=== PATIENT | female | born 1935 | race Caucasian/White ===

== ENCOUNTER → 2017-08-04 09:27 | Outpatient (CLI) | payer MEDICARE, SELFPAY ==
[2017-08-04 12:10] LABS: Anion Gap 8 (5-15); BUN 13 mg/dL (7-18); BUN/Creat Ratio 15.6 RATIO (10-20); Calcium,Total 9.1 mg/dL (8.5-10.1); Chloride 100 mmol/L (98-107); Creatinine, Serum 0.84 mg/dL (0.55-1.02); EST Glomerular Filtration Rate 70 mL/min (>60); Est Glom Filt Rate - Afr Amer 84 mL/min (>60); Glucose 106 mg/dL (74-106); Potassium 3.8 mmol/L (3.5-5.1); Sodium Level 134 mmol/L (136-145)
== END ==
PROVIDERS: Family Provider Family Medicine; PCP Family Medicine; Visit Provider Family Medicine
DX: E11.9 Type 2 diabetes mellitus without complications (principal)
CPT/HCPCS: 36415; 80048

== ENCOUNTER → 2018-02-23 08:37 | Outpatient (CLI) | payer MEDICARE, SELFPAY ==
[2018-02-23 10:45] LABS: ALB/GLOB Ratio 1.1 RATIO (0.9-2.4); AST(SGOT) 19 U/L (15-37); Alanine Aminotransfer ALT/SGPT 21 U/L (13-56); Albumin, Serum 3.7 g/dL (3.2-5.0); Alkaline Phosphatase 61 U/L (45-117); Anion Gap 8 (5-15); BUN 13 mg/dL (7-18); BUN/Creat Ratio 14.9 RATIO (10-20); Calcium,Total 8.6 mg/dL (8.5-10.1); Chloride 98 mmol/L (98-107); Creatinine, Serum 0.88 mg/dL (0.55-1.02); EST Glomerular Filtration Rate 66 mL/min (>60); Est Glom Filt Rate - Afr Amer 80 mL/min (>60); Globulin 3.4 g/dL (2.2-4.2); Glucose 101 mg/dL (74-106); Potassium 3.9 mmol/L (3.5-5.1); Protein, Total 7.1 g/dL (6.4-8.2); Sodium Level 135 mmol/L (136-145); Thyroid Stim Hormone (TSH) 1.26 uIU/mL (0.358-3.74)
== END ==
PROVIDERS: Family Provider Family Medicine; PCP Family Medicine; Visit Provider Family Medicine
DX: E11.9 Type 2 diabetes mellitus without complications (principal)
CPT/HCPCS: 36415; 80053; 84443

== ENCOUNTER → 2018-10-25 | Outpatient (CLI) | payer MEDICARE, SELFPAY ==
[2016-06-07 09:20] VITALS: BMI 24.7
--- NOTE | 2018-10-25 09:05 | RAD_ITS ---
STUDY: X-RAY - ABDOMEN/PELVIS REASON FOR EXAM: Female, 82 years old. Constipation TECHNIQUE: AP supine and upright views of the abdomen and pelvis. COMPARISON: None. FINDINGS: There is no bowel obstruction. There is air and stool to the level of the rectum. There is a large amount of stool in the colon, consistent with constipation. There is no free air. There are degenerative changes noted in the spine. RAD/Abd Inc Decub and/or Erect IMPRESSION: No bowel obstruction. Constipation. Electronically Signed: Bk Almeida, at 17:57 EDT Tel , Service support ,
== END | disposition home or self-care (01) ==
LOC: MTRAD 08:54
PROVIDERS: Family Provider Family Medicine; PCP Family Medicine; Referring Provider Family Medicine; Visit Provider Family Medicine
DX: K59.00 Constipation, unspecified (principal)
CPT/HCPCS: 74019

== ENCOUNTER → 2019-01-07 07:31 | Outpatient (CLI) | payer MEDICARE, SELFPAY ==
--- NOTE | 2019-01-07 07:34 | CDU_ITS ---
Reason For Study: Carotid Stenosis Rt. Velocities/BP Lt. Velocities/BP Prox CCA 61.7/10.8 cm/sec. Prox CCA 73/8.8 cm/sec. Mid CCA 76/12.1 cm/sec. Mid CCA 65.5/9.7 cm/sec. Dist CCA 66.9/12.1 cm/sec. Dist CCA 73/9.7 cm/sec. Prox ICA 71.6/12.6 cm/sec. Prox ICA 51.3/6.9 cm/sec. Mid ICA 86.3/18.8 cm/sec. Mid ICA 79.4/10.2 cm/sec. Dist ICA 103.5/22.5 cm/sec. Dist ICA 87.1/13.5 cm/sec. Rt. ICA/CCA = 1.5. Lt. ICA/CCA = 1.2. Prox ECA 124.8 cm/sec. Prox ECA 82.7 cm/sec. Rt. Vert. 30.1/4.5 cm/sec. Lt. Vert. 59.7/9.1 cm/sec. Right Extracranial There is homogeneous, smooth atherosclerotic plaque noted in the right common carotid artery. There is heterogeneous, irregular atherosclerotic plaque noted in the right internal carotid artery. The atherosclerotic plaque causes acoustic shadowing. There is heterogeneous, irregular atherosclerotic plaque noted in the right external carotid artery. Antegrade flow is noted in the right vertebral artery. Left Extracranial There is homogeneous, smooth atherosclerotic plaque noted in the left common carotid artery. There is heterogeneous, irregular atherosclerotic plaque noted in the left internal carotid artery. There is homogeneous, smooth atherosclerotic plaque noted in the left external carotid artery. Antegrade flow is noted in the left vertebral artery. Procedure Carotid Duplex 57593. Exam performed in department. Interpretation Summary Irregular calcific plague at the proximal right internal and external carotids. <50% stenosis right internal carotid <50% stenosis right external carotid Post-operative changes left carotid bulb and proximal internal carotid with <50% stenosis <50% stenosis left external carotid Patent and antegrade vertebrals bilaterally Ordering Physician: Noble Ball Referring Physician: Mc Marks MD Performed By: Daina Arvizu RVT
== END ==
PROVIDERS: Family Provider Family Medicine; PCP Family Medicine; Referring Provider Surgery; Visit Provider Surgery
DX: I65.23 Occlusion and stenosis of bilateral carotid arteries (principal)
CPT/HCPCS: 93880

== ENCOUNTER → 2019-04-15 08:04 | Outpatient (CLI) | payer MEDICARE, SELFPAY ==
[2019-02-01 14:01] VITALS: BMI 24.7
[2019-04-15 10:40] LABS: ALB/GLOB Ratio 1.1 RATIO (0.9-2.4); AST(SGOT) 18 U/L (15-37); Alanine Aminotransfer ALT/SGPT 21 U/L (13-56); Albumin, Serum 3.9 g/dL (3.2-5.0); Alkaline Phosphatase 68 U/L (45-117); Anion Gap 6 (5-15); BUN 16 mg/dL (7-18); BUN/Creat Ratio 19.8 RATIO (10-20); Calcium,Total 9.3 mg/dL (8.5-10.1); Chloride 99 mmol/L (98-107); Cholesterol 245 mg/dL (200); Creatinine, Serum 0.81 mg/dL (0.55-1.02); EST Glomerular Filtration Rate 72 mL/min (>60); Est Glom Filt Rate - Afr Amer 87 mL/min (>60); Globulin 3.5 g/dL (2.2-4.2); Glucose 113 mg/dL (74-106); High Density Lipoprotein 61 mg/dL; Potassium 3.9 mmol/L (3.5-5.1); Protein, Total 7.4 g/dL (6.4-8.2); Sodium Level 135 mmol/L (136-145); Thyroid Stim Hormone (TSH) 1.79 uIU/mL (0.358-3.74); Triglycerides 227 mg/dL; Very Low Density Lipoprotein 45 mg/dL (5-40)
== END ==
PROVIDERS: Family Provider Family Medicine; PCP Family Medicine; Referring Provider Family Medicine; Visit Provider Family Medicine
DX: E11.9 Type 2 diabetes mellitus without complications (principal)
CPT/HCPCS: 36415; 80053; 80061; 84443

== ENCOUNTER 2019-05-10 09:16 | Observation (INO) | payer MEDICARE, SELFPAY ==
[2019-02-01 14:01] VITALS: BMI 24.7
[2019-04-28 13:43] VITALS: BMI 24.5
[2019-05-10] VITALS (13 sets, daily range): BP systolic 104–175; BP diastolic 46–74; PULSE 52–87; RESP 16–18; TEMP 36.4–37; O2SAT 94–100; BMI 24.3
[2019-05-10] MEDS: Lactated Ringers 1,000 ML 100 ML IV (06:21)
[2019-05-10 06:25] LABS: Bedside Glucose 109 mg/dL (70-110)
[2019-05-10 06:25] LABS: Hematocrit 36.2 % (37-47); Hemoglobin 11.8 g/dL (12.0-15.0); Mean Corp Hgb Conc 32.6 g/dL (32-36); Mean Corpuscular Hgb 29.8 pg (27.0-32.0); Mean Corpuscular Volume 91.4 fL (81-99); Mean Platelet Vol. 8.6 fl (6.2-12.0); Platelet Count 306 K/mm3 (150-450); RBC Distribution Width CV 12.7 % (11.6-14.6); RBC Distribution Width SD 41.9 fl (35.1-43.9); Red Blood Count 3.96 M/mm3 (4.2-5.4); White Blood Count 6.7 K/mm3 (4.4-11.0)
--- NOTE | 2019-05-10 07:43 | OP.PCM_ITS ---
Problem List (1) Cystocele Status: Acute (2) Rectocele Status: Acute (3) Incomplete prolapse of vaginal vault Status: Acute Comment: puja consult. Report of Operation Date of Procedure: 05/10/19 Pre-Operative Diagnosis: Cystocele, rectocele, vaginal vault prolapse Post-Operative Diagnosis: Same Surgery/Procedure Performed:: Anterior repair with dermis, bilateral sacrospinous ligament fixation, posterior repair, cystoscopy Type of Anesthesia:: General Special Medications: Ancef Specimen's removed: none Estimated Blood Loss (mL): 25cc Description of Procedure: The patient is an 83-year-old female with vaginal vault prolapse, cystocele and rectocele who presented to the office for evaluation and management. After discussing the risks benefits and alternatives, she decided to proceed with surgical intervention. She underwent urodynamics and office cystoscopy in preparation. She was seen by cardiology and a low risk assessment was given. Informed consent was obtained. She was taken to the operating room and placed on the operating room table. Anesthesia monitored the head, neck, airway, IV access and vital signs throughout the case. Once anesthesia was administered, the patient was prepped and draped in usual sterile fashion. She was in dorsal lithotomy position. A White catheter was inserted and the bladder was drained. She was placed into Trendelenburg. The anterior vaginal wall was injected submucosally with 10 cc of 1% lidocaine with epinephrine. A midline incision vertical approximately 2 cm in length was made. Sharp and blunt dissection was then performed until bilaterally the ischial spines and sacrospinous ligaments were identified and cleaned from surrounding tissues. Using the Capio device, sutures were placed through the sacrospinous ligaments and were brought through the dermis graft and then full-thickness through the vaginal apex. The remainder of the dermis was sutured into position using 2-0 Vicryl. The midline incision was then closed with running interlocking 2-0 Vicryl. The Ethibond sutures were tied and the prolapse was resolved. At this time attention was turned to the posterior vaginal wall which was injected submucosally with 1% lidocaine with epinephrine. A midline incision was made and sharp and blunt dissection was then performed until the rectovaginal fascia was identified bilaterally. This was brought together in a 2 layer closure using interrupted Vicryl. The perineal body was reinforced with 2-0 Vicryl. The vaginal mucosa was then closed with running interlocking 2-0 Vicryl. A cystourethroscopy was then performed revealing no entrance into the urinary bladder or urethra with foreign material. There were no abnormalities of the bladder mucosa. Bilateral ureteral jets were observed. The White catheter was then replaced. The vagina was filled with Premarin cream and vaginal packing. The patient was then awakened and taken to the recovery room in good condition. There were no complications during this procedure. Grafts/Implants Used: Dermis ([place]) - Complications None - Admit VTE Documentation VTE Present on Admission: Yes VTE Mechan Device Prophylaxis: SCD's VTE Pharm Prophylaxis ordered?: Yes
[2019-05-10] MEDS: Cefazolin 2 GM in 0.9% Normal Saline 100 ML IV (07:59)
[2019-05-10] MEDS: Lubricating Jelly 60 GM Tube 30 GM TOPICAL (08:00)
[2019-05-10 08:01] LABS: Hemoglobin A1c 6.1 % (4.2-6.3)
[2019-05-10] MEDS: Estrogens,Conj. 1 Tube 1 DOSE (09:10)
--- NOTE | 2019-05-10 09:42 | DCINST_ITS ---
Discharge Diet: No Restrictions Discharge Activity: May Not Drive, May Shower - no tub bathing, no swimming May resume sexual activity in: 8 weeks Additional Activity Instructions:: no strenuous activity or exercise. no lifting over 5 pounds, no vacuuming Call your doctor if your incision/area has: Continuous Slow Oozing, Sudden Increased Bleeding, Foul Smelling Discharge Call your doctor if you observe: Fever of 101 or Higher, Inability to urinate, Inability to have a bowel movement, Calf discomfort, Uncontrolled pain Allergies/Adverse Reactions: Allergies pravastatin Adverse Reaction (Severe, Verified 05/04/19 09:24) myalgias Sulfa (Sulfonamide Antibiotics) Adverse Reaction (Mild, Verified 05/04/19:24) it didnt work atorvastatin Adverse Reaction (Verified 05/04/19:24) myalgias Medications to take at Discharge Aspirin [Aspirin, Baby] 81 mg PO DAILY@0800 06/07/16 Clopidogrel Bisulfate [Plavix] 75 mg PO DAILY 06/07/16 Hydrochlorothiazide [Hctz] 25 mg PO DAILY 06/07/16 metFORMIN HCl [Glucophage] 500 mg PO BIDCM 06/07/16 coenzyme Q10 10 mg capsule 10 mg PO ONCE 01/11/19 nitroglycerin 0.4 mg sublingual tablet 0.4 mg SUBLINGUAL Q5-15M 01/11/19 multivitamin 1 tab PO DAILY 04/28/19 omega-3 fatty acids 1,000 mg capsule 1,000 mg PO DAILY 04/28/19 lisinopril 20 mg tablet 20 mg PO BID tab 04/29/19 metoprolol tartrate 25 mg tablet 25 mg PO TID tab 04/29/19 Primary Care Physician: Tre Marks MD [Primary Care Provider] - Test Results: Test results from this visit will be discussed in further detail at your follow- up appointment, if applicable. Please Follow Up With: Denisse Brown MD When: call office for appt Proposed Discharge Date: 05/11/19
[2019-05-10 09:46] LABS: Bedside Glucose 140 mg/dL (70-110)
[2019-05-10] MEDS: Ketorolac 15 MG/ML Vial IV ×2 (10:01→23:35)
[2019-05-10] MEDS: Dextrose 5%-Lactated Ringers 1,000 ML 100 ML IV ×2 (10:56→20:10)
[2019-05-10 12:30] LABS: Bedside Glucose 143 mg/dL (70-110)
[2019-05-10] MEDS: Metoprolol Tartrate 25 MG Tablet PO ×2 (13:06→21:06)
[2019-05-10] MEDS: hydroCHLOROthiazide 25 MG Tablet PO (13:06)
[2019-05-10 17:11] LABS: Bedside Glucose 129 mg/dL (70-110)
[2019-05-10] MEDS: metFORMIN HCl 500 MG Tablet PO (17:59)
[2019-05-10] MEDS: Lisinopril 20 MG Tablet PO (21:06)
[2019-05-10] MEDS: Cephalexin 500 MG Capsule PO (21:06)
[2019-05-10 21:16] LABS: Bedside Glucose 165 mg/dL (70-110)
[2019-05-10] MEDS: 0.9% Saline Lock 10 ML Syringe IV (23:37)
[2019-05-11 02:10] VITALS: BP 151/59; PULSE 65; RESP 16; TEMP 36.3; O2SAT 97
[2019-05-11 05:42] VITALS: BP 163/59; PULSE 60; RESP 16; TEMP 36.4; O2SAT 97
[2019-05-11 05:43] VITALS: PULSE 60
[2019-05-11] MEDS: Metoprolol Tartrate 25 MG Tablet PO ×2 (05:43→15:11)
[2019-05-11] MEDS: 0.9% Saline Lock 10 ML Syringe IV (05:44)
[2019-05-11] MEDS: Enoxaparin 40 MG/0.4 ML Syringe SC (05:44)
[2019-05-11 07:26] LABS: Bedside Glucose 117 mg/dL (70-110)
--- NOTE | 2019-05-11 08:18 | PCM.PN.BLA ---
Progress Note Sofia is sitting up in bed comfortable in no acute distress. She did well overnight and was up to the side chair. No nausea or vomiting, pain is controlled. She is reporting a significant amount of flatus, she did have coleslaw for dinner. White catheter removed, vaginal packing removed. Assessment and plan Postop day #1 vaginal reconstruction no sling Trial of void today Home later today STROKE Vital Signs/Narrative: Vital Signs Temp Pulse Resp BP Pulse Ox 05/11/19 05:43 60 05/11/19 05:42 97.6 F L 60 16 163/59 H 97
[2019-05-11] MEDS: HYDROcodone Bitartrate/Apap 5/325 Tablet PO (08:42)
[2019-05-11] MEDS: metFORMIN HCl 500 MG Tablet PO ×2 (08:43→16:39)
[2019-05-11] MEDS: Aspirin 81 MG TAB.CHEW PO (08:43)
[2019-05-11] MEDS: Cephalexin 500 MG Capsule PO (08:43)
[2019-05-11] MEDS: hydroCHLOROthiazide 25 MG Tablet PO (08:43)
[2019-05-11] MEDS: Lisinopril 20 MG Tablet PO (08:44)
[2019-05-11] MEDS: Clopidogrel Bisulfate 75 MG Tablet PO (08:44)
[2019-05-11 08:45] VITALS: BP 128/52; PULSE 52; RESP 18; TEMP 36.7; O2SAT 98
--- NOTE | 2019-05-11 09:51 | CASEMGMT ---
Intro role of CM to patient and [facility] form explained re: Observation status for treatment of surgical procedure. Explained hospitalization will be paid per?[facility] policy for Outpatient billing?and condition will continue to be evaluated for Inpt necessity. Also let pt know that [facility] sends paper in the billing packet with their phone number if questions arise. Discussed Pharmacy section of [facility] form and self administered medication guideline.? Pt verbalizes understanding and does not have further questions. Form signed and placed in chart, copy to pt. LEOBARDO RAMIRES BSN CM
[2019-05-11 12:10] LABS: Bedside Glucose 162 mg/dL (70-110)
[2019-05-11 15:10] VITALS: BP 144/63; PULSE 67; RESP 16; TEMP 37.2; O2SAT 98
[2019-05-11 15:11] VITALS: PULSE 67
[2019-05-11 17:06] LABS: Bedside Glucose 108 mg/dL (70-110)
== END 2019-05-11 18:19 | disposition home or self-care (01) ==
LOC: SDC 09:42 → MS3 09:42
PROVIDERS: Anesthesiology; Admitting Provider Urology; Family Provider Family Medicine; PCP Family Medicine; Referring Provider Urology; Visit Provider Urology
PROC: (CPT 57260; principal; 2019-05-10 07:15)
DX: N99.3 Prolapse of vaginal vault after hysterectomy (principal); N95.2 Postmenopausal atrophic vaginitis; I45.10 Unspecified right bundle-branch block; I10 Essential (primary) hypertension; I25.10 Atherosclerotic heart disease of native coronary artery without angina pectoris; E11.51 Type 2 diabetes mellitus with diabetic peripheral angiopathy without gangrene; Z87.891 Personal history of nicotine dependence; Z79.899 Other long term (current) drug therapy; Z95.5 Presence of coronary angioplasty implant and graft; Z79.84 Long term (current) use of oral hypoglycemic drugs; Z79.82 Long term (current) use of aspirin; Z79.02 Long term (current) use of antithrombotics/antiplatelets; M19.90 Unspecified osteoarthritis, unspecified site
CPT/HCPCS: 57260; 57282; 36415; 82962; 83036; 85027; 99251; J7120; A4216; G0463; J2405

== ENCOUNTER → 2019-05-13 11:08 | Outpatient (CLI) | payer MEDICARE, SELFPAY ==
[2019-05-10 06:12] VITALS: BMI 24.3
--- NOTE | 2019-05-13 11:12 | RAD_ITS ---
STUDY: X-RAY - ACUTE ABDOMINAL SERIES REASON FOR EXAM: Female, 83 years old. BLADDER SURGERY 3 DAYS AGO, PAIN, NAUSEA TECHNIQUE: Single view of the chest. Supine, and erect view(s) of the abdomen were obtained. COMPARISON: None. FINDINGS: The lungs are clear and expanded. Normal size heart. Normal mediastinum and sujey. Normal visualized pulmonary arteries. There is atherosclerotic calcification of the aortic arch with tortuosity. There is a non-specific bowel gas pattern. The soft tissue structures of the abdomen and pelvis are unremarkable. There are diffuse degenerative changes of the visualized lumbar spine. There are vascular iliofemoral calcifications. RAD/Acute Abd Inc Chest (Portable) IMPRESSION: 1. Nonobstructive bowel gas pattern. 2. Nonacute Chest xray. 3. Degenerative changes of the lumbar spine. 4. Atherosclerosis. Electronically Signed: Rasta Johnston MD (Brooks) at 11:38 EST , Service support ,
[2019-05-13 14:01] LABS: Hematocrit 34.5 % (37-47); Hemoglobin 12.3 g/dL (12.0-15.0); Mean Corp Hgb Conc 35.7 g/dL (32-36); Mean Corpuscular Hgb 29.6 pg (27.0-32.0); Mean Corpuscular Volume 83.1 fL (81-99); Mean Platelet Vol. 9.4 fl (6.2-12.0); Platelet Count 365 K/mm3 (150-450); RBC Distribution Width CV 12.2 % (11.6-14.6); RBC Distribution Width SD 37.2 fl (35.1-43.9); Red Blood Count 4.15 M/mm3 (4.2-5.4); White Blood Count 11.9 K/mm3 (4.4-11.0)
[2019-05-13 14:16] LABS: Scan Indicated on CBC? Y/N NO
[2019-05-13 14:20] LABS: Anion Gap 10 (5-15); BUN 9 mg/dL (7-18); BUN/Creat Ratio 10.7 RATIO (10-20); Calcium,Total 8.7 mg/dL (8.5-10.1); Chloride 76 mmol/L (98-107); Creatinine, Serum 0.84 mg/dL (0.55-1.02); EST Glomerular Filtration Rate 69 mL/min (>60); Est Glom Filt Rate - Afr Amer 83 mL/min (>60); Glucose 158 mg/dL (74-106); Sodium Level 112 mmol/L (136-145)
== END ==
PROVIDERS: Family Provider Family Medicine; PCP Family Medicine; Referring Provider Urology; Visit Provider Urology
DX: N81.6 Rectocele (principal); N81.10 Cystocele, unspecified
CPT/HCPCS: 36415; 74022; 80048; 85027

== ENCOUNTER 2019-05-13 15:19 | Inpatient (IN) | payer MEDICARE, SELFPAY ==
[2019-05-10 06:12] VITALS: BMI 24.3
[2019-05-13] VITALS (19 sets, daily range): BP systolic 138–219; BP diastolic 47–115; PULSE 64–82; RESP 10–24; TEMP 36.7–36.9; O2SAT 95–100; BMI 24.7; BMI 24.8; BMI 24.6
--- NOTE | 2019-05-13 15:39 | EKG12_ITS ---
Test Reason : Blood Pressure : / mmHG Vent. Rate : 072 BPM Atrial Rate : 072 BPM P-R Int : 154 ms QRS Dur : 134 ms QT Int : 452 ms P-R-T Axes : 075 079 076 degrees QTc Int : 494 ms Sinus rhythm with occasional Premature ventricular complexes Right bundle branch block Septal infarct , age undetermined Abnormal ECG Confirmed by JENN HANNON, ELTON ([id number]), multimedia editor PEYTON ARMENDARIZ ([id number]) on 05/16/2019 1:35:02 PM Referred By: Henrietta Howell Confirmed By:ELTON BARAJAS MD
--- NOTE | 2019-05-13 15:41 | ED.DCSUM_ITS ---
- ER Visit Summary Date of Service: 05/13/19 Chief Complaint: Abnormal labs History of Present Illness: The patient is a 83 F presenting for abnormal labs. Patient had surgery per Dr. Brown 2 days ago for cystocele, rectocele, vaginal prolapse. She was seen for follow-up in the office today. She was complaining of generalized weakness and fatigue. Outpatient blood work was obtained and showed a sodium of 112, potassium 3.0. Abdominal series was obtained which was unremarkable. She was advised to go to the ED for admission. Family states that she has had unsteady gait. She denies falls. She has nausea, vomiting, diarrhea. Denies blood in her stool. Denies fever. Denies chest pain or saira rtness of breath. Denies other complaints. Physical Examination: Vitals are stable. Patient is afebrile. Alert no acute distress. HEENT exam is unremarkable. Neck is supple. Lungs are clear and equal bilaterally. Heart is regular rate and rhythm. Abdomen is soft nontender nondistended. Extremities are unremarkable. Skin is warm and dry. No focal neurologic deficit. Remainder of exam is unremarkable. Emergency Department Course and Treatment: Patient was given IV fluids, Zofran. Outpatient labs were reviewed and show white count 11.9, chemistries show sodium 112, potassium 3.0, glucose 158. Discussed with hospitalist for admission. Disposition: Admission Impression: Hyponatremia This note was generated with Pro[employer]eno dictation software. It may contain incorrect words, spelling, and punctuation that were not noted in review of the chart prior to signing ED Disposition - Plan for ED Patient: Referrals: Tre Marks MD [Primary Care Provider] -
--- NOTE | 2019-05-13 16:04 | HP.PCM_ITS ---
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 (11) Peripheral arterial occlusive disease Status: Chronic History of Present Illness Date of Admission: 05/13/19 Chief Complaint: Intractable nausea, vomiting. The patient is a 83 year old F who presents emergency room due to intractable nausea and vomiting. Patient underwent pelvic floor reconstruction secondary to cystocele, rectocele and vaginal prolapse 05/10/[address] Brown. Following discharge home, patient reports she developed nausea and vomiting. She has not been able to keep down food or liquids. She denies diarrhea. Denies dizziness, lightheadedness. Denies confusion. Reports tremors. Denies fever. Denies abdominal pain or urinary symptoms. She states her rectum area is tender following surgery. Patient states she was on cephalexin prophylactically following surgery however she was told to stop taking this. She has a past medical history of hypertension, CAD status post stent, type 2 diabetes mellitus, PAD, carotid stenosis. Past Medical History Past Medical History (Chronic Problems): Chronic Problems (Last Reviewed 04/28/19 @ 13:51 by Melody Mckeon) Cystocele (Chronic) Rectocele (Chronic) Type 2 diabetes mellitus (Chronic) Presence of stent in coronary artery (Chronic ~07/04/11) PCI/stent to LAD 2007; PCI/GUDELIA to instent restenosis of the LAD 07/04/11 Essential hypertension (Chronic) RBBB (right bundle branch block) (Chronic) Atherosclerotic heart disease of [place] coronary artery without angina pectoris (Chronic) PAD (peripheral artery disease) (Chronic) Carotid stenosis, bilateral (Chronic) Incomplete prolapse of vaginal vault (Chronic) puja consult. Peripheral arterial occlusive disease (Chronic) Medical History: Medical History (Last Reviewed 12/05/19 @ 13:51 by Melody Mckeon) Type 2 diabetes mellitus (Chronic) E11.9 Presence of stent in coronary artery (Chronic) Onset Date: ~07/04/11 Z95.5 PCI/stent to LAD 2007; PCI/GUDELIA to instent restenosis of the LAD 07/04/11 Essential hypertension (Chronic) I10 RBBB (right bundle branch block) (Acute) I45.10 Atherosclerotic heart disease of [place] coronary artery without angina pectoris (Chronic) I25.10 PAD (peripheral artery disease) (Chronic) I73.9 Carotid stenosis, bilateral (Chronic) I65.23 Peripheral arterial occlusive disease (Chronic) I77.9 Hyperlipidemia E78.5 TIA (transient ischemic attack) G45.9 Osteoarthritis M19.90 BBB (bundle branch block) I45.4 Carotid stenosis, bilateral (Inactive) I65.23 Diabetes E11.9 HTN (hypertension) I10 Allergies pravastatin Adverse Reaction (Severe, Verified 05/13/19 15:20) myalgias Sulfa (Sulfonamide Antibiotics) Adverse Reaction (Mild, Verified 05/13/19 15:20) it didnt work atorvastatin Adverse Reaction (Verified 05/13/19 15:20) myalgias Home Medications: Ambulatory Orders Medication Instructions Recorded Aspirin [Aspirin, Baby] 81 mg PO DAILY@0800 06/07/16 Clopidogrel Bisulfate [Plavix] 75 mg PO DAILY 06/07/16 Hydrochlorothiazide [Hctz] 25 mg PO DAILY 06/07/16 coenzyme Q10 10 mg capsule 10 mg PO ONCE 01/11/19 nitroglycerin 0.4 mg sublingual 0.4 mg SUBLINGUAL Q5-15M 01/11/19 tablet multivitamin 1 tab PO DAILY 04/28/19 omega-3 fatty acids 1,000 mg 1,000 mg PO DAILY 04/28/19 capsule lisinopril 20 mg tablet 20 mg PO BID tab 04/29/19 metoprolol tartrate 25 mg tablet 25 mg PO TID tab 04/29/19 Cephalexin 500 mg PO BID 05/13/19 Metformin HCl [Metformin HCl ER] 500 mg PO BID 05/13/19 Ondansetron [Zofran] 8 mg PO Q8H PRN 05/13/19 Surgical History: Surgical History (Last Reviewed 05/13/19 @ 16:06 by SHANIQUE Hall) Status post peripheral artery angioplasty Z98.62 Presence of coronary angioplasty implant and graft Onset Date: ~07/04/11 Z95.5 PCI/stent to LAD 2007; PCI/GUDELIA to instent restenosis of the LAD 07/04/11 Cataract extraction status of right eye Z98.41 History of hemorrhoidectomy Z98.890 History of hysterectomy Z90.710 History of left-sided carotid endarterectomy Z98.890 History of heart artery stent Z95.5 Surgical History: - - Pelvic floor reconstruction Psychiatric History: No pertinent psych hx GUT CLEANER History: No pertinent GUT CLEANER history Lives: With Family Smoking Status: Former smoker Alcohol: Occasional Drugs: None - *Family History Maternal Family History: Family History (Last Reviewed 05/13/19 @ 16:09 by SHANIQUE Hall) Father Diabetes Heart disease Brother Diabetes Colon cancer Brother Diabetes History Items: - - Dementia Paternal Family History: Family History (Last Reviewed 05/13/19 @ 16:09 by SHANIQUE Hall) Father Diabetes Heart disease Brother Diabetes Colon cancer Brother Diabetes Review of Systems Constitutional: Reports: Chills, Malaise. Denies: Fever HEENT: Denies: Head Aches, Sinus Congestion, Sinus Drainage Cardiovascular: Denies: Chest Pain, Edema, Light Headedness, Palpitations, Syncope Respiratory: Denies: Cough, Shortness of breath at rest, Sputum production Gastrointestinal: Reports: Nausea, Vomiting. Denies: Abdominal Pain, Constipation, Diarrhea Genitourinary: Denies: Dysuria Musculoskeletal: Denies: Joint Pain, Joint Tenderness Skin: Denies: Rash, Wounds Neurological: Denies: Numbness, Tingling, Focal weakness Psychiatric: Denies: Anxiety, Depression, Homicidal Ideations, Suicidal Ideations Hematologic/ Lymphatic: Denies: Easy Bruising, Easy Bleeding VTE Information - Inpt Only VTE Present on Admission: No VTE Mechan Device Prophylaxis: None VTE Pharm Prophylaxis ordered?: Yes - Physical Exam Vitals/I&O's: Vital Signs Temp Pulse Resp BP Pulse Ox 98.2 F 71 16 168/115 H 95 05/13/19 15:21 05/13/19 15:21 05/13/19 15:21 05/13/19 15:21 05/13/19 15:21 Oxygen Delivery Method Room Air Weight: 144 lb 6.444 oz Body Mass Index (BMI) 24.7 General: Alert, Oriented x3, Cooperative HEENT: Atraumatic, PERRLA, EOMI, Normocephalic Oral: Dry Mucosa Neck: Supple, No JVD, Negative Carotid Bruits Lungs: Clear to auscultation, Normal air movement Cardiovascular: Regular rate, Regular Rhythm, Normal S1, Normal S2, No murmurs Abdomen: Bowel Sounds Present, Soft, Non Tender, Non-Distended Extremities: No clubbing, No cyanosis, No edema Skin: No rashes, No breakdown Musculoskeletal: No Tenderness to Palpation of Joints or Extremities Neurological: Cranial nerves II-XII grossly intact, Neuro grossly intact Psych/Mental Status: Normal Affect, Appropriate Current Medications Sodium Chloride () 1,000 mls @ 999 mls/hr IV .Q1H1M ONE Stop: 05/13/19 16:39 Assessment/Plan 1. Severe hyponatremia with associated nausea and vomiting-unclear etiology. 3% normal saline at 75 cc an hour for 250 repeat BMP in 3 hours and then every 4 hour BMP. Obtain urine urea, serum cortisol and UA. CT of brain. Hold HCTZ and lisinopril. PRN antiemetic regimen. 2. Hypokalemia-replace per protocol. Trend BMP. HCTZ on hold. 3. A/P pelvic floor reconstruction secondary to cystocele, rectocele and vaginal prolapse 05/10/[address] Brown. 4. Hypertension-hold HCTZ and lisinopril regimen. Continue metoprolol regimen. PRN hydralazine for systolic blood pressure greater than 160. 5. CAD status post stent-continue aspirin, Plavix, metoprolol. Allergy to statin. 6. Type 2 diabetes mellitus-every 6 Accu-Cheks with sliding scale insulin. Hold home metformin regimen. 7. PAD-continue aspirin, statin allergy. 8. Carotid stenosis- follows with Dr. Ball. Status post left carotid endarterectomy 2012. Carotid duplex ultrasound December 2018 showed less than 50% stenosis bilateral internal and external carotid arteries. DVT prophylaxis- Lovenox sc CODE STATUS: DNR CCA, no intubation. Discussed with daughter (POA) and patient. This patient was seen by SHANIQUE Hall under the supervision of Dr. Howell.
[2019-05-13] MEDS: Ondansetron 4 MG/2 ML Vial IV (16:25)
[2019-05-13] MEDS: 0.9% Normal Saline 1,000 ML 999 ML IV (16:25)
--- NOTE | 2019-05-13 16:37 | CT_ITS ---
STUDY: CT BRAIN WITHOUT CONTRAST REASON FOR EXAM: Female, 83 years old. Nausea/vomiting, severe hyponatremia. Hx hypertension, diabetes. RADIATION DOSAGE (If Supplied By Facility): CTDIvol = ( 44.99 ) mGy, DLP = ( 745.49 ) mGycm TECHNIQUE: Transaxial CT imaging of the brain was performed without administration of intravenous contrast material. Individualized dose optimization techniques were used for this CT. COMPARISON: No relevant priors. FINDINGS: Normal soft tissue structures. Normal calvarium. Normal size ventricles and extra-axial spaces for the patient''s age. Normal white matter tracts of the cerebral hemispheres. Normal basal ganglia and thalami. Normal brainstem. Normal cerebellum. There is no intracranial hemorrhage. There are no findings of an acute ischemic infarction. Normal visualized paranasal sinuses. CT/Brain/Head without Contrast IMPRESSION: Normal unenhanced CT scan of the brain. Electronically Signed: Tino Alcantar MD at 17:50 EST , Service support ,
[2019-05-13] MEDS: Sodium Chloride 3% 500 ML 60 ML IV (17:50)
[2019-05-13] MEDS: Potassium Chloride 10mEq/100mL 10 MEQ/100 ML IV.SOLN. 100 MEQ IV BOLUS ×4 (17:53→23:12)
[2019-05-13] MEDS: hydrALAZINE 20 MG/ML Vial 5 MG IV (18:24)
[2019-05-13 18:25] LABS: Bacteria 0 SEEN /hpf (None Seen); Mucous, Urine 0 SEEN /hpf (<or=2+)
[2019-05-13 18:27] LABS: Color, Urine Yellow (Yellow); Glucose, Dipstick 100 mg/dl (Normal); Ketone-Dipstick 15 mg/dl (Negative); Leukocyte Esterase-Dipstick 25 /ul (Negative); Nitrite-Dipstick Negative (Negative); Occult Blood-Urine 250 /ul (Negative); Protein-Dipstick 100 mg/dl (Negative); Specific Gravity, Urine 1.015 (1.002-1.030); Urine Bilirubin Dipstick Negative (Negative); Urine Clarity Clear (Clear); Urine Urobilinogen Normal (Normal)
[2019-05-13 18:32] LABS: Red Blood Cells-Urine 25-50 SEEN /hpf (0-5); Urea Nitrogen, Urine 386 mg/dL (NO RANGE EST.)
[2019-05-13 18:33] LABS: Squamous Epithelial Cells - UA 0-5 SEEN /hpf (5-10); White Blood Cells 0-5 SEEN /hpf (0-5)
[2019-05-13 20:06] LABS: Bedside Glucose 133 mg/dL (70-110)
[2019-05-13 20:33] LABS: Anion Gap 9 (5-15); BUN 9 mg/dL (7-18); BUN/Creat Ratio 13.8 RATIO (10-20); Calcium,Total 7.6 mg/dL (8.5-10.1); Chloride 84 mmol/L (98-107); Creatinine, Serum 0.65 mg/dL (0.55-1.02); EST Glomerular Filtration Rate 92 mL/min (>60); Est Glom Filt Rate - Afr Amer 111 mL/min (>60); Estimated Creatinine Clearance 36.81 ml/min; Glucose 116 mg/dL (74-106); Sodium Level 117 mmol/L (136-145)
[2019-05-13] MEDS: Metoprolol Tartrate 25 MG Tablet PO (22:02)
[2019-05-13] MEDS: Aspirin 81 MG TAB.CHEW PO (22:03)
[2019-05-13] MEDS: 0.9% Saline Lock 10 ML Syringe IV (22:03)
[2019-05-13 22:45] LABS: Anion Gap 9 (5-15); BUN 8 mg/dL (7-18); BUN/Creat Ratio 12.6 RATIO (10-20); Calcium,Total 7.8 mg/dL (8.5-10.1); Chloride 86 mmol/L (98-107); Creatinine, Serum 0.64 mg/dL (0.55-1.02); EST Glomerular Filtration Rate 95 mL/min (>60); Est Glom Filt Rate - Afr Amer 115 mL/min (>60); Estimated Creatinine Clearance 36.81 ml/min; Glucose 105 mg/dL (74-106); Potassium 3.1 mmol/L (3.5-5.1); Sodium Level 119 mmol/L (136-145)
[2019-05-14] VITALS (30 sets, daily range): BP systolic 100–169; BP diastolic 30–123; PULSE 56–79; RESP 14–23; TEMP 36.4–36.8; O2SAT 98–100
[2019-05-14] MEDS: 0.9% Normal Saline 1,000 ML 75 ML IV (00:04)
[2019-05-14 00:21] LABS: Bedside Glucose 112 mg/dL (70-110)
[2019-05-14 00:40] LABS: Anion Gap 7 (5-15); BUN 8 mg/dL (7-18); BUN/Creat Ratio 12.4 RATIO (10-20); Calcium,Total 7.5 mg/dL (8.5-10.1); Chloride 88 mmol/L (98-107); Creatinine, Serum 0.64 mg/dL (0.55-1.02); EST Glomerular Filtration Rate 93 mL/min (>60); Est Glom Filt Rate - Afr Amer 113 mL/min (>60); Estimated Creatinine Clearance 36.81 ml/min; Glucose 108 mg/dL (74-106); Potassium 4.3 mmol/L (3.5-5.1); Sodium Level 120 mmol/L (136-145)
[2019-05-14] MEDS: TITRATION PARAMETER CHANGE 1 EACH IV (00:59)
[2019-05-14] MEDS: hydrALAZINE 20 MG/ML Vial 5 MG IV (04:22)
[2019-05-14 04:24] LABS: Absolute Lymphocyte Count 1.88 X10^3/uL (0.83-4.51); Absolute Neutrophil Count 5.7 X10^3/uL (2.0-7.7); Basophil# 0.01 X10^3/uL; Basophil% 0.1 % (0-1); Eosinophil# 0.11 X10^3/uL; Eosinophils% 1.3 % (0-5); Hematocrit 29.5 % (37-47); Hemoglobin 10.8 g/dL (12.0-15.0); Lymphocyte # 1.88 X10^3/ul (4.0); Lymphocyte % 21.6 % (19-41); Mean Corp Hgb Conc 36.6 g/dL (32-36); Mean Corpuscular Hgb 30.8 pg (27.0-32.0); Mean Platelet Vol. 8.8 fl (6.2-12.0); Monocyte# 0.99 X10^3/uL; Monocyte% 11.4 % (0-10); NRBC Flagged by Analyzer 0 % (0-5); Neutrophil # 5.67 X10^3/uL (2.7-7.7); Neutrophil % 65.1 % (47-70); Platelet Count 282 K/mm3 (150-450); RBC Distribution Width CV 12.2 % (11.6-14.6); RBC Distribution Width SD 36.8 fl (35.1-43.9); Red Blood Count 3.51 M/mm3 (4.2-5.4); White Blood Count 8.7 K/mm3 (4.4-11.0)
[2019-05-14 04:37] LABS: Anion Gap 7 (5-15); BUN 8 mg/dL (7-18); BUN/Creat Ratio 12.6 RATIO (10-20); Calcium,Total 7.5 mg/dL (8.5-10.1); Chloride 90 mmol/L (98-107); Creatinine, Serum 0.63 mg/dL (0.55-1.02); EST Glomerular Filtration Rate 95 mL/min (>60); Est Glom Filt Rate - Afr Amer 115 mL/min (>60); Estimated Creatinine Clearance 36.81 ml/min; Glucose 106 mg/dL (74-106); Potassium 3.1 mmol/L (3.5-5.1); Sodium Level 122 mmol/L (136-145)
[2019-05-14 06:31] LABS: Bedside Glucose 113 mg/dL (70-110)
[2019-05-14] MEDS: Metoprolol Tartrate 25 MG Tablet PO ×3 (06:40→22:36)
--- NOTE | 2019-05-14 06:46 | PCM.CON.CC ---
Reason for Consult Date of Consultation: 05/14/19 Reason for Consultation: Hyponatremia History of Present Illness: The patient is an 83-year-old female, with a history as outlined below, who presented to the emergency department on May 13 with generalized malaise, fatigue and abnormal lab values including hyponatremia and hypokalemia. The patient has a known history of coronary artery disease, peripheral vascular disease, diabetes mellitus, hypertension and hyperlipidemia. Recently, on May 10, the patient underwent surgical repair of a cystocele/vaginal vault prolapse by Dr. Brown. The patient was monitored overnight and discharged home on May 11. The patient is on hydrochlorothiazide as an outpatient and did report issues with nausea and emesis, along with decreased p.o. intake in the time that has elapsed since she was discharged from the hospital. On presentation to the emergency department, the patient was noted to be afebrile and hypertensive. She was maintaining appropriate oxygen saturations on room air. Initial laboratory evaluation revealed no evidence of a leukocytosis. Chemistry profile was notable for a sodium of 120 and chloride of 88. Urine analysis was largely unrevealing. The patient initially received 3% saline and was admitted to the medical intensive care unit for further management. She has since been transitioned to 0.9% normal saline. Sodium has improved this morning to 122 with a corresponding potassium of 3.1. Past Medical History Past Medical History (Chronic Problems): Chronic Problems (Last Reviewed 04/28/19 @ 13:51 by Melody Mckeon) Cystocele (Chronic) Rectocele (Chronic) Type 2 diabetes mellitus (Chronic) Presence of stent in coronary artery (Chronic ~07/04/11) PCI/stent to LAD 2007; PCI/GUDELIA to instent restenosis of the LAD 07/04/11 Essential hypertension (Chronic) RBBB (right bundle branch block) (Chronic) Atherosclerotic heart disease of [place] coronary artery without angina pectoris (Chronic) PAD (peripheral artery disease) (Chronic) Carotid stenosis, bilateral (Chronic) Incomplete prolapse of vaginal vault (Chronic) puja consult. Peripheral arterial occlusive disease (Chronic) Medical History: Medical History (Last Reviewed 04/28/19 @ 13:51 by Melody Mckeon) Type 2 diabetes mellitus (Chronic) E11.9 Presence of stent in coronary artery (Chronic) Onset Date: ~07/04/11 Z95.5 PCI/stent to LAD 2007; PCI/GUDELIA to instent restenosis of the LAD 07/04/11 Essential hypertension (Chronic) I10 RBBB (right bundle branch block) (Chronic) I45.10 Atherosclerotic heart disease of [place] coronary artery without angina pectoris (Chronic) I25.10 PAD (peripheral artery disease) (Chronic) I73.9 Carotid stenosis, bilateral (Chronic) I65.23 Peripheral arterial occlusive disease (Chronic) I77.9 Hyperlipidemia E78.5 TIA (transient ischemic attack) G45.9 Osteoarthritis M19.90 BBB (bundle branch block) I45.4 Carotid stenosis, bilateral (Inactive) I65.23 Diabetes E11.9 HTN (hypertension) I10 Allergies pravastatin Adverse Reaction (Severe, Verified 05/13/19 15:20) myalgias Sulfa (Sulfonamide Antibiotics) Adverse Reaction (Mild, Verified 05/13/19 16:11) stomach upset atorvastatin Adverse Reaction (Verified 05/13/19 15:20) myalgias Home Medications: Ambulatory Orders Medication Instructions Recorded Aspirin [Aspirin, Baby] 81 mg PO QHS 06/07/16 Clopidogrel Bisulfate [Plavix] 75 mg PO DAILY 06/07/16 Hydrochlorothiazide [Hctz] 25 mg PO DAILY 06/07/16 coenzyme Q10 10 mg capsule 10 mg PO DAILY 01/11/19 nitroglycerin 0.4 mg sublingual 0.4 mg SUBLINGUAL Q5-15M 01/11/19 tablet multivitamin 1 tab PO DAILY 04/28/19 omega-3 fatty acids 1,000 mg 1,000 mg PO DAILY 04/28/19 capsule lisinopril 20 mg tablet 20 mg PO BID tab 04/29/19 metoprolol tartrate 25 mg tablet 25 mg PO TID tab 04/29/19 Cephalexin 500 mg PO BID 05/13/19 Metformin HCl [Metformin HCl ER] 500 mg PO BID 05/13/19 Ondansetron [Zofran] 8 mg PO Q8H PRN 05/13/19 Surgical History: Surgical History (Last Reviewed 05/13/19 @ 16:06 by SHANIQUE Hall) Status post peripheral artery angioplasty Z98.62 Presence of coronary angioplasty implant and graft Onset Date: ~07/04/11 Z95.5 PCI/stent to LAD 2007; PCI/GUDELIA to instent restenosis of the LAD 07/04/11 Cataract extraction status of right eye Z98.41 History of hemorrhoidectomy Z98.890 History of hysterectomy Z90.710 History of left-sided carotid endarterectomy Z98.890 History of heart artery stent Z95.5 Surgical History: - - Pelvic floor reconstruction Psychiatric History: No pertinent psych hx MUSIC DIRECTOR History: No pertinent MUSIC DIRECTOR history Lives: With Family Smoking Status: Former smoker Tobacco Use: Cigarettes Alcohol: Occasional Drugs: None - *Family History Maternal Family History: Family History (Last Reviewed 05/13/19 @ 16:09 by SHANIQUE Hall) Father Diabetes Heart disease Brother Diabetes Colon cancer Brother Diabetes History Items: - - Dementia Paternal Family History: Family History (Last Reviewed 05/13/19 @ 16:09 by SHANIQUE Hall) Father Diabetes Heart disease Brother Diabetes Colon cancer Brother Diabetes Review of Systems Constitutional: Reports: Weakness, Fatigue Eyes: Denies: Blurred vision, Double vision HEENT: Denies: Head Aches, Sinus Congestion, Sinus Drainage Cardiovascular: Denies: Chest Pain, Palpitations Respiratory: Denies: Cough, Shortness of breath at rest, Sputum production Gastrointestinal: Reports: Nausea, Vomiting Genitourinary: Denies: Dysuria Musculoskeletal: Denies: Joint Pain, Joint Tenderness Skin: Denies: Rash, Wounds Neurological: Denies: Numbness, Tingling, Focal weakness Psychiatric: Denies: Anxiety, Depression, Homicidal Ideations, Suicidal Ideations Hematologic/ Lymphatic: Reports: Anemia Objective: The patient's most recent lab work, culture data and imaging studies have all been personally reviewed. - Physical Exam Vitals/I&O's: Vital Signs Temp Pulse Resp BP Pulse Ox 97.7 F L 70 15 141/40 H 100 05/14/19 04:00 05/14/19 06:40 05/14/19 06:00 05/14/19 06:40 05/14/19 06:00 Oxygen Delivery Method Room Air Weight: 144 lb 2.917 oz Body Mass Index (BMI) 24.6 Intake and Output for Last 24 Hours 05/12/19 05/13/19 05/14/19 23:59 23:59 23:59 Intake Total 1300 / 1540 1251.33 / 1251.33 Output Total 1200 / 1200 Balance 1300 / 1140 51.33 / 51.33 General: Alert, Oriented x3, Cooperative, No apparent distress, - - Sitting in bedside recliner. HEENT: Atraumatic, PERRLA, Normocephalic Oral: No Gingival or Mucosal Lesions/ Ulcerations Neck: Supple, No Nodes, Trachea Midline Lungs: Normal air movement, No rhonchi, No wheeze, No rales Cardiovascular: Regular rate, Regular Rhythm, Normal S1, Normal S2, No murmurs Abdomen: Bowel Sounds Present, Soft, Non Tender Extremities: No clubbing, No cyanosis, No edema Skin: No breakdown Musculoskeletal: No Tenderness to Palpation of Joints or Extremities, No Muscle Wasting Lymphatic: No Cervical, Supraclavicular, or Inguinal Adenopathy Neurological: Cranial nerves II-XII grossly intact, Neuro grossly intact Psych/Mental Status: Alert and oriented to time, place, person, mood and affect Labs (Last 48 Hours) 05/13/19 05/13/19 05/13/19 18:10 18:10 19:59 WBC RBC Hgb Hct MCV MCH MCHC RDW Std Deviation RDW Coeff of Kathy Plt Count MPV Immature Gran % (Auto) Neut % (Auto) Lymph % (Auto) [place] % (Auto) Eos % (Auto) Baso % (Auto) Absolute Neuts (auto) Absolute Lymphs (auto) Nucleated RBC % Sodium Potassium Chloride Carbon Dioxide Anion Gap BUN Creatinine Estim Creat Clear Calc Est GFR (MDRD) Af Amer Est GFR (MDRD) Non-Af BUN/Creatinine Ratio Glucose Calcium Cortisol Urine Color Yellow Urine Clarity Clear Urine pH 6.0 Ur Specific [place] 1.015 Urine Protein 100 H Urine Glucose (UA) 100 H Urine Ketones 15 H Urine Occult Blood 250 H Urine Nitrite Negative Urine Bilirubin Negative Urine Urobilinogen Normal Ur Leukocyte Esterase 25 H Urine RBC 25-50 SEEN Urine WBC 0-5 SEEN Ur Squamous Epith Cells 0-5 SEEN Urine Bacteria 0 SEEN Urine Mucus 0 SEEN Urine Creatinine Urine Urea Nitrogen 386 POC Glucose 133 H 05/13/19 05/13/19 05/13/19 20:00 22:00 23:13 WBC RBC Hgb Hct MCV MCH MCHC RDW Std Deviation RDW Coeff of Kathy Plt Count MPV Immature Gran % (Auto) Neut % (Auto) Lymph % (Auto) [place] % (Auto) Eos % (Auto) Baso % (Auto) Absolute Neuts (auto) Absolute Lymphs (auto) Nucleated RBC % Sodium 117 L* 119 L* Potassium 3.0 L 3.1 L Chloride 84 L 86 L Carbon Dioxide 24.0 24.0 Anion Gap 9 9 BUN 9 8 Creatinine 0.65 0.64 Estim Creat Clear Calc 36.81 36.81 Est GFR (MDRD) Af Amer 111 115 Est GFR (MDRD) Non-Af 92 95 BUN/Creatinine Ratio 13.8 12.6 Glucose 116 H 105 Calcium 7.6 L 7.8 L Cortisol Urine Color Urine Clarity Urine pH Ur Specific [place] Urine Protein Urine Glucose (UA) Urine Ketones Urine Occult Blood Urine Nitrite Urine Bilirubin Urine Urobilinogen Ur Leukocyte Esterase Urine RBC Urine WBC Ur Squamous Epith Cells Urine Bacteria Urine Mucus Urine Creatinine 35.50 Urine Urea Nitrogen POC Glucose 05/14/19 05/14/19 05/14/19 00:10 00:10 00:10 WBC RBC Hgb Hct MCV MCH MCHC RDW Std Deviation RDW Coeff of Kathy Plt Count MPV Immature Gran % (Auto) Neut % (Auto) Lymph % (Auto) [place] % (Auto) Eos % (Auto) Baso % (Auto) Absolute Neuts (auto) Absolute Lymphs (auto) Nucleated RBC % Sodium 120 L Cancelled Potassium 4.3 Cancelled Chloride 88 L Cancelled Carbon Dioxide 25.0 Cancelled Anion Gap 7 Cancelled BUN 8 Cancelled Creatinine 0.64 Cancelled Estim Creat Clear Calc 36.81 Cancelled Est GFR (MDRD) Af Amer 113 Cancelled Est GFR (MDRD) Non-Af 93 Cancelled BUN/Creatinine Ratio 12.4 Cancelled Glucose 108 H Cancelled Calcium 7.5 L Cancelled Cortisol Pending Urine Color Urine Clarity Urine pH Ur Specific [place] Urine Protein Urine Glucose (UA) Urine Ketones Urine Occult Blood Urine Nitrite Urine Bilirubin Urine Urobilinogen Ur Leukocyte Esterase Urine RBC Urine WBC Ur Squamous Epith Cells Urine Bacteria Urine Mucus Urine Creatinine Urine Urea Nitrogen POC Glucose 05/14/19 05/14/19 05/14/19 00:13 04:15 04:15 WBC 8.7 RBC 3.51 L Hgb 10.8 L Hct 29.5 L MCV 84.0 MCH 30.8 MCHC 36.6 H RDW Std Deviation 36.8 RDW Coeff of Kathy 12.2 Plt Count 282 MPV 8.8 Immature Gran % (Auto) 0.500 Neut % (Auto) 65.1 Lymph % (Auto) 21.6 [place] % (Auto) 11.4 H Eos % (Auto) 1.3 Baso % (Auto) 0.1 Absolute Neuts (auto) 5.7 Absolute Lymphs (auto) 1.88 Nucleated RBC % 0 Sodium 122 L Potassium 3.1 L Chloride 90 L Carbon Dioxide 25.0 Anion Gap 7 BUN 8 Creatinine 0.63 Estim Creat Clear Calc 36.81 Est GFR (MDRD) Af Amer 115 Est GFR (MDRD) Non-Af 95 BUN/Creatinine Ratio 12.6 Glucose 106 Calcium 7.5 L Cortisol Urine Color Urine Clarity Urine pH Ur Specific [place] Urine Protein Urine Glucose (UA) Urine Ketones Urine Occult Blood Urine Nitrite Urine Bilirubin Urine Urobilinogen Ur Leukocyte Esterase Urine RBC Urine WBC Ur Squamous Epith Cells Urine Bacteria Urine Mucus Urine Creatinine Urine Urea Nitrogen POC Glucose 112 H 05/14/19 06:11 WBC RBC Hgb Hct MCV MCH MCHC RDW Std Deviation RDW Coeff of Kathy Plt Count MPV Immature Gran % (Auto) Neut % (Auto) Lymph % (Auto) [place] % (Auto) Eos % (Auto) Baso % (Auto) Absolute Neuts (auto) Absolute Lymphs (auto) Nucleated RBC % Sodium Potassium Chloride Carbon Dioxide Anion Gap BUN Creatinine Estim Creat Clear Calc Est GFR (MDRD) Af Amer Est GFR (MDRD) Non-Af BUN/Creatinine Ratio Glucose Calcium Cortisol Urine Color Urine Clarity Urine pH Ur Specific [place] Urine Protein Urine Glucose (UA) Urine Ketones Urine Occult Blood Urine Nitrite Urine Bilirubin Urine Urobilinogen Ur Leukocyte Esterase Urine RBC Urine WBC Ur Squamous Epith Cells Urine Bacteria Urine Mucus Urine Creatinine Urine Urea Nitrogen POC Glucose 113 H Clinical Impression(s) from Imaging Studies Brain CT 05/13/19 16:37 IMPRESSION: Normal unenhanced CT scan of the brain. Electronically Signed: Tino Alcantar MD at 17:50 EST , Service support , Current Medications Acetaminophen (Tylenol) 650 mg PO Q6H PRN PRN PRN Reason: Pain Score 1-3/Temp > 100.7 F Alprazolam (Xanax) 0.25 mg PO BID PRN PRN PRN Reason: ANXIETY Aspirin (Aspirin, Baby) 81 mg PO QHS ALEXANDER Last Admin: 05/13/19 22:03 Dose: 81 mg Documented by: Clopidogrel Bisulfate (Plavix) 75 mg PO DAILY [facility] Glucagon () 1 mg IM .X1 PRN PRN Reason: Hypoglycemia Hydralazine HCl (Apresoline Iv) 5 mg IV Q4H PRN PRN PRN Reason: BLOOD PRESSURE Last Admin: 05/14/19 04:22 Dose: 5 mg Documented by: Dextrose (Dextrose 10%-Water) 250 mls @ 999 mls/hr IV .Q16M PRN; Protocol PRN Reason: HYPOGLYCEMIA Sodium Chloride () 250 mls @ 15 mls/hr IV .[id number] PRN PRN Reason: Saline Flush Sodium Chloride () 250 mls @ 15 mls/hr IV .[id number] PRN PRN Reason: Additional IVPB Infusion Nicardipine HCl 25 mg/ Sodium (Chloride) 250 mls @ 50 mls/hr CONT INF .Q5H [facility]; Protocol Last Admin: 05/14/19 05:18 Dose: Not Given Documented by: Sodium Chloride () 1,000 mls @ 40 mls/hr IV .Q25H ALEXANDER Last Infusion: 05/14/19 06:43 Dose: 40 mls/hr Documented by: Insulin Human Lispro (Humalog Kwikpen (Bkc)) 0 unit SC Q6 [facility]; Protocol Last Admin: 05/14/19 06:19 Dose: Not Given Documented by: Metoprolol Tartrate (Lopressor (Beta Perfecto)) 25 mg PO TID [facility] Last Admin: 05/14/19 06:40 Dose: 25 mg Documented by: Ondansetron HCl (Zofran) 4 mg IV Q8H PRN PRN PRN Reason: NAUSEA/VOMITING Promethazine HCl (Phenergan) 12.5 mg IM Q6H PRN PRN PRN Reason: Breakthrough Nausea/Vomiting Sodium Chloride () 10 - 40 ml IV UD PRN PRN Reason: SALINE FLUSH Last Admin: 05/13/19 22:03 Dose: 10 ml Documented by: Assessment/Plan RECOMMENDATIONS: 1. Continue normal saline supplemental fluids. 2. Serial BMPs as ordered. 3. Aggressive electrolyte repletion of both potassium magnesium as ordered. 4. Add potassium supplementation to supplemental IV fluids. 5. Check serum osmolality level. IMPRESSIONS: 1. Hyponatremia Suspect this is related to hypovolemia in the setting of decreased p.o. intake, emesis and concurrent diuretic use. Offending medication has been discontinued. The patient is currently receiving supplemental IV fluid hydration with improvement in her sodium noted. We will continue to monitor serial electrolytes and adjust saline infusion rate as needed. If the patient sodium level continues to improve, she can be transferred out of the intensive care unit. 2. Hypokalemia/hypomagnesemia Aggressive electrolyte repletion as ordered. Potassium supplementation will also be added to the patient's supplemental IV fluids. 3. Coronary artery disease/peripheral vascular disease/diabetes mellitus/hypertension/hyperlipidemia Complicates care, management, recovery and prognosis. Home medications, with the exception of hydrochlorothiazide, can likely be continued. This note was generated with [employer] dictation software. It may contain incorrect words, spelling, and punctuation that were not noted in checking the note before signing. Code Visit Inpatient E&M: 52377 Init Hosp L3
--- NOTE | 2019-05-14 07:42 | PCM.PN.HOSP ---
Subjective: Pt feeling well today. No nausea and breakfast has been ordered. Denies pain at the present time. Is currently up in a chair watching television. Wants to know if she can get up with help to use the bathroom today. Vitals/I&O's: Vital Signs Temp Pulse Resp BP Pulse Ox 97.7 F L 70 15 141/40 H 100 05/14/19 04:00 05/14/19 06:40 05/14/19 06:00 05/14/19 06:40 05/14/19 06:00 Oxygen Delivery Method Room Air Weight: 65.4 kg Body Mass Index (BMI) 24.6 Intake and Output for Last 24 Hours 05/12/19 05/13/19 05/14/19 23:59 23:59 23:59 Intake Total 1300 / 1540 1251.33 / 1251.33 Output Total 1200 / 1200 Balance 1300 / 1140 51.33 / 51.33 General: Alert, Oriented x3, Cooperative, No apparent distress, Well developed, Well nourished, - - sitting up in a chair and appears comfortable, non-toxic HEENT: Atraumatic, PERRLA, EOMI, Normocephalic, EAC Clear Oral: Moist Mucosa, No Gingival or Mucosal Lesions/ Ulcerations, - - dentures in place, no thrush, mallampati 2 Neck: Supple, No JVD, Negative Carotid Bruits, Negative Hepatojugular Reflux, No Nodes, No Nuchal Rigidity, Trachea Midline, Thyroid Normal Size and Texture Lungs: Clear to auscultation, Normal air movement, No rhonchi, No wheeze, No rales, Diminished Cardiovascular: Regular rate, Regular Rhythm, Normal S1, Normal S2, No murmurs, No Ectopic Activity, No rub noted, No Gallop Abdomen: Bowel Sounds Present, Soft, Non Tender, Non-Distended, No Hepato-splenomegaly, No hernias noted Extremities: No clubbing, No cyanosis, No edema, Capillary Refill Less than 3 Seconds Skin: No rashes, No breakdown Musculoskeletal: No Tenderness to Palpation of Joints or Extremities, No Muscle Wasting Lymphatic: No Cervical, Supraclavicular, or Inguinal Adenopathy Neurological: Cranial nerves II-XII grossly intact, Deep Tendon Reflexes 2+/4 and Symmetrical, Neuro grossly intact, Motor Exam 5/5 strength throughout, - - mild generalized weakness-proximal> distal Psych/Mental Status: Normal Affect, Appropriate, Alert and oriented to time, place, person, mood and affect Laboratory Results 05/13/19 18:10: Urine Color Yellow, Urine Clarity Clear, Urine pH 6.0, Ur Specific [place] 1.015, Urine Protein 100 H, Urine Glucose (UA) 100 H, Urine Ketones 15 H, Urine Occult Blood 250 H, Urine Nitrite Negative, Urine Bilirubin Negative, Urine Urobilinogen Normal, Ur Leukocyte Esterase 25 H, Urine RBC 25-50 SEEN, Urine WBC 0-5 SEEN, Ur Squamous Epith Cells 0-5 SEEN, Urine Bacteria 0 SEEN, Urine Mucus 0 SEEN 05/13/19 18:10: Urine Urea Nitrogen 386 05/13/19 19:59: POC Glucose 133 H 05/13/19 20:00: Sodium 117 L*, Potassium 3.0 L, Chloride 84 L, Carbon Dioxide 24.0, Anion Gap 9, BUN 9, Creatinine 0.65, Estim Creat Clear Calc 36.81, Est GFR (MDRD) Af Amer 111, Est GFR (MDRD) Non-Af 92, BUN/Creatinine Ratio 13.8, Glucose 116 H, Calcium 7.6 L 05/13/19 22:00: Sodium 119 L*, Potassium 3.1 L, Chloride 86 L, Carbon Dioxide 24.0, Anion Gap 9, BUN 8, Creatinine 0.64, Estim Creat Clear Calc 36.81, Est GFR (MDRD) Af Amer 115, Est GFR (MDRD) Non-Af 95, BUN/Creatinine Ratio 12.6, Glucose 105, Calcium 7.8 L 05/13/19 23:13: Urine Creatinine 35.50 05/14/19 00:10: Cortisol Pending 05/14/19 00:10: Sodium 120 L, Potassium 4.3, Chloride 88 L, Carbon Dioxide 25.0, Anion Gap 7, BUN 8, Creatinine 0.64, Estim Creat Clear Calc 36.81, Est GFR (MDRD) Af Amer 113, Est GFR (MDRD) Non-Af 93, BUN/Creatinine Ratio 12.4, Glucose 108 H, Calcium 7.5 L 05/14/19 00:10: Sodium Cancelled, Potassium Cancelled, Chloride Cancelled, Carbon Dioxide Cancelled, Anion Gap Cancelled, BUN Cancelled, Creatinine Cancelled, Estim Creat Clear Calc Cancelled, Est GFR (MDRD) Af Amer Cancelled, Est GFR (MDRD) Non-Af Cancelled, BUN/Creatinine Ratio Cancelled, Glucose Cancelled, Calcium Cancelled 05/14/19 00:10: Serum Osmolality Pending 05/14/19 00:13: POC Glucose 112 H 05/14/19 04:15: Sodium 122 L, Potassium 3.1 L, Chloride 90 L, Carbon Dioxide 25.0, Anion Gap 7, BUN 8, Creatinine 0.63, Estim Creat Clear Calc 36.81, Est GFR (MDRD) Af Amer 115, Est GFR (MDRD) Non-Af 95, BUN/Creatinine Ratio 12.6, Glucose 106, Calcium 7.5 L 05/14/19 04:15: WBC 8.7, RBC 3.51 L, Hgb 10.8 L, Hct 29.5 L, MCV 84.0, MCH 30.8, MCHC 36.6 H, RDW Std Deviation 36.8, RDW Coeff of Kathy 12.2, Plt Count 282, MPV 8.8, Immature Gran % (Auto) 0.500, Neut % (Auto) 65.1, Lymph % (Auto) 21.6, [place] % (Auto) 11.4 H, Eos % (Auto) 1.3, Baso % (Auto) 0.1, Absolute Neuts (auto) 5.7, Absolute Lymphs (auto) 1.88, Nucleated RBC % 0 05/14/19 06:11: POC Glucose 113 H Current Medications Acetaminophen (Tylenol) 650 mg PO Q6H PRN PRN PRN Reason: Pain Score 1-3/Temp > 100.7 F Alprazolam (Xanax) 0.25 mg PO BID PRN PRN PRN Reason: ANXIETY Aspirin (Aspirin, Baby) 81 mg PO QHS ALEXANDER Last Admin: 05/13/19 22:03 Dose: 81 mg Documented by: Clopidogrel Bisulfate (Plavix) 75 mg PO DAILY [facility] Glucagon () 1 mg IM .X1 PRN PRN Reason: Hypoglycemia Hydralazine HCl (Apresoline Iv) 5 mg IV Q4H PRN PRN PRN Reason: BLOOD PRESSURE Last Admin: 05/14/19 04:22 Dose: 5 mg Documented by: Dextrose (Dextrose 10%-Water) 250 mls @ 999 mls/hr IV .Q16M PRN; Protocol PRN Reason: HYPOGLYCEMIA Sodium Chloride () 250 mls @ 15 mls/hr IV .[id number] PRN PRN Reason: Saline Flush Sodium Chloride () 250 mls @ 15 mls/hr IV .[id number] PRN PRN Reason: Additional IVPB Infusion Nicardipine HCl 25 mg/ Sodium (Chloride) 250 mls @ 50 mls/hr CONT INF .Q5H ALEXANDER; Protocol Last Admin: 05/14/19 05:18 Dose: Not Given Documented by: Sodium Chloride () 1,000 mls @ 40 mls/hr IV .Q25H ALEXANDER Last Infusion: 05/14/19 06:43 Dose: 40 mls/hr Documented by: Insulin Human Lispro (Humalog Kwikpen (Bkc)) 0 unit SC Q6 [facility]; Protocol Last Admin: 05/14/19 06:19 Dose: Not Given Documented by: Metoprolol Tartrate (Lopressor (Beta Perfecto)) 25 mg PO TID ALEXANDER Last Admin: 05/14/19 06:40 Dose: 25 mg Documented by: Ondansetron HCl (Zofran) 4 mg IV Q8H PRN PRN PRN Reason: NAUSEA/VOMITING Promethazine HCl (Phenergan) 12.5 mg IM Q6H PRN PRN PRN Reason: Breakthrough Nausea/Vomiting Sodium Chloride () 10 - 40 ml IV UD PRN PRN Reason: SALINE FLUSH Last Admin: 05/13/19 22:03 Dose: 10 ml Documented by: Capacity - Capacity Assessment Tool Can the patient understand benefits, risks and alternatives?: Yes Can the patient make a logical, rational choice?: Yes Is the choice the patient makes consistent w/ their values?: Yes Is there an impending, emergent risk to the patient?: No Does the patient have an Advance Directive?: Yes Is there a Surrogate Available?: Yes i.e. HCPOA: Yes i.e. close relative (spouse, child, parent, sibling)?: Yes STROKE Vital Signs/Narrative: Vital Signs Temp Pulse Resp BP BP Pulse Ox 05/14/19 06:40 70 141/40 H 05/14/19 06:00 59 L 15 141/40 H 100 05/14/19 05:18 58 L 112/39 L 05/14/19 05:00 61 15 120/41 L 98 05/14/19 04:45 64 139/46 H 05/14/19 04:30 65 169/43 H 05/14/19 04:22 64 169/55 H 05/14/19 04:15 68 169/55 H 05/14/19 04:02 64 05/14/19 04:00 97.7 F L 65 16 152/123 H 99 Medical Necessity - Tobacco Use Smoking Status: Former smoker Tobacco Use: Cigarettes Assessment/Plan Severe Hyponatremia -was 119 on admission -pt is on HCTZ as outpt -would stop this drug indefinitely -continue NS at current rate and trend Na q 4 hrs -adjust IVF as needed -no more than 12 mEq correction in 24 hr period (129 this pm at 2200) -CT head is negative -Mental status is good and at baseline Hypokalemia -40 mEq po today -check Mag today -trend K Nausea -resolved HTN -restart Lisinopril -continue Metoprolol -would d/c HCTZ and place as an allergy for hyponatremia -consider addition of Norvasc if BP is elevated on 2 drug regimen or could increase Lisinopril from 20 to 40 mg DM-2 -switch to AC BGT and continue SSI -hold home metformin -UA with proteinuria CAD s/p GUDELIA -PCI LAD 2007 with in-stent restenosis 2011 -continue ASA/Plavix -no statin 2/2 allergy -continue BB -nitro prn A/P Pelvic Floor Reconstruction 2/2 cystocele/rectocele and vaginal prolapse -Dr. Brown 05/10/19 -no current issues Carotid Stenosis/PAD -Follows with Dr. Ball -s/p L CEA 2012 -Carotid Duplex 12/2018--> <50% B stenosis ICA and ECA -continue home meds DVT prophylaxis -pt not moving much -add Lovenox 40 daily CODE STATUS: DNR-CCA Code Visit Inpatient E&M: 21107 [facility] Hosp L3
[2019-05-14 07:51] LABS: Magnesium 1.5 mg/dL (1.6-2.6)
[2019-05-14 07:59] LABS: Osmolality, Serum 244 mOsm/KG (280-301)
[2019-05-14] MEDS: Potassium Chloride 10mEq/100mL 10 MEQ/100 ML IV.SOLN. 100 MEQ IV BOLUS ×4 (08:56→12:55)
[2019-05-14 09:18] LABS: Anion Gap 8 (5-15); BUN 8 mg/dL (7-18); BUN/Creat Ratio 11.9 RATIO (10-20); Calcium,Total 7.9 mg/dL (8.5-10.1); Chloride 93 mmol/L (98-107); Creatinine, Serum 0.68 mg/dL (0.55-1.02); EST Glomerular Filtration Rate 89 mL/min (>60); Est Glom Filt Rate - Afr Amer 107 mL/min (>60); Estimated Creatinine Clearance 36.81 ml/min; Glucose 111 mg/dL (74-106); Potassium 3.1 mmol/L (3.5-5.1); Sodium Level 125 mmol/L (136-145)
[2019-05-14] MEDS: Lisinopril 20 MG Tablet PO (09:44)
[2019-05-14] MEDS: Clopidogrel Bisulfate 75 MG Tablet PO (09:44)
[2019-05-14] MEDS: Enoxaparin 40 MG/0.4 ML Syringe SC (09:44)
[2019-05-14] MEDS: Potassium Chloride 40 MEQ in 0.9% Normal Saline 1,000 ML 75 MEQ IV ×2 (10:18→22:36)
[2019-05-14 12:47] LABS: Anion Gap 7 (5-15); BUN 9 mg/dL (7-18); BUN/Creat Ratio 10.3 RATIO (10-20); Calcium,Total 7.7 mg/dL (8.5-10.1); Chloride 96 mmol/L (98-107); Creatinine, Serum 0.87 mg/dL (0.55-1.02); EST Glomerular Filtration Rate 66 mL/min (>60); Est Glom Filt Rate - Afr Amer 80 mL/min (>60); Estimated Creatinine Clearance 42.31 ml/min; Glucose 155 mg/dL (74-106); Potassium 4.3 mmol/L (3.5-5.1); Sodium Level 126 mmol/L (136-145)
--- NOTE | 2019-05-14 13:32 | CASEMGMT ---
RN CM Assessment Presentation: Severe hyponatremia, hypokalemia, N/V Intro role of CM and purpose of RN CM assessment to patient in room. Pt is sitting in chair, awake, alert and able to participate in assessment. Demographics, PCP and Pharmacy verified. Pt states she is staying with her daughter and will return on discharge. Family has been assisting pt since her surgery. Plan is to return home with family on dc. Pt asked re: assistance at home. Pt is not homebound, explained assist for home cleaning, meals etc would be self pay. PCP: Dr. Mc Marks Specialists: Dr. Brown Preferred Pharmacy: [facility] Insurance: [employer] Prescription Benefit: yes LNOK: Daughter Living Arrangements: Living with daughter presently and plans to return on dc. Family able to assist with care needs. Transportation: family drives pt. DME: walker Patient DC goals: Home DC PLAN: Home. Encouraged pt to contact CM if dc needs or concerns arise. Suhail MORTON RN ACM
[2019-05-14 14:47] LABS: Urine Sodium 24 mmol/L (Not Establ.)
--- NOTE | 2019-05-14 15:30 | PN_ITS ---
Physical Exam Subjective: Patient sitting up in chair. Feeling better, nausea resolved. Having bowel movements, but none today. Feels like she is voiding without an issue. No new issues overnight. - Physical Exam Vital Signs Temp 97.8 F 05/14/19 12:00 Pulse 60 05/14/19 15:00 Resp 18 05/14/19 15:00 BP 129/83 H 05/14/19 15:00 Pulse Ox 100 05/14/19 15:00 Intake & Output 05/12/19 05/13/19 05/14/19 23:59 23:59 23:59 Intake Total 1300 / 1540 2051.33 / 2051.33 Output Total 1700 / 1700 Balance 1300 / 1140 351.33 / 351.33 Weight: 65.2 kg 65.4 kg Intake: Oral 880 / 880 Intake, IV Amount 1300 / 1300 1171.33 / 1171.33 0.9% Normal Saline 1,000 ML @ 296.33 / 296.33 40 mls/hr IV .Q25H [facility] Rx#: [id number] 0.9% Normal Saline 1,000 ML @ 1000 / 1000 999 mls/hr IV .Q1H1M [facility] Rx#: [id number] Potassium Chloride 10mEq/100mL 300 / 300 100 / 100 10 MEQ/100 ML10 meq In 100 ml @ 100 mls/hr IV BOLUS Q1H [facility] Rx #:[id number] Potassium Chloride 10mEq/100mL 400 / 400 10 MEQ/100 ML10 meq In 100 ml @ 100 mls/hr IV BOLUS Q1H [facility] Rx #:[id number] Sodium Chloride 3% 500 ML @ 60 375 / 375 mls/hr IV .Q8H20M [facility] Rx#: [id number] Output: Urine 1700 / 1700 General: Alert, Oriented x3, Cooperative, No apparent distress HEENT: Atraumatic, Normocephalic Oral: Moist Mucosa Neck: Supple, Trachea Midline Lungs: Normal air movement Cardiovascular: Regular rate Abdomen: Soft, Non Tender, Non-Distended Rectal: Exam deferred Skin: No rashes Musculoskeletal: No Muscle Wasting Neurological: Cranial nerves II-XII grossly intact, Neuro grossly intact Psych/Mental Status: Normal Affect Laboratory Tests Past 24 Hrs 05/13/19 05/13/19 05/13/19 18:10 18:10 20:00 WBC RBC Hgb Hct MCV MCH MCHC RDW Std Deviation RDW Coeff of Kathy Plt Count MPV Immature Gran % (Auto) Neut % (Auto) Lymph % (Auto) [place] % (Auto) Eos % (Auto) Baso % (Auto) Absolute Neuts (auto) Absolute Lymphs (auto) Nucleated RBC % Sodium 117 L* Potassium 3.0 L Chloride 84 L Carbon Dioxide 24.0 Anion Gap 9 BUN 9 Creatinine 0.65 Estim Creat Clear Calc 36.81 Est GFR (MDRD) Af Amer 111 Est GFR (MDRD) Non-Af 92 BUN/Creatinine Ratio 13.8 Glucose 116 H Serum Osmolality Calcium 7.6 L Magnesium Cortisol Urine Color Yellow Urine Clarity Clear Urine pH 6.0 Ur Specific [place] 1.015 Urine Protein 100 H Urine Glucose (UA) 100 H Urine Ketones 15 H Urine Occult Blood 250 H Urine Nitrite Negative Urine Bilirubin Negative Urine Urobilinogen Normal Ur Leukocyte Esterase 25 H Urine RBC 25-50 SEEN Urine WBC 0-5 SEEN Ur Squamous Epith Cells 0-5 SEEN Urine Bacteria 0 SEEN Urine Mucus 0 SEEN Ur Random Sodium Urine Creatinine Urine Urea Nitrogen 386 05/13/19 05/13/19 05/14/19 22:00 23:13 00:10 WBC RBC Hgb Hct MCV MCH MCHC RDW Std Deviation RDW Coeff of Kathy Plt Count MPV Immature Gran % (Auto) Neut % (Auto) Lymph % (Auto) [place] % (Auto) Eos % (Auto) Baso % (Auto) Absolute Neuts (auto) Absolute Lymphs (auto) Nucleated RBC % Sodium 119 L* Potassium 3.1 L Chloride 86 L Carbon Dioxide 24.0 Anion Gap 9 BUN 8 Creatinine 0.64 Estim Creat Clear Calc 36.81 Est GFR (MDRD) Af Amer 115 Est GFR (MDRD) Non-Af 95 BUN/Creatinine Ratio 12.6 Glucose 105 Serum Osmolality Calcium 7.8 L Magnesium Cortisol 31.60 H Urine Color Urine Clarity Urine pH Ur Specific [place] Urine Protein Urine Glucose (UA) Urine Ketones Urine Occult Blood Urine Nitrite Urine Bilirubin Urine Urobilinogen Ur Leukocyte Esterase Urine RBC Urine WBC Ur Squamous Epith Cells Urine Bacteria Urine Mucus Ur Random Sodium Urine Creatinine 35.50 Urine Urea Nitrogen 05/14/19 05/14/19 05/14/19 00:10 00:10 04:15 WBC RBC Hgb Hct MCV MCH MCHC RDW Std Deviation RDW Coeff of Kathy Plt Count MPV Immature Gran % (Auto) Neut % (Auto) Lymph % (Auto) [place] % (Auto) Eos % (Auto) Baso % (Auto) Absolute Neuts (auto) Absolute Lymphs (auto) Nucleated RBC % Sodium 120 L 122 L Potassium 4.3 3.1 L Chloride 88 L 90 L Carbon Dioxide 25.0 25.0 Anion Gap 7 7 BUN 8 8 Creatinine 0.64 0.63 Estim Creat Clear Calc 36.81 36.81 Est GFR (MDRD) Af Amer 113 115 Est GFR (MDRD) Non-Af 93 95 BUN/Creatinine Ratio 12.4 12.6 Glucose 108 H 106 Serum Osmolality 244 L Calcium 7.5 L 7.5 L Magnesium Cortisol Urine Color Urine Clarity Urine pH Ur Specific [place] Urine Protein Urine Glucose (UA) Urine Ketones Urine Occult Blood Urine Nitrite Urine Bilirubin Urine Urobilinogen Ur Leukocyte Esterase Urine RBC Urine WBC Ur Squamous Epith Cells Urine Bacteria Urine Mucus Ur Random Sodium Urine Creatinine Urine Urea Nitrogen 05/14/19 05/14/19 05/14/19 04:15 04:15 08:55 WBC 8.7 RBC 3.51 L Hgb 10.8 L Hct 29.5 L MCV 84.0 MCH 30.8 MCHC 36.6 H RDW Std Deviation 36.8 RDW Coeff of Kathy 12.2 Plt Count 282 MPV 8.8 Immature Gran % (Auto) 0.500 Neut % (Auto) 65.1 Lymph % (Auto) 21.6 [place] % (Auto) 11.4 H Eos % (Auto) 1.3 Baso % (Auto) 0.1 Absolute Neuts (auto) 5.7 Absolute Lymphs (auto) 1.88 Nucleated RBC % 0 Sodium 125 L Potassium 3.1 L Chloride 93 L Carbon Dioxide 24.0 Anion Gap 8 BUN 8 Creatinine 0.68 Estim Creat Clear Calc 36.81 Est GFR (MDRD) Af Amer 107 Est GFR (MDRD) Non-Af 89 BUN/Creatinine Ratio 11.9 Glucose 111 H Serum Osmolality Calcium 7.9 L Magnesium 1.5 L Cortisol Urine Color Urine Clarity Urine pH Ur Specific [place] Urine Protein Urine Glucose (UA) Urine Ketones Urine Occult Blood Urine Nitrite Urine Bilirubin Urine Urobilinogen Ur Leukocyte Esterase Urine RBC Urine WBC Ur Squamous Epith Cells Urine Bacteria Urine Mucus Ur Random Sodium Urine Creatinine Urine Urea Nitrogen 05/14/19 05/14/19 12:15 14:40 WBC RBC Hgb Hct MCV MCH MCHC RDW Std Deviation RDW Coeff of Kathy Plt Count MPV Immature Gran % (Auto) Neut % (Auto) Lymph % (Auto) [place] % (Auto) Eos % (Auto) Baso % (Auto) Absolute Neuts (auto) Absolute Lymphs (auto) Nucleated RBC % Sodium 126 L Potassium 4.3 Chloride 96 L Carbon Dioxide 23.0 Anion Gap 7 BUN 9 Creatinine 0.87 Estim Creat Clear Calc 42.31 Est GFR (MDRD) Af Amer 80 Est GFR (MDRD) Non-Af 66 BUN/Creatinine Ratio 10.3 Glucose 155 H Serum Osmolality Calcium 7.7 L Magnesium Cortisol Urine Color Urine Clarity Urine pH Ur Specific [place] Urine Protein Urine Glucose (UA) Urine Ketones Urine Occult Blood Urine Nitrite Urine Bilirubin Urine Urobilinogen Ur Leukocyte Esterase Urine RBC Urine WBC Ur Squamous Epith Cells Urine Bacteria Urine Mucus Ur Random Sodium 24 Urine Creatinine Urine Urea Nitrogen Medical Necessity - Tobacco Use Smoking Status: Former smoker Tobacco Use: Cigarettes Assessment/Plan Doing well from urology standpoint. Appreciate ICU/hospitalist care. Following peripherally.
[2019-05-14 18:36] LABS: Bedside Glucose 115 mg/dL (70-110)
[2019-05-14] MEDS: Aspirin 81 MG TAB.CHEW PO (22:36)
[2019-05-14 22:45] LABS: Bedside Glucose 117 mg/dL (70-110)
[2019-05-14 23:11] LABS: Anion Gap 6 (5-15); BUN 10 mg/dL (7-18); BUN/Creat Ratio 12.6 RATIO (10-20); Chloride 102 mmol/L (98-107); EST Glomerular Filtration Rate 73 mL/min (>60); Est Glom Filt Rate - Afr Amer 89 mL/min (>60); Estimated Creatinine Clearance 46.01 ml/min; Glucose 116 mg/dL (74-106); Potassium 4.1 mmol/L (3.5-5.1); Sodium Level 132 mmol/L (136-145)
[2019-05-15] VITALS (7 sets, daily range): BP systolic 150–183; BP diastolic 71–75; PULSE 54–65; RESP 16–17; TEMP 36.4–36.6; O2SAT 99–100
[2019-05-15] MEDS: Metoprolol Tartrate 25 MG Tablet PO (04:53)
[2019-05-15 05:01] LABS: Bedside Glucose 113 mg/dL (70-110)
--- NOTE | 2019-05-15 06:58 | PCM.PN.PUL ---
Subjective: The patient was seen and examined at the bedside this morning. Events from the last 24 hours have been reviewed. The patient is currently afebrile, hemodynamically stable and maintaining appropriate oxygen saturations on room air. The patient's sodium and potassium levels have normalized in the setting of gentle IV fluid hydration. The patient denies SOB, nausea, vomiting or diarrhea. Objective: The patient's most recent lab work, culture data and imaging studies have all been personally reviewed. - Physical Exam Vitals/I&O's: Vital Signs Temp Pulse Resp BP Pulse Ox 97.8 F 63 16 150/75 H 99 05/15/19 04:45 05/15/19 04:53 05/15/19 04:45 05/15/19 04:45 05/15/19 04:45 Oxygen Delivery Method Room Air Weight: 149 lb 7.574 oz Body Mass Index (BMI) 24.6 Intake and Output for Last 24 Hours 05/13/19 05/14/19 05/15/19 23:59 23:59 23:59 Intake Total 1300 / 1540 4141.50 / 4361.50 440 / 440 Output Total 2300 / 2300 Balance 1300 / 1140 1841.50 / 2061.50 440 / 440 General: Alert, Cooperative, No apparent distress HEENT: Atraumatic, PERRLA, Normocephalic Oral: No Gingival or Mucosal Lesions/ Ulcerations Neck: Supple, No Nodes, Trachea Midline Lungs: Normal air movement, No rhonchi, No wheeze, No rales Cardiovascular: Regular rate, Regular Rhythm, Normal S1, Normal S2 Abdomen: Bowel Sounds Present, Soft, Non Tender Extremities: No clubbing, No cyanosis, No edema Skin: No breakdown Musculoskeletal: No Tenderness to Palpation of Joints or Extremities, No Muscle Wasting Lymphatic: No Cervical, Supraclavicular, or Inguinal Adenopathy Neurological: Cranial nerves II-XII grossly intact, Neuro grossly intact Psych/Mental Status: Normal Affect, Appropriate Labs (Last 48 Hours) 05/13/19 05/13/19 05/13/19 18:10 18:10 19:59 WBC RBC Hgb Hct MCV MCH MCHC RDW Std Deviation RDW Coeff of Kathy Plt Count MPV Immature Gran % (Auto) Neut % (Auto) Lymph % (Auto) [place] % (Auto) Eos % (Auto) Baso % (Auto) Absolute Neuts (auto) Absolute Lymphs (auto) Nucleated RBC % Sodium Potassium Chloride Carbon Dioxide Anion Gap BUN Creatinine Estim Creat Clear Calc Est GFR (MDRD) Af Amer Est GFR (MDRD) Non-Af BUN/Creatinine Ratio Glucose Serum Osmolality Calcium Magnesium Cortisol Urine Color Yellow Urine Clarity Clear Urine pH 6.0 Ur Specific [place] 1.015 Urine Protein 100 H Urine Glucose (UA) 100 H Urine Ketones 15 H Urine Occult Blood 250 H Urine Nitrite Negative Urine Bilirubin Negative Urine Urobilinogen Normal Ur Leukocyte Esterase 25 H Urine RBC 25-50 SEEN Urine WBC 0-5 SEEN Ur Squamous Epith Cells 0-5 SEEN Urine Bacteria 0 SEEN Urine Mucus 0 SEEN Ur Random Sodium Urine Creatinine Urine Urea Nitrogen 386 POC Glucose 133 H 05/13/19 05/13/19 05/13/19 20:00 22:00 23:13 WBC RBC Hgb Hct MCV MCH MCHC RDW Std Deviation RDW Coeff of Kathy Plt Count MPV Immature Gran % (Auto) Neut % (Auto) Lymph % (Auto) [place] % (Auto) Eos % (Auto) Baso % (Auto) Absolute Neuts (auto) Absolute Lymphs (auto) Nucleated RBC % Sodium 117 L* 119 L* Potassium 3.0 L 3.1 L Chloride 84 L 86 L Carbon Dioxide 24.0 24.0 Anion Gap 9 9 BUN 9 8 Creatinine 0.65 0.64 Estim Creat Clear Calc 36.81 36.81 Est GFR (MDRD) Af Amer 111 115 Est GFR (MDRD) Non-Af 92 95 BUN/Creatinine Ratio 13.8 12.6 Glucose 116 H 105 Serum Osmolality Calcium 7.6 L 7.8 L Magnesium Cortisol Urine Color Urine Clarity Urine pH Ur Specific [place] Urine Protein Urine Glucose (UA) Urine Ketones Urine Occult Blood Urine Nitrite Urine Bilirubin Urine Urobilinogen Ur Leukocyte Esterase Urine RBC Urine WBC Ur Squamous Epith Cells Urine Bacteria Urine Mucus Ur Random Sodium Urine Creatinine 35.50 Urine Urea Nitrogen POC Glucose 05/14/19 05/14/19 05/14/19 00:10 00:10 00:10 WBC RBC Hgb Hct MCV MCH MCHC RDW Std Deviation RDW Coeff of Kathy Plt Count MPV Immature Gran % (Auto) Neut % (Auto) Lymph % (Auto) [place] % (Auto) Eos % (Auto) Baso % (Auto) Absolute Neuts (auto) Absolute Lymphs (auto) Nucleated RBC % Sodium 120 L Potassium 4.3 Chloride 88 L Carbon Dioxide 25.0 Anion Gap 7 BUN 8 Creatinine 0.64 Estim Creat Clear Calc 36.81 Est GFR (MDRD) Af Amer 113 Est GFR (MDRD) Non-Af 93 BUN/Creatinine Ratio 12.4 Glucose 108 H Serum Osmolality 244 L Calcium 7.5 L Magnesium Cortisol 31.60 H Urine Color Urine Clarity Urine pH Ur Specific [place] Urine Protein Urine Glucose (UA) Urine Ketones Urine Occult Blood Urine Nitrite Urine Bilirubin Urine Urobilinogen Ur Leukocyte Esterase Urine RBC Urine WBC Ur Squamous Epith Cells Urine Bacteria Urine Mucus Ur Random Sodium Urine Creatinine Urine Urea Nitrogen POC Glucose 05/14/19 05/14/19 05/14/19 00:13 04:15 04:15 WBC 8.7 RBC 3.51 L Hgb 10.8 L Hct 29.5 L MCV 84.0 MCH 30.8 MCHC 36.6 H RDW Std Deviation 36.8 RDW Coeff of Kathy 12.2 Plt Count 282 MPV 8.8 Immature Gran % (Auto) 0.500 Neut % (Auto) 65.1 Lymph % (Auto) 21.6 [place] % (Auto) 11.4 H Eos % (Auto) 1.3 Baso % (Auto) 0.1 Absolute Neuts (auto) 5.7 Absolute Lymphs (auto) 1.88 Nucleated RBC % 0 Sodium 122 L Potassium 3.1 L Chloride 90 L Carbon Dioxide 25.0 Anion Gap 7 BUN 8 Creatinine 0.63 Estim Creat Clear Calc 36.81 Est GFR (MDRD) Af Amer 115 Est GFR (MDRD) Non-Af 95 BUN/Creatinine Ratio 12.6 Glucose 106 Serum Osmolality Calcium 7.5 L Magnesium Cortisol Urine Color Urine Clarity Urine pH Ur Specific [place] Urine Protein Urine Glucose (UA) Urine Ketones Urine Occult Blood Urine Nitrite Urine Bilirubin Urine Urobilinogen Ur Leukocyte Esterase Urine RBC Urine WBC Ur Squamous Epith Cells Urine Bacteria Urine Mucus Ur Random Sodium Urine Creatinine Urine Urea Nitrogen POC Glucose 112 H 05/14/19 05/14/19 05/14/19 04:15 06:11 08:55 WBC RBC Hgb Hct MCV MCH MCHC RDW Std Deviation RDW Coeff of Kathy Plt Count MPV Immature Gran % (Auto) Neut % (Auto) Lymph % (Auto) [place] % (Auto) Eos % (Auto) Baso % (Auto) Absolute Neuts (auto) Absolute Lymphs (auto) Nucleated RBC % Sodium 125 L Potassium 3.1 L Chloride 93 L Carbon Dioxide 24.0 Anion Gap 8 BUN 8 Creatinine 0.68 Estim Creat Clear Calc 36.81 Est GFR (MDRD) Af Amer 107 Est GFR (MDRD) Non-Af 89 BUN/Creatinine Ratio 11.9 Glucose 111 H Serum Osmolality Calcium 7.9 L Magnesium 1.5 L Cortisol Urine Color Urine Clarity Urine pH Ur Specific [place] Urine Protein Urine Glucose (UA) Urine Ketones Urine Occult Blood Urine Nitrite Urine Bilirubin Urine Urobilinogen Ur Leukocyte Esterase Urine RBC Urine WBC Ur Squamous Epith Cells Urine Bacteria Urine Mucus Ur Random Sodium Urine Creatinine Urine Urea Nitrogen POC Glucose 113 H 05/14/19 05/14/19 05/14/19 12:15 14:40 18:17 WBC RBC Hgb Hct MCV MCH MCHC RDW Std Deviation RDW Coeff of Kathy Plt Count MPV Immature Gran % (Auto) Neut % (Auto) Lymph % (Auto) [place] % (Auto) Eos % (Auto) Baso % (Auto) Absolute Neuts (auto) Absolute Lymphs (auto) Nucleated RBC % Sodium 126 L Potassium 4.3 Chloride 96 L Carbon Dioxide 23.0 Anion Gap 7 BUN 9 Creatinine 0.87 Estim Creat Clear Calc 42.31 Est GFR (MDRD) Af Amer 80 Est GFR (MDRD) Non-Af 66 BUN/Creatinine Ratio 10.3 Glucose 155 H Serum Osmolality Calcium 7.7 L Magnesium Cortisol Urine Color Urine Clarity Urine pH Ur Specific [place] Urine Protein Urine Glucose (UA) Urine Ketones Urine Occult Blood Urine Nitrite Urine Bilirubin Urine Urobilinogen Ur Leukocyte Esterase Urine RBC Urine WBC Ur Squamous Epith Cells Urine Bacteria Urine Mucus Ur Random Sodium 24 Urine Creatinine Urine Urea Nitrogen POC Glucose 115 H 05/14/19 05/14/19 05/15/19 22:30 22:34 04:52 WBC RBC Hgb Hct MCV MCH MCHC RDW Std Deviation RDW Coeff of Kathy Plt Count MPV Immature Gran % (Auto) Neut % (Auto) Lymph % (Auto) [place] % (Auto) Eos % (Auto) Baso % (Auto) Absolute Neuts (auto) Absolute Lymphs (auto) Nucleated RBC % Sodium 132 L Potassium 4.1 Chloride 102 Carbon Dioxide 24.0 Anion Gap 6 BUN 10 Creatinine 0.80 Estim Creat Clear Calc 46.01 Est GFR (MDRD) Af Amer 89 Est GFR (MDRD) Non-Af 73 BUN/Creatinine Ratio 12.6 Glucose 116 H Serum Osmolality Calcium 8.0 L Magnesium Cortisol Urine Color Urine Clarity Urine pH Ur Specific [place] Urine Protein Urine Glucose (UA) Urine Ketones Urine Occult Blood Urine Nitrite Urine Bilirubin Urine Urobilinogen Ur Leukocyte Esterase Urine RBC Urine WBC Ur Squamous Epith Cells Urine Bacteria Urine Mucus Ur Random Sodium Urine Creatinine Urine Urea Nitrogen POC Glucose 117 H 113 H 05/15/19 05:13 WBC RBC Hgb Hct MCV MCH MCHC RDW Std Deviation RDW Coeff of Kathy Plt Count MPV Immature Gran % (Auto) Neut % (Auto) Lymph % (Auto) [place] % (Auto) Eos % (Auto) Baso % (Auto) Absolute Neuts (auto) Absolute Lymphs (auto) Nucleated RBC % Sodium Pending Potassium Pending Chloride Pending Carbon Dioxide Pending Anion Gap Pending BUN Pending Creatinine Pending Estim Creat Clear Calc Est GFR (MDRD) Af Amer Pending Est GFR (MDRD) Non-Af Pending BUN/Creatinine Ratio Pending Glucose Pending Serum Osmolality Calcium Pending Magnesium Cortisol Urine Color Urine Clarity Urine pH Ur Specific [place] Urine Protein Urine Glucose (UA) Urine Ketones Urine Occult Blood Urine Nitrite Urine Bilirubin Urine Urobilinogen Ur Leukocyte Esterase Urine RBC Urine WBC Ur Squamous Epith Cells Urine Bacteria Urine Mucus Ur Random Sodium Urine Creatinine Urine Urea Nitrogen POC Glucose Clinical Impression(s) from Imaging Studies Brain CT 05/13/19 16:37 IMPRESSION: Normal unenhanced CT scan of the brain. Electronically Signed: Tino Alcantar MD at 17:50 EST , Service support , Current Medications Acetaminophen (Tylenol) 650 mg PO Q6H PRN PRN PRN Reason: Pain Score 1-3/Temp > 100.7 F Alprazolam (Xanax) 0.25 mg PO BID PRN PRN PRN Reason: ANXIETY Aspirin (Aspirin, Baby) 81 mg PO QHS [facility] Last Admin: 05/14/19 22:36 Dose: 81 mg Documented by: Clopidogrel Bisulfate (Plavix) 75 mg PO DAILY [facility] Last Admin: 05/14/19 09:44 Dose: 75 mg Documented by: Enoxaparin Sodium (Lovenox) 40 mg SC DAILY [facility] Last Admin: 05/14/19 09:44 Dose: 40 mg Documented by: Glucagon () 1 mg IM .X1 PRN PRN Reason: Hypoglycemia Hydralazine HCl (Apresoline Iv) 5 mg IV Q4H PRN PRN PRN Reason: BLOOD PRESSURE Last Admin: 05/14/19 04:22 Dose: 5 mg Documented by: Dextrose (Dextrose 10%-Water) 250 mls @ 999 mls/hr IV .Q16M PRN; Protocol PRN Reason: HYPOGLYCEMIA Sodium Chloride () 250 mls @ 15 mls/hr IV .[id number] PRN PRN Reason: Saline Flush Sodium Chloride () 250 mls @ 15 mls/hr IV .[id number] PRN PRN Reason: Additional IVPB Infusion Potassium Chloride 40 meq/ (Sodium Chloride) 1,020 mls @ 75 mls/hr IV .[id number] [facility] Last Admin: 05/14/19 22:37 Dose: Not Given Documented by: Insulin Human Lispro (Humalog Kwikpen (Bkc)) 0 unit SC Q6 [facility]; Protocol Last Admin: 05/15/19 04:53 Dose: Not Given Documented by: Lisinopril (Zestril) 20 mg PO DAILY [facility] Last Admin: 05/14/19 09:44 Dose: 20 mg Documented by: Metoprolol Tartrate (Lopressor (Beta Perfecto)) 25 mg PO TID [facility] Last Admin: 05/15/19 04:53 Dose: 25 mg Documented by: Ondansetron HCl (Zofran) 4 mg IV Q8H PRN PRN PRN Reason: NAUSEA/VOMITING Promethazine HCl (Phenergan) 12.5 mg IM Q6H PRN PRN PRN Reason: Breakthrough Nausea/Vomiting Sodium Chloride () 10 - 40 ml IV UD PRN PRN Reason: SALINE FLUSH Last Admin: 05/13/19 22:03 Dose: 10 ml Documented by: Medical Necessity - Tobacco Use Smoking Status: Former smoker Tobacco Use: Cigarettes Assessment/Plan RECOMMENDATIONS: 1. Supplemental IVF's can likely be discontinued, as the patient is tolerating PO intake. 2. Agree with discontinuation of HCTZ. 3. Will sign off from a critical care perspective. Please call with any additional questions. IMPRESSIONS: 1. Hyponatremia Suspect this is related to hypovolemia in the setting of decreased p.o. intake, emesis and concurrent diuretic use. HCTZ has been discontinued and the patient received supplemental IV fluid hydration, with subsequent improvement in sodium parameters. Supplemental IVF's can be discontinued from my perspective. 2. Coronary artery disease/peripheral vascular disease/diabetes mellitus/hypertension/hyperlipidemia Complicates care, management, recovery and prognosis. Home medications, with the exception of hydrochlorothiazide, can likely be continued. This note was generated with [employer] dictation software. It may contain incorrect words, spelling, and punctuation that were not noted in checking the note before signing. Code Visit Inpatient E&M: 86958 Subs Hosp L2
[2019-05-15 07:02] LABS: Anion Gap 5 (5-15); BUN 9 mg/dL (7-18); Calcium,Total 7.8 mg/dL (8.5-10.1); Chloride 104 mmol/L (98-107); Creatinine, Serum 0.69 mg/dL (0.55-1.02); EST Glomerular Filtration Rate 86 mL/min (>60); Est Glom Filt Rate - Afr Amer 104 mL/min (>60); Estimated Creatinine Clearance 36.81 ml/min; Glucose 111 mg/dL (74-106); Potassium 4.2 mmol/L (3.5-5.1); Sodium Level 133 mmol/L (136-145)
[2019-05-15] MEDS: Enoxaparin 40 MG/0.4 ML Syringe SC (09:10)
[2019-05-15] MEDS: Clopidogrel Bisulfate 75 MG Tablet PO (09:11)
[2019-05-15] MEDS: Lisinopril 20 MG Tablet PO (09:11)
[2019-05-15] MEDS: amLODIPine 5 MG Tablet PO (11:50)
--- NOTE | 2019-05-15 11:59 | PCM.DC.SUM ---
Discharge Date and Diagnosis Date of Admission: 05/13/19 Date of Discharge: 05/15/19 - Secondary Discharge Diagnosis Chronic Problems (Last Reviewed 04/28/19 @ 13:51 by Melody Mckeon) Cystocele (Chronic) Rectocele (Chronic) Type 2 diabetes mellitus (Chronic) Presence of stent in coronary artery (Chronic ~07/04/11) PCI/stent to LAD 2007; PCI/GUDELIA to instent restenosis of the LAD 07/04/11 Essential hypertension (Chronic) RBBB (right bundle branch block) (Chronic) Atherosclerotic heart disease of [place] coronary artery without angina pectoris (Chronic) PAD (peripheral artery disease) (Chronic) Carotid stenosis, bilateral (Chronic) Incomplete prolapse of vaginal vault (Chronic) puja consult. Peripheral arterial occlusive disease (Chronic) Hospital Course and Treatment Imaging Results: CT head-no acute findings CCM/Pulm Operations: None Procedures: None Summary of Care Provided: Mrs. Silverman is an 83 year old F who presented to the ED on 05/13/[address] Brown's office for abnormal labs. She had complained of generalized weakness, fatigue, nausea and vomiting. Outpatient lab work showed a serum potassium of 3.0 and a serum sodium of 112. Initial Na in ED was 117. A CT head showed no acute findings. TSH was found to be normal. She was initially given 3% in the ED and then once admitted was treated with NS. Her med list was significant for HCTZ and given the overall lack of sx upon presentation I suspect her Na had been low and dropped slowly over time and not acutely. Her last recorded Na in the system here was 04/15/19 and was 135 at that time. She responded well to IVF of NS with serum sodium rise that was appropriate. Her weakness, fatigue, nausea and vomiting had all resolved. Her BP meds were Metoprolol, Lisinopril and Norvasc upon discharge with discontinuation of the HCTZ upon d/c. This all was discussed at length with the patient. She will need a f/u BMP in 2-4 days and Mrs. Silverman states that she has an appt with Dr. Ramos on the and he usually draws lab in his office. She was discharged in stable condition and has f/u scheduled with urology as well. - Physical Exam Vitals/I&O's: Vital Signs Temp Pulse Resp BP Pulse Ox 97.9 F 55 L 17 161/73 H 100 05/15/19 08:51 05/15/19 08:51 05/15/19 08:51 05/15/19 11:48 05/15/19 08:51 Oxygen Delivery Method Room Air Weight: 67.8 kg Body Mass Index (BMI) 24.6 Intake and Output for Last 24 Hours 05/13/19 05/14/19 05/15/19 23:59 23:59 23:59 Intake Total 1300 / 1540 4141.50 / 4361.50 1435 / 1435 Output Total 2300 / 2300 Balance 1300 / 1140 1841.50 / 2061.50 1435 / 1435 General: Alert, Oriented x3, Cooperative, No apparent distress, Well developed, Well nourished HEENT: Atraumatic, PERRLA, EOMI, Normocephalic, EAC Clear Oral: Moist Mucosa, No Gingival or Mucosal Lesions/ Ulcerations Neck: Supple, No JVD, Negative Carotid Bruits, Negative Hepatojugular Reflux, Trachea Midline, Thyroid Normal Size and Texture Lungs: Clear to auscultation, Normal air movement, No rhonchi, No wheeze, No rales Cardiovascular: Regular rate, Regular Rhythm, Normal S1, Normal S2, No murmurs, No Ectopic Activity Abdomen: Bowel Sounds Present, Soft, Non Tender, Non-Distended, No Hepato-splenomegaly, No hernias noted Skin: No rashes, No breakdown Musculoskeletal: No Tenderness to Palpation of Joints or Extremities, No Muscle Wasting, Arthritic Changes - B hands Lymphatic: No Cervical, Supraclavicular, or Inguinal Adenopathy Neurological: Cranial nerves II-XII grossly intact, Deep Tendon Reflexes 2+/4 and Symmetrical, Neuro grossly intact, Motor Exam 5/5 strength throughout Psych/Mental Status: Appropriate, Alert and oriented to time, place, person, mood and affect Laboratory Results 05/14/19 12:15: Sodium 126 L, Potassium 4.3, Chloride 96 L, Carbon Dioxide 23.0, Anion Gap 7, BUN 9, Creatinine 0.87, Estim Creat Clear Calc 42.31, Est GFR (MDRD) Af Amer 80, Est GFR (MDRD) Non-Af 66, BUN/Creatinine Ratio 10.3, Glucose 155 H, Calcium 7.7 L 05/14/19 14:40: Ur Random Sodium 24 05/14/19 18:17: POC Glucose 115 H 05/14/19 22:30: Sodium 132 L, Potassium 4.1, Chloride 102, Carbon Dioxide 24.0, Anion Gap 6, BUN 10, Creatinine 0.80, Estim Creat Clear Calc 46.01, Est GFR (MDRD) Af Amer 89, Est GFR (MDRD) Non-Af 73, BUN/Creatinine Ratio 12.6, Glucose 116 H, Calcium 8.0 L 05/14/19 22:34: POC Glucose 117 H 05/15/19 04:52: POC Glucose 113 H 05/15/19 05:13: Sodium 133 L, Potassium 4.2, Chloride 104, Carbon Dioxide 24.0, Anion Gap 5, BUN 9, Creatinine 0.69, Estim Creat Clear Calc 36.81, Est GFR (MDRD) Af Amer 104, Est GFR (MDRD) Non-Af 86, BUN/Creatinine Ratio 13.0, Glucose 111 H, Calcium 7.8 L Current Medications Acetaminophen (Tylenol) 650 mg PO Q6H PRN PRN PRN Reason: Pain Score 1-3/Temp > 100.7 F Alprazolam (Xanax) 0.25 mg PO BID PRN PRN PRN Reason: ANXIETY Amlodipine Besylate (Norvasc) 5 mg PO DAILY [facility] Last Admin: 05/15/19 11:50 Dose: 5 mg Documented by: Aspirin (Aspirin, Baby) 81 mg PO QHS [facility] Last Admin: 05/14/19 22:36 Dose: 81 mg Documented by: Clopidogrel Bisulfate (Plavix) 75 mg PO DAILY [facility] Last Admin: 05/15/19 09:11 Dose: 75 mg Documented by: Enoxaparin Sodium (Lovenox) 40 mg SC DAILY [facility] Last Admin: 05/15/19 09:10 Dose: 40 mg Documented by: Glucagon () 1 mg IM .X1 PRN PRN Reason: Hypoglycemia Hydralazine HCl (Apresoline Iv) 5 mg IV Q4H PRN PRN PRN Reason: BLOOD PRESSURE Last Admin: 05/14/19 04:22 Dose: 5 mg Documented by: Dextrose (Dextrose 10%-Water) 250 mls @ 999 mls/hr IV .Q16M PRN; Protocol PRN Reason: HYPOGLYCEMIA Sodium Chloride () 250 mls @ 15 mls/hr IV .[id number] PRN PRN Reason: Saline Flush Sodium Chloride () 250 mls @ 15 mls/hr IV .[id number] PRN PRN Reason: Additional IVPB Infusion Insulin Human Lispro (Humalog Kwikpen (Bkc)) 0 unit SC Q6 [facility]; Protocol Last Admin: 05/15/19 04:53 Dose: Not Given Documented by: Lisinopril (Zestril) 20 mg PO DAILY [facility] Last Admin: 05/15/19 09:11 Dose: 20 mg Documented by: Metoprolol Tartrate (Lopressor (Beta Perfecto)) 25 mg PO TID [facility] Last Admin: 05/15/19 04:53 Dose: 25 mg Documented by: Ondansetron HCl (Zofran) 4 mg IV Q8H PRN PRN PRN Reason: NAUSEA/VOMITING Promethazine HCl (Phenergan) 12.5 mg IM Q6H PRN PRN PRN Reason: Breakthrough Nausea/Vomiting Sodium Chloride () 10 - 40 ml IV UD PRN PRN Reason: SALINE FLUSH Last Admin: 05/13/19 22:03 Dose: 10 ml Documented by: Home Medications: Medications to take at Discharge Aspirin [Aspirin, Baby] 81 mg PO QHS 06/07/16 Clopidogrel Bisulfate [Plavix] 75 mg PO DAILY 06/07/16 Hydrochlorothiazide [Hctz] 25 mg PO DAILY 06/07/16 coenzyme Q10 10 mg capsule 10 mg PO DAILY 01/11/19 nitroglycerin 0.4 mg sublingual tablet 0.4 mg SUBLINGUAL Q5-15M 01/11/19 multivitamin 1 tab PO DAILY 04/28/19 omega-3 fatty acids 1,000 mg capsule 1,000 mg PO DAILY 04/28/19 lisinopril 20 mg tablet 20 mg PO BID tab 04/29/19 metoprolol tartrate 25 mg tablet 25 mg PO TID tab 04/29/19 Cephalexin 500 mg PO BID 05/13/19 Metformin HCl [Metformin HCl ER] 500 mg PO BID 05/13/19 Ondansetron [Zofran] 8 mg PO Q8H PRN 05/13/19 Primary Care Physician: Tre Marks MD [Primary Care Provider] - Medical Necessity - Tobacco Use Smoking Status: Former smoker Tobacco Use: Cigarettes Meaningful Use Info Meaningful Use Diagnoses (Choose all that apply): None applicable Code Visit Inpatient E&M: 99697 Disch Hosp
--- NOTE | 2019-05-15 12:19 | DCINST_ITS ---
- Discharge Diagnoses Current Active Problems: Hyponatremia Reason(s) for Visit for Discharge Instructions: NEED Basic Metabolic Profile this week (pt sees doctor on the ) and stop HCTZ, start Norvasc You will use the following diet at home:: Calorie/Carbohydrate Controlled (specify 1200, 1400, etc), Cardiac Your food should be the consistency of: Regular Discharge Activity: Return to Normal Activity Call your doctor if you observe: Dizziness, Fainting spells Allergies/Adverse Reactions: Allergies pravastatin Adverse Reaction (Severe, Verified 05/13/19 15:20) myalgias Sulfa (Sulfonamide Antibiotics) Adverse Reaction (Mild, Verified 05/13/19 16:11) stomach upset atorvastatin Adverse Reaction (Verified 05/13/19 15:20) myalgias Medications to take at Discharge Aspirin [Aspirin, Baby] 81 mg PO QHS 06/07/16 Clopidogrel Bisulfate [Plavix] 75 mg PO DAILY 06/07/16 coenzyme Q10 10 mg capsule 10 mg PO DAILY 01/11/19 nitroglycerin 0.4 mg sublingual tablet 0.4 mg SUBLINGUAL Q5-15M 01/11/19 multivitamin 1 tab PO DAILY 04/28/19 omega-3 fatty acids 1,000 mg capsule 1,000 mg PO DAILY 04/28/19 lisinopril 20 mg tablet 20 mg PO BID tab 04/29/19 metoprolol tartrate 25 mg tablet 25 mg PO TID tab 04/29/19 Cephalexin 500 mg PO BID 05/13/19 Metformin HCl [Metformin HCl ER] 500 mg PO BID 05/13/19 Ondansetron [Zofran] 8 mg PO Q8H PRN 05/13/19 Amlodipine [Norvasc] 5 mg PO DAILY #30 tab 05/15/19 The following prescriptions were given: Amlodipine [Norvasc] 5 mg PO DAILY #30 tab Transmission Status: Pending to [facility] [place] #30 Primary Care Physician: Tre Marks MD [Primary Care Provider] - Test Results: Test results from this visit will be discussed in further detail at your follow- up appointment, if applicable. Proposed Discharge Date: 05/15/19
== END 2019-05-15 13:28 | disposition home or self-care (01) | DRG 983 ==
LOC: ED 16:16 → ICU 16:45 → PCU 05-14 19:44
PROVIDERS: Internal Medicine Critical Care Medicine; Nurse Practitioner Family; Admitting Provider Internal Medicine; Emergency Provider Emergency Medicine; Family Provider Family Medicine; PCP Family Medicine; Referring Provider Internal Medicine; Visit Provider Internal Medicine
DX: E87.1 Hypo-osmolality and hyponatremia (principal); Z95.5 Presence of coronary angioplasty implant and graft; I25.10 Atherosclerotic heart disease of native coronary artery without angina pectoris; E78.5 Hyperlipidemia, unspecified; I45.10 Unspecified right bundle-branch block; I16.0 Hypertensive urgency; I10 Essential (primary) hypertension; E87.6 Hypokalemia; Z98.890 Other specified postprocedural states; Z79.84 Long term (current) use of oral hypoglycemic drugs; Z79.82 Long term (current) use of aspirin; Z66 Do not resuscitate; I73.9 Peripheral vascular disease, unspecified; E11.9 Type 2 diabetes mellitus without complications; I65.23 Occlusion and stenosis of bilateral carotid arteries; Z87.891 Personal history of nicotine dependence; N99.3 Prolapse of vaginal vault after hysterectomy; N95.2 Postmenopausal atrophic vaginitis
CPT/HCPCS: 36415; 70450; 74022; 80048; 81001; 82533; 82570; 82962; 83036; 83735; 83930; 84300; 84540; 85025; 85027; 93005; 96361; 96372; 96374; 97110; 97116; 97161; 97165; 99218; 99251; 99284; J7030; J7120; A4216; G0378; G0379; G0463; J2405

== ENCOUNTER → 2019-05-20 08:17 | Outpatient (CLI) | payer MEDICARE, SELFPAY ==
[2019-05-13 17:36] VITALS: BMI 24.6
[2019-05-20 11:23] LABS: BUN 14 mg/dL (7-18); Creatinine, Serum 0.87 mg/dL (0.55-1.02); EST Glomerular Filtration Rate 66 mL/min (>60); Glucose 99 mg/dL (74-106)
[2019-05-20 11:24] LABS: Anion Gap 7 (5-15); Calcium,Total 9.3 mg/dL (8.5-10.1); Chloride 101 mmol/L (98-107); Est Glom Filt Rate - Afr Amer 80 mL/min (>60); Potassium 4.3 mmol/L (3.5-5.1); Sodium Level 137 mmol/L (136-145)
== END ==
PROVIDERS: Family Provider Family Medicine; PCP Family Medicine; Visit Provider Family Medicine
DX: E87.1 Hypo-osmolality and hyponatremia (principal)
CPT/HCPCS: 36415; 80048

== ENCOUNTER → 2019-10-24 09:25 | Outpatient (CLI) | payer MEDICARE, SELFPAY ==
[2019-05-13 17:36] VITALS: BMI 24.6
[2019-10-24 18:00] LABS: Vitamin D,25 Hydroxy 23.2 ng/mL
[2019-10-24 18:23] LABS: AST(SGOT) 20 U/L (15-37); Alanine Aminotransfer ALT/SGPT 21 U/L (13-56); Albumin, Serum 3.8 g/dL (3.2-5.0); Alkaline Phosphatase 72 U/L (45-117); Anion Gap 12 (5-15); BUN 11 mg/dL (7-18); BUN/Creat Ratio 13.4 RATIO (10-20); Calcium,Total 9.2 mg/dL (8.5-10.1); Chloride 100 mmol/L (98-107); Cholesterol 221 mg/dL (200); Creatinine, Serum 0.82 mg/dL (0.55-1.02); EST Glomerular Filtration Rate 71 mL/min (>60); Est Glom Filt Rate - Afr Amer 86 mL/min (>60); Globulin 3.9 g/dL (2.2-4.2); Glucose 96 mg/dL (74-106); High Density Lipoprotein 57 mg/dL; Protein, Total 7.7 g/dL (6.4-8.2); Sodium Level 137 mmol/L (136-145); Thyroid Stim Hormone (TSH) 2.22 uIU/mL (0.358-3.74); Triglycerides 248 mg/dL; Very Low Density Lipoprotein 50 mg/dL (5-40)
== END ==
PROVIDERS: PCP Family Medicine; Referring Provider Family Medicine; Visit Provider Family Medicine
DX: E78.5 Hyperlipidemia, unspecified (principal); E11.9 Type 2 diabetes mellitus without complications
CPT/HCPCS: 36415; 80053; 80061; 82306; 84443

== ENCOUNTER → 2019-11-15 06:18 | Outpatient (CLI) | payer MEDICARE, SELFPAY ==
[2019-11-02 09:11] VITALS: BMI 24.3
--- NOTE | 2019-11-15 07:47 | STRESSREP ---
Stress Test Report Date: 11-15-2019 Procedure: Pharmacologic stress nuclear imaging study Indications: Fatigue; CAD; PCI Consent: Per the patient Procedure: The patient underwent pharmacologic (Regadenoson) evaluation with a peak heart rate of 85 beats per minute (62 %predicted maximal heart rate) and a peak blood pressure of 154/60 mmHg. The baseline ECG demonstrated normal sinus rhythm; right bundle branch block pattern. The peak pharmacologic ECG demonstrated no obvious ECG changes. There was a rare PVC during recovery. There was no complaint of chest discomfort during pharmacologic infusion or recovery. The examination was discontinued secondary to completion of protocol. Impression: 1. Pharmacologic (Regadenoson) evaluation 2. Peak pharmacologic ECG with new right bundle branch block pattern with no obvious ECG changes. 3. There were no cardiac dysrhythmias pretest, during pharmacologic infusion, or recovery. 4. Nuclear images pending Myocardial perfusion imaging study: Technique: The patient was injected with 11.9 millicuries of technetium 99m Cardiolite and subsequently rest SPECT Cardiolite nuclear imaging was obtained in the horizontal long, vertical long, and short axis views. The patient underwent pharmacologic (Regadenoson) evaluation with a peak heart rate of 85 beats per minute (62 % percent predicted maximal heart rate) and a peak blood pressure of 154/60 mmHg. The patient was injected with 35.7 millicuries of technetium 99m Cardiolite and subsequently stress SPECT Cardiolite nuclear imaging was obtained in the horizontal long, vertical long, and short axis views. A gated Cardiolite study at peak stress was obtained. Interpretation: Rest and stress SPECT Cardiolite nuclear imaging status post realignment, normalization, and attenuation correction demonstrate relative uniform tracer uptake and myocardial perfusion appearing within normal limits. There is end systolic thickening and brightening. The gated Cardiolite study demonstrates myocardial thickening and inward wall motion. The reported LVEF is 74 %. Impression: 1. Rest and stress SPECT Cardiolite nuclear imaging demonstrate relative uniform tracer uptake and myocardial perfusion appearing within normal limits. 2. The gated Cardiolite study reports an LVEF of 74 %. This note was generated with [employer] software. It may contain incorrect words, spelling, and punctuation that were not noted in checking the note before signing.
== END ==
PROVIDERS: PCP Family Medicine; Referring Provider Nurse Practitioner Family; Visit Provider Nurse Practitioner Family
DX: I25.10 Atherosclerotic heart disease of native coronary artery without angina pectoris (principal); I10 Essential (primary) hypertension; Z95.5 Presence of coronary angioplasty implant and graft; R53.83 Other fatigue
CPT/HCPCS: 78452; 93017; A9500; A4216; J2785

== ENCOUNTER → 2020-02-23 12:49 | Outpatient (CLI) | payer MEDICARE, SELFPAY ==
[2019-11-02 09:11] VITALS: BMI 24.3
--- NOTE | 2020-02-23 12:52 | ART_ITS ---
Reason For Study: PAD Procedure A bilateral lower extremity continuous wave Doppler with analog waveform analysis,segmental pressures,and ankle brachial indexes without exercise. Left Segmental Pressures Left brachial= 163mmHg. Left calf = >254mmHg. Left posterior tibial artery = 86mmHg. Left dorsalis pedis artery = 54mmHg. Left digit = 38 mmHg. The left dorsalis pedis waveforms are monophasic. The left posterior tibial artery waveforms are monophasic. Right Segmental Pressures Right brachial= 143mmHg. Right calf = >254mmHg. Right posterior tibial artery = 75mmHg. Right dorsalis pedis artery = 139mmHg. Right digit = 39 mmHg. The right dorsalis pedis waveforms are monophasic. The right posterior tibial artery waveforms are monophasic. Indices The right ankle brachial index by the dorsalis pedis is 0.85. The right ankle brachial index by the posterior tibial artery is 0.46. The right digital-brachial index is 0.24. The left ankle brachial index by the dorsalis pedis is 0.33. The left ankle brachial index by the posterior tibial artery is 0.53. The left digital-brachial index is 0.23. Interpretation Summary Moderately severe right lower extremity arterial occlusive disease at rest Severe left lower extremity arterial occlusive disease at rest Markedly abnormal bilateral digital brachial indices; particularly flattened on the left. Ordering Physician: Mati Escudero Referring Physician: Mc Marks MD Performed By: Daina Arvizu RVT
== END ==
PROVIDERS: PCP Family Medicine; Referring Provider Podiatrist; Visit Provider Podiatrist
DX: I73.9 Peripheral vascular disease, unspecified (principal)
CPT/HCPCS: 93923

== ENCOUNTER → 2020-04-11 09:51 | Outpatient (CLI) | payer MEDICARE, SELFPAY ==
[2019-11-02 09:11] VITALS: BMI 24.3
--- NOTE | 2020-04-11 09:56 | ADUL_ITS ---
Reason For Study: atherosclerosis Left Velocities Ext Iliac Artery, dist = 304.4 cm./sec. Common Femoral Artery, mid = 18.9 cm./sec. Supf. Femoral Artery, prox = 58.1 cm./sec. Supf. Femoral Artery, mid = 159.2 cm./sec. Supf. Femoral Artery, dist = 38.8 cm./sec. Profunda Femoral Artery = 41.7 cm./sec. Popliteal Artery, proximal, = 51.1 cm./sec. Popliteal Artery, mid = 80.6 cm./sec. Popliteal Artery, distal = 48.6 cm./sec. Post. Tibial Artery, prox = 24.1 cm./sec. Post Tibial Artery, mid = 14.2 cm./sec. Post Tibial Artery, dist. = 20.4 cm./sec. Peroneal Artery, prox = 21.6 cm./sec. Peroneal Artery, mid = 52.3 cm./sec. Peroneal Artery,dist. = 67.0 cm./sec. Ant. Tibial Artery, distal = 117.6 cm./sec. Unable to obtain flow in Prox and Mid [place]. Procedure The exam was diagnostic. Exam performed in department. 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 Appears occlussion in anterior tibial artery. Ordering Physician: Pablo Nicholson Performed By: Juan Oneal RVT
--- NOTE | 2020-04-11 09:56 | ART_ITS ---
Reason For Study: atherosclerosis Procedure A bilateral lower extremity continuous wave Doppler with analog waveform analysis and ankle brachial indexes. Left Segmental Pressures Left brachial= 186mmHg. Left posterior tibial artery = 110mmHg. Left dorsalis pedis artery = 93mmHg. Left digit = 23 mmHg. The left dorsalis pedis waveforms are monophasic. The left posterior tibial artery waveforms are monophasic. Right Segmental Pressures Right brachial= 158mmHg. Right posterior tibial artery = 99mmHg. Right dorsalis pedis artery = 140mmHg. Right digit = 55 mmHg. The right dorsalis pedis waveforms are monophasic. The right posterior tibial artery waveforms are monophasic. Indices The right ankle brachial index by the posterior tibial artery is .53. The right ankle brachial index by the dorsalis pedis is .75. The right digital-brachial index is .3. The left ankle brachial index by the posterior tibial artery is .59. The left ankle brachial index by the dorsalis pedis is .5. The left digital-brachial index is .12. 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 Small vessel disease with DBI 0.3 and 0.12. Ordering Physician: Pablo Nicholson Performed By: LEIGHANN KEVIN [facility]
== END ==
PROVIDERS: PCP Family Medicine; Referring Provider Surgery Vascular Surgery; Visit Provider Surgery Vascular Surgery
DX: I70.213 Atherosclerosis of native arteries of extremities with intermittent claudication, bilateral legs (principal); M79.675 Pain in left toe(s); I25.10 Atherosclerotic heart disease of native coronary artery without angina pectoris; I10 Essential (primary) hypertension; E11.9 Type 2 diabetes mellitus without complications
CPT/HCPCS: 93922; 93926

== ENCOUNTER → 2020-04-13 06:58 | Outpatient (CLI) | payer MEDICARE, SELFPAY ==
[2019-11-02 09:11] VITALS: BMI 24.3
--- NOTE | 2020-04-13 07:02 | BI_ITS ---
MAMMOGRAPHY - BILATERAL SCREENING REASON FOR EXAM: Female, 84 years old. Routine annual screening examination. PERTINENT HISTORY: Aunt with breast cancer. TECHNIQUE: Digital bilateral breast orlin (3D mammographic acquisition) in the CC and MLO projections. 2-D mediolateral oblique (MLO) and craniocaudad (CC) views of both breasts were obtained. CAD: Full Field Digital Mammography with Computer Added Detection was performed. COMPARISON: Comparison is made with prior outside examination dated 05/23/2018. FINDINGS: Breast Composition: There are scattered areas of fibroglandular density in the retroareolar regions bilaterally. There are no dominant masses or suspicious calcifications. No other significant abnormalities are identified. There has been no significant change since the prior study. BI/SCREEN MAMM (CAD) W/ORLIN BILAT IMPRESSION: Stable bilateral screening mammogram. Yearly follow-up mammogram recommended. (A) ASSESSMENT CATEGORY: BIRADS Category 2: Benign. A letter regarding these results will be sent to the patient by the facility within 30 days. Approximately 10% of breast cancers are not detected by mammography. A normal mammogram should not delay biopsy of a clinically suspicious abnormality. [id number] Electronically Signed: Rigo Avalos, at 8:19 EST , Service support ,
== END ==
PROVIDERS: PCP Family Medicine; Referring Provider Family Medicine; Visit Provider Family Medicine
DX: Z12.31 Encounter for screening mammogram for malignant neoplasm of breast (principal); Z80.3 Family history of malignant neoplasm of breast
CPT/HCPCS: 77063; 77067

== ENCOUNTER → 2020-05-07 15:37 | Outpatient (CLI) | payer MEDICARE, SELFPAY ==
[2019-11-02 09:11] VITALS: BMI 24.3
[2020-05-07 17:47] LABS: Absolute Lymphocyte Count 1.99 X10^3/uL (0.83-4.51); Absolute Neutrophil Count 4.3 X10^3/uL (2.0-7.7); Basophil# 0.05 X10^3/uL; Basophil% 0.7 % (0-1); Eosinophils% 1.4 % (0-5); Hematocrit 40.2 % (37-47); Hemoglobin 12.8 g/dL (12.0-15.0); Lymphocyte # 1.99 X10^3/ul (4.0); Mean Corp Hgb Conc 31.8 g/dL (32-36); Mean Corpuscular Hgb 29.4 pg (27.0-32.0); Mean Corpuscular Volume 92.4 fL (81-99); Mean Platelet Vol. 9.2 fl (6.2-12.0); Monocyte# 0.61 X10^3/uL; Monocyte% 8.6 % (0-10); NRBC Flagged by Analyzer 0 % (0-5); Neutrophil # 4.34 X10^3/uL (2.7-7.7); Platelet Count 374 K/mm3 (150-450); RBC Distribution Width CV 12.9 % (11.6-14.6); RBC Distribution Width SD 43.6 fl (35.1-43.9); Red Blood Count 4.35 M/mm3 (4.2-5.4); White Blood Count 7.1 K/mm3 (4.4-11.0)
[2020-05-07 18:52] LABS: AST(SGOT) 19 U/L (15-37); Alanine Aminotransfer ALT/SGPT 22 U/L (13-56); Albumin, Serum 3.8 g/dL (3.2-5.0); Alkaline Phosphatase 88 U/L (45-117); Anion Gap 9 (5-15); BUN 18 mg/dL (7-18); Calcium,Total 9.7 mg/dL (8.5-10.1); Chloride 101 mmol/L (98-107); EST Glomerular Filtration Rate 56 mL/min (>60); Est Glom Filt Rate - Afr Amer 68 mL/min (>60); Globulin 3.9 g/dL (2.2-4.2); Glucose 135 mg/dL (74-106); Potassium 3.8 mmol/L (3.5-5.1); Protein, Total 7.7 g/dL (6.4-8.2); Sodium Level 138 mmol/L (136-145); Thyroid Stim Hormone (TSH) 2.76 uIU/mL (0.358-3.74)
[2020-05-07 19:01] LABS: Vitamin D,25 Hydroxy 32.9 ng/mL
== END ==
PROVIDERS: PCP Family Medicine; Visit Provider Family Medicine
DX: E11.9 Type 2 diabetes mellitus without complications (principal); E55.9 Vitamin D deficiency, unspecified; L30.9 Dermatitis, unspecified
CPT/HCPCS: 36415; 80053; 82306; 84443; 85025

== ENCOUNTER → 2020-05-28 11:19 | Outpatient (CLI) | payer MEDICARE, SELFPAY ==
[2019-11-02 09:11] VITALS: BMI 24.3
--- NOTE | 2020-05-28 11:23 | RAD_ITS ---
STUDY: X-RAY - LEFT FOOT CLINICAL: Pain/ulcer of the first and fifth toes for 3 months. TECHNIQUE: 3 view(s) of the foot. COMPARISON: None. FINDINGS: Normal talus, calcaneus, and tarsal bones. Normal visualized subtalar, talonavicular, calcaneocuboid, tarsal and tarsometatarsal articulations. Normal metatarsi. Normal metatarsophalangeal joint of the great toe. Normal tibial and fibular sesamoid bones. Normal interphalangeal joint of the great toe. Normal phalanges of the great toe. Normal second through fifth metatarsophalangeal joints. There is joint space narrowing of the interphalangeal joints of the lesser toes. There is vascular calcification. 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 Electronically Signed: Jose Salinas MD at 12:10 EST Tel , Service support ,
== END ==
PROVIDERS: PCP Family Medicine; Referring Provider Family Medicine; Visit Provider Family Medicine
DX: L97.529 Non-pressure chronic ulcer of other part of left foot with unspecified severity (principal)
CPT/HCPCS: 73630

== ENCOUNTER 2020-06-12 09:28 | Day surgery (SDC) | payer MEDICARE, SELFPAY ==
[2019-11-02 09:11] VITALS: BMI 24.3
[2020-06-05 10:19] VITALS: BMI 53.0
[2020-06-11 09:12] VITALS: BMI 24.2
[2020-06-12 09:45] LABS: Hematocrit 38.4 % (37-47); Hemoglobin 12.6 g/dL (12.0-15.0); Mean Corp Hgb Conc 32.8 g/dL (32-36); Mean Corpuscular Hgb 29.6 pg (27.0-32.0); Mean Corpuscular Volume 90.1 fL (81-99); Mean Platelet Vol. 8.6 fl (6.2-12.0); Platelet Count 338 K/mm3 (150-450); RBC Distribution Width CV 12.6 % (11.6-14.6); RBC Distribution Width SD 41.1 fl (35.1-43.9); Red Blood Count 4.26 M/mm3 (4.2-5.4); White Blood Count 8.2 K/mm3 (4.4-11.0)
[2020-06-12 09:56] LABS: Albumin, Serum 3.8 g/dL (3.2-5.0); BUN 18 mg/dL (7-18); BUN/Creat Ratio 21.4 RATIO (10-20); Calcium,Total 9.2 mg/dL (8.5-10.1); Chloride 105 mmol/L (98-107); Creatinine, Serum 0.84 mg/dL (0.55-1.02); EST Glomerular Filtration Rate 68 mL/min (>60); Est Glom Filt Rate - Afr Amer 83 mL/min (>60); Estimated Creatinine Clearance 43.05 ml/min; Glucose 119 mg/dL (74-106); Phosphorus 3.6 mg/dL (2.5-4.9); Potassium 4.4 mmol/L (3.5-5.1); Sodium Level 137 mmol/L (136-145)
--- NOTE | 2020-06-12 13:03 | PCM.OPRPT ---
Problem List (1) Peripheral arterial occlusive disease Status: Chronic Report of Operation Date of Procedure: 06/12/20 Pre-Operative Diagnosis: PAD with ischemia of the left toe Post-Operative Diagnosis: The same Surgery/Procedure Performed:: 1. Ultrasound-guided access retrograde right common femoral artery. 2. Left lower extremity angiogram with catheter placed into the tibioperoneal trunk. 3. Balloon angioplasty of the common femoral artery with a 5 and 6 mm balloon. 4. Balloon the popliteal artery with a 4 x 80 x 3 inflations. 5. Closure with Star close Type of Anesthesia:: Sedation,Conscious Description of Procedure: Patient brought to the Cold Working Inspector. Underwent appropriate timeout consent. Underwent sedation. Was prepped and draped in a sterile fashion. We did ultrasound-guided access retrograde in the right common femoral artery. Put a Glidewire up and then a 5 Afghan sheath. We got up and over the bifurcation. First we gave 5000 units of heparin. We did an aortogram with bilateral iliofemoral angiogram. It showed all this was widely patent except for a subtotal occlusion in the left common femoral artery. We then got up and over the bifurcation and imaged in this in different views. We were able to get the wire catheter across this and brought in a longer 6 Afghan sheath. We ballooned with a 5 mm balloon and then a 6 x 40 balloon for over 2 minutes. Completion was much improved with normal flow channel and better flow through here. We imaged down the leg and it showed segmental areas of moderate severe stenosis in the popliteal artery. Below the knee the main runoff was with a large peroneal that that had collaterals into the plantars and dorsalis pedis. We then was able get a wire through these popliteal occlusions and then brought in a 4 x 80 balloon first inflated that the proximal popliteal where it was very calcified and difficult to cross. We then were able to pass the balloon down the right around the knee joint where there is moderate stenosis. We inflated this for over 2 minutes. We then pulled the balloon back in with 2 more inflations each for around a minute and 1/2 to 2 minutes. Completion was markedly improved with much better flow. We then removed out the sheath the brought in a Star close and deployed with good hemostasis. He was then brought to recovery stable condition. Sedation: This 84-year-old female underwent moderate sedation given by Dr. Pablo Nicholson. She was monitored EKG blood pressure and pulse ox for over the 30 minutes of the procedure. See the EMR for the complete record.
[2020-06-12 15:30] VITALS: BP 169/94; PULSE 76; RESP 18; O2SAT 100
[2020-06-12 15:32] VITALS: PULSE 71
[2020-06-12 16:20] VITALS: BP 118/89; PULSE 73; RESP 18; O2SAT 98
[2020-06-12 17:30] VITALS: BP 171/60; PULSE 66; RESP 18; TEMP 36.7; O2SAT 98
[2020-06-12 18:31] VITALS: BP 152/56; PULSE 68; RESP 18; O2SAT 97
== END 2020-06-12 15:26 | disposition home or self-care (01) ==
LOC: CLSP 10:36 → PCU 15:17
PROVIDERS: PCP Family Medicine; Referring Provider Surgery Vascular Surgery; Visit Provider Surgery Vascular Surgery
DX: I70.213 Atherosclerosis of native arteries of extremities with intermittent claudication, bilateral legs (principal); E11.9 Type 2 diabetes mellitus without complications; Z87.891 Personal history of nicotine dependence; M79.675 Pain in left toe(s); I25.10 Atherosclerotic heart disease of native coronary artery without angina pectoris; I10 Essential (primary) hypertension; Z95.5 Presence of coronary angioplasty implant and graft
CPT/HCPCS: 36245; 36415; 37224; 75710; 76937; 80069; 85027; 93005; 99152; 99153; J7040; C1725; C1760; C1769; C1887; C1894

== ENCOUNTER 2020-06-19 08:30 | Outpatient (RCR) | payer MEDICARE, SELFPAY ==
[2019-11-02 09:11] VITALS: BMI 24.3
[2020-06-05 10:19] VITALS: BP 111/66; PULSE 64; RESP 18; TEMP 36.6; BMI 53.0
--- NOTE | 2020-06-05 11:21 | HP.PCM_ITS ---
(1) Non-pressure chronic ulcer of other part of left foot with fat layer exposed Status: Chronic Code(s): L97.522 - Non-pressure chronic ulcer of other part of left foot with fat layer exposed (2) Type 2 diabetes mellitus Status: Chronic Code(s): E11.9 - Type 2 diabetes mellitus without complications (3) PAD (peripheral artery disease) Status: Chronic Code(s): I73.9 - Peripheral vascular disease, unspecified (4) Peripheral arterial occlusive disease Status: Chronic Code(s): I77.9 - Disorder of arteries and arterioles, unspecified History of Present Illness Date of Service: 06/05/20 Chief Complaint: Left foot first digit ulceration. Left foot fifth digit ulceration. PVD, PAD History of Wound: Patient is referral [facility] 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 Patient is to follow-up with Dr. Nicholson with procedure next week for this. Patient relates no prior other issues with her feet or history of ulcerations with. She does admit to pain in her left toes. Patient is diabetic as well but states is very well controlled averaging blood sugar in the low 100s. Patient has been putting Bactroban and Band-Aid on the wounds. Patient denies any trauma or rubbing to start the wounds. 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 Peripheral arterial occlusive disease (Chronic) Surgical History: - - Pelvic floor reconstruction Allergies/Adverse Reactions: Allergies pravastatin Adverse Reaction (Severe, Verified 11/02/19 09:12) myalgias Sulfa (Sulfonamide Antibiotics) Adverse Reaction (Mild, Verified 11/02/19 09:12) stomach upset atorvastatin Adverse Reaction (Verified 11/02/19 09:12) myalgias Home Medications: Ambulatory Orders Medication Instructions Recorded Aspirin [Aspirin, Baby] 81 mg PO QHS 06/07/16 Clopidogrel Bisulfate [Plavix] 75 mg PO DAILY 06/07/16 coenzyme Q10 10 mg capsule 10 mg PO DAILY 01/11/19 nitroglycerin 0.4 mg sublingual 0.4 mg SUBLINGUAL Q5-15M 01/11/19 tablet multivitamin 1 tab PO DAILY 04/28/19 omega-3 fatty acids 1,000 mg 1,000 mg PO DAILY 04/28/19 capsule lisinopril 20 mg tablet 20 mg PO BID tab 04/29/19 metoprolol tartrate 25 mg tablet 25 mg PO TID tab 04/29/19 Metformin HCl [Metformin HCl ER] 500 mg PO BID 05/13/19 Ondansetron [Zofran] 8 mg PO Q8H PRN 05/13/19 cholecalciferol (vitamin D3) 50 50 mcg PO DAILY 11/02/19 mcg (2,000 unit) capsule - Family History Maternal Family History: Family History (Last Reviewed 05/13/19 @ 16:09 by Angela English NP, RADIOLOGY RECEPTIONIST-C) Father Diabetes Heart disease Brother Diabetes Colon cancer Brother Diabetes - - Dementia Smoking Status: Former smoker Review of Systems Constitutional: Denies: Chills, Fever, Fatigue HEENT: Denies: Hard of Hearing Cardiovascular: Denies: Chest Pain, Edema Respiratory: Denies: Cough, Shortness of Breath Gastrointestinal: Denies: Nausea, Vomiting Musculoskeletal: Reports: Foot Pain Skin: Reports: Wounds - left foot toes 1/5 Neurological: Reports: Tingling Hematologic/ Lymphatic: Reports: Easy Bleeding Subjective: Patient seen and examined bedside. Patient denies any nausea, fever, chills, chest pain, shortness of breath, cough, streaking, purulence, vomiting. - Physical Exam Vital Signs Temp Pulse Resp BP 97.8 F 64 18 111/66 06/05/20 10:19 06/05/20 10:19 06/05/20 10:19 06/05/20 10:19 General: Alert, Oriented x3 HEENT: Atraumatic Extremities: No clubbing, No cyanosis, No edema, Capillary Refill Less than 3 Seconds, No Calf Tenderness, Diminished Peripheral Pulses - Monophasic DP and PT bilateral on Doppler, Tenderness - First and fifth left toes, - - Bruise noted to medial first MPJ on right foot, feet warm with mild red discoloration noted to the toes noninfectious Skin: Ulcer/ Wound - Left fifth and first toes. No malodor, purulence, probing to bone, streaking, or other signs of infection. Foot skin is atrophic and hairless. Granular base with sanguineous drainage after debridement. no signs of infection. Some chronic rubor noted to digits bilateral Wound Measurements and Assessment WC - Nurse 1 - General Ulcer Measurement Start: 06/05/20 10:13 Freq: Status: Active Protocol: Activity Type Activity Date Activity User E-Sign Co-Sign Detail Recorded Client Recorded Date Recorded By Document 06/05/20 10:19 DL [id number] 06/05/20 10:35 DL 06/05/20 10:19 Wound Center Nurse 1 [Ulcer Assessment] #2 L 5th toe -Current Size (cm) - Length 0.8 -Current Size (cm) - Width 0.6 -Current Size (cm) - Depth 0.1 -Total Square Cm 0.48 -Photo Taken Yes -Classification - Luciano Grading ( Grade 2 Diabetic Ulcer) -Exudate Amt None Present -Wound Margin Distinct, Outline Attached -Granulation Amt Small (1-33%) -Granulation Quality Lennox -Necrosis Amt Small (1-33%) -Necrotic Tissue Type Adherent Slough -Structure Exposed N/A -Texture (Dot-wound Skin Appearance) Scarring -Moisture (Dot-wound Skin Appearance No Abnormality ) -Color (Dot-wound Skin Appearance) Erythema -Temperature (Dot-wound Skin No Abnormality Appearance) (Pt Warm) -Tenderness on Palpation (Dot-wound No Skin Appearance) -Ulcer Cleansing Rinsed/ Irrigated with Saline -Foul Odor after Cleansing No -Anesthetic Used 4% Lidocaine Solution #1 L Grt Toe -Current Size (cm) - Length 1.8 -Current Size (cm) - Width 1 -Current Size (cm) - Depth 0.1 -Total Square Cm 1.8 -Photo Taken Yes -Classification - Luciano Grading ( Grade 2 Diabetic Ulcer) -Exudate Amt None Present -Wound Margin Distinct, Outline Attached -Granulation Amt Large (67-100%) -Granulation Quality Lennox -Necrosis Amt None Present (0 %) -Structure Exposed N/A -Texture (Dot-wound Skin Appearance) Localized Edema -Moisture (Dot-wound Skin Appearance No Abnormality ) -Color (Dot-wound Skin Appearance) Erythema -Temperature (Dot-wound Skin No Abnormality Appearance) (Pt Warm) -Tenderness on Palpation (Dot-wound No Skin Appearance) -Ulcer Cleansing Wound Cleanser -Foul Odor after Cleansing No -Anesthetic Used 4% Lidocaine Solution WC - Nurse 2 - General Ulcer CM Notes Start: 06/05/20 10:13 Freq: Status: Active Protocol: Activity Type Activity Date Activity User E-Sign Co-Sign Detail Recorded Client Recorded Date Recorded By Document 06/05/20 11:05 RICHI [id number] 06/05/20 11:13 RICHI 06/05/20 11:05 Wound Center Nurse 2 [Procedure/Treatment] #2 L 5th toe -Time 11:05 -Correct Patient Yes -Correct Side, Site, Position Yes -Correct Procedure Yes -Procedure Performed Yes -Type of Procedure Debridement -Clinical Debridement Subcutaneous -Tissue Removed Subcutaneous -Post Debridement (cm) - Length 0.7 -Post Debridement (cm) - Width 0.5 -Post Debridement (cm) - Depth 0.1 -Total Square (Post) (cm) 0.35 -Area of Debridement (cm) - Length 0.7 -Area of Debridement (cm) - Width 0.5 -Total Square (Area) (cm) 0.35 -Tunneling No -Undermining/Tunneling No -Circular Undermining No -Wound/Ulcer Outcome Not Healed -Ulcer Cleansing Rinsed/ Irrigated with Saline -Foul Odor after Cleansing No -Bioengineered Tissue No -Bleeding Controlled with Pressure -Offloading No -Treatment Response Procedure Tolerated Well -Debridement - Subq, 1st 20sq cm Yes #1 L Grt Toe -Time 11:06 -Correct Patient Yes -Correct Side, Site, Position Yes -Correct Procedure Yes -Procedure Performed Yes -Type of Procedure Debridement -Clinical Debridement Subcutaneous -Tissue Removed Subcutaneous -Post Debridement (cm) - Length 0.8 -Post Debridement (cm) - Width 0.4 -Post Debridement (cm) - Depth 0.1 -Total Square (Post) (cm) 0.32 -Area of Debridement (cm) - Length 0.8 -Area of Debridement (cm) - Width 0.4 -Total Square (Area) (cm) 0.32 -Tunneling No -Undermining/Tunneling No -Circular Undermining No -Wound/Ulcer Outcome Not Healed -Ulcer Cleansing Rinsed/ Irrigated with Saline -Foul Odor after Cleansing No -Bioengineered Tissue No -Bleeding Controlled with Pressure -Offloading No -Treatment Response Procedure Tolerated Well -Debridement - Subq, 1st 20sq cm No [See Physician Procedure note for Specifics] Pain Scale: 0-10 Numeric [Pain] -Is Patient Pain Free? Yes Musculoskeletal: Tenderness - To first and fifth digit left foot Neurological: - - Decrease of epicritic sensation Psych/Mental Status: Normal Affect, Appropriate, Alert and oriented to time, place, person, mood and affect Debridement Note Post-Debridement Measurements/Treatment WC - Nurse 2 - General Ulcer CM Notes Start: 06/05/20 10:13 Freq: Status: Active Protocol: Activity Type Activity Date Activity User E-Sign Co-Sign Detail Recorded Client Recorded Date Recorded By Document 06/05/20 11:05 RICHI [id number] 06/05/20 11:13 RICHI 06/05/20 11:05 Wound Center Nurse 2 #2 L 5th toe -Time 11:05 -Correct Patient Yes -Correct Side, Site, Position Yes -Correct Procedure Yes -Procedure Performed Yes -Type of Procedure Debridement -Clinical Debridement Subcutaneous -Tissue Removed Subcutaneous -Post Debridement (cm) - Length 0.7 -Post Debridement (cm) - Width 0.5 -Post Debridement (cm) - Depth 0.1 -Total Square (Post) (cm) 0.35 -Area of Debridement (cm) - Length 0.7 -Area of Debridement (cm) - Width 0.5 -Total Square (Area) (cm) 0.35 -Tunneling No -Undermining/Tunneling No -Circular Undermining No -Wound/Ulcer Outcome Not Healed -Ulcer Cleansing Rinsed/ Irrigated with Saline -Foul Odor after Cleansing No -Bioengineered Tissue No -Bleeding Controlled with Pressure -Offloading No -Treatment Response Procedure Tolerated Well -Debridement - Subq, 1st 20sq cm Yes #1 L Grt Toe -Time 11:06 -Correct Patient Yes -Correct Side, Site, Position Yes -Correct Procedure Yes -Procedure Performed Yes -Type of Procedure Debridement -Clinical Debridement Subcutaneous -Tissue Removed Subcutaneous -Post Debridement (cm) - Length 0.8 -Post Debridement (cm) - Width 0.4 -Post Debridement (cm) - Depth 0.1 -Total Square (Post) (cm) 0.32 -Area of Debridement (cm) - Length 0.8 -Area of Debridement (cm) - Width 0.4 -Total Square (Area) (cm) 0.32 -Tunneling No -Undermining/Tunneling No -Circular Undermining No -Wound/Ulcer Outcome Not Healed -Ulcer Cleansing Rinsed/ Irrigated with Saline -Foul Odor after Cleansing No -Bioengineered Tissue No -Bleeding Controlled with Pressure -Offloading No -Treatment Response Procedure Tolerated Well -Debridement - Subq, 1st 20sq cm No Pain Scale: 0-10 Numeric Is Patient Pain Free? Yes Wound debrided: First digit medial Laterality: Left Wound Grade/Stage: Luciano 1 Type of Debridement: Excisional debridement Anesthesia Used: 4% Lidocaine Solution Depth: Down to and including healthy tissue Percentage of wound debrided: 100 Instrument Used: 3mm curette Tissue Removed: Tissue removed includes fibrous, devitalized, biofilm, and slough tissue Severity: Fat Layer Exposed Amount of bleeding with debridement: Mild Bleeding Controlled with: Pressure Patient tolerated procedure well - Additional Wound Wound debrided: Lateral fifth digit Laterality: Left Wound Grade/Stage: Luciano 1 Type of Debridement: Excisional debridement Anesthesia Used: 4% Lidocaine Solution Depth: in the subcutaneous layer Percentage of wound debrided: 100 Instrument Used: 3mm curette Tissue Removed: Tissue removed includes fibrous, devitalized, biofilm, and slough tissue Severity: Limited To Skin Breakdown Amount of bleeding with debridement: Mild Bleeding Controlled with: Pressure Patient tolerated procedure: Patient tolerated procedure well Assessment/Plan Active Problems (Last Reviewed 04/28/19 @ 13:51 by Melody Mckeon) Non-pressure chronic ulcer of other part of left foot with fat layer exposed (Chronic) Type 2 diabetes mellitus (Chronic) PAD (peripheral artery disease) (Chronic) Peripheral arterial occlusive disease (Chronic) Assessment: Left first digit medial ulcer. Left fifth digit lateral ulcer. Peripheral vascular disease. Diabetes Plan: Patient seen and examined. Patient is referral from Dr. Jama's [facility] ulcerations first and fifth toes of left foot. Patient has peripheral vascular disease. Patient has been seeing Dr. Nicholson for this. Patient states that she has intervention planned for next Thursday. Patient has recent LEAS with left monophasic pulses with an JENY of 0.59 from the PT artery and a TBI of 0.12. On the right side the DP and PT are monophasic as well with an JENY of 0.53 on the PT artery and 0.75 to the DP artery and a TBI of 0.3. Reviewed recent blood work. Left first and fifth toe were sharply debrided with a curette without incident as noted in the clinical section. Sites were dressed with Misty Ag. Reviewed proper wound care with patient. Discussed with the patient the importance of offloading the sites with wide enough shoe gear if she is to be wearing shoes, proper diet, good blood sugar control. Patient also complains of pain in her toes to her left foot. Discussed with patient that this is probably a combination of her poor blood flow as well as some pain from the wounds themselves. Patient has some neuropathy which would decrease some of the feeling and thus pain from the wounds. All questions were answered patient satisfaction. Discussed with the patient all concerning signs and symptoms to watch out for and to contact office if he either presents. Patient's follow-up in 2 weeks as she has intervention with Dr. Nicholson scheduled for next Thursday. She can follow-up in office next week if anything is concerning to her
[2020-06-19 08:24] VITALS: BP 127/104; PULSE 68; RESP 16; TEMP 35.8; BMI 53.0
--- NOTE | 2020-06-19 09:41 | PCM.WC.PN ---
(1) Non-pressure chronic ulcer of other part of left foot with fat layer exposed Status: Chronic Code(s): L97.522 - Non-pressure chronic ulcer of other part of left foot with fat layer exposed (2) Type 2 diabetes mellitus Status: Chronic Code(s): E11.9 - Type 2 diabetes mellitus without complications (3) PAD (peripheral artery disease) Status: Chronic Code(s): I73.9 - Peripheral vascular disease, unspecified (4) Peripheral arterial occlusive disease Status: Chronic Code(s): I77.9 - Disorder of arteries and arterioles, unspecified Type of Wound Date of Service: 06/19/20 Chief Complaint: Left foot first digit ulceration. Left foot fifth digit ulceration. PVD, PAD History of Wound: Patient is referral [facility]. 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 Patient is to follow-up with Dr. Nicholson with procedure for this. Patient relates no prior other issues with her feet or history of ulcerations with. She does admit to pain in her left toes. Patient is diabetic as well but states is very well controlled averaging blood sugar in the low 100s. Patient has been putting Bactroban and Band-Aid on the wounds. Patient denies any trauma or rubbing to start the wounds. Patient had intervention done by Dr. Nicholson on 06/12/2020. Since the patient has complaints of post procedure reperfusion pain. She states it is worse at night. Patient also noted to have new ulceration to the lateral aspect of her left fourth digit. She also has a fissure wound to the left posterior lateral heel which is causing her pain as well Progress of Wound: New wound to fourth left digit and heel. Other wounds are improved in appearance with improved skin temperature Subjective: Patient seen and examined bedside. Patient denies any new pedal complaints. Patient denies any nausea, fever, chills, chest pain, shortness of breath, cough, streaking, purulence, vomiting. Patient states that there is a new wound to her fourth left digit as well as to her heel - Physical Exam Vital Signs Temp Pulse Resp BP 96.4 F L 68 16 127/104 H 06/19/20 08:24 06/19/20 08:24 06/19/20 08:24 06/19/20 08:24 General: Alert, Oriented x3 HEENT: Atraumatic Extremities: No clubbing, No cyanosis, Capillary Refill Less than 3 Seconds - Digits are warmer as compared to last exam, No Calf Tenderness, Diminished Peripheral Pulses, Edema - Most likely post procedure edema, nonpitting, Tenderness - to ulcerations left foot Skin: Ulcer/ Wound - Left plantar hallux, lateral fourth digit, lateral fifth digit. No malodor, erythema, purulence, probing to bone, streaking, or other signs of infection. Granular/fibritic base with serosanguineous drainage after debridement. Fourth digit ulcer noted to have most fibrotic tissue with maceration, Skin Tear - Left posterior lateral heel. Skin fissure noted. Surrounding callus mild. Dry skin noted. To the level of dermis. No drainage. Pain on palpation. Some fibrotic tissue noted., - - Hairless atrophic and dry skin especially to the heels Wound Measurements and Assessment WC - Nurse 1 - General Ulcer Measurement Start: 06/05/20 10:13 Freq: Status: Active Protocol: Activity Type Activity Date Activity User E-Sign Co-Sign Detail Recorded Client Recorded Date Recorded By Document 06/19/20 08:24 MW [id number] 06/19/20 08:34 MW 06/19/20 08:24 Wound Center Nurse 1 [Ulcer Assessment] #3 4th lateral toe -Combined with other wound No -Current Size (cm) - Length 0.9 -Current Size (cm) - Width 0.8 -Current Size (cm) - Depth 0.1 -Total Square Cm 0.72 -Date of Last Picture (Recall this 06/19/20 field) -Photo Taken Yes -Epithelialization None Present -Tunneling No -Undermining/Tunneling No -Circular Undermining No -Exudate Amt Medium -Exudate Type Serosanguineous -Wound Margin Flat & Intact -Granulation Amt None Present (0 %) -Granulation Quality N/A -Slough/Fibrin Yes -Necrosis Amt Large (67-100%) -Necrotic Tissue Type Adherent Slough -Structure Exposed N/A -Texture (Dot-wound Skin Appearance) No Abnormality, Assessed -Moisture (Dot-wound Skin Appearance No Abnormality, ) Assessed -Color (Dot-wound Skin Appearance) Assessed,Rubor -Temperature (Dot-wound Skin No Abnormality Appearance) (Pt Warm) -Tenderness on Palpation (Dot-wound Yes Skin Appearance) -Ulcer Cleansing Rinsed/ Irrigated with Saline -Foul Odor after Cleansing No -Anesthetic Used 4% Lidocaine Solution #2 L 5th toe -Combined with other wound No -Current Size (cm) - Length 1.8 -Current Size (cm) - Width 1.0 -Current Size (cm) - Depth 0.1 -Total Square Cm 1.80 -Photo Taken No -Epithelialization None Present -Tunneling No -Undermining/Tunneling No -Circular Undermining No -Exudate Amt None Present -Wound Margin Flat & Intact -Granulation Amt Small (1-33%) -Granulation Quality [place] -Slough/Fibrin Yes -Necrosis Amt Large (67-100%) -Necrotic Tissue Type Adherent Slough -Structure Exposed N/A -Texture (Dot-wound Skin Appearance) Assessed, Scarring -Moisture (Dot-wound Skin Appearance No Abnormality, ) Assessed -Color (Dot-wound Skin Appearance) Assessed,Rubor -Temperature (Dot-wound Skin No Abnormality Appearance) (Pt Warm) -Tenderness on Palpation (Dot-wound Yes Skin Appearance) -Ulcer Cleansing Rinsed/ Irrigated with Saline -Foul Odor after Cleansing No -Anesthetic Used 4% Lidocaine Solution #1 L Grt Toe -Combined with other wound No -Current Size (cm) - Length 0.8 -Current Size (cm) - Width 0.6 -Current Size (cm) - Depth 0.1 -Total Square Cm 0.48 -Photo Taken No -Epithelialization None Present -Tunneling No -Undermining/Tunneling No -Circular Undermining No -Exudate Amt None Present -Wound Margin Flat & Intact -Granulation Amt None Present (0 %) -Granulation Quality N/A -Slough/Fibrin Yes -Necrosis Amt Large (67-100%) -Necrotic Tissue Type Adherent Slough -Structure Exposed N/A -Texture (Dot-wound Skin Appearance) Assessed, Localized Edema -Moisture (Dot-wound Skin Appearance No Abnormality, ) Assessed -Color (Dot-wound Skin Appearance) Assessed,Rubor -Temperature (Dot-wound Skin No Abnormality Appearance) (Pt Warm) -Tenderness on Palpation (Dot-wound Yes Skin Appearance) -Ulcer Cleansing Rinsed/ Irrigated with Saline -Foul Odor after Cleansing No -Anesthetic Used 4% Lidocaine Solution [Edema Assessment] -Lower Limb Edema Present No WC - Nurse 2 - General Ulcer CM Notes Start: 06/05/20 10:13 Freq: Status: Active Protocol: Activity Type Activity Date Activity User E-Sign Co-Sign Detail Recorded Client Recorded Date Recorded By Document 06/19/20 09:03 RICHI [id number] 06/19/20 09:24 RICHI 06/19/20 09:03 Wound Center Nurse 2 [Procedure/Treatment] 4-left heel fissure -Time 09:21 -Correct Patient Yes -Correct Side, Site, Position Yes -Correct Procedure Yes -Procedure Performed Yes -Type of Procedure Debridement -Clinical Debridement Subcutaneous -Tissue Removed Subcutaneous -Post Debridement (cm) - Length 1.2 -Post Debridement (cm) - Width 0.1 -Post Debridement (cm) - Depth 0.1 -Total Square (Post) (cm) 0.12 -Area of Debridement (cm) - Length 1.2 -Area of Debridement (cm) - Width 0.1 -Total Square (Area) (cm) 0.12 -Tunneling No -Undermining/Tunneling No -Circular Undermining No -Wound/Ulcer Outcome Not Healed -Ulcer Cleansing Rinsed/ Irrigated with Saline -Foul Odor after Cleansing No -Bioengineered Tissue No -Bleeding Controlled with Pressure -Offloading No -Treatment Response Procedure Tolerated Well -Debridement - Subq, 1st 20sq cm No #3 4th lateral toe -Time 09:04 -Correct Patient Yes -Correct Side, Site, Position Yes -Correct Procedure Yes -Procedure Performed Yes -Type of Procedure Debridement -Clinical Debridement Subcutaneous -Tissue Removed Subcutaneous -Post Debridement (cm) - Length 0.9 -Post Debridement (cm) - Width 0.7 -Post Debridement (cm) - Depth 0.2 -Total Square (Post) (cm) 0.63 -Area of Debridement (cm) - Length 0.9 -Area of Debridement (cm) - Width 0.7 -Total Square (Area) (cm) 0.63 -Tunneling No -Undermining/Tunneling No -Circular Undermining No -Wound/Ulcer Outcome Not Healed -Ulcer Cleansing Rinsed/ Irrigated with Saline -Foul Odor after Cleansing No -Bioengineered Tissue No -Bleeding Controlled with Pressure -Offloading No -Treatment Response Procedure Tolerated Well -Debridement - Subq, 1st 20sq cm Yes #2 L 5th toe -Time 09:04 -Correct Patient Yes -Correct Side, Site, Position Yes -Correct Procedure Yes -Procedure Performed Yes -Type of Procedure Debridement -Clinical Debridement Subcutaneous -Tissue Removed Subcutaneous -Post Debridement (cm) - Length 0.7 -Post Debridement (cm) - Width 0.5 -Post Debridement (cm) - Depth 0.1 -Total Square (Post) (cm) 0.35 -Area of Debridement (cm) - Length 0.7 -Area of Debridement (cm) - Width 0.5 -Total Square (Area) (cm) 0.35 -Tunneling No -Undermining/Tunneling No -Circular Undermining No -Wound/Ulcer Outcome Not Healed -Ulcer Cleansing Rinsed/ Irrigated with Saline -Foul Odor after Cleansing No -Bioengineered Tissue No -Bleeding Controlled with Pressure -Offloading No -Treatment Response Procedure Tolerated Well -Debridement - Subq, 1st 20sq cm No #1 L Grt Toe -Time 09:05 -Correct Patient Yes -Correct Side, Site, Position Yes -Correct Procedure Yes -Procedure Performed Yes -Type of Procedure Debridement -Clinical Debridement Subcutaneous -Tissue Removed Subcutaneous -Post Debridement (cm) - Length 1.5 -Post Debridement (cm) - Width 1.3 -Post Debridement (cm) - Depth 0.2 -Total Square (Post) (cm) 1.95 -Area of Debridement (cm) - Length 1.5 -Area of Debridement (cm) - Width 1.3 -Total Square (Area) (cm) 1.95 -Tunneling No -Undermining/Tunneling No -Circular Undermining No -Wound/Ulcer Outcome Not Healed -Ulcer Cleansing Rinsed/ Irrigated with Saline -Foul Odor after Cleansing No -Bioengineered Tissue No -Bleeding Controlled with Pressure -Offloading No -Treatment Response Procedure Tolerated Well -Debridement - Subq, 1st 20sq cm No [See Physician Procedure note for Specifics] Pain Scale: 0-10 Numeric [Pain] -Is Patient Pain Free? Yes Musculoskeletal: Tenderness - Lower extremity. Especially at ulceration sites. Also some post procedure reperfusion pain Neurological: Sensory exam intact to light touch and pain Psych/Mental Status: Normal Affect, Appropriate, Alert and oriented to time, place, person, mood and affect Debridement Note Post-Debridement Measurements/Treatment WC - Nurse 2 - General Ulcer CM Notes Start: 06/05/20 10:13 Freq: Status: Active Protocol: Activity Type Activity Date Activity User E-Sign Co-Sign Detail Recorded Client Recorded Date Recorded By Document 06/05/20 11:05 RICHI [id number] 06/05/20 11:13 JF Document 06/19/20 09:03 JF [id number] 06/19/20 09:24 JF 06/05/20 06/19/20 11:05 09:03 Wound Center Nurse 2 4-left heel fissure -Time 09:21 -Correct Patient Yes -Correct Side, Site, Position Yes -Correct Procedure Yes -Procedure Performed Yes -Type of Procedure Debridement -Clinical Debridement Subcutaneous -Tissue Removed Subcutaneous -Post Debridement (cm) - Length 1.2 -Post Debridement (cm) - Width 0.1 -Post Debridement (cm) - Depth 0.1 -Total Square (Post) (cm) 0.12 -Area of Debridement (cm) - Length 1.2 -Area of Debridement (cm) - Width 0.1 -Total Square (Area) (cm) 0.12 -Tunneling No -Undermining/Tunneling No -Circular Undermining No -Wound/Ulcer Outcome Not Healed -Ulcer Cleansing Rinsed/ Irrigated with Saline -Foul Odor after Cleansing No -Bioengineered Tissue No -Bleeding Controlled with Pressure -Offloading No -Treatment Response Procedure Tolerated Well -Debridement - Subq, 1st 20sq cm No #3 4th lateral toe -Time 09:04 -Correct Patient Yes -Correct Side, Site, Position Yes -Correct Procedure Yes -Procedure Performed Yes -Type of Procedure Debridement -Clinical Debridement Subcutaneous -Tissue Removed Subcutaneous -Post Debridement (cm) - Length 0.9 -Post Debridement (cm) - Width 0.7 -Post Debridement (cm) - Depth 0.2 -Total Square (Post) (cm) 0.63 -Area of Debridement (cm) - Length 0.9 -Area of Debridement (cm) - Width 0.7 -Total Square (Area) (cm) 0.63 -Tunneling No -Undermining/Tunneling No -Circular Undermining No -Wound/Ulcer Outcome Not Healed -Ulcer Cleansing Rinsed/ Irrigated with Saline -Foul Odor after Cleansing No -Bioengineered Tissue No -Bleeding Controlled with Pressure -Offloading No -Treatment Response Procedure Tolerated Well -Debridement - Subq, 1st 20sq cm Yes #2 L 5th toe -Time 11:05 09:04 -Correct Patient Yes Yes -Correct Side, Site, Position Yes Yes -Correct Procedure Yes Yes -Procedure Performed Yes Yes -Type of Procedure Debridement Debridement -Clinical Debridement Subcutaneous Subcutaneous -Tissue Removed Subcutaneous Subcutaneous -Post Debridement (cm) - Length 0.7 0.7 -Post Debridement (cm) - Width 0.5 0.5 -Post Debridement (cm) - Depth 0.1 0.1 -Total Square (Post) (cm) 0.35 0.35 -Area of Debridement (cm) - Length 0.7 0.7 -Area of Debridement (cm) - Width 0.5 0.5 -Total Square (Area) (cm) 0.35 0.35 -Tunneling No No -Undermining/Tunneling No No -Circular Undermining No No -Wound/Ulcer Outcome Not Healed Not Healed -Ulcer Cleansing Rinsed/ Rinsed/ Irrigated with Irrigated with Saline Saline -Foul Odor after Cleansing No No -Bioengineered Tissue No No -Bleeding Controlled with Pressure Pressure -Offloading No No -Treatment Response Procedure Procedure Tolerated Well Tolerated Well -Debridement - Subq, 1st 20sq cm Yes No #1 L Grt Toe -Time 11:06 09:05 -Correct Patient Yes Yes -Correct Side, Site, Position Yes Yes -Correct Procedure Yes Yes -Procedure Performed Yes Yes -Type of Procedure Debridement Debridement -Clinical Debridement Subcutaneous Subcutaneous -Tissue Removed Subcutaneous Subcutaneous -Post Debridement (cm) - Length 0.8 1.5 -Post Debridement (cm) - Width 0.4 1.3 -Post Debridement (cm) - Depth 0.1 0.2 -Total Square (Post) (cm) 0.32 1.95 -Area of Debridement (cm) - Length 0.8 1.5 -Area of Debridement (cm) - Width 0.4 1.3 -Total Square (Area) (cm) 0.32 1.95 -Tunneling No No -Undermining/Tunneling No No -Circular Undermining No No -Wound/Ulcer Outcome Not Healed Not Healed -Ulcer Cleansing Rinsed/ Rinsed/ Irrigated with Irrigated with Saline Saline -Foul Odor after Cleansing No No -Bioengineered Tissue No No -Bleeding Controlled with Pressure Pressure -Offloading No No -Treatment Response Procedure Procedure Tolerated Well Tolerated Well -Debridement - Subq, 1st 20sq cm No No Pain Scale: 0-10 Numeric Is Patient Pain Free? Yes Yes - Nurse 3 - General Ulcer D/C NN Start: 06/05/20 10:13 Freq: Status: Active Protocol: Activity Type Activity Date Activity User E-Sign Co-Sign Detail Recorded Client Recorded Date Recorded By Document 06/05/20 11:27 RICHI [id number] 06/05/20 11:30 RICHI 06/05/20 11:27 Wound Care Nurse 3 #2 L 5th toe -Ulcer Cleansing Rinsed/ Irrigated with Saline -Foul Odor after Cleansing No -Primary Dressing Applied Promogran [place] -Primary Dressing Covered/Secured with Dry Gauze, Secured with Tape -Promogran [place] 1 #1 L Grt Toe -Ulcer Cleansing Rinsed/ Irrigated with Saline -Foul Odor after Cleansing No -Primary Dressing Applied Promogran [place] -Primary Dressing Covered/Secured with Dry Gauze, Secured with Tape -Promogran [place] Matter 0 Pain Scale: 0-10 Numeric Is Patient Pain Free? Yes WC - Visit Discharge Discharge Condition Stable Ambulatory Status Ambulatory,Cane Transportation Private Auto Medication Reconcilliation completed & Yes provided to patient/care provider Clinical Summary of Care Provided Yes Wound debrided: Plantar hallux Laterality: Left Wound Grade/Stage: Luciano 1 Type of Debridement: Excisional debridement Anesthesia Used: 4% Lidocaine Solution Depth: in the subcutaneous layer Percentage of wound debrided: 100 Instrument Used: 3mm curette Tissue Removed: Tissue removed includes fibrous, devitalized, biofilm, and slough tissue Severity: Fat Layer Exposed Amount of bleeding with debridement: Mild Bleeding Controlled with: Pressure Patient tolerated procedure well - Additional Wound Wound debrided: Fourth digit lateral Laterality: Left Wound Grade/Stage: Luciano 2 Type of Debridement: Excisional debridement Anesthesia Used: 4% Lidocaine Solution Depth: in the subcutaneous layer Percentage of wound debrided: 100 Instrument Used: 3mm curette Tissue Removed: Tissue removed includes fibrous, devitalized, biofilm, and slough tissue Severity: Fat Layer Exposed Amount of bleeding with debridement: Mild Bleeding Controlled with: Pressure Patient tolerated procedure: Patient tolerated procedure well - Additional Wound Wound debrided: Fifth digit lateral Laterality: Left Wound Grade/Stage: Luciano 2 Type of Debridement: Excisional debridement Anesthesia Used: 4% Lidocaine Solution Depth: in the subcutaneous layer Percentage of wound debrided: 100 Instrument Used: 3mm curette Tissue Removed: Tissue removed includes fibrous, devitalized, biofilm, and slough tissue Severity: Fat Layer Exposed Amount of bleeding with debridement: Mild Bleeding Controlled with: Pressure Patient tolerated procedure: Patient tolerated procedure well - Additional Wound Wound debrided: Posterior lateral heel fissure Laterality: Left Wound Grade/Stage: Luciano 1 Type of Debridement: Excisional debridement Anesthesia Used: 4% Lidocaine Solution Depth: Down to and including healthy tissue Percentage of wound debrided: 100 Instrument Used: 3mm curette Tissue Removed: Tissue removed includes fibrous, devitalized, biofilm, and slough tissue Severity: Limited To Skin Breakdown Amount of bleeding with debridement: None Patient tolerated procedure: Patient tolerated procedure well Assessment/Plan Active Problems (Last Reviewed 04/28/19 @ 13:51 by Melody Mckeon) Non-pressure chronic ulcer of other part of left foot with fat layer exposed (Chronic) Type 2 diabetes mellitus (Chronic) PAD (peripheral artery disease) (Chronic) Peripheral arterial occlusive disease (Chronic) Assessment: Left first digit plantar medial ulcer. Left fifth digit lateral ulcer. Left lateral fourth digit ulcer. Peripheral vascular disease status post intervention 06/12/[address] Nicholson. Diabetes Plan: Patient seen and examined. Patient is referral from Dr. Jama's [facility] ulcerations first and fifth toes of left foot. Patient has peripheral vascular disease. Patient has been seeing Dr. Nicholson for this. Patient had intervention on 06/12/2020. Since then patient has had some reperfusion pain with swelling that is worse at night. Patient has recent LEAS with left monophasic pulses with an JENY of 0.59 from the PT artery and a TBI of 0.12. On the right side the DP and PT are monophasic as well with an JENY of 0.53 on the PT artery and 0.75 to the DP artery and a TBI of 0.3. Reviewed recent blood work with no sign of infection. Left first toe, fourth toe, heel and fifth toe were sharply debrided with a curette without incident as noted in the clinical section. Sites were dressed with hydrogel. Discussed getting Santyl. Patient was given a prescription and will check with insurance if it is a feasible option for her or not. Reviewed proper wound care with patient. Discussed with the patient the importance of offloading the sites with wide enough shoe gear if she is to be wearing shoes, proper diet, good blood sugar control. Patient also complains of pain in her toes to her left foot. Discussed with patient that this is probably a combination of her new blood flow from her intervention as well as some pain from the wounds themselves. Patient has some neuropathy which would decrease some of the feeling and thus pain from the wounds. All questions were answered patient satisfaction. Discussed with the patient all concerning signs and symptoms to watch out for and to contact office if he either presents. Patient noted to have new wound to lateral aspect of fourth digit as well as a painful fissure to her posterior lateral heel. Patient's follow-up in 1 weeks
== END 2020-06-24 23:59 ==
LOC: WC 08:30
PROVIDERS: PCP Family Medicine; Referring Provider Podiatrist; Visit Provider Podiatrist Foot & Ankle Surgery
DX: E11.621 Type 2 diabetes mellitus with foot ulcer (principal); L97.522 Non-pressure chronic ulcer of other part of left foot with fat layer exposed; E11.51 Type 2 diabetes mellitus with diabetic peripheral angiopathy without gangrene; E11.40 Type 2 diabetes mellitus with diabetic neuropathy, unspecified; I77.9 Disorder of arteries and arterioles, unspecified; I25.10 Atherosclerotic heart disease of native coronary artery without angina pectoris; I10 Essential (primary) hypertension; Z79.82 Long term (current) use of aspirin; Z79.84 Long term (current) use of oral hypoglycemic drugs; Z82.49 Family history of ischemic heart disease and other diseases of the circulatory system; Z83.3 Family history of diabetes mellitus; Z87.820 Personal history of traumatic brain injury; Z87.891 Personal history of nicotine dependence; Z88.2 Allergy status to sulfonamides; Z95.5 Presence of coronary angioplasty implant and graft
CPT/HCPCS: 11042; 99213; G0463

== ENCOUNTER → 2020-07-04 13:30 | Outpatient (CLI) | payer MEDICARE, SELFPAY ==
[2020-07-04 11:29] VITALS: BMI 22.4
--- NOTE | 2020-07-04 14:04 | MRI_ITS ---
STUDY: MRI LEFT FOREFOOT WITHOUT CONTRAST REASON FOR EXAM: Female, 84 years old. left 4th toe ulcer, also ulcer on 1st and 5th toe TECHNIQUE: Standardized fat and water weighted pulse sequences were obtained in all 3 orthogonal planes. COMPARISON: X-ray 05/28/2020 FINDINGS: Normal metatarsophalangeal joint of the hallux. Normal tibial and fibular sesamoids, with normal sesamoids-first metatarsal articulations. Normal interphalangeal joint of the hallux. Normal proximal and distal phalanges of the great toe. Normal medial and lateral heads of the flexor hallucis brevis tendons. Normal flexor and extensor hallucis longus tendons. Normal second through fifth metatarsophalangeal (MTP) joints. Normal interphalangeal joints of the second through fifth toes. There is marrow edema of the fifth middle and distal phalanges consistent with cortical osteitis. No definite bone destruction. There is a marrow edema and cortical destruction of the distal aspect of the fourth proximal phalanx and the base of the middle phalanx consistent with osteomyelitis. Normal first through fourth intermetatarsal spaces. Normal flexor and extensor tendons of the second through fifth toes. Normal visualized metatarsi. Normal intrinsic muscles of the forefoot. There is no demonstrated soft tissue abnormality. MRI/Lower Ext/No Jt/w/o IMPRESSION: 1. 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 2. 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 Electronically Signed: Hari Dove MD at 17:13 EST Tel , Service support ,
== END ==
PROVIDERS: PCP Family Medicine; Visit Provider Podiatrist Foot & Ankle Surgery
DX: L97.529 Non-pressure chronic ulcer of other part of left foot with unspecified severity (principal)
CPT/HCPCS: 73718

== ENCOUNTER 2020-07-07 13:08 | Inpatient (IN) | payer MEDICARE, SELFPAY ==
[2020-07-04 11:29] VITALS: BMI 22.4
[2020-07-07] VITALS (7 sets, daily range): BP systolic 100–139; BP diastolic 55–86; PULSE 64–88; RESP 14–20; TEMP 36.5–36.8; O2SAT 96–100; BMI 23.1; BMI 23.6
--- NOTE | 2020-07-07 13:30 | RAD_ITS ---
STUDY: X-RAY - LEFT FOOT CLINICAL: Female, 84 years old. Left foot infection, healing ulcer to 1st and 5th toes -- new 4th toe ulcer, increasing pain TECHNIQUE: 4 view(s) of the foot. COMPARISON: MRI July 04, 2020 FINDINGS: Normal talus, calcaneus, and tarsal bones. Normal visualized subtalar, talonavicular, calcaneocuboid, tarsal and tarsometatarsal articulations. There is demineralization of the metatarsi. Normal metatarsophalangeal joint of the great toe. Normal tibial and fibular sesamoid bones. Normal interphalangeal joint of the great toe. Demineralized phalanges of the great toe. Normal second through fifth metatarsophalangeal joints. There is degenerative change in the distal interphalangeal joints especially the third digit. The area of ulceration described is not visualized on this study. There is mild soft tissue edema. RAD/Foot min 3 Views IMPRESSION: No visualized soft tissue injury allowing for the technique. There is mild soft tissue edema about the distal foot. No definitive acute bony erosion. Electronically Signed: Akiko Johnston MD at 14:50 EST Tel , Service support ,
--- NOTE | 2020-07-07 13:32 | ED.VIS.GEN ---
History of Present Illness Chief Complaint: Wound Detail of Chief Complaint: Left foot wound and GI bleed Informant: Patient Narrative: Patient has been following with wound care center for some time secondary to left foot wounds. On June 12 she had vascular surgery to Dr. Nicholson to try to increase blood flow to her left foot. She states since that time she had increased pain to her left foot. She reports pus from 2 of the wounds. Patient did have a wound culture performed on the that was positive for Pseudomonas and she was started on clindamycin. In spite of that she states she has not noted any improvement in the wounds. She is currently on gabapentin for pain but states this is not controlling her pain. This morning patient noted rectal bleeding. She denies abdominal pain or cramping. - Past Medical History (1) Atherosclerotic heart disease of [place] coronary artery without angina pectoris Status: Chronic (2) Essential hypertension Status: Chronic (3) PAD (peripheral artery disease) Status: Chronic (4) Peripheral arterial occlusive disease Status: Chronic (5) Presence of stent in coronary artery Status: Chronic Comment: PCI/stent to LAD 2007; PCI/GUDELIA to instent restenosis of the LAD 07/04/11 (6) Type 2 diabetes mellitus Status: Chronic Past Medical History - Allergies and Home Meds Allergies/Adverse Reactions: Allergies pravastatin Adverse Reaction (Severe, Verified 07/07/20 13:09) myalgias Sulfa (Sulfonamide Antibiotics) Adverse Reaction (Mild, Verified 07/07/20 13:09) stomach upset atorvastatin Adverse Reaction (Verified 07/07/20 13:09) myalgias Primary Care Physician: Tre Marks MD [Primary Care Provider] - Prior records reviewed: Yes Surgical History: - - Pelvic floor reconstruction Smoking Status: Former smoker - Family History Maternal Family History: Family History (Last Reviewed 07/02/20 @ 15:48 by Melody Mckeon) Father Diabetes Heart disease Brother Diabetes Colon cancer Brother Diabetes Family History: Reports: - - Dementia Review of Systems General: Denies: Chills, Fever Eyes: Denies: Visual changes - bilaterally ENT: Denies: Bilateral ear pain Cardiovascular: Denies: Chest pain Respiratory: Denies: Dyspnea, Cough Gastrointestinal: Reports: Hematochezia. Denies: Abdominal pain, Vomiting Genitourinary: Denies: Dysuria Musculoskeletal: Reports: Extremity Pain Skin: Reports: Wounds Neurological: Denies: Headache Hematologic: Denies: Easy bruising, Easy bleeding Allergy: Denies: Uticaria Physical Exam Vital Signs/Narrative: Vital Signs Temp Pulse Resp BP Pulse Ox 07/07/20 13:09 97.7 F L 88 20 H 139/55 H 99 Inital Vital Signs reviewed: Yes General: Well nourished, Well developed Head: Normocephalic ENT: Moist mucous membranes Neck: Supple Cardiovascular: Regular rate, Regular rhythm Respiratory: No distress, CTA bilaterally Abdomen: Soft, Nontender, Normal bowel sounds Rectal: - - Rectal vault empty. No gross blood. Extremities: - - Ulcerations on the left foot along the medial left great toe and lateral left fifth toe. The proximal aspect of the left fourth toe is ulcerated and discolored. Neurological: Alert, Oriented x3 Psychological: Normal affect Diagnostic/Tx/Re-eval Impressions Foot X-Ray 07/07/20 13:30 IMPRESSION: No visualized soft tissue injury allowing for the technique. There is mild soft tissue edema about the distal foot. No definitive acute bony erosion. Electronically Signed: Akiko Johnston MD at 14:50 EST Tel , Service support , 07/07/20 13:30 Foot min 3 Views [RAD] Stat 07/07/20 14:20 Stool Stool Occult Blood (REGINA) - Final Occult Blood Positive Laboratory Results 07/07/20 07/07/20 07/07/20 13:10 13:10 13:10 WBC 11.5 H RBC 3.98 L Hgb 11.7 L Hct 36.3 L MCV 91.2 MCH 29.4 MCHC 32.2 RDW Std Deviation 41.4 RDW Coeff of Kathy 12.5 Plt Count 510 H MPV 8.5 Immature Gran % (Auto) 0.400 Neut % (Auto) 71.5 H Lymph % (Auto) 19.2 Alexander % (Auto) 7.9 Eos % (Auto) 0.7 Baso % (Auto) 0.3 Absolute Neuts (auto) 8.2 H Absolute Lymphs (auto) 2.21 Nucleated RBC % 0 PT 13.6 INR 1.1 APTT 32.4 Sodium 132 L Potassium 4.2 Chloride 99 Carbon Dioxide 29.0 Anion Gap 4 L BUN 16 Creatinine 0.76 Estim Creat Clear Calc 37.68 Est GFR (MDRD) Af Amer 93 Est GFR (MDRD) Non-Af 77 BUN/Creatinine Ratio 20.9 H Glucose 114 H Lactic Acid Calcium 9.5 07/07/20 13:10 WBC RBC Hgb Hct MCV MCH MCHC RDW Std Deviation RDW Coeff of Kathy Plt Count MPV Immature Gran % (Auto) Neut % (Auto) Lymph % (Auto) Alexander % (Auto) Eos % (Auto) Baso % (Auto) Absolute Neuts (auto) Absolute Lymphs (auto) Nucleated RBC % PT INR APTT Sodium Potassium Chloride Carbon Dioxide Anion Gap BUN Creatinine Estim Creat Clear Calc Est GFR (MDRD) Af Amer Est GFR (MDRD) Non-Af BUN/Creatinine Ratio Glucose Lactic Acid 1.1 Calcium - Medical Decision Making Patient was given morphine and Zofran for pain control. 3 view x-ray of the left foot reveals no bony destruction per my interpretation. I was able to review a MRI performed on July 04. There was evidence of cortical osteitis of the fifth middle and distal phalanx without osteomyelitis. There was cortical osteitis and osteomyelitis of the fourth proximal and middle phalanges. Blood work is reviewed. White count is mildly elevated. Wound culture from July 03 revealed Pseudomonas and patient was given a dose of IV Zosyn. Stool guaiac was performed and did return positive although no gross blood noted on exam. Hemoglobin is stable at this time and will need to be monitored. Patient be admitted for IV antibiotics and further treatment of her osteomyelitis. ED Disposition - Plan for ED Patient: Disposition: Acute Care Hospital [facility] Diagnosis: Osteomyelitis, GI bleed Referrals: Tre Marks MD [Primary Care Provider] -
[2020-07-07] MEDS: 0.9% Normal Saline 1,000 ML 150 ML IV (13:44)
[2020-07-07] MEDS: Morphine 4 MG/ML Syringe IV (13:45)
[2020-07-07] MEDS: Ondansetron 4 MG/2 ML Vial IV (13:45)
[2020-07-07 14:01] LABS: Absolute Lymphocyte Count 2.21 X10^3/uL (0.83-4.51); Absolute Neutrophil Count 8.2 X10^3/uL (2.0-7.7); Basophil# 0.04 X10^3/uL; Basophil% 0.3 % (0-1); Eosinophil# 0.08 X10^3/uL; Eosinophils% 0.7 % (0-5); Hematocrit 36.3 % (37-47); Hemoglobin 11.7 g/dL (12.0-15.0); Lymphocyte # 2.21 X10^3/ul (4.0); Lymphocyte % 19.2 % (19-41); Mean Corp Hgb Conc 32.2 g/dL (32-36); Mean Corpuscular Hgb 29.4 pg (27.0-32.0); Mean Corpuscular Volume 91.2 fL (81-99); Mean Platelet Vol. 8.5 fl (6.2-12.0); Monocyte# 0.91 X10^3/uL; Monocyte% 7.9 % (0-10); NRBC Flagged by Analyzer 0 % (0-5); Neutrophil # 8.22 X10^3/uL (2.7-7.7); Neutrophil % 71.5 % (47-70); Platelet Count 510 K/mm3 (150-450); RBC Distribution Width CV 12.5 % (11.6-14.6); RBC Distribution Width SD 41.4 fl (35.1-43.9); Red Blood Count 3.98 M/mm3 (4.2-5.4); White Blood Count 11.5 K/mm3 (4.4-11.0)
[2020-07-07 14:10] LABS: International Normalized Ratio 1.1; Prothrombin Time (Protime)PT. 13.6 SECONDS (11.7-14.9)
[2020-07-07 14:11] LABS: Anion Gap 4 (5-15); BUN 16 mg/dL (7-18); BUN/Creat Ratio 20.9 RATIO (10-20); Calcium,Total 9.5 mg/dL (8.5-10.1); Chloride 99 mmol/L (98-107); Creatinine, Serum 0.76 mg/dL (0.55-1.02); EST Glomerular Filtration Rate 77 mL/min (>60); Est Glom Filt Rate - Afr Amer 93 mL/min (>60); Estimated Creatinine Clearance 37.68 ml/min; Glucose 114 mg/dL (74-106); Partial Thromboplast Time 32.4 Seconds (24.1-36.2); Potassium 4.2 mmol/L (3.5-5.1); Sodium Level 132 mmol/L (136-145)
[2020-07-07 14:35] LABS: Lactic Acid 1.1 mmol/L (0.4-1.9)
[2020-07-07 16:58] LABS: Hemoglobin 11.5 g/dL (12.0-15.0)
--- NOTE | 2020-07-07 17:09 | PCM.HP.STD ---
History of Present Illness Date of Admission: 07/07/20 Ms. Silverman is a 84 year old WF with a past medical history of CAD, bilateral carotid stenosis status post left carotid endarterectomy, DM-2, HTN, HPL, PAD, TIA, and left lower extremity foot ulcers that appear arterial in nature for which she has been following with podiatry and wound care. States these started shortly after she had a vascular surgery to increase the blood flow in her left foot in early May and since that time has been battling 3 wounds on her foot 1 on the fourth toe, one on the lateral fifth metatarsal head, and one on her great toe. A wound culture was performed on 07/03/2020 and was positive for Pseudomonas. She was started on clindamycin at that time. In spite of antibiotics she states the foot has gotten more painful, more swollen, and worse in color. She also reports that she had an incidence of bright red blood per rectum this morning. She states that this has happened in the past and she has had a hemorrhoidectomy. This only happened one time. Vital signs in the emergency department show that the patient is afebrile heart rate and blood pressure stable she satting 98% on room air. Her CBC showed a mildly elevated white blood cell count at 11.5, hemoglobin is 11.1 and stable, platelet count is 510,000, ESR is 61. Coagulation studies were within normal limits. Her BMP shows mild hyponatremia, normal BUN and creatinine, a CRP of 60.7, and she has a hemoglobin A1c of 6.3. She had an MRI done on 07/04/2020 that showed cortical osteitis of the fifth middle and distal phalanges without jessica osteomyelitis and cortical osteitis and osteomyelitis of the fourth proximal and middle phalanges. 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 She will be admitted to medical surgical unit, started on IV antibiotics and a podiatry consult will be placed. 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 Peripheral arterial occlusive disease (Chronic) Medical History: Medical History (Last Reviewed 07/07/20 @ 17:[address] Cathie Das, DO) Type 2 diabetes mellitus (Chronic) E11.9 Presence of stent in coronary artery (Chronic) Onset Date: ~07/04/11 Z95.5 PCI/stent to LAD 2007; PCI/GUDELIA to instent restenosis of the LAD 07/04/11 Essential hypertension (Chronic) I10 RBBB (right bundle branch block) (Chronic) I45.10 Atherosclerotic heart disease of [place] coronary artery without angina pectoris (Chronic) I25.10 PAD (peripheral artery disease) (Chronic) I73.9 Carotid stenosis, bilateral (Chronic) I65.23 Peripheral arterial occlusive disease (Chronic) I77.9 Hyperlipidemia E78.5 TIA (transient ischemic attack) G45.9 Osteoarthritis M19.90 BBB (bundle branch block) I45.4 Carotid stenosis, bilateral (Inactive) I65.23 Diabetes E11.9 HTN (hypertension) I10 Allergies pravastatin Adverse Reaction (Severe, Verified 07/07/20 13:09) myalgias Sulfa (Sulfonamide Antibiotics) Adverse Reaction (Mild, Verified 07/07/20 13:09) stomach upset atorvastatin Adverse Reaction (Verified 07/07/20 13:09) myalgias Home Medications: Ambulatory Orders Medication Instructions Recorded Aspirin [Aspirin, Baby] 81 mg PO QHS 06/07/16 Clopidogrel Bisulfate [Plavix] 75 mg PO DAILY 06/07/16 coenzyme Q10 10 mg capsule 10 mg PO DAILY 01/11/19 nitroglycerin 0.4 mg sublingual 0.4 mg SUBLINGUAL Q5-15M 01/11/19 tablet multivitamin 1 tab PO DAILY 04/28/19 omega-3 fatty acids 1,000 mg 1,000 mg PO DAILY 04/28/19 capsule Metformin HCl [Metformin HCl ER] 500 mg PO BID 05/13/19 cholecalciferol (vitamin D3) 50 50 mcg PO DAILY 11/02/19 mcg (2,000 unit) capsule gabapentin 100 mg capsule 100 mg PO TID 07/02/20 lisinopril 20 mg tablet 20 mg PO BID tab 07/02/20 metoprolol tartrate 25 mg tablet 25 mg PO TID tab 07/02/20 Clindamycin HCl 300 mg PO 4X/DAY #50 cap 07/03/20 Amlodipine Besylate [Norvasc] 5 mg PO DAILY 07/07/20 Surgical History: Surgical History (Last Reviewed 07/07/20 @ 17:[address] Cathie Das DO) Status post peripheral artery angioplasty Z98.62 Presence of coronary angioplasty implant and graft Onset Date: ~07/04/11 Z95.5 PCI/stent to LAD 2007; PCI/GUDELIA to instent restenosis of the LAD 07/04/11 Cataract extraction status of right eye Z98.41 History of hemorrhoidectomy Z98.890 History of hysterectomy Z90.710 History of left-sided carotid endarterectomy Z98.890 History of heart artery stent Z95.5 Surgical History: - - Pelvic floor reconstruction Psychiatric History: No pertinent psych hx ALTERATIONS EXPERT History: No pertinent ALTERATIONS EXPERT history Lives: With Family Smoking Status: Former smoker Tobacco Use: - Alcohol: Rare Drugs: None - *Family History Maternal Family History: Family History (Last Reviewed 07/07/20 @ 17:[address] Cathie Das DO) Father Diabetes Heart disease Brother Diabetes Colon cancer Brother Diabetes History Items: - - Dementia Review of Systems Constitutional: Denies: Anorexia, Chills, Fever, Night Sweats, Malaise, Weakness, Fatigue Eyes: Denies: Blurred vision, Cataracts, Conjunctivae Inflammation, Double vision, Drainage, Eyelid Inflammation, Pain, Redness, Vision Change HEENT: Denies: Difficulty Hearing, Ear Pain, Eye Pain, Head Aches, Nasal bleeding, Post Nasal Drip, Sinus Drainage, Sore Throat, Visual Changes Cardiovascular: Reports: Edema - Left lower extremity only. Denies: Chest Pain, Claudication, Chest Pressure, Chest Tightness, Heaviness, Light Headedness, Orthopnea, Palpitations, Paroxysmal Noc. Dyspnea, Syncope Respiratory: Denies: Cough, Hemoptysis, Pleuritic Pain, Shortness of Breath, Shortness of breath at rest, Shortness of breath upon exertion, Sputum production, Wheezing Gastrointestinal: Reports: Hematochezia, -. Denies: Abdominal Pain, Constipation, Diarrhea, Dyspepsia, Hematemesis, Nausea, Melena, Vomiting Genitourinary: Reports: Incontinence. Denies: Dysuria, Frequency, Hematuria, Hesitancy, Nocturia, Retention, Urgency Musculoskeletal: Reports: Foot Pain - Left, Joint stiffness, Leg Pain - Left. Denies: Arm Pain, Back Pain, Hand Pain, Joint Pain, Joint swelling, Joint Tenderness, Neck Pain, Shoulder Pain Skin: Denies: Dryness, Jaundice, Lesions, Pruritis, Rash, Skin Changes, Wounds Neurological: Denies: Balance problems, Blurred vision, Double vision, Change in Speech, Slurred speech, Confusion, Difficulty swallowing, Focal weakness, Headaches, Incoordination, Numbness, Tingling, Tremor, Seizures Psychiatric: Denies: Anxiety, Depression Endocrine: Denies: Change in Body Habitus, Heat/ Cold Intolerance, Polydipsia, Polyuria Hematologic/ Lymphatic: Denies: Adenopathy, Anemia, Easy Bruising, Easy Bleeding, Petechiae, Purpura VTE Information - Inpt Only VTE Present on Admission: No VTE Mechan Device Prophylaxis: None VTE Pharm Prophylaxis ordered?: Yes Patient Problems: Active and Suspected Problems (Last Reviewed 07/02/20 @ 15:48 by Melody Mckeon) Osteomyelitis (Acute) GI bleed (Acute) - Physical Exam Vitals/I&O's: Vital Signs Temp Pulse Resp BP Pulse Ox 98.0 F 64 14 125/86 H 100 07/07/20 15:26 07/07/20 15:26 07/07/20 15:26 07/07/20 15:26 07/07/20 15:26 Oxygen Delivery Method Room Air Weight: 62.6 kg Body Mass Index (BMI) 23.6 Intake and Output for Last 24 Hours 07/05/20 07/06/20 07/07/20 23:59 23:59 23:59 Intake Total 50 / 50 Balance 50 / 50 General: Alert, Oriented x3, Cooperative, No apparent distress, Well developed, Well nourished, - - Very pleasant elderly white female, lying in bed, daughter at bedside, nontoxic HEENT: Atraumatic, PERRLA, EOMI, Normocephalic, EAC Clear Oral: Moist Mucosa, No Gingival or Mucosal Lesions/ Ulcerations, - - Mallampati 2, upper dentures in place Neck: Supple, No JVD, Negative Carotid Bruits, Negative Hepatojugular Reflux, No Nodes Lungs: Clear to auscultation, Normal air movement, No rhonchi, No wheeze, No rales, Diminished - Diffusely Cardiovascular: Regular rate, Regular Rhythm, Normal S1, Normal S2, No murmurs, No Ectopic Activity, No rub noted, No Gallop Abdomen: Bowel Sounds Present, Soft, Non Tender, Non-Distended Extremities: No clubbing, No cyanosis, Edema - Left lower extremity Skin: No rashes, Ulcer/ Wound - 3 wounds on left foot-small wound left fifth metatarsal head, small wound, great toe left, and necrotic looking fourth digit on the left foot--> these appear vascular in nature Musculoskeletal: Tenderness - Left foot Lymphatic: No Cervical, Supraclavicular, or Inguinal Adenopathy Neurological: Cranial nerves II-XII grossly intact, Deep Tendon Reflexes 2+/4 and Symmetrical, Neuro grossly intact, Muscle tone normal, Sensory exam intact to light touch and pain, Coordination normal Microbiology Past 72 Hours 07/07/20 14:20 Stool Stool Occult Blood (REGINA) - Final Occult Blood Positive Laboratory Results 07/07/20 13:10: WBC 11.5 H, RBC 3.98 L, Hgb 11.7 L, Hct 36.3 L, MCV 91.2, MCH 29.4, MCHC 32.2, RDW Std Deviation 41.4, RDW Coeff of Kathy 12.5, Plt Count 510 H, MPV 8.5, Immature Gran % (Auto) 0.400, Neut % (Auto) 71.5 H, Lymph % (Auto) 19.2, [place] % (Auto) 7.9, Eos % (Auto) 0.7, Baso % (Auto) 0.3, Absolute Neuts (auto) 8.2 H, Absolute Lymphs (auto) 2.21, Nucleated RBC % 0 07/07/20 13:10: PT 13.6, INR 1.1, APTT 32.4 07/07/20 13:10: Sodium 132 L, Potassium 4.2, Chloride 99, Carbon Dioxide 29.0, Anion Gap 4 L, BUN 16, Creatinine 0.76, Estim Creat Clear Calc 37.68, Est GFR (MDRD) Af Amer 93, Est GFR (MDRD) Non-Af 77, BUN/Creatinine Ratio 20.9 H, Glucose 114 H, Calcium 9.5 07/07/20 13:10: Lactic Acid 1.1 07/07/20 13:10: C-React Prot Ext Range 60.70 H 07/07/20 16:51: Hgb 11.5 L, Hct 36.0 L 07/07/20 16:51: Hemoglobin A1c Pending 07/07/20 16:51: ESR Pending Current Medications Acetaminophen (Acetaminophen 325 Mg Tablet) 650 mg PO Q6H PRN PRN PRN Reason: Pain Score 1-10/Temp > 100.7 F Al Hydroxide/Mg Hydroxide (Mag Hydrox/Al Hydrox/Simeth 30 Ml Udc) 30 ml PO Q6H PRN PRN PRN Reason: Gastric Burning Albuterol Sulfate (Albuterol 2.5 Mg/3 Ml Vial.Neb.) 2.5 mg INHALATION Q2H PRN PRN PRN Reason: Shortness of Breath/Wheezing Amlodipine Besylate (Amlodipine 5 Mg Tablet) 5 mg PO DAILY ON LICENSE OF [facility] Aspirin (Aspirin 81 Mg Tab.Chew) 81 mg PO QHS ON LICENSE OF [facility] Enoxaparin Sodium (Enoxaparin 40 Mg/0.4 Ml Syringe) 40 mg SC DAILY ON LICENSE OF [facility] Gabapentin (Gabapentin 100 Mg Capsule) 100 mg PO TIDCM ON LICENSE OF [facility] Hydralazine HCl (Hydralazine 20 Mg/Ml Vial) 10 mg IV Q6H PRN PRN PRN Reason: SBP > 160 Sodium Chloride () 1,000 mls @ 70 mls/hr IV .[id number] ON LICENSE OF [facility] Levofloxacin (Levaquin Iv) 500 mg in 100 mls @ 100 mls/hr IV Q24 ON LICENSE OF [facility] Insulin Human Lispro (Insulin Lispro 100 Unit/Ml Insuln.Pen) 0 unit SC TIDAC ON LICENSE OF [facility]; Protocol Metoprolol Tartrate (Metoprolol Tartrate 25 Mg Tablet) 25 mg PO TID ON LICENSE OF [facility] Multivitamins (Multivitamins,Therapeutic Tablet) [facility] Nitroglycerin (Nitroglycerin (Inpatient Use) 0.4 Mg Tab.Subl) 0.4 mg SUBLINGUAL Q5M PRN PRN Reason: .CHEST PAIN Ondansetron HCl (Ondansetron 4 Mg/2 Ml Vial) 4 mg IV Q8H PRN PRN PRN Reason: NAUSEA/VOMITING Oxycodone HCl (Oxycodone 5 Mg Tablet) 5 mg PO Q4H PRN PRN PRN Reason: Pain Score 4-10 Senna/Docusate Sodium (Senna/Docusate Sodium 1 Tablet) 2 tablet PO BID PRN PRN PRN Reason: Constipation Sodium Chloride (0.9% Saline Lock 10 Ml Syringe) 10 - 40 ml IV UD PRN PRN Reason: SALINE FLUSH Assessment/Plan All Active Problems (Last Reviewed 07/02/20 @ 15:48 by Melody Mckeon) Osteomyelitis (Acute) GI bleed (Acute) Fourth toe osteomyelitis/vascular wounds left foot -MRI done on the shows osteomyelitis of the fourth digit -Wound culture shows Pseudomonas -Start Levaquin -Patient was given Zosyn in the emergency department but cultures are more sensitive to Levaquin (REGINA was 8 for Zosyn) -Check ESR and sed rate -Check hemoglobin A1c -We will hold Plavix in anticipation of surgery at this time, continue aspirin -Pain management with oxycodone and gabapentin -Consult podiatry for probable fourth toe amputation Bright red blood per rectum -We will cycle hemoglobins -Stable thus far and no more episodes of bleeding -Suspect hemorrhoidal bleeding -Patient has history of hemorrhoidectomy -If worsens will consult surgery but otherwise monitor DM-2 -Hold metformin -SSI -BGT before meals and at bedtime -A1c pending Hypertension -Continue Norvasc 5 mg daily, continue metoprolol 25 mg twice daily -Hold lisinopril 20 mg twice daily in anticipation of surgery -As needed hydralazine for systolic blood pressure greater than 160 -Restart lisinopril after surgery HPL -Patient with statin allergy -Restart omega-3 fatty acids at discharge PAD -Recent revascularization of left lower extremity -Cap refill is good -May need to consider vascular consult depending on input from podiatry -Hold aspirin and Plavix until seen by podiatry in anticipation for surgery DVT prophylaxis -Lovenox daily CODE STATUS -Full code Inpatient E&M: 77736 Init Hosp L3
[2020-07-07 17:13] LABS: Erythrocyte Sedimentation Rate 61 mm/hr (0-30)
[2020-07-07 17:15] LABS: Hemoglobin A1c 6.3 % (3.8-5.6)
[2020-07-07] MEDS: levoFLOXacin IV 500 MG/100 ML BAG 100 MG IV (17:45)
[2020-07-07] MEDS: Gabapentin 100 MG Capsule PO (17:45)
[2020-07-07] MEDS: Insulin Lispro 100 UNIT/ML INSULN.PEN SC (17:59)
[2020-07-07 18:01] LABS: Bedside Glucose 196 mg/dL (70-110)
--- NOTE | 2020-07-07 18:15 | PCM.CONS.GEN ---
Problem List (1) Non-pressure chronic ulcer of other part of left foot with fat layer exposed Status: Chronic (2) Osteomyelitis Status: Acute (3) GI bleed Status: Acute (4) Type 2 diabetes mellitus Status: Chronic (5) PAD (peripheral artery disease) Status: Chronic (6) Peripheral arterial occlusive disease Status: Chronic Reason for Consult Date of Consultation: 07/07/20 Reason for Consultation: left foot ulcerations History of Present Illness: The patient is a 84 year old F who presents to the emergency room with worsening pain to left lower extremity and ulcerations. Patient also complains of blood in her stool. Patient is well-known to me as an following up with the wound care center. At patient was last seen on Friday, July 03, 2020 at which time point cultures were obtained bone was exposed but no necrosis was noted to the fourth digit. Patient was started on clindamycin at that time. Cultures have since resulted this morning showing Pseudomonas. Ulcerations to the fifth and first digit left foot were stable. Patient had complaints of pain combination of infection and reperfusion pain. Patient was prescribed gabapentin by her primary care physician Dr. Tenorio. Patient states that the gabapentin helps some with the pain as well as some Tylenol as. Patient now presents with worsening pain and the toe has turned black. Patient states since medication started in the emergency room that her pain is better controlled but she still having pain and shooting sensations to her toes on the left foot. Patient states that she has not gotten any pus out of the fourth toe but is turned black in some areas and blue and other and it is very painful to the touch. She has noted some drainage. The fifth and first digit are undergoing Santyl treatment and she has not noticed any change since her visit to the wound care center on Thursday to these wounds. Patient also had some swelling and redness to the lower extremity left. Patient also has medical history of diabetes, neuropathy, peripheral vascular disease. Patient was recently optimize by Dr. Nicholson the vascular surgeon with follow-up appointment on Saturday, July 04, 2020. Patient relates that Dr. Nicholson said no further intervention can be done at this time. [] Past Medical History Past Medical History (Chronic Problems): Chronic Problems (Last Reviewed 07/07/20 @ 17:[address] 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) Cystocele (Chronic) Rectocele (Chronic) Type 2 diabetes mellitus (Chronic) Presence of stent in coronary artery (Chronic ~07/04/11) PCI/stent to LAD 2007; PCI/GUDELIA to instent restenosis of the LAD 07/04/11 Essential hypertension (Chronic) RBBB (right bundle branch block) (Chronic) Atherosclerotic heart disease of [place] coronary artery without angina pectoris (Chronic) PAD (peripheral artery disease) (Chronic) Carotid stenosis, bilateral (Chronic) Incomplete prolapse of vaginal vault (Chronic) puja consult. Peripheral arterial occlusive disease (Chronic) Medical History: Medical History (Last Reviewed 07/07/20 @ 17:[address] Cathie Das, DO) Type 2 diabetes mellitus (Chronic) E11.9 Presence of stent in coronary artery (Chronic) Onset Date: ~07/04/11 Z95.5 PCI/stent to LAD 2007; PCI/GUDELIA to instent restenosis of the LAD 07/04/11 Essential hypertension (Chronic) I10 RBBB (right bundle branch block) (Chronic) I45.10 Atherosclerotic heart disease of [place] coronary artery without angina pectoris (Chronic) I25.10 PAD (peripheral artery disease) (Chronic) I73.9 Carotid stenosis, bilateral (Chronic) I65.23 Peripheral arterial occlusive disease (Chronic) I77.9 Hyperlipidemia E78.5 TIA (transient ischemic attack) G45.9 Osteoarthritis M19.90 BBB (bundle branch block) I45.4 Carotid stenosis, bilateral (Inactive) I65.23 Diabetes E11.9 HTN (hypertension) I10 Allergies pravastatin Adverse Reaction (Severe, Verified 07/07/20 13:09) myalgias Sulfa (Sulfonamide Antibiotics) Adverse Reaction (Mild, Verified 07/07/20 13:09) stomach upset atorvastatin Adverse Reaction (Verified 07/07/20 13:09) myalgias Home Medications: Ambulatory Orders Medication Instructions Recorded Aspirin [Aspirin, Baby] 81 mg PO QHS 06/07/16 Clopidogrel Bisulfate [Plavix] 75 mg PO DAILY 06/07/16 coenzyme Q10 10 mg capsule 10 mg PO DAILY 01/11/19 nitroglycerin 0.4 mg sublingual 0.4 mg SUBLINGUAL Q5-15M 01/11/19 tablet multivitamin 1 tab PO DAILY 04/28/19 omega-3 fatty acids 1,000 mg 1,000 mg PO DAILY 04/28/19 capsule Metformin HCl [Metformin HCl ER] 500 mg PO BID 05/13/19 cholecalciferol (vitamin D3) 50 50 mcg PO DAILY 11/02/19 mcg (2,000 unit) capsule gabapentin 100 mg capsule 100 mg PO TID 07/02/20 lisinopril 20 mg tablet 20 mg PO BID tab 07/02/20 metoprolol tartrate 25 mg tablet 25 mg PO TID tab 07/02/20 Clindamycin HCl 300 mg PO 4X/DAY #50 cap 07/03/20 Amlodipine Besylate [Norvasc] 5 mg PO DAILY 07/07/20 Surgical History: Surgical History (Last Reviewed 07/07/20 @ 17:[address] 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 Cathie Das DO) Father Diabetes Heart disease Brother Diabetes Colon cancer Brother Diabetes History Items: - - Dementia Review of Systems Constitutional: Denies: Chills, Fever Cardiovascular: Reports: Edema - left foot Gastrointestinal: Reports: - - rectal bleeding. Denies: Nausea, Vomiting Musculoskeletal: Reports: Foot Pain - left, Leg Pain - left Skin: Reports: Wounds - Left foot digits 1 4 and 5 Neurological: Reports: Numbness, Tingling Patient Problems: Active and Suspected Problems (Last Reviewed 07/07/20 @ 17:[address] Cathie Das DO) Osteomyelitis (Acute) GI bleed (Acute) - Physical Exam Vitals/I&O's: Vital Signs Temp Pulse Resp BP Pulse Ox 98.0 F 64 14 125/86 H 98 07/07/20 15:26 07/07/20 15:26 07/07/20 15:26 07/07/20 15:26 07/07/20 17:12 Oxygen Delivery Method Room Air Weight: 62.6 kg Body Mass Index (BMI) 23.6 Intake and Output for Last 24 Hours 07/05/20 07/06/20 07/07/20 23:59 23:59 23:59 Intake Total 50 / 50 Balance 50 / 50 General: Alert, Oriented x3, Cooperative HEENT: Atraumatic Extremities: No clubbing, No cyanosis - 2 digits of left foot minus fourth toe which shows some pallor, Capillary Refill Less than 3 Seconds, No Calf Tenderness, Diminished Peripheral Pulses, Edema - Left foot, Tenderness - Left foot, - - Left foot fourth digit with lateral ulceration to bone necrotic tissue noted to circumferential fourth digit surrounding erythema and edema to left lower extremity particularly to the fourth digit and dorsal foot. Pain to palpation. Fourth digit is cyanotic Skin: Ulcer/ Wound - Plantar hallux and lateral fifth digit left foot. No malodor, purulence, probing to bone, streaking, fibrotic base. Skin is atrophic and hairless. Musculoskeletal: Tenderness - Left foot particularly toes and ulcer sites Neurological: - - Lack of epicritic sensation consistent with neuropathy Psych/Mental Status: Normal Affect, Appropriate Microbiology Past 72 Hours 07/07/20 14:20 Stool Stool Occult Blood ([place]) - Final Occult Blood Positive Laboratory Results 07/07/20 13:10: WBC 11.5 H, RBC 3.98 L, Hgb 11.7 L, Hct 36.3 L, MCV 91.2, MCH 29.4, MCHC 32.2, RDW Std Deviation 41.4, RDW Coeff of Kathy 12.5, Plt Count 510 H, MPV 8.5, Immature Gran % (Auto) 0.400, Neut % (Auto) 71.5 H, Lymph % (Auto) 19.2, Ritchie % (Auto) 7.9, Eos % (Auto) 0.7, Baso % (Auto) 0.3, Absolute Neuts (auto) 8.2 H, Absolute Lymphs (auto) 2.21, Nucleated RBC % 0 07/07/20 13:10: PT 13.6, INR 1.1, APTT 32.4 07/07/20 13:10: Sodium 132 L, Potassium 4.2, Chloride 99, Carbon Dioxide 29.0, Anion Gap 4 L, BUN 16, Creatinine 0.76, Estim Creat Clear Calc 37.68, Est GFR (MDRD) Af Amer 93, Est GFR (MDRD) Non-Af 77, BUN/Creatinine Ratio 20.9 H, Glucose 114 H, Calcium 9.5 07/07/20 13:10: Lactic Acid 1.1 07/07/20 13:10: C-React Prot Ext Range 60.70 H 07/07/20 16:51: Hgb 11.5 L, Hct 36.0 L 07/07/20 16:51: Hemoglobin A1c 6.3 H 07/07/20 16:51: ESR 61 H 07/07/20 17:50: POC Glucose 196 H Current Medications Acetaminophen (Acetaminophen 325 Mg Tablet) 650 mg PO Q6H PRN PRN PRN Reason: Pain Score 1-10/Temp > 100.7 F Al Hydroxide/Mg Hydroxide (Mag Hydrox/Al Hydrox/Simeth 30 Ml Udc) 30 ml PO Q6H PRN PRN PRN Reason: Gastric Burning Albuterol Sulfate (Albuterol 2.5 Mg/3 Ml Vial.Neb.) 2.5 mg INHALATION Q2H PRN PRN PRN Reason: Shortness of Breath/Wheezing Amlodipine Besylate (Amlodipine 5 Mg Tablet) 5 mg PO DAILY [facility] Aspirin (Aspirin 81 Mg Tab.Chew) 81 mg PO QHS [facility] Enoxaparin Sodium (Enoxaparin 40 Mg/0.4 Ml Syringe) 40 mg SC DAILY [facility] Gabapentin (Gabapentin 100 Mg Capsule) 100 mg PO TIDCM [facility] Last Admin: 07/07/20 17:45 Dose: 100 mg Documented by: Hydralazine HCl (Hydralazine 20 Mg/Ml Vial) 10 mg IV Q6H PRN PRN PRN Reason: SBP > 160 Sodium Chloride () 1,000 mls @ 70 mls/hr IV .[id number] [facility] Levofloxacin (Levaquin Iv) 500 mg in 100 mls @ 100 mls/hr IV Q24 [facility] Last Admin: 07/07/20 17:45 Dose: 100 mls/hr Documented by: Insulin Human Lispro (Insulin Lispro 100 Unit/Ml Insuln.Pen) 0 unit SC TIDAC [facility]; Protocol Last Admin: 07/07/20 17:59 Dose: 2 u Documented by: Metoprolol Tartrate (Metoprolol Tartrate 25 Mg Tablet) 25 mg PO TID [facility] Multivitamins (Multivitamins,Therapeutic Tablet) 1 tablet PO DAILYCM [facility] Nitroglycerin (Nitroglycerin (Inpatient Use) 0.4 Mg Tab.Subl) 0.4 mg SUBLINGUAL Q5M PRN PRN Reason: .CHEST PAIN Ondansetron HCl (Ondansetron 4 Mg/2 Ml Vial) 4 mg IV Q8H PRN PRN PRN Reason: NAUSEA/VOMITING Oxycodone HCl (Oxycodone 5 Mg Tablet) 5 mg PO Q4H PRN PRN PRN Reason: Pain Score 4-10 Senna/Docusate Sodium (Senna/Docusate Sodium 1 Tablet) 2 tablet PO BID PRN PRN PRN Reason: Constipation Sodium Chloride (0.9% Saline Lock 10 Ml Syringe) 10 - 40 ml IV UD PRN PRN Reason: SALINE FLUSH Assessment/Plan All Active Problems (Last Reviewed 07/07/20 @ 17:[address] Cathie Das, DO) Osteomyelitis (Acute) GI bleed (Acute) Left foot fourth digit gangrene and osteomyelitis Left foot ulcerations first and fourth digit and fifth digit Left foot cellulitis Peripheral vascular disease Diabetes with neuropathy GI bleed Patient seen and examined bedside Patient is well-known to me and was seen at the wound care center on Friday, July 03, 2020 at which point new bone exposure to the left fourth digit was noted with infection cultures were obtained at that time which resulted this morning growing Pseudomonas. Patient also had an MRI ordered at this time. Patient was started on the on clindamycin. At this time time there was no necrosis noted to the fourth toe with capillary fill time intact to the digits Patient was recently seen by Dr. Nicholson of the vascular surgeon and intervention was recently undergone. Patient followed up with Dr. Nicholson on but you are 07/04/2020 and was told that she has been optimized as much as he can do from a vascular standpoint. Patient has had pain in her left lower extremity since the angiogram MRI obtained 07/04/2020 showed osteomyelitis to the left fourth digit of the proximal phalanx head and middle phalanx base, and ostitis of the fifth left digit to the middle and distal phalanx as well as ulcerations to the hallux. No abscesses were noted. Patient had a white blood cell count of 11.5 upon admission, ESR of 61, CRP of 60.7, hemoglobin A1c of 6.3, lactic acid of 1.1 Cultures obtained 07/03/2020 are growing Pseudomonas from the left fourth digit Blood cultures are pending and positive occult blood Discussed with the patient that given the significant increase in necrotic tissue since last being seen and given culture and MRI imaging the surgery was recommended in order to amputate the fourth digit. Fourth digit was also noted to have significant pallor to it and I do not believe that this toe is salvageable. Discussed also cleaning out ulcerations to the fifth and first digit left foot during the amputation surgery. Discussed all risks, benefits, alternatives, and complications including but not limited to infection delayed healing nonhealing need for further surgery with the patient. No guarantees were given or implied. Patient agreed to proceed with the procedure. All questions answered. I also called patient's daughter Alejandra to discuss care and treatment course with her. Discussed going to surgery tomorrow morning given the rapid increase in necrotic tissue and concern for necessitating more proximal amputation. The gangrene at this time is largely dry but there is drainage noted to the medial aspect which should easily convert to a wet gangrene scenario. 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 at midnight All questions answered Thank you for the consult Podiatry will continue to follow please contact if any questions or concerns Milly López DPM [facility] [phone] This note was generated with [employer] dictation software. It may contain incorrect words, spelling, and punctuation that were not noted in checking the note before signing.
[2020-07-07] MEDS: oxyCODONE 5 MG Tablet PO (19:20)
[2020-07-07] MEDS: 0.9% Normal Saline 1,000 ML 70 ML IV (20:47)
[2020-07-07 20:54] LABS: Hematocrit 30.7 % (37-47); Hemoglobin 10.1 g/dL (12.0-15.0)
[2020-07-07] MEDS: Aspirin 81 MG TAB.CHEW PO (21:32)
[2020-07-07 21:40] LABS: Bedside Glucose 120 mg/dL (70-110)
[2020-07-08] VITALS (17 sets, daily range): BP systolic 99–168; BP diastolic 40–76; PULSE 59–80; RESP 16–18; TEMP 36.1–36.8; O2SAT 95–100; BMI 23.6; BMI 23.1
[2020-07-08 00:57] LABS: Hematocrit 31.9 % (37-47); Hemoglobin 10.5 g/dL (12.0-15.0)
[2020-07-08] MEDS: oxyCODONE 5 MG Tablet PO ×4 (02:59→21:17)
[2020-07-08 05:28] LABS: Absolute Lymphocyte Count 2.08 X10^3/uL (0.83-4.51); Absolute Neutrophil Count 5.7 X10^3/uL (2.0-7.7); Basophil# 0.04 X10^3/uL; Basophil% 0.5 % (0-1); Eosinophil# 0.13 X10^3/uL; Eosinophils% 1.5 % (0-5); Hemoglobin 10.5 g/dL (12.0-15.0); Lymphocyte # 2.08 X10^3/ul (4.0); Lymphocyte % 23.6 % (19-41); Mean Corp Hgb Conc 31.8 g/dL (32-36); Mean Corpuscular Hgb 29.3 pg (27.0-32.0); Mean Corpuscular Volume 92.2 fL (81-99); Mean Platelet Vol. 8.7 fl (6.2-12.0); Monocyte% 9.1 % (0-10); NRBC Flagged by Analyzer 0 % (0-5); Neutrophil # 5.74 X10^3/uL (2.7-7.7); Platelet Count 452 K/mm3 (150-450); RBC Distribution Width CV 12.3 % (11.6-14.6); RBC Distribution Width SD 41.5 fl (35.1-43.9); Red Blood Count 3.58 M/mm3 (4.2-5.4); White Blood Count 8.8 K/mm3 (4.4-11.0)
--- NOTE | 2020-07-08 05:55 | EKG12_ITS ---
Test Reason : Blood Pressure : / mmHG Vent. Rate : 073 BPM Atrial Rate : 073 BPM P-R Int : 176 ms QRS Dur : 116 ms QT Int : 414 ms P-R-T Axes : 070 070 058 degrees QTc Int : 456 ms Normal sinus rhythm Right bundle branch block Abnormal ECG When compared with ECG of 12-JUN-2020 09:50, MANUAL COMPARISON REQUIRED, DATA IS UNCONFIRMED Confirmed by JENN HANNON, ELTON ([id number]), copy editor DAIANA HUSSEIN ([id number]) on 07/10/2020 11:02:25 AM Referred By: RHEA Confirmed By:ELTON BARAJAS MD
[2020-07-08 05:56] LABS: ALB/GLOB Ratio 0.7 RATIO (0.9-2.4); AST(SGOT) 16 U/L (15-37); Alanine Aminotransfer ALT/SGPT 14 U/L (13-56); Albumin, Serum 2.7 g/dL (3.2-5.0); Alkaline Phosphatase 70 U/L (45-117); Anion Gap 6 (5-15); BUN 11 mg/dL (7-18); BUN/Creat Ratio 18.7 RATIO (10-20); Calcium,Total 8.8 mg/dL (8.5-10.1); Chloride 102 mmol/L (98-107); Creatinine, Serum 0.59 mg/dL (0.55-1.02); EST Glomerular Filtration Rate 104 mL/min (>60); Est Glom Filt Rate - Afr Amer 125 mL/min (>60); Estimated Creatinine Clearance 36.16 ml/min; Glucose 116 mg/dL (74-106); Magnesium 1.9 mg/dL (1.6-2.6); Phosphorus 3.1 mg/dL (2.5-4.9); Protein, Total 6.7 g/dL (6.4-8.2); Sodium Level 135 mmol/L (136-145)
[2020-07-08 06:46] LABS: Bedside Glucose 114 mg/dL (70-110)
[2020-07-08] MEDS: Acetaminophen 325 MG Tablet 650 MG PO ×2 (06:46→20:08)
[2020-07-08] MEDS: Metoprolol Tartrate 25 MG Tablet PO ×3 (06:46→21:13)
[2020-07-08 07:31] LABS: Hemoglobin A1c 6.2 % (3.8-5.6)
--- NOTE | 2020-07-08 10:00 | BON_PTH ---
PATIENT: GENTRY COBB LOC: MS3 U#:[id number] AGE/SX: 84/F ROOM: MS305 RE07/07/[address]: Dr. Lizbet Salvador MD : [id number] BED: 1 DIS: 07/10/2020 SPEC #: [id number] RECD: 07/09/20 07:14 STATUS: MRAY RENubia #: [id number] ROHINI: 07/08/20 10:[address]: Milly López DEPT: SURGICAL PATHOLOGY RECD BY: Love Luciano ENTERED: 07/09/20 08:22 SP TYPE: Bone OTHR DR: MD Dr. Milly Alves, DPM Dr. Cathie Das, DO Dr. Sarbjit Moreno, Tissues: Toe, NOS Procedures: Decalcification bone/plaque Surgery Specimen Level IV Comments: @ Ordering doctor for DEC edited from to @ by SELAM at 07/09/20 1030 @ Ordering doctor for SUIV edited from to @ by SELAM at 07/09/20 1030 @ Submitting doctor edited from to @ by SELAM at 07/09/20 1030 HEADER OPERATION: Left fourth digit amputation, debridement left first and fifth digits PRE-OP DIAGNOSIS: Osteomyelitis left fourth toe, PVD, cellulitis, gangrene left fourth toe, left first and fifth toe diabetic ulcers TISSUE SUBMITTED: Left fourth toe bone MICROSCOPIC DIAGNOSIS Left fourth toe bone, amputation: Focal gangrenous necrosis and associated acute inflammation. Underlying bone with acute osteomyelitis. Resection margins of bone is negative for acute osteomyelitis. SANDY:jenn 07/12/2020 MICROSCOPIC DESCRIPTION Slides are reviewed. GROSS DESCRIPTION Received in fixative is one container labeled with the patient's name and designated left fourth toe bone. The specimen consists of three fragments. Two of the fragments are white-george, elongated and measuring 3.5 x 0.8 x 0.2 cm and resembling tendinous tissue. These fragments are sectioned and totally submitted in cassette 1. The second fragment consists of a toe with attached skin, bone, soft tissue and nail measuring 5.5 cm in length and 1.5 cm in average diameter. The mid portion of the tissue is dark george in color and appears mummified. Film And Video Graphics Designer sections of bone from margin of resection are submitted in cassette 2 after decalcification. A longitudinal section of the soft tissue, bone and nail of toe are submitted in cassette 3 after decalcification. / AM:jenn 07/09/20 TC:2 CPT: 91163, 86831
[2020-07-08] MEDS: Bupivacaine Mpf 0.5% 30 ML VIAL (10:15)
--- NOTE | 2020-07-08 10:53 | RAD_ITS ---
STUDY: X-RAY - LEFT FOOT CLINICAL: Status post fourth toe amputation for osteomyelitis. TECHNIQUE: 3 view(s) of the foot. COMPARISON: Radiographs 07/07/2020. FINDINGS: Normal talus, calcaneus, and tarsal bones. Normal visualized subtalar, talonavicular, calcaneocuboid, tarsal and tarsometatarsal articulations. Normal metatarsi. Normal metatarsophalangeal joint of the great toe. Normal tibial and fibular sesamoid bones. Normal interphalangeal joint of the great toe. Normal phalanges of the great toe. Normal second through fifth metatarsophalangeal joints. There is amputation of the fourth digit at the level of the metatarsophalangeal joint. RAD/Foot min 3 Views IMPRESSION: Amputation of the fourth digit without demonstrated complication. Electronically Signed: Jose Salinas MD at 8:32 EST Tel , Service support ,
--- NOTE | 2020-07-08 10:55 | PCM.OPRPT ---
Problem List (1) Non-pressure chronic ulcer of other part of left foot with fat layer exposed Status: Chronic (2) Osteomyelitis Status: Acute (3) GI bleed Status: Acute (4) Type 2 diabetes mellitus Status: Chronic (5) PAD (peripheral artery disease) Status: Chronic (6) Peripheral arterial occlusive disease Status: Chronic Report of Operation Date of Procedure: 07/08/20 Pre-Operative Diagnosis: Left foot fourth digit osteomyelitis. Left foot fourth digit gangrene. Left foot cellulitis. Left foot ulcerations first and fifth digit. Diabetes with neuropathy. Peripheral vascular disease Post-Operative Diagnosis: Same Surgery/Procedure Performed:: Amputation left fourth digit. Debridement of ulcerations first and fifth digit left foot Description of Surgical Findings:: Sutured 3-0 Vicryl and 4-0 nylon Purulent drainage noted to fourth digit 10 cc of 0.5% Marcaine plain hand etcher helper: Milly López - Surgeon Angela Davidson PGY1 baking assistant Type of Anesthesia:: Local MAC, Local Specimen's removed: Left fourth toe. Left fourth proximal phalanx bone. Left fourth MPJ swab Estimated Blood Loss (mL): <20cc Description of Procedure: Indication for procedure: Patient is a 84-year-old female who is well-known to me has been following up at the wound care center last seen on 07/03/2020. Patient was admitted for worsening of left fourth digit ulceration. Patient was recently optimized by Dr. Nicholson the vascular surgeon and had follow-up appointment earlier this week confirming no further intervention necessary. Patient was started on gabapentin by her primary doctor to help control some of the pain. Patient was also started on clindamycin with cultures taken at the wound care center this week. Cultures have since resulted yesterday showing Pseudomonas. Antibiotics were changed appropriately upon admission to the hospital. When last seen at the wound care center there was no cyanosis or necrotic tissue or gangrene noted to the fourth digit. This is no longer true upon presentation to the hospital. Discussed that as the toe is rapidly worsening there is concern for infection to spread. Discussed removal of the toe as well as or debridement of the first and fifth digits on the left foot as well. Discussed with the patient that due to the severity of the infection that further bone resection and surgery was required in order to remove the infection. Patient had all risk benefits alternatives the complications including but not limited to infection, delayed healing, nonhealing, need for further surgery or amputation was discussed with the patient. No guarantees were given or implied. Patient agreed to proceed with the procedure. All questions were answered. Case and treatment plan was also reviewed with patient's daughter Alejandra. Description of procedure: Patient was seen in the preoperative holding area where chart was reviewed and patient was examined and all questions were answered to patient satisfaction. Patient then transferred to the OR and placed on the OR table in supine position. After administration of IV line IV sedation additional 10 cc of half percent Marcaine plain was injected in digital block type fashion to first fourth and fifth digits left foot. A well-padded ankle tourniquet was applied but not inflated at this time. The operative foot and ankle were then prepped and draped in the usual sterile fashion. A skin scribe was then utilized in order to draw out the racquet type incision to the affected toe and a 15 blade was then utilized to make the incision in a through and through fashion through epidermal dermal layers into the subcutaneous tissue with all vital neurovascular structures retracted or cauterized as necessary. Incision was deepened down to the level of bone at which time approximately 3 cc of purulent drainage was expressed. The toe was disarticulated at the level of the metatarsophalangeal joint. It was then removed from the field and sent as specimen. Site was then examined and all remaining devitalized tissue was removed no remaining infection or purulent drainage was seen. Remaining bone looked healthy and hard in appearance. The site was then flushed with copious amounts of normal sterile saline utilizing a pulse lavage. Deep swab cultures were then obtained post lavage and sent to microbiology. Pickup and 15 blade were then utilized in order to debride ulcerations to medial first digit and lateral fifth digit. Sharp excisional nonselective debridement was carried out into the level of subcutaneous tissue with a #15 blade with removal of all devitalized, slough, biofilm, and fibrous tissue. This was done without incidence. There is sanguinous drainage noted after debridement. Base was largely granular after debridement. Left first digit predebridement measurements were 0.8 x 0.7 x 0.1 cm and post debridement measured 1 x 0.9 x 0.2 cm. Left fifth digit ulceration predebridement measurements were 0.9 x 0.6 x 0.1 cm and post debridement measurements were 1.1 x 0.8 x 0.2 cm. Amputation site was then closed in a layered suture fashion with Vicryl for the deep layers and nylon for skin layers. The site was then dressed with Betadine soaked Adaptic to fourth amputation site, Aquacel silver to ulcerations first and fifth digit, 4 x 4's, Kerlix Pedro, wrap. Patient was then sent to PACU with vital signs status intact. Podiatry will follow up with patient. Patient will be readmitted to the floor per PACU protocol This note was generated with [employer] dictation software. It may contain incorrect words, spelling, and punctuation that were not noted in checking the note before signing. - Complications None - Admit VTE Documentation VTE Present on Admission: Yes VTE Mechan Device Prophylaxis: SCD's VTE Pharm Prophylaxis ordered?: Yes
[2020-07-08] MEDS: levoFLOXacin IV 500 MG/100 ML BAG 100 MG IV (11:55)
[2020-07-08] MEDS: amLODIPine 5 MG Tablet PO (11:58)
[2020-07-08] MEDS: Gabapentin 100 MG Capsule PO ×2 (11:58→16:49)
[2020-07-08] MEDS: Enoxaparin 40 MG/0.4 ML Syringe SC (11:58)
[2020-07-08 12:25] LABS: Bedside Glucose 91 mg/dL (70-110)
--- NOTE | 2020-07-08 16:26 | PN_ITS ---
Patient Problems: Active and Suspected Problems (Last Reviewed 07/07/20 @ 17:[address] Cathie Das, DO) Osteomyelitis (Acute) GI bleed (Acute) Subjective: Patient was seen and examined today, she underwent amputation of her left fourth toe today, I talked with her daughter briefly was in the room today with her. Patient is currently on IV Levaquin. Previous cultures showed Pseudomonas susceptible to levofloxacin. Patient's hemoglobin has been stable, she presented to the ER yesterday with some rectal bleeding. - Physical Exam Vitals/I&O's: Vital Signs Temp Pulse Resp BP Pulse Ox 97.7 F L 75 18 151/40 H 98 07/08/20 13:46 07/08/20 14:15 07/08/20 13:46 07/08/20 13:46 07/08/20 13:46 Oxygen Delivery Method Room Air Weight: 62.6 kg Body Mass Index (BMI) 23.6 Intake and Output for Last 24 Hours 07/06/20 07/07/20 07/08/20 23:59 23:59 23:59 Intake Total 1390 / 1640 350 / 350 Output Total 300 / 300 Balance 1390 / 1640 50 / 50 General: Alert, Oriented x3, Cooperative, No apparent distress, Well developed, Well nourished HEENT: Atraumatic, PERRLA, EOMI, Normocephalic Oral: Moist Mucosa Neck: Supple, No JVD, Trachea Midline, Thyroid Normal Size and Texture Lungs: Clear to auscultation, Normal air movement, No rhonchi, No wheeze, No rales Cardiovascular: Regular rate, Regular Rhythm, Normal S1, Normal S2, No murmurs Abdomen: Bowel Sounds Present, Soft, Non Tender, Non-Distended Extremities: No clubbing, No cyanosis, Capillary Refill Less than 3 Seconds, - - Left foot is wrapped with surgical dressing at this time this was not removed for examination of wound Skin: No rashes Neurological: Cranial nerves II-XII grossly intact, Neuro grossly intact, Sensory exam intact to light touch and pain Psych/Mental Status: Normal Affect, Appropriate, Alert and oriented to time, place, person, mood and affect Microbiology Past 72 Hours 07/07/20 21:15 Mucosa - Nose SARS-CoV-2 Antigen (Rapid) - Final 07/07/20 14:20 Stool Stool Occult Blood ([place]) - Final Occult Blood Positive Laboratory Results 07/07/20 13:10: C-React Prot Ext Range 60.70 H 07/07/20 16:51: Hgb 11.5 L, Hct 36.0 L 07/07/20 16:51: Hemoglobin A1c 6.3 H 07/07/20 16:51: ESR 61 H 07/07/20 17:50: POC Glucose 196 H 07/07/20 20:43: Hgb 10.1 L, Hct 30.7 L 07/07/20 21:32: POC Glucose 120 H 07/08/20 00:32: Hgb 10.5 L, Hct 31.9 L 07/08/20 04:35: WBC 8.8, RBC 3.58 L, Hgb 10.5 L, Hct 33.0 L, MCV 92.2, MCH 29.3, MCHC 31.8 L, RDW Std Deviation 41.5, RDW Coeff of Kathy 12.3, Plt Count 452 H, MPV 8.7, Immature Gran % (Auto) 0.300, Neut % (Auto) 65.0, Lymph % (Auto) 23.6, [place] % (Auto) 9.1, Eos % (Auto) 1.5, Baso % (Auto) 0.5, Absolute Neuts (auto) 5.7, Absolute Lymphs (auto) 2.08, Nucleated RBC % 0 07/08/20 04:35: Sodium 135 L, Potassium 4.0, Chloride 102, Carbon Dioxide 27.0, Anion Gap 6, BUN 11, Creatinine 0.59, Estim Creat Clear Calc 36.16, Est GFR (MDRD) Af Amer 125, Est GFR (MDRD) Non-Af 104, BUN/Creatinine Ratio 18.7, Glucose 116 H, Calcium 8.8, Phosphorus 3.1, Magnesium 1.9, Total Bilirubin 0.50, AST 16, ALT 14, Alkaline Phosphatase 70, Total Protein 6.7, Albumin 2.7 L, Globulin 4.0, Albumin/Globulin Ratio 0.7 L 07/08/20 04:35: Hemoglobin A1c 6.2 H 07/08/20 06:39: POC Glucose 114 H 07/08/20 12:07: POC Glucose 91 Current Medications Acetaminophen (Acetaminophen 325 Mg Tablet) 650 mg PO Q6H PRN PRN PRN Reason: Pain Score 1-10/Temp > 100.7 F Last Admin: 07/08/20 06:46 Dose: 650 mg Documented by: Al Hydroxide/Mg Hydroxide (Mag Hydrox/Al Hydrox/Simeth 30 Ml Udc) 30 ml PO Q6H PRN PRN PRN Reason: Gastric Burning Albuterol Sulfate (Albuterol 2.5 Mg/3 Ml Vial.Neb.) 2.5 mg INHALATION Q2H PRN PRN PRN Reason: Shortness of Breath/Wheezing Amlodipine Besylate (Amlodipine 5 Mg Tablet) 5 mg PO DAILY [facility] Last Admin: 07/08/20 11:58 Dose: 5 mg Documented by: Aspirin (Aspirin 81 Mg Tab.Chew) 81 mg PO QHS [facility] Last Admin: 07/07/20 21:32 Dose: 81 mg Documented by: Enoxaparin Sodium (Enoxaparin 40 Mg/0.4 Ml Syringe) 40 mg SC DAILY [facility] Last Admin: 07/08/20 11:58 Dose: 40 mg Documented by: Gabapentin (Gabapentin 100 Mg Capsule) 100 mg PO TIDCM [facility] Last Admin: 07/08/20 11:58 Dose: 100 mg Documented by: Hydralazine HCl (Hydralazine 20 Mg/Ml Vial) 10 mg IV Q6H PRN PRN PRN Reason: SBP > 160 Sodium Chloride () 1,000 mls @ 70 mls/hr IV .[id number] [facility] Last Admin: 07/07/20 23:08 Dose: Not Given Documented by: Levofloxacin (Levaquin Iv) 500 mg in 100 mls @ 100 mls/hr IV Q24 [facility] Last Infusion: 07/08/20 12:55 Dose: Infused Documented by: Insulin Human Lispro (Insulin Lispro 100 Unit/Ml Insuln.Pen) 0 unit SC TIDAC [facility]; Protocol Last Admin: 07/08/20 12:11 Dose: Not Given Documented by: Metoprolol Tartrate (Metoprolol Tartrate 25 Mg Tablet) 25 mg PO TID [facility] Last Admin: 07/08/20 14:15 Dose: 25 mg Documented by: Multivitamins (Multivitamins,Therapeutic Tablet) 1 tablet PO DAILYCM [facility] Last Admin: 07/08/20 08:45 Dose: Not Given Documented by: Nitroglycerin (Nitroglycerin (Inpatient Use) 0.4 Mg Tab.Subl) 0.4 mg SUBLINGUAL Q5M PRN PRN Reason: .CHEST PAIN Ondansetron HCl (Ondansetron 4 Mg/2 Ml Vial) 4 mg IV Q8H PRN PRN PRN Reason: NAUSEA/VOMITING Oxycodone HCl (Oxycodone 5 Mg Tablet) 5 mg PO Q4H PRN PRN PRN Reason: Pain Score 4-10 Last Admin: 07/08/20 07:01 Dose: 5 mg Documented by: Senna/Docusate Sodium (Senna/Docusate Sodium 1 Tablet) 2 tablet PO BID PRN PRN PRN Reason: Constipation Sodium Chloride (0.9% Saline Lock 10 Ml Syringe) 10 - 40 ml IV UD PRN PRN Reason: SALINE FLUSH Medical Necessity - Tobacco Use Smoking Status: Former smoker Tobacco Use: - Assessment/Plan All Active Problems (Last Reviewed 07/07/20 @ 17:[address] Cathie Das, DO) Osteomyelitis (Acute) GI bleed (Acute) #1 osteomyelitis and gangrene of the left fourth toe secondary to peripheral vascular disease and type 2 diabetes, status post amputation of left fourth toe postop day 0-continue Levaquin, I will convert this to oral Levaquin. PT and OT will be seeing the patient #2 rectal bleeding-probably hemorrhoidal in nature, this does not seem to be major, patient's hemoglobin appears to be stable #3 type 2 diabetes-blood sugars will be monitored #4 peripheral vascular disease #5 coronary artery disease #6 diabetic neuropathy Inpatient E&M: 26965 [facility] Hosp L2
[2020-07-08] MEDS: 0.9% Normal Saline 1,000 ML 70 ML IV (16:53)
[2020-07-08 17:00] LABS: Bedside Glucose 145 mg/dL (70-110)
[2020-07-08] MEDS: Aspirin 81 MG TAB.CHEW PO (21:13)
[2020-07-08 21:21] LABS: Bedside Glucose 168 mg/dL (70-110)
[2020-07-08] MEDS: Ondansetron 4 MG/2 ML Vial IV (23:55)
[2020-07-08] MEDS: Morphine 2 MG/ML Syringe IV (23:55)
[2020-07-09] VITALS (7 sets, daily range): BP systolic 95–132; BP diastolic 59–103; PULSE 68–95; RESP 16–18; TEMP 36.7–36.9; O2SAT 95–98; BMI 23.1
[2020-07-09] MEDS: 0.9% Normal Saline 1,000 ML 70 ML IV ×2 (03:07→17:25)
[2020-07-09] MEDS: oxyCODONE 5 MG Tablet PO ×2 (03:13→08:41)
[2020-07-09] MEDS: Morphine 2 MG/ML Syringe IV ×2 (04:28→20:44)
[2020-07-09] MEDS: Metoprolol Tartrate 25 MG Tablet PO ×2 (06:18→20:48)
[2020-07-09] MEDS: levoFLOXacin 750 MG Tablet PO (06:18)
[2020-07-09] MEDS: Acetaminophen 325 MG Tablet 650 MG PO (06:23)
[2020-07-09 06:31] LABS: Bedside Glucose 133 mg/dL (70-110)
[2020-07-09] MEDS: Gabapentin 100 MG Capsule PO ×3 (08:42→16:25)
[2020-07-09] MEDS: Multivitamins,Therapeutic Tablet 1 TABLET PO (08:42)
[2020-07-09] MEDS: Enoxaparin 40 MG/0.4 ML Syringe SC (09:44)
[2020-07-09] MEDS: amLODIPine 5 MG Tablet PO (09:44)
--- NOTE | 2020-07-09 11:20 | CASEMGMT ---
RN CM Face to Face with patient for initial transition planning/care coordination assessment. RN CM introduced self and role at [facility]. Patient sitting in chair, alert and oriented, daughter at bedside. Patient willing to participate in assessment and is able to answer all questions appropriately. Care providers, pharmacy, and demographics verified. Patient wishes to discharge home with possible HHC. Patient states she has no further needs or concerns at this time. CM to follow for discharge planning needs that may arise. PCP: Selina Specialists: Aiden, credit correspondence clerk; Lyn, vascular; Kota, mutuel machine operator Preferred Pharmacy: [facility], but prefer [facility] retail at discharge. Insurance: [employer] Prescription Benefit: yes Living Will/HPOA: yes, daughter Nancy Retting, HPOA LNOK: daughters Living Arrangements: Patient lives with daughter in a 2 story home with bed and bath on first floor. Patient has 2 steps to enter the home. Patient states she was independent at home. Patient states she will be staying with other daughter to assist with care. Daughter Nancy states she can assist with wound care. Transportation: daughter DME/HHC: Patient states she has cane and grab bars at home. Patient will benefit from FWW and BSC at discharge. RN CM to assist with setup. Disposition Plan: Patient to discharge home with HHC, family support, and follow-up plans in place. Daina MORTON, RN, CM
[2020-07-09] MEDS: Insulin Lispro 100 UNIT/ML INSULN.PEN SC (11:22)
[2020-07-09] MEDS: oxyCODONE 5 MG Tablet 10 MG PO ×2 (11:28→19:39)
[2020-07-09 11:36] LABS: Bedside Glucose 204 mg/dL (70-110)
--- NOTE | 2020-07-09 13:15 | CASEMGMT ---
IKE CM in to discuss HHC and DME agencies. Patient was provided a list of HHC providers including quality and resource use data and consistent with the patient?s preferred geographic region, medical needs, and insurance network. Patient to review list and discuss with daughter. CM will continue to follow this patient and plan for a safe discharge.
--- NOTE | 2020-07-09 15:34 | CASEMGMT ---
SW let pt know that LW/POA forms are not on file, asked her to bring them in as able sometime in the future. Pt states understanding. PAOLA Rodney
--- NOTE | 2020-07-09 16:31 | PCM.PROGNOTE ---
Patient Problems: Active and Suspected Problems (Last Reviewed 07/07/20 @ 17:[address] Cathie Das DO) Osteomyelitis (Acute) GI bleed (Acute) Subjective: Patient was seen today for follow up on left foot. She relates there is pain noted to the foot. She is resting in chair with her daughter present in room. Patient did not relate to any fever, chills, nausea or vomiting. - Physical Exam Vitals/I&O's: Vital Signs Temp Pulse Resp BP Pulse Ox 98.1 F 68 16 95/64 95 07/09/20 13:40 07/09/20 13:40 07/09/20 13:40 07/09/20 13:40 07/09/20 13:40 Oxygen Delivery Method Room Air Weight: 62.6 kg Body Mass Index (BMI) 23.6 Intake and Output for Last 24 Hours 07/07/20 07/08/20 07/09/20 23:59 23:59 23:59 Intake Total 1390 / 1640 2200 / 2200 966.33 / 966.33 Output Total 1400 / 1400 825 / 825 Balance 1390 / 1640 800 / 800 141.33 / 141.33 General: Alert, Oriented x3, Cooperative, No apparent distress Extremities: Capillary Refill Less than 3 Seconds, No Calf Tenderness, - - Left foot s/p 4th toe amp - site healing well, tissues healthy and viable with no evidence of complication, trace erythema around incision site c/w normal post op course, cellulitis significantly improved left forefoot Skin: Ulcer/ Wound - ulceration medial 1st toe and lateral 5th toe left foot with healthy viable tissue down to subcutaneous tissue with no evidence of infection or deep invovlement at this time - no necrosis or evidence of infection. Musculoskeletal: No Tenderness to Palpation of Joints or Extremities - left foot or ankle Psych/Mental Status: Normal Affect, Appropriate, Alert and oriented to time, place, person, mood and affect Microbiology Past 72 Hours 07/07/20 13:55 Blood Culture (Wb) - Anticubital Right Blood Culture - Preliminary No growth in 48 hours. 07/07/20 13:10 Blood Culture (Wb) - Anticubital Left Blood Culture - Preliminary No growth in 48 hours. 07/08/20 Unknown Tissue - Left Foot Gram Stain - Final 07/08/20 Unknown Bone - Left Foot Gram Stain - Final 07/08/20 Unknown Bone - Left Foot Wound Culture - Preliminary No growth-Final to follow 07/07/20 21:15 Mucosa - Nose SARS-CoV-2 Antigen (Rapid) - Final 07/07/20 14:20 Stool Stool Occult Blood ([place]) - Final Occult Blood Positive Laboratory Results 07/08/20 16:40: POC Glucose 145 H 07/08/20 21:15: POC Glucose 168 H 07/09/20 06:20: POC Glucose 133 H 07/09/20 11:21: POC Glucose 204 H Current Medications Acetaminophen (Acetaminophen 325 Mg Tablet) 650 mg PO Q6H PRN PRN PRN Reason: Pain Score 1-10/Temp > 100.7 F Last Admin: 07/09/20 06:23 Dose: 650 mg Documented by: Al Hydroxide/Mg Hydroxide (Mag Hydrox/Al Hydrox/Simeth 30 Ml Udc) 30 ml PO Q6H PRN PRN PRN Reason: Gastric Burning Albuterol Sulfate (Albuterol 2.5 Mg/3 Ml Vial.Neb.) 2.5 mg INHALATION Q2H PRN PRN PRN Reason: Shortness of Breath/Wheezing Amlodipine Besylate (Amlodipine 5 Mg Tablet) 5 mg PO DAILY [facility] Last Admin: 07/09/20 09:44 Dose: 5 mg Documented by: Aspirin (Aspirin 81 Mg Tab.Chew) 81 mg PO QHS [facility] Last Admin: 07/08/20 21:13 Dose: 81 mg Documented by: Enoxaparin Sodium (Enoxaparin 40 Mg/0.4 Ml Syringe) 40 mg SC DAILY [facility] Last Admin: 07/09/20 09:44 Dose: 40 mg Documented by: Gabapentin (Gabapentin 100 Mg Capsule) 100 mg PO TIDCM [facility] Last Admin: 07/09/20 16:25 Dose: 100 mg Documented by: Hydralazine HCl (Hydralazine 20 Mg/Ml Vial) 10 mg IV Q6H PRN PRN PRN Reason: SBP > 160 Sodium Chloride () 1,000 mls @ 70 mls/hr IV .[id number] [facility] Last Admin: 07/09/20 03:07 Dose: 70 mls/hr Documented by: Insulin Human Lispro (Insulin Lispro 100 Unit/Ml Insuln.Pen) 0 unit SC TIDAC [facility]; Protocol Last Admin: 07/09/20 16:25 Dose: Not Given Documented by: Levofloxacin (Levofloxacin 750 Mg Tablet) 750 mg PO QODAY@0600 [facility] Last Admin: 07/09/20 06:18 Dose: 750 mg Documented by: Metoprolol Tartrate (Metoprolol Tartrate 25 Mg Tablet) 25 mg PO BID [facility] Morphine Sulfate (Morphine 4 Mg/Ml Syringe) 2 - 4 mg IV Q6H PRN PRN PRN Reason: Pain Score 6-10 Morphine Sulfate (Morphine 2 Mg/Ml Syringe) 2 - 4 mg IV Q6H PRN PRN PRN Reason: Pain Score 6-10 Multivitamins (Multivitamins,Therapeutic Tablet) [facility] Last Admin: 07/09/20 08:42 Dose: 1 tablet Documented by: Nitroglycerin (Nitroglycerin (Inpatient Use) 0.4 Mg Tab.Subl) 0.4 mg SUBLINGUAL Q5M PRN PRN Reason: .CHEST PAIN Ondansetron HCl (Ondansetron 4 Mg/2 Ml Vial) 4 mg IV Q8H PRN PRN PRN Reason: NAUSEA/VOMITING Last Admin: 07/08/20 23:55 Dose: 4 mg Documented by: Oxycodone HCl (Oxycodone 5 Mg Tablet) 10 mg PO Q4H PRN PRN PRN Reason: Pain Score 4-10 Last Admin: 07/09/20 11:28 Dose: 10 mg Documented by: Senna/Docusate Sodium (Senna/Docusate Sodium 1 Tablet) 2 tablet PO BID PRN PRN PRN Reason: Constipation Sodium Chloride (0.9% Saline Lock 10 Ml Syringe) 10 - 40 ml IV UD PRN PRN Reason: SALINE FLUSH Medical Necessity - Tobacco Use Smoking Status: Former smoker Tobacco Use: - Assessment/Plan All Active Problems (Last Reviewed 07/07/20 @ 17:[address] Cathie Das DO) Osteomyelitis (Acute) GI bleed (Acute) Left foot fourth digit gangrene and osteomyelitis s/p amputation on 07/08/2020 Left foot ulcerations first and fourth digit and fifth digit s/p debridement on 07/08/2020 Left foot cellulitis - much improved Peripheral vascular disease s/p intervention with Dr. Nicholson Diabetes with neuropathy GI bleed Patient seen and examined bedside. Left foot with significant improvement and doing well at this time. Patient relates feet significantly better after dressing change today. Dressing changed - aquacel ag to 1st and 5th toe wound sites, betadine soln to incision site 4th toe amp site - overlying gauze, kerlix and light jose. Change tomorrow, then leave clean, dry and intact. Partial weightbearing left foot - no weightbearing to left forefoot, but ok for weightbearing on left heel with assistance of surgical shoe and regular walker. Limit activity on left foot as much as possible. Reviewed culture results - finals pending. Patient has been switched to oral Levaquin. Patient follows with Dr. Nicholson for PAD - there is no evidence of acute ischemia. Likely d/c home with daughter tomorrow - patient to follow up with Dr. López in clinic on Thursday, sooner if needed.
[2020-07-09 16:36] LABS: Bedside Glucose 108 mg/dL (70-110)
--- NOTE | 2020-07-09 18:12 | PN_ITS ---
Patient Problems: Active and Suspected Problems (Last Reviewed 07/07/20 @ 17:[address] Cathie Das DO) Osteomyelitis (Acute) GI bleed (Acute) Subjective: Patient was seen and examined today, I discussed her care with podiatry, patient was having increased pain at her amputation site in her left foot today, daughter was reluctant to take her home today and the patient was also reluctant to go home. I increase the patient's pain medication, I took the liberty of phoning in the patient's prescriptions to our pharmacy for possible discharge tomorrow. - Physical Exam Vitals/I&O's: Vital Signs Temp Pulse Resp BP Pulse Ox 98.1 F 68 16 95/64 95 07/09/20 13:40 07/09/20 13:40 07/09/20 13:40 07/09/20 13:40 07/09/20 13:40 Oxygen Delivery Method Room Air Weight: 62.6 kg Body Mass Index (BMI) 23.6 Intake and Output for Last 24 Hours 07/07/20 07/08/20 07/09/20 23:59 23:59 23:59 Intake Total 1390 / 1640 2200 / 2200 1966.33 / 1966.33 Output Total 1400 / 1400 825 / 825 Balance 1390 / 1640 800 / 800 1141.33 / 1141.33 General: Alert, Oriented x3, Cooperative, No apparent distress, Well developed, Well nourished HEENT: Atraumatic, PERRLA, EOMI, Normocephalic Oral: Moist Mucosa Neck: Supple, No JVD, Trachea Midline, Thyroid Normal Size and Texture Lungs: Clear to auscultation, Normal air movement, No rhonchi, No wheeze, No rales Cardiovascular: Regular rate, Regular Rhythm, Normal S1, Normal S2, No murmurs, PMI Normal, No rub noted, No Gallop Abdomen: Bowel Sounds Present, Soft, Non Tender, Non-Distended Extremities: No clubbing, No cyanosis, Capillary Refill Less than 3 Seconds Neurological: Cranial nerves II-XII grossly intact, Neuro grossly intact, Sensory exam intact to light touch and pain, Coordination normal Psych/Mental Status: Normal Affect, Appropriate, Alert and oriented to time, place, person, mood and affect Microbiology Past 72 Hours 07/07/20 13:55 Blood Culture (Wb) - Anticubital Right Blood Culture - Preliminary No growth in 48 hours. 07/07/20 13:10 Blood Culture (Wb) - Anticubital Left Blood Culture - Preliminary No growth in 48 hours. 07/08/20 Unknown Tissue - Left Foot Gram Stain - Final 07/08/20 Unknown Bone - Left Foot Gram Stain - Final 07/08/20 Unknown Bone - Left Foot Wound Culture - Preliminary No growth-Final to follow 07/07/20 21:15 Mucosa - Nose SARS-CoV-2 Antigen (Rapid) - Final 07/07/20 14:20 Stool Stool Occult Blood ([place]) - Final Occult Blood Positive Laboratory Results 07/08/20 21:15: POC Glucose 168 H 07/09/20 06:20: POC Glucose 133 H 07/09/20 11:21: POC Glucose 204 H 07/09/20 16:24: POC Glucose 108 Current Medications Acetaminophen (Acetaminophen 325 Mg Tablet) 650 mg PO Q6H PRN PRN PRN Reason: Pain Score 1-10/Temp > 100.7 F Last Admin: 07/09/20 06:23 Dose: 650 mg Documented by: Al Hydroxide/Mg Hydroxide (Mag Hydrox/Al Hydrox/Simeth 30 Ml Udc) 30 ml PO Q6H PRN PRN PRN Reason: Gastric Burning Albuterol Sulfate (Albuterol 2.5 Mg/3 Ml Vial.Neb.) 2.5 mg INHALATION Q2H PRN PRN PRN Reason: Shortness of Breath/Wheezing Amlodipine Besylate (Amlodipine 5 Mg Tablet) 5 mg PO DAILY [facility] Last Admin: 07/09/20 09:44 Dose: 5 mg Documented by: Aspirin (Aspirin 81 Mg Tab.Chew) 81 mg PO QHS [facility] Last Admin: 07/08/20 21:13 Dose: 81 mg Documented by: Enoxaparin Sodium (Enoxaparin 40 Mg/0.4 Ml Syringe) 40 mg SC DAILY [facility] Last Admin: 07/09/20 09:44 Dose: 40 mg Documented by: Gabapentin (Gabapentin 100 Mg Capsule) 100 mg PO TIDCM [facility] Last Admin: 07/09/20 16:25 Dose: 100 mg Documented by: Hydralazine HCl (Hydralazine 20 Mg/Ml Vial) 10 mg IV Q6H PRN PRN PRN Reason: SBP > 160 Sodium Chloride () 1,000 mls @ 70 mls/hr IV .[id number] [facility] Last Admin: 07/09/20 17:25 Dose: 70 mls/hr Documented by: Insulin Human Lispro (Insulin Lispro 100 Unit/Ml Insuln.Pen) 0 unit SC TIDAC [facility]; Protocol Last Admin: 07/09/20 16:25 Dose: Not Given Documented by: Levofloxacin (Levofloxacin 750 Mg Tablet) 750 mg PO QODAY@0600 [facility] Last Admin: 07/09/20 06:18 Dose: 750 mg Documented by: Metoprolol Tartrate (Metoprolol Tartrate 25 Mg Tablet) 25 mg PO BID [facility] Morphine Sulfate (Morphine 4 Mg/Ml Syringe) 2 - 4 mg IV Q6H PRN PRN PRN Reason: Pain Score 6-10 Morphine Sulfate (Morphine 2 Mg/Ml Syringe) 2 - 4 mg IV Q6H PRN PRN PRN Reason: Pain Score 6-10 Multivitamins (Multivitamins,Therapeutic Tablet) [facility] Last Admin: 07/09/20 08:42 Dose: 1 tablet Documented by: Nitroglycerin (Nitroglycerin (Inpatient Use) 0.4 Mg Tab.Subl) 0.4 mg SUBLINGUAL Q5M PRN PRN Reason: .CHEST PAIN Ondansetron HCl (Ondansetron 4 Mg/2 Ml Vial) 4 mg IV Q8H PRN PRN PRN Reason: NAUSEA/VOMITING Last Admin: 07/08/20 23:55 Dose: 4 mg Documented by: Oxycodone HCl (Oxycodone 5 Mg Tablet) 10 mg PO Q4H PRN PRN PRN Reason: Pain Score 4-10 Last Admin: 07/09/20 11:28 Dose: 10 mg Documented by: Senna/Docusate Sodium (Senna/Docusate Sodium 1 Tablet) 2 tablet PO BID PRN PRN PRN Reason: Constipation Sodium Chloride (0.9% Saline Lock 10 Ml Syringe) 10 - 40 ml IV UD PRN PRN Reason: SALINE FLUSH Medical Necessity - Tobacco Use Smoking Status: Former smoker Tobacco Use: - Assessment/Plan All Active Problems (Last Reviewed 07/07/20 @ 17:[address] Cathie Das DO) Osteomyelitis (Acute) GI bleed (Acute) #1 osteomyelitis and gangrene of the left fourth toe secondary to peripheral vascular disease and type 2 diabetes, status post amputation of left fourth toe postop day 1-continue Levaquin, she is receiving Levaquin every other day, she will need follow-up with podiatry this Thursday. #2 rectal bleeding-probably hemorrhoidal in nature, patient did not complain to this examiner of any more rectal bleeding. #3 type 2 diabetes-blood sugars will be monitored #4 peripheral vascular disease #5 coronary artery disease #6 diabetic neuropathy Patient will be given signed prescriptions for a wheeled walker and a bedside commode, I signed these prescriptions today. Inpatient E&M: [id number] Subs Hosp L2
[2020-07-09] MEDS: 0.9% Saline Lock 10 ML Syringe IV (20:44)
[2020-07-09] MEDS: Aspirin 81 MG TAB.CHEW PO (20:48)
[2020-07-09 21:01] LABS: Bedside Glucose 158 mg/dL (70-110)
[2020-07-10] MEDS: Acetaminophen 325 MG Tablet 650 MG PO (01:56)
[2020-07-10] MEDS: oxyCODONE 5 MG Tablet 10 MG PO ×2 (01:56→06:41)
[2020-07-10 02:00] VITALS: BP 127/80; PULSE 85; RESP 16; TEMP 36.6; O2SAT 96
[2020-07-10 06:50] LABS: Bedside Glucose 106 mg/dL (70-110)
[2020-07-10 08:42] VITALS: BP 94/45; PULSE 73; RESP 16; TEMP 37.3; O2SAT 95
[2020-07-10] MEDS: Multivitamins,Therapeutic Tablet 1 TABLET PO (08:49)
[2020-07-10] MEDS: Gabapentin 100 MG Capsule PO ×2 (08:49→11:15)
--- NOTE | 2020-07-10 09:33 | NURSING ---
wound photo: left great toe
--- NOTE | 2020-07-10 09:34 | NURSING ---
wound photo: left 5th toe
--- NOTE | 2020-07-10 09:35 | NURSING ---
wound photo: left 4th toe amputation site
--- NOTE | 2020-07-10 10:10 | PCM.DC.POD ---
Weight Bearing Status: Partial weight bearing - Left foot: No weight on toes or ball of foot, ok to put weight down on heel only for transitions and very short distances. Call your doctor if your incision/area has: Continuous Slow Oozing, Sudden Increased Bleeding, Increased Redness, Foul Smelling Discharge Call your doctor if you observe: Fever of 101 or Higher, Uncontrolled pain Cleanse incision/area with: Keep Dressing Clean & Dry - Left foot dressing: Keep clean, dry and intact until you follow up with Dr. López on Thursday. If there is a problem with the dressing please call [facility] as soon as possible. Allergies/Adverse Reactions: Allergies pravastatin Adverse Reaction (Severe, Verified 07/07/20 13:09) myalgias Sulfa (Sulfonamide Antibiotics) Adverse Reaction (Mild, Verified 07/07/20 13:09) stomach upset atorvastatin Adverse Reaction (Verified 07/07/20 13:09) myalgias Medications to take at Discharge Aspirin [Aspirin, Baby] 81 mg PO QHS 06/07/16 Clopidogrel Bisulfate [Plavix] 75 mg PO DAILY 06/07/16 coenzyme Q10 10 mg capsule 10 mg PO DAILY 01/11/19 nitroglycerin 0.4 mg sublingual tablet 0.4 mg SUBLINGUAL Q5-15M 01/11/19 multivitamin 1 tab PO DAILY 04/28/19 omega-3 fatty acids 1,000 mg capsule 1,000 mg PO DAILY 04/28/19 Metformin HCl [Metformin HCl ER] 500 mg PO BID 05/13/19 cholecalciferol (vitamin D3) 50 mcg (2,000 unit) capsule 50 mcg PO DAILY 11/02/19 gabapentin 100 mg capsule 100 mg PO TID 07/02/20 Amlodipine Besylate [Norvasc] 5 mg PO DAILY 07/07/20 Metoprolol Tartrate [Lopressor (beta zahida)] 25 mg PO BID #1 tab 07/09/20 Oxycodone [Oxyir] 10 mg PO Q6H PRN PRN 7 Days #30 tab 07/09/20 levoFLOXacin tablet [Levaquin tablet] 750 mg PO QODAY@0600 #4 tab 07/09/20 The following prescriptions were given: levoFLOXacin tablet [Levaquin tablet] 750 mg PO QODAY@0600 #4 tab Transmission Status: Received by [facility] Metoprolol Tartrate [Lopressor (beta zahida)] 25 mg PO BID #1 tab Oxycodone [Oxyir] 10 mg PO Q6H PRN PRN 7 Days #30 tab PRN Reason: Pain Score 4-10 Transmission Status: Received by [facility] Primary Care Physician: Tre Marks MD [Primary Care Provider] - Test Results: Test results from this visit will be discussed in further detail at your follow-up appointment, if applicable. Please Follow Up With: Milly López DPM - Follow up sooner if needed. When: Thursday07/13/2020 [facility] 9:45 [facility]
--- NOTE | 2020-07-10 10:40 | PCM.DC ---
- Discharge Diagnoses Current Active Problems: Current Active and Chronic Problems (Last Reviewed 07/07/20 @ 17:[address] 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) Osteomyelitis (Acute) GI bleed (Acute) Type 2 diabetes mellitus (Chronic) Presence of stent in coronary artery (Chronic ~07/04/11) PCI/stent to LAD 2007; PCI/GUDELIA to instent restenosis of the LAD 07/04/11 Essential hypertension (Chronic) Atherosclerotic heart disease of [place] coronary artery without angina pectoris (Chronic) PAD (peripheral artery disease) (Chronic) Peripheral arterial occlusive disease (Chronic) Reason(s) for Visit for Discharge Instructions: Left toe osteomyelitis You will use the following diet at home:: Calorie/Carbohydrate Controlled (specify 1200, 1400, etc) - 1800 calories, Cardiac Your food should be the consistency of: Regular Your liquids should be the consistency of: Regular/Thin Discharge Activity: Return to Normal Activity Weight Bearing Status: Partial weight bearing - Left foot: No weight on toes or ball of foot, ok to put weight down on heel only for transitions and very short distances. Call your doctor if your incision/area has: Continuous Slow Oozing, Sudden Increased Bleeding, Increased Redness, Foul Smelling Discharge Call your doctor if you observe: Fever of 101 or Higher, Coldness, Increased Pain, Uncontrolled pain Cleanse incision/area with: Keep Dressing Clean & Dry - Left foot dressing: Keep clean, dry and intact until you follow up with Dr. López on Thursday. If there is a problem with the dressing please call [facility] as soon as possible. Allergies/Adverse Reactions: Allergies pravastatin Adverse Reaction (Severe, Verified 07/07/20 13:09) myalgias Sulfa (Sulfonamide Antibiotics) Adverse Reaction (Mild, Verified 07/07/20 13:09) stomach upset atorvastatin Adverse Reaction (Verified 07/07/20 13:09) myalgias Medications to take at Discharge Aspirin [Aspirin, Baby] 81 mg PO QHS 06/07/16 Clopidogrel Bisulfate [Plavix] 75 mg PO DAILY 06/07/16 coenzyme Q10 10 mg capsule 10 mg PO DAILY 01/11/19 nitroglycerin 0.4 mg sublingual tablet 0.4 mg SUBLINGUAL Q5-15M 01/11/19 multivitamin 1 tab PO DAILY 04/28/19 omega-3 fatty acids 1,000 mg capsule 1,000 mg PO DAILY 04/28/19 Metformin HCl [Metformin HCl ER] 500 mg PO BID 05/13/19 cholecalciferol (vitamin D3) 50 mcg (2,000 unit) capsule 50 mcg PO DAILY 11/02/19 gabapentin 100 mg capsule 100 mg PO TID 07/02/20 Amlodipine Besylate [Norvasc] 5 mg PO DAILY 07/07/20 Metoprolol Tartrate [Lopressor (beta zahida)] 25 mg PO BID #1 tab 07/09/20 Oxycodone [Oxyir] 10 mg PO Q6H PRN PRN 7 Days #30 tab 07/09/20 levoFLOXacin tablet [Levaquin tablet] 750 mg PO QODAY@0600 #4 tab 07/09/20 The following prescriptions were given: levoFLOXacin tablet [Levaquin tablet] 750 mg PO QODAY@0600 #4 tab Transmission Status: Received by [facility] Metoprolol Tartrate [Lopressor (beta zahida)] 25 mg PO BID #1 tab Oxycodone [Oxyir] 10 mg PO Q6H PRN PRN 7 Days #30 tab PRN Reason: Pain Score 4-10 Transmission Status: Received by [facility] Primary Care Physician: Tre Marks MD [Primary Care Provider] - Please follow up with your Primary Care Physician in: within 1-2 weeks Test Results: Test results from this visit will be discussed in further detail at your follow-up appointment, if applicable. Please Follow Up With: Milly López DPM - Follow up sooner if needed. When: Thursday07/13/2020 at 9:45 am [facility] Proposed Discharge Date: 07/10/20
--- NOTE | 2020-07-10 10:42 | DS.PCM_ITS ---
Discharge Date and Diagnosis - Problem List Patient Problems: Active and Suspected Problems (Last Reviewed 07/07/20 @ 17:[address] Cathie Das DO) Osteomyelitis (Acute) GI bleed (Acute) Date of Admission: 07/07/20 Date of Discharge: 07/10/20 - Primary Discharge Diagnosis Acute Problems: Active Problems (Last Reviewed 07/07/20 @ 17:[address] Cathie Das DO) Osteomyelitis (Acute) of the left fourth toe Gangrene of the left fourth toe GI bleed (Acute), likely secondary to hemorrhoids - Secondary Discharge Diagnosis Chronic Problems: Chronic Problems (Last Reviewed 07/07/20 @ 17:[address] 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 Peripheral arterial occlusive disease (Chronic) Hospital Course and Treatment Imaging Results: Clinical Impression(s) from Imaging Studies Foot X-Ray 07/07/20 13:30 IMPRESSION: No visualized soft tissue injury allowing for the technique. There is mild soft tissue edema about the distal foot. No definitive acute bony erosion. Electronically Signed: Akiko Johnston MD at 14:50 EST Tel , Service support , Foot X-Ray 07/08/20 10:53 IMPRESSION: Amputation of the fourth digit without demonstrated complication. Electronically Signed: Jose Salinas MD at 8:32 EST Tel , Service support , Consultations 07/09/20 17:14 Consult: Onc/Wound/claims representative Routine Comment: left foot wounds Reason for Consult:: left foot wounds Comments:: left foot wounds Podiatry Operations: - - mputation left fourth digit. Debridement of ulcerations first and fifth digit left foot on 07/08/19 Procedures: None Summary of Care Provided: The patient is a 84 year old F with past medical history of type II DM, PAD, who follows with podiatry in the outpatient. Patient was admitted with left fourth digit ulceration that had been worsening. She was recently seen vascular surgery and her peripheral artery disease was optimized. Patient was recently started on gabapentin by her primary care doctor to control pain. She was seen in the wound center and started on clindamycin. Her wound cultures had grown Pseudomonas. Patient had followed up in the wound center and asked to come to the hospital. There was concern for gangrene of the left fourth toe. And also complained about bright red bleeding seen on the morning of admission. She has history of hemorrhoids and has had hemorrhoidectomy. On admission, her vitals were stable. Her white cell count was 11.5, ESR was 61. Her CRP was 60.7. An MRI done on 07/04/20 showed cortical cystitis of the fifth middle and distal phalanges without jessica osteomyelitis. Cortical cystitis and osteomyelitis of the fourth proximal and middle phalanges. She underwent amputation of the left fourth digit with debridement of ulceration under the first and fifth digits of the left foot. Patient was initially on IV Levaquin. Continues to do well. No rectal bleeding was seen during this hospital stay. Her H&H were stable. Patient was discharged home on Levaquin and will follow up with podiatry in the outpatient. She was counseled on a good bowel regimen. She was given signed prescriptions for wheeled walker and bedside commode. Patient Problems: Active and Suspected Problems (Last Reviewed 07/07/20 @ 17:[address] Cathie Das DO) Osteomyelitis (Acute) GI bleed (Acute) Subjective: On the day of discharge, patient was seen and examined. Denied any new complaints. No more rectal bleeding. She has constipation for couple of days. She was eager to be discharged to go home and try prune juice and other [id number] medications. Objective: Physical exam: General: Alert, Oriented x3, Cooperative, No apparent distress, Well developed, Well nourished HEENT: Atraumatic, PERRLA, EOMI, Normocephalic Oral: Moist Mucosa Neck: Supple, No JVD, Trachea Midline, Thyroid Normal Size and Texture Lungs: Clear to auscultation, Normal air movement, No rhonchi, No wheeze, No rales Cardiovascular: Regular rate, Regular Rhythm, Normal S1, Normal S2, No murmurs, PMI Normal, No rub noted, No Gallop Abdomen: Bowel Sounds Present, Soft, Non Tender, Non-Distended Extremities: No clubbing, No cyanosis, Capillary Refill Less than 3 Seconds Neurological: Cranial nerves II-XII grossly intact, Neuro grossly intact, Sensory exam intact to light touch and pain, Coordination normal Psych/Mental Status: Normal Affect, Appropriate, Alert and oriented to time, place, person, mood and affect - Physical Exam Vitals/I&O's: Vital Signs Temp Pulse Resp BP Pulse Ox 99.1 F 73 16 94/45 L 95 07/10/20 08:42 07/10/20 08:42 07/10/20 08:42 07/10/20 08:42 07/10/20 08:42 Oxygen Delivery Method Room Air Weight: 62.6 kg Body Mass Index (BMI) 23.6 Intake and Output for Last 24 Hours 07/08/20 07/09/20 07/10/20 23:59 23:59 23:59 Intake Total 2200 / 2200 1966.33 / 2086.33 470 / 470 Output Total 1400 / 1400 825 / 1125 900 / 900 Balance 800 / 800 1141.33 / 961.33 -430 / -430 Microbiology Past 72 Hours 07/08/20 Unknown Bone - Left Foot Gram Stain - Final 07/08/20 Unknown Bone - Left Foot Wound Culture - Preliminary Gram negative carlos 07/08/20 Unknown Bone - Left Foot Anaerobic Culture - Preliminary No growth in 48 hours. 07/08/20 Unknown Tissue - Left Foot Gram Stain - Final 07/08/20 Unknown Tissue - Left Foot Wound Culture - Preliminary Gram negative carlos Gram positive organism 07/08/20 Unknown Tissue - Left Foot Anaerobic Culture - Preliminary Checking for anaerobes, further studies to follow. 07/07/20 13:55 Blood Culture (Wb) - Anticubital Right Blood Culture - Preliminary No growth in 48 hours. 07/07/20 13:10 Blood Culture (Wb) - Anticubital Left Blood Culture - Preliminary No growth in 48 hours. 07/07/20 21:15 Mucosa - Nose SARS-CoV-2 Antigen (Rapid) - Final 07/07/20 14:20 Stool Stool Occult Blood ([place]) - Final Occult Blood Positive Laboratory Results 07/09/20 11:21: POC Glucose 204 H 07/09/20 16:24: POC Glucose 108 07/09/20 20:52: POC Glucose 158 H 07/10/20 06:38: POC Glucose 106 Current Medications Acetaminophen (Acetaminophen 325 Mg Tablet) 650 mg PO Q6H PRN PRN PRN Reason: Pain Score 1-10/Temp > 100.7 F Last Admin: 07/10/20 01:56 Dose: 650 mg Documented by: Al Hydroxide/Mg Hydroxide (Mag Hydrox/Al Hydrox/Simeth 30 Ml Udc) 30 ml PO Q6H PRN PRN PRN Reason: Gastric Burning Albuterol Sulfate (Albuterol 2.5 Mg/3 Ml Vial.Neb.) 2.5 mg INHALATION Q2H PRN PRN PRN Reason: Shortness of Breath/Wheezing Amlodipine Besylate (Amlodipine 5 Mg Tablet) 5 mg PO DAILY [facility] Last Admin: 07/09/20 09:44 Dose: 5 mg Documented by: Aspirin (Aspirin 81 Mg Tab.Chew) 81 mg PO QHS [facility] Last Admin: 07/09/20 20:48 Dose: 81 mg Documented by: Enoxaparin Sodium (Enoxaparin 40 Mg/0.4 Ml Syringe) 40 mg SC DAILY [facility] Last Admin: 07/09/20 09:44 Dose: 40 mg Documented by: Gabapentin (Gabapentin 100 Mg Capsule) 100 mg PO TIDCM [facility] Last Admin: 07/10/20 08:49 Dose: 100 mg Documented by: Hydralazine HCl (Hydralazine 20 Mg/Ml Vial) 10 mg IV Q6H PRN PRN PRN Reason: SBP > 160 Sodium Chloride () 1,000 mls @ 70 mls/hr IV .[id number] [facility] Last Admin: 07/09/20 17:25 Dose: 70 mls/hr Documented by: Insulin Human Lispro (Insulin Lispro 100 Unit/Ml Insuln.Pen) 0 unit SC TIDAC [facility]; Protocol Last Admin: 07/10/20 06:39 Dose: Not Given Documented by: Levofloxacin (Levofloxacin 750 Mg Tablet) 750 mg PO QODAY@0600 [facility] Last Admin: 07/09/20 06:18 Dose: 750 mg Documented by: Metoprolol Tartrate (Metoprolol Tartrate 25 Mg Tablet) 25 mg PO BID [facility] Last Admin: 07/09/20 20:48 Dose: 25 mg Documented by: Morphine Sulfate (Morphine 4 Mg/Ml Syringe) 2 - 4 mg IV Q6H PRN PRN PRN Reason: Pain Score 6-10 Morphine Sulfate (Morphine 2 Mg/Ml Syringe) 2 - 4 mg IV Q6H PRN PRN PRN Reason: Pain Score 6-10 Last Admin: 07/09/20 20:44 Dose: 2 mg Documented by: Multivitamins ([facility]ivitamins,Therapeutic Tablet) [facility] Last Admin: 07/10/20 08:49 Dose: 1 tablet Documented by: Nitroglycerin (Nitroglycerin (Inpatient Use) 0.4 Mg Tab.Subl) 0.4 mg SUBLINGUAL Q5M PRN PRN Reason: .CHEST PAIN Ondansetron HCl (Ondansetron 4 Mg/2 Ml Vial) 4 mg IV Q8H PRN PRN PRN Reason: NAUSEA/VOMITING Last Admin: 07/08/20 23:55 Dose: 4 mg Documented by: Oxycodone HCl (Oxycodone 5 Mg Tablet) 10 mg PO Q4H PRN PRN PRN Reason: Pain Score 4-10 Last Admin: 07/10/20 06:41 Dose: 10 mg Documented by: Senna/Docusate Sodium (Senna/Docusate Sodium 1 Tablet) 2 tablet PO BID PRN PRN PRN Reason: Constipation Sodium Chloride (0.9% Saline Lock 10 Ml Syringe) 10 - 40 ml IV UD PRN PRN Reason: SALINE FLUSH Last Admin: 07/09/20 20:44 Dose: 10 ml Documented by: Discharge Diet: Low fat/ Low Cholesterol, 2000 mg Sodium Diet Discharge Activity: Return to Normal Activity Weight Bearing Status: Partial weight bearing - Left foot: No weight on toes or ball of foot, ok to put weight down on heel only for transitions and very short distances. Call your doctor if your incision/area has: Continuous Slow Oozing, Sudden Increased Bleeding, Increased Redness, Foul Smelling Discharge Call your doctor if you observe: Fever of 101 or Higher, Coldness, Increased Pain, Uncontrolled pain Cleanse incision/area with: Keep Dressing Clean & Dry - Left foot dressing: Keep clean, dry and intact until you follow up with Dr. López on Thursday. If there is a problem with the dressing please call [facility] as soon as possible. Home Medications: Medications to take at Discharge Aspirin [Aspirin, Baby] 81 mg PO QHS 06/07/16 Clopidogrel Bisulfate [Plavix] 75 mg PO DAILY 06/07/16 coenzyme Q10 10 mg capsule 10 mg PO DAILY 01/11/19 nitroglycerin 0.4 mg sublingual tablet 0.4 mg SUBLINGUAL Q5-15M 01/11/19 multivitamin 1 tab PO DAILY 04/28/19 omega-3 fatty acids 1,000 mg capsule 1,000 mg PO DAILY 04/28/19 Metformin HCl [Metformin HCl ER] 500 mg PO BID 05/13/19 cholecalciferol (vitamin D3) 50 mcg (2,000 unit) capsule 50 mcg PO DAILY 10/23 gabapentin 100 mg capsule 100 mg PO TID 07/02/20 Amlodipine Besylate [Norvasc] 5 mg PO DAILY 07/07/20 Metoprolol Tartrate [Lopressor (beta zahida)] 25 mg PO BID #1 tab 07/09/20 Oxycodone [Oxyir] 10 mg PO Q6H PRN PRN 7 Days #30 tab 07/09/20 levoFLOXacin tablet [Levaquin tablet] 750 mg PO QODAY@0600 #4 tab 07/09/20 Following Prescriptions Were Given to Patient: levoFLOXacin tablet [Levaquin tablet] 750 mg PO QODAY@0600 #4 tab Transmission Status: Received by [facility] Metoprolol Tartrate [Lopressor (beta zahida)] 25 mg PO BID #1 tab Oxycodone [Oxyir] 10 mg PO Q6H PRN PRN 7 Days #30 tab PRN Reason: Pain Score 4-10 Transmission Status: Received by [facility] Primary Care Physician: Tre Marks MD [Primary Care Provider] - Please follow up with your Primary Care Physician in: within 1-2 weeks Please Follow Up With: Milly López DPM - Follow up sooner if needed. When: Thursday07/13/2020 at 9:45 am at [facility] Disposition: Home with Home Health Minutes spent on discharge:: 40 Patient Condition:: Stable Medical Necessity - Tobacco Use Smoking Status: Former smoker Tobacco Use: - Meaningful Use Info Meaningful Use Diagnoses (Choose all that apply): None applicable Inpatient E&M: 97175 Disch Hosp
[2020-07-10 11:10] VITALS: PULSE 73
[2020-07-10] MEDS: Metoprolol Tartrate 25 MG Tablet PO (11:10)
[2020-07-10] MEDS: amLODIPine 5 MG Tablet PO (11:10)
[2020-07-10] MEDS: Enoxaparin 40 MG/0.4 ML Syringe SC (11:10)
--- NOTE | 2020-07-10 11:14 | PCM.PROGNOTE ---
Patient Problems: Active and Suspected Problems (Last Reviewed 07/07/20 @ 17:[address] Cathie Das, DO) Osteomyelitis (Acute) GI bleed (Acute) Subjective: Patient doing well today, no complaints, ready to go home. No complaints of fever, chills, nausea or vomiting. - Physical Exam Vitals/I&O's: Vital Signs Temp Pulse Resp BP Pulse Ox 99.1 F 73 16 94/45 L 95 07/10/20 08:42 07/10/20 11:10 07/10/20 08:42 07/10/20 08:42 07/10/20 08:42 Oxygen Delivery Method Room Air Weight: 62.6 kg Body Mass Index (BMI) 23.6 Intake and Output for Last 24 Hours 07/08/20 07/09/20 07/10/20 23:59 23:59 23:59 Intake Total 2200 / 2200 1966.33 / 2086.33 470 / 470 Output Total 1400 / 1400 825 / 1125 900 / 900 Balance 800 / 800 1141.33 / 961.33 -430 / -430 General: Alert, Oriented x3, Cooperative, No apparent distress Extremities: Capillary Refill Less than 3 Seconds, No Calf Tenderness, - - Left foot with continued improvement, healing well at this time. Microbiology Past 72 Hours 07/08/20 Unknown Bone - Left Foot Gram Stain - Final 07/08/20 Unknown Bone - Left Foot Wound Culture - Preliminary Gram negative carlos 07/08/20 Unknown Bone - Left Foot Anaerobic Culture - Preliminary No growth in 48 hours. 07/08/20 Unknown Tissue - Left Foot Gram Stain - Final 07/08/20 Unknown Tissue - Left Foot Wound Culture - Preliminary Gram negative carlos Gram positive organism 07/08/20 Unknown Tissue - Left Foot Anaerobic Culture - Preliminary Checking for anaerobes, further studies to follow. 07/07/20 13:55 Blood Culture (Wb) - Anticubital Right Blood Culture - Preliminary No growth in 48 hours. 07/07/20 13:10 Blood Culture (Wb) - Anticubital Left Blood Culture - Preliminary No growth in 48 hours. 07/07/20 21:15 Mucosa - Nose SARS-CoV-2 Antigen (Rapid) - Final 07/07/20 14:20 Stool Stool Occult Blood ([place]) - Final Occult Blood Positive Laboratory Results 07/09/20 11:21: POC Glucose 204 H 07/09/20 16:24: POC Glucose 108 07/09/20 20:52: POC Glucose 158 H 07/10/20 06:38: POC Glucose 106 Current Medications Acetaminophen (Acetaminophen 325 Mg Tablet) 650 mg PO Q6H PRN PRN PRN Reason: Pain Score 1-10/Temp > 100.7 F Last Admin: 07/10/20 01:56 Dose: 650 mg Documented by: Al Hydroxide/Mg Hydroxide (Mag Hydrox/Al Hydrox/Simeth 30 Ml Udc) 30 ml PO Q6H PRN PRN PRN Reason: Gastric Burning Albuterol Sulfate (Albuterol 2.5 Mg/3 Ml Vial.Neb.) 2.5 mg INHALATION Q2H PRN PRN PRN Reason: Shortness of Breath/Wheezing Amlodipine Besylate (Amlodipine 5 Mg Tablet) 5 mg PO DAILY [facility] Last Admin: 07/10/20 11:10 Dose: 5 mg Documented by: Aspirin (Aspirin 81 Mg Tab.Chew) 81 mg PO QHS [facility] Last Admin: 07/09/20 20:48 Dose: 81 mg Documented by: Enoxaparin Sodium (Enoxaparin 40 Mg/0.4 Ml Syringe) 40 mg SC DAILY [facility] Last Admin: 07/10/20 11:10 Dose: 40 mg Documented by: Gabapentin (Gabapentin 100 Mg Capsule) 100 mg PO TIDCM [facility] Last Admin: 07/10/20 08:49 Dose: 100 mg Documented by: Hydralazine HCl (Hydralazine 20 Mg/Ml Vial) 10 mg IV Q6H PRN PRN PRN Reason: SBP > 160 Sodium Chloride () 1,000 mls @ 70 mls/hr IV .[id number] [facility] Last Admin: 07/09/20 17:25 Dose: 70 mls/hr Documented by: Insulin Human Lispro (Insulin Lispro 100 Unit/Ml Insuln.Pen) 0 unit SC TIDAC [facility]; Protocol Last Admin: 07/10/20 11:09 Dose: Not Given Documented by: Levofloxacin (Levofloxacin 750 Mg Tablet) 750 mg PO QODAY@0600 [facility] Last Admin: 07/09/20 06:18 Dose: 750 mg Documented by: Metoprolol Tartrate (Metoprolol Tartrate 25 Mg Tablet) 25 mg PO BID [facility] Last Admin: 07/10/20 11:10 Dose: 25 mg Documented by: Morphine Sulfate (Morphine 4 Mg/Ml Syringe) 2 - 4 mg IV Q6H PRN PRN PRN Reason: Pain Score 6-10 Morphine Sulfate (Morphine 2 Mg/Ml Syringe) 2 - 4 mg IV Q6H PRN PRN PRN Reason: Pain Score 6-10 Last Admin: 07/09/20 20:44 Dose: 2 mg Documented by: Multivitamins (Multivitamins,Therapeutic Tablet) 1 tablet PO DAILYCM [facility] Last Admin: 07/10/20 08:49 Dose: 1 tablet Documented by: Nitroglycerin (Nitroglycerin (Inpatient Use) 0.4 Mg Tab.Subl) 0.4 mg SUBLINGUAL Q5M PRN PRN Reason: .CHEST PAIN Ondansetron HCl (Ondansetron 4 Mg/2 Ml Vial) 4 mg IV Q8H PRN PRN PRN Reason: NAUSEA/VOMITING Last Admin: 07/08/20 23:55 Dose: 4 mg Documented by: Oxycodone HCl (Oxycodone 5 Mg Tablet) 10 mg PO Q4H PRN PRN PRN Reason: Pain Score 4-10 Last Admin: 07/10/20 06:41 Dose: 10 mg Documented by: Senna/Docusate Sodium (Senna/Docusate Sodium 1 Tablet) 2 tablet PO BID PRN PRN PRN Reason: Constipation Sodium Chloride (0.9% Saline Lock 10 Ml Syringe) 10 - 40 ml IV UD PRN PRN Reason: SALINE FLUSH Last Admin: 07/09/20 20:44 Dose: 10 ml Documented by: Medical Necessity - Tobacco Use Smoking Status: Former smoker Tobacco Use: - Assessment/Plan All Active Problems (Last Reviewed 07/07/20 @ 17:[address] Cathie Das DO) Osteomyelitis (Acute) GI bleed (Acute) Left foot fourth digit gangrene and osteomyelitis s/p amputation on 07/08/2020 Left foot ulcerations first and fourth digit and fifth digit s/p debridement on 07/08/2020 Left foot cellulitis - much improved Peripheral vascular disease s/p intervention with Dr. Nicholson Diabetes with neuropathy GI bleed Patient seen and examined bedside. Left foot with significant improvement and doing well at this time. Leave dressing clean, dry and intact. Partial weightbearing left foot - no weightbearing to left forefoot, but ok for weightbearing on left heel with assistance of surgical shoe and regular walker. Limit activity on left foot as much as possible. Reviewed culture results - finals pending. Patient has been switched to oral Levaquin. Patient follows with Dr. Nicholson for PAD - there is no evidence of acute ischemia. D/c home today w/ daughter - patient to follow up with Dr. López in clinic on Thursday, sooner if needed.
--- NOTE | 2020-07-10 11:20 | CASEMGMT ---
IKE MCKEON in to discuss HHC and DME with patient and daughter. Patient and daughter review HHC and DME list. Patient prefers [facility] for HHC and [facility] for DME. RN LINDA sent referral to [facility] and they are able to accept the patient. Script received for FWW and referral made to [facility]. IKE MCKEON arranged for walker to be delivered to patient's room prior to discharge. IKE MCKEON also received script for BSC and given to daughter to fill if needed. Patient had no further questions or concerns at this time.
[2020-07-10 11:30] LABS: Bedside Glucose 107 mg/dL (70-110)
[2020-07-10 13:18] VITALS: BP 134/45; PULSE 69; RESP 16; TEMP 37.1; O2SAT 97
--- NOTE | 2020-07-11 16:21 | CASEMGMT ---
IKE MCKEON Discharge Follow-up Phone Call: LACJung: 11 Strata: 3 Call Date: 07/11/20 Discharge Date: 07/10/20 Time of Call: [id number] Duration: 4 min Admitting Diagnosis: LE wounds and LGIB IKE MCKEON completed follow-up phone call after recent hospitalization. Patient states she is doing well and her pain is under control. Patient had no questions or concerns regarding discharge instructions. Patient was able to fill prescriptions without any issues. Patient states that [facility] as been in touch and will be out to see her tomorrow. Patient has follow-up appt with doweling machine operator on Thursday. Patient had no further questions or concerns at this time.
== END 2020-07-10 13:40 | disposition home or self-care (01) | DRG 256 ==
LOC: ED 15:23 → MS3 15:43
PROVIDERS: Anesthesiology; Internal Medicine; Podiatrist Foot & Ankle Surgery; Admitting Provider Internal Medicine; Emergency Provider Emergency Medicine; PCP Family Medicine; Visit Provider Internal Medicine
PROC: 0Y6W0Z0 Detachment at Left 4th Toe, Complete, Open Approach (ICD-10-PCS; principal; 2020-07-08 10:00)
DX: E11.52 Type 2 diabetes mellitus with diabetic peripheral angiopathy with gangrene (principal); M86.172 Other acute osteomyelitis, left ankle and foot; L03.116 Cellulitis of left lower limb; E87.1 Hypo-osmolality and hyponatremia; K92.1 Melena; L97.522 Non-pressure chronic ulcer of other part of left foot with fat layer exposed; E11.621 Type 2 diabetes mellitus with foot ulcer; E11.40 Type 2 diabetes mellitus with diabetic neuropathy, unspecified; I25.10 Atherosclerotic heart disease of native coronary artery without angina pectoris; B96.5 Pseudomonas (aeruginosa) (mallei) (pseudomallei) as the cause of diseases classified elsewhere; E11.69 Type 2 diabetes mellitus with other specified complication; K64.9 Unspecified hemorrhoids; I10 Essential (primary) hypertension; I45.10 Unspecified right bundle-branch block; Z95.5 Presence of coronary angioplasty implant and graft; Z79.02 Long term (current) use of antithrombotics/antiplatelets; Z79.899 Other long term (current) drug therapy; Z80.0 Family history of malignant neoplasm of digestive organs; Z83.3 Family history of diabetes mellitus; Z86.73 Personal history of transient ischemic attack (TIA), and cerebral infarction without residual deficits; Z87.891 Personal history of nicotine dependence; Z90.710 Acquired absence of both cervix and uterus; Z88.8 Allergy status to other drugs, medicaments and biological substances; I65.23 Occlusion and stenosis of bilateral carotid arteries; E78.5 Hyperlipidemia, unspecified
CPT/HCPCS: 36415; 73630; 73718; 80048; 80053; 82274; 82962; 83036; 83605; 83735; 84100; 85014; 85018; 85025; 85610; 85652; 85730; 86140; 87040; 87070; 87075; 87077; 87186; 87205; 87426; 88305; 88311; 93005; 97110; 97116; 97162; 97166; 97530; 97535; 99285; J7030; A4216; J2405

== ENCOUNTER 2020-07-17 10:15 | Outpatient (RCR) | payer MEDICARE, SELFPAY ==
[2020-06-25 00:36] VITALS: BP 127/104; PULSE 68; RESP 16; TEMP 35.8; BMI 24.2
[2020-06-26 10:12] VITALS: BP 187/67; PULSE 78; RESP 20; TEMP 36.9; BMI 24.2
--- NOTE | 2020-06-26 10:58 | PN.PCM_ITS ---
(1) Non-pressure chronic ulcer of other part of left foot with fat layer exposed Status: Chronic Code(s): L97.522 - Non-pressure chronic ulcer of other part of left foot with fat layer exposed (2) Type 2 diabetes mellitus Status: Chronic Code(s): E11.9 - Type 2 diabetes mellitus without complications (3) PAD (peripheral artery disease) Status: Chronic Code(s): I73.9 - Peripheral vascular disease, unspecified (4) Peripheral arterial occlusive disease Status: Chronic Code(s): I77.9 - Disorder of arteries and arterioles, unspecified Type of Wound Date of Service: 06/26/20 Chief Complaint: Left foot first digit ulceration. Left foot fifth digit ulceration. PVD, PAD History of Wound: Patient is referral [facility] 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 Patient is to follow-up with Dr. Nicholson with procedure for this. Patient relates no prior other issues with her feet or history of ulcerations with. She does admit to pain in her left toes since her surgery with Dr. Nicholson. Patient is diabetic as well but states is very well controlled averaging blood sugar in the low 100s. Patient has been putting Bactroban and Band-Aid on the wounds prior. Patient denies any trauma or rubbing to start the wounds. Patient had intervention done by Dr. Nicholson on 06/12/2020. Since the patient has complaints of post procedure reperfusion pain. She states it is worse at night and she has some relief with dangling of the foot. Patient also noted to have new ulceratio n to the lateral aspect of her left fourth digit. She also has a fissure wound to the left posterior lateral heel which is causing her pain as well. She has had some increase in redness and swelling noted as well. Patient saw Dr. Tenorio this morning to June 26, 2020 and patient states she he is going to prescribe her some pain medication Progress of Wound: There is worsening of the wounds with increase in pain and redness and edema Subjective: Patient seen and examined bedside. Patient denies any new pedal complaints. Patient denies any nausea, fever, chills, chest pain, shortness of breath, cough, streaking, purulence, vomiting. Patient complains of persistent pain to her left lower extremity. Patient has redness and swelling noted as well. Patient states that the pain is better when dangling her foot - Physical Exam Vital Signs Temp Pulse Resp BP 98.4 F 78 20 H 187/67 H 06/26/20 10:12 06/26/20 10:12 06/26/20 10:12 06/26/20 10:12 General: Alert, Oriented x3 HEENT: Atraumatic Extremities: No clubbing, No cyanosis, Capillary Refill Less than 3 Seconds, No Calf Tenderness, Diminished Peripheral Pulses, Edema - Left lower extremity Skin: Ulcer/ Wound - Left hallux, fourth, fifth fifth toes. No malodor or purulent drainage noted. Surrounding erythema and edema to lower extremity, skin is atrophic and hairless. Pain to palpation. Fibrotic base. Fourth lateral toe is the worst, - - Left lateral heel fissured callus ulceration with pain noted. Granular fibrotic base. Pain to palpation. Mild erythema and edema noted. Wound Measurements and Assessment WC - Nurse 1 - General Ulcer Measurement Start: 06/26/20 10:12 Freq: Status: Active Protocol: Activity Type Activity Date Activity User E-Sign Co-Sign Detail Recorded Client Recorded Date Recorded By Document 06/26/20 10:12 DL [id number] 06/26/20 10:24 DL 06/26/20 10:12 Wound Center Nurse 1 [Ulcer Assessment] 4-left heel fissure -Current Size (cm) - Length 0.3 -Current Size (cm) - Width 0.7 -Current Size (cm) - Depth 0.1 -Total Square Cm 0.21 -Photo Taken No -Exudate Amt Small -Exudate Type Serosanguineous -Wound Margin Distinct, Outline Attached -Granulation Amt None Present (0 %) -Necrosis Amt Small (1-33%) -Necrotic Tissue Type Adherent Slough -Structure Exposed N/A -Texture (Dot-wound Skin Appearance) Scarring -Moisture (Dot-wound Skin Appearance Dry/Scaly ) -Color (Dot-wound Skin Appearance) No Abnormality -Temperature (Dot-wound Skin No Abnormality Appearance) (Pt Warm) -Tenderness on Palpation (Dot-wound No Skin Appearance) -Ulcer Cleansing Rinsed/ Irrigated with Saline -Foul Odor after Cleansing No -Anesthetic Used 4% Lidocaine Solution #3 4th lateral toe -Current Size (cm) - Length 1 -Current Size (cm) - Width 1 -Current Size (cm) - Depth 0.1 -Total Square Cm 1 -Photo Taken No -Exudate Amt Medium -Exudate Type Serosanguineous -Wound Margin Distinct, Outline Attached -Granulation Amt None Present (0 %) -Necrosis Amt Large (67-100%) -Necrotic Tissue Type Adherent Slough -Structure Exposed N/A -Texture (Dot-wound Skin Appearance) Localized Edema ,Scarring -Moisture (Dot-wound Skin Appearance No Abnormality ) -Color (Dot-wound Skin Appearance) Erythema -Temperature (Dot-wound Skin No Abnormality Appearance) (Pt Warm) -Tenderness on Palpation (Dot-wound No Skin Appearance) -Ulcer Cleansing Rinsed/ Irrigated with Saline -Foul Odor after Cleansing No -Anesthetic Used 4% Lidocaine Solution #2 L 5th toe -Current Size (cm) - Length 0.7 -Current Size (cm) - Width 0.3 -Current Size (cm) - Depth 0.1 -Total Square Cm 0.21 -Photo Taken No -Exudate Amt Medium -Exudate Type Serosanguineous -Wound Margin Distinct, Outline Attached -Granulation Amt Small (1-33%) -Granulation Quality [place] -Necrosis Amt Large (67-100%) -Necrotic Tissue Type Adherent Slough -Structure Exposed N/A -Texture (Dot-wound Skin Appearance) Localized Edema ,Scarring -Moisture (Dot-wound Skin Appearance No Abnormality ) -Color (Dot-wound Skin Appearance) Erythema -Temperature (Dot-wound Skin No Abnormality Appearance) (Pt Warm) -Tenderness on Palpation (Dot-wound No Skin Appearance) -Foul Odor after Cleansing No -Anesthetic Used 4% Lidocaine Solution #1 L Grt Toe -Current Size (cm) - Length 0.8 -Current Size (cm) - Width 0.5 -Current Size (cm) - Depth 0.1 -Total Square Cm 0.40 -Photo Taken No -Exudate Amt Small -Exudate Type Serosanguineous -Wound Margin Distinct, Outline Attached -Granulation Amt Small (1-33%) -Granulation Quality [place] -Necrosis Amt Large (67-100%) -Necrotic Tissue Type Adherent Slough -Structure Exposed N/A -Texture (Dot-wound Skin Appearance) Localized Edema ,Scarring -Moisture (Dot-wound Skin Appearance No Abnormality ) -Color (Dot-wound Skin Appearance) Erythema -Temperature (Dot-wound Skin No Abnormality Appearance) (Pt Warm) -Tenderness on Palpation (Dot-wound No Skin Appearance) -Ulcer Cleansing Rinsed/ Irrigated with Saline -Foul Odor after Cleansing No -Anesthetic Used 4% Lidocaine Solution WC - Nurse 2 - General Ulcer CM Notes Start: 06/26/20 10:12 Freq: Status: Active Protocol: Activity Type Activity Date Activity User E-Sign Co-Sign Detail Recorded Client Recorded Date Recorded By Document 06/26/20 10:42 RICHI [id number] 06/26/20 10:51 RICHI 06/26/20 10:42 Wound Center Nurse 2 [Procedure/Treatment] 4-left heel fissure -Time 10:43 -Correct Patient Yes -Correct Side, Site, Position Yes -Correct Procedure Yes -Procedure Performed Yes -Type of Procedure Debridement -Clinical Debridement Subcutaneous -Tissue Removed Subcutaneous -Post Debridement (cm) - Length 0.9 -Post Debridement (cm) - Width 0.2 -Post Debridement (cm) - Depth 0.2 -Total Square (Post) (cm) 0.18 -Area of Debridement (cm) - Length 0.9 -Area of Debridement (cm) - Width 0.2 -Total Square (Area) (cm) 0.18 -Tunneling No -Undermining/Tunneling No -Circular Undermining No -Wound/Ulcer Outcome Not Healed -Ulcer Cleansing Rinsed/ Irrigated with Saline -Foul Odor after Cleansing No -Bioengineered Tissue No -Bleeding Controlled with Pressure -Offloading Yes -Type of Offloading Surgical Shoe -Treatment Response Procedure Tolerated Well -Debridement - Subq, 1st 20sq cm Yes #3 4th lateral toe -Time 10:46 -Correct Patient Yes -Correct Side, Site, Position Yes -Correct Procedure Yes -Procedure Performed Yes -Type of Procedure Debridement -Clinical Debridement Subcutaneous -Tissue Removed Subcutaneous -Post Debridement (cm) - Length 1.2 -Post Debridement (cm) - Width 1 -Post Debridement (cm) - Depth 0.2 -Total Square (Post) (cm) 1.2 -Area of Debridement (cm) - Length 1.2 -Area of Debridement (cm) - Width 1 -Total Square (Area) (cm) 1.2 -Tunneling No -Undermining/Tunneling No -Circular Undermining No -Wound/Ulcer Outcome Not Healed -Ulcer Cleansing Rinsed/ Irrigated with Saline -Foul Odor after Cleansing No -Bioengineered Tissue No -Bleeding Controlled with Pressure -Offloading Yes -Type of Offloading Surgical Shoe -Treatment Response Procedure Tolerated Well -Debridement - Subq, 1st 20sq cm No #2 L 5th toe -Time 10:47 -Correct Patient Yes -Correct Side, Site, Position Yes -Correct Procedure Yes -Procedure Performed Yes -Type of Procedure Debridement -Clinical Debridement Subcutaneous -Tissue Removed Subcutaneous -Post Debridement (cm) - Length 0.9 -Post Debridement (cm) - Width 0.8 -Post Debridement (cm) - Depth 0.2 -Total Square (Post) (cm) 0.72 -Area of Debridement (cm) - Length 0.9 -Area of Debridement (cm) - Width 0.8 -Total Square (Area) (cm) 0.72 -Tunneling No -Undermining/Tunneling No -Circular Undermining No -Wound/Ulcer Outcome Not Healed -Ulcer Cleansing Rinsed/ Irrigated with Saline -Foul Odor after Cleansing No -Bioengineered Tissue No -Bleeding Controlled with Pressure -Offloading Yes -Type of Offloading Surgical Shoe -Treatment Response Procedure Tolerated Well -Debridement - Subq, 20sq cm No #1 L Grt Toe -Time 10:47 -Correct Patient Yes -Correct Side, Site, Position Yes -Correct Procedure Yes -Procedure Performed Yes -Type of Procedure Debridement -Clinical Debridement Subcutaneous -Tissue Removed Subcutaneous -Post Debridement (cm) - Length 1 -Post Debridement (cm) - Width 0.6 -Post Debridement (cm) - Depth 0.3 -Total Square (Post) (cm) 0.6 -Area of Debridement (cm) - Length 1 -Area of Debridement (cm) - Width 0.6 -Total Square (Area) (cm) 0.6 -Tunneling No -Undermining/Tunneling No -Circular Undermining No -Wound/Ulcer Outcome Not Healed -Ulcer Cleansing Rinsed/ Irrigated with Saline -Foul Odor after Cleansing No -Bioengineered Tissue No -Bleeding Controlled with Pressure -Offloading Yes -Type of Offloading Surgical Shoe -Treatment Response Procedure Tolerated Well -Debridement - Subq, 1st 20sq cm No [See Physician Procedure note for Specifics] Pain Scale: 0-10 Numeric [Pain] -Is Patient Pain Free? Yes Musculoskeletal: Tenderness - Left lower extremity Neurological: Sensory exam intact to light touch and pain Psych/Mental Status: Normal Affect, Appropriate Debridement Note Post-Debridement Measurements/Treatment WC - Nurse 2 - General Ulcer CM Notes Start: 06/26/20 10:12 Freq: Status: Active Protocol: Activity Type Activity Date Activity User E-Sign Co-Sign Detail Recorded Client Recorded Date Recorded By Document 06/26/20 10:42 RICHI [id number] 06/26/20 10:51 RICHI 06/26/20 10:42 Wound Center Nurse 2 4-left heel fissure -Time 10:43 -Correct Patient Yes -Correct Side, Site, Position Yes -Correct Procedure Yes -Procedure Performed Yes -Type of Procedure Debridement -Clinical Debridement Subcutaneous -Tissue Removed Subcutaneous -Post Debridement (cm) - Length 0.9 -Post Debridement (cm) - Width 0.2 -Post Debridement (cm) - Depth 0.2 -Total Square (Post) (cm) 0.18 -Area of Debridement (cm) - Length 0.9 -Area of Debridement (cm) - Width 0.2 -Total Square (Area) (cm) 0.18 -Tunneling No -Undermining/Tunneling No -Circular Undermining No -Wound/Ulcer Outcome Not Healed -Ulcer Cleansing Rinsed/ Irrigated with Saline -Foul Odor after Cleansing No -Bioengineered Tissue No -Bleeding Controlled with Pressure -Offloading Yes -Type of Offloading Surgical Shoe -Treatment Response Procedure Tolerated Well -Debridement - Subq, 1st 20sq cm Yes #3 4th lateral toe -Time 10:46 -Correct Patient Yes -Correct Side, Site, Position Yes -Correct Procedure Yes -Procedure Performed Yes -Type of Procedure Debridement -Clinical Debridement Subcutaneous -Tissue Removed Subcutaneous -Post Debridement (cm) - Length 1.2 -Post Debridement (cm) - Width 1 -Post Debridement (cm) - Depth 0.2 -Total Square (Post) (cm) 1.2 -Area of Debridement (cm) - Length 1.2 -Area of Debridement (cm) - Width 1 -Total Square (Area) (cm) 1.2 -Tunneling No -Undermining/Tunneling No -Circular Undermining No -Wound/Ulcer Outcome Not Healed -Ulcer Cleansing Rinsed/ Irrigated with Saline -Foul Odor after Cleansing No -Bioengineered Tissue No -Bleeding Controlled with Pressure -Offloading Yes -Type of Offloading Surgical Shoe -Treatment Response Procedure Tolerated Well -Debridement - Subq, 1st 20sq cm No #2 L 5th toe -Time 10:47 -Correct Patient Yes -Correct Side, Site, Position Yes -Correct Procedure Yes -Procedure Performed Yes -Type of Procedure Debridement -Clinical Debridement Subcutaneous -Tissue Removed Subcutaneous -Post Debridement (cm) - Length 0.9 -Post Debridement (cm) - Width 0.8 -Post Debridement (cm) - Depth 0.2 -Total Square (Post) (cm) 0.72 -Area of Debridement (cm) - Length 0.9 -Area of Debridement (cm) - Width 0.8 -Total Square (Area) (cm) 0.72 -Tunneling No -Undermining/Tunneling No -Circular Undermining No -Wound/Ulcer Outcome Not Healed -Ulcer Cleansing Rinsed/ Irrigated with Saline -Foul Odor after Cleansing No -Bioengineered Tissue No -Bleeding Controlled with Pressure -Offloading Yes -Type of Offloading Surgical Shoe -Treatment Response Procedure Tolerated Well -Debridement - Subq, 1st 20sq cm No #1 L Grt Toe -Time 10:47 -Correct Patient Yes -Correct Side, Site, Position Yes -Correct Procedure Yes -Procedure Performed Yes -Type of Procedure Debridement -Clinical Debridement Subcutaneous -Tissue Removed Subcutaneous -Post Debridement (cm) - Length 1 -Post Debridement (cm) - Width 0.6 -Post Debridement (cm) - Depth 0.3 -Total Square (Post) (cm) 0.6 -Area of Debridement (cm) - Length 1 -Area of Debridement (cm) - Width 0.6 -Total Square (Area) (cm) 0.6 -Tunneling No -Undermining/Tunneling No -Circular Undermining No -Wound/Ulcer Outcome Not Healed -Ulcer Cleansing Rinsed/ Irrigated with Saline -Foul Odor after Cleansing No -Bioengineered Tissue No -Bleeding Controlled with Pressure -Offloading Yes -Type of Offloading Surgical Shoe -Treatment Response Procedure Tolerated Well -Debridement - Subq, 1st 20sq cm No Pain Scale: 0-10 Numeric Is Patient Pain Free? Yes Wound debrided: Plantar hallux Laterality: Left Wound Grade/Stage: Luciano 1 Type of Debridement: Excisional debridement Anesthesia Used: 4% Lidocaine Solution Depth: in the subcutaneous layer Percentage of wound debrided: 100 Instrument Used: 3mm curette Tissue Removed: Tissue removed includes fibrous, devitalized, biofilm, and slough tissue Severity: Fat Layer Exposed Amount of bleeding with debridement: Mild Bleeding Controlled with: Pressure Patient tolerated procedure well - Additional Wound Wound debrided: Fourth lateral digit Laterality: Left Wound Grade/Stage: Luciano 1 Type of Debridement: Excisional debridement Anesthesia Used: 4% Lidocaine Solution Depth: in the subcutaneous layer Percentage of wound debrided: 100 Instrument Used: 3mm curette Tissue Removed: Tissue removed includes fibrous, devitalized, biofilm, and slough tissue Severity: Fat Layer Exposed Amount of bleeding with debridement: Mild Bleeding Controlled with: Pressure Patient tolerated procedure: Patient tolerated procedure well - Additional Wound Wound debrided: Lateral fifth digit Laterality: Left Wound Grade/Stage: Luciano 1 Type of Debridement: Excisional debridement Anesthesia Used: 4% Lidocaine Solution Depth: in the subcutaneous layer Percentage of wound debrided: 100 Instrument Used: 3mm curette Tissue Removed: Tissue removed includes fibrous, devitalized, biofilm, and slough tissue Severity: Fat Layer Exposed Amount of bleeding with debridement: Mild Bleeding Controlled with: Pressure Patient tolerated procedure: Patient tolerated procedure well - Additional Wound Wound debrided: Lateral plantar heel fissure Laterality: Left Wound Grade/Stage: Luciano 1 Type of Debridement: Excisional debridement Anesthesia Used: 4% Lidocaine Solution Depth: in the subcutaneous layer Percentage of wound debrided: 100 Instrument Used: 3mm curette Tissue Removed: Tissue removed includes fibrous, devitalized, biofilm, and slough tissue Severity: Fat Layer Exposed Amount of bleeding with debridement: Mild Bleeding Controlled with: Pressure Patient tolerated procedure: Patient tolerated procedure well Assessment/Plan Active Problems (Last Reviewed 04/28/19 @ 13:51 by Melody Mckeon) Non-pressure chronic ulcer of other part of left foot with fat layer exposed (Chronic) Type 2 diabetes mellitus (Chronic) PAD (peripheral artery disease) (Chronic) Peripheral arterial occlusive disease (Chronic) Assessment: Left first digit plantar medial ulcer. Left fifth digit lateral ulcer. Left lateral fourth digit ulcer. Left posterior lateral heel fissure ulcer. Cellulitis left lower extremity. Peripheral vascular disease status post intervention 06/12/[address] Nicholson. Diabetes Plan: Patient seen and examined. Patient is referral from Dr. Escudero's [facility] ulcerations first and fifth toes of left foot. Patient has peripheral vascular disease. Patient has been seeing Dr. Nicholson for this. Patient had intervention on 06/12/2020. Since then patient has had some reperfusion pain with swelling that is worse at night. This pain has persisted. Patient saw Dr. Tenorio on 06/26/2020 and he prescribed her a pain medication. Patient noted to have increased redness and swelling with pain with edges consistent with infection. A prescription for Augmentin was sent to patient's pharmacy on 06/26/2020. Patient noted to have a creatinine clearance of 43 on June 12, 2020. Patient has recent LEAS prior to intervention with Dr. Nicholson with left monophasic pulses with an JENY of 0.59 from the PT artery and a TBI of 0.12. On the right side the DP and PT are monophasic as well with an JENY of 0.53 on the PT artery and 0.75 to the DP artery and a TBI of 0.3. Left first toe, fourth toe, heel and fifth toe were sharply debrided with a curette without incident as noted in the clinical section after verbal consent was obtained. Sites were dressed with hydrogel. Patient to continue Santyl dressing as there is not much drainage with the infection. Reviewed proper wound care with patient. Discussed with the patient the importance of offloadi ng the sites with wide enough shoe gear if she is to be wearing shoes, proper diet, good blood sugar control. Patient also complains of pain in her toes to her left foot. Discussed with patient that this is probably a combination of her new blood flow from her intervention as well as some pain from the wounds themselves. Patient has some neuropathy which would decrease some of the feeling and thus pain from the wounds. Patient is to call Dr. Nicholson's office to schedule follow-up appointment as none has been scheduled since the angio. All questions were answered patient satisfaction. Discussed with the patient all concerning signs and symptoms to watch out for and to contact office if he either presents. Patient's follow-up in 1 weeks
[2020-07-03 09:30] VITALS: BP 124/51; PULSE 66; RESP 18; TEMP 36.5; BMI 24.2
--- NOTE | 2020-07-03 10:23 | PCM.PROGNOTE ---
Subjective: Patient seen and examined resting comfortably. Patient denies any new pedal complaints. Patient denies any nausea, fever, chills, chest pain, shortness of breath, cough, streaking, purulence, vomiting. - Physical Exam Vitals/I&O's: Vital Signs Temp Pulse Resp BP 97.7 F L 66 18 124/51 H 07/03/20 09:30 07/03/20 09:30 07/03/20 09:30 07/03/20 09:30 Oxygen Delivery Method Room Air Weight: 149 kg Body Mass Index (BMI) 24.2 General: Alert, Oriented x3 HEENT: Atraumatic Extremities: No clubbing, Capillary Refill Less than 3 Seconds, No Calf Tenderness, Cool - toes, especially left, Diminished Peripheral Pulses, Edema - left LE, Tenderness - toes 4/5 left foot particularly, - - some erythema and edema noted to left LE with pain Skin: Ulcer/ Wound - left plantar hallux, 5th lateral digit. No malodor, purulence, probing to bone, streaking. Skin is atrophic and hairless. Granular/fibrotic base with serosanguineous drainage after debridement. Cool to the touch, - - left 4th lateral toe. surrounding erythema and edema to lower extremity, probes to bone, skin is atrophic and hairless, macerated edges, necrotic/fibrotic base, cool to the touch Musculoskeletal: Tenderness - left toes Neurological: - - decreased light touch sensation Psych/Mental Status: Normal Affect, Appropriate Medical Necessity - Tobacco Use Smoking Status: Former smoker
--- NOTE | 2020-07-04 14:59 | PCM.WC.PN ---
(1) Non-pressure chronic ulcer of other part of left foot with fat layer exposed Status: Chronic Code(s): L97.522 - Non-pressure chronic ulcer of other part of left foot with fat layer exposed (2) Type 2 diabetes mellitus Status: Chronic Code(s): E11.9 - Type 2 diabetes mellitus without complications (3) PAD (peripheral artery disease) Status: Chronic Code(s): I73.9 - Peripheral vascular disease, unspecified (4) Peripheral arterial occlusive disease Status: Chronic Code(s): I77.9 - Disorder of arteries and arterioles, unspecified Type of Wound Date of Service: 07/04/20 Chief Complaint: Left foot first digit ulceration. Left foot fifth digit ulceration. PVD, PAD History of Wound: Patient is referral [facility]. 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 Patient is to follow-up with Dr. Nicholson with procedure for this 07/04/20. Patient relates no prior other issues with her feet or history of ulcerations. She does admit to pain in her left toes since her surgery with Dr. Nicholson. Patient is diabetic as well but states is very well controlled averaging blood sugar in the low 100s. Patient has been putting Bactroban and Band-Aid on the wounds prior. Patient denies any trauma or rubbing to start the wounds. Patient had intervention done by Dr. Nicholson on 06/12/2020. Since the patient has complaints of post procedure reperfusion pain. She states it is worse at night and she has some relief with dangling of the foot. She has had some increase in redness and swelling noted as well. Patient saw Dr. Tenorio June 26, 2020 and was started on 100mg gabapentin TID. Patient is still taking antibiotic prescribed last visit. She has noticed some improvement in her pain. Progress of Wound: There is worsening of the wounds with increase in pain and redness and edema, especially to 4th digit which now probes to bone Subjective: Patient seen and examined resting comfortably. Patient denies any new pedal complaints. Patient denies any nausea, fever, chills, chest pain, shortness of breath, cough, streaking, purulence, vomiting. - Physical Exam Vital Signs Temp Pulse Resp BP 97.7 F L 66 18 124/51 H 07/03/20 09:30 07/03/20 09:30 07/03/20 09:30 07/03/20 09:30 General: Alert, Oriented x3 HEENT: Atraumatic Extremities: No clubbing, Capillary Refill Less than 3 Seconds, No Calf Tenderness, Cool - toes, Diminished Peripheral Pulses, Edema - left LE mild, Tenderness - left toes Skin: Ulcer/ Wound - left plantar hallux, 5th lateral digit. No malodor, purulence, probing to bone, streaking. Skin is atrophic and hairless. Granular/fibrotic base with serosanguineous drainage after debridement. Cool to the touch, - - left 4th lateral toe ulceration. surrounding erythema and edema to lower extremity, probes to bone, skin is atrophic and hairless, macerated edges, necrotic/fibrotic base, cool to the touch Wound Measurements and Assessment WC - Nurse 1 - General Ulcer Measurement Start: 06/26/20 10:12 Freq: Status: Active Protocol: Activity Type Activity Date Activity User E-Sign Co-Sign Detail Recorded Client Recorded Date Recorded By Document 07/03/20 09:30 DL [id number] 07/03/20 09:41 DL 07/03/20 09:30 Wound Center Nurse 1 [Ulcer Assessment] 4-left heel fissure -Combined with other wound No -Current Size (cm) - Length 0.7 -Current Size (cm) - Width 0.3 -Current Size (cm) - Depth 0.1 -Total Square Cm 0.21 -Photo Taken No -Epithelialization None Present -Tunneling No -Undermining/Tunneling No -Circular Undermining No -Exudate Amt Small -Exudate Type Serosanguineous -Wound Margin Distinct, Outline Attached -Granulation Amt None Present (0 %) -Slough/Fibrin Yes -Necrosis Amt Large (67-100%) -Necrotic Tissue Type Adherent Slough -Texture (Dot-wound Skin Appearance) Assessed, Scarring -Moisture (Dot-wound Skin Appearance Assessed,Dry/ ) Scaly -Color (Dot-wound Skin Appearance) Assessed -Temperature (Dot-wound Skin No Abnormality Appearance) (Pt Warm) -Tenderness on Palpation (Odt-wound Yes Skin Appearance) -Ulcer Cleansing Rinsed/ Irrigated with Saline -Foul Odor after Cleansing No -Anesthetic Used 5% Lidocaine Gel #3 4th lateral toe -Combined with other wound No -Current Size (cm) - Length 1 -Current Size (cm) - Width 1 -Current Size (cm) - Depth 0.1 -Total Square Cm 1 -Photo Taken No -Epithelialization None Present -Tunneling No -Undermining/Tunneling No -Circular Undermining No -Exudate Amt Small -Exudate Type Serosanguineous -Wound Margin Distinct, Outline Attached -Granulation Amt None Present (0 %) -Slough/Fibrin Yes -Necrosis Amt Large (67-100%) -Necrotic Tissue Type Adherent Slough -Texture (Dot-wound Skin Appearance) Assessed, Scarring -Moisture (Dot-wound Skin Appearance Assessed, ) Maceration -Color (Dot-wound Skin Appearance) Erythema -Temperature (Dot-wound Skin No Abnormality Appearance) (Pt Warm) -Tenderness on Palpation (Dot-wound Yes Skin Appearance) -Ulcer Cleansing Rinsed/ Irrigated with Saline -Foul Odor after Cleansing No -Anesthetic Used 5% Lidocaine Gel #2 L 5th toe -Combined with other wound No -Current Size (cm) - Length 0.8 -Current Size (cm) - Width 0.7 -Current Size (cm) - Depth 0.1 -Total Square Cm 0.56 -Photo Taken No -Epithelialization None Present -Tunneling No -Undermining/Tunneling No -Circular Undermining No -Exudate Amt Small -Exudate Type Serosanguineous -Wound Margin Distinct, Outline Attached -Granulation Amt None Present (0 %) -Slough/Fibrin Yes -Necrosis Amt Large (67-100%) -Necrotic Tissue Type Adherent Slough -Texture (Dot-wound Skin Appearance) Assessed, Scarring -Moisture (Dot-wound Skin Appearance Assessed, ) Maceration -Color (Dot-wound Skin Appearance) Assessed, Erythema -Temperature (Dot-wound Skin No Abnormality Appearance) (Pt Warm) -Tenderness on Palpation (Dot-wound Yes Skin Appearance) -Ulcer Cleansing Rinsed/ Irrigated with Saline -Foul Odor after Cleansing No -Anesthetic Used 5% Lidocaine Gel #1 L Grt Toe -Combined with other wound No -Current Size (cm) - Length 0.9 -Current Size (cm) - Width 0.6 -Current Size (cm) - Depth 0.1 -Total Square Cm 0.54 -Photo Taken No -Epithelialization None Present -Tunneling No -Undermining/Tunneling No -Circular Undermining No -Exudate Amt Small -Exudate Type Serosanguineous -Wound Margin Distinct, Outline Attached -Granulation Amt None Present (0 %) -Slough/Fibrin Yes -Necrosis Amt Large (67-100%) -Necrotic Tissue Type Adherent Slough -Texture (Dot-wound Skin Appearance) Assessed, Scarring -Moisture (Dot-wound Skin Appearance Assessed, ) Maceration -Color (Dot-wound Skin Appearance) Erythema -Temperature (Dot-wound Skin No Abnormality Appearance) (Pt Warm) -Tenderness on Palpation (Dot-wound Yes Skin Appearance) -Ulcer Cleansing Rinsed/ Irrigated with Saline -Foul Odor after Cleansing No -Anesthetic Used 5% Lidocaine Gel WC - Nurse 2 - General Ulcer CM Notes Start: 06/26/20 10:12 Freq: Status: Active Protocol: Activity Type Activity Date Activity User E-Sign Co-Sign Detail Recorded Client Recorded Date Recorded By Document 07/03/20 09:46 [email or web address] [id number] 07/03/20 10:26 07/03/20 09:46 Wound Center Nurse 2 [Procedure/Treatment] 4-left heel fissure -Correct Patient No -Correct Side, Site, Position No -Correct Procedure No -Procedure Performed No -Circular Undermining No -Wound/Ulcer Outcome Not Healed #3 4th lateral toe -Time 09:58 -Correct Patient Yes -Correct Side, Site, Position Yes -Correct Procedure Yes -Procedure Performed Yes -Type of Procedure Debridement -Clinical Debridement Subcutaneous -Tissue Removed Subcutaneous -Post Debridement (cm) - Length 1.1 -Post Debridement (cm) - Width 1.1 -Post Debridement (cm) - Depth 0.1 -Total Square (Post) (cm) 1.21 -Area of Debridement (cm) - Length 1.1 -Area of Debridement (cm) - Width 1.1 -Total Square (Area) (cm) 1.21 -Tunneling No -Undermining/Tunneling No -Circular Undermining No -Wound/Ulcer Outcome Not Healed -Ulcer Cleansing Rinsed/ Irrigated with Saline -Foul Odor after Cleansing No -Bioengineered Tissue No -Bleeding Controlled with Pressure -Offloading Yes -Type of Offloading Camwalker -Treatment Response Procedure Tolerated Well -Debridement - Subq, 1st 20sq cm Yes #2 L 5th toe -Time 09:59 -Correct Patient Yes -Correct Side, Site, Position Yes -Correct Procedure Yes -Procedure Performed Yes -Type of Procedure Debridement -Clinical Debridement Subcutaneous -Tissue Removed Subcutaneous -Post Debridement (cm) - Length 0.8 -Post Debridement (cm) - Width 0.8 -Post Debridement (cm) - Depth 0.1 -Total Square (Post) (cm) 0.64 -Area of Debridement (cm) - Length 0.8 -Area of Debridement (cm) - Width 0.8 -Total Square (Area) (cm) 0.64 -Tunneling No -Undermining/Tunneling No -Circular Undermining No -Wound/Ulcer Outcome Not Healed -Ulcer Cleansing Rinsed/ Irrigated with Saline -Foul Odor after Cleansing No -Bioengineered Tissue No -Bleeding Controlled with Pressure -Offloading Yes -Type of Offloading Camwalker -Treatment Response Procedure Tolerated Well -Debridement - Subq, 1st 20sq cm No #1 L Grt Toe -Time 09:59 -Correct Patient Yes -Correct Side, Site, Position Yes -Correct Procedure Yes -Procedure Performed Yes -Type of Procedure Debridement -Clinical Debridement Subcutaneous -Tissue Removed Subcutaneous -Post Debridement (cm) - Length 1 -Post Debridement (cm) - Width 0.6 -Post Debridement (cm) - Depth 0.1 -Total Square (Post) (cm) 0.6 -Area of Debridement (cm) - Length 1 -Area of Debridement (cm) - Width 0.6 -Total Square (Area) (cm) 0.6 -Tunneling No -Undermining/Tunneling No -Circular Undermining No -Wound/Ulcer Outcome Not Healed -Ulcer Cleansing Rinsed/ Irrigated with Saline -Foul Odor after Cleansing No -Bioengineered Tissue No -Bleeding Controlled with Pressure -Offloading Yes -Type of Offloading Camwalker -Treatment Response Procedure Tolerated Well -Debridement - Subq, 1st 20sq cm No [See Physician Procedure note for Specifics] Pain Scale: 0-10 Numeric [Pain] -Is Patient Pain Free? Yes Musculoskeletal: Tenderness - left toes Neurological: - - decreased light touch sensation Psych/Mental Status: Normal Affect, Appropriate Debridement Note Post-Debridement Measurements/Treatment WC - Nurse 2 - General Ulcer CM Notes Start: 06/26/20 10:12 Freq: Status: Active Protocol: Activity Type Activity Date Activity User E-Sign Co-Sign Detail Recorded Client Recorded Date Recorded By Document 06/26/20 10:42 JF [id number] 06/26/20 10:51 JF Document 07/03/20 09:46 JF [id number] 07/03/20 10:26 06/26/20 07/03/20 10:42 09:46 Wound Center Nurse 2 4-left heel fissure -Time 10:43 -Correct Patient Yes No -Correct Side, Site, Position Yes No -Correct Procedure Yes No -Procedure Performed Yes No -Type of Procedure Debridement -Clinical Debridement Subcutaneous -Tissue Removed Subcutaneous -Post Debridement (cm) - Length 0.9 -Post Debridement (cm) - Width 0.2 -Post Debridement (cm) - Depth 0.2 -Total Square (Post) (cm) 0.18 -Area of Debridement (cm) - Length 0.9 -Area of Debridement (cm) - Width 0.2 -Total Square (Area) (cm) 0.18 -Tunneling No -Undermining/Tunneling No -Circular Undermining No No -Wound/Ulcer Outcome Not Healed Not Healed -Ulcer Cleansing Rinsed/ Irrigated with Saline -Foul Odor after Cleansing No -Bioengineered Tissue No -Bleeding Controlled with Pressure -Offloading Yes -Type of Offloading Surgical Shoe -Treatment Response Procedure Tolerated Well -Debridement - Subq, 1st 20sq cm Yes #3 4th lateral toe -Time 10:46 09:58 -Correct Patient Yes Yes -Correct Side, Site, Position Yes Yes -Correct Procedure Yes Yes -Procedure Performed Yes Yes -Type of Procedure Debridement Debridement -Clinical Debridement Subcutaneous Subcutaneous -Tissue Removed Subcutaneous Subcutaneous -Post Debridement (cm) - Length 1.2 1.1 -Post Debridement (cm) - Width 1 1.1 -Post Debridement (cm) - Depth 0.2 0.1 -Total Square (Post) (cm) 1.2 1.21 -Area of Debridement (cm) - Length 1.2 1.1 -Area of Debridement (cm) - Width 1 1.1 -Total Square (Area) (cm) 1.2 1.21 -Tunneling No No -Undermining/Tunneling No No -Circular Undermining No No -Wound/Ulcer Outcome Not Healed Not Healed -Ulcer Cleansing Rinsed/ Rinsed/ Irrigated with Irrigated with Saline Saline -Foul Odor after Cleansing No No -Bioengineered Tissue No No -Bleeding Controlled with Pressure Pressure -Offloading Yes Yes -Type of Offloading Surgical Shoe Camwalker -Treatment Response Procedure Procedure Tolerated Well Tolerated Well -Debridement - Subq, 1st 20sq cm No Yes #2 L 5th toe -Time 10:47 09:59 -Correct Patient Yes Yes -Correct Side, Site, Position Yes Yes -Correct Procedure Yes Yes -Procedure Performed Yes Yes -Type of Procedure Debridement Debridement -Clinical Debridement Subcutaneous Subcutaneous -Tissue Removed Subcutaneous Subcutaneous -Post Debridement (cm) - Length 0.9 0.8 -Post Debridement (cm) - Width 0.8 0.8 -Post Debridement (cm) - Depth 0.2 0.1 -Total Square (Post) (cm) 0.72 0.64 -Area of Debridement (cm) - Length 0.9 0.8 -Area of Debridement (cm) - Width 0.8 0.8 -Total Square (Area) (cm) 0.72 0.64 -Tunneling No No -Undermining/Tunneling No No -Circular Undermining No No -Wound/Ulcer Outcome Not Healed Not Healed -Ulcer Cleansing Rinsed/ Rinsed/ Irrigated with Irrigated with Saline Saline -Foul Odor after Cleansing No No -Bioengineered Tissue No No -Bleeding Controlled with Pressure Pressure -Offloading Yes Yes -Type of Offloading Surgical Shoe Camwalker -Treatment Response Procedure Procedure Tolerated Well Tolerated Well -Debridement - Subq, 1st 20sq cm No No #1 L Grt Toe -Time 10:47 09:59 -Correct Patient Yes Yes -Correct Side, Site, Position Yes Yes -Correct Procedure Yes Yes -Procedure Performed Yes Yes -Type of Procedure Debridement Debridement -Clinical Debridement Subcutaneous Subcutaneous -Tissue Removed Subcutaneous Subcutaneous -Post Debridement (cm) - Length 1 1 -Post Debridement (cm) - Width 0.6 0.6 -Post Debridement (cm) - Depth 0.3 0.1 -Total Square (Post) (cm) 0.6 0.6 -Area of Debridement (cm) - Length 1 1 -Area of Debridement (cm) - Width 0.6 0.6 -Total Square (Area) (cm) 0.6 0.6 -Tunneling No No -Undermining/Tunneling No No -Circular Undermining No No -Wound/Ulcer Outcome Not Healed Not Healed -Ulcer Cleansing Rinsed/ Rinsed/ Irrigated with Irrigated with Saline Saline -Foul Odor after Cleansing No No -Bioengineered Tissue No No -Bleeding Controlled with Pressure Pressure -Offloading Yes Yes -Type of Offloading Surgical Shoe Camwalker -Treatment Response Procedure Procedure Tolerated Well Tolerated Well -Debridement - Subq, 1st 20sq cm No No Pain Scale: 0-10 Numeric Is Patient Pain Free? Yes Yes - Nurse 3 - General Ulcer D/C NN Start: 06/26/20 10:12 Freq: Status: Active Protocol: Activity Type Activity Date Activity User E-Sign Co-Sign Detail Recorded Client Recorded Date Recorded By Document 06/26/20 11:11 MS [id number] 06/26/20 11:13 MS 06/26/20 11:11 Wound Care Nurse 3 4-left heel fissure -Ulcer Cleansing Rinsed/ Irrigated with Saline -Foul Odor after Cleansing No -Negative Pressure Wound Therapy N/A -Primary Dressing Covered/Secured with Dry Gauze, Secured with Tape #3 4th lateral toe -Ulcer Cleansing Rinsed/ Irrigated with Saline -Foul Odor after Cleansing No -Negative Pressure Wound Therapy N/A -Primary Dressing Covered/Secured with Dry Gauze, Secured with Tape #2 L 5th toe -Ulcer Cleansing Rinsed/ Irrigated with Saline -Foul Odor after Cleansing No -Primary Dressing Covered/Secured with Dry Gauze, Secured with Tape #1 L Grt Toe -Ulcer Cleansing Rinsed/ Irrigated with Saline -Foul Odor after Cleansing No -Negative Pressure Wound Therapy N/A -Primary Dressing Covered/Secured with Dry Gauze, Secured with Tape Pain Scale: 0-10 Numeric Is Patient Pain Free? Yes - Visit Discharge Discharge Condition Stable Ambulatory Status Ambulatory Wound debrided: hallux Laterality: Left Wound Grade/Stage: pitt 1 Type of Debridement: Excisional debridement Anesthesia Used: 4% Lidocaine Solution Depth: in the subcutaneous layer Percentage of wound debrided: 100 Instrument Used: 3mm curette Tissue Removed: Tissue removed includes fibrous, devitalized, biofilm, and slough tissue Severity: Fat Layer Exposed Amount of bleeding with debridement: Mild Bleeding Controlled with: Pressure Patient tolerated procedure well - Additional Wound Wound debrided: 5th lateral toe Laterality: Left Wound Grade/Stage: pitt 1 Type of Debridement: Excisional debridement Anesthesia Used: 4% Lidocaine Solution Depth: in the subcutaneous layer Percentage of wound debrided: 100 Instrument Used: 3mm curette Tissue Removed: Tissue removed includes fibrous, devitalized, biofilm, and slough tissue Severity: Fat Layer Exposed Amount of bleeding with debridement: Mild Bleeding Controlled with: Pressure Patient tolerated procedure: Patient tolerated procedure well - Additional Wound Wound debrided: lateral 4th digit Laterality: Left Wound Grade/Stage: pitt 2 Type of Debridement: Excisional debridement Anesthesia Used: 4% Lidocaine Solution Depth: in the subcutaneous layer - probes to bone Percentage of wound debrided: 100 Instrument Used: 3mm curette Tissue Removed: Tissue removed includes fibrous, devitalized, biofilm, and slough tissue Severity: Fat Layer Exposed - probes to bone Amount of bleeding with debridement: Mild Bleeding Controlled with: Pressure Patient tolerated procedure: Patient tolerated procedure well - Additional Wound Wound debrided: lateral heel Laterality: Left Wound Grade/Stage: pitt 1 Patient tolerated procedure: - - wound not debrided today due to pain Assessment/Plan Active Problems (Last Reviewed 07/02/20 @ 15:48 by Melody Mckeon) Non-pressure chronic ulcer of other part of left foot with fat layer exposed (Chronic) Type 2 diabetes mellitus (Chronic) PAD (peripheral artery disease) (Chronic) Peripheral arterial occlusive disease (Chronic) Assessment: Left first digit plantar medial ulcer. Left fifth digit lateral ulcer. Left lateral fourth digit ulcer. Left posterior lateral heel fissure ulcer. Cellulitis left lower extremity. Peripheral vascular disease status post intervention 06/12/[address] Nicholson. Diabetes Plan: Patient seen and examined. Patient is referral from Dr. Escudero's [facility] ulcerations first and fifth toes of left foot. Patient has peripheral vascular disease. Patient has been seeing Dr. Nicholson for this. Patient had intervention on 06/12/2020. Since then patient has had some reperfusion pain with swelling that is worse at night. Patient follows up with Dr Nicholson on 07/04/20. This pain has persisted. Patient saw Dr. Tenorio on 06/26/2020 and he prescribed gabapentin which patient relates helps. Patient noted to have increased redness and swelling with pain with edges consistent with infection. A prescription for Augmentin was sent to patient's pharmacy on 06/26/2020. Patient noted to have a creatinine clearance of 43 on June 12, 2020. With new probing to bone and concern for bone infection patient switched to Clindamycin for better bone penetration. A Rx was sent to patient pharmacy 07/03/20. Patient has recent LEAS prior to intervention with Dr. Nicholson with left monophasic pulses with an JENY of 0.59 from the PT artery and a TBI of 0.12. On the right side the DP and PT are monophasic as well with an JENY of 0.53 on the PT artery and 0.75 to the DP artery and a TBI of 0.3. Left first toe, fourth toe, and fifth toe were sharply debrided with a curette without incident as noted in the clinical section after verbal consent was obtained. Sites were dressed with hydrogel. Patient to continue Santyl dressing as there is not much drainage with the infection to hallux and 5th digit. Silver dressing started to 4th digit. Reviewed proper wound care with patient. Discussed with the patient the importance of offloading the sites with wide enough shoe gear if she is to be wearing shoes, proper diet, good blood sugar control. Patient also complains of pain in her toes to her left foot. Discussed with patient that this is probably a combination of her new blood flow from her intervention as well as some pain from the wounds themselves. Patient has some neuropathy which would decrease some of the feeling and thus pain from the wounds. Discussed importance of offloading. Rx was given for CAM boot with ulceration sites offloaded to be filled at office. Due to concern for bone infection MRI was ordered. Patient to discuss with Dr Nicholson if she is optimized at appointment tomorrow. Culture was taken of 4th digit wound. Discussed that with worsening of wounds, particularly the 4th, that there is concern for bone infection. Discussed IV vs amputation options if infection is proven. Discussed healing potential if blood flow is still sub optimal. All questions were answered patient satisfaction. Discussed with the patient all concerning signs and symptoms to watch out for and to contact office if he either presents. Patient's follow-up in 1 week. 20 to 29 minutes was spent on this encounter. This included both face to face and non face to face care, which includes but not limited to time preparing for the visit (which includes but not limited to reviewing medical record, any pertinent paperwork, as well as previous imaging and/or test results), reviewing/obtaining the noted history, performing the noted examination, counseling and providing education to the patient as well as to patient's family and/or patient caregivers per patient request. This also includes ordering any medication(s), test(s), and/or procedure(s) as indicated and as documented in the medical record, interpreting / sharing this information when indicated (and with patient's permission) as documented, communicating with other healthcare providers as needed/as requested, the time documenting information in the medical record, as well as any further care coordination. This note was generated with [employer] dictation software. It may contain incorrect words, spelling, and punctuation that were not noted in checking the note before signing.
[2020-07-17 10:16] VITALS: BP 133/54; PULSE 72; RESP 16; TEMP 36.2; BMI 24.2
--- NOTE | 2020-07-17 11:56 | WC ---
asilver alginate to amputation site right foot fourth toe
--- NOTE | 2020-07-17 23:41 | PCM.WC.PN ---
(1) Non-pressure chronic ulcer of other part of left foot with fat layer exposed Status: Chronic Code(s): L97.522 - Non-pressure chronic ulcer of other part of left foot with fat layer exposed (2) Type 2 diabetes mellitus Status: Chronic Qualifiers: Diabetes mellitus complication status: with circulatory complication Diabetes mellitus complication detail: with peripheral angiopathy with gangrene Code(s): E11.9 - Type 2 diabetes mellitus without complications (3) PAD (peripheral artery disease) Status: Chronic Code(s): I73.9 - Peripheral vascular disease, unspecified (4) Peripheral arterial occlusive disease Status: Chronic Code(s): I77.9 - Disorder of arteries and arterioles, unspecified (5) Amputated toe Status: Acute Qualifiers: Laterality: left Qualified Code(s): S98.132A - Complete traumatic amputation of one left lesser toe, initial encounter Code(s): S98.139A - Complete traumatic amputation of one unspecified lesser toe, initial encounter Type of Wound Date of Service: 07/17/20 Chief Complaint: Left foot first digit ulceration. Left foot fifth digit ulceration. PVD, PAD History of Wound: Patient is referral [facility] 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 Patient has a history of smoking. Patient is diabetic as well but states is very well controlled averaging blood sugar in the low 100s. Patient denies any trauma or rubbing to start the wounds. Patient had intervention done by Dr. Nicholson on 06/12/2020. Since then patient has complaints of post procedure reperfusion pain. She states it is worse at night and she has some relief with dangling of the foot. She has had some increase in redness and swelling noted as well. Patient saw Dr. Tenorio June 26, 2020 and was started on 100mg gabapentin TID. She has noticed some improvement in her pain. 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 Patient was hosppitalized 07/07/20 for worsening toe wound and blood in stool. 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 Amputation of digit with debridement of 1st and 5th digit ulcerations was performed 07/08/20. 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 Patient was discharged on levaquin every other day due to impairent of her kidneys. Patient was also discharged on oxycodone. Patient relates improvement of her pain since surgery. Progress of Wound: 4th toe amputation site less macerated. 1st and 5th digit ulcers stable. less erythema/edema Subjective: Patient seen and examined resting comfortably. Patient denies any new pedal complaints. Patient denies any nausea, fever, chills, chest pain, shortness of breath, cough, streaking, purulence, vomiting. Patient relates the redness and swelling have improved - Physical Exam Vital Signs Temp Pulse Resp BP 97.2 F L 72 16 133/54 H 07/17/20 10:16 07/17/20 10:16 07/17/20 10:16 07/17/20 10:16 General: Alert, Oriented x3 HEENT: Atraumatic Extremities: No clubbing, No cyanosis, Capillary Refill Less than 3 Seconds, No Calf Tenderness, Diminished Peripheral Pulses, Edema - left foot improved, Tenderness - to ulcerations and amputation site- improved Skin: Ulcer/ Wound - left medial hallux, lateral 5th digit. No malodor, purulence, probing to bone, streaking. Erythema and edema noted with improvement. Skin is atrophic and hairless. Granular base with serosanguineous drainage after debridement, Incision - left 4th toe amputation. Mild maceration noted. sutures are intact skin is well coapted, skin is noted to not have healed, serous drainage Wound Measurements and Assessment WC - Nurse 1 - General Ulcer Measurement Start: 06/26/20 10:12 Freq: Status: Active Protocol: Activity Type Activity Date Activity User E-Sign Co-Sign Detail Recorded Client Recorded Date Recorded By Document 07/17/20 10:16 [place] [id number] 07/17/20 10:39 MS 07/17/20 10:16 Wound Center Nurse 1 [Ulcer Assessment] 4-left heel fissure -Current Size (cm) - Length 1 -Current Size (cm) - Width 0.1 -Current Size (cm) - Depth 0.1 -Total Square Cm 0.1 -Exudate Amt None Present -Wound Margin Distinct, Outline Attached -Granulation Amt None Present (0 %) -Slough/Fibrin No -Moisture (Dot-wound Skin Appearance Dry/Scaly ) -Color (Dot-wound Skin Appearance) No Abnormality -Temperature (Dot-wound Skin No Abnormality Appearance) (Pt Warm) -Tenderness on Palpation (Dot-wound No Skin Appearance) -Ulcer Cleansing soap and water -Foul Odor after Cleansing No -Anesthetic Used 4% Lidocaine Solution #3 4th lateral toe -Current Size (cm) - Length 3 -Current Size (cm) - Width 1 -Current Size (cm) - Depth 0.1 -Total Square Cm 3 -Exudate Amt Medium -Exudate Type Serous -Wound Margin Distinct, Outline Attached -Granulation Amt Medium (34-66%) -Slough/Fibrin Yes -Necrosis Amt None Present (0 %) -Texture (Dot-wound Skin Appearance) No Abnormality -Moisture (Dot-wound Skin Appearance Dry/Scaly ) -Color (Dot-wound Skin Appearance) No Abnormality -Temperature (Dot-wound Skin No Abnormality Appearance) (Pt Warm) -Tenderness on Palpation (Dot-wound No Skin Appearance) -Ulcer Cleansing soap and water -Foul Odor after Cleansing No -Anesthetic Used 4% Lidocaine Solution #2 L 5th toe -Current Size (cm) - Length 1 -Current Size (cm) - Width 0.5 -Current Size (cm) - Depth 0.1 -Total Square Cm 0.5 -Exudate Amt None Present -Wound Margin Distinct, Outline Attached -Granulation Amt None Present (0 %) -Slough/Fibrin No -Texture (Dot-wound Skin Appearance) No Abnormality -Moisture (Dot-wound Skin Appearance Dry/Scaly ) -Temperature (Dot-wound Skin No Abnormality Appearance) (Pt Warm) -Ulcer Cleansing soap and water -Anesthetic Used 4% Lidocaine Solution #1 L Grt Toe -Current Size (cm) - Length 0.8 -Current Size (cm) - Width 0.5 -Current Size (cm) - Depth 0.1 -Total Square Cm 0.40 -Wound Margin Distinct, Outline Attached -Granulation Amt None Present (0 %) -Slough/Fibrin No -Texture (Dot-wound Skin Appearance) No Abnormality -Moisture (Dot-wound Skin Appearance Dry/Scaly ) -Color (Dot-wound Skin Appearance) No Abnormality -Temperature (Dot-wound Skin No Abnormality Appearance) (Pt Warm) -Tenderness on Palpation (Dot-wound No Skin Appearance) -Ulcer Cleansing soap and water -Anesthetic Used 4% Lidocaine Solution WC - Nurse 2 - General Ulcer CM Notes Start: 06/26/20 10:12 Freq: Status: Active Protocol: Activity Type Activity Date Activity User E-Sign Co-Sign Detail Recorded Client Recorded Date Recorded By Document 07/17/20 11:21 [email or web address] [id number] 07/17/20 11:36 RICHI 07/17/20 11:21 Wound Center Nurse 2 [Procedure/Treatment] 4-left heel fissure -Correct Patient No -Correct Side, Site, Position No -Correct Procedure No -Procedure Performed No -Post Debridement (cm) - Length 0 -Post Debridement (cm) - Width 0 -Post Debridement (cm) - Depth 0 -Total Square (Post) (cm) 0 -Area of Debridement (cm) - Length 0 -Area of Debridement (cm) - Width 0 -Total Square (Area) (cm) 0 -Wound/Ulcer Outcome Healed- Epithelialized #3 4th lateral toe -Correct Patient No -Correct Side, Site, Position No -Correct Procedure No -Procedure Performed No -Post Debridement (cm) - Length 0 -Post Debridement (cm) - Width 0 -Post Debridement (cm) - Depth 0 -Total Square (Post) (cm) 0 -Area of Debridement (cm) - Length 0 -Area of Debridement (cm) - Width 0 -Total Square (Area) (cm) 0 -Wound/Ulcer Outcome Amputation #2 L 5th toe -Time 11:22 -Correct Patient Yes -Correct Side, Site, Position Yes -Correct Procedure Yes -Procedure Performed Yes -Type of Procedure Debridement -Clinical Debridement Subcutaneous -Tissue Removed Subcutaneous -Post Debridement (cm) - Length 0.6 -Post Debridement (cm) - Width 0.8 -Post Debridement (cm) - Depth 0.2 -Total Square (Post) (cm) 0.48 -Area of Debridement (cm) - Length 0.6 -Area of Debridement (cm) - Width 0.8 -Total Square (Area) (cm) 0.48 -Tunneling No -Undermining/Tunneling No -Circular Undermining No -Wound/Ulcer Outcome Not Healed -Ulcer Cleansing Rinsed/ Irrigated with Saline -Foul Odor after Cleansing No -Bioengineered Tissue No -Bleeding Controlled with Pressure -Offloading Yes -Type of Offloading Surgical Shoe -Treatment Response Procedure Tolerated Well -Debridement - Subq, 1st 20sq cm Yes #1 L Grt Toe -Time 11:23 -Correct Patient Yes -Correct Side, Site, Position Yes -Correct Procedure Yes -Procedure Performed Yes -Type of Procedure Debridement -Clinical Debridement Subcutaneous -Tissue Removed Subcutaneous -Post Debridement (cm) - Length 0.8 -Post Debridement (cm) - Width 0.6 -Post Debridement (cm) - Depth 0.2 -Total Square (Post) (cm) 0.48 -Area of Debridement (cm) - Length 0.8 -Area of Debridement (cm) - Width 0.6 -Total Square (Area) (cm) 0.48 -Tunneling No -Undermining/Tunneling No -Circular Undermining No -Wound/Ulcer Outcome Not Healed -Ulcer Cleansing Rinsed/ Irrigated with Saline -Foul Odor after Cleansing No -Bioengineered Tissue No -Bleeding Controlled with Pressure -Offloading Yes -Type of Offloading Surgical Shoe -Treatment Response Procedure Tolerated Well -Debridement - Subq, 1st 20sq cm No [See Physician Procedure note for Specifics] Pain Scale: 0-10 Numeric [Pain] -Is Patient Pain Free? Yes - Nurse 3 - General Ulcer D/C NN Start: 06/26/20 10:12 Freq: Status: Active Protocol: Activity Type Activity Date Activity User E-Sign Co-Sign Detail Recorded Client Recorded Date Recorded By Document 07/17/20 11:45 MS [id number] 07/17/20 11:57 MS 07/17/20 11:45 Wound Care Nurse 3 [Wound Dressing] #2 L 5th toe -Ulcer Cleansing Rinsed/ Irrigated with Saline -Foul Odor after Cleansing No -Other Dressing hydrogel, -Primary Dressing Covered/Secured Dry Gauze, with Secured with Tape #1 L Grt Toe -Other Dressing hydrogel -Primary Dressing Covered/Secured Dry Gauze, with Secured with Tape Pain Scale: 0-10 Numeric [Pain] -Is Patient Pain Free? Yes - Visit Discharge [Visit Discharge Information] -Discharge Condition Stable -Ambulatory Status Walker -Medication Reconcilliation completed No & provided to patient/care provider -Clinical Summary of Care Provided Yes 07/17/20 11:56 Wound Center by Ciarra Romero alginate to amputation site right foot fourth toe Initialized on 07/17/20 11:56 - END OF NOTE Musculoskeletal: Muscle Wasting, Tenderness Neurological: Sensory exam intact to light touch and pain Psych/Mental Status: Normal Affect, Appropriate Debridement Note Post-Debridement Measurements/Treatment WC - Nurse 2 - General Ulcer CM Notes Start: 06/26/20 10:12 Freq: Status: Active Protocol: Activity Type Activity Date Activity User E-Sign Co-Sign Detail Recorded Client Recorded Date Recorded By Document 06/26/20 10:42 [id number] 06/26/20 10:51 Document 07/03/20 09:46 [id number] 07/03/20 10:26 Document 07/17/20 11:21 [id number] 07/17/20 11:36 06/26/20 07/03/20 07/17/20 10:42 09:46 11:21 Wound Center Nurse 2 4-left heel fissure -Time 10:43 -Correct Patient Yes No No -Correct Side, Site, Position Yes No No -Correct Procedure Yes No No -Procedure Performed Yes No No -Type of Procedure Debridement -Clinical Debridement Subcutaneous -Tissue Removed Subcutaneous -Post Debridement (cm) - Length 0.9 0 -Post Debridement (cm) - Width 0.2 0 -Post Debridement (cm) - Depth 0.2 0 -Total Square (Post) (cm) 0.18 0 -Area of Debridement (cm) - Length 0.9 0 -Area of Debridement (cm) - Width 0.2 0 -Total Square (Area) (cm) 0.18 0 -Tunneling No -Undermining/Tunneling No -Circular Undermining No No -Wound/Ulcer Outcome Not Healed Not Healed Healed- Epithelialized -Ulcer Cleansing Rinsed/ Irrigated with Saline -Foul Odor after Cleansing No -Bioengineered Tissue No -Bleeding Controlled with Pressure -Offloading Yes -Type of Offloading Surgical Shoe -Treatment Response Procedure Tolerated Well -Debridement - Subq, 1st 20sq cm Yes #3 4th lateral toe -Time 10:46 09:58 -Correct Patient Yes Yes No -Correct Side, Site, Position Yes Yes No -Correct Procedure Yes Yes No -Procedure Performed Yes Yes No -Type of Procedure Debridement Debridement -Clinical Debridement Subcutaneous Subcutaneous -Tissue Removed Subcutaneous Subcutaneous -Post Debridement (cm) - Length 1.2 1.1 0 -Post Debridement (cm) - Width 1 1.1 0 -Post Debridement (cm) - Depth 0.2 0.1 0 -Total Square (Post) (cm) 1.2 1.21 0 -Area of Debridement (cm) - Length 1.2 1.1 0 -Area of Debridement (cm) - Width 1 1.1 0 -Total Square (Area) (cm) 1.2 1.21 0 -Tunneling No No -Undermining/Tunneling No No -Circular Undermining No No -Wound/Ulcer Outcome Not Healed Not Healed Amputation -Ulcer Cleansing Rinsed/ Rinsed/ Irrigated with Irrigated with Saline Saline -Foul Odor after Cleansing No No -Bioengineered Tissue No No -Bleeding Controlled with Pressure Pressure -Offloading Yes Yes -Type of Offloading Surgical Shoe Camwalker -Treatment Response Procedure Procedure Tolerated Well Tolerated Well -Debridement - Subq, 1st 20sq cm No Yes #2 L 5th toe -Time 10:47 09:59 11:22 -Correct Patient Yes Yes Yes -Correct Side, Site, Position Yes Yes Yes -Correct Procedure Yes Yes Yes -Procedure Performed Yes Yes Yes -Type of Procedure Debridement Debridement Debridement -Clinical Debridement Subcutaneous Subcutaneous Subcutaneous -Tissue Removed Subcutaneous Subcutaneous Subcutaneous -Post Debridement (cm) - Length 0.9 0.8 0.6 -Post Debridement (cm) - Width 0.8 0.8 0.8 -Post Debridement (cm) - Depth 0.2 0.1 0.2 -Total Square (Post) (cm) 0.72 0.64 0.48 -Area of Debridement (cm) - Length 0.9 0.8 0.6 -Area of Debridement (cm) - Width 0.8 0.8 0.8 -Total Square (Area) (cm) 0.72 0.64 0.48 -Tunneling No No No -Undermining/Tunneling No No No -Circular Undermining No No No -Wound/Ulcer Outcome Not Healed Not Healed Not Healed -Ulcer Cleansing Rinsed/ Rinsed/ Rinsed/ Irrigated with Irrigated with Irrigated with Saline Saline Saline -Foul Odor after Cleansing No No No -Bioengineered Tissue No No No -Bleeding Controlled with Pressure Pressure Pressure -Offloading Yes Yes Yes -Type of Offloading Surgical Shoe Camwalker Surgical Shoe -Treatment Response Procedure Procedure Procedure Tolerated Well Tolerated Well Tolerated Well -Debridement - Subq, 1st 20sq cm No No Yes #1 L Grt Toe -Time 10:47 09:59 11:23 -Correct Patient Yes Yes Yes -Correct Side, Site, Position Yes Yes Yes -Correct Procedure Yes Yes Yes -Procedure Performed Yes Yes Yes -Type of Procedure Debridement Debridement Debridement -Clinical Debridement Subcutaneous Subcutaneous Subcutaneous -Tissue Removed Subcutaneous Subcutaneous Subcutaneous -Post Debridement (cm) - Length 1 1 0.8 -Post Debridement (cm) - Width 0.6 0.6 0.6 -Post Debridement (cm) - Depth 0.3 0.1 0.2 -Total Square (Post) (cm) 0.6 0.6 0.48 -Area of Debridement (cm) - Length 1 1 0.8 -Area of Debridement (cm) - Width 0.6 0.6 0.6 -Total Square (Area) (cm) 0.6 0.6 0.48 -Tunneling No No No -Undermining/Tunneling No No No -Circular Undermining No No No -Wound/Ulcer Outcome Not Healed Not Healed Not Healed -Ulcer Cleansing Rinsed/ Rinsed/ Rinsed/ Irrigated with Irrigated with Irrigated with Saline Saline Saline -Foul Odor after Cleansing No No No -Bioengineered Tissue No No No -Bleeding Controlled with Pressure Pressure Pressure -Offloading Yes Yes Yes -Type of Offloading Surgical Shoe Camwalker Surgical Shoe -Treatment Response Procedure Procedure Procedure Tolerated Well Tolerated Well Tolerated Well -Debridement - Subq, 1st 20sq cm No No No Pain Scale: 0-10 Numeric Is Patient Pain Free? Yes Yes Yes - Nurse 3 - General Ulcer D/C NN Start: 06/26/20 10:12 Freq: Status: Active Protocol: Activity Type Activity Date Activity User E-Sign Co-Sign Detail Recorded Client Recorded Date Recorded By Document 06/26/20 11:11 MS [id number] 06/26/20 11:13 MS Document 07/17/20 11:45 MS [id number] 07/17/20 11:57 MS 06/26/20 07/17/20 11:11 11:45 Wound Care Nurse 3 4-left heel fissure -Ulcer Cleansing Rinsed/ Irrigated with Saline -Foul Odor after Cleansing No -Negative Pressure Wound Therapy N/A -Primary Dressing Covered/Secured with Dry Gauze, Secured with Tape #3 4th lateral toe -Ulcer Cleansing Rinsed/ Irrigated with Saline -Foul Odor after Cleansing No -Negative Pressure Wound Therapy N/A -Primary Dressing Covered/Secured with Dry Gauze, Secured with Tape #2 L 5th toe -Ulcer Cleansing Rinsed/ Rinsed/ Irrigated with Irrigated with Saline Saline -Foul Odor after Cleansing No No -Other Dressing hydrogel, -Primary Dressing Covered/Secured with Dry Gauze, Dry Gauze, Secured with Secured with Tape Tape #1 L Grt Toe -Ulcer Cleansing Rinsed/ Irrigated with Saline -Foul Odor after Cleansing No -Negative Pressure Wound Therapy N/A -Other Dressing hydrogel -Primary Dressing Covered/Secured with Dry Gauze, Dry Gauze, Secured with Secured with Tape Tape Pain Scale: 0-10 Numeric Is Patient Pain Free? Yes Yes WC - Visit Discharge Discharge Condition Stable Stable Ambulatory Status Ambulatory Walker Medication Reconcilliation completed & No provided to patient/care provider Clinical Summary of Care Provided Yes 07/17/20 11:56 Wound Center by Ciarra Romero to amputation site right foot fourth toe Initialized on 07/17/20 11:56 - END OF NOTE Wound debrided: hallux Laterality: Left Wound Grade/Stage: ptit 1 Type of Debridement: Excisional debridement Anesthesia Used: 4% Lidocaine Solution Depth: in the subcutaneous layer Percentage of wound debrided: 100 Instrument Used: 3mm curette Tissue Removed: Tissue removed includes fibrous, devitalized, biofilm, and slough tissue Amount of bleeding with debridement: Mild Bleeding Controlled with: Pressure Patient tolerated procedure well - Additional Wound Wound debrided: 5th digit lateral Laterality: Left Wound Grade/Stage: pitt 1 Type of Debridement: Excisional debridement Depth: in the subcutaneous layer Percentage of wound debrided: 100 Instrument Used: 3mm curette Tissue Removed: Tissue removed includes fibrous, devitalized, biofilm, and slough tissue Severity: Fat Layer Exposed Amount of bleeding with debridement: Mild Bleeding Controlled with: Pressure Patient tolerated procedure: Patient tolerated procedure well Assessment/Plan Active Problems (Last Reviewed 07/07/20 @ 17:[address] 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) Amputated toe (Acute) Type 2 diabetes mellitus (Chronic) PAD (peripheral artery disease) (Chronic) Peripheral arterial occlusive disease (Chronic) Assessment: Left first digit plantar medial ulcer. Left fifth digit lateral ulcer. 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 Left posterior lateral heel fissure ulcer-healed. Cellulitis left lower extremity-improved. Peripheral vascular disease status post intervention 06/12/[address] Nicholson. Diabetes. history tobacco abuse Plan: Patient seen and examined. Patient is referral from Dr. Escudero's office [facility] for chronic ulcerations first and fifth toes of left foot. Patient has peripheral vascular disease. Patient has been seeing Dr. Nicholson for this. Patient had intervention on 06/12/2020. Since then patient has had some reperfusion pain with swelling that is worse at night. Patient followed up with Dr Nicholson with no other intervention planned. This pain has persisted. Patient saw Dr. Tenorio on 06/26/2020 and he prescribed gabapentin which patient relates helps. Patient has recent LEAS prior to intervention with Dr. Nicholson with left monophasic pulses with an JENY of 0.59 from the PT artery and a TBI of 0.12. On the right side the DP and PT are monophasic as well with an JENY of 0.53 on the PT artery and 0.75 to the DP artery and a TBI of 0.3. 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 Patient was hospitalized on 07/07/20 for worsening 4th toe ulceration and blood in stool. Patient was noted to ahve rapid increase in gangrene to 4th digit. Amputation of 4th digit and debridement of 1st and 5th digit was performed 07/08/20. OM was confirmed with PsAg. Patient was discharged on Levaquin every other day due to kidney function. Patient was also given Rx for oxycodone. Patient noted to still have some signs of cellulitis. Refill for levaquin was given 07/17/20. Overall improvement noted. Left first toe and fifth toe were sharply debrided with a curette without incident as noted in the clinical section after verbal consent was obtained. Sites were dressed with hydrogel to 1st and 5th toe and silver alginate to ampuation site. Heel fissure has healed. Reviewed proper wound care with patient. Discussed with the patient the importance of offloading the sites with wide enough shoe gear if she is to be wearing shoes, proper diet, good blood sugar control. Patient has offloading boot. Patient also complains of pain in her toes to her left foot. Patient is taking gabaentin. She asks for a refill of her oxycodone prescribed during her hosital stay after toe amputation. A refill was sent to her pharmacy. All questions were answered patient satisfaction. Discussed with the patient all concerning signs and symptoms to watch out for and to contact office if he either presents. Patient's follow-up in 1 week. This note was generated with [employer] dictation software. It may contain incorrect words, spelling, and punctuation that were not noted in checking the note before signing.
== END 2020-07-22 23:59 ==
LOC: WC 10:15
PROVIDERS: PCP Family Medicine; Referring Provider Podiatrist; Visit Provider Podiatrist Foot & Ankle Surgery
DX: E11.621 Type 2 diabetes mellitus with foot ulcer (principal); L97.522 Non-pressure chronic ulcer of other part of left foot with fat layer exposed; I73.9 Peripheral vascular disease, unspecified; I77.9 Disorder of arteries and arterioles, unspecified; L03.116 Cellulitis of left lower limb; Z87.891 Personal history of nicotine dependence; E11.51 Type 2 diabetes mellitus with diabetic peripheral angiopathy without gangrene; E11.40 Type 2 diabetes mellitus with diabetic neuropathy, unspecified; E11.52 Type 2 diabetes mellitus with diabetic peripheral angiopathy with gangrene; Z87.820 Personal history of traumatic brain injury; Z98.890 Other specified postprocedural states
CPT/HCPCS: 11042; 87070; 87075; 87077; 87186; 87205

== ENCOUNTER → 2020-08-14 09:03 | Outpatient (CLI) | payer MEDICARE, SELFPAY ==
[2020-08-07 09:33] VITALS: BMI 23.6
[2020-08-14 09:54] LABS: Absolute Lymphocyte Count 2.07 X10^3/uL (0.83-4.51); Absolute Neutrophil Count 4.5 X10^3/uL (2.0-7.7); Basophil# 0.04 X10^3/uL; Basophil% 0.5 % (0-1); Eosinophil# 0.28 X10^3/uL; Eosinophils% 3.7 % (0-5); Hematocrit 38.5 % (37-47); Hemoglobin 12.2 g/dL (12.0-15.0); Lymphocyte # 2.07 X10^3/ul (4.0); Lymphocyte % 27.5 % (19-41); Mean Corp Hgb Conc 31.7 g/dL (32-36); Mean Corpuscular Volume 91.7 fL (81-99); Mean Platelet Vol. 9.1 fl (6.2-12.0); Monocyte# 0.61 X10^3/uL; Monocyte% 8.1 % (0-10); NRBC Flagged by Analyzer 0 % (0-5); Neutrophil # 4.52 X10^3/uL (2.7-7.7); Neutrophil % 60.1 % (47-70); Platelet Count 354 K/mm3 (150-450); RBC Distribution Width CV 13.3 % (11.6-14.6); RBC Distribution Width SD 44.5 fl (35.1-43.9); White Blood Count 7.5 K/mm3 (4.4-11.0)
[2020-08-14 10:53] LABS: AST(SGOT) 20 U/L (15-37); Alanine Aminotransfer ALT/SGPT 20 U/L (13-56); Albumin, Serum 3.8 g/dL (3.2-5.0); Alkaline Phosphatase 65 U/L (45-117); Anion Gap 6 (5-15); BUN 28 mg/dL (7-18); BUN/Creat Ratio 35.8 RATIO (10-20); CRP < 2.90 mg/L (0.0-3.0); Calcium,Total 9.6 mg/dL (8.5-10.1); Chloride 101 mmol/L (98-107); Cholesterol 216 mg/dL (200); Creatinine, Serum 0.78 mg/dL (0.55-1.02); EST Glomerular Filtration Rate 74 mL/min (>60); Est Glom Filt Rate - Afr Amer 90 mL/min (>60); Globulin 3.9 g/dL (2.2-4.2); Glucose 101 mg/dL (74-106); High Density Lipoprotein 78 mg/dL; Potassium 4.3 mmol/L (3.5-5.1); Protein, Total 7.7 g/dL (6.4-8.2); Sodium Level 136 mmol/L (136-145); Triglycerides 76 mg/dL; Very Low Density Lipoprotein 15 mg/dL (5-40)
== END ==
PROVIDERS: PCP Family Medicine; Referring Provider Family Medicine; Visit Provider Family Medicine
DX: I10 Essential (primary) hypertension (principal); E11.9 Type 2 diabetes mellitus without complications; M86.9 Osteomyelitis, unspecified
CPT/HCPCS: 36415; 80053; 80061; 85025; 86140

== ENCOUNTER 2020-08-21 09:45 | Outpatient (RCR) | payer MEDICARE, SELFPAY ==
[2020-07-23 00:31] VITALS: BP 133/54; PULSE 72; RESP 16; TEMP 36.2; BMI 23.6
[2020-07-24 09:33] VITALS: BP 163/63; PULSE 74; RESP 20; TEMP 36; BMI 23.6
--- NOTE | 2020-07-25 13:27 | PN.PCM_ITS ---
(1) Tobacco abuse Status: Resolved Code(s): Z72.0 - Tobacco use (2) Non-pressure chronic ulcer of other part of left foot with fat layer exposed Status: Chronic Code(s): L97.522 - Non-pressure chronic ulcer of other part of left foot with fat layer exposed (3) Osteomyelitis Status: Resolved Qualifiers: Osteomyelitis type: acute hematogenous Osteomyelitis location: foot Laterality: left Qualified Code(s): M86.072 - Acute hematogenous osteomyelitis, left ankle and foot Code(s): M86.9 - Osteomyelitis, unspecified (4) Amputated toe Status: Chronic Qualifiers: Laterality: left Qualified Code(s): S98.132A - Complete traumatic amputation of one left lesser toe, initial encounter Code(s): S98.139A - Complete traumatic amputation of one unspecified lesser toe, initial encounter (5) Type 2 diabetes mellitus Status: Chronic Qualifiers: Diabetes mellitus complication status: with circulatory complication Code(s): E11.9 - Type 2 diabetes mellitus without complications (6) PAD (peripheral artery disease) Status: Chronic Code(s): I73.9 - Peripheral vascular disease, unspecified (7) Peripheral arterial occlusive disease Status: Chronic Code(s): I77.9 - Disorder of arteries and arterioles, unspecified Type of Wound Date of Service: 07/24/20 Chief Complaint: Left foot first digit ulceration. PAD History of Wound: Patient is referral [facility] 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 Patient has a history of smoking. Patient is diabetic as well but states is very well controlled averaging blood sugar in the low 100s. Patient denies any trauma or rubbing to start the wounds. Patient had intervention done by Dr. Nicholson on 06/12/2020. Since then patient has complaints of post procedure reperfusion pain. She states it is worse at night and she has some relief with dangling of the foot. She has had some increase in redness and swelling noted as well. Patient saw Dr. Tenorio June 26, 2020 and was started on 100mg gabapentin TID. She has noticed some improvement in her pain. 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 Patient was hosppitalized 07/07/20 for worsening toe wound and blood in stool. 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 Amputation of digit with debridement of 1st and 5th digit ulcerations was performed 07/08/20. 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 Patient was discharged on levaquin every other day due to impairent of her kidneys. Patient was also discharged on oxycodone. Patient relates improvement of her pain since surgery. Progress of Wound: 4th toe amputation site less macerated. 1st and 5th digit ulcers stable. less erythema/edema Subjective: Patient seen and examined resting comfortably. Patient denies any new pedal complaints. Patient denies any nausea, fever, chills, chest pain, shortness of breath, cough, streaking, purulence, vomiting. Patient relates pain is well controlled - Physical Exam Vital Signs Temp Pulse Resp BP 96.8 F L 74 20 H 163/63 H 07/24/20 09:33 07/24/20 09:33 07/24/20 09:33 07/24/20 09:33 General: Alert, Oriented x3 HEENT: Atraumatic Extremities: No clubbing, No cyanosis, Capillary Refill Less than 3 Seconds, No Calf Tenderness, Diminished Peripheral Pulses, Edema - improved Skin: Ulcer/ Wound - left foot 1st and 5th digit ulceration. No malodor, purulence, probing to bone, streaking, or other signs of infection. Erythema and edema largely resolved. Skin is atrophic and hairless. Granular base with serosanguineous drainage after debridement, Incision - 4th left digit amputation, some maceration and distal aspect mild duskiness, skin not well adhered together to central and distal aspect, - Wound Measurements and Assessment WC - Nurse 1 - General Ulcer Measurement Start: 07/24/20 09:33 Freq: Status: Active Protocol: Activity Type Activity Date Activity User E-Sign Co-Sign Detail Recorded Client Recorded Date Recorded By Document 07/24/20 09:33 DL [id number] 07/24/20 09:43 DL 07/24/20 09:33 Wound Center Nurse 1 [Ulcer Assessment] #3 4th lateral toe/amp site -Current Size (cm) - Length 0.1 -Current Size (cm) - Width 0.1 -Current Size (cm) - Depth 0.1 -Total Square Cm 0.01 -Photo Taken No -Exudate Amt None Present -Wound Margin Distinct, Outline Attached -Structure Exposed N/A -Texture (Dot-wound Skin Appearance) Scarring -Moisture (Dot-wound Skin Appearance No Abnormality ) -Color (Dot-wound Skin Appearance) No Abnormality -Temperature (Dot-wound Skin No Abnormality Appearance) (Pt Warm) -Tenderness on Palpation (Dot-wound No Skin Appearance) -Ulcer Cleansing Wound Cleanser -Foul Odor after Cleansing No -Anesthetic Used 4% Lidocaine Solution #2 L 5th toe -Current Size (cm) - Length 0.5 -Current Size (cm) - Width 0.5 -Current Size (cm) - Depth 0.2 -Total Square Cm 0.25 -Photo Taken No -Exudate Amt None Present -Wound Margin Thickened -Granulation Amt None Present (0 %) -Necrosis Amt Small (1-33%) -Necrotic Tissue Type Adherent Slough -Structure Exposed N/A -Texture (Dot-wound Skin Appearance) Scarring -Moisture (Dot-wound Skin Appearance Dry/Scaly ) -Color (Dot-wound Skin Appearance) No Abnormality -Temperature (Dot-wound Skin No Abnormality Appearance) (Pt Warm) -Tenderness on Palpation (Dot-wound No Skin Appearance) -Ulcer Cleansing Wound Cleanser -Foul Odor after Cleansing No -Anesthetic Used 4% Lidocaine Solution #1 L Grt Toe -Current Size (cm) - Length 0.7 -Current Size (cm) - Width 0.6 -Current Size (cm) - Depth 0.1 -Total Square Cm 0.42 -Photo Taken No -Exudate Amt None Present -Wound Margin Thickened -Granulation Amt None Present (0 %) -Necrosis Amt Large (67-100%) -Necrotic Tissue Type Adherent Slough -Structure Exposed N/A -Texture (Dot-wound Skin Appearance) Scarring -Moisture (Dot-wound Skin Appearance Dry/Scaly ) -Color (Dot-wound Skin Appearance) No Abnormality -Temperature (Dot-wound Skin No Abnormality Appearance) (Pt Warm) -Tenderness on Palpation (Dot-wound No Skin Appearance) -Ulcer Cleansing Wound Cleanser -Foul Odor after Cleansing No -Anesthetic Used 4% Lidocaine Solution WC - Nurse 2 - General Ulcer CM Notes Start: 07/24/20 09:33 Freq: Status: Active Protocol: Activity Type Activity Date Activity User E-Sign Co-Sign Detail Recorded Client Recorded Date Recorded By Document 07/24/20 09:48 RICHI [id number] 07/24/20 10:02 RICHI 07/24/20 09:48 Wound Center Nurse 2 [Procedure/Treatment] #3 4th lateral toe/amp site -Time 09:49 -Correct Patient No -Correct Side, Site, Position No -Correct Procedure No -Procedure Performed No -Tunneling No -Undermining/Tunneling No -Circular Undermining No -Wound/Ulcer Outcome Not Healed -Ulcer Cleansing Rinsed/ Irrigated with Saline -Foul Odor after Cleansing No -Bioengineered Tissue No -Bleeding Controlled with Pressure -Offloading Yes -Type of Offloading Surgical Shoe -Treatment Response Procedure Tolerated Well -Debridement - Subq, 1st 20sq cm No #2 L 5th toe -Time 09:58 -Correct Patient Yes -Correct Side, Site, Position Yes -Correct Procedure Yes -Procedure Performed Yes -Type of Procedure Debridement -Clinical Debridement Subcutaneous -Tissue Removed Subcutaneous -Post Debridement (cm) - Length 0.8 -Post Debridement (cm) - Width 0.6 -Post Debridement (cm) - Depth 0.2 -Total Square (Post) (cm) 0.48 -Area of Debridement (cm) - Length 0.8 -Area of Debridement (cm) - Width 0.6 -Total Square (Area) (cm) 0.48 -Tunneling No -Undermining/Tunneling No -Circular Undermining No -Wound/Ulcer Outcome Not Healed -Ulcer Cleansing Rinsed/ Irrigated with Saline -Foul Odor after Cleansing No -Bioengineered Tissue No -Bleeding Controlled with Pressure -Offloading Yes -Type of Offloading Surgical Shoe -Treatment Response Procedure Tolerated Well -Debridement - Subq, 1st 20sq cm Yes #1 L Grt Toe -Time 10:01 -Correct Patient Yes -Correct Side, Site, Position Yes -Correct Procedure Yes -Procedure Performed Yes -Type of Procedure Debridement -Clinical Debridement Subcutaneous -Tissue Removed Subcutaneous -Post Debridement (cm) - Length 1 -Post Debridement (cm) - Width 0.7 -Post Debridement (cm) - Depth 0.1 -Total Square (Post) (cm) 0.7 -Area of Debridement (cm) - Length 1 -Area of Debridement (cm) - Width 0.7 -Total Square (Area) (cm) 0.7 -Tunneling No -Undermining/Tunneling No -Circular Undermining No -Wound/Ulcer Outcome Not Healed -Ulcer Cleansing Rinsed/ Irrigated with Saline -Foul Odor after Cleansing No -Bioengineered Tissue No -Bleeding Controlled with Pressure -Offloading Yes -Type of Offloading Surgical Shoe -Treatment Response Procedure Tolerated Well -Debridement - Subq, 1st 20sq cm No [See Physician Procedure note for Specifics] Pain Scale: 0-10 Numeric [Pain] -Is Patient Pain Free? Yes - Nurse 3 - General Ulcer D/C NN Start: 07/24/20 09:33 Freq: Status: Active Protocol: Activity Type Activity Date Activity User E-Sign Co-Sign Detail Recorded Client Recorded Date Recorded By Document 07/24/20 10:20 DL [id number] 07/24/20 10:21 DL 07/24/20 10:20 Wound Care Nurse 3 [Wound Dressing] #3 4th lateral toe/amp site -Ulcer Cleansing Rinsed/ Irrigated with Saline -Foul Odor after Cleansing No -Other Dressing aquacel ag -Primary Dressing Covered/Secured Dry Gauze & with Roll Gauze, Secured with Tape #2 L 5th toe -Ulcer Cleansing Rinsed/ Irrigated with Saline -Foul Odor after Cleansing No -Other Dressing hydrogel -Primary Dressing Covered/Secured Dry Gauze & with Roll Gauze, Secured with Tape #1 L Grt Toe -Ulcer Cleansing Rinsed/ Irrigated with Saline -Foul Odor after Cleansing No -Other Dressing hydrogel -Primary Dressing Covered/Secured Dry Gauze & with Roll Gauze, Secured with Tape [Post Procedure Tolerated] -Treatment Response Procedure Tolerated Well Pain Scale: 0-10 Numeric [Pain] -Is Patient Pain Free? Yes - Visit Discharge [Visit Discharge Information] -Discharge Condition Stable -Ambulatory Status Ambulatory, Walker -Transportation Private Auto [Facility Notification] -Facility Type Home Health -Orders Sent Yes Musculoskeletal: Tenderness Neurological: Sensory exam intact to light touch and pain Psych/Mental Status: Normal Affect, Appropriate Debridement Note Post-Debridement Measurements/Treatment - Nurse 2 - General Ulcer CM Notes Start: 07/24/20 09:33 Freq: Status: Active Protocol: Activity Type Activity Date Activity User E-Sign Co-Sign Detail Recorded Client Recorded Date Recorded By Document 07/24/20 09:48 RICHI [id number] 07/24/20 10:02 JF 07/24/20 09:48 Wound Center Nurse 2 #3 4th lateral toe/amp site -Time 09:49 -Correct Patient No -Correct Side, Site, Position No -Correct Procedure No -Procedure Performed No -Tunneling No -Undermining/Tunneling No -Circular Undermining No -Wound/Ulcer Outcome Not Healed -Ulcer Cleansing Rinsed/ Irrigated with Saline -Foul Odor after Cleansing No -Bioengineered Tissue No -Bleeding Controlled with Pressure -Offloading Yes -Type of Offloading Surgical Shoe -Treatment Response Procedure Tolerated Well -Debridement - Subq, 1st 20sq cm No #2 L 5th toe -Time 09:58 -Correct Patient Yes -Correct Side, Site, Position Yes -Correct Procedure Yes -Procedure Performed Yes -Type of Procedure Debridement -Clinical Debridement Subcutaneous -Tissue Removed Subcutaneous -Post Debridement (cm) - Length 0.8 -Post Debridement (cm) - Width 0.6 -Post Debridement (cm) - Depth 0.2 -Total Square (Post) (cm) 0.48 -Area of Debridement (cm) - Length 0.8 -Area of Debridement (cm) - Width 0.6 -Total Square (Area) (cm) 0.48 -Tunneling No -Undermining/Tunneling No -Circular Undermining No -Wound/Ulcer Outcome Not Healed -Ulcer Cleansing Rinsed/ Irrigated with Saline -Foul Odor after Cleansing No -Bioengineered Tissue No -Bleeding Controlled with Pressure -Offloading Yes -Type of Offloading Surgical Shoe -Treatment Response Procedure Tolerated Well -Debridement - Subq, 1st 20sq cm Yes #1 L Grt Toe -Time 10:01 -Correct Patient Yes -Correct Side, Site, Position Yes -Correct Procedure Yes -Procedure Performed Yes -Type of Procedure Debridement -Clinical Debridement Subcutaneous -Tissue Removed Subcutaneous -Post Debridement (cm) - Length 1 -Post Debridement (cm) - Width 0.7 -Post Debridement (cm) - Depth 0.1 -Total Square (Post) (cm) 0.7 -Area of Debridement (cm) - Length 1 -Area of Debridement (cm) - Width 0.7 -Total Square (Area) (cm) 0.7 -Tunneling No -Undermining/Tunneling No -Circular Undermining No -Wound/Ulcer Outcome Not Healed -Ulcer Cleansing Rinsed/ Irrigated with Saline -Foul Odor after Cleansing No -Bioengineered Tissue No -Bleeding Controlled with Pressure -Offloading Yes -Type of Offloading Surgical Shoe -Treatment Response Procedure Tolerated Well -Debridement - Subq, 1st 20sq cm No Pain Scale: 0-10 Numeric Is Patient Pain Free? Yes - Nurse 3 - General Ulcer D/C NN Start: 07/24/20 09:33 Freq: Status: Active Protocol: Activity Type Activity Date Activity User E-Sign Co-Sign Detail Recorded Client Recorded Date Recorded By Document 07/24/20 10:20 DL [id number] 07/24/20 10:21 DL 07/24/20 10:20 Wound Care Nurse 3 #3 4th lateral toe/amp site -Ulcer Cleansing Rinsed/ Irrigated with Saline -Foul Odor after Cleansing No -Other Dressing aquacel ag -Primary Dressing Covered/Secured with Dry Gauze & Roll Gauze, Secured with Tape #2 L 5th toe -Ulcer Cleansing Rinsed/ Irrigated with Saline -Foul Odor after Cleansing No -Other Dressing hydrogel -Primary Dressing Covered/Secured with Dry Gauze & Roll Gauze, Secured with Tape #1 L Grt Toe -Ulcer Cleansing Rinsed/ Irrigated with Saline -Foul Odor after Cleansing No -Other Dressing hydrogel -Primary Dressing Covered/Secured with Dry Gauze & Roll Gauze, Secured with Tape Treatment Response Procedure Tolerated Well Pain Scale: 0-10 Numeric Is Patient Pain Free? Yes - Visit Discharge Discharge Condition Stable Ambulatory Status Ambulatory, Walker Transportation Private [facility] [place] Facility Type Home Health Orders Sent Yes Wound debrided: hallux Laterality: Left Wound Grade/Stage: pitt 1 Type of Debridement: Excisional debridement Anesthesia Used: 4% Lidocaine Solution Depth: in the subcutaneous layer Percentage of wound debrided: 100 Instrument Used: 3mm curette Tissue Removed: Tissue removed includes fibrous, devitalized, biofilm, and slough tissue Severity: Fat Layer Exposed Amount of bleeding with debridement: Mild Bleeding Controlled with: Pressure Patient tolerated procedure well - Additional Wound Wound debrided: 5th digit Laterality: Left Wound Grade/Stage: pitt 1 Type of Debridement: Excisional debridement Percentage of wound debrided: 100 Instrument Used: 3mm curette Tissue Removed: Tissue removed includes fibrous, devitalized, biofilm, and slough tissue Severity: Fat Layer Exposed Amount of bleeding with debridement: Mild Bleeding Controlled with: Pressure Patient tolerated procedure: Patient tolerated procedure well Assessment/Plan Active Problems (Last Reviewed 07/07/20 @ 17:[address] aCthie Das, DO) Non-pressure chronic ulcer of other part of left foot with fat layer exposed (Chronic) Amputated toe (Chronic) Type 2 diabetes mellitus (Chronic) PAD (peripheral artery disease) (Chronic) Peripheral arterial occlusive disease (Chronic) Assessment: Left first digit plantar medial ulcer. Left fifth digit lateral ulcer. 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 Left posterior lateral heel fissure ulcer-healed. Cellulitis left lower extremity- resolved. Peripheral vascular disease status post intervention 06/12/[address] Nicholson. Diabetes. history tobacco abuse Plan: Patient seen and examined. Patient is referral from Dr. Escudero's [facility] for chronic ulcerations first and fifth toes of left foot. Patient has peripheral vascular disease. Patient has been seeing Dr. Nicholson for this. Patient had intervention on 06/12/2020. Since then patient has had some reperfusion pain with swelling that is worse at night. Patient followed up with Dr Nicholson with no other intervention planned. This pain has persisted. Patient saw Dr. Tenorio on 06/26/2020 and he prescribed gabapentin which patient relates helps. Patient has recent LEAS prior to intervention with Dr. Nicholson with left monophasic pulses with an JENY of 0.59 from the PT artery and a TBI of 0.12. On the right side the DP and PT are monophasic as well with an JENY of 0.53 on the PT artery and 0.75 to the DP artery and a TBI of 0.3. 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 Patient was hospitalized on 07/07/20 for worsening 4th toe ulceration and blood in stool. Patient was noted to ahve rapid increase in gangrene to 4th digit. Amputation of 4th digit and debridement of 1st and 5th digit was performed 07/08/20. OM was confirmed with PsAg. Patient was discharged on Levaquin every other day due to kidney function. Patient was also given Rx for oxycodone. Left first toe and fifth toe were sharply debrided with a curette without incident as noted in the clinical section after verbal consent was obtained. Sites were dressed with hydrogel to 1st and 5th toe and silver alginate to ampuation site. Heel fissure has healed. Reviewed proper wound care with patient. Discussed with the patient the importance of offloading the sites with wide enough shoe gear if she is to be wearing shoes, proper diet, good blood sugar control. Patient has offloading boot. Patient also complains of pain in her toes to her left foot. Patient is taking gabaentin. She asks for a refill of her oxycodone prescribed during her hosital stay after toe amputation. [facility] refill was sent to her [facility]. Discussed possibility of amutation site not healing. Will remove sutures next week and see if it has healed or if it will need to heal by secondary intention. All questions were answered patient satisfaction. Discussed with the patient all concerning signs and symptoms to watch out for and to contact office if he either presents. Patient's follow-up in 1 week. This note was generated with [employer] dictation software. It may contain incorrect words, spelling, and punctuation that were not noted in checking the note before signing.
[2020-07-31 09:48] VITALS: BP 118/65; PULSE 64; RESP 18; TEMP 36.2; BMI 23.6
--- NOTE | 2020-07-31 12:13 | PN.PCM_ITS ---
(1) Tobacco abuse Status: Resolved Code(s): Z72.0 - Tobacco use (2) Non-pressure chronic ulcer of other part of left foot with fat layer exposed Status: Chronic Code(s): L97.522 - Non-pressure chronic ulcer of other part of left foot with fat layer exposed (3) Osteomyelitis Status: Resolved Qualifiers: Osteomyelitis type: acute hematogenous Osteomyelitis location: foot Laterality: left Qualified Code(s): M86.072 - Acute hematogenous osteomyelitis, left ankle and foot Code(s): M86.9 - Osteomyelitis, unspecified (4) Amputated toe Status: Chronic Qualifiers: Laterality: left Qualified Code(s): S98.132A - Complete traumatic amputation of one left lesser toe, initial encounter Code(s): S98.139A - Complete traumatic amputation of one unspecified lesser toe, initial encounter (5) Type 2 diabetes mellitus Status: Chronic Qualifiers: Diabetes mellitus complication status: with circulatory complication Code(s): E11.9 - Type 2 diabetes mellitus without complications (6) PAD (peripheral artery disease) Status: Chronic Code(s): I73.9 - Peripheral vascular disease, unspecified (7) Peripheral arterial occlusive disease Status: Chronic Code(s): I77.9 - Disorder of arteries and arterioles, unspecified Type of Wound Date of Service: 07/31/20 Chief Complaint: Left foot first digit ulceration. PAD History of Wound: Patient is referral [facility] 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 Patient has a history of smoking. Patient is diabetic as well but states is very well controlled averaging blood sugar in the low 100s. Patient denies any trauma or rubbing to start the wounds. Patient had intervention done by Dr. Nicholson on 06/12/2020. Since then patient has complaints of post procedure reperfusion pain. She states it is worse at night and she has some relief with dangling of the foot. She has had some increase in redness and swelling noted as well. Patient saw Dr. Tenorio June 26, 2020 and was started on 100mg gabapentin TID. She has noticed some improvement in her pain. 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 Patient was hosppitalized 07/07/20 for worsening toe wound and blood in stool. 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 Amputation of digit with debridement of 1st and 5th digit ulcerations was performed 07/08/20. 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 Patient was discharged on levaquin every other day due to impairent of her kidneys. Patient was also discharged on oxycodone. Patient relates improvement of her pain since surgery. Patient relates she is no more taking strong pain meds. Progress of Wound: 4th toe amputation some dehiscence with wound. 1st and 5th digit ulcers stable. erythema/edema resolved Subjective: Patient seen and examined resting comfortably. Patient denies any new pedal complaints. Patient denies any nausea, fever, chills, chest pain, shortness of breath, cough, streaking, purulence, vomiting. - Physical Exam Vital Signs Temp Pulse Resp BP 97.1 F L 64 18 118/65 07/31/20 09:48 07/31/20 09:48 07/31/20 09:48 07/31/20 09:48 General: Alert, Oriented x3 HEENT: Atraumatic Extremities: No clubbing, No cyanosis, No edema, Capillary Refill Less than 3 Seconds, No Calf Tenderness, Diminished Peripheral Pulses, Tenderness - To ulceration sites especially fifth digit Skin: Ulcer/ Wound - Medial hallux and lateral fifth digit. No malodor, erythema, purulence, probing to bone, streaking, or other signs of infection. Skin is atrophic and hairless. Granular base wound base is dry, Incision - Fourth digit amputation site. Sutures were removed today. There is some dehiscence noted with wound noted. Fibrotic tissue base. Does not probe to bone or deep. Superficial wound no necrosis. Serosanguineous drainage noted. Wound Measurements and Assessment WC - Nurse 1 - General Ulcer Measurement Start: 07/24/20 09:33 Freq: Status: Active Protocol: Activity Type Activity Date Activity User E-Sign Co-Sign Detail Recorded Client Recorded Date Recorded By Document 07/31/20 09:48 MW [id number] 07/31/20 10:00 MW 07/31/20 09:48 Wound Center Nurse 1 [Ulcer Assessment] #3 4th lateral toe/amp site -Combined with other wound No -Current Size (cm) - Length 0.1 -Current Size (cm) - Width 0.1 -Current Size (cm) - Depth 0.1 -Total Square Cm 0.01 -Photo Taken No -Epithelialization None Present -Tunneling No -Undermining/Tunneling No -Circular Undermining No -Granulation Amt None Present (0 %) -Slough/Fibrin Yes -Necrosis Amt Large (67-100%) -Necrotic Tissue Type Adherent Slough -Structure Exposed N/A -Texture (Dot-wound Skin Appearance) Assessed, Localized Edema ,Scarring -Moisture (Dot-wound Skin Appearance Assessed, ) Maceration -Color (Dot-wound Skin Appearance) No Abnormality, Assessed -Temperature (Dot-wound Skin No Abnormality Appearance) (Pt Warm) -Tenderness on Palpation (Dot-wound No Skin Appearance) -Ulcer Cleansing Rinsed/ Irrigated with Saline -Foul Odor after Cleansing No -Anesthetic Used 4% Lidocaine Solution #2 L 5th toe -Combined with other wound No -Current Size (cm) - Length 0.8 -Current Size (cm) - Width 0.6 -Current Size (cm) - Depth 0.3 -Total Square Cm 0.48 -Photo Taken No -Epithelialization None Present -Tunneling No -Undermining/Tunneling No -Circular Undermining No -Exudate Amt Small -Exudate Type Serosanguineous -Wound Margin Thickened -Granulation Amt None Present (0 %) -Granulation Quality N/A -Slough/Fibrin Yes -Necrosis Amt Large (67-100%) -Necrotic Tissue Type Adherent Slough -Structure Exposed N/A -Texture (Dot-wound Skin Appearance) No Abnormality, Scarring -Moisture (Dot-wound Skin Appearance Assessed,Dry/ ) Scaly -Color (Dot-wound Skin Appearance) No Abnormality, Assessed -Temperature (Dot-wound Skin No Abnormality Appearance) (Pt Warm) -Tenderness on Palpation (Dot-wound Yes Skin Appearance) -Ulcer Cleansing Rinsed/ Irrigated with Saline -Foul Odor after Cleansing No -Anesthetic Used 5% Lidocaine Gel #1 L Grt Toe -Combined with other wound No -Current Size (cm) - Length 1.0 -Current Size (cm) - Width 0.7 -Current Size (cm) - Depth 0.1 -Total Square Cm 0.70 -Photo Taken No -Epithelialization None Present -Undermining/Tunneling No -Circular Undermining No -Exudate Amt Small -Exudate Type Serosanguineous -Wound Margin Thickened -Granulation Amt None Present (0 %) -Granulation Quality N/A -Slough/Fibrin Yes -Necrosis Amt Large (67-100%) -Necrotic Tissue Type Adherent Slough -Structure Exposed N/A -Texture (Dot-wound Skin Appearance) Assessed, Scarring -Moisture (Dot-wound Skin Appearance Assessed,Dry/ ) Scaly -Color (Dot-wound Skin Appearance) No Abnormality, Assessed -Temperature (Dot-wound Skin No Abnormality Appearance) (Pt Warm) -Tenderness on Palpation (Dot-wound Yes Skin Appearance) -Ulcer Cleansing Rinsed/ Irrigated with Saline -Foul Odor after Cleansing No -Anesthetic Used 5% Lidocaine Gel [Edema Assessment] -Lower Limb Edema Present No WC - Nurse 2 - General Ulcer CM Notes Start: 07/24/20 09:33 Freq: Status: Active Protocol: Activity Type Activity Date Activity User E-Sign Co-Sign Detail Recorded Client Recorded Date Recorded By Document 07/31/20 10:12 [email or web address] [id number] 07/31/20 10:28 RICHI 07/31/20 10:12 Wound Center Nurse 2 [Procedure/Treatment] #3 4th lateral toe/amp site -Time 10:20 -Correct Patient Yes -Correct Side, Site, Position Yes -Correct Procedure Yes -Procedure Performed Yes -Type of Procedure Debridement -Clinical Debridement Subcutaneous -Tissue Removed Subcutaneous -Post Debridement (cm) - Length 2.5 -Post Debridement (cm) - Width 0.7 -Post Debridement (cm) - Depth 0.2 -Total Square (Post) (cm) 1.75 -Area of Debridement (cm) - Length 2.5 -Area of Debridement (cm) - Width 0.7 -Total Square (Area) (cm) 1.75 -Tunneling No -Undermining/Tunneling No -Circular Undermining No -Wound/Ulcer Outcome Not Healed -Ulcer Cleansing Rinsed/ Irrigated with Saline -Foul Odor after Cleansing No -Bioengineered Tissue No -Bleeding Controlled with Pressure -Offloading Yes -Type of Offloading Surgical Shoe -Treatment Response Procedure Tolerated Well -Debridement - Subq, 1st 20sq cm Yes #2 L 5th toe -Time 10:20 -Correct Patient Yes -Correct Side, Site, Position Yes -Correct Procedure Yes -Procedure Performed Yes -Type of Procedure Debridement -Clinical Debridement Subcutaneous -Tissue Removed Subcutaneous -Post Debridement (cm) - Length 0.9 -Post Debridement (cm) - Width 0.5 -Post Debridement (cm) - Depth 0.2 -Total Square (Post) (cm) 0.45 -Area of Debridement (cm) - Length 0.9 -Area of Debridement (cm) - Width 0.5 -Total Square (Area) (cm) 0.45 -Tunneling No -Undermining/Tunneling No -Circular Undermining No -Wound/Ulcer Outcome Healed- Surgical Closure -Ulcer Cleansing Rinsed/ Irrigated with Saline -Foul Odor after Cleansing No -Bioengineered Tissue No -Bleeding Controlled with Pressure -Offloading Yes -Type of Offloading Surgical Shoe -Treatment Response Procedure Tolerated Well -Debridement - Subq, 1st 20sq cm No #1 L Grt Toe -Time 10:26 -Correct Patient Yes -Correct Side, Site, Position Yes -Correct Procedure Yes -Procedure Performed Yes -Type of Procedure Debridement -Clinical Debridement Subcutaneous -Tissue Removed Subcutaneous -Post Debridement (cm) - Length 1 -Post Debridement (cm) - Width 0.6 -Post Debridement (cm) - Depth 0.2 -Total Square (Post) (cm) 0.6 -Area of Debridement (cm) - Length 1 -Area of Debridement (cm) - Width 0.6 -Total Square (Area) (cm) 0.6 -Tunneling No -Undermining/Tunneling No -Circular Undermining No -Wound/Ulcer Outcome Not Healed -Ulcer Cleansing Rinsed/ Irrigated with Saline -Foul Odor after Cleansing No -Bioengineered Tissue No -Bleeding Controlled with Pressure -Offloading Yes -Type of Offloading Surgical Shoe -Treatment Response Procedure Tolerated Well -Debridement - Subq, 1st 20sq cm No [See Physician Procedure note for Specifics] Pain Scale: 0-10 Numeric [Pain] -Is Patient Pain Free? Yes WC - Nurse 3 - General Ulcer D/C NN Start: 07/24/20 09:33 Freq: Status: Active Protocol: Activity Type Activity Date Activity User E-Sign Co-Sign Detail Recorded Client Recorded Date Recorded By Document 07/31/20 10:37 MS [id number] 07/31/20 10:38 MS 07/31/20 10:37 Wound Care Nurse 3 [Wound Dressing] #3 4th lateral toe/amp site -Ulcer Cleansing Rinsed/ Irrigated with Saline -Foul Odor after Cleansing No -Primary Dressing Applied C Hydrogel ($) -Other Dressing HYDROGEL, ADAPTIC -Primary Dressing Covered/Secured Dry Gauze, with Secured with Tape #2 L 5th toe -Ulcer Cleansing Rinsed/ Irrigated with Saline -Foul Odor after Cleansing No -Primary Dressing Applied C Hydrogel ($) -Other Dressing ADAPTIC -Primary Dressing Covered/Secured Dry Gauze, with Secured with Tape #1 L Grt Toe -Ulcer Cleansing Rinsed/ Irrigated with Saline -Primary Dressing Applied C Hydrogel ($) -Other Dressing ADAPTIC -Primary Dressing Covered/Secured Dry Gauze, with Secured with Tape WC - Visit Discharge [Visit Discharge Information] -Discharge Condition Stable -Ambulatory Status Ambulatory, Walker -Medication Reconcilliation completed No & provided to patient/care provider -Clinical Summary of Care Provided Yes Musculoskeletal: Tenderness - To ulcerations especially fifth digit Neurological: - - Lack of epicritic sensation consistent with neuropathy Psych/Mental Status: Normal Affect, Appropriate Debridement Note Post-Debridement Measurements/Treatment - Nurse 2 - General Ulcer CM Notes Start: 07/24/20 09:33 Freq: Status: Active Protocol: Activity Type Activity Date Activity User E-Sign Co-Sign Detail Recorded Client Recorded Date Recorded By Document 07/24/20 09:48 [id number] 07/24/20 10:02 Document 07/31/20 10:12 [id number] 07/31/20 10:28 07/24/20 07/31/20 09:48 10:12 Wound Center Nurse 2 #3 4th lateral toe/amp site -Time 09:49 10:20 -Correct Patient No Yes -Correct Side, Site, Position No Yes -Correct Procedure No Yes -Procedure Performed No Yes -Type of Procedure Debridement -Clinical Debridement Subcutaneous -Tissue Removed Subcutaneous -Post Debridement (cm) - Length 2.5 -Post Debridement (cm) - Width 0.7 -Post Debridement (cm) - Depth 0.2 -Total Square (Post) (cm) 1.75 -Area of Debridement (cm) - Length 2.5 -Area of Debridement (cm) - Width 0.7 -Total Square (Area) (cm) 1.75 -Tunneling No No -Undermining/Tunneling No No -Circular Undermining No No -Wound/Ulcer Outcome Not Healed Not Healed -Ulcer Cleansing Rinsed/ Rinsed/ Irrigated with Irrigated with Saline Saline -Foul Odor after Cleansing No No -Bioengineered Tissue No No -Bleeding Controlled with Pressure Pressure -Offloading Yes Yes -Type of Offloading Surgical Shoe Surgical Shoe -Treatment Response Procedure Procedure Tolerated Well Tolerated Well -Debridement - Subq, 1st 20sq cm No Yes #2 L 5th toe -Time 09:58 10:20 -Correct Patient Yes Yes -Correct Side, Site, Position Yes Yes -Correct Procedure Yes Yes -Procedure Performed Yes Yes -Type of Procedure Debridement Debridement -Clinical Debridement Subcutaneous Subcutaneous -Tissue Removed Subcutaneous Subcutaneous -Post Debridement (cm) - Length 0.8 0.9 -Post Debridement (cm) - Width 0.6 0.5 -Post Debridement (cm) - Depth 0.2 0.2 -Total Square (Post) (cm) 0.48 0.45 -Area of Debridement (cm) - Length 0.8 0.9 -Area of Debridement (cm) - Width 0.6 0.5 -Total Square (Area) (cm) 0.48 0.45 -Tunneling No No -Undermining/Tunneling No No -Circular Undermining No No -Wound/Ulcer Outcome Not Healed Healed- Surgical Closure -Ulcer Cleansing Rinsed/ Rinsed/ Irrigated with Irrigated with Saline Saline -Foul Odor after Cleansing No No -Bioengineered Tissue No No -Bleeding Controlled with Pressure Pressure -Offloading Yes Yes -Type of Offloading Surgical Shoe Surgical Shoe -Treatment Response Procedure Procedure Tolerated Well Tolerated Well -Debridement - Subq, 1st 20sq cm Yes No #1 L Grt Toe -Time 10:01 10:26 -Correct Patient Yes Yes -Correct Side, Site, Position Yes Yes -Correct Procedure Yes Yes -Procedure Performed Yes Yes -Type of Procedure Debridement Debridement -Clinical Debridement Subcutaneous Subcutaneous -Tissue Removed Subcutaneous Subcutaneous -Post Debridement (cm) - Length 1 1 -Post Debridement (cm) - Width 0.7 0.6 -Post Debridement (cm) - Depth 0.1 0.2 -Total Square (Post) (cm) 0.7 0.6 -Area of Debridement (cm) - Length 1 1 -Area of Debridement (cm) - Width 0.7 0.6 -Total Square (Area) (cm) 0.7 0.6 -Tunneling No No -Undermining/Tunneling No No -Circular Undermining No No -Wound/Ulcer Outcome Not Healed Not Healed -Ulcer Cleansing Rinsed/ Rinsed/ Irrigated with Irrigated with Saline Saline -Foul Odor after Cleansing No No -Bioengineered Tissue No No -Bleeding Controlled with Pressure Pressure -Offloading Yes Yes -Type of Offloading Surgical Shoe Surgical Shoe -Treatment Response Procedure Procedure Tolerated Well Tolerated Well -Debridement - Subq, 1st 20sq cm No No Pain Scale: 0-10 Numeric Is Patient Pain Free? Yes Yes - Nurse 3 - General Ulcer D/C NN Start: 07/24/20 09:33 Freq: Status: Active Protocol: Activity Type Activity Date Activity User E-Sign Co-Sign Detail Recorded Client Recorded Date Recorded By Document 07/24/20 10:20 DL [id number] 07/24/20 10:21 DL Document 07/31/20 10:37 MS [id number] 07/31/20 10:38 MS 07/24/20 07/31/20 10:20 10:37 Wound Care Nurse 3 #3 4th lateral toe/amp site -Ulcer Cleansing Rinsed/ Rinsed/ Irrigated with Irrigated with Saline Saline -Foul Odor after Cleansing No No -Primary Dressing Applied C Hydrogel ($) -Other Dressing aquacel ag HYDROGEL, ADAPTIC -Primary Dressing Covered/Secured with Dry Gauze & Dry Gauze, Roll Gauze, Secured with Secured with Tape Tape #2 L 5th toe -Ulcer Cleansing Rinsed/ Rinsed/ Irrigated with Irrigated with Saline Saline -Foul Odor after Cleansing No No -Primary Dressing Applied C Hydrogel ($) -Other Dressing hydrogel ADAPTIC -Primary Dressing Covered/Secured with Dry Gauze & Dry Gauze, Roll Gauze, Secured with Secured with Tape Tape #1 L Grt Toe -Ulcer Cleansing Rinsed/ Rinsed/ Irrigated with Irrigated with Saline Saline -Foul Odor after Cleansing No -Primary Dressing Applied C Hydrogel ($) -Other Dressing hydrogel ADAPTIC -Primary Dressing Covered/Secured with Dry Gauze & Dry Gauze, Roll Gauze, Secured with Secured with Tape Tape Treatment Response Procedure Tolerated Well Pain Scale: 0-10 Numeric Is Patient Pain Free? Yes WC - Visit Discharge Discharge Condition Stable Stable Ambulatory Status Ambulatory, Ambulatory, Walker Walker Transportation Private Auto Medication Reconcilliation completed & No provided to patient/care provider Clinical Summary of Care Provided Yes Facility Type Home Health Orders Sent Yes Wound debrided: Fifth digit lateral Laterality: Left Wound Grade/Stage: Luciano 1 Type of Debridement: Excisional debridement Anesthesia Used: 4% Lidocaine Solution Depth: in the subcutaneous layer Percentage of wound debrided: 100 Instrument Used: 5mm curette Tissue Removed: Tissue removed includes fibrous, devitalized, biofilm, and slough tissue Severity: Fat Layer Exposed Amount of bleeding with debridement: Mild Bleeding Controlled with: Pressure Patient tolerated procedure well - Additional Wound Wound debrided: Medial hallux Laterality: Left Wound Grade/Stage: Luciano 1 Type of Debridement: Excisional debridement Anesthesia Used: 4% Lidocaine Solution Depth: in the subcutaneous layer Percentage of wound debrided: 100 Instrument Used: 5mm curette Tissue Removed: Tissue removed includes fibrous, devitalized, biofilm, and slough tissue Severity: Fat Layer Exposed Amount of bleeding with debridement: Mild Bleeding Controlled with: Pressure Patient tolerated procedure: Patient tolerated procedure well - Additional Wound Wound debrided: Fourth digit amputation site Laterality: Left Wound Grade/Stage: Luciano 1 Type of Debridement: Excisional debridement Anesthesia Used: 4% Lidocaine Solution Depth: in the subcutaneous layer Percentage of wound debrided: 100 Instrument Used: 5mm curette, #15 blade, Forceps Tissue Removed: Tissue removed includes fibrous, devitalized, biofilm, and slough tissue Severity: Fat Layer Exposed Amount of bleeding with debridement: Mild Bleeding Controlled with: Pressure Patient tolerated procedure: Patient tolerated procedure well Assessment/Plan Active Problems (Last Reviewed 07/07/20 @ 17:[address] 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) Amputated toe (Chronic) Type 2 diabetes mellitus (Chronic) PAD (peripheral artery disease) (Chronic) Peripheral arterial occlusive disease (Chronic) Assessment: Left first digit plantar medial ulcer. Left fifth digit lateral ulcer. Left fourth digit amputation site ulceration. 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 Peripheral vascular disease status post intervention 06/12/[address] Nicholson. Diabetes. history tobacco abuse Plan: Patient seen and examined with daughter present. Patient is referral from Dr. Escudero's [facility] ulcerations first and fifth toes of left foot. Patient has peripheral vascular disease. Patient has been seeing Dr. Nicholson for this. Patient had intervention on 06/12/2020. Since then patient has had some reperfusion pain with swelling that is worse at night. Patient followed up with Dr Nicholson with no other intervention planned. This pain has persisted. Patient saw Dr. Tenorio on 06/26/2020 and he prescribed gabapentin which patient relates helps. Patient has recent LEAS prior to intervention with Dr. Nicholson with left monophasic pulses with an JENY of 0.59 from the PT artery and a TBI of 0.12. On the right side the DP and PT are monophasic as well with an JENY of 0.53 on the PT artery and 0.75 to the DP artery and a TBI of 0.3. 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 Patient was hospitalized on 07/07/20 for worsening 4th toe ulceration and blood in stool. Patient was noted to ahve rapid increase in gangrene to 4th digit. Amputation of 4th digit and debridement of 1st and 5th digit was performed 07/08/20. OM was confirmed with PsAg. Patient was discharged on Levaquin every other day due to kidney function she has since finished. Patient was also given Rx for oxycodone. Left first toe and fifth toe and fourth toe amputation site were sharply debrided after verbal consent was obtained. Sites were dressed with hydrogel to to all wounds with Adaptic placed over top to help maintain moisture level. Heel fissure has healed. Reviewed proper wound care with patient. Discussed with the patient the importance of offloading the sites with wide enough shoe gear if she is to be wearing shoes, proper diet, good blood sugar control. Patient has offloading boot. Patient also complains of pain in her toes to her left foot. Patient is taking gabaentin. Sutures were removed to amputation site with noted mild dehiscence and ulceration along incision site. No areas of necrosis noted. All questions were answered patient satisfaction. Discussed with the patient all concerning signs and symptoms to watch out for and to contact office if he either presents. Patient's follow-up in 1 week. This note was generated with [employer] dictation software. It may contain incorrect words, spelling, and punctuation that were not noted in checking the note before signing.
[2020-08-07 09:33] VITALS: RESP 16; TEMP 36.3; BMI 23.6
--- NOTE | 2020-08-07 10:35 | PN.PCM_ITS ---
(1) Tobacco abuse Status: Resolved Code(s): Z72.0 - Tobacco use (2) Non-pressure chronic ulcer of other part of left foot with fat layer exposed Status: Chronic Code(s): L97.522 - Non-pressure chronic ulcer of other part of left foot with fat layer exposed (3) Osteomyelitis Status: Resolved Qualifiers: Osteomyelitis type: acute hematogenous Osteomyelitis location: foot Laterality: left Qualified Code(s): M86.072 - Acute hematogenous osteomyelitis, left ankle and foot Code(s): M86.9 - Osteomyelitis, unspecified (4) Amputated toe Status: Chronic Qualifiers: Laterality: left Qualified Code(s): S98.132A - Complete traumatic amputation of one left lesser toe, initial encounter Code(s): S98.139A - Complete traumatic amputation of one unspecified lesser toe, initial encounter (5) Type 2 diabetes mellitus Status: Chronic Qualifiers: Diabetes mellitus complication status: with circulatory complication Code(s): E11.9 - Type 2 diabetes mellitus without complications (6) PAD (peripheral artery disease) Status: Chronic Code(s): I73.9 - Peripheral vascular disease, unspecified (7) Peripheral arterial occlusive disease Status: Chronic Code(s): I77.9 - Disorder of arteries and arterioles, unspecified Type of Wound Date of Service: 08/07/20 Chief Complaint: Left foot first, fifth digit ulceration. Left fourth digit amputation site ulceration. PAD History of Wound: Patient is referral [facility] 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 Patient has a history of smoking. Patient is diabetic as well but states is very well controlled averaging blood sugar in the low 100s. Patient denies any trauma or rubbing to start the wounds. Patient had intervention done by Dr. Nicholson on 06/12/2020. Since then patient has complaints of post procedure reperfusion pain. She states it is worse at night and she has some relief with dangling of the foot. She has had some increase in redness and swelling noted as well. Patient saw Dr. Tenorio June 26, 2020 and was started on 100mg gabapentin TID. She has noticed some improvement in her pain. 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 Patient was hosppitalized 07/07/20 for worsening toe wound and blood in stool. 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 Amputation of 4th digit with debridement of 1st and 5th digit ulcerations was performed 07/08/20. 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 Patient was discharged on levaquin every other day due to impairent of her kidneys. Patient was also discharged on oxycodone. Patient relates improvement of her pain since surgery. Patient relates she is no more taking strong pain meds. Progress of Wound: 4th toe amputation site improved. 1st and 5th digit ulcers stable. erythema/edema resolved Subjective: Patient seen and examined resting comfortably. Patient denies any new pedal complaints. Patient denies any nausea, fever, chills, chest pain, shortness of breath, cough, streaking, purulence, vomiting. Patient relates some pain occasionally but is improved over time. - Physical Exam Vital Signs Temp Pulse Resp BP 97.4 F L 64 16 118/65 08/07/20 09:33 07/31/20 09:48 08/07/20 09:33 07/31/20 09:48 General: Alert, Oriented x3 HEENT: Atraumatic Extremities: No clubbing, No cyanosis, No edema, Capillary Refill Less than 3 Seconds, No Calf Tenderness, Diminished Peripheral Pulses Skin: Ulcer/ Wound - Lateral fifth digit, fourth amputation site left foot. No malodor, erythema, purulence, probing to bone, streaking, fluctuation, crepitus, or other signs of infection. Skin is atrophic and hairless. Granular base Wound Measurements and Assessment WC - Nurse 1 - General Ulcer Measurement Start: 07/24/20 09:33 Freq: Status: Active Protocol: Activity Type Activity Date Activity User E-Sign Co-Sign Detail Recorded Client Recorded Date Recorded By Document 08/07/20 09:33 [facility] [id number] 08/07/20 09:43 [facility] 08/07/20 09:33 Wound Center Nurse 1 [Ulcer Assessment] #3 4th lateral toe/amp site -Combined with other wound No -Current Size (cm) - Length 2.5 -Current Size (cm) - Width 0.3 -Current Size (cm) - Depth 0.3 -Total Square Cm 0.75 -Photo Taken No -Epithelialization None Present -Tunneling No -Undermining/Tunneling No -Circular Undermining No -Exudate Amt Small -Exudate Type Serosanguineous -Wound Margin Distinct, Outline Attached -Granulation Amt Small (1-33%) -Granulation Quality Red -Slough/Fibrin Yes -Necrosis Amt Large (67-100%) -Necrotic Tissue Type Adherent Slough -Texture (Dot-wound Skin Appearance) Assessed, Scarring -Moisture (Dot-wound Skin Appearance Assessed, ) Maceration -Color (Dot-wound Skin Appearance) Assessed,Palor -Temperature (Dot-wound Skin No Abnormality Appearance) (Pt Warm) -Tenderness on Palpation (Dot-wound Yes Skin Appearance) -Ulcer Cleansing Rinsed/ Irrigated with Saline -Foul Odor after Cleansing No -Anesthetic Used 5% Lidocaine Gel #2 L 5th toe -Combined with other wound No -Current Size (cm) - Length 0.9 -Current Size (cm) - Width 0.7 -Current Size (cm) - Depth 0.3 -Total Square Cm 0.63 -Photo Taken No -Epithelialization None Present -Tunneling No -Undermining/Tunneling No -Circular Undermining No -Exudate Amt Small -Exudate Type Serosanguineous -Wound Margin Distinct, Outline Attached -Granulation Amt None Present (0 %) -Slough/Fibrin Yes -Necrosis Amt Large (67-100%) -Necrotic Tissue Type Adherent Slough -Texture (Dot-wound Skin Appearance) Assessed, Scarring -Moisture (Dot-wound Skin Appearance Assessed,Dry/ ) Scaly -Color (Dot-wound Skin Appearance) Erythema -Temperature (Dot-wound Skin No Abnormality Appearance) (Pt Warm) -Tenderness on Palpation (Dot-wound Yes Skin Appearance) -Ulcer Cleansing Rinsed/ Irrigated with Saline -Foul Odor after Cleansing No -Anesthetic Used 5% Lidocaine Gel #1 L Grt Toe -Combined with other wound No -Current Size (cm) - Length 0.9 -Current Size (cm) - Width 0.5 -Current Size (cm) - Depth 0.3 -Total Square Cm 0.45 -Photo Taken No -Epithelialization None Present -Tunneling No -Undermining/Tunneling No -Circular Undermining No -Exudate Amt Small -Exudate Type Serosanguineous -Wound Margin Distinct, Outline Attached -Granulation Amt None Present (0 %) -Slough/Fibrin Yes -Necrosis Amt Large (67-100%) -Necrotic Tissue Type Adherent Slough -Texture (Dot-wound Skin Appearance) Assessed, Scarring -Moisture (Dot-wound Skin Appearance Assessed,Dry/ ) Scaly -Color (Dot-wound Skin Appearance) Erythema -Temperature (Dot-wound Skin No Abnormality Appearance) (Pt Warm) -Tenderness on Palpation (Dot-wound Yes Skin Appearance) -Ulcer Cleansing Rinsed/ Irrigated with Saline -Foul Odor after Cleansing No -Anesthetic Used 5% Lidocaine Gel WC - Nurse 2 - General Ulcer CM Notes Start: 07/24/20 09:33 Freq: Status: Active Protocol: Activity Type Activity Date Activity User E-Sign Co-Sign Detail Recorded Client Recorded Date Recorded By Document 08/07/20 10:04 [facility] [id number] 08/07/20 10:17 RIC[facility] 08/07/20 10:04 Wound Center Nurse 2 [Procedure/Treatment] #3 4th lateral toe/amp site -Time 10:05 -Correct Patient Yes -Correct Side, Site, Position Yes -Correct Procedure Yes -Procedure Performed Yes -Type of Procedure Debridement -Clinical Debridement Subcutaneous -Tissue Removed Subcutaneous -Post Debridement (cm) - Length 1.8 -Post Debridement (cm) - Width 0.6 -Post Debridement (cm) - Depth 0.2 -Total Square (Post) (cm) 1.08 -Area of Debridement (cm) - Length 1.8 -Area of Debridement (cm) - Width 0.6 -Total Square (Area) (cm) 1.08 -Tunneling No -Undermining/Tunneling No -Circular Undermining No -Wound/Ulcer Outcome Not Healed -Ulcer Cleansing Rinsed/ Irrigated with Saline -Foul Odor after Cleansing No -Bioengineered Tissue No -Bleeding Controlled with Pressure -Offloading Yes -Type of Offloading Surgical Shoe -Treatment Response Procedure Tolerated Well -Debridement - Subq, 1st 20sq cm Yes #2 L 5th toe -Time 10:05 -Correct Patient Yes -Correct Side, Site, Position Yes -Correct Procedure Yes -Procedure Performed Yes -Type of Procedure Debridement -Clinical Debridement Subcutaneous -Tissue Removed Subcutaneous -Post Debridement (cm) - Length 0.8 -Post Debridement (cm) - Width 0.5 -Post Debridement (cm) - Depth 0.2 -Total Square (Post) (cm) 0.40 -Area of Debridement (cm) - Length 0.8 -Area of Debridement (cm) - Width 0.5 -Total Square (Area) (cm) 0.40 -Tunneling No -Undermining/Tunneling No -Circular Undermining No -Wound/Ulcer Outcome Not Healed -Ulcer Cleansing Rinsed/ Irrigated with Saline -Foul Odor after Cleansing No -Bioengineered Tissue No -Bleeding Controlled with Pressure -Offloading Yes -Type of Offloading Surgical Shoe -Treatment Response Procedure Tolerated Well -Debridement - Subq, 1st 20sq cm No #1 L Grt Toe -Time 10:08 -Correct Patient Yes -Correct Side, Site, Position Yes -Correct Procedure Yes -Procedure Performed Yes -Type of Procedure Debridement -Clinical Debridement Subcutaneous -Tissue Removed Subcutaneous -Post Debridement (cm) - Length 1 -Post Debridement (cm) - Width 0.5 -Post Debridement (cm) - Depth 0.1 -Total Square (Post) (cm) 0.5 -Area of Debridement (cm) - Length 1 -Area of Debridement (cm) - Width 0.5 -Total Square (Area) (cm) 0.5 -Tunneling No -Undermining/Tunneling No -Circular Undermining No -Wound/Ulcer Outcome Not Healed -Ulcer Cleansing Rinsed/ Irrigated with Saline -Foul Odor after Cleansing No -Bioengineered Tissue No -Bleeding Controlled with Pressure -Offloading Yes -Type of Offloading Surgical Shoe -Treatment Response Procedure Tolerated Well -Debridement - Subq, 1st 20sq cm No [See Physician Procedure note for Specifics] Pain Scale: 0-10 Numeric [Pain] -Is Patient Pain Free? Yes Musculoskeletal: Tenderness - Ulceration sites Neurological: Sensory exam intact to light touch and pain Psych/Mental Status: Normal Affect, Appropriate Debridement Note Post-Debridement Measurements/Treatment WC - Nurse 2 - General Ulcer CM Notes Start: 07/24/20 09:33 Freq: Status: Active Protocol: Activity Type Activity Date Activity User E-Sign Co-Sign Detail Recorded Client Recorded Date Recorded By Document 07/24/20 09:48 [facility] [id number] 07/24/20 10:02 JF Document 07/31/20 10:12 R[facility] [id number] 07/31/20 10:28 RICHI Document 08/07/20 10:04 [facility] [id number] 08/07/20 10:17 RICHI 07/24/20 07/31/2008/07/21 09:48 10:12 10:04 Wound Center Nurse 2 #3 4th lateral toe/amp site -Time 09:49 10:20 10:05 -Correct Patient No Yes Yes -Correct Side, Site, Position No Yes Yes -Correct Procedure No Yes Yes -Procedure Performed No Yes Yes -Type of Procedure Debridement Debridement -Clinical Debridement Subcutaneous Subcutaneous -Tissue Removed Subcutaneous Subcutaneous -Post Debridement (cm) - Length 2.5 1.8 -Post Debridement (cm) - Width 0.7 0.6 -Post Debridement (cm) - Depth 0.2 0.2 -Total Square (Post) (cm) 1.75 1.08 -Area of Debridement (cm) - Length 2.5 1.8 -Area of Debridement (cm) - Width 0.7 0.6 -Total Square (Area) (cm) 1.75 1.08 -Tunneling No No No -Undermining/Tunneling No No No -Circular Undermining No No No -Wound/Ulcer Outcome Not Healed Not Healed Not Healed -Ulcer Cleansing Rinsed/ Rinsed/ Rinsed/ Irrigated with Irrigated with Irrigated with Saline Saline Saline -Foul Odor after Cleansing No No No -Bioengineered Tissue No No No -Bleeding Controlled with Pressure Pressure Pressure -Offloading Yes Yes Yes -Type of Offloading Surgical Shoe Surgical Shoe Surgical Shoe -Treatment Response Procedure Procedure Procedure Tolerated Well Tolerated Well Tolerated Well -Debridement - Subq, 1st 20sq cm No Yes Yes #2 L 5th toe -Time 09:58 10:20 10:05 -Correct Patient Yes Yes Yes -Correct Side, Site, Position Yes Yes Yes -Correct Procedure Yes Yes Yes -Procedure Performed Yes Yes Yes -Type of Procedure Debridement Debridement Debridement -Clinical Debridement Subcutaneous Subcutaneous Subcutaneous -Tissue Removed Subcutaneous Subcutaneous Subcutaneous -Post Debridement (cm) - Length 0.8 0.9 0.8 -Post Debridement (cm) - Width 0.6 0.5 0.5 -Post Debridement (cm) - Depth 0.2 0.2 0.2 -Total Square (Post) (cm) 0.48 0.45 0.40 -Area of Debridement (cm) - Length 0.8 0.9 0.8 -Area of Debridement (cm) - Width 0.6 0.5 0.5 -Total Square (Area) (cm) 0.48 0.45 0.40 -Tunneling No No No -Undermining/Tunneling No No No -Circular Undermining No No No -Wound/Ulcer Outcome Not Healed Healed- Not Healed Surgical Closure -Ulcer Cleansing Rinsed/ Rinsed/ Rinsed/ Irrigated with Irrigated with Irrigated with Saline Saline Saline -Foul Odor after Cleansing No No No -Bioengineered Tissue No No No -Bleeding Controlled with Pressure Pressure Pressure -Offloading Yes Yes Yes -Type of Offloading Surgical Shoe Surgical Shoe Surgical Shoe -Treatment Response Procedure Procedure Procedure Tolerated Well Tolerated Well Tolerated Well -Debridement - Subq, 1st 20sq cm Yes No No #1 L Grt Toe -Time 10:01 10:26 10:08 -Correct Patient Yes Yes Yes -Correct Side, Site, Position Yes Yes Yes -Correct Procedure Yes Yes Yes -Procedure Performed Yes Yes Yes -Type of Procedure Debridement Debridement Debridement -Clinical Debridement Subcutaneous Subcutaneous Subcutaneous -Tissue Removed Subcutaneous Subcutaneous Subcutaneous -Post Debridement (cm) - Length 1 1 1 -Post Debridement (cm) - Width 0.7 0.6 0.5 -Post Debridement (cm) - Depth 0.1 0.2 0.1 -Total Square (Post) (cm) 0.7 0.6 0.5 -Area of Debridement (cm) - Length 1 1 1 -Area of Debridement (cm) - Width 0.7 0.6 0.5 -Total Square (Area) (cm) 0.7 0.6 0.5 -Tunneling No No No -Undermining/Tunneling No No No -Circular Undermining No No No -Wound/Ulcer Outcome Not Healed Not Healed Not Healed -Ulcer Cleansing Rinsed/ Rinsed/ Rinsed/ Irrigated with Irrigated with Irrigated with Saline Saline Saline -Foul Odor after Cleansing No No No -Bioengineered Tissue No No No -Bleeding Controlled with Pressure Pressure Pressure -Offloading Yes Yes Yes -Type of Offloading Surgical Shoe Surgical Shoe Surgical Shoe -Treatment Response Procedure Procedure Procedure Tolerated Well Tolerated Well Tolerated Well -Debridement - Subq, 1st 20sq cm No No No Pain Scale: 0-10 Numeric Is Patient Pain Free? Yes Yes Yes WC - Nurse 3 - General Ulcer D/C NN Start: 07/24/20 09:33 Freq: Status: Active Protocol: Activity Type Activity Date Activity User E-Sign Co-Sign Detail Recorded Client Recorded Date Recorded By Document 07/24/20 10:20 DL [id number] 07/24/20 10:21 DL Document 07/31/20 10:37 MS [id number] 07/31/20 10:38 MS 07/24/20 07/31/20 10:20 10:37 Wound Care Nurse 3 #3 4th lateral toe/amp site -Ulcer Cleansing Rinsed/ Rinsed/ Irrigated with Irrigated with Saline Saline -Foul Odor after Cleansing No No -Primary Dressing Applied C Hydrogel ($) -Other Dressing aquacel ag HYDROGEL, ADAPTIC -Primary Dressing Covered/Secured with Dry Gauze & Dry Gauze, Roll Gauze, Secured with Secured with Tape Tape #2 L 5th toe -Ulcer Cleansing Rinsed/ Rinsed/ Irrigated with Irrigated with Saline Saline -Foul Odor after Cleansing No No -Primary Dressing Applied C Hydrogel ($) -Other Dressing hydrogel ADAPTIC -Primary Dressing Covered/Secured with Dry Gauze & Dry Gauze, Roll Gauze, Secured with Secured with Tape Tape #1 L Grt Toe -Ulcer Cleansing Rinsed/ Rinsed/ Irrigated with Irrigated with Saline Saline -Foul Odor after Cleansing No -Primary Dressing Applied C Hydrogel ($) -Other Dressing hydrogel ADAPTIC -Primary Dressing Covered/Secured with Dry Gauze & Dry Gauze, Roll Gauze, Secured with Secured with Tape Tape Treatment Response Procedure Tolerated Well Pain Scale: 0-10 Numeric Is Patient Pain Free? Yes WC - Visit Discharge Discharge Condition Stable Stable Ambulatory Status Ambulatory, Ambulatory, Walker Walker Transportation Private Auto Medication Reconcilliation completed & No provided to patient/care provider Clinical Summary of Care Provided Yes Facility Type Home Health Orders Sent Yes Wound debrided: Fifth digit lateral Laterality: Left Wound Grade/Stage: Luciano 1 Type of Debridement: Excisional debridement Anesthesia Used: 5% Lidocaine Gel Depth: in the subcutaneous layer Percentage of wound debrided: 100 Instrument Used: 3mm curette Tissue Removed: Tissue removed includes fibrous, devitalized, biofilm, and slough tissue Severity: Fat Layer Exposed Amount of bleeding with debridement: Mild Bleeding Controlled with: Pressure Patient tolerated procedure well - Additional Wound Wound debrided: Medial hallux Laterality: Left Wound Grade/Stage: Luciano 1 Type of Debridement: Excisional debridement Anesthesia Used: 5% Lidocaine Gel Depth: in the subcutaneous layer Percentage of wound debrided: 100 Instrument Used: 3mm curette Tissue Removed: Tissue removed includes fibrous, devitalized, biofilm, and slough tissue Severity: Fat Layer Exposed Amount of bleeding with debridement: Mild Bleeding Controlled with: Pressure Patient tolerated procedure: Patient tolerated procedure well - Additional Wound Wound debrided: Fourth digit amputation site Laterality: Left Wound Grade/Stage: Luciano 1 Type of Debridement: Excisional debridement Anesthesia Used: 5% Lidocaine Gel Depth: in the subcutaneous layer Percentage of wound debrided: 100 Instrument Used: 3mm curette Tissue Removed: Tissue removed includes fibrous, devitalized, biofilm, and slough tissue Severity: Fat Layer Exposed Amount of bleeding with debridement: Mild Bleeding Controlled with: Pressure Patient tolerated procedure: Patient tolerated procedure well Assessment/Plan Active Problems (Last Reviewed 07/07/20 @ 17:[address] Cathie Das DO) Non-pressure chronic ulcer of other part of left foot with fat layer exposed (Chronic) Amputated toe (Chronic) Type 2 diabetes mellitus (Chronic) PAD (peripheral artery disease) (Chronic) Peripheral arterial occlusive disease (Chronic) Assessment: Left first digit plantar medial ulcer. Left fifth digit lateral ulcer. Left fourth digit amputation site ulceration. 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 Peripheral vascular disease status post intervention 06/12/[address] Nicholson. Diabetes. history tobacco abuse Plan: Patient seen and examined with daughter present. Patient is referral from Dr. Escudero's [facility] ulcerations first and fifth toes of left foot. Patient has peripheral vascular disease. Patient has been seeing Dr. Nicholson for this. Patient had intervention on 06/12/2020. Since then patient has had some reperfusion pain with swelling that is worse at night. Patient followed up with Dr Nicholson with no other intervention planned. This pain has persisted. Patient saw Dr. Tenorio on 06/26/2020 and he prescribed gabapentin which patient relates helps. Patient has recent LEAS prior to intervention with Dr. Nicholson with left monophasic pulses with an JENY of 0.59 from the PT artery and a TBI of 0.12. On the right side the DP and PT are monophasic as well with an JENY of 0.53 on the PT artery and 0.75 to the DP artery and a TBI of 0.3. 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 Patient was hospitalized on 07/07/20 for worsening 4th toe ulceration and blood in stool. Patient was noted to ahve rapid increase in gangrene to 4th digit. Amputation of 4th digit and debridement of 1st and 5th digit was performed 07/08/20. OM was confirmed with PsAg. Patient was discharged on Levaquin every other day due to kidney function she has since finished. Patient was also given Rx for oxycodone. Left first toe and fifth toe and fourth toe amputation site were sharply debrided after verbal consent was obtained. First and fourth toe amputation site ulcers were dressed with hydrogel to and fifth toe ulcer with Santyl with Adaptic placed over top to help maintain moisture level. Heel fissure has healed. Reviewed proper wound care with patient. Discussed with the patient the importance of offloading the sites with wide enough shoe gear if she is to be wearing shoes, proper diet, good blood sugar control. Patient has offloading boot. Patient also complains of pain in her toes to her left foot. Patient is taking gabaentin. Relates pain has improved but she still has it. All questions were answered patient satisfaction. Discussed with the patient all concerning signs and symptoms to watch out for and to contact office if he either presents. Patient's follow-up in 1 week. This note was generated with [employer] dictation software. It may contain incorrect words, spelling, and punctuation that were not noted in checking the note before signing.
[2020-08-14 09:47] VITALS: BP 138/67; PULSE 67; RESP 18; TEMP 36.1; BMI 23.6
--- NOTE | 2020-08-14 11:07 | PCM.WC.PN ---
(1) Non-pressure chronic ulcer of other part of left foot with fat layer exposed Status: Chronic Code(s): L97.522 - Non-pressure chronic ulcer of other part of left foot with fat layer exposed (2) Osteomyelitis Status: Resolved Qualifiers: Osteomyelitis type: acute hematogenous Osteomyelitis location: foot Laterality: left Qualified Code(s): M86.072 - Acute hematogenous osteomyelitis, left ankle and foot Code(s): M86.9 - Osteomyelitis, unspecified (3) Tobacco abuse Status: Resolved Code(s): Z72.0 - Tobacco use (4) Type 2 diabetes mellitus Status: Chronic Qualifiers: Diabetes mellitus complication status: with circulatory complication Code(s): E11.9 - Type 2 diabetes mellitus without complications (5) Amputated toe Status: Chronic Qualifiers: Laterality: left Qualified Code(s): S98.132A - Complete traumatic amputation of one left lesser toe, initial encounter Code(s): S98.139A - Complete traumatic amputation of one unspecified lesser toe, initial encounter (6) PAD (peripheral artery disease) Status: Chronic Code(s): I73.9 - Peripheral vascular disease, unspecified (7) Peripheral arterial occlusive disease Status: Chronic Code(s): I77.9 - Disorder of arteries and arterioles, unspecified Type of Wound Date of Service: 08/14/20 Chief Complaint: Left foot first, fifth digit ulceration. Left fourth digit amputation site ulceration. PAD History of Wound: Patient is [facility] 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 Patient has a history of smoking. Patient is diabetic as well but states is very well controlled averaging blood sugar in the low 100s. Patient denies any trauma or rubbing to start the wounds. Patient had intervention done by Dr. Nicholson on 06/12/2020. Since then patient has complaints of post procedure reperfusion pain. She states it is worse at night and she has some relief with dangling of the foot. She has had some increase in redness and swelling noted as well. Patient saw Dr. Tenorio June 26, 2020 and was started on 100mg gabapentin TID. She has noticed some improvement in her pain. 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 Patient was hosppitalized 07/07/20 for worsening toe wound and blood in stool. 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 Amputation of 4th digit with debridement of 1st and 5th digit ulcerations was performed 07/08/20. 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 Patient was discharged on levaquin every other day due to impairent of her kidneys. Patient was also discharged on oxycodone. Patient relates improvement of her pain since surgery. Patient relates she is no longer taking strong pain meds. Progress of Wound: 4th toe amputation site improved. 1st and 5th digit ulcers stable. erythema/edema resolved Subjective: Patient seen and examined resting comfortably. Patient denies any new pedal complaints. Patient denies any nausea, fever, chills, chest pain, shortness of breath, cough, streaking, purulence, vomiting. Patient reports some improvement in her pain - Physical Exam Vital Signs Temp Pulse Resp BP 96.9 F L 67 18 138/67 H 08/14/20 09:47 08/14/20 09:47 08/14/20 09:47 08/14/20 09:47 General: Alert, Oriented x3 HEENT: Atraumatic Extremities: No clubbing, No cyanosis, Capillary Refill Less than 3 Seconds - Digits are warm, No Calf Tenderness, Diminished Peripheral Pulses, Edema, Tenderness Skin: Ulcer/ Wound - Left hallux, fifth digit, fourth amputation site ulcerations. No malodor, erythema, purulence, probing to bone, streaking, fluctuation, crepitus, or other signs of infection. Skin is atrophic and hairless. Granular-fibrotic base Wound Measurements and Assessment WC - Nurse 1 - General Ulcer Measurement Start: 07/24/20 09:33 Freq: Status: Active Protocol: Activity Type Activity Date Activity User E-Sign Co-Sign Detail Recorded Client Recorded Date Recorded By Document 08/14/20 09:47 DL [id number] 08/14/20 09:53 DL 08/14/20 09:47 Wound Center Nurse 1 [Ulcer Assessment] #3 4th lateral toe/amp site -Current Size (cm) - Length 2.6 -Current Size (cm) - Width 0.6 -Current Size (cm) - Depth 0.2 -Total Square Cm 1.56 -Photo Taken No -Exudate Amt Small -Exudate Type Serosanguineous -Wound Margin Distinct, Outline Attached -Granulation Amt None Present (0 %) -Necrosis Amt Large (67-100%) -Necrotic Tissue Type Adherent Slough -Structure Exposed N/A -Texture (Dot-wound Skin Appearance) Scarring -Moisture (Dot-wound Skin Appearance No Abnormality ) -Color (Dot-wound Skin Appearance) No Abnormality -Temperature (Dot-wound Skin No Abnormality Appearance) (Pt Warm) -Tenderness on Palpation (Dot-wound No Skin Appearance) -Ulcer Cleansing Wound Cleanser -Foul Odor after Cleansing No -Anesthetic Used 4% Lidocaine Solution #2 L 5th toe -Current Size (cm) - Length 0.8 -Current Size (cm) - Width 0.3 -Current Size (cm) - Depth 0.2 -Total Square Cm 0.24 -Photo Taken No -Exudate Amt Small -Exudate Type Serosanguineous -Wound Margin Distinct, Outline Attached -Granulation Amt None Present (0 %) -Necrosis Amt Large (67-100%) -Necrotic Tissue Type Adherent Slough -Structure Exposed N/A -Texture (Dot-wound Skin Appearance) Scarring -Moisture (Dot-wound Skin Appearance No Abnormality ) -Color (Dot-wound Skin Appearance) No Abnormality -Temperature (Dot-wound Skin No Abnormality Appearance) (Pt Warm) -Tenderness on Palpation (Dot-wound No Skin Appearance) -Ulcer Cleansing Wound Cleanser -Foul Odor after Cleansing No -Anesthetic Used 4% Lidocaine Solution #1 L Grt Toe -Current Size (cm) - Length 0.8 -Current Size (cm) - Width 0.3 -Current Size (cm) - Depth 0.2 -Total Square Cm 0.24 -Photo Taken No -Exudate Amt Small -Exudate Type Serosanguineous -Wound Margin Distinct, Outline Attached -Granulation Amt None Present (0 %) -Necrosis Amt Large (67-100%) -Necrotic Tissue Type Adherent Slough -Structure Exposed N/A -Texture (Dot-wound Skin Appearance) Scarring -Moisture (Dot-wound Skin Appearance No Abnormality ) -Temperature (Dot-wound Skin No Abnormality Appearance) (Pt Warm) -Tenderness on Palpation (Dot-wound No Skin Appearance) -Ulcer Cleansing Wound Cleanser -Foul Odor after Cleansing No -Anesthetic Used 4% Lidocaine Solution WC - Nurse 2 - General Ulcer CM Notes Start: 07/24/20 09:33 Freq: Status: Active Protocol: Activity Type Activity Date Activity User E-Sign Co-Sign Detail Recorded Client Recorded Date Recorded By Document 08/14/20 10:19 [email or web address] [id number] 08/14/20 10:22 RICHI 08/14/20 10:19 Wound Center Nurse 2 [Procedure/Treatment] #3 4th lateral toe/amp site -Time 10:19 -Correct Patient Yes -Correct Side, Site, Position Yes -Correct Procedure Yes -Procedure Performed Yes -Type of Procedure Debridement -Clinical Debridement Subcutaneous -Tissue Removed Subcutaneous -Post Debridement (cm) - Length 2 -Post Debridement (cm) - Width 0.5 -Post Debridement (cm) - Depth 0.2 -Total Square (Post) (cm) 1.0 -Area of Debridement (cm) - Length 2 -Area of Debridement (cm) - Width 0.5 -Total Square (Area) (cm) 1.0 -Tunneling No -Undermining/Tunneling No -Circular Undermining No -Wound/Ulcer Outcome Not Healed -Ulcer Cleansing Rinsed/ Irrigated with Saline -Foul Odor after Cleansing No -Bioengineered Tissue No -Bleeding Controlled with Pressure -Offloading Yes -Type of Offloading Surgical Shoe -Treatment Response Procedure Tolerated Well -Debridement - Subq, 1st 20sq cm Yes #2 L 5th toe -Time 10:20 -Correct Patient Yes -Correct Side, Site, Position Yes -Correct Procedure Yes -Procedure Performed Yes -Type of Procedure Debridement -Clinical Debridement Subcutaneous -Tissue Removed Subcutaneous -Post Debridement (cm) - Length 0.8 -Post Debridement (cm) - Width 0.7 -Post Debridement (cm) - Depth 0.2 -Total Square (Post) (cm) 0.56 -Area of Debridement (cm) - Length 0.8 -Area of Debridement (cm) - Width 0.7 -Total Square (Area) (cm) 0.56 -Tunneling No -Undermining/Tunneling No -Circular Undermining No -Wound/Ulcer Outcome Not Healed -Ulcer Cleansing Rinsed/ Irrigated with Saline -Foul Odor after Cleansing No -Bioengineered Tissue No -Bleeding Controlled with Pressure -Offloading No -Treatment Response Procedure Tolerated Well -Debridement - Subq, 1st 20sq cm No #1 L Grt Toe -Time 10:21 -Correct Patient Yes -Correct Side, Site, Position Yes -Correct Procedure Yes -Procedure Performed Yes -Type of Procedure Debridement -Clinical Debridement Subcutaneous -Tissue Removed Subcutaneous -Post Debridement (cm) - Length 0.9 -Post Debridement (cm) - Width 0.6 -Post Debridement (cm) - Depth 0.2 -Total Square (Post) (cm) 0.54 -Area of Debridement (cm) - Length 0.9 -Area of Debridement (cm) - Width 0.6 -Total Square (Area) (cm) 0.54 -Tunneling No -Undermining/Tunneling No -Circular Undermining No -Wound/Ulcer Outcome Not Healed -Ulcer Cleansing Rinsed/ Irrigated with Saline -Foul Odor after Cleansing No -Bioengineered Tissue No -Bleeding Controlled with Pressure -Offloading Yes -Type of Offloading Surgical Shoe -Treatment Response Procedure Tolerated Well -Debridement - Subq, 1st 20sq cm No [See Physician Procedure note for Specifics] Pain Scale: 0-10 Numeric [Pain] -Is Patient Pain Free? Yes - Nurse 3 - General Ulcer D/C NN Start: 07/24/20 09:33 Freq: Status: Active Protocol: Activity Type Activity Date Activity User E-Sign Co-Sign Detail Recorded Client Recorded Date Recorded By Document 08/14/20 10:42 DL [id number] 08/14/20 10:44 DL 08/14/20 10:42 Wound Care Nurse 3 [Wound Dressing] #3 4th lateral toe/amp site -Ulcer Cleansing Rinsed/ Irrigated with Saline -Foul Odor after Cleansing No -Primary Dressing Applied NonAdherent Contact Layer -Other Dressing hydrogel -Primary Dressing Covered/Secured Dry Gauze & with Roll Gauze, Secured with Tape #2 L 5th toe -Ulcer Cleansing Rinsed/ Irrigated with Saline -Foul Odor after Cleansing No -Primary Dressing Applied NonAdherent Contact Layer -Other Dressing hydrogel -Primary Dressing Covered/Secured Dry Gauze & with Roll Gauze, Secured with Tape #1 L Grt Toe -Ulcer Cleansing Rinsed/ Irrigated with Saline -Foul Odor after Cleansing No -Other Dressing hydrogel -Primary Dressing Covered/Secured Dry Gauze & with Roll Gauze, Secured with Tape [Post Procedure Tolerated] -Treatment Response Procedure Tolerated Well Pain Scale: 0-10 Numeric [Pain] -Is Patient Pain Free? Yes - Visit Discharge [Visit Discharge Information] -Discharge Condition Stable -Ambulatory Status Ambulatory -Transportation Private Auto Musculoskeletal: Tenderness - To ulceration site with fifth digit being the worst Neurological: Sensory exam intact to light touch and pain Psych/Mental Status: Normal Affect, Appropriate Debridement Note Post-Debridement Measurements/Treatment - Nurse 2 - General Ulcer CM Notes Start: 07/24/20 09:33 Freq: Status: Active Protocol: Activity Type Activity Date Activity User E-Sign Co-Sign Detail Recorded Client Recorded Date Recorded By Document 07/24/20 09:48 [id number] 07/24/20 10:02 Document 07/31/20 10:12 Preo [id number] 07/31/20 10:28 Document 08/07/20 10:04 [id number] 08/07/20 10:17 Document 08/14/20 10:19 [id number] 08/14/20 10:22 JF 07/24/20 07/31/20 08/07/20 09:48 10:12 10:04 Wound Center Nurse 2 #3 4th lateral toe/amp site -Time 09:49 10:20 10:05 -Correct Patient No Yes Yes -Correct Side, Site, Position No Yes Yes -Correct Procedure No Yes Yes -Procedure Performed No Yes Yes -Type of Procedure Debridement Debridement -Clinical Debridement Subcutaneous Subcutaneous -Tissue Removed Subcutaneous Subcutaneous -Post Debridement (cm) - Length 2.5 1.8 -Post Debridement (cm) - Width 0.7 0.6 -Post Debridement (cm) - Depth 0.2 0.2 -Total Square (Post) (cm) 1.75 1.08 -Area of Debridement (cm) - Length 2.5 1.8 -Area of Debridement (cm) - Width 0.7 0.6 -Total Square (Area) (cm) 1.75 1.08 -Tunneling No No No -Undermining/Tunneling No No No -Circular Undermining No No No -Wound/Ulcer Outcome Not Healed Not Healed Not Healed -Ulcer Cleansing Rinsed/ Rinsed/ Rinsed/ Irrigated with Irrigated with Irrigated with Saline Saline Saline -Foul Odor after Cleansing No No No -Bioengineered Tissue No No No -Bleeding Controlled with Pressure Pressure Pressure -Offloading Yes Yes Yes -Type of Offloading Surgical Shoe Surgical Shoe Surgical Shoe -Treatment Response Procedure Procedure Procedure Tolerated Well Tolerated Well Tolerated Well -Debridement - Subq, 1st 20sq cm No Yes Yes #2 L 5th toe -Time 09:58 10:20 10:05 -Correct Patient Yes Yes Yes -Correct Side, Site, Position Yes Yes Yes -Correct Procedure Yes Yes Yes -Procedure Performed Yes Yes Yes -Type of Procedure Debridement Debridement Debridement -Clinical Debridement Subcutaneous Subcutaneous Subcutaneous -Tissue Removed Subcutaneous Subcutaneous Subcutaneous -Post Debridement (cm) - Length 0.8 0.9 0.8 -Post Debridement (cm) - Width 0.6 0.5 0.5 -Post Debridement (cm) - Depth 0.2 0.2 0.2 -Total Square (Post) (cm) 0.48 0.45 0.40 -Area of Debridement (cm) - Length 0.8 0.9 0.8 -Area of Debridement (cm) - Width 0.6 0.5 0.5 -Total Square (Area) (cm) 0.48 0.45 0.40 -Tunneling No No No -Undermining/Tunneling No No No -Circular Undermining No No No -Wound/Ulcer Outcome Not Healed Healed- Not Healed Surgical Closure -Ulcer Cleansing Rinsed/ Rinsed/ Rinsed/ Irrigated with Irrigated with Irrigated with Saline Saline Saline -Foul Odor after Cleansing No No No -Bioengineered Tissue No No No -Bleeding Controlled with Pressure Pressure Pressure -Offloading Yes Yes Yes -Type of Offloading Surgical Shoe Surgical Shoe Surgical Shoe -Treatment Response Procedure Procedure Procedure Tolerated Well Tolerated Well Tolerated Well -Debridement - Subq, 1st 20sq cm Yes No No #1 L Grt Toe -Time 10:01 10:26 10:08 -Correct Patient Yes Yes Yes -Correct Side, Site, Position Yes Yes Yes -Correct Procedure Yes Yes Yes -Procedure Performed Yes Yes Yes -Type of Procedure Debridement Debridement Debridement -Clinical Debridement Subcutaneous Subcutaneous Subcutaneous -Tissue Removed Subcutaneous Subcutaneous Subcutaneous -Post Debridement (cm) - Length 1 1 1 -Post Debridement (cm) - Width 0.7 0.6 0.5 -Post Debridement (cm) - Depth 0.1 0.2 0.1 -Total Square (Post) (cm) 0.7 0.6 0.5 -Area of Debridement (cm) - Length 1 1 1 -Area of Debridement (cm) - Width 0.7 0.6 0.5 -Total Square (Area) (cm) 0.7 0.6 0.5 -Tunneling No No No -Undermining/Tunneling No No No -Circular Undermining No No No -Wound/Ulcer Outcome Not Healed Not Healed Not Healed -Ulcer Cleansing Rinsed/ Rinsed/ Rinsed/ Irrigated with Irrigated with Irrigated with Saline Saline Saline -Foul Odor after Cleansing No No No -Bioengineered Tissue No No No -Bleeding Controlled with Pressure Pressure Pressure -Offloading Yes Yes Yes -Type of Offloading Surgical Shoe Surgical Shoe Surgical Shoe -Treatment Response Procedure Procedure Procedure Tolerated Well Tolerated Well Tolerated Well -Debridement - Subq, 1st 20sq cm No No No Pain Scale: 0-10 Numeric Is Patient Pain Free? Yes Yes Yes 08/14/20 10:19 Wound Center Nurse 2 #3 4th lateral toe/amp site -Time 10:19 -Correct Patient Yes -Correct Side, Site, Position Yes -Correct Procedure Yes -Procedure Performed Yes -Type of Procedure Debridement -Clinical Debridement Subcutaneous -Tissue Removed Subcutaneous -Post Debridement (cm) - Length 2 -Post Debridement (cm) - Width 0.5 -Post Debridement (cm) - Depth 0.2 -Total Square (Post) (cm) 1.0 -Area of Debridement (cm) - Length 2 -Area of Debridement (cm) - Width 0.5 -Total Square (Area) (cm) 1.0 -Tunneling No -Undermining/Tunneling No -Circular Undermining No -Wound/Ulcer Outcome Not Healed -Ulcer Cleansing Rinsed/ Irrigated with Saline -Foul Odor after Cleansing No -Bioengineered Tissue No -Bleeding Controlled with Pressure -Offloading Yes -Type of Offloading Surgical Shoe -Treatment Response Procedure Tolerated Well -Debridement - Subq, 1st 20sq cm Yes #2 L 5th toe -Time 10:20 -Correct Patient Yes -Correct Side, Site, Position Yes -Correct Procedure Yes -Procedure Performed Yes -Type of Procedure Debridement -Clinical Debridement Subcutaneous -Tissue Removed Subcutaneous -Post Debridement (cm) - Length 0.8 -Post Debridement (cm) - Width 0.7 -Post Debridement (cm) - Depth 0.2 -Total Square (Post) (cm) 0.56 -Area of Debridement (cm) - Length 0.8 -Area of Debridement (cm) - Width 0.7 -Total Square (Area) (cm) 0.56 -Tunneling No -Undermining/Tunneling No -Circular Undermining No -Wound/Ulcer Outcome Not Healed -Ulcer Cleansing Rinsed/ Irrigated with Saline -Foul Odor after Cleansing No -Bioengineered Tissue No -Bleeding Controlled with Pressure -Offloading No -Type of Offloading -Treatment Response Procedure Tolerated Well -Debridement - Subq, 1st 20sq cm No #1 L Grt Toe -Time 10:21 -Correct Patient Yes -Correct Side, Site, Position Yes -Correct Procedure Yes -Procedure Performed Yes -Type of Procedure Debridement -Clinical Debridement Subcutaneous -Tissue Removed Subcutaneous -Post Debridement (cm) - Length 0.9 -Post Debridement (cm) - Width 0.6 -Post Debridement (cm) - Depth 0.2 -Total Square (Post) (cm) 0.54 -Area of Debridement (cm) - Length 0.9 -Area of Debridement (cm) - Width 0.6 -Total Square (Area) (cm) 0.54 -Tunneling No -Undermining/Tunneling No -Circular Undermining No -Wound/Ulcer Outcome Not Healed -Ulcer Cleansing Rinsed/ Irrigated with Saline -Foul Odor after Cleansing No -Bioengineered Tissue No -Bleeding Controlled with Pressure -Offloading Yes -Type of Offloading Surgical Shoe -Treatment Response Procedure Tolerated Well -Debridement - Subq, 1st 20sq cm No Pain Scale: 0-10 Numeric Is Patient Pain Free? Yes WC - Nurse 3 - General Ulcer D/C NN Start: 07/24/20 09:33 Freq: Status: Active Protocol: Activity Type Activity Date Activity User E-Sign Co-Sign Detail Recorded Client Recorded Date Recorded By Document 07/24/20 10:20 DL [id number] 07/24/20 10:21 DL Document 07/31/20 10:37 MS [id number] 07/31/20 10:38 MS Document 08/07/20 10:57 DL [id number] 08/07/20 11:00 DL Document 08/14/20 10:42 DL [id number] 08/14/20 10:44 DL 07/24/20 07/31/20 08/07/20 10:20 10:37 10:57 Wound Care Nurse 3 #3 4th lateral toe/amp site -Ulcer Cleansing Rinsed/ Rinsed/ Rinsed/ Irrigated with Irrigated with Irrigated with Saline Saline Saline -Foul Odor after Cleansing No No No -Primary Dressing Applied C Hydrogel ($) C Hydrogel ($) -Other Dressing aquacel ag HYDROGEL, ADAPTIC -Primary Dressing Covered/Secured with Dry Gauze & Dry Gauze, Dry Gauze & Roll Gauze, Secured with Roll Gauze, Secured with Tape Secured with Tape Tape #2 L 5th toe -Ulcer Cleansing Rinsed/ Rinsed/ Rinsed/ Irrigated with Irrigated with Irrigated with Saline Saline Saline -Foul Odor after Cleansing No No No -Primary Dressing Applied C Hydrogel ($) -Other Dressing hydrogel ADAPTIC hydrogel -Primary Dressing Covered/Secured with Dry Gauze & Dry Gauze, Dry Gauze & Roll Gauze, Secured with Roll Gauze, Secured with Tape Secured with Tape Tape #1 L Grt Toe -Ulcer Cleansing Rinsed/ Rinsed/ Rinsed/ Irrigated with Irrigated with Irrigated with Saline Saline Saline -Foul Odor after Cleansing No No -Primary Dressing Applied C Hydrogel ($) C Hydrogel ($) -Other Dressing hydrogel ADAPTIC hydrogel -Primary Dressing Covered/Secured with Dry Gauze & Dry Gauze, Dry Gauze & Roll Gauze, Secured with Roll Gauze, Secured with Tape Secured with Tape Tape Treatment Response Procedure Procedure Tolerated Well Tolerated Well Pain Scale: 0-10 Numeric Is Patient Pain Free? Yes Yes WC - Visit Discharge Discharge Condition Stable Stable Stable Ambulatory Status Ambulatory, Ambulatory, Walker Walker Walker Transportation Private Auto Private Auto Medication Reconcilliation completed & No provided to patient/care provider Clinical Summary of Care Provided Yes Facility Type Home Health Home Health Orders Sent Yes Yes 08/14/20 10:42 Wound Care Nurse 3 #3 4th lateral toe/amp site -Ulcer Cleansing Rinsed/ Irrigated with Saline -Foul Odor after Cleansing No -Primary Dressing Applied NonAdherent Contact Layer -Other Dressing hydrogel -Primary Dressing Covered/Secured with Dry Gauze & Roll Gauze, Secured with Tape #2 L 5th toe -Ulcer Cleansing Rinsed/ Irrigated with Saline -Foul Odor after Cleansing No -Primary Dressing Applied NonAdherent Contact Layer -Other Dressing hydrogel -Primary Dressing Covered/Secured with Dry Gauze & Roll Gauze, Secured with Tape #1 L Grt Toe -Ulcer Cleansing Rinsed/ Irrigated with Saline -Foul Odor after Cleansing No -Primary Dressing Applied -Other Dressing hydrogel -Primary Dressing Covered/Secured with Dry Gauze & Roll Gauze, Secured with Tape Treatment Response Procedure Tolerated Well Pain Scale: 0-10 Numeric Is Patient Pain Free? Yes WC - Visit Discharge Discharge Condition Stable Ambulatory Status Ambulatory Transportation Private Auto Medication Reconcilliation completed & provided to patient/care provider Clinical Summary of Care Provided Facility Type Orders Sent Wound debrided: Hallux Laterality: Left Wound Grade/Stage: Luciano 1 Type of Debridement: Excisional debridement Anesthesia Used: 5% Lidocaine Gel Depth: in the subcutaneous layer Percentage of wound debrided: 100 Instrument Used: 3mm curette Tissue Removed: Tissue removed includes fibrous, devitalized, biofilm, and slough tissue Severity: Fat Layer Exposed Amount of bleeding with debridement: Mild Bleeding Controlled with: Pressure Patient tolerated procedure well - Additional Wound Wound debrided: Fifth digit Laterality: Left Wound Grade/Stage: Luciano 1 Type of Debridement: Excisional debridement Anesthesia Used: 5% Lidocaine Gel Depth: in the subcutaneous layer Percentage of wound debrided: 100 Instrument Used: 3mm curette Tissue Removed: Tissue removed includes fibrous, devitalized, biofilm, and slough tissue Severity: Fat Layer Exposed Amount of bleeding with debridement: Mild Bleeding Controlled with: Pressure Patient tolerated procedure: Patient tolerated procedure well - Additional Wound Wound debrided: Fourth toe amputation site Laterality: Left Wound Grade/Stage: Luciano 1 Type of Debridement: Excisional debridement Anesthesia Used: 5% Lidocaine Gel Depth: in the subcutaneous layer Percentage of wound debrided: 100 Instrument Used: 3mm curette Tissue Removed: Tissue removed includes fibrous, devitalized, biofilm, and slough tissue Severity: Fat Layer Exposed Amount of bleeding with debridement: Mild Bleeding Controlled with: Pressure Patient tolerated procedure: Patient tolerated procedure well Assessment/Plan Active Problems (Last Reviewed 07/07/20 @ 17:[address] 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) Amputated toe (Chronic) Type 2 diabetes mellitus (Chronic) PAD (peripheral artery disease) (Chronic) Peripheral arterial occlusive disease (Chronic) Assessment: Left first digit plantar medial ulcer. Left fifth digit lateral ulcer. Left fourth digit amputation site ulceration. 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 Peripheral vascular disease status post intervention 06/12/[address] Nicholson. Diabetes. history tobacco abuse Plan: Patient seen and examined with daughter present. Patient has peripheral vascular disease. Patient has been seeing Dr. Nicholson for this. Patient had intervention on 06/12/2020. Since then patient has had some reperfusion pain with swelling that is worse at night. Patient followed up with Dr Nicholson with no other intervention planned. This pain has persisted. Patient saw Dr. Tenorio on 06/26/2020 and he prescribed gabapentin which patient relates helps. Patient has recent LEAS prior to intervention with Dr. Nicholson with left monophasic pulses with an JENY of 0.59 from the PT artery and a TBI of 0.12. On the right side the DP and PT are monophasic as well with an JENY of 0.53 on the PT artery and 0.75 to the DP artery and a TBI of 0.3. 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 Patient was hospitalized on 07/07/20 for worsening 4th toe ulceration and blood in stool. Patient was noted to ahve rapid increase in gangrene to 4th digit. Amputation of 4th digit and debridement of 1st and 5th digit was performed 07/08/20. OM was confirmed with PsAg. Patient was discharged on Levaquin every other day due to kidney function she has since finished. Left first toe and fifth toe and fourth toe amputation site were sharply debrided after verbal consent was obtained. Continue wound care daily. Heel fissure has healed. Reviewed proper wound care with patient. Discussed with the patient the importance of offloading the sites with wide enough shoe gear if she is to be wearing shoes, proper diet, good blood sugar control. Patient has offloading boot. All questions were answered patient satisfaction. Discussed with the patient all concerning signs and symptoms to watch out for and to contact office if he either presents. Patient's follow-up in 1 week. This note was generated with [employer] dictation software. It may contain incorrect words, spelling, and punctuation that were not noted in checking the note before signing.
[2020-08-21 10:01] VITALS: BP 127/71; PULSE 69; RESP 16; TEMP 36.3; BMI 23.6
--- NOTE | 2020-08-21 10:44 | PN.PCM_ITS ---
(1) Non-pressure chronic ulcer of other part of left foot with fat layer exposed Status: Chronic Code(s): L97.522 - Non-pressure chronic ulcer of other part of left foot with fat layer exposed (2) Osteomyelitis Status: Resolved Qualifiers: Osteomyelitis type: acute hematogenous Osteomyelitis location: foot Laterality: left Qualified Code(s): M86.072 - Acute hematogenous osteomyelitis, left ankle and foot Code(s): M86.9 - Osteomyelitis, unspecified (3) Tobacco abuse Status: Resolved Code(s): Z72.0 - Tobacco use (4) Type 2 diabetes mellitus Status: Chronic Qualifiers: Diabetes mellitus complication status: with circulatory complication Code(s): E11.9 - Type 2 diabetes mellitus without complications (5) Amputated toe Status: Chronic Qualifiers: Laterality: left Qualified Code(s): S98.132A - Complete traumatic amputation of one left lesser toe, initial encounter Code(s): S98.139A - Complete traumatic amputation of one unspecified lesser toe, initial encounter (6) PAD (peripheral artery disease) Status: Chronic Code(s): I73.9 - Peripheral vascular disease, unspecified (7) Peripheral arterial occlusive disease Status: Chronic Code(s): I77.9 - Disorder of arteries and arterioles, unspecified Type of Wound Date of Service: 08/21/20 Chief Complaint: Left foot first, fifth digit ulceration. Left fourth digit amputation site ulceration. PAD History of Wound: Patient is [facility] 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 Patient has a history of smoking. Patient is diabetic as well but states is very well controlled averaging blood sugar in the low 100s. Patient denies any trauma or rubbing to start the wounds. Patient had intervention done by Dr. Nicholson on 06/12/2020. Since then patient has complaints of post procedure reperfusion pain. She states it is worse at night and she has some relief with dangling of the foot. She has had some increase in redness and swelling noted as well. Patient saw Dr. Tenorio June 26, 2020 and was started on 100mg gabapentin TID. She has noticed some improvement in her pain. 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 Patient was hosppitalized 07/07/20 for worsening toe wound and blood in stool. 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 Amputation of 4th digit with debridement of 1st and 5th digit ulcerations was performed 07/08/20. 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 Patient was discharged on levaquin every other day due to impairent of her kidneys. Patient was also discharged on oxycodone. Patient relates improvement of her pain since surgery. Patient relates she is no longer taking strong pain meds. Progress of Wound: 4th toe amputation site, 1st and 5th digit ulcers smaller in size Subjective: Patient seen and examined resting comfortably. Patient denies any new pedal complaints. Patient denies any nausea, fever, chills, chest pain, shortness of breath, cough, streaking, purulence, vomiting. Patient wants pain is controlled largely - Physical Exam Vital Signs Temp Pulse Resp BP 97.4 F L 69 16 127/71 H 08/21/20 10:01 08/21/20 10:01 08/21/20 10:01 08/21/20 10:01 General: Alert, Oriented x3 HEENT: Atraumatic Extremities: No clubbing, No cyanosis, No edema, Capillary Refill Less than 3 Seconds, No Calf Tenderness, Diminished Peripheral Pulses Skin: Ulcer/ Wound - Left foot first and fifth digit and fourth amputation site ulcerations. No malodor, erythema, purulence, probing to bone, streaking, fluctuation, crepitus, or other signs of infection. Skin is atrophic and hairless. Granular base Wound Measurements and Assessment WC - Nurse 1 - General Ulcer Measurement Start: 07/24/20 09:33 Freq: Status: Active Protocol: Activity Type Activity Date Activity User E-Sign Co-Sign Detail Recorded Client Recorded Date Recorded By Document 08/21/20 10:01 [facility] [id number] 08/21/20 10:11 [facility] 08/21/20 10:01 Wound Center Nurse 1 [Ulcer Assessment] #3 4th lateral toe/amp site -Combined with other wound No -Current Size (cm) - Length 2.4 -Current Size (cm) - Width 0.5 -Current Size (cm) - Depth 0.3 -Total Square Cm 1.20 -Photo Taken No -Epithelialization None Present -Tunneling No -Undermining/Tunneling No -Circular Undermining No -Exudate Amt Small -Exudate Type Serous -Wound Margin Distinct, Outline Attached -Granulation Amt Small (1-33%) -Granulation Quality [place] -Slough/Fibrin Yes -Necrosis Amt Large (67-100%) -Necrotic Tissue Type Adherent Slough -Texture (Dot-wound Skin Appearance) Assessed -Moisture (Dot-wound Skin Appearance Assessed, ) Maceration -Color (Dot-wound Skin Appearance) Assessed,Palor -Temperature (Dot-wound Skin No Abnormality Appearance) (Pt Warm) -Tenderness on Palpation (Dot-wound Yes Skin Appearance) -Ulcer Cleansing Rinsed/ Irrigated with Saline -Foul Odor after Cleansing No -Anesthetic Used 5% Lidocaine Gel #2 L 5th toe -Combined with other wound No -Current Size (cm) - Length 0.7 -Current Size (cm) - Width 0.6 -Current Size (cm) - Depth 0.3 -Total Square Cm 0.42 -Photo Taken No -Epithelialization None Present -Tunneling No -Undermining/Tunneling No -Circular Undermining No -Exudate Amt Small -Exudate Type Serous -Wound Margin Distinct, Outline Attached -Granulation Amt None Present (0 %) -Slough/Fibrin Yes -Necrosis Amt Large (67-100%) -Necrotic Tissue Type Adherent Slough -Texture (Dot-wound Skin Appearance) Assessed, Scarring -Moisture (Dot-wound Skin Appearance Assessed ) -Color (Dot-wound Skin Appearance) Assessed -Temperature (Dot-wound Skin No Abnormality Appearance) (Pt Warm) -Tenderness on Palpation (Dot-wound Yes Skin Appearance) -Ulcer Cleansing Rinsed/ Irrigated with Saline -Foul Odor after Cleansing No -Anesthetic Used 5% Lidocaine Gel #1 L Grt Toe -Combined with other wound No -Current Size (cm) - Length 0.9 -Current Size (cm) - Width 0.3 -Current Size (cm) - Depth 0.3 -Total Square Cm 0.27 -Photo Taken No -Epithelialization None Present -Tunneling No -Undermining/Tunneling No -Circular Undermining No -Exudate Amt Small -Exudate Type Serous -Wound Margin Distinct, Outline Attached -Granulation Amt None Present (0 %) -Slough/Fibrin Yes -Necrosis Amt Large (67-100%) -Necrotic Tissue Type Adherent Slough -Texture (Dot-wound Skin Appearance) Assessed, Scarring -Moisture (Dot-wound Skin Appearance Assessed ) -Color (Dot-wound Skin Appearance) Assessed -Temperature (Dot-wound Skin No Abnormality Appearance) (Pt Warm) -Tenderness on Palpation (Dot-wound Yes Skin Appearance) -Ulcer Cleansing Rinsed/ Irrigated with Saline -Foul Odor after Cleansing No -Anesthetic Used 5% Lidocaine Gel WC - Nurse 2 - General Ulcer CM Notes Start: 07/24/20 09:33 Freq: Status: Active Protocol: Activity Type Activity Date Activity User E-Sign Co-Sign Detail Recorded Client Recorded Date Recorded By Document 08/21/20 10:36 [facility] [id number] 08/21/20 10:42 [facility] 08/21/20 10:36 Wound Center Nurse 2 [Procedure/Treatment] #3 4th lateral toe/amp site -Time 10:36 -Correct Patient Yes -Correct Side, Site, Position Yes -Correct Procedure Yes -Procedure Performed Yes -Type of Procedure Debridement -Clinical Debridement Subcutaneous -Tissue Removed Subcutaneous -Post Debridement (cm) - Length 1.6 -Post Debridement (cm) - Width 0.5 -Post Debridement (cm) - Depth 0.2 -Total Square (Post) (cm) 0.80 -Area of Debridement (cm) - Length 1.6 -Area of Debridement (cm) - Width 0.5 -Total Square (Area) (cm) 0.80 -Tunneling No -Undermining/Tunneling No -Circular Undermining No -Wound/Ulcer Outcome Not Healed -Ulcer Cleansing Rinsed/ Irrigated with Saline -Foul Odor after Cleansing No -Bioengineered Tissue No -Bleeding Controlled with Pressure -Offloading Yes -Type of Offloading Surgical Shoe -Treatment Response Procedure Tolerated Well -Debridement - Subq, 1st 20sq cm Yes #2 L 5th toe -Time 10:37 -Correct Patient Yes -Correct Side, Site, Position Yes -Correct Procedure Yes -Procedure Performed Yes -Type of Procedure Debridement -Clinical Debridement Subcutaneous -Tissue Removed Subcutaneous -Post Debridement (cm) - Length 1 -Post Debridement (cm) - Width 0.6 -Post Debridement (cm) - Depth 0.2 -Total Square (Post) (cm) 0.6 -Area of Debridement (cm) - Length 1 -Area of Debridement (cm) - Width 0.6 -Total Square (Area) (cm) 0.6 -Tunneling No -Undermining/Tunneling No -Circular Undermining No -Wound/Ulcer Outcome Not Healed -Ulcer Cleansing Rinsed/ Irrigated with Saline -Foul Odor after Cleansing No -Bioengineered Tissue No -Bleeding Controlled with Pressure -Offloading No -Treatment Response Procedure Tolerated Well -Debridement - Subq, 1st 20sq cm No #1 L Grt Toe -Time 10:37 -Correct Patient Yes -Correct Side, Site, Position Yes -Correct Procedure Yes -Procedure Performed Yes -Type of Procedure Debridement -Clinical Debridement Subcutaneous -Tissue Removed Subcutaneous -Post Debridement (cm) - Length 0.8 -Post Debridement (cm) - Width 0.5 -Post Debridement (cm) - Depth 0.2 -Total Square (Post) (cm) 0.40 -Area of Debridement (cm) - Length 0.8 -Area of Debridement (cm) - Width 0.5 -Total Square (Area) (cm) 0.40 -Tunneling No -Undermining/Tunneling No -Circular Undermining No -Wound/Ulcer Outcome Not Healed -Ulcer Cleansing Rinsed/ Irrigated with Saline -Foul Odor after Cleansing No -Bioengineered Tissue No -Bleeding Controlled with Pressure -Offloading Yes -Type of Offloading Surgical Shoe -Treatment Response Procedure Tolerated Well -Debridement - Subq, 1st 20sq cm No [See Physician Procedure note for Specifics] Pain Scale: 0-10 Numeric [Pain] -Is Patient Pain Free? Yes Musculoskeletal: Tenderness - to ulceration sites improved Neurological: Sensory exam intact to light touch and pain Psych/Mental Status: Normal Affect, Appropriate Debridement Note Post-Debridement Measurements/Treatment WC - Nurse 2 - General Ulcer CM Notes Start: 07/24/20 09:33 Freq: Status: Active Protocol: Activity Type Activity Date Activity User E-Sign Co-Sign Detail Recorded Client Recorded Date Recorded By Document 07/24/20 09:48 [facility] [id number] 07/24/20 10:02 Document 07/31/20 10:12 [facility] [id number] 07/31/20 10:28 Document 08/07/20 10:04 [facility] [id number] 08/07/20 10:17 Document 08/14/20 10:19 [facility] [id number] 08/14/20 10:22 Document 08/21/20 10:36 [id number] 08/21/20 10:42 JF 07/24/20 07/31/20 08/07/20 09:48 10:12 10:04 Wound Center Nurse 2 #3 4th lateral toe/amp site -Time 09:49 10:20 10:05 -Correct Patient No Yes Yes -Correct Side, Site, Position No Yes Yes -Correct Procedure No Yes Yes -Procedure Performed No Yes Yes -Type of Procedure Debridement Debridement -Clinical Debridement Subcutaneous Subcutaneous -Tissue Removed Subcutaneous Subcutaneous -Post Debridement (cm) - Length 2.5 1.8 -Post Debridement (cm) - Width 0.7 0.6 -Post Debridement (cm) - Depth 0.2 0.2 -Total Square (Post) (cm) 1.75 1.08 -Area of Debridement (cm) - Length 2.5 1.8 -Area of Debridement (cm) - Width 0.7 0.6 -Total Square (Area) (cm) 1.75 1.08 -Tunneling No No No -Undermining/Tunneling No No No -Circular Undermining No No No -Wound/Ulcer Outcome Not Healed Not Healed Not Healed -Ulcer Cleansing Rinsed/ Rinsed/ Rinsed/ Irrigated with Irrigated with Irrigated with Saline Saline Saline -Foul Odor after Cleansing No No No -Bioengineered Tissue No No No -Bleeding Controlled with Pressure Pressure Pressure -Offloading Yes Yes Yes -Type of Offloading Surgical Shoe Surgical Shoe Surgical Shoe -Treatment Response Procedure Procedure Procedure Tolerated Well Tolerated Well Tolerated Well -Debridement - Subq, 1st 20sq cm No Yes Yes #2 L 5th toe -Time 09:58 10:20 10:05 -Correct Patient Yes Yes Yes -Correct Side, Site, Position Yes Yes Yes -Correct Procedure Yes Yes Yes -Procedure Performed Yes Yes Yes -Type of Procedure Debridement Debridement Debridement -Clinical Debridement Subcutaneous Subcutaneous Subcutaneous -Tissue Removed Subcutaneous Subcutaneous Subcutaneous -Post Debridement (cm) - Length 0.8 0.9 0.8 -Post Debridement (cm) - Width 0.6 0.5 0.5 -Post Debridement (cm) - Depth 0.2 0.2 0.2 -Total Square (Post) (cm) 0.48 0.45 0.40 -Area of Debridement (cm) - Length 0.8 0.9 0.8 -Area of Debridement (cm) - Width 0.6 0.5 0.5 -Total Square (Area) (cm) 0.48 0.45 0.40 -Tunneling No No No -Undermining/Tunneling No No No -Circular Undermining No No No -Wound/Ulcer Outcome Not Healed Healed- Not Healed Surgical Closure -Ulcer Cleansing Rinsed/ Rinsed/ Rinsed/ Irrigated with Irrigated with Irrigated with Saline Saline Saline -Foul Odor after Cleansing No No No -Bioengineered Tissue No No No -Bleeding Controlled with Pressure Pressure Pressure -Offloading Yes Yes Yes -Type of Offloading Surgical Shoe Surgical Shoe Surgical Shoe -Treatment Response Procedure Procedure Procedure Tolerated Well Tolerated Well Tolerated Well -Debridement - Subq, 1st 20sq cm Yes No No #1 L Grt Toe -Time 10:01 10:26 10:08 -Correct Patient Yes Yes Yes -Correct Side, Site, Position Yes Yes Yes -Correct Procedure Yes Yes Yes -Procedure Performed Yes Yes Yes -Type of Procedure Debridement Debridement Debridement -Clinical Debridement Subcutaneous Subcutaneous Subcutaneous -Tissue Removed Subcutaneous Subcutaneous Subcutaneous -Post Debridement (cm) - Length 1 1 1 -Post Debridement (cm) - Width 0.7 0.6 0.5 -Post Debridement (cm) - Depth 0.1 0.2 0.1 -Total Square (Post) (cm) 0.7 0.6 0.5 -Area of Debridement (cm) - Length 1 1 1 -Area of Debridement (cm) - Width 0.7 0.6 0.5 -Total Square (Area) (cm) 0.7 0.6 0.5 -Tunneling No No No -Undermining/Tunneling No No No -Circular Undermining No No No -Wound/Ulcer Outcome Not Healed Not Healed Not Healed -Ulcer Cleansing Rinsed/ Rinsed/ Rinsed/ Irrigated with Irrigated with Irrigated with Saline Saline Saline -Foul Odor after Cleansing No No No -Bioengineered Tissue No No No -Bleeding Controlled with Pressure Pressure Pressure -Offloading Yes Yes Yes -Type of Offloading Surgical Shoe Surgical Shoe Surgical Shoe -Treatment Response Procedure Procedure Procedure Tolerated Well Tolerated Well Tolerated Well -Debridement - Subq, 1st 20sq cm No No No Pain Scale: 0-10 Numeric Is Patient Pain Free? Yes Yes Yes 08/14/20 08/21/20 10:19 10:36 Wound Center Nurse 2 #3 4th lateral toe/amp site -Time 10:19 10:36 -Correct Patient Yes Yes -Correct Side, Site, Position Yes Yes -Correct Procedure Yes Yes -Procedure Performed Yes Yes -Type of Procedure Debridement Debridement -Clinical Debridement Subcutaneous Subcutaneous -Tissue Removed Subcutaneous Subcutaneous -Post Debridement (cm) - Length 2 1.6 -Post Debridement (cm) - Width 0.5 0.5 -Post Debridement (cm) - Depth 0.2 0.2 -Total Square (Post) (cm) 1.0 0.80 -Area of Debridement (cm) - Length 2 1.6 -Area of Debridement (cm) - Width 0.5 0.5 -Total Square (Area) (cm) 1.0 0.80 -Tunneling No No -Undermining/Tunneling No No -Circular Undermining No No -Wound/Ulcer Outcome Not Healed Not Healed -Ulcer Cleansing Rinsed/ Rinsed/ Irrigated with Irrigated with Saline Saline -Foul Odor after Cleansing No No -Bioengineered Tissue No No -Bleeding Controlled with Pressure Pressure -Offloading Yes Yes -Type of Offloading Surgical Shoe Surgical Shoe -Treatment Response Procedure Procedure Tolerated Well Tolerated Well -Debridement - Subq, 1st 20sq cm Yes Yes #2 L 5th toe -Time 10:20 10:37 -Correct Patient Yes Yes -Correct Side, Site, Position Yes Yes -Correct Procedure Yes Yes -Procedure Performed Yes Yes -Type of Procedure Debridement Debridement -Clinical Debridement Subcutaneous Subcutaneous -Tissue Removed Subcutaneous Subcutaneous -Post Debridement (cm) - Length 0.8 1 -Post Debridement (cm) - Width 0.7 0.6 -Post Debridement (cm) - Depth 0.2 0.2 -Total Square (Post) (cm) 0.56 0.6 -Area of Debridement (cm) - Length 0.8 1 -Area of Debridement (cm) - Width 0.7 0.6 -Total Square (Area) (cm) 0.56 0.6 -Tunneling No No -Undermining/Tunneling No No -Circular Undermining No No -Wound/Ulcer Outcome Not Healed Not Healed -Ulcer Cleansing Rinsed/ Rinsed/ Irrigated with Irrigated with Saline Saline -Foul Odor after Cleansing No No -Bioengineered Tissue No No -Bleeding Controlled with Pressure Pressure -Offloading No No -Type of Offloading -Treatment Response Procedure Procedure Tolerated Well Tolerated Well -Debridement - Subq, 1st 20sq cm No No #1 L Grt Toe -Time 10:21 10:37 -Correct Patient Yes Yes -Correct Side, Site, Position Yes Yes -Correct Procedure Yes Yes -Procedure Performed Yes Yes -Type of Procedure Debridement Debridement -Clinical Debridement Subcutaneous Subcutaneous -Tissue Removed Subcutaneous Subcutaneous -Post Debridement (cm) - Length 0.9 0.8 -Post Debridement (cm) - Width 0.6 0.5 -Post Debridement (cm) - Depth 0.2 0.2 -Total Square (Post) (cm) 0.54 0.40 -Area of Debridement (cm) - Length 0.9 0.8 -Area of Debridement (cm) - Width 0.6 0.5 -Total Square (Area) (cm) 0.54 0.40 -Tunneling No No -Undermining/Tunneling No No -Circular Undermining No No -Wound/Ulcer Outcome Not Healed Not Healed -Ulcer Cleansing Rinsed/ Rinsed/ Irrigated with Irrigated with Saline Saline -Foul Odor after Cleansing No No -Bioengineered Tissue No No -Bleeding Controlled with Pressure Pressure -Offloading Yes Yes -Type of Offloading Surgical Shoe Surgical Shoe -Treatment Response Procedure Procedure Tolerated Well Tolerated Well -Debridement - Subq, 1st 20sq cm No No Pain Scale: 0-10 Numeric Is Patient Pain Free? Yes Yes WC - Nurse 3 - General Ulcer D/C NN Start: 07/24/20 09:33 Freq: Status: Active Protocol: Activity Type Activity Date Activity User E-Sign Co-Sign Detail Recorded Client Recorded Date Recorded By Document 07/24/20 10:20 DL [id number] 07/24/20 10:21 DL Document 07/31/20 10:37 MS [id number] 07/31/20 10:38 MS Document 08/07/20 10:57 DL [id number] 08/07/20 11:00 DL Document 08/14/20 10:42 DL [id number] 08/14/20 10:44 DL 07/24/20 07/31/20 08/07/20 10:20 10:37 10:57 Wound Care Nurse 3 #3 4th lateral toe/amp site -Ulcer Cleansing Rinsed/ Rinsed/ Rinsed/ Irrigated with Irrigated with Irrigated with Saline Saline Saline -Foul Odor after Cleansing No No No -Primary Dressing Applied C Hydrogel ($) C Hydrogel ($) -Other Dressing [facility] HYDROGEL, ADAPTIC -Primary Dressing Covered/Secured with Dry Gauze & Dry Gauze, Dry Gauze & Roll Gauze, Secured with Roll Gauze, Secured with Tape Secured with Tape Tape #2 L 5th toe -Ulcer Cleansing Rinsed/ Rinsed/ Rinsed/ Irrigated with Irrigated with Irrigated with Saline Saline Saline -Foul Odor after Cleansing No No No -Primary Dressing Applied C Hydrogel ($) -Other Dressing hydrogel ADAPTIC hydrogel -Primary Dressing Covered/Secured with Dry Gauze & Dry Gauze, Dry Gauze & Roll Gauze, Secured with Roll Gauze, Secured with Tape Secured with Tape Tape #1 L Grt Toe -Ulcer Cleansing Rinsed/ Rinsed/ Rinsed/ Irrigated with Irrigated with Irrigated with Saline Saline Saline -Foul Odor after Cleansing No No -Primary Dressing Applied C Hydrogel ($) C Hydrogel ($) -Other Dressing hydrogel ADAPTIC hydrogel -Primary Dressing Covered/Secured with Dry Gauze & Dry Gauze, Dry Gauze & Roll Gauze, Secured with Roll Gauze, Secured with Tape Secured with Tape Tape Treatment Response Procedure Procedure Tolerated Well Tolerated Well Pain Scale: 0-10 Numeric Is Patient Pain Free? Yes Yes WC - Visit Discharge Discharge Condition Stable Stable Stable Ambulatory Status Ambulatory, Ambulatory, Walker Walker Walker Transportation Private Auto Private Auto Medication Reconcilliation completed & No provided to patient/care provider Clinical Summary of Care Provided Yes Facility Type Home Health Home Health Orders Sent Yes Yes 08/14/20 10:42 Wound Care Nurse 3 #3 4th lateral toe/amp site -Ulcer Cleansing Rinsed/ Irrigated with Saline -Foul Odor after Cleansing No -Primary Dressing Applied NonAdherent Contact Layer -Other Dressing hydrogel -Primary Dressing Covered/Secured with Dry Gauze & Roll Gauze, Secured with Tape #2 L 5th toe -Ulcer Cleansing Rinsed/ Irrigated with Saline -Foul Odor after Cleansing No -Primary Dressing Applied NonAdherent Contact Layer -Other Dressing hydrogel -Primary Dressing Covered/Secured with Dry Gauze & Roll Gauze, Secured with Tape #1 L Grt Toe -Ulcer Cleansing Rinsed/ Irrigated with Saline -Foul Odor after Cleansing No -Primary Dressing Applied -Other Dressing hydrogel -Primary Dressing Covered/Secured with Dry Gauze & Roll Gauze, Secured with Tape Treatment Response Procedure Tolerated Well Pain Scale: 0-10 Numeric Is Patient Pain Free? Yes WC - Visit Discharge Discharge Condition Stable Ambulatory Status Ambulatory Transportation Private Auto Medication Reconcilliation completed & provided to patient/care provider Clinical Summary of Care Provided Facility Type Orders Sent Wound debrided: Hallux Laterality: Left Wound Grade/Stage: Luciano 1 Type of Debridement: Excisional debridement Anesthesia Used: 4% Lidocaine Solution Depth: in the subcutaneous layer Percentage of wound debrided: 100 Instrument Used: 3mm curette Tissue Removed: Tissue removed includes fibrous, devitalized, biofilm, and slough tissue Severity: Fat Layer Exposed Amount of bleeding with debridement: Mild Bleeding Controlled with: Pressure Patient tolerated procedure well - Additional Wound Wound debrided: Fifth digit Laterality: Left Wound Grade/Stage: Luciano 1 Type of Debridement: Excisional debridement Anesthesia Used: 4% Lidocaine Solution Depth: in the subcutaneous layer Percentage of wound debrided: 100 Instrument Used: 3mm curette Tissue Removed: Tissue removed includes fibrous, devitalized, biofilm, and slough tissue Severity: Fat Layer Exposed Amount of bleeding with debridement: Mild Bleeding Controlled with: Pressure Patient tolerated procedure: Patient tolerated procedure well - Additional Wound Wound debrided: Fourth digit amputation site Laterality: Left Wound Grade/Stage: Luciano 1 Type of Debridement: Excisional debridement Anesthesia Used: 4% Lidocaine Solution Depth: in the subcutaneous layer Percentage of wound debrided: 100 Instrument Used: 3mm curette Tissue Removed: Tissue removed includes fibrous, devitalized, biofilm, and slough tissue Severity: Fat Layer Exposed Amount of bleeding with debridement: Mild Bleeding Controlled with: Pressure Patient tolerated procedure: Patient tolerated procedure well Assessment/Plan Active Problems (Last Reviewed 07/07/20 @ 17:[address] Cathie Das DO) Non-pressure chronic ulcer of other part of left foot with fat layer exposed (Chronic) Amputated toe (Chronic) Type 2 diabetes mellitus (Chronic) PAD (peripheral artery disease) (Chronic) Peripheral arterial occlusive disease (Chronic) Assessment: Left first digit plantar medial ulcer. Left fifth digit lateral ulcer. Left fourth digit amputation site ulceration. 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 Peripheral vascular disease status post intervention 06/12/[address] Nicholson. Diabetes. history tobacco abuse Plan: Patient seen and examined with daughter present. Patient has peripheral vascular disease. Patient has been seeing Dr. Nicholson for this. Patient had intervention on 06/12/2020. Since then patient has had some reperfusion pain with swelling that is worse at night. Patient followed up with Dr Nicholson with no other intervention planned. Patient is to get repeat scans soon. This pain has improved but still present at night. Patient saw Dr. Tenorio on 06/26/2020 and he prescribed gabapentin which patient relates helps. Patient has recent LEAS prior to intervention with Dr. Nicholson with left monophasic pulses with an JENY of 0.59 from the PT artery and a TBI of 0.12. On the right side the DP and PT are monophasic as well with an JENY of 0.53 on the PT artery and 0.75 to the DP artery and a TBI of 0.3. 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 Patient was hospitalized on 07/07/20 for worsening 4th toe ulceration and blood in stool. Patient was noted to have rapid increase in gangrene to 4th digit. Amputation of 4th digit and debridement of 1st and 5th digit was performed 07/08/20. OM was confirmed with PsAg. Patient was discharged on Levaquin every other day due to kidney function she has since finished. Left first toe and fifth toe and fourth toe amputation site were sharply debrided after verbal consent was obtained. Continue wound care daily. Heel fissure has healed. Reviewed proper wound care with patient. Discussed with the patient the importance of offloading the sites with wide enough shoe gear if she is to be wearing shoes, proper diet, good blood sugar control. Patient has offloading boot. All questions were answered patient satisfaction. Discussed with the patient all concerning signs and symptoms to watch out for and to contact office if he either presents. Patient's follow-up in 1 week. This note was generated with [employer] dictation software. It may contain incorrect words, spelling, and punctuation that were not noted in checking the note before signing.
== END 2020-08-22 23:59 ==
LOC: WC 09:45
PROVIDERS: PCP Family Medicine; Referring Provider Podiatrist; Visit Provider Podiatrist Foot & Ankle Surgery
DX: E11.621 Type 2 diabetes mellitus with foot ulcer (principal); L97.522 Non-pressure chronic ulcer of other part of left foot with fat layer exposed; M86.072 Acute hematogenous osteomyelitis, left ankle and foot; E11.52 Type 2 diabetes mellitus with diabetic peripheral angiopathy with gangrene; I77.9 Disorder of arteries and arterioles, unspecified; I73.9 Peripheral vascular disease, unspecified; Z87.891 Personal history of nicotine dependence; G89.18 Other acute postprocedural pain; Z87.820 Personal history of traumatic brain injury; E11.69 Type 2 diabetes mellitus with other specified complication; L03.116 Cellulitis of left lower limb; Z79.82 Long term (current) use of aspirin; Z79.84 Long term (current) use of oral hypoglycemic drugs; Z82.49 Family history of ischemic heart disease and other diseases of the circulatory system; Z89.422 Acquired absence of other left toe(s); Z89.412 Acquired absence of left great toe
CPT/HCPCS: 11042; 36415; 80053; 80061; 85025; 86140

== ENCOUNTER → 2020-08-29 10:43 | Outpatient (CLI) | payer MEDICARE, SELFPAY ==
[2020-07-04 11:29] VITALS: BMI 22.4
[2020-08-28 10:08] VITALS: BMI 23.6
--- NOTE | 2020-08-29 10:46 | ADUL_ITS ---
Reason For Study: SCRICTURE OF ARTERY Left Velocities Common Iliac Artery, dist = 501.4 cm./sec. Common Femoral Artery, mid = 155.6 cm./sec. Supf Femoral Artery, prox = 75.4 cm./sec. Supf Femoral Artery, mid = 87.4 cm./sec. Supf Femoral Artery, dist. = 45.7 cm./sec. Profunda Femoral Artery = 151.1 cm./sec. Popliteal Artery, prox. = 17.7 cm./sec. Popliteal Artery, mid = 45.5 cm./sec. Popliteal Artery, dist = 34.8 cm./sec. Post. Tibial Artery, prox = 34.1 cm./sec. Post. Tibial Artery, mid = 34.8 cm./sec. Post. Tibial Artery, dist = 32.7 cm./sec. Peroneal Artery, prox = 17.0 cm./sec. Peroneal Artery, mid = 32.6 cm./sec. Peroneal Artery,dist = 31.2 cm./sec. Ant. Tibial Artery, prox = 29.8 cm./sec. Ant. Tibial Artery, mid = 46.2 cm./sec. Ant. Tibial Artery, dist = 26.2 cm./sec. 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 Ordering Physician: Pablo Nicholson Referring Physician: Mc Marks Performed By: Sivan Lofton, RDCS, RVT
== END ==
PROVIDERS: PCP Family Medicine; Referring Provider Surgery Vascular Surgery; Visit Provider Surgery Vascular Surgery
DX: I70.213 Atherosclerosis of native arteries of extremities with intermittent claudication, bilateral legs (principal); I77.1 Stricture of artery; M79.675 Pain in left toe(s); I25.10 Atherosclerotic heart disease of native coronary artery without angina pectoris; I10 Essential (primary) hypertension; E11.9 Type 2 diabetes mellitus without complications
CPT/HCPCS: 93926

== ENCOUNTER 2020-09-18 10:30 | Outpatient (RCR) | payer MEDICARE, SELFPAY ==
[2020-08-23 00:39] VITALS: BP 127/71; PULSE 69; RESP 16; TEMP 36.3
[2020-08-28 10:08] VITALS: BP 117/55; PULSE 61; RESP 18; TEMP 36.6; BMI 23.6
--- NOTE | 2020-08-28 12:48 | PN.PCM_ITS ---
(1) Non-pressure chronic ulcer of other part of left foot with fat layer exposed Status: Chronic Code(s): L97.522 - Non-pressure chronic ulcer of other part of left foot with fat layer exposed (2) Amputated toe Status: Chronic Qualifiers: Laterality: left Qualified Code(s): S98.132A - Complete traumatic amputation of one left lesser toe, initial encounter Code(s): S98.139A - Complete traumatic amputation of one unspecified lesser toe, initial encounter (3) PAD (peripheral artery disease) Status: Chronic Code(s): I73.9 - Peripheral vascular disease, unspecified (4) Type 2 diabetes mellitus Status: Chronic Qualifiers: Diabetes mellitus complication status: with circulatory complication Diabetes mellitus complication detail: with peripheral angiopathy with gangrene Code(s): E11.9 - Type 2 diabetes mellitus without complications (5) History of tobacco abuse Status: Resolved Code(s): Z87.891 - Personal history of nicotine dependence Type of Wound Date of Service: 08/29/20 Chief Complaint: Left foot first, fifth digit ulceration. Left fourth digit a mputation site ulceration. PAD History of Wound: Patient is referral from [facility] 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 Patient has a history of smoking. Patient is diabetic as well but states is very well controlled averaging blood sugar in the low 100s. Patient denies any trauma or rubbing to start the wounds. Patient had intervention done by Dr. Nicholson on 06/12/2020. Since then patient has complaints of post procedure reperfusion pain. She states it is worse at night and she has some relief with dangling of the foot. She has had some increase in redness and swelling noted as well. Patient saw Dr. Tenorio June 26, 2020 and was started on 100mg gabapentin TID. She has noticed some improvement in her pain. 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 Patient was hosppitalized 07/07/20 for worsening toe wound and blood in stool. 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 Amputation of 4th digit with debridement of 1st and 5th digit ulcerations was performed 07/08/20. 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 Patient was discharged on levaquin every other day due to impairent of her kidneys. Patient was also discharged on oxycodone. Patient relates improvement of her pain since surgery. Patient relates she is no longer taking strong pain meds. Patient continues at the wound care center for continued care ulcerations Progress of Wound: 4th toe amputation site stable. 1st and 5th digit ulcers improved. erythema/edema resolved Subjective: Patient seen and examined resting comfortably. Patient denies any new pedal complaints. Patient denies any nausea, fever, chills, chest pain, shortness of breath, cough, streaking, purulence, vomiting. Patient relates to having some pain to her left lower extremity - Physical Exam Vital Signs Temp Pulse Resp BP 97.8 F 61 18 117/55 L 08/28/20 10:08 08/28/20 10:08 08/28/20 10:08 08/28/20 10:08 General: Alert, Oriented x3 HEENT: Atraumatic Extremities: No clubbing, No cyanosis, No edema, Capillary Refill Less than 3 Seconds - Skin warm, No Calf Tenderness, Diminished Peripheral Pulses, Tenderness - to ulceration sites Skin: Ulcer/ Wound - First, fifth digits and fourth toe amputation site. No malodor, erythema, purulence, probing to bone, streaking, fluctuation, crepitus, or other signs of infection. Skin is atrophic and hairless. Granular/fibrotic base with most fibrotic tissue noted to fourth amputation site. Wound Measurements and Assessment WC - Nurse 1 - General Ulcer Measurement Start: 08/28/20 09:34 Freq: Status: Active Protocol: Activity Type Activity Date Activity User E-Sign Co-Sign Detail Recorded Client Recorded Date Recorded By Document 08/28/20 10:08 SHEILA [id number] 08/28/20 10:22 SHEILA 08/28/20 10:08 Wound Center Nurse 1 [Ulcer Assessment] #3 4th lateral toe/amp site -Current Size (cm) - Length 2.2 -Current Size (cm) - Width 0.5 -Current Size (cm) - Depth 0.5 -Total Square Cm 1.10 -Photo Taken No -Exudate Amt Small -Wound Margin Distinct, Outline Attached -Granulation Amt Small (1-33%) -Granulation Quality Pale,[place] -Necrosis Amt Large (67-100%) -Necrotic Tissue Type Adherent Slough -Structure Exposed N/A -Texture (Dot-wound Skin Appearance) Localized Edema ,Scarring -Moisture (Dot-wound Skin Appearance No Abnormality ) -Color (Dot-wound Skin Appearance) Erythema -Temperature (Dot-wound Skin No Abnormality Appearance) (Pt Warm) -Tenderness on Palpation (Dot-wound No Skin Appearance) -Ulcer Cleansing Wound Cleanser -Foul Odor after Cleansing No -Anesthetic Used 4% Lidocaine Solution #2 L 5th toe -Current Size (cm) - Length 0.9 -Current Size (cm) - Width 0.7 -Current Size (cm) - Depth 0.1 -Total Square Cm 0.63 -Photo Taken No -Exudate Amt Small -Exudate Type Serosanguineous -Wound Margin Distinct, Outline Attached -Granulation Amt None Present (0 %) -Necrosis Amt Large (67-100%) -Necrotic Tissue Type Adherent Slough -Structure Exposed N/A -Texture (Dot-wound Skin Appearance) Localized Edema ,Scarring -Moisture (Dot-wound Skin Appearance No Abnormality ) -Color (Dot-wound Skin Appearance) Erythema,Rubor -Temperature (Dot-wound Skin No Abnormality Appearance) (Pt Warm) -Tenderness on Palpation (Dot-wound No Skin Appearance) -Ulcer Cleansing Wound Cleanser -Foul Odor after Cleansing No -Anesthetic Used 4% Lidocaine Solution,5% Lidocaine Gel #1 L Grt Toe -Current Size (cm) - Length 0.8 -Current Size (cm) - Width 0.5 -Current Size (cm) - Depth 0.2 -Total Square Cm 0.40 -Photo Taken No -Exudate Amt Small -Exudate Type Serosanguineous -Wound Margin Thickened -Granulation Amt None Present (0 %) -Necrosis Amt Large (67-100%) -Necrotic Tissue Type Adherent Slough -Structure Exposed N/A -Texture (Dot-wound Skin Appearance) Localized Edema ,Scarring -Moisture (Dot-wound Skin Appearance No Abnormality ) -Color (Dot-wound Skin Appearance) Erythema,Rubor -Temperature (Dot-wound Skin No Abnormality Appearance) (Pt Warm) -Tenderness on Palpation (Dot-wound No Skin Appearance) -Ulcer Cleansing Wound Cleanser -Foul Odor after Cleansing No -Anesthetic Used 4% Lidocaine Solution,5% Lidocaine Gel WC - Nurse 2 - General Ulcer CM Notes Start: 08/28/20 09:34 Freq: Status: Active Protocol: Activity Type Activity Date Activity User E-Sign Co-Sign Detail Recorded Client Recorded Date Recorded By Document 08/28/20 10:33 RICHI [id number] 08/28/20 10:37 RICHI 08/28/20 10:33 Wound Center Nurse 2 [Procedure/Treatment] #3 4th lateral toe/amp site -Time 10:35 -Correct Patient Yes -Correct Side, Site, Position Yes -Correct Procedure Yes -Procedure Performed Yes -Type of Procedure Debridement -Clinical Debridement Subcutaneous -Tissue Removed Subcutaneous -Post Debridement (cm) - Length 2.0 -Post Debridement (cm) - Width 0.6 -Post Debridement (cm) - Depth 0.2 -Total Square (Post) (cm) 1.20 -Area of Debridement (cm) - Length 2.0 -Area of Debridement (cm) - Width 0.6 -Total Square (Area) (cm) 1.20 -Tunneling No -Undermining/Tunneling No -Circular Undermining No -Wound/Ulcer Outcome Not Healed -Ulcer Cleansing Rinsed/ Irrigated with Saline -Foul Odor after Cleansing No -Bioengineered Tissue No -Bleeding Controlled with Pressure -Offloading Yes -Type of Offloading Surgical Shoe -Treatment Response Procedure Tolerated Well -Debridement - Subq, 1st 20sq cm Yes #2 L 5th toe -Time 10:36 -Correct Patient Yes -Correct Side, Site, Position Yes -Correct Procedure Yes -Procedure Performed Yes -Type of Procedure Debridement -Clinical Debridement Subcutaneous -Tissue Removed Subcutaneous -Post Debridement (cm) - Length 0.6 -Post Debridement (cm) - Width 0.6 -Post Debridement (cm) - Depth 0.2 -Total Square (Post) (cm) 0.36 -Area of Debridement (cm) - Length 0.6 -Area of Debridement (cm) - Width 0.6 -Total Square (Area) (cm) 0.36 -Tunneling No -Undermining/Tunneling No -Circular Undermining No -Wound/Ulcer Outcome Not Healed -Ulcer Cleansing Rinsed/ Irrigated with Saline -Foul Odor after Cleansing No -Bioengineered Tissue No -Bleeding Controlled with Pressure -Offloading Yes -Type of Offloading Surgical Shoe -Treatment Response Procedure Tolerated Well -Debridement - Subq, 1st 20sq cm No #1 L Grt Toe -Time 10:37 -Correct Patient Yes -Correct Side, Site, Position Yes -Correct Procedure Yes -Procedure Performed Yes -Type of Procedure Debridement -Clinical Debridement Subcutaneous -Tissue Removed Subcutaneous -Post Debridement (cm) - Length 0.8 -Post Debridement (cm) - Width 0.4 -Post Debridement (cm) - Depth 0.2 -Total Square (Post) (cm) 0.32 -Area of Debridement (cm) - Length 0.8 -Area of Debridement (cm) - Width 0.4 -Total Square (Area) (cm) 0.32 -Tunneling No -Undermining/Tunneling No -Circular Undermining No -Wound/Ulcer Outcome Not Healed -Ulcer Cleansing Rinsed/ Irrigated with Saline -Foul Odor after Cleansing No -Bioengineered Tissue No -Bleeding Controlled with Pressure -Offloading Yes -Type of Offloading Surgical Shoe -Treatment Response Procedure Tolerated Well -Debridement - Subq, 1st 20sq cm No [See Physician Procedure note for Specifics] Pain Scale: 0-10 Numeric [Pain] -Is Patient Pain Free? Yes WC - Nurse 3 - General Ulcer D/C NN Start: 08/28/20 09:34 Freq: Status: Active Protocol: Activity Type Activity Date Activity User E-Sign Co-Sign Detail Recorded Client Recorded Date Recorded By Document 08/28/20 10:46 RICHI [id number] 08/28/20 10:49 JF Document 08/28/20 10:52 DL [id number] 08/28/20 10:56 DL 08/28/20 08/28/20 10:46 10:52 Wound Care Nurse 3 [Wound Dressing] #3 4th lateral toe/amp site -Ulcer Cleansing Rinsed/ Rinsed/ Irrigated with Irrigated with Saline Saline -Foul Odor after Cleansing No No -Other Dressing moist gauze moist gauze -Primary Dressing Covered/Secured Dry Gauze,Dry Dry Gauze,Dry with Gauze & Roll Gauze & Roll Gauze,Secured Gauze,Secured with Tape with Tape #2 L 5th toe -Ulcer Cleansing Rinsed/ Rinsed/ Irrigated with Irrigated with Saline Saline -Foul Odor after Cleansing No No -Primary Dressing Applied NonAdherent NonAdherent Contact Layer Contact Layer -Other Dressing hydrogel hydrogel -Primary Dressing Covered/Secured Dry Gauze,Dry Dry Gauze & with Gauze & Roll Roll Gauze, Gauze,Secured Secured with with Tape Tape #1 L Grt Toe -Ulcer Cleansing Rinsed/ Irrigated with Saline -Foul Odor after Cleansing No -Primary Dressing Applied NonAdherent Contact Layer -Other Dressing hydrogel -Primary Dressing Covered/Secured Dry Gauze & with Roll Gauze, Secured with Tape [Post Procedure Tolerated] -Treatment Response Procedure Tolerated Well WC - Visit Discharge [Visit Discharge Information] -Discharge Condition Stable -Ambulatory Status Ambulatory,Cane -Transportation Private Auto Musculoskeletal: Tenderness - to ulceration sites Neurological: Sensory exam intact to light touch and pain, - - Some decrease in epicritic sensation noted Psych/Mental Status: Normal Affect, Appropriate Debridement Note Post-Debridement Measurements/Treatment WC - Nurse 2 - General Ulcer CM Notes Start: 08/28/20 09:34 Freq: Status: Active Protocol: Activity Type Activity Date Activity User E-Sign Co-Sign Detail Recorded Client Recorded Date Recorded By Document 08/28/20 10:33 RICHI [id number] 08/28/20 10:37 RICHI 08/28/20 10:33 Wound Center Nurse 2 #3 4th lateral toe/amp site -Time 10:35 -Correct Patient Yes -Correct Side, Site, Position Yes -Correct Procedure Yes -Procedure Performed Yes -Type of Procedure Debridement -Clinical Debridement Subcutaneous -Tissue Removed Subcutaneous -Post Debridement (cm) - Length 2.0 -Post Debridement (cm) - Width 0.6 -Post Debridement (cm) - Depth 0.2 -Total Square (Post) (cm) 1.20 -Area of Debridement (cm) - Length 2.0 -Area of Debridement (cm) - Width 0.6 -Total Square (Area) (cm) 1.20 -Tunneling No -Undermining/Tunneling No -Circular Undermining No -Wound/Ulcer Outcome Not Healed -Ulcer Cleansing Rinsed/ Irrigated with Saline -Foul Odor after Cleansing No -Bioengineered Tissue No -Bleeding Controlled with Pressure -Offloading Yes -Type of Offloading Surgical Shoe -Treatment Response Procedure Tolerated Well -Debridement - Subq, 1st 20sq cm Yes #2 L 5th toe -Time 10:36 -Correct Patient Yes -Correct Side, Site, Position Yes -Correct Procedure Yes -Procedure Performed Yes -Type of Procedure Debridement -Clinical Debridement Subcutaneous -Tissue Removed Subcutaneous -Post Debridement (cm) - Length 0.6 -Post Debridement (cm) - Width 0.6 -Post Debridement (cm) - Depth 0.2 -Total Square (Post) (cm) 0.36 -Area of Debridement (cm) - Length 0.6 -Area of Debridement (cm) - Width 0.6 -Total Square (Area) (cm) 0.36 -Tunneling No -Undermining/Tunneling No -Circular Undermining No -Wound/Ulcer Outcome Not Healed -Ulcer Cleansing Rinsed/ Irrigated with Saline -Foul Odor after Cleansing No -Bioengineered Tissue No -Bleeding Controlled with Pressure -Offloading Yes -Type of Offloading Surgical Shoe -Treatment Response Procedure Tolerated Well -Debridement - Subq, 1st 20sq cm No #1 L Grt Toe -Time 10:37 -Correct Patient Yes -Correct Side, Site, Position Yes -Correct Procedure Yes -Procedure Performed Yes -Type of Procedure Debridement -Clinical Debridement Subcutaneous -Tissue Removed Subcutaneous -Post Debridement (cm) - Length 0.8 -Post Debridement (cm) - Width 0.4 -Post Debridement (cm) - Depth 0.2 -Total Square (Post) (cm) 0.32 -Area of Debridement (cm) - Length 0.8 -Area of Debridement (cm) - Width 0.4 -Total Square (Area) (cm) 0.32 -Tunneling No -Undermining/Tunneling No -Circular Undermining No -Wound/Ulcer Outcome Not Healed -Ulcer Cleansing Rinsed/ Irrigated with Saline -Foul Odor after Cleansing No -Bioengineered Tissue No -Bleeding Controlled with Pressure -Offloading Yes -Type of Offloading Surgical Shoe -Treatment Response Procedure Tolerated Well -Debridement - Subq, 1st 20sq cm No Pain Scale: 0-10 Numeric Is Patient Pain Free? Yes WC - Nurse 3 - General Ulcer D/C NN Start: 08/28/20 09:34 Freq: Status: Active Protocol: Activity Type Activity Date Activity User E-Sign Co-Sign Detail Recorded Client Recorded Date Recorded By Document 08/28/20 10:46 RICHI [id number] 08/28/20 10:49 RICHI Document 08/28/20 10:52 DL [id number] 08/28/20 10:56 DL 08/28/20 08/28/20 10:46 10:52 Wound Care Nurse 3 #3 4th lateral toe/amp site -Ulcer Cleansing Rinsed/ Rinsed/ Irrigated with Irrigated with Saline Saline -Foul Odor after Cleansing No No -Other Dressing moist gauze moist gauze -Primary Dressing Covered/Secured with Dry Gauze,Dry Dry Gauze,Dry Gauze & Roll Gauze & Roll Gauze,Secured Gauze,Secured with Tape with Tape #2 L 5th toe -Ulcer Cleansing Rinsed/ Rinsed/ Irrigated with Irrigated with Saline Saline -Foul Odor after Cleansing No No -Primary Dressing Applied NonAdherent NonAdherent Contact Layer Contact Layer -Other Dressing hydrogel hydrogel -Primary Dressing Covered/Secured with Dry Gauze,Dry Dry Gauze & Gauze & Roll Roll Gauze, Gauze,Secured Secured with with Tape Tape #1 L Grt Toe -Ulcer Cleansing Rinsed/ Irrigated with Saline -Foul Odor after Cleansing No -Primary Dressing Applied NonAdherent Contact Layer -Other Dressing hydrogel -Primary Dressing Covered/Secured with Dry Gauze & Roll Gauze, Secured with Tape Treatment Response Procedure Tolerated Well WC - Visit Discharge Discharge Condition Stable Ambulatory Status Ambulatory,Cane Transportation Private Auto Wound debrided: Fifth toe Laterality: Left Wound Grade/Stage: Luciano 1 Type of Debridement: Excisional debridement Anesthesia Used: 5% Lidocaine Gel Depth: in the subcutaneous layer Percentage of wound debrided: 100 Instrument Used: 3mm curette Tissue Removed: Tissue removed includes fibrous, devitalized, biofilm, and slough tissue Severity: Fat Layer Exposed Amount of bleeding with debridement: Mild Bleeding Controlled with: Pressure Patient tolerated procedure well - Additional Wound Wound debrided: First toe Laterality: Left Wound Grade/Stage: Luciano 1 Type of Debridement: Excisional debridement Anesthesia Used: 5% Lidocaine Gel Depth: in the subcutaneous layer Percentage of wound debrided: 100 Instrument Used: 3mm curette Tissue Removed: Tissue removed includes fibrous, devitalized, biofilm, and slough tissue Severity: Fat Layer Exposed Amount of bleeding with debridement: Moderate Bleeding Controlled with: Pressure Patient tolerated procedure: Patient tolerated procedure well - Additional Wound Wound debrided: Fourth digit amputation site Laterality: Left Wound Grade/Stage: Luciano 1 Type of Debridement: Excisional debridement Anesthesia Used: 5% Lidocaine Gel Depth: in the subcutaneous layer Percentage of wound debrided: 100 Instrument Used: 3mm curette Tissue Removed: Tissue removed includes fibrous, devitalized, biofilm, and slough tissue Severity: Fat Layer Exposed Amount of bleeding with debridement: Mild Bleeding Controlled with: Pressure Patient tolerated procedure: Patient tolerated procedure well Assessment/Plan Assessment: Left first digit plantar medial ulcer. Left fifth digit lateral ulcer. Left fourth digit amputation site ulceration. 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 Peripheral vascular disease status post intervention 06/12/[address] Nicholson. Diabetes. history tobacco abuse Plan: Patient seen and examined with daughter present. Wounds are to be improved with smaller size. Good healthy bleeding was noted especially to the hallux wound will continue daily dressing changes. Continue hydrogel to first and fifth toes and Santyl to the fourth amputation site. Patient has peripheral vascular disease. Patient has been seeing Dr. Nicholson for this. Patient had intervention on 06/12/2020. Since then patient has had some reperfusion pain with swelling that is worse at night. Patient followed up with Dr Nicholson with no other intervention planned. Patient is to get repeat scans tomorrow. This pain has improved but still present at night. Patient saw Dr. Tenorio on 06/26/2020 and he prescribed gabapentin which patient relates helps some. Patient has recent LEAS prior to intervention with Dr. Nicholson with left monophasic pulses with an JENY of 0.59 from the PT artery and a TBI of 0.12. On the right side the DP and PT are monophasic as well with an JENY of 0.53 on the PT artery and 0.75 to the DP artery and a TBI of 0.3. 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 Patient was hospitalized on 07/07/20 for worsening 4th toe ulceration and blood in stool. Patient was noted to have rapid increase in gangrene to 4th digit. Amputation of 4th digit and debridement of 1st and 5th digit was performed 07/08/20. OM was confirmed with PsAg. Patient was discharged on Levaquin every other day due to kidney function she has since finished. Left first toe and fifth toe and fourth toe amputation site were sharply debrided after verbal consent was obtained. Continue wound care daily. Heel fissure has healed. Reviewed proper wound care with patient. Discussed with the patient the importance of offloading the sites with wide enough shoe gear if she is to be wearing shoes, proper diet, good blood sugar control. Patient has offloading boot. All questions were answered patient satisfaction. Discussed with the patient all concerning signs and symptoms to watch out for and to contact office if he either presents. Patient's follow-up in 1 week. This note was generated with [facility] [employer] dictation software. It may contain incorrect words, spelling, and punctuation that were not noted in checking the note before signing.
[2020-09-04 10:22] VITALS: BP 141/56; PULSE 69; RESP 16; TEMP 36.6; BMI 23.6
--- NOTE | 2020-09-04 12:28 | PCM.WC.PN ---
(1) Non-pressure chronic ulcer of other part of left foot with fat layer exposed Status: Chronic Code(s): L97.522 - Non-pressure chronic ulcer of other part of left foot with fat layer exposed (2) Amputated toe Status: Chronic Qualifiers: Laterality: left Qualified Code(s): S98.132A - Complete traumatic amputation of one left lesser toe, initial encounter Code(s): S98.139A - Complete traumatic amputation of one unspecified lesser toe, initial encounter (3) PAD (peripheral artery disease) Status: Chronic Code(s): I73.9 - Peripheral vascular disease, unspecified (4) Type 2 diabetes mellitus Status: Chronic Qualifiers: Diabetes mellitus complication status: with circulatory complication Diabetes mellitus complication detail: with peripheral angiopathy with gangrene Code(s): E11.9 - Type 2 diabetes mellitus without complications (5) History of tobacco abuse Status: Resolved Code(s): Z87.891 - Personal history of nicotine dependence Type of Wound Date of Service: 09/06/20 Chief Complaint: Left foot first, fifth digit ulceration. Left fourth digit amputation site ulceration. PAD History of Wound: Patient is referral from [facility] 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 Patient has a history of smoking. Patient is diabetic as well but states is very well controlled averaging blood sugar in the low 100s. Patient denies any trauma or rubbing to start the wounds. Patient had intervention done by Dr. Nicholson on 06/12/2020. Since then patient has complaints of post procedure reperfusion pain. She states it is worse at night and she has some relief with dangling of the foot. She has had some increase in redness and swelling noted as well. Patient saw Dr. Tenorio June 26, 2020 and was started on 100mg gabapentin TID. She has noticed some improvement in her pain. 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 Patient was hosppitalized 07/07/20 for worsening toe wound and blood in stool. 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 Amputation of 4th digit with debridement of 1st and 5th digit ulcerations was performed 07/08/20. 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 Patient was discharged on levaquin every other day due to impairent of her kidneys. Patient was also discharged on oxycodone. Patient relates improvement of her pain since surgery. Patient relates she is no longer taking strong pain meds. Patient continues at the wound care center for continued care ulcerations. Patient had follow-up scan with Dr. Nicholson and has yet to receive the results. Progress of Wound: 4th toe amputation site improved. 1st and 5th digit ulcers improved. erythema/edema resolved Subjective: Patient seen and examined resting comfortably. Patient denies any new pedal complaints. Patient denies any nausea, fever, chills, chest pain, shortness of breath, cough, streaking, purulence, vomiting. Patient relates pain is well controlled. Patient presents today without her daughter - Physical Exam Vital Signs Temp Pulse Resp BP 98 F 69 16 141/56 H 09/04/20 10:22 09/04/20 10:22 09/04/20 10:22 09/04/20 10:22 General: Alert, Oriented x3 HEENT: Atraumatic Extremities: No cyanosis, No edema, Capillary Refill Less than 3 Seconds, No Calf Tenderness, Diminished Peripheral Pulses Skin: Ulcer/ Wound - Medial first lateral fifth digit and fourth digit amputation site left foot. No malodor, erythema, purulence, probing to bone, streaking, fluctuation, crepitus, or other signs of infection. Skin is atrophic and hairless. Granular base first and fifth digits. Fibrotic base to fourth amp site. Wound Measurements and Assessment WC - Nurse 1 - General Ulcer Measurement Start: 08/28/20 09:34 Freq: Status: Active Protocol: Activity Type Activity Date Activity User E-Sign Co-Sign Detail Recorded Client Recorded Date Recorded By Document 09/04/20 10:22 [facility] [id number] 09/04/20 10:33 [facility] 09/04/20 10:22 Wound Center Nurse 1 [Ulcer Assessment] #3 4th lateral toe/amp site -Combined with other wound No -Current Size (cm) - Length 2.3 -Current Size (cm) - Width 0.4 -Current Size (cm) - Depth 0.3 -Total Square Cm 0.92 -Photo Taken No -Epithelialization None Present -Tunneling No -Undermining/Tunneling No -Circular Undermining No -Exudate Amt Small -Exudate Type Serous -Wound Margin Distinct, Outline Attached -Granulation Amt None Present (0 %) -Slough/Fibrin Yes -Necrosis Amt Large (67-100%) -Necrotic Tissue Type Adherent Slough -Texture (Dot-wound Skin Appearance) Assessed, Scarring -Moisture (Dot-wound Skin Appearance Assessed ) -Color (Dot-wound Skin Appearance) Assessed -Temperature (Dot-wound Skin No Abnormality Appearance) (Pt Warm) -Tenderness on Palpation (Dot-wound Yes Skin Appearance) -Ulcer Cleansing Rinsed/ Irrigated with Saline -Foul Odor after Cleansing No -Anesthetic Used 5% Lidocaine Gel #2 L 5th toe -Combined with other wound No -Current Size (cm) - Length 0.8 -Current Size (cm) - Width 0.6 -Current Size (cm) - Depth 0.3 -Total Square Cm 0.48 -Photo Taken No -Epithelialization None Present -Tunneling No -Undermining/Tunneling No -Circular Undermining No -Exudate Amt Small -Exudate Type Serous -Wound Margin Distinct, Outline Attached -Granulation Amt None Present (0 %) -Slough/Fibrin Yes -Necrosis Amt Large (67-100%) -Necrotic Tissue Type Adherent Slough -Texture (Dot-wound Skin Appearance) Assessed, Scarring -Moisture (Dot-wound Skin Appearance Assessed ) -Color (Dot-wound Skin Appearance) Assessed -Temperature (Dot-wound Skin No Abnormality Appearance) (Pt Warm) -Tenderness on Palpation (Dot-wound No Skin Appearance) -Ulcer Cleansing Rinsed/ Irrigated with Saline -Foul Odor after Cleansing No -Anesthetic Used 5% Lidocaine Gel #1 L Grt Toe -Combined with other wound No -Current Size (cm) - Length 0.7 -Current Size (cm) - Width 0.2 -Current Size (cm) - Depth 0.3 -Total Square Cm 0.14 -Photo Taken No -Epithelialization None Present -Tunneling No -Undermining/Tunneling No -Circular Undermining No -Exudate Amt Small -Exudate Type Serous -Wound Margin Distinct, Outline Attached -Granulation Amt None Present (0 %) -Slough/Fibrin Yes -Necrosis Amt Large (67-100%) -Necrotic Tissue Type Adherent Slough -Texture (Dot-wound Skin Appearance) Assessed, Scarring -Moisture (Dot-wound Skin Appearance Assessed ) -Color (Dot-wound Skin Appearance) Assessed -Temperature (Dot-wound Skin No Abnormality Appearance) (Pt Warm) -Tenderness on Palpation (Dot-wound Yes Skin Appearance) -Ulcer Cleansing Rinsed/ Irrigated with Saline -Foul Odor after Cleansing No -Anesthetic Used 5% Lidocaine Gel WC - Nurse 2 - General Ulcer CM Notes Start: 08/28/20 09:34 Freq: Status: Active Protocol: Activity Type Activity Date Activity User E-Sign Co-Sign Detail Recorded Client Recorded Date Recorded By Document 09/04/20 10:47 RICHI [id number] 09/04/20 10:54 RICHI 09/04/20 10:47 Wound Center Nurse 2 [Procedure/Treatment] #3 4th lateral toe/amp site -Time 10:48 -Correct Patient Yes -Correct Side, Site, Position Yes -Correct Procedure Yes -Procedure Performed Yes -Type of Procedure Debridement -Clinical Debridement Subcutaneous -Tissue Removed Subcutaneous -Post Debridement (cm) - Length 2 -Post Debridement (cm) - Width 0.5 -Post Debridement (cm) - Depth 0.2 -Total Square (Post) (cm) 1.0 -Area of Debridement (cm) - Length 2 -Area of Debridement (cm) - Width 0.5 -Total Square (Area) (cm) 1.0 -Tunneling No -Undermining/Tunneling No -Circular Undermining No -Wound/Ulcer Outcome Not Healed -Ulcer Cleansing Rinsed/ Irrigated with Saline -Foul Odor after Cleansing No -Bioengineered Tissue No -Bleeding Controlled with Pressure -Offloading Yes -Type of Offloading Surgical Shoe -Treatment Response Procedure Tolerated Well -Debridement - Subq, 1st 20sq cm Yes #2 L 5th toe -Time 10:49 -Correct Patient Yes -Correct Side, Site, Position Yes -Correct Procedure Yes -Procedure Performed Yes -Type of Procedure Debridement -Clinical Debridement Subcutaneous -Tissue Removed Subcutaneous -Post Debridement (cm) - Length 0.9 -Post Debridement (cm) - Width 0.6 -Post Debridement (cm) - Depth 0.2 -Total Square (Post) (cm) 0.54 -Area of Debridement (cm) - Length 0.9 -Area of Debridement (cm) - Width 0.6 -Total Square (Area) (cm) 0.54 -Tunneling No -Undermining/Tunneling No -Circular Undermining No -Wound/Ulcer Outcome Not Healed -Ulcer Cleansing Rinsed/ Irrigated with Saline -Foul Odor after Cleansing No -Bioengineered Tissue No -Bleeding Controlled with Pressure -Offloading Yes -Type of Offloading Surgical Shoe -Treatment Response Procedure Tolerated Well -Debridement - Subq, 1st 20sq cm No #1 L Grt Toe -Time 10:53 -Correct Patient Yes -Correct Side, Site, Position Yes -Correct Procedure Yes -Procedure Performed Yes -Type of Procedure Debridement -Clinical Debridement Subcutaneous -Tissue Removed Subcutaneous -Post Debridement (cm) - Length 0.8 -Post Debridement (cm) - Width 0.5 -Post Debridement (cm) - Depth 0.2 -Total Square (Post) (cm) 0.40 -Area of Debridement (cm) - Length 0.8 -Area of Debridement (cm) - Width 0.5 -Total Square (Area) (cm) 0.40 -Tunneling No -Undermining/Tunneling No -Circular Undermining No -Wound/Ulcer Outcome Not Healed -Ulcer Cleansing Rinsed/ Irrigated with Saline -Foul Odor after Cleansing No -Bioengineered Tissue No -Bleeding Controlled with Pressure -Offloading Yes -Type of Offloading Surgical Shoe -Treatment Response Procedure Tolerated Well -Debridement - Subq, 1st 20sq cm No [See Physician Procedure note for Specifics] Pain Scale: 0-10 Numeric [Pain] -Is Patient Pain Free? Yes WC - Nurse 3 - General Ulcer D/C NN Start: 08/28/20 09:34 Freq: Status: Active Protocol: Activity Type Activity Date Activity User E-Sign Co-Sign Detail Recorded Client Recorded Date Recorded By Document 09/04/20 11:05 [facility] [id number] 09/04/20 11:08 [facility] 09/04/20 11:05 Wound Care Nurse 3 [Wound Dressing] #3 4th lateral toe/amp site -Ulcer Cleansing Rinsed/ Irrigated with Saline -Foul Odor after Cleansing No -Primary Dressing Applied Other -Other Dressing HYDROGEL -Primary Dressing Covered/Secured Dry Gauze & with Roll Gauze, Secured with Tape #2 L 5th toe -Ulcer Cleansing Rinsed/ Irrigated with Saline -Foul Odor after Cleansing No -Primary Dressing Applied NonAdherent Contact Layer, Other -Other Dressing HYDROGEL -Primary Dressing Covered/Secured Dry Gauze & with Roll Gauze, Secured with Tape #1 L Grt Toe -Ulcer Cleansing Rinsed/ Irrigated with Saline -Foul Odor after Cleansing No -Primary Dressing Applied NonAdherent Contact Layer, Other -Other Dressing HYDROGEL -Primary Dressing Covered/Secured Dry Gauze & with Roll Gauze, Secured with Tape [Post Procedure Tolerated] -Treatment Response Procedure Tolerated Well Pain Scale: 0-10 Numeric [Pain] -Is Patient Pain Free? Yes - Visit Discharge [Visit Discharge Information] -Discharge Condition Stable -Ambulatory Status Ambulatory,Cane -Transportation Private Auto Musculoskeletal: Tenderness - to ulceration sites Neurological: - - Decreased epicritic sensation Psych/Mental Status: Normal Affect, Appropriate Debridement Note Post-Debridement Measurements/Treatment - Nurse 2 - General Ulcer CM Notes Start: 08/28/20 09:34 Freq: Status: Active Protocol: Activity Type Activity Date Activity User E-Sign Co-Sign Detail Recorded Client Recorded Date Recorded By Document 08/28/20 10:33 [id number] 08/28/20 10:37 Document 09/04/20 10:47 [id number] 09/04/20 10:54 08/28/20 09/04/20 10:33 10:47 Wound Center Nurse 2 #3 4th lateral toe/amp site -Time 10:35 10:48 -Correct Patient Yes Yes -Correct Side, Site, Position Yes Yes -Correct Procedure Yes Yes -Procedure Performed Yes Yes -Type of Procedure Debridement Debridement -Clinical Debridement Subcutaneous Subcutaneous -Tissue Removed Subcutaneous Subcutaneous -Post Debridement (cm) - Length 2.0 2 -Post Debridement (cm) - Width 0.6 0.5 -Post Debridement (cm) - Depth 0.2 0.2 -Total Square (Post) (cm) 1.20 1.0 -Area of Debridement (cm) - Length 2.0 2 -Area of Debridement (cm) - Width 0.6 0.5 -Total Square (Area) (cm) 1.20 1.0 -Tunneling No No -Undermining/Tunneling No No -Circular Undermining No No -Wound/Ulcer Outcome Not Healed Not Healed -Ulcer Cleansing Rinsed/ Rinsed/ Irrigated with Irrigated with Saline Saline -Foul Odor after Cleansing No No -Bioengineered Tissue No No -Bleeding Controlled with Pressure Pressure -Offloading Yes Yes -Type of Offloading Surgical Shoe Surgical Shoe -Treatment Response Procedure Procedure Tolerated Well Tolerated Well -Debridement - Subq, 1st 20sq cm Yes Yes #2 L 5th toe -Time 10:36 10:49 -Correct Patient Yes Yes -Correct Side, Site, Position Yes Yes -Correct Procedure Yes Yes -Procedure Performed Yes Yes -Type of Procedure Debridement Debridement -Clinical Debridement Subcutaneous Subcutaneous -Tissue Removed Subcutaneous Subcutaneous -Post Debridement (cm) - Length 0.6 0.9 -Post Debridement (cm) - Width 0.6 0.6 -Post Debridement (cm) - Depth 0.2 0.2 -Total Square (Post) (cm) 0.36 0.54 -Area of Debridement (cm) - Length 0.6 0.9 -Area of Debridement (cm) - Width 0.6 0.6 -Total Square (Area) (cm) 0.36 0.54 -Tunneling No No -Undermining/Tunneling No No -Circular Undermining No No -Wound/Ulcer Outcome Not Healed Not Healed -Ulcer Cleansing Rinsed/ Rinsed/ Irrigated with Irrigated with Saline Saline -Foul Odor after Cleansing No No -Bioengineered Tissue No No -Bleeding Controlled with Pressure Pressure -Offloading Yes Yes -Type of Offloading Surgical Shoe Surgical Shoe -Treatment Response Procedure Procedure Tolerated Well Tolerated Well -Debridement - Subq, 1st 20sq cm No No #1 L Grt Toe -Time 10:37 10:53 -Correct Patient Yes Yes -Correct Side, Site, Position Yes Yes -Correct Procedure Yes Yes -Procedure Performed Yes Yes -Type of Procedure Debridement Debridement -Clinical Debridement Subcutaneous Subcutaneous -Tissue Removed Subcutaneous Subcutaneous -Post Debridement (cm) - Length 0.8 0.8 -Post Debridement (cm) - Width 0.4 0.5 -Post Debridement (cm) - Depth 0.2 0.2 -Total Square (Post) (cm) 0.32 0.40 -Area of Debridement (cm) - Length 0.8 0.8 -Area of Debridement (cm) - Width 0.4 0.5 -Total Square (Area) (cm) 0.32 0.40 -Tunneling No No -Undermining/Tunneling No No -Circular Undermining No No -Wound/Ulcer Outcome Not Healed Not Healed -Ulcer Cleansing Rinsed/ Rinsed/ Irrigated with Irrigated with Saline Saline -Foul Odor after Cleansing No No -Bioengineered Tissue No No -Bleeding Controlled with Pressure Pressure -Offloading Yes Yes -Type of Offloading Surgical Shoe Surgical Shoe -Treatment Response Procedure Procedure Tolerated Well Tolerated Well -Debridement - Subq, 1st 20sq cm No No Pain Scale: 0-10 Numeric Is Patient Pain Free? Yes Yes WC - Nurse 3 - General Ulcer D/C NN Start: 08/28/20 09:34 Freq: Status: Active Protocol: Activity Type Activity Date Activity User E-Sign Co-Sign Detail Recorded Client Recorded Date Recorded By Document 08/28/20 10:46 JF [id number] 08/28/20 10:49 JF Document 08/28/20 10:52 DL [id number] 08/28/20 10:56 DL Document 09/04/20 11:05 [facility] [id number] 09/04/20 11:08 BMF 08/28/20 08/28/20 09/04/20 10:46 10:52 11:05 Wound Care Nurse 3 #3 4th lateral toe/amp site -Ulcer Cleansing Rinsed/ Rinsed/ Rinsed/ Irrigated with Irrigated with Irrigated with Saline Saline Saline -Foul Odor after Cleansing No No No -Primary Dressing Applied Other -Other Dressing moist gauze moist gauze HYDROGEL -Primary Dressing Covered/Secured with Dry Gauze,Dry Dry Gauze,Dry Dry Gauze & Gauze & Roll Gauze & Roll Roll Gauze, Gauze,Secured Gauze,Secured Secured with with Tape with Tape Tape #2 L 5th toe -Ulcer Cleansing Rinsed/ Rinsed/ Rinsed/ Irrigated with Irrigated with Irrigated with Saline Saline Saline -Foul Odor after Cleansing No No No -Primary Dressing Applied NonAdherent NonAdherent NonAdherent Contact Layer Contact Layer Contact Layer, Other -Other Dressing hydrogel hydrogel HYDROGEL -Primary Dressing Covered/Secured with Dry Gauze,Dry Dry Gauze & Dry Gauze & Gauze & Roll Roll Gauze, Roll Gauze, Gauze,Secured Secured with Secured with with Tape Tape Tape #1 L Grt Toe -Ulcer Cleansing Rinsed/ Rinsed/ Irrigated with Irrigated with Saline Saline -Foul Odor after Cleansing No No -Primary Dressing Applied NonAdherent NonAdherent Contact Layer Contact Layer, Other -Other Dressing hydrogel HYDROGEL -Primary Dressing Covered/Secured with Dry Gauze & Dry Gauze & Roll Gauze, Roll Gauze, Secured with Secured with Tape Tape Treatment Response Procedure Procedure Tolerated Well Tolerated Well Pain Scale: 0-10 Numeric Is Patient Pain Free? Yes WC - Visit Discharge Discharge Condition Stable Stable Ambulatory Status Ambulatory,Cane Ambulatory,Cane Transportation Private Auto Private Auto Wound debrided: Lateral fifth digit Laterality: Left Wound Grade/Stage: Luciano 1 Type of Debridement: Excisional debridement Anesthesia Used: 5% Lidocaine Gel Depth: in the subcutaneous layer Percentage of wound debrided: 100 Instrument Used: 3mm curette Tissue Removed: Tissue removed includes fibrous, devitalized, biofilm, and slough tissue Severity: Fat Layer Exposed Amount of bleeding with debridement: Mild Bleeding Controlled with: Pressure Patient tolerated procedure well - Additional Wound Wound debrided: Medial hallux Laterality: Left Wound Grade/Stage: Luciano 1 Type of Debridement: Excisional debridement Anesthesia Used: 5% Lidocaine Gel Depth: in the subcutaneous layer Percentage of wound debrided: 100 Instrument Used: 3mm curette Tissue Removed: Tissue removed includes fibrous, devitalized, biofilm, and slough tissue Severity: Fat Layer Exposed Amount of bleeding with debridement: Moderate Bleeding Controlled with: Pressure Patient tolerated procedure: Patient tolerated procedure well - Additional Wound Wound debrided: Fourth digit amputation site Laterality: Left Wound Grade/Stage: Luciano 1 Type of Debridement: Excisional debridement Anesthesia Used: 5% Lidocaine Gel Depth: in the subcutaneous layer Percentage of wound debrided: 100 Instrument Used: 3mm curette Tissue Removed: Tissue removed includes fibrous, devitalized, biofilm, and slough tissue Severity: Fat Layer Exposed Amount of bleeding with debridement: Mild Bleeding Controlled with: Pressure Patient tolerated procedure: Patient tolerated procedure well Assessment/Plan Active Problems (Last Reviewed 07/07/20 @ 17:[address] Cathie Das DO) Non-pressure chronic ulcer of other part of left foot with fat layer exposed (Chronic) Amputated toe (Chronic) Type 2 diabetes mellitus (Chronic) PAD (peripheral artery disease) (Chronic) Assessment: Left first digit plantar medial ulcer. Left fifth digit lateral ulcer. Left fourth digit amputation site ulceration. 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 Peripheral vascular disease status post intervention 06/12/[address] Nicholson. Diabetes. history tobacco abuse Plan: Patient seen and examined. Wounds are to be improved with smaller size. Good healthy bleeding was noted especially to the hallux wound will continue daily dressing changes. Continue hydrogel to first and fifth toes and Santyl to the fourth amputation site. Less fibrotic tissue noted to fourth digit amputation site ulceration. Ulceration sites were sharply debrided after verbal consent was obtained. Patient has peripheral vascular disease. Patient has been seeing Dr. Nicholson for this. Patient had intervention on 06/12/2020. Since then patient has had some reperfusion pain with swelling that is worse at night. Patient followed up with Dr Nicholson with no other intervention planned. Patient got new scans last week but is yet to receive results. This pain has improved but still present at night. Patient saw Dr. Tenorio on 06/26/2020 and he prescribed gabapentin which patient relates helps some. Patient has recent LEAS prior to intervention with Dr. Nicholson with left monophasic pulses with an JENY of 0.59 from the PT artery and a TBI of 0.12. On the right side the DP and PT are monophasic as well with an JENY of 0.53 on the PT artery and 0.75 to the DP artery and a TBI of 0.3. 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 Patient was hospitalized on 07/07/20 for worsening 4th toe ulceration and blood in stool. Patient was noted to have rapid increase in gangrene to 4th digit. Amputation of 4th digit and debridement of 1st and 5th digit was performed 07/08/20. OM was confirmed with PsAg. Patient was discharged on Levaquin every other day due to kidney function she has since finished. Left first toe and fifth toe and fourth toe amputation site were sharply debrided after verbal consent was obtained. Continue wound care daily. Reviewed proper wound care with patient. Discussed with the patient the importance of offloading the sites with wide enough shoe gear if she is to be wearing shoes, proper diet, good blood sugar control. Patient has offloading boot. All questions were answered patient satisfaction. Discussed with the patient all concerning signs and symptoms to watch out for and to contact office if he either presents. Patient's follow-up in 1 week. This note was generated with Internet REITation software. It may contain incorrect words, spelling, and punctuation that were not noted in checking the note before signing.
[2020-09-11 10:13] VITALS: BP 149/73; PULSE 70; RESP 16; TEMP 36.3; BMI 23.6
--- NOTE | 2020-09-11 12:22 | PCM.WC.PN ---
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 (3) Amputated toe Status: Chronic Qualifiers: Laterality: left Qualified Code(s): S98.132A - Complete traumatic amputation of one left lesser toe, initial encounter Code(s): S98.139A - Complete traumatic amputation of one unspecified lesser toe, initial encounter (4) PAD (peripheral artery disease) Status: Chronic Code(s): I73.9 - Peripheral vascular disease, unspecified (5) Type 2 diabetes mellitus Status: Chronic Qualifiers: Diabetes mellitus complication status: with circulatory complication Diabetes mellitus complication detail: with peripheral angiopathy with gangrene Code(s): E11.9 - Type 2 diabetes mellitus without complications (6) History of tobacco abuse Status: Resolved Code(s): Z87.891 - Personal history of nicotine dependence Type of Wound Date of Service: 09/11/20 Chief Complaint: Left foot first, fifth digit ulceration. Left fourth digit amputation site ulceration. PAD History of Wound: Patient is referral from [facility] 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 Patient has a history of smoking. Patient is diabetic as well but states is very well controlled averaging blood sugar in the low 100s. Patient denies any trauma or rubbing to start the wounds. Patient had intervention done by Dr. Nicholson on 06/12/2020. Since then patient has complaints of post procedure reperfusion pain. She states it is worse at night and she has some relief with dangling of the foot. She has had some increase in redness and swelling noted as well. Patient saw Dr. Tenorio June 26, 2020 and was started on 100mg gabapentin TID. She has noticed some improvement in her pain. 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 Patient was hosppitalized 07/07/20 for worsening toe wound and blood in stool. 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 Amputation of 4th digit with debridement of 1st and 5th digit ulcerations was performed 07/08/20. 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 Patient was discharged on levaquin every other day due to impairent of her kidneys. Patient was also discharged on oxycodone. Patient relates improvement of her pain since surgery. Patient relates she is no longer taking strong pain meds. Patient continues at the wound care center for continued care ulcerations. Patient had follow-up scan with Dr. Nicholson and has yet to receive the results. Progress of Wound: 4th toe amputation site stable with noted fibrotic tissue and slough. 1st digit ulcers stable. Fifth digit ulceration noted to have worsened and now down to level of bone. erythema/edema Subjective: Patient seen and examined resting comfortably. Daughter is present. Patient relates worsening of redness and swelling to toes. Patient denies any nausea, fever, chills, chest pain, shortness of breath, cough, streaking, purulence, vomiting. - Physical Exam Vital Signs Temp Pulse Resp BP 97.4 F L 70 16 149/73 H 09/11/20 10:13 09/11/20 10:13 09/11/20 10:13 09/11/20 10:13 General: Alert, Oriented x3 HEENT: Atraumatic Extremities: No clubbing, No cyanosis, Capillary Refill Less than 3 Seconds, No Calf Tenderness, Diminished Peripheral Pulses, Edema - To digits mainly left, Tenderness - Ulcerations Skin: Ulcer/ Wound - First, fifth digits and fourth digit amputation site. Increase in erythema and edema noted to periulcerative sites. Fifth digit wound noted to probe to bone now. No purulence expressed. Fourth digit amputation site noted to have fibrotic base. 1/5 digit noted to have fibrotic granular base, - - No purulence or malodor noted. Wound Measurements and Assessment WC - Nurse 1 - General Ulcer Measurement Start: 08/28/20 09:34 Freq: Status: Active Protocol: Activity Type Activity Date Activity User E-Sign Co-Sign Detail Recorded Client Recorded Date Recorded By Document 09/11/20 10:13 [facility] [id number] 09/11/20 10:18 [facility] 09/11/20 10:13 Wound Center Nurse 1 [Ulcer Assessment] #3 4th lateral toe/amp site -Combined with other wound No -Current Size (cm) - Length 2.3 -Current Size (cm) - Width 0.5 -Current Size (cm) - Depth 0.1 -Total Square Cm 1.15 -Photo Taken No -Epithelialization None Present -Tunneling No -Undermining/Tunneling No -Circular Undermining No -Exudate Amt Medium -Exudate Type Serosanguineous -Wound Margin Distinct, Outline Attached -Granulation Amt None Present (0 %) -Slough/Fibrin Yes -Necrosis Amt Large (67-100%) -Necrotic Tissue Type Adherent Slough -Texture (Dot-wound Skin Appearance) Assessed, Scarring -Moisture (Dot-wound Skin Appearance Assessed ) -Color (Dot-wound Skin Appearance) Assessed, Erythema -Temperature (Dot-wound Skin No Abnormality Appearance) (Pt Warm) -Tenderness on Palpation (Dot-wound Yes Skin Appearance) -Ulcer Cleansing Rinsed/ Irrigated with Saline -Foul Odor after Cleansing No -Anesthetic Used 5% Lidocaine Gel #2 L 5th toe -Combined with other wound No -Current Size (cm) - Length 0.9 -Current Size (cm) - Width 0.7 -Current Size (cm) - Depth 0.2 -Total Square Cm 0.63 -Photo Taken No -Epithelialization None Present -Tunneling No -Undermining/Tunneling No -Circular Undermining No -Exudate Amt Small -Exudate Type Serosanguineous -Wound Margin Distinct, Outline Attached -Granulation Amt None Present (0 %) -Slough/Fibrin Yes -Necrosis Amt Large (67-100%) -Necrotic Tissue Type Adherent Slough -Texture (Dot-wound Skin Appearance) Assessed, Scarring -Moisture (Dot-wound Skin Appearance Assessed ) -Color (Dot-wound Skin Appearance) Erythema -Temperature (Dot-wound Skin No Abnormality Appearance) (Pt Warm) -Tenderness on Palpation (Dot-wound Yes Skin Appearance) -Ulcer Cleansing Rinsed/ Irrigated with Saline -Foul Odor after Cleansing No -Anesthetic Used 5% Lidocaine Gel #1 L Grt Toe -Combined with other wound No -Current Size (cm) - Length 0.8 -Current Size (cm) - Width 0.5 -Current Size (cm) - Depth 0.2 -Total Square Cm 0.40 -Photo Taken No -Epithelialization None Present -Tunneling No -Undermining/Tunneling No -Circular Undermining No -Exudate Amt Small -Exudate Type Serosanguineous -Wound Margin Distinct, Outline Attached -Granulation Amt None Present (0 %) -Slough/Fibrin Yes -Necrosis Amt Large (67-100%) -Necrotic Tissue Type Adherent Slough -Texture (Dot-wound Skin Appearance) Assessed, Scarring -Moisture (Dot-wound Skin Appearance Assessed,Dry/ ) Scaly -Color (Dot-wound Skin Appearance) Assessed -Temperature (Dot-wound Skin No Abnormality Appearance) (Pt Warm) -Tenderness on Palpation (Dot-wound No Skin Appearance) -Ulcer Cleansing Rinsed/ Irrigated with Saline -Foul Odor after Cleansing No -Anesthetic Used 5% Lidocaine Gel WC - Nurse 2 - General Ulcer CM Notes Start: 08/28/20 09:34 Freq: Status: Active Protocol: Activity Type Activity Date Activity User E-Sign Co-Sign Detail Recorded Client Recorded Date Recorded By Document 09/11/20 10:44 [facility] [id number] 09/11/20 10:50 [facility] 09/11/20 10:44 Wound Center Nurse 2 [Procedure/Treatment] #3 4th lateral toe/amp site -Time 10:44 -Correct Patient Yes -Correct Side, Site, Position Yes -Correct Procedure Yes -Procedure Performed Yes -Type of Procedure Debridement -Clinical Debridement Subcutaneous -Tissue Removed Subcutaneous -Post Debridement (cm) - Length 2.5 -Post Debridement (cm) - Width 0.5 -Post Debridement (cm) - Depth 0.3 -Total Square (Post) (cm) 1.25 -Area of Debridement (cm) - Length 2.5 -Area of Debridement (cm) - Width 0.5 -Total Square (Area) (cm) 1.25 -Tunneling No -Undermining/Tunneling No -Circular Undermining No -Wound/Ulcer Outcome Not Healed -Ulcer Cleansing Rinsed/ Irrigated with Saline -Foul Odor after Cleansing No -Bioengineered Tissue No -Bleeding Controlled with Pressure -Offloading Yes -Type of Offloading Surgical Shoe -Treatment Response Procedure Tolerated Well -Debridement - Subq, 1st 20sq cm Yes #2 L 5th toe -Time 10:45 -Correct Patient Yes -Correct Side, Site, Position Yes -Correct Procedure Yes -Procedure Performed Yes -Type of Procedure Debridement -Clinical Debridement Subcutaneous -Tissue Removed Subcutaneous -Post Debridement (cm) - Length 1 -Post Debridement (cm) - Width 0.5 -Post Debridement (cm) - Depth 0.3 -Total Square (Post) (cm) 0.5 -Area of Debridement (cm) - Length 1 -Area of Debridement (cm) - Width 0.5 -Total Square (Area) (cm) 0.5 -Tunneling No -Undermining/Tunneling No -Circular Undermining No -Wound/Ulcer Outcome Not Healed -Ulcer Cleansing Rinsed/ Irrigated with Saline -Foul Odor after Cleansing No -Bioengineered Tissue No -Bleeding Controlled with Pressure -Offloading Yes -Type of Offloading Surgical Shoe -Treatment Response Procedure Tolerated Well -Debridement - Subq, 1st 20sq cm No #1 L Grt Toe -Time 10:46 -Correct Patient Yes -Correct Side, Site, Position Yes -Correct Procedure Yes -Procedure Performed Yes -Type of Procedure Debridement -Clinical Debridement Subcutaneous -Tissue Removed Subcutaneous -Post Debridement (cm) - Length 0.9 -Post Debridement (cm) - Width 0.5 -Post Debridement (cm) - Depth 0.2 -Total Square (Post) (cm) 0.45 -Area of Debridement (cm) - Length 0.9 -Area of Debridement (cm) - Width 0.5 -Total Square (Area) (cm) 0.45 -Tunneling No -Undermining/Tunneling No -Circular Undermining No -Wound/Ulcer Outcome Not Healed -Ulcer Cleansing Rinsed/ Irrigated with Saline -Foul Odor after Cleansing No -Bioengineered Tissue No -Bleeding Controlled with Pressure -Offloading Yes -Type of Offloading Surgical Shoe -Treatment Response Procedure Tolerated Well -Debridement - Subq, 1st 20sq cm No [See Physician Procedure note for Specifics] Musculoskeletal: Tenderness - Ulcerations, - - Left fourth digit amputation Neurological: - - Decreased epicritic sensation Psych/Mental Status: Normal Affect, Appropriate Debridement Note Post-Debridement Measurements/Treatment WC - Nurse 2 - General Ulcer CM Notes Start: 08/28/20 09:34 Freq: Status: Active Protocol: Activity Type Activity Date Activity User E-Sign Co-Sign Detail Recorded Client Recorded Date Recorded By Document 08/28/20 10:33 [facility] [id number] 08/28/20 10:37 R[facility] Document 09/04/20 10:47 [facility] [id number] 09/04/20 10:54 Document 09/11/20 10:44 [facility] [id number] 09/11/20 10:50 JF 08/28/20 09/04/20 09/11/20 10:33 10:47 10:44 Wound Center Nurse 2 #3 4th lateral toe/amp site -Time 10:35 10:48 10:44 -Correct Patient Yes Yes Yes -Correct Side, Site, Position Yes Yes Yes -Correct Procedure Yes Yes Yes -Procedure Performed Yes Yes Yes -Type of Procedure Debridement Debridement Debridement -Clinical Debridement Subcutaneous Subcutaneous Subcutaneous -Tissue Removed Subcutaneous Subcutaneous Subcutaneous -Post Debridement (cm) - Length 2.0 2 2.5 -Post Debridement (cm) - Width 0.6 0.5 0.5 -Post Debridement (cm) - Depth 0.2 0.2 0.3 -Total Square (Post) (cm) 1.20 1.0 1.25 -Area of Debridement (cm) - Length 2.0 2 2.5 -Area of Debridement (cm) - Width 0.6 0.5 0.5 -Total Square (Area) (cm) 1.20 1.0 1.25 -Tunneling No No No -Undermining/Tunneling No No No -Circular Undermining No No No -Wound/Ulcer Outcome Not Healed Not Healed Not Healed -Ulcer Cleansing Rinsed/ Rinsed/ Rinsed/ Irrigated with Irrigated with Irrigated with Saline Saline Saline -Foul Odor after Cleansing No No No -Bioengineered Tissue No No No -Bleeding Controlled with Pressure Pressure Pressure -Offloading Yes Yes Yes -Type of Offloading Surgical Shoe Surgical Shoe Surgical Shoe -Treatment Response Procedure Procedure Procedure Tolerated Well Tolerated Well Tolerated Well -Debridement - Subq, 1st 20sq cm Yes Yes Yes #2 L 5th toe -Time 10:36 10:49 10:45 -Correct Patient Yes Yes Yes -Correct Side, Site, Position Yes Yes Yes -Correct Procedure Yes Yes Yes -Procedure Performed Yes Yes Yes -Type of Procedure Debridement Debridement Debridement -Clinical Debridement Subcutaneous Subcutaneous Subcutaneous -Tissue Removed Subcutaneous Subcutaneous Subcutaneous -Post Debridement (cm) - Length 0.6 0.9 1 -Post Debridement (cm) - Width 0.6 0.6 0.5 -Post Debridement (cm) - Depth 0.2 0.2 0.3 -Total Square (Post) (cm) 0.36 0.54 0.5 -Area of Debridement (cm) - Length 0.6 0.9 1 -Area of Debridement (cm) - Width 0.6 0.6 0.5 -Total Square (Area) (cm) 0.36 0.54 0.5 -Tunneling No No No -Undermining/Tunneling No No No -Circular Undermining No No No -Wound/Ulcer Outcome Not Healed Not Healed Not Healed -Ulcer Cleansing Rinsed/ Rinsed/ Rinsed/ Irrigated with Irrigated with Irrigated with Saline Saline Saline -Foul Odor after Cleansing No No No -Bioengineered Tissue No No No -Bleeding Controlled with Pressure Pressure Pressure -Offloading Yes Yes Yes -Type of Offloading Surgical Shoe Surgical Shoe Surgical Shoe -Treatment Response Procedure Procedure Procedure Tolerated Well Tolerated Well Tolerated Well -Debridement - Subq, 1st 20sq cm No No No #1 L Grt Toe -Time 10:37 10:53 10:46 -Correct Patient Yes Yes Yes -Correct Side, Site, Position Yes Yes Yes -Correct Procedure Yes Yes Yes -Procedure Performed Yes Yes Yes -Type of Procedure Debridement Debridement Debridement -Clinical Debridement Subcutaneous Subcutaneous Subcutaneous -Tissue Removed Subcutaneous Subcutaneous Subcutaneous -Post Debridement (cm) - Length 0.8 0.8 0.9 -Post Debridement (cm) - Width 0.4 0.5 0.5 -Post Debridement (cm) - Depth 0.2 0.2 0.2 -Total Square (Post) (cm) 0.32 0.40 0.45 -Area of Debridement (cm) - Length 0.8 0.8 0.9 -Area of Debridement (cm) - Width 0.4 0.5 0.5 -Total Square (Area) (cm) 0.32 0.40 0.45 -Tunneling No No No -Undermining/Tunneling No No No -Circular Undermining No No No -Wound/Ulcer Outcome Not Healed Not Healed Not Healed -Ulcer Cleansing Rinsed/ Rinsed/ Rinsed/ Irrigated with Irrigated with Irrigated with Saline Saline Saline -Foul Odor after Cleansing No No No -Bioengineered Tissue No No No -Bleeding Controlled with Pressure Pressure Pressure -Offloading Yes Yes Yes -Type of Offloading Surgical Shoe Surgical Shoe Surgical Shoe -Treatment Response Procedure Procedure Procedure Tolerated Well Tolerated Well Tolerated Well -Debridement - Subq, 1st 20sq cm No No No Pain Scale: 0-10 Numeric Is Patient Pain Free? Yes Yes - Nurse 3 - General Ulcer D/C NN Start: 08/28/20 09:34 Freq: Status: Active Protocol: Activity Type Activity Date Activity User E-Sign Co-Sign Detail Recorded Client Recorded Date Recorded By Document 08/28/20 10:46 [facility] [id number] 08/28/20 10:49 Document 08/28/20 10:52 DL [id number] 08/28/20 10:56 DL Document 09/04/20 11:05 [facility] [id number] 09/04/20 11:08 [facility] 08/28/20 08/28/20 09/04/20 10:46 10:52 11:05 Wound Care Nurse 3 #3 4th lateral toe/amp site -Ulcer Cleansing Rinsed/ Rinsed/ Rinsed/ Irrigated with Irrigated with Irrigated with Saline Saline Saline -Foul Odor after Cleansing No No No -Primary Dressing Applied Other -Other Dressing moist gauze moist gauze HYDROGEL -Primary Dressing Covered/Secured with Dry Gauze,Dry Dry Gauze,Dry Dry Gauze & Gauze & Roll Gauze & Roll Roll Gauze, Gauze,Secured Gauze,Secured Secured with with Tape with Tape Tape #2 L 5th toe -Ulcer Cleansing Rinsed/ Rinsed/ Rinsed/ Irrigated with Irrigated with Irrigated with Saline Saline Saline -Foul Odor after Cleansing No No No -Primary Dressing Applied NonAdherent NonAdherent NonAdherent Contact Layer Contact Layer Contact Layer, Other -Other Dressing hydrogel hydrogel HYDROGEL -Primary Dressing Covered/Secured with Dry Gauze,Dry Dry Gauze & Dry Gauze & Gauze & Roll Roll Gauze, Roll Gauze, Gauze,Secured Secured with Secured with with Tape Tape Tape #1 L Grt Toe -Ulcer Cleansing Rinsed/ Rinsed/ Irrigated with Irrigated with Saline Saline -Foul Odor after Cleansing No No -Primary Dressing Applied NonAdherent NonAdherent Contact Layer Contact Layer, Other -Other Dressing hydrogel HYDROGEL -Primary Dressing Covered/Secured with Dry Gauze & Dry Gauze & Roll Gauze, Roll Gauze, Secured with Secured with Tape Tape Treatment Response Procedure Procedure Tolerated Well Tolerated Well Pain Scale: 0-10 Numeric Is Patient Pain Free? Yes WC - Visit Discharge Discharge Condition Stable Stable Ambulatory Status Ambulatory,Cane Ambulatory,Cane Transportation Private Auto Private Auto Wound debrided: First digit Laterality: Left Wound Grade/Stage: Luciano 1 Type of Debridement: Excisional debridement Anesthesia Used: 5% Lidocaine Gel Depth: in the subcutaneous layer Percentage of wound debrided: 100 Instrument Used: 3mm curette Tissue Removed: Tissue removed includes fibrous, devitalized, biofilm, and slough tissue Severity: Fat Layer Exposed Amount of bleeding with debridement: Mild Bleeding Controlled with: Pressure Patient tolerated procedure well - Additional Wound Wound debrided: Fifth digit Laterality: Left Wound Grade/Stage: Luciano 2 Type of Debridement: Excisional debridement Anesthesia Used: 5% Lidocaine Gel Depth: to bone - Debrided to subcu Percentage of wound debrided: 100 Instrument Used: 3mm curette Tissue Removed: Tissue removed includes fibrous, devitalized, biofilm, and slough tissue Severity: Fat Layer Exposed - Probes to bone, debrided to subcu Amount of bleeding with debridement: Mild Bleeding Controlled with: Pressure Patient tolerated procedure: Patient tolerated procedure well - Additional Wound Wound debrided: Fourth digit amputation site Laterality: Left Wound Grade/Stage: Luciano 1 Type of Debridement: Excisional debridement Anesthesia Used: 4% Lidocaine Solution Depth: in the subcutaneous layer Percentage of wound debrided: 100 Instrument Used: 3mm curette Tissue Removed: Tissue removed includes fibrous, devitalized, biofilm, and slough tissue Severity: Fat Layer Exposed Amount of bleeding with debridement: Mild Bleeding Controlled with: Pressure Patient tolerated procedure: Patient tolerated procedure well Assessment/Plan Active Problems (Last Reviewed 07/07/20 @ 17:[address] Cathie Das DO) Non-pressure chronic ulcer of other part of left foot with fat layer exposed (Chronic) Amputated toe (Chronic) Cellulitis of left toe (Acute) Type 2 diabetes mellitus (Chronic) PAD (peripheral artery disease) (Chronic) Assessment: Left first digit plantar medial ulcer. Left fifth digit lateral ulcer. Left fourth digit amputation site ulceration. 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 Peripheral vascular disease status post intervention 06/12/[address] Nicholson. Diabetes. history tobacco abuse. Cellulitis left toes Plan: Patient seen and examined. Wounds are to have some signs of worsening with some signs of cellulitis. Fifth digit noted to now probe to bone. Patient is also having increase in her pain. There is increased erythema and edema. Continue daily dressing changes with Santyl. Ulceration sites were sharply debrided after verbal consent was obtained. Patient has peripheral vascular disease. Patient has been seeing Dr. Nicholson for this. Patient had intervention on 06/12/2020. Since then patient has had some reperfusion pain with swelling that is worse at night. Patient followed up with Dr Nicholson with no other intervention planned. Patient got new scans last week but is yet to receive results. She will get these tomorrow. The pain has improved but still present at night. Patient saw Dr. Tenorio on 06/26/2020 and he prescribed gabapentin which patient relates helps some. Patient has recent LEAS prior to intervention with Dr. Nicholson with left monophasic pulses with an JENY of 0.59 from the PT artery and a TBI of 0.12. On the right side the DP and PT are monophasic as well with an JENY of 0.53 on the PT artery and 0.75 to the DP artery and a TBI of 0.3. 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 Patient was hospitalized on 07/07/20 for worsening 4th toe ulceration and blood in stool. Patient was noted to have rapid increase in gangrene to 4th digit. Amputation of 4th digit and debridement of 1st and 5th digit was performed 07/08/20. OM was confirmed with PsAg. Patient was discharged on Levaquin every other day due to kidney function she has since finished. Left first toe and fifth toe and fourth toe amputation site were sharply debrided after verbal consent was obtained. Prescription for antibiotic sent to patient's pharmacy. Patient started on doxycycline. New cultures were obtained today. Growth so far has shown gram-positive organisms. Patient noted to have some decrease in kidney function. Reviewed proper wound care with patient. Discussed with the patient the importance of offloading the sites with wide enough shoe gear if she is to be wearing shoes, proper diet, good blood sugar control. Patient has offloading boot. All questions were answered patient satisfaction. Discussed with the patient all concerning signs and symptoms to watch out for and to contact office if he either presents. Patient's follow-up in 1 week. This note was generated with [employer] dictation software. It may contain incorrect words, spelling, and punctuation that were not noted in checking the note before signing. The problems addressed require a low medical decision making level which includes two or more minor problems, a stable chronic illness, or an acute uncomplicated illness or injury.
[2020-09-11 17:54] LABS: M R Staph aureus DNA By PCR Negative (Negative); Probe Check PASS; Staph aureus DNA By PCR NEGATIVE (Negative)
[2020-09-18 10:39] VITALS: BP 128/72; PULSE 64; TEMP 36; BMI 23.6
--- NOTE | 2020-09-18 17:24 | PN.PCM_ITS ---
History of Present Illness Date of Service: 09/18/20 Chief Complaint: Left foot first, fifth digit ulceration Left fourth digit amputation site ulceration PAD History of Wound: Patient is referral from [facility]ud[facility] 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 Patient has a history of smoking. Patient is diabetic as well but states is very well controlled averaging blood sugar in the low 100s. Patient denies any trauma or rubbing to start the wounds. Patient had intervention done by Dr. Nicholson on 06/12/2020. Since then patient has complaints of post procedure reperfusion pain. She states it is worse at night and she has some relief with dangling of the foot. She has had some increase in redness and swelling noted as well. Patient saw Dr. Tenorio June 26, 2020 and was started on 100mg gabapentin TID. She has noticed some improvement in her pain. 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 Patient was hosppitalized 07/07/20 for worsening toe wound and blood in stool. 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 Amputation of 4th digit with debridement of 1st and 5th digit ulcerations was performed 07/08/20. 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 Patient was discharged on levaquin every other day due to impairent of her kidneys. Patient was also discharged on oxycodone. Patient relates improvement of her pain since surgery. Patient relates she is no longer taking strong pain meds. Patient continues at the wound care center for continued care ulcerations Patient had follow-up scan with Dr. Nicholson and she relates that Dr. Nicholson would like to further intervention at [facility] in [facility]. Patient is to have further work-up done next week to determine exactly what kind of intervention may be necessary but is likely going to be stents. Patient relates that she is afraid of potential pain after the procedure Subjective Subjective: Patient is resting comfortably and denies any new pedal complains. Patient denies any nausea, fever, vomiting, chills, chest pain, shortness of breath, streaking, or purulence Objective Data Objective Data Vital Signs: Vital Signs Temp Pulse Resp BP 96.8 F L 64 16 128/72 H 09/18/20 10:39 09/18/20 10:39 09/11/20 10:13 09/18/20 10:39 Oxygen Delivery Method Room Air Weight: 149 kg Body Mass Index (BMI) 23.6 Lab / Micro Data Micro: Microbiology 09/11/20 Unknown Wound Abcess - Left Foot Gram Stain - Final 09/11/20 Unknown Wound Abcess - Left Foot Wound Culture - Final Staphylococcus epidermidis 09/11/20 Unknown Wound Abcess - Left Foot Anaerobic Culture - Final No anaerobic bacteria isolated. Assessment & Plan Assessment/Plan (1) Non-pressure chronic ulcer of other part of left foot with fat layer exposed: Status: Chronic Code(s): L97.522 - Non-pressure chronic ulcer of other part of left foot with fat layer exposed (2) 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 without evidence of necrosis: Status: Chronic Code(s): L97.526 - 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 without evidence of necrosis (3) History of tobacco abuse: Status: Resolved Code(s): Z87.891 - Personal history of nicotine dependence (4) Type 2 diabetes mellitus: Status: Chronic Code(s): E11.9 - Type 2 diabetes mellitus without complications Qualifiers: Diabetes mellitus complication detail: with peripheral angiopathy with gangrene Diabetes mellitus complication status: with circulatory complication Diabetes mellitus termination clerk insulin use: unspecified senior care insulin use status Qualified Code(s): E11.52 - Type 2 diabetes mellitus with diabetic peripheral angiopathy with gangrene (5) PAD (peripheral artery disease): Status: Chronic Code(s): I73.9 - Peripheral vascular disease, unspecified (6) Amputated toe: Status: Chronic Code(s): S98.139A - Complete traumatic amputation of one unspecified lesser toe, initial encounter Qualifiers: Laterality: left Qualified Code(s): S98.132A - Complete traumatic amputation of one left lesser toe, initial encounter Plan: Assessment: Left first digit plantar medial ulcer. Left fifth digit lateral ulcer- to bone Left fourth digit amputation site ulceration. 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 Peripheral vascular disease status post intervention 06/12/[address] Nicholson. Diabetes. history tobacco abuse. Plan: Patient seen and examined with daughter present. Wounds are stable. Cellulitis has resolved. Chronic color redness consistent with vascular disease. Continue daily dressing changes. Ulceration sites were sharply debrided after verbal consent was obtained. Patient has peripheral vascular disease. Patient has been seeing Dr. Nicholson for this. Patient had intervention on 06/12/2020. Since then patient has had some reperfusion pain with swelling that is worse at night. Patient followed up with Dr Nicholson and is planning further intervention and is completing work-up for that at this time. Patient does not have a date for this at this time. Patient saw Dr. Tenorio on 06/26/2020 and he prescribed gabapentin which patient relates helps some. Patient has recent LEAS prior to intervention with Dr. Nicholson with left monophasic pulses with an JENY of 0.59 from the PT artery and a TBI of 0.12. On the right side the DP and PT are monophasic as well with an JENY of 0.53 on the PT artery and 0.75 to the DP artery and a TBI of 0.3. 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 Patient was hospitalized on 07/07/20 for worsening 4th toe ulceration and blood in stool. Patient was noted to have rapid increase in gangrene to 4th digit. Amputation of 4th digit and debridement of 1st and 5th digit was performed 07/08/20. OM was confirmed with PsAg. Patient was discharged on Levaquin every other day due to kidney function she has since finished. Cultures from 09/11/2020 demonstrated Staphylococcus epididymis. Reviewed proper wound care with patient. Discussed with the patient the importance of offloading the sites with wide enough shoe gear if she is to be wearing shoes, proper diet, good blood sugar control. Patient has offloading boot. All questions were answered patient satisfaction. Discussed with the patient all concerning signs and symptoms to watch out for and to contact office if he either presents. Patient is to follow-up in 1 week. This note was generated with [employer] dictation software. It may contain incorrect words, spelling, and punctuation that were not noted in checking the note before signing. The problems addressed require a low medical decision making level which includes two or more minor problems, a stable chronic illness, or an acute uncomplicated illness or injury. Physical Exam Const alert and no apparent distress General Appearance: cooperative and comfortable HEENT Head and Scalp: atraumatic Lymph Lymphatic: no lymphedema noted Resp normal respiratory effort Effort and Inspection: able to speak in complete sentences Cardio Peripheral Pulses: posterior tibial pulses present and dorsalis pedis pulses present Extremity no calf tenderness and no pedal edema General Extremity: no tenderness to palpation of joints or extremities; Negative for clubbing or cyanosis Peripheral Pulses: Yes posterior tibial pulses present and dorsalis pedis pulses present Skin General Skin Exam: dry skin; Negative for ecchymosis, eschar, pallor or dermatitis Rashes: no rashes Wounds: wounds noted Wound Narrative: ulcers noted to left fifth and first digit. Left fourth digit amputation site. No malodor, erythema, purulence, streaking, fluctuation, crepitus, or other signs of infection. The left fifth digit wound probes to bone. Skin is atrophic and hairless. Largely fibrotic base. Digits are noted to be having some chronic rubor noted with decreased capillary fill time of about 5 seconds to the digits on the left foot. These are consistent with poor vascular status. Neuro Gait (Neuro): normal gait Sensory Exam: extremities light-touch: decreased Motor Exam: strength 5/5 throughout Psych Appearance: appropriate Attitude: calm Debridement Note Debridement Note Post-Debridement Measurements and Additional Note: Post-Debridement Measurements/Treatment WC - Nurse 2 - General Ulcer CM Notes Start: 08/28/20 09:34 Freq: Status: Active Protocol: Activity Type Activity Date Activity User E-Sign Co-Sign Detail Recorded Client Recorded Date Recorded By Document 08/28/20 10:33 [id number] 08/28/20 10:37 Document 09/04/20 10:47 [id number] 09/04/20 10:54 Document 09/11/20 10:44 [id number] 09/11/20 10:50 Document 09/18/20 11:11 [id number] 09/18/20 11:17 08/28/20 09/04/20 09/11/20 10:33 10:47 10:44 Wound Center Nurse 2 #3 4th lateral toe/amp site -Time 10:35 10:48 10:44 -Correct Patient Yes Yes Yes -Correct Side, Site, Position Yes Yes Yes -Correct Procedure Yes Yes Yes -Procedure Performed Yes Yes Yes -Type of Procedure Debridement Debridement Debridement -Clinical Debridement Subcutaneous Subcutaneous Subcutaneous -Tissue Removed Subcutaneous Subcutaneous Subcutaneous -Post Debridement (cm) - Length 2.0 2 2.5 -Post Debridement (cm) - Width 0.6 0.5 0.5 -Post Debridement (cm) - Depth 0.2 0.2 0.3 -Total Square (Post) (cm) 1.20 1.0 1.25 -Area of Debridement (cm) - Length 2.0 2 2.5 -Area of Debridement (cm) - Width 0.6 0.5 0.5 -Total Square (Area) (cm) 1.20 1.0 1.25 -Tunneling No No No -Undermining/Tunneling No No No -Circular Undermining No No No -Wound/Ulcer Outcome Not Healed Not Healed Not Healed -Ulcer Cleansing Rinsed/ Rinsed/ Rinsed/ Irrigated with Irrigated with Irrigated with Saline Saline Saline -Foul Odor after Cleansing No No No -Bioengineered Tissue No No No -Bleeding Controlled with Pressure Pressure Pressure -Offloading Yes Yes Yes -Type of Offloading Surgical Shoe Surgical Shoe Surgical Shoe -Treatment Response Procedure Procedure Procedure Tolerated Well Tolerated Well Tolerated Well -Debridement - Subq, 1st 20sq cm Yes Yes Yes #2 L 5th toe -Time 10:36 10:49 10:45 -Correct Patient Yes Yes Yes -Correct Side, Site, Position Yes Yes Yes -Correct Procedure Yes Yes Yes -Procedure Performed Yes Yes Yes -Type of Procedure Debridement Debridement Debridement -Clinical Debridement Subcutaneous Subcutaneous Subcutaneous -Tissue Removed Subcutaneous Subcutaneous Subcutaneous -Post Debridement (cm) - Length 0.6 0.9 1 -Post Debridement (cm) - Width 0.6 0.6 0.5 -Post Debridement (cm) - Depth 0.2 0.2 0.3 -Total Square (Post) (cm) 0.36 0.54 0.5 -Area of Debridement (cm) - Length 0.6 0.9 1 -Area of Debridement (cm) - Width 0.6 0.6 0.5 -Total Square (Area) (cm) 0.36 0.54 0.5 -Tunneling No No No -Undermining/Tunneling No No No -Circular Undermining No No No -Wound/Ulcer Outcome Not Healed Not Healed Not Healed -Ulcer Cleansing Rinsed/ Rinsed/ Rinsed/ Irrigated with Irrigated with Irrigated with Saline Saline Saline -Foul Odor after Cleansing No No No -Bioengineered Tissue No No No -Bleeding Controlled with Pressure Pressure Pressure -Offloading Yes Yes Yes -Type of Offloading Surgical Shoe Surgical Shoe Surgical Shoe -Treatment Response Procedure Procedure Procedure Tolerated Well Tolerated Well Tolerated Well -Debridement - Subq, 1st 20sq cm No No No #1 L Grt Toe -Time 10:37 10:53 10:46 -Correct Patient Yes Yes Yes -Correct Side, Site, Position Yes Yes Yes -Correct Procedure Yes Yes Yes -Procedure Performed Yes Yes Yes -Type of Procedure Debridement Debridement Debridement -Clinical Debridement Subcutaneous Subcutaneous Subcutaneous -Tissue Removed Subcutaneous Subcutaneous Subcutaneous -Post Debridement (cm) - Length 0.8 0.8 0.9 -Post Debridement (cm) - Width 0.4 0.5 0.5 -Post Debridement (cm) - Depth 0.2 0.2 0.2 -Total Square (Post) (cm) 0.32 0.40 0.45 -Area of Debridement (cm) - Length 0.8 0.8 0.9 -Area of Debridement (cm) - Width 0.4 0.5 0.5 -Total Square (Area) (cm) 0.32 0.40 0.45 -Tunneling No No No -Undermining/Tunneling No No No -Circular Undermining No No No -Wound/Ulcer Outcome Not Healed Not Healed Not Healed -Ulcer Cleansing Rinsed/ Rinsed/ Rinsed/ Irrigated with Irrigated with Irrigated with Saline Saline Saline -Foul Odor after Cleansing No No No -Bioengineered Tissue No No No -Bleeding Controlled with Pressure Pressure Pressure -Offloading Yes Yes Yes -Type of Offloading Surgical Shoe Surgical Shoe Surgical Shoe -Treatment Response Procedure Procedure Procedure Tolerated Well Tolerated Well Tolerated Well -Debridement - Subq, 1st 20sq cm No No No Pain Scale: 0-10 Numeric Is Patient Pain Free? Yes Yes 09/18/20 11:11 Wound Center Nurse 2 #3 4th lateral toe/amp site -Time 11:15 -Correct Patient Yes -Correct Side, Site, Position Yes -Correct Procedure Yes -Procedure Performed Yes -Type of Procedure Debridement -Clinical Debridement Subcutaneous -Tissue Removed Subcutaneous -Post Debridement (cm) - Length 2 -Post Debridement (cm) - Width 0.7 -Post Debridement (cm) - Depth 0.2 -Total Square (Post) (cm) 1.4 -Area of Debridement (cm) - Length 2 -Area of Debridement (cm) - Width 0.7 -Total Square (Area) (cm) 1.4 -Tunneling No -Undermining/Tunneling No -Circular Undermining No -Wound/Ulcer Outcome Not Healed -Ulcer Cleansing Rinsed/ Irrigated with Saline -Foul Odor after Cleansing No -Bioengineered Tissue No -Bleeding Controlled with Pressure -Offloading Yes -Type of Offloading Surgical Shoe -Treatment Response Procedure Tolerated Well -Debridement - Subq, 1st 20sq cm Yes #2 L 5th toe -Time 11:16 -Correct Patient Yes -Correct Side, Site, Position Yes -Correct Procedure Yes -Procedure Performed Yes -Type of Procedure Debridement -Clinical Debridement Subcutaneous -Tissue Removed Subcutaneous -Post Debridement (cm) - Length 1 -Post Debridement (cm) - Width 0.7 -Post Debridement (cm) - Depth 0.2 -Total Square (Post) (cm) 0.7 -Area of Debridement (cm) - Length 1 -Area of Debridement (cm) - Width 0.7 -Total Square (Area) (cm) 0.7 -Tunneling No -Undermining/Tunneling No -Circular Undermining No -Wound/Ulcer Outcome Not Healed -Ulcer Cleansing Rinsed/ Irrigated with Saline -Foul Odor after Cleansing No -Bioengineered Tissue No -Bleeding Controlled with Pressure -Offloading Yes -Type of Offloading Surgical Shoe -Treatment Response Procedure Tolerated Well -Debridement - Subq, 20sq cm No #1 L Grt Toe -Time 11:16 -Correct Patient Yes -Correct Side, Site, Position Yes -Correct Procedure Yes -Procedure Performed Yes -Type of Procedure Debridement -Clinical Debridement Subcutaneous -Tissue Removed Subcutaneous -Post Debridement (cm) - Length 0.9 -Post Debridement (cm) - Width 0.6 -Post Debridement (cm) - Depth 0.2 -Total Square (Post) (cm) 0.54 -Area of Debridement (cm) - Length 0.9 -Area of Debridement (cm) - Width 0.6 -Total Square (Area) (cm) 0.54 -Tunneling No -Undermining/Tunneling No -Circular Undermining No -Wound/Ulcer Outcome Not Healed -Ulcer Cleansing Rinsed/ Irrigated with Saline -Foul Odor after Cleansing No -Bioengineered Tissue No -Bleeding Controlled with Pressure -Offloading Yes -Type of Offloading Surgical Shoe -Treatment Response Procedure Tolerated Well -Debridement - Subq, 1st 20sq cm No Pain Scale: 0-10 Numeric Is Patient Pain Free? Yes WC - Nurse 3 - General Ulcer D/C NN Start: 08/28/20 09:34 Freq: Status: Active Protocol: Activity Type Activity Date Activity User E-Sign Co-Sign Detail Recorded Client Recorded Date Recorded By Document 08/28/20 10:46 JF [id number] 08/28/20 10:49 JF Document 08/28/20 10:52 DL [id number] 08/28/20 10:56 DL Document 09/04/20 11:05 [facility] [id number] 09/04/20 11:08 BMF Document 09/18/20 11:47 KR [id number] 09/18/20 11:48 KR 08/28/20 08/28/20 09/04/20 10:46 10:52 11:05 Wound Care Nurse 3 #3 4th lateral toe/amp site -Ulcer Cleansing Rinsed/ Rinsed/ Rinsed/ Irrigated with Irrigated with Irrigated with Saline Saline Saline -Foul Odor after Cleansing No No No -Primary Dressing Applied Other -Other Dressing moist gauze moist gauze HYDROGEL -Primary Dressing Covered/Secured with Dry Gauze,Dry Dry Gauze,Dry Dry Gauze & Gauze & Roll Gauze & Roll Roll Gauze, Gauze,Secured Gauze,Secured Secured with with Tape with Tape Tape -[employer] 4x4 #2 L 5th toe -Ulcer Cleansing Rinsed/ Rinsed/ Rinsed/ Irrigated with Irrigated with Irrigated with Saline Saline Saline -Foul Odor after Cleansing No No No -Primary Dressing Applied NonAdherent NonAdherent NonAdherent Contact Layer Contact Layer Contact Layer, Other -Other Dressing hydrogel hydrogel HYDROGEL -Primary Dressing Covered/Secured with Dry Gauze,Dry Dry Gauze & Dry Gauze & Gauze & Roll Roll Gauze, Roll Gauze, Gauze,Secured Secured with Secured with with Tape Tape Tape #1 L Grt Toe -Ulcer Cleansing Rinsed/ Rinsed/ Irrigated with Irrigated with Saline Saline -Foul Odor after Cleansing No No -Primary Dressing Applied NonAdherent NonAdherent Contact Layer Contact Layer, Other -Other Dressing hydrogel HYDROGEL -Primary Dressing Covered/Secured with Dry Gauze & Dry Gauze & Roll Gauze, Roll Gauze, Secured with Secured with Tape Tape Treatment Response Procedure Procedure Tolerated Well Tolerated Well Pain Scale: 0-10 Numeric Is Patient Pain Free? Yes WC - Visit Discharge Discharge Condition Stable Stable Ambulatory Status Ambulatory,Cane Ambulatory,Cane Transportation Private Auto Private Auto 09/18/20 11:47 Wound Care Nurse 3 #3 4th lateral toe/amp site -Ulcer Cleansing Rinsed/ Irrigated with Saline -Foul Odor after Cleansing -Primary Dressing Applied Aquacel AG 4x4 -Other Dressing -Primary Dressing Covered/Secured with Dry Gauze, Secured with Tape -Aquacel AG 4x4 1 #2 L 5th toe -Ulcer Cleansing Rinsed/ Irrigated with Saline -Foul Odor after Cleansing -Primary Dressing Applied -Other Dressing -Primary Dressing Covered/Secured with Dry Gauze, Secured with Tape #1 L Grt Toe -Ulcer Cleansing Rinsed/ Irrigated with Saline -Foul Odor after Cleansing -Primary Dressing Applied -Other Dressing -Primary Dressing Covered/Secured with Dry Gauze, Secured with Tape Treatment Response Pain Scale: 0-10 Numeric Is Patient Pain Free? Yes WC - Visit Discharge Discharge Condition Stable Ambulatory Status Ambulatory Transportation Private Auto Wound debrided: Left foot first and fifth digit Laterality: Left Wound Grade/Stage: luciano 1 Type of Debridement: Excisional debridement Anesthesia Used: 5% Lidocaine Gel Depth: in the subcutaneous layer Percentage of wound debrided: 100 Instrument Used: 3mm curette Tissue Removed: Tissue removed includes fibrous, devitalized, biofilm, and slough tissue Severity: Fat Layer Exposed Amount of bleeding with debridement: Mild Bleeding Controlled with: Pressure Patient tolerated procedure: Patient tolerated procedure well Additional Wound Wound debrided: Fourth digit amputation site Laterality: Left Wound Grade/Stage: Luciano 2 Type of Debridement: Excisional debridement Anesthesia Used: 5% Lidocaine Gel Depth: to bone (Debrided to subcu) Percentage of wound debrided: 100 Instrument Used: 3mm curette Tissue Removed: Tissue removed includes fibrous, devitalized, biofilm, and slough tissue Severity: Fat Layer Exposed Amount of bleeding with debridement: Mild Bleeding Controlled with: Pressure
== END 2020-09-21 23:59 ==
LOC: WC 10:30
PROVIDERS: PCP Family Medicine; Referring Provider Podiatrist; Visit Provider Podiatrist Foot & Ankle Surgery
DX: E11.621 Type 2 diabetes mellitus with foot ulcer (principal); L97.522 Non-pressure chronic ulcer of other part of left foot with fat layer exposed; L03.032 Cellulitis of left toe; M86.072 Acute hematogenous osteomyelitis, left ankle and foot; E11.52 Type 2 diabetes mellitus with diabetic peripheral angiopathy with gangrene; I77.9 Disorder of arteries and arterioles, unspecified; I73.9 Peripheral vascular disease, unspecified; L03.116 Cellulitis of left lower limb; E11.69 Type 2 diabetes mellitus with other specified complication; G89.18 Other acute postprocedural pain; Z79.82 Long term (current) use of aspirin; Z87.820 Personal history of traumatic brain injury; Z87.891 Personal history of nicotine dependence; Z79.4 Long term (current) use of insulin; Z89.422 Acquired absence of other left toe(s); Z89.412 Acquired absence of left great toe
CPT/HCPCS: 11042; 87070; 87075; 87077; 87186; 87205; 87640

== ENCOUNTER → 2020-09-21 12:35 | Outpatient (CLI) | payer MEDICARE, SELFPAY ==
[2020-09-11 10:13] VITALS: BMI 23.6
[2020-09-18 10:39] VITALS: BMI 23.6
--- NOTE | 2020-09-21 12:39 | CT_ITS ---
EXAM: CT ANGIOGRAPHY ABDOMEN AND PELVIS WITH RUNOFF TO THE LOWER EXTREMITIES WITH INTRAVENOUS CONTRAST : 1935 CLINICAL INDICATION: STRICTURE OF ARTERY,ATHEROSCLEROSIS,TOE PAIN,CAD,HYPERTENSION TECHNIQUE: Helically acquired angiography images were obtained of the abdomen, pelvis and lower extremities with intravenous contrast using CTA runoff protocol. This CT exam was performed using one or more of the following dose reduction techniques: automated exposure control, adjustment of the mA and/or kV according to patient size, and/or use of iterative reconstruction technique. This report was created using [employer] report generation technology. MIP reconstructed images were created and reviewed. CONTRAST: IV 100mL [id number] COMPARISON: None. FINDINGS: VASCULATURE: AORTA: The aorta is normal in caliber. There is calcific plaque seen within the distal aorta with no stenosis or occlusion. Normal caliber abdominal aorta. No dissection. CELIAC TRUNK AND MESENTERIC ARTERIES: No acute findings. No occlusion or significant stenosis. No dissection. RENAL ARTERIES: No acute findings. No occlusion or significant stenosis. No dissection. RIGHT ILIAC ARTERIES: There is calcific plaque seen within the common iliac arteries bilaterally with no stenosis. No dissection. RIGHT FEMORAL/POPLITEAL ARTERIES: There is calcific plaque in both common femoral arteries with no evidence of high-grade stenosis or occlusion . There is likely a 40% stenosis of both common femoral arteries. The superficial femoral arteries are patent bilaterally at their origins. No dissection. RIGHT CALF/FOOT ARTERIES: There is essentially 3 vessel runoff into both ankles. There is heavy calcification seen within the distal vessels. LEFT ILIAC ARTERIES: See above. LEFT FEMORAL/POPLITEAL ARTERIES: There is scattered calcific and soft plaquing greater on the left than on the right. There are areas where the left superficial femoral artery narrows approximately 50% due to calcific and soft plaque. No high-grade stenosis is seen. The left popliteal artery is very small in caliber due to peripheral soft plaque with the vessel narrowed approximately 70%. LEFT CALF/FOOT ARTERIES: See above. LOWER THORAX: Unremarkable. Lung bases are clear. No cardiomegaly. No significant pericardial effusion. ABDOMEN: LIVER: Unremarkable. Homogeneous. No focal mass. GALLBLADDER AND BILE DUCTS: Unremarkable. No calcified gallstones. No gallbladder distention or wall edema. No intra- or extrahepatic biliary ductal dilation. PANCREAS: Unremarkable. No focal cystic or solid mass. SPLEEN: Unremarkable. Normal size without focal cystic or solid mass. ADRENALS: Unremarkable. No nodules. KIDNEYS AND URETERS: Unremarkable. Normal renal size and position. No hydronephrosis. STOMACH AND BOWEL: Unremarkable. No stomach or bowel distention. No focal inflammatory change. PELVIS: APPENDIX: No evidence of acute appendicitis. BLADDER: Unremarkable. REPRODUCTIVE: Unremarkable as visualized. No mass. ABDOMEN, PELVIS and LOWER EXTREMITIES: INTRAPERITONEAL SPACE: Unremarkable. No ascites or other fluid collection. No free air. BONES/JOINTS: See above. SOFT TISSUES: Unremarkable. No discrete abdominal or pelvic wall hernia. LYMPH NODES: Unremarkable. No enlarged lymph nodes. 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 There is extensive soft and calcific plaque seen within both superficial femoral arteries but no high-grade stenoses are seen. There is three-vessel runoff extending to both ankles although there is calcific plaque bilaterally Individualized dose optimization techniques were used for this CT. at 0357 Reported and signed by: Brian Mustafa MD Electronically Signed: Brian Mustafa MD at 3:55 EDT Tel , Service support ,
== END ==
PROVIDERS: PCP Family Medicine; Referring Provider Surgery Vascular Surgery; Visit Provider Surgery Vascular Surgery
DX: I77.1 Stricture of artery (principal); I70.213 Atherosclerosis of native arteries of extremities with intermittent claudication, bilateral legs; M79.675 Pain in left toe(s); I25.10 Atherosclerotic heart disease of native coronary artery without angina pectoris; I10 Essential (primary) hypertension; E11.9 Type 2 diabetes mellitus without complications
CPT/HCPCS: 75635; Q9967

== ENCOUNTER 2020-10-05 12:40 | Emergency (ER) | payer MEDICARE, SELFPAY ==
[2020-10-02 09:48] VITALS: BMI 23.6
[2020-10-05 12:41] VITALS: BP 150/68; PULSE 78; RESP 18; TEMP 36.6; O2SAT 100; BMI 23.1
[2020-10-05] MEDS: oxyCODONE 5 MG Tablet PO (13:43)
--- NOTE | 2020-10-05 13:57 | RAD_ITS ---
STUDY: X-RAY - LEFT FOOT CLINICAL: Female, 84 years old. Pain TECHNIQUE: 3 view(s) of the foot. COMPARISON: Comparison is made with prior study dated 09/25/2020. FINDINGS: Normal talus, calcaneus, and tarsal bones. Normal visualized subtalar, talonavicular, calcaneocuboid, tarsal and tarsometatarsal articulations. Normal metatarsi. Normal metatarsophalangeal joint of the great toe. Normal tibial and fibular sesamoid bones. Normal interphalangeal joint of the great toe. Normal phalanges of the great toe. Normal second through fifth metatarsophalangeal joints. The patient is status post amputation of the fourth toe. Soft tissue swelling. RAD/Foot min 3 Views IMPRESSION: The patient is status post amputation of the fourth toe. Soft tissue swelling. Electronically Signed: Rigo Avalos MD at 14:14 EDT , Service support ,
[2020-10-05 14:00] LABS: Absolute Lymphocyte Count 2.37 X10^3/uL (0.83-4.51); Absolute Neutrophil Count 7.6 X10^3/uL (2.0-7.7); Basophil# 0.05 X10^3/uL; Basophil% 0.4 % (0-1); Eosinophil# 0.24 X10^3/uL; Eosinophils% 2.2 % (0-5); Hematocrit 37.1 % (37-47); Hemoglobin 11.5 g/dL (12.0-15.0); Lymphocyte # 2.37 X10^3/ul (0.83-4.51); Lymphocyte % 21.2 % (19-41); Mean Corpuscular Hgb 27.8 pg (27.0-32.0); Mean Corpuscular Volume 89.8 fL (81-99); Mean Platelet Vol. 8.8 fl (6.2-12.0); Monocyte# 0.83 X10^3/uL; Monocyte% 7.4 % (0-10); NRBC Flagged by Analyzer 0 % (0-5); Neutrophil # 7.64 X10^3/uL (2.7-7.7); Neutrophil % 68.5 % (47-70); Platelet Count 382 K/mm3 (150-450); RBC Distribution Width CV 12.6 % (11.6-14.6); RBC Distribution Width SD 41.2 fl (35.1-43.9); Red Blood Count 4.13 M/mm3 (4.2-5.4); White Blood Count 11.2 K/mm3 (4.4-11.0)
[2020-10-05 14:02] LABS: Erythrocyte Sedimentation Rate 14 mm/hr (0-30)
[2020-10-05 14:08] LABS: Anion Gap 6 (5-15); BUN 38 mg/dL (7-18); BUN/Creat Ratio 46.4 RATIO (10-20); Calcium,Total 9.7 mg/dL (8.5-10.1); Chloride 99 mmol/L (98-107); Creatinine, Serum 0.82 mg/dL (0.55-1.02); EST Glomerular Filtration Rate 71 mL/min (>60); Est Glom Filt Rate - Afr Amer 85 mL/min (>60); Glucose 102 mg/dL (74-106); Potassium 4.1 mmol/L (3.5-5.1); Sodium Level 135 mmol/L (136-145)
--- NOTE | 2020-10-05 16:30 | EX.ED.DYSGE1 ---
HPI History of Present Illness Chief Complaint: Wound Informant: patient and family Onset/Context/Timing Onset: Weeks Current Severity: Moderate Maximum Severity: Moderate Narrative Narrative: Patient presents secondary to nonhealing wound of left foot and increased pain. Patient had a left fourth toe amputation in mid June secondary to gangrene. She states wound was sutured following procedure and sutures removed 2 weeks after surgery. Shortly after sutures removed the wound dehisced. She has been following at the wound care center with dressing changes regularly. She presents today complaining of increased pain and frustration that her wound is not healing. She already has 3 stents to the left leg. She is scheduled to undergo a procedure with Dr. Nicholson next week to balloon a vessel in her left upper leg and attempt to provide better blood flow to her leg. [facility] Medical History (Updated 10/05/20 @ 17:[address] Munira Canela MD) Atherosclerotic heart disease of [place] coronary artery without angina pectoris BBB (bundle branch block) Carotid stenosis, bilateral Carotid stenosis, bilateral Diabetes Essential hypertension HTN (hypertension) Hyperlipidemia Osteoarthritis PAD (peripheral artery disease) Peripheral arterial occlusive disease Presence of stent in coronary artery (~07/04/11) RBBB (right bundle branch block) TIA (transient ischemic attack) Type 2 diabetes mellitus Home Medications aspirin 81 mg PO QHS 06/07/16 [History Last Taken 06/11/20] clopidogrel 75 mg PO DAILY 06/07/16 [History Last Taken 06/12/20] coenzyme Q10 10 mg capsule 10 mg PO DAILY 01/11/19 [History Last Taken 06/12/20] nitroglycerin 0.4 mg sublingual tablet 0.4 mg SUBLINGUAL Q5-15M 01/11/19 [History Last Taken Unknown] multivitamin 1 tab PO DAILY 04/28/19 [History Last Taken 06/12/20] omega-3 fatty acids 1,000 mg capsule 1,000 mg PO DAILY 04/28/19 [History Last Taken 06/12/20] metformin 500 mg PO BID 05/13/19 [History Last Taken 06/11/20] cholecalciferol (vitamin D3) 50 mcg (2,000 unit) capsule 50 mcg PO DAILY 11/02/19 [History Last Taken 06/12/20] gabapentin 100 mg capsule 100 mg PO TID 07/02/20 [History Last Taken Unknown] amlodipine 5 mg PO DAILY 07/07/20 [History Last Taken Unknown] levofloxacin 750 mg PO QODAY@0600 #4 tab 07/09/20 [Rx Last Taken Unknown] metoprolol tartrate 25 mg PO BID #1 tab 07/09/20 [Rx Last Taken Unknown] levofloxacin 750 mg PO QODAY #4 tab 07/17/20 [Rx Last Taken Unknown] levofloxacin 750 mg PO QODAY #4 tab 07/17/20 [Rx Last Taken Unknown] levofloxacin 750 mg PO QODAY #4 tab 09/11/20 [Rx Last Taken Unknown] doxycycline monohydrate 100 mg PO DAILY #7 capsule 09/14/20 [Rx Last Taken Unknown] amoxicillin-pot clavulanate [Augmentin] 1 tab PO BID #14 tab 10/05/20 [Rx Last Taken Unknown] oxycodone-acetaminophen [Percocet] 1 tab PO Q6H PRN 5 Days #20 tab 10/05/20 [Rx Last Taken Unknown] Allergy/AdvReac Type Severity Reaction Status Date / Time pravastatin AdvReac Severe myalgias Verified 10/05/20 12:43 Sulfa (Sulfonamide AdvReac Mild stomach Verified 10/05/20 12:43 Antibiotics) upset atorvastatin AdvReac myalgias Verified 10/05/20 12:43 Family History Father Diabetes Heart disease Brother Diabetes Colon cancer Brother Diabetes Surgical History Cataract extraction status of right eye History of heart artery stent History of hemorrhoidectomy History of hysterectomy History of left-sided carotid endarterectomy Presence of coronary angioplasty implant and graft (~07/04/11) Status post peripheral artery angioplasty Social History Smoking Status: Former smoker alcohol intake: current details: social substance use type: does not use caffeine: Yes what type of physical activity do you participate in: walking seatbelt use: always do you feel safe at home: Yes ROS ROS ED Constitutional Constitutional ED: Denies chills or fever(s) Eyes Eyes: Denies change in vision ENT ENT ED: Denies sore throat Cardiovascular Cardiovascular: Denies chest pain Respiratory/Chest Respiratory/Chest: Denies cough or dyspnea Gastrointestinal Gastrointestinal: Denies abdominal pain, diarrhea, nausea or vomiting Genitourinary Genitourinary ED: Denies dysuria Musculoskeletal Musculoskeletal: Reports arthralgias; Denies back pain Integumentary Reports other Details: Chronic left foot wound ; Denies rash Neurologic Neurologic: Denies headache(s) or weakness Psychiatric Psychiatric: Denies anxiety or depression Endocrine Endocrinology: Denies polydipsia or polyuria Allergic/Immunologic Allergic/Immunologic ED: Denies urticaria EXAM Physical Exam Const Vital Signs: 10/05/20 12:41 Temperature 98 F Temperature Source Temporal Pulse Rate 78 Respiratory Rate 18 Blood Pressure 150/68 H Blood Pressure Mean 95 Pulse Ox 100 Oxygen Delivery Method Room Air Positive well nourished and well developed General Appearance ED: well developed HEENT Reports normocephalic and head/scalp atraumatic Eyes PERRL and EOMs intact bilaterally Neck supple Chest Wall inspection of chest normal and palpation of chest normal Resp normal respiratory effort and clear to auscultation bilaterally Cardio regular rate and regular rhythm GI normal to inspection, nondistended, normoactive bowel sounds Palpation: soft Back/Spine no CVA tenderness Extremity Extremity Narrative: Open wound to the surgical site at the base of the previous fourth toe. Granulation tissue is present. I do not appreciate obvious infection. Chronic ulcer is noted to the medial acid of the left great toe and lateral aspect of the left fifth toe. Neuro oriented x3 and no sensory deficits noted Sensorium / Orientation: alert Motor Exam: strength 5/5 throughout Psych mental status grossly normal Skin Skin Narrative: As above MDM MDM MDM Narrative Medical decision making narrative: Patient was given oxycodone for pain. Lab Data Attestation: I reviewed the patient's lab results. Labs: Laboratory Results - last 24 hr 10/05/20 10/05/20 13:50 13:50 WBC 11.2 H RBC 4.13 L Hgb 11.5 L Hct 37.1 MCV 89.8 MCH 27.8 MCHC 31.0 L RDW Std Deviation 41.2 RDW Coeff of Kathy 12.6 Plt Count 382 MPV 8.8 Immature Gran % (Auto) 0.300 Neut % (Auto) 68.5 Lymph % (Auto) 21.2 [place] % (Auto) 7.4 Eos % (Auto) 2.2 Baso % (Auto) 0.4 Absolute Neuts (auto) 7.6 Absolute Lymphs (auto) 2.37 Nucleated RBC % 0 ESR 14 Sodium 135 L Potassium 4.1 Chloride 99 Carbon Dioxide 30.0 Anion Gap 6 BUN 38 H Creatinine 0.82 Estim Creat Clear Calc 44.10 Est GFR (MDRD) Af Amer 85 Est GFR (MDRD) Non-Af 71 BUN/Creatinine Ratio 46.4 H Glucose 102 Calcium 9.7 C-React Prot Ext Range 43.30 H Radiography Diagnostic Testing: Radiology Impression Foot X-Ray 10/05/20 13:57 IMPRESSION: The patient is status post amputation of the fourth toe. Soft tissue swelling. Electronically Signed: Rigo Avalos MD at 14:14 EDT , Service support , Treatment and Re-Evaluation Comments:: Left foot x-ray per my interpretation reveals no obvious acute bony change. Blood work reveals mild leukocytosis with a white count 11.2. CRP is elevated at 43. I spoke with Dr. Escudero, on-call for podiatry. He presented to the emergency room to evaluate the patient. Dr. Escudero obtained a wound culture and wrapped her foot. He discussed with the family discharge to home with pain medication and better pain control along with a course of Augmentin to prevent any infection. Other option was transfer to [facility] to be seen by vascular. He advises me that family wishes for transfer to [facility]. He does not feel this is unreasonable as she has had increased rest pain. I spoke with Dr. Bojorquez, vascular on-call for Dr. Nicholson. We reviewed the patient's findings. He feels the patient just needs better pain control for home. Everything is set for her procedure this coming week. He does advise that if the patient is insistent on transfer she can be transferred to the hospitalist service and he will see her in consult, but does not feel there will be any change in her vascular care prior to her surgery this coming week. This was discussed with patient and daughter at bedside who both state they are more than happy to go home with pain medication for pain control. Dr. Escudero did suggest sending her home with Augmentin as well as pain medication and this we written for her. Discharge Plan Triage Chief Complaint: Wound Other Complaint: Edema ED Provider: Munira Canela Dx/Rx/DC Orders Clinical Impression: Open wound of left foot, Ischaemic rest pain of lower extremity Instructions: ED Wound Care Prescriptions: New oxycodone-acetaminophen [Percocet] 5-325 mg tablet 1 tab PO Q6H PRN (Reason: pain) 5 Days Qty: 20 RF: 0 amoxicillin-pot clavulanate [Augmentin] 875-125 mg tablet 1 tab PO BID Qty: 14 RF: 0 No Action omega-3 fatty acids [Fish Oil Concentrate] 1,000 mg capsule 1,000 mg PO DAILY RF: 0 multivitamin Tablet 1 tab PO DAILY RF: 0 nitroglycerin 0.4 mg tablet, sublingual 0.4 mg SUBLINGUAL Q5-15M RF: 0 coenzyme Q10 10 mg capsule 10 mg PO DAILY RF: 0 cholecalciferol (vitamin D3) 50 mcg (2,000 unit) capsule 50 mcg PO DAILY RF: 0 gabapentin 100 mg capsule 100 mg PO TID RF: 0 clopidogrel 75 MG tablet 75 mg PO DAILY RF: 0 aspirin 81 MG tablet,chewable 81 mg PO QHS RF: 0 metformin 500 MG tablet extended release 24 hr 500 mg PO BID RF: 0 levofloxacin 750 MG tablet 750 mg PO QODAY Qty: 4 RF: 0 levofloxacin 750 MG tablet 750 mg PO QODAY Qty: 4 RF: 0 amlodipine 10 MG tablet 5 mg PO DAILY RF: 0 levofloxacin 750 MG tablet 750 mg PO QODAY@0600 Qty: 4 RF: 0 metoprolol tartrate 25 MG tablet 25 mg PO BID Qty: 1 RF: 0 levofloxacin 750 MG tablet 750 mg PO QODAY Qty: 4 RF: 0 doxycycline monohydrate 100 MG capsule 100 mg PO DAILY Qty: 7 RF: 0 Primary Care Provider: Tre Marks Referrals: Pablo Nicholson MD [STAFF PHYSICIAN] - Keep Jazmin appointment Tre Marks MD [Primary Care Provider] - Disposition Disposition: Home, self care
--- NOTE | 2020-10-05 17:17 | CON.PCM_ITS ---
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 Patient with known PAD, and there is concern for worsening critical limb ischemia due to nonhealing wounds and worsening rest pain. I believe her symptoms are largely due to her PAD. There dependent rubor to the foot consistent with PAD, I do not think it is infection, however a culture was obtained for further evaluation and consider starting possible antibiotic. Left foot xrays from today reviewed and no gas, no evidence of acute osteomyelitis. Discussed options with patient, her daughters, and I also discussed with Dr. Canela ER physician. Vascular evaluation and management is limited here at [facility], and due to concern of worsening PAD with rest pain and along with being unable to completely rule out start of possible infection patient agreed to be transferred to another hospital where they would also have vascular specialist for further evaluation and management of the patient's foot. I discussed with Dr. Canela who has placed call to [facility] in [place]. HPI Consult Data Date of Consult: 10/06/20 HPI Narrative HPI Narrative: GENTRY BUTTERFIELD, is a 84 F who presents to the ER for left foot pain and wounds. She has chronic wounds to the left foot, she is diabetic with known peripheral vascular disease to the lower extremity. She has had vascular intervention by Dr. Pablo Del Castillo, and has another vascular procedure to the left lower extremity scheduled for this coming . Patient has been also following with Dr. López at the wound center for the ulcerations, they are overall very slow/non healing. Patient relates to worsening pain, and inability to sleep due to the pain to the left foot. She also has edema which is chronic. She had left 4th toe amputated earlier this year with nonhealing very slow healing wound and chronic ulcers to the left 1st and 5th toes. Left foot xrays were obtained in the ER, labs also obtained. WBC is slightly elevated. Patient is here with her daughters. They relate the color of the foot remains the same, no worsening redness or drainage. [facility] Medical History (Updated 10/05/20 @ 17:[address] Munira Canela MD) Atherosclerotic heart disease of [place] coronary artery without angina pectoris BBB (bundle branch block) Carotid stenosis, bilateral Carotid stenosis, bilateral Diabetes Essential hypertension HTN (hypertension) Hyperlipidemia Osteoarthritis PAD (peripheral artery disease) Peripheral arterial occlusive disease Presence of stent in coronary artery (~07/04/11) RBBB (right bundle branch block) TIA (transient ischemic attack) Type 2 diabetes mellitus Home Medications aspirin 81 mg PO QHS 06/07/16 [History Last Taken 06/11/20] clopidogrel 75 mg PO DAILY 06/07/16 [History Last Taken 06/12/20] coenzyme Q10 10 mg capsule 10 mg PO DAILY 01/11/19 [History Last Taken 06/12/20] nitroglycerin 0.4 mg sublingual tablet 0.4 mg SUBLINGUAL Q5-15M 01/11/19 [History Last Taken Unknown] multivitamin 1 tab PO DAILY 04/28/19 [History Last Taken 06/12/20] omega-3 fatty acids 1,000 mg capsule 1,000 mg PO DAILY 04/28/19 [History Last Taken 06/12/20] metformin 500 mg PO BID 05/13/19 [History Last Taken 06/11/20] cholecalciferol (vitamin D3) 50 mcg (2,000 unit) capsule 50 mcg PO DAILY 10/23 [History Last Taken 06/12/20] gabapentin 100 mg capsule 100 mg PO TID 07/02/20 [History Last Taken Unknown] amlodipine 5 mg PO DAILY 07/07/20 [History Last Taken Unknown] levofloxacin 750 mg PO QODAY@0600 #4 tab 07/09/20 [Rx Last Taken Unknown] metoprolol tartrate 25 mg PO BID #1 tab 07/09/20 [Rx Last Taken Unknown] levofloxacin 750 mg PO QODAY #4 tab 07/17/20 [Rx Last Taken Unknown] levofloxacin 750 mg PO QODAY #4 tab 07/17/20 [Rx Last Taken Unknown] levofloxacin 750 mg PO QODAY #4 tab 09/11/20 [Rx Last Taken Unknown] doxycycline monohydrate 100 mg PO DAILY #7 capsule 09/14/20 [Rx Last Taken Unknown] amoxicillin-pot clavulanate [Augmentin] 1 tab PO BID #14 tab 10/05/20 [Rx Last Taken Unknown] oxycodone-acetaminophen [Percocet] 1 tab PO Q6H PRN 5 Days #20 tab 10/05/20 [Rx Last Taken Unknown] Allergy/AdvReac Type Severity Reaction Status Date / Time pravastatin AdvReac Severe myalgias Verified 10/05/20 12:43 Sulfa (Sulfonamide AdvReac Mild stomach Verified 10/05/20 12:43 Antibiotics) upset atorvastatin AdvReac myalgias Verified 10/05/20 12:43 Family History Father Diabetes Heart disease Brother Diabetes Colon cancer Brother Diabetes Surgical History Cataract extraction status of right eye History of heart artery stent History of hemorrhoidectomy History of hysterectomy History of left-sided carotid endarterectomy Presence of coronary angioplasty implant and graft (~07/04/11) Status post peripheral artery angioplasty Social History Smoking Status: Former smoker alcohol intake: current details: social substance use type: does not use caffeine: Yes what type of physical activity do you participate in: walking seatbelt use: always do you feel safe at home: Yes ROS Constitutional Constitutional: Reports other; Denies chills or fever(s) Integumentary Integumentary: Reports wounds Physical Exam Const alert, oriented x3 and no apparent distress General Appearance: cooperative Extremity Extremity Narrative: Left foot with absent 4th toe with open wound at the amputation site down to subcutaneous tissue and close to bone, but there is soft tissue covering bone, there is fibrotic tissue to the wound, some granular tissue as well, there is some minimal serous drainage in the wound, there is no purulence, no visible abscess, no maloder, no streaking, no crepitus, no fluctuance, there are dry eschars/fibrotic wounds to the 1st toe medially and 5th toe laterally on the left foot down to subcutaneous tissue - with no exposure of bone. There is dependent rubor to the left foot, there is edema to the left foot/ankle and some edema to the left leg. Patient relates to rest pain to the left foot. No other open lesions noted to the left or right foot, ankle or leg. CFT < 3 seconds to the toes left foot, foot is not cold. Lab / Micro Data Result Diagrams: 10/05/20 13:50 10/05/20 13:50 Labs: Laboratory Results - last 24 hr 10/05/20 10/05/20 13:50 13:50 WBC 11.2 H RBC 4.13 L Hgb 11.5 L Hct 37.1 MCV 89.8 MCH 27.8 MCHC 31.0 L RDW Std Deviation 41.2 RDW Coeff of Kathy 12.6 Plt Count 382 MPV 8.8 Immature Gran % (Auto) 0.300 Neut % (Auto) 68.5 Lymph % (Auto) 21.2 [place] % (Auto) 7.4 Eos % (Auto) 2.2 Baso % (Auto) 0.4 Absolute Neuts (auto) 7.6 Absolute Lymphs (auto) 2.37 Nucleated RBC % 0 ESR 14 Sodium 135 L Potassium 4.1 Chloride 99 Carbon Dioxide 30.0 Anion Gap 6 BUN 38 H Creatinine 0.82 Estim Creat Clear Calc 44.10 Est GFR (MDRD) Af Amer 85 Est GFR (MDRD) Non-Af 71 BUN/Creatinine Ratio 46.4 H Glucose 102 Calcium 9.7 C-React Prot Ext Range 43.30 H Radiology Impression Foot X-Ray 10/05/20 13:57 IMPRESSION: The patient is status post amputation of the fourth toe. Soft tissue swelling. Electronically Signed: Rigo Avalos MD at 14:14 EDT , Service support ,
[2020-10-05 17:51] VITALS: BP 138/86
[2020-10-05 18:47] LABS: M R Staph aureus DNA By PCR Negative (Negative); Probe Check PASS; Specimen Processing Control PASS; Staph aureus DNA By PCR NEGATIVE (Negative)
== END 2020-10-05 17:56 | disposition home or self-care (01) ==
PROVIDERS: Podiatrist; Emergency Provider Emergency Medicine; PCP Family Medicine
DX: S91.302A Unspecified open wound, left foot, initial encounter (principal); M79.606 Pain in leg, unspecified; R60.9 Edema, unspecified; Z89.429 Acquired absence of other toe(s), unspecified side; I25.10 Atherosclerotic heart disease of native coronary artery without angina pectoris; I10 Essential (primary) hypertension; E78.5 Hyperlipidemia, unspecified; Z95.5 Presence of coronary angioplasty implant and graft; Z86.73 Personal history of transient ischemic attack (TIA), and cerebral infarction without residual deficits; I65.23 Occlusion and stenosis of bilateral carotid arteries; Z79.4 Long term (current) use of insulin; Z79.82 Long term (current) use of aspirin; E11.52 Type 2 diabetes mellitus with diabetic peripheral angiopathy with gangrene; E11.621 Type 2 diabetes mellitus with foot ulcer; Z79.899 Other long term (current) drug therapy; Z87.891 Personal history of nicotine dependence; L03.116 Cellulitis of left lower limb; L97.526 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 without evidence of necrosis; M19.90 Unspecified osteoarthritis, unspecified site; I45.10 Unspecified right bundle-branch block
CPT/HCPCS: 73630; 80048; 85025; 85652; 86140; 87070; 87077; 87186; 87205; 87640; 99283; A4216

== ENCOUNTER → 2020-10-08 15:20 | Outpatient (CLI) | payer MEDICARE, SELFPAY ==
[2020-10-05 12:41] VITALS: BMI 23.1
--- NOTE | 2020-10-08 15:22 | VDLE_ITS ---
Reason For Study: PAIN Procedure LEFT Exam performed in department. GSV is normal. A preliminary report was called and/or faxed CFV is compressible, spontaneous, phasic, to DR ESCUDERO. competent, and demonstrates normal augmentation. FV is compressible, spontaneous, phasic, competent and demonstrates normal augmentation. POP V is compressible, spontaneous, phasic, competent and demonstrates normal augmentation. T/P Trunk is compressible. PTV is compressible. LT PerV is compressible. There is a non-vascularized hypoechoic structure noted in the Popliteal space measuring 2.33 x .74 cm. VL/Venous Duplex US, Unilateral Interpretation Summary Deep veins of the left lower extremity are patent and compressible segmentally. There is no evidence of left lower extremity deep vein thrombosis. Valvular competence appears intac t within the proximal deep venous system on the left . The left great saphenous vein appears patent a nd compressible segmentally. A non-vascular, hypoechoic structure is noted in the left poplitea l space, measuring 2.33 cm x 0.74 cm. This probably represents a popliteal cyst. Clinical correlat ion is advised. Ordering Physician: Mati Escudero Referring Physician: MAURO BUTTERFIELD Performed By: Komal Reagan, VY, RVT
== END ==
PROVIDERS: PCP Family Medicine; Referring Provider Podiatrist; Visit Provider Podiatrist
DX: M79.89 Other specified soft tissue disorders (principal); M79.605 Pain in left leg
CPT/HCPCS: 93971

== ENCOUNTER 2020-10-16 09:15 | Outpatient (RCR) | payer MEDICARE, SELFPAY ==
[2020-09-22 00:39] VITALS: BP 128/72; PULSE 64; RESP 16; TEMP 36
[2020-09-25 08:50] VITALS: BMI 23.6
--- NOTE | 2020-09-25 09:29 | PCM.WC.PN ---
History of Present Illness Date of Service: 09/25/20 Chief Complaint: Left foot first, fifth digit ulceration Left fourth digit amputation site ulceration PAD History of Wound: Patient is referral from [facility]ud[facility]. 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 Patient has a history of smoking. Patient is diabetic as well but states is very well controlled averaging blood sugar in the low 100s. Patient denies any trauma or rubbing to start the wounds. Patient had intervention done by Dr. Nicholson on 06/12/2020. Since then patient has complaints of post procedure reperfusion pain. She states it is worse at night and she has some relief with dangling of the foot. She has had some increase in redness and swelling noted as well. Patient saw Dr. Tenorio June 26, 2020 and was started on 100mg gabapentin TID. She has noticed some improvement in her pain. 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 Patient was hospitalized 07/07/20 for worsening toe wound and blood in stool. 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 Amputation of 4th digit with debridement of 1st and 5th digit ulcerations was performed 07/08/20. 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 Patient was discharged on levaquin every other day due to impairment of her kidneys. Patient was also discharged on oxycodone. Patient relates improvement of her pain since surgery. Patient relates she is no longer taking strong pain meds. Patient continues at the wound care center for continued care ulcerations Patient had follow-up scan with Dr. Nicholson and she relates that Dr. Nicholson would like to further intervention at [facility] in [place], [place]. Patient CTA 09/21/20 but has yet to hear the results. Patient is to contact Dr Nicholson's office about them. Patient relates that she is afraid of potential pain after the procedure Progress of Wound: worsening, more fibrotic tissue noted, mild maceration, foot is colder, more red vascular color changes going up foot Subjective Subjective: Patient seen and examined resting comfortably. Patient denies any new pedal complaints. Patient denies any nausea, fever, chills, chest pain, shortness of breath, cough, streaking, purulence, vomiting. Objective Data Objective Data Vital Signs: Vital Signs Temp Pulse Resp BP 96.8 F L 64 16 128/72 H 09/22/20 00:39 09/22/20 00:39 09/22/20 00:39 09/22/20 00:39 Weight: 328 lb 7.82 oz Body Mass Index (BMI) 23.6 Assessment & Plan Assessment/Plan (1) 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 without evidence of necrosis: Status: Chronic Code(s): L97.526 - 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 without evidence of necrosis (2) Non-pressure chronic ulcer of other part of left foot with fat layer exposed: Status: Chronic Code(s): L97.522 - Non-pressure chronic ulcer of other part of left foot with fat layer exposed (3) Type 2 diabetes mellitus: Status: Chronic Code(s): E11.9 - Type 2 diabetes mellitus without complications Qualifiers: 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: unspecified correction insulin use status Diabetes mellitus complication status: with circulatory complication Diabetes mellitus complication detail: with peripheral angiopathy with gangrene Qualified Code(s): E11.52 - Type 2 diabetes mellitus with diabetic peripheral angiopathy with gangrene (4) PAD (peripheral artery disease): Status: Chronic Code(s): I73.9 - Peripheral vascular disease, unspecified (5) Peripheral arterial occlusive disease: Status: Chronic Code(s): I77.9 - Disorder of arteries and arterioles, unspecified (6) History of tobacco abuse: Status: Resolved Code(s): Z87.891 - Personal history of nicotine dependence Plan: Patient seen and examined. Wounds are to have signs of worsening with increased redness consistent with poor vascular status, cool toes and foot especially compared to contralateral limb, wounds are fibrotic. Fifth digit continues to probe to bone. Patient is also having increase in her pain. There is increased erythema and edema. There is maceration noted especially around fourth digit amputation site Betadine wet-to-dry daily dressing changes ulceration sites were lightly sharply debrided after verbal consent was obtained. Patient has peripheral vascular disease. Patient has been seeing Dr. Nicholson for this. Patient had intervention on 06/12/2020. Since then patient has had some reperfusion pain with swelling that is worse at night. Patient got new scans last week but is yet to receive results. There is plan for further intervention at [facility] in [facility]. Patient does not have the date of this intervention at this time. Patient was encouraged to call Dr. Nicholson's office in order to obtain this information. She is also to inquire about the results of her skin that she got on 09/21/2020. The pain has improved but still present at night. Patient saw Dr. Tenorio on 06/26/2020 and he prescribed gabapentin which patient relates helps some. Patient has recent LEAS prior to intervention with Dr. Nicholson with left monophasic pulses with an JENY of 0.59 from the PT artery and a TBI of 0.12. On the right side the DP and PT are monophasic as well with an JENY of 0.53 on the PT artery and 0.75 to the DP artery and a TBI of 0.3. 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 Patient had vascular duplex ultrasound obtained on 08/29/2020 which demonstrates severe stenosis of the left distal external iliac artery Patient was hospitalized on 07/07/20 for worsening 4th toe ulceration and blood in stool. Patient was noted to have rapid increase in gangrene to 4th digit. Amputation of 4th digit and debridement of 1st and 5th digit was performed 07/08/20. OM was confirmed with PsAg. Patient was discharged on Levaquin every other day due to kidney function she has since finished. Reviewed proper wound care with patient. Discussed with the patient the importance of offloading the sites with wide enough shoe gear if she is to be wearing shoes, proper diet, good blood sugar control. Patient has offloading boot. All questions were answered patient satisfaction. Discussed with the patient all concerning signs and symptoms to watch out for and to contact office if he either presents. Discussed with patient that her foot looks to be worsening as far as her vascular status is concerned. Discussed with patient the importance of following up with Dr. Nicholson in order to get this started out. Discussed at this time given her poor vascular status it is unlikely that she will notice much progress in her wounds until she has her intervention with Dr. Nicholson. Discussed that our goals at this time are to prevent infection and worsening of the wounds until she is able to get her procedure with Dr. Nicholson to improve her blood flow. Discussed with her how important it is to have proper blood flow in order to obtain healing. An x-ray of the left foot was ordered today. This was to assess if there is any worsening to the bones in her feet especially given that her left fifth digit wound probes to bone and has for the last couple weeks. Patient is to follow-up in 1 week. This note was generated with [employer] dictation software. It may contain incorrect words, spelling, and punctuation that were not noted in checking the note before signing. The problems addressed require a low medical decision making level which includes two or more minor problems, a stable chronic illness, or an acute uncomplicated illness or injury. Physical Exam Const alert and no apparent distress General Appearance: cooperative and comfortable HEENT Head and Scalp: atraumatic Resp normal respiratory effort Effort and Inspection: able to speak in complete sentences Extremity no calf tenderness and no pedal edema General Extremity: Negative for clubbing Peripheral Pulses: Yes posterior tibial pulses present left (nonpalpable) and dorsalis pedis pulses present left 1+ Skin General Skin Exam: Negative for ecchymosis, eschar, pallor or dermatitis Rashes: no rashes Wounds: wounds noted Wound Narrative: ulcers noted to left first, fifth toes and fourth amputation site No malodor, purulence, streaking, fluctuation, crepitus, or other signs of infection. Skin is atrophic and hairless. Wounds have a fibrotic base. There is increase in fibrotic tissue noted. There is surrounding red color change which is extending up the foot consistent with poor vascular status. This is worsened since last visit. Discussed changing the vascular nature not infectious in nature. The toes are cool to the touch. There is decreased capillary refill time noted. Left side skin temperature is cooler than the right side. Neuro Gait (Neuro): normal gait, antalgic and assistive device used Sensory Exam: extremities light-touch: decreased Motor Exam: strength 5/5 throughout Psych Appearance: appropriate Attitude: calm Debridement Note Debridement Note Wound debrided: Hallux and fourth digit amputation Laterality: Left Wound Grade/Stage: Luciano one Type of Debridement: Excisional debridement Anesthesia Used: 5% Lidocaine Gel Depth: in the subcutaneous layer Percentage of wound debrided: 100 Instrument Used: 3mm curette Tissue Removed: includes fibrous, devitalized, biofilm, callus and slough tissue Severity: Fat Layer Exposed Amount of bleeding with debridement: None Patient tolerated procedure: Patient tolerated procedure well Debridement Free Text: Very light debridement was done today due to worsening of for vascular changes noted Additional Wound Wound debrided: Fifth digit Laterality: Left Wound Grade/Stage: Luciano two Type of Debridement: Excisional debridement Anesthesia Used: 5% Lidocaine Gel Depth: to bone (Debrided to subcu) Percentage of wound debrided: 100 Instrument Used: 3mm curette Tissue Removed: Includes fibrous, devitalized, biofilm, callus and slough tissue Severity: Fat Layer Exposed (Bone is exposed with suspicion of possible bone infection) Amount of bleeding with debridement: None (Very light debridement was done due to worsening of patient's vascular status) Patient tolerated procedure: Patient tolerated procedure well
--- NOTE | 2020-09-25 10:09 | RAD_ITS ---
STUDY: X-RAY - LEFT FOOT CLINICAL: Nonhealing ulcers of the first and fifth toes for 7-8 months. TECHNIQUE: 3 view(s) of the foot. COMPARISON: Radiographs 07/08/2020 and 05/28/2020. FINDINGS: Normal talus, calcaneus, and tarsal bones. Normal visualized subtalar, talonavicular, calcaneocuboid, tarsal and tarsometatarsal articulations. Normal metatarsi. Normal metatarsophalangeal joint of the great toe. Normal tibial and fibular sesamoid bones. Normal interphalangeal joint of the great toe. Normal phalanges of the great toe. Normal second through fifth metatarsophalangeal joints. There is amputation of the fourth digit at the level of the metatarsophalangeal joint. There is joint space narrowing of the interphalangeal joints of the second, third and fifth toes. There is vascular calcification. 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 Amputation of the fourth digit. Electronically Signed: Jose Salinas MD at 11:18 EDT Tel , Service support ,
--- NOTE | 2020-09-25 12:01 | PN.PCM_ITS ---
History of Present Illness Date of Service: 09/25/20 Chief Complaint: Left foot first, fifth digit ulceration Left fourth digit amputation site ulceration PAD History of Wound: Patient is referral from [facility]ud[facility]. 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 Patient has a history of smoking. Patient is diabetic as well but states is very well controlled averaging blood sugar in the low 100s. Patient denies any trauma or rubbing to start the wounds. Patient had intervention done by Dr. Nicholson on 06/12/2020. Since then patient has complaints of post procedure reperfusion pain. She states it is worse at night and she has some relief with dangling of the foot. She has had some increase in redness and swelling noted as well. Patient saw Dr. Tenorio June 26, 2020 and was started on 100mg gabapentin TID. She has noticed some improvement in her pain. 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 Patient was hospitalized 07/07/20 for worsening toe wound and blood in stool. 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 Amputation of 4th digit with debridement of 1st and 5th digit ulcerations was performed 07/08/20. 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 Patient was discharged on levaquin every other day due to impairment of her kidneys. Patient was also discharged on oxycodone. Patient relates improvement of her pain since surgery. Patient relates she is no longer taking strong pain meds. Patient continues at the wound care center for continued care ulcerations Patient had follow-up scan with Dr. Nicholson and she relates that Dr. Nicholson would like to further intervention at [facility] in [place], [place]. Patient CTA 09/21/20 but has yet to hear the results. Patient is to contact Dr Nicholson's office about them. Patient relates that she is afraid of potential pain after the procedure Progress of Wound: worsening, more fibrotic tissue noted, mild maceration, foot is colder, more red vascular color changes going up foot Subjective Subjective: Patient seen and examined resting comfortably. Patient relates she thinks her foot is getting worse. Patient denies any nausea, fever, chills, chest pain, shortness of breath, cough, streaking, purulence, vomiting. Objective Data Objective Data Vital Signs: Vital Signs Temp Pulse Resp BP 96.8 F L 64 16 128/72 H 09/22/20 00:39 09/22/20 00:39 09/22/20 00:39 09/22/20 00:39 Weight: 328 lb 7.82 oz Body Mass Index (BMI) 23.6 Assessment & Plan Assessment/Plan (1) 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 without evidence of necrosis: Status: Chronic Code(s): L97.526 - 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 without evidence of necrosis (2) Non-pressure chronic ulcer of other part of left foot with fat layer exposed: Status: Chronic Code(s): L97.522 - Non-pressure chronic ulcer of other part of left foot with fat layer exposed (3) Peripheral arterial occlusive disease: Status: Chronic Code(s): I77.9 - Disorder of arteries and arterioles, unspecified (4) PAD (peripheral artery disease): Status: Chronic Code(s): I73.9 - Peripheral vascular disease, unspecified (5) History of tobacco abuse: Status: Resolved Code(s): Z87.891 - Personal history of nicotine dependence (6) Type 2 diabetes mellitus: Status: Chronic Code(s): E11.9 - Type 2 diabetes mellitus without complications Qualifiers: Diabetes mellitus complication detail: with peripheral angiopathy with gangrene Diabetes mellitus complication status: with circulatory complication 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 Wounds are to have signs of worsening with increased redness consistent with poor vascular status, cool toes and foot especially compared to contralateral limb, wounds are fibrotic. Fifth digit continues to probe to bone. Patient is also having increase in her pain. There is increased erythema and edema. There is maceration noted especially around fourth digit amputation site Betadine wet-to-dry daily dressing changes ulceration sites were lightly sharply debrided after verbal consent was obtained. There were lightly debrided due to worsening vascular status changes noted upon exam Patient has peripheral vascular disease. Patient has been seeing Dr. Nicholson for this. Patient had intervention on 06/12/2020. Since then patient has had some reperfusion pain with swelling that is worse at night. Patient got new scans last week but is yet to receive results. There is plan for further intervention at [facility] in [facility]. Patient does not have the date of this intervention at this time. Patient was encouraged to call Dr. Nicholson's office in order to obtain this information. She is also to inquire about the results of her scan that she got on 09/21/2020. The pain has improved but still present at night. Patient saw Dr. Tenorio on 06/26/2020 and he prescribed gabapentin which patient relates helps some. Patient has recent LEAS prior to intervention with Dr. Nicholson with left monophasic pulses with an JENY of 0.59 from the PT artery and a TBI of 0.12. On the right side the DP and PT are monophasic as well with an JENY of 0.53 on the PT artery and 0.75 to the DP artery and a TBI of 0.3. 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 Patient had vascular duplex ultrasound obtained on 08/29/2020 which demonstrates severe stenosis of the left distal external iliac artery Patient was hospitalized on 07/07/20 for worsening 4th toe ulceration and blood in stool. Patient was noted to have rapid increase in gangrene to 4th digit. Amputation of 4th digit and debridement of 1st and 5th digit was performed 07/08/20. OM was confirmed with PsAg. Patient was discharged on Levaquin every other day due to kidney function she has since finished. Reviewed proper wound care with patient. Discussed with the patient the importance of offloading the sites with wide enough shoe gear if she is to be wearing shoes, proper diet, good blood sugar control. Patient has offloading boot. All questions were answered patient satisfaction. Discussed with the patient all concerning signs and symptoms to watch out for and to contact office if he either presents. Discussed with patient that her foot looks to be worsening as far as her vascular status is concerned. Discussed with patient the importance of following up with Dr. Nicholson in order to get this sorted out. Discussed at this time given her poor vascular status it is unlikely that she will notice much progress in her wounds until she has her intervention with Dr. Nicholson. Discu ssed that our goals at this time are to prevent infection and worsening of the wounds until she is able to get her procedure with Dr. Nicholson to improve her blood flow. Discussed with her how important it is to have proper blood flow in order to obtain healing. An x-ray of the left foot was ordered today. This was to assess if there is any worsening to the bones in her feet especially given that her left fifth digit wound probes to bone and has for the last couple weeks. X-ray from 09/25/2020 showed amputation of the fourth digit. There is no other bony changes consistent with arthritic steel myelitis noted to remaining digits at ulceration sites. There is no fractures or soft tissue emphysema noted Patient is to follow-up in 1 week. This note was generated with [employer] dictation software. It may contain incorrect words, spelling, and punctuation that were not noted in checking the note before signing. The problems addressed require a low medical decision making level which includes two or more minor problems, a stable chronic illness, or an acute uncomplicated illness or injury. The problems addressed require a low medical decision making level which includes two or more minor problems, a stable chronic illness, or an acute uncomplicated illness or injury. Physical Exam Const alert and no apparent distress General Appearance: cooperative and comfortable Resp normal respiratory effort Effort and Inspection: able to speak in complete sentences Extremity no calf tenderness General Extremity: edema left lower extremity mild; Negative for clubbing Peripheral Pulses: Yes posterior tibial pulses present left other (Nonpalpable) and dorsalis pedis pulses present left diminished Skin General Skin Exam: Negative for ecchymosis, eschar, pallor or dermatitis Rashes: no rashes Wounds: wounds noted Wound Narrative: ulcers noted to left first, fifth toes and fourth amputation site No malodor, purulence, streaking, fluctuation, crepitus, or other signs of infection. Skin is atrophic and hairless. Wounds have a fibrotic base. There is increase in fibrotic tissue noted. There is surrounding red color change which is extending up the foot consistent with poor vascular status. This is worsened since last visit. Discussed changing the vascular nature not infectious in nature. The toes are cool to the touch. There is decreased capillary refill time noted. Left side skin temperature is cooler than the right side. Neuro Gait (Neuro): antalgic Sensory Exam: extremities light-touch: decreased Motor Exam: strength 5/5 throughout Psych Appearance: appropriate Attitude: calm Debridement Note Debridement Note Post-Debridement Measurements and Additional Note: Post-Debridement Measurements/Treatment WC - Nurse 2 - General Ulcer CM Notes Start: 09/25/20 08:50 Freq: Status: Active Protocol: Activity Type Activity Date Activity User E-Sign Co-Sign Detail Recorded Client Recorded Date Recorded By Document 09/25/20 09:13 RICHI [id number] 09/25/20 09:30 RICHI 09/25/20 09:13 Wound Center Nurse 2 #3 4th lateral toe/amp site -Time 09:26 -Correct Patient Yes -Correct Side, Site, Position Yes -Correct Procedure Yes -Procedure Performed Yes -Type of Procedure Debridement -Clinical Debridement Subcutaneous -Tissue Removed Subcutaneous -Post Debridement (cm) - Length 2.4 -Post Debridement (cm) - Width 0.9 -Post Debridement (cm) - Depth 0.4 -Total Square (Post) (cm) 2.16 -Area of Debridement (cm) - Length 2.4 -Area of Debridement (cm) - Width 0.9 -Total Square (Area) (cm) 2.16 -Tunneling No -Undermining/Tunneling No -Circular Undermining No -Wound/Ulcer Outcome Not Healed -Ulcer Cleansing Rinsed/ Irrigated with Saline -Foul Odor after Cleansing Yes, Due to Product Use -Bioengineered Tissue No -Bleeding Controlled with Pressure -Offloading Yes -Type of Offloading Surgical Shoe -Treatment Response Procedure Tolerated Well -Debridement - Subq, 1st 20sq cm Yes #2 L 5th toe -Time 09:26 -Correct Patient Yes -Correct Side, Site, Position Yes -Correct Procedure Yes -Procedure Performed Yes -Type of Procedure Debridement -Clinical Debridement Subcutaneous -Tissue Removed Subcutaneous -Post Debridement (cm) - Length 1 -Post Debridement (cm) - Width 0.7 -Post Debridement (cm) - Depth 0.3 -Total Square (Post) (cm) 0.7 -Area of Debridement (cm) - Length 1 -Area of Debridement (cm) - Width 0.7 -Total Square (Area) (cm) 0.7 -Tunneling No -Undermining/Tunneling No -Circular Undermining No -Wound/Ulcer Outcome Not Healed -Ulcer Cleansing Rinsed/ Irrigated with Saline -Foul Odor after Cleansing No -Bioengineered Tissue No -Bleeding Controlled with Pressure -Offloading Yes -Type of Offloading Surgical Shoe -Treatment Response Procedure Tolerated Well -Debridement - Subq, 1st 20sq cm No #1 L Grt Toe -Time 09:28 -Correct Patient Yes -Correct Side, Site, Position Yes -Correct Procedure Yes -Procedure Performed Yes -Type of Procedure Debridement -Clinical Debridement Subcutaneous -Tissue Removed Subcutaneous -Post Debridement (cm) - Length 1 -Post Debridement (cm) - Width 0.5 -Post Debridement (cm) - Depth 0.2 -Total Square (Post) (cm) 0.5 -Area of Debridement (cm) - Length 1 -Area of Debridement (cm) - Width 0.5 -Total Square (Area) (cm) 0.5 -Tunneling No -Undermining/Tunneling No -Circular Undermining No -Wound/Ulcer Outcome Not Healed -Ulcer Cleansing Rinsed/ Irrigated with Saline -Foul Odor after Cleansing No -Bioengineered Tissue No -Bleeding Controlled with Pressure -Type of Offloading Surgical Shoe -Treatment Response Procedure Tolerated Well -Debridement - Subq, 1st 20sq cm No Pain Scale: 0-10 Numeric Is Patient Pain Free? Yes WC - Nurse 3 - General Ulcer D/C NN Start: 09/25/20 08:50 Freq: Status: Active Protocol: Activity Type Activity Date Activity User E-Sign Co-Sign Detail Recorded Client Recorded Date Recorded By Document 09/25/20 09:46 DL [id number] 09/25/20 09:47 DL 09/25/20 09:46 Wound Care Nurse 3 #3 4th lateral toe/amp site -Ulcer Cleansing Wound Cleanser -Foul Odor after Cleansing No -Other Dressing betadine -Primary Dressing Covered/Secured with Dry Gauze & Roll Gauze, Secured with Tape #2 L 5th toe -Ulcer Cleansing Wound Cleanser -Foul Odor after Cleansing No -Other Dressing betadine -Primary Dressing Covered/Secured with Dry Gauze & Roll Gauze, Secured with Tape #1 L Grt Toe -Ulcer Cleansing Wound Cleanser -Foul Odor after Cleansing No -Other Dressing betadine -Primary Dressing Covered/Secured with Dry Gauze & Roll Gauze, Secured with Tape Treatment Response Procedure Tolerated Well Pain Scale: 0-10 Numeric Is Patient Pain Free? Yes WC - Visit Discharge Discharge Condition Stable Ambulatory Status Ambulatory,Cane Transportation Private Auto Facility Type Home Health Orders Sent Yes Wound debrided: Hallux and fourth amputation site Laterality: Left Wound Grade/Stage: Luciano 1 Type of Debridement: Excisional debridement Anesthesia Used: 5% Lidocaine Gel Depth: in the subcutaneous layer Percentage of wound debrided: 100 Instrument Used: 3mm curette Tissue Removed: Includes fibrous, devitalized, biofilm, callus and slough tissue Severity: Fat Layer Exposed Amount of bleeding with debridement: None (Light debridement was done given vascular status changes) Patient tolerated procedure: Patient tolerated procedure well Additional Wound Wound debrided: Fifth toe Laterality: Left Wound Grade/Stage: Luciano 2 Type of Debridement: Excisional debridement Anesthesia Used: 5% Lidocaine Gel Depth: to bone (Brightest subcutaneous level) Percentage of wound debrided: 100 Instrument Used: 3mm curette Tissue Removed: Includes fibrous, devitalized, biofilm, callus and slough tissue Severity: Necrosis of Bone Amount of bleeding with debridement: Mild Bleeding Controlled with: Pressure
[2020-10-02 09:36] VITALS: BP 134/53; PULSE 63; RESP 20; TEMP 36.6; BMI 23.6
[2020-10-02 09:48] VITALS: BMI 23.6
--- NOTE | 2020-10-02 11:52 | PCM.WC.PN ---
History of Present Illness Date of Service: 10/02/20 Chief Complaint: Left foot first, fifth digit ulceration Left fourth digit amputation site ulceration PAD History of Wound: Patient is referral from [facility]ud[facility]. 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 Patient has a history of smoking. Patient is diabetic as well but states is very well controlled averaging blood sugar in the low 100s. Patient denies any trauma or rubbing to start the wounds. Patient had intervention done by Dr. Nicholson on 06/12/2020. Since then patient has complaints of post procedure reperfusion pain. She states it is worse at night and she has some relief with dangling of the foot. She has had some increase in redness and swelling noted as well. Patient saw Dr. Tenorio June 26, 2020 and was started on 100mg gabapentin TID. She has noticed some improvement in her pain. 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 Patient was hospitalized 07/07/20 for worsening toe wound and blood in stool. 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 Amputation of 4th digit with debridement of 1st and 5th digit ulcerations was performed 07/08/20. 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 Patient was discharged on levaquin every other day due to impairment of her kidneys. Patient was also discharged on oxycodone. Patient relates improvement of her pain since surgery. Patient relates she is no longer taking strong pain meds. Patient continues at the wound care center for continued care ulcerations Patient had follow-up scan with Dr. Nicholson and she relates that Dr. Nicholson would like to further intervention at [facility] in [place], [place]. Patient CTA 09/21/20 but has yet to hear the results. Patient is to have intervention with Dr. Nicholson on October 11, 2020 Progress of Wound: worsening, more fibrotic tissue noted, mild maceration, foot is colder, more red vascular color changes has spread even further up the foot Subjective Subjective: Patient seen and examined resting comfortably. Patient relates that her pain is getting worse in her left foot. Patient relates relief with dangling the foot over the edge of the bed at night and worsening of pain with elevation of the extremity. Patient denies any nausea, fever, chills, chest pain, shortness of breath, cough, streaking, purulence, vomiting. Objective Data Objective Data Vital Signs: Vital Signs Temp Pulse Resp BP 98 F 63 20 H 134/53 H 10/02/20 09:36 10/02/20 09:36 10/02/20 09:36 10/02/20 09:36 Weight: 149 kg Body Mass Index (BMI) 23.6 Assessment & Plan Assessment/Plan (1) 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 without evidence of necrosis: (2) Non-pressure chronic ulcer of other part of left foot with fat layer exposed: (3) Peripheral arterial occlusive disease: (4) PAD (peripheral artery disease): (5) History of tobacco abuse: (6) Type 2 diabetes mellitus: QUALIFIERS: Diabetes mellitus complication detail: with peripheral angiopathy with gangrene Diabetes mellitus complication status: with circulatory complication Diabetes mellitus terminal supervisor insulin use: unspecified terminal supervisor insulin use status Qualified Code(s): E11.52 - Type 2 diabetes mellitus with diabetic peripheral angiopathy with gangrene (7) Amputated toe: QUALIFIERS: Laterality: left Qualified Code(s): S98.132A - Complete traumatic amputation of one left lesser toe, initial encounter PLAN: Patient seen and examined. Wounds are to have signs of worsening with increased redness consistent with poor vascular status, cool toes and foot especially compared to contralateral limb, wounds are fibrotic. Patient is also having increase in her pain. She is experiencing rest pain. She experiences pain with elevation and some relief with dependence of the extremity. It is noted that she has dependent rubor as well. There is increased erythema and edema. Betadine wet-to-dry daily dressing changes. Discussed with patient our goal at this time is to keep the wound stable and try to prevent them from getting worse while we await further vascular intervention. Discussed with patient at length that her pain and worsening of her wounds is most likely from her poor vascular status. ulceration sites were lightly sharply debrided after verbal consent was obtained. There were lightly debrided due to worsening vascular status changes noted upon exam Patient has peripheral vascular disease. Patient has been seeing Dr. Nicholson for this. Patient had intervention on 06/12/2020. Since then patient has had some reperfusion pain with swelling that is worse at night. Patient got new scans last week but is yet to receive results. There is plan for further intervention at [facility] in [facility] on 10/11/2020. Patient relates that she has not gotten the results of her scan taken on 09/21/2020. The pain has improved but still present at night. Patient saw Dr. Tenorio on 06/26/2020 and he prescribed gabapentin which patient relates helps some. Patient has recent LEAS prior to intervention with Dr. Nicholson with left monophasic pulses with an JENY of 0.59 from the PT artery and a TBI of 0.12. On the right side the DP and PT are monophasic as well with an JENY of 0.53 on the PT artery and 0.75 to the DP artery and a TBI of 0.3. 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 Patient had vascular duplex ultrasound obtained on 08/29/2020 which demonstrates severe stenosis of the left distal external iliac artery Patient was hospitalized on 07/07/20 for worsening 4th toe ulceration and blood in stool. Patient was noted to have rapid increase in gangrene to 4th digit. Amputation of 4th digit and debridement of 1st and 5th digit was performed 07/08/20. OM was confirmed with PsAg. Patient was discharged on Levaquin every other day due to kidney function she has since finished. Reviewed proper wound care with patient. Discussed with the patient the importance of offloading the sites with wide enough shoe gear if she is to be wearing shoes, proper diet, good blood sugar control. Patient has offloading boot. All questions were answered patient satisfaction. Discussed with the patient all concerning signs and symptoms to watch out for and to contact office if he either presents. Discussed with patient that her foot looks to be worsening as far as her vascular status is concerned. Discussed with patient the importance of following up with Dr. Nicholson in order to get this sorted out. Discussed at this time given her poor vascular status it is unlikely that she will notice much progress in her wounds until she has her intervention with Dr. Nicholson. Discussed that our goals at this time are to prevent infection and worsening of the wounds until she is able to get her procedure with Dr. Nicholson to improve her blood flow. Discussed with her how important it is to have proper blood flow in order to obtain healing. Discussed with the patient that her significant smoking history likely played a factor into her poor blood flow. X-ray from 09/25/2020 showed amputation of the fourth digit. There is no other bony changes consistent with osteomyelitis noted to remaining digits at ulceration sites. There is no fractures or soft tissue emphysema noted Patient is to follow-up in 1 week. This note was generated with [employer] dictation software. It may contain incorrect words, spelling, and punctuation that were not noted in checking the note before signing. The problems addressed require a low medical decision making level which includes two or more minor problems, a stable chronic illness, or an acute uncomplicated illness or injury. Physical Exam Const alert and no apparent distress General Appearance: cooperative and comfortable Resp normal respiratory effort Effort and Inspection: able to speak in complete sentences Extremity no calf tenderness General Extremity: edema left lower extremity mild; Negative for clubbing Peripheral Pulses: Yes posterior tibial pulses present right 1+ and left (Nonpalpable) and dorsalis pedis pulses present bilateral 1+ Skin General Skin Exam: Negative for ecchymosis, eschar, pallor or dermatitis Rashes: no rashes Wounds: wounds noted Wound Narrative: ulcers noted to left first, fifth toes and fourth amputation site No malodor, purulence, streaking, fluctuation, crepitus, or other signs of infection. Skin is atrophic and hairless. Wounds have a fibrotic base with some signs dry eschar changes to wound bases. There is increase in fibrotic tissue noted especially to the fourth digit amputation site. The fourth digit amputation site is also noted to be close to the metatarsal head in depth. The fifth digit amputation site is noted to be very close to the phalanx as well. There is surrounding red color change which is extending up the foot consistent with poor vascular status. This is worsened since last visit. The foot is also noted to be colder. Patient is also noted to have toes turn white with even mild elevation. Discussed changing the vascular nature not infectious in nature. The toes are cool to the touch. There is decreased capillary refill time noted. Left side skin temperature is cooler than the right side. Neuro Gait (Neuro): antalgic Sensory Exam: extremities light-touch: decreased Motor Exam: strength 5/5 throughout Psych Appearance: appropriate Attitude: calm Debridement Note Debridement Note Post-Debridement Measurements and Additional Note: Post-Debridement Measurements/Treatment SOPHIA - Nurse 1 - General Ulcer Assessment Start: 09/25/20 08:50 Freq: Status: Active Protocol: SOPHIA.LOWEXT Activity Type Activity Date Activity User E-Sign Co-Sign Detail Recorded Client Recorded Date Recorded By Document 09/25/20 08:50 MW [id number] 09/25/20 09:01 MW Document 10/02/20 09:36 DL [id number] 10/02/20 09:47 DL Edit Result 10/02/20 09:36 DL (1) [id number] 10/02/20 10:32 DL Document 10/02/20 09:48 DL [id number] 10/02/20 09:48 DL (1) Pulse Rate (60-100) => 63 Pulse Location => Monitor Blood Pressure (90/60-120/80) => 134/53 H Blood Pressure Mean (mm Hg) => 80 Source => Monitor 09/25/20 10/02/20 10/02/20 08:50 09:36 09:48 - Today's Visit Information Type of service Follow-up Visit (Physician/ADVANCED [employer]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 ) Arrival Mode Ambulatory Transfer Assistance None Patient Identification Verified (Name & Yes ) Patient Requires Transmission-Based No Precautions Finger Stick Blood Sugar(mg/dl) (if 123 indicated): Blood Sugar Stated by Patient Height and Weight Body Mass Index (BMI) 23.6 23.6 23.6 BMI Classification Normal Normal Normal Temperature (97.8 F-99.1 F) 98 F Temperature Source Temporal Pulse Rate (60-100) 63 Pulse Location Monitor Respiratory Rate (12-18) 20 H Respiratory rate source Observation Blood Pressure (90/60-120/80) 134/53 H Blood Pressure Mean (mm Hg) 80 Source Monitor Vital Signs Comment C/O Increased pain. L Foot red and warm today. History Since Last Visit- (Skip if this is Patient's initial visit) Have you changed medications since your No last visit? Any new allergies or adverse reactions No Had a fall/change in ADL's that may No increase risk of falls Signs or symptoms of abuse and/or No neglect since last visit Have you been in the hospital since your No last visit? Has dressing in place as prescribed Yes Has compression in place as prescribed N/A Has offloadiing in place as prescribed Yes Experienced any changes in pain level or No management Left Footwear Surgical Shoe with pressure relief insole Pain Scale: 0-10 Numeric Is Patient Pain Free? Yes - Nurse 1 - General Ulcer Measurement Start: 09/25/20 08:50 Freq: Status: Active Protocol: Activity Type Activity Date Activity User E-Sign Co-Sign Detail Recorded Client Recorded Date Recorded By Document 09/25/20 08:50 MW [id number] 09/25/20 09:01 MW Document 10/02/20 09:36 DL [id number] 10/02/20 09:47 DL 09/25/20 10/02/20 08:50 09:36 Wound Center Nurse 1 #3 4th lateral toe/amp site -Current Size (cm) - Length 2.3 2.6 -Current Size (cm) - Width 0.7 0.6 -Current Size (cm) - Depth 0.1 0.6 -Total Square Cm 1.61 1.56 -Photo Taken No No -Exudate Amt Small Small -Exudate Type Serosanguineous Serosanguineous -Wound Margin Distinct, Distinct, Outline Outline Attached Attached -Granulation Amt None Present (0 None Present (0 %) %) -Necrosis Amt Large (67-100%) Large (67-100%) -Necrotic Tissue Type Adherent Slough -Structure Exposed N/A Tendon,N/A -Texture (Dot-wound Skin Appearance) Scarring Scarring -Moisture (Dot-wound Skin Appearance) Maceration No Abnormality -Color (Dot-wound Skin Appearance) Erythema,Rubor Ecchymosis, Rubor -Temperature (Dot-wound Skin No Abnormality No Abnormality Appearance) (Pt Warm) (Pt Warm) -Tenderness on Palpation (Dot-wound No Yes Skin Appearance) -Ulcer Cleansing Wound Cleanser Wound Cleanser -Foul Odor after Cleansing No No -Anesthetic Used 4% Lidocaine 5% Lidocaine Solution Gel #2 L 5th toe -Current Size (cm) - Length 0.8 1 -Current Size (cm) - Width 0.7 0.7 -Current Size (cm) - Depth 0.2 0.2 -Total Square Cm 0.56 0.7 -Photo Taken No No -Exudate Amt Small None Present -Exudate Type Serosanguineous -Wound Margin Distinct, Distinct, Outline Outline Attached Attached -Granulation Amt None Present (0 %) -Necrosis Amt Large (67-100%) Large (67-100%) -Necrotic Tissue Type Adherent Slough Adherent Slough -Structure Exposed N/A N/A -Texture (Dot-wound Skin Appearance) Scarring Scarring -Moisture (Dot-wound Skin Appearance) Dry/Scaly No Abnormality -Color (Dot-wound Skin Appearance) Erythema,Rubor No Abnormality, Rubor -Temperature (Dot-wound Skin No Abnormality No Abnormality Appearance) (Pt Warm) (Pt Warm) -Tenderness on Palpation (Dot-wound No Yes Skin Appearance) -Ulcer Cleansing Wound Cleanser Wound Cleanser -Foul Odor after Cleansing No No -Anesthetic Used 4% Lidocaine 5% Lidocaine Solution Gel #1 L Grt Toe -Current Size (cm) - Length 0.8 0.9 -Current Size (cm) - Width 0.5 0.5 -Current Size (cm) - Depth 0.1 0.2 -Total Square Cm 0.40 0.45 -Photo Taken No No -Exudate Amt Small None Present -Exudate Type Serosanguineous -Wound Margin Distinct, Distinct, Outline Outline Attached Attached -Granulation Amt None Present (0 None Present (0 %) %) -Necrosis Amt Large (67-100%) Large (67-100%) -Necrotic Tissue Type Adherent Slough Adherent Slough -Structure Exposed N/A N/A -Texture (Dot-wound Skin Appearance) Scarring Scarring -Moisture (Dot-wound Skin Appearance) Dry/Scaly No Abnormality -Color (Dot-wound Skin Appearance) Erythema Assessed -Temperature (Dot-wound Skin No Abnormality No Abnormality Appearance) (Pt Warm) (Pt Warm) -Tenderness on Palpation (Dot-wound No Yes Skin Appearance) -Ulcer Cleansing Wound Cleanser Wound Cleanser -Foul Odor after Cleansing No No -Anesthetic Used 4% Lidocaine 5% Lidocaine Solution Gel WC - Nurse 2 - General Ulcer CM Notes Start: 09/25/20 08:50 Freq: Status: Active Protocol: Activity Type Activity Date Activity User E-Sign Co-Sign Detail Recorded Client Recorded Date Recorded By Document 09/25/20 09:13 RICHI [id number] 09/25/20 09:30 JF Document 10/02/20 10:19 RICHI [id number] 10/02/20 10:29 RICHI 09/25/20 10/02/20 09:13 10:19 Wound Center Nurse 2 #3 4th lateral toe/amp site -Time 09:26 10:20 -Correct Patient Yes Yes -Correct Side, Site, Position Yes Yes -Correct Procedure Yes Yes -Procedure Performed Yes Yes -Type of Procedure Debridement Debridement -Clinical Debridement Subcutaneous Subcutaneous -Tissue Removed Subcutaneous Subcutaneous -Post Debridement (cm) - Length 2.4 2.5 -Post Debridement (cm) - Width 0.9 1 -Post Debridement (cm) - Depth 0.4 0.7 -Total Square (Post) (cm) 2.16 2.5 -Area of Debridement (cm) - Length 2.4 2.5 -Area of Debridement (cm) - Width 0.9 1 -Total Square (Area) (cm) 2.16 2.5 -Tunneling No No -Undermining/Tunneling No No -Circular Undermining No No -Wound/Ulcer Outcome Not Healed Not Healed -Ulcer Cleansing Rinsed/ Rinsed/ Irrigated with Irrigated with Saline Saline -Foul Odor after Cleansing Yes, Due to No Product Use -Bioengineered Tissue No No -Bleeding Controlled with Pressure Pressure -Offloading Yes Yes -Type of Offloading Surgical Shoe Surgical Shoe -Treatment Response Procedure Procedure Tolerated Well Tolerated Well -Debridement - Subq, 1st 20sq cm Yes Yes #2 L 5th toe -Time 09:26 10:21 -Correct Patient Yes Yes -Correct Side, Site, Position Yes Yes -Correct Procedure Yes Yes -Procedure Performed Yes Yes -Type of Procedure Debridement Debridement -Clinical Debridement Subcutaneous Subcutaneous -Tissue Removed Subcutaneous Subcutaneous -Post Debridement (cm) - Length 1 1.7 -Post Debridement (cm) - Width 0.7 0.3 -Post Debridement (cm) - Depth 0.3 0.3 -Total Square (Post) (cm) 0.7 0.51 -Area of Debridement (cm) - Length 1 1.7 -Area of Debridement (cm) - Width 0.7 0.3 -Total Square (Area) (cm) 0.7 0.51 -Tunneling No No -Undermining/Tunneling No No -Circular Undermining No No -Wound/Ulcer Outcome Not Healed Not Healed -Ulcer Cleansing Rinsed/ Rinsed/ Irrigated with Irrigated with Saline Saline -Foul Odor after Cleansing No No -Bioengineered Tissue No No -Bleeding Controlled with Pressure Pressure -Offloading Yes Yes -Type of Offloading Surgical Shoe Surgical Shoe -Treatment Response Procedure Procedure Tolerated Well Tolerated Well -Debridement - Subq, 1st 20sq cm No No #1 L Grt Toe -Time 09:28 10:22 -Correct Patient Yes Yes -Correct Side, Site, Position Yes Yes -Correct Procedure Yes Yes -Procedure Performed Yes Yes -Type of Procedure Debridement Debridement -Clinical Debridement Subcutaneous Subcutaneous -Tissue Removed Subcutaneous Subcutaneous -Post Debridement (cm) - Length 1 0.8 -Post Debridement (cm) - Width 0.5 0.5 -Post Debridement (cm) - Depth 0.2 0.2 -Total Square (Post) (cm) 0.5 0.40 -Area of Debridement (cm) - Length 1 0.8 -Area of Debridement (cm) - Width 0.5 0.5 -Total Square (Area) (cm) 0.5 . -Tunneling No No -Undermining/Tunneling No No -Circular Undermining No No -Wound/Ulcer Outcome Not Healed Not Healed -Ulcer Cleansing Rinsed/ Rinsed/ Irrigated with Irrigated with Saline Saline -Foul Odor after Cleansing No No -Bioengineered Tissue No No -Bleeding Controlled with Pressure Pressure -Offloading Yes -Type of Offloading Surgical Shoe Surgical Shoe -Treatment Response Procedure Procedure Tolerated Well Tolerated Well -Debridement - Subq, 1st 20sq cm No No Pain Scale: 0-10 Numeric Is Patient Pain Free? Yes Yes WC - Nurse 3 - General Ulcer D/C NN Start: 09/25/20 08:50 Freq: Status: Active Protocol: Activity Type Activity Date Activity User E-Sign Co-Sign Detail Recorded Client Recorded Date Recorded By Document 09/25/20 09:46 DL [id number] 09/25/20 09:47 DL Document 10/02/20 11:10 DL [id number] 10/02/20 11:11 DL 09/25/20 10/02/20 09:46 11:10 Wound Care Nurse 3 #3 4th lateral toe/amp site -Ulcer Cleansing Wound Cleanser Rinsed/ Irrigated with Saline -Foul Odor after Cleansing No No -Other Dressing betadine betadine -Primary Dressing Covered/Secured with Dry Gauze & Dry Gauze & Roll Gauze, Roll Gauze, Secured with Secured with Tape Tape #2 L 5th toe -Ulcer Cleansing Wound Cleanser Rinsed/ Irrigated with Saline -Foul Odor after Cleansing No No -Other Dressing betadine betadine -Primary Dressing Covered/Secured with Dry Gauze & Dry Gauze & Roll Gauze, Roll Gauze, Secured with Secured with Tape Tape #1 L Grt Toe -Ulcer Cleansing Wound Cleanser Rinsed/ Irrigated with Saline -Foul Odor after Cleansing No No -Other Dressing betadine betadine -Primary Dressing Covered/Secured with Dry Gauze & Dry Gauze & Roll Gauze, Roll Gauze, Secured with Secured with Tape Tape Treatment Response Procedure Procedure Tolerated Well Tolerated Well Pain Scale: 0-10 Numeric Is Patient Pain Free? Yes Yes WC - Visit Discharge Discharge Condition Stable Stable Ambulatory Status Ambulatory,Cane Ambulatory Transportation Private Auto Private Auto Facility Type Home Health Home Health Orders Sent Yes Yes Wound debrided: First and fifth digit and fourth digit amputation site Laterality: Left Wound Grade/Stage: Luciano 1 Type of Debridement: Excisional debridement Anesthesia Used: 5% Lidocaine Gel Depth: in the subcutaneous layer Percentage of wound debrided: 100 Instrument Used: 3mm curette, #15 blade and Forceps Tissue Removed: includes fibrous, devitalized, biofilm, callus and slough tissue Severity: Fat Layer Exposed (Fifth digit and fourth digit amputation site are near bone) Amount of bleeding with debridement: Mild Bleeding Controlled with: Pressure Patient tolerated procedure: Patient tolerated procedure well Additional Wound Tissue Removed: Includes fibrous, devitalized, biofilm, callus and slough tissue
[2020-10-09 09:42] VITALS: BP 143/32; PULSE 65; RESP 18; TEMP 36.4; BMI 23.6
--- NOTE | 2020-10-09 12:33 | PN.PCM_ITS ---
History of Present Illness Date of Service: 10/09/20 Chief Complaint: Left foot first, fifth digit ulceration Left fourth digit amputation site ulceration PAD History of Wound: Patient is referral from [facility]ud[facility]. 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 Patient has a history of smoking. Patient is diabetic as well but states is very well controlled averaging blood sugar in the low 100s. Patient denies any trauma or rubbing to start the wounds. Patient had intervention done by Dr. Nicholson on 06/12/2020. Since then patient has complaints of post procedure reperfusion pain. She states it is worse at night and she has some relief with dangling of the foot. She has had some increase in redness and swelling noted as well. Patient saw Dr. Tenorio June 26, 2020 and was started on 100mg gabapentin TID. She has noticed some improvement in her pain. 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 Patient was hospitalized 07/07/20 for worsening toe wound and blood in stool. 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 Amputation of 4th digit with debridement of 1st and 5th digit ulcerations was performed 07/08/20. 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 Patient was discharged on levaquin every other day due to impairment of her kidneys. Patient was also discharged on oxycodone. Patient relates improvement of her pain since surgery. Patient relates she is no longer taking strong pain meds. Patient continues at the wound care center for continued care ulcerations Patient had follow-up scan with Dr. Nicholson and she relates that Dr. Nicholson would like to further intervention at [facility] in [place], [place]. Patient CTA 09/21/20 but has yet to hear the results. Patient is to have intervention with Dr. Nicholson on October 11, 2020 Patient was seen at [facility] emergency room department on 10/05/2020 for worsening pain to her left lower extremity. Patient had culture obtained at that time which did grow Pseudomonas. Patient was started on Levaquin per Dr. Escudero. Dr. Jama saw patient while she was in the emergency room and was noted to have findings consistent with limb ischemia. It was discussed at that time of transfer to [facility] for quicker intervention. Patient was noted to have intervention scheduled for 10/11/2020. Upon discussion with the vascular surgeons at [facility] it was decided that no quicker intervention would be obtained by transfer. Patient is to keep follow-up appointment for vascular intervention this . Patient was also noted to be given prescription for oxycodone for help of pain management. Progress of Wound: worsening, more fibrotic and necrotic tissue noted, foot is colder, more red vascular color changes has spread even further up the foot bone exposed to fifth digit Subjective Subjective Patient seen and examined resting comfortably. Patient denies any new pedal complaints. Patient denies any nausea, fever, chills, chest pain, shortness of breath, cough, streaking, purulence, vomiting. Patient relates rest pain in her leg with some improvement noted upon dependency of the limb. There is increase in swelling noted. Patient relates that her oxycodone is barely touching the pain. But it does help her sleep Objective Data Objective Data Vital Signs: Vital Signs Temp Pulse Resp BP 97.6 F L 65 18 143/32 H 10/09/20 09:42 10/09/20 09:42 10/09/20 09:42 10/09/20 09:42 Weight: 149 kg Body Mass Index (BMI) 23.6 Assessment & Plan Assessment/Plan (1) 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 without evidence of necrosis: (2) Non-pressure chronic ulcer of other part of left foot with fat layer exposed: (3) Peripheral arterial occlusive disease: (4) PAD (peripheral artery disease): (5) History of tobacco abuse: (6) Type 2 diabetes mellitus: QUALIFIERS: Diabetes mellitus exterminator termite insulin use: unspecified retirement insulin use status Diabetes mellitus complication status: with circulatory complication Diabetes mellitus complication detail: with peripheral angiopathy with gangrene Qualified Code(s): E11.52 - Type 2 diabetes mellitus with diabetic peripheral angiopathy with gangrene (7) Amputated toe: QUALIFIERS: Laterality: left Qualified Code(s): S98.132A - Complete traumatic amputation of one left lesser toe, initial encounter (8) Ischaemic rest pain of lower extremity: (9) Cellulitis of left foot: PLAN: Patient seen and examined. Wounds are to have signs of worsening with increased redness consistent with poor vascular status, cool toes and foot especially compared to contralateral limb, wounds are fibrotic with some necrotic changes noted. Patient is also having increase in her pain. She is experiencing rest pain. She experiences pain with elevation and some relief with dependence of the extremity. It is noted that she has dependent rubor as well. There is increased erythema and edema. Betadine wet-to-dry daily dressing changes. Discussed with patient our goal at this time is to keep the wound stable and try to prevent them from getting worse while we await further vascular intervention. Discussed with patient at length that her pain and worsening of her wounds is most likely from her poor vascular status. It was decided not to debride ulceration site today due to patient's amount of pain and fear of debridement actually causing worsening of the wounds. Patient has peripheral vascular disease. Patient has been seeing Dr. Nicholson for this. Patient had intervention on 06/12/2020. Since then patient has had some reperfusion pain with swelling that is worse at night. Patient got new scans last week but is yet to receive results. There is plan for further intervention at [facility] in [facility] on 10/11/2020. Patient relates that she has not gotten the results of her scan taken on 09/21/2020. The pain has improved but still present at night. Patient saw Dr. Tenorio on 06/26/2020 and he prescribed gabapentin which patient relates helps some. Patient has recent LEAS prior to intervention with Dr. Nicholson with left monophasic pulses with an JENY of 0.59 from the PT artery and a TBI of 0.12. On the right side the DP and PT are monophasic as well with an JENY of 0.53 on the PT artery and 0.75 to the DP artery and a TBI of 0.3. 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 Patient had vascular duplex ultrasound obtained on 08/29/2020 which demonstrates severe stenosis of the left distal external iliac artery Patient was hospitalized on 07/07/20 for worsening 4th toe ulceration and blood in stool. Patient was noted to have rapid increase in gangrene to 4th digit. Amputation of 4th digit and debridement of 1st and 5th digit was performed 07/08/20. OM was confirmed with PsAg. Patient was discharged on Levaquin every other day due to kidney function she has since finished. Reviewed proper wound care with patient. Discussed with the patient the importance of offloading the sites with wide enough shoe gear if she is to be wearing shoes, proper diet, good blood sugar control. Patient has offloading boot. All questions were answered patient satisfaction. Discussed with the patient all concerning signs and symptoms to watch out for and to contact office if he either presents. Discussed with patient that her foot looks to be worsening as far as her vascular status is concerned. Discussed with patient the importance of following up with Dr. Nicholson in order to get this sorted out. Discussed at this time given her poor vascular status it is unlikely that she will notice much progress in her wounds until she has her intervention with Dr. Nicholson. Discu ssed that our goals at this time are to prevent infection and worsening of the wounds until she is able to get her procedure with Dr. Nicholson to improve her blood flow. Discussed with her how important it is to have proper blood flow in order to obtain healing. Discussed with the patient that her significant smoking history likely played a factor into her poor blood flow. X-ray from 10/05/2020 showed amputation of the fourth digit. There is no other bony changes consistent with osteomyelitis noted to remaining digits at ulceration sites. There is no fractures or soft tissue emphysema noted cultures obtained 10/05/2020 demonstrated Pseudomonas aeruginosa. Patient went to the emergency department [facility] on 10/05/2020 for worsening left leg pain and ulcerations. Patient was given oxycodone which helped somewhat with her pain. Patient had cultures obtained at that time. Patient was started on Levaquin per Dr. Jama. Patient saw Dr. Jama while she was in the emergency department. Patient also had vascular surgeon consulted about her case during her emergency room department is determined that there would be no sooner intervention by a transfer to [facility] than what she already has scheduled for 10/11/2020. Patient is at significant risk for limb loss. Patient is to follow-up in 1 week. This note was generated with [employer]uli dictation software. It may contain incorrect words, spelling, and punctuation that were not noted in checking the note before signing. The problems addressed require a low medical decision making level which includes two or more minor problems, a stable chronic illness, or an acute uncomplicated illness or injury. 20 to 29 minutes was spent on this encounter. This included both face to face and non face to face care, which includes but not limited to time preparing for the visit (which includes but not limited to reviewing medical record, any pertinent paperwork, as well as previous imaging and/or test results), reviewing/obtaining the noted history, performing the noted examination, counseling and providing education to the patient as well as to patient's family and/or patient caregivers per patient request. This also includes ordering any medication(s), test(s), and/or procedure(s) as indicated and as documented in the medical record, interpreting / sharing this information when indicated (and with patient's permission) as documented, communicating with other healthcare providers as needed/as requested, the time documenting information in the medical record, as well as any further care coordination. Physical Exam Const alert and no apparent distress General Appearance: cooperative and comfortable Resp normal respiratory effort Effort and Inspection: able to speak in complete sentences Extremity no calf tenderness General Extremity: edema left lower extremity mild; Negative for clubbing Peripheral Pulses: Yes posterior tibial pulses present left (Nonpalpable) and dorsalis pedis pulses present left (Nonpalpable) Skin General Skin Exam: Negative for ecchymosis, eschar or dermatitis Rashes: no rashes Wounds: wounds noted Wound Narrative: ulcers noted to left first, fifth toes and fourth amputation site No malodor, purulence, streaking, fluctuation, crepitus. Skin is atrophic and hairless. Wounds have a fibrotic base with some signs of necrosis noted. Fifth toe wound noted to have bone exposed. Fourth digit amputation site noted to be near bone. There is increase in fibrotic tissue noted especially to the fourth digit amputation site. The fourth digit amputation site is also noted to be close to the metatarsal head in depth. There is surrounding red color change which is extending up the foot consistent with poor vascular status. This is worsened since last visit and now extends to ankle level. The foot is also noted to be warmer than last week but showing more overall changes due to poor vascular status such as pitting edema +1 2 foot left. Patient is also noted to have toes turn white with even mild elevation with increase in pain. Red color change is more vascular nature not infectious in nature. The toes are cool to the touch. There is decreased capillary refill time noted. Left side skin temperature is cooler than the right side. Neuro Gait (Neuro): antalgic Sensory Exam: extremities light-touch: decreased Motor Exam: strength 5/5 throughout Psych Appearance: appropriate Attitude: calm Debridement Note Debridement Note Post-Debridement Measurements and Additional Note: Post-Debridement Measurements/Treatment - Nurse 1 - General Ulcer Assessment Start: 09/25/20 08:50 Freq: Status: Active Protocol: ESVIN Activity Type Activity Date Activity User E-Sign Co-Sign Detail Recorded Client Recorded Date Recorded By Document 09/25/20 08:50 MW [id number] 09/25/20 09:01 MW Document 10/02/20 09:36 DL [id number] 10/02/20 09:47 DL Edit Result 10/02/20 09:36 DL (1) [id number] 10/02/20 10:32 DL Document 10/02/20 09:48 DL [id number] 10/02/20 09:48 DL Document 10/09/20 09:42 DL [id number] 10/09/20 09:51 DL (1) Pulse Rate (60-100) => 63 Pulse Location => Monitor Blood Pressure (90/60-120/80) => 134/53 H Blood Pressure Mean (mm Hg) => 80 Source => Monitor 09/25/20 10/02/20 10/02/20 08:50 09:36 09:48 - Today's Visit Information Type of service Follow-up Visit (Physician/FLATCAR WHACKER ) Arrival Mode Ambulatory Transfer Assistance None Patient Identification Verified (Name & Yes ) Patient Requires Transmission-Based No Precautions Finger Stick Blood Sugar(mg/dl) (if 123 indicated): Blood Sugar Stated by Patient Height and Weight Body Mass Index (BMI) 23.6 23.6 23.6 BMI Classification Normal Normal Normal Temperature (97.8 F-99.1 F) 98 F Temperature Source Temporal Pulse Rate (60-100) 63 Pulse Location Monitor Respiratory Rate (12-18) 20 H Respiratory rate source Observation Blood Pressure (90/60-120/80) 134/53 H Blood Pressure Mean (mm Hg) 80 Source Monitor Vital Signs Comment C/O Increased pain. L Foot red and warm today. History Since Last Visit- (Skip if this is Patient's initial visit) Have you changed medications since your No last visit? Any new allergies or adverse reactions No Had a fall/change in ADL's that may No increase risk of falls Signs or symptoms of abuse and/or No neglect since last visit Have you been in the hospital since your No last visit? Has dressing in place as prescribed Yes Has compression in place as prescribed N/A Has offloadiing in place as prescribed Yes Experienced any changes in pain level or No management Left Footwear Surgical Shoe with pressure relief insole Right Footwear Pain Scale: 0-10 Numeric Is Patient Pain Free? Yes 10/09/20 09:42 - Today's Visit Information Type of service Follow-up Visit (Physician/FLATCAR WHACKER ) Arrival Mode Ambulatory Transfer Assistance None Patient Identification Verified (Name & Yes ) Patient Requires Transmission-Based No Precautions Finger Stick Blood Sugar(mg/dl) (if indicated): Blood Sugar Height and Weight Body Mass Index (BMI) 23.6 BMI Classification Normal Temperature (97.8 F-99.1 F) 97.6 F L Temperature Source Temporal Pulse Rate (60-100) 65 Pulse Location Monitor Respiratory Rate (12-18) 18 Respiratory rate source Observation Blood Pressure (90/60-120/80) 143/32 H Blood Pressure Mean (mm Hg) 69 Source Monitor Vital Signs Comment History Since Last Visit- (Skip if this is Patient's initial visit) Have you changed medications since your No last visit? Any new allergies or adverse reactions No Had a fall/change in ADL's that may No increase risk of falls Signs or symptoms of abuse and/or No neglect since last visit Have you been in the hospital since your No last visit? Has dressing in place as prescribed Has compression in place as prescribed No Has offloadiing in place as prescribed Yes Experienced any changes in pain level or No management Left Footwear Surgical Shoe with pressure relief insole Right Footwear Regular Shoe Pain Scale: 0-10 Numeric Is Patient Pain Free? Yes - Nurse 1 - General Ulcer Measurement Start: 09/25/20 08:50 Freq: Status: Active Protocol: Activity Type Activity Date Activity User E-Sign Co-Sign Detail Recorded Client Recorded Date Recorded By Document 09/25/20 08:50 MW [id number] 09/25/20 09:01 MW Document 10/02/20 09:36 DL [id number] 10/02/20 09:47 DL Document 10/09/20 09:42 DL [id number] 10/09/20 09:51 DL 09/25/20 10/02/20 10/09/20 08:50 09:36 09:42 Wound Center Nurse 1 #3 4th lateral toe/amp site -Current Size (cm) - Length 2.3 2.6 3 -Current Size (cm) - Width 0.7 0.6 0.6 -Current Size (cm) - Depth 0.1 0.6 0.9 -Total Square Cm 1.61 1.56 1.8 -Photo Taken No No No -Exudate Amt Small Small Medium -Exudate Type Serosanguineous Serosanguineous Serosanguineous -Wound Margin Distinct, Distinct, Distinct, Outline Outline Outline Attached Attached Attached -Granulation Amt None Present (0 None Present (0 None Present (0 %) %) %) -Necrosis Amt Large (67-100%) Large (67-100%) Large (67-100%) -Necrotic Tissue Type Adherent Slough Adherent Slough -Structure Exposed N/A Tendon,N/A None/Limited to Skin Breakdown -Texture (Dot-wound Skin Appearance) Scarring Scarring Localized Edema ,Scarring -Moisture (Dot-wound Skin Appearance) Maceration No Abnormality No Abnormality -Color (Dot-wound Skin Appearance) Erythema,Rubor Ecchymosis, Erythema Rubor -Temperature (Dot-wound Skin No Abnormality No Abnormality No Abnormality Appearance) (Pt Warm) (Pt Warm) (Pt Warm) -Tenderness on Palpation (Dot-wound No Yes No Skin Appearance) -Ulcer Cleansing Wound Cleanser Wound Cleanser Wound Cleanser -Foul Odor after Cleansing No No No -Anesthetic Used 4% Lidocaine 5% Lidocaine 4% Lidocaine Solution Gel Solution,5% Lidocaine Gel #2 L 5th toe -Current Size (cm) - Length 0.8 1 1 -Current Size (cm) - Width 0.7 0.7 0.9 -Current Size (cm) - Depth 0.2 0.2 0.2 -Total Square Cm 0.56 0.7 0.9 -Photo Taken No No No -Exudate Amt Small None Present Small -Exudate Type Serosanguineous -Wound Margin Distinct, Distinct, Distinct, Outline Outline Outline Attached Attached Attached -Granulation Amt None Present (0 None Present (0 %) %) -Necrosis Amt Large (67-100%) Large (67-100%) Large (67-100%) -Necrotic Tissue Type Adherent Slough Adherent Slough Adherent Slough -Structure Exposed N/A N/A N/A -Texture (Dot-wound Skin Appearance) Scarring Scarring Localized Edema ,Scarring -Moisture (Dot-wound Skin Appearance) Dry/Scaly No Abnormality -Color (Dot-wound Skin Appearance) Erythema,Rubor No Abnormality, No Abnormality, Rubor Erythema -Temperature (Dot-wound Skin No Abnormality No Abnormality No Abnormality Appearance) (Pt Warm) (Pt Warm) (Pt Warm) -Tenderness on Palpation (Dot-wound No Yes No Skin Appearance) -Ulcer Cleansing Wound Cleanser Wound Cleanser -Foul Odor after Cleansing No No No -Anesthetic Used 4% Lidocaine 5% Lidocaine 4% Lidocaine Solution Gel Solution,5% Lidocaine Gel #1 L Grt Toe -Current Size (cm) - Length 0.8 0.9 0.9 -Current Size (cm) - Width 0.5 0.5 0.7 -Current Size (cm) - Depth 0.1 0.2 0.1 -Total Square Cm 0.40 0.45 0.63 -Photo Taken No No No -Exudate Amt Small None Present Small -Exudate Type Serosanguineous Serosanguineous -Wound Margin Distinct, Distinct, Distinct, Outline Outline Outline Attached Attached Attached -Granulation Amt None Present (0 None Present (0 None Present (0 %) %) %) -Necrosis Amt Large (67-100%) Large (67-100%) Large (67-100%) -Necrotic Tissue Type Adherent Slough Adherent Slough Adherent Slough -Structure Exposed N/A N/A N/A -Texture (Dot-wound Skin Appearance) Scarring Scarring Localized Edema ,Scarring -Moisture (Dot-wound Skin Appearance) Dry/Scaly No Abnormality Assessed -Color (Dot-wound Skin Appearance) Erythema Assessed Erythema -Temperature (Dot-wound Skin No Abnormality No Abnormality No Abnormality Appearance) (Pt Warm) (Pt Warm) (Pt Warm) -Tenderness on Palpation (Dot-wound No Yes No Skin Appearance) -Ulcer Cleansing Wound Cleanser Wound Cleanser Wound Cleanser -Foul Odor after Cleansing No No No -Anesthetic Used 4% Lidocaine 5% Lidocaine 4% Lidocaine Solution Gel Solution,5% Lidocaine Gel WC - Nurse 2 - General Ulcer CM Notes Start: 09/25/20 08:50 Freq: Status: Active Protocol: Activity Type Activity Date Activity User E-Sign Co-Sign Detail Recorded Client Recorded Date Recorded By Document 09/25/20 09:13 [id number] 09/25/20 09:30 Document 10/02/20 10:19 [id number] 10/02/20 10:29 Document 10/09/20 09:57 [id number] 10/09/20 10:15 JF 09/25/20 10/02/20 10/09/20 09:13 10:19 09:57 Wound Center Nurse 2 #3 4th lateral toe/amp site -Time : 10:20 -Correct Patient Yes Yes No -Correct Side, Site, Position Yes Yes No -Correct Procedure Yes Yes No -Procedure Performed Yes Yes No -Type of Procedure Debridement Debridement -Clinical Debridement Subcutaneous Subcutaneous -Tissue Removed Subcutaneous Subcutaneous -Post Debridement (cm) - Length 2.4 2.5 -Post Debridement (cm) - Width 0.9 1 -Post Debridement (cm) - Depth 0.4 0.7 -Total Square (Post) (cm) 2.16 2.5 -Area of Debridement (cm) - Length 2.4 2.5 -Area of Debridement (cm) - Width 0.9 1 -Total Square (Area) (cm) 2.16 2.5 -Tunneling No No -Undermining/Tunneling No No -Circular Undermining No No -Wound/Ulcer Outcome Not Healed Not Healed -Ulcer Cleansing Rinsed/ Rinsed/ Irrigated with Irrigated with Saline Saline -Foul Odor after Cleansing Yes, Due to No Product Use -Bioengineered Tissue No No -Bleeding Controlled with Pressure Pressure -Offloading Yes Yes -Type of Offloading Surgical Shoe Surgical Shoe -Treatment Response Procedure Procedure Tolerated Well Tolerated Well -Debridement - Subq, 1st 20sq cm Yes Yes #2 L 5th toe -Time : 10:21 -Correct Patient Yes Yes No -Correct Side, Site, Position Yes Yes No -Correct Procedure Yes Yes No -Procedure Performed Yes Yes No -Type of Procedure Debridement Debridement -Clinical Debridement Subcutaneous Subcutaneous -Tissue Removed Subcutaneous Subcutaneous -Post Debridement (cm) - Length 1 1.7 -Post Debridement (cm) - Width 0.7 0.3 -Post Debridement (cm) - Depth 0.3 0.3 -Total Square (Post) (cm) 0.7 0.51 -Area of Debridement (cm) - Length 1 1.7 -Area of Debridement (cm) - Width 0.7 0.3 -Total Square (Area) (cm) 0.7 0.51 -Tunneling No No -Undermining/Tunneling No No -Circular Undermining No No -Wound/Ulcer Outcome Not Healed Not Healed -Ulcer Cleansing Rinsed/ Rinsed/ Irrigated with Irrigated with Saline Saline -Foul Odor after Cleansing No No -Bioengineered Tissue No No -Bleeding Controlled with Pressure Pressure -Offloading Yes Yes -Type of Offloading Surgical Shoe Surgical Shoe -Treatment Response Procedure Procedure Tolerated Well Tolerated Well -Debridement - Subq, 1st 20sq cm No No #1 L Grt Toe -Time 09:28 10:22 -Correct Patient Yes Yes No -Correct Side, Site, Position Yes Yes No -Correct Procedure Yes Yes No -Procedure Performed Yes Yes No -Type of Procedure Debridement Debridement -Clinical Debridement Subcutaneous Subcutaneous -Tissue Removed Subcutaneous Subcutaneous -Post Debridement (cm) - Length 1 0.8 -Post Debridement (cm) - Width 0.5 0.5 -Post Debridement (cm) - Depth 0.2 0.2 -Total Square (Post) (cm) 0.5 0.40 -Area of Debridement (cm) - Length 1 0.8 -Area of Debridement (cm) - Width 0.5 0.5 -Total Square (Area) (cm) 0.5 . -Tunneling No No -Undermining/Tunneling No No -Circular Undermining No No -Wound/Ulcer Outcome Not Healed Not Healed -Ulcer Cleansing Rinsed/ Rinsed/ Irrigated with Irrigated with Saline Saline -Foul Odor after Cleansing No No -Bioengineered Tissue No No -Bleeding Controlled with Pressure Pressure -Offloading Yes -Type of Offloading Surgical Shoe Surgical Shoe -Treatment Response Procedure Procedure Tolerated Well Tolerated Well -Debridement - Subq, 1st 20sq cm No No Pain Scale: 0-10 Numeric Is Patient Pain Free? Yes Yes WC - Nurse 3 - General Ulcer D/C NN Start: 09/25/20 08:50 Freq: Status: Active Protocol: Activity Type Activity Date Activity User E-Sign Co-Sign Detail Recorded Client Recorded Date Recorded By Document 09/25/20 09:46 DL [id number] 09/25/20 09:47 DL Document 10/02/20 11:10 DL [id number] 10/02/20 11:11 DL Document 10/09/20 10:29 DL [id number] 10/09/20 10:31 DL 09/25/20 10/02/20 10/09/20 09:46 11:10 10:29 Wound Care Nurse 3 #3 4th lateral toe/amp site -Ulcer Cleansing Wound Cleanser Rinsed/ Irrigated with Saline -Foul Odor after Cleansing No No No -Other Dressing betadine betadine betadine -Primary Dressing Covered/Secured with Dry Gauze & Dry Gauze & Dry Gauze & Roll Gauze, Roll Gauze, Roll Gauze, Secured with Secured with Secured with Tape Tape Tape #2 L 5th toe -Ulcer Cleansing Wound Cleanser Rinsed/ Irrigated with Saline -Foul Odor after Cleansing No No No -Other Dressing betadine betadine betadine -Primary Dressing Covered/Secured with Dry Gauze & Dry Gauze & Dry Gauze & Roll Gauze, Roll Gauze, Roll Gauze, Secured with Secured with Secured with Tape Tape Tape #1 L Grt Toe -Ulcer Cleansing Wound Cleanser Rinsed/ Irrigated with Saline -Foul Odor after Cleansing No No No -Other Dressing betadine betadine betadine -Primary Dressing Covered/Secured with Dry Gauze & Dry Gauze & Dry Gauze & Roll Gauze, Roll Gauze, Roll Gauze, Secured with Secured with Secured with Tape Tape Tape Treatment Response Procedure Procedure Procedure Tolerated Well Tolerated Well Tolerated Well Pain Scale: 0-10 Numeric Is Patient Pain Free? Yes Yes Yes WC - Visit Discharge Discharge Condition Stable Stable Ambulatory Status Ambulatory,Cane Ambulatory Ambulatory, Walker Transportation Private Auto Private Auto Private Auto Accompanied by family Facility Type Home Health Home Health Home Health Orders Sent Yes Yes Wound debrided: First, fourth amputation site, fifth digit Laterality: Left No debridement was completed: No debridement was completed today (Due to his increasing poor vascular status and fear for worsening of wounds)
[2020-10-16 09:26] VITALS: RESP 18; TEMP 36.4; BMI 23.6
--- NOTE | 2020-10-16 12:39 | PN.PCM_ITS ---
History of Present Illness Date of Service: 10/16/20 Chief Complaint: Left foot first, fifth digit ulceration Left fourth digit amputation site ulceration PAD History of Wound: Patient is referral from [facility]ud[facility]. 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 Patient has a history of smoking. Patient is diabetic as well but states is very well controlled averaging blood sugar in the low 100s. Patient denies any trauma or rubbing to start the wounds. Patient had intervention done by Dr. Nicholson on 06/12/2020. Since then patient has complaints of post procedure reperfusion pain. She states it is worse at night and she has some relief with dangling of the foot. She has had some increase in redness and swelling noted as well. Patient saw Dr. Tenorio June 26, 2020 and was started on 100mg gabapentin TID. She has noticed some improvement in her pain. 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 Patient was hospitalized 07/07/20 for worsening toe wound and blood in stool. 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 Amputation of 4th digit with debridement of 1st and 5th digit ulcerations was performed 07/08/20. 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 Patient was discharged on levaquin every other day due to impairment of her kidneys. Patient was also discharged on oxycodone. Patient relates improvement of her pain since surgery. Patient relates she is no longer taking strong pain meds. Patient continues at the wound care center for continued care ulcerations Patient had follow-up scan with Dr. Nicholson and she relates that Dr. Nicholson would like to further intervention at [facility] in [place], [place]. Patient had further intervention with Dr. Nicholson on October 11, 2020. Patient relates having to be transferred to [facility] for this. This was due to staffing issues. Patient is not sure exactly what was done. We will try to obtain these notes. Patient is noted to have improvement in her coloring and pain. Progress of Wound: Improved, more normal pink color to foot. Digits not warm. There is post procedural edema noted. Pulses are able to be felt. Subjective Subjective Patient seen and examined resting comfortably. Patient denies any new pedal complaints. Patient denies any nausea, fever, chills, chest pain, shortness of breath, cough, streaking, purulence, vomiting. Patient relates that since having the procedure she has had some extra swelling noted and some pain in her thigh. She does admit that her foot does not feel as cold anymore. Objective Data Objective Data Vital Signs: Vital Signs Temp Pulse Resp BP 97.5 F L 65 18 143/32 H 10/16/20 09:26 10/09/20 09:42 10/16/20 09:26 10/09/20 09:42 Oxygen Delivery Method Room Air Weight: 149 kg Body Mass Index (BMI) 23.6 Physical Exam Const alert and no apparent distress General Appearance: cooperative and comfortable Resp normal respiratory effort Effort and Inspection: able to speak in complete sentences Extremity no calf tenderness General Extremity: edema left lower extremity mild; Negative for clubbing Peripheral Pulses: Yes posterior tibial pulses present left 1+ and dorsalis pedis pulses present left 1+ Skin General Skin Exam: Negative for ecchymosis, eschar or dermatitis Rashes: no rashes Wounds: wounds noted Wound Narrative: ulcers noted to left first, fifth toes and fourth amputation site No malodor, purulence, streaking, fluctuation, crepitus. Skin is atrophic and hairless. Wounds have a fibrotic base with some signs of necrosis noted to fifth toe. Fifth toe wound noted to have bone exposed. Fourth digit amputation site noted to be near bone. There is increase in fibrotic tissue noted especially to the fourth digit amputation site. The fourth digit amputation site is also noted to be close to the metatarsal head in depth. Improvement noted to patient's coloration to lower extremity. More normal healthy pink coloration with normal capillary fill time noted to remaining digits. Pulses were able to be felt. There is postprocedural edema noted. No rmal skin temperature regained. There is a new wound noted to posterior plantar heel. This is of a skin tear in nature. There is no signs of infection nor is it deep. It goes down to the level of dermis. Healthy bleeding encounter with debridement of the fourth amputation site and hallux ulcerations Neuro Gait (Neuro): antalgic Sensory Exam: extremities light-touch: decreased Motor Exam: strength 5/5 throughout Psych Appearance: appropriate Attitude: calm Debridement Note Debridement Note Post-Debridement Measurements and Additional Note: Post-Debridement Measurements/Treatment WC - Nurse 1 - General Ulcer Assessment Start: 09/25/20 08:50 Freq: Status: Active Protocol: WC.LOWEXT Activity Type Activity Date Activity User E-Sign Co-Sign Detail Recorded Client Recorded Date Recorded By Document 09/25/20 08:50 MW [id number] 09/25/20 09:01 MW Document 10/02/20 09:36 DL [id number] 10/02/20 09:47 DL Edit Result 10/02/20 09:36 DL (1) [id number] 10/02/20 10:32 DL Document 10/02/20 09:48 DL [id number] 10/02/20 09:48 DL Document 10/09/20 09:42 DL [id number] 10/09/20 09:51 DL Document 10/16/20 09:26 BMF Desktop 10/16/20 09:43 BMF (1) Pulse Rate (60-100) => 63 Pulse Location => Monitor Blood Pressure (90/60-120/80) => 134/53 H Blood Pressure Mean (mm Hg) => 80 Source => Monitor 09/25/20 10/02/20 10/02/20 08:50 09:36 09:48 - Today's Visit Information Type of service Follow-up Visit (Physician/ASSEMBLER CHASSIS ) Arrival Mode Ambulatory Transfer Assistance None Accompanied by Patient Identification Verified (Name & Yes ) Patient Requires Transmission-Based No Precautions Finger Stick Blood Sugar(mg/dl) (if 123 indicated): Blood Sugar Stated by Patient Height and Weight Body Mass Index (BMI) 23.6 23.6 23.6 BMI Classification Normal Normal Normal Temperature (97.8 F-99.1 F) 98 F Temperature Source Temporal Pulse Rate (60-100) 63 Pulse Location Monitor Respiratory Rate (12-18) 20 H Respiratory rate source Observation Oxygen Delivery Method Blood Pressure (90/60-120/80) 134/53 H Blood Pressure Mean (mm Hg) 80 Source Monitor Position Blood Pressure Location Vital Signs Comment C/O Increased pain. L Foot red and warm today. History Since Last Visit- (Skip if this is Patient's initial visit) Have you changed medications since your No last visit? Any new allergies or adverse reactions No Had a fall/change in ADL's that may No increase risk of falls Signs or symptoms of abuse and/or No neglect since last visit Have you been in the hospital since your No last visit? Has dressing in place as prescribed Yes Has compression in place as prescribed N/A Has offloadiing in place as prescribed Yes Experienced any changes in pain level or No management Left Footwear Surgical Shoe with pressure relief insole Right Footwear Pain Scale: 0-10 Numeric Is Patient Pain Free? Yes 10/09/20 10/16/20 09:42 09:26 - Today's Visit Information Type of service Follow-up Visit Follow-up Visit (Physician/ASSEMBLER CHASSIS (Physician/ASSEMBLER CHASSIS ) ) Arrival Mode Ambulatory Ambulatory,Cane Transfer Assistance None None Accompanied by daughter Patient Identification Verified (Name & Yes Yes ) Patient Requires Transmission-Based No No Precautions Finger Stick Blood Sugar(mg/dl) (if indicated): Blood Sugar Height and Weight Body Mass Index (BMI) 23.6 23.6 BMI Classification Normal Normal Temperature (97.8 F-99.1 F) 97.6 F L 97.5 F L Temperature Source Temporal Temporal Pulse Rate (60-100) 65 Pulse Location Monitor Monitor Respiratory Rate (12-18) 18 18 Respiratory rate source Observation Observation Oxygen Delivery Method Room Air Blood Pressure (90/60-120/80) 143/32 H Blood Pressure Mean (mm Hg) 69 Source Monitor Monitor Position Sitting Blood Pressure Location Right Arm Vital Signs Comment History Since Last Visit- (Skip if this is Patient's initial visit) Have you changed medications since your No No last visit? Any new allergies or adverse reactions No No Had a fall/change in ADL's that may No No increase risk of falls Signs or symptoms of abuse and/or No No neglect since last visit Have you been in the hospital since your No No last visit? Has dressing in place as prescribed Yes Has compression in place as prescribed No N/A Has offloadiing in place as prescribed Yes Yes Experienced any changes in pain level or No No management Left Footwear Surgical Shoe Surgical Shoe with pressure with pressure relief insole relief insole Right Footwear Regular Shoe Regular Shoe Pain Scale: 0-10 Numeric Is Patient Pain Free? Yes Yes - Nurse 1 - General Ulcer Measurement Start: 09/25/20 08:50 Freq: Status: Active Protocol: Activity Type Activity Date Activity User E-Sign Co-Sign Detail Recorded Client Recorded Date Recorded By Document 09/25/20 08:50 MW [id number] 05/04/21 09:01 MW Document 10/02/20 09:36 DL [id number] 10/02/20 09:47 DL Document 10/09/20 09:42 DL [id number] 10/09/20 09:51 DL Document 10/16/20 09:26 [facility] Desktop 10/16/20 09:43 BMF 09/25/20 10/02/20 10/09/20 08:50 09:36 09:42 Wound Center Nurse 1 #5- L HEEL FISSURE -Combined with other wound -Current Size (cm) - Length -Current Size (cm) - Width -Current Size (cm) - Depth -Total Square Cm -Epithelialization -Tunneling -Undermining/Tunneling -Circular Undermining -Exudate Amt -Wound Margin -Granulation Amt -Slough/Fibrin -Necrosis Amt -Necrotic Tissue Type -Texture (Dot-wound Skin Appearance) -Moisture (Dot-wound Skin Appearance) -Color (Dot-wound Skin Appearance) -Temperature (Dot-wound Skin Appearance) -Tenderness on Palpation (Dot-wound Skin Appearance) -Ulcer Cleansing -Foul Odor after Cleansing -Anesthetic Used #3 4th lateral toe/amp site -Combined with other wound -Current Size (cm) - Length 2.3 2.6 3 -Current Size (cm) - Width 0.7 0.6 0.6 -Current Size (cm) - Depth 0.1 0.6 0.9 -Total Square Cm 1.61 1.56 1.8 -Photo Taken No No No -Epithelialization -Tunneling -Undermining/Tunneling -Circular Undermining -Exudate Amt Small Small Medium -Exudate Type Serosanguineous Serosanguineous Serosanguineous -Wound Margin Distinct, Distinct, Distinct, Outline Outline Outline Attached Attached Attached -Granulation Amt None Present (0 None Present (0 None Present (0 %) %) %) -Slough/Fibrin -Necrosis Amt Large (67-100%) Large (67-100%) Large (67-100%) -Necrotic Tissue Type Adherent Slough Adherent Slough -Structure Exposed N/A Tendon,N/A None/Limited to Skin Breakdown -Texture (Dot-wound Skin Appearance) Scarring Scarring Localized Edema ,Scarring -Moisture (Dot-wound Skin Appearance) Maceration No Abnormality No Abnormality -Color (Dot-wound Skin Appearance) Erythema,Rubor Ecchymosis, Erythema Rubor -Temperature (Dot-wound Skin No Abnormality No Abnormality No Abnormality Appearance) (Pt Warm) (Pt Warm) (Pt Warm) -Tenderness on Palpation (Dot-wound No Yes No Skin Appearance) -Ulcer Cleansing Wound Cleanser Wound Cleanser Wound Cleanser -Foul Odor after Cleansing No No No -Anesthetic Used 4% Lidocaine 5% Lidocaine 4% Lidocaine Solution Gel Solution,5% Lidocaine Gel #2 L 5th toe -Combined with other wound -Current Size (cm) - Length 0.8 1 1 -Current Size (cm) - Width 0.7 0.7 0.9 -Current Size (cm) - Depth 0.2 0.2 0.2 -Total Square Cm 0.56 0.7 0.9 -Photo Taken No No No -Epithelialization -Tunneling -Undermining/Tunneling -Circular Undermining -Exudate Amt Small None Present Small -Exudate Type Serosanguineous -Wound Margin Distinct, Distinct, Distinct, Outline Outline Outline Attached Attached Attached -Granulation Amt None Present (0 None Present (0 %) %) -Slough/Fibrin -Necrosis Amt Large (67-100%) Large (67-100%) Large (67-100%) -Necrotic Tissue Type Adherent Slough Adherent Slough Adherent Slough -Structure Exposed N/A N/A N/A -Texture (Dot-wound Skin Appearance) Scarring Scarring Localized Edema ,Scarring -Moisture (Dot-wound Skin Appearance) Dry/Scaly No Abnormality -Color (Dot-wound Skin Appearance) Erythema,Rubor No Abnormality, No Abnormality, Rubor Erythema -Temperature (Dot-wound Skin No Abnormality No Abnormality No Abnormality Appearance) (Pt Warm) (Pt Warm) (Pt Warm) -Tenderness on Palpation (Dot-wound No Yes No Skin Appearance) -Ulcer Cleansing Wound Cleanser Wound Cleanser -Foul Odor after Cleansing No No No -Anesthetic Used 4% Lidocaine 5% Lidocaine 4% Lidocaine Solution Gel Solution,5% Lidocaine Gel #1 L Grt Toe -Combined with other wound -Current Size (cm) - Length 0.8 0.9 0.9 -Current Size (cm) - Width 0.5 0.5 0.7 -Current Size (cm) - Depth 0.1 0.2 0.1 -Total Square Cm 0.40 0.45 0.63 -Photo Taken No No No -Epithelialization -Tunneling -Undermining/Tunneling -Circular Undermining -Exudate Amt Small None Present Small -Exudate Type Serosanguineous Serosanguineous -Wound Margin Distinct, Distinct, Distinct, Outline Outline Outline Attached Attached Attached -Granulation Amt None Present (0 None Present (0 None Present (0 %) %) %) -Slough/Fibrin -Necrosis Amt Large (67-100%) Large (67-100%) Large (67-100%) -Necrotic Tissue Type Adherent Slough Adherent Slough Adherent Slough -Structure Exposed N/A N/A N/A -Texture (Dot-wound Skin Appearance) Scarring Scarring Localized Edema ,Scarring -Moisture (Dot-wound Skin Appearance) Dry/Scaly No Abnormality Assessed -Color (Dot-wound Skin Appearance) Erythema Assessed Erythema -Temperature (Dot-wound Skin No Abnormality No Abnormality No Abnormality Appearance) (Pt Warm) (Pt Warm) (Pt Warm) -Tenderness on Palpation (Dot-wound No Yes No Skin Appearance) -Ulcer Cleansing Wound Cleanser Wound Cleanser Wound Cleanser -Foul Odor after Cleansing No No No -Anesthetic Used 4% Lidocaine 5% Lidocaine 4% Lidocaine Solution Gel Solution,5% Lidocaine Gel 10/16/20 09:26 Wound Center Nurse 1 #5- L HEEL FISSURE -Combined with other wound No -Current Size (cm) - Length 2.5 -Current Size (cm) - Width 0.1 -Current Size (cm) - Depth 0.1 -Total Square Cm 0.25 -Epithelialization None Present -Tunneling No -Undermining/Tunneling No -Circular Undermining No -Exudate Amt None Present -Wound Margin Distinct, Outline Attached -Granulation Amt None Present (0 %) -Slough/Fibrin Yes -Necrosis Amt Large (67-100%) -Necrotic Tissue Type Adherent Slough -Texture (Dot-wound Skin Appearance) Assessed, Scarring -Moisture (Dot-wound Skin Appearance) Assessed -Color (Dot-wound Skin Appearance) Assessed, Erythema -Temperature (Dot-wound Skin No Abnormality Appearance) (Pt Warm) -Tenderness on Palpation (Dot-wound Yes Skin Appearance) -Ulcer Cleansing Rinsed/ Irrigated with Saline -Foul Odor after Cleansing No -Anesthetic Used 5% Lidocaine Gel #3 4th lateral toe/amp site -Combined with other wound No -Current Size (cm) - Length 3 -Current Size (cm) - Width 1.2 -Current Size (cm) - Depth 0.3 -Total Square Cm 3.6 -Photo Taken No -Epithelialization None Present -Tunneling No -Undermining/Tunneling No -Circular Undermining No -Exudate Amt Medium -Exudate Type Serous -Wound Margin Distinct, Outline Attached -Granulation Amt None Present (0 %) -Slough/Fibrin Yes -Necrosis Amt Large (67-100%) -Necrotic Tissue Type Adherent Slough -Structure Exposed -Texture (Dot-wound Skin Appearance) Assessed, Scarring -Moisture (Dot-wound Skin Appearance) Assessed -Color (Dot-wound Skin Appearance) Assessed -Temperature (Dot-wound Skin No Abnormality Appearance) (Pt Warm) -Tenderness on Palpation (Dot-wound No Skin Appearance) -Ulcer Cleansing Rinsed/ Irrigated with Saline -Foul Odor after Cleansing No -Anesthetic Used 5% Lidocaine Gel #2 L 5th toe -Combined with other wound No -Current Size (cm) - Length 1.1 -Current Size (cm) - Width 0.9 -Current Size (cm) - Depth 0.3 -Total Square Cm 0.99 -Photo Taken No -Epithelialization None Present -Tunneling No -Undermining/Tunneling No -Circular Undermining No -Exudate Amt Small -Exudate Type Serous -Wound Margin Distinct, Outline Attached -Granulation Amt None Present (0 %) -Slough/Fibrin Yes -Necrosis Amt Large (67-100%) -Necrotic Tissue Type Adherent Slough -Structure Exposed -Texture (Dot-wound Skin Appearance) Assessed, Scarring -Moisture (Dot-wound Skin Appearance) Assessed -Color (Dot-wound Skin Appearance) Assessed, Erythema -Temperature (Dot-wound Skin No Abnormality Appearance) (Pt Warm) -Tenderness on Palpation (Dot-wound Yes Skin Appearance) -Ulcer Cleansing Rinsed/ Irrigated with Saline -Foul Odor after Cleansing No -Anesthetic Used 5% Lidocaine Gel #1 L Grt Toe -Combined with other wound No -Current Size (cm) - Length 1.1 -Current Size (cm) - Width 0.7 -Current Size (cm) - Depth 0.2 -Total Square Cm 0.77 -Photo Taken No -Epithelialization None Present -Tunneling No -Undermining/Tunneling No -Circular Undermining No -Exudate Amt Small -Exudate Type Serous -Wound Margin Distinct, Outline Attached -Granulation Amt None Present (0 %) -Slough/Fibrin Yes -Necrosis Amt Large (67-100%) -Necrotic Tissue Type Adherent Slough -Structure Exposed -Texture (Dot-wound Skin Appearance) Assessed, Scarring -Moisture (Dot-wound Skin Appearance) Assessed -Color (Dot-wound Skin Appearance) Assessed -Temperature (Dot-wound Skin No Abnormality Appearance) (Pt Warm) -Tenderness on Palpation (Dot-wound No Skin Appearance) -Ulcer Cleansing Rinsed/ Irrigated with Saline -Foul Odor after Cleansing No -Anesthetic Used 5% Lidocaine Gel WC - Nurse 2 - General Ulcer CM Notes Start: 09/25/20 08:50 Freq: Status: Active Protocol: Activity Type Activity Date Activity User E-Sign Co-Sign Detail Recorded Client Recorded Date Recorded By Document 09/25/20 09:13 [id number] 09/25/20 09:30 Document 10/02/20 10:19 [id number] 10/02/20 10:29 Document 10/09/20 09:57 [id number] 10/09/20 10:15 Document 10/16/20 10:13 [id number] 10/16/20 10:20 09/25/20 10/02/20 10/09/20 09:13 10:19 09:57 Wound Center Nurse 2 #5- L HEEL FISSURE -Correct Patient -Correct Side, Site, Position -Correct Procedure -Procedure Performed -Wound/Ulcer Outcome -Debridement - Subq, 1st 20sq cm #3 4th lateral toe/amp site -Time 09:26 10:20 -Correct Patient Yes Yes No -Correct Side, Site, Position Yes Yes No -Correct Procedure Yes Yes No -Procedure Performed Yes Yes No -Type of Procedure Debridement Debridement -Clinical Debridement Subcutaneous Subcutaneous -Tissue Removed Subcutaneous Subcutaneous -Post Debridement (cm) - Length 2.4 2.5 -Post Debridement (cm) - Width 0.9 1 -Post Debridement (cm) - Depth 0.4 0.7 -Total Square (Post) (cm) 2.16 2.5 -Area of Debridement (cm) - Length 2.4 2.5 -Area of Debridement (cm) - Width 0.9 1 -Total Square (Area) (cm) 2.16 2.5 -Tunneling No No -Undermining/Tunneling No No -Circular Undermining No No -Wound/Ulcer Outcome Not Healed Not Healed -Ulcer Cleansing Rinsed/ Rinsed/ Irrigated with Irrigated with Saline Saline -Foul Odor after Cleansing Yes, Due to No Product Use -Bioengineered Tissue No No -Bleeding Controlled with Pressure Pressure -Offloading Yes Yes -Type of Offloading Surgical Shoe Surgical Shoe -Treatment Response Procedure Procedure Tolerated Well Tolerated Well -Debridement - Subq, 1st 20sq cm Yes Yes #2 L 5th toe -Time 09: 10:21 -Correct Patient Yes Yes No -Correct Side, Site, Position Yes Yes No -Correct Procedure Yes Yes No -Procedure Performed Yes Yes No -Type of Procedure Debridement Debridement -Clinical Debridement Subcutaneous Subcutaneous -Tissue Removed Subcutaneous Subcutaneous -Post Debridement (cm) - Length 1 1.7 -Post Debridement (cm) - Width 0.7 0.3 -Post Debridement (cm) - Depth 0.3 0.3 -Total Square (Post) (cm) 0.7 0.51 -Area of Debridement (cm) - Length 1 1.7 -Area of Debridement (cm) - Width 0.7 0.3 -Total Square (Area) (cm) 0.7 0.51 -Tunneling No No -Undermining/Tunneling No No -Circular Undermining No No -Wound/Ulcer Outcome Not Healed Not Healed -Ulcer Cleansing Rinsed/ Rinsed/ Irrigated with Irrigated with Saline Saline -Foul Odor after Cleansing No No -Bioengineered Tissue No No -Bleeding Controlled with Pressure Pressure -Offloading Yes Yes -Type of Offloading Surgical Shoe Surgical Shoe -Treatment Response Procedure Procedure Tolerated Well Tolerated Well -Debridement - Subq, 1st 20sq cm No No #1 L Grt Toe -Time 09:28 10:22 -Correct Patient Yes Yes No -Correct Side, Site, Position Yes Yes No -Correct Procedure Yes Yes No -Procedure Performed Yes Yes No -Type of Procedure Debridement Debridement -Clinical Debridement Subcutaneous Subcutaneous -Tissue Removed Subcutaneous Subcutaneous -Post Debridement (cm) - Length 1 0.8 -Post Debridement (cm) - Width 0.5 0.5 -Post Debridement (cm) - Depth 0.2 0.2 -Total Square (Post) (cm) 0.5 0.40 -Area of Debridement (cm) - Length 1 0.8 -Area of Debridement (cm) - Width 0.5 0.5 -Total Square (Area) (cm) 0.5 . -Tunneling No No -Undermining/Tunneling No No -Circular Undermining No No -Wound/Ulcer Outcome Not Healed Not Healed -Ulcer Cleansing Rinsed/ Rinsed/ Irrigated with Irrigated with Saline Saline -Foul Odor after Cleansing No No -Bioengineered Tissue No No -Bleeding Controlled with Pressure Pressure -Offloading Yes -Type of Offloading Surgical Shoe Surgical Shoe -Treatment Response Procedure Procedure Tolerated Well Tolerated Well -Debridement - Subq, 1st 20sq cm No No Pain Scale: 0-10 Numeric Is Patient Pain Free? Yes Yes 10/16/20 10:13 Wound Center Nurse 2 #5- L HEEL FISSURE -Correct Patient No -Correct Side, Site, Position No -Correct Procedure No -Procedure Performed No -Wound/Ulcer Outcome Not Healed -Debridement - Subq, 1st 20sq cm No #3 4th lateral toe/amp site -Time 10:14 -Correct Patient Yes -Correct Side, Site, Position Yes -Correct Procedure Yes -Procedure Performed Yes -Type of Procedure Debridement -Clinical Debridement Subcutaneous -Tissue Removed Subcutaneous -Post Debridement (cm) - Length 2.9 -Post Debridement (cm) - Width 1.2 -Post Debridement (cm) - Depth 0.5 -Total Square (Post) (cm) 3.48 -Area of Debridement (cm) - Length 2.9 -Area of Debridement (cm) - Width 1.2 -Total Square (Area) (cm) 3.48 -Tunneling No -Undermining/Tunneling No -Circular Undermining No -Wound/Ulcer Outcome Not Healed -Ulcer Cleansing Rinsed/ Irrigated with Saline -Foul Odor after Cleansing No -Bioengineered Tissue No -Bleeding Controlled with Pressure -Offloading Yes -Type of Offloading Surgical Shoe -Treatment Response Procedure Tolerated Well -Debridement - Subq, 1st 20sq cm Yes #2 L 5th toe -Time 10:15 -Correct Patient Yes -Correct Side, Site, Position Yes -Correct Procedure Yes -Procedure Performed Yes -Type of Procedure Debridement -Clinical Debridement Subcutaneous -Tissue Removed Subcutaneous -Post Debridement (cm) - Length 1.4 -Post Debridement (cm) - Width 1.3 -Post Debridement (cm) - Depth 0.2 -Total Square (Post) (cm) 1.82 -Area of Debridement (cm) - Length 1.4 -Area of Debridement (cm) - Width 1.3 -Total Square (Area) (cm) 1.82 -Tunneling No -Undermining/Tunneling No -Circular Undermining No -Wound/Ulcer Outcome Not Healed -Ulcer Cleansing Rinsed/ Irrigated with Saline -Foul Odor after Cleansing No -Bioengineered Tissue No -Bleeding Controlled with Pressure -Offloading Yes -Type of Offloading Surgical Shoe -Treatment Response Procedure Tolerated Well -Debridement - Subq, 1st 20sq cm No #1 L Grt Toe -Time 10:16 -Correct Patient Yes -Correct Side, Site, Position Yes -Correct Procedure Yes -Procedure Performed Yes -Type of Procedure Debridement -Clinical Debridement Subcutaneous -Tissue Removed Subcutaneous -Post Debridement (cm) - Length 0.9 -Post Debridement (cm) - Width 0.7 -Post Debridement (cm) - Depth 0.2 -Total Square (Post) (cm) 0.63 -Area of Debridement (cm) - Length 0.9 -Area of Debridement (cm) - Width 0.7 -Total Square (Area) (cm) 0.63 -Tunneling No -Undermining/Tunneling No -Circular Undermining No -Wound/Ulcer Outcome Not Healed -Ulcer Cleansing Rinsed/ Irrigated with Saline -Foul Odor after Cleansing No -Bioengineered Tissue No -Bleeding Controlled with Pressure -Offloading Yes -Type of Offloading Surgical Shoe -Treatment Response Procedure Tolerated Well -Debridement - Subq, 1st 20sq cm No Pain Scale: 0-10 Numeric Is Patient Pain Free? Yes WC - Nurse 3 - General Ulcer D/C NN Start: 09/25/20 08:50 Freq: Status: Active Protocol: Activity Type Activity Date Activity User E-Sign Co-Sign Detail Recorded Client Recorded Date Recorded By Document 09/25/20 09:46 DL [id number] 09/25/20 09:47 DL Document 10/02/20 11:10 DL [id number] 10/02/20 11:11 DL Document 10/09/20 10:29 DL [id number] 10/09/20 10:31 DL Document 10/16/20 10:40 DL Desktop 10/16/20 10:42 DL 09/25/20 10/02/20 10/09/20 09:46 11:10 10:29 Wound Care Nurse 3 #5- L HEEL FISSURE -Ulcer Cleansing -Foul Odor after Cleansing -Other Dressing -Primary Dressing Covered/Secured with #3 4th lateral toe/amp site -Ulcer Cleansing Wound Cleanser Rinsed/ Irrigated with Saline -Foul Odor after Cleansing No No No -Other Dressing betadine betadine betadine -Primary Dressing Covered/Secured with Dry Gauze & Dry Gauze & Dry Gauze & Roll Gauze, Roll Gauze, Roll Gauze, Secured with Secured with Secured with Tape Tape Tape #2 L 5th toe -Ulcer Cleansing Wound Cleanser Rinsed/ Irrigated with Saline -Foul Odor after Cleansing No No No -Other Dressing betadine betadine betadine -Primary Dressing Covered/Secured with Dry Gauze & Dry Gauze & Dry Gauze & Roll Gauze, Roll Gauze, Roll Gauze, Secured with Secured with Secured with Tape Tape Tape #1 L Grt Toe -Ulcer Cleansing Wound Cleanser Rinsed/ Irrigated with Saline -Foul Odor after Cleansing No No No -Other Dressing betadine betadine betadine -Primary Dressing Covered/Secured with Dry Gauze & Dry Gauze & Dry Gauze & Roll Gauze, Roll Gauze, Roll Gauze, Secured with Secured with Secured with Tape Tape Tape Treatment Response Procedure Procedure Procedure Tolerated Well Tolerated Well Tolerated Well Pain Scale: 0-10 Numeric Is Patient Pain Free? Yes Yes Yes WC - Visit Discharge Discharge Condition Stable Stable Ambulatory Status Ambulatory,Cane Ambulatory Ambulatory, Walker Transportation Private Auto Private Auto Private Auto Accompanied by family Facility Type Home Health Home Health Home Health Orders Sent Yes Yes 10/16/20 10:40 Wound Care Nurse 3 #5- L HEEL FISSURE -Ulcer Cleansing Rinsed/ Irrigated with Saline -Foul Odor after Cleansing No -Other Dressing Hydrodgel -Primary Dressing Covered/Secured with Secured with Tape #3 4th lateral toe/amp site -Ulcer Cleansing Rinsed/ Irrigated with Saline -Foul Odor after Cleansing No -Other Dressing hydrogel -Primary Dressing Covered/Secured with Dry Gauze & Roll Gauze, Secured with Tape #2 L 5th toe -Ulcer Cleansing Rinsed/ Irrigated with Saline -Foul Odor after Cleansing No -Other Dressing hydrogel -Primary Dressing Covered/Secured with Dry Gauze & Roll Gauze, Secured with Tape #1 L Grt Toe -Ulcer Cleansing Rinsed/ Irrigated with Saline -Foul Odor after Cleansing No -Other Dressing hydrogel -Primary Dressing Covered/Secured with Dry Gauze & Roll Gauze, Secured with Tape Treatment Response Procedure Tolerated Well Pain Scale: 0-10 Numeric Is Patient Pain Free? Yes WC - Visit Discharge Discharge Condition Stable Ambulatory Status Ambulatory Transportation Private Auto Accompanied by Facility Type Home Health Orders Sent Yes Wound debrided: Hallux Laterality: Left Wound Grade/Stage: Luciano 1 Type of Debridement: Excisional debridement Anesthesia Used: 4% Lidocaine Solution Depth: in the subcutaneous layer Percentage of wound debrided: 100 Instrument Used: 3mm curette Tissue Removed: includes fibrous, devitalized, biofilm, callus and slough tissue Severity: Fat Layer Exposed Amount of bleeding with debridement: Mild Bleeding Controlled with: Pressure Patient tolerated procedure: Patient tolerated procedure well Additional Wound Wound debrided: Fourth amputation site and fifth digit Laterality: Left Wound Grade/Stage: Luciano 2 Type of Debridement: Excisional debridement Anesthesia Used: 4% Lidocaine Solution Depth: in the subcutaneous layer and to bone Percentage of wound debrided: 100 Instrument Used: 3mm curette Tissue Removed: Includes fibrous, devitalized, biofilm, callus and slough tissue Severity: Necrosis of Bone (Debrided to subcu) Amount of bleeding with debridement: Mild Bleeding Controlled with: Pressure Patient tolerated procedure: Patient tolerated procedure well Assessment/Plan Assessment/Plan (1) 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 (2) Non-pressure chronic ulcer of other part of left foot with fat layer exposed: CODE(S): L97.522 - Non-pressure chronic ulcer of other part of left foot with fat layer exposed (3) Peripheral arterial occlusive disease: CODE(S): I77.9 - Disorder of arteries and arterioles, unspecified (4) PAD (peripheral artery disease): CODE(S): I73.9 - Peripheral vascular disease, unspecified (5) History of tobacco abuse: CODE(S): Z87.891 - Personal history of nicotine dependence (6) Type 2 diabetes mellitus: CODE(S): E11.9 - Type 2 diabetes mellitus without complications QUALIFIERS: Diabetes mellitus complication detail: with peripheral angiopathy with gangrene Diabetes mellitus complication status: with circulatory complication Diabetes mellitus alf insulin use: 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 Qualified Code(s): E11.52 - Type 2 diabetes mellitus with diabetic peripheral angiopathy with gangrene (7) Amputated toe: CODE(S): S98.139A - Complete traumatic amputation of one unspecified lesser toe, initial encounter QUALIFIERS: Laterality: left Qualified Code(s): S98.132A - Complete traumatic amputation of one left lesser toe, initial encounter (8) Ischaemic rest pain of lower extremity: CODE(S): M79.606 - Pain in leg, unspecified; I99.8 - Other disorder of circulatory system (9) Cellulitis of left foot: CODE(S): L03.116 - Cellulitis of left lower limb (10) Skin ulcer of left heel, limited to breakdown of skin: CODE(S): L97.421 - Non-pressure chronic ulcer of left heel and midfoot limited to breakdown of skin PLAN: Patient seen and examined. Wounds are noted to have improved since intervention with Dr. Nicholson last week. Foot is significantly better improved from a vascular standpoint with palpable pulses and more normal coloring and temperature. There is concerned that blood flow was not restored prior to significant damage was done to the fifth digit. The fifth digit is necrotic. We will continue to monitor this area. Good h ealthy normal bleeding was noted to other ulceration sites upon debridement. There is also noted to be a new wound to the posterior plantar heel. This does not appear infected in nature. And superficial down to level of fascia. Recommend daily Santyl dressing changes to all ulceration sites After verbal consent was obtained sharp excisional debridement of all ulceration sites was carried out Patient noted to have peripheral vascular disease. Patient has been seeing Dr. Nicholson for management of this. Patient had intervention on 06/12/2020 with some regression of her vascular status noted. Patient had intervention again on 10/11/2020 this was performed at [facility]. We will try to obtain these records. Patient has been using Percocet for pain control since the procedure Patient has recent LEAS prior to intervention with Dr. Nicholson with left monophasic pulses with an JENY of 0.59 from the PT artery and a TBI of 0.12. On the right side the DP and PT are monophasic as well with an JENY of 0.53 on the PT artery and 0.75 to the DP artery and a TBI of 0.3. 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 Patient had vascular duplex ultrasound obtained on 08/29/2020 which demonstrates severe stenosis of the left distal external iliac artery Patient was hospitalized on 07/07/20 for worsening 4th toe ulceration and blood in stool. Patient was noted to have rapid increase in gangrene to 4th digit. Amputation of 4th digit and debridement of 1st and 5th digit was performed 07/08/20. OM was confirmed with [facility]. Patient was discharged on Levaquin every other day due to kidney function she has since finished. Reviewed proper wound care with patient. Discussed with the patient the importance of offloading the sites with wide enough shoe gear if she is to be wearing shoes, proper diet, good blood sugar control. Patient has offloading boot. All questions were answered patient satisfaction. Discussed with the patient all concerning signs and symptoms to watch out for and to contact office if he either presents. X-ray from 10/05/2020 showed amputation of the fourth digit. There is no other bony changes consistent with osteomyelitis noted to remaining digits at ulceration sites. There is no fractures or soft tissue emphysema noted cultures obtained 10/05/2020 demonstrated Pseudomonas aeruginosa. Discussed with the patient that given her restored vascular status that there is a chance that she would be able to now heal all of her wounds. Discussed that there is a possibility that there has been too much damage done to the fifth digit in order to save it. We will continue to monitor closely. Discussed with patient possibility of amputation of the fifth digit. Discussed previously with patient possibility of TMA amputation as well. We will continue to monitor. Discussed this with patient as well as family members. Discussed that there is every possibility now that she could have the blood flow to heal the wounds. We will continue to monitor closely. Patient wishes to discuss with family any further possibility options of amputations versus wound care. Patient is to follow-up in 1 week. This note was generated with Ning by [employer] software. It may contain incorrect words, spelling, and punctuation that were not noted in checking the note before signing. The problems addressed require a low medical decision making level which includes two or more minor problems, a stable chronic illness, or an acute uncomplicated illness or injury. The problems addressed require a low medical decision making level which includes two or more minor problems, a stable chronic illness, or an acute uncomplicated illness or injury.
== END 2020-10-22 23:59 ==
LOC: WC 09:15
PROVIDERS: PCP Family Medicine; Referring Provider Podiatrist; Visit Provider Podiatrist Foot & Ankle Surgery
DX: E11.621 Type 2 diabetes mellitus with foot ulcer (principal); E11.52 Type 2 diabetes mellitus with diabetic peripheral angiopathy with gangrene; L97.421 Non-pressure chronic ulcer of left heel and midfoot limited to breakdown of skin; L97.522 Non-pressure chronic ulcer of other part of left foot with fat layer exposed; L97.526 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 without evidence of necrosis; G89.18 Other acute postprocedural pain; Z87.891 Personal history of nicotine dependence; Z79.4 Long term (current) use of insulin; Z87.820 Personal history of traumatic brain injury; I77.9 Disorder of arteries and arterioles, unspecified; L03.116 Cellulitis of left lower limb; I99.8 Other disorder of circulatory system; S98.139A Complete traumatic amputation of one unspecified lesser toe, initial encounter; S98.132A Complete traumatic amputation of one left lesser toe, initial encounter
CPT/HCPCS: 11042; 73630; 99213; G0463

== ENCOUNTER 2020-10-18 14:42 | Emergency (ER) | payer MEDICARE, SELFPAY ==
[2020-10-18 14:43] VITALS: BP 154/76; PULSE 70; RESP 16; TEMP 35.5; O2SAT 95; BMI 23.0; BMI 23.1
--- NOTE | 2020-10-18 15:40 | EX.ED.DYSGE1 ---
HPI History of Present Illness Chief Complaint: Lower Extremity Injury Informant: patient and family Onset/Context/Timing Onset: Days Context: Gradual Onset Narrative Narrative: Patient presents requesting pain medication. She had vascular surgery last , [address] Nicholson at [facility]. Patient is currently out of her oxycodone. Dr. Nicholson's office will have a prescription and that family can pecan picker tomorrow, but because she did not have pain control tonight they recommended she come to the emergency room. Patient does state her left leg has been swollen since her surgery. She reports that she did have an ultrasound that showed no evidence of a DVT. She is currently on aspirin and Plavix. [facility] Medical History (Updated 10/18/20 @ 15:[address] Munira Canela MD) Atherosclerotic heart disease of [place] coronary artery without angina pectoris BBB (bundle branch block) Carotid stenosis, bilateral Carotid stenosis, bilateral Diabetes Essential hypertension HTN (hypertension) Hyperlipidemia Osteoarthritis PAD (peripheral artery disease) Peripheral arterial occlusive disease Presence of stent in coronary artery (~07/04/11) RBBB (right bundle branch block) TIA (transient ischemic attack) Type 2 diabetes mellitus Home Medications aspirin 81 mg PO QHS 06/07/16 [History Last Taken 06/11/20] clopidogrel 75 mg PO DAILY 06/07/16 [History Last Taken 06/12/20] coenzyme Q10 10 mg capsule 10 mg PO DAILY 01/11/19 [History Last Taken 06/12/20] nitroglycerin 0.4 mg sublingual tablet 0.4 mg SUBLINGUAL Q5-15M 01/11/19 [History Last Taken Unknown] multivitamin 1 tab PO DAILY 04/28/19 [History Last Taken 06/12/20] omega-3 fatty acids 1,000 mg capsule 1,000 mg PO DAILY 04/28/19 [History Last Taken 06/12/20] metformin 500 mg PO BID 05/13/19 [History Last Taken 06/11/20] cholecalciferol (vitamin D3) 50 mcg (2,000 unit) capsule 50 mcg PO DAILY 11/02/19 [History Last Taken 06/12/20] gabapentin 100 mg capsule 100 mg PO TID 07/02/20 [History Last Taken Unknown] amlodipine 5 mg PO DAILY 07/07/20 [History Last Taken Unknown] levofloxacin 750 mg PO QODAY@0600 #4 tab 07/09/20 [Rx Last Taken Unknown] metoprolol tartrate 25 mg PO BID #1 tab 07/09/20 [Rx Last Taken Unknown] levofloxacin 750 mg PO QODAY #4 tab 07/17/20 [Rx Last Taken Unknown] levofloxacin 750 mg PO QODAY #4 tab 07/17/20 [Rx Last Taken Unknown] levofloxacin 750 mg PO QODAY #4 tab 09/11/20 [Rx Last Taken Unknown] doxycycline monohydrate 100 mg PO DAILY #7 capsule 09/14/20 [Rx Last Taken Unknown] amoxicillin-pot clavulanate [Augmentin] 1 tab PO BID #14 tab 10/05/20 [Rx Last Taken Unknown] oxycodone-acetaminophen [Percocet] 1 tab PO Q6H PRN 5 Days #20 tab 10/05/20 [Rx Last Taken Unknown] oxycodone 5 mg PO Q8H PRN 2 Days #6 cap 10/18/20 [Rx Last Taken Unknown] Allergy/AdvReac Type Severity Reaction Status Date / Time pravastatin AdvReac Severe myalgias Verified 10/18/20 14:46 Sulfa (Sulfonamide AdvReac Mild stomach Verified 10/18/20 14:46 Antibiotics) upset atorvastatin AdvReac myalgias Verified 10/18/20 14:46 Family History Father Diabetes Heart disease Brother Diabetes Colon cancer Brother Diabetes Surgical History Cataract extraction status of right eye History of heart artery stent History of hemorrhoidectomy History of hysterectomy History of left-sided carotid endarterectomy Presence of coronary angioplasty implant and graft (~07/04/11) Status post peripheral artery angioplasty Social History Smoking Status: Former smoker alcohol intake: current details: social substance use type: does not use caffeine: Yes what type of physical activity do you participate in: walking seatbelt use: always do you feel safe at home: Yes ROS ROS ED Constitutional Constitutional ED: Denies chills or fever(s) Eyes Eyes: Denies change in vision Cardiovascular Cardiovascular: Denies chest pain Respiratory/Chest Respiratory/Chest: Denies cough or dyspnea Gastrointestinal Gastrointestinal: Denies abdominal pain Musculoskeletal Musculoskeletal: Reports myalgias Integumentary Reports other Details: Chronic left foot wound Psychiatric Psychiatric: Denies anxiety or depression Allergic/Immunologic Allergic/Immunologic ED: Denies urticaria EXAM Physical Exam Const Vital Signs: 10/18/20 14:43 Temperature 96 F L Temperature Source Temporal Pulse Rate 70 Respiratory Rate 16 Blood Pressure 154/76 H Blood Pressure Mean 102 Pulse Ox 95 Oxygen Delivery Method Room Air Positive well nourished and well developed General Appearance ED: well developed Eyes PERRL and EOMs intact bilaterally Neck supple Chest Wall inspection of chest normal Resp normal respiratory effort and clear to auscultation bilaterally Cardio regular rate and regular rhythm GI normal to inspection, nondistended, normoactive bowel sounds Extremity Extremity Narrative: Patient does have 2+ edema left lower extremity. Palpable distal pulses. Chronic foot wound noted with dressing in place. No significant erythema. No palpable cords. Neuro oriented x3 Sensorium / Orientation: alert MDM MDM Treatment and Re-Evaluation Comments:: Patient be given a dose of oxycodone here and a prescription for 5 additional tabs. Family will pecan picker prescription at Dr. Nicholson's office tomorrow. Discharge Plan Triage Chief Complaint: Lower Extremity Injury ED Provider: uMnira Canela Dx/Rx/DC Orders Clinical Impression: Post-op pain Instructions: ED Post Op Wound Check, Pain Prescriptions: New oxycodone 5 mg capsule 5 mg PO Q8H PRN (Reason: pain) 2 Days Qty: 6 RF: 0 No Action omega-3 fatty acids [Fish Oil Concentrate] 1,000 mg capsule 1,000 mg PO DAILY RF: 0 multivitamin Tablet 1 tab PO DAILY RF: 0 nitroglycerin 0.4 mg tablet, sublingual 0.4 mg SUBLINGUAL Q5-15M RF: 0 coenzyme Q10 10 mg capsule 10 mg PO DAILY RF: 0 cholecalciferol (vitamin D3) 50 mcg (2,000 unit) capsule 50 mcg PO DAILY RF: 0 gabapentin 100 mg capsule 100 mg PO TID RF: 0 clopidogrel 75 MG tablet 75 mg PO DAILY RF: 0 aspirin 81 MG tablet,chewable 81 mg PO QHS RF: 0 metformin 500 MG tablet extended release 24 hr 500 mg PO BID RF: 0 levofloxacin 750 MG tablet 750 mg PO QODAY Qty: 4 RF: 0 levofloxacin 750 MG tablet 750 mg PO QODAY Qty: 4 RF: 0 amlodipine 10 MG tablet 5 mg PO DAILY RF: 0 levofloxacin 750 MG tablet 750 mg PO QODAY@0600 Qty: 4 RF: 0 metoprolol tartrate 25 MG tablet 25 mg PO BID Qty: 1 RF: 0 levofloxacin 750 MG tablet 750 mg PO QODAY Qty: 4 RF: 0 oxycodone-acetaminophen [Percocet] 5-325 mg tablet 1 tab PO Q6H PRN (Reason: pain) 5 Days Qty: 20 RF: 0 amoxicillin-pot clavulanate [Augmentin] 875-125 mg tablet 1 tab PO BID Qty: 14 RF: 0 doxycycline monohydrate 100 MG capsule 100 mg PO DAILY Qty: 7 RF: 0 Primary Care Provider: Tre Marks Referrals: Pablo Nicholson MD [STAFF PHYSICIAN] - Keep Jazmin appointment Tre Marks MD [Primary Care Provider] - Disposition Disposition: Home, self care
[2020-10-18 15:56] VITALS: BP 127/61; PULSE 63; RESP 16; O2SAT 98
[2020-10-18] MEDS: oxyCODONE 5 MG Tablet PO (15:56)
== END 2020-10-18 16:11 | disposition home or self-care (01) ==
LOC: ED 16:10
PROVIDERS: Emergency Provider Emergency Medicine; PCP Family Medicine
DX: G89.18 Other acute postprocedural pain (principal); R60.0 Localized edema; Z87.891 Personal history of nicotine dependence; E11.51 Type 2 diabetes mellitus with diabetic peripheral angiopathy without gangrene; E78.5 Hyperlipidemia, unspecified; I10 Essential (primary) hypertension; I25.10 Atherosclerotic heart disease of native coronary artery without angina pectoris; Z79.82 Long term (current) use of aspirin; Z86.73 Personal history of transient ischemic attack (TIA), and cerebral infarction without residual deficits; Z79.84 Long term (current) use of oral hypoglycemic drugs; Z79.899 Other long term (current) drug therapy
CPT/HCPCS: 99283

== ENCOUNTER 2020-10-25 05:58 | Emergency (ER) | payer MEDICARE, SELFPAY ==
[2020-10-23 09:09] VITALS: BMI 23.0
[2020-10-25 05:59] VITALS: BP 170/56; PULSE 74; RESP 18; TEMP 36.2; O2SAT 100; BMI 22.8
--- NOTE | 2020-10-25 06:09 | CT_ITS ---
STUDY: CT CERVICAL SPINE WITHOUT CONTRAST REASON FOR EXAM: Female, 84 years old patient with neck injury after recent trauma. RADIATION DOSAGE (If Supplied By Facility): CTDIvol = ( 14.89 ) mGy, DLP = ( 294.67 ) mGycm TECHNIQUE: High resolution transaxial imaging was performed without contrast material. Sagittal and coronal images were reconstructed. Individualized dose optimization techniques were used for this CT. COMPARISON: Prior comparison studies are not available for review at this time. FINDINGS: Normal craniovertebral junction. Normal anterior atlantoaxial articulation. Normal odontoid process. There is straightening of the normal cervical lordosis. Cervical and thoracic vertebral bodies have normal height and alignment. C2-3: Normal endplates. Normal disc height and morphology. Normal central canal. There is moderate narrowing of the left neural foramen. There is hypertrophic left-sided facet joint arthropathy. The right neural foramen is patent. C3-4: There is narrowing of the disks. There is no anterolisthesis at this level. There is mild left-sided neural foraminal narrowing. Right neuroforamen is patent. There is no central canal stenosis. C4-5: There is severe narrowing of the disc space. There is moderate bilateral neural foraminal narrowing with uncovertebral and facet joint arthropathy. There is no central canal stenosis. C5-6: There is severe narrowing of the disc space with endplate osteophytes. There is severe bilateral neural foraminal narrowing with uncovertebral joint hypertrophy. There is mild central canal stenosis. C6-7: There is severe narrowing of the disc space with small endplate osteophytes. The neural foramina are moderately narrowed by uncovertebral joint hypertrophy. There is mild central canal stenosis. C7-T1: Normal endplates. Normal disc height and morphology. Normal central canal and intervertebral neuroforamina. There is mild anterolisthesis at this level. Lung apices appear to be clear. There is a right-sided thyroid nodule measuring approximately 2.9 x 1.3 x 2.1 cm in size. There are vascular calcifications of the carotid arteries. There is atherosclerotic calcification of the thoracic aorta. CT/Spine Cervical without Contras IMPRESSION: 1. No CT evidence of acute compression or displaced fracture. 2. 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 3. Large right-sided thyroid nodule. Suggest follow-up ultrasound on nonemergent basis if this is not done already. Electronically Signed: Tiffanie Bojorquez MD at 8:03 EDT , Service support ,
--- NOTE | 2020-10-25 06:09 | CT_ITS ---
STUDY: CT BRAIN WITHOUT CONTRAST REASON FOR EXAM: Female, 84 years old patient with closed head injury after fall. RADIATION DOSAGE (If Supplied By Facility): CTDIvol = ( 44.99 ) mGy, DLP = ( 779.24 ) mGycm TECHNIQUE: Transaxial CT imaging of the brain was performed without administration of intravenous contrast material. Individualized dose optimization techniques were used for this CT. COMPARISON: CT of the head dated 05/13/2019. FINDINGS: There is a large left paramedian frontal scalp and forehead hematoma measuring 5.1 x 1.1 x 6 cm in size. Normal calvarium. There is mild cerebral atrophy with widening of the extra-axial spaces and ventricular dilatation. There are areas of decreased attenuation within the white matter tracts of the supratentorial brain, consistent with microvascular disease changes. Normal basal ganglia and thalami. Normal brainstem. There is mild cerebellar atrophy. There is no intracranial hemorrhage. There is moderately severe atherosclerotic calcification of the intracranial arteries Normal visualized paranasal sinuses. CT/Brain/Head without Contrast IMPRESSION: 1. Chronic involutional changes of the brain. 2. Large left paramedian forehead and frontal scalp hematoma and contusion. 3. No CT evidence of acute intracranial hemorrhage. Electronically Signed: Tiffanie Bojorquez MD at 7:54 EDT , Service support ,
--- NOTE | 2020-10-25 06:10 | EKG12_ITS ---
Test Reason : SYNCOPE Blood Pressure : / mmHG Vent. Rate : 056 BPM Atrial Rate : 056 BPM P-R Int : 180 ms QRS Dur : 116 ms QT Int : 432 ms P-R-T Axes : 074 067 053 degrees QTc Int : 416 ms Sinus bradycardia Right bundle branch block Abnormal ECG Confirmed by BENI HANNON, STEPHY ([id number]), scientific editor DAIANA HUSSEIN ([id number]) on 10/29/2020 9:51:17 AM Referred By: GLORIA Confirmed By:STEPHY BAZAN MD
--- NOTE | 2020-10-25 06:12 | EDS_ITS ---
HPI History of Present Illness Chief Complaint: Head Injury Narrative Narrative: Patient stated that she woke up and was at a family member's house. She leaned over in the chair and had a syncopal episode. She struck her forehead on a piece of furniture. She went to the ground. She denies any neck pain. She suffered a hematoma to her forehead small abrasion to her right lateral little finger. She denies any pain in that area. No home treatment. Comes in for further evaluation. She is on Plavix. History of carotid stent in the past. Denies any other symptoms. This is never happened in the past. History of right bundle branch block. [facility] Medical History (Updated 10/25/20 @ 06:[address] Joe Licona MD) Atherosclerotic heart disease of [place] coronary artery without angina pectoris BBB (bundle branch block) Carotid stenosis, bilateral Carotid stenosis, bilateral Diabetes Essential hypertension HTN (hypertension) Hyperlipidemia Osteoarthritis PAD (peripheral artery disease) Peripheral arterial occlusive disease Presence of stent in coronary artery (~07/04/11) RBBB (right bundle branch block) TIA (transient ischemic attack) Type 2 diabetes mellitus Home Medications aspirin 81 mg PO QHS 06/07/16 [History Last Taken 06/11/20] clopidogrel 75 mg PO DAILY 06/07/16 [History Last Taken 06/12/20] coenzyme Q10 10 mg capsule 10 mg PO DAILY 01/11/19 [History Last Taken 06/12/20] nitroglycerin 0.4 mg sublingual tablet 0.4 mg SUBLINGUAL Q5-15M 01/11/19 [History Last Taken Unknown] multivitamin 1 tab PO DAILY 04/28/19 [History Last Taken 06/12/20] omega-3 fatty acids 1,000 mg capsule 1,000 mg PO DAILY 04/28/19 [History Last Taken 06/12/20] metformin 500 mg PO BID 05/13/19 [History Last Taken 06/11/20] cholecalciferol (vitamin D3) 50 mcg (2,000 unit) capsule 50 mcg PO DAILY 11/02/19 [History Last Taken 06/12/20] gabapentin 100 mg capsule 100 mg PO TID 07/02/20 [History Last Taken Unknown] amlodipine 5 mg PO DAILY 07/07/20 [History Last Taken Unknown] metoprolol tartrate 25 mg PO BID #1 tab 07/09/20 [Rx Last Taken Unknown] oxycodone-acetaminophen [Percocet] 1 tab PO Q6H PRN 5 Days #20 tab 10/05/20 [Rx Last Taken Unknown] oxycodone 5 mg PO Q8H PRN 2 Days #6 cap 10/18/20 [Rx Last Taken Unknown] Allergy/AdvReac Type Severity Reaction Status Date / Time pravastatin AdvReac Severe myalgias Verified 10/18/20 14:46 Sulfa (Sulfonamide AdvReac Mild stomach Verified 10/18/20 14:46 Antibiotics) upset atorvastatin AdvReac myalgias Verified 10/18/20 14:46 Family History Father Diabetes Heart disease Brother Diabetes Colon cancer Brother Diabetes Surgical History Cataract extraction status of right eye History of heart artery stent History of hemorrhoidectomy History of hysterectomy History of left-sided carotid endarterectomy Presence of coronary angioplasty implant and graft (~07/04/11) Status post peripheral artery angioplasty Social History Smoking Status: Former smoker alcohol intake: current details: social substance use type: does not use caffeine: Yes what type of physical activity do you participate in: walking seatbelt use: always do you feel safe at home: Yes ROS ROS ED ROS Narrative ROS General: Denies fever, chills, sweats Eyes: Denies visual changes, blurred vision, double vision ENT: Denies ear pain, rhinorrhea, sore throat Cardiovascular: Denies chest pain, palpitations, heart racing Respiratory: Denies dyspnea, cough, sputum, dyspnea on exertion, orthopnea,PND GI: Denies abdominal pain, nausea, vomiting, diarrhea, constipation, melena : Denies dysuria, hematuria, frequency Musculoskeletal: Denies myalgias, arthralgias, neck pain, back pain Skin: Denies rash, abscess, abrasions Neuro: Denies weakness, paresthesia. See HPI Psych: Denies depression, anxiety Endo: Denies polyuria, polydipsia, polyphagia Heme: Denies easy bruising, easy bleeding, lymphadenopathy Allergy: Denies hives, swelling EXAM Physical Exam Narrative Exam Narrative: Vital signs reviewed General: Well-nourished well-developed Head: 5 x 5 cm hematoma left forehead. No laceration. Eyes: Pupils equal round and reactive to light extraocular movements intact ENT: TMs clear no hemotympanum no trauma Neck: Nontender full range of motion Cardiovascular: Regular rate rhythm no murmurs normal S1-S2 Respiratory: No distress clear to auscultation bilaterally chest nontender Abdomen: Soft nontender nondistended normal bowel sounds no masses Back: Nontender no CVA tenderness Extremities: Nontender active range of motion ?4 extremities no trauma Skin: See above. Very superficial abrasion to the right lateral fourth and fifth finger Neuro alert oriented cranial nerves II through XII intact normal strength s ensation reflexes Const Vital Signs: 10/25/20 05:59 10/25/20 06:06 Temperature 97.2 F L Temperature Source Temporal Pulse Rate 74 Respiratory Rate 18 Respiratory Effort Normal Blood Pressure 170/56 H Blood Pressure Mean 94 Pulse Ox 100 Oxygen Delivery Method Room Air MDM MDM MDM Narrative Medical decision making narrative: Patient resting comfortably. IV established. Lab work EKG CT head neck obtained. CT head and neck showed no acute abnormalities. Chronic changes noted. No hematoma intracerebral. Lab work shows no significant abnormalities. Chronic changes noted. At this time the patient's Gibbon syncope score is 0. I do not think she needs to be admitted for this. She just has a scalp hematoma. We will follow-up as an outpatient. EKG shows sinus rhythm rate of 56 with a right bundle branch block which is chronic. Lab Data Labs: Laboratory Results - last 24 hr 10/25/20 06:20 Sodium 135 L Potassium 4.4 Chloride 100 Carbon Dioxide 29.0 Anion Gap 6 BUN 28 H Creatinine 0.88 Estim Creat Clear Calc 41.09 Est GFR (MDRD) Af Amer 79 Est GFR (MDRD) Non-Af 65 BUN/Creatinine Ratio 32.0 H Glucose 165 H Calcium 9.1 Total Bilirubin 0.60 AST 15 ALT 17 Alkaline Phosphatase 84 Troponin I < 0.015 Total Protein 7.2 Albumin 3.0 L Globulin 4.2 Albumin/Globulin Ratio 0.7 L Discharge Plan Triage Chief Complaint: Head Injury ED Provider: Joe Licona Dx/Rx/DC Orders Clinical Impression: Hematoma of frontal scalp, Syncope Instructions: ED Scalp Contusion, ED Hematoma Prescriptions: No Action omega-3 fatty acids [Fish Oil Concentrate] 1,000 mg capsule 1,000 mg PO DAILY RF: 0 multivitamin Tablet 1 tab PO DAILY RF: 0 nitroglycerin 0.4 mg tablet, sublingual 0.4 mg SUBLINGUAL Q5-15M RF: 0 coenzyme Q10 10 mg capsule 10 mg PO DAILY RF: 0 cholecalciferol (vitamin D3) 50 mcg (2,000 unit) capsule 50 mcg PO DAILY RF: 0 gabapentin 100 mg capsule 100 mg PO TID RF: 0 clopidogrel 75 MG tablet 75 mg PO DAILY RF: 0 aspirin 81 MG tablet,chewable 81 mg PO QHS RF: 0 metformin 500 MG tablet extended release 24 hr 500 mg PO BID RF: 0 amlodipine 10 MG tablet 5 mg PO DAILY RF: 0 metoprolol tartrate 25 MG tablet 25 mg PO BID Qty: 1 RF: 0 oxycodone-acetaminophen [Percocet] 5-325 mg tablet 1 tab PO Q6H PRN (Reason: pain) 5 Days Qty: 20 RF: 0 oxycodone 5 mg capsule 5 mg PO Q8H PRN (Reason: pain) 2 Days Qty: 6 RF: 0 Primary Care Provider: Tre Marks Referrals: Tre Marks MD [Primary Care Provider] - Disposition Disposition: Home, self care
[2020-10-25 06:44] LABS: ALB/GLOB Ratio 0.7 RATIO (0.9-2.4); AST(SGOT) 15 U/L (15-37); Alanine Aminotransfer ALT/SGPT 17 U/L (13-56); Alkaline Phosphatase 84 U/L (45-117); Anion Gap 6 (5-15); BUN 28 mg/dL (7-18); Calcium,Total 9.1 mg/dL (8.5-10.1); Chloride 100 mmol/L (98-107); Creatinine, Serum 0.88 mg/dL (0.55-1.02); EST Glomerular Filtration Rate 65 mL/min (>60); Est Glom Filt Rate - Afr Amer 79 mL/min (>60); Estimated Creatinine Clearance 41.09 ml/min; Globulin 4.2 g/dL (2.2-4.2); Glucose 165 mg/dL (74-106); Potassium 4.4 mmol/L (3.5-5.1); Protein, Total 7.2 g/dL (6.4-8.2); Sodium Level 135 mmol/L (136-145)
[2020-10-25 06:47] LABS: Absolute Lymphocyte Count 1.93 X10^3/uL (0.83-4.51); Absolute Neutrophil Count 7.3 X10^3/uL (2.0-7.7); Basophil# 0.06 X10^3/uL; Basophil% 0.6 % (0-1); Eosinophil# 0.15 X10^3/uL; Eosinophils% 1.5 % (0-5); Hematocrit 33.6 % (37-47); Hemoglobin 10.5 g/dL (12.0-15.0); Lymphocyte # 1.93 X10^3/ul (0.83-4.51); Lymphocyte % 19.1 % (19-41); Mean Corp Hgb Conc 31.3 g/dL (32-36); Mean Corpuscular Volume 89.6 fL (81-99); Mean Platelet Vol. 8.5 fl (6.2-12.0); Monocyte# 0.66 X10^3/uL; Monocyte% 6.5 % (0-10); NRBC Flagged by Analyzer 0 % (0-5); Neutrophil # 7.27 X10^3/uL (2.7-7.7); Neutrophil % 71.8 % (47-70); Platelet Count 568 K/mm3 (150-450); RBC Distribution Width CV 12.7 % (11.6-14.6); Red Blood Count 3.75 M/mm3 (4.2-5.4); White Blood Count 10.1 K/mm3 (4.4-11.0)
[2020-10-25] MEDS: Acetaminophen 500 MG Tablet 1000 MG PO (07:08)
[2020-10-25 07:40] VITALS: BP 161/60; PULSE 61; RESP 19
== END 2020-10-25 08:12 | disposition home or self-care (01) ==
LOC: ED 06:51
PROVIDERS: Emergency Provider Emergency Medicine; PCP Family Medicine
DX: R55 Syncope and collapse (principal); S00.03XA Contusion of scalp, initial encounter; W22.8XXA Striking against or struck by other objects, initial encounter; Y92.89 Other specified places as the place of occurrence of the external cause; Y99.8 Other external cause status; I45.10 Unspecified right bundle-branch block; I25.10 Atherosclerotic heart disease of native coronary artery without angina pectoris; E11.9 Type 2 diabetes mellitus without complications; I10 Essential (primary) hypertension; E78.5 Hyperlipidemia, unspecified; Z86.73 Personal history of transient ischemic attack (TIA), and cerebral infarction without residual deficits; Z95.5 Presence of coronary angioplasty implant and graft; Z87.891 Personal history of nicotine dependence
CPT/HCPCS: 70450; 72125; 80053; 84484; 85025; 93005; 99285; A4216

== ENCOUNTER 2020-11-13 14:16 | Emergency (ER) | payer MEDICARE, SELFPAY ==
[2020-11-13 14:16] VITALS: BMI 22.8
[2020-11-13 14:17] VITALS: BP 151/65; PULSE 75; RESP 16; TEMP 36.6; O2SAT 100; BMI 23.5
--- NOTE | 2020-11-13 14:49 | VDLE_ITS ---
Reason For Study: PAIN RIGHT LEFT CFV is compressible, spontaneous, phasic, GSV is normal. competent and demonstrates normal CFV is compressible, spontaneous, phasic, augmentation. competent, and demonstrates normal Procedure augmentation. This is a venous duplex using B-mode, color FV is compressible, spontaneous, phasic, flow and spectral Doppler. competent and demonstrates normal Exam performed portable in ED. augmentation. The study was technically difficult. POP V is compressible, spontaneous, phasic, Rash on leg, painful to touch. competent and demonstrates normal A preliminary report was called and/or faxed augmentation. to ED. T/P Trunk is compressible. PTV is compressible. LT PerV is compressible. VL/Venous Duplex US, Unilateral Interpretation Summary Left leg with no DVT or SVT visualized. Ordering Physician: Jace Perrin Referring Physician: Mc Marks Performed By: Sivan Lofton, VY, RVT
--- NOTE | 2020-11-13 15:23 | EX.ED.DYSGE1 ---
HPI History of Present Illness Chief Complaint: Rash Informant: patient and family Onset/Context/Timing Onset: Days (4) Context: Gradual Onset (Just noticed that day) Timing: Continuous Quality: Sore and painful Location: Left thigh Current Severity: Moderate Maximum Severity: Moderate Worsened by: Palpation Relieved by: Nothing Associated Symptoms Associated Symptoms: Edema distally in left lower extremity Narrative Narrative: Patient has ischemic foot wounds (may be related to diabetes as well) in her left foot that she has been doctoring with wound care/podiatry, last seen today and had some debridement, she had procedure done by Dr. Nicholson about 1 month ago, described by the patient as opening her artery and her left lower extremity proximally, she points to the thigh. She has an appointment with him tomorrow in follow-up. She has been having a painful rash in the left thigh and presents for evaluation. No fevers or chills, no bleeding from anywhere except for a small wound on her left thigh that she does not know how it got there, she has had a Band-Aid on it since yesterday which has been helping it. [facility] Medical History (Updated 11/13/20 @ 16:[address] Jace Perrin MD) Atherosclerotic heart disease of [place] coronary artery without angina pectoris BBB (bundle branch block) Carotid stenosis, bilateral Carotid stenosis, bilateral Diabetes Essential hypertension HTN (hypertension) Hyperlipidemia Osteoarthritis PAD (peripheral artery disease) Peripheral arterial occlusive disease Presence of stent in coronary artery (~07/04/11) RBBB (right bundle branch block) TIA (transient ischemic attack) Type 2 diabetes mellitus Home Medications aspirin 81 mg PO QHS 06/07/16 [History Last Taken 06/11/20] clopidogrel 75 mg PO DAILY 06/07/16 [History Last Taken 06/12/20] coenzyme Q10 10 mg capsule 10 mg PO DAILY 01/11/19 [History Last Taken 06/12/20] nitroglycerin 0.4 mg sublingual tablet 0.4 mg SUBLINGUAL Q5-15M 01/11/19 [History Last Taken Unknown] multivitamin 1 tab PO DAILY 04/28/19 [History Last Taken 06/12/20] omega-3 fatty acids 1,000 mg capsule 1,000 mg PO DAILY 04/28/19 [History Last Taken 06/12/20] metformin 500 mg PO BID 05/13/19 [History Last Taken 06/11/20] cholecalciferol (vitamin D3) 50 mcg (2,000 unit) capsule 50 mcg PO DAILY 11/02/19 [History Last Taken 06/12/20] gabapentin 100 mg capsule 100 mg PO TID 07/02/20 [History Last Taken Unknown] amlodipine 5 mg PO DAILY 07/07/20 [History Last Taken Unknown] metoprolol tartrate 25 mg PO BID #1 tab 07/09/20 [Rx Last Taken Unknown] oxycodone-acetaminophen [Percocet] 1 tab PO Q6H PRN 5 Days #20 tab 10/05/20 [Rx Last Taken Unknown] oxycodone 5 mg PO Q8H PRN 2 Days #6 cap 10/18/20 [Rx Last Taken Unknown] cephalexin 500 mg PO Q6 #40 capsule 11/13/20 [Rx Last Taken Unknown] Allergy/AdvReac Type Severity Reaction Status Date / Time pravastatin AdvReac Severe myalgias Verified 11/13/20 14:18 Sulfa (Sulfonamide AdvReac Mild stomach Verified 11/13/20 14:18 Antibiotics) upset atorvastatin AdvReac myalgias Verified 11/13/20 14:18 Family History Father Diabetes Heart disease Brother Diabetes Colon cancer Brother Diabetes Surgical History Cataract extraction status of right eye History of heart artery stent History of hemorrhoidectomy History of hysterectomy History of left-sided carotid endarterectomy Presence of coronary angioplasty implant and graft (~07/04/11) Status post peripheral artery angioplasty Social History Smoking Status: Former smoker alcohol intake: current details: social substance use type: does not use caffeine: Yes what type of physical activity do you participate in: walking seatbelt use: always do you feel safe at home: Yes ROS ROS ED Constitutional Constitutional ED: Denies chills or fever(s) Eyes Eyes: Denies change in vision or diplopia ENT ENT ED: Denies rhinorrhea or sore throat Cardiovascular Cardiovascular: Denies chest pain or palpitations Respiratory/Chest Respiratory/Chest: Denies cough or dyspnea Gastrointestinal Gastrointestinal: Denies abdominal pain, diarrhea, nausea or vomiting Genitourinary Genitourinary ED: Denies dysuria or hematuria Musculoskeletal Musculoskeletal: Denies back pain or neck pain Integumentary Denies abscess or rash Neurologic Neurologic: Denies headache(s), paresthesias or weakness Psychiatric Psychiatric: Denies anxiety or suicidal thoughts EXAM Physical Exam Const Vital Signs: 11/13/20 14:17 Temperature 97.8 F Temperature Source Temporal Pulse Rate 75 Respiratory Rate 16 Blood Pressure 151/65 H Blood Pressure Mean 93 Pulse Ox 100 Oxygen Delivery Method Room Air Positive well nourished and well developed General Appearance ED: well developed and NAD HEENT Reports moist mucous membranes normocephalic and atraumatic Eyes PERRL and EOMs intact bilaterally Neck full ROM and supple Resp normal respiratory effort and clear to auscultation bilaterally Cardio regular rate, regular rhythm and no murmurs GI non-tender and non-distended Auscultation: normoactive bowel sounds Palpation: soft Back/Spine no CVA tenderness General Back: other FROM Extremity full ROM Extremity Narrative: Not able to palpate left dorsalis pedis and posterior tibial pulses due to edema. Cap refill 4-5 seconds distally in toes. No areas of necrosis. Tender left thigh at area of rash as well as medial left knee/popliteal area where there is subcutaneous nodule possible cord without overlying erythema. Surgical wound left inguinal area with underlying bounding pulse well-healed and benign. Another small opening in the skin a little distal and medial to this in the thigh which is healing with no active bleeding or signs of local infection, patient had a Band-Aid over it. No edema right lower extremity or erythema/rash elsewhere. General Extremety ED: Yes edema, pulses abnormal and tenderness General Extremity: edema and pulses abnormal Neuro oriented x3, CN's II-XII intact bilaterally and no sensory deficits noted Sensorium / Orientation: awake and alert Motor Exam: strength 5/5 throughout Skin no wounds Skin Narrative: Erythematous mildly purpuric patchy rash left mid-distal thigh with subcutaneous nodule within it and diffusely tender. No lymphangitis. No inguinal lymphadenopathy. MDM MDM MDM Narrative Medical decision making narrative: Venous eval was obtained, negative for any DVT or superficial thrombosis. Basic labs are unremarkable, including platelets which are 431. Patient is not anticoagulated. Discussed with Dr. Nicholson, with whom the patient has an appointment tomorrow, he agrees with covering the patient with antibiotics and he will look at it tomorrow but it unlikely has anything to do with the procedure that was done in the common femoral artery 1 month ago. He states that the edema is common/normal after the procedure he did, and typically is persistent for 2 or 3 months as a result of reperfusion. Vasculitis could be in the differential diagnosis. Also an abscess could be, however it does not feel like a drainable collection at this time. Patient was given a dose of IV vancomycin empirically, will be prescribed Keflex and discharged home to follow-up. The chronic left foot wounds do not appear to have any signs of infection at this time. Lab Data Attestation: I reviewed the patient's lab results. Labs: Laboratory Results - last 24 hr 11/13/20 11/13/20 15:30 15:30 WBC 8.2 RBC 3.63 L Hgb 10.0 L Hct 32.1 L MCV 88.4 MCH 27.5 MCHC 31.2 L RDW Std Deviation 43.3 RDW Coeff of Kathy 13.2 Plt Count 431 MPV 8.8 Immature Gran % (Auto) 0.500 Neut % (Auto) 65.1 Lymph % (Auto) 22.4 [place] % (Auto) 10.0 Eos % (Auto) 1.5 Baso % (Auto) 0.5 Absolute Neuts (auto) 5.3 Absolute Lymphs (auto) 1.84 Nucleated RBC % 0 Sodium 136 Potassium 4.0 Chloride 101 Carbon Dioxide 29.0 Anion Gap 6 BUN 25 H Creatinine 0.78 Estim Creat Clear Calc 36.16 Est GFR (MDRD) Af Amer 91 Est GFR (MDRD) Non-Af 75 BUN/Creatinine Ratio 32.2 H Glucose 133 H Calcium 9.3 Discharge Plan Triage Chief Complaint: Rash ED Provider: Jace Perrin Dx/Rx/DC Orders Clinical Impression: Cellulitis of left thigh Instructions: ED Cellulitis Prescriptions: New cephalexin [cephalexin] 500 MG capsule 500 mg PO Q6 Qty: 40 RF: 0 No Action omega-3 fatty acids [Fish Oil Concentrate] 1,000 mg capsule 1,000 mg PO DAILY RF: 0 multivitamin Tablet 1 tab PO DAILY RF: 0 nitroglycerin 0.4 mg tablet, sublingual 0.4 mg SUBLINGUAL Q5-15M RF: 0 coenzyme Q10 10 mg capsule 10 mg PO DAILY RF: 0 cholecalciferol (vitamin D3) 50 mcg (2,000 unit) capsule 50 mcg PO DAILY RF: 0 gabapentin 100 mg capsule 100 mg PO TID RF: 0 clopidogrel 75 MG tablet 75 mg PO DAILY RF: 0 aspirin 81 MG tablet,chewable 81 mg PO QHS RF: 0 metformin 500 MG tablet extended release 24 hr 500 mg PO BID RF: 0 amlodipine 10 MG tablet 5 mg PO DAILY RF: 0 metoprolol tartrate 25 MG tablet 25 mg PO BID Qty: 1 RF: 0 oxycodone-acetaminophen [Percocet] 5-325 mg tablet 1 tab PO Q6H PRN (Reason: pain) 5 Days Qty: 20 RF: 0 oxycodone 5 mg capsule 5 mg PO Q8H PRN (Reason: pain) 2 Days Qty: 6 RF: 0 Primary Care Provider: Tre Marks Referrals: Pablo Nicholson MD [STAFF PHYSICIAN] - Keep Jazmin appointment Tre Marks MD [Primary Care Provider] - 3-5 Days if not improving Disposition Disposition: Home, Self Care
[2020-11-13 16:03] LABS: Anion Gap 6 (5-15); BUN 25 mg/dL (7-18); BUN/Creat Ratio 32.2 RATIO (10-20); Calcium,Total 9.3 mg/dL (8.5-10.1); Chloride 101 mmol/L (98-107); Creatinine, Serum 0.78 mg/dL (0.55-1.02); EST Glomerular Filtration Rate 75 mL/min (>60); Est Glom Filt Rate - Afr Amer 91 mL/min (>60); Estimated Creatinine Clearance 36.16 ml/min; Glucose 133 mg/dL (74-106); Sodium Level 136 mmol/L (136-145)
[2020-11-13 16:10] LABS: Absolute Lymphocyte Count 1.84 X10^3/uL (0.83-4.51); Absolute Neutrophil Count 5.3 X10^3/uL (2.0-7.7); Basophil# 0.04 X10^3/uL; Basophil% 0.5 % (0-1); Eosinophil# 0.12 X10^3/uL; Eosinophils% 1.5 % (0-5); Hematocrit 32.1 % (37-47); Lymphocyte # 1.84 X10^3/ul (0.83-4.51); Lymphocyte % 22.4 % (19-41); Mean Corp Hgb Conc 31.2 g/dL (32-36); Mean Corpuscular Hgb 27.5 pg (27.0-32.0); Mean Corpuscular Volume 88.4 fL (81-99); Mean Platelet Vol. 8.8 fl (6.2-12.0); Monocyte# 0.82 X10^3/uL; NRBC Flagged by Analyzer 0 % (0-5); Neutrophil # 5.34 X10^3/uL (2.7-7.7); Neutrophil % 65.1 % (47-70); Platelet Count 431 K/mm3 (150-450); RBC Distribution Width CV 13.2 % (11.6-14.6); RBC Distribution Width SD 43.3 fl (35.1-43.9); Red Blood Count 3.63 M/mm3 (4.2-5.4); White Blood Count 8.2 K/mm3 (4.4-11.0)
--- NOTE | 2020-11-13 16:43 | ED.RN ---
called pharmacy regarding atb.
[2020-11-13] MEDS: Vancomycin IV 1,000 MG/200 ML BAG 200 MG IV (16:57)
[2020-11-13 17:27] VITALS: BP 147/81; PULSE 72; RESP 16; O2SAT 99
== END 2020-11-13 18:25 | disposition home or self-care (01) ==
PROVIDERS: Emergency Provider Emergency Medicine; PCP Family Medicine
DX: L03.116 Cellulitis of left lower limb (principal); I25.10 Atherosclerotic heart disease of native coronary artery without angina pectoris; I10 Essential (primary) hypertension; E78.5 Hyperlipidemia, unspecified; Z86.73 Personal history of transient ischemic attack (TIA), and cerebral infarction without residual deficits; Z79.82 Long term (current) use of aspirin; Z79.84 Long term (current) use of oral hypoglycemic drugs; Z79.899 Other long term (current) drug therapy; Z87.891 Personal history of nicotine dependence; E11.51 Type 2 diabetes mellitus with diabetic peripheral angiopathy without gangrene
CPT/HCPCS: 11042; 80048; 85025; 93971; 99283; J7050; A4216

== ENCOUNTER 2020-11-20 08:45 | Outpatient (RCR) | payer MEDICARE, SELFPAY ==
[2020-10-18 14:43] VITALS: BMI 23.0
[2020-10-23 00:25] VITALS: BP 143/32; PULSE 65; RESP 18; TEMP 36.4
[2020-10-23 09:09] VITALS: BP 140/60; PULSE 87; RESP 16; TEMP 36.2; BMI 23.0
--- NOTE | 2020-10-23 10:31 | PN.PCM_ITS ---
History of Present Illness Date of Service: 10/23/20 Chief Complaint: Left foot first, fifth digit ulceration Left fourth digit amputation site ulceration PAD History of Wound: Patient is referral from [facility]. 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 Patient has a history of smoking. Patient is diabetic as well but states is very well controlled averaging blood sugar in the low 100s. Patient denies any trauma or rubbing to start the wounds. Patient had intervention done by Dr. Nicholson on 06/12/2020. Since then patient has complaints of post procedure reperfusion pain. She states it is worse at night and she has some relief with dangling of the foot. She has had some increase in redness and swelling noted as well. Patient saw Dr. Tenorio June 26, 2020 and was started on 100mg gabapentin TID. She has noticed some improvement in her pain. 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 Patient was hospitalized 07/07/20 for worsening toe wound and blood in stool. 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 Amputation of 4th digit with debridement of 1st and 5th digit ulcerations was performed 07/08/20. 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 Patient was discharged on levaquin every other day due to impairment of her kidneys. Patient was also discharged on oxycodone. Patient relates improvement of her pain since surgery. Patient relates she is no longer taking strong pain meds. Patient continues at the wound care center for continued care ulcerations Patient had further intervention with Dr. Nicholson on October 11, 2020. Patient relates having to be transferred to [facility] for this. This was due to staffing issues. Progress of Wound: Improved with less fibrotic tissue noted brisk capillary fill time good vascular status Subjective Subjective Patient seen and examined resting comfortably. Patient denies any new pedal complaints. Patient denies any nausea, fever, chills, chest pain, shortness of breath, cough, streaking, purulence, vomiting. She still having some pain after her vascular intervention. She relates that she is only taking Percocets but once a day she has 6 left. Objective Data Objective Data Vital Signs: Vital Signs Temp Pulse Resp BP 97.1 F L 87 16 140/60 H 10/23/20 09:09 10/23/20 09:09 10/23/20 09:09 10/23/20 09:09 Oxygen Delivery Method Room Air Weight: 149 kg Body Mass Index (BMI) 23.0 Physical Exam Narrative Const alert and no apparent distress General Appearance: cooperative and comfortable Lymph Lymphatic: no lymphedema noted Resp normal respiratory effort Effort and Inspection: able to speak in complete sentences Extremity no calf tenderness, negative gume and garcia sign Lower extremity and pedal edema left greater than right General Extremity: no tenderness to palpation of joints or extremities; Negative for clubbing or cyanosis or ecchymosis or erythema Vasc Peripheral Pulses: Yes posterior tibial pulses present +1 and dorsalis pedis pulses present +1, normal capillary refill, no acute ischemic skin changes noted Skin General Skin Exam: dry skin and venous stasis, decreased hair growth noted; Negative for ecchymosis, eschar, pallor, rashes Wound Narrative: ulcers noted to left first, fifth toes and fourth amputation site as well as posterior heel No malodor, purulence, streaking, fluctuation, crepitus. Skin is atrophic and hairless. Wounds have a fibrotic base with some signs of necrosis noted to fifth toe. Fifth toe wound noted to have bone exposed. Fourth digit amputation site noted to be near bone. There is decrease in fibrotic tissue noted especially to the fourth digit amputation site. The fourth digit amputation site is also noted to be close to the metatarsal head in depth. Minimal fibrotic tissue noted to hallux wound Improvement noted to patient's coloration to lower extremity. More normal healthy pink coloration with normal capillary fill time noted to remaining digits. Pulses were able to be felt. There is postprocedural edema noted. Normal skin temperature regained. Wound noted to posterior plantar heel. There is no signs of infection nor is it deep. It goes down to the level of fascia. No erythema, edema. Pain to palpation. Does not probe to bone Healthy bleeding encounter with debridement of the fourth amputation site and hallux ulcerations Neuro Gait (Neuro): heel to toe Sensory Exam: extremities light-touch: decreased MSK Motor Exam: strength 5/5 throughout, ROM to foot and ankle joints within normal limits Psych Appearance: appropriate Attitude: calm Debridement Note Debridement Note Post-Debridement Measurements and Additional Note: Post-Debridement Measurements/Treatment WC - Nurse 1 - General Ulcer Assessment Start: 10/23/20 09:09 Freq: Status: Active Protocol: ESVIN Activity Type Activity Date Activity User E-Sign Co-Sign Detail Recorded Client Recorded Date Recorded By Document 10/23/20 09:09 DELIO [id number] 10/23/20 09:14 MW 10/23/20 09:09 - Today's Visit Information Type of service Follow-up Visit (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/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 ) Arrival Mode Ambulatory Transfer Assistance None Accompanied by grand-daughter Patient Identification Verified (Name & Yes ) Patient Requires Transmission-Based No Precautions Safety Precautions NA Finger Stick Blood Sugar(mg/dl) (if 122 indicated): Blood Sugar Stated by Patient Height and Weight Body Mass Index (BMI) 23.0 BMI Classification Normal Vital Signs Temperature (97.8 F-99.1 F) 97.1 F L Temperature Source Temporal Pulse Rate (60-100) 87 Pulse Location Monitor Respiratory Rate (12-18) 16 Respiratory rate source Observation Oxygen Delivery Method Room Air Blood Pressure (90/60-120/80) 140/60 H Blood Pressure Mean (mm Hg) 86 Source Monitor Position Sitting Blood Pressure Location Left Arm History Since Last Visit- (Skip if this is Patient's initial visit) Have you changed medications since your No last visit? Any new allergies or adverse reactions No Had a fall/change in ADL's that may No increase risk of falls Signs or symptoms of abuse and/or No neglect since last visit Have you been in the hospital since your No last visit? Has dressing in place as prescribed Yes Has compression in place as prescribed N/A Has offloadiing in place as prescribed N/A Experienced any changes in pain level or No management Left Footwear Removable Cast Walker/Walking Boot Right Footwear Regular Shoe Pain Scale: 0-10 Numeric Is Patient Pain Free? Yes - Nurse 2 - General Ulcer CM Notes Start: 10/23/20 09:09 Freq: Status: Active Protocol: Activity Type Activity Date Activity User E-Sign Co-Sign Detail Recorded Client Recorded Date Recorded By Document 10/23/20 09:27 RICHI [id number] 10/23/20 09:40 RICHI 10/23/20 09:27 Wound Center Nurse 2 #5- L HEEL FISSURE -Time 09:33 -Correct Patient Yes -Correct Side, Site, Position Yes -Correct Procedure Yes -Procedure Performed Yes -Type of Procedure Debridement -Clinical Debridement Subcutaneous -Tissue Removed Subcutaneous -Post Debridement (cm) - Length 1.4 -Post Debridement (cm) - Width 1.2 -Post Debridement (cm) - Depth 0.1 -Total Square (Post) (cm) 1.68 -Area of Debridement (cm) - Length 1.4 -Area of Debridement (cm) - Width 1.2 -Total Square (Area) (cm) 1.68 -Tunneling No -Undermining/Tunneling No -Circular Undermining No -Wound/Ulcer Outcome Not Healed -Ulcer Cleansing Rinsed/ Irrigated with Saline -Foul Odor after Cleansing No -Bioengineered Tissue No -Bleeding Controlled with Pressure -Offloading Yes -Type of Offloading Surgical Shoe -Treatment Response Procedure Tolerated Well -Debridement - Subq, 1st 20sq cm Yes #3 4th lateral toe/amp site -Time 09:29 -Correct Patient Yes -Correct Side, Site, Position Yes -Correct Procedure Yes -Procedure Performed Yes -Type of Procedure Debridement -Clinical Debridement Subcutaneous -Tissue Removed Subcutaneous -Post Debridement (cm) - Length 3 -Post Debridement (cm) - Width 1.4 -Post Debridement (cm) - Depth 0.7 -Total Square (Post) (cm) 4.2 -Area of Debridement (cm) - Length 3 -Area of Debridement (cm) - Width 1.4 -Total Square (Area) (cm) 4.2 -Tunneling No -Undermining/Tunneling No -Circular Undermining No -Wound/Ulcer Outcome Not Healed -Ulcer Cleansing Rinsed/ Irrigated with Saline -Foul Odor after Cleansing No -Bioengineered Tissue No -Bleeding Controlled with Pressure -Offloading Yes -Type of Offloading Camwalker -Treatment Response Procedure Tolerated Well -Debridement - Subq, 1st 20sq cm No #2 L 5th toe -Time 09:30 -Correct Patient Yes -Correct Side, Site, Position Yes -Correct Procedure Yes -Procedure Performed Yes -Type of Procedure Debridement -Clinical Debridement Subcutaneous -Tissue Removed Subcutaneous -Post Debridement (cm) - Length 1.1 -Post Debridement (cm) - Width 1 -Post Debridement (cm) - Depth 0.1 -Total Square (Post) (cm) 1.1 -Area of Debridement (cm) - Length 1.1 -Area of Debridement (cm) - Width 1 -Total Square (Area) (cm) 1.1 -Tunneling No -Undermining/Tunneling No -Circular Undermining No -Wound/Ulcer Outcome Not Healed -Ulcer Cleansing Rinsed/ Irrigated with Saline -Foul Odor after Cleansing No -Bioengineered Tissue No -Bleeding Controlled with Pressure -Offloading Yes -Type of Offloading Surgical Shoe -Treatment Response Procedure Tolerated Well -Debridement - Subq, 1st 20sq cm No #1 L Grt Toe -Time 09:31 -Correct Patient Yes -Correct Side, Site, Position Yes -Correct Procedure Yes -Procedure Performed Yes -Type of Procedure Debridement -Clinical Debridement Subcutaneous -Tissue Removed Subcutaneous -Post Debridement (cm) - Length 0.9 -Post Debridement (cm) - Width 0.7 -Post Debridement (cm) - Depth 0.2 -Total Square (Post) (cm) 0.63 -Area of Debridement (cm) - Length 0.9 -Area of Debridement (cm) - Width 0.7 -Total Square (Area) (cm) 0.63 -Tunneling No -Undermining/Tunneling No -Circular Undermining No -Wound/Ulcer Outcome Not Healed -Ulcer Cleansing Rinsed/ Irrigated with Saline -Foul Odor after Cleansing No -Bioengineered Tissue No -Bleeding Controlled with Pressure -Offloading Yes -Type of Offloading Surgical Shoe -Treatment Response Procedure Tolerated Well -Debridement - Subq, 1st 20sq cm No Pain Scale: 0-10 Numeric Is Patient Pain Free? Yes - Nurse 3 - General Ulcer D/C NN Start: 10/23/20 09:09 Freq: Status: Active Protocol: Activity Type Activity Date Activity User E-Sign Co-Sign Detail Recorded Client Recorded Date Recorded By Document 10/23/20 09:40 RICHI [id number] 10/23/20 09:41 RICHI 10/23/20 09:40 Wound Care Nurse 3 #5- L HEEL FISSURE -Ulcer Cleansing Rinsed/ Irrigated with Saline -Foul Odor after Cleansing No -Primary Dressing Applied C Hydrogel ($) -Primary Dressing Covered/Secured with Dry Gauze & Roll Gauze, Secured with Tape #3 4th lateral toe/amp site -Ulcer Cleansing Rinsed/ Irrigated with Saline -Foul Odor after Cleansing No -Primary Dressing Applied C Hydrogel ($) -Primary Dressing Covered/Secured with Dry Gauze & Roll Gauze, Secured with Tape #2 L 5th toe -Ulcer Cleansing Rinsed/ Irrigated with Saline -Foul Odor after Cleansing No -Primary Dressing Applied C Hydrogel ($) -Primary Dressing Covered/Secured with Dry Gauze & Roll Gauze, Secured with Tape #1 L Grt Toe -Ulcer Cleansing Rinsed/ Irrigated with Saline -Foul Odor after Cleansing No -Primary Dressing Applied C Hydrogel ($) -Primary Dressing Covered/Secured with Dry Gauze & Roll Gauze, Secured with Tape Pain Scale: 0-10 Numeric Is Patient Pain Free? Yes WC - Visit Discharge Discharge Condition Stable Ambulatory Status Ambulatory,Cane Transportation Private Auto Accompanied by granddaughter Medication Reconcilliation completed & Yes provided to patient/care provider Clinical Summary of Care Provided Yes Wound debrided: Hallux Laterality: Left Wound Grade/Stage: Luciano 1 Type of Debridement: Excisional debridement Anesthesia Used: 4% Lidocaine Solution Depth: in the subcutaneous layer Percentage of wound debrided: 100 Instrument Used: 3mm curette Tissue Removed: includes fibrous, devitalized, biofilm, callus and slough tissue Severity: Fat Layer Exposed Amount of bleeding with debridement: Mild Bleeding Controlled with: Pressure Patient tolerated procedure: Patient tolerated procedure well Additional Wound Wound debrided: Fifth digit and fourth digit amputation site Laterality: Left Wound Grade/Stage: Luciano 2 Type of Debridement: Excisional debridement Anesthesia Used: 4% Lidocaine Solution Depth: in the subcutaneous layer Percentage of wound debrided: 100 Instrument Used: 3mm curette Tissue Removed: Includes fibrous, devitalized, biofilm, callus and slough tissue Severity: Fat Layer Exposed Amount of bleeding with debridement: Mild Bleeding Controlled with: Pressure Patient tolerated procedure: Patient tolerated procedure well Assessment/Plan Assessment/Plan (1) Non-pressure chronic ulcer of other part of left foot with fat layer exposed: CODE(S): L97.522 - Non-pressure chronic ulcer of other part of left foot with fat layer exposed (2) 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 (3) Skin ulcer of left heel, limited to breakdown of skin: CODE(S): L97.421 - Non-pressure chronic ulcer of left heel and midfoot limited to breakdown of skin (4) Post-op pain: CODE(S): G89.18 - Other acute postprocedural pain (5) Ischaemic rest pain of lower extremity: CODE(S): M79.606 - Pain in leg, unspecified; I99.8 - Other disorder of circulatory system (6) Open wound of left foot: CODE(S): S91.302A - Unspecified open wound, left foot, initial encounter QUALIFIERS: Encounter type: subsequent encounter Qualified Code(s): S91.302D - Unspecified open wound, left foot, subsequent encounter (7) Foot pain, left: CODE(S): M79.672 - Pain in left foot (8) Amputated toe: CODE(S): S98.139A - Complete traumatic amputation of one unspecified lesser toe, initial encounter QUALIFIERS: Laterality: left Qualified Code(s): S98.132A - Complete traumatic amputation of one left lesser toe, initial encounter (9) History of tobacco abuse: CODE(S): Z87.891 - Personal history of nicotine dependence (10) Type 2 diabetes mellitus: CODE(S): E11.9 - Type 2 diabetes mellitus without complications QUALIFIERS: Diabetes mellitus complication detail: with peripheral angiopathy with gangrene Diabetes mellitus complication status: with circulatory complication Diabetes mellitus manager long term care insulin use: unspecified manager long term care insulin use status Qualified Code(s): E11.52 - Type 2 diabetes mellitus with diabetic peripheral angiopathy with gangrene (11) PAD (peripheral artery disease): CODE(S): I73.9 - Peripheral vascular disease, unspecified (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 Wounds are noted to have improved since intervention with Dr. Nicholson. Foot is significantly better improved from a vascular standpoint with palpable pulses and more normal coloring and temperature. There is concerned that blood flow was not restored prior to significant damage was done to the fifth digit. The fifth digit is necrotic. There is some improvement noted this week. We will continue to monitor this area. Good healthy normal bleeding was noted to other ulceration sites upon debridement. Less fibrotic tissue to 4th amputation site Recommend daily Santyl dressing changes to all ulceration sites After verbal consent was obtained sharp excisional debridement of all ulceration sites was carried out Patient noted to have peripheral vascular disease. Patient has been seeing Dr. Nicholson for management of this. Patient had intervention on 06/12/2020 with some regression of her vascular status noted. Patient had intervention again on 10/11/2020 this was performed at [facility]. Patient noted to have had a left iliofemoral profunda endorterectomy with patch angioplasty, balloon angioplasty of femororal popliteal artery as well as peroneal artery. Patient was hospitalized on 07/07/20 for worsening 4th toe ulceration and blood in stool. Patient was noted to have rapid increase in gangrene to 4th digit. Amputation of 4th digit and debridement of 1st and 5th digit was performed 07/08/20. OM was confirmed with PsAg. Patient was discharged on Levaquin every other day due to kidney function she has since finished. Reviewed proper wound care with patient. Discussed with the patient the importance of offloading the sites with wide enough shoe gear if she is to be wearing shoes, proper diet, good blood sugar control. Patient has offloading boot. Discussed with the patient all concerning signs and symptoms to watch out for and to contact office if he either presents. X-ray from 10/05/2020 showed amputation of the fourth digit. There is no other bony changes consistent with osteomyelitis noted to remaining digits at ulceration sites. There is no fractures or soft tissue emphysema noted cultures obtained 10/05/2020 demonstrated Pseudomonas aeruginosa. Discussed with the patient that given her restored vascular status that there is a chance that she would be able to now heal all of her wounds. Discussed that there is a possibility that there has been too much damage done to the fifth digit in order to save it. We will continue to monitor closely. Discussed with patient possibility of amputation of the fifth digit. Discussed that patient has several weeks to make a decision as we continue to monitor wound to make a decision. Discussed this with patient as well as family members. Discussed that there is every possibility now that she could have the blood flow to heal the wounds. We will continue to monitor closely. Patient is to follow-up in 1 week. This note was generated with [employer] software. It may contain incorrect words, spelling, and punctuation that were not noted in checking the note before signing.
[2020-10-30 09:04] VITALS: BP 167/56; PULSE 58; RESP 16; TEMP 36.3; BMI 23.0
--- NOTE | 2020-10-31 10:19 | PN.PCM_ITS ---
History of Present Illness Date of Service: 10/30/20 Chief Complaint: Left foot first, fifth digit ulceration Left fourth digit amputation site ulceration PAD History of Wound: Patient is referral from [facility]ud[facility] 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 Patient has a history of smoking. Patient is diabetic as well but states is very well controlled averaging blood sugar in the low 100s. Patient denies any trauma or rubbing to start the wounds. Patient had intervention done by Dr. Nicholson on 06/12/2020. Since then patient has complaints of post procedure reperfusion pain. She states it is worse at night and she has some relief with dangling of the foot. She has had some increase in redness and swelling noted as well. Patient saw Dr. Tenorio June 26, 2020 and was started on 100mg gabapentin TID. She has noticed some improvement in her pain. 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 Patient was hospitalized 07/07/20 for worsening toe wound and blood in stool. 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 Amputation of 4th digit with debridement of 1st and 5th digit ulcerations was performed 07/08/20. 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 Patient was discharged on levaquin every other day due to impairment of her kidneys. Patient was also discharged on oxycodone. Patient relates improvement of her pain since surgery. Patient relates she is no longer taking strong pain meds. Patient continues at the wound care center for continued care ulcerations Patient had further intervention with Dr. Nicholson on October 11, 2020. Patient relates having to be transferred to [facility] for this. This was due to staffing issues. She has follow-up appointment with Dr. Nicholson on Thursday, November 07 Progress of Wound: Improved with less fibrotic tissue noted brisk capillary fill time good vascular status. Wound to heel has healed Subjective Subjective Patient seen and examined resting comfortably. Patient denies any new pedal complaints. Patient denies any nausea, fever, chills, chest pain, shortness of breath, cough, streaking, purulence, vomiting. Patient relates that she of and hit her head the other day and has significant bruising to her face from this but no other injuries Objective Data Objective Data Vital Signs: Vital Signs Temp Pulse Resp BP 97.3 F L 58 L 16 167/56 H 10/30/20 09:04 10/30/20 09:04 10/30/20 09:04 10/30/20 09:04 Oxygen Delivery Method Room Air Weight: 149 kg Body Mass Index (BMI) 23.0 Physical Exam Narrative Const alert and no apparent distress General Appearance: cooperative and comfortable Lymph Lymphatic: no lymphedema noted Resp normal respiratory effort Effort and Inspection: able to speak in complete sentences Extremity no calf tenderness, negative gume and garcia sign Lower extremity and pedal edema left greater than right General Extremity: no tenderness to palpation of joints or extremities; Negative for clubbing or cyanosis or ecchymosis or erythema Vasc Peripheral Pulses: Yes posterior tibial pulses present +1 and dorsalis pedis pulses present +1, normal capillary refill, no acute ischemic skin changes noted Skin General Skin Exam: dry skin and venous stasis, decreased hair growth noted; Negative for ecchymosis, eschar, pallor, rashes Wound Narrative: ulcers noted to left first, fifth toes and fourth amputation site as well as posterior heel No malodor, purulence, streaking, fluctuation, crepitus. Skin is atrophic and hairless. Wounds have a fibrotic base with some signs of necrosis noted to fifth toe this is slightly improved compared to last week. Fifth toe wound noted to have bone exposed. Fourth digit amputation site noted to be near bone. There is decrease in fibrotic tissue noted especially to the fourth digit amputation site. The fourth digit amputation site is also noted to be close to the metatarsal head in depth. Minimal fibrotic tissue noted to hallux wound Improvement noted to patient's coloration to lower extremity. More normal healthy pink coloration with normal capillary fill time noted to remaining digits. Pulses were able to be felt. There is postprocedural edema noted this is slightly improved from last week. Normal skin temperature regained. Wound noted to posterior plantar heel has healed Healthy bleeding encounter with debridement of the fourth amputation site and hallux ulcerations Neuro Gait (Neuro): heel to toe Sensory Exam: extremities light-touch: decreased MSK Motor Exam: strength 5/5 throughout, ROM to foot and ankle joints within normal limits Psych Appearance: appropriate Attitude: calm Debridement Note Debridement Note Post-Debridement Measurements and Additional Note: Post-Debridement Measurements/Treatment WC - Nurse 1 - General Ulcer Assessment Start: 10/23/20 09:09 Freq: Status: Active Protocol: WC.LOWEXT Activity Type Activity Date Activity User E-Sign Co-Sign Detail Recorded Client Recorded Date Recorded By Document 10/23/20 09:09 MW [id number] 10/23/20 09:14 MW Document 10/30/20 09:04 BMF [id number] 10/30/20 09:20 BMF Edit Result 10/30/20 09:04 BMF (1) [id number] 10/30/20 09:21 BMF (1) Pulse Rate (60-100) => 58 L Blood Pressure (90/60-120/80) => 167/56 H Blood Pressure Mean (mm Hg) => 93 10/23/20 10/30/20 09:09 09:04 WC - Today's Visit Information Type of service Follow-up Visit Follow-up Visit (Physician/CHILD PSYCHOLOGY TEACHER (Physician/CHILD PSYCHOLOGY TEACHER ) ) Arrival Mode Ambulatory Ambulatory,Cane Transfer Assistance None None Accompanied by grand-daughter grand daughter Patient Identification Verified (Name & Yes Yes ) Patient Requires Transmission-Based No No Precautions Safety Precautions NA Finger Stick Blood Sugar(mg/dl) (if 122 indicated): Blood Sugar Stated by Patient Height and Weight Body Mass Index (BMI) 23.0 23.0 BMI Classification Normal Normal Vital Signs Temperature (97.8 F-99.1 F) 97.1 F L 97.3 F L Temperature Source Temporal Oral Pulse Rate (60-100) 87 58 L Pulse Location Monitor Monitor Respiratory Rate (12-18) 16 16 Respiratory rate source Observation Observation Oxygen Delivery Method Room Air Room Air Blood Pressure (90/60-120/80) 140/60 H 167/56 H Blood Pressure Mean (mm Hg) 86 93 Source Monitor Monitor Position Sitting Sitting Blood Pressure Location Left Arm Left Arm History Since Last Visit- (Skip if this is Patient's initial visit) Have you changed medications since your No No last visit? Any new allergies or adverse reactions No No Had a fall/change in ADL's that may No Yes increase risk of falls Signs or symptoms of abuse and/or No No neglect since last visit Have you been in the hospital since your No No last visit? Has dressing in place as prescribed Yes Yes Has compression in place as prescribed N/A N/A Has offloadiing in place as prescribed N/A N/A Experienced any changes in pain level or No No management Left Footwear Removable Cast Walker/Walking Boot Right Footwear Regular Shoe Pain Scale: 0-10 Numeric Is Patient Pain Free? Yes Yes WC - Nurse 1 - General Ulcer Measurement Start: 10/23/20 09:09 Freq: Status: Active Protocol: Activity Type Activity Date Activity User E-Sign Co-Sign Detail Recorded Client Recorded Date Recorded By Document 10/30/20 09:04 [facility] [id number] 10/30/20 09:20 [facility] 10/30/20 09:04 Wound Center Nurse 1 #5- L HEEL FISSURE -Combined with other wound No -Current Size (cm) - Length 1 -Current Size (cm) - Width 0.1 -Current Size (cm) - Depth 0.1 -Total Square Cm 0.1 -Photo Taken No -Epithelialization None Present -Tunneling No -Undermining/Tunneling No -Circular Undermining No -Exudate Amt None Present -Wound Margin Distinct, Outline Attached -Granulation Amt Small (1-33%) -Granulation Quality Red -Slough/Fibrin Yes -Necrosis Amt Medium (34-66%) -Necrotic Tissue Type Adherent Slough -Texture (Dot-wound Skin Appearance) Callus,Scarring -Moisture (Dot-wound Skin Appearance) Assessed,Dry/ Scaly -Color (Dot-wound Skin Appearance) Assessed -Temperature (Dot-wound Skin No Abnormality Appearance) (Pt Warm) -Tenderness on Palpation (Dot-wound No Skin Appearance) -Ulcer Cleansing Rinsed/ Irrigated with Saline -Foul Odor after Cleansing No -Anesthetic Used 5% Lidocaine Gel #3 4th lateral toe/amp site -Combined with other wound No -Current Size (cm) - Length 3.1 -Current Size (cm) - Width 0.8 -Current Size (cm) - Depth 0.4 -Total Square Cm 2.48 -Photo Taken No -Epithelialization None Present -Tunneling No -Undermining/Tunneling No -Circular Undermining No -Exudate Amt Medium -Exudate Type Serosanguineous -Wound Margin Distinct, Outline Attached -Granulation Amt Small (1-33%) -Granulation Quality Red -Slough/Fibrin Yes -Necrosis Amt Large (67-100%) -Necrotic Tissue Type Adherent Slough -Texture (Dot-wound Skin Appearance) Assessed, Localized Edema ,Scarring -Moisture (Dot-wound Skin Appearance) Assessed, Maceration -Color (Dot-wound Skin Appearance) Assessed, Erythema,Palor -Temperature (Dot-wound Skin No Abnormality Appearance) (Pt Warm) -Tenderness on Palpation (Dot-wound No Skin Appearance) -Ulcer Cleansing Rinsed/ Irrigated with Saline -Foul Odor after Cleansing No -Anesthetic Used 5% Lidocaine Gel #2 L 5th toe -Combined with other wound No -Current Size (cm) - Length 1.2 -Current Size (cm) - Width 1 -Current Size (cm) - Depth 0.2 -Total Square Cm 1.2 -Photo Taken No -Epithelialization None Present -Tunneling No -Undermining/Tunneling No -Circular Undermining No -Exudate Amt Medium -Exudate Type Serosanguineous -Wound Margin Distinct, Outline Attached -Granulation Amt None Present (0 %) -Slough/Fibrin Yes -Necrosis Amt Large (67-100%) -Necrotic Tissue Type Adherent Slough -Texture (Dot-wound Skin Appearance) Assessed, Scarring -Moisture (Dot-wound Skin Appearance) Assessed -Color (Dot-wound Skin Appearance) Assessed, Erythema -Temperature (Dot-wound Skin No Abnormality Appearance) (Pt Warm) -Tenderness on Palpation (Dot-wound No Skin Appearance) -Ulcer Cleansing Rinsed/ Irrigated with Saline -Foul Odor after Cleansing No -Anesthetic Used 5% Lidocaine Gel #1 L Grt Toe -Combined with other wound No -Current Size (cm) - Length 0.8 -Current Size (cm) - Width 0.6 -Current Size (cm) - Depth 0.3 -Total Square Cm 0.48 -Photo Taken No -Epithelialization None Present -Tunneling No -Undermining/Tunneling No -Circular Undermining No -Exudate Amt Small -Exudate Type Serosanguineous -Wound Margin Distinct, Outline Attached -Granulation Amt None Present (0 %) -Slough/Fibrin Yes -Necrosis Amt Large (67-100%) -Necrotic Tissue Type Adherent Slough -Texture (Dot-wound Skin Appearance) Assessed, Scarring -Moisture (Dot-wound Skin Appearance) Assessed,Dry/ Scaly -Color (Dot-wound Skin Appearance) Assessed -Temperature (Dot-wound Skin No Abnormality Appearance) (Pt Warm) -Tenderness on Palpation (Dot-wound No Skin Appearance) -Ulcer Cleansing Rinsed/ Irrigated with Saline -Foul Odor after Cleansing No -Anesthetic Used 5% Lidocaine Gel WC - Nurse 2 - General Ulcer CM Notes Start: 10/23/20 09:09 Freq: Status: Active Protocol: Activity Type Activity Date Activity User E-Sign Co-Sign Detail Recorded Client Recorded Date Recorded By Document 10/23/20 09:27 JF [id number] 10/23/20 09:40 Document 10/30/20 09:32 [id number] 10/30/20 09:48 10/23/20 10/30/20 09:27 09:32 Wound Center Nurse 2 #5- L HEEL FISSURE -Time 09:33 09:32 -Correct Patient Yes No -Correct Side, Site, Position Yes No -Correct Procedure Yes No -Procedure Performed Yes No -Type of Procedure Debridement -Clinical Debridement Subcutaneous -Tissue Removed Subcutaneous -Post Debridement (cm) - Length 1.4 0 -Post Debridement (cm) - Width 1.2 0 -Post Debridement (cm) - Depth 0.1 0 -Total Square (Post) (cm) 1.68 0 -Area of Debridement (cm) - Length 1.4 0 -Area of Debridement (cm) - Width 1.2 0 -Total Square (Area) (cm) 1.68 0 -Tunneling No No -Undermining/Tunneling No No -Circular Undermining No No -Wound/Ulcer Outcome Not Healed Healed- Epithelialized -Ulcer Cleansing Rinsed/ Rinsed/ Irrigated with Irrigated with Saline Saline -Foul Odor after Cleansing No No -Bioengineered Tissue No No -Bleeding Controlled with Pressure Pressure -Offloading Yes Yes -Type of Offloading Surgical Shoe Surgical Shoe -Treatment Response Procedure Procedure Tolerated Well Tolerated Well -Debridement - Subq, 1st 20sq cm Yes No #3 4th lateral toe/amp site -Time 09:29 09:33 -Correct Patient Yes Yes -Correct Side, Site, Position Yes Yes -Correct Procedure Yes Yes -Procedure Performed Yes Yes -Type of Procedure Debridement Debridement -Clinical Debridement Subcutaneous Subcutaneous -Tissue Removed Subcutaneous Subcutaneous -Post Debridement (cm) - Length 3 2.8 -Post Debridement (cm) - Width 1.4 0.9 -Post Debridement (cm) - Depth 0.7 0.7 -Total Square (Post) (cm) 4.2 2.52 -Area of Debridement (cm) - Length 3 2.8 -Area of Debridement (cm) - Width 1.4 0.9 -Total Square (Area) (cm) 4.2 2.52 -Tunneling No No -Undermining/Tunneling No No -Circular Undermining No No -Wound/Ulcer Outcome Not Healed Not Healed -Ulcer Cleansing Rinsed/ Irrigated with Saline -Foul Odor after Cleansing No No -Bioengineered Tissue No No -Bleeding Controlled with Pressure Pressure -Offloading Yes Yes -Type of Offloading Camwalker Surgical Shoe -Treatment Response Procedure Procedure Tolerated Well Tolerated Well -Debridement - Subq, 1st 20sq cm No Yes #2 L 5th toe -Time 09:30 09:33 -Correct Patient Yes Yes -Correct Side, Site, Position Yes Yes -Correct Procedure Yes Yes -Procedure Performed Yes Yes -Type of Procedure Debridement Debridement -Clinical Debridement Subcutaneous Subcutaneous -Tissue Removed Subcutaneous Subcutaneous -Post Debridement (cm) - Length 1.1 1.1 -Post Debridement (cm) - Width 1 0.8 -Post Debridement (cm) - Depth 0.1 0.2 -Total Square (Post) (cm) 1.1 0.88 -Area of Debridement (cm) - Length 1.1 1.1 -Area of Debridement (cm) - Width 1 0.8 -Total Square (Area) (cm) 1.1 0.88 -Tunneling No No -Undermining/Tunneling No No -Circular Undermining No No -Wound/Ulcer Outcome Not Healed Not Healed -Ulcer Cleansing Rinsed/ Rinsed/ Irrigated with Irrigated with Saline Saline -Foul Odor after Cleansing No No -Bioengineered Tissue No No -Bleeding Controlled with Pressure Pressure -Offloading Yes Yes -Type of Offloading Surgical Shoe Surgical Shoe -Treatment Response Procedure Procedure Tolerated Well Tolerated Well -Debridement - Subq, 1st 20sq cm No No #1 L Grt Toe -Time 09: 09:34 -Correct Patient Yes Yes -Correct Side, Site, Position Yes Yes -Correct Procedure Yes Yes -Procedure Performed Yes Yes -Type of Procedure Debridement Debridement -Clinical Debridement Subcutaneous Subcutaneous -Tissue Removed Subcutaneous Subcutaneous -Post Debridement (cm) - Length 0.9 0.9 -Post Debridement (cm) - Width 0.7 0.7 -Post Debridement (cm) - Depth 0.2 0.4 -Total Square (Post) (cm) 0.63 0.63 -Area of Debridement (cm) - Length 0.9 0.9 -Area of Debridement (cm) - Width 0.7 0.7 -Total Square (Area) (cm) 0.63 0.63 -Tunneling No No -Undermining/Tunneling No No -Circular Undermining No No -Wound/Ulcer Outcome Not Healed Not Healed -Ulcer Cleansing Rinsed/ Rinsed/ Irrigated with Irrigated with Saline Saline -Foul Odor after Cleansing No No -Bioengineered Tissue No No -Bleeding Controlled with Pressure -Offloading Yes Yes -Type of Offloading Surgical Shoe Surgical Shoe -Treatment Response Procedure Procedure Tolerated Well Tolerated Well -Debridement - Subq, 1st 20sq cm No No Pain Scale: 0-10 Numeric Is Patient Pain Free? Yes Yes WC - Nurse 3 - General Ulcer D/C NN Start: 10/23/20 09:09 Freq: Status: Active Protocol: Activity Type Activity Date Activity User E-Sign Co-Sign Detail Recorded Client Recorded Date Recorded By Document 10/23/20 09:40 [id number] 10/23/20 09:41 Document 10/30/20 09:55 DL [id number] 10/30/20 09:58 DL 10/23/20 10/30/20 09:40 09:55 Wound Care Nurse 3 #5- L HEEL FISSURE -Ulcer Cleansing Rinsed/ Irrigated with Saline -Foul Odor after Cleansing No -Primary Dressing Applied C Hydrogel ($) -Primary Dressing Covered/Secured with Dry Gauze & Roll Gauze, Secured with Tape #3 4th lateral toe/amp site -Ulcer Cleansing Rinsed/ Wound Cleanser Irrigated with Saline -Foul Odor after Cleansing No No -Primary Dressing Applied C Hydrogel ($) -Other Dressing hydrogel today -Primary Dressing Covered/Secured with Dry Gauze & Dry Gauze & Roll Gauze, Roll Gauze, Secured with Secured with Tape Tape #2 L 5th toe -Ulcer Cleansing Rinsed/ Rinsed/ Irrigated with Irrigated with Saline Saline -Foul Odor after Cleansing No No -Primary Dressing Applied C Hydrogel ($) -Other Dressing hydrogel today -Primary Dressing Covered/Secured with Dry Gauze & Dry Gauze & Roll Gauze, Roll Gauze, Secured with Secured with Tape Tape #1 L Grt Toe -Ulcer Cleansing Rinsed/ Rinsed/ Irrigated with Irrigated with Saline Saline -Foul Odor after Cleansing No No -Primary Dressing Applied C Hydrogel ($) -Other Dressing hydrogel today -Primary Dressing Covered/Secured with Dry Gauze & Dry Gauze & Roll Gauze, Roll Gauze, Secured with Secured with Tape Tape Treatment Response Procedure Tolerated Well Pain Scale: 0-10 Numeric Is Patient Pain Free? Yes Yes WC - Visit Discharge Discharge Condition Stable Stable Ambulatory Status Ambulatory,Cane Ambulatory Transportation Private Auto Private Auto Accompanied by granddaughter Medication Reconcilliation completed & Yes provided to patient/care provider Clinical Summary of Care Provided Yes Notes: Pt to resume Paty at home Facility Type Home Health Orders Sent Yes Wound debrided: Fifth toe and fourth digit amputation site Laterality: Left Wound Grade/Stage: Luciano 2 Type of Debridement: Excisional debridement Anesthesia Used: 4% Lidocaine Solution Depth: to bone Percentage of wound debrided: 100 Instrument Used: 3mm curette Tissue Removed: includes fibrous, devitalized, biofilm, callus and slough tissue Severity: Fat Layer Exposed (Debrided to subcu) Amount of bleeding with debridement: Mild Bleeding Controlled with: Pressure Patient tolerated procedure: Patient tolerated procedure well Additional Wound Wound debrided: Hallux Laterality: Left Wound Grade/Stage: Luciano 1 Type of Debridement: Excisional debridement Anesthesia Used: 4% Lidocaine Solution Depth: in the subcutaneous layer Percentage of wound debrided: 100 Instrument Used: 3mm curette Tissue Removed: Includes fibrous, devitalized, biofilm, callus and slough tissue Severity: Fat Layer Exposed Amount of bleeding with debridement: Mild Bleeding Controlled with: Pressure Patient tolerated procedure: Patient tolerated procedure well Assessment/Plan Assessment/Plan (1) Non-pressure chronic ulcer of other part of left foot with fat layer exposed: CODE(S): L97.522 - Non-pressure chronic ulcer of other part of left foot with fat layer exposed (2) 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 (3) Skin ulcer of left heel, limited to breakdown of skin: CODE(S): L97.421 - Non-pressure chronic ulcer of left heel and midfoot limited to breakdown of skin (4) Post-op pain: CODE(S): G89.18 - Other acute postprocedural pain (5) Ischaemic rest pain of lower extremity: CODE(S): M79.606 - Pain in leg, unspecified; I99.8 - Other disorder of circulatory system (6) Open wound of left foot: CODE(S): S91.302A - Unspecified open wound, left foot, initial encounter QUALIFIERS: Encounter type: subsequent encounter Qualified Code(s): S91.302D - Unspecified open wound, left foot, subsequent encounter (7) Foot pain, left: CODE(S): M79.672 - Pain in left foot (8) Amputated toe: CODE(S): S98.139A - Complete traumatic amputation of one unspecified lesser toe, initial encounter QUALIFIERS: Laterality: left Qualified Code(s): S98.132A - Complete traumatic amputation of one left lesser toe, initial encounter (9) History of tobacco abuse: CODE(S): Z87.891 - Personal history of nicotine dependence (10) Type 2 diabetes mellitus: CODE(S): E11.9 - Type 2 diabetes mellitus without complications QUALIFIERS: Diabetes mellitus half-way insulin use: unspecified 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 Wounds are noted to have improved since intervention with Dr. Nicholson. Foot is significantly better improved from a vascular standpoint with palpable pulses and more normal coloring and temperature. There is concerned that blood flow was not restored prior to significant damage was done to the fifth digit. The fifth digit is slightly less necrotic. There is some improvement noted this week. We will continue to monitor this area. Good healthy normal bleeding was noted to other ulceration sites upon debridement. Significantly less fibrotic tissue to 4th amputation site. Heel wound has healed. Patient is also noted to have hit her head from a fall from a chair with significant facial bruising and no other injuries. Recommend daily Santyl dressing changes to all ulceration sites After verbal consent was obtained sharp excisional debridement of all ulceration sites was carried out Patient noted to have peripheral vascular disease. Patient has been seeing Dr. Nicholson for management of this. Patient had intervention on 06/12/2020 with some regression of her vascular status noted. Patient had intervention again on 10/11/2020 this was performed at [facility]. Patient noted to have had a left iliofemoral profunda endorterectomy with patch angioplasty, balloon angioplasty of femororal popliteal artery as well as peroneal artery. Patient was hospitalized on 07/07/20 for worsening 4th toe ulceration and blood in stool. Patient was noted to have rapid increase in gangrene to 4th digit. Amputation of 4th digit and debridement of 1st and 5th digit was performed 07/08/20. OM was confirmed with PsAg. Patient was discharged on Levaquin every other day due to kidney function she has since finished. Reviewed proper wound care with patient. Discussed with the patient the importance of offloading the sites with wide enough shoe gear if she is to be wearing shoes, proper diet, good blood sugar control. Patient has offloading boot. Discussed with the patient all concerning signs and symptoms to watch out for and to contact office if he either presents. X-ray from 10/05/2020 showed amputation of the fourth digit. There is no other bony changes consistent with osteomyelitis noted to remaining digits at ulceration sites. There is no fractures or soft tissue emphysema noted cultures obtained 10/05/2020 demonstrated Pseudomonas aeruginosa. Discussed with the patient that given her restored vascular status that there is a chance that she would be able to now heal all of her wounds. Discussed that there is a possibility that there has been too much damage done to the fifth digit in order to save it. We will continue to monitor closely. Discussed with patient possibility of amputation of the fifth digit. Discussed that patient has several weeks to make a decision as we continue to monitor wound to make a d ecision. Discussed this with patient as well as family members. Discussed that there is every possibility now that she could have the blood flow to heal the wounds. We will continue to monitor closely. Will begin process for theraskin skin graft application to 4th toe amputation site ulceration. Patient is to follow-up in 1 week. This note was generated with Dragon dictation software. It may contain incorrect words, spelling, and punctuation that were not noted in checking the note before [id number]
[2020-11-06 09:24] VITALS: BP 134/44; PULSE 66; RESP 16; TEMP 36.5; BMI 23.0
--- NOTE | 2020-11-06 11:00 | PN.PCM_ITS ---
History of Present Illness Date of Service: 11/06/20 Chief Complaint: Left foot first, fifth digit ulceration Left fourth digit amputation site ulceration PAD History of Wound: Patient is referral from Dr. [facility]ud[facility]. 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 Patient has a history of smoking. Patient is diabetic as well but states is very well controlled averaging blood sugar in the low 100s. Patient denies any trauma or rubbing to start the wounds. Patient had intervention done by Dr. Nicholson on 06/12/2020. Since then patient has complaints of post procedure reperfusion pain. She states it is worse at night and she has some relief with dangling of the foot. She has had some increase in redness and swelling noted as well. Patient saw Dr. Tenorio June 26, 2020 and was started on 100mg gabapentin TID. She has noticed some improvement in her pain. 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 Patient was hospitalized 07/07/20 for worsening toe wound and blood in stool. 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 Amputation of 4th digit with debridement of 1st and 5th digit ulcerations was performed 07/08/20. 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 Patient was discharged on levaquin every other day due to impairment of her kidneys. Patient was also discharged on oxycodone. Patient relates improvement of her pain since surgery. Patient relates she is no longer taking strong pain meds. Patient continues at the wound care center for continued care ulcerations Patient had further intervention with Dr. Nicholson on October 11, 2020. Patient relates having to be transferred to [facility] for this. This was due to staffing issues. She has follow-up appointment with Dr. Nicholson on November 07 Progress of Wound: Overall improvement noted Subjective Subjective Patient seen and examined resting comfortably. Patient denies any new pedal complaints. Patient denies any nausea, fever, chills, chest pain, shortness of breath, cough, streaking, purulence, vomiting. Patient complains of continued swelling to left lower extremity with some pain. She is not needing to use Percocet to control that at this time Objective Data Objective Data Vital Signs: Vital Signs Temp Pulse Resp BP 97.7 F L 66 16 134/44 H 11/06/20 09:24 11/06/20 09:24 11/06/20 09:24 11/06/20 09:24 Oxygen Delivery Method Room Air Weight: 149 kg Body Mass Index (BMI) 23.0 Physical Exam Narrative Const alert and no apparent distress General Appearance: cooperative and comfortable Lymph Lymphatic: no lymphedema noted Resp normal respiratory effort Effort and Inspection: able to speak in complete sentences Extremity no calf tenderness, negative gume and garcia sign Lower extremity and pedal edema left greater than right General Extremity: no tenderness to palpation of joints or extremities; Negative for clubbing or cyanosis or ecchymosis or erythema Vasc Peripheral Pulses: Yes posterior tibial pulses present +1 and dorsalis pedis pulses present +1, normal capillary refill, no acute ischemic skin changes noted. Edema noted to left lower extremity. Capillary fill time less than 3 seconds to all remaining digits left foot Skin General Skin Exam: dry skin and venous stasis, decreased hair growth noted; Negative for ecchymosis, eschar, pallor, rashes Wound Narrative: ulcers noted to left first, fifth toes and fourth amputation site as well as posterior heel No malodor, purulence, streaking, fluctuation, crepitus. Skin is atrophic and hairless. Wounds have a fibrotic base with some signs of necrosis noted to fifth toe this is slightly improved compared to last week. Fifth toe wound noted to have bone exposed with less necrotic fibrotic tissue noted. Fourth digit amputation site noted to probe to bone at one area. There is decrease in fibrotic tissue noted especially to the fourth digit amputation site. There is minimal erythema noted to the fourth amputation site area. Fibrotic tissue noted to hallux wound Improvement noted to patient's coloration to lower extremity. More normal healthy pink coloration with normal capillary fill time noted to remaining digits. Pulses were able to be felt. There is postprocedural edema noted this is slightly improved from last week. Normal skin temperature regained. Foot is warm Wound noted to posterior plantar heel remains healed Neuro Gait (Neuro): heel to toe Sensory Exam: extremities light-touch: decreased MSK Motor Exam: strength 5/5 throughout, ROM to foot and ankle joints within normal limits Psych Appearance: appropriate Attitude: calm Debridement Note Debridement Note Post-Debridement Measurements and Additional Note: Post-Debridement Measurements/Treatment WC - Nurse 1 - General Ulcer Assessment Start: 10/23/20 09:09 Freq: Status: Active Protocol: WC.LOWEXT Activity Type Activity Date Activity User E-Sign Co-Sign Detail Recorded Client Recorded Date Recorded By Document 10/23/20 09:09 MW [id number] 10/23/20 09:14 MW Document 10/30/20 09:04 BMF [id number] 10/30/20 09:20 BMF Edit Result 10/30/20 09:04 BMF (1) [id number] 10/30/20 09:21 BMF Document 11/06/20 09:24 DL [id number] 11/06/20 09:31 DL (1) Pulse Rate (60-100) => 58 L Blood Pressure (90/60-120/80) => 167/56 H Blood Pressure Mean (mm Hg) => 93 10/23/20 10/30/20 11/06/20 09:09 09:04 09:24 WC - Today's Visit Information Type of service Follow-up Visit Follow-up Visit Follow-up Visit (Physician/AIRCRAFT CABIN CLEANER (Physician/AIRCRAFT CABIN CLEANER (Physician/AIRCRAFT CABIN CLEANER ) ) ) Arrival Mode Ambulatory Ambulatory,Cane Ambulatory Transfer Assistance None None None Accompanied by grand-daughter grand daughter daughter Patient Identification Verified (Name & Yes Yes Yes ) Patient Requires Transmission-Based No No No Precautions Safety Precautions NA Finger Stick Blood Sugar(mg/dl) (if 122 indicated): Blood Sugar Stated by Patient Height and Weight Body Mass Index (BMI) 23.0 23.0 23.0 BMI Classification Normal Normal Normal Vital Signs Temperature (97.8 F-99.1 F) 97.1 F L 97.3 F L 97.7 F L Temperature Source Temporal Oral Temporal Pulse Rate (60-100) 87 58 L 66 Pulse Location Monitor Monitor Monitor Respiratory Rate (12-18) 16 16 16 Respiratory rate source Observation Observation Observation Oxygen Delivery Method Room Air Room Air Room Air Blood Pressure (90/60-120/80) 140/60 H 167/56 H 134/44 H Blood Pressure Mean (mm Hg) 86 93 74 Source Monitor Monitor Monitor Position Sitting Sitting Sitting Blood Pressure Location Left Arm Left Arm Right Arm History Since Last Visit- (Skip if this is Patient's initial visit) Have you changed medications since your No No No last visit? Any new allergies or adverse reactions No No No Had a fall/change in ADL's that may No Yes No increase risk of falls Signs or symptoms of abuse and/or No No No neglect since last visit Have you been in the hospital since your No No No last visit? Has dressing in place as prescribed Yes Yes Yes Has compression in place as prescribed N/A N/A N/A Has offloadiing in place as prescribed N/A N/A Yes Experienced any changes in pain level or No No No management Left Footwear Removable Cast Surgical Shoe Walker/Walking with pressure Boot relief insole Right Footwear Regular Shoe Regular Shoe Pain Scale: 0-10 Numeric Is Patient Pain Free? Yes Yes Yes WC - Nurse 1 - General Ulcer Measurement Start: 10/23/20 09:09 Freq: Status: Active Protocol: Activity Type Activity Date Activity User E-Sign Co-Sign Detail Recorded Client Recorded Date Recorded By Document 10/30/20 09:04 [facility] [id number] 10/30/20 09:20 BMF Document 11/06/20 09:24 DL [id number] 11/06/20 09:31 DL 10/30/20 11/06/20 09:04 09:24 Wound Center Nurse 1 #5- L HEEL FISSURE -Combined with other wound No -Current Size (cm) - Length 1 -Current Size (cm) - Width 0.1 -Current Size (cm) - Depth 0.1 -Total Square Cm 0.1 -Photo Taken No -Epithelialization None Present -Tunneling No -Undermining/Tunneling No -Circular Undermining No -Exudate Amt None Present -Wound Margin Distinct, Outline Attached -Granulation Amt Small (1-33%) -Granulation Quality Red -Slough/Fibrin Yes -Necrosis Amt Medium (34-66%) -Necrotic Tissue Type Adherent Slough -Texture (Dot-wound Skin Appearance) Callus,Scarring -Moisture (Dot-wound Skin Appearance) Assessed,Dry/ Scaly -Color (Dot-wound Skin Appearance) Assessed -Temperature (Dot-wound Skin No Abnormality Appearance) (Pt Warm) -Tenderness on Palpation (Dot-wound No Skin Appearance) -Ulcer Cleansing Rinsed/ Irrigated with Saline -Foul Odor after Cleansing No -Anesthetic Used 5% Lidocaine Gel #3 4th lateral toe/amp site -Combined with other wound No No -Current Size (cm) - Length 3.1 2.8 -Current Size (cm) - Width 0.8 1 -Current Size (cm) - Depth 0.4 0.8 -Total Square Cm 2.48 2.8 -Photo Taken No No -Epithelialization None Present None Present -Tunneling No No -Undermining/Tunneling No No -Circular Undermining No No -Exudate Amt Medium Medium -Exudate Type Serosanguineous Serosanguineous -Wound Margin Distinct, Distinct, Outline Outline Attached Attached -Granulation Amt Small (1-33%) Medium (34-66%) -Granulation Quality Red Red -Slough/Fibrin Yes Yes -Necrosis Amt Large (67-100%) Medium (34-66%) -Necrotic Tissue Type Adherent Slough Adherent Slough -Texture (Dot-wound Skin Appearance) Assessed, Assessed, Localized Edema Scarring ,Scarring -Moisture (Dot-wound Skin Appearance) Assessed, Assessed, Maceration Maceration -Color (Dot-wound Skin Appearance) Assessed, Assessed, Erythema,Palor Erythema,Palor -Temperature (Dot-wound Skin No Abnormality No Abnormality Appearance) (Pt Warm) (Pt Warm) -Tenderness on Palpation (Dot-wound No Yes Skin Appearance) -Ulcer Cleansing Rinsed/ soap water Irrigated with Saline -Foul Odor after Cleansing No No -Anesthetic Used 5% Lidocaine 5% Lidocaine Gel Gel #2 L 5th toe -Combined with other wound No No -Current Size (cm) - Length 1.2 1.1 -Current Size (cm) - Width 1 0.8 -Current Size (cm) - Depth 0.2 0.2 -Total Square Cm 1.2 0.88 -Photo Taken No No -Epithelialization None Present None Present -Tunneling No No -Undermining/Tunneling No No -Circular Undermining No No -Exudate Amt Medium Medium -Exudate Type Serosanguineous Serosanguineous -Wound Margin Distinct, Distinct, Outline Outline Attached Attached -Granulation Amt None Present (0 None Present (0 %) %) -Slough/Fibrin Yes Yes -Necrosis Amt Large (67-100%) Small (1-33%) -Necrotic Tissue Type Adherent Slough Adherent Slough -Texture (Dot-wound Skin Appearance) Assessed, Assessed, Scarring Scarring -Moisture (Dot-wound Skin Appearance) Assessed Assessed, Maceration -Color (Dot-wound Skin Appearance) Assessed, Assessed, Erythema Erythema,Palor -Temperature (Dot-wound Skin No Abnormality No Abnormality Appearance) (Pt Warm) (Pt Warm) -Tenderness on Palpation (Dot-wound No Yes Skin Appearance) -Ulcer Cleansing Rinsed/ soapy water Irrigated with Saline -Foul Odor after Cleansing No -Anesthetic Used 5% Lidocaine 5% Lidocaine Gel Gel #1 L Grt Toe -Combined with other wound No No -Current Size (cm) - Length 0.8 0.7 -Current Size (cm) - Width 0.6 5 -Current Size (cm) - Depth 0.3 0.3 -Total Square Cm 0.48 3.5 -Photo Taken No No -Epithelialization None Present None Present -Tunneling No No -Undermining/Tunneling No Yes -Undermining/Tunneling Starts (O'clock 1 ) -Undermining/Tunneling Ends (O'clock) 3 -Maximum Distance (cm) 0.2 -Circular Undermining No No -Exudate Amt Small Small -Exudate Type Serosanguineous Serous -Wound Margin Distinct, Distinct, Outline Outline Attached Attached -Granulation Amt None Present (0 None Present (0 %) %) -Slough/Fibrin Yes Yes -Necrosis Amt Large (67-100%) Large (67-100%) -Necrotic Tissue Type Adherent Slough Adherent Slough -Texture (Dot-wound Skin Appearance) Assessed, Assessed, Scarring Scarring -Moisture (Dot-wound Skin Appearance) Assessed,Dry/ Assessed, Scaly Maceration -Color (Dot-wound Skin Appearance) Assessed Assessed, Hemosiderin Staining,Palor -Temperature (Dot-wound Skin No Abnormality No Abnormality Appearance) (Pt Warm) (Pt Warm) -Tenderness on Palpation (Dot-wound No Yes Skin Appearance) -Ulcer Cleansing Rinsed/ soapy water Irrigated with Saline -Foul Odor after Cleansing No No -Anesthetic Used 5% Lidocaine 5% Lidocaine Gel Gel Lower Limb Edema Present Yes Left Calf (cm) 35.6 Left Ankle (cm) 23 WC - Nurse 2 - General Ulcer CM Notes Start: 10/23/20 09:09 Freq: Status: Active Protocol: Activity Type Activity Date Activity User E-Sign Co-Sign Detail Recorded Client Recorded Date Recorded By Document 10/23/20 09:27 JF [id number] 10/23/20 09:40 JF Document 10/30/20 09:32 [id number] 10/30/20 09:48 JF Document 11/06/20 09:42 MW [id number] 11/06/20 09:50 MW 10/23/20 10/30/20 11/06/20 09:27 09:32 09:42 Wound Center Nurse 2 #5- L HEEL FISSURE -Time 09:33 09:32 -Correct Patient Yes No -Correct Side, Site, Position Yes No -Correct Procedure Yes No -Procedure Performed Yes No -Type of Procedure Debridement -Clinical Debridement Subcutaneous -Tissue Removed Subcutaneous -Post Debridement (cm) - Length 1.4 0 -Post Debridement (cm) - Width 1.2 0 -Post Debridement (cm) - Depth 0.1 0 -Total Square (Post) (cm) 1.68 0 -Area of Debridement (cm) - Length 1.4 0 -Area of Debridement (cm) - Width 1.2 0 -Total Square (Area) (cm) 1.68 0 -Tunneling No No -Undermining/Tunneling No No -Circular Undermining No No -Wound/Ulcer Outcome Not Healed Healed- Epithelialized -Ulcer Cleansing Rinsed/ Rinsed/ Irrigated with Irrigated with Saline Saline -Foul Odor after Cleansing No No -Bioengineered Tissue No No -Bleeding Controlled with Pressure Pressure -Offloading Yes Yes -Type of Offloading Surgical Shoe Surgical Shoe -Treatment Response Procedure Procedure Tolerated Well Tolerated Well -Debridement - Subq, 1st 20sq cm Yes No #3 4th lateral toe/amp site -Time 09: 09:33 09:43 -Correct Patient Yes Yes Yes -Correct Side, Site, Position Yes Yes Yes -Correct Procedure Yes Yes Yes -Procedure Performed Yes Yes Yes -Type of Procedure Debridement Debridement Debridement -Clinical Debridement Subcutaneous Subcutaneous Subcutaneous -Tissue Removed Subcutaneous Subcutaneous Subcutaneous -Post Debridement (cm) - Length 3 2.8 2.9 -Post Debridement (cm) - Width 1.4 0.9 0.9 -Post Debridement (cm) - Depth 0.7 0.7 0.7 -Total Square (Post) (cm) 4.2 2.52 2.61 -Area of Debridement (cm) - Length 3 2.8 2.9 -Area of Debridement (cm) - Width 1.4 0.9 0.9 -Total Square (Area) (cm) 4.2 2.52 2.61 -Tunneling No No No -Undermining/Tunneling No No No -Circular Undermining No No No -Wound/Ulcer Outcome Not Healed Not Healed Not Healed -Ulcer Cleansing Rinsed/ Rinsed/ Irrigated with Irrigated with Saline Saline -Foul Odor after Cleansing No No No -Bioengineered Tissue No No No -Bleeding Controlled with Pressure Pressure Pressure -Offloading Yes Yes No -Type of Offloading Camwalker Surgical Shoe -Treatment Response Procedure Procedure Procedure Tolerated Well Tolerated Well Tolerated Well -Debridement - Subq, 1st 20sq cm No Yes Yes #2 L 5th toe -Time 09:30 09:33 09:43 -Correct Patient Yes Yes Yes -Correct Side, Site, Position Yes Yes Yes -Correct Procedure Yes Yes -Procedure Performed Yes Yes Yes -Type of Procedure Debridement Debridement Debridement -Clinical Debridement Subcutaneous Subcutaneous Subcutaneous -Tissue Removed Subcutaneous Subcutaneous Subcutaneous -Post Debridement (cm) - Length 1.1 1.1 1.2 -Post Debridement (cm) - Width 1 0.8 1.0 -Post Debridement (cm) - Depth 0.1 0.2 0.2 -Total Square (Post) (cm) 1.1 0.88 1.20 -Area of Debridement (cm) - Length 1.1 1.1 1.2 -Area of Debridement (cm) - Width 1 0.8 1.0 -Total Square (Area) (cm) 1.1 0.88 1.20 -Tunneling No No No -Undermining/Tunneling No No No -Circular Undermining No No No -Wound/Ulcer Outcome Not Healed Not Healed Not Healed -Ulcer Cleansing Rinsed/ Rinsed/ Rinsed/ Irrigated with Irrigated with Irrigated with Saline Saline Saline -Foul Odor after Cleansing No No No -Bioengineered Tissue No No No -Bleeding Controlled with Pressure Pressure Pressure -Offloading Yes Yes No -Type of Offloading Surgical Shoe Surgical Shoe -Treatment Response Procedure Procedure Procedure Tolerated Well Tolerated Well Tolerated Well -Debridement - Subq, 1st 20sq cm No No Yes #1 L Grt Toe -Time 09:31 09:34 09:43 -Correct Patient Yes Yes Yes -Correct Side, Site, Position Yes Yes Yes -Correct Procedure Yes Yes Yes -Procedure Performed Yes Yes Yes -Type of Procedure Debridement Debridement Debridement -Clinical Debridement Subcutaneous Subcutaneous Subcutaneous -Tissue Removed Subcutaneous Subcutaneous Subcutaneous -Post Debridement (cm) - Length 0.9 0.9 0.7 -Post Debridement (cm) - Width 0.7 0.7 0.4 -Post Debridement (cm) - Depth 0.2 0.4 0.2 -Total Square (Post) (cm) 0.63 0.63 0.28 -Area of Debridement (cm) - Length 0.9 0.9 0.7 -Area of Debridement (cm) - Width 0.7 0.7 0.4 -Total Square (Area) (cm) 0.63 0.63 0.28 -Tunneling No No No -Undermining/Tunneling No No No -Circular Undermining No No No -Wound/Ulcer Outcome Not Healed Not Healed Not Healed -Ulcer Cleansing Rinsed/ Rinsed/ Rinsed/ Irrigated with Irrigated with Irrigated with Saline Saline Saline -Foul Odor after Cleansing No No No -Bioengineered Tissue No No No -Bleeding Controlled with Pressure Pressure -Offloading Yes Yes No -Type of Offloading Surgical Shoe Surgical Shoe -Treatment Response Procedure Procedure Procedure Tolerated Well Tolerated Well Tolerated Well -Debridement - Subq, 1st 20sq cm No No No Pain Scale: 0-10 Numeric Is Patient Pain Free? Yes Yes Yes - Nurse 3 - General Ulcer D/C NN Start: 10/23/20 09:09 Freq: Status: Active Protocol: Activity Type Activity Date Activity User E-Sign Co-Sign Detail Recorded Client Recorded Date Recorded By Document 10/23/20 09:40 [id number] 10/23/20 09:41 Document 10/30/20 09:55 DL [id number] 10/30/20 09:58 DL Document 11/06/20 10:02 DL [id number] 11/06/20 10:03 DL 10/23/20 10/30/20 11/06/20 09:40 09:55 10:02 Wound Care Nurse 3 #5- L HEEL FISSURE -Ulcer Cleansing Rinsed/ Irrigated with Saline -Foul Odor after Cleansing No -Primary Dressing Applied C Hydrogel ($) -Primary Dressing Covered/Secured with Dry Gauze & Roll Gauze, Secured with Tape #3 4th lateral toe/amp site -Ulcer Cleansing Rinsed/ Wound Cleanser Rinsed/ Irrigated with Irrigated with Saline Saline -Foul Odor after Cleansing No No No -Primary Dressing Applied C Hydrogel ($) -Other Dressing hydrogel today santyl -Primary Dressing Covered/Secured with Dry Gauze & Dry Gauze & Dry Gauze & Roll Gauze, Roll Gauze, Roll Gauze, Secured with Secured with Secured with Tape Tape Tape #2 L 5th toe -Ulcer Cleansing Rinsed/ Rinsed/ Rinsed/ Irrigated with Irrigated with Irrigated with Saline Saline Saline -Foul Odor after Cleansing No No -Negative Pressure Wound Therapy Discontinue -Primary Dressing Applied C Hydrogel ($) -Other Dressing hydrogel today santyl -Primary Dressing Covered/Secured with Dry Gauze & Dry Gauze & Dry Gauze & Roll Gauze, Roll Gauze, Roll Gauze, Secured with Secured with Secured with Tape Tape Tape #1 L Grt Toe -Ulcer Cleansing Rinsed/ Rinsed/ Rinsed/ Irrigated with Irrigated with Irrigated with Saline Saline Saline -Foul Odor after Cleansing No No No -Primary Dressing Applied C Hydrogel ($) -Other Dressing hydrogel today santyl -Primary Dressing Covered/Secured with Dry Gauze & Dry Gauze & Dry Gauze & Roll Gauze, Roll Gauze, Roll Gauze, Secured with Secured with Secured with Tape Tape Tape Treatment Response Procedure Procedure Tolerated Well Tolerated Well Pain Scale: 0-10 Numeric Is Patient Pain Free? Yes Yes Yes WC - Visit Discharge Discharge Condition Stable Stable Stable Ambulatory Status Ambulatory,Cane Ambulatory Ambulatory,Cane Transportation Private Auto Private Auto Private Auto Accompanied by granddaughter Medication Reconcilliation completed & Yes provided to patient/care provider Clinical Summary of Care Provided Yes Notes: Pt to resume Santyl at home Facility Type Home Health Orders Sent Yes Wound debrided: Hallux Laterality: Left Wound Grade/Stage: Luciano 1 Type of Debridement: Excisional debridement Anesthesia Used: 4% Lidocaine Solution Depth: in the subcutaneous layer Percentage of wound debrided: 100 Instrument Used: 3mm curette Tissue Removed: includes fibrous, devitalized, biofilm, callus and slough tissue Severity: Fat Layer Exposed Amount of bleeding with debridement: Mild Bleeding Controlled with: Pressure Patient tolerated procedure: Patient tolerated procedure well Additional Wound Wound debrided: Fourth digit amputation site and fifth lateral digit Laterality: Left Wound Grade/Stage: Luciano 2 Type of Debridement: Excisional debridement Anesthesia Used: 4% Lidocaine Solution Depth: to bone (Debrided to subcu but probes to bone) Percentage of wound debrided: 100 Instrument Used: 3mm curette, #15 blade and Forceps Tissue Removed: Includes fibrous, devitalized, biofilm, callus and slough tissue Severity: Fat Layer Exposed (Probes to bone, debrided to fascia) Amount of bleeding with debridement: Mild Bleeding Controlled with: Pressure Patient tolerated procedure: Patient tolerated procedure well Assessment/Plan Assessment/Plan (1) Non-pressure chronic ulcer of other part of left foot with fat layer exposed: CODE(S): L97.522 - Non-pressure chronic ulcer of other part of left foot with fat layer exposed (2) 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 (3) Skin ulcer of left heel, limited to breakdown of skin: CODE(S): L97.421 - Non-pressure chronic ulcer of left heel and midfoot limited to breakdown of skin (4) Post-op pain: CODE(S): G89.18 - Other acute postprocedural pain (5) Ischaemic rest pain of lower extremity: CODE(S): M79.606 - Pain in leg, unspecified; I99.8 - Other disorder of circulatory system (6) Open wound of left foot: CODE(S): S91.302A - Unspecified open wound, left foot, initial encounter QUALIFIERS: Encounter type: subsequent encounter Qualified Code(s): S91.302D - Unspecified open wound, left foot, subsequent encounter (7) Foot pain, left: CODE(S): M79.672 - Pain in left foot (8) Amputated toe: CODE(S): S98.139A - Complete traumatic amputation of one unspecified lesser toe, initial encounter QUALIFIERS: Laterality: left Qualified Code(s): S98.132A - Complete traumatic amputation of one left lesser toe, initial encounter (9) History of tobacco abuse: CODE(S): Z87.891 - Personal history of nicotine dependence (10) Type 2 diabetes mellitus: CODE(S): E11.9 - Type 2 diabetes mellitus without complications QUALIFIERS: Diabetes mellitus termite treater insulin use: unspecified [facility] insulin use status Diabetes mellitus complication status: with circulatory complication Diabetes mellitus complication detail: with peripheral angiopathy with gangrene Qualified Code(s): E11.52 - Type 2 diabetes mellitus with diabetic peripheral angiopathy with gangrene (11) PAD (peripheral artery disease): CODE(S): I73.9 - Peripheral vascular disease, unspecified (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 Overall improvement noted in wound even if size is not strong there is less fibrotic tissue noted Recommend daily Santyl dressing changes to all ulceration sites After verbal consent was obtained sharp excisional debridement of all ulceration sites was carried out Patient noted to have peripheral vascular disease. Patient has been seeing Dr. Nicholson for management of this. Patient had intervention on 06/12/2020 with some regression of her vascular status noted. Patient had intervention again on 10/11/2020 this was performed at [facility]. Patient noted to have had a left iliofemoral profunda endorterectomy with patch angioplasty, balloon angioplasty of femororal popliteal artery as well as peroneal artery. Patient has follow-up with Dr. Nicholson tomorrow. Patient was hospitalized on 07/07/20 for worsening 4th toe ulceration and blood in stool. Patient was noted to have rapid increase in gangrene to 4th digit. Amputation of 4th digit and debridement of 1st and 5th digit was performed 07/08/20. OM was confirmed with [facility]. Patient was discharged on Levaquin every other day due to kidney function she has since finished. Reviewed proper wound care with patient. Discussed with the patient the importance of offloading the sites with wide enough shoe gear if she is to be wearing shoes, proper diet, good blood sugar control. Patient has offloading boot. Discussed with the patient all concerning signs and symptoms to watch out for and to contact office if he either presents. X-ray from 10/05/2020 showed amputation of the fourth digit. There is no other bony changes consistent with osteomyelitis noted to remaining digits at ulceration sites. There is no fractures or soft tissue emphysema noted cultures obtained 10/05/2020 demonstrated Pseudomonas aeruginosa. Discussed with the patient that given her restored vascular status that there is a chance that she would be able to now heal all of her wounds. Discussed that there is a possibility that there has been too much damage done to the fifth digit in order to save it. We will continue to monitor closely. Discussed with patient possibility of amputation of the fifth digit. Discussed that patient has several weeks to make a decision as we continue to monitor wound to make a decision. Discussed this with patient as well as family members. Discussed that there is every possibility now that she could have the blood flow to heal the wounds. We will continue to monitor closely. Application for TheraSkin skin graft is still pending. Patient is to follow-up in 1 week. This note was generated with [employer] dictation software. It may contain incorrect words, spelling, and punctuation that were not noted in checking the note before signing.
[2020-11-13 09:19] VITALS: BP 151/67; PULSE 66; RESP 16; TEMP 36.4; BMI 23.0
--- NOTE | 2020-11-13 10:13 | PCM.WC.PN ---
History of Present Illness Date of Service: 11/13/20 Chief Complaint: Left foot first, fifth digit ulceration Left fourth digit amputation site ulceration PAD History of Wound: Patient is referral from [facility]ud[facility]. 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 Patient has a history of smoking. Patient is diabetic as well but states is very well controlled averaging blood sugar in the low 100s. Patient denies any trauma or rubbing to start the wounds. Patient had intervention done by Dr. Nicholson on 06/12/2020. Since then patient has complaints of post procedure reperfusion pain. She states it is worse at night and she has some relief with dangling of the foot. She has had some increase in redness and swelling noted as well. Patient saw Dr. Tenorio June 26, 2020 and was started on 100mg gabapentin TID. She has noticed some improvement in her pain. 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 Patient was hospitalized 07/07/20 for worsening toe wound and blood in stool. 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 Amputation of 4th digit with debridement of 1st and 5th digit ulcerations was performed 07/08/20. 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 Patient was discharged on levaquin every other day due to impairment of her kidneys. Patient was also discharged on oxycodone. Patient relates improvement of her pain since surgery. Patient relates she is no longer taking strong pain meds. Patient continues at the wound care center for continued care ulcerations Patient had further intervention with Dr. Nicholson on October 11, 2020. Patient relates having to be transferred to [facility] for this. This was due to staffing issues. She has follow-up appointment with Dr. Nicholson on Thursday, November 07 Progress of Wound: Overall improvement noted to foot wound with less fibrotic tissue noted. There is increase in edema noted today Subjective Subjective Patient seen and examined resting comfortably. Patient denies any new pedal complaints. Patient denies any nausea, fever, chills, chest pain, shortness of breath, cough, streaking, purulence, vomiting. Patient relates over the last couple days increase in swelling and pain to her left lower extremity with new rash development of by her groin and thigh. She relates that she is an appoint with Dr. Nicholson tomorrow to get this seen to Objective Data Objective Data Vital Signs: Vital Signs Temp Pulse Resp BP 97.5 F L 66 16 151/67 H 11/13/20 09:19 11/13/20 09:19 11/13/20 09:19 11/13/20 09:19 Oxygen Delivery Method Room Air Weight: 149 kg Body Mass Index (BMI) 23.0 Physical Exam Narrative Const alert and no apparent distress General Appearance: cooperative and comfortable Lymph Lymphatic: no lymphedema noted Resp normal respiratory effort Effort and Inspection: able to speak in complete sentences Extremity no calf tenderness, negative gume and garcia sign Lower extremity and pedal and lower extremity edema left greater than right General Extremity: no tenderness to palpation of joints or extremities; Negative for clubbing or cyanosis or ecchymosis or erythema Vasc Peripheral Pulses: Yes posterior tibial pulses present +1 and dorsalis pedis pulses present +1, normal capillary refill, no acute ischemic skin changes noted. Edema noted to left lower extremity. Capillary fill time less than 3 seconds to all remaining digits left foot Skin General Skin Exam: dry skin and venous stasis, decreased hair growth noted; Negative for ecchymosis, eschar, pallor. Wound Narrative: ulcers noted to left first, fifth toes and fourth amputation site as well as posterior heel No malodor, purulence, streaking, fluctuation, crepitus. Skin is atrophic and hairless. Wounds to first and fifth digits have a less fibrotic base. Fifth toe wound noted to have less bone exposed with less necrotic fibrotic tissue noted. Fourth digit amputation site no longer probes to bone. Granular base noted to fourth digit amputation site. Improvement noted to patient's coloration to lower extremity. More normal healthy pink coloration with normal capillary fill time noted to remaining digits. Pulses were able to be felt. There is postprocedural edema noted this is worsened from last week. Normal skin temperature regained. Foot is warm There is noted to be a rash to patient's left thigh and groin. Wound noted to posterior plantar heel remains healed Neuro Gait (Neuro): heel to toe Sensory Exam: extremities light-touch: decreased MSK Motor Exam: strength 5/5 throughout, ROM to foot and ankle joints within normal limits Psych Appearance: appropriate Attitude: calm Debridement Note Debridement Note Post-Debridement Measurements and Additional Note: Post-Debridement Measurements/Treatment WC - Nurse 1 - General Ulcer Assessment Start: 10/23/20 09:09 Freq: Status: Active Protocol: ESVIN Activity Type Activity Date Activity User E-Sign Co-Sign Detail Recorded Client Recorded Date Recorded By Document 10/23/20 09:09 MW [id number] 10/23/20 09:14 MW Document 10/30/20 09:04 BMF [id number] 10/30/20 09:20 BMF Edit Result 10/30/20 09:04 BMF (1) [id number] 10/30/20 09:21 BMF Document 11/06/20 09:24 DL [id number] 11/06/20 09:31 DL Document 11/13/20 09:19 BMF [id number] 11/13/20 09:32 BMF Edit Result 11/13/20 09:19 BMF (2) [id number] 11/13/20 09:34 BMF (1) Pulse Rate (60-100) => 58 L Blood Pressure (90/60-120/80) => 167/56 H Blood Pressure Mean (mm Hg) => 93 (2) Finger Stick Blood Sugar(mg/dl) (if => 127 indicated): Blood Sugar => Stated by Patient Pulse Rate (60-100) => 66 Blood Pressure (90/60-120/80) => 151/67 H Blood Pressure Mean (mm Hg) => 95 10/23/20 10/30/20 11/06/20 09:09 09:04 09:24 - Today's Visit Information Type of service Follow-up Visit Follow-up Visit Follow-up Visit (Physician/PROJECT ESTIMATOR (Physician/PROJECT ESTIMATOR (Physician/PROJECT ESTIMATOR ) ) ) Arrival Mode Ambulatory Ambulatory,Cane Ambulatory Transfer Assistance None None None Accompanied by grand-daughter grand daughter daughter Patient Identification Verified (Name & Yes Yes Yes ) Patient Requires Transmission-Based No No No Precautions Safety Precautions NA Finger Stick Blood Sugar(mg/dl) (if 122 indicated): Blood Sugar Stated by Patient Height and Weight Body Mass Index (BMI) 23.0 23.0 23.0 BMI Classification Normal Normal Normal Vital Signs Temperature (97.8 F-99.1 F) 97.1 F L 97.3 F L 97.7 F L Temperature Source Temporal Oral Temporal Pulse Rate (60-100) 87 58 L 66 Pulse Location Monitor Monitor Monitor Respiratory Rate (12-18) 16 16 16 Respiratory rate source Observation Observation Observation Oxygen Delivery Method Room Air Room Air Room Air Blood Pressure (90/60-120/80) 140/60 H 167/56 H 134/44 H Blood Pressure Mean (mm Hg) 86 93 74 Source Monitor Monitor Monitor Position Sitting Sitting Sitting Blood Pressure Location Left Arm Left Arm Right Arm History Since Last Visit- (Skip if this is Patient's initial visit) Have you changed medications since your No No No last visit? Any new allergies or adverse reactions No No No Had a fall/change in ADL's that may No Yes No increase risk of falls Signs or symptoms of abuse and/or No No No neglect since last visit Have you been in the hospital since your No No No last visit? Has dressing in place as prescribed Yes Yes Yes Has compression in place as prescribed N/A N/A N/A Has offloadiing in place as prescribed N/A N/A Yes Experienced any changes in pain level or No No No management Left Footwear Removable Cast Surgical Shoe Walker/Walking with pressure Boot relief insole Right Footwear Regular Shoe Regular Shoe Pain Scale: 0-10 Numeric Is Patient Pain Free? Yes Yes Yes 11/13/20 09:19 WC - Today's Visit Information Type of service Follow-up Visit (Physician/PROJECT ESTIMATOR ) Arrival Mode Ambulatory,Cane Transfer Assistance None Accompanied by gr daughter Patient Identification Verified (Name & Yes ) Patient Requires Transmission-Based No Precautions Safety Precautions Finger Stick Blood Sugar(mg/dl) (if 127 indicated): Blood Sugar Stated by Patient Height and Weight Body Mass Index (BMI) 23.0 BMI Classification Normal Vital Signs Temperature (97.8 F-99.1 F) 97.5 F L Temperature Source Temporal Pulse Rate (60-100) 66 Pulse Location Monitor Respiratory Rate (12-18) 16 Respiratory rate source Observation Oxygen Delivery Method Room Air Blood Pressure (90/60-120/80) 151/67 H Blood Pressure Mean (mm Hg) 95 Source Monitor Position Sitting Blood Pressure Location Left Arm History Since Last Visit- (Skip if this is Patient's initial visit) Have you changed medications since your No last visit? Any new allergies or adverse reactions No Had a fall/change in ADL's that may No increase risk of falls Signs or symptoms of abuse and/or No neglect since last visit Have you been in the hospital since your No last visit? Has dressing in place as prescribed Yes Has compression in place as prescribed N/A Has offloadiing in place as prescribed Yes Experienced any changes in pain level or No management Left Footwear Surgical Shoe with pressure relief insole Right Footwear Regular Shoe Pain Scale: 0-10 Numeric Is Patient Pain Free? Yes WC - Nurse 1 - General Ulcer Measurement Start: 10/23/20 09:09 Freq: Status: Active Protocol: Activity Type Activity Date Activity User E-Sign Co-Sign Detail Recorded Client Recorded Date Recorded By Document 10/30/20 09:04 [facility] [id number] 10/30/20 09:20 BMF Document 11/06/20 09:24 DL [id number] 11/06/20 09:31 DL Document 11/13/20 09:19 [facility] [id number] 11/13/20 09:32 BM 10/30/20 11/06/20 11/13/20 09:04 09:24 09:19 Wound Center Nurse 1 #5- L HEEL FISSURE -Combined with other wound No -Current Size (cm) - Length 1 -Current Size (cm) - Width 0.1 -Current Size (cm) - Depth 0.1 -Total Square Cm 0.1 -Photo Taken No -Epithelialization None Present -Tunneling No -Undermining/Tunneling No -Circular Undermining No -Exudate Amt None Present -Wound Margin Distinct, Outline Attached -Granulation Amt Small (1-33%) -Granulation Quality Red -Slough/Fibrin Yes -Necrosis Amt Medium (34-66%) -Necrotic Tissue Type Adherent Slough -Texture (Dot-wound Skin Appearance) Callus,Scarring -Moisture (Dot-wound Skin Appearance) Assessed,Dry/ Scaly -Color (Dot-wound Skin Appearance) Assessed -Temperature (Dot-wound Skin No Abnormality Appearance) (Pt Warm) -Tenderness on Palpation (Dot-wound No Skin Appearance) -Ulcer Cleansing Rinsed/ Irrigated with Saline -Foul Odor after Cleansing No -Anesthetic Used 5% Lidocaine Gel #3 4th lateral toe/amp site -Combined with other wound No No -Current Size (cm) - Length 3.1 2.8 2.8 -Current Size (cm) - Width 0.8 1 0.6 -Current Size (cm) - Depth 0.4 0.8 0.3 -Total Square Cm 2.48 2.8 1.68 -Photo Taken No No No -Epithelialization None Present None Present -Tunneling No No -Undermining/Tunneling No No -Circular Undermining No No -Exudate Amt Medium Medium Medium -Exudate Type Serosanguineous Serosanguineous Serosanguineous -Wound Margin Distinct, Distinct, Distinct, Outline Outline Outline Attached Attached Attached -Granulation Amt Small (1-33%) Medium (34-66%) None Present (0 %) -Granulation Quality Red Red -Slough/Fibrin Yes Yes -Necrosis Amt Large (67-100%) Medium (34-66%) Large (67-100%) -Necrotic Tissue Type Adherent Slough Adherent Slough Adherent Slough -Structure Exposed N/A -Texture (Dot-wound Skin Appearance) Assessed, Assessed, Localized Edema Localized Edema Scarring ,Scarring ,Scarring -Moisture (Dot-wound Skin Appearance) Assessed, Assessed, No Abnormality Maceration Maceration -Color (Dot-wound Skin Appearance) Assessed, Assessed, Erythema Erythema,Palor Erythema,Palor -Temperature (Dot-wound Skin No Abnormality No Abnormality No Abnormality Appearance) (Pt Warm) (Pt Warm) (Pt Warm) -Tenderness on Palpation (Dot-wound No Yes No Skin Appearance) -Ulcer Cleansing Rinsed/ soap water Irrigated with Saline -Foul Odor after Cleansing No No Yes, Due to Product Use -Anesthetic Used 5% Lidocaine 5% Lidocaine 4% Lidocaine Gel Gel Solution #2 L 5th toe -Combined with other wound No No -Current Size (cm) - Length 1.2 1.1 1.1 -Current Size (cm) - Width 1 0.8 0.9 -Current Size (cm) - Depth 0.2 0.2 0.2 -Total Square Cm 1.2 0.88 0.99 -Photo Taken No No No -Epithelialization None Present None Present -Tunneling No No -Undermining/Tunneling No No -Circular Undermining No No -Exudate Amt Medium Medium Small -Exudate Type Serosanguineous Serosanguineous -Wound Margin Distinct, Distinct, Distinct, Outline Outline Outline Attached Attached Attached -Granulation Amt None Present (0 None Present (0 None Present (0 %) %) %) -Slough/Fibrin Yes Yes -Necrosis Amt Large (67-100%) Small (1-33%) Large (67-100%) -Necrotic Tissue Type Adherent Slough Adherent Slough Adherent Slough -Structure Exposed N/A -Texture (Dot-wound Skin Appearance) Assessed, Assessed, Localized Edema Scarring Scarring ,Scarring -Moisture (Dot-wound Skin Appearance) Assessed Assessed, Dry/Scaly Maceration -Color (Dot-wound Skin Appearance) Assessed, Assessed, Erythema Erythema Erythema,Palor -Temperature (Dot-wound Skin No Abnormality No Abnormality No Abnormality Appearance) (Pt Warm) (Pt Warm) (Pt Warm) -Tenderness on Palpation (Dot-wound No Yes No Skin Appearance) -Ulcer Cleansing Rinsed/ soapy water Wound Cleanser Irrigated with Saline -Foul Odor after Cleansing No Yes, Due to Product Use -Anesthetic Used 5% Lidocaine 5% Lidocaine 4% Lidocaine Gel Gel Solution #1 L Grt Toe -Combined with other wound No No -Current Size (cm) - Length 0.8 0.7 0.4 -Current Size (cm) - Width 0.6 5 0.2 -Current Size (cm) - Depth 0.3 0.3 0.3 -Total Square Cm 0.48 3.5 0.08 -Photo Taken No No No -Epithelialization None Present None Present -Tunneling No No -Undermining/Tunneling No Yes -Undermining/Tunneling Starts (O'clock 1 ) -Undermining/Tunneling Ends (O'clock) 3 -Maximum Distance (cm) 0.2 -Circular Undermining No No -Exudate Amt Small Small Small -Exudate Type Serosanguineous Serous -Wound Margin Distinct, Distinct, Distinct, Outline Outline Outline Attached Attached Attached -Granulation Amt None Present (0 None Present (0 None Present (0 %) %) %) -Slough/Fibrin Yes Yes -Necrosis Amt Large (67-100%) Large (67-100%) Large (67-100%) -Necrotic Tissue Type Adherent Slough Adherent Slough Adherent Slough -Structure Exposed N/A -Texture (Dot-wound Skin Appearance) Assessed, Assessed, Localized Edema Scarring Scarring ,Scarring -Moisture (Dot-wound Skin Appearance) Assessed,Dry/ Assessed, No Abnormality Scaly Maceration -Color (Dot-wound Skin Appearance) Assessed Assessed, Erythema Hemosiderin Staining,Palor -Temperature (Dot-wound Skin No Abnormality No Abnormality No Abnormality Appearance) (Pt Warm) (Pt Warm) (Pt Warm) -Tenderness on Palpation (Dot-wound No Yes No Skin Appearance) -Ulcer Cleansing Rinsed/ soapy water Wound Cleanser Irrigated with Saline -Foul Odor after Cleansing No No No -Anesthetic Used 5% Lidocaine 5% Lidocaine 4% Lidocaine Gel Gel Solution Lower Limb Edema Present Yes Left Calf (cm) 35.6 37.7 Left Ankle (cm) 23 23.3 WC - Nurse 2 - General Ulcer CM Notes Start: 10/23/20 09:09 Freq: Status: Active Protocol: Activity Type Activity Date Activity User E-Sign Co-Sign Detail Recorded Client Recorded Date Recorded By Document 10/23/20 09:27 JF [id number] 10/23/20 09:40 JF Document 10/30/20 09:32 JF [id number] 10/30/20 09:48 JF Document 11/06/20 09:42 MW [id number] 11/06/20 09:50 MW Edit Result 11/06/20 09:42 MW (1) [id number] 11/07/20 07:12 PL Document 11/13/20 09:43 JF [id number] 11/13/20 09:51 JF (1) #2 L 5th toe - Debridement - Subq, 1st 20sq cm Yes => No 10/23/20 10/30/20 11/06/20 09:27 09:32 09:42 Wound Center Nurse 2 #5- L HEEL FISSURE -Time 09:33 09:32 -Correct Patient Yes No -Correct Side, Site, Position Yes No -Correct Procedure Yes No -Procedure Performed Yes No -Type of Procedure Debridement -Clinical Debridement Subcutaneous -Tissue Removed Subcutaneous -Post Debridement (cm) - Length 1.4 0 -Post Debridement (cm) - Width 1.2 0 -Post Debridement (cm) - Depth 0.1 0 -Total Square (Post) (cm) 1.68 0 -Area of Debridement (cm) - Length 1.4 0 -Area of Debridement (cm) - Width 1.2 0 -Total Square (Area) (cm) 1.68 0 -Tunneling No No -Undermining/Tunneling No No -Circular Undermining No No -Wound/Ulcer Outcome Not Healed Healed- Epithelialized -Ulcer Cleansing Rinsed/ Rinsed/ Irrigated with Irrigated with Saline Saline -Foul Odor after Cleansing No No -Bioengineered Tissue No No -Bleeding Controlled with Pressure Pressure -Offloading Yes Yes -Type of Offloading Surgical Shoe Surgical Shoe -Treatment Response Procedure Procedure Tolerated Well Tolerated Well -Debridement - Subq, 1st 20sq cm Yes No #3 4th lateral toe/amp site -Time 09:29 09:33 09:43 -Correct Patient Yes Yes Yes -Correct Side, Site, Position Yes Yes Yes -Correct Procedure Yes Yes Yes -Procedure Performed Yes Yes Yes -Type of Procedure Debridement Debridement Debridement -Clinical Debridement Subcutaneous Subcutaneous Subcutaneous -Tissue Removed Subcutaneous Subcutaneous Subcutaneous -Post Debridement (cm) - Length 3 2.8 2.9 -Post Debridement (cm) - Width 1.4 0.9 0.9 -Post Debridement (cm) - Depth 0.7 0.7 0.7 -Total Square (Post) (cm) 4.2 2.52 2.61 -Area of Debridement (cm) - Length 3 2.8 2.9 -Area of Debridement (cm) - Width 1.4 0.9 0.9 -Total Square (Area) (cm) 4.2 2.52 2.61 -Tunneling No No No -Undermining/Tunneling No No No -Circular Undermining No No No -Wound/Ulcer Outcome Not Healed Not Healed Not Healed -Ulcer Cleansing Rinsed/ Rinsed/ Irrigated with Irrigated with Saline Saline -Foul Odor after Cleansing No No No -Bioengineered Tissue No No No -Bleeding Controlled with Pressure Pressure Pressure -Offloading Yes Yes No -Type of Offloading Camwalker Surgical Shoe -Treatment Response Procedure Procedure Procedure Tolerated Well Tolerated Well Tolerated Well -Debridement - Subq, 1st 20sq cm No Yes Yes #2 L 5th toe -Time : 09:33 09:43 -Correct Patient Yes Yes Yes -Correct Side, Site, Position Yes Yes Yes -Correct Procedure Yes Yes -Procedure Performed Yes Yes Yes -Type of Procedure Debridement Debridement Debridement -Clinical Debridement Subcutaneous Subcutaneous Subcutaneous -Tissue Removed Subcutaneous Subcutaneous Subcutaneous -Post Debridement (cm) - Length 1.1 1.1 1.2 -Post Debridement (cm) - Width 1 0.8 1.0 -Post Debridement (cm) - Depth 0.1 0.2 0.2 -Total Square (Post) (cm) 1.1 0.88 1.20 -Area of Debridement (cm) - Length 1.1 1.1 1.2 -Area of Debridement (cm) - Width 1 0.8 1.0 -Total Square (Area) (cm) 1.1 0.88 1.20 -Tunneling No No No -Undermining/Tunneling No No No -Circular Undermining No No No -Wound/Ulcer Outcome Not Healed Not Healed Not Healed -Ulcer Cleansing Rinsed/ Rinsed/ Rinsed/ Irrigated with Irrigated with Irrigated with Saline Saline Saline -Foul Odor after Cleansing No No No -Bioengineered Tissue No No No -Bleeding Controlled with Pressure Pressure Pressure -Offloading Yes Yes No -Type of Offloading Surgical Shoe Surgical Shoe -Treatment Response Procedure Procedure Procedure Tolerated Well Tolerated Well Tolerated Well -Debridement - Subq, 1st 20sq cm No No No #1 L Grt Toe -Time 09:31 09:34 09:43 -Correct Patient Yes Yes Yes -Correct Side, Site, Position Yes Yes Yes -Correct Procedure Yes Yes Yes -Procedure Performed Yes Yes Yes -Type of Procedure Debridement Debridement Debridement -Clinical Debridement Subcutaneous Subcutaneous Subcutaneous -Tissue Removed Subcutaneous Subcutaneous Subcutaneous -Post Debridement (cm) - Length 0.9 0.9 0.7 -Post Debridement (cm) - Width 0.7 0.7 0.4 -Post Debridement (cm) - Depth 0.2 0.4 0.2 -Total Square (Post) (cm) 0.63 0.63 0.28 -Area of Debridement (cm) - Length 0.9 0.9 0.7 -Area of Debridement (cm) - Width 0.7 0.7 0.4 -Total Square (Area) (cm) 0.63 0.63 0.28 -Tunneling No No No -Undermining/Tunneling No No No -Circular Undermining No No No -Wound/Ulcer Outcome Not Healed Not Healed Not Healed -Ulcer Cleansing Rinsed/ Rinsed/ Rinsed/ Irrigated with Irrigated with Irrigated with Saline Saline Saline -Foul Odor after Cleansing No No No -Bioengineered Tissue No No No -Bleeding Controlled with Pressure Pressure -Offloading Yes Yes No -Type of Offloading Surgical Shoe Surgical Shoe -Treatment Response Procedure Procedure Procedure Tolerated Well Tolerated Well Tolerated Well -Debridement - Subq, 1st 20sq cm No No No Pain Scale: 0-10 Numeric Is Patient Pain Free? Yes Yes Yes 11/13/20 09:43 Wound Center Nurse 2 #5- L HEEL FISSURE -Time -Correct Patient -Correct Side, Site, Position -Correct Procedure -Procedure Performed -Type of Procedure -Clinical Debridement -Tissue Removed -Post Debridement (cm) - Length -Post Debridement (cm) - Width -Post Debridement (cm) - Depth -Total Square (Post) (cm) -Area of Debridement (cm) - Length -Area of Debridement (cm) - Width -Total Square (Area) (cm) -Tunneling -Undermining/Tunneling -Circular Undermining -Wound/Ulcer Outcome -Ulcer Cleansing -Foul Odor after Cleansing -Bioengineered Tissue -Bleeding Controlled with -Offloading -Type of Offloading -Treatment Response -Debridement - Subq, 1st 20sq cm #3 4th lateral toe/amp site -Time 09:43 -Correct Patient Yes -Correct Side, Site, Position Yes -Correct Procedure Yes -Procedure Performed Yes -Type of Procedure Debridement -Clinical Debridement Subcutaneous -Tissue Removed Subcutaneous -Post Debridement (cm) - Length 2.6 -Post Debridement (cm) - Width 0.8 -Post Debridement (cm) - Depth 0.8 -Total Square (Post) (cm) 2.08 -Area of Debridement (cm) - Length 2.6 -Area of Debridement (cm) - Width 0.8 -Total Square (Area) (cm) 2.08 -Tunneling No -Undermining/Tunneling No -Circular Undermining No -Wound/Ulcer Outcome Not Healed -Ulcer Cleansing Rinsed/ Irrigated with Saline -Foul Odor after Cleansing No -Bioengineered Tissue No -Bleeding Controlled with Pressure -Offloading Yes -Type of Offloading Surgical Shoe -Treatment Response Procedure Tolerated Well -Debridement - Subq, 1st 20sq cm Yes #2 L 5th toe -Time 09:44 -Correct Patient Yes -Correct Side, Site, Position Yes -Correct Procedure Yes -Procedure Performed Yes -Type of Procedure Debridement -Clinical Debridement Subcutaneous -Tissue Removed Subcutaneous -Post Debridement (cm) - Length 0.9 -Post Debridement (cm) - Width 0.9 -Post Debridement (cm) - Depth 0.1 -Total Square (Post) (cm) 0.81 -Area of Debridement (cm) - Length 0.9 -Area of Debridement (cm) - Width 0.9 -Total Square (Area) (cm) 0.81 -Tunneling No -Undermining/Tunneling No -Circular Undermining No -Wound/Ulcer Outcome Not Healed -Ulcer Cleansing Rinsed/ Irrigated with Saline -Foul Odor after Cleansing No -Bioengineered Tissue No -Bleeding Controlled with Pressure -Offloading Yes -Type of Offloading Surgical Shoe -Treatment Response Procedure Tolerated Well -Debridement - Subq, 1st 20sq cm No #1 L Grt Toe -Time 09:51 -Correct Patient Yes -Correct Side, Site, Position Yes -Correct Procedure Yes -Procedure Performed Yes -Type of Procedure Debridement -Clinical Debridement Subcutaneous -Tissue Removed Subcutaneous -Post Debridement (cm) - Length 0.5 -Post Debridement (cm) - Width 0.4 -Post Debridement (cm) - Depth 0.2 -Total Square (Post) (cm) 0.20 -Area of Debridement (cm) - Length 0.5 -Area of Debridement (cm) - Width 0.4 -Total Square (Area) (cm) 0.20 -Tunneling No -Undermining/Tunneling No -Circular Undermining No -Wound/Ulcer Outcome Not Healed -Ulcer Cleansing Rinsed/ Irrigated with Saline -Foul Odor after Cleansing No -Bioengineered Tissue No -Bleeding Controlled with Pressure -Offloading Yes -Type of Offloading Surgical Shoe -Treatment Response Procedure Tolerated Well -Debridement - Subq, 1st 20sq cm No Pain Scale: 0-10 Numeric Is Patient Pain Free? Yes WC - Nurse 3 - General Ulcer D/C NN Start: 10/23/20 09:09 Freq: Status: Active Protocol: Activity Type Activity Date Activity User E-Sign Co-Sign Detail Recorded Client Recorded Date Recorded By Document 10/23/20 09:40 [id number] 10/23/20 09:41 Document 10/30/20 09:55 DL [id number] 10/30/20 09:58 DL Document 11/06/20 10:02 DL [id number] 11/06/20 10:03 DL Document 11/13/20 10:05 DL [id number] 11/13/20 10:06 DL 10/23/20 10/30/20 11/06/20 09:40 09:55 10:02 Wound Care Nurse 3 #5- L HEEL FISSURE -Ulcer Cleansing Rinsed/ Irrigated with Saline -Foul Odor after Cleansing No -Primary Dressing Applied C Hydrogel ($) -Primary Dressing Covered/Secured with Dry Gauze & Roll Gauze, Secured with Tape #3 4th lateral toe/amp site -Ulcer Cleansing Rinsed/ Wound Cleanser Rinsed/ Irrigated with Irrigated with Saline Saline -Foul Odor after Cleansing No No No -Primary Dressing Applied C Hydrogel ($) -Other Dressing hydrogel today santyl -Primary Dressing Covered/Secured with Dry Gauze & Dry Gauze & Dry Gauze & Roll Gauze, Roll Gauze, Roll Gauze, Secured with Secured with Secured with Tape Tape Tape -Other Covering -Promogran Misty Matter #2 L 5th toe -Ulcer Cleansing Rinsed/ Rinsed/ Rinsed/ Irrigated with Irrigated with Irrigated with Saline Saline Saline -Foul Odor after Cleansing No No -Negative Pressure Wound Therapy Discontinue -Primary Dressing Applied C Hydrogel ($) -Other Dressing hydrogel today santyl -Primary Dressing Covered/Secured with Dry Gauze & Dry Gauze & Dry Gauze & Roll Gauze, Roll Gauze, Roll Gauze, Secured with Secured with Secured with Tape Tape Tape -Other Covering #1 L Grt Toe -Ulcer Cleansing Rinsed/ Rinsed/ Rinsed/ Irrigated with Irrigated with Irrigated with Saline Saline Saline -Foul Odor after Cleansing No No No -Primary Dressing Applied C Hydrogel ($) -Other Dressing hydrogel today santyl -Primary Dressing Covered/Secured with Dry Gauze & Dry Gauze & Dry Gauze & Roll Gauze, Roll Gauze, Roll Gauze, Secured with Secured with Secured with Tape Tape Tape -Other Covering Treatment Response Procedure Procedure Tolerated Well Tolerated Well Pain Scale: 0-10 Numeric Is Patient Pain Free? Yes Yes Yes WC - Visit Discharge Discharge Condition Stable Stable Stable Ambulatory Status Ambulatory,Cane Ambulatory Ambulatory,Cane Transportation Private Auto Private Auto Private Auto Accompanied by granddaughter Medication Reconcilliation completed & Yes provided to patient/care provider Clinical Summary of Care Provided Yes Notes: Pt to resume Santyl at home Facility Type Home Health Orders Sent Yes 11/13/20 10:05 Wound Care Nurse 3 #5- L HEEL FISSURE -Ulcer Cleansing -Foul Odor after Cleansing -Primary Dressing Applied -Primary Dressing Covered/Secured with #3 4th lateral toe/amp site -Ulcer Cleansing Rinsed/ Irrigated with Saline -Foul Odor after Cleansing No -Primary Dressing Applied Promogran Misty Matter -Other Dressing -Primary Dressing Covered/Secured with Dry Gauze & Roll Gauze, Secured with Tape -Other Covering drsg per dl information operator -Promogran Misty Matter 1 #2 L 5th toe -Ulcer Cleansing Rinsed/ Irrigated with Saline -Foul Odor after Cleansing No -Negative Pressure Wound Therapy -Primary Dressing Applied Other -Other Dressing hydrogel -Primary Dressing Covered/Secured with Dry Gauze & Roll Gauze, Secured with Tape -Other Covering drsg per dl information operator #1 L Grt Toe -Ulcer Cleansing Rinsed/ Irrigated with Saline -Foul Odor after Cleansing No -Primary Dressing Applied Other -Other Dressing hydrogel -Primary Dressing Covered/Secured with Dry Gauze & Roll Gauze, Secured with Tape,Other -Other Covering drsg per dl information operator Treatment Response Procedure Tolerated Well Pain Scale: 0-10 Numeric Is Patient Pain Free? Yes WC - Visit Discharge Discharge Condition Stable Ambulatory Status Ambulatory,Cane Transportation Private Auto Accompanied by gr daughter Medication Reconcilliation completed & provided to patient/care provider Clinical Summary of Care Provided Notes: Facility Type Home Health Orders Sent Wound debrided: First digit, fourth digit amputation site Laterality: Left Wound Grade/Stage: Luciano 1 Type of Debridement: Excisional debridement Anesthesia Used: 4% Lidocaine Solution Depth: in the subcutaneous layer Percentage of wound debrided: 100 Instrument Used: 3mm curette Tissue Removed: includes fibrous, devitalized, biofilm, callus and slough tissue Severity: Fat Layer Exposed Amount of bleeding with debridement: Mild Bleeding Controlled with: Pressure Patient tolerated procedure: Patient tolerated procedure well Additional Wound Wound debrided: Fifth digit Laterality: Left Wound Grade/Stage: Luciano 2 Type of Debridement: Excisional debridement Depth: in the subcutaneous layer Percentage of wound debrided: 100 Instrument Used: 3mm curette Tissue Removed: Includes fibrous, devitalized, biofilm, callus and slough tissue Severity: Fat Layer Exposed (Debrided to subcu probes to bone) Amount of bleeding with debridement: Mild Bleeding Controlled with: Pressure Patient tolerated procedure: Patient tolerated procedure well Assessment/Plan Assessment/Plan (1) Non-pressure chronic ulcer of other part of left foot with fat layer exposed: CODE(S): L97.522 - Non-pressure chronic ulcer of other part of left foot with fat layer exposed (2) 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 (3) Skin ulcer of left heel, limited to breakdown of skin: CODE(S): L97.421 - Non-pressure chronic ulcer of left heel and midfoot limited to breakdown of skin (4) Post-op pain: CODE(S): G89.18 - Other acute postprocedural pain (5) Ischaemic rest pain of lower extremity: CODE(S): M79.606 - Pain in leg, unspecified; I99.8 - Other disorder of circulatory system (6) Open wound of left foot: CODE(S): S91.302A - Unspecified open wound, left foot, initial encounter QUALIFIERS: Encounter type: subsequent encounter Qualified Code(s): S91.302D - Unspecified open wound, left foot, subsequent encounter (7) Foot pain, left: CODE(S): M79.672 - Pain in left foot (8) Amputated toe: CODE(S): S98.139A - Complete traumatic amputation of one unspecified lesser toe, initial encounter QUALIFIERS: Laterality: left Qualified Code(s): S98.132A - Complete traumatic amputation of one left lesser toe, initial encounter (9) History of tobacco abuse: CODE(S): Z87.891 - Personal history of nicotine dependence (10) Type 2 diabetes mellitus: CODE(S): E11.9 - Type 2 diabetes mellitus without complications QUALIFIERS: Diabetes mellitus termite control servicer insulin use: unspecified termite control servicer insulin use status Diabetes mellitus complication status: with circulatory complication Diabetes mellitus complication detail: with peripheral angiopathy with gangrene Qualified Code(s): E11.52 - Type 2 diabetes mellitus with diabetic peripheral angiopathy with gangrene (11) PAD (peripheral artery disease): CODE(S): I73.9 - Peripheral vascular disease, unspecified (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 Overall improvement noted in wounds with less of fibrotic tissue noted. There is increase in edema noted. Patient relates increase in pain. Patient has rash to thigh and groin area. Patient has appointment with Dr. Nicholson tomorrow to get the seen to. She relates that these changes have occurred over the last 3 days. Recommend daily Santyl dressing changes to first and fifth ulceration sites to start Misty to fourth digit amputation site. After verbal consent was obtained sharp excisional debridement of all ulceration sites was carried out Patient noted to have peripheral vascular disease. Patient has been seeing Dr. Nicholson for management of this. Patient had intervention on 06/12/2020 with some regression of her vascular status noted. Patient had intervention again on 10/11/2020 this was performed at [facility]. Patient noted to have had a left iliofemoral profunda endorterectomy with patch angioplasty, balloon angioplasty of femororal popliteal artery as well as peroneal artery. Patient has follow-up with last week with everything looking well and has another appointment with Dr. Nicholson tomorrow. Patient was hospitalized on 07/07/20 for worsening 4th toe ulceration and blood in stool. Patient was noted to have rapid increase in gangrene to 4th digit. Amputation of 4th digit and debridement of 1st and 5th digit was performed 07/08/20. OM was confirmed with [facility]. Patient was discharged on Levaquin every other day due to kidney function she has since finished. Reviewed proper wound care with patient. Discussed with the patient the importance of offloading the sites with wide enough shoe gear if she is to be wearing shoes, proper diet, good blood sugar control. Patient has offloading boot. Discussed with the patient all concerning signs and symptoms to watch out for and to contact office if he either presents. X-ray from 10/05/2020 showed amputation of the fourth digit. There is no other bony changes consistent with osteomyelitis noted to remaining digits at ulceration sites. There is no fractures or soft tissue emphysema noted cultures obtained 10/05/2020 demonstrated Pseudomonas aeruginosa. Discussed with the patient that given her restored vascular status that there is a chance that she would be able to now heal all of her wounds. Discussed that there is a possibility that there has been too much damage done to the fifth digit in order to save it. We will continue to monitor closely. Discussed with patient possibility of amputation of the fifth digit. Discussed that patient has several weeks to make a decision as we continue to monitor wound to make a decision. Discussed this with patient as well as family members. Discussed that there is every possibility now that she could have the blood flow to heal the wounds. We will continue to monitor closely. Application for TheraSkin skin graft is approved but there is a portion that patient has cover [id number]. Patient will discuss with family if this is doable if she wants to proceed with this next week she will let us know. We will continue Misty to the fourth amputation site in the meanwhile. Patient is to follow-up in 1 week. This note was generated with [employer] dictation software. It may contain incorrect words, spelling, and punctuation that were not noted in checking the note before signing.
[2020-11-20 08:57] VITALS: RESP 16; TEMP 36.6; BMI 23.0
--- NOTE | 2020-11-20 12:42 | PCM.WC.PN ---
History of Present Illness Date of Service: 11/20/20 Chief Complaint: Left foot first, fifth digit ulceration Left fourth digit amputation site ulceration PAD History of Wound: Patient is referral from [facility] 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 Patient has a history of smoking. Patient is diabetic as well but states is very well controlled averaging blood sugar in the low 100s. Patient denies any trauma or rubbing to start the wounds. Patient had intervention done by Dr. Nicholson on 06/12/2020. Since then patient has complaints of post procedure reperfusion pain. She states it is worse at night and she has some relief with dangling of the foot. She has had some increase in redness and swelling noted as well. Patient saw Dr. Tenoroi June 26, 2020 and was started on 100mg gabapentin TID. She has noticed some improvement in her pain. 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 Patient was hospitalized 07/07/20 for worsening toe wound and blood in stool. 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 Amputation of 4th digit with debridement of 1st and 5th digit ulcerations was performed 07/08/20. 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 Patient was discharged on levaquin every other day due to impairment of her kidneys. Patient was also discharged on oxycodone. Patient relates improvement of her pain since surgery. Patient relates she is no longer taking strong pain meds. Patient continues at the wound care center for continued care ulcerations Patient had further intervention with Dr. Nicholson on October 11, 2020. Patient relates having to be transferred to [facility] for this. This was due to staffing issues. She has follow-up appointment with Dr. Nicholson on Thursday, November 07 Progress of Wound: Overall improvement noted to foot wound with less fibrotic tissue noted. There is decrease in edema noted today Subjective Subjective Patient seen and examined resting comfortably. Patient denies any new pedal complaints. Patient denies any nausea, fever, chills, chest pain, shortness of breath, cough, streaking, purulence, vomiting. Patient was she has appoint with Dr. Nicholson again tomorrow. She is to start on antibiotics for cellulitis to her left thigh Objective Data Objective Data Vital Signs: Vital Signs Temp Pulse Resp BP 98 F 66 16 151/67 H 11/20/20 08:57 11/13/20 09:19 11/20/20 08:57 11/13/20 09:19 Oxygen Delivery Method Room Air Weight: 149 kg Body Mass Index (BMI) 23.0 Physical Exam Narrative Const alert and no apparent distress General Appearance: cooperative and comfortable Lymph Lymphatic: no lymphedema noted Resp normal respiratory effort Effort and Inspection: able to speak in complete sentences Extremity no calf tenderness, negative gume and garcia sign Lower extremity and pedal and lower extremity edema left greater than right General Extremity: no tenderness to palpation of joints or extremities; Negative for clubbing or cyanosis or ecchymosis or erythema Vasc Peripheral Pulses: Yes posterior tibial pulses present +1 and dorsalis pedis pulses present +1, normal capillary refill, no acute ischemic skin changes noted. Edema noted to left lower extremity. Capillary fill time less than 3 seconds to all remaining digits left foot Skin General Skin Exam: dry skin and venous stasis, decreased hair growth noted; Negative for ecchymosis, eschar, pallor. Wound Narrative: ulcers noted to left first, fifth toes and fourth amputation site No malodor, purulence, streaking, fluctuation, crepitus. Skin is atrophic and hairless. Wounds to first and fifth digits have a less fibrotic base. Fifth toe wound noted to no longer have bone exposed with less necrotic fibrotic tissue noted. Fourth digit amputation site no longer probes to bone. Granular base noted to fourth digit amputation site. Improvement noted to patient's coloration to lower extremity. More normal healthy pink coloration with normal capillary fill time noted to remaining digits. Pulses were able to be felt. There is postprocedural edema noted this is improved from last week. Normal skin temperature regained. Foot is warm There is noted to be a rash to patient's left thigh and groin. Wound noted to posterior plantar heel remains healed Neuro Gait (Neuro): heel to toe Sensory Exam: extremities light-touch: decreased MSK Motor Exam: strength 5/5 throughout, ROM to foot and ankle joints within normal limits Psych Appearance: appropriate Attitude: calm Debridement Note Debridement Note Post-Debridement Measurements and Additional Note: Post-Debridement Measurements/Treatment SOPHIA - Nurse 1 - General Ulcer Assessment Start: 10/23/20 09:09 Freq: Status: Active Protocol: WC.LOWEXT Activity Type Activity Date Activity User E-Sign Co-Sign Detail Recorded Client Recorded Date Recorded By Document 10/23/20 09:09 MW [id number] 10/23/20 09:14 MW Document 10/30/20 09:04 BMF [id number] 10/30/20 09:20 BMF Edit Result 10/30/20 09:04 BMF (1) [id number] 10/30/20 09:21 BMF Document 11/06/20 09:24 DL [id number] 11/06/20 09:31 DL Document 11/13/20 09:19 BMF [id number] 11/13/20 09:32 BMF Edit Result 11/13/20 09:19 BMF (2) [id number] 11/13/20 09:34 BMF Document 11/20/20 08:57 BMF Desktop 11/20/20 09:12 BMF (1) Pulse Rate (60-100) => 58 L Blood Pressure (90/60-120/80) => 167/56 H Blood Pressure Mean (mm Hg) => 93 (2) Finger Stick Blood Sugar(mg/dl) (if => 127 indicated): Blood Sugar => Stated by Patient Pulse Rate (60-100) => 66 Blood Pressure (90/60-120/80) => 151/67 H Blood Pressure Mean (mm Hg) => 95 10/23/20 10/30/20 11/06/20 09:09 09:04 09:24 WC - Today's Visit Information Type of service Follow-up Visit Follow-up Visit Follow-up Visit (Physician/MANAGER EVENT (Physician/MANAGER EVENT (Physician/MANAGER EVENT ) ) ) Arrival Mode Ambulatory Ambulatory,Cane Ambulatory Transfer Assistance None None None Accompanied by grand-daughter grand daughter daughter Patient Identification Verified (Name & Yes Yes Yes ) Patient Requires Transmission-Based No No No Precautions Safety Precautions NA Finger Stick Blood Sugar(mg/dl) (if 122 indicated): Blood Sugar Stated by Patient Height and Weight Body Mass Index (BMI) 23.0 23.0 23.0 BMI Classification Normal Normal Normal Vital Signs Temperature (97.8 F-99.1 F) 97.1 F L 97.3 F L 97.7 F L Temperature Source Temporal Oral Temporal Pulse Rate (60-100) 87 58 L 66 Pulse Location Monitor Monitor Monitor Respiratory Rate (12-18) 16 16 16 Respiratory rate source Observation Observation Observation Oxygen Delivery Method Room Air Room Air Room Air Blood Pressure (90/60-120/80) 140/60 H 167/56 H 134/44 H Blood Pressure Mean (mm Hg) 86 93 74 Source Monitor Monitor Monitor Position Sitting Sitting Sitting Blood Pressure Location Left Arm Left Arm Right Arm History Since Last Visit- (Skip if this is Patient's initial visit) Have you changed medications since your No No No last visit? Any new allergies or adverse reactions No No No Had a fall/change in ADL's that may No Yes No increase risk of falls Signs or symptoms of abuse and/or No No No neglect since last visit Have you been in the hospital since your No No No last visit? Has dressing in place as prescribed Yes Yes Yes Has compression in place as prescribed N/A N/A N/A Has offloadiing in place as prescribed N/A N/A Yes Experienced any changes in pain level or No No No management Left Footwear Removable Cast Surgical Shoe Walker/Walking with pressure Boot relief insole Right Footwear Regular Shoe Regular Shoe Pain Scale: 0-10 Numeric Is Patient Pain Free? Yes Yes Yes 11/13/20 11/20/20 09:19 08:57 WC - Today's Visit Information Type of service Follow-up Visit Follow-up Visit (Physician/MANAGER EVENT (Physician/MANAGER EVENT ) ) Arrival Mode Ambulatory,Cane Ambulatory,Cane Transfer Assistance None None Accompanied by gr daughter benjamin jamil Patient Identification Verified (Name & Yes Yes ) Patient Requires Transmission-Based No No Precautions Safety Precautions Finger Stick Blood Sugar(mg/dl) (if 127 indicated): Blood Sugar Stated by Patient Height and Weight Body Mass Index (BMI) 23.0 23.0 BMI Classification Normal Normal Vital Signs Temperature (97.8 F-99.1 F) 97.5 F L 98 F Temperature Source Temporal Temporal Pulse Rate (60-100) 66 Pulse Location Monitor Monitor Respiratory Rate (12-18) 16 16 Respiratory rate source Observation Observation Oxygen Delivery Method Room Air Room Air Blood Pressure (90/60-120/80) 151/67 H Blood Pressure Mean (mm Hg) 95 Source Monitor Monitor Position Sitting Sitting Blood Pressure Location Left Arm Left Arm History Since Last Visit- (Skip if this is Patient's initial visit) Have you changed medications since your No No last visit? Any new allergies or adverse reactions No No Had a fall/change in ADL's that may No No increase risk of falls Signs or symptoms of abuse and/or No No neglect since last visit Have you been in the hospital since your No No last visit? Has dressing in place as prescribed Yes Yes Has compression in place as prescribed N/A N/A Has offloadiing in place as prescribed Yes Yes Experienced any changes in pain level or No No management Left Footwear Surgical Shoe Surgical Shoe with pressure with pressure relief insole relief insole Right Footwear Regular Shoe Regular Shoe Pain Scale: 0-10 Numeric Is Patient Pain Free? Yes Yes WC - Nurse 1 - General Ulcer Measurement Start: 10/23/20 09:09 Freq: Status: Active Protocol: Activity Type Activity Date Activity User E-Sign Co-Sign Detail Recorded Client Recorded Date Recorded By Document 10/30/20 09:04 BMF [id number] 10/30/20 09:20 BMF Document 11/06/20 09:24 DL [id number] 11/06/20 09:31 DL Document 11/13/20 09:19 BM [id number] 11/13/20 09:32 BM Document 11/20/20 08:57 BM Desktop 11/20/20 09:12 BMF 10/30/20 11/06/20 11/13/20 09:04 09:24 09:19 Wound Center Nurse 1 #5- L HEEL FISSURE -Combined with other wound No -Current Size (cm) - Length 1 -Current Size (cm) - Width 0.1 -Current Size (cm) - Depth 0.1 -Total Square Cm 0.1 -Photo Taken No -Epithelialization None Present -Tunneling No -Undermining/Tunneling No -Circular Undermining No -Exudate Amt None Present -Wound Margin Distinct, Outline Attached -Granulation Amt Small (1-33%) -Granulation Quality Red -Slough/Fibrin Yes -Necrosis Amt Medium (34-66%) -Necrotic Tissue Type Adherent Slough -Texture (Dot-wound Skin Appearance) Callus,Scarring -Moisture (Dot-wound Skin Appearance) Assessed,Dry/ Scaly -Color (Dot-wound Skin Appearance) Assessed -Temperature (Dot-wound Skin No Abnormality Appearance) (Pt Warm) -Tenderness on Palpation (Dot-wound No Skin Appearance) -Ulcer Cleansing Rinsed/ Irrigated with Saline -Foul Odor after Cleansing No -Anesthetic Used 5% Lidocaine Gel #3 4th lateral toe/amp site -Combined with other wound No No -Current Size (cm) - Length 3.1 2.8 2.8 -Current Size (cm) - Width 0.8 1 0.6 -Current Size (cm) - Depth 0.4 0.8 0.3 -Total Square Cm 2.48 2.8 1.68 -Photo Taken No No No -Epithelialization None Present None Present -Tunneling No No -Undermining/Tunneling No No -Circular Undermining No No -Exudate Amt Medium Medium Medium -Exudate Type Serosanguineous Serosanguineous Serosanguineous -Wound Margin Distinct, Distinct, Distinct, Outline Outline Outline Attached Attached Attached -Granulation Amt Small (1-33%) Medium (34-66%) None Present (0 %) -Granulation Quality Red Red -Slough/Fibrin Yes Yes -Necrosis Amt Large (67-100%) Medium (34-66%) Large (67-100%) -Necrotic Tissue Type Adherent Slough Adherent Slough Adherent Slough -Structure Exposed N/A -Texture (Dot-wound Skin Appearance) Assessed, Assessed, Localized Edema Localized Edema Scarring ,Scarring ,Scarring -Moisture (Dot-wound Skin Appearance) Assessed, Assessed, No Abnormality Maceration Maceration -Color (Dot-wound Skin Appearance) Assessed, Assessed, Erythema Erythema,Palor Erythema,Palor -Temperature (Dot-wound Skin No Abnormality No Abnormality No Abnormality Appearance) (Pt Warm) (Pt Warm) (Pt Warm) -Tenderness on Palpation (Dot-wound No Yes No Skin Appearance) -Ulcer Cleansing Rinsed/ soap water Irrigated with Saline -Foul Odor after Cleansing No No Yes, Due to Product Use -Anesthetic Used 5% Lidocaine 5% Lidocaine 4% Lidocaine Gel Gel Solution #2 L 5th toe -Combined with other wound No No -Current Size (cm) - Length 1.2 1.1 1.1 -Current Size (cm) - Width 1 0.8 0.9 -Current Size (cm) - Depth 0.2 0.2 0.2 -Total Square Cm 1.2 0.88 0.99 -Photo Taken No No No -Epithelialization None Present None Present -Tunneling No No -Undermining/Tunneling No No -Circular Undermining No No -Exudate Amt Medium Medium Small -Exudate Type Serosanguineous Serosanguineous -Wound Margin Distinct, Distinct, Distinct, Outline Outline Outline Attached Attached Attached -Granulation Amt None Present (0 None Present (0 None Present (0 %) %) %) -Slough/Fibrin Yes Yes -Necrosis Amt Large (67-100%) Small (1-33%) Large (67-100%) -Necrotic Tissue Type Adherent Slough Adherent Slough Adherent Slough -Structure Exposed N/A -Texture (Dot-wound Skin Appearance) Assessed, Assessed, Localized Edema Scarring Scarring ,Scarring -Moisture (Dot-wound Skin Appearance) Assessed Assessed, Dry/Scaly Maceration -Color (Dot-wound Skin Appearance) Assessed, Assessed, Erythema Erythema Erythema,Palor -Temperature (Dot-wound Skin No Abnormality No Abnormality No Abnormality Appearance) (Pt Warm) (Pt Warm) (Pt Warm) -Tenderness on Palpation (Dot-wound No Yes No Skin Appearance) -Ulcer Cleansing Rinsed/ soapy water Wound Cleanser Irrigated with Saline -Foul Odor after Cleansing No Yes, Due to Product Use -Anesthetic Used 5% Lidocaine 5% Lidocaine 4% Lidocaine Gel Gel Solution #1 L Grt Toe -Combined with other wound No No -Current Size (cm) - Length 0.8 0.7 0.4 -Current Size (cm) - Width 0.6 5 0.2 -Current Size (cm) - Depth 0.3 0.3 0.3 -Total Square Cm 0.48 3.5 0.08 -Photo Taken No No No -Epithelialization None Present None Present -Tunneling No No -Undermining/Tunneling No Yes -Undermining/Tunneling Starts (O'clock 1 ) -Undermining/Tunneling Ends (O'clock) 3 -Maximum Distance (cm) 0.2 -Circular Undermining No No -Exudate Amt Small Small Small -Exudate Type Serosanguineous Serous -Wound Margin Distinct, Distinct, Distinct, Outline Outline Outline Attached Attached Attached -Granulation Amt None Present (0 None Present (0 None Present (0 %) %) %) -Slough/Fibrin Yes Yes -Necrosis Amt Large (67-100%) Large (67-100%) Large (67-100%) -Necrotic Tissue Type Adherent Slough Adherent Slough Adherent Slough -Structure Exposed N/A -Texture (Dot-wound Skin Appearance) Assessed, Assessed, Localized Edema Scarring Scarring ,Scarring -Moisture (Dot-wound Skin Appearance) Assessed,Dry/ Assessed, No Abnormality Scaly Maceration -Color (Dot-wound Skin Appearance) Assessed Assessed, Erythema Hemosiderin Staining,Palor -Temperature (Dot-wound Skin No Abnormality No Abnormality No Abnormality Appearance) (Pt Warm) (Pt Warm) (Pt Warm) -Tenderness on Palpation (Dot-wound No Yes No Skin Appearance) -Ulcer Cleansing Rinsed/ soapy water Wound Cleanser Irrigated with Saline -Foul Odor after Cleansing No No No -Anesthetic Used 5% Lidocaine 5% Lidocaine 4% Lidocaine Gel Gel Solution Lower Limb Edema Present Yes Left Calf (cm) 35.6 37.7 Left Ankle (cm) 23 23.3 11/20/20 08:57 Wound Center Nurse 1 #5- L HEEL FISSURE -Combined with other wound -Current Size (cm) - Length -Current Size (cm) - Width -Current Size (cm) - Depth -Total Square Cm -Photo Taken -Epithelialization -Tunneling -Undermining/Tunneling -Circular Undermining -Exudate Amt -Wound Margin -Granulation Amt -Granulation Quality -Slough/Fibrin -Necrosis Amt -Necrotic Tissue Type -Texture (Dot-wound Skin Appearance) -Moisture (Dot-wound Skin Appearance) -Color (Dot-wound Skin Appearance) -Temperature (Dot-wound Skin Appearance) -Tenderness on Palpation (Dot-wound Skin Appearance) -Ulcer Cleansing -Foul Odor after Cleansing -Anesthetic Used #3 4th lateral toe/amp site -Combined with other wound No -Current Size (cm) - Length 3.1 -Current Size (cm) - Width 0.7 -Current Size (cm) - Depth 0.4 -Total Square Cm 2.17 -Photo Taken No -Epithelialization None Present -Tunneling No -Undermining/Tunneling No -Circular Undermining No -Exudate Amt Medium -Exudate Type Serous -Wound Margin Distinct, Outline Attached -Granulation Amt None Present (0 %) -Granulation Quality -Slough/Fibrin Yes -Necrosis Amt Large (67-100%) -Necrotic Tissue Type Adherent Slough -Structure Exposed -Texture (Dot-wound Skin Appearance) Assessed, Scarring -Moisture (Dot-wound Skin Appearance) Assessed, Maceration -Color (Dot-wound Skin Appearance) Assessed, Erythema,Palor -Temperature (Dot-wound Skin No Abnormality Appearance) (Pt Warm) -Tenderness on Palpation (Dot-wound Yes Skin Appearance) -Ulcer Cleansing Rinsed/ Irrigated with Saline -Foul Odor after Cleansing No -Anesthetic Used 5% Lidocaine Gel #2 L 5th toe -Combined with other wound No -Current Size (cm) - Length 1.2 -Current Size (cm) - Width 0.7 -Current Size (cm) - Depth 0.2 -Total Square Cm 0.84 -Photo Taken No -Epithelialization None Present -Tunneling No -Undermining/Tunneling No -Circular Undermining No -Exudate Amt Medium -Exudate Type Serous -Wound Margin Distinct, Outline Attached -Granulation Amt None Present (0 %) -Slough/Fibrin Yes -Necrosis Amt Large (67-100%) -Necrotic Tissue Type Adherent Slough -Structure Exposed -Texture (Dot-wound Skin Appearance) Assessed, Scarring -Moisture (Dot-wound Skin Appearance) Assessed, Maceration -Color (Dot-wound Skin Appearance) Assessed, Erythema -Temperature (Dot-wound Skin No Abnormality Appearance) (Pt Warm) -Tenderness on Palpation (Dot-wound Yes Skin Appearance) -Ulcer Cleansing Rinsed/ Irrigated with Saline -Foul Odor after Cleansing No -Anesthetic Used 5% Lidocaine Gel #1 L Grt Toe -Combined with other wound No -Current Size (cm) - Length 0.5 -Current Size (cm) - Width 0.2 -Current Size (cm) - Depth 0.3 -Total Square Cm 0.10 -Photo Taken No -Epithelialization None Present -Tunneling No -Undermining/Tunneling No -Undermining/Tunneling Starts (O'clock ) -Undermining/Tunneling Ends (O'clock) -Maximum Distance (cm) -Circular Undermining No -Exudate Amt Medium -Exudate Type Serous -Wound Margin Distinct, Outline Attached -Granulation Amt None Present (0 %) -Slough/Fibrin Yes -Necrosis Amt Large (67-100%) -Necrotic Tissue Type Adherent Slough -Structure Exposed -Texture (Dot-wound Skin Appearance) Assessed, Scarring -Moisture (Dot-wound Skin Appearance) Assessed, Maceration -Color (Dot-wound Skin Appearance) Assessed, Erythema,Palor -Temperature (Dot-wound Skin No Abnormality Appearance) (Pt Warm) -Tenderness on Palpation (Dot-wound Yes Skin Appearance) -Ulcer Cleansing Rinsed/ Irrigated with Saline -Foul Odor after Cleansing No -Anesthetic Used 5% Lidocaine Gel Lower Limb Edema Present Yes Left Calf (cm) 36.8 Left Ankle (cm) 22.9 WC - Nurse 2 - General Ulcer CM Notes Start: 10/23/20 09:09 Freq: Status: Active Protocol: Activity Type Activity Date Activity User E-Sign Co-Sign Detail Recorded Client Recorded Date Recorded By Document 10/23/20 09:27 JF [id number] 10/23/20 09:40 JF Document 10/30/20 09:32 JF [id number] 10/30/20 09:48 JF Document 11/06/20 09:42 MW [id number] 11/06/20 09:50 MW Edit Result 11/06/20 09:42 MW (1) [id number] 11/07/20 07:12 PL Document 11/13/20 09:43 JF [id number] 11/13/20 09:51 JF Document 11/20/20 09:28 JF [id number] 11/20/20 09:34 JF (1) #2 L 5th toe - Debridement - Subq, 1st 20sq cm Yes => No 10/23/20 10/30/20 11/06/20 09:27 09:32 09:42 Wound Center Nurse 2 #5- L HEEL FISSURE -Time 09:33 09:32 -Correct Patient Yes No -Correct Side, Site, Position Yes No -Correct Procedure Yes No -Procedure Performed Yes No -Type of Procedure Debridement -Clinical Debridement Subcutaneous -Tissue Removed Subcutaneous -Post Debridement (cm) - Length 1.4 0 -Post Debridement (cm) - Width 1.2 0 -Post Debridement (cm) - Depth 0.1 0 -Total Square (Post) (cm) 1.68 0 -Area of Debridement (cm) - Length 1.4 0 -Area of Debridement (cm) - Width 1.2 0 -Total Square (Area) (cm) 1.68 0 -Tunneling No No -Undermining/Tunneling No No -Circular Undermining No No -Wound/Ulcer Outcome Not Healed Healed- Epithelialized -Ulcer Cleansing Rinsed/ Rinsed/ Irrigated with Irrigated with Saline Saline -Foul Odor after Cleansing No No -Bioengineered Tissue No No -Bleeding Controlled with Pressure Pressure -Offloading Yes Yes -Type of Offloading Surgical Shoe Surgical Shoe -Treatment Response Procedure Procedure Tolerated Well Tolerated Well -Debridement - Subq, 1st 20sq cm Yes No #3 4th lateral toe/amp site -Time 09:29 09:33 09:43 -Correct Patient Yes Yes Yes -Correct Side, Site, Position Yes Yes Yes -Correct Procedure Yes Yes Yes -Procedure Performed Yes Yes Yes -Type of Procedure Debridement Debridement Debridement -Clinical Debridement Subcutaneous Subcutaneous Subcutaneous -Tissue Removed Subcutaneous Subcutaneous Subcutaneous -Post Debridement (cm) - Length 3 2.8 2.9 -Post Debridement (cm) - Width 1.4 0.9 0.9 -Post Debridement (cm) - Depth 0.7 0.7 0.7 -Total Square (Post) (cm) 4.2 2.52 2.61 -Area of Debridement (cm) - Length 3 2.8 2.9 -Area of Debridement (cm) - Width 1.4 0.9 0.9 -Total Square (Area) (cm) 4.2 2.52 2.61 -Tunneling No No No -Undermining/Tunneling No No No -Circular Undermining No No No -Wound/Ulcer Outcome Not Healed Not Healed Not Healed -Ulcer Cleansing Rinsed/ Rinsed/ Irrigated with Irrigated with Saline Saline -Foul Odor after Cleansing No No No -Bioengineered Tissue No No No -Bleeding Controlled with Pressure Pressure Pressure -Offloading Yes Yes No -Type of Offloading Camwalker Surgical Shoe -Treatment Response Procedure Procedure Procedure Tolerated Well Tolerated Well Tolerated Well -Debridement - Subq, 1st 20sq cm No Yes Yes #2 L 5th toe -Time 09: 09:33 09:43 -Correct Patient Yes Yes Yes -Correct Side, Site, Position Yes Yes Yes -Correct Procedure Yes Yes -Procedure Performed Yes Yes Yes -Type of Procedure Debridement Debridement Debridement -Clinical Debridement Subcutaneous Subcutaneous Subcutaneous -Tissue Removed Subcutaneous Subcutaneous Subcutaneous -Post Debridement (cm) - Length 1.1 1.1 1.2 -Post Debridement (cm) - Width 1 0.8 1.0 -Post Debridement (cm) - Depth 0.1 0.2 0.2 -Total Square (Post) (cm) 1.1 0.88 1.20 -Area of Debridement (cm) - Length 1.1 1.1 1.2 -Area of Debridement (cm) - Width 1 0.8 1.0 -Total Square (Area) (cm) 1.1 0.88 1.20 -Tunneling No No No -Undermining/Tunneling No No No -Circular Undermining No No No -Wound/Ulcer Outcome Not Healed Not Healed Not Healed -Ulcer Cleansing Rinsed/ Rinsed/ Rinsed/ Irrigated with Irrigated with Irrigated with Saline Saline Saline -Foul Odor after Cleansing No No No -Bioengineered Tissue No No No -Bleeding Controlled with Pressure Pressure Pressure -Offloading Yes Yes No -Type of Offloading Surgical Shoe Surgical Shoe -Treatment Response Procedure Procedure Procedure Tolerated Well Tolerated Well Tolerated Well -Debridement - Subq, 1st 20sq cm No No No #1 L Grt Toe -Time 09:31 09:34 09:43 -Correct Patient Yes Yes Yes -Correct Side, Site, Position Yes Yes Yes -Correct Procedure Yes Yes Yes -Procedure Performed Yes Yes Yes -Type of Procedure Debridement Debridement Debridement -Clinical Debridement Subcutaneous Subcutaneous Subcutaneous -Tissue Removed Subcutaneous Subcutaneous Subcutaneous -Post Debridement (cm) - Length 0.9 0.9 0.7 -Post Debridement (cm) - Width 0.7 0.7 0.4 -Post Debridement (cm) - Depth 0.2 0.4 0.2 -Total Square (Post) (cm) 0.63 0.63 0.28 -Area of Debridement (cm) - Length 0.9 0.9 0.7 -Area of Debridement (cm) - Width 0.7 0.7 0.4 -Total Square (Area) (cm) 0.63 0.63 0.28 -Tunneling No No No -Undermining/Tunneling No No No -Circular Undermining No No No -Wound/Ulcer Outcome Not Healed Not Healed Not Healed -Ulcer Cleansing Rinsed/ Rinsed/ Rinsed/ Irrigated with Irrigated with Irrigated with Saline Saline Saline -Foul Odor after Cleansing No No No -Bioengineered Tissue No No No -Bleeding Controlled with Pressure Pressure -Offloading Yes Yes No -Type of Offloading Surgical Shoe Surgical Shoe -Treatment Response Procedure Procedure Procedure Tolerated Well Tolerated Well Tolerated Well -Debridement - Subq, 1st 20sq cm No No No Pain Scale: 0-10 Numeric Is Patient Pain Free? Yes Yes Yes 11/13/20 11/20/20 09:43 09:28 Wound Center Nurse 2 #5- L HEEL FISSURE -Time -Correct Patient -Correct Side, Site, Position -Correct Procedure -Procedure Performed -Type of Procedure -Clinical Debridement -Tissue Removed -Post Debridement (cm) - Length -Post Debridement (cm) - Width -Post Debridement (cm) - Depth -Total Square (Post) (cm) -Area of Debridement (cm) - Length -Area of Debridement (cm) - Width -Total Square (Area) (cm) -Tunneling -Undermining/Tunneling -Circular Undermining -Wound/Ulcer Outcome -Ulcer Cleansing -Foul Odor after Cleansing -Bioengineered Tissue -Bleeding Controlled with -Offloading -Type of Offloading -Treatment Response -Debridement - Subq, 1st 20sq cm #3 4th lateral toe/amp site -Time 09:43 09:29 -Correct Patient Yes Yes -Correct Side, Site, Position Yes Yes -Correct Procedure Yes Yes -Procedure Performed Yes No -Type of Procedure Debridement Debridement -Clinical Debridement Subcutaneous Subcutaneous -Tissue Removed Subcutaneous Subcutaneous -Post Debridement (cm) - Length 2.6 2.7 -Post Debridement (cm) - Width 0.8 0.7 -Post Debridement (cm) - Depth 0.8 0.7 -Total Square (Post) (cm) 2.08 1.89 -Area of Debridement (cm) - Length 2.6 2.7 -Area of Debridement (cm) - Width 0.8 0.7 -Total Square (Area) (cm) 2.08 1.89 -Tunneling No No -Undermining/Tunneling No No -Circular Undermining No No -Wound/Ulcer Outcome Not Healed Not Healed -Ulcer Cleansing Rinsed/ Rinsed/ Irrigated with Irrigated with Saline Saline -Foul Odor after Cleansing No No -Bioengineered Tissue No No -Bleeding Controlled with Pressure Pressure -Offloading Yes Yes -Type of Offloading Surgical Shoe Surgical Shoe -Treatment Response Procedure Procedure Tolerated Well Tolerated Well -Debridement - Subq, 1st 20sq cm Yes Yes #2 L 5th toe -Time 09:44 09:31 -Correct Patient Yes Yes -Correct Side, Site, Position Yes Yes -Correct Procedure Yes Yes -Procedure Performed Yes Yes -Type of Procedure Debridement Debridement -Clinical Debridement Subcutaneous Subcutaneous -Tissue Removed Subcutaneous Subcutaneous -Post Debridement (cm) - Length 0.9 1 -Post Debridement (cm) - Width 0.9 0.8 -Post Debridement (cm) - Depth 0.1 0.1 -Total Square (Post) (cm) 0.81 0.8 -Area of Debridement (cm) - Length 0.9 1 -Area of Debridement (cm) - Width 0.9 0.8 -Total Square (Area) (cm) 0.81 0.8 -Tunneling No No -Undermining/Tunneling No No -Circular Undermining No No -Wound/Ulcer Outcome Not Healed Not Healed -Ulcer Cleansing Rinsed/ Rinsed/ Irrigated with Irrigated with Saline Saline -Foul Odor after Cleansing No No -Bioengineered Tissue No No -Bleeding Controlled with Pressure Pressure -Offloading Yes Yes -Type of Offloading Surgical Shoe Surgical Shoe -Treatment Response Procedure Procedure Tolerated Well Tolerated Well -Debridement - Subq, 1st 20sq cm No No #1 L Grt Toe -Time 09:51 09:31 -Correct Patient Yes Yes -Correct Side, Site, Position Yes Yes -Correct Procedure Yes Yes -Procedure Performed Yes Yes -Type of Procedure Debridement Debridement -Clinical Debridement Subcutaneous Subcutaneous -Tissue Removed Subcutaneous Subcutaneous -Post Debridement (cm) - Length 0.5 0.5 -Post Debridement (cm) - Width 0.4 0.4 -Post Debridement (cm) - Depth 0.2 0.2 -Total Square (Post) (cm) 0.20 0.20 -Area of Debridement (cm) - Length 0.5 0.5 -Area of Debridement (cm) - Width 0.4 0.4 -Total Square (Area) (cm) 0.20 0.20 -Tunneling No No -Undermining/Tunneling No No -Circular Undermining No No -Wound/Ulcer Outcome Not Healed Not Healed -Ulcer Cleansing Rinsed/ Rinsed/ Irrigated with Irrigated with Saline Saline -Foul Odor after Cleansing No No -Bioengineered Tissue No No -Bleeding Controlled with Pressure Pressure -Offloading Yes Yes -Type of Offloading Surgical Shoe Surgical Shoe -Treatment Response Procedure Procedure Tolerated Well Tolerated Well -Debridement - Subq, 1st 20sq cm No No Pain Scale: 0-10 Numeric Is Patient Pain Free? Yes Yes - Nurse 3 - General Ulcer D/C NN Start: 10/23/20 09:09 Freq: Status: Active Protocol: Activity Type Activity Date Activity User E-Sign Co-Sign Detail Recorded Client Recorded Date Recorded By Document 10/23/20 09:40 [id number] 10/23/20 09:41 JF Document 10/30/20 09:55 DL [id number] 10/30/20 09:58 DL Document 11/06/20 10:02 DL [id number] 11/06/20 10:03 DL Document 11/13/20 10:05 DL [id number] 11/13/20 10:06 DL Document 11/20/20 09:51 [id number] 11/20/20 09:51 JF 10/23/20 10/30/20 11/06/20 09:40 09:55 10:02 Wound Care Nurse 3 #5- L HEEL FISSURE -Ulcer Cleansing Rinsed/ Irrigated with Saline -Foul Odor after Cleansing No -Primary Dressing Applied C Hydrogel ($) -Primary Dressing Covered/Secured with Dry Gauze & Roll Gauze, Secured with Tape #3 4th lateral toe/amp site -Ulcer Cleansing Rinsed/ Wound Cleanser Rinsed/ Irrigated with Irrigated with Saline Saline -Foul Odor after Cleansing No No No -Primary Dressing Applied C Hydrogel ($) -Other Dressing hydrogel today santyl -Primary Dressing Covered/Secured with Dry Gauze & Dry Gauze & Dry Gauze & Roll Gauze, Roll Gauze, Roll Gauze, Secured with Secured with Secured with Tape Tape Tape -Other Covering -Promogran Misty Matter #2 L 5th toe -Ulcer Cleansing Rinsed/ Rinsed/ Rinsed/ Irrigated with Irrigated with Irrigated with Saline Saline Saline -Foul Odor after Cleansing No No -Negative Pressure Wound Therapy Discontinue -Primary Dressing Applied C Hydrogel ($) -Other Dressing hydrogel today santyl -Primary Dressing Covered/Secured with Dry Gauze & Dry Gauze & Dry Gauze & Roll Gauze, Roll Gauze, Roll Gauze, Secured with Secured with Secured with Tape Tape Tape -Other Covering #1 L Grt Toe -Ulcer Cleansing Rinsed/ Rinsed/ Rinsed/ Irrigated with Irrigated with Irrigated with Saline Saline Saline -Foul Odor after Cleansing No No No -Primary Dressing Applied C Hydrogel ($) -Other Dressing hydrogel today santyl -Primary Dressing Covered/Secured with Dry Gauze & Dry Gauze & Dry Gauze & Roll Gauze, Roll Gauze, Roll Gauze, Secured with Secured with Secured with Tape Tape Tape -Other Covering Treatment Response Procedure Procedure Tolerated Well Tolerated Well Pain Scale: 0-10 Numeric Is Patient Pain Free? Yes Yes Yes WC - Visit Discharge Discharge Condition Stable Stable Stable Ambulatory Status Ambulatory,Cane Ambulatory Ambulatory,Cane Transportation Private Auto Private Auto Private Auto Accompanied by granddaughter Medication Reconcilliation completed & Yes provided to patient/care provider Clinical Summary of Care Provided Yes Notes: Pt to resume Santyl at home Facility Type Home Health Orders Sent Yes 11/13/20 11/20/20 10:05 09:51 Wound Care Nurse 3 #5- L HEEL FISSURE -Ulcer Cleansing -Foul Odor after Cleansing -Primary Dressing Applied -Primary Dressing Covered/Secured with #3 4th lateral toe/amp site -Ulcer Cleansing Rinsed/ Irrigated with Saline -Foul Odor after Cleansing No No -Primary Dressing Applied Promogran C Hydrogel ($) Misty Matter -Other Dressing -Primary Dressing Covered/Secured with Dry Gauze & Dry Gauze & Roll Gauze, Roll Gauze, Secured with Secured with Tape Tape -Other Covering drsg per dl appetizer packer -Promogran Misty Matter 1 #2 L 5th toe -Ulcer Cleansing Rinsed/ Rinsed/ Irrigated with Irrigated with Saline Saline -Foul Odor after Cleansing No No -Negative Pressure Wound Therapy -Primary Dressing Applied Other C Hydrogel ($) -Other Dressing hydrogel -Primary Dressing Covered/Secured with Dry Gauze & Dry Gauze & Roll Gauze, Roll Gauze, Secured with Secured with Tape Tape -Other Covering drsg per dl appetizer packer #1 L Grt Toe -Ulcer Cleansing Rinsed/ Rinsed/ Irrigated with Irrigated with Saline Saline -Foul Odor after Cleansing No No -Primary Dressing Applied Other C Hydrogel ($) -Other Dressing hydrogel -Primary Dressing Covered/Secured with Dry Gauze & Dry Gauze & Roll Gauze, Roll Gauze, Secured with Secured with Tape,Other Tape -Other Covering drsg per dl appetizer packer Treatment Response Procedure Tolerated Well Pain Scale: 0-10 Numeric Is Patient Pain Free? Yes Yes WC - Visit Discharge Discharge Condition Stable Stable Ambulatory Status Ambulatory,Cane Ambulatory,Cane Transportation Private Auto Accompanied by gr daughter granddaughter Medication Reconcilliation completed & Yes provided to patient/care provider Clinical Summary of Care Provided Yes Notes: Facility Type Home Health Orders Sent Wound debrided: Hallux, fifth digit, fourth digit amputation site Laterality: Left Type of Debridement: Excisional debridement Anesthesia Used: 4% Lidocaine Solution Depth: in the subcutaneous layer Percentage of wound debrided: 100 Instrument Used: 3mm curette Tissue Removed: includes fibrous, devitalized, biofilm, callus and slough tissue Severity: Fat Layer Exposed Amount of bleeding with debridement: Mild Bleeding Controlled with: Pressure Patient tolerated procedure: Patient tolerated procedure well Assessment/Plan Assessment/Plan (1) Non-pressure chronic ulcer of other part of left foot with fat layer exposed: CODE(S): L97.522 - Non-pressure chronic ulcer of other part of left foot with fat layer exposed (2) 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 (3) Skin ulcer of left heel, limited to breakdown of skin: CODE(S): L97.421 - Non-pressure chronic ulcer of left heel and midfoot limited to breakdown of skin (4) Post-op pain: CODE(S): G89.18 - Other acute postprocedural pain (5) Ischaemic rest pain of lower extremity: CODE(S): M79.606 - Pain in leg, unspecified; I99.8 - Other disorder of circulatory system (6) Open wound of left foot: CODE(S): S91.302A - Unspecified open wound, left foot, initial encounter QUALIFIERS: Encounter type: subsequent encounter Qualified Code(s): S91.302D - Unspecified open wound, left foot, subsequent encounter (7) Foot pain, left: CODE(S): M79.672 - Pain in left foot (8) Amputated toe: CODE(S): S98.139A - Complete traumatic amputation of one unspecified lesser toe, initial encounter QUALIFIERS: Laterality: left Qualified Code(s): S98.132A - Complete traumatic amputation of one left lesser toe, initial encounter (9) History of tobacco abuse: CODE(S): Z87.891 - Personal history of nicotine dependence (10) Type 2 diabetes mellitus: CODE(S): E11.9 - Type 2 diabetes mellitus without complications QUALIFIERS: Diabetes mellitus complication detail: with peripheral angiopathy with gangrene Diabetes mellitus complication status: with circulatory complication Diabetes mellitus halfway insulin use: unspecified continuous churn 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 Overall improvement noted in wounds with less of fibrotic tissue noted. There is decrease in edema and pain noted. Patient saw Dr Nicholson who she is seeing again tomorrow to have an ultrasound done to assess a lump to see if that is impacting her vascular procedure. She continues to take antibiotic for thigh cellultis Recommend daily Santyl dressing changes to fifth ulceration sites to start hydrogel to 1st digit and fourth digit amputation site. After verbal consent was obtained sharp excisional debridement of all ulceration sites was carried out Patient noted to have peripheral vascular disease. Patient has been seeing Dr. Nicholson for management of this. Patient had intervention on 06/12/2020 with some regression of her vascular status noted. Patient had intervention again on 10/11/2020 this was performed at [facility]. Patient noted to have had a left iliofemoral profunda endorterectomy with patch angioplasty, balloon angioplasty of femororal popliteal artery as well as peroneal artery. Patient has follow-up with Dr. Nicholson tomorrow. Patient was hospitalized on 07/07/20 for worsening 4th toe ulceration and blood in stool. Patient was noted to have rapid increase in gangrene to 4th digit. Amputation of 4th digit and debridement of 1st and 5th digit was performed 07/08/20. OM was confirmed with [facility]. Patient was discharged on Levaquin every other day due to kidney function she has since finished. Reviewed proper wound care with patient. Discussed with the patient the importance of offloading the sites with wide enough shoe gear if she is to be wearing shoes, proper diet, good blood sugar control. Patient has offloading boot. Discussed with the patient all concerning signs and symptoms to watch out for and to contact office if he either presents. X-ray from 10/05/2020 showed amputation of the fourth digit. There is no other bony changes consistent with osteomyelitis noted to remaining digits at ulceration sites. There is no fractures or soft tissue emphysema noted cultures obtained 10/05/2020 demonstrated Pseudomonas aeruginosa. Discussed with the patient that given her restored vascular status that there is a chance that she would be able to now heal all of her wounds. Discussed that there is a possibility that there has been too much damage done to the fifth digit in order to save it. We will continue to monitor closely. Discussed with patient possibility of amputation of the fifth digit. Discussed that patient has several weeks to make a decision as we continue to monitor wound to make a decision. Discussed this with patient as well as family members. Discussed that there is every possibility now that she could have the blood flow to heal the wounds. We will continue to monitor closely. Application for TheraSkin skin graft is approved but there is a portion that patient has cover [id number]. Patient will discuss with family if this is doable if she wants to proceed with this next week she will let us know. She is still considering this option. Patient is to follow-up in 1 week. This note was generated with [employer] dictation software. It may contain incorrect words, spelling, and punctuation that were not noted in checking the note before signing.
== END 2020-11-21 23:59 ==
LOC: WC 08:45
PROVIDERS: PCP Family Medicine; Referring Provider Podiatrist; Visit Provider Podiatrist Foot & Ankle Surgery
DX: L97.522 Non-pressure chronic ulcer of other part of left foot with fat layer exposed (principal); L97.526 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 without evidence of necrosis; L97.421 Non-pressure chronic ulcer of left heel and midfoot limited to breakdown of skin; G89.18 Other acute postprocedural pain; M79.606 Pain in leg, unspecified; S91.302D Unspecified open wound, left foot, subsequent encounter; E11.52 Type 2 diabetes mellitus with diabetic peripheral angiopathy with gangrene; Z87.891 Personal history of nicotine dependence; I77.9 Disorder of arteries and arterioles, unspecified; I73.9 Peripheral vascular disease, unspecified
CPT/HCPCS: 11042

== ENCOUNTER 2020-12-04 08:45 | Outpatient (RCR) | payer MEDICARE, SELFPAY ==
[2020-11-22 00:21] VITALS: BP 151/67; PULSE 66; RESP 16; TEMP 36.6; BMI 23.5
[2020-11-27 08:51] VITALS: BP 149/53; PULSE 68; RESP 16; TEMP 36.6; BMI 23.5
--- NOTE | 2020-11-27 09:56 | PN.PCM_ITS ---
History of Present Illness Date of Service: 11/27/20 Chief Complaint: Left foot first, fifth digit ulceration Left fourth digit amputation site ulceration PAD History of Wound: Patient is referral from [facility] 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 Patient has a history of smoking. Patient is diabetic as well but states is very well controlled averaging blood sugar in the low 100s. Patient denies any trauma or rubbing to start the wounds. Patient had intervention done by Dr. Nicholson on 06/12/2020. Since then patient has complaints of post procedure reperfusion pain. She states it is worse at night and she has some relief with dangling of the foot. She has had some increase in redness and swelling noted as well. Patient saw Dr. Tenorio June 26, 2020 and was started on 100mg gabapentin TID. She has noticed some improvement in her pain. 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 Patient was hospitalized 07/07/20 for worsening toe wound and blood in stool. 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 Amputation of 4th digit with debridement of 1st and 5th digit ulcerations was performed 07/08/20. 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 Patient was discharged on levaquin every other day due to impairment of her kidneys. Patient was also discharged on oxycodone. Patient relates improvement of her pain since surgery. Patient relates she is no longer taking strong pain meds. Patient continues at the wound care center for continued care ulcerations Patient had further intervention with Dr. Nicholson on October 11, 2020. Patient relates having to be transferred to [facility] for this. This was due to staffing issues. She has follow-up appointment with Dr. Nicholson who relates everything is going well Progress of Wound: Improved hallux and fourth digit amputation site ulcerations. Some worsening noted of the fifth digit amputation site Subjective Subjective Patient seen and examined resting comfortably. Patient denies any new pedal complaints. Patient denies any nausea, fever, chills, chest pain, shortness of breath, cough, streaking, purulence, vomiting. Objective Data Objective Data Vital Signs: Vital Signs Temp Pulse Resp BP 97.8 F 68 16 149/53 H 11/27/20 08:51 11/27/20 08:51 11/27/20 08:51 11/27/20 08:51 Oxygen Delivery Method Room Air Weight: 149 kg Body Mass Index (BMI) 23.5 Physical Exam Narrative Const alert and no apparent distress General Appearance: cooperative and comfortable Lymph Lymphatic: no lymphedema noted Resp normal respiratory effort Effort and Inspection: able to speak in complete sentences Extremity no calf tenderness, negative gume and garcia sign Lower extremity and pedal and lower extremity edema left greater than right General Extremity: no tenderness to palpation of joints or extremities; Negative for clubbing or cyanosis or ecchymosis or erythema Vasc Peripheral Pulses: Yes posterior tibial pulses present +1 and dorsalis pedis pulses present +1, normal capillary refill, no acute ischemic skin changes noted. Capillary fill time less than 3 seconds to all remaining digits left foot Skin General Skin Exam: dry skin and venous stasis, decreased hair growth noted; Negative for ecchymosis, eschar, pallor. Wound Narrative: ulcers noted to left first, fifth toes and fourth amputation site No malodor, purulence, streaking, fluctuation, crepitus. Skin is atrophic and hairless. Wounds to fifth digits have a less fibrotic base. Fifth toe wound noted to now have joint exposure with bone visualized. Fourth digit amputation site no longer probes to bone. Granular base noted to first digit and fourth di git amputation site. Improvement noted to patient's coloration to lower extremity. More normal healthy pink coloration with normal capillary fill time noted to remaining digits. Pulses were able to be felt. There is postprocedural edema noted this is improved from last week. Normal skin temperature regained. Foot is warm Wound noted to posterior plantar heel remains healed Neuro Gait (Neuro): heel to toe Sensory Exam: extremities light-touch: decreased MSK Motor Exam: strength 5/5 throughout, ROM to foot and ankle joints within normal limits Psych Appearance: appropriate Attitude: calm Debridement Note Debridement Note Post-Debridement Measurements and Additional Note: Post-Debridement Measurements/Treatment SOPHIA - Nurse 1 - General Ulcer Assessment Start: 11/27/20 08:48 Freq: Status: Active Protocol: ESVIN Activity Type Activity Date Activity User E-Sign Co-Sign Detail Recorded Client Recorded Date Recorded By Document 11/27/20 08:51 [facility] Desktop 11/27/20 09:01 [facility] 11/27/20 08:51 - Today's Visit Information Type of service 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 ) Arrival Mode Ambulatory,Cane Transfer Assistance None Accompanied by daughter Patient Identification Verified (Name & Yes ) Patient Requires Transmission-Based No Precautions Height and Weight Body Mass Index (BMI) 23.5 BMI Classification Normal Vital Signs Temperature (97.8 F-99.1 F) 97.8 F Temperature Source Temporal Pulse Rate (60-100) 68 Pulse Location Monitor Respiratory Rate (12-18) 16 Respiratory rate source Observation Oxygen Delivery Method Room Air Blood Pressure (90/60-120/80) 149/53 H Blood Pressure Mean (mm Hg) 85 Source Monitor Position Sitting Blood Pressure Location Left Arm History Since Last Visit- (Skip if this is Patient's initial visit) Have you changed medications since your No last visit? Any new allergies or adverse reactions No Had a fall/change in ADL's that may No increase risk of falls Signs or symptoms of abuse and/or No neglect since last visit Have you been in the hospital since your No last visit? Has dressing in place as prescribed Yes Has compression in place as prescribed N/A Has offloadiing in place as prescribed Yes Experienced any changes in pain level or No management Left Footwear Surgical Shoe with pressure relief insole Right Footwear Regular Shoe Pain Scale: 0-10 Numeric Is Patient Pain Free? Yes - Nurse 1 - General Ulcer Measurement Start: 11/27/20 08:48 Freq: Status: Active Protocol: Activity Type Activity Date Activity User E-Sign Co-Sign Detail Recorded Client Recorded Date Recorded By Document 11/27/20 08:51 [facility] Desktop 11/27/20 09:01 [facility] 11/27/20 08:51 Wound Center Nurse 1 #3 4th lateral toe/amp site -Combined with other wound No -Current Size (cm) - Length 2.7 -Current Size (cm) - Width 0.7 -Current Size (cm) - Depth 0.4 -Total Square Cm 1.89 -Photo Taken No -Epithelialization None Present -Tunneling No -Undermining/Tunneling No -Circular Undermining No -Exudate Amt Medium -Exudate Type Serous -Wound Margin Distinct, Outline Attached -Granulation Amt Medium (34-66%) -Granulation Quality Red -Slough/Fibrin Yes -Necrosis Amt Medium (34-66%) -Necrotic Tissue Type Adherent Slough -Texture (Dot-wound Skin Appearance) Assessed, Scarring -Moisture (Dot-wound Skin Appearance) Assessed, Maceration -Color (Dot-wound Skin Appearance) Assessed, Erythema,Palor -Temperature (Dot-wound Skin No Abnormality Appearance) (Pt Warm) -Tenderness on Palpation (Dot-wound Yes Skin Appearance) -Ulcer Cleansing Rinsed/ Irrigated with Saline -Foul Odor after Cleansing No -Anesthetic Used 5% Lidocaine Gel #2 L 5th toe -Combined with other wound No -Current Size (cm) - Length 1.2 -Current Size (cm) - Width 0.7 -Current Size (cm) - Depth 0.2 -Total Square Cm 0.84 -Photo Taken No -Epithelialization None Present -Tunneling No -Undermining/Tunneling No -Circular Undermining No -Exudate Amt Small -Exudate Type Serous -Wound Margin Distinct, Outline Attached -Granulation Amt Small (1-33%) -Granulation Quality Red -Slough/Fibrin Yes -Necrosis Amt Large (67-100%) -Necrotic Tissue Type Adherent Slough -Structure Exposed Tendon -Texture (Dot-wound Skin Appearance) Assessed, Scarring -Moisture (Dot-wound Skin Appearance) Assessed -Color (Dot-wound Skin Appearance) Assessed, Erythema -Temperature (Dot-wound Skin No Abnormality Appearance) (Pt Warm) -Tenderness on Palpation (Dot-wound No Skin Appearance) -Ulcer Cleansing Rinsed/ Irrigated with Saline -Foul Odor after Cleansing No -Anesthetic Used 5% Lidocaine Gel #1 L Grt Toe -Combined with other wound No -Current Size (cm) - Length 0.4 -Current Size (cm) - Width 0.2 -Current Size (cm) - Depth 0.3 -Total Square Cm 0.08 -Photo Taken No -Epithelialization None Present -Tunneling No -Undermining/Tunneling No -Circular Undermining No -Exudate Amt Small -Exudate Type Serous -Wound Margin Distinct, Outline Attached -Granulation Amt None Present (0 %) -Slough/Fibrin Yes -Necrosis Amt Large (67-100%) -Necrotic Tissue Type Adherent Slough -Texture (Dot-wound Skin Appearance) Assessed, Scarring -Moisture (Dot-wound Skin Appearance) Assessed -Color (Dot-wound Skin Appearance) Assessed -Temperature (Dot-wound Skin No Abnormality Appearance) (Pt Warm) -Tenderness on Palpation (Dot-wound No Skin Appearance) -Ulcer Cleansing Rinsed/ Irrigated with Saline -Foul Odor after Cleansing No -Anesthetic Used 5% Lidocaine Gel WC - Nurse 2 - General Ulcer CM Notes Start: 11/27/20 08:48 Freq: Status: Active Protocol: Activity Type Activity Date Activity User E-Sign Co-Sign Detail Recorded Client Recorded Date Recorded By Document 11/27/20 09:11 [facility] [id number] 11/27/20 09:34 [facility] 11/27/20 09:11 Wound Center Nurse 2 #3 4th lateral toe/amp site -Time 09:12 -Correct Patient Yes -Correct Side, Site, Position Yes -Correct Procedure Yes -Procedure Performed Yes -Type of Procedure Debridement -Clinical Debridement Subcutaneous -Tissue Removed Subcutaneous -Post Debridement (cm) - Length 2.4 -Post Debridement (cm) - Width 0.6 -Post Debridement (cm) - Depth 1.0 -Total Square (Post) (cm) 1.44 -Area of Debridement (cm) - Length 2.4 -Area of Debridement (cm) - Width 0.6 -Total Square (Area) (cm) 1.44 -Tunneling No -Undermining/Tunneling No -Circular Undermining No -Wound/Ulcer Outcome Not Healed -Ulcer Cleansing Rinsed/ Irrigated with Saline -Foul Odor after Cleansing No -Bioengineered Tissue No -Bleeding Controlled with Pressure -Offloading Yes -Type of Offloading Surgical Shoe -Treatment Response Procedure Tolerated Well -Debridement - Subq, 1st 20sq cm Yes #2 L 5th toe -Time 09:13 -Correct Patient Yes -Correct Side, Site, Position Yes -Correct Procedure Yes -Procedure Performed Yes -Type of Procedure Debridement -Clinical Debridement Subcutaneous -Tissue Removed Subcutaneous -Post Debridement (cm) - Length 1 -Post Debridement (cm) - Width 0.8 -Post Debridement (cm) - Depth 0.2 -Total Square (Post) (cm) 0.8 -Area of Debridement (cm) - Length 1 -Area of Debridement (cm) - Width 0.8 -Total Square (Area) (cm) 0.8 -Tunneling No -Undermining/Tunneling No -Circular Undermining No -Wound/Ulcer Outcome Not Healed -Ulcer Cleansing Rinsed/ Irrigated with Saline -Foul Odor after Cleansing No -Bioengineered Tissue No -Bleeding Controlled with Pressure -Offloading Yes -Type of Offloading Surgical Shoe -Treatment Response Procedure Tolerated Well -Debridement - Subq, 1st 20sq cm No #1 L Grt Toe -Time 09:13 -Correct Patient Yes -Correct Side, Site, Position Yes -Correct Procedure Yes -Procedure Performed Yes -Type of Procedure Debridement -Clinical Debridement Subcutaneous -Tissue Removed Subcutaneous -Post Debridement (cm) - Length 0.4 -Post Debridement (cm) - Width 0.3 -Post Debridement (cm) - Depth 0.2 -Total Square (Post) (cm) 0.12 -Area of Debridement (cm) - Length 0.4 -Area of Debridement (cm) - Width 0.3 -Total Square (Area) (cm) 0.12 -Tunneling No -Undermining/Tunneling No -Circular Undermining No -Wound/Ulcer Outcome Not Healed -Ulcer Cleansing Rinsed/ Irrigated with Saline -Foul Odor after Cleansing No -Bioengineered Tissue No -Bleeding Controlled with Pressure -Offloading Yes -Type of Offloading Surgical Shoe -Treatment Response Procedure Tolerated Well -Debridement - Subq, 1st 20sq cm No Pain Scale: 0-10 Numeric Is Patient Pain Free? Yes - Nurse 3 - General Ulcer D/C NN Start: 11/27/20 08:48 Freq: Status: Active Protocol: Activity Type Activity Date Activity User E-Sign Co-Sign Detail Recorded Client Recorded Date Recorded By Document 11/27/20 09:34 [facility] [id number] 11/27/20 09:35 [facility] 11/27/20 09:34 Wound Care Nurse 3 #3 4th lateral toe/amp site -Ulcer Cleansing Rinsed/ Irrigated with Saline -Foul Odor after Cleansing No -Primary Dressing Applied C Hydrogel ($) -Primary Dressing Covered/Secured with Dry Gauze #2 L 5th toe -Ulcer Cleansing Rinsed/ Irrigated with Saline -Foul Odor after Cleansing No -Primary Dressing Applied Enzymatic #1 L Grt Toe -Ulcer Cleansing Rinsed/ Irrigated with Saline -Foul Odor after Cleansing No -Primary Dressing Applied C Hydrogel ($) -Primary Dressing Covered/Secured with Dry Gauze Pain Scale: 0-10 Numeric Is Patient Pain Free? Yes - Visit Discharge Discharge Condition Stable Ambulatory Status Ambulatory,Cane Transportation Private Auto Accompanied by daughter Medication Reconcilliation completed & Yes provided to patient/care provider Clinical Summary of Care Provided Yes Wound debrided: Hallux and fourth digit amputation site Laterality: Left Wound Grade/Stage: Luciano 1 Type of Debridement: Excisional debridement Anesthesia Used: 4% Lidocaine Solution Depth: in the subcutaneous layer Percentage of wound debrided: 100 Instrument Used: 3mm curette Tissue Removed: includes fibrous, devitalized, biofilm, callus and slough tissue Severity: Fat Layer Exposed Amount of bleeding with debridement: Mild Bleeding Controlled with: Pressure Patient tolerated procedure: Patient tolerated procedure well Additional Wound Wound debrided: Fifth digit Laterality: Left Wound Grade/Stage: Luciano 2 Type of Debridement: Excisional debridement Anesthesia Used: 4% Lidocaine Solution Depth: to bone (Debrided to subcu) Percentage of wound debrided: 100 Instrument Used: #15 blade and Forceps Tissue Removed: Includes fibrous, devitalized, biofilm, callus and slough tissue Severity: Necrosis of Bone Amount of bleeding with debridement: Mild Bleeding Controlled with: Pressure Patient tolerated procedure: Patient tolerated procedure well Assessment/Plan Assessment/Plan (1) 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 (2) Non-pressure chronic ulcer of other part of left foot with fat layer exposed: CODE(S): L97.522 - Non-pressure chronic ulcer of other part of left foot with fat layer exposed (3) Amputated toe: CODE(S): S98.139A - Complete traumatic amputation of one unspecified lesser toe, initial encounter QUALIFIERS: Laterality: left Qualified Code(s): S98.132A - Complete traumatic amputation of one left lesser toe, initial encounter (4) History of tobacco abuse: CODE(S): Z87.891 - Personal history of nicotine dependence (5) Type 2 diabetes mellitus: CODE(S): E11.9 - Type 2 diabetes mellitus without complications QUALIFIERS: Diabetes mellitus ocean transportation intermediary insulin use: unspecified care home insulin use status Diabetes mellitus complication status: with circul atory complication Diabetes mellitus complication detail: with peripheral angiopathy with gangrene Qualified Code(s): E11.52 - Type 2 diabetes mellitus with diabetic peripheral angiopathy with gangrene (6) PAD (peripheral artery disease): CODE(S): I73.9 - Peripheral vascular disease, unspecified (7) Foot pain, left: CODE(S): M79.672 - Pain in left foot PLAN: Patient seen and examined. Overall improvement noted in wounds to hallux and fourth digit amputation site with improved size. The fifth digit ulceration noted to have worsened with easily exposed fifth digit PIPJ. There is decrease in edema and pain noted. Patient relates that Dr. Nicholson did an ultrasound of the leg and found that there was no impact to his surgery. Recommend daily Santyl dressing changes to fifth ulceration sites to start hydrogel to 1st digit and fourth digit amputation site covered by dry sterile dressing. After verbal consent was obtained sharp excisional debridement of all ulceration sites was carried out Patient noted to have peripheral vascular disease. Patient has been seeing Dr. Nicholson for management of this. Patient had intervention on 06/12/2020 with some regression of her vascular status noted. Patient had intervention again on 10/11/2020 this was performed at [facility]. Patient noted to have had a left iliofemoral profunda endorterectomy with patch angioplasty, balloon angioplasty of femororal popliteal artery as well as peroneal artery. Patient relates that Dr. Nicholson's follow-up ultrasound showed no impact to the intervention site. Reviewed proper wound care with patient. Discussed with the patient the importance of offloading the sites with wide enough shoe gear if she is to be wearing shoes, proper diet, good blood sugar control. Patient has offloading boot. Discussed with the patient all concerning signs and symptoms to watch out for and to contact office if he either presents. X-ray from 10/05/2020 showed amputation of the fourth digit. There is no other bony changes consistent with osteomyelitis noted to remaining digits at ulceration sites. There is no fractures or soft tissue emphysema noted cultures obtained 10/05/2020 demonstrated Pseudomonas aeruginosa. Discussed with the patient that given her restored vascular status that there is a chance that she would be able to now heal all of her wounds. Discussed that there is a possibility that there has been too much damage done to the fifth digit in order to save it. We will continue to monitor closely. Discussed that given its worsening appearance that amputation should more strongly be considered at this time. Discussed all risks and benefits of this. Discussed that given history of wound healing that there is no guarantee that the amputation site incision will close but given recent vascular intervention that our chances are improved from when other amputation site was done. Discussed possibility of seeing if there will be enough skin elasticity to try to primarily close fourth digit amputation site ulceration at the same time. Discussed this with patient as well as family members. Patient to contact office if patient would like to move forward with this procedure. Discussed all risk benefits alternatives complications and to include but not limited to infection delayed healing nonhealing need for further surgery or amputation. Application for TheraSkin skin graft is approved but there is a portion that patient has cover [id number]. Patient will discuss with family if this is doable if she wants to proceed with this next week she will let us know. She is reluctant to move forward due to financial concerns. Patient is to follow-up in 1 week. This note was generated with [employer] dictation software. It may contain incorrect words, spelling, and punctuation that were not noted in checking the note before signing.
[2020-12-04 08:43] VITALS: BP 134/59; PULSE 66; RESP 20; TEMP 36.9; BMI 23.5
--- NOTE | 2020-12-04 09:33 | PN.PCM_ITS ---
History of Present Illness Date of Service: 12/04/20 Chief Complaint: Left foot first, fifth digit ulceration Left fourth digit amputation site ulceration PAD History of Wound: Patient is referral from Dr[facility]ud[facility]. 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 Patient has a history of smoking. Patient is diabetic as well but states is very well controlled averaging blood sugar in the low 100s. Patient denies any trauma or rubbing to start the wounds. Patient had intervention done by Dr. Nicholson on 06/12/2020. Since then patient has complaints of post procedure reperfusion pain. She states it is worse at night and she has some relief with dangling of the foot. She has had some increase in redness and swelling noted as well. Patient saw Dr. Tenorio June 26, 2020 and was started on 100mg gabapentin TID. She has noticed some improvement in her pain. 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 Patient was hospitalized 07/07/20 for worsening toe wound and blood in stool. 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 Amputation of 4th digit with debridement of 1st and 5th digit ulcerations was performed 07/08/20. 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 Patient was discharged on levaquin every other day due to impairment of her kidneys. Patient was also discharged on oxycodone. Patient relates improvement of her pain since surgery. Patient relates she is no longer taking strong pain meds. Patient continues at the wound care center for continued care ulcerations Patient had further intervention with Dr. Nicholson on October 11, 2020. Patient relates having to be transferred to [place] for this. This was due to staffing issues. She has follow-up appointment with Dr. Nicholson who relates everything is going well Progress of Wound: Improved hallux and fourth digit amputation site ulcerations. Stable fifth digit ulceration Subjective Subjective Patient seen and examined resting comfortably. Patient denies any new pedal complaints. Patient denies any nausea, fever, chills, chest pain, shortness of breath, cough, streaking, purulence, vomiting. Objective Data Objective Data Vital Signs: Vital Signs Temp Pulse Resp BP 98.5 F 66 20 H 134/59 H 12/04/20 08:43 12/04/20 08:43 12/04/20 08:43 12/04/20 08:43 Oxygen Delivery Method Room Air Weight: 149 kg Body Mass Index (BMI) 23.5 Physical Exam Narrative Const alert and no apparent distress General Appearance: cooperative and comfortable Lymph Lymphatic: no lymphedema noted Resp normal respiratory effort Effort and Inspection: able to speak in complete sentences Extremity no calf tenderness, negative gume and garcia sign Lower extremity and pedal and lower extremity edema left greater than right General Extremity: no tenderness to palpation of joints or extremities; Negative for clubbing or cyanosis or ecchymosis or erythema Vasc Peripheral Pulses: Yes posterior tibial pulses present +1 and dorsalis pedis pulses present +1, normal capillary refill, no acute ischemic skin changes noted. Capillary fill time less than 3 seconds to all remaining digits left foot Skin General Skin Exam: dry skin and venous stasis, decreased hair growth noted; Negative for ecchymosis, eschar, pallor. Wound Narrative: ulcers noted to left first, fifth toes and fourth amputation site No malodor, purulence, streaking, fluctuation, crepitus. Skin is atrophic and hairless. Wound to fifth digits have a less fibrotic base. Fifth toe wound noted to now have joint exposure with bone visualized but there is less fibrotic tissue buildup noted. Fourth digit amputation site no longer probes to bone and there is more granulation tissue noted. Granular base noted to first digit and fourth digit amputation site. Improvement noted to patient's coloration to lower extremity. More normal healthy pink coloration with normal capillary fill time noted to remaining digits. Pulses were able to be felt. There is postprocedural edema noted this is improved from last week. Normal skin temperature regained. Foot is warm Wound noted to posterior plantar heel remains healed Neuro Gait (Neuro): heel to toe Sensory Exam: extremities light-touch: decreased MSK Motor Exam: strength 5/5 throughout, ROM to foot and ankle joints within normal limits Psych Appearance: appropriate Attitude: calm Debridement Note Debridement Note Post-Debridement Measurements and Additional Note: Post-Debridement Measurements/Treatment SOPHIA - Nurse 1 - General Ulcer Assessment Start: 11/27/20 08:48 Freq: Status: Active Protocol: SOPHIA.NORMA Activity Type Activity Date Activity User E-Sign Co-Sign Detail Recorded Client Recorded Date Recorded By Document 11/27/20 08:51 [facility] Desktop 11/27/20 09:[address] [facility] Document 12/04/20 08:43 DL [id number] 12/04/20 08:52 DL 11/27/20 12/04/20 08:51 08:43 - Today's Visit Information Type of service Follow-up Visit Follow-up Visit (Physician/HEALTH AND NUTRITION SPECIALIST (Physician/HEALTH AND NUTRITION SPECIALIST ) ) Arrival Mode Ambulatory,Cane Ambulatory Transfer Assistance None None Accompanied by daughter Patient Identification Verified (Name & Yes Yes ) Patient Requires Transmission-Based No No Precautions Finger Stick Blood Sugar(mg/dl) (if 175 indicated): Blood Sugar Stated by Patient Height and Weight Body Mass Index (BMI) 23.5 23.5 BMI Classification Normal Normal Vital Signs Temperature (97.8 F-99.1 F) 97.8 F 98.5 F Temperature Source Temporal Temporal Pulse Rate (60-100) 68 66 Pulse Location Monitor Monitor Respiratory Rate (12-18) 16 20 H Respiratory rate source Observation Observation Oxygen Delivery Method Room Air Blood Pressure (90/60-120/80) 149/53 H 134/59 H Blood Pressure Mean (mm Hg) 85 84 Source Monitor Monitor Position Sitting Blood Pressure Location Left Arm History Since Last Visit- (Skip if this is Patient's initial visit) Have you changed medications since your No No last visit? Any new allergies or adverse reactions No No Had a fall/change in ADL's that may No No increase risk of falls Signs or symptoms of abuse and/or No No neglect since last visit Have you been in the hospital since your No No last visit? Has dressing in place as prescribed Yes Yes Has compression in place as prescribed N/A N/A Has offloadiing in place as prescribed Yes Yes Experienced any changes in pain level or No No management Left Footwear Surgical Shoe Surgical Shoe with pressure with pressure relief insole relief insole Right Footwear Regular Shoe Pain Scale: 0-10 Numeric Is Patient Pain Free? Yes Yes - Nurse 1 - General Ulcer Measurement Start: 11/27/20 08:48 Freq: Status: Active Protocol: Activity Type Activity Date Activity User E-Sign Co-Sign Detail Recorded Client Recorded Date Recorded By Document 11/27/20 08:[address] [facility] Desktop 11/27/20 09:[address] [facility] Document 12/04/20 08:43 DL [id number] 12/04/20 08:52 DL 11/27/20 12/04/20 08:51 08:43 Wound Center Nurse 1 #3 4th lateral toe/amp site -Combined with other wound No -Current Size (cm) - Length 2.7 2.3 -Current Size (cm) - Width 0.7 0.7 -Current Size (cm) - Depth 0.4 0.6 -Total Square Cm 1.89 1.61 -Photo Taken No No -Epithelialization None Present -Tunneling No -Undermining/Tunneling No -Circular Undermining No -Exudate Amt Medium Medium -Exudate Type Serous Serosanguineous -Wound Margin Distinct, Distinct, Outline Outline Attached Attached -Granulation Amt Medium (34-66%) Medium (34-66%) -Granulation Quality Red Red -Slough/Fibrin Yes -Necrosis Amt Medium (34-66%) Medium (34-66%) -Necrotic Tissue Type Adherent Slough Adherent Slough -Structure Exposed N/A -Texture (Dot-wound Skin Appearance) Assessed, Localized Edema Scarring ,Scarring -Moisture (Dot-wound Skin Appearance) Assessed, No Abnormality Maceration -Color (Dot-wound Skin Appearance) Assessed, Erythema Erythema,Palor -Temperature (Dot-wound Skin No Abnormality No Abnormality Appearance) (Pt Warm) (Pt Warm) -Tenderness on Palpation (Dot-wound Yes No Skin Appearance) -Ulcer Cleansing Rinsed/ Rinsed/ Irrigated with Irrigated with Saline Saline -Foul Odor after Cleansing No No -Anesthetic Used 5% Lidocaine 4% Lidocaine Gel Solution #2 L 5th toe -Combined with other wound No -Current Size (cm) - Length 1.2 0.9 -Current Size (cm) - Width 0.7 0.8 -Current Size (cm) - Depth 0.2 0.2 -Total Square Cm 0.84 0.72 -Photo Taken No No -Epithelialization None Present -Tunneling No -Undermining/Tunneling No -Circular Undermining No -Exudate Amt Small Medium -Exudate Type Serous Serosanguineous -Wound Margin Distinct, Distinct, Outline Outline Attached Attached -Granulation Amt Small (1-33%) Medium (34-66%) -Granulation Quality Red Mullen -Slough/Fibrin Yes -Necrosis Amt Large (67-100%) Medium (34-66%) -Necrotic Tissue Type Adherent Slough Adherent Slough -Structure Exposed Tendon N/A -Texture (Dot-wound Skin Appearance) Assessed, Localized Edema Scarring ,Scarring -Moisture (Dot-wound Skin Appearance) Assessed No Abnormality -Color (Dot-wound Skin Appearance) Assessed, Erythema Erythema -Temperature (Dot-wound Skin No Abnormality No Abnormality Appearance) (Pt Warm) (Pt Warm) -Tenderness on Palpation (Dot-wound No No Skin Appearance) -Ulcer Cleansing Rinsed/ Rinsed/ Irrigated with Irrigated with Saline Saline -Foul Odor after Cleansing No No -Anesthetic Used 5% Lidocaine 4% Lidocaine Gel Solution #1 L Grt Toe -Combined with other wound No -Current Size (cm) - Length 0.4 0.5 -Current Size (cm) - Width 0.2 0.2 -Current Size (cm) - Depth 0.3 0.2 -Total Square Cm 0.08 0.10 -Photo Taken No No -Epithelialization None Present -Tunneling No -Undermining/Tunneling No -Circular Undermining No -Exudate Amt Small Small -Exudate Type Serous Serosanguineous -Wound Margin Distinct, Distinct, Outline Outline Attached Attached -Granulation Amt None Present (0 Small (1-33%) %) -Granulation Quality Mullen -Slough/Fibrin Yes -Necrosis Amt Large (67-100%) Small (1-33%) -Necrotic Tissue Type Adherent Slough Adherent Slough -Structure Exposed N/A -Texture (Dot-wound Skin Appearance) Assessed, Scarring Scarring -Moisture (Dot-wound Skin Appearance) Assessed Dry/Scaly -Color (Dot-wound Skin Appearance) Assessed No Abnormality -Temperature (Dot-wound Skin No Abnormality No Abnormality Appearance) (Pt Warm) (Pt Warm) -Tenderness on Palpation (Dot-wound No No Skin Appearance) -Ulcer Cleansing Rinsed/ Rinsed/ Irrigated with Irrigated with Saline Saline -Foul Odor after Cleansing No No -Anesthetic Used 5% Lidocaine 4% Lidocaine Gel Solution Left Calf (cm) 35.5 Left Ankle (cm) 21.4 WC - Nurse 2 - General Ulcer CM Notes Start: 11/27/20 08:48 Freq: Status: Active Protocol: Activity Type Activity Date Activity User E-Sign Co-Sign Detail Recorded Client Recorded Date Recorded By Document 11/27/20 09:11 JF [id number] 11/27/20 09:34 Document 12/04/20 09:01 MW [id number] 12/04/20 09:08 MW 11/27/20 12/04/20 09:11 09:01 Wound Center Nurse 2 #3 4th lateral toe/amp site -Time 09:12 09:01 -Correct Patient Yes Yes -Correct Side, Site, Position Yes Yes -Correct Procedure Yes Yes -Procedure Performed Yes Yes -Type of Procedure Debridement Debridement -Clinical Debridement Subcutaneous Subcutaneous -Tissue Removed Subcutaneous Subcutaneous -Post Debridement (cm) - Length 2.4 2.6 -Post Debridement (cm) - Width 0.6 0.8 -Post Debridement (cm) - Depth 1.0 0.8 -Total Square (Post) (cm) 1.44 2.08 -Area of Debridement (cm) - Length 2.4 2.6 -Area of Debridement (cm) - Width 0.6 0.8 -Total Square (Area) (cm) 1.44 2.08 -Tunneling No No -Undermining/Tunneling No No -Circular Undermining No No -Wound/Ulcer Outcome Not Healed Not Healed -Ulcer Cleansing Rinsed/ Rinsed/ Irrigated with Irrigated with Saline Saline -Foul Odor after Cleansing No No -Bioengineered Tissue No No -Bleeding Controlled with Pressure Pressure -Offloading Yes No -Type of Offloading Surgical Shoe -Treatment Response Procedure Procedure Tolerated Well Tolerated Well -Debridement - Subq, 1st 20sq cm Yes Yes #2 L 5th toe -Time 09: 09:02 -Correct Patient Yes Yes -Correct Side, Site, Position Yes Yes -Correct Procedure Yes Yes -Procedure Performed Yes Yes -Type of Procedure Debridement Debridement -Clinical Debridement Subcutaneous Subcutaneous -Tissue Removed Subcutaneous Subcutaneous -Post Debridement (cm) - Length 1 0.9 -Post Debridement (cm) - Width 0.8 0.9 -Post Debridement (cm) - Depth 0.2 0.3 -Total Square (Post) (cm) 0.8 0.81 -Area of Debridement (cm) - Length 1 0.9 -Area of Debridement (cm) - Width 0.8 0.9 -Total Square (Area) (cm) 0.8 0.81 -Tunneling No No -Undermining/Tunneling No No -Circular Undermining No No -Wound/Ulcer Outcome Not Healed Not Healed -Ulcer Cleansing Rinsed/ Rinsed/ Irrigated with Irrigated with Saline Saline -Foul Odor after Cleansing No No -Bioengineered Tissue No No -Bleeding Controlled with Pressure Pressure -Offloading Yes No -Type of Offloading Surgical Shoe -Treatment Response Procedure Procedure Tolerated Well Tolerated Well -Debridement - Subq, 1st 20sq cm No No #1 L Grt Toe -Time 09:13 09:02 -Correct Patient Yes Yes -Correct Side, Site, Position Yes Yes -Correct Procedure Yes Yes -Procedure Performed Yes Yes -Type of Procedure Debridement Debridement -Clinical Debridement Subcutaneous Subcutaneous -Tissue Removed Subcutaneous Subcutaneous -Post Debridement (cm) - Length 0.4 0.6 -Post Debridement (cm) - Width 0.3 0.3 -Post Debridement (cm) - Depth 0.2 0.2 -Total Square (Post) (cm) 0.12 0.18 -Area of Debridement (cm) - Length 0.4 0.6 -Area of Debridement (cm) - Width 0.3 0.3 -Total Square (Area) (cm) 0.12 0.18 -Tunneling No No -Undermining/Tunneling No No -Circular Undermining No No -Wound/Ulcer Outcome Not Healed Not Healed -Ulcer Cleansing Rinsed/ Rinsed/ Irrigated with Irrigated with Saline Saline -Foul Odor after Cleansing No No -Bioengineered Tissue No No -Bleeding Controlled with Pressure Pressure -Offloading Yes No -Type of Offloading Surgical Shoe -Treatment Response Procedure Procedure Tolerated Well Tolerated Well -Debridement - Subq, 1st 20sq cm No No Pain Scale: 0-10 Numeric Is Patient Pain Free? Yes Yes - Nurse 3 - General Ulcer D/C NN Start: 11/27/20 08:48 Freq: Status: Active Protocol: Activity Type Activity Date Activity User E-Sign Co-Sign Detail Recorded Client Recorded Date Recorded By Document 11/27/20 09:34 [id number] 11/27/20 09:35 Document 12/04/20 09:[address] [facility] [id number] 12/04/20 09:[address] [facility] 11/27/20 12/04/20 09:34 09:15 Wound Care Nurse 3 #3 4th lateral toe/amp site -Ulcer Cleansing Rinsed/ Rinsed/ Irrigated with Irrigated with Saline Saline -Foul Odor after Cleansing No No -Primary Dressing Applied C Hydrogel ($) Other -Other Dressing hydrogel -Primary Dressing Covered/Secured with Dry Gauze Dry Gauze & Roll Gauze, Secured with Tape -Other Covering drsg per dl route returner #2 L 5th toe -Ulcer Cleansing Rinsed/ Rinsed/ Irrigated with Irrigated with Saline Saline -Foul Odor after Cleansing No No -Primary Dressing Applied Enzymatic Aquacel AG 4x4 -Primary Dressing Covered/Secured with Dry Gauze & Roll Gauze, Secured with Tape -Aquacel AG 4x4 1 #1 L Grt Toe -Ulcer Cleansing Rinsed/ Rinsed/ Irrigated with Irrigated with Saline Saline -Foul Odor after Cleansing No No -Primary Dressing Applied C Hydrogel ($) Other -Other Dressing hydrogel -Primary Dressing Covered/Secured with Dry Gauze Dry Gauze & Roll Gauze, Secured with Tape -Other Covering drsg per dl route returner Treatment Response Procedure Tolerated Well Pain Scale: 0-10 Numeric Is Patient Pain Free? Yes Yes WC - Visit Discharge Discharge Condition Stable Stable Ambulatory Status Ambulatory,Cane Ambulatory,Cane Transportation Private Auto Private Auto Accompanied by daughter Medication Reconcilliation completed & Yes provided to patient/care provider Clinical Summary of Care Provided Yes Facility Type Home Health Wound debrided: Hallux and fourth digit amputation site Laterality: Left Wound Grade/Stage: Luciano 1 Type of Debridement: Excisional debridement Anesthesia Used: 4% Lidocaine Solution Depth: in the subcutaneous layer Percentage of wound debrided: 100 Instrument Used: 3mm curette Tissue Removed: includes fibrous, devitalized, biofilm, callus and slough tissue Severity: Fat Layer Exposed Amount of bleeding with debridement: Mild Bleeding Controlled with: Pressure Patient tolerated procedure: Patient tolerated procedure well Additional Wound Wound debrided: Fifth digit Laterality: Left Wound Grade/Stage: Luciano 2 Type of Debridement: Excisional debridement Anesthesia Used: 4% Lidocaine Solution Depth: to bone (Debrided to subcu) Percentage of wound debrided: 100 Instrument Used: 3mm curette Tissue Removed: Includes fibrous, devitalized, biofilm, callus and slough tissue Severity: Necrosis of Bone Amount of bleeding with debridement: Mild Bleeding Controlled with: Pressure Patient tolerated procedure: Patient tolerated procedure well Assessment/Plan Assessment/Plan (1) 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 (2) Non-pressure chronic ulcer of other part of left foot with fat layer exposed: CODE(S): L97.522 - Non-pressure chronic ulcer of other part of left foot with fat layer exposed (3) Amputated toe: CODE(S): S98.139A - Complete traumatic amputation of one unspecified lesser toe, initial encounter QUALIFIERS: Laterality: left Qualified Code(s): S98.132A - Complete traumatic amputation of one left lesser toe, initial encounter (4) History of tobacco abuse: CODE(S): Z87.891 - Personal history of nicotine dependence (5) Type 2 diabetes mellitus: CODE(S): E11.9 - Type 2 diabetes mellitus without complications QUALIFIERS: Diabetes mellitus ferry terminal supervisor insulin use: unspecified residential insulin use status Diabetes mellitus complication status: with circulatory complication Diabetes mellitus complication detail: with peripheral angiopathy with gangrene Qualified Code(s): E11.52 - Type 2 diabetes mellitus with diabetic peripheral angiopathy with gangrene (6) PAD (peripheral artery disease): CODE(S): I73.9 - Peripheral vascular disease, unspecified (7) Foot pain, left: CODE(S): M79.672 - Pain in left foot PLAN: Patient seen and examined. Overall improvement noted in wounds to hallux and fourth digit amputation site with improved size. The fifth digit ulceration noted to be stable with easily exposed fifth digit PIPJ. There is decrease in edema and pain noted. Recommend daily Aquacel silver dressing changes to fifth ulceration sites to start hydrogel to 1st digit and fourth digit amputation site covered by dry sterile dressing. After verbal consent was obtained sharp excisional debridement of all ulceration sites was carried out Patient noted to have peripheral vascular disease. Patient has been seeing Dr. Nicholson for management of this. Patient had intervention on 06/12/2020 with some regression of her vascular status noted. Patient had intervention again on 10/11/2020 this was performed at [facility]. Patient noted to have had a left iliofemoral profunda endorterectomy with patch angioplasty, balloon angioplasty of femororal popliteal artery as well as peroneal artery. Patient relates that Dr. Nicholson's follow-up ultrasound showed no impact to the intervention site. Reviewed proper wound care with patient. Discussed with the patient the importance of offloading the sites with wide enough shoe gear if she is to be wearing shoes, proper diet, good blood sugar control. Patient has offloading surgical shoe. Discussed with the patient all concerning signs and symptoms to watch out for and to contact office if he either presents. X-ray from 10/05/2020 showed amputation of the fourth digit. There is no other bony changes consistent with osteomyelitis noted to remaining digits at ulceration sites. There is no fractures or soft tissue emphysema noted cultures obtained 10/05/2020 demonstrated Pseudomonas aeruginosa. Discussed with the patient that given her restored vascular status that there is a chance that she would be able to now heal all of her wounds. Discussed that there is a possibility that there has been too much damage done to the fifth digit in order to save it. We will continue to monitor closely. Discussed that given its worsening appearance that amputation should more strongly be considered at this time. Discussed all risks and benefits of this. Discussed that given history of wound healing that there is no guarantee that the amputation site incision will close but given recent vascular intervention that our chances are improved from when other amputation site was done. Discussed possibility of seeing if there will be enough skin elasticity to try to primarily close fourth digit amputation site ulceration at the same time. Discussed using wound healing products within surgery. Discussed this option with her daughter Odessa over the phone last week. Patient presents alone today. Patient is agreeable moving forward with this plan was still needs some time to wrap her head around it and would not like to move forward immediately. Patient is noted to have scheduled an H&P with her primary care provider on Thursday. Discussed all risk benefits alternatives complications and to include but not limited to infection delayed healing nonhealing need for further surgery or amputation. Application for TheraSkin skin graft is approved but there is a portion that patient has cover [id number]. Patient will discuss with family if this is doable if she wants to proceed with this next week she will let us know. She is reluctant to move forward due to financial concerns. Patient is to follow-up in 1-2 weeks. Discussed potentially following up in the office are not to do preoperative paperwork as well as to be seen as I am not at the wound care center next week. This note was generated with [employer] software. It may contain incorrect words, spelling, and punctuation that were not noted in checking the note before signing.
== END 2020-12-22 23:59 ==
LOC: WC 08:45
PROVIDERS: PCP Family Medicine; Referring Provider Podiatrist; Visit Provider Podiatrist Foot & Ankle Surgery
DX: E11.621 Type 2 diabetes mellitus with foot ulcer (principal); L97.524 Non-pressure chronic ulcer of other part of left foot with necrosis of bone; L97.522 Non-pressure chronic ulcer of other part of left foot with fat layer exposed; T87.89 Other complications of amputation stump; E11.52 Type 2 diabetes mellitus with diabetic peripheral angiopathy with gangrene; Z89.422 Acquired absence of other left toe(s)
CPT/HCPCS: 11042

== ENCOUNTER → 2020-12-18 08:47 | Outpatient (CLI) | payer MEDICARE, SELFPAY ==
[2020-12-04 08:43] VITALS: BMI 23.5
--- NOTE | 2020-12-18 08:57 | VDLE_ITS ---
Reason For Study: swelling Procedure LEFT This is a venous duplex using B-mode, color GSV is normal. flow and spectral Doppler. CFV is compressible, spontaneous, phasic, Exam performed in department. competent, and demonstrates normal The exam was abbreviated due to the COVID 19 augmentation. protocol. FV is compressible, spontaneous, phasic, The exam was diagnostic. competent and demonstrates normal A preliminary report was called and/or faxed augmentation. to Dr. Soto. POP V is compressible, spontaneous, phasic, competent and demonstrates normal augmentation. T/P Trunk is compressible. PTV is compressible. LT PerV is compressible. VL/Venous Duplex US, Unilateral Interpretation Summary Deep veins of the left lower extremity are patent and compressible segmentally. There is no evidence of left lower extremity deep vein thrombosis. Valvular competence appears intac t within the proximal deep venous system on the left . The left great saphenous vein appears patent a nd compressible segmentally. Ordering Physician: Stacy Soto Performed By: Jett Oneal RVT and Student
== END ==
LOC: CVS 08:51
PROVIDERS: PCP Family Medicine; Referring Provider Family Medicine; Visit Provider Family Medicine
DX: M79.89 Other specified soft tissue disorders (principal)
CPT/HCPCS: 93971

== ENCOUNTER → 2020-12-20 08:55 | Outpatient (CLI) | payer MEDICARE, SELFPAY ==
[2020-12-04 08:43] VITALS: BMI 23.5
[2020-12-20 10:17] LABS: Absolute Lymphocyte Count 1.77 X10^3/uL (0.83-4.51); Absolute Neutrophil Count 4.7 X10^3/uL (2.0-7.7); Basophil# 0.05 X10^3/uL; Basophil% 0.7 % (0-1); Eosinophils% 3.9 % (0-5); Hemoglobin 10.7 g/dL (12.0-15.0); Lymphocyte # 1.77 X10^3/ul (0.83-4.51); Lymphocyte % 23.2 % (19-41); Mean Corp Hgb Conc 30.6 g/dL (32-36); Mean Corpuscular Hgb 27.1 pg (27.0-32.0); Mean Corpuscular Volume 88.6 fL (81-99); Mean Platelet Vol. 9.3 fl (6.2-12.0); Monocyte# 0.82 X10^3/uL; Monocyte% 10.8 % (0-10); NRBC Flagged by Analyzer 0 % (0-5); Neutrophil # 4.66 X10^3/uL (2.7-7.7); Neutrophil % 61.1 % (47-70); Platelet Count 394 K/mm3 (150-450); RBC Distribution Width CV 14.3 % (11.6-14.6); RBC Distribution Width SD 45.9 fl (35.1-43.9); Red Blood Count 3.95 M/mm3 (4.2-5.4); White Blood Count 7.6 K/mm3 (4.4-11.0)
[2020-12-20 10:25] LABS: Erythrocyte Sedimentation Rate 16 mm/hr (0-30)
== END ==
PROVIDERS: PCP Family Medicine; Referring Provider Family Medicine; Visit Provider Family Medicine
DX: L03.90 Cellulitis, unspecified (principal)
CPT/HCPCS: 36415; 85025; 85652; 86140

== ENCOUNTER → 2021-01-02 10:49 | Outpatient (CLI) | payer MEDICARE, SELFPAY ==
[2021-01-01 08:37] VITALS: BMI 23.5
--- NOTE | 2021-01-02 10:51 | CDU_ITS ---
Reason For Study: Carotid stenosis Rt. Velocities/BP Lt. Velocities/BP Prox CCA 59.1/16 cm/sec. Prox CCA 106/9 cm/sec. Mid CCA 52/14.6 cm/sec. Mid CCA 106/10.2 cm/sec. Dist CCA 43.2/13.5 cm/sec. Dist CCA 97.4/9 cm/sec. Prox ICA 48.5/18.2 cm/sec. Prox ICA 102.8/9.7 cm/sec. Mid ICA 62.6/22 cm/sec. Mid ICA 108.3/13.3 cm/sec. Dist ICA 57.9/24.8 cm/sec. Dist ICA 110.1/18.8 cm/sec. Rt. ICA/CCA = 1.20. Lt. ICA/CCA = 1.04. Prox ECA 220.1/2.9 cm/sec. Prox ECA 148.5 cm/sec. Rt. Vert. 23.8/4.7 cm/sec. Lt. Vert. 80.2/7.7 cm/sec. Right Extracranial There is homogeneous, smooth atherosclerotic plaque noted in the right common carotid artery. There is heterogeneous, irregular atherosclerotic plaque noted in the right internal carotid artery. The atherosclerotic plaque causes acoustic shadowing. There is heterogeneous, irregular atherosclerotic plaque noted in the right external carotid artery. Antegrade flow is noted in the right vertebral artery. Left Extracranial There is heterogeneous, irregular atherosclerotic plaque noted in the left common carotid artery. There is heterogeneous, irregular atherosclerotic plaque noted in the left internal carotid artery. There is heterogeneous, irregular atherosclerotic plaque noted in the left external carotid artery. Antegrade flow is noted in the left vertebral artery. Procedure Carotid Duplex [id number]. This is a Carotid Duplex examination using B-mode, color flow and specral Doppler. Exam performed in department. VL/Carotid Duplex Ultrasound Interpretation Summary Mild (<50%) stenosis right extracranial internal carotid. Mild (<50%) stenosis left extracranial internal carotid. Flow within the vertebral arteries is antegrade bilaterally. Ordering Physician: Romero Perez Referring Physician: Mc Marks MD Performed By: Daina Arvizu RVT
== END ==
LOC: CVS 10:50
PROVIDERS: PCP Family Medicine; Referring Provider Nurse Practitioner Family; Visit Provider Nurse Practitioner Family
DX: I65.22 Occlusion and stenosis of left carotid artery (principal)
CPT/HCPCS: 93880

== ENCOUNTER 2021-01-03 08:08 | Day surgery (SDC) | payer MEDICARE, SELFPAY ==
[2020-12-25 08:53] VITALS: BMI 23.5
--- NOTE | 2020-12-31 13:59 | EKG12_ITS ---
Test Reason : PRE-OP Blood Pressure : / mmHG Vent. Rate : 063 BPM Atrial Rate : 063 BPM P-R Int : 176 ms QRS Dur : 114 ms QT Int : 418 ms P-R-T Axes : 065 041 034 degrees QTc Int : 427 ms Normal sinus rhythm Right bundle branch block Abnormal ECG Confirmed by ZARIA HANNON, TANVIR ([id number]), brands editor DAIANA HUSSEIN ([id number]) on 01/02/2021 2:00:11 PM Referred By: Milly López Confirmed By:KAREEM ENCISO MD
[2020-12-31 14:37] LABS: Absolute Lymphocyte Count 2.62 X10^3/uL (0.83-4.51); Absolute Neutrophil Count 5.3 X10^3/uL (2.0-7.7); Basophil# 0.06 X10^3/uL; Basophil% 0.6 % (0-1); Eosinophils% 4.3 % (0-5); Hematocrit 34.2 % (37-47); Hemoglobin 10.7 g/dL (12.0-15.0); Lymphocyte # 2.62 X10^3/ul (0.83-4.51); Lymphocyte % 28.3 % (19-41); Mean Corp Hgb Conc 31.3 g/dL (32-36); Mean Corpuscular Hgb 27.2 pg (27.0-32.0); Mean Corpuscular Volume 86.8 fL (81-99); Mean Platelet Vol. 8.9 fl (6.2-12.0); Monocyte# 0.85 X10^3/uL; Monocyte% 9.2 % (0-10); NRBC Flagged by Analyzer 0 % (0-5); Neutrophil # 5.31 X10^3/uL (2.7-7.7); Neutrophil % 57.3 % (47-70); Platelet Count 381 K/mm3 (150-450); RBC Distribution Width CV 14.2 % (11.6-14.6); Red Blood Count 3.94 M/mm3 (4.2-5.4); White Blood Count 9.3 K/mm3 (4.4-11.0)
[2020-12-31 15:03] LABS: ALB/GLOB Ratio 0.8 RATIO (0.9-2.4); AST(SGOT) 23 U/L (15-37); Alanine Aminotransfer ALT/SGPT 25 U/L (13-56); Albumin, Serum 3.5 g/dL (3.2-5.0); Alkaline Phosphatase 96 U/L (45-117); Anion Gap 7 (5-15); BUN 34 mg/dL (7-18); BUN/Creat Ratio 39.2 RATIO (10-20); Chloride 100 mmol/L (98-107); Creatinine, Serum 0.87 mg/dL (0.55-1.02); EST Glomerular Filtration Rate 66 mL/min (>60); Est Glom Filt Rate - Afr Amer 80 mL/min (>60); Globulin 4.2 g/dL (2.2-4.2); Glucose 128 mg/dL (74-106); Potassium 4.2 mmol/L (3.5-5.1); Protein, Total 7.7 g/dL (6.4-8.2); Sodium Level 134 mmol/L (136-145)
[2021-01-01 08:37] VITALS: BMI 23.5
[2021-01-03] VITALS (12 sets, daily range): BP systolic 104–161; BP diastolic 42–74; PULSE 53–68; RESP 16; TEMP 35.9–36.6; O2SAT 97–100; BMI 23.4
[2021-01-03] MEDS: Lactated Ringers 1,000 ML 100 ML IV (09:22)
[2021-01-03 09:46] LABS: Bedside Glucose 108 mg/dL (70-110)
--- NOTE | 2021-01-03 10:12 | EX.PCM.DISCH ---
Discharge Instructions Diet Discharge Diet: No restrictions Activity Discharge Activity: - (use surgical shoe) Ice area for (Minutes): 15 Weight Bearing Status: Weight bearing as tolerated Keep extremity elevated above heart level: Operative Extremity Additional Activity Instructions:: Rest, ice, elevate operative extremity Dressing / Incision Call your doctor if your incision/area has: Sudden Increased Bleeding, Increased Pain/ Swelling, Foul Smelling Discharge and Swelling at the incision site Call your doctor if you observe: Fever of 101 or Higher, Numbness or Tingling, Shortness of breath, Chest pain, Calf discomfort and Uncontrolled pain Change Dressing in: leave in place till F/U Remove Dressing in: do not remove dressing Cleanse incision/area with: Do not get Incision Wet Follow Up Care Please Follow Up With: Milly López DPM When: 1 week Test Results: Test results from this visit will be discussed in further detail at your follow-up appointment, if applicable. Discharge Plan Admission Primary Reason for Your Visit: Toe amputation Attending Provider: Milly López Primary Care Provider: Tre Marks Discharge Orders/Prescriptions Prescriptions: New oxycodone-acetaminophen 5-325 mg tablet 1 tab PO Q8H PRN (Reason: pain) 4 Days Qty: 12 RF: 0 cephalexin 500 mg capsule 500 mg PO BID Qty: 14 RF: 0 No Action omega-3 fatty acids [Fish Oil Concentrate] 1,000 mg capsule 1,000 mg PO DAILY RF: 0 multivitamin Tablet 1 tab PO DAILY RF: 0 nitroglycerin 0.4 mg tablet, sublingual 0.4 mg SUBLINGUAL Q5-15M RF: 0 coenzyme Q10 10 mg capsule 10 mg PO DAILY RF: 0 cholecalciferol (vitamin D3) 50 mcg (2,000 unit) capsule 50 mcg PO DAILY RF: 0 metoprolol tartrate 25 mg tablet 25 mg PO TID RF: 0 lisinopril 20 mg tablet 20 mg PO BID RF: 0 clopidogrel 75 MG tablet 75 mg PO DAILY RF: 0 aspirin 81 MG tablet,chewable 81 mg PO QHS RF: 0 amlodipine 10 MG tablet 5 mg PO DAILY RF: 0 acetaminophen 325 mg Tablet 325 mg PO Q6H PRN (Reason: Pain) RF: 0 metformin 500 mg Tablet 500 mg PO DAILY RF: 0 Referrals / Follow Up: Tre Marks MD [Primary Care Provider] - Milly López DPM [STAFF PHYSICIAN] - Disposition Disposition (needs filled in before D/C Order can be placed): Home, Self Care
--- NOTE | 2021-01-03 10:19 | PCM.OPRPT ---
Problems Associated Problem List Diagnoses (1) 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 without evidence of necrosis: (2) Non-pressure chronic ulcer of other part of left foot with fat layer exposed: (3) Delayed wound healing: (4) Type 2 diabetes mellitus: (5) PAD (peripheral artery disease): (6) History of tobacco abuse: Report of Operation Date of Procedure: 01/03/21 Pre-Operative Diagnosis: Ulcerations left fifth toe to bone, fourth digit amputation site to subcu, medial hallux to subcu Diabetes PVD History of tobacco abuse and nonhealing wounds Post-Operative Diagnosis: Same Surgery/Procedure Performed:: Left foot: Amputation fifth digit, ulcer debridement subcu, delayed primary closure fourth digit amputation site ulceration, application of amnio fix skin graft Description of Surgical Findings:: Hemostasis: none Materials: Amnio fix skin graft 2 x 6 cm, 3-0 Vicryl and 4-0 nylon Anesthesia: 0.5% Marcaine plain 13 cc Wound sizes: Left medial hallux pre debridement 0.6 x 0.3 x 0.2 cm and post debridement 0.8x0.4x0.2cm, left fifth toe ulceration status post amputation 3x1x1.5 cm, fourth toe amputation site ulceration pre debridement 2.1 x 0.9 x 0.5 cm and post debridement 2.3x1.1x0.5cm Surgeon: Milly López manufacturing sales representative: None (Angela Hua PGY2) Type of Anesthesia: Local and MAC Specimen's removed: Left fifth toe Swab culture left foot Estimated Blood Loss (mL): <20 Description of Procedure: Indications for procedure: Patient is well-known to me has been seen at the wound care center for several months for chronic nonhealing ulcerations to the left lower extremity. Patient has had vascular intervention to treat her PVD and has still been unable to heal her wounds on her toes likely due to small vessel disease. 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 Discussed with the patient going to surgery in order to remove the nonhealing wound to her left fifth toe that with bone exposed via amputation. Discussed application of wound graft to help encourage optimal healing. Discussed delayed primary closure of the dehisced fourth digit amputation site ulceration As well as debridement of hallux ulceration. These options have been discussed at length with the patient as well as her family members. Patient decided to move forward with this option in her care given lack of progress and potential for infections. Discussed with the patient all risk associated with undergoing surgery as regards to COVID-19 exposure. Discussed all risks, benefits, alternatives, and complications including but not limited to infection, delayed healing, nonhealing, blood clots, amputation, possible , and/or need for further surgery or amputation with the patient. No guarantees were given or implied. Patient agreed to proceed with the procedure. All questions answered. Description of the procedure: Patient was seen in the preoperative holding area where the chart was reviewed and patient was examined all questions were answered to patient satisfaction. Patient was then transferred to the OR placed on the OR table in the supine position. After administration of IV line IV sedation an additional local anesthetic was injected in a reverse Rodriguez and digital block type fashion to corresponding toes to patient's operative foot. A well-padded ankle tourniquet was applied but not inflated at this time. The operative foot and ankle were then prepped and draped in the usual sterile fashion. The foot was then exsanguinated with an Esmarch bandage and the ankle tourniquet was inflated to 250 mmHg and then lowered onto the sterile field. A racquet type incision was drawn out on the fifth digit operative toe. A 15 blade was then introduced and going down to level of bone through the dermal and epidermal and subcutaneous tissue with all vital neurovascular retracted or cauterized as necessary. The toe was disarticulated at the level of the metatarsophalangeal joint. The toe was sent to pathology as specimen. The remaining bone was healthy in appearance with no signs of infection noted. The site was then flushed with copious muscle normal sterile saline. Post flush culture swabs were obtained. Amnio fix wound graft was applied to the amputation site and it was then and closed in a layered suture fashion. This was accomplished with Vicryl for deep closure and nylon for skin closure in buried, simple and horizontal fashion. It should be noted that the wound edges had prompt brisk capillary refill time. Attention was then directed to the fourth digit dehisced incision site from previous amputation. The skin edges were freshened up with a 15 blade all devitalized tissue was removed with a combination of pickups, 15 blade, curette from the site. The edges were undermined so as to relieve some skin tension. Good healthy bleeding encountered. Amnio fix graft was placed with in the ulceration site prior to delayed primary closure of the site with nylon sutures in horizontal and simple fashion. Prompt brisk hyperemic response was noted to the skin along the incision site. Attention was then directed to the medial hallux where the ulceration site was sharply debrided with a curette, pick ups and #15 blade. Good healthy bleeding was encountered. Site was then dressed with the remaining amnio fix skin graft. The hallux site was then dressed with Adaptic adhered with Steri-Strips to hold the graft in place. Steri strips were also utilized to remove tension from the delayed primary closure site. Remaining sites were covered with Adaptic as well. Foot was then dressed with 4 x 4's Kerlix and Pedro wrap to knee for edema control. The patient was then transferred from the OR to PACU with vital signs stable and vascular status intact. Patient will be discharged with the following written and oral postoperative instructions: 1 patient is to keep dressing clean, dry, and intact 2 patient is to follow-up in office in [address] López 3 patient take all medications as prescribed sent Rx for percocet and keflex 4 patient is to be nonweightbearing to the operative limb 5 patient is to watch for signs of infection including nausea, fever, vomiting, chills, chest pain, or shortness of breath and if seen patient is contact doctor's office or the emergency room. Patient is also contact doctor's office if there is any questions or concerns. 6 patient is to resume anticoagulation medications Complications None Admit VTE Documentation VTE Present on Admission: Yes VTE Mechan Device Prophylaxis: SCD's VTE Pharm Prophylaxis ordered?: Yes
--- NOTE | 2021-01-03 11:00 | AMP_PTH ---
PATIENT: GENTRY COBB [place] [facility] [place][id number] AGE/SX: 85/F ROOM: RE01/03/[address]: Dr. Milly López DPM : 1935 BED: DIS: 01/03/2021 SPEC #: [id number] RECD: 01/03/21 13:40 STATUS: MARY REQ #: [id number] ROHINI: 01/03/21 11:[address]: Milly López DEPT: SURGICAL PATHOLOGY RECD BY: Christiano Rossi ENTERED: 01/04/21 08:38 SP TYPE: Amputation OTHR DR: Dr. Mc Marks MD Tissues: Toe, NOS Procedures: Decalcification bone/plaque Surgery Specimen Level IV HEADER OPERATION: Amputation left fifth digit with debridement of ulceration PRE-OP DIAGNOSIS: Nonpressure chronic ulcer of left foot with bone involvement TISSUE SUBMITTED: Left fifth toe MICROSCOPIC DIAGNOSIS Left fifth toe, amputation: Focal ulceration, acute and chronic inflammation. Underlying bone with acute and chronic osteomyelitis and reactive changes. SJ:jenn 01/09/2021 MICROSCOPIC DESCRIPTION Slides are reviewed. GROSS DESCRIPTION Received in fixative is one container labeled with the patient's name and designated left fifth toe. The specimen consists of a toe with skin, bone and attached soft tissue measuring 5 cm in length and 1.8 cm in diameter. No nail is present. The dorsal surface of the soft tissue contains an ulcer measuring 1 x 0.6 x 0.2 cm. Trim Setter Helper sections of ulcer with underlying skin, soft tissue and bone are submitted in two cassettes after decalcification. / AM:jenn 01/04/21 TC:2 CPT: 52036, 31840
[2021-01-03] MEDS: Cefazolin 2 GM in 0.9% Normal Saline 100 ML IV (11:11)
[2021-01-03] MEDS: Bupivacaine Mpf 0.5% 30 ML VIAL (11:20)
--- NOTE | 2021-01-03 12:29 | RAD_ITS ---
EXAM: XR LEFT FOOT COMPLETE, 3 OR MORE VIEWS CLINICAL INDICATION: post op TECHNIQUE: Frontal, lateral and oblique views of the left foot. This report was created using [employer] report generation technology. COMPARISON: 10/05/2020. FINDINGS: BONES/JOINTS: Additional amputation of the left fifth toe. Amputated fourth toe is unchanged. Mild diffuse osteopenia. No acute fracture. No subluxation. Normal alignment. Preservation of the joint space. No sclerotic or destructive changes observed. SOFT TISSUES: Unremarkable. No soft tissue swelling or gas. No radiopaque foreign body. RAD/Foot min 3 Views IMPRESSION: 1. No acute findings in the left foot. 2. Interval amputation of the left fifth toe and the amputated fourth toe is unchanged. Electronically Signed: Norm Camarena MD at 15:09 EDT , Service support ,
== END 2021-01-03 15:15 | disposition home or self-care (01) ==
LOC: SDC 08:09 → AC 08:11
PROVIDERS: PCP Family Medicine; Referring Provider Podiatrist Foot & Ankle Surgery; Visit Provider Podiatrist Foot & Ankle Surgery
PROC: (CPT 15004; principal; 2021-01-03 10:45)
DX: E11.621 Type 2 diabetes mellitus with foot ulcer (principal); E11.51 Type 2 diabetes mellitus with diabetic peripheral angiopathy without gangrene; L97.526 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 without evidence of necrosis; I45.10 Unspecified right bundle-branch block; I25.10 Atherosclerotic heart disease of native coronary artery without angina pectoris; I10 Essential (primary) hypertension; I77.9 Disorder of arteries and arterioles, unspecified; Z95.5 Presence of coronary angioplasty implant and graft; E78.5 Hyperlipidemia, unspecified; Z86.73 Personal history of transient ischemic attack (TIA), and cerebral infarction without residual deficits; Z87.891 Personal history of nicotine dependence; Z97.2 Presence of dental prosthetic device (complete) (partial); Z98.62 Peripheral vascular angioplasty status; Z98.41 Cataract extraction status, right eye
CPT/HCPCS: 15004; 28825; 36415; 73630; 80053; 82962; 85025; 87070; 87075; 87077; 87102; 87186; 87205; 87206; 88305; 88311; 93005; J7120; J2405

== ENCOUNTER 2021-01-22 08:45 | Outpatient (RCR) | payer MEDICARE, SELFPAY ==
[2020-12-23 00:25] VITALS: BP 134/59; PULSE 66; RESP 20; TEMP 36.9
[2020-12-25 08:53] VITALS: BP 116/74; PULSE 78; RESP 16; TEMP 36; BMI 23.5
--- NOTE | 2020-12-25 11:27 | PCM.WC.PN ---
History of Present Illness Date of Service: 12/25/20 Chief Complaint: Left foot first, fifth digit ulceration Left fourth digit amputation site ulceration PAD History of Wound: Patient is referral from [facility]ud[facility]. 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 Patient has a history of smoking. Patient is diabetic as well but states is very well controlled averaging blood sugar in the low 100s. Patient denies any trauma or rubbing to start the wounds. Patient had intervention done by Dr. Nicholson on 06/12/2020. Since then patient has complaints of post procedure reperfusion pain. She states it is worse at night and she has some relief with dangling of the foot. She has had some increase in redness and swelling noted as well. Patient saw Dr. Tenorio June 26, 2020 and was started on 100mg gabapentin TID. She has noticed some improvement in her pain. 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 Patient was hospitalized 07/07/20 for worsening toe wound and blood in stool. 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 Amputation of 4th digit with debridement of 1st and 5th digit ulcerations was performed 07/08/20. 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 Patient was discharged on levaquin every other day due to impairment of her kidneys. Patient was also discharged on oxycodone. Patient relates improvement of her pain since surgery. Patient relates she is no longer taking strong pain meds. Patient continues at the wound care center for continued care ulcerations Patient had further intervention with Dr. Nicholson on October 11, 2020. Patient relates having to be transferred to [facility] for this. This was due to staffing issues. She has follow-up appointment with Dr. Nicholson who relates everything is going well Progress of Wound: Stable Subjective Subjective Patient seen and examined resting comfortably. Patient denies any new pedal complaints. Patient denies any nausea, fever, chills, chest pain, shortness of breath, cough, streaking, purulence, vomiting. Relates overall improvement without recurrent calf knot noted Objective Data Objective Data Vital Signs: Vital Signs Temp Pulse Resp BP 96.8 F L 78 16 116/74 12/25/20 08:53 12/25/20 08:53 12/25/20 08:53 12/25/20 08:53 Oxygen Delivery Method Room Air Weight: 149 kg Body Mass Index (BMI) 23.5 Physical Exam Narrative Const alert and no apparent distress General Appearance: cooperative and comfortable Lymph Lymphatic: no lymphedema noted Resp normal respiratory effort Effort and Inspection: able to speak in complete sentences Extremity no calf tenderness, negative gume and garcia sign Lower extremity and pedal and lower extremity edema left greater than right General Extremity: no tenderness to palpation of joints or extremities; Negative for clubbing or cyanosis or ecchymosis or erythema Vasc Peripheral Pulses: Yes posterior tibial pulses present +1 and dorsalis pedis pulses present +1, normal capillary refill, no acute ischemic skin changes noted. Capillary fill time less than 3 seconds to all remaining digits left foot Skin General Skin Exam: dry skin and venous stasis, decreased hair growth noted; Negative for ecchymosis, eschar, pallor. Wound Narrative: ulcers noted to left first, fifth toes and fourth amputation site No malodor, purulence, streaking, fluctuation, crepitus. Skin is atrophic and hairless. Wound to fifth digits have a less fibrotic base. Fifth toe wound noted to now have joint exposure with bone visualized but there is less fibrotic tissue buildup noted. Fourth digit amputation site no longer probes to bone and there is more granulation tissue noted. Granular base noted to first digit and fourth digit amputation site. Improvement noted to patient's coloration to lower extremity. More normal healthy pink coloration with normal capillary fill time noted to remaining digits. Pulses were able to be felt. There is postprocedural edema noted this is improved from last week. Normal skin temperature regained. Foot is warm Wound noted to posterior plantar heel remains healed Left lower leg continues to show some edema but does not have a knot that patient complained about feeling previously Neuro Gait (Neuro): heel to toe Sensory Exam: extremities light-touch: decreased MSK Motor Exam: strength 5/5 throughout, ROM to foot and ankle joints within normal limits Psych Appearance: appropriate Attitude: calm Debridement Note Debridement Note Post-Debridement Measurements and Additional Note: Post-Debridement Measurements/Treatment SOPHIA - Nurse 1 - General Ulcer Assessment Start: 12/25/20 08:53 Freq: Status: Active Protocol: ESVIN Activity Type Activity Date Activity User E-Sign Co-Sign Detail Recorded Client Recorded Date Recorded By Document 12/25/20 08:53 [id number] 12/25/20 09:04 12/25/20 08:53 WC - Today's Visit Information Type of service Follow-up Visit (Physician/PROGRAM TECHNICIAN ) Arrival Mode Cane Transfer Assistance None Accompanied by self Patient Identification Verified (Name & Yes ) Height and Weight Body Mass Index (BMI) 23.5 BMI Classification Normal Vital Signs Temperature (97.8 F-99.1 F) 96.8 F L Temperature Source Temporal Pulse Rate (60-100) 78 Pulse Location Monitor Respiratory Rate (12-18) 16 Respiratory rate source Observation Oxygen Delivery Method Room Air Blood Pressure (90/60-120/80) 116/74 Blood Pressure Mean (mm Hg) 88 Source Monitor Position Sitting Blood Pressure Location Left Arm History Since Last Visit- (Skip if this is Patient's initial visit) Have you changed medications since your No last visit? Any new allergies or adverse reactions No Had a fall/change in ADL's that may No increase risk of falls Signs or symptoms of abuse and/or No neglect since last visit Have you been in the hospital since your No last visit? Has dressing in place as prescribed No Has compression in place as prescribed Yes Has offloadiing in place as prescribed N/A Experienced any changes in pain level or No management Left Footwear Surgical Shoe with pressure relief insole Right Footwear Regular Shoe Pain Scale: 0-10 Numeric Is Patient Pain Free? Yes - Nurse 1 - General Ulcer Measurement Start: 12/25/20 08:53 Freq: Status: Active Protocol: Activity Type Activity Date Activity User E-Sign Co-Sign Detail Recorded Client Recorded Date Recorded By Document 12/25/20 08:53 [id number] 12/25/20 09:04 12/25/20 08:53 Wound Center Nurse 1 #3 4th lateral toe/amp site -Combined with other wound No -Current Size (cm) - Length 2.5 -Current Size (cm) - Width 0.6 -Current Size (cm) - Depth 0.5 -Total Square Cm 1.50 -Photo Taken No -Epithelialization None Present -Undermining/Tunneling No -Circular Undermining No -Exudate Amt Medium -Exudate Type Serosanguineous -Wound Margin Flat & Intact -Granulation Amt Medium (34-66%) -Granulation Quality Pharr -Slough/Fibrin Yes -Necrosis Amt Medium (34-66%) -Necrotic Tissue Type Adherent Slough -Structure Exposed N/A -Texture (Dot-wound Skin Appearance) Assessed, Scarring -Moisture (Dot-wound Skin Appearance) Assessed, Maceration -Color (Dot-wound Skin Appearance) No Abnormality, Assessed -Temperature (Dot-wound Skin No Abnormality Appearance) (Pt Warm) -Tenderness on Palpation (Dot-wound Yes Skin Appearance) -Ulcer Cleansing Rinsed/ Irrigated with Saline -Foul Odor after Cleansing No -Anesthetic Used 4% Lidocaine Solution #2 L 5th toe -Combined with other wound No -Current Size (cm) - Length 0.8 -Current Size (cm) - Width 0.8 -Current Size (cm) - Depth 0.2 -Total Square Cm 0.64 -Photo Taken No -Epithelialization None Present -Tunneling No -Undermining/Tunneling No -Circular Undermining No -Exudate Amt Medium -Exudate Type Serosanguineous -Wound Margin Thickened -Granulation Amt Small (1-33%) -Granulation Quality Pharr -Slough/Fibrin Yes -Necrosis Amt Medium (34-66%) -Necrotic Tissue Type Adherent Slough -Structure Exposed N/A -Texture (Dot-wound Skin Appearance) Assessed,Callus ,Scarring -Moisture (Dot-wound Skin Appearance) Assessed, Maceration -Color (Dot-wound Skin Appearance) Assessed -Temperature (Dot-wound Skin No Abnormality Appearance) (Pt Warm) -Tenderness on Palpation (Dot-wound No Skin Appearance) -Ulcer Cleansing Rinsed/ Irrigated with Saline -Foul Odor after Cleansing No -Anesthetic Used 4% Lidocaine Solution #1 L Grt Toe -Combined with other wound No -Current Size (cm) - Length 0.3 -Current Size (cm) - Width 0.2 -Current Size (cm) - Depth 0.1 -Total Square Cm 0.06 -Photo Taken No -Epithelialization None Present -Tunneling No -Undermining/Tunneling No -Circular Undermining No -Exudate Amt Small -Exudate Type Serosanguineous -Wound Margin Thickened -Granulation Amt None Present (0 %) -Granulation Quality N/A -Slough/Fibrin Yes -Necrosis Amt Large (67-100%) -Necrotic Tissue Type Adherent Slough -Structure Exposed N/A -Texture (Dot-wound Skin Appearance) Assessed,Callus -Moisture (Dot-wound Skin Appearance) Assessed,Dry/ Scaly -Color (Dot-wound Skin Appearance) No Abnormality, Assessed -Temperature (Dot-wound Skin No Abnormality Appearance) (Pt Warm) -Tenderness on Palpation (Dot-wound No Skin Appearance) -Ulcer Cleansing Rinsed/ Irrigated with Saline -Foul Odor after Cleansing No -Anesthetic Used 4% Lidocaine Solution Lower Limb Edema Present No WC - Nurse 2 - General Ulcer CM Notes Start: 12/25/20 08:53 Freq: Status: Active Protocol: Activity Type Activity Date Activity User E-Sign Co-Sign Detail Recorded Client Recorded Date Recorded By Document 12/25/20 09:14 [email or web address] [id number] 12/25/20 09:23 RICHI 12/25/20 09:14 Wound Center Nurse 2 #3 4th lateral toe/amp site -Time 09:14 -Correct Patient Yes -Correct Side, Site, Position Yes -Correct Procedure Yes -Procedure Performed Yes -Type of Procedure Debridement -Clinical Debridement Subcutaneous -Tissue Removed Subcutaneous -Post Debridement (cm) - Length 2.6 -Post Debridement (cm) - Width 0.9 -Post Debridement (cm) - Depth 0.6 -Total Square (Post) (cm) 2.34 -Area of Debridement (cm) - Length 2.6 -Area of Debridement (cm) - Width 0.9 -Total Square (Area) (cm) 2.34 -Tunneling No -Undermining/Tunneling No -Circular Undermining No -Wound/Ulcer Outcome Not Healed -Ulcer Cleansing Rinsed/ Irrigated with Saline -Foul Odor after Cleansing No -Bioengineered Tissue No -Bleeding Controlled with Pressure -Offloading Yes -Type of Offloading Surgical Shoe -Treatment Response Procedure Tolerated Well -Debridement - Subq, 1st 20sq cm Yes #2 L 5th toe -Time 09:15 -Correct Patient Yes -Correct Side, Site, Position Yes -Correct Procedure Yes -Procedure Performed Yes -Type of Procedure Debridement -Clinical Debridement Subcutaneous -Tissue Removed Subcutaneous -Post Debridement (cm) - Length 0.9 -Post Debridement (cm) - Width 0.7 -Post Debridement (cm) - Depth 0.2 -Total Square (Post) (cm) 0.63 -Area of Debridement (cm) - Length 0.9 -Area of Debridement (cm) - Width 0.7 -Total Square (Area) (cm) 0.63 -Undermining/Tunneling No -Circular Undermining No -Wound/Ulcer Outcome Not Healed -Ulcer Cleansing Rinsed/ Irrigated with Saline -Bioengineered Tissue No -Bleeding Controlled with Pressure -Offloading Yes -Type of Offloading Camwalker -Treatment Response Procedure Tolerated Well -Debridement - Subq, 1st 20sq cm No #1 L Grt Toe -Time 09:15 -Correct Side, Site, Position Yes -Correct Procedure Yes -Procedure Performed Yes -Type of Procedure Debridement -Clinical Debridement Subcutaneous -Tissue Removed Subcutaneous -Post Debridement (cm) - Length 0.6 -Post Debridement (cm) - Width 0.3 -Post Debridement (cm) - Depth 0.2 -Total Square (Post) (cm) 0.18 -Area of Debridement (cm) - Length 0.6 -Area of Debridement (cm) - Width 0.3 -Total Square (Area) (cm) 0.18 -Tunneling No -Undermining/Tunneling No -Circular Undermining No -Wound/Ulcer Outcome Not Healed -Ulcer Cleansing Rinsed/ Irrigated with Saline -Foul Odor after Cleansing No -Bioengineered Tissue No -Bleeding Controlled with Pressure -Offloading Yes -Type of Offloading Surgical Shoe -Treatment Response Procedure Tolerated Well -Debridement - Subq, 1st 20sq cm No Pain Scale: 0-10 Numeric Is Patient Pain Free? No WC - Nurse 3 - General Ulcer D/C NN Start: 12/25/20 08:53 Freq: Status: Active Protocol: Activity Type Activity Date Activity User E-Sign Co-Sign Detail Recorded Client Recorded Date Recorded By Document 12/25/20 09:43 MW [id number] 12/25/20 09:45 MW 12/25/20 09:43 Wound Care Nurse 3 #3 4th lateral toe/amp site -Ulcer Cleansing Rinsed/ Irrigated with Saline -Foul Odor after Cleansing No -Negative Pressure Wound Therapy N/A -Primary Dressing Applied C Hydrogel ($) -Primary Dressing Covered/Secured with Dry Gauze & Roll Gauze, Secured with Tape #2 L 5th toe -Ulcer Cleansing Rinsed/ Irrigated with Saline -Foul Odor after Cleansing No -Negative Pressure Wound Therapy N/A -Other Dressing c.hydrogel -Primary Dressing Covered/Secured with Dry Gauze & Roll Gauze, Secured with Tape #1 L Grt Toe -Ulcer Cleansing Rinsed/ Irrigated with Saline -Foul Odor after Cleansing No -Negative Pressure Wound Therapy N/A -Other Dressing c.hydrogel -Primary Dressing Covered/Secured with Dry Gauze & Roll Gauze, Secured with Tape Treatment Response Procedure Tolerated Well Pain Scale: 0-10 Numeric Is Patient Pain Free? Yes Teaching: Wound Center Dressing Your Wound -Person Taught Patient -Teaching Method Discussion, Demonstration -Response to teaching Verbalize understanding WC - Visit Discharge Discharge Condition Stable Ambulatory Status Ambulatory,Cane Transportation Private Auto Accompanied by self Medication Reconcilliation completed & No provided to patient/care provider Clinical Summary of Care Provided Yes Wound debrided: hallux, 4th toe amputation site Laterality: Left Wound Grade/Stage: pitt 1 Type of Debridement: Excisional debridement Anesthesia Used: 5% Lidocaine Gel Depth: in the subcutaneous layer Percentage of wound debrided: 100 Instrument Used: 3mm curette Tissue Removed: includes fibrous, devitalized, biofilm, callus and slough tissue Severity: Fat Layer Exposed Amount of bleeding with debridement: Mild Bleeding Controlled with: Pressure Patient tolerated procedure: Patient tolerated procedure well Additional Wound Wound debrided: 5th toe Laterality: Left Wound Grade/Stage: pitt 2 Type of Debridement: Excisional debridement Anesthesia Used: 5% Lidocaine Gel Depth: in the subcutaneous layer (probes to bone) Percentage of wound debrided: 100 Instrument Used: 3mm curette Tissue Removed: Includes fibrous, devitalized, biofilm, callus and slough tissue Severity: Fat Layer Exposed (bone is visualized) Amount of bleeding with debridement: Mild Bleeding Controlled with: Pressure Patient tolerated procedure: Patient tolerated procedure well Assessment/Plan Assessment/Plan (1) Cellulitis of left foot: CODE(S): L03.116 - Cellulitis of left lower limb (2) 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 (3) Non-pressure chronic ulcer of other part of left foot with fat layer exposed: CODE(S): L97.522 - Non-pressure chronic ulcer of other part of left foot with fat layer exposed (4) History of tobacco abuse: CODE(S): Z87.891 - Personal history of nicotine dependence (5) Type 2 diabetes mellitus: CODE(S): E11.9 - Type 2 diabetes mellitus without complications QUALIFIERS: Diabetes mellitus complication detail: with peripheral angiopathy with gangrene Diabetes mellitus complication status: with circulatory complication Diabetes mellitus parts counterman insulin use: unspecified fpc insulin use status Qualified Code(s): E11.52 - Type 2 diabetes mellitus with diabetic peripheral angiopathy with gangrene (6) PAD (peripheral artery disease): CODE(S): I73.9 - Peripheral vascular disease, unspecified (7) Amputated toe: CODE(S): S98.139A - Complete traumatic amputation of one unspecified lesser toe, initial encounter QUALIFIERS: Laterality: left Qualified Code(s): S98.132A - Complete traumatic amputation of one left lesser toe, initial encounter (8) Delayed wound healing: CODE(S): T14.8XXD - Other injury of unspecified body region, subsequent encounter PLAN: Patient seen and examined. Overall stable wounds noted to hallux and fourth digit amputation site with improved size. The fifth digit ulceration noted to be stable with easily exposed bone. There is decrease in edema and pain noted from office visit last week. Patient is noted to still be taking cephalexin as prescribed by her PCP for the increased pain/swelling to her left calf. Recommend daily hydrogel dressing changes to fifth and fourth digit amputation ulcerations with santyl to hallux wound site covered by dry sterile dressing. After verbal consent was obtained sharp excisional debridement of all ulceration sites was carried out Patient noted to have peripheral vascular disease. Patient has been seeing Dr. Nicholson for management of this. Patient had intervention on 06/12/2020 with some regression of her vascular status noted. Patient had intervention again on 10/11/2020 this was performed at [facility]. Patient noted to have had a left iliofemoral profunda endorterectomy with patch angioplasty, balloon angioplasty of femororal popliteal artery as well as peroneal artery. Patient relates that Dr. Nicholson's follow-up ultrasound showed no impact to the intervention site. Reviewed proper wound care with patient. Discussed with the patient the importance of offloading the sites with wide enough shoe gear if she is to be wearing shoes, proper diet, good blood sugar control. Patient has offloading surgical shoe. Discussed with the patient all concerning signs and symptoms to watch out for and to contact office if he either presents. Patient is agreeable with moving forward with surgical plan to amputate left 5th digit with primary closure of 4th amputation site ulceration with skin graft. The preoperative indications, planned procedure, possible benefits, risks, complications, and anticipated healing time and postoperative management were discussed in detail with the patient. No guarantees were made. The patient understands and elects to proceed with surgery at this time. I advised the patient the risks include, but are not limited to the following: continued pain, continued deformity, overcorrection or undercorrection, numbness, swelling, scarring, poor cosmetic result, bleeding, symptomatic or failure of hardware, delayed or non union/healing, dehiscence, infection, blood clots, allergic reaction, transfer lesion(s), loss of function, post operative arthritis, fracture, complex regional pain syndrome, weakness, shoegear problems, inability to walk, inability to wear shoes, floating toe, contracted toe, deviated toe, stroke, heart attack, addiction to pain medication, loss of limb, and / or loss of life. The patient expressed understanding and agreement. The patient was able to repeat these back. The alternative options were discussed and reviewed with patient in great detail. Informed surgical consent was obtained. Clearance will be obtained by the patient?s primary care physician. The patient is aware that a pre-operative H & P and diagnostic testing will be needed prior to intervention. Application for TheraSkin skin graft is approved but there is a portion that patient has cover [id number]. Patient will discuss with family if this is doable if she wants to proceed with this next week she will let us know. She is reluctant to move forward due to financial concerns. Patient's daughter Alejandra was called and reviewed case per patient's desire Patient is to follow-up in 1 weeks. This note was generated with [employer] dictation software. It may contain incorrect words, spelling, and punctuation that were not noted in checking the note before signing. 17 minutes was spent on this encounter. This included both face to face and non face to face care, which includes but not limited to time preparing for the visit (which includes but not limited to reviewing medical record, any pertinent paperwork, as well as previous imaging and/or test results), reviewing/obtaining the noted history, performing the noted examination, counseling and providing education to the patient as well as to patient's family and/or patient caregivers per patient request. This also includes ordering any medication(s), test(s), and/or procedure(s) as indicated and as documented in the medical record, interpreting / sharing this information when indicated (and with patient's permission) as documented, communicating with other healthcare providers as needed/as requested, the time documenting information in the medical record, as well as any further care coordination.
--- NOTE | 2021-01-15 08:36 | PCM.WC.PN ---
History of Present Illness Date of Service: 01/15/21 Chief Complaint: Left foot first digit ulceration Left fourth digit amputation site ulceration PAD History of Wound: Patient is referral from [facility]ud[facility]. 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 Patient has a history of smoking. Patient is diabetic as well but states is very well controlled averaging blood sugar in the low 100s. Patient denies any trauma or rubbing to start the wounds. Patient had intervention done by Dr. Nicholson on 06/12/2020. Since then patient has complaints of post procedure reperfusion pain. She states it is worse at night and she has some relief with dangling of the foot. She has had some increase in redness and swelling noted as well. Patient saw Dr. Tenorio June 26, 2020 and was started on 100mg gabapentin TID. She has noticed some improvement in her pain. 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 Patient was hospitalized 07/07/20 for worsening toe wound and blood in stool. 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 Amputation of 4th digit with debridement of 1st and 5th digit ulcerations was performed 07/08/20. 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 Patient was discharged on levaquin every other day due to impairment of her kidneys. Patient was also discharged on oxycodone. Patient relates improvement of her pain since surgery. Patient relates she is no longer taking strong pain meds. Patient continues at the wound care center for continued care ulcerations Patient had further intervention with Dr. Nicholson on October 11, 2020. Patient relates having to be transferred to [facility] for this. This was due to staffing issues. She has follow-up appointment with Dr. Nicholson who relates everything is going well Patient underwent left fifth digit amputation with attempted delayed closure of fourth digit amputation site ulceration and with application of amnio fix grafting to all sites by Dr. López on 01/03/2021 Progress of Wound: Stable sutures noted to be in place with some pull-through noted fourth delayed primary closure site with dehiscence distally Subjective Subjective Patient seen and examined resting comfortably. Patient denies any new pedal complaints. Patient denies any nausea, fever, chills, chest pain, shortness of breath, cough, streaking, purulence, vomiting. Patient relates she is only taking ibuprofen for pain control Objective Data Objective Data Vital Signs: Vital Signs Temp Pulse Resp BP 96.8 F L 78 16 116/74 12/25/20 08:53 12/25/20 08:53 12/25/20 08:53 12/25/20 08:53 Oxygen Delivery Method Room Air Weight: 149 kg Body Mass Index (BMI) 23.5 Physical Exam Narrative Const alert and no apparent distress General Appearance: cooperative and comfortable Lymph Lymphatic: no lymphedema noted Resp normal respiratory effort Effort and Inspection: able to speak in complete sentences Extremity no calf tenderness, negative gume and garcia sign Lower extremity and pedal and lower extremity edema left greater than right General Extremity: no tenderness to palpation of joints or extremities; Negative for clubbing or cyanosis or ecchymosis or erythema Vasc Peripheral Pulses: Yes posterior tibial pulses present +1 and dorsalis pedis pulses present +1, normal capillary refill, no acute ischemic skin changes noted. Capillary fill time less than 3 seconds to all remaining digits left foot Skin General Skin Exam: dry skin and venous stasis, decreased hair growth noted; Negative for ecchymosis, eschar, pallor. Wound Narrative: ulcers noted to left first toe and fourth amputation site. Sutures to the left fifth toe amputation site. No malodor, purulence, streaking, fluctuation, crepitus. Skin is atrophic and hairless. Fourth digit amputation site no longer probes to bone and there is more granulation tissue noted. Sutures remain intact with some pull-through noted to distal aspect. There is mild maceration. There are sanguinous drainage. Skin is taunt, shiny, thin and atrophic. To level of fat Granular base noted to first digit and fourth digit amputation site. Fifth digit amputation site with sutures intact and skin well coapted with brisk capillary refill time noted along incision site. More normal healthy pink coloration with normal capillary fill time noted to remaining digits. DP and PT pulses palpable. Normal skin temperature regained. Foot is warm Neuro Gait (Neuro): heel to toe Sensory Exam: extremities light-touch: decreased MSK Motor Exam: strength 5/5 throughout, ROM to foot and ankle joints within normal limits Psych Appearance: appropriate Attitude: calm Debridement Note Debridement Note Post-Debridement Measurements and Additional Note: Post-Debridement Measurements/Treatment WC - Nurse 1 - General Ulcer Assessment Start: 12/25/20 08:53 Freq: Status: Active Protocol: ESVIN Activity Type Activity Date Activity User E-Sign Co-Sign Detail Recorded Client Recorded Date Recorded By Document 12/25/20 08:53 MW [id number] 12/25/20 09:04 MW 12/25/20 08:53 WC - Today's Visit Information Type of service Follow-up Visit (Physician/[employer] ) Arrival Mode Cane Transfer Assistance None Accompanied by self Patient Identification Verified (Name & Yes ) Height and Weight Body Mass Index (BMI) 23.5 BMI Classification Normal Vital Signs Temperature (97.8 F-99.1 F) 96.8 F L Temperature Source Temporal Pulse Rate (60-100) 78 Pulse Location Monitor Respiratory Rate (12-18) 16 Respiratory rate source Observation Oxygen Delivery Method Room Air Blood Pressure (90/60-120/80) 116/74 Blood Pressure Mean (mm Hg) 88 Source Monitor Position Sitting Blood Pressure Location Left Arm History Since Last Visit- (Skip if this is Patient's initial visit) Have you changed medications since your No last visit? Any new allergies or adverse reactions No Had a fall/change in ADL's that may No increase risk of falls Signs or symptoms of abuse and/or No neglect since last visit Have you been in the hospital since your No last visit? Has dressing in place as prescribed No Has compression in place as prescribed Yes Has offloadiing in place as prescribed N/A Experienced any changes in pain level or No management Left Footwear Surgical Shoe with pressure relief insole Right Footwear Regular Shoe Pain Scale: 0-10 Numeric Is Patient Pain Free? Yes - Nurse 1 - General Ulcer Measurement Start: 12/25/20 08:53 Freq: Status: Active Protocol: Activity Type Activity Date Activity User E-Sign Co-Sign Detail Recorded Client Recorded Date Recorded By Document 12/25/20 08:53 MW [id number] 12/25/20 09:04 MW 12/25/20 08:53 Wound Center Nurse 1 #3 4th lateral toe/amp site -Combined with other wound No -Current Size (cm) - Length 2.5 -Current Size (cm) - Width 0.6 -Current Size (cm) - Depth 0.5 -Total Square Cm 1.50 -Photo Taken No -Epithelialization None Present -Undermining/Tunneling No -Circular Undermining No -Exudate Amt Medium -Exudate Type Serosanguineous -Wound Margin Flat & Intact -Granulation Amt Medium (34-66%) -Granulation Quality [place] -Slough/Fibrin Yes -Necrosis Amt Medium (34-66%) -Necrotic Tissue Type Adherent Slough -Structure Exposed N/A -Texture (Dot-wound Skin Appearance) Assessed, Scarring -Moisture (Dot-wound Skin Appearance) Assessed, Maceration -Color (Dot-wound Skin Appearance) No Abnormality, Assessed -Temperature (Dot-wound Skin No Abnormality Appearance) (Pt Warm) -Tenderness on Palpation (Dot-wound Yes Skin Appearance) -Ulcer Cleansing Rinsed/ Irrigated with Saline -Foul Odor after Cleansing No -Anesthetic Used 4% Lidocaine Solution #2 L 5th toe -Combined with other wound No -Current Size (cm) - Length 0.8 -Current Size (cm) - Width 0.8 -Current Size (cm) - Depth 0.2 -Total Square Cm 0.64 -Photo Taken No -Epithelialization None Present -Tunneling No -Undermining/Tunneling No -Circular Undermining No -Exudate Amt Medium -Exudate Type Serosanguineous -Wound Margin Thickened -Granulation Amt Small (1-33%) -Granulation Quality [place] -Slough/Fibrin Yes -Necrosis Amt Medium (34-66%) -Necrotic Tissue Type Adherent Slough -Structure Exposed N/A -Texture (Dot-wound Skin Appearance) Assessed,Callus ,Scarring -Moisture (Dot-wound Skin Appearance) Assessed, Maceration -Color (Dot-wound Skin Appearance) Assessed -Temperature (Dot-wound Skin No Abnormality Appearance) (Pt Warm) -Tenderness on Palpation (Dot-wound No Skin Appearance) -Ulcer Cleansing Rinsed/ Irrigated with Saline -Foul Odor after Cleansing No -Anesthetic Used 4% Lidocaine Solution #1 L Grt Toe -Combined with other wound No -Current Size (cm) - Length 0.3 -Current Size (cm) - Width 0.2 -Current Size (cm) - Depth 0.1 -Total Square Cm 0.06 -Photo Taken No -Epithelialization None Present -Tunneling No -Undermining/Tunneling No -Circular Undermining No -Exudate Amt Small -Exudate Type Serosanguineous -Wound Margin Thickened -Granulation Amt None Present (0 %) -Granulation Quality N/A -Slough/Fibrin Yes -Necrosis Amt Large (67-100%) -Necrotic Tissue Type Adherent Slough -Structure Exposed N/A -Texture (Dot-wound Skin Appearance) Assessed,Callus -Moisture (Dot-wound Skin Appearance) Assessed,Dry/ Scaly -Color (Dot-wound Skin Appearance) No Abnormality, Assessed -Temperature (Dot-wound Skin No Abnormality Appearance) (Pt Warm) -Tenderness on Palpation (Dot-wound No Skin Appearance) -Ulcer Cleansing Rinsed/ Irrigated with Saline -Foul Odor after Cleansing No -Anesthetic Used 4% Lidocaine Solution Lower Limb Edema Present No WC - Nurse 2 - General Ulcer CM Notes Start: 12/25/20 08:53 Freq: Status: Active Protocol: Activity Type Activity Date Activity User E-Sign Co-Sign Detail Recorded Client Recorded Date Recorded By Document 12/25/20 09:14 [email or web address] [id number] 12/25/20 09:23 RICHI 12/25/20 09:14 Wound Center Nurse 2 #3 4th lateral toe/amp site -Time 09:14 -Correct Patient Yes -Correct Side, Site, Position Yes -Correct Procedure Yes -Procedure Performed Yes -Type of Procedure Debridement -Clinical Debridement Subcutaneous -Tissue Removed Subcutaneous -Post Debridement (cm) - Length 2.6 -Post Debridement (cm) - Width 0.9 -Post Debridement (cm) - Depth 0.6 -Total Square (Post) (cm) 2.34 -Area of Debridement (cm) - Length 2.6 -Area of Debridement (cm) - Width 0.9 -Total Square (Area) (cm) 2.34 -Tunneling No -Undermining/Tunneling No -Circular Undermining No -Wound/Ulcer Outcome Not Healed -Ulcer Cleansing Rinsed/ Irrigated with Saline -Foul Odor after Cleansing No -Bioengineered Tissue No -Bleeding Controlled with Pressure -Offloading Yes -Type of Offloading Surgical Shoe -Treatment Response Procedure Tolerated Well -Debridement - Subq, 1st 20sq cm Yes #2 L 5th toe -Time 09:15 -Correct Patient Yes -Correct Side, Site, Position Yes -Correct Procedure Yes -Procedure Performed Yes -Type of Procedure Debridement -Clinical Debridement Subcutaneous -Tissue Removed Subcutaneous -Post Debridement (cm) - Length 0.9 -Post Debridement (cm) - Width 0.7 -Post Debridement (cm) - Depth 0.2 -Total Square (Post) (cm) 0.63 -Area of Debridement (cm) - Length 0.9 -Area of Debridement (cm) - Width 0.7 -Total Square (Area) (cm) 0.63 -Undermining/Tunneling No -Circular Undermining No -Wound/Ulcer Outcome Not Healed -Ulcer Cleansing Rinsed/ Irrigated with Saline -Bioengineered Tissue No -Bleeding Controlled with Pressure -Offloading Yes -Type of Offloading Camwalker -Treatment Response Procedure Tolerated Well -Debridement - Subq, 1st 20sq cm No #1 L Grt Toe -Time 09:15 -Correct Side, Site, Position Yes -Correct Procedure Yes -Procedure Performed Yes -Type of Procedure Debridement -Clinical Debridement Subcutaneous -Tissue Removed Subcutaneous -Post Debridement (cm) - Length 0.6 -Post Debridement (cm) - Width 0.3 -Post Debridement (cm) - Depth 0.2 -Total Square (Post) (cm) 0.18 -Area of Debridement (cm) - Length 0.6 -Area of Debridement (cm) - Width 0.3 -Total Square (Area) (cm) 0.18 -Tunneling No -Undermining/Tunneling No -Circular Undermining No -Wound/Ulcer Outcome Not Healed -Ulcer Cleansing Rinsed/ Irrigated with Saline -Foul Odor after Cleansing No -Bioengineered Tissue No -Bleeding Controlled with Pressure -Offloading Yes -Type of Offloading Surgical Shoe -Treatment Response Procedure Tolerated Well -Debridement - Subq, 1st 20sq cm No Pain Scale: 0-10 Numeric Is Patient Pain Free? No WC - Nurse 3 - General Ulcer D/C NN Start: 12/25/20 08:53 Freq: Status: Active Protocol: Activity Type Activity Date Activity User E-Sign Co-Sign Detail Recorded Client Recorded Date Recorded By Document 12/25/20 09:43 MW [id number] 12/25/20 09:45 MW 12/25/20 09:43 Wound Care Nurse 3 #3 4th lateral toe/amp site -Ulcer Cleansing Rinsed/ Irrigated with Saline -Foul Odor after Cleansing No -Negative Pressure Wound Therapy N/A -Primary Dressing Applied C Hydrogel ($) -Primary Dressing Covered/Secured with Dry Gauze & Roll Gauze, Secured with Tape #2 L 5th toe -Ulcer Cleansing Rinsed/ Irrigated with Saline -Foul Odor after Cleansing No -Negative Pressure Wound Therapy N/A -Other Dressing c.hydrogel -Primary Dressing Covered/Secured with Dry Gauze & Roll Gauze, Secured with Tape #1 L Grt Toe -Ulcer Cleansing Rinsed/ Irrigated with Saline -Foul Odor after Cleansing No -Negative Pressure Wound Therapy N/A -Other Dressing c.hydrogel -Primary Dressing Covered/Secured with Dry Gauze & Roll Gauze, Secured with Tape Treatment Response Procedure Tolerated Well Pain Scale: 0-10 Numeric Is Patient Pain Free? Yes Teaching: Wound Center Dressing Your Wound -Person Taught Patient -Teaching Method Discussion, Demonstration -Response to teaching Verbalize understanding WC - Visit Discharge Discharge Condition Stable Ambulatory Status Ambulatory,Cane Transportation Private Auto Accompanied by self Medication Reconcilliation completed & No provided to patient/care provider Clinical Summary of Care Provided Yes Wound debrided: Hallux and fourth digit amputation sit Laterality: Left Wound Grade/Stage: Luciano 2 Type of Debridement: Excisional debridement Anesthesia Used: 4% Lidocaine Solution Depth: in the subcutaneous layer Percentage of wound debrided: 100 Instrument Used: 3mm curette Tissue Removed: includes fibrous, devitalized, biofilm, callus and slough tissue Severity: Fat Layer Exposed Amount of bleeding with debridement: Mild Bleeding Controlled with: Pressure Patient tolerated procedure: Patient tolerated procedure well Assessment/Plan Assessment/Plan (1) Non-pressure chronic ulcer of other part of left foot with fat layer exposed: CODE(S): L97.522 - Non-pressure chronic ulcer of other part of left foot with fat layer exposed (2) History of tobacco abuse: CODE(S): Z87.891 - Personal history of nicotine dependence (3) Type 2 diabetes mellitus: CODE(S): E11.9 - Type 2 diabetes mellitus without complications QUALIFIERS: Diabetes mellitus complication detail: with peripheral angiopathy with gangrene Diabetes mellitus complication status: with circulatory complication Diabetes mellitus terminal operations supervisor insulin use: unspecified terminal operations supervisor insulin use status Qualified Code(s): E11.52 - Type 2 diabetes mellitus with diabetic peripheral angiopathy with gangrene (4) PAD (peripheral artery disease): CODE(S): I73.9 - Peripheral vascular disease, unspecified (5) Amputated toe: CODE(S): S98.139A - Complete traumatic amputation of one unspecified lesser toe, initial encounter QUALIFIERS: Laterality: left Qualified Code(s): S98.132A - Complete traumatic amputation of one left lesser toe, initial encounter (6) Delayed wound healing: CODE(S): T14.8XXD - Other injury of unspecified body region, subsequent encounter (7) Non-pressure chronic ulcer of other part of left foot with necrosis of bone: CODE(S): L97.524 - Non-pressure chronic ulcer of other part of left foot with necrosis of bone (8) Post-op pain: CODE(S): G89.18 - Other acute postprocedural pain (9) Osteomyelitis: CODE(S): M86.9 - Osteomyelitis, unspecified PLAN: Patient seen and examined. Patient is status post left fifth digit amputation with application of amnio fix graft, attempted delayed primary closure fourth digit amputation site, debridement of hallux ulceration with Dr. López on 01/03/2021. OR pathology of fifth digit showed acute osteomyelitis. Post lavage cultures obtained at surgery demonstrated very rare Pseudomonas. Patient is noted to have had this bacteria noted in previous cultures with possibility of colonization. Overall stable wounds noted to hallux and fourth digit amputation site. Removed sutures to fourth digit attempted delayed primary closure site which pulled through. Every other day collagen dressing changes to first and fourth digit amputation ulcerations with Betadine to fifth digit amputation site incision. To wash with soap and water prior. Patient is noted to have home health care After verbal consent was obtained sharp excisional debridement of all ulceration sites was carried out Patient noted to have peripheral vascular disease. Patient has been seeing Dr. Nicholson for management of this. Patient had intervention on 06/12/2020 with some regression of her vascular status noted. Patient had intervention again on 10/11/2020 this was performed at [facility]. Patient noted to have had a left iliofemoral profunda endorterectomy with patch angioplasty, balloon angioplasty of femororal popliteal artery as well as peroneal artery. Reviewed proper wound care with patient. Discussed with the patient the importance of offloading the sites with wide enough shoe gear if she is to be wearing shoes, proper diet, good blood sugar control. Patient has offloading surgical shoe. Discussed with the patient all concerning signs and symptoms to watch out for and to contact office if he either presents. Application for TheraSkin skin graft is approved but there is a portion that patient has cover [id number]. Patient will discuss with family if this is doable if she wants to proceed with this she will let us know. Given patient recent surgery we will resubmit to see if her responsibility has changed. Also discussed at length possibility of trying to get HBO therapy covered for patient. We will have to reassess chart in order to see if patient would qualify. Patient is want to try anything to get her foot to heal. Patient is noted to have failed multiple other modalities with very few left available to her 1 of which is HBO that has not been tried yet. She has failed regular debridements and wound care, amnio fix grafting and surgical amputations and debridements, multiple interventions with vascular surgeon, etc. Patient is to follow-up in 1 weeks. This note was generated with [employer] dictation software. It may contain incorrect words, spelling, and punctuation that were not noted in checking the note before signing.
[2021-01-15 08:50] VITALS: BP 164/70; PULSE 64; TEMP 36.6; BMI 23.5
[2021-01-22 08:42] VITALS: BP 166/40; PULSE 67; RESP 20; TEMP 36.3; BMI 23.5
--- NOTE | 2021-01-22 11:51 | PN.PCM_ITS ---
History of Present Illness Date of Service: 01/22/21 Chief Complaint: Left foot first digit ulceration Left fourth digit amputation site ulceration PAD History of Wound: Patient had intervention done by Dr. Nicholson on 06/12/2020. Patient saw Dr. Tenorio June 26, 2020 and was started on 100mg gabapentin TID. She has noticed some improvement in her pain. Patient had further intervention with Dr. Nicholson on October 11, 2020. Patient relates having to be transferred to [facility] for this. 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 Amputation of 4th digit with debridement of 1st and 5th digit ulcerations was performed 07/08/20. 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 Patient underwent left fifth digit amputation with attempted delayed closure of fourth digit amputation site ulceration and with application of amnio fix grafting to all sites by Dr. López on 01/03/2021. 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 Progress of Wound: Stable Subjective Subjective Patient seen and examined resting comfortably. Patient denies any new pedal complaints. Patient denies any nausea, fever, chills, chest pain, shortness of breath, cough, streaking, purulence, vomiting. Objective Data Objective Data Vital Signs: Vital Signs Temp Pulse Resp BP 97.3 F L 67 20 H 166/40 H 01/22/21 08:42 01/22/21 08:42 01/22/21 08:42 01/22/21 08:42 Oxygen Delivery Method Room Air Weight: 149 kg Body Mass Index (BMI) 23.5 Physical Exam Narrative Const alert and no apparent distress General Appearance: cooperative and comfortable Lymph Lymphatic: no lymphedema noted Resp normal respiratory effort Effort and Inspection: able to speak in complete sentences Extremity no calf tenderness, negative gume and garcia sign Lower extremity and pedal and lower extremity edema left greater than right General Extremity: no tenderness to palpation of joints or extremities; Negative for clubbing or cyanosis or ecchymosis or erythema Vasc Peripheral Pulses: Yes posterior tibial pulses present +1 and dorsalis pedis pulses present +1, normal capillary refill, no acute ischemic skin changes noted. Capillary fill time less than 3 seconds to all remaining digits left foot Skin General Skin Exam: dry skin and venous stasis, decreased hair growth noted; Negative for ecchymosis, eschar, pallor. Wound Narrative: ulcers noted to left first toe and fourth amputation site. Sutures to the left fifth toe amputation site. No malodor, purulence, streaking, fluctuation, crepitus. Skin is atrophic and hairless. Fourth digit amputation site no longer probes to bone and there is more granulation tissue noted. Skin is taunt, shiny, thin and atrophic. To level of fat Granular base noted to first digit and fourth digit amputation site. Fifth digit amputation site with sutures intact and skin well coapted with brisk capillary refill time noted along incision site. Some lower extremity edema noted, mild. DP and PT pulses palpable. Normal skin temperature regained. Foot is warm Neuro Gait (Neuro): heel to toe Sensory Exam: extremities light-touch: decreased MSK Motor Exam: strength 5/5 throughout, ROM to foot and ankle joints within normal limits Psych Appearance: appropriate Attitude: calm Debridement Note Debridement Note Post-Debridement Measurements and Additional Note: Post-Debridement Measurements/Treatment - Nurse 1 - General Ulcer Assessment Start: 12/25/20 08:53 Freq: Status: Active Protocol: ESVIN Activity Type Activity Date Activity User E-Sign Co-Sign Detail Recorded Client Recorded Date Recorded By Document 12/25/20 08:53 MW [id number] 12/25/20 09:04 MW Document 01/15/21 08:50 DL [id number] 01/15/21 08:56 DL Document 01/22/21 08:42 DL [id number] 01/22/21 08:53 DL 12/25/20 01/15/21 01/22/21 08:53 08:50 08:42 - Today's Visit Information Type of service Follow-up Visit Follow-up Visit Follow-up Visit (Physician/AIR VALUE TESTER (Physician/AIR VALUE TESTER (Physician/AIR VALUE TESTER ) ) ) Arrival Mode Cane Ambulatory Ambulatory,Cane Transfer Assistance None None Accompanied by self Patient Identification Verified (Name & Yes Yes ) Patient Requires Transmission-Based No Precautions Finger Stick Blood Sugar(mg/dl) (if 117 indicated): Blood Sugar Stated by Patient Height and Weight Body Mass Index (BMI) 23.5 23.5 23.5 BMI Classification Normal Normal Normal Vital Signs Temperature (97.8 F-99.1 F) 96.8 F L 97.9 F 97.3 F L Temperature Source Temporal Temporal Temporal Pulse Rate (60-100) 78 64 67 Pulse Location Monitor Monitor Monitor Respiratory Rate (12-18) 16 20 H Respiratory rate source Observation Observation Oxygen Delivery Method Room Air Blood Pressure (90/60-120/80) 116/74 164/70 H 166/40 H Blood Pressure Mean (mm Hg) 88 101 82 Source Monitor Monitor Monitor Position Sitting Blood Pressure Location Left Arm History Since Last Visit- (Skip if this is Patient's initial visit) Have you changed medications since your No No No last visit? Any new allergies or adverse reactions No No No Had a fall/change in ADL's that may No No No increase risk of falls Signs or symptoms of abuse and/or No No No neglect since last visit Have you been in the hospital since your No No last visit? Has dressing in place as prescribed No Yes Yes Has compression in place as prescribed Yes No N/A Has offloadiing in place as prescribed N/A No Yes Experienced any changes in pain level or No No management Left Footwear Surgical Shoe Surgical Shoe Surgical Shoe with pressure with pressure with pressure relief insole relief insole relief insole Right Footwear Regular Shoe Regular Shoe Pain Scale: 0-10 Numeric Is Patient Pain Free? Yes Yes - Nurse 1 - General Ulcer Measurement Start: 12/25/20 08:53 Freq: Status: Active Protocol: Activity Type Activity Date Activity User E-Sign Co-Sign Detail Recorded Client Recorded Date Recorded By Document 12/25/20 08:53 MW [id number] 12/25/20 09:04 MW Document 01/15/21 08:50 DL [id number] 01/15/21 08:56 DL Document 01/22/21 08:42 DL [id number] 01/22/21 08:53 DL 12/25/20 01/15/21 01/22/21 08:53 08:50 08:42 Wound Center Nurse 1 #3 4th lateral toe/amp site -Combined with other wound No -Current Size (cm) - Length 2.5 2.2 -Current Size (cm) - Width 0.6 0.7 -Current Size (cm) - Depth 0.5 0.5 -Total Square Cm 1.50 1.54 -Photo Taken No No -Epithelialization None Present -Undermining/Tunneling No -Circular Undermining No No -Exudate Amt Medium Large Medium -Exudate Type Serosanguineous Serosanguineous Serosanguineous -Wound Margin Flat & Intact Distinct, Distinct, Outline Outline Attached Attached -Granulation Amt Medium (34-66%) None Present (0 None Present (0 %) %) -Granulation Quality [place] -Slough/Fibrin Yes -Necrosis Amt Medium (34-66%) Large (67-100%) Small (1-33%) -Necrotic Tissue Type Adherent Slough Adherent Slough Eschar -Structure Exposed N/A N/A -Texture (Dto-wound Skin Appearance) Assessed, No Abnormality, Localized Edema Scarring Assessed ,Scarring -Moisture (Dot-wound Skin Appearance) Assessed, Assessed,Dry/ Dry/Scaly Maceration Scaly -Color (Dot-wound Skin Appearance) No Abnormality, No Abnormality, Erythema Assessed Assessed -Temperature (Dot-wound Skin No Abnormality No Abnormality No Abnormality Appearance) (Pt Warm) (Pt Warm) (Pt Warm) -Tenderness on Palpation (Dot-wound Yes Skin Appearance) -Ulcer Cleansing Rinsed/ Rinsed/ Wound Cleanser Irrigated with Irrigated with Saline Saline -Foul Odor after Cleansing No No -Anesthetic Used 4% Lidocaine 4% Lidocaine 5% Lidocaine Solution Solution Gel #2 L 5th toe -Combined with other wound No No -Current Size (cm) - Length 0.8 1 -Current Size (cm) - Width 0.8 0.4 -Current Size (cm) - Depth 0.2 0.1 -Total Square Cm 0.64 0.4 -Photo Taken No -Epithelialization None Present -Tunneling No No -Undermining/Tunneling No No -Circular Undermining No No -Exudate Amt Medium -Exudate Type Serosanguineous -Wound Margin Thickened Distinct, Outline Attached -Granulation Amt Small (1-33%) -Granulation Quality [place] -Slough/Fibrin Yes -Necrosis Amt Medium (34-66%) -Necrotic Tissue Type Adherent Slough Eschar -Structure Exposed N/A -Texture (Dot-wound Skin Appearance) Assessed,Callus ,Scarring -Moisture (Dot-wound Skin Appearance) Assessed, Maceration -Color (Dot-wound Skin Appearance) Assessed -Temperature (Dot-wound Skin No Abnormality No Abnormality Appearance) (Pt Warm) (Pt Warm) -Tenderness on Palpation (Dot-wound No No Skin Appearance) -Ulcer Cleansing Rinsed/ Rinsed/ Irrigated with Irrigated with Saline Saline -Foul Odor after Cleansing No -Anesthetic Used 4% Lidocaine 5% Lidocaine Solution Gel #1 L Grt Toe -Combined with other wound No -Current Size (cm) - Length 0.3 1 0.4 -Current Size (cm) - Width 0.2 0.4 0.3 -Current Size (cm) - Depth 0.1 0.1 0.2 -Total Square Cm 0.06 0.4 0.12 -Photo Taken No No -Epithelialization None Present -Tunneling No -Undermining/Tunneling No -Circular Undermining No -Exudate Amt Small Small -Exudate Type Serosanguineous Serosanguineous -Wound Margin Thickened Distinct, Thickened Outline Attached -Granulation Amt None Present (0 None Present (0 %) %) -Granulation Quality N/A -Slough/Fibrin Yes -Necrosis Amt Large (67-100%) Small (1-33%) -Necrotic Tissue Type Adherent Slough Eschar Adherent Slough -Structure Exposed N/A N/A -Texture (Dot-wound Skin Appearance) Assessed,Callus Scarring -Moisture (Dot-wound Skin Appearance) Assessed,Dry/ Dry/Scaly Scaly -Color (Dot-wound Skin Appearance) No Abnormality, No Abnormality Assessed -Temperature (Dot-wound Skin No Abnormality No Abnormality Appearance) (Pt Warm) (Pt Warm) -Tenderness on Palpation (Dot-wound No No Skin Appearance) -Ulcer Cleansing Rinsed/ Wound Cleanser Irrigated with Saline -Foul Odor after Cleansing No No -Anesthetic Used 4% Lidocaine 5% Lidocaine Solution Gel Lower Limb Edema Present No WC - Nurse 2 - General Ulcer CM Notes Start: 12/25/20 08:53 Freq: Status: Active Protocol: Activity Type Activity Date Activity User E-Sign Co-Sign Detail Recorded Client Recorded Date Recorded By Document 12/25/20 09:14 [id number] 12/25/20 09:23 Document 01/15/21 09:06 JF [id number] 01/15/21 09:22 Document 01/22/21 09:07 [id number] 01/22/21 09:13 12/25/20 01/15/21 01/22/21 09:14 09:06 09:07 Wound Center Nurse 2 #3 4th lateral toe/amp site -Time 09:14 09:20 09:07 -Correct Patient Yes Yes Yes -Correct Side, Site, Position Yes Yes Yes -Correct Procedure Yes Yes Yes -Procedure Performed Yes Yes Yes -Type of Procedure Debridement Debridement Debridement -Clinical Debridement Subcutaneous Subcutaneous Subcutaneous -Tissue Removed Subcutaneous Subcutaneous Subcutaneous -Post Debridement (cm) - Length 2.6 1.8 2 -Post Debridement (cm) - Width 0.9 1 0.8 -Post Debridement (cm) - Depth 0.6 0.5 0.6 -Total Square (Post) (cm) 2.34 1.8 1.6 -Area of Debridement (cm) - Length 2.6 1.8 2 -Area of Debridement (cm) - Width 0.9 1 0.8 -Total Square (Area) (cm) 2.34 1.8 1.6 -Tunneling No No No -Undermining/Tunneling No No No -Circular Undermining No No No -Wound/Ulcer Outcome Not Healed Not Healed Not Healed -Ulcer Cleansing Rinsed/ Rinsed/ Rinsed/ Irrigated with Irrigated with Irrigated with Saline Saline Saline -Foul Odor after Cleansing No No No -Bioengineered Tissue No No No -Bleeding Controlled with Pressure Pressure Pressure -Offloading Yes Yes Yes -Type of Offloading Surgical Shoe Surgical Shoe Surgical Shoe -Treatment Response Procedure Procedure Procedure Tolerated Well Tolerated Well Tolerated Well -Debridement - Subq, 1st 20sq cm Yes Yes Yes #2 L 5th toe -Time 09:15 -Correct Patient Yes No -Correct Side, Site, Position Yes No -Correct Procedure Yes No -Procedure Performed Yes No -Type of Procedure Debridement -Clinical Debridement Subcutaneous -Tissue Removed Subcutaneous -Post Debridement (cm) - Length 0.9 0 -Post Debridement (cm) - Width 0.7 0 -Post Debridement (cm) - Depth 0.2 0 -Total Square (Post) (cm) 0.63 0 -Area of Debridement (cm) - Length 0.9 0 -Area of Debridement (cm) - Width 0.7 0 -Total Square (Area) (cm) 0.63 0 -Undermining/Tunneling No -Circular Undermining No -Wound/Ulcer Outcome Not Healed Amputation -Ulcer Cleansing Rinsed/ Irrigated with Saline -Bioengineered Tissue No -Bleeding Controlled with Pressure -Offloading Yes -Type of Offloading Camwalker -Treatment Response Procedure Tolerated Well -Debridement - Subq, 1st 20sq cm No #1 L Grt Toe -Time 09:15 09:13 09:08 -Correct Patient Yes Yes -Correct Side, Site, Position Yes Yes Yes -Correct Procedure Yes Yes Yes -Procedure Performed Yes Yes Yes -Type of Procedure Debridement Debridement Debridement -Clinical Debridement Subcutaneous Subcutaneous Subcutaneous -Tissue Removed Subcutaneous Subcutaneous Subcutaneous -Post Debridement (cm) - Length 0.6 0.7 0.8 -Post Debridement (cm) - Width 0.3 0.3 0.4 -Post Debridement (cm) - Depth 0.2 0.3 0.2 -Total Square (Post) (cm) 0.18 0.21 0.32 -Area of Debridement (cm) - Length 0.6 0.7 0.8 -Area of Debridement (cm) - Width 0.3 0.3 4 -Total Square (Area) (cm) 0.18 0.21 3.2 -Tunneling No No No -Undermining/Tunneling No No No -Circular Undermining No No No -Wound/Ulcer Outcome Not Healed Not Healed Not Healed -Ulcer Cleansing Rinsed/ Rinsed/ Rinsed/ Irrigated with Irrigated with Irrigated with Saline Saline Saline -Foul Odor after Cleansing No No No -Bioengineered Tissue No No No -Bleeding Controlled with Pressure Pressure Pressure -Offloading Yes Yes Yes -Type of Offloading Surgical Shoe Surgical Shoe Surgical Shoe -Treatment Response Procedure Procedure Procedure Tolerated Well Tolerated Well Tolerated Well -Debridement - Subq, 1st 20sq cm No No No Pain Scale: 0-10 Numeric Is Patient Pain Free? No Yes Yes WC - Nurse 3 - General Ulcer D/C NN Start: 12/25/20 08:53 Freq: Status: Active Protocol: Activity Type Activity Date Activity User E-Sign Co-Sign Detail Recorded Client Recorded Date Recorded By Document 12/25/20 09:43 MW [id number] 12/25/20 09:45 MW Document 01/15/21 09:40 DL [id number] 01/15/21 09:43 DL Document 01/22/21 09:26 DL [id number] 01/22/21 09:30 DL 12/25/20 01/15/21 01/22/21 09:43 09:40 09:26 Wound Care Nurse 3 #3 4th lateral toe/amp site -Ulcer Cleansing Rinsed/ Wound Cleanser Rinsed/ Irrigated with Irrigated with Saline Saline -Foul Odor after Cleansing No No No -Negative Pressure Wound Therapy N/A -Primary Dressing Applied C Hydrogel ($) -Other Dressing betadine maxwell -Primary Dressing Covered/Secured with Dry Gauze & Dry Gauze & Dry Gauze & Roll Gauze, Roll Gauze, Roll Gauze, Secured with Secured with Secured with Tape Tape Tape #2 L 5th toe -Ulcer Cleansing Rinsed/ Irrigated with Saline -Foul Odor after Cleansing No -Negative Pressure Wound Therapy N/A -Other Dressing c.hydrogel -Primary Dressing Covered/Secured with Dry Gauze & Roll Gauze, Secured with Tape #1 L Grt Toe -Ulcer Cleansing Rinsed/ Wound Cleanser Rinsed/ Irrigated with Irrigated with Saline Saline -Foul Odor after Cleansing No No No -Negative Pressure Wound Therapy N/A -Primary Dressing Applied Promogran Promogran Maxwell Matter Maxwell Matter -Other Dressing c.hydrogel -Primary Dressing Covered/Secured with Dry Gauze & Dry Gauze & Dry Gauze, Roll Gauze, Roll Gauze, Secured with Secured with Secured with Tape Tape Tape -Promogran Maxwell Matter 1 1 Treatment Response Procedure Procedure Procedure Tolerated Well Tolerated Well Tolerated Well Pain Scale: 0-10 Numeric Is Patient Pain Free? Yes No Yes Teaching: Wound Center Dressing Your Wound -Person Taught Patient -Teaching Method Discussion, Demonstration -Response to teaching Verbalize understanding WC - Visit Discharge Discharge Condition Stable Stable Stable Ambulatory Status Ambulatory,Cane Ambulatory,Cane Ambulatory,Cane Transportation Private Auto Private Auto Private Auto Accompanied by self daughter family Medication Reconcilliation completed & No provided to patient/care provider Clinical Summary of Care Provided Yes Facility Type Home Health Orders Sent Yes Wound debrided: First digit and fourth amputation digit site Laterality: Left Wound Grade/Stage: Luciano 1 Type of Debridement: Excisional debridement Anesthesia Used: 4% Lidocaine Solution Depth: in the subcutaneous layer Percentage of wound debrided: 100 Instrument Used: 3mm curette Tissue Removed: includes fibrous, devitalized, biofilm, callus and slough tissue Severity: Fat Layer Exposed Amount of bleeding with debridement: Mild Bleeding Controlled with: Pressure Patient tolerated procedure: Patient tolerated procedure well Assessment/Plan Assessment/Plan (1) Non-pressure chronic ulcer of other part of left foot with fat layer exposed: CODE(S): L97.522 - Non-pressure chronic ulcer of other part of left foot with fat layer exposed (2) History of tobacco abuse: CODE(S): Z87.891 - Personal history of nicotine dependence (3) Type 2 diabetes mellitus: CODE(S): E11.9 - Type 2 diabetes mellitus without complications QUALIFIERS: Diabetes mellitus fci insulin use: unspecified fci insulin use status Diabetes mellitus complication status: with cir culatory complication Diabetes mellitus complication detail: with peripheral angiopathy with gangrene Qualified Code(s): E11.52 - Type 2 diabetes mellitus with diabetic peripheral angiopathy with gangrene (4) PAD (peripheral artery disease): CODE(S): I73.9 - Peripheral vascular disease, unspecified (5) Amputated toe: CODE(S): S98.139A - Complete traumatic amputation of one unspecified lesser toe, initial encounter QUALIFIERS: Laterality: left Qualified Code(s): S98.132A - Complete traumatic amputation of one left lesser toe, initial encounter (6) Delayed wound healing: CODE(S): T14.8XXD - Other injury of unspecified body region, subsequent encounter (7) Non-pressure chronic ulcer of other part of left foot with necrosis of bone: CODE(S): L97.524 - Non-pressure chronic ulcer of other part of left foot with necrosis of bone (8) Post-op pain: CODE(S): G89.18 - Other acute postprocedural pain (9) Osteomyelitis: CODE(S): M86.9 - Osteomyelitis, unspecified PLAN: Patient seen and examined with daughter present. Patient noted to have started to wear out with surgical shoe. Prescription was given for new surgical shoe that she can fill at the office with new offloading insert applied. Patient is status post left fifth digit amputation with application of amnio fix graft, attempted delayed primary closure fourth digit amputation site, debridement of hallux ulceration with Dr. López on 01/03/2021. OR pathology of fifth digit showed acute osteomyelitis. Post lavage cultures obtained at surgery demonstrated very rare Pseudomonas. Patient is noted to have had this bacteria noted in previous cultures with possibility of colonization. It is noted that the fourth digit attempted delayed primary closure was not successful and ulceration remains. Overall stable wounds noted to hallux and fourth digit amputation site. Sutures left in place to fifth digit amputation site. Every other day collagen dressing changes to first and fourth digit amputation ulcerations with Betadine to fifth digit amputation site incision. To wash with soap and water prior. Patient is noted to have home health care After verbal consent was obtained sharp excisional debridement of all ulceration sites was carried out Patient noted to have peripheral vascular disease. Patient has been seeing Dr. Nicholson for management of this. Patient had intervention on 06/12/2020 with some regression of her vascular status noted. Patient had intervention again on 10/11/2020 this was performed at [facility]. Patient noted to have had a left iliofemoral profunda endorterectomy with patch angioplasty, balloon angioplasty of femororal popliteal artery as well as peroneal artery. Reviewed proper wound care with patient. Discussed with the patient the importance of offloading the sites with wide enough shoe gear if she is to be wearing shoes, proper diet, good blood sugar control. Patient has used Darci in the past nutritional supplementation. Patient was offered nutritional counseling with a editor school photograph. Patient has offloading surgical shoe. Discussed with the patient all concerning signs and symptoms to watch out for and to contact office if he either presents. Application for TheraSkin skin graft is approved but there is a portion that patient has cover [id number]. Patient will discuss with family if this is doable if she wants to proceed with this she will let us know. Resubmitted to see if her [id number] cost is changed since previous submission. Patient is noted to still be responsible for $325 per application. This is not doable per patient. Also discussed at length possibility of trying to get HBO therapy covered for patient. We will have to reassess chart in order to see if patient would qualify. Patient is wanting to try anything to get her foot to heal. Patient is noted to have failed multiple other modalities with very few left available to her 1 of which is HBO that has not been tried yet. She has failed regular debridements and wound care, amnio fix grafting and surgical amputations and debridements, multiple interventions with vascular surgeon, etc. we are still waiting approval from patient's insurance will continue to follow. Patient is to follow-up in 1 weeks. This note was generated with [employer] dictation software. It may contain incorr ect words, spelling, and punctuation that were not noted in checking the note before signing.
== END 2021-01-22 23:59 ==
LOC: WC 08:45
PROVIDERS: PCP Family Medicine; Referring Provider Podiatrist; Visit Provider Podiatrist Foot & Ankle Surgery
DX: E11.621 Type 2 diabetes mellitus with foot ulcer (principal); L97.522 Non-pressure chronic ulcer of other part of left foot with fat layer exposed; M86.172 Other acute osteomyelitis, left ankle and foot; E11.51 Type 2 diabetes mellitus with diabetic peripheral angiopathy without gangrene; Z89.422 Acquired absence of other left toe(s)
CPT/HCPCS: 11042

== ENCOUNTER 2021-02-19 09:15 | Outpatient (RCR) | payer MEDICARE, SELFPAY ==
[2021-01-23 00:30] VITALS: BP 166/40; PULSE 67; RESP 20; TEMP 36.3; BMI 23.5
[2021-01-29 09:15] VITALS: BP 169/73; PULSE 65; TEMP 36.2; BMI 23.5
--- NOTE | 2021-01-29 11:43 | PN.PCM_ITS ---
History of Present Illness Date of Service: 01/29/21 Chief Complaint: Left foot first digit ulceration Left fourth digit amputation site ulceration PAD History of Wound: Patient had intervention done by Dr. Nicholson on 06/12/2020. Patient saw Dr. Tenorio June 26, 2020 and was started on 100mg gabapentin TID. She has noticed some improvement in her pain. Patient had further intervention with Dr. Nicholson on October 11, 2020. Patient relates having to be transferred to [facility] for this. 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 Amputation of 4th digit with debridement of 1st and 5th digit ulcerations was performed 07/08/20. 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 Patient underwent left fifth digit amputation with attempted delayed closure of fourth digit amputation site ulceration and with application of amnio fix grafting to all sites by Dr. López on 01/03/2021. The attempt for delayed primary closure of the previous fourth digit amputation site ulceration was not successful and ulceration here remains. 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 Patient continues care at the wound care center for remaining left foot wounds Progress of Wound: Improved Subjective Subjective Patient seen and examined resting comfortably. Patient denies any new pedal complaints. Patient denies any nausea, fever, chills, chest pain, shortness of breath, cough, streaking, purulence, vomiting. Patient is still having pain to her left lower extremity she also has anxiety about wound appearance and fear of infection Objective Data Objective Data Vital Signs: Vital Signs Temp Pulse Resp BP 97.2 F L 65 20 H 169/73 H 01/29/21 09:15 01/29/21 09:15 01/23/21 00:30 01/29/21 09:15 Weight: 149 kg Body Mass Index (BMI) 23.5 Physical Exam Narrative Const alert and no apparent distress General Appearance: cooperative and comfortable Lymph Lymphatic: no lymphedema noted Resp normal respiratory effort Effort and Inspection: able to speak in complete sentences Extremity no calf tenderness, negative gume and garcia sign Lower extremity and pedal and lower extremity edema left greater than right General Extremity: no tenderness to palpation of joints or extremities; Negative for clubbing or cyanosis or ecchymosis or erythema Vasc Peripheral Pulses: Yes posterior tibial pulses present +1 and dorsalis pedis pulses present +1, normal capillary refill, no acute ischemic skin changes noted. Capillary fill time less than 3 seconds to all remaining digits left foot Skin General Skin Exam: dry skin and venous stasis, decreased hair growth noted; Negative for ecchymosis, eschar, pallor. Wound Narrative: ulcers noted to left first toe and fourth amputation site. Sutures to the left fifth toe amputation site intact with skin well coapted. Upon removal of the sutures today there was some minor bleeding noted from the suture removal sites. There is healing to 95% of the incision site with very mild area superficially open still without any signs of infection or probing deep structures.. No malodor, purulence, streaking, fluctuation, crepitus. Skin is atrophic and hairless. Fourth digit amputation site no longer probes to bone and there is more granulation tissue noted. Skin is taunt, shiny, thin and atrophic. To level of fat Granular base noted to first digit and fourth digit amputation site. There is some skin sloughing noted likely secondary to decrease in edema to the lateral forefoot this excess skin was removed without incident. Some lower extremity edema noted, mild. DP and PT pulses palpable. Normal skin temperature regained. Foot is warm Neuro Gait (Neuro): heel to toe Sensory Exam: extremities light-touch: decreased MSK Motor Exam: strength 5/5 throughout, ROM to foot and ankle joints within normal limits Psych Appearance: appropriate Attitude: calm Debridement Note Debridement Note Wound debrided: Hallux and fourth digit amputation site Laterality: Left Wound Grade/Stage: Luciano 1 Type of Debridement: Excisional debridement Anesthesia Used: 4% Lidocaine Solution Depth: in the subcutaneous layer Percentage of wound debrided: 100 Instrument Used: 3mm curette Tissue Removed: includes fibrous, devitalized, biofilm, callus and slough tissue Severity: Fat Layer Exposed Amount of bleeding with debridement: Mild Bleeding Controlled with: Pressure Patient tolerated procedure: Patient tolerated procedure well Post-Debridement Measurements and Additional Note: Post-Debridement Measurements/Treatment SOPHIA - Nurse 1 - General Ulcer Assessment Start: 01/29/21 09:05 Freq: Status: Active Protocol: ESVIN Activity Type Activity Date Activity User E-Sign Co-Sign Detail Recorded Client Recorded Date Recorded By Document 01/29/21 09:15 LINSEY [id number] 01/29/21 09:21 LINSEY 01/29/21 09:15 SOPHIA - Today's Visit Information Type of service Follow-up Visit (Physician/ROADWAY DESIGNER ) Arrival Mode Ambulatory,Cane Patient Identification Verified (Name & Yes ) Patient Requires Transmission-Based No Precautions Safety Precautions NA Height and Weight Body Mass Index (BMI) 23.5 BMI Classification Normal Vital Signs Temperature (97.8 F-99.1 F) 97.2 F L Temperature Source Temporal Pulse Rate (60-100) 65 Pulse Location Monitor Blood Pressure (90/60-120/80) 169/73 H Blood Pressure Mean (mm Hg) 105 Source Monitor History Since Last Visit- (Skip if this is Patient's initial visit) Have you changed medications since your No last visit? Any new allergies or adverse reactions No Had a fall/change in ADL's that may No increase risk of falls Signs or symptoms of abuse and/or No neglect since last visit Have you been in the hospital since your No last visit? Has dressing in place as prescribed Yes Has compression in place as prescribed Yes Has offloadiing in place as prescribed Yes Experienced any changes in pain level or No management Left Footwear Regular Shoe Right Footwear Regular Shoe WC - Nurse 1 - General Ulcer Measurement Start: 01/29/21 09:05 Freq: Status: Active Protocol: Activity Type Activity Date Activity User E-Sign Co-Sign Detail Recorded Client Recorded Date Recorded By Document 01/29/21 09:15 LINSEY [id number] 01/29/21 09:21 LINSEY 01/29/21 09:15 Wound Center Nurse 1 #3 4th lateral toe/amp site -Combined with other wound No -Current Size (cm) - Length 2 -Current Size (cm) - Width 0.5 -Current Size (cm) - Depth 0.1 -Total Square Cm 1.0 -Photo Taken No -Tunneling No -Undermining/Tunneling No -Circular Undermining No -Exudate Amt Large -Exudate Type Serosanguineous -Wound Margin Distinct, Outline Attached -Granulation Amt Large (67-100%) -Granulation Quality Pale -Slough/Fibrin Yes -Necrosis Amt Large (67-100%) -Necrotic Tissue Type Adherent Slough -Structure Exposed N/A -Texture (Dot-wound Skin Appearance) Assessed, Scarring -Moisture (Dot-wound Skin Appearance) No Abnormality, Maceration -Color (Dot-wound Skin Appearance) No Abnormality, Assessed -Temperature (Dot-wound Skin No Abnormality Appearance) (Pt Warm) -Tenderness on Palpation (Dot-wound Yes Skin Appearance) -Ulcer Cleansing soap and water -Anesthetic Used 5% Lidocaine Gel #2 L 5th toe AMP site -Current Size (cm) - Length 0.5 -Current Size (cm) - Width 0.3 -Current Size (cm) - Depth 0.1 -Total Square Cm 0.15 -Photo Taken No -Tunneling No -Undermining/Tunneling No -Circular Undermining No -Change in Wound Grade/Stage No -Exudate Amt Large -Exudate Type Serosanguineous -Wound Margin Distinct, Outline Attached -Granulation Quality Pale -Slough/Fibrin Yes -Necrosis Amt Large (67-100%) -Necrotic Tissue Type Adherent Slough -Structure Exposed N/A -Texture (Dot-wound Skin Appearance) No Abnormality, Assessed -Moisture (Dot-wound Skin Appearance) No Abnormality, Assessed -Color (Dot-wound Skin Appearance) No Abnormality, Assessed -Temperature (Dot-wound Skin No Abnormality Appearance) (Pt Warm) -Tenderness on Palpation (Dot-wound No Skin Appearance) -Ulcer Cleansing soap and water -Anesthetic Used 5% Lidocaine Gel #1 L Grt Toe -Current Size (cm) - Length 0.5 -Current Size (cm) - Width 0.3 -Current Size (cm) - Depth 0.1 -Total Square Cm 0.15 -Photo Taken No -Tunneling No -Undermining/Tunneling No -Circular Undermining No -Change in Wound Grade/Stage No -Exudate Amt Large -Exudate Type Serosanguineous -Wound Margin Distinct, Outline Attached -Granulation Amt Small (1-33%) -Granulation Quality Pale -Necrosis Amt None Present (0 %) -Structure Exposed N/A -Texture (Dot-wound Skin Appearance) No Abnormality, Assessed -Moisture (Dot-wound Skin Appearance) No Abnormality, Assessed -Color (Dot-wound Skin Appearance) No Abnormality, Assessed -Temperature (Dot-wound Skin No Abnormality Appearance) (Pt Warm) -Tenderness on Palpation (Dot-wound No Skin Appearance) -Ulcer Cleansing soap and water -Foul Odor after Cleansing No -Anesthetic Used 5% Lidocaine Gel Left Calf (cm) 33 Left Foot (cm) 23 WC - Nurse 2 - General Ulcer CM Notes Start: 01/29/21 09:05 Freq: Status: Active Protocol: Activity Type Activity Date Activity User E-Sign Co-Sign Detail Recorded Client Recorded Date Recorded By Document 01/29/21 09:31 MW [id number] 01/29/21 09:44 MW 01/29/21 09:31 Wound Center Nurse 2 #3 4th lateral toe/amp site -Time 09:32 -Correct Patient Yes -Correct Side, Site, Position Yes -Correct Procedure Yes -Procedure Performed Yes -Type of Procedure Debridement -Clinical Debridement Subcutaneous -Tissue Removed Subcutaneous -Post Debridement (cm) - Length 2.2 -Post Debridement (cm) - Width 0.8 -Post Debridement (cm) - Depth 0.8 -Total Square (Post) (cm) 1.76 -Area of Debridement (cm) - Length 2.2 -Area of Debridement (cm) - Width 0.8 -Total Square (Area) (cm) 1.76 -Tunneling No -Undermining/Tunneling No -Circular Undermining No -Wound/Ulcer Outcome Not Healed -Ulcer Cleansing Rinsed/ Irrigated with Saline -Foul Odor after Cleansing No -Bioengineered Tissue No -Bleeding Controlled with Pressure -Offloading No -Treatment Response Procedure Tolerated Well -Debridement - Subq, 1st 20sq cm Yes #2 L 5th toe AMP site -Time 09:37 -Correct Patient Yes -Correct Side, Site, Position Yes -Correct Procedure Yes -Procedure Performed Yes -Type of Procedure Debridement -Clinical Debridement Subcutaneous -Tissue Removed Subcutaneous -Post Debridement (cm) - Length 0.3 -Post Debridement (cm) - Width 0.1 -Post Debridement (cm) - Depth 0.1 -Total Square (Post) (cm) 0.03 -Area of Debridement (cm) - Length 0.3 -Area of Debridement (cm) - Width 0.1 -Total Square (Area) (cm) 0.03 -Tunneling No -Undermining/Tunneling No -Circular Undermining No -Wound/Ulcer Outcome Not Healed -Ulcer Cleansing Rinsed/ Irrigated with Saline -Foul Odor after Cleansing No -Bioengineered Tissue No -Bleeding Controlled with Pressure -Offloading No -Treatment Response Procedure Tolerated Well -Debridement - Subq, 1st 20sq cm No #1 L Grt Toe -Time 09:37 -Correct Patient Yes -Correct Side, Site, Position Yes -Correct Procedure Yes -Procedure Performed Yes -Type of Procedure Debridement -Clinical Debridement Subcutaneous -Tissue Removed Subcutaneous -Post Debridement (cm) - Length 0.5 -Post Debridement (cm) - Width 0.3 -Post Debridement (cm) - Depth 0.2 -Total Square (Post) (cm) 0.15 -Area of Debridement (cm) - Length 0.5 -Area of Debridement (cm) - Width 0.3 -Total Square (Area) (cm) 0.15 -Tunneling No -Undermining/Tunneling No -Circular Undermining No -Wound/Ulcer Outcome Not Healed -Ulcer Cleansing Rinsed/ Irrigated with Saline -Foul Odor after Cleansing No -Bioengineered Tissue No -Bleeding Controlled with Pressure -Offloading No -Treatment Response Procedure Tolerated Well -Debridement - Subq, 1st 20sq cm No Pain Scale: 0-10 Numeric Is Patient Pain Free? Yes - Nurse 3 - General Ulcer D/C NN Start: 01/29/21 09:05 Freq: Status: Active Protocol: Activity Type Activity Date Activity User E-Sign Co-Sign Detail Recorded Client Recorded Date Recorded By Document 01/29/21 09:53 [facility] [id number] 01/29/21 09:55 [facility] 01/29/21 09:53 Wound Care Nurse 3 #3 4th lateral toe/amp site -Ulcer Cleansing Rinsed/ Irrigated with Saline -Foul Odor after Cleansing No -Primary Dressing Applied C Hydrogel ($), NonAdherent Contact Layer -Other Dressing drsg per aK [employer] -Primary Dressing Covered/Secured with Dry Gauze & Roll Gauze, Secured with Tape #2 L 5th toe AMP site -Ulcer Cleansing Rinsed/ Irrigated with Saline -Foul Odor after Cleansing No -Primary Dressing Applied NonAdherent Contact Layer -Other Dressing HYDROGEL -Primary Dressing Covered/Secured with Dry Gauze & Roll Gauze, Secured with Tape -Other Covering DRSG PER [place] [employer] #1 L Grt Toe -Ulcer Cleansing Rinsed/ Irrigated with Saline -Foul Odor after Cleansing No -Primary Dressing Applied NonAdherent Contact Layer -Other Dressing HYDROGEL -Primary Dressing Covered/Secured with Dry Gauze & Roll Gauze, Secured with Tape -Other Covering DRSG PER [place] [employer] Treatment Response Procedure Tolerated Well Pain Scale: 0-10 Numeric Is Patient Pain Free? Yes - Visit Discharge Discharge Condition Stable Ambulatory Status Ambulatory,Cane Transportation Private Auto Accompanied by DAUGHTER Facility Type Home Health Assessment/Plan Assessment/Plan (1) Non-pressure chronic ulcer of other part of left foot with fat layer exposed: CODE(S): L97.522 - Non-pressure chronic ulcer of other part of left foot with fat layer exposed (2) PAD (peripheral artery disease): CODE(S): I73.9 - Peripheral vascular disease, unspecified (3) Type 2 diabetes mellitus: CODE(S): E11.9 - Type 2 diabetes mellitus without complications QUALIFIERS: Diabetes mellitus complication detail: with peripheral angiopathy with gangrene Diabetes mellitus complication status: with circulatory complication Diabetes mellitus nursing home insulin use: unspecified nursing home insulin use status Qualified Code(s): E11.52 - Type 2 diabetes mellitus with diabetic peripheral angiopathy with gangrene (4) Osteomyelitis: CODE(S): M86.9 - Osteomyelitis, unspecified QUALIFIERS: Laterality: left Osteomyelitis location: foot Osteomyelitis type: subacute Qualified Code(s): M86.272 - Subacute osteomyelitis, left ankle and foot (5) Amputated toe: CODE(S): S98.139A - Complete traumatic amputation of one unspecified lesser toe, initial encounter QUALIFIERS: Laterality: left Qualified Code(s): S98.132A - Complete traumatic amputation of one left lesser toe, initial encounter (6) History of tobacco abuse: CODE(S): Z87.891 - Personal history of nicotine dependence (7) Foot pain, left: CODE(S): M79.672 - Pain in left foot (8) Delayed wound healing: CODE(S): T14.8XXD - Other injury of unspecified body region, subsequent encounter PLAN: Patient seen and examined with granddaughter present. Patient is status post left fifth digit amputation with application of amnio fix graft, attempted delayed primary closure fourth digit amputation site, debridement of hallux ulceration with Dr. López on 01/03/2021. OR pathology of fifth digit showed acute osteomyelitis. Post lavage cultures obtained at surgery demonstrated very rare Pseudomonas. Patient is noted to have had this bacteria noted in previous cultures with possibility of colonization. It is noted that the fourth digit attempted delayed primary closure was not successful and ulceration remains. Sutures to fifth digit amputation site were removed today without incident. There is some normal bleeding noted from suture removal sites with small area that is not 100% healed but is superficial in nature. This area was reinforced with Steri-Strips. Patient is also noted to have some skin sloughing to the distal lateral forefoot likely from decrease in edema. This extra skin was removed without incident. Overall stable wounds noted to hallux and fourth digit amputation site. Every other day collagen dressing changes to first and fourth digit amputation ulcerations with hydrogel covered with dry sterile dressing. To wash with soap and water prior. Patient is noted to have home health care. After verbal consent was obtained sharp excisional debridement of all ulceration sites was carried out Patient noted to have peripheral vascular disease. Patient has been seeing Dr. Nicholson for management of this. Patient had intervention on 06/12/2020 with some regression of her vascular status noted. Patient had intervention again on 10/11/2020 this was performed at [facility]. Patient noted to have had a left iliofemoral profunda endorterectomy with patch angioplasty, balloon angioplasty of femororal popliteal artery as well as peroneal artery. Reviewed proper wound care with patient. Discussed with the patient the importance of offloading the sites with wide enough shoe gear if she is to be wearing shoes, proper diet, good blood sugar control. Patient has used Darci in the past nutritional supplementation. She continues to use this twice a day. Patient was offered nutritional counseling with a instrument repair supervisor. Patient has offloading surgical shoe. Discussed with the patient all concerning signs and symptoms to watch out for and to contact office if he either presents. Application for TheraSkin skin graft is approved but there is a portion that patient has cover [id number]. Patient will discuss with family if this is doable if she wants to proceed with this she will let us know. Resubmitted to see if her [id number] cost is changed since previous submission. Patient is noted to still be responsible for $325 per application. This is not doable per patient. Also discussed at length possibility of trying to get HBO therapy covered for patient. We will have to reassess chart in order to see if patient would qualify. Patient is wanting to try anything to get her foot to heal. Patient is noted to have failed multiple other modalities with very few left available to her 1 of which is HBO that has not been tried yet. She has failed regular debridements and wound care, amnio fix grafting and surgical amputations and debridements, multiple interventions with vascular surgeon, etc. we are still waiting approval from patient's insurance will continue to follow. Patient is also noted to have had osteomyelitis to her fourth and fifth toes. Patient is to follow-up in 1 week. This note was generated with [employer] dictation software. It may contain incorrect words, spelling, and punctuation that were not noted in checking the note before signing.
[2021-02-05 09:25] VITALS: BP 171/67; PULSE 66; RESP 22; TEMP 36.6; BMI 23.5
--- NOTE | 2021-02-05 11:14 | PN.PCM_ITS ---
History of Present Illness Date of Service: 02/05/21 Chief Complaint: Left foot first digit ulceration Left fourth digit amputation site ulceration PAD History of Wound: Patient had intervention done by Dr. Nicholson on 06/12/2020. Patient saw Dr. Tenorio June 26, 2020 and was started on 100mg gabapentin TID. She has noticed some improvement in her pain. Patient had further intervention with Dr. Nicholson on October 11, 2020. Patient relates having to be transferred to [facility] for this. 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 Amputation of 4th digit with debridement of 1st and 5th digit ulcerations was performed 07/08/20. 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 Patient underwent left fifth digit amputation with attempted delayed closure of fourth digit amputation site ulceration and with application of amnio fix grafting to all sites by Dr. López on 01/03/2021. The attempt for delayed primary closure of the previous fourth digit amputation site ulceration was not successful and ulceration here remains. 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 Patient continues care at the wound care center for remaining left foot wounds Progress of Wound: New wound left fifth metatarsal head and signs of infection Subjective Subjective Patient seen and examined resting comfortably. Patient denies any nausea, fever, chills, chest pain, shortness of breath, cough, streaking, purulence, vomiting. She relates some tight feeling in her calf. She relates that she is dangling her foot over side of bed at night to help relieve her pain. Objective Data Objective Data Vital Signs: Vital Signs Temp Pulse Resp BP 97.8 F 66 22 H 171/67 H 02/05/21 09:25 02/05/21 09:25 02/05/21 09:25 02/05/21 09:25 Weight: 149 kg Body Mass Index (BMI) 23.5 Physical Exam Narrative Const alert and no apparent distress General Appearance: cooperative and comfortable Lymph Lymphatic: no lymphedema noted Resp normal respiratory effort Effort and Inspection: able to speak in complete sentences Extremity no calf tenderness, negative gume and sainz sign Lower extremity and pedal and lower extremity edema left greater than right General Extremity: no tenderness to palpation of joints or extremities; Negative for clubbing or cyanosis or ecchymosis or erythema Vasc Peripheral Pulses: Yes posterior tibial pulses present +1 and dorsalis pedis pulses present +1, normal capillary refill, no acute ischemic skin changes noted. Capillary fill time less than 3 seconds to all remaining digits left foot Skin General Skin Exam: dry skin and venous stasis, decreased hair growth noted; Negative for ecchymosis, eschar, pallor. Wound Narrative: ulcers noted to left first toe and fourth amputation site. New wound to left fifth metatarsal head area. Incision to left fifth digit amputation has dehisced with exposure of the fifth metatarsal head noted. The metatarsal head bone is exposed. There is surrounding erythema and edema to lateral forefoot. There is serous drainage noted. No purulence. Skin is atrophic and hairless dry and flaky. Fourth digit amputation site no longer probes to bone and there is fibrotic and granulation tissue noted. Skin is taunt, shiny, thin and atrophic. To level of fat Granular base noted to first digit and fourth digit amputation site. Medial left hallux ulceration. No erythema, edema, malodor, drainage, probing. To the level of fascia. Granular fibrotic base. Some lower extremity edema noted, mild. DP and PT pulses palpable but dimi nished. Normal skin temperature remains. Foot is warm, but symptoms are concerning for vascular change. There is some increasing rubor noted to entire lower extremity. Negative Gume and Sainz sign Neuro Gait (Neuro): heel to toe Sensory Exam: extremities light-touch: decreased MSK Motor Exam: strength 5/5 throughout, ROM to foot and ankle joints within normal limits Psych Appearance: appropriate Attitude: calm Debridement Note Debridement Note Wound debrided: Medial hallux and fourth amputation site Laterality: Left Wound Grade/Stage: Luciano 2 Type of Debridement: Excisional debridement Anesthesia Used: 5% Lidocaine Gel Depth: in the subcutaneous layer Percentage of wound debrided: 100 Instrument Used: 3mm curette Tissue Removed: includes fibrous, devitalized, biofilm, callus and slough tissue Severity: Fat Layer Exposed Amount of bleeding with debridement: Mild Bleeding Controlled with: Pressure Patient tolerated procedure: Patient tolerated procedure well Post-Debridement Measurements and Additional Note: Post-Debridement Measurements/Treatment WC - Nurse 1 - General Ulcer Assessment Start: 01/29/21 09:05 Freq: Status: Active Protocol: SOPHIA.NORMA Activity Type Activity Date Activity User E-Sign Co-Sign Detail Recorded Client Recorded Date Recorded By Document 01/29/21 09:15 [place] [id number] 01/29/21 09:21 [place] Document 02/05/21 09:25 DL [id number] 02/05/21 09:35 DL 01/29/21 02/05/21 09:15 09:25 - Today's Visit Information Type of service Follow-up Visit Follow-up Visit (Physician/AIDS COUNSELOR (Physician/AIDS COUNSELOR ) ) Arrival Mode Ambulatory,Cane Ambulatory Transfer Assistance None Patient Identification Verified (Name & Yes Yes ) Patient Requires Transmission-Based No No Precautions Safety Precautions NA Finger Stick Blood Sugar(mg/dl) (if 123 indicated): Blood Sugar Stated by Patient Height and Weight Body Mass Index (BMI) 23.5 23.5 BMI Classification Normal Normal Vital Signs Temperature (97.8 F-99.1 F) 97.2 F L 97.8 F Temperature Source Temporal Temporal Pulse Rate (60-100) 65 66 Pulse Location Monitor Monitor Respiratory Rate (12-18) 22 H Blood Pressure (90/60-120/80) 169/73 H 171/67 H Blood Pressure Mean (mm Hg) 105 101 Source Monitor Monitor History Since Last Visit- (Skip if this is Patient's initial visit) Have you changed medications since your No No last visit? Any new allergies or adverse reactions No No Had a fall/change in ADL's that may No No increase risk of falls Signs or symptoms of abuse and/or No No neglect since last visit Have you been in the hospital since your No No last visit? Has dressing in place as prescribed Yes Yes Has compression in place as prescribed Yes Yes Has offloadiing in place as prescribed Yes Yes Experienced any changes in pain level or No No management Left Footwear Regular Shoe Right Footwear Regular Shoe Pain Scale: 0-10 Numeric Is Patient Pain Free? Yes - Nurse 1 - General Ulcer Measurement Start: 01/29/21 09:05 Freq: Status: Active Protocol: Activity Type Activity Date Activity User E-Sign Co-Sign Detail Recorded Client Recorded Date Recorded By Document 01/29/21 09:15 [place] [id number] 01/29/21 09:21 [place] Document 02/05/21 09:25 DL [id number] 02/05/21 09:35 DL 01/29/21 02/05/21 09:15 09:25 Wound Center Nurse 1 #3 4th lateral toe/amp site -Combined with other wound No -Current Size (cm) - Length 2 1.7 -Current Size (cm) - Width 0.5 0.5 -Current Size (cm) - Depth 0.1 0.4 -Total Square Cm 1.0 0.85 -Photo Taken No No -Tunneling No -Undermining/Tunneling No -Circular Undermining No -Exudate Amt Large Medium -Exudate Type Serosanguineous Serosanguineous -Wound Margin Distinct, Distinct, Outline Outline Attached Attached -Granulation Amt Large (67-100%) Small (1-33%) -Granulation Quality Pale [place] -Slough/Fibrin Yes -Necrosis Amt Large (67-100%) Large (67-100%) -Necrotic Tissue Type Adherent Slough Adherent Slough -Structure Exposed N/A -Texture (Dot-wound Skin Appearance) Assessed, Localized Edema Scarring -Moisture (Dot-wound Skin Appearance) No Abnormality, Maceration Maceration -Color (Dot-wound Skin Appearance) No Abnormality, Erythema Assessed -Temperature (Dot-wound Skin No Abnormality No Abnormality Appearance) (Pt Warm) (Pt Warm) -Tenderness on Palpation (Dot-wound Yes Skin Appearance) -Ulcer Cleansing soap and water Wound Cleanser -Foul Odor after Cleansing No -Anesthetic Used 5% Lidocaine 4% Lidocaine Gel Solution #2 L 5th toe AMP site -Current Size (cm) - Length 0.5 0.7 -Current Size (cm) - Width 0.3 0.7 -Current Size (cm) - Depth 0.1 0.1 -Total Square Cm 0.15 0.49 -Photo Taken No No -Tunneling No -Undermining/Tunneling No -Circular Undermining No -Change in Wound Grade/Stage No -Exudate Amt Large Small -Exudate Type Serosanguineous Serosanguineous -Wound Margin Distinct, Distinct, Outline Outline Attached Attached -Granulation Amt Large (67-100%) -Granulation Quality Pale [place] -Slough/Fibrin Yes -Necrosis Amt Large (67-100%) Small (1-33%) -Necrotic Tissue Type Adherent Slough Adherent Slough -Structure Exposed N/A N/A -Texture (Dot-wound Skin Appearance) No Abnormality, Localized Edema Assessed ,Scarring -Moisture (Dot-wound Skin Appearance) No Abnormality, No Abnormality Assessed -Color (Dot-wound Skin Appearance) No Abnormality, Erythema Assessed -Temperature (Dot-wound Skin No Abnormality No Abnormality Appearance) (Pt Warm) (Pt Warm) -Tenderness on Palpation (Dot-wound No No Skin Appearance) -Ulcer Cleansing soap and water Wound Cleanser -Foul Odor after Cleansing No -Anesthetic Used 5% Lidocaine 4% Lidocaine Gel Solution #1 L Grt Toe -Current Size (cm) - Length 0.5 0.4 -Current Size (cm) - Width 0.3 0.2 -Current Size (cm) - Depth 0.1 0.2 -Total Square Cm 0.15 0.08 -Photo Taken No No -Tunneling No -Undermining/Tunneling No -Circular Undermining No -Change in Wound Grade/Stage No -Exudate Amt Large Small -Exudate Type Serosanguineous Yellow/Green -Wound Margin Distinct, Distinct, Outline Outline Attached Attached -Granulation Amt Small (1-33%) None Present (0 %) -Granulation Quality Pale -Necrosis Amt None Present (0 Small (1-33%) %) -Necrotic Tissue Type Adherent Slough -Structure Exposed N/A N/A -Texture (Dot-wound Skin Appearance) No Abnormality, Scarring Assessed -Moisture (Dot-wound Skin Appearance) No Abnormality, Assessed -Color (Dot-wound Skin Appearance) No Abnormality, No Abnormality Assessed -Temperature (Dot-wound Skin No Abnormality No Abnormality Appearance) (Pt Warm) (Pt Warm) -Tenderness on Palpation (Dot-wound No No Skin Appearance) -Ulcer Cleansing soap and water Wound Cleanser -Foul Odor after Cleansing No No -Anesthetic Used 5% Lidocaine 4% Lidocaine Gel Solution Left Calf (cm) 33 36.2 Left Ankle (cm) 22.2 Left Foot (cm) 23 WC - Nurse 2 - General Ulcer CM Notes Start: 01/29/21 09:05 Freq: Status: Active Protocol: Activity Type Activity Date Activity User E-Sign Co-Sign Detail Recorded Client Recorded Date Recorded By Document 01/29/21 09:31 MW [id number] 01/29/21 09:44 MW Document 02/05/21 09:41 JF [id number] 02/05/21 09:57 JF 01/29/21 02/05/21 09:31 09:41 Wound Center Nurse 2 #3 4th lateral toe/amp site -Time 09:32 09:41 -Correct Patient Yes Yes -Correct Side, Site, Position Yes Yes -Correct Procedure Yes Yes -Procedure Performed Yes Yes -Type of Procedure Debridement Debridement -Clinical Debridement Subcutaneous Subcutaneous -Tissue Removed Subcutaneous Subcutaneous -Post Debridement (cm) - Length 2.2 2.5 -Post Debridement (cm) - Width 0.8 0.8 -Post Debridement (cm) - Depth 0.8 0.5 -Total Square (Post) (cm) 1.76 2.00 -Area of Debridement (cm) - Length 2.2 2.5 -Area of Debridement (cm) - Width 0.8 0.8 -Total Square (Area) (cm) 1.76 2.00 -Tunneling No No -Undermining/Tunneling No No -Circular Undermining No No -Wound/Ulcer Outcome Not Healed Not Healed -Ulcer Cleansing Rinsed/ Rinsed/ Irrigated with Irrigated with Saline Saline -Foul Odor after Cleansing No No -Bioengineered Tissue No No -Bleeding Controlled with Pressure Pressure -Offloading No Yes -Type of Offloading Surgical Shoe -Treatment Response Procedure Procedure Tolerated Well Tolerated Well -Debridement - Subq, 1st 20sq cm Yes No #2 L 5th toe AMP site -Time 09:37 09:42 -Correct Patient Yes Yes -Correct Side, Site, Position Yes Yes -Correct Procedure Yes Yes -Procedure Performed Yes Yes -Type of Procedure Debridement Debridement -Clinical Debridement Subcutaneous Subcutaneous -Tissue Removed Subcutaneous Subcutaneous -Post Debridement (cm) - Length 0.3 0.8 -Post Debridement (cm) - Width 0.1 0.6 -Post Debridement (cm) - Depth 0.1 0.1 -Total Square (Post) (cm) 0.03 0.48 -Area of Debridement (cm) - Length 0.3 0.8 -Area of Debridement (cm) - Width 0.1 0.6 -Total Square (Area) (cm) 0.03 0.48 -Tunneling No No -Undermining/Tunneling No No -Circular Undermining No No -Wound/Ulcer Outcome Not Healed Not Healed -Ulcer Cleansing Rinsed/ Rinsed/ Irrigated with Irrigated with Saline Saline -Foul Odor after Cleansing No No -Bioengineered Tissue No No -Bleeding Controlled with Pressure Pressure -Offloading No Yes -Type of Offloading Surgical Shoe -Treatment Response Procedure Procedure Tolerated Well Tolerated Well -Debridement - Subq, 1st 20sq cm No No #1 L Grt Toe -Time 09:37 09:42 -Correct Patient Yes Yes -Correct Side, Site, Position Yes Yes -Correct Procedure Yes Yes -Procedure Performed Yes Yes -Type of Procedure Debridement Debridement -Clinical Debridement Subcutaneous Subcutaneous -Tissue Removed Subcutaneous Subcutaneous -Post Debridement (cm) - Length 0.5 0.7 -Post Debridement (cm) - Width 0.3 0.4 -Post Debridement (cm) - Depth 0.2 0.2 -Total Square (Post) (cm) 0.15 0.28 -Area of Debridement (cm) - Length 0.5 0.7 -Area of Debridement (cm) - Width 0.3 0.4 -Total Square (Area) (cm) 0.15 0.28 -Tunneling No No -Undermining/Tunneling No No -Circular Undermining No No -Wound/Ulcer Outcome Not Healed Not Healed -Ulcer Cleansing Rinsed/ Rinsed/ Irrigated with Irrigated with Saline Saline -Foul Odor after Cleansing No No -Bioengineered Tissue No No -Bleeding Controlled with Pressure Pressure -Offloading No No -Treatment Response Procedure Procedure Tolerated Well Tolerated Well -Debridement - Subq, 1st 20sq cm No Yes Pain Scale: 0-10 Numeric Is Patient Pain Free? Yes Yes WC - Nurse 3 - General Ulcer D/C NN Start: 01/29/21 09:05 Freq: Status: Active Protocol: Activity Type Activity Date Activity User E-Sign Co-Sign Detail Recorded Client Recorded Date Recorded By Document 01/29/21 09:53 [facility] [id number] 01/29/21 09:55 [facility] Document 02/05/21 10:17 [facility] [id number] 02/05/21 10:18 [facility] 01/29/21 02/05/21 09:53 10:17 Wound Care Nurse 3 #3 4th lateral toe/amp site -Ulcer Cleansing Rinsed/ Rinsed/ Irrigated with Irrigated with Saline Saline -Foul Odor after Cleansing No No -Primary Dressing Applied C Hydrogel ($), Aquacel AG 4x4 NonAdherent Contact Layer -Other Dressing drsg per aK RESEARCH AND DEVELOPMENT CHEMIST -Primary Dressing Covered/Secured with Dry Gauze & Dry Gauze & Roll Gauze, Roll Gauze, Secured with Secured with Tape Tape -Aquacel AG 4x4 1 #2 L 5th toe AMP site -Ulcer Cleansing Rinsed/ Rinsed/ Irrigated with Irrigated with Saline Saline -Foul Odor after Cleansing No No -Primary Dressing Applied NonAdherent Aquacel AG 4x4 Contact Layer -Other Dressing HYDROGEL -Primary Dressing Covered/Secured with Dry Gauze & Dry Gauze & Roll Gauze, Roll Gauze, Secured with Secured with Tape Tape -Other Covering DRSG PER [place] RESEARCH AND DEVELOPMENT CHEMIST -Aquacel AG 4x4 0 #1 L Grt Toe -Ulcer Cleansing Rinsed/ Rinsed/ Irrigated with Irrigated with Saline Saline -Foul Odor after Cleansing No No -Primary Dressing Applied NonAdherent Aquacel AG 4x4 Contact Layer -Other Dressing HYDROGEL -Primary Dressing Covered/Secured with Dry Gauze & Dry Gauze & Roll Gauze, Roll Gauze, Secured with Secured with Tape Tape -Other Covering DRSG PER [place] RESEARCH AND DEVELOPMENT CHEMIST -Aquacel AG 4x4 0 Left -Compression Wrap Pedro Wrap Treatment Response Procedure Procedure Tolerated Well Tolerated Well Pain Scale: 0-10 Numeric Is Patient Pain Free? Yes Yes WC - Visit Discharge Discharge Condition Stable Stable Ambulatory Status Ambulatory,Cane Ambulatory,Cane Transportation Private Auto Private Auto Accompanied by GR DAUGHTER daughter Facility Type Home Health Home Health Additional Wound Wound debrided: Fifth metatarsal head Laterality: Left Wound Grade/Stage: Luciano 2 Type of Debridement: Excisional debridement Anesthesia Used: 4% Lidocaine Solution Depth: to bone (Debrided to subcu) Percentage of wound debrided: 100 Instrument Used: 3mm curette Tissue Removed: Includes fibrous, devitalized, biofilm, callus and slough tissue Severity: Fat Layer Exposed (Metatarsal head exposed) Amount of bleeding with debridement: Mild Bleeding Controlled with: Pressure Patient tolerated procedure: Patient tolerated procedure well Assessment/Plan Assessment/Plan (1) Non-pressure chronic ulcer of other part of left foot with fat layer exposed: CODE(S): L97.522 - Non-pressure chronic ulcer of other part of left foot with fat layer exposed (2) PAD (peripheral artery disease): CODE(S): I73.9 - Peripheral vascular disease, unspecified (3) Type 2 diabetes mellitus: CODE(S): E11.9 - Type 2 diabetes mellitus without complications QUALIFIERS: Diabetes mellitus buttermaker helper insulin use: unspecified buttermaker helper insulin use status Diabetes mellitus complication status: with circul atory complication Diabetes mellitus complication detail: with peripheral angiopathy with gangrene Qualified Code(s): E11.52 - Type 2 diabetes mellitus with diabetic peripheral angiopathy with gangrene (4) Osteomyelitis: CODE(S): M86.9 - Osteomyelitis, unspecified QUALIFIERS: Osteomyelitis type: subacute Osteomyelitis location: foot Laterality: left Qualified Code(s): M86.272 - Subacute osteomyelitis, left ankle and foot (5) Amputated toe: CODE(S): S98.139A - Complete traumatic amputation of one unspecified lesser toe, initial encounter QUALIFIERS: Laterality: left Qualified Code(s): S98.132A - Complete traumatic amputation of one left lesser toe, initial encounter (6) History of tobacco abuse: CODE(S): Z87.891 - Personal history of nicotine dependence (7) Foot pain, left: CODE(S): M79.672 - Pain in left foot (8) Delayed wound healing: CODE(S): T14.8XXD - Other injury of unspecified body region, subsequent encounter (9) Ulcer of left foot with bone involvement without evidence of necrosis: CODE(S): L97.526 - 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 without evidence of necrosis (10) Cellulitis of left foot: CODE(S): L03.116 - Cellulitis of left lower limb PLAN: Patient seen and examined with daughter present. She has new wound to left fifth foot at fifth metatarsal head which probes to bone. Lateral forefoot is noted to be erythematous with signs of infection cellulitis. Is noted that the incision to the fifth digit amputation has slightly dehisced with exposure of the fifth metatarsal head. There is also concern for PVD again as patient relates that she is having pain in her calf as well as experiencing relief with dangling of her foot over the side of the bed at night. Patient is noted to have appointment with Dr. Nicholson she believes on February 18 for follow-up. Discussed that this is important as there does seem to be a vascular component to her delayed wound healing again even though she has had multiple interventions already. Discussed with her that sometimes these interventions need to be repeated. Discussed difficulty of healing if not having adequate blood flow. Patient is status post left fifth digit amputation with application of amnio fix graft, attempted delayed primary closure fourth digit amputation site, debridement of hallux ulceration with Dr. López on 01/03/2021. OR pathology of fifth digit showed acute osteomyelitis. Post lavage cultures obtained at surgery demonstrated very rare Pseudomonas. Patient is noted to have had this bacteria noted in previous cultures with possibility of colonization. It is noted that the fourth digit attempted delayed primary closure was not successful and ulceration remains. Cultures were taken of the lateral forefoot ulcerations. Patient was started on levofloxacin based on previous cultures of Pseudomonas. Discussed case with Dr. Villalobos who agreed with daily levo floxacillin treatment. Will adjust if new cultures show other bacteria. Prescription was sent to patient's pharmacy. Every other day Aquacel silver dressing changes to ulceration sites covered with dry sterile dressing. To wash with soap and water prior. Patient is noted to have home health care. After verbal consent was obtained sharp excisional debridement of all ulceration sites was carried out Patient noted to have peripheral vascular disease. Patient has been seeing Dr. Nicholson for management of this. Patient had intervention on 06/12/2020 with some regression of her vascular status noted. Patient had intervention again on 10/11/2020 this was performed at [facility]. Patient noted to have had a left iliofemoral profunda endorterectomy with patch angioplasty, balloon angioplasty of femororal popliteal artery as well as peroneal artery. Patient has another appointment with Dr. Nicholson upcoming. Patient is reexperiencing poor vascular status symptoms Reviewed proper wound care with patient. Discussed with the patient the importance of offloading the sites with wide enough shoe gear if she is to be wearing shoes, proper diet, good blood sugar control. Patient has used Darci in the past nutritional supplementation. She continues to use this twice a day. Patient was offered nutritional counseling with a furniture finisher apprentice. Patient has offloading surgical shoe. Discussed with the patient all concerning signs and symptoms to watch out for and to contact office if he either presents. Application for TheraSkin skin graft is approved but there is a portion that patient has cover [id number]. Patient will discuss with family if this is doable if she wants to proceed with this she will let us know. Resubmitted to see if her [id number] cost is changed since previous submission. Patient is noted to still be responsible for $325 per application. This is not doable per patient. Also discussed at length possibility of trying to get HBO therapy covered for patient. We will have to reassess chart in order to see if patient would qualify. Patient is wanting to try anything to get her foot to heal. Patient is noted to have failed multiple other modalities with very few left available to her 1 of which is HBO that has not been tried yet. She has failed regular debridements and wound care, amnio fix grafting and surgical amputations and debridements, multiple interventions with vascular surgeon, etc. we are still waiting approval from patient's insurance will continue to follow. Patient is also noted to have had osteomyelitis to her fourth and fifth toes. Patient is to follow-up in 1 week. This note was generated with [employer] dictation software. It may contain incorrect words, spelling, and punctuation that were not noted in checking the note before signing.
[2021-02-05 13:55] LABS: M R Staph aureus DNA By PCR Negative (Negative); Probe Check PASS; Specimen Processing Control PASS; Staph aureus DNA By PCR NEGATIVE (Negative)
--- NOTE | 2021-02-12 08:28 | PN.PCM_ITS ---
History of Present Illness Date of Service: 02/12/21 Chief Complaint: Left foot first digit ulceration Left fourth digit amputation site ulceration PAD History of Wound: Patient had intervention done by Dr. Nicholson on 06/12/2020. Patient saw Dr. Tenorio June 26, 2020 and was started on 100mg gabapentin TID. She has noticed some improvement in her pain. Patient had further intervention with Dr. Nicholson on October 11, 2020. Patient relates having to be transferred to [facility] for this. 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 Amputation of 4th digit with debridement of 1st and 5th digit ulcerations was performed 07/08/20. 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 Patient underwent left fifth digit amputation with attempted delayed closure of fourth digit amputation site ulceration and with application of amnio fix grafting to all sites by Dr. López on 01/03/2021. The attempt for delayed primary closure of the previous fourth digit amputation site ulceration was not successful and ulceration here remains. 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 Patient continues care at the wound care center for remaining left foot wounds Progress of Wound: Stable Subjective Subjective Patient seen and examined resting comfortably. Patient denies any new pedal complaints. Patient denies any nausea, fever, chills, chest pain, shortness of breath, cough, streaking, purulence, vomiting. Patient is reporting rest pain in her calf especially at night. She reports having to go between elevation and dependency of her limb in order to help with the pain. She has had significant increase in swelling Objective Data Objective Data Vital Signs: Vital Signs Temp Pulse Resp BP 97.8 F 66 22 H 171/67 H 02/05/21 09:25 02/05/21 09:25 02/05/21 09:25 02/05/21 09:25 Weight: 149 kg Body Mass Index (BMI) 23.5 Lab / Micro Data Micro: Microbiology 02/05/21 Unknown Wound Abcess - Left Foot Gram Stain - Final 02/05/21 Unknown Wound Abcess - Left Foot Wound Culture - Final Pseudomonas aeroginosa 02/05/21 Unknown Wound Abcess - Left Foot Anaerobic Culture - Final No anaerobic bacteria isolated. Physical Exam Narrative Const alert and no apparent distress General Appearance: cooperative and comfortable Lymph Lymphatic: no lymphedema noted Resp normal respiratory effort Effort and Inspection: able to speak in complete sentences Extremity no calf tenderness, negative gume and sainz sign Lower extremity and pedal and lower extremity edema left greater than right General Extremity: no tenderness to palpation of joints or extremities; Negative for clubbing or cyanosis or ecchymosis or erythema Vasc Left foot peripheral Pulses: Yes posterior tibial pulse nonpalpable and dorsalis pedis pulses present +1, no acute ischemic skin changes noted. Capillary fill time greater than 3 seconds to all remaining digits left foot Skin General Skin Exam: dry skin and venous stasis, decreased hair growth noted; Negative for ecchymosis, eschar, pallor. Wound Narrative: ulcers noted to left first toe and fourth and fifth amputation site. Fifth toe amputation site ulceration probes to metatarsal head. Incision to left fifth digit amputation has dehisced with exposure of the fifth metatarsal head noted. The metatarsal head bone is exposed. There is surrounding erythema and edema to lateral forefoot. There is serosanguineous drainage noted. No purulence. Skin is atrophic and hairless dry and flaky. Fourth digit amputation site no longer probes to bone and there is fibrotic and granulation tissue noted. Skin is taunt, shiny, thin and atrophic. To level of fat Granular base noted to first digit and fourth digit amputation site. Medial left hallux ulceration. No erythema, edema, malodor, drainage, probing. To the level of fascia. Granular fibrotic base. Increased lower extremity edema noted, especially to medial ankle. Normal skin temperature remains. Foot is warm, but symptoms are concerning for vascular change. There is some increasing rubor noted to entire lower extremity. Negative Gume and Sainz sign Neuro Gait (Neuro): heel to toe Sensory Exam: extremities light-touch: decreased MSK Motor Exam: strength 5/5 throughout, ROM to foot and ankle joints within normal limits Psych Appearance: appropriate Attitude: calm Debridement Note Debridement Note Wound debrided: Medial hallux and fourth digit amputation site Laterality: Left Wound Grade/Stage: Luciano 1 Type of Debridement: Excisional debridement Anesthesia Used: 5% Lidocaine Gel Depth: in the subcutaneous layer Percentage of wound debrided: 100 Instrument Used: 3mm curette Tissue Removed: includes fibrous, devitalized, biofilm, callus and slough tissue Severity: Fat Layer Exposed Amount of bleeding with debridement: Mild Bleeding Controlled with: Pressure Patient tolerated procedure: Patient tolerated procedure well Post-Debridement Measurements and Additional Note: Wound Measurements and Assessment WC - Nurse 1 - General Ulcer Measurement Start: 01/29/21 09:05 Freq: Status: Active Protocol: Activity Type Activity Date Activity User E-Sign Co-Sign Detail Recorded Client Recorded Date Recorded By Document 02/12/21 09:10 SHEILA [id number] 02/12/21 09:14 DL 02/12/21 09:10 Wound Center Nurse 1 [Ulcer Assessment] #3 4th lateral toe/amp site -Current Size (cm) - Length 2.1 -Current Size (cm) - Width 0.7 -Current Size (cm) - Depth 0.4 -Total Square Cm 1.47 -Photo Taken No -Exudate Amt Medium -Exudate Type Serosanguineous -Wound Margin Distinct, Outline Attached -Granulation Amt None Present (0 %) -Necrosis Amt Large (67-100%) -Necrotic Tissue Type Adherent Slough -Structure Exposed N/A -Texture (Dot-wound Skin Appearance) Scarring -Moisture (Dot-wound Skin Appearance No Abnormality ) -Color (Dot-wound Skin Appearance) Erythema -Temperature (Dot-wound Skin No Abnormality Appearance) (Pt Warm) -Tenderness on Palpation (Dot-wound No Skin Appearance) -Ulcer Cleansing Wound Cleanser -Foul Odor after Cleansing No -Anesthetic Used 5% Lidocaine Gel #2 L 5th toe AMP site -Current Size (cm) - Length 1.7 -Current Size (cm) - Width 0.6 -Current Size (cm) - Depth 1 -Total Square Cm 1.02 -Photo Taken No -Exudate Amt Medium -Exudate Type Serosanguineous -Wound Margin Distinct, Outline Attached -Granulation Amt Small (1-33%) -Granulation Quality [place] -Necrosis Amt Large (67-100%) -Necrotic Tissue Type Adherent Slough -Structure Exposed N/A -Texture (Dot-wound Skin Appearance) Scarring -Moisture (Dot-wound Skin Appearance No Abnormality ) -Color (Dot-wound Skin Appearance) Erythema -Temperature (Dot-wound Skin No Abnormality Appearance) (Pt Warm) -Tenderness on Palpation (Dot-wound No Skin Appearance) -Ulcer Cleansing Wound Cleanser -Foul Odor after Cleansing No -Anesthetic Used 5% Lidocaine Gel #1 L Grt Toe -Current Size (cm) - Length 0.4 -Current Size (cm) - Width 0.2 -Current Size (cm) - Depth 0.3 -Total Square Cm 0.08 -Photo Taken No -Exudate Amt Small -Wound Margin Distinct, Outline Attached -Granulation Amt Small (1-33%) -Granulation Quality [place] -Necrosis Amt Small (1-33%) -Necrotic Tissue Type Adherent Slough -Structure Exposed N/A -Texture (Dot-wound Skin Appearance) Scarring -Moisture (Dot-wound Skin Appearance No Abnormality ) -Color (Dot-wound Skin Appearance) No Abnormality -Temperature (Dot-wound Skin No Abnormality Appearance) (Pt Warm) -Tenderness on Palpation (Dot-wound No Skin Appearance) -Ulcer Cleansing Wound Cleanser -Foul Odor after Cleansing No -Anesthetic Used 5% Lidocaine Gel WC - Nurse 2 - General Ulcer CM Notes Start: 01/29/21 09:05 Freq: Status: Active Protocol: Activity Type Activity Date Activity User E-Sign Co-Sign Detail Recorded Client Recorded Date Recorded By Document 02/12/21 09:16 RICHI [id number] 02/12/21 09:31 RICHI 02/12/21 09:16 Wound Center Nurse 2 [Procedure/Treatment] #3 4th lateral toe/amp site -Time 09:21 -Correct Patient Yes -Correct Side, Site, Position Yes -Correct Procedure Yes -Procedure Performed Yes -Type of Procedure Debridement -Clinical Debridement Subcutaneous -Tissue Removed Subcutaneous -Post Debridement (cm) - Length 1.9 -Post Debridement (cm) - Width 0.9 -Post Debridement (cm) - Depth 0.9 -Total Square (Post) (cm) 1.71 -Area of Debridement (cm) - Length 1.9 -Area of Debridement (cm) - Width 0.9 -Total Square (Area) (cm) 1.71 -Tunneling No -Undermining/Tunneling No -Circular Undermining No -Wound/Ulcer Outcome Not Healed -Ulcer Cleansing Rinsed/ Irrigated with Saline -Foul Odor after Cleansing No -Bioengineered Tissue No -Bleeding Controlled with Pressure -Offloading Yes -Type of Offloading Surgical Shoe -Treatment Response Procedure Tolerated Well -Debridement - Subq, 1st 20sq cm No #2 L 5th toe AMP site -Time 09:22 -Correct Patient Yes -Correct Side, Site, Position Yes -Correct Procedure Yes -Procedure Performed Yes -Type of Procedure Debridement -Clinical Debridement Subcutaneous -Tissue Removed Subcutaneous -Post Debridement (cm) - Length 0.9 -Post Debridement (cm) - Width 0.7 -Post Debridement (cm) - Depth 0.1 -Total Square (Post) (cm) 0.63 -Area of Debridement (cm) - Length 0.9 -Area of Debridement (cm) - Width 0.7 -Total Square (Area) (cm) 0.63 -Tunneling No -Undermining/Tunneling No -Circular Undermining No -Wound/Ulcer Outcome Not Healed -Ulcer Cleansing Rinsed/ Irrigated with Saline -Foul Odor after Cleansing No -Bioengineered Tissue No -Bleeding Controlled with Pressure -Offloading Yes -Type of Offloading Surgical Shoe -Treatment Response Procedure Tolerated Well -Debridement - Subq, 1st 20sq cm No #1 L Grt Toe -Time 09:22 -Correct Patient Yes -Correct Side, Site, Position Yes -Correct Procedure Yes -Procedure Performed Yes -Type of Procedure Debridement -Clinical Debridement Subcutaneous -Tissue Removed Subcutaneous -Post Debridement (cm) - Length 0.3 -Post Debridement (cm) - Width 0.3 -Post Debridement (cm) - Depth 0.2 -Total Square (Post) (cm) 0.09 -Area of Debridement (cm) - Length 0.3 -Area of Debridement (cm) - Width 0.3 -Total Square (Area) (cm) 0.09 -Tunneling No -Undermining/Tunneling No -Circular Undermining No -Wound/Ulcer Outcome Not Healed -Ulcer Cleansing Rinsed/ Irrigated with Saline -Foul Odor after Cleansing No -Bioengineered Tissue No -Bleeding Controlled with Pressure -Offloading Yes -Type of Offloading Surgical Shoe -Treatment Response Procedure Tolerated Well -Debridement - Subq, 1st 20sq cm Yes [See Physician Procedure note for Specifics] Pain Scale: 0-10 Numeric [Pain] -Is Patient Pain Free? Yes Additional Wound Wound debrided: Fifth digit amputation site Laterality: Left Wound Grade/Stage: Luciano 2 Type of Debridement: Excisional debridement Anesthesia Used: 5% Lidocaine Gel Depth: to bone (Debrided to subcu) Percentage of wound debrided: 100 Instrument Used: 3mm curette Tissue Removed: Includes fibrous, devitalized, biofilm, callus and slough tissue Severity: Fat Layer Exposed (Fifth metatarsal head easily visualized) Amount of bleeding with debridement: Mild Bleeding Controlled with: Pressure Patient tolerated procedure: Patient tolerated procedure well Assessment/Plan Assessment/Plan (1) Non-pressure chronic ulcer of other part of left foot with fat layer exposed: CODE(S): L97.522 - Non-pressure chronic ulcer of other part of left foot with fat layer exposed (2) PAD (peripheral artery disease): CODE(S): I73.9 - Peripheral vascular disease, unspecified (3) Type 2 diabetes mellitus: CODE(S): E11.9 - Type 2 diabetes mellitus without complications QUALIFIERS: Diabetes mellitus complication detail: with peripheral angiopathy with gangrene Diabetes mellitus complication status: with circulatory complication Diabetes mellitus intermediate card tender insulin use: unspecified intermediate card tender insulin use status Qualified Code(s): E11.52 - Type 2 diabetes mellitus with diabetic peripheral angiopathy with gangrene (4) Osteomyelitis: CODE(S): M86.9 - Osteomyelitis, unspecified QUALIFIERS: Laterality: left Osteomyelitis location: foot Osteomyelitis type: subacute Qualified Code(s): M86.272 - Subacute osteomyelitis, left ankle and foot (5) Amputated toe: CODE(S): S98.139A - Complete traumatic amputation of one unspecified lesser toe, initial encounter QUALIFIERS: Laterality: left Qualified Code(s): S98.132A - Complete traumatic amputation of one left lesser toe, initial encounter (6) History of tobacco abuse: CODE(S): Z87.891 - Personal history of nicotine dependence (7) Foot pain, left: CODE(S): M79.672 - Pain in left foot (8) Delayed wound healing: CODE(S): T14.8XXD - Other injury of unspecified body region, subsequent encounter (9) Ulcer of left foot with bone involvement without evidence of necrosis: CODE(S): L97.526 - 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 without evidence of necrosis (10) Cellulitis of left foot: CODE(S): L03.116 - Cellulitis of left lower limb PLAN: Patient seen and examined with granddaughter present. She is noted to have increase in swelling with more changes consistent with poor vascular status. Patient is noted to have appointment with Dr. Nicholson on February 28. Lateral forefoot is noted to be erythematous unchanged infection versus poor v ascular status as cause. Patient noted to be on Levaquin. Patient had cultures obtained 02/05/2021 demonstrating Pseudomonas. Discussed possibility of colonization with Pseudomonas with patient and family members. Patient has had Pseudomonas consistently on her wound cultures for the last several months with multiple rounds of treatment. Discussed with Dr. Skaggs as well. There is also concern for PVD again as patient relates that she is having pain in her calf as well as experiencing relief with dangling of her foot over the side of the bed at night. Discussed that this is important as there does seem to be a vascular component to her delayed wound healing again even though she has had multiple interventions already. Discussed with her that sometimes these interventions need to be repeated. Discussed difficulty of healing if not having adequate blood flow. Patient is status post left fifth digit amputation with application of amnio fix graft, attempted delayed primary closure fourth digit amputation site, debridement of hallux ulceration with Dr. López on 01/03/2021. OR pathology of fifth digit showed acute osteomyelitis. Post lavage cultures obtained at surgery demonstrated very rare Pseudomonas. Patient is noted to have had this bacteria noted in previous cultures with possibility of colonization. It is noted that the fourth digit attempted delayed primary closure was not successful and ulceration remains. Cultures were taken of the lateral forefoot ulcerations. Patient was started on levofloxacin based on previous cultures of Pseudomonas. Discussed case with Dr. Villalobos who agreed with daily levo floxacillin treatment. Every other day Aquacel silver dressing changes to ulceration sites covered with dry sterile dressing. To wash with soap and water prior. Patient is noted to have home health care. After verbal consent was obtained sharp excisional debridement of all ulceration sites was carried out Patient noted to have peripheral vascular disease. Patient has been seeing Dr. Nicholson for management of this. Patient had intervention on 06/12/2020 with some regression of her vascular status noted. Patient had intervention again on 10/11/2020 this was performed at [facility]. Patient noted to have had a left iliofemoral profunda endorterectomy with patch angioplasty, balloon angioplasty of femororal popliteal artery as well as peroneal artery. Patient has another appointment with Dr. Nicholson upcoming. Patient is reexperiencing poor vascular status symptoms Reviewed proper wound care with patient. Discussed with the patient the importance of offloading the sites with wide enough shoe gear if she is to be wearing shoes, proper diet, good blood sugar control. Patient has used Darci in the past nutritional supplementation. She continues to use this twice a day. Patient was offered nutritional counseling with a paid search manager. Patient has offloading surgical shoe. Discussed with the patient all concerning signs and symptoms to watch out for and to contact office if he either presents. Application for TheraSkin skin graft is approved but there is a portion that patient has cover [id number]. Patient will discuss with family if this is doable if she wants to proceed with this she will let us know. Resubmitted to see if her [id number] cost is changed since previous submission. Patient is noted to still be responsible for $325 per application. This is not doable per patient. Also discussed at length possibility of trying to get HBO therapy covered for patient. We will have to reassess chart in order to see if patient would qualify. Patient is wanting to try anything to get her foot to heal. Patient is noted to have failed multiple other modalities with very few left available to her 1 of which is HBO that has not been tried yet. She has failed regular debridements and wound care, amnio fix grafting and surgical amputations and debridements, multiple interventions with vascular surgeon, etc. This has been denied. Patient is to follow-up in 1 week. This note was generated with [employer] dictation software. It may contain incorrect words, spelling, and punctuation that were not noted in checking the note before signing.
[2021-02-12 09:10] VITALS: BP 172/63; PULSE 69; RESP 18; TEMP 35.7; BMI 23.5
--- NOTE | 2021-02-19 09:03 | PCM.WC.PN ---
History of Present Illness Date of Service: 02/19/21 Chief Complaint: Left foot first digit ulceration Left fourth and fifth digit amputation site ulceration PAD History of Wound: Patient had intervention done by Dr. Nicholson on 06/12/2020. Patient saw Dr. Tenorio June 26, 2020 and was started on 100mg gabapentin TID. She has noticed some improvement in her pain. Patient had further intervention with Dr. Nicholson on October 11, 2020. Patient relates having to be transferred to [facility] for this. 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 Amputation of 4th digit with debridement of 1st and 5th digit ulcerations was performed 07/08/20. 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 Patient underwent left fifth digit amputation with attempted delayed closure of fourth digit amputation site ulceration and with application of amnio fix grafting to all sites by Dr. López on 01/03/2021. The attempt for delayed primary closure of the previous fourth digit amputation site ulceration was not successful and ulceration here remains. 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 Patient is noted to have return of vascular symptom complaints especially to left lower extremity. She has appointment with Dr. Nicholson for reassessment with the understanding she might need possible further intervention. Patient continues care at the wound care center for remaining left foot wounds Progress of Wound: Stable Subjective Subjective Patient seen and examined resting comfortably. Patient denies any new pedal complaints. Patient denies any nausea, fever, chills, chest pain, shortness of breath, cough, streaking, purulence, vomiting. Patient still has complaints of resting calf pain consistent with poor vascular status. Objective Data Objective Data Vital Signs: Vital Signs Temp Pulse Resp BP 96.2 F L 69 18 172/63 H 02/12/21 09:10 02/12/21 09:10 02/12/21 09:10 02/12/21 09:10 Weight: 149 kg Body Mass Index (BMI) 23.5 Lab / Micro Data Micro: Microbiology 02/05/21 Unknown Wound Abcess - Left Foot Gram Stain - Final 02/05/21 Unknown Wound Abcess - Left Foot Wound Culture - Final Pseudomonas aeroginosa 02/05/21 Unknown Wound Abcess - Left Foot Anaerobic Culture - Final No anaerobic bacteria isolated. Physical Exam Narrative Const alert and no apparent distress General Appearance: cooperative and comfortable Lymph Lymphatic: no lymphedema noted Resp normal respiratory effort Effort and Inspection: able to speak in complete sentences Extremity no calf tenderness, negative gume and sainz sign General Extremity: no tenderness to palpation of joints or extremities; Negative for clubbing or cyanosis or ecchymosis or erythema Vasc Left foot peripheral Pulses: Posterior tibial pulse and dorsalis pedis pulses were nonpalpable and monophasic on Doppler. Capillary fill time greater than 3 seconds to all remaining digits left foot. Edema noted to left lower extremity Skin General Skin Exam: dry skin and venous stasis, decreased hair growth noted; Negative for ecchymosis, eschar, pallor. Wound Narrative: ulcers noted to left first toe and fourth and fifth amputation site. Fifth toe amputation site ulceration probes to metatarsal head. Incision to left fifth digit amputation has dehisced with exposure of the fifth metatarsal head noted. The metatarsal head bone is exposed. There is surrounding erythema and edema to lateral forefoot which appears vascular in nature. There is serosanguineous drainage noted. No purulence. Skin is atrophic and hairless dry and flaky. Fourth digit amputation site does not probes to bone and there is fibrotic and granulation tissue noted. Skin is taunt, shiny, thin and atrophic. To level of fat Granular base noted to first digit and fourth digit amputation site. Medial left hallux ulceration. No erythema, edema, malodor, drainage, probing. To the level of fascia. Granular fibrotic base. Increased lower extremity edema noted, especially to medial ankle. Normal skin temperature remains. Foot is warm, but symptoms are concerning for vascular change. There is some increasing rubor noted to entire lower extremity. Negative Gume and Sainz sign Neuro Gait (Neuro): heel to toe Sensory Exam: extremities light-touch: decreased MSK Motor Exam: strength 5/5 throughout, ROM to foot and ankle joints within normal limits Psych Appearance: appropriate Attitude: calm Debridement Note Debridement Note Wound debrided: Hallux and fourth digit amputation site Laterality: Left Wound Grade/Stage: Luciano 1 Type of Debridement: Excisional debridement Anesthesia Used: 5% Lidocaine Gel Depth: in the subcutaneous layer Percentage of wound debrided: 100 Instrument Used: 3mm curette Tissue Removed: includes fibrous, devitalized, biofilm, callus and slough tissue Severity: Fat Layer Exposed Amount of bleeding with debridement: Mild Bleeding Controlled with: Pressure Patient tolerated procedure: Patient tolerated procedure well Post-Debridement Measurements and Additional Note: Wound Measurements and Assessment WC - Nurse 1 - General Ulcer Measurement Start: 01/29/21 09:05 Freq: Status: Active Protocol: Activity Type Activity Date Activity User E-Sign Co-Sign Detail Recorded Client Recorded Date Recorded By Document 02/19/21 09:19 [facility] Desktop 02/19/21 09:34 [facility] 02/19/21 09:19 Wound Center Nurse 1 [Ulcer Assessment] #3 4th lateral toe/amp site -Combined with other wound No -Current Size (cm) - Length 1.7 -Current Size (cm) - Width 0.9 -Current Size (cm) - Depth 0.6 -Total Square Cm 1.53 -Date of Last Picture (Recall this 02/19/21 field) -Photo Taken Yes -Epithelialization Small 1-33% -Tunneling No -Undermining/Tunneling No -Circular Undermining No -Exudate Amt Medium -Exudate Type Serosanguineous -Wound Margin Distinct, Outline Attached -Granulation Amt Medium (34-66%) -Granulation Quality Red -Slough/Fibrin Yes -Necrosis Amt Medium (34-66%) -Necrotic Tissue Type Adherent Slough -Texture (Dot-wound Skin Appearance) Assessed, Scarring -Moisture (Dot-wound Skin Appearance Assessed ) -Color (Dot-wound Skin Appearance) Assessed, Erythema -Temperature (Dot-wound Skin No Abnormality Appearance) (Pt Warm) -Tenderness on Palpation (Dot-wound Yes Skin Appearance) -Ulcer Cleansing Soap and Water -Foul Odor after Cleansing No -Anesthetic Used 5% Lidocaine Gel #2 L 5th toe AMP site -Combined with other wound No -Current Size (cm) - Length 1 -Current Size (cm) - Width 1.4 -Current Size (cm) - Depth 0.4 -Total Square Cm 1.4 -Date of Last Picture (Recall this 02/19/21 field) -Photo Taken Yes -Epithelialization None Present -Tunneling No -Undermining/Tunneling No -Circular Undermining No -Exudate Amt Medium -Exudate Type Serosanguineous -Wound Margin Distinct, Outline Attached -Granulation Amt Medium (34-66%) -Granulation Quality Red -Slough/Fibrin Yes -Necrosis Amt Medium (34-66%) -Necrotic Tissue Type Adherent Slough -Texture (Dot-wound Skin Appearance) Assessed, Localized Edema ,Scarring -Moisture (Dot-wound Skin Appearance Assessed ) -Color (Dot-wound Skin Appearance) Assessed, Erythema -Temperature (Odt-wound Skin No Abnormality Appearance) (Pt Warm) -Tenderness on Palpation (Dot-wound Yes Skin Appearance) -Ulcer Cleansing Soap and Water -Foul Odor after Cleansing No -Anesthetic Used 5% Lidocaine Gel #1 L Grt Toe -Combined with other wound No -Current Size (cm) - Length 0.5 -Current Size (cm) - Width 0.3 -Current Size (cm) - Depth 0.2 -Total Square Cm 0.15 -Date of Last Picture (Recall this 02/19/21 field) -Photo Taken Yes -Epithelialization None Present -Tunneling No -Undermining/Tunneling No -Circular Undermining No -Exudate Amt Medium -Exudate Type Serosanguineous -Wound Margin Distinct, Outline Attached -Granulation Amt None Present (0 %) -Slough/Fibrin Yes -Necrosis Amt Large (67-100%) -Necrotic Tissue Type Adherent Slough -Texture (Dot-wound Skin Appearance) Assessed, Scarring -Moisture (Dot-wound Skin Appearance Assessed ) -Color (Dot-wound Skin Appearance) Assessed -Temperature (Dot-wound Skin No Abnormality Appearance) (Pt Warm) -Tenderness on Palpation (Dot-wound Yes Skin Appearance) -Ulcer Cleansing Soap and Water -Foul Odor after Cleansing No -Anesthetic Used 5% Lidocaine Gel WC - Nurse 2 - General Ulcer CM Notes Start: 01/29/21 09:05 Freq: Status: Active Protocol: Activity Type Activity Date Activity User E-Sign Co-Sign Detail Recorded Client Recorded Date Recorded By Document 02/19/21 09:43 RICHI [id number] 02/19/21 09:49 [facility] 02/19/21 09:43 Wound Center Nurse 2 [Procedure/Treatment] #3 4th lateral toe/amp site -Time 09:45 -Correct Patient Yes -Correct Side, Site, Position Yes -Correct Procedure Yes -Procedure Performed Yes -Type of Procedure Debridement -Clinical Debridement Subcutaneous -Tissue Removed Subcutaneous -Post Debridement (cm) - Length 2.1 -Post Debridement (cm) - Width 1 -Post Debridement (cm) - Depth 0.6 -Total Square (Post) (cm) 2.1 -Area of Debridement (cm) - Length 2.1 -Area of Debridement (cm) - Width 1 -Total Square (Area) (cm) 2.1 -Tunneling No -Undermining/Tunneling No -Circular Undermining No -Wound/Ulcer Outcome Not Healed -Ulcer Cleansing Rinsed/ Irrigated with Saline -Foul Odor after Cleansing No -Bioengineered Tissue No -Bleeding Controlled with Pressure -Offloading Yes -Type of Offloading Surgical Shoe -Treatment Response Procedure Tolerated Well -Debridement - Subq, 1st 20sq cm No #2 L 5th toe AMP site -Time 09:47 -Correct Patient Yes -Correct Side, Site, Position Yes -Correct Procedure Yes -Procedure Performed Yes -Type of Procedure Debridement -Clinical Debridement Subcutaneous -Tissue Removed Subcutaneous -Post Debridement (cm) - Length 1.1 -Post Debridement (cm) - Width 1 -Post Debridement (cm) - Depth 0.2 -Total Square (Post) (cm) 1.1 -Area of Debridement (cm) - Length 1.1 -Area of Debridement (cm) - Width 1 -Total Square (Area) (cm) 1.1 -Tunneling No -Undermining/Tunneling No -Circular Undermining No -Wound/Ulcer Outcome Not Healed -Ulcer Cleansing Rinsed/ Irrigated with Saline -Foul Odor after Cleansing No -Bioengineered Tissue No -Bleeding Controlled with Pressure -Offloading Yes -Type of Offloading Surgical Shoe -Treatment Response Procedure Tolerated Well -Debridement - Subq, 1st 20sq cm No #1 L Grt Toe -Time 09:43 -Correct Patient Yes -Correct Side, Site, Position Yes -Correct Procedure Yes -Procedure Performed Yes -Type of Procedure Debridement -Clinical Debridement Subcutaneous -Tissue Removed Subcutaneous -Post Debridement (cm) - Length 0.3 -Post Debridement (cm) - Width 0.2 -Post Debridement (cm) - Depth 0.1 -Total Square (Post) (cm) 0.06 -Area of Debridement (cm) - Length 0.3 -Area of Debridement (cm) - Width 0.2 -Total Square (Area) (cm) 0.06 -Tunneling No -Undermining/Tunneling No -Circular Undermining No -Wound/Ulcer Outcome Not Healed -Ulcer Cleansing Rinsed/ Irrigated with Saline -Foul Odor after Cleansing No -Bioengineered Tissue No -Bleeding Controlled with Pressure -Offloading Yes -Type of Offloading Surgical Shoe -Treatment Response Procedure Tolerated Well -Debridement - Subq, 1st 20sq cm Yes [See Physician Procedure note for Specifics] Pain Scale: 0-10 Numeric [Pain] -Is Patient Pain Free? Yes Additional Wound Wound debrided: Fifth digit amputation site Laterality: Left Wound Grade/Stage: Luciano 2 Type of Debridement: Excisional debridement Anesthesia Used: 5% Lidocaine Gel Depth: to bone (Debrided to subcu) Percentage of wound debrided: 100 Instrument Used: 3mm curette Tissue Removed: Includes fibrous, devitalized, biofilm, callus and slough tissue Severity: Necrosis of Bone (Debrided to subcu) Amount of bleeding with debridement: Mild Bleeding Controlled with: Pressure Patient tolerated procedure: Patient tolerated procedure well Assessment/Plan Assessment/Plan (1) Non-pressure chronic ulcer of other part of left foot with fat layer exposed: CODE(S): L97.522 - Non-pressure chronic ulcer of other part of left foot with fat layer exposed (2) PAD (peripheral artery disease): CODE(S): I73.9 - Peripheral vascular disease, unspecified (3) Type 2 diabetes mellitus: CODE(S): E11.9 - Type 2 diabetes mellitus without complications QUALIFIERS: Diabetes mellitus complication detail: with peripheral angiopathy with gangrene Diabetes mellitus complication status: with circulatory complication Diabetes mellitus intermediate designer insulin use: unspecified custodial insulin use status Qualified Code(s): E11.52 - Type 2 diabetes mellitus with diabetic peripheral angiopathy with gangrene (4) Osteomyelitis: CODE(S): M86.9 - Osteomyelitis, unspecified QUALIFIERS: Laterality: left Osteomyelitis location: foot Osteomyelitis type: subacute Qualified Code(s): M86.272 - Subacute osteomyelitis, left ankle and foot (5) Amputated toe: CODE(S): S98.139A - Complete traumatic amputation of one unspecified lesser toe, initial encounter QUALIFIERS: Laterality: left Qualified Code(s): S98.132A - Complete traumatic amputation of one left lesser toe, initial encounter (6) History of tobacco abuse: CODE(S): Z87.891 - Personal history of nicotine dependence (7) Foot pain, left: CODE(S): M79.672 - Pain in left foot (8) Delayed wound healing: CODE(S): T14.8XXD - Other injury of unspecified body region, subsequent encounter (9) Ulcer of left foot with bone involvement without evidence of necrosis: CODE(S): L97.526 - 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 without evidence of necrosis (10) Cellulitis of left foot: CODE(S): L03.116 - Cellulitis of left lower limb PLAN: Patient seen and examined with granddaughter present. She is noted to have increase in swelling with more changes consistent with poor vascular status. Patient is noted to have appointment with Dr. Nicholson next week Lateral forefoot is noted to be erythematous unchanged infection versus poor vascular status as cause. Patient noted to be on Levaquin. Patient had cultures obtained 02/05/2021 demonstrating Pseudomonas. Discussed possibility of colonization with Pseudomonas with patient and family members. Patient has had Pseudomonas consistently on her wound cultures for the last several months with multiple rounds of treatment. Discussed with Dr. Skaggs as well. There is also concern for PVD again as patient relates that she is having pain in her calf as well as experiencing relief with dangling of her foot over the side of the bed at night. Discussed that this is important as there does seem to be a vascular component to her delayed wound healing again even though she has had multiple interventions already. Discussed with her that sometimes these interventions need to be repeated. Discussed difficulty of healing if not having adequate blood flow. I was unable to palpate her pulses today which were monophasic DP and PT on Doppler exam. Patient is status post left fifth digit amputation with application of amnio fix graft, attempted delayed primary closure fourth digit amputation site, debridement of hallux ulceration with Dr. López on 01/03/2021. OR pathology of fifth digit showed acute osteomyelitis. Post lavage cultures obtained at surgery demonstrated very rare Pseudomonas. Patient is noted to have had this bacteria noted in previous cultures with possibility of colonization. It is noted that the fourth digit attempted delayed primary closure was not successful and ulceration remains. Every other day Aquacel silver dressing changes to ulceration sites covered with dry sterile dressing. To wash with soap and water prior. Patient is noted to have home health care. After verbal consent was obtained sharp excisional debridement of all ulceration sites was carried out. This was done lightly due to concern for vascular status as well as because of amount of patient pain Patient noted to have peripheral vascular disease. Patient has been seeing Dr. Nicholson for management of this. Patient had intervention on 06/12/2020 with some regression of her vascular status noted. Patient had intervention again on 10/11/2020 this was performed at [facility]. Patient noted to have had a left iliofemoral profunda endorterectomy with patch angioplasty, balloon angioplasty of femororal popliteal artery as well as peroneal artery. Patient has another appointment with Dr. Nicholson upcoming. Patient is reexperiencing poor vascular status symptoms Reviewed proper wound care with patient. Discussed with the patient the importance of offloading the sites with wide enough shoe gear if she is to be wearing shoes, proper diet, good blood sugar control. Patient has used Darci in the past nutritional supplementation. She continues to use this twice a day. Patient was offered nutritional counseling with a movement assembly final inspector. Patient has offloading surgical shoe. Discussed with the patient all concerning signs and symptoms to watch out for and to contact office if he either presents. Application for TheraSkin skin graft is approved but there is a portion that patient has cover [id number]. Patient will discuss with family if this is doable if she wants to proceed with this she will let us know. Resubmitted to see if her [id number] cost is changed since previous submission. Patient is noted to still be responsible for $325 per application. This is not doable per patient. Patient and family may reconsider pending vascular results with Dr. Nicholson next week. Also discussed at length possibility of trying to get HBO therapy covered for patient. We will have to reassess chart in order to see if patient would qualify. Patient is wanting to try anything to get her foot to heal. Patient is noted to have failed multiple other modalities with very few left available to her 1 of which is HBO that has not been tried yet. She has failed regular debridements and wound care, amnio fix grafting and surgical amputations and debridements, multiple interventions with vascular surgeon, etc. This has been denied. Patient is to follow-up in 1 week for nurses visit and 2 weeks with myself after returning from vacation This note was generated with [employer] dictation software. It may contain incorrect words, spelling, and punctuation that were not noted in checking the note before signing.
[2021-02-19 09:19] VITALS: BP 156/54; PULSE 81; RESP 16; TEMP 36.2; BMI 23.5
== END 2021-02-21 23:59 ==
LOC: WC 09:15
PROVIDERS: PCP Family Medicine; Referring Provider Podiatrist; Visit Provider Podiatrist Foot & Ankle Surgery
DX: E11.621 Type 2 diabetes mellitus with foot ulcer (principal); L97.522 Non-pressure chronic ulcer of other part of left foot with fat layer exposed; E11.51 Type 2 diabetes mellitus with diabetic peripheral angiopathy without gangrene; M86.272 Subacute osteomyelitis, left ankle and foot; Z89.422 Acquired absence of other left toe(s); Z87.891 Personal history of nicotine dependence; Z79.4 Long term (current) use of insulin; E11.69 Type 2 diabetes mellitus with other specified complication; Z71.3 Dietary counseling and surveillance; L03.116 Cellulitis of left lower limb; L97.526 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 without evidence of necrosis; S98.132A Complete traumatic amputation of one left lesser toe, initial encounter
CPT/HCPCS: 11042; 87070; 87075; 87077; 87186; 87205; 87640

== ENCOUNTER → 2021-03-11 12:45 | Outpatient (CLI) | payer MEDICARE, SELFPAY ==
[2020-11-22 00:21] VITALS: BMI 23.5
--- NOTE | 2021-03-11 12:51 | ADUL_ITS ---
Reason For Study: stricture of artery Left Velocities Ext Iliac Artery, dist = 119.8 cm./sec. Common Femoral Artery, mid = 83.3 cm./sec. Supf. Femoral Artery, prox = 522.1 cm./sec. Supf. Femoral Artery, mid = 160.4 cm./sec. Supf. Femoral Artery, dist = 49.9 cm./sec. Profunda Femoral Artery = 349.8 cm./sec. Popliteal Artery, mid = 60.9 cm./sec. Post. Tibial Artery, prox = 27.8 cm./sec. Post Tibial Artery, mid = 69.5 cm./sec. Post Tibial Artery, dist. = 31.4 cm./sec. Peroneal Artery, prox = 57.2 cm./sec. Peroneal Artery, mid = 53.5 cm./sec. Peroneal Artery,dist. = 43.7 cm./sec. Ant.Tibial Artery, prox = 43.7 cm./sec. Ant Tibial Artery, mid = 67.0 cm./sec. Ant. Tibial Artery, distal = 33.9 cm./sec. Procedure The exam was diagnostic. Exam performed in department. VL/US Art Duplex Unilat Lower Ext Interpretation Summary Small left SFA with severe stenosis of with a velocity of 522. Ordering Physician: Pablo Nicholson Performed By: Juan Oneal RVT
--- NOTE | 2021-03-11 12:51 | ART_ITS ---
Reason For Study: stricture of artery Procedure A bilateral lower extremity continuous wave Doppler with analog waveform analysis and ankle brachial indexes. Left Segmental Pressures Left brachial= 158mmHg. Left posterior tibial artery = 63mmHg. Left dorsalis pedis artery = 213mmHg. No left toe pressure due to absent PPG waveform on the Great Toe. The left dorsalis pedis waveforms are monophasic. The left posterior tibial artery waveforms are monophasic. Right Segmental Pressures Right brachial= 111mmHg. Right posterior tibial artery = 104mmHg. Right dorsalis pedis artery = 142mmHg. Right digit = 30 mmHg. The right dorsalis pedis waveforms are monophasic. Indices The right ankle brachial index by the dorsalis pedis is .9. The right ankle brachial index by the posterior tibial artery is .66. The right digital-brachial index is .19. The left ankle brachial index by the posterior tibial artery is .4. The left dorsalis pedis index post exercise is 1.35. VL/Ankle Brachial Index Interpretation Summary Right leg with moderate occlusive disease with more biphasic flow noted. JENY is 0.9 and 0.66. Small vessel disease with a digit brachial index 0.19. Left leg more moderate occlusi ve disease with monophasic flow noted. JENY 0.4 the posterior tibial and 1.35 to the dorsalis pe dis which is probably falsely elevated. Ordering Physician: Pablo Nicholson Performed By: Juan Oneal RVT
== END ==
PROVIDERS: PCP Family Medicine; Referring Provider Surgery Vascular Surgery; Visit Provider Surgery Vascular Surgery
DX: I70.213 Atherosclerosis of native arteries of extremities with intermittent claudication, bilateral legs (principal); I77.1 Stricture of artery; M79.675 Pain in left toe(s); I25.10 Atherosclerotic heart disease of native coronary artery without angina pectoris; I10 Essential (primary) hypertension; E11.9 Type 2 diabetes mellitus without complications
CPT/HCPCS: 93922; 93926

== ENCOUNTER 2021-03-20 09:15 | Outpatient (RCR) | payer MEDICARE, SELFPAY ==
[2021-02-22 00:24] VITALS: BP 156/54; PULSE 81; RESP 16; TEMP 36.2; BMI 23.5
[2021-02-26 11:55] VITALS: BP 106/75; PULSE 75; RESP 16; TEMP 35.9; BMI 23.5
[2021-03-05 09:04] VITALS: BP 155/36; PULSE 63; RESP 16; TEMP 35.9; BMI 23.5
--- NOTE | 2021-03-05 09:38 | BONBX_PTH ---
PATIENT: GENTRY COBB LOC: U#:[id number] AGE/SX: 85/F ROOM: RE03/20/[address]: SHANIQUE Pratt : 1935 BED: DIS: 03/24/2021 SPEC #: [id number] RECD: 03/05/21 10:01 STATUS: MARY RENubia #: [id number] ROHINI: 03/05/21 09:[address]: Milly López DEPT: SURGICAL PATHOLOGY RECD BY: Love Luciano ENTERED: 03/05/21 10:40 SP TYPE: Bone OTHR DR: MD Dr. Mati Alves, DPM Tissues: Bone of foot, NOS Procedures: Decalcification bone/plaque Surgery Specimen Level IV HEADER OPERATION: Bone excision from left foot ulcer PRE-OP DIAGNOSIS: Nonhealing ulcer, osteomyelitis TISSUE SUBMITTED: Bone biopsy left foot ulcer fifth metatarsal MICROSCOPIC DIAGNOSIS Left foot ulcer bone, biopsy: Fragments of bone with acute osteomyelitis. Adherent fragments tissue with acute and chronic inflammation and granulation tissue reaction. SANDY:jenn 03/06/2021 MICROSCOPIC DESCRIPTION Slides are reviewed. GROSS DESCRIPTION Received in fixative is one container labeled with the patient's name and designated left foot ulcer bone. The specimen consists of a fragment of bone measuring 0.3 x 0.1 x 0.1 cm. The entire specimen is submitted in one cassette after decalcification. / SANDY:jenn 03/05/21 TC:2 CPT: 98232, 30224
--- NOTE | 2021-03-05 11:50 | PN.PCM_ITS ---
History of Present Illness Date of Service: 03/05/21 Chief Complaint: Left foot first digit ulceration Left fourth and fifth digit amputation site ulceration PAD History of Wound: Patient had intervention done by Dr. Nicholson on 06/12/2020. Patient saw Dr. Tenorio June 26, 2020 and was started on 100mg gabapentin TID. She has noticed some improvement in her pain. Patient had further intervention with Dr. Nicholson on October 11, 2020. Patient relates having to be transferred to [facility] for this. 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 Amputation of 4th digit with debridement of 1st and 5th digit ulcerations was performed 07/08/20. 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 Patient underwent left fifth digit amputation with attempted delayed closure of fourth digit amputation site ulceration and with application of amnio fix grafting to all sites by Dr. López on 01/03/2021. The attempt for delayed primary closure of the previous fourth digit amputation site ulceration was not successful and ulceration here remains. Cultures at this time are also positive for Pseudomonas. 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 Cultures from 02/05/2021 were also positive for Pseudomonas. Patient has had multiple rounds of antibiotics and consultation with infectious disease over this infection. Patient is noted to have return of vascular symptom complaints especially to left lower extremity. She has appointment with Dr. Nicholson for reassessment with the understanding she might need possible further intervention. Patient continues care at the wound care center for remaining left foot wounds. Patient is noted to have been approved for [employer] but was not fully covered and would not be able to cover the remaining financial expense. Patient has had other modalities of treatment to include HBO therapy. Progress of Wound: Largely unchanged Subjective Subjective Patient seen and examined resting comfortably. Patient denies any new pedal complaints. Patient denies any nausea, fever, chills, chest pain, shortness of breath, cough, streaking, purulence, vomiting. Objective Data Objective Data Vital Signs: Vital Signs Temp Pulse Resp BP 96.6 F L 63 16 155/36 H 03/05/21 09:04 03/05/21 09:04 03/05/21 09:04 03/05/21 09:04 Oxygen Delivery Method Room Air Weight: 149 kg Body Mass Index (BMI) 23.5 Physical Exam Narrative Const alert and no apparent distress, patient expresses depression over her condition with expressions such as giving up and wanting this to be over and don't know how much longer I can do this General Appearance: cooperative and comfortable Lymph Lymphatic: no lymphedema noted Resp normal respiratory effort Effort and Inspection: able to speak in complete sentences Extremity no calf tenderness, negative gume and sianz sign General Extremity: no tenderness to palpation of joints or extremities; Negative for clubbing or cyanosis or ecchymosis Vasc Left foot peripheral Pulses: Posterior tibial pulse and dorsalis pedis pulses were nonpalpable and monophasic on Doppler. Capillary fill time greater than 3 seconds to all remaining digits left foot. Edema noted to left lower extremity Skin General Skin Exam: dry skin and venous stasis, decreased hair growth noted; Negative for ecchymosis, eschar, pallor. Wound Narrative: ulcers noted to left first toe and fourth and fifth amputation site. Fifth toe amputation site ulceration has easily exposed metatarsal head. Incision to left fifth digit amputation has dehisced with exposure of the fifth metatarsal head noted. The metatarsal head bone is exposed. There is surrounding erythema and edema to lateral forefoot which appears vascular in nature. There is serosanguineous drainage noted. No purulence. No malodor Skin is atrophic and hairless dry and flaky. Fourth digit amputation site does not probes to bone and there is fibrotic and granulation tissue noted. Skin is taunt, shiny, thin and atrophic. To level of fat Granular base noted to first digit and fourth digit amputation site. Medial left hallux ulceration. No erythema, edema, malodor, drainage, probing. To the level of fascia. Granular fibrotic base. Increased lower extremity edema noted. Normal skin temperature remains. Foot is warm, but symptoms are concerning for vascular change. There is some increasing rubor noted to entire lower extremity. Negative Gume and Sainz sign Neuro Gait (Neuro): heel to toe Sensory Exam: extremities light-touch: decreased MSK Motor Exam: strength 5/5 throughout, ROM to foot and ankle joints within normal limits Psych Appearance: appropriate Attitude: calm Debridement Note Debridement Note Wound debrided: Fifth metatarsal head Laterality: Left Wound Grade/Stage: Luciano 3 Type of Debridement: Excisional debridement Anesthesia Used: 5% Lidocaine Gel Depth: to bone Percentage of wound debrided: 100 Instrument Used: 3mm curette and - (Rondure) Tissue Removed: includes fibrous, devitalized, biofilm, callus and slough tissue, bone Severity: Necrosis of Bone Amount of bleeding with debridement: Moderate Bleeding Controlled with: Pressure Patient tolerated procedure: Patient tolerated procedure well Post-Debridement Measurements and Additional Note: Post-Debridement Measurements/Treatment - Nurse 1 - General Ulcer Assessment Start: 02/26/21 11:54 Freq: Status: Active Protocol: ESVIN Activity Type Activity Date Activity User E-Sign Co-Sign Detail Recorded Client Recorded Date Recorded By Document 02/26/21 11:55 [id number] 02/26/21 11:58 Document 03/05/21 09:04 [facility] Desktop 03/05/21 09:11 [facility] 02/26/21 03/05/21 11:55 09:04 - Today's Visit Information Type of service Nurse-only Follow-up Visit Visit (Physician/SYSTEMS COORDINATOR ) Arrival Mode Ambulatory,Cane Ambulatory,Cane Transfer Assistance None Patient Identification Verified (Name & Yes ) Patient Requires Transmission-Based No No Precautions Height and Weight Body Mass Index (BMI) 23.5 23.5 BMI Classification Normal Normal Vital Signs Temperature (97.8 F-99.1 F) 96.6 F L 96.6 F L Temperature Source Temporal Temporal Pulse Rate (60-100) 75 63 Pulse Location Monitor Monitor Respiratory Rate (12-18) 16 16 Respiratory rate source Observation Observation Oxygen Delivery Method Room Air Blood Pressure (90/60-120/80) 106/75 155/36 H Blood Pressure Mean (mm Hg) 85 75 Source Monitor Monitor Position Sitting Sitting Blood Pressure Location Left Arm Left Arm Have you changed medications since your No last visit? Any new allergies or adverse reactions No Had a fall/change in ADL's that may No increase risk of falls Signs or symptoms of abuse and/or No neglect since last visit Have you been in the hospital since your No last visit? Has dressing in place as prescribed Yes Has compression in place as prescribed Yes Has offloadiing in place as prescribed N/A Experienced any changes in pain level or No management History Since Last Visit- (Skip if this is Patient's initial visit) Left Footwear Surgical Shoe Surgical Shoe with pressure with pressure relief insole relief insole Right Footwear Regular Shoe Regular Shoe Pain Scale: 0-10 Numeric Is Patient Pain Free? Yes Yes Michael Nurse 1 - General Ulcer Measurement Start: 02/26/21 11:54 Freq: Status: Active Protocol: Activity Type Activity Date Activity User E-Sign Co-Sign Detail Recorded Client Recorded Date Recorded By Document 02/26/21 11:55 RICHI [id number] 02/26/21 11:58 Document 03/05/21 09:04 [facility] Desktop 03/05/21 09:11 [facility] 02/26/21 03/05/21 11:55 09:04 Wound Center Nurse 1 #3 4th lateral toe/amp site -Combined with other wound No No -Current Size (cm) - Length 1.6 1.8 -Current Size (cm) - Width 0.8 0.8 -Current Size (cm) - Depth 0.5 0.5 -Total Square Cm 1.28 1.44 -Photo Taken No No -Epithelialization Small 1-33% None Present -Tunneling No No -Undermining/Tunneling No No -Circular Undermining No No -Exudate Amt Small Medium -Exudate Type Serosanguineous Serosanguineous -Wound Margin Flat & Intact Distinct, Outline Attached -Granulation Amt Medium (34-66%) Large (67-100%) -Granulation Quality Pale Red -Slough/Fibrin Yes Yes -Necrosis Amt Small (1-33%) Small (1-33%) -Necrotic Tissue Type Adherent Slough Adherent Slough -Structure Exposed N/A -Texture (Dot-wound Skin Appearance) No Abnormality Assessed, Scarring -Moisture (Dot-wound Skin Appearance) Assessed Assessed -Color (Dot-wound Skin Appearance) Assessed Assessed, Erythema -Temperature (Dot-wound Skin No Abnormality No Abnormality Appearance) (Pt Warm) (Pt Warm) -Tenderness on Palpation (Dot-wound No Yes Skin Appearance) -Ulcer Cleansing Wound Cleanser Rinsed/ Irrigated with Saline -Foul Odor after Cleansing No No -Anesthetic Used 5% Lidocaine Gel #2 L 5th toe AMP site -Combined with other wound No No -Current Size (cm) - Length 1 1 -Current Size (cm) - Width 0.8 0.6 -Current Size (cm) - Depth 0.6 0.3 -Total Square Cm 0.8 0.6 -Photo Taken No No -Epithelialization None Present None Present -Tunneling No No -Undermining/Tunneling No No -Circular Undermining No -Exudate Amt Medium Medium -Exudate Type Sanguineous Serosanguineous -Wound Margin Flat & Intact Distinct, Outline Attached -Granulation Amt Large (67-100%) Small (1-33%) -Granulation Quality Red Red -Slough/Fibrin Yes Yes -Necrosis Amt Small (1-33%) Large (67-100%) -Necrotic Tissue Type Adherent Slough Adherent Slough -Structure Exposed Bone -Texture (Dot-wound Skin Appearance) Assessed, Assessed, Localized Edema Scarring -Moisture (Dot-wound Skin Appearance) Assessed,Dry/ Assessed Scaly -Color (Dot-wound Skin Appearance) Assessed Assessed, Erythema -Temperature (Dot-wound Skin No Abnormality No Abnormality Appearance) (Pt Warm) (Pt Warm) -Tenderness on Palpation (Dot-wound No Yes Skin Appearance) -Ulcer Cleansing Wound Cleanser Rinsed/ Irrigated with Saline -Foul Odor after Cleansing No No -Anesthetic Used 5% Lidocaine Gel #1 L Grt Toe -Combined with other wound No No -Current Size (cm) - Length 0.1 0.1 -Current Size (cm) - Width 0.1 0.1 -Current Size (cm) - Depth 0.1 0.1 -Total Square Cm 0.01 0.01 -Photo Taken No No -Epithelialization Large 67-100% Large 67-100% -Tunneling No No -Undermining/Tunneling No No -Circular Undermining No No -Exudate Amt None Present None Present -Wound Margin Indistinct, Non -Visible -Granulation Amt None Present (0 %) -Slough/Fibrin Yes -Necrosis Amt Large (67-100%) -Necrotic Tissue Type Adherent Slough -Structure Exposed N/A -Texture (Dot-wound Skin Appearance) Assessed, Callus,Scarring Localized Edema -Moisture (Dot-wound Skin Appearance) Assessed,Dry/ Assessed,Dry/ Scaly Scaly -Color (Dot-wound Skin Appearance) Assessed Assessed -Temperature (Dot-wound Skin No Abnormality No Abnormality Appearance) (Pt Warm) (Pt Warm) -Tenderness on Palpation (Dot-wound No No Skin Appearance) -Ulcer Cleansing Wound Cleanser Rinsed/ Irrigated with Saline -Foul Odor after Cleansing No No -Anesthetic Used 5% Lidocaine Gel Lower Limb Edema Present Yes Yes Left Calf (cm) 30.5 Left Ankle (cm) 22 WC - Nurse 2 - General Ulcer CM Notes Start: 02/26/21 11:54 Freq: Status: Active Protocol: Activity Type Activity Date Activity User E-Sign Co-Sign Detail Recorded Client Recorded Date Recorded By Document 03/05/21 09:31 RICHI [id number] 03/05/21 09:49 [email or web address] 03/05/21 09:31 Wound Center Nurse 2 #3 4th lateral toe/amp site -Time 09:32 -Correct Patient Yes -Correct Side, Site, Position Yes -Correct Procedure Yes -Procedure Performed Yes -Type of Procedure Debridement -Clinical Debridement Muscle / Fascia -Tissue Removed Fascia -Post Debridement (cm) - Length 1.8 -Post Debridement (cm) - Width 1.9 -Post Debridement (cm) - Depth 0.8 -Total Square (Post) (cm) 3.42 -Area of Debridement (cm) - Length 1.8 -Area of Debridement (cm) - Width 1.9 -Total Square (Area) (cm) 3.42 -Tunneling No -Undermining/Tunneling No -Circular Undermining No -Wound/Ulcer Outcome Not Healed -Ulcer Cleansing Rinsed/ Irrigated with Saline -Foul Odor after Cleansing No -Bioengineered Tissue No -Bleeding Controlled with Pressure -Offloading Yes -Type of Offloading Surgical Shoe -Treatment Response Procedure Tolerated Well -Debridement - Muscle / Fascia, 1st Yes 20sq cm #2 L 5th toe AMP site -Time 09:47 -Correct Patient Yes -Correct Side, Site, Position Yes -Correct Procedure Yes -Procedure Performed Yes -Type of Procedure Debridement -Clinical Debridement Bone -Tissue Removed Fascia -Post Debridement (cm) - Length 1 -Post Debridement (cm) - Width 1 -Post Debridement (cm) - Depth 0.2 -Total Square (Post) (cm) 1 -Area of Debridement (cm) - Length 1 -Area of Debridement (cm) - Width 1 -Total Square (Area) (cm) 1 -Tunneling No -Undermining/Tunneling No -Circular Undermining No -Wound/Ulcer Outcome Not Healed -Ulcer Cleansing Rinsed/ Irrigated with Saline -Foul Odor after Cleansing No -Bioengineered Tissue No -Bleeding Controlled with Pressure -Offloading Yes -Type of Offloading Knee Walker -Debridement - Bone, 1st 20sq cm Yes #1 L Grt Toe -Time 09:47 -Correct Patient Yes -Correct Side, Site, Position Yes -Correct Procedure Yes -Procedure Performed Yes -Type of Procedure Debridement -Clinical Debridement Muscle / Fascia -Tissue Removed Fascia -Post Debridement (cm) - Length 0.4 -Post Debridement (cm) - Width 0.2 -Post Debridement (cm) - Depth 0.1 -Total Square (Post) (cm) 0.08 -Area of Debridement (cm) - Length 0.4 -Area of Debridement (cm) - Width 0.2 -Total Square (Area) (cm) 0.08 -Tunneling No -Undermining/Tunneling No -Circular Undermining No -Wound/Ulcer Outcome Not Healed -Ulcer Cleansing Rinsed/ Irrigated with Saline -Foul Odor after Cleansing No -Bioengineered Tissue No -Bleeding Controlled with Pressure -Offloading Yes -Type of Offloading Surgical Shoe -Treatment Response Procedure Tolerated Well -Debridement - Muscle / Fascia, 1st No 20sq cm Pain Scale: 0-10 Numeric Is Patient Pain Free? Yes WC - Nurse 3 - General Ulcer D/C NN Start: 02/26/21 11:54 Freq: Status: Active Protocol: Activity Type Activity Date Activity User E-Sign Co-Sign Detail Recorded Client Recorded Date Recorded By Document 02/26/21 11:55 [id number] 02/26/21 11:58 Document 03/05/21 09:53 MW Desktop 03/05/21 09:55 MW 02/26/21 03/05/21 11:55 09:53 Vital Signs Temperature (97.8 F-99.1 F) 96.6 F L Temperature Source Temporal Pulse Rate (60-100) 75 Pulse Location Monitor Respiratory Rate (12-18) 16 Respiratory rate source Observation Blood Pressure (90/60-120/80) 106/75 Blood Pressure Mean (mm Hg) 85 Source Monitor Position Sitting Blood Pressure Location Left Arm Pain Scale: 0-10 Numeric Is Patient Pain Free? Yes Yes Teaching: Wound Center Dressing Your Wound -Person Taught Patient,Family -Teaching Method Discussion -Response to teaching Verbalize understanding Wound Care Nurse 3 #3 4th lateral toe/amp site -Ulcer Cleansing Soap and Water Not Cleansed -Foul Odor after Cleansing No -Negative Pressure Wound Therapy N/A -Primary Dressing Applied Aquacel AG 4x4 Aquacel AG 4x4 -Primary Dressing Covered/Secured with Dry Gauze & Dry Gauze & Roll Gauze, Roll Gauze, Secured with Secured with Tape Tape -Aquacel AG 4x4 1 1 #2 L 5th toe AMP site -Ulcer Cleansing Rinsed/ Rinsed/ Irrigated with Irrigated with Saline Saline -Foul Odor after Cleansing No No -Negative Pressure Wound Therapy N/A -Primary Dressing Applied Aquacel AG 4x4 -Other Dressing aquacel ag -Primary Dressing Covered/Secured with Dry Gauze & Dry Gauze & Roll Gauze, Roll Gauze, Secured with Secured with Tape Tape -Aquacel AG 4x4 0 #1 L Grt Toe -Ulcer Cleansing Soap and Water Rinsed/ Irrigated with Saline -Foul Odor after Cleansing No -Negative Pressure Wound Therapy N/A -Primary Dressing Applied Aquacel AG 4x4 -Other Dressing aquacel ag -Primary Dressing Covered/Secured with Dry Gauze & Dry Gauze & Roll Gauze, Roll Gauze, Secured with Secured with Tape Tape -Aquacel AG 4x4 0 Left -Lotion applied to leg before Yes compression wrap -Compression Wrap Pedro Wrap Treatment Response Procedure Tolerated Well WC - Visit Discharge Discharge Condition Stable Stable Ambulatory Status Ambulatory,Cane Ambulatory,Cane Transportation Private Auto Private Auto Accompanied by daughter Medication Reconcilliation completed & Yes No provided to patient/care provider Clinical Summary of Care Provided Yes Yes Additional Wound Wound debrided: Fourth digit amputation site and medial hallux Laterality: Left Wound Grade/Stage: Luciano 1 Type of Debridement: Excisional debridement Anesthesia Used: 5% Lidocaine Gel Depth: in the subcutaneous layer Percentage of wound debrided: 100 Instrument Used: 3mm curette Tissue Removed: Includes fibrous, devitalized, biofilm, callus and slough tissue Severity: Fat Layer Exposed Amount of bleeding with debridement: Mild Bleeding Controlled with: Pressure Patient tolerated procedure: Patient tolerated procedure well Assessment/Plan Assessment/Plan (1) Non-pressure chronic ulcer of other part of left foot with necrosis of bone: CODE(S): L97.524 - Non-pressure chronic ulcer of other part of left foot with necrosis of bone (2) Non-pressure chronic ulcer of other part of left foot with fat layer exposed: CODE(S): L97.522 - Non-pressure chronic ulcer of other part of left foot with fat layer exposed (3) Osteomyelitis: CODE(S): M86.9 - Osteomyelitis, unspecified QUALIFIERS: Osteomyelitis type: subacute Osteomyelitis location: foot Laterality: left Qualified Code(s): M86.272 - Subacute osteomyelitis, left ankle and foot (4) Type 2 diabetes mellitus: CODE(S): E11.9 - Type 2 diabetes mellitus without complications QUALIFIERS: Diabetes mellitus predatory animal exterminator insulin use: unspecified usp insulin use status Diabetes mellitus complication status: with circulatory complication Diabetes mellitus complication detail: with peripheral angiopathy with gangrene Qualified Code(s): E11.52 - Type 2 diabetes mellitus with diabetic peripheral angiopathy with gangrene (5) PAD (peripheral artery disease): CODE(S): I73.9 - Peripheral vascular disease, unspecified (6) History of tobacco abuse: CODE(S): Z87.891 - Personal history of nicotine dependence (7) Ischaemic rest pain of lower extremity: CODE(S): M79.606 - Pain in leg, unspecified; I99.8 - Other disorder of circulatory system (8) Delayed wound healing: CODE(S): T14.8XXD - Other injury of unspecified body region, subsequent encounter (9) Peripheral arterial occlusive disease: CODE(S): I77.9 - Disorder of arteries and arterioles, unspecified (10) Amputated toe: CODE(S): S98.139A - Complete traumatic amputation of one unspecified lesser toe, initial encounter QUALIFIERS: Laterality: left Qualified Code(s): S98.132A - Complete traumatic amputation of one left lesser toe, initial encounter PLAN: Patient seen and examined with daughter present. She is noted to have increase in swelling with more changes consistent with poor vascular status. Patient is noted to have appointment with Dr. Nicholson next week. Patient was to have appointment with Dr. Nicholson last week but there was some miscommunication and this did not occur. She is also noted to have stabilization to the wounds to her hallux and fourth digit amputation site and worsening to the fifth digit amputation site. Metatarsal heads easily exposed. There is concern for osteomyelitis at the site. Lateral forefoot is noted to be erythematous unchanged infection versus poor vascular status as cause with most likely from poor vascular status. Patient noted to be on Levaquin per Dr. Skaggs. Patient had cultures obtained 02/05/2021 demonstrating Pseudomonas. Discussed possibility of colonization with Pseudomonas with patient and family members. Patient has had Pseudomonas consistently on her wound cultures for the last several months with multiple rounds of treatment. Discussed with Dr. Skaggs as well. There is also concern for PVD again as patient relates that she is having pain in her calf as well as experiencing relief with dangling of her foot over the side of the bed at night. Discussed that this is important as there does seem to be a vascular component to her delayed wound healing again even though she has had multiple interventions already. Discussed with her that sometimes these interventions need to be repeated. Discussed difficulty of healing if not having adequate blood flow. I was unable to palpate her pulses today which continue to be monophasic DP and PT on Doppler exam. Discussed if she has worsening symptoms to go to the emergency room. Patient is status post left fifth digit amputation with application of amnio fix graft, attempted delayed primary closure fourth digit amputation site, debridement of hallux ulceration with Dr. López on 01/03/2021. OR pathology of fifth digit showed acute osteomyelitis. Post lavage cultures obtained at surgery demonstrated very rare Pseudomonas. Patient is noted to have had this bacteria noted in previous cultures with possibility of colonization. It is noted that the fourth digit attempted delayed primary closure was not successful and ulceration remains. Fifth digit amputation site is also dehisced with underlying ulceration. Every other day Aquacel silver dressing changes to ulceration sites covered with dry sterile dressing. To wash with soap and water prior. Patient is noted to have home health care. After verbal consent was obtained sharp excisional debridement of all ulceration sites was carried out. This was done lightly due to concern for vascular status as well as because of amount of patient pain A bone culture was obtained from the fifth metatarsal head was sent to both microbiology and pathology on 03/05/2021 for suspected osteomyelitis. Patient noted to have peripheral vascular disease. Patient has been seeing Dr. Nicholson for management of this. Patient had intervention on 06/12/2020 with some regression of her vascular status noted. Patient had intervention again on 10/11/2020 this was performed at [facility]. Patient noted to have had a left iliofemoral profunda endorterectomy with patch angioplasty, balloon angioplasty of femororal popliteal artery as well as peroneal artery. Patient has another appointment with Dr. Nicholson upcoming. Patient is reexperiencing poor vascular status symptoms Reviewed proper wound care with patient. Discussed with the patient the importance of offloading the sites with wide enough shoe gear if she is to be wearing shoes, proper diet, good blood sugar control. Patient has used Darci in the past nutritional supplementation. She continues to use this twice a day. Patient was offered nutritional counseling with a senior financial reporting accountant. She is noted to have had counseling while in the hospital. Patient has offloaded surgical shoe. Discussed with the patient all concerning signs and symptoms to watch out for and to contact office if he either presents. Application for TheraSkin skin graft is approved but there is a portion that patient has cover [id number]. Patient will discuss with family if this is doable if she wants to proceed with this she will let us know. Resubmitted to see if her [id number] cost is changed since previous submission. Patient is noted to still be responsible for $325 per application. This is not doable per patient. Patient and family may reconsider pending vascular results with Dr. Nicholson next week. Patient has a diabetic foot ulceration that has failed to show measurable signs of healing after completing 30 consecutive days of standard wound care. There is high suspicion of osteomyelitis even though patient has had multiple rounds of antibiotics and consultations with infectious disease. Culture was obtained 03/05/2021 which will definitively answer if she does have osteomyelitis. We will discuss to see if patient might be a potential candidate for hyperbaric oxygen therapy. This would include further work up with labs, imaging, and clearance consultation. If patient is approved for hyperbaric oxygen therapy our goals would be to get progression and healing of patient's wounds while continuing regular debridements, monitoring, offloading, medical optimizing and monitoring. Patient is noted to have been denied hyperbarics in the past but with new osteomyelitis we are hopeful that she will be approved for therapy in order to obtain wound healing. We will resubmit for hyperbarics once bone culture has returned and pending results Patient encouraged to follow-up with PCP with concerning depression-like symptoms over lack of progress and continued pain. Patient family also has expressed concerns over patient's mental health. Patient is to follow-up in 1 week This note was generated with [employer] software. It may contain incorrect words, spelling, and punctuation that were not noted in checking the note before signing. 20 to 29 minutes was spent on this encounter. This included both face to face and non face to face care, which includes but not limited to time preparing for the visit (which includes but not limited to reviewing medical record, any p ertinent paperwork, as well as previous imaging and/or test results), reviewing/obtaining the noted history, performing the noted examination, counseling and providing education to the patient as well as to patient's family and/or patient caregivers per patient request. This also includes ordering any medication(s), test(s), and/or procedure(s) as indicated and as documented in the medical record, interpreting / sharing this information when indicated (and with patient's permission) as documented, communicating with other healthcare providers as needed/as requested, the time documenting information in the medical record, as well as any further care coordination.
[2021-03-12 09:05] VITALS: BP 116/62; PULSE 65; RESP 16; TEMP 35.8; BMI 23.5
--- NOTE | 2021-03-12 10:05 | RAD_ITS ---
EXAM: XR CHEST, 2 VIEWS : 1935 CLINICAL INDICATION: HYPERBARIC O2 TX TECHNIQUE: Frontal and lateral views of the chest. This report was created using [employer] report generation technology. COMPARISON: 05/13/2019 FINDINGS: LUNGS AND PLEURAL SPACES: Unremarkable. No consolidation or edema. No pneumothorax. No effusion. HEART: Unremarkable. Cardiac silhouette not enlarged. MEDIASTINUM: Central airways and mediastinal contour are unremarkable. BONES/JOINTS: Unremarkable. SOFT TISSUES: Unremarkable. RAD/Chest PA and Lateral IMPRESSION: No radiographic evidence of acute cardiopulmonary disease. at 0313 Reported and signed by: Brian Mustafa MD Electronically Signed: Brian Mustafa MD at 3:12 EDT Tel , Service support ,
--- NOTE | 2021-03-12 11:56 | PN.PCM_ITS ---
History of Present Illness Date of Service: 03/12/21 Chief Complaint: Left foot first digit ulceration Left fourth and fifth digit amputation site ulceration PAD History of Wound: Patient had intervention done by Dr. Nicholson on 06/12/2020. Patient saw Dr. Tenorio June 26, 2020 and was started on 100mg gabapentin TID. She has noticed some improvement in her pain. Patient had further intervention with Dr. Nicholson on October 11, 2020. Patient relates having to be transferred to [facility] for this. 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 Amputation of 4th digit with debridement of 1st and 5th digit ulcerations was performed 07/08/20. 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 Patient underwent left fifth digit amputation with attempted delayed closure of fourth digit amputation site ulceration and with application of amnio fix grafting to all sites by Dr. López on 01/03/2021. The attempt for delayed primary closure of the previous fourth digit amputation site ulceration was not successful and ulceration here remains. Cultures at this time are also positive for Pseudomonas. 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 Cultures from 02/05/2021 were also positive for Pseudomonas. Patient has had multiple rounds of antibiotics and consultation with infectious disease over this infection. Patient is noted to have return of vascular symptom complaints especially to left lower extremity. She has appointment with Dr. Nicholson for reassessment with the understanding she might need possible further intervention. Patient continues care at the wound care center for remaining left foot wounds. Patient is noted to have been approved for [employer] but was not fully covered and would not be able to cover the remaining financial expense. Patient has had other modalities of treatment to include HBO therapy. Progress of Wound: Worsening Subjective Subjective Patient seen and examined resting comfortably. Patient denies any new pedal complaints. Patient denies any nausea, fever, chills, chest pain, shortness of breath, cough, streaking, purulence, vomiting. Patient relates that home health care decided that they were not going to do weekend visits anymore. Patient continues to pain to lower extremity. Objective Data Objective Data Vital Signs: Vital Signs Temp Pulse Resp BP 96.5 F L 65 16 116/62 03/12/21 09:05 03/12/21 09:05 03/12/21 09:05 03/12/21 09:05 Oxygen Delivery Method Room Air Weight: 149 kg Body Mass Index (BMI) 23.5 Lab / Micro Data Micro: Microbiology 03/05/21 09:38 Ulcer, Decubitus - Left Foot Gram Stain - Final 03/05/21 09:38 Ulcer, Decubitus - Left Foot Wound Culture - Final Pseudomonas aeroginosa 03/05/21 09:38 Ulcer, Decubitus - Left Foot Anaerobic Culture - Final No anaerobic bacteria isolated. Physical Exam Narrative Const alert and no apparent distress General Appearance: cooperative and comfortable Lymph Lymphatic: no lymphedema noted Resp normal respiratory effort Effort and Inspection: able to speak in complete sentences Extremity no calf tenderness, negative gume and sainz sign General Extremity: no tenderness to palpation of joints or extremities; Negative for clubbing or cyanosis or ecchymosis Vasc Left foot peripheral Pulses: Posterior tibial pulse and dorsalis pedis pulses were nonpalpable and monophasic on Doppler. Capillary fill time greater than 3 seconds to all remaining digits left foot. Edema noted to left lower extremity Skin General Skin Exam: dry skin and venous stasis, decreased hair growth noted; Negative for ecchymosis, eschar, pallor. Wound Narrative: ulcers noted to left first toe and fourth and fifth amputation site. Fifth toe amputation site ulceration has easily exposed metatarsal head. Incision to left fifth digit amputation has dehisced with exposure of the fifth metatarsal head noted. The metatarsal head bone is exposed. There is surrounding erythema and edema to lateral forefoot which appears vascular in nature. There is serosanguineous drainage noted. No purulence. No malodor Skin is atrophic and hairless dry and flaky. There is increasing focal erythema with coolness of area to distal lateral foot consistent with worsening blood flow status Fourth digit amputation site does not probes to bone and there is fibrotic and granulation tissue noted. Skin is taunt, shiny, thin and atrophic. To level of fat Granular base noted to first digit and fourth digit amputation site. Medial left hallux ulceration. No erythema, edema, malodor, drainage, probing. To the level of fascia. Granular fibrotic base. Increased lower extremity edema noted. Normal skin temperature remains. Foot is warm, but symptoms are concerning for vascular change. There is some increasing rubor noted to entire lower extremity. Negative Gume and Sainz sign Neuro Gait (Neuro): heel to toe Sensory Exam: extremities light-touch: decreased MSK Motor Exam: strength 5/5 throughout, ROM to foot and ankle joints within normal limits Psych Appearance: appropriate Attitude: calm Debridement Note Debridement Note Wound debrided: Hallux, fourth and fifth digit amputation site Laterality: Left No debridement was completed: No debridement was completed today (Due to concerns for worsening vascular status) Post-Debridement Measurements and Additional Note: Post-Debridement Measurements/Treatment SOPHIA - Nurse 1 - General Ulcer Assessment Start: 02/26/21 11:54 Freq: Status: Active Protocol: ESVIN Activity Type Activity Date Activity User E-Sign Co-Sign Detail Recorded Client Recorded Date Recorded By Document 02/26/21 11:55 [id number] 02/26/21 11:58 Document 03/05/21 09:04 BM Desktop 03/05/21 09:11 [facility] Document 03/12/21 09:05 MW [id number] 03/12/21 09:13 MW 02/26/21 03/05/21 03/12/21 11:55 09:04 09:05 - Today's Visit Information Type of service Nurse-only Follow-up Visit Follow-up Visit Visit (Physician/RUBBLE [employer]ACER (Physician/RUBBLE PLACER ) ) Arrival Mode Ambulatory,Cane Ambulatory,Cane Ambulatory,Cane Transfer Assistance None None Accompanied by grand daughter Patient Identification Verified (Name & Yes Yes ) Patient Requires Transmission-Based No No No Precautions Safety Precautions NA Height and Weight Body Mass Index (BMI) 23.5 23.5 23.5 BMI Classification Normal Normal Normal Vital Signs Temperature (97.8 F-99.1 F) 96.6 F L 96.6 F L 96.5 F L Temperature Source Temporal Temporal Temporal Pulse Rate (60-100) 75 63 65 Pulse Location Monitor Monitor Monitor Respiratory Rate (12-18) 16 16 16 Respiratory rate source Observation Observation Observation Oxygen Delivery Method Room Air Room Air Blood Pressure (90/60-120/80) 106/75 155/36 H 116/62 Blood Pressure Mean (mm Hg) 85 75 80 Source Monitor Monitor Monitor Position Sitting Sitting Sitting Blood Pressure Location Left Arm Left Arm Right Arm Have you changed medications since your No No last visit? Any new allergies or adverse reactions No No Had a fall/change in ADL's that may No No increase risk of falls Signs or symptoms of abuse and/or No No neglect since last visit Have you been in the hospital since your No No last visit? Has dressing in place as prescribed Yes Yes Has compression in place as prescribed Yes Yes Has offloadiing in place as prescribed N/A N/A Experienced any changes in pain level or No No management History Since Last Visit- (Skip if this is Patient's initial visit) Left Footwear Surgical Shoe Surgical Shoe Surgical Shoe with pressure with pressure with pressure relief insole relief insole relief insole Right Footwear Regular Shoe Regular Shoe Regular Shoe Pain Scale: 0-10 Numeric Is Patient Pain Free? Yes Yes Yes - Nurse 1 - General Ulcer Measurement Start: 02/26/21 11:54 Freq: Status: Active Protocol: Activity Type Activity Date Activity User E-Sign Co-Sign Detail Recorded Client Recorded Date Recorded By Document 02/26/21 11:55 [id number] 02/26/21 11:58 Document 03/05/21 09:04 [facility] Desktop 03/05/21 09:11 [facility] Document 03/12/21 09:05 MW [id number] 03/12/21 09:13 MW 02/26/21 03/05/21 03/12/21 11:55 09:04 09:05 Wound Center Nurse 1 #3 4th lateral toe/amp site -Combined with other wound No No No -Current Size (cm) - Length 1.6 1.8 2.0 -Current Size (cm) - Width 0.8 0.8 0.8 -Current Size (cm) - Depth 0.5 0.5 0.7 -Total Square Cm 1.28 1.44 1.60 -Photo Taken No No No -Epithelialization Small 1-33% None Present None Present -Tunneling No No No -Undermining/Tunneling No No No -Circular Undermining No No No -Exudate Amt Small Medium Small -Exudate Type Serosanguineous Serosanguineous Serosanguineous -Wound Margin Flat & Intact Distinct, Thickened Outline Attached -Granulation Amt Medium (34-66%) Large (67-100%) Small (1-33%) -Granulation Quality Pale [place] -Slough/Fibrin Yes Yes Yes -Necrosis Amt Small (1-33%) Small (1-33%) Large (67-100%) -Necrotic Tissue Type Adherent Slough Adherent Slough Adherent Slough -Structure Exposed N/A N/A -Texture (Dot-wound Skin Appearance) No Abnormality Assessed, Assessed, Scarring Scarring -Moisture (Dot-wound Skin Appearance) Assessed Assessed Assessed, Maceration -Color (Dot-wound Skin Appearance) Assessed Assessed, Assessed, Erythema Erythema -Temperature (Dot-wound Skin No Abnormality No Abnormality No Abnormality Appearance) (Pt Warm) (Pt Warm) (Pt Warm) -Tenderness on Palpation (Dot-wound No Yes No Skin Appearance) -Ulcer Cleansing Wound Cleanser Rinsed/ Rinsed/ Irrigated with Irrigated with Saline Saline -Foul Odor after Cleansing No No No -Anesthetic Used 5% Lidocaine 5% Lidocaine Gel Gel #2 L 5th toe AMP site -Combined with other wound No No No -Current Size (cm) - Length 1 1 1.0 -Current Size (cm) - Width 0.8 0.6 0.9 -Current Size (cm) - Depth 0.6 0.3 0.2 -Total Square Cm 0.8 0.6 0.90 -Photo Taken No No No -Epithelialization None Present None Present None Present -Tunneling No No No -Undermining/Tunneling No No No -Circular Undermining No No -Exudate Amt Medium Medium Small -Exudate Type Sanguineous Serosanguineous Serosanguineous -Wound Margin Flat & Intact Distinct, Thickened Outline Attached -Granulation Amt Large (67-100%) Small (1-33%) Large (67-100%) -Granulation Quality [place] -Slough/Fibrin Yes Yes Yes -Necrosis Amt Small (1-33%) Large (67-100%) Small (1-33%) -Necrotic Tissue Type Adherent Slough Adherent Slough Adherent Slough -Structure Exposed Bone N/A -Texture (Dot-wound Skin Appearance) Assessed, Assessed, Assessed, Localized Edema Scarring Scarring -Moisture (Dot-wound Skin Appearance) Assessed,Dry/ Assessed Assessed, Scaly Maceration -Color (Dot-wound Skin Appearance) Assessed Assessed, Assessed, Erythema Erythema -Temperature (Dot-wound Skin No Abnormality No Abnormality No Abnormality Appearance) (Pt Warm) (Pt Warm) (Pt Warm) -Tenderness on Palpation (Dot-wound No Yes Yes Skin Appearance) -Ulcer Cleansing Wound Cleanser Rinsed/ Rinsed/ Irrigated with Irrigated with Saline Saline -Foul Odor after Cleansing No No No -Anesthetic Used 5% Lidocaine 5% Lidocaine Gel Gel #1 L Grt Toe -Combined with other wound No No No -Current Size (cm) - Length 0.1 0.1 2.2 -Current Size (cm) - Width 0.1 0.1 0.2 -Current Size (cm) - Depth 0.1 0.1 0.2 -Total Square Cm 0.01 0.01 0.44 -Photo Taken No No No -Epithelialization Large 67-100% Large 67-100% None Present -Tunneling No No No -Undermining/Tunneling No No No -Circular Undermining No No Yes -Exudate Amt None Present None Present Small -Exudate Type Serosanguineous -Wound Margin Indistinct, Non Flat & Intact -Visible -Granulation Amt None Present (0 None Present (0 %) %) -Granulation Quality N/A -Slough/Fibrin Yes Yes -Necrosis Amt Large (67-100%) Large (67-100%) -Necrotic Tissue Type Adherent Slough -Structure Exposed N/A N/A -Texture (Dot-wound Skin Appearance) Assessed, Callus,Scarring Assessed, Localized Edema Localized Edema -Moisture (Dot-wound Skin Appearance) Assessed,Dry/ Assessed,Dry/ Assessed,Dry/ Scaly Scaly Scaly -Color (Dot-wound Skin Appearance) Assessed Assessed No Abnormality, Assessed -Temperature (Dot-wound Skin No Abnormality No Abnormality No Abnormality Appearance) (Pt Warm) (Pt Warm) (Pt Warm) -Tenderness on Palpation (Dot-wound No No No Skin Appearance) -Ulcer Cleansing Wound Cleanser Rinsed/ Rinsed/ Irrigated with Irrigated with Saline Saline -Foul Odor after Cleansing No No No -Anesthetic Used 5% Lidocaine 5% Lidocaine Gel Gel Lower Limb Edema Present Yes Yes No Left Calf (cm) 30.5 Left Ankle (cm) 22 WC - Nurse 2 - General Ulcer CM Notes Start: 02/26/21 11:54 Freq: Status: Active Protocol: Activity Type Activity Date Activity User E-Sign Co-Sign Detail Recorded Client Recorded Date Recorded By Document 03/05/21 09:31 JF [id number] 03/05/21 09:49 JF Document 03/12/21 09:27 JF [id number] 03/12/21 09:42 JF 03/05/21 03/12/21 09:31 09:27 Wound Center Nurse 2 #3 4th lateral toe/amp site -Time 09:32 -Correct Patient Yes No -Correct Side, Site, Position Yes No -Correct Procedure Yes No -Procedure Performed Yes No -Type of Procedure Debridement -Clinical Debridement Muscle / Fascia -Tissue Removed Fascia -Post Debridement (cm) - Length 1.8 -Post Debridement (cm) - Width 1.9 -Post Debridement (cm) - Depth 0.8 -Total Square (Post) (cm) 3.42 -Area of Debridement (cm) - Length 1.8 -Area of Debridement (cm) - Width 1.9 -Total Square (Area) (cm) 3.42 -Tunneling No -Undermining/Tunneling No -Circular Undermining No -Wound/Ulcer Outcome Not Healed Not Healed -Ulcer Cleansing Rinsed/ Irrigated with Saline -Foul Odor after Cleansing No -Bioengineered Tissue No -Bleeding Controlled with Pressure -Offloading Yes -Type of Offloading Surgical Shoe -Treatment Response Procedure Tolerated Well -Debridement - Muscle / Fascia, 1st Yes 20sq cm #2 L 5th toe AMP site -Time 09:47 -Correct Patient Yes No -Correct Side, Site, Position Yes No -Correct Procedure Yes No -Procedure Performed Yes No -Type of Procedure Debridement -Clinical Debridement Bone -Tissue Removed Fascia -Post Debridement (cm) - Length 1 -Post Debridement (cm) - Width 1 -Post Debridement (cm) - Depth 0.2 -Total Square (Post) (cm) 1 -Area of Debridement (cm) - Length 1 -Area of Debridement (cm) - Width 1 -Total Square (Area) (cm) 1 -Tunneling No -Undermining/Tunneling No -Circular Undermining No -Wound/Ulcer Outcome Not Healed Not Healed -Ulcer Cleansing Rinsed/ Irrigated with Saline -Foul Odor after Cleansing No -Bioengineered Tissue No -Bleeding Controlled with Pressure -Offloading Yes -Type of Offloading Knee Walker -Debridement - Bone, 1st 20sq cm Yes #1 L Grt Toe -Time 09:47 -Correct Patient Yes No -Correct Side, Site, Position Yes No -Correct Procedure Yes No -Procedure Performed Yes No -Type of Procedure Debridement -Clinical Debridement Muscle / Fascia -Tissue Removed Fascia -Post Debridement (cm) - Length 0.4 -Post Debridement (cm) - Width 0.2 -Post Debridement (cm) - Depth 0.1 -Total Square (Post) (cm) 0.08 -Area of Debridement (cm) - Length 0.4 -Area of Debridement (cm) - Width 0.2 -Total Square (Area) (cm) 0.08 -Tunneling No -Undermining/Tunneling No -Circular Undermining No -Wound/Ulcer Outcome Not Healed Not Healed -Ulcer Cleansing Rinsed/ Irrigated with Saline -Foul Odor after Cleansing No -Bioengineered Tissue No -Bleeding Controlled with Pressure -Offloading Yes -Type of Offloading Surgical Shoe -Treatment Response Procedure Tolerated Well -Debridement - Muscle / Fascia, 1st No 20sq cm Pain Scale: 0-10 Numeric Is Patient Pain Free? Yes Yes WC - Nurse 3 - General Ulcer D/C NN Start: 02/26/21 11:54 Freq: Status: Active Protocol: Activity Type Activity Date Activity User E-Sign Co-Sign Detail Recorded Client Recorded Date Recorded By Document 02/26/21 11:55 [id number] 02/26/21 11:58 JF Document 03/05/21 09:53 MW Desktop 03/05/21 09:55 MW Document 03/12/21 09:45 MW [id number] 03/12/21 09:48 MW 02/26/21 03/05/21 03/12/21 11:55 09:53 09:45 Vital Signs Temperature (97.8 F-99.1 F) 96.6 F L Temperature Source Temporal Pulse Rate (60-100) 75 Pulse Location Monitor Respiratory Rate (12-18) 16 Respiratory rate source Observation Blood Pressure (90/60-120/80) 106/75 Blood Pressure Mean (mm Hg) 85 Source Monitor Position Sitting Blood Pressure Location Left Arm Pain Scale: 0-10 Numeric Is Patient Pain Free? Yes Yes Yes Teaching: Wound Center Dressing Your Wound -Person Taught Patient,Family Patient,Family -Teaching Method Discussion Discussion, Demonstration -Response to teaching Verbalize Verbalize understanding understanding Wound Care Nurse 3 #3 4th lateral toe/amp site -Ulcer Cleansing Soap and Water Not Cleansed Rinsed/ Irrigated with Saline -Foul Odor after Cleansing No No -Negative Pressure Wound Therapy N/A N/A -Primary Dressing Applied Aquacel AG 4x4 Aquacel AG 4x4 Silvercel -Primary Dressing Covered/Secured with Dry Gauze & Dry Gauze & Dry Gauze & Roll Gauze, Roll Gauze, Roll Gauze, Secured with Secured with Secured with Tape Tape Tape -Aquacel AG 4x4 1 1 -Silvercel 1 #2 L 5th toe AMP site -Ulcer Cleansing Rinsed/ Rinsed/ Rinsed/ Irrigated with Irrigated with Irrigated with Saline Saline Saline -Foul Odor after Cleansing No No No -Negative Pressure Wound Therapy N/A N/A -Primary Dressing Applied Aquacel AG 4x4 -Other Dressing aquacel ag silvercel -Primary Dressing Covered/Secured with Dry Gauze & Dry Gauze & Dry Gauze & Roll Gauze, Roll Gauze, Roll Gauze, Secured with Secured with Secured with Tape Tape Tape -Aquacel AG 4x4 0 #1 L Grt Toe -Ulcer Cleansing Soap and Water Rinsed/ Rinsed/ Irrigated with Irrigated with Saline Saline -Foul Odor after Cleansing No No -Negative Pressure Wound Therapy N/A N/A -Primary Dressing Applied Aquacel AG 4x4 -Other Dressing aquacel ag silvercel -Primary Dressing Covered/Secured with Dry Gauze & Dry Gauze & Dry Gauze & Roll Gauze, Roll Gauze, Roll Gauze, Secured with Secured with Secured with Tape Tape Tape -Aquacel AG 4x4 0 Left -Lotion applied to leg before Yes No compression wrap -Compression Wrap Pedro Wrap Pedro Wrap -Other pedro wrap loosely to secure dressing Treatment Response Procedure Procedure Tolerated Well Tolerated Well WC - Visit Discharge Discharge Condition Stable Stable Stable Ambulatory Status Ambulatory,Cane Ambulatory,Cane Ambulatory,Cane Transportation Private Auto Private Auto Private Auto Accompanied by daughter grand daughter Medication Reconcilliation completed & Yes No No provided to patient/care provider Clinical Summary of Care Provided Yes Yes Yes Assessment/Plan Assessment/Plan (1) Non-pressure chronic ulcer of other part of left foot with necrosis of bone: CODE(S): L97.524 - Non-pressure chronic ulcer of other part of left foot with necrosis of bone (2) Non-pressure chronic ulcer of other part of left foot with fat layer exposed: CODE(S): L97.522 - Non-pressure chronic ulcer of other part of left foot with fat layer exposed (3) Osteomyelitis: CODE(S): M86.9 - Osteomyelitis, unspecified QUALIFIERS: Laterality: left Osteomyelitis location: foot Osteomyelitis type: subacute Qualified Code(s): M86.272 - Subacute osteomyelitis, left ankle and foot (4) Type 2 diabetes mellitus: CODE(S): E11.9 - Type 2 diabetes mellitus without complications QUALIFIERS: Diabetes mellitus complication detail: with peripheral angiopathy with gangrene Diabetes mellitus complication status: with circulatory complication Diabetes mellitus assisted insulin use: unspecified assisted insulin use status Qualified Code(s): E11.52 - Type 2 diabetes mellitus with diabetic peripheral angiopathy with gangrene (5) PAD (peripheral artery disease): CODE(S): I73.9 - Peripheral vascular disease, unspecified (6) History of tobacco abuse: CODE(S): Z87.891 - Personal history of nicotine dependence (7) Ischaemic rest pain of lower extremity: CODE(S): M79.606 - Pain in leg, unspecified; I99.8 - Other disorder of circulatory system (8) Delayed wound healing: CODE(S): T14.8XXD - Other injury of unspecified body region, subsequent encounter (9) Peripheral arterial occlusive disease: CODE(S): I77.9 - Disorder of arteries and arterioles, unspecified (10) Amputated toe: CODE(S): S98.139A - Complete traumatic amputation of one unspecified lesser toe, initial encounter QUALIFIERS: Laterality: left Qualified Code(s): S98.132A - Complete traumatic amputation of one left lesser toe, initial encounter PLAN: Patient seen and examined with granddaughter present. She is noted to have increase in swelling with more changes consistent with poor vascular status. Skin is noted to be cooler to distal lateral foot with surrounding redness. Discussed this with patient. She has appointment with Dr Nicholson tomorrow. She is noted to have already had PVRs obtained. Discussed with patient that the results were not good and that she may be looking at another procedure possibly. Dr Nihcolson will be able to give her more information at her appointment tomorrow. Discussed that either way patient may still need further amputation depending on how much blood flow may be able to be restored and at what level. Patient to ask Dr Nicholson tomorrow about healing potential and at what level. Vascular studies 03/11/21 show bilateral DP and PT monphasic pulses. JENY left 0.4 at PT and 1.35 at DP and on right 0.66 at PT and 0.9 at DP with TBI of 0.19. No TBI obtained on left. Lateral forefoot is noted to be erythematous worsened at distal lateral aspect infection versus poor vascular status as cause with most likely from poor vascular status. Patient noted to be on Levaquin per Dr. Skaggs. Patient had cultures obtained 02/05/2021 demonstrating Pseudomonas. Discussed possibility of colonization with Pseudomonas with patient and family members. Patient has had Pseudomonas consistently on her wound cultures for the last several months with multiple rounds of treatment. Culture of 5th metatarsal bone 03/05/21 was positive for PsAg. Rx for levaquin was sent to patient's pharmacy. Patient to follow up with Dr Skaggs for osteomyelitis treatment. There is also concern for PVD again as patient relates that she is having pain in her calf as well as experiencing relief with dangling of her foot over the side of the bed at night. Discussed that this is important as there does seem to be a vascular component to her delayed wound healing again even though she has h ad multiple interventions already. Discussed with her that sometimes these interventions need to be repeated. Discussed difficulty of healing if not having adequate blood flow. I was unable to palpate her pulses today which continue to be monophasic DP and PT on Doppler exam. Discussed if she has worsening symptoms to go to the emergency room. Every other day Aquacel silver dressing changes to ulceration sites covered with dry sterile dressing. To wash with soap and water prior. Patient is noted to have home health care. Due to concern over worsening vascular status no debridement was carried out today. Reviewed proper wound care with patient. Discussed with the patient the importance of offloading the sites with wide enough shoe gear if she is to be wearing shoes, proper diet, good blood sugar control. Patient has used Darci in the past nutritional supplementation. She continues to use this twice a day. Patient was offered nutritional counseling with a circulation man. She is noted to have had counseling while in the hospital. Patient has offloaded surgical shoe. Discussed with the patient all concerning signs and symptoms to watch out for and to contact office if he either presents. Application for TheraSkin skin graft is approved but there is a portion that patient has cover [id number]. Patient will discuss with family if this is doable if she wants to proceed with this she will let us know. Resubmitted to see if her [id number] cost is changed since previous submission. Patient is noted to still be responsible for $325 per application. This is not doable per patient. Patient and family may reconsider pending vascular results with Dr. Nicholson. Patient has a diabetic foot ulceration that has failed to show measurable signs of healing after completing 30 consecutive days of standard wound care. There is confirmed osteomyelitis to left 5th metatarsal even though patient has had multiple rounds of antibiotics and consultations with infectious disease. Patient would likely be a good candidate for hyperbaric oxygen therapy. This would include further work up with labs, imaging, and clearance consultation. If patient is approved for hyperbaric oxygen therapy our goals would be to get progression and healing of patient's wounds while continuing regular debridements, monitoring, offloading, medical optimizing and monitoring. Patient is noted to have been denied hyperbarics in the past but with new osteomyelitis we are hopeful that she will be approved for therapy in order to obtain wound healing. Rx for chest XR for hyperbaric oxygen therapy evaluation was ordered. Patient encouraged to follow-up with PCP with concerning depression-like symptoms over lack of progress and continued pain. Patient family also has expressed concerns over patient's mental health. Patient to follow up with Dr Skaggs for osteomyelitis. She is also scheduled to get HBO H&P next week. Patient is to follow-up in 1 week. Patient is aware that I am leaving the wound care center and that her care will be continued by another practitioner. Patient understands and agrees. This note was generated with [employer] dictation software. It may contain incorrect words, spelling, and punctuation that were not noted in checking the note before signing. 20 to 29 minutes was spent on this encounter. This included both face to face and non face to face care, which includes but not limited to time preparing for the visit (which includes but not limited to reviewing medical record, any pertinent paperwork, as well as previous imaging and/or test results), reviewing/obtaining the noted history, performing the noted examination, counseling and providing education to the patient as well as to patient's family and/or patient caregivers per patient request. This also includes ordering any medication(s), test(s), and/or procedure(s) as indicated and as documented in the medical record, interpreting / sharing this information when indicated (and with patient's permission) as documented, communicating with other healthcare providers as needed/as requested, the time documenting information in the medical record, as well as any further care coordination.
[2021-03-20 09:02] VITALS: BP 162/54; PULSE 63; RESP 16; TEMP 35.9; BMI 23.5
--- NOTE | 2021-03-20 11:23 | HP.PCM_ITS ---
History of Present Illness Date of Service: 03/20/21 Chief Complaint: Left foot first digit ulceration Left fourth and fifth digit amputation site ulceration PAD History of Wound: Patient had intervention done by Dr. Nicholson on 06/12/2020. Patient saw Dr. Tenorio June 26, 2020 and was started on 100mg gabapentin TID. She has noticed some improvement in her pain. Patient had further intervention with Dr. Nicholson on October 11, 2020. Patient relates having to be transferred to [facility] for this. 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 Amputation of 4th digit with debridement of 1st and 5th digit ulcerations was performed 07/08/20. 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 Patient underwent left fifth digit amputation with attempted delayed closure of fourth digit amputation site ulceration and with application of amnio fix grafting to all sites by Dr. López on 01/03/2021. The attempt for delayed primary closure of the previous fourth digit amputation site ulceration was not successful and ulceration here remains. Cultures at this time are also positive for Pseudomonas. 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 Cultures from 02/05/2021 were also positive for Pseudomonas. Patient has had multiple rounds of antibiotics and consultation with infectious disease over this infection. Patient is noted to have return of vascular symptom complaints especially to left lower extremity. She has appointment with Dr. Nicholson for reassessment with the understanding she might need possible further intervention. Patient continues care at the wound care center for remaining left foot wounds. Patient is noted to have been approved for [employer] but was not fully covered and would not be able to cover the remaining financial expense. Patient has had other modalities of treatment to include HBO therapy. Progress of Wound: Worsening [facility] Medical History Ambulates with cane Arthritis Atherosclerotic heart disease of [place] coronary artery without angina pectoris BBB (bundle branch block) Cardiology follow-up encounter Carotid stenosis, bilateral Carotid stenosis, bilateral Diabetes Easy bruising Essential hypertension Former smoker HTN (hypertension) Hyperlipidemia Injury of head and neck Osteoarthritis PAD (peripheral artery disease) Peripheral arterial occlusive disease Presence of stent in coronary artery (~07/04/11) Prolapsed bladder RBBB (right bundle branch block) Shortness of breath on exertion TIA (transient ischemic attack) Type 2 diabetes mellitus Wears dentures Home Medications aspirin 81 mg PO QHS 06/07/16 [History Last Taken 01/03/21 06:00] clopidogrel 75 mg PO DAILY 06/07/16 [History Last Taken 01/03/21 06:00] coenzyme Q10 10 mg capsule 10 mg PO DAILY 01/11/19 [History Last Taken 06/12/20] nitroglycerin 0.4 mg sublingual tablet 0.4 mg SUBLINGUAL Q5-15M 01/11/19 [History Last Taken Unknown] multivitamin 1 tab PO DAILY 04/28/19 [History Last Taken 06/12/20] omega-3 fatty acids 1,000 mg capsule 1,000 mg PO DAILY 04/28/19 [History Last Taken 06/12/20] cholecalciferol (vitamin D3) 50 mcg (2,000 unit) capsule 50 mcg PO DAILY 11/02/19 [History Last Taken 06/12/20] amlodipine 5 mg PO DAILY 07/07/20 [History Last Taken 01/03/21 06:00] acetaminophen 325 mg PO Q6H PRN 12/31/20 [History Last Taken Unknown] metformin 500 mg PO DAILY 12/31/20 [History Last Taken Unknown] lisinopril 20 mg tablet 20 mg PO BID 01/01/21 [History Last Taken Unknown] metoprolol tartrate 25 mg tablet 25 mg PO TID tab 01/01/21 [History Last Taken 01/03/21 06:00] cephalexin 500 mg PO BID #14 cap 01/03/21 [Rx Last Taken Unknown] oxycodone-acetaminophen 1 tab PO Q8H PRN 4 Days #12 tab 01/03/21 [Rx Last Taken Unknown] oxycodone-acetaminophen 1 tab PO Q8H PRN 5 Days #14 tab 01/10/21 [Rx Last Taken Unknown] levofloxacin 750 mg PO DAILY 7 Days #7 tab 02/05/21 [Rx Last Taken Unknown] levofloxacin 500 mg PO DAILY #7 tab 03/12/21 [Rx Last Taken Unknown] Allergy/AdvReac Type Severity Reaction Status Date / Time pravastatin AdvReac Severe myalgias Verified 01/03/21 09:07 Sulfa (Sulfonamide AdvReac Mild stomach Verified 01/03/21 09:07 Antibiotics) upset atorvastatin AdvReac myalgias Verified 01/03/21 09:07 Family History Father Diabetes Heart disease Brother Diabetes Colon cancer Brother Diabetes Surgical History Cataract extraction status of right eye History of colonoscopy History of heart artery stent History of hemorrhoidectomy History of hysterectomy History of left-sided carotid endarterectomy History of tonsillectomy Presence of coronary angioplasty implant and graft (~07/04/11) Status post peripheral artery angioplasty Social History Smoking Status: Former smoker alcohol intake: current details: social substance use type: does not use caffeine: Yes what type of physical activity do you participate in: walking seatbelt use: always do you feel safe at home: Yes ROS Integumentary Integumentary: Reports as per HPI, skin pain, skin ulcer, skin swelling and wounds Vital Signs Vital Signs Vital Signs: 03/20/21 09:02 Temperature 96.7 F L Temperature Source Temporal Pulse Rate 63 Respiratory Rate 16 Blood Pressure 162/54 H Blood Pressure Mean 90 Blood Pressure Source Monitor Blood Pressure Position Sitting Blood Pressure Location Left Arm Weight Weight: 328 lb 7.82 oz Body Mass Index (BMI) 23.5 Physical Exam Narrative Const alert and no apparent distress General Appearance: cooperative and comfortable Lymph Lymphatic: no lymphedema noted Resp normal respiratory effort Effort and Inspection: able to speak in complete sentences Extremity no calf tenderness, negative gume and garcia sign General Extremity: no tenderness to palpation of joints or extremities; Negative for clubbing or cyanosis or ecchymosis Vasc Left foot peripheral Pulses: Posterior tibial pulse and dorsalis pedis pulses were nonpalpable and monophasic on Doppler. Capillary fill time greater than 3 seconds to all remaining digits left foot. Edema noted to left lower extremity Skin General Skin Exam: dry skin and venous stasis, decreased hair growth noted; Negative for ecchymosis, eschar, pallor. Wound Narrative: ulcers noted to left first toe and fourth and fifth amputation site. Fifth toe amputation site ulceration has easily exposed metatarsal head. Incision to left fifth digit amputation has dehisced with exposure of the fifth metatarsal head noted. The metatarsal head bone is exposed. There is surrounding erythema and edema to lateral forefoot which appears vascular in nature. There is serosanguineous drainage noted. No purulence. No malodor Skin is atrophic and hairless dry and flaky. There is increasing focal erythema with coolness of area to distal lateral foot consistent with worsening blood flow status Fourth digit amputation site does not probes to bone and there is fibrotic and granulation tissue noted. Skin is taunt, shiny, thin and atrophic. To level of fat Granular base noted to first digit and fourth digit amputation site. Medial left hallux ulceration. No erythema, edema, malodor, drainage, probing. To the level of fascia. Granular fibrotic base. Increased lower extremity edema noted. Normal skin temperature remains. Foot is warm, but symptoms are concerning for vascular change. There is some increasing rubor noted to entire lower extremity. Negative Gume and Garcia sign Neuro Gait (Neuro): heel to toe Sensory Exam: extremities light-touch: decreased MSK Motor Exam: strength 5/5 throughout, ROM to foot and ankle joints within normal limits Psych Appearance: appropriate Attitude: calm Debridement Note Debridement Note Wound debrided: Fourth toe amputated area ulcer Laterality: Left Wound Grade/Stage: Luciano 3 Type of Debridement: Excisional debridement Anesthesia Used: 5% Lidocaine Gel Depth: Down to and including healthy tissue and in the subcutaneous layer Percentage of wound debrided: 100 Instrument Used: 5mm curette Tissue Removed: Slough fibrin devitalized tissue Severity: Fat Layer Exposed Amount of bleeding with debridement: Mild Bleeding Controlled with: Compression and gauze Patient tolerated procedure: Patient tolerated procedure well Post-Debridement Measurements and Additional Note: Post-Debridement Measu rements/Treatment - Nurse 1 - General Ulcer Assessment Start: 02/26/21 11:54 Freq: Status: Active Protocol: ESVIN Activity Type Activity Date Activity User E-Sign Co-Sign Detail Recorded Client Recorded Date Recorded By Document 02/26/21 11:55 JF [id number] 02/26/21 11:58 JF Document 03/05/21 09:04 BM Desktop 03/05/21 09:11 BMF Document 03/12/21 09:05 MW [id number] 03/12/21 09:13 MW Document 03/20/21 09:02 ML [id number] 03/20/21 09:06 ML 02/26/21 03/05/21 03/12/21 11:55 09:04 09:05 - Today's Visit Information Type of service Nurse-only Follow-up Visit Follow-up Visit Visit (Physician/PRINCIPAL DEVELOPER (Physician/PRINCIPAL DEVELOPER ) ) Arrival Mode Ambulatory,Cane Ambulatory,Cane Ambulatory,Cane Transfer Assistance None None Accompanied by grand daughter Patient Identification Verified (Name & Yes Yes ) Patient Requires Transmission-Based No No No Precautions Safety Precautions NA Height and Weight Body Mass Index (BMI) 23.5 23.5 23.5 BMI Classification Normal Normal Normal Vital Signs Temperature (97.8 F-99.1 F) 96.6 F L 96.6 F L 96.5 F L Temperature Source Temporal Temporal Temporal Pulse Rate (60-100) 75 63 65 Pulse Location Monitor Monitor Monitor Respiratory Rate (12-18) 16 16 16 Respiratory rate source Observation Observation Observation Oxygen Delivery Method Room Air Room Air Blood Pressure (90/60-120/80) 106/75 155/36 H 116/62 Blood Pressure Mean 85 75 80 Source Monitor Monitor Monitor Position Sitting Sitting Sitting Blood Pressure Location Left Arm Left Arm Right Arm Have you changed medications since your No No last visit? Any new allergies or adverse reactions No No Had a fall/change in ADL's that may No No increase risk of falls Signs or symptoms of abuse and/or No No neglect since last visit Have you been in the hospital since your No No last visit? Has dressing in place as prescribed Yes Yes Has compression in place as prescribed Yes Yes Has offloadiing in place as prescribed N/A N/A Experienced any changes in pain level or No No management History Since Last Visit- (Skip if this is Patient's initial visit) Left Footwear Surgical Shoe Surgical Shoe Surgical Shoe with pressure with pressure with pressure relief insole relief insole relief insole Right Footwear Regular Shoe Regular Shoe Regular Shoe Pain Scale: 0-10 Numeric Is Patient Pain Free? Yes Yes Yes 03/20/21 09:02 - Today's Visit Information Type of service Follow-up Visit (Physician/PRINCIPAL DEVELOPER ) Arrival Mode Ambulatory Transfer Assistance Accompanied by Patient Identification Verified (Name & Yes ) Patient Requires Transmission-Based No Precautions Safety Precautions NA Height and Weight Body Mass Index (BMI) 23.5 BMI Classification Normal Vital Signs Temperature (97.8 F-99.1 F) 96.7 F L Temperature Source Temporal Pulse Rate (60-100) 63 Pulse Location Monitor Respiratory Rate (12-18) 16 Respiratory rate source Observation Oxygen Delivery Method Blood Pressure (90/60-120/80) 162/54 H Blood Pressure Mean 90 Source Monitor Position Sitting Blood Pressure Location Left Arm Have you changed medications since your No last visit? Any new allergies or adverse reactions No Had a fall/change in ADL's that may No increase risk of falls Signs or symptoms of abuse and/or No neglect since last visit Have you been in the hospital since your No last visit? Has dressing in place as prescribed Yes Has compression in place as prescribed Yes Has offloadiing in place as prescribed N/A Experienced any changes in pain level or Yes management History Since Last Visit- (Skip if this is Patient's initial visit) Left Footwear Regular Shoe Right Footwear Surgical Shoe with pressure relief insole Pain Scale: 0-10 Numeric Is Patient Pain Free? WC - Nurse 1 - General Ulcer Measurement Start: 02/26/21 11:54 Freq: Status: Active Protocol: Activity Type Activity Date Activity User E-Sign Co-Sign Detail Recorded Client Recorded Date Recorded By Document 02/26/21 11:55 [id number] 02/26/21 11:58 JF Document 03/05/21 09:04 BM Desktop 03/05/21 09:11 BMF Document 03/12/21 09:05 MW [id number] 03/12/21 09:13 MW Document 03/20/21 09:02 ML [id number] 03/20/21 09:06 ML 02/26/21 03/05/21 03/12/21 11:55 09:04 09:05 Wound Center Nurse 1 #3 4th lateral toe/amp site -Combined with other wound No No No -Current Size (cm) - Length 1.6 1.8 2.0 -Current Size (cm) - Width 0.8 0.8 0.8 -Current Size (cm) - Depth 0.5 0.5 0.7 -Total Square Cm 1.28 1.44 1.60 -Photo Taken No No No -Epithelialization Small 1-33% None Present None Present -Tunneling No No No -Undermining/Tunneling No No No -Circular Undermining No No No -Exudate Amt Small Medium Small -Exudate Type Serosanguineous Serosanguineous Serosanguineous -Wound Margin Flat & Intact Distinct, Thickened Outline Attached -Granulation Amt Medium (34-66%) Large (67-100%) Small (1-33%) -Granulation Quality Pale Red [place] -Slough/Fibrin Yes Yes Yes -Necrosis Amt Small (1-33%) Small (1-33%) Large (67-100%) -Necrotic Tissue Type Adherent Slough Adherent Slough Adherent Slough -Structure Exposed N/A N/A -Texture (Dot-wound Skin Appearance) No Abnormality Assessed, Assessed, Scarring Scarring -Moisture (Dot-wound Skin Appearance) Assessed Assessed Assessed, Maceration -Color (Dot-wound Skin Appearance) Assessed Assessed, Assessed, Erythema Erythema -Temperature (Dot-wound Skin No Abnormality No Abnormality No Abnormality Appearance) (Pt Warm) (Pt Warm) (Pt Warm) -Tenderness on Palpation (Dot-wound No Yes No Skin Appearance) -Ulcer Cleansing Wound Cleanser Rinsed/ Rinsed/ Irrigated with Irrigated with Saline Saline -Foul Odor after Cleansing No No No -Anesthetic Used 5% Lidocaine 5% Lidocaine Gel Gel #2 L 5th toe AMP site -Combined with other wound No No No -Current Size (cm) - Length 1 1 1.0 -Current Size (cm) - Width 0.8 0.6 0.9 -Current Size (cm) - Depth 0.6 0.3 0.2 -Total Square Cm 0.8 0.6 0.90 -Photo Taken No No No -Epithelialization None Present None Present None Present -Tunneling No No No -Undermining/Tunneling No No No -Circular Undermining No No -Exudate Amt Medium Medium Small -Exudate Type Sanguineous Serosanguineous Serosanguineous -Wound Margin Flat & Intact Distinct, Thickened Outline Attached -Granulation Amt Large (67-100%) Small (1-33%) Large (67-100%) -Granulation Quality Red [place] -Slough/Fibrin Yes Yes Yes -Necrosis Amt Small (1-33%) Large (67-100%) Small (1-33%) -Necrotic Tissue Type Adherent Slough Adherent Slough Adherent Slough -Structure Exposed Bone N/A -Texture (Dot-wound Skin Appearance) Assessed, Assessed, Assessed, Localized Edema Scarring Scarring -Moisture (Dot-wound Skin Appearance) Assessed,Dry/ Assessed Assessed, Scaly Maceration -Color (Dot-wound Skin Appearance) Assessed Assessed, Assessed, Erythema Erythema -Temperature (Dot-wound Skin No Abnormality No Abnormality No Abnormality Appearance) (Pt Warm) (Pt Warm) (Pt Warm) -Tenderness on Palpation (Dot-wound No Yes Yes Skin Appearance) -Ulcer Cleansing Wound Cleanser Rinsed/ Rinsed/ Irrigated with Irrigated with Saline Saline -Foul Odor after Cleansing No No No -Anesthetic Used 5% Lidocaine 5% Lidocaine Gel Gel #1 L Grt Toe -Combined with other wound No No No -Current Size (cm) - Length 0.1 0.1 2.2 -Current Size (cm) - Width 0.1 0.1 0.2 -Current Size (cm) - Depth 0.1 0.1 0.2 -Total Square Cm 0.01 0.01 0.44 -Photo Taken No No No -Epithelialization Large 67-100% Large 67-100% None Present -Tunneling No No No -Undermining/Tunneling No No No -Circular Undermining No No Yes -Exudate Amt None Present None Present Small -Exudate Type Serosanguineous -Wound Margin Indistinct, Non Flat & Intact -Visible -Granulation Amt None Present (0 None Present (0 %) %) -Granulation Quality N/A -Slough/Fibrin Yes Yes -Necrosis Amt Large (67-100%) Large (67-100%) -Necrotic Tissue Type Adherent Slough -Structure Exposed N/A N/A -Texture (Dot-wound Skin Appearance) Assessed, Callus,Scarring Assessed, Localized Edema Localized Edema -Moisture (Dot-wound Skin Appearance) Assessed,Dry/ Assessed,Dry/ Assessed,Dry/ Scaly Scaly Scaly -Color (Dot-wound Skin Appearance) Assessed Assessed No Abnormality, Assessed -Temperature (Dot-wound Skin No Abnormality No Abnormality No Abnormality Appearance) (Pt Warm) (Pt Warm) (Pt Warm) -Tenderness on Palpation (Dot-wound No No No Skin Appearance) -Ulcer Cleansing Wound Cleanser Rinsed/ Rinsed/ Irrigated with Irrigated with Saline Saline -Foul Odor after Cleansing No No No -Anesthetic Used 5% Lidocaine 5% Lidocaine Gel Gel Lower Limb Edema Present Yes Yes No Left Calf (cm) 30.5 Left Ankle (cm) 22 03/20/21 09:02 Wound Center Nurse 1 #3 4th lateral toe/amp site -Combined with other wound -Current Size (cm) - Length 1 -Current Size (cm) - Width 0.8 -Current Size (cm) - Depth 0.2 -Total Square Cm 0.8 -Photo Taken -Epithelialization -Tunneling -Undermining/Tunneling -Circular Undermining -Exudate Amt Medium -Exudate Type Serosanguineous -Wound Margin Distinct, Outline Attached -Granulation Amt Medium (34-66%) -Granulation Quality [place] -Slough/Fibrin Yes -Necrosis Amt Medium (34-66%) -Necrotic Tissue Type Adherent Slough -Structure Exposed -Texture (Dot-wound Skin Appearance) Assessed -Moisture (Dot-wound Skin Appearance) Assessed -Color (Dot-wound Skin Appearance) Assessed -Temperature (Dot-wound Skin No Abnormality Appearance) (Pt Warm) -Tenderness on Palpation (Dot-wound No Skin Appearance) -Ulcer Cleansing Rinsed/ Irrigated with Saline -Foul Odor after Cleansing No -Anesthetic Used 5% Lidocaine Gel #2 L 5th toe AMP site -Combined with other wound -Current Size (cm) - Length 1 -Current Size (cm) - Width 1 -Current Size (cm) - Depth 0.2 -Total Square Cm 1 -Photo Taken -Epithelialization -Tunneling -Undermining/Tunneling -Circular Undermining -Exudate Amt Medium -Exudate Type Serosanguineous -Wound Margin Distinct, Outline Attached -Granulation Amt Medium (34-66%) -Granulation Quality -Slough/Fibrin -Necrosis Amt Medium (34-66%) -Necrotic Tissue Type Adherent Slough -Structure Exposed -Texture (Dot-wound Skin Appearance) Assessed -Moisture (Dot-wound Skin Appearance) Assessed -Color (Dot-wound Skin Appearance) Assessed -Temperature (Dot-wound Skin No Abnormality Appearance) (Pt Warm) -Tenderness on Palpation (Dot-wound No Skin Appearance) -Ulcer Cleansing Rinsed/ Irrigated with Saline -Foul Odor after Cleansing No -Anesthetic Used 5% Lidocaine Gel #1 L Grt Toe -Combined with other wound -Current Size (cm) - Length 0.1 -Current Size (cm) - Width 0.1 -Current Size (cm) - Depth 0.1 -Total Square Cm 0.01 -Photo Taken -Epithelialization -Tunneling -Undermining/Tunneling -Circular Undermining -Exudate Amt Medium -Exudate Type Serosanguineous -Wound Margin Distinct, Outline Attached -Granulation Amt Medium (34-66%) -Granulation Quality -Slough/Fibrin Yes -Necrosis Amt Medium (34-66%) -Necrotic Tissue Type Adherent Slough -Structure Exposed -Texture (Dot-wound Skin Appearance) Assessed -Moisture (Dot-wound Skin Appearance) Assessed -Color (Dot-wound Skin Appearance) Assessed -Temperature (Dot-wound Skin No Abnormality Appearance) (Pt Warm) -Tenderness on Palpation (Dot-wound No Skin Appearance) -Ulcer Cleansing Rinsed/ Irrigated with Saline -Foul Odor after Cleansing No -Anesthetic Used 5% Lidocaine Gel Lower Limb Edema Present Left Calf (cm) Left Ankle (cm) WC - Nurse 2 - General Ulcer CM Notes Start: 02/26/21 11:54 Freq: Status: Active Protocol: Activity Type Activity Date Activity User E-Sign Co-Sign Detail Recorded Client Recorded Date Recorded By Document 03/05/21 09:31 [id number] 03/05/21 09:49 Document 03/12/21 09:27 JF [id number] 03/12/21 09:42 JF Document 03/20/21 09:29 MW [id number] 03/20/21 09:36 MW 03/05/21 03/12/21 03/20/21 09:31 09:27 09:29 Wound Center Nurse 2 #3 4th lateral toe/amp site -Time 09:32 09:30 -Correct Patient Yes No Yes -Correct Side, Site, Position Yes No Yes -Correct Procedure Yes No Yes -Procedure Performed Yes No Yes -Type of Procedure Debridement Debridement -Clinical Debridement Muscle / Fascia Subcutaneous -Tissue Removed Fascia Subcutaneous -Post Debridement (cm) - Length 1.8 1.5 -Post Debridement (cm) - Width 1.9 0.7 -Post Debridement (cm) - Depth 0.8 0.7 -Total Square (Post) (cm) 3.42 1.05 -Area of Debridement (cm) - Length 1.8 1.5 -Area of Debridement (cm) - Width 1.9 0.7 -Total Square (Area) (cm) 3.42 1.05 -Tunneling No No -Undermining/Tunneling No No -Circular Undermining No No -Wound/Ulcer Outcome Not Healed Not Healed Not Healed -Ulcer Cleansing Rinsed/ Rinsed/ Irrigated with Irrigated with Saline Saline -Foul Odor after Cleansing No No -Bioengineered Tissue No No -Bleeding Controlled with Pressure Pressure -Offloading Yes No -Type of Offloading Surgical Shoe -Treatment Response Procedure Tolerated Well -Debridement - Subq, 1st 20sq cm Yes -Debridement - Muscle / Fascia, 1st Yes 20sq cm #2 L 5th toe AMP site -Time 09:31 -Correct Patient Yes No Yes -Correct Side, Site, Position Yes No Yes -Correct Procedure Yes No Yes -Procedure Performed Yes No Yes -Type of Procedure Debridement Debridement -Clinical Debridement Bone Subcutaneous -Tissue Removed Fascia Subcutaneous -Post Debridement (cm) - Length 1 0.8 -Post Debridement (cm) - Width 1 0.5 -Post Debridement (cm) - Depth 0.2 0.2 -Total Square (Post) (cm) 1 0.40 -Area of Debridement (cm) - Length 1 0.8 -Area of Debridement (cm) - Width 1 0.5 -Total Square (Area) (cm) 1 0.40 -Tunneling No No -Undermining/Tunneling No No -Circular Undermining No No -Wound/Ulcer Outcome Not Healed Not Healed Not Healed -Ulcer Cleansing Rinsed/ Rinsed/ Irrigated with Irrigated with Saline Saline -Foul Odor after Cleansing No No -Bioengineered Tissue No No -Bleeding Controlled with Pressure Pressure -Offloading Yes No -Type of Offloading Knee Walker -Treatment Response Procedure Tolerated Well -Debridement - Subq, 1st 20sq cm No -Debridement - Bone, 1st 20sq cm Yes #1 L Grt Toe -Time 09:29 -Correct Patient Yes No Yes -Correct Side, Site, Position Yes No Yes -Correct Procedure Yes No Yes -Procedure Performed Yes No No -Type of Procedure Debridement -Clinical Debridement Muscle / Fascia -Tissue Removed Fascia -Post Debridement (cm) - Length 0.4 0 -Post Debridement (cm) - Width 0.2 0 -Post Debridement (cm) - Depth 0.1 0 -Total Square (Post) (cm) 0.08 0 -Area of Debridement (cm) - Length 0.4 -Area of Debridement (cm) - Width 0.2 -Total Square (Area) (cm) 0.08 -Tunneling No -Undermining/Tunneling No -Circular Undermining No -Wound/Ulcer Outcome Not Healed Not Healed Healed- Epithelialized -Ulcer Cleansing Rinsed/ Irrigated with Saline -Foul Odor after Cleansing No -Bioengineered Tissue No -Bleeding Controlled with Pressure -Offloading Yes -Type of Offloading Surgical Shoe -Treatment Response Procedure Tolerated Well -Debridement - Muscle / Fascia, 1st No 20sq cm Pain Scale: 0-10 Numeric Is Patient Pain Free? Yes Yes Yes WC - Nurse 3 - General Ulcer D/C NN Start: 02/26/21 11:54 Freq: Status: Active Protocol: Activity Type Activity Date Activity User E-Sign Co-Sign Detail Recorded Client Recorded Date Recorded By Document 02/26/21 11:55 JF [id number] 02/26/21 11:58 JF Document 03/05/21 09:53 MW Desktop 03/05/21 09:55 MW Document 03/12/21 09:45 MW [id number] 03/12/21 09:48 MW Document 03/20/21 09:39 MW [id number] 03/20/21 09:40 MW 02/26/21 03/05/21 03/12/21 11:55 09:53 09:45 Vital Signs Temperature (97.8 F-99.1 F) 96.6 F L Temperature Source Temporal Pulse Rate (60-100) 75 Pulse Location Monitor Respiratory Rate (12-18) 16 Respiratory rate source Observation Blood Pressure (90/60-120/80) 106/75 Blood Pressure Mean 85 Source Monitor Position Sitting Blood Pressure Location Left Arm Pain Scale: 0-10 Numeric Is Patient Pain Free? Yes Yes Yes Teaching: Wound Center Dressing Your Wound -Person Taught Patient,Family Patient,Family -Teaching Method Discussion Discussion, Demonstration -Response to teaching Verbalize Verbalize understanding understanding Wound Care Nurse 3 #3 4th lateral toe/amp site -Ulcer Cleansing Soap and Water Not Cleansed Rinsed/ Irrigated with Saline -Foul Odor after Cleansing No No -Negative Pressure Wound Therapy N/A N/A -Primary Dressing Applied Aquacel AG 4x4 Aquacel AG 4x4 Silvercel -Primary Dressing Covered/Secured with Dry Gauze & Dry Gauze & Dry Gauze & Roll Gauze, Roll Gauze, Roll Gauze, Secured with Secured with Secured with Tape Tape Tape -Aquacel Extra -Aquacel AG 4x4 1 1 -Silvercel 1 #2 L 5th toe AMP site -Ulcer Cleansing Rinsed/ Rinsed/ Rinsed/ Irrigated with Irrigated with Irrigated with Saline Saline Saline -Foul Odor after Cleansing No No No -Negative Pressure Wound Therapy N/A N/A -Primary Dressing Applied Aquacel AG 4x4 -Other Dressing aquacel ag silvercel -Primary Dressing Covered/Secured with Dry Gauze & Dry Gauze & Dry Gauze & Roll Gauze, Roll Gauze, Roll Gauze, Secured with Secured with Secured with Tape Tape Tape -Aquacel AG 4x4 0 #1 L Grt Toe -Ulcer Cleansing Soap and Water Rinsed/ Rinsed/ Irrigated with Irrigated with Saline Saline -Foul Odor after Cleansing No No -Negative Pressure Wound Therapy N/A N/A -Primary Dressing Applied Aquacel AG 4x4 -Other Dressing aquacel ag silvercel -Primary Dressing Covered/Secured with Dry Gauze & Dry Gauze & Dry Gauze & Roll Gauze, Roll Gauze, Roll Gauze, Secured with Secured with Secured with Tape Tape Tape -Aquacel AG 4x4 0 Left -Lotion applied to leg before Yes No compression wrap -Compression Wrap Pedro Wrap Pedro Wrap -Other pedro wrap loosely to secure dressing Treatment Response Procedure Procedure Tolerated Well Tolerated Well WC - Visit Discharge Discharge Condition Stable Stable Stable Ambulatory Status Ambulatory,Cane Ambulatory,Cane Ambulatory,Cane Transportation Private Auto Private Auto Private Auto Accompanied by daughter grand daughter Medication Reconcilliation completed & Yes No No provided to patient/care provider Clinical Summary of Care Provided Yes Yes Yes 03/20/21 09:39 Vital Signs Temperature (97.8 F-99.1 F) Temperature Source Pulse Rate (60-100) Pulse Location Respiratory Rate (12-18) Respiratory rate source Blood Pressure (90/60-120/80) Blood Pressure Mean Source Position Blood Pressure Location Pain Scale: 0-10 Numeric Is Patient Pain Free? Yes Teaching: Wound Center Dressing Your Wound -Person Taught Patient -Teaching Method Discussion, Demonstration -Response to teaching Verbalize understanding Wound Care Nurse 3 #3 4th lateral toe/amp site -Ulcer Cleansing Rinsed/ Irrigated with Saline -Foul Odor after Cleansing No -Negative Pressure Wound Therapy N/A -Primary Dressing Applied Aquacel Extra -Primary Dressing Covered/Secured with Dry Gauze & Roll Gauze, Secured with Tape -Aquacel Extra 1 -Aquacel AG 4x4 -[place]cel #2 L 5th toe AMP site -Ulcer Cleansing -Foul Odor after Cleansing -Negative Pressure Wound Therapy -Primary Dressing Applied -Other Dressing -Primary Dressing Covered/Secured with -Aquacel AG 4x4 #1 L Grt Toe -Ulcer Cleansing -Foul Odor after Cleansing -Negative Pressure Wound Therapy -Primary Dressing Applied -Other Dressing -Primary Dressing Covered/Secured with -Aquacel AG 4x4 Left -Lotion applied to leg before No compression wrap -Compression Wrap Pedro Wrap -Other Treatment Response Procedure Tolerated Well WC - Visit Discharge Discharge Condition Stable Ambulatory Status Ambulatory,Cane Transportation Private Auto Accompanied by SELF Medication Reconcilliation completed & No provided to patient/care provider Clinical Summary of Care Provided Yes Additional Wound Wound debrided: Fifth digit amputation ulcer Laterality: Left Wound Grade/Stage: Luciano 3 Type of Debridement: Excisional debridement Anesthesia Used: 5% Lidocaine Gel Depth: Down to and including healthy tissue and in the subcutaneous layer Percentage of wound debrided: 100 Instrument Used: 5mm curette Tissue Removed: Slough fibrin devitalized tissue Severity: Fat Layer Exposed Amount of bleeding with debridement: Mild Bleeding Controlled with: Compression and gauze Patient tolerated procedure: Patient tolerated procedure well Lab / Micro Data Attestation: I reviewed the patient's lab results. Assessment/Plan Assessment/Plan (1) Ulcer of left foot with bone involvement without evidence of necrosis: CODE(S): L97.526 - 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 without evidence of necrosis PLAN: Wash left foot with antibacterial soap apply Aquacel extra to wound bases moistened cover with Adaptic gauze and tape AmLactin cream to the dry areas of the foot and ankle area. 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 Nicholson or visits
--- NOTE | 2021-03-20 12:01 | PCM.CONHBO ---
Assessment & Plan Assessment/Plan (1) Osteomyelitis: QUALIFIERS: Osteomyelitis type: subacute Osteomyelitis location: foot Laterality: left Qualified Code(s): M86.272 - Subacute osteomyelitis, left ankle and foot PLAN: Patient has already had chest x-ray and lab work and was discussed to use HBO at 2 [facility] for 90 minutes each day for 30 days Patient appears to be agreeable all will be pending until patient at least gets her Ears cleaned of wax. 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 Nicholson for her PAD and PVD History of Present Illness Date of Service: 03/20/21 Chief Complaint: Left foot first digit ulceration Left fourth and fifth digit amputation site ulceration PAD History of Wound: Patient had intervention done by Dr. Nicholson on 06/12/2020. Patient saw Dr. Tenorio June 26, 2020 and was started on 100mg gabapentin TID. She has noticed some improvement in her pain. Patient had further intervention with Dr. Nicholson on October 11, 2020. Patient relates having to be transferred to [facility] for this. 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 Amputation of 4th digit with debridement of 1st and 5th digit ulcerations was performed 07/08/20. 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 Patient underwent left fifth digit amputation with attempted delayed closure of fourth digit amputation site ulceration and with application of amnio fix grafting to all sites by Dr. López on 01/03/2021. The attempt for delayed primary closure of the previous fourth digit amputation site ulceration was not successful and ulceration here remains. Cultures at this time are also positive for Pseudomonas. 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 Cultures from 02/05/2021 were also positive for Pseudomonas. Patient has had multiple rounds of antibiotics and consultation with infectious disease over this infection. Patient is noted to have return of vascular symptom complaints especially to left lower extremity. She has appointment with Dr. Nicholson for reassessment with the understanding she might need possible further intervention. Patient continues care at the wound care center for remaining left foot wounds. Patient is noted to have been approved for TheraSkin but was not fully covered and would not be able to cover the remaining financial expense. Patient has had other modalities of treatment to include HBO therapy. [facility] Medical History Ambulates with cane Arthritis Atherosclerotic heart disease of [place] coronary artery without angina pectoris BBB (bundle branch block) Cardiology follow-up encounter Carotid stenosis, bilateral Carotid stenosis, bilateral Diabetes Easy bruising Essential hypertension Former smoker HTN (hypertension) Hyperlipidemia Injury of head and neck Osteoarthritis PAD (peripheral artery disease) Peripheral arterial occlusive disease Presence of stent in coronary artery (~07/04/11) Prolapsed bladder RBBB (right bundle branch block) Shortness of breath on exertion TIA (transient ischemic attack) Type 2 diabetes mellitus Wears dentures Home Medications aspirin 81 mg PO QHS 06/07/16 [History Last Taken 01/03/21 06:00] clopidogrel 75 mg PO DAILY 06/07/16 [History Last Taken 01/03/21 06:00] coenzyme Q10 10 mg capsule 10 mg PO DAILY 01/11/19 [History Last Taken 06/12/20] nitroglycerin 0.4 mg sublingual tablet 0.4 mg SUBLINGUAL Q5-15M 01/11/19 [History Last Taken Unknown] multivitamin 1 tab PO DAILY 04/28/19 [History Last Taken 06/12/20] omega-3 fatty acids 1,000 mg capsule 1,000 mg PO DAILY 04/28/19 [History Last Taken 06/12/20] cholecalciferol (vitamin D3) 50 mcg (2,000 unit) capsule 50 mcg PO DAILY 11/02/19 [History Last Taken 06/12/20] amlodipine 5 mg PO DAILY 07/07/20 [History Last Taken 01/03/21 06:00] acetaminophen 325 mg PO Q6H PRN 12/31/20 [History Last Taken Unknown] metformin 500 mg PO DAILY 12/31/20 [History Last Taken Unknown] lisinopril 20 mg tablet 20 mg PO BID 01/01/21 [History Last Taken Unknown] metoprolol tartrate 25 mg tablet 25 mg PO TID tab 01/01/21 [History Last Taken 01/03/21 06:00] cephalexin 500 mg PO BID #14 cap 01/03/21 [Rx Last Taken Unknown] oxycodone-acetaminophen 1 tab PO Q8H PRN 4 Days #12 tab 01/03/21 [Rx Last Taken Unknown] oxycodone-acetaminophen 1 tab PO Q8H PRN 5 Days #14 tab 01/10/21 [Rx Last Taken Unknown] levofloxacin 750 mg PO DAILY 7 Days #7 tab 02/05/21 [Rx Last Taken Unknown] levofloxacin 500 mg PO DAILY #7 tab 03/12/21 [Rx Last Taken Unknown] Allergy/AdvReac Type Severity Reaction Status Date / Time pravastatin AdvReac Severe myalgias Verified 01/03/21 09:07 Sulfa (Sulfonamide AdvReac Mild stomach Verified 01/03/21 09:07 Antibiotics) upset atorvastatin AdvReac myalgias Verified 01/03/21 09:07 Family History Father Diabetes Heart disease Brother Diabetes Colon cancer Brother Diabetes Surgical History Cataract extraction status of right eye History of colonoscopy History of heart artery stent History of hemorrhoidectomy History of hysterectomy History of left-sided carotid endarterectomy History of tonsillectomy Presence of coronary angioplasty implant and graft (~07/04/11) Status post peripheral artery angioplasty Social History Smoking Status: Former smoker alcohol intake: current details: social substance use type: does not use caffeine: Yes what type of physical activity do you participate in: walking seatbelt use: always do you feel safe at home: Yes ROS Integumentary Integumentary: Reports systems reviewed and no addt'l complaints, except as documented and as per HPI Physical Exam Physical Exam Const oriented x3 General Appearance: cooperative Exam Limitations: no limitations HEENT normocephalic and external ears normal HEENT Narrative: Needs earwax removal unable to see TMs Head and Scalp: normal to inspection Face and Sinus: normal facial exam Nose: external nose normal General Ear: hearing grossly impaired External Ear: external ears normal Mouth: oral and palatal mucosa normal Eyes PERRL General Eye: normal appearance of both eyes Neck full ROM General: normal visual inspection Resp normal respiratory effort Effort and Inspection: able to speak in complete sentences Auscultation: clear to auscultation bilaterally Cardio regular rate and regular rhythm Palpation: normal PMI Rate: regular rate Rhythm: regular rhythm GI Auscultation: normoactive bowel sounds Palpation: soft and no hepatosplenomegaly external exam normal Back/Spine Cervical Spine: cervical ROM normal Thoracic Spine / Upper Back: normal to inspection Lumbar Spine / Lower Back: normal to inspection Extremity normal to inspection General Extremity: normal exam except as noted Skin no rashes or lesions noted Neuro oriented x3 Psych Appearance: grossly normal Speech: normal speech Thought Content: normal thought content Judgement: judgement good Nursing Assessment and Debridement Post-Debridement Measurements and Additional Note: Post-Debridement Measurements/Treatment - Nurse 1 - General Ulcer Assessment Start: 02/26/21 11:54 Freq: Status: Active Protocol: ESVIN Activity Type Activity Date Activity User E-Sign Co-Sign Detail Recorded Client Recorded Date Recorded By Document 03/20/21 09:02 ML [id number] 03/20/21 09:06 ML 03/20/21 09:02 - Today's Visit Information 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 service 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 ) Arrival Mode Ambulatory Patient Identification Verified (Name & Yes ) Patient Requires Transmission-Based No Precautions Safety Precautions NA Height and Weight Body Mass Index (BMI) 23.5 BMI Classification Normal Vital Signs Temperature (97.8 F-99.1 F) 96.7 F L Temperature Source Temporal Pulse Rate (60-100) 63 Pulse Location Monitor Respiratory Rate (12-18) 16 Respiratory rate source Observation Blood Pressure (90/60-120/80) 162/54 H Blood Pressure Mean 90 Source Monitor Position Sitting Blood Pressure Location Left Arm History Since Last Visit- (Skip if this is Patient's initial visit) Have you changed medications since your No last visit? Any new allergies or adverse reactions No Had a fall/change in ADL's that may No increase risk of falls Signs or symptoms of abuse and/or No neglect since last visit Have you been in the hospital since your No last visit? Has dressing in place as prescribed Yes Has compression in place as prescribed Yes Has offloadiing in place as prescribed N/A Experienced any changes in pain level or Yes management Left Footwear Regular Shoe Right Footwear Surgical Shoe with pressure relief insole WC - Nurse 1 - General Ulcer Measurement Start: 02/26/21 11:54 Freq: Status: Active Protocol: Activity Type Activity Date Activity User E-Sign Co-Sign Detail Recorded Client Recorded Date Recorded By Document 03/20/21 09:02 ML [id number] 03/20/21 09:06 ML 03/20/21 09:02 Wound Center Nurse 1 #3 4th lateral toe/amp site -Current Size (cm) - Length 1 -Current Size (cm) - Width 0.8 -Current Size (cm) - Depth 0.2 -Total Square Cm 0.8 -Exudate Amt Medium -Exudate Type Serosanguineous -Wound Margin Distinct, Outline Attached -Granulation Amt Medium (34-66%) -Granulation Quality [place] -Slough/Fibrin Yes -Necrosis Amt Medium (34-66%) -Necrotic Tissue Type Adherent Slough -Texture (Dot-wound Skin Appearance) Assessed -Moisture (Dot-wound Skin Appearance) Assessed -Color (Dot-wound Skin Appearance) Assessed -Temperature (Dot-wound Skin No Abnormality Appearance) (Pt Warm) -Tenderness on Palpation (Dot-wound No Skin Appearance) -Ulcer Cleansing Rinsed/ Irrigated with Saline -Foul Odor after Cleansing No -Anesthetic Used 5% Lidocaine Gel #2 L 5th toe AMP site -Current Size (cm) - Length 1 -Current Size (cm) - Width 1 -Current Size (cm) - Depth 0.2 -Total Square Cm 1 -Exudate Amt Medium -Exudate Type Serosanguineous -Wound Margin Distinct, Outline Attached -Granulation Amt Medium (34-66%) -Necrosis Amt Medium (34-66%) -Necrotic Tissue Type Adherent Slough -Texture (Dot-wound Skin Appearance) Assessed -Moisture (Dot-wound Skin Appearance) Assessed -Color (Dot-wound Skin Appearance) Assessed -Temperature (Dot-wound Skin No Abnormality Appearance) (Pt Warm) -Tenderness on Palpation (Dot-wound No Skin Appearance) -Ulcer Cleansing Rinsed/ Irrigated with Saline -Foul Odor after Cleansing No -Anesthetic Used 5% Lidocaine Gel #1 L Grt Toe -Current Size (cm) - Length 0.1 -Current Size (cm) - Width 0.1 -Current Size (cm) - Depth 0.1 -Total Square Cm 0.01 -Exudate Amt Medium -Exudate Type Serosanguineous -Wound Margin Distinct, Outline Attached -Granulation Amt Medium (34-66%) -Slough/Fibrin Yes -Necrosis Amt Medium (34-66%) -Necrotic Tissue Type Adherent Slough -Texture (Dot-wound Skin Appearance) Assessed -Moisture (Dot-wound Skin Appearance) Assessed -Color (Dot-wound Skin Appearance) Assessed -Temperature (Dot-wound Skin No Abnormality Appearance) (Pt Warm) -Tenderness on Palpation (Dot-wound No Skin Appearance) -Ulcer Cleansing Rinsed/ Irrigated with Saline -Foul Odor after Cleansing No -Anesthetic Used 5% Lidocaine Gel WC - Nurse 2 - General Ulcer CM Notes Start: 02/26/21 11:54 Freq: Status: Active Protocol: Activity Type Activity Date Activity User E-Sign Co-Sign Detail Recorded Client Recorded Date Recorded By Document 03/20/21 09:29 MW [id number] 03/20/21 09:36 MW 03/20/21 09:29 Wound Center Nurse 2 #3 4th lateral toe/amp site -Time 09:30 -Correct Patient Yes -Correct Side, Site, Position Yes -Correct Procedure Yes -Procedure Performed Yes -Type of Procedure Debridement -Clinical Debridement Subcutaneous -Tissue Removed Subcutaneous -Post Debridement (cm) - Length 1.5 -Post Debridement (cm) - Width 0.7 -Post Debridement (cm) - Depth 0.7 -Total Square (Post) (cm) 1.05 -Area of Debridement (cm) - Length 1.5 -Area of Debridement (cm) - Width 0.7 -Total Square (Area) (cm) 1.05 -Tunneling No -Undermining/Tunneling No -Circular Undermining No -Wound/Ulcer Outcome Not Healed -Ulcer Cleansing Rinsed/ Irrigated with Saline -Foul Odor after Cleansing No -Bioengineered Tissue No -Bleeding Controlled with Pressure -Offloading No -Debridement - Subq, 1st 20sq cm Yes #2 L 5th toe AMP site -Time 09:31 -Correct Patient Yes -Correct Side, Site, Position Yes -Correct Procedure Yes -Procedure Performed Yes -Type of Procedure Debridement -Clinical Debridement Subcutaneous -Tissue Removed Subcutaneous -Post Debridement (cm) - Length 0.8 -Post Debridement (cm) - Width 0.5 -Post Debridement (cm) - Depth 0.2 -Total Square (Post) (cm) 0.40 -Area of Debridement (cm) - Length 0.8 -Area of Debridement (cm) - Width 0.5 -Total Square (Area) (cm) 0.40 -Tunneling No -Undermining/Tunneling No -Circular Undermining No -Wound/Ulcer Outcome Not Healed -Ulcer Cleansing Rinsed/ Irrigated with Saline -Foul Odor after Cleansing No -Bioengineered Tissue No -Bleeding Controlled with Pressure -Offloading No -Treatment Response Procedure Tolerated Well -Debridement - Subq, 1st 20sq cm No #1 L Grt Toe -Time 09:29 -Correct Patient Yes -Correct Side, Site, Position Yes -Correct Procedure Yes -Procedure Performed No -Post Debridement (cm) - Length 0 -Post Debridement (cm) - Width 0 -Post Debridement (cm) - Depth 0 -Total Square (Post) (cm) 0 -Wound/Ulcer Outcome Healed- Epithelialized Pain Scale: 0-10 Numeric Is Patient Pain Free? Yes - Nurse 3 - General Ulcer D/C NN Start: 02/26/21 11:54 Freq: Status: Active Protocol: Activity Type Activity Date Activity User E-Sign Co-Sign Detail Recorded Client Recorded Date Recorded By Document 03/20/21 09:39 MW [id number] 03/20/21 09:40 MW 03/20/21 09:39 Wound Care Nurse 3 #3 4th lateral toe/amp site -Ulcer Cleansing Rinsed/ Irrigated with Saline -Foul Odor after Cleansing No -Negative Pressure Wound Therapy N/A -Primary Dressing Applied Aquacel Extra -Primary Dressing Covered/Secured with Dry Gauze & Roll Gauze, Secured with Tape -Aquacel Extra 1 Left -Lotion applied to leg before No compression wrap -Compression Wrap Pedro Wrap Treatment Response Procedure Tolerated Well Pain Scale: 0-10 Numeric Is Patient Pain Free? Yes Teaching: Wound Center Dressing Your Wound -Person Taught Patient -Teaching Method Discussion, Demonstration -Response to teaching Verbalize understanding WC - Visit Discharge Discharge Condition Stable Ambulatory Status Ambulatory,Cane Transportation Private Auto Accompanied by SELF Medication Reconcilliation completed & No provided to patient/care provider Clinical Summary of Care Provided Yes Medical Records Data Attestation: I reviewed the patient's medical records Lab / Micro Data Attestation: I reviewed the patient's lab results. Lab results narrative: Patient was found to be anemic at 10.7 she should discuss with her primary care doctor kidney functions were within normal limits. Patient is never had a colonoscopy. Patient had a hysterectomy in the past.
== END 2021-03-24 23:59 ==
LOC: WC 09:15
PROVIDERS: PCP Family Medicine; Referring Provider Podiatrist; Visit Provider Nurse Practitioner
DX: E11.621 Type 2 diabetes mellitus with foot ulcer (principal); L97.524 Non-pressure chronic ulcer of other part of left foot with necrosis of bone; E11.69 Type 2 diabetes mellitus with other specified complication; L97.522 Non-pressure chronic ulcer of other part of left foot with fat layer exposed; M86.272 Subacute osteomyelitis, left ankle and foot; E11.52 Type 2 diabetes mellitus with diabetic peripheral angiopathy with gangrene; I73.9 Peripheral vascular disease, unspecified; D64.9 Anemia, unspecified; M79.606 Pain in leg, unspecified; I77.9 Disorder of arteries and arterioles, unspecified; E78.5 Hyperlipidemia, unspecified; I10 Essential (primary) hypertension; I25.10 Atherosclerotic heart disease of native coronary artery without angina pectoris; M19.90 Unspecified osteoarthritis, unspecified site; Z79.4 Long term (current) use of insulin; Z79.82 Long term (current) use of aspirin; Z87.891 Personal history of nicotine dependence; Z95.5 Presence of coronary angioplasty implant and graft; Z86.73 Personal history of transient ischemic attack (TIA), and cerebral infarction without residual deficits
CPT/HCPCS: 11042; 11043; 11044; 36415; 71046; 80061; 82607; 82728; 83540; 83550; 84443; 85027; 85045; 87070; 87075; 87186; 87205; 88305; 88307; 88311; 99213; G0463

== ENCOUNTER → 2021-03-20 10:59 | Outpatient (CLI) | payer MEDICARE, SELFPAY ==
[2021-03-20 12:01] LABS: Hematocrit 35.8 % (37-47); Hemoglobin 11.2 g/dL (12.0-15.0); Mean Corp Hgb Conc 31.3 g/dL (32-36); Mean Corpuscular Hgb 27.2 pg (27.0-32.0); Mean Corpuscular Volume 86.9 fL (81-99); Mean Platelet Vol. 9.3 fl (6.2-12.0); Platelet Count 377 K/mm3 (150-450); RBC Distribution Width CV 15.2 % (11.6-14.6); RET-HE 32.8 pg (30-35); Red Blood Count 4.12 M/mm3 (4.2-5.4); Reticulocyte Count 1.51 % (0.5-1.5); White Blood Count 9.6 K/mm3 (4.4-11.0)
[2021-03-20 12:48] LABS: Cholesterol 178 mg/dL (200); Ferritin 9 ng/mL (8-252); High Density Lipoprotein 68 mg/dL; Iron 45 ug/dL (50-170); Iron Binding Capacity,Total 370 ug/dL (250-450); Thyroid Stim Hormone (TSH) 1.52 uIU/mL (0.358-3.74); Triglycerides 175 mg/dL; Very Low Density Lipoprotein 35 mg/dL (5-40)
[2021-03-20 13:37] LABS: Vitamin B12 1058 pg/mL (211-911)
== END ==
PROVIDERS: PCP Family Medicine; Referring Provider Family Medicine; Visit Provider Family Medicine
DX: D64.9 Anemia, unspecified (principal); E11.9 Type 2 diabetes mellitus without complications
CPT/HCPCS: 36415; 80061; 82607; 82728; 83540; 83550; 84443; 85027; 85045

== ENCOUNTER 2021-04-17 09:30 | Outpatient (RCR) | payer MEDICARE, SELFPAY ==
[2021-03-25 00:20] VITALS: BP 162/54; PULSE 63; RESP 16; TEMP 35.9; BMI 23.5
[2021-03-27 09:04] VITALS: BP 107/44; PULSE 63; RESP 16; TEMP 35.5; BMI 23.5
--- NOTE | 2021-03-27 09:46 | PN.PCM_ITS ---
History of Present Illness Date of Service: 03/27/21 Chief Complaint: Left foot first digit ulceration Left fourth and fifth digit amputation site ulceration PAD History of Wound: Patient had intervention done by Dr. Nicholson on 06/12/2020. Patient saw Dr. Tenorio June 26, 2020 and was started on 100mg gabapentin TID. She has noticed some improvement in her pain. Patient had further intervention with Dr. Nicholson on October 11, 2020. Patient relates having to be transferred to [facility] for this. 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 Amputation of 4th digit with debridement of 1st and 5th digit ulcerations was performed 07/08/20. 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 Patient underwent left fifth digit amputation with attempted delayed closure of fourth digit amputation site ulceration and with application of amnio fix grafting to all sites by Dr. López on 01/03/2021. The attempt for delayed primary closure of the previous fourth digit amputation site ulceration was not successful and ulceration here remains. Cultures at this time are also positive for Pseudomonas. 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 Cultures from 02/05/2021 were also positive for Pseudomonas. Patient has had multiple rounds of antibiotics and consultation with infectious disease over this infection. Patient is noted to have return of vascular symptom complaints especially to left lower extremity. She has appointment with Dr. Nicholson for reassessment with the understanding she might need possible further intervention. Patient continues care at the wound care center for remaining left foot wounds. Patient is noted to have been approved for Syndero but was not fully covered and would not be able to cover the remaining financial expense. Patient has had other modalities of treatment to include HBO therapy. Progress of Wound: The wounds of the fourth and fifth digit of the left foot are still the same size and depth. Patient is not good about debridement even though we lidocaine the area several times with topical ointments and sprays. Suggested patient scrub the foot better at home in the shower is much as possible. Recheck patient's ears had them cleaned yesterday at her Primary care doctor. Tolerated treatment well she is eligible now for HBO approved for 20 dives and may start next Thursday. Subjective Subjective Patient states she is trying to scrub it better in the shower which is good. Patient received orientation to the HBO chamber by our tach today and she answered all of her questions about what she can wear and not wear. Objective Data Objective Data The wound sites look clean without any signs of infection noted. Dried crusty slough in the base of the wounds and around the edges. Skin around the area is very dry and flaky. Does not tolerate a lot of debridement but was able to get some slough off we will try using Fibracol this week rather than the Aquacel extra. She had labs repeated at her primary care doctors and her hemoglobin was still even lower and she has been started on iron pills. Vital Signs: Vital Signs Temp Pulse Resp BP 96 F L 63 16 107/44 L 03/27/21 09:04 03/27/21 09:04 03/27/21 09:04 03/27/21 09:04 Oxygen Delivery Method Room Air Weight: 328 lb 7.82 oz Body Mass Index (BMI) 23.5 Lab / Micro Data Attestation: I reviewed the patient's lab results. Physical Exam Const oriented x3 General Appearance: cooperative Exam Limitations: no limitations HEENT normocephalic and external ears normal HEENT Narrative: Needs earwax removal unable to see TMs Head and Scalp: normal to inspection Face and Sinus: normal facial exam Nose: external nose normal General Ear: hearing grossly impaired External Ear: external ears normal Mouth: oral and palatal mucosa normal Eyes PERRL General Eye: normal appearance of both eyes Neck full ROM General: normal visual inspection Resp normal respiratory effort Effort and Inspection: able to speak in complete sentences Auscultation: clear to auscultation bilaterally Cardio regular rate and regular rhythm Palpation: normal PMI Rate: regular rate Rhythm: regular rhythm GI Auscultation: normoactive bowel sounds Palpation: soft and no hepatosplenomegaly external exam normal Back/Spine Cervical Spine: cervical ROM normal Thoracic Spine / Upper Back: normal to inspection Lumbar Spine / Lower Back: normal to inspection Extremity normal to inspection General Extremity: normal exam except as noted Skin no rashes or lesions noted Neuro oriented x3 Psych Appearance: grossly normal Speech: normal speech Thought Content: normal thought content Judgement: judgement good Debridement Note Debridement Note Wound debrided: Fourth digit left foot Type of Debridement: Excisional debridement Anesthesia Used: 5% Lidocaine Gel Depth: Down to and including healthy tissue Percentage of wound debrided: 60 Instrument Used: 5mm curette Tissue Removed: slough, devitalized tissue Severity: Limited To Skin Breakdown Amount of bleeding with debridement: None Bleeding Controlled with: Pressure Patient tolerated procedure: Patient tolerated procedure well Post-Debridement Measurements and Additional Note: Post-Debridement Measurements/Treatment - Nurse 1 - General Ulcer Assessment Start: 03/27/21 09:04 Freq: Status: Active Protocol: ESVIN Activity Type Activity Date Activity User E-Sign Co-Sign Detail Recorded Client Recorded Date Recorded By Document 03/27/21 09:04 [facility] [id number] 03/27/21 09:12 [facility] 03/27/21 09:04 WC - Today's Visit Information Type of service 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 ) Arrival Mode Ambulatory,Cane Transfer Assistance None Accompanied by daughter Patient Identification Verified (Name & Yes ) Patient Requires Transmission-Based No Precautions Height and Weight Body Mass Index (BMI) 23.5 BMI Classification Normal Vital Signs Temperature (97.8 F-99.1 F) 96 F L Temperature Source Temporal Pulse Rate (60-100) 63 Pulse Location Monitor Respiratory Rate (12-18) 16 Respiratory rate source Observation Oxygen Delivery Method Room Air Blood Pressure (90/60-120/80) 107/44 L Blood Pressure Mean (mm Hg) 65 Source Monitor Position Sitting Blood Pressure Location Right Arm History Since Last Visit- (Skip if this is Patient's initial visit) Have you changed medications since your No last visit? Any new allergies or adverse reactions No Had a fall/change in ADL's that may No increase risk of falls Signs or symptoms of abuse and/or No neglect since last visit Have you been in the hospital since your No last visit? Has dressing in place as prescribed Yes Has compression in place as prescribed Yes Has offloadiing in place as prescribed Yes Experienced any changes in pain level or No management Left Footwear Surgical Shoe with pressure relief insole Right Footwear Regular Shoe Pain Scale: 0-10 Numeric Is Patient Pain Free? Yes - Nurse 1 - General Ulcer Measurement Start: 03/27/21 09:04 Freq: Status: Active Protocol: Activity Type Activity Date Activity User E-Sign Co-Sign Detail Recorded Client Recorded Date Recorded By Document 03/27/21 09:04 [facility] [id number] 03/27/21 09:12 [facility] 03/27/21 09:04 Wound Center Nurse 1 #3 4th lateral toe/amp site -Combined with other wound No -Current Size (cm) - Length 2 -Current Size (cm) - Width 1 -Current Size (cm) - Depth 0.4 -Total Square Cm 2 -Epithelialization Small 1-33% -Tunneling No -Undermining/Tunneling No -Circular Undermining No -Exudate Amt Medium -Exudate Type Serosanguineous -Wound Margin Distinct, Outline Attached -Granulation Amt Small (1-33%) -Granulation Quality [place] -Slough/Fibrin Yes -Necrosis Amt Large (67-100%) -Necrotic Tissue Type Adherent Slough -Texture (Dot-wound Skin Appearance) Assessed, Scarring -Moisture (Dot-wound Skin Appearance) Assessed, Maceration,Dry/ Scaly -Color (Dot-wound Skin Appearance) Assessed, Erythema,Palor -Temperature (Dot-wound Skin No Abnormality Appearance) (Pt Warm) -Tenderness on Palpation (Dot-wound No Skin Appearance) -Ulcer Cleansing Rinsed/ Irrigated with Saline -Foul Odor after Cleansing No -Anesthetic Used 5% Lidocaine Gel #2 L 5th toe AMP site -Combined with other wound No -Current Size (cm) - Length 1 -Current Size (cm) - Width 0.6 -Current Size (cm) - Depth 0.3 -Total Square Cm 0.6 -Photo Taken No -Epithelialization None Present -Tunneling No -Undermining/Tunneling No -Circular Undermining No -Exudate Amt Medium -Exudate Type Serosanguineous -Wound Margin Distinct, Outline Attached -Granulation Amt Small (1-33%) -Granulation Quality Red -Slough/Fibrin Yes -Necrosis Amt Large (67-100%) -Necrotic Tissue Type Adherent Slough -Texture (Dot-wound Skin Appearance) Assessed, Scarring -Moisture (Dot-wound Skin Appearance) Assessed, Maceration,Dry/ Scaly -Color (Dot-wound Skin Appearance) Assessed, Erythema,Palor -Temperature (Dot-wound Skin No Abnormality Appearance) (Pt Warm) -Tenderness on Palpation (Dot-wound Yes Skin Appearance) -Ulcer Cleansing Rinsed/ Irrigated with Saline -Foul Odor after Cleansing No -Anesthetic Used 5% Lidocaine Gel #1 L Grt Toe -Combined with other wound No -Current Size (cm) - Length 0.7 -Current Size (cm) - Width 0.5 -Current Size (cm) - Depth 0.1 -Total Square Cm 0.35 -Photo Taken No -Epithelialization None Present -Tunneling No -Undermining/Tunneling No -Circular Undermining No -Exudate Amt Small -Exudate Type Serosanguineous -Wound Margin Distinct, Outline Attached -Granulation Amt None Present (0 %) -Slough/Fibrin Yes -Necrosis Amt Large (67-100%) -Necrotic Tissue Type Adherent Slough -Texture (Dot-wound Skin Appearance) Assessed, Scarring -Moisture (Dot-wound Skin Appearance) Assessed,Dry/ Scaly -Color (Dot-wound Skin Appearance) Assessed, Erythema -Temperature (Dot-wound Skin No Abnormality Appearance) (Pt Warm) -Tenderness on Palpation (Dot-wound Yes Skin Appearance) -Ulcer Cleansing Rinsed/ Irrigated with Saline -Foul Odor after Cleansing No -Anesthetic Used 5% Lidocaine Gel Lower Limb Edema Present Yes Left Calf (cm) 33.1 Left Ankle (cm) 23.5 WC - Nurse 2 - General Ulcer CM Notes Start: 03/27/21 09:04 Freq: Status: Active Protocol: Activity Type Activity Date Activity User E-Sign Co-Sign Detail Recorded Client Recorded Date Recorded By Document 03/27/21 09:16 MW [id number] 03/27/21 09:23 MW 03/27/21 09:16 Wound Center Nurse 2 #3 4th lateral toe/amp site -Time 09:18 -Correct Patient Yes -Correct Side, Site, Position Yes -Correct Procedure Yes -Procedure Performed Yes -Type of Procedure Debridement -Clinical Debridement Subcutaneous -Tissue Removed Subcutaneous -Post Debridement (cm) - Length 1.7 -Post Debridement (cm) - Width 1.0 -Post Debridement (cm) - Depth 0.4 -Total Square (Post) (cm) 1.70 -Area of Debridement (cm) - Length 1.7 -Area of Debridement (cm) - Width 1.0 -Total Square (Area) (cm) 1.70 -Tunneling No -Undermining/Tunneling No -Circular Undermining No -Wound/Ulcer Outcome Not Healed -Ulcer Cleansing Rinsed/ Irrigated with Saline -Foul Odor after Cleansing No -Bioengineered Tissue No -Bleeding Controlled with Pressure -Offloading No -Treatment Response Procedure Tolerated Well -Debridement - Subq, 1st 20sq cm Yes #2 L 5th toe AMP site -Time 09:19 -Correct Patient Yes -Correct Side, Site, Position Yes -Correct Procedure Yes -Procedure Performed Yes -Type of Procedure Debridement -Clinical Debridement Subcutaneous -Tissue Removed Subcutaneous -Post Debridement (cm) - Length 1.0 -Post Debridement (cm) - Width 0.6 -Post Debridement (cm) - Depth 0.2 -Total Square (Post) (cm) 0.60 -Area of Debridement (cm) - Length 1.0 -Area of Debridement (cm) - Width 0.6 -Total Square (Area) (cm) 0.60 -Tunneling No -Undermining/Tunneling No -Circular Undermining No -Wound/Ulcer Outcome Not Healed -Ulcer Cleansing Rinsed/ Irrigated with Saline -Foul Odor after Cleansing No -Bioengineered Tissue No -Bleeding Controlled with Pressure -Offloading No -Treatment Response Procedure Tolerated Well -Debridement - Subq, 1st 20sq cm No #1 L Grt Toe -Time 09:19 -Correct Patient Yes -Correct Side, Site, Position Yes -Correct Procedure Yes -Procedure Performed No -Post Debridement (cm) - Length 0 -Post Debridement (cm) - Width 0 -Post Debridement (cm) - Depth 0 -Total Square (Post) (cm) 0 -Wound/Ulcer Outcome Healed- Epithelialized Pain Scale: 0-10 Numeric Is Patient Pain Free? Yes WC - Nurse 3 - General Ulcer D/C NN Start: 03/27/21 09:04 Freq: Status: Active Protocol: Activity Type Activity Date Activity User E-Sign Co-Sign Detail Recorded Client Recorded Date Recorded By Document 03/27/21 09:37 [facility] [id number] 03/27/21 09:38 [facility] 03/27/21 09:37 Wound Care Nurse 3 #3 4th lateral toe/amp site -Ulcer Cleansing Rinsed/ Irrigated with Saline -Foul Odor after Cleansing No -Primary Dressing Applied Fibracol Plus 4x4 -Primary Dressing Covered/Secured with Dry Gauze & Roll Gauze, Secured with Tape -Fibracol Plus 4x4 1 #2 L 5th toe AMP site -Ulcer Cleansing Rinsed/ Irrigated with Saline -Foul Odor after Cleansing No -Primary Dressing Applied Fibracol Plus 4x4 -Primary Dressing Covered/Secured with Dry Gauze & Roll Gauze, Secured with Tape -Fibracol Plus 4x4 0 Left -Compression Wrap Pedro Wrap Treatment Response Procedure Tolerated Well Pain Scale: 0-10 Numeric Is Patient Pain Free? Yes WC - Visit Discharge Discharge Condition Stable Ambulatory Status Ambulatory,Cane Transportation Private Auto Accompanied by gr omero Facility Type Home Health Additional Wound Wound debrided: Fifth digit left foot amputated site Type of Debridement: Excisional debridement Anesthesia Used: 5% Lidocaine Gel Depth: Down to and including healthy tissue Percentage of wound debrided: 100 Instrument Used: 5mm curette Tissue Removed: Fibrin and devitalized tissue slough Severity: Limited To Skin Breakdown Amount of bleeding with debridement: Mild Bleeding Controlled with: Compression and gauze Patient tolerated procedure: Patient tolerated procedure well Assessment/Plan Assessment/Plan (1) Ulcer of left foot with bone involvement without evidence of necrosis: CODE(S): L97.526 - 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 without evidence of necrosis PLAN: Wash left foot with antibacterial soap apply Fibracol to wound bases moistened cover with gauze and tape AmLactin cream to the dry areas of the foot and ankle area. Wrap leg and Pedro wrap up to the knee Every day Follow-up in 1 week with another physician (2) Osteomyelitis: CODE(S): M86.9 - Osteomyelitis, unspecified QUALIFIERS: Osteomyelitis type: subacute Osteomyelitis location: foot Laterality: left Qualified Code(s): M86.272 - Subacute osteomyelitis, left ankle and foot PLAN: Approved for HBO 20 dives may start next Thursday ears are clear (3) Non-pressure chronic ulcer of other part of left foot with necrosis of bone: CODE(S): L97.524 - Non-pressure chronic ulcer of other part of left foot with necrosis of bone (4) Type 2 diabetes mellitus: CODE(S): E11.9 - Type 2 diabetes mellitus without complications QUALIFIERS: Diabetes mellitus usp insulin use: unspecified 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 Nicholson or visits
[2021-04-01 08:06] LABS: Bedside Glucose 182 mg/dL (70-110)
--- NOTE | 2021-04-01 09:27 | PCM.HBO.PN ---
History of Present Illness Date of Service: 04/01/21 Chief Complaint: Left foot first digit ulceration Left fourth and fifth digit amputation site ulceration PAD History of Wound: Patient had intervention done by Dr. Nicholson on 06/12/2020. Patient saw Dr. Tenorio June 26, 2020 and was started on 100mg gabapentin TID. She has noticed some improvement in her pain. Patient had further intervention with Dr. Nicholson on October 11, 2020. Patient relates having to be transferred to [facility] for this. 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 Amputation of 4th digit with debridement of 1st and 5th digit ulcerations was performed 07/08/20. 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 Patient underwent left fifth digit amputation with attempted delayed closure of fourth digit amputation site ulceration and with application of amnio fix grafting to all sites by Dr. López on 01/03/2021. The attempt for delayed primary closure of the previous fourth digit amputation site ulceration was not successful and ulceration here remains. Cultures at this time are also positive for Pseudomonas. 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 Cultures from 02/05/2021 were also positive for Pseudomonas. Patient has had multiple rounds of antibiotics and consultation with infectious disease over this infection. Patient is noted to have return of vascular symptom complaints especially to left lower extremity. She has appointment with Dr. Nicholson for reassessment with the understanding she might need possible further intervention. Patient continues care at the wound care center for remaining left foot wounds. Patient is noted to have been approved for [employer] but was not fully covered and would not be able to cover the remaining financial expense. Patient has had other modalities of treatment to include HBO therapy. Subjective Subjective Hyperbaric oxygen therapy was administered as per the facility's for protocol. Today's session represents the 1st session of a planned 20 such sessions. Hyperbaric oxygen therapy was planned for 2 kaylan for 90 minutes with no air breaks. She experienced ear pain within a few minutes of starting the treatment. She was pulled from the chamber, her vital signs remained stable. Blood sugars documented elsewhere. Objective Data Objective Data Vital Signs: Vital Signs Temp Pulse Resp BP 96 F L 63 16 107/44 L 03/27/21 09:04 03/27/21 09:04 03/27/21 09:04 03/27/21 09:04 Oxygen Delivery Method Room Air Weight: 328 lb 7.82 oz Body Mass Index (BMI) 23.5 Lab / Micro Data Labs: Laboratory Results - last 24 hr 04/01/21 08:03: POC Glucose 182 H Exam Physical Exam Const alert, oriented x3 and no apparent distress General Appearance: cooperative and comfortable HEENT normocephalic and TM's normal bilaterally Eyes General Eye: normal appearance of both eyes Neck General: normal visual inspection Chest Chest: symmetrical chest wall rise Resp normal respiratory effort and clear to auscultation bilaterally Effort and Inspection: able to speak in complete sentences Cardio regular rate and regular rhythm Assessment/Plan Assessment/Plan (1) Osteomyelitis: CODE(S): M86.9 - Osteomyelitis, unspecified QUALIFIERS: Osteomyelitis type: subacute Osteomyelitis location: foot Laterality: left Qualified Code(s): M86.272 - Subacute osteomyelitis, left ankle and foot PLAN: Experienced ear pain with initial hyperbaric oxygen therapy treatment of only a few minutes. Referred to clinical researcher. Would not attempt any additional dives until cleared by ENT.
[2021-04-01 09:41] LABS: Bedside Glucose 108 mg/dL (70-110)
[2021-04-01 10:23] VITALS: BP 102/51; PULSE 56; RESP 16; TEMP 36.2
[2021-04-03 10:19] VITALS: BP 145/38; PULSE 69; RESP 16; TEMP 36.4; BMI 23.5
--- NOTE | 2021-04-03 11:28 | PN.PCM_ITS ---
History of Present Illness Date of Service: 04/03/21 Chief Complaint: Left foot first digit ulceration Left fourth and fifth digit amputation site ulceration PAD History of Wound: Patient had intervention done by Dr. Nicholson on 06/12/2020. Patient saw Dr. Tenorio June 26, 2020 and was started on 100mg gabapentin TID. She has noticed some improvement in her pain. Patient had further intervention with Dr. Nicholson on October 11, 2020. Patient relates having to be transferred to [facility] for this. 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 Amputation of 4th digit with debridement of 1st and 5th digit ulcerations was performed 07/08/20. 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 Patient underwent left fifth digit amputation with attempted delayed closure of fourth digit amputation site ulceration and with application of amnio fix grafting to all sites by Dr. López on 01/03/2021. The attempt for delayed primary closure of the previous fourth digit amputation site ulceration was not successful and ulceration here remains. Cultures at this time are also positive for Pseudomonas. 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 Cultures from 02/05/2021 were also positive for Pseudomonas. Patient has had multiple rounds of antibiotics and consultation with infectious disease over this infection. Patient is noted to have return of vascular symptom complaints especially to left lower extremity. She has appointment with Dr. Nicholson for reassessment with the understanding she might need possible further intervention. Patient continues care at the wound care center for remaining left foot wounds. Patient is noted to have been approved for [employer] but was not fully covered and would not be able to cover the remaining financial expense. Patient has had other modalities of treatment to include HBO therapy. She is in the process of getting scheduled for more hyperbaric oxygen therapy sessions. She did have a revascularization procedure scheduled with Dr. Nicholson recently canceled it because she is getting overwhelmed with all of her recommendations. She is with her daughter today. She has been trying to offload with the surgical shoe that has offloading liners. She has been washing her foot better with soap and water as advised. Progress of Wound: Stable Objective Data Objective Data Vital Signs: Vital Signs Temp Pulse Resp BP 97.5 F L 69 16 145/38 H 04/03/21 10:19 04/03/21 10:19 04/03/21 10:19 04/03/21 10:19 Oxygen Delivery Method Room Air Weight: 149 kg Body Mass Index (BMI) 23.5 Physical Exam Const oriented x3 General Appearance: cooperative Back/Spine Cervical Spine: cervical ROM normal Extremity Extremity Narrative: no cyanosis, no calf tenderness, diminished pulses muscle wasting noted. no tenderness. Amputation lateral left forefoot No fluctuance or bogginess on palpation Skin Skin Narrative: no purulence, no erythema, no streaking, no odor, no infection. Adjacent skin is atrophic. There is return also to the hallux with granular fibrous base. The distal most lateral foot ulcer has a granular base. The distal most lateral ulcer has a granular base and also exposed bone that is removed during the debridement Neuro oriented x3 Neuro Narrative: lack of normal epicritic sensation via light touch consistent with neuropathy Psych Speech: normal speech Debridement Note Debridement Note Wound debrided: medial left hallux, left distal foot, left distal lateral foot Wound Grade/Stage: 1,1,3 Type of Debridement: Excisional debridement Anesthesia Used: 4% Lidocaine Solution Depth: in the subcutaneous layer (hallux and distal foot) and to bone (distal lateral foot) Percentage of wound debrided: 100 Instrument Used: #15 blade and Forceps Tissue Removed: fibrous, devitalized subcutaneous and bone, biofilm, slough Severity: Fat Layer Exposed Amount of bleeding with debridement: Mild Bleeding Controlled with: Pressure Patient tolerated procedure: Patient tolerated procedure well Post-Debridement Measurements and Additional Note: Post-Debridement Measurements/Treatment - Nurse 1 - General Ulcer Assessment Start: 03/27/21 09:04 Freq: Status: Active Protocol: .NORMA Activity Type Activity Date Activity User E-Sign Co-Sign Detail Recorded Client Recorded Date Recorded By Document 03/27/21 09:04 [facility] [id number] 03/27/21 09:12 [facility] Document 04/03/21 10:19 [facility] [id number] 04/03/21 10:33 [facility] 03/27/21 04/03/21 09:04 10:19 - Today's Visit Information Type of service Follow-up Visit Follow-up Visit (Physician/VALUE ANALYST (Physician/VALUE ANALYST ) ) Arrival Mode Ambulatory,Cane Ambulatory,Cane Transfer Assistance None None Accompanied by daughter daughter Patient Identification Verified (Name & Yes Yes ) Patient Requires Transmission-Based No No Precautions Height and Weight Body Mass Index (BMI) 23.5 23.5 BMI Classification Normal Normal Vital Signs Temperature (97.8 F-99.1 F) 96 F L 97.5 F L Temperature Source Temporal Temporal Pulse Rate (60-100) 63 69 Pulse Location Monitor Monitor Respiratory Rate (12-18) 16 16 Respiratory rate source Observation Observation Oxygen Delivery Method Room Air Room Air Blood Pressure (90/60-120/80) 107/44 L 145/38 H Blood Pressure Mean (mm Hg) 65 73 Source Monitor Monitor Position Sitting Sitting Blood Pressure Location Right Arm Left Arm History Since Last Visit- (Skip if this is Patient's initial visit) Have you changed medications since your No No last visit? Any new allergies or adverse reactions No No Had a fall/change in ADL's that may No No increase risk of falls Signs or symptoms of abuse and/or No No neglect since last visit Have you been in the hospital since your No No last visit? Has dressing in place as prescribed Yes Yes Has compression in place as prescribed Yes Yes Has offloadiing in place as prescribed Yes N/A Experienced any changes in pain level or No No management Left Footwear Surgical Shoe Surgical Shoe with pressure with pressure relief insole relief insole Right Footwear Regular Shoe Regular Shoe Pain Scale: 0-10 Numeric Is Patient Pain Free? Yes Yes WC - Nurse 1 - General Ulcer Measurement Start: 03/27/21 09:04 Freq: Status: Active Protocol: Activity Type Activity Date Activity User E-Sign Co-Sign Detail Recorded Client Recorded Date Recorded By Document 03/27/21 09:04 [facility] [id number] 03/27/21 09:12 [facility] Document 04/03/21 10:19 [facility] [id number] 04/03/21 10:33 [facility] 03/27/21 04/03/21 09:04 10:19 Wound Center Nurse 1 #3 4th lateral toe/amp site -Combined with other wound No No -Current Size (cm) - Length 2 1.3 -Current Size (cm) - Width 1 0.4 -Current Size (cm) - Depth 0.4 0.4 -Total Square Cm 2 0.52 -Photo Taken No -Epithelialization Small 1-33% None Present -Tunneling No No -Undermining/Tunneling No No -Circular Undermining No No -Exudate Amt Medium Medium -Exudate Type Serosanguineous -Wound Margin Distinct, Distinct, Outline Outline Attached Attached -Granulation Amt Small (1-33%) Small (1-33%) -Granulation Quality [place] -Slough/Fibrin Yes Yes -Necrosis Amt Large (67-100%) Large (67-100%) -Necrotic Tissue Type Adherent Slough Adherent Slough -Texture (Dot-wound Skin Appearance) Assessed, Assessed, Scarring Scarring -Moisture (Dot-wound Skin Appearance) Assessed, Assessed, Maceration,Dry/ Maceration Scaly -Color (Dot-wound Skin Appearance) Assessed, Assessed,Palor Erythema,Palor -Temperature (Dot-wound Skin No Abnormality No Abnormality Appearance) (Pt Warm) (Pt Warm) -Tenderness on Palpation (Dot-wound No No Skin Appearance) -Ulcer Cleansing Rinsed/ Rinsed/ Irrigated with Irrigated with Saline Saline -Foul Odor after Cleansing No No -Anesthetic Used 5% Lidocaine 5% Lidocaine Gel Gel #2 L 5th toe AMP site -Combined with other wound No No -Current Size (cm) - Length 1 0.7 -Current Size (cm) - Width 0.6 0.6 -Current Size (cm) - Depth 0.3 0.2 -Total Square Cm 0.6 0.42 -Photo Taken No No -Epithelialization None Present Small 1-33% -Tunneling No No -Undermining/Tunneling No No -Circular Undermining No No -Exudate Amt Medium Medium -Exudate Type Serosanguineous Serosanguineous -Wound Margin Distinct, Distinct, Outline Outline Attached Attached -Granulation Amt Small (1-33%) Large (67-100%) -Granulation Quality Red Red -Slough/Fibrin Yes Yes -Necrosis Amt Large (67-100%) Small (1-33%) -Necrotic Tissue Type Adherent Slough Adherent Slough -Texture (Dot-wound Skin Appearance) Assessed, Assessed, Scarring Scarring -Moisture (Dot-wound Skin Appearance) Assessed, Assessed Maceration,Dry/ Scaly -Color (Dot-wound Skin Appearance) Assessed, Assessed, Erythema,Palor Erythema -Temperature (Dot-wound Skin No Abnormality No Abnormality Appearance) (Pt Warm) (Pt Warm) -Tenderness on Palpation (Dot-wound Yes Yes Skin Appearance) -Ulcer Cleansing Rinsed/ Rinsed/ Irrigated with Irrigated with Saline Saline -Foul Odor after Cleansing No No -Anesthetic Used 5% Lidocaine 5% Lidocaine Gel Gel #1 L Grt Toe -Combined with other wound No -Current Size (cm) - Length 0.7 -Current Size (cm) - Width 0.5 -Current Size (cm) - Depth 0.1 -Total Square Cm 0.35 -Photo Taken No -Epithelialization None Present -Tunneling No -Undermining/Tunneling No -Circular Undermining No -Exudate Amt Small -Exudate Type Serosanguineous -Wound Margin Distinct, Outline Attached -Granulation Amt None Present (0 %) -Slough/Fibrin Yes -Necrosis Amt Large (67-100%) -Necrotic Tissue Type Adherent Slough -Texture (Dot-wound Skin Appearance) Assessed, Scarring -Moisture (Dot-wound Skin Appearance) Assessed,Dry/ Scaly -Color (Dot-wound Skin Appearance) Assessed, Erythema -Temperature (Dot-wound Skin No Abnormality Appearance) (Pt Warm) -Tenderness on Palpation (Dot-wound Yes Skin Appearance) -Ulcer Cleansing Rinsed/ Irrigated with Saline -Foul Odor after Cleansing No -Anesthetic Used 5% Lidocaine Gel Lower Limb Edema Present Yes Yes Left Calf (cm) 33.1 31.6 Left Ankle (cm) 23.5 21.5 WC - Nurse 2 - General Ulcer CM Notes Start: 03/27/21 09:04 Freq: Status: Active Protocol: Activity Type Activity Date Activity User E-Sign Co-Sign Detail Recorded Client Recorded Date Recorded By Document 03/27/21 09:16 MW [id number] 03/27/21 09:23 MW Document 04/03/21 11:04 [id number] 04/03/21 11:16 RICHI 03/27/21 04/03/21 09:16 11:04 Wound Center Nurse 2 #3 4th lateral toe/amp site -Time 09:18 11:07 -Correct Patient Yes Yes -Correct Side, Site, Position Yes Yes -Correct Procedure Yes Yes -Procedure Performed Yes Yes -Type of Procedure Debridement Debridement -Clinical Debridement Subcutaneous Subcutaneous -Tissue Removed Subcutaneous Subcutaneous -Post Debridement (cm) - Length 1.7 1.4 -Post Debridement (cm) - Width 1.0 0.4 -Post Debridement (cm) - Depth 0.4 0.4 -Total Square (Post) (cm) 1.70 0.56 -Area of Debridement (cm) - Length 1.7 1.4 -Area of Debridement (cm) - Width 1.0 0.4 -Total Square (Area) (cm) 1.70 0.56 -Tunneling No No -Undermining/Tunneling No No -Circular Undermining No No -Wound/Ulcer Outcome Not Healed Not Healed -Ulcer Cleansing Rinsed/ Rinsed/ Irrigated with Irrigated with Saline Saline -Foul Odor after Cleansing No No -Bioengineered Tissue No No -Bleeding Controlled with Pressure Pressure -Offloading No -Type of Offloading Surgical Shoe -Treatment Response Procedure Procedure Tolerated Well Tolerated Well -Debridement - Subq, 1st 20sq cm Yes Yes #2 L 5th toe AMP site -Time : 11:12 -Correct Patient Yes Yes -Correct Side, Site, Position Yes Yes -Correct Procedure Yes Yes -Procedure Performed Yes Yes -Type of Procedure Debridement Debridement -Clinical Debridement Subcutaneous Bone -Tissue Removed Subcutaneous -Post Debridement (cm) - Length 1.0 0.8 -Post Debridement (cm) - Width 0.6 0.6 -Post Debridement (cm) - Depth 0.2 0.4 -Total Square (Post) (cm) 0.60 0.48 -Area of Debridement (cm) - Length 1.0 0.8 -Area of Debridement (cm) - Width 0.6 0.6 -Total Square (Area) (cm) 0.60 0.48 -Tunneling No No -Undermining/Tunneling No No -Circular Undermining No No -Wound/Ulcer Outcome Not Healed Not Healed -Ulcer Cleansing Rinsed/ Rinsed/ Irrigated with Irrigated with Saline Saline -Foul Odor after Cleansing No No -Bioengineered Tissue No No -Bleeding Controlled with Pressure Pressure -Offloading No Yes -Type of Offloading Surgical Shoe -Treatment Response Procedure Procedure Tolerated Well Tolerated Well -Debridement - Subq, 1st 20sq cm No -Debridement - Bone, 1st 20sq cm Yes #1 L Grt Toe -Time : 11:16 -Correct Patient Yes Yes -Correct Side, Site, Position Yes Yes -Correct Procedure Yes Yes -Procedure Performed No Yes -Type of Procedure Debridement -Clinical Debridement Subcutaneous -Tissue Removed Subcutaneous -Post Debridement (cm) - Length 0 0.4 -Post Debridement (cm) - Width 0 0.2 -Post Debridement (cm) - Depth 0 0.2 -Total Square (Post) (cm) 0 0.08 -Area of Debridement (cm) - Length 0.4 -Area of Debridement (cm) - Width 0.2 -Total Square (Area) (cm) 0.08 -Tunneling No -Undermining/Tunneling No -Circular Undermining No -Wound/Ulcer Outcome Healed- Not Healed Epithelialized -Ulcer Cleansing Rinsed/ Irrigated with Saline -Foul Odor after Cleansing No -Bioengineered Tissue No -Bleeding Controlled with Pressure -Offloading Yes -Type of Offloading Surgical Shoe -Treatment Response Procedure Tolerated Well -Debridement - Subq, 1st 20sq cm No Pain Scale: 0-10 Numeric Is Patient Pain Free? Yes Yes WC - Nurse 3 - General Ulcer D/C NN Start: 03/27/21 09:04 Freq: Status: Active Protocol: Activity Type Activity Date Activity User E-Sign Co-Sign Detail Recorded Client Recorded Date Recorded By Document 03/27/21 09:37 [facility] [id number] 03/27/21 09:38 [facility] Document 04/03/21 11:22 [facility] [id number] 04/03/21 11:24 BM 03/27/21 04/03/21 09:37 11:22 Wound Care Nurse 3 #3 4th lateral toe/amp site -Ulcer Cleansing Rinsed/ Rinsed/ Irrigated with Irrigated with Saline Saline -Foul Odor after Cleansing No No -Primary Dressing Applied Fibracol Plus Fibracol Plus 4x4 4x4 -Primary Dressing Covered/Secured with Dry Gauze & Dry Gauze & Roll Gauze, Roll Gauze, Secured with Secured with Tape Tape -Other Covering drsg per rb rn -Fibracol Plus 4x4 1 1 #2 L 5th toe AMP site -Ulcer Cleansing Rinsed/ Rinsed/ Irrigated with Irrigated with Saline Saline -Foul Odor after Cleansing No No -Primary Dressing Applied Fibracol Plus Fibracol Plus 4x4 4x4 -Primary Dressing Covered/Secured with Dry Gauze & Dry Gauze & Roll Gauze, Roll Gauze, Secured with Secured with Tape Tape -Other Covering drsg per rb rn -Fibracol Plus 4x4 0 0 #1 L Grt Toe -Ulcer Cleansing Rinsed/ Irrigated with Saline -Foul Odor after Cleansing No -Primary Dressing Applied Fibracol Plus 4x4 -Primary Dressing Covered/Secured with Dry Gauze & Roll Gauze, Secured with Tape -Other Covering drsg per rb rn -Fibracol Plus 4x4 0 Left -Compression Wrap Pedro Wrap -Other own pedro wraps applied Treatment Response Procedure Procedure Tolerated Well Tolerated Well Pain Scale: 0-10 Numeric Is Patient Pain Free? Yes Yes WC - Visit Discharge Discharge Condition Stable Stable Ambulatory Status Ambulatory,Cane Ambulatory Transportation Private Auto Private Auto Accompanied by gr omero Facility Type Home Health Home Health Assessment/Plan Assessment/Plan (1) Non-pressure chronic ulcer of other part of left foot with necrosis of bone: CODE(S): L97.524 - Non-pressure chronic ulcer of other part of left foot with necrosis of bone (2) Non-pressure chronic ulcer of other part of left foot with fat layer exposed: CODE(S): L97.522 - Non-pressure chronic ulcer of other part of left foot with fat layer exposed (3) Osteomyelitis: CODE(S): M86.9 - Osteomyelitis, unspecified QUALIFIERS: Laterality: left Osteomyelitis location: foot Osteomyelitis type: subacute Qualified Code(s): M86.272 - Subacute osteomyelitis, left ankle and foot (4) PAD (peripheral artery disease): CODE(S): I73.9 - Peripheral vascular disease, unspecified (5) History of tobacco abuse: CODE(S): Z87.891 - Personal history of nicotine dependence (6) Ischaemic rest pain of lower extremity: CODE(S): M79.606 - Pain in leg, unspecified; I99.8 - Other disorder of circulatory system (7) Delayed wound healing: CODE(S): T14.8XXD - Other injury of unspecified body region, subsequent encounter (8) Amputated toe: CODE(S): S98.139A - Complete traumatic amputation of one unspecified lesser toe, initial encounter QUALIFIERS: Laterality: left Qualified Code(s): S98.132A - Complete traumatic amputation of one left lesser toe, initial encounter (9) Type 2 diabetes mellitus with diabetic polyneuropathy: CODE(S): E11.42 - Type 2 diabetes mellitus with diabetic polyneuropathy PLAN: Patient seen and examined with family member present. She is noted to have continued swelling with more changes consistent with poor vascular status. She is noted to have already had PVRs obtained. Discussed with patient that the results were not good and that she may be looking at another procedure possibly. Dr Nicholson will be able to give her more information at her appointment tomorrow. Discussed that either way patient may still need further amputation depending on how much blood flow may be able to be restored and at what level. She was scheduled to have additional intervention recently canceled this due to being overwhelmed. I encouraged her that this is the primary focus of her treatment plan at this time and she will get rescheduled. Vascular studies 03/11/21 show bilateral DP and PT monphasic pulses. JENY left 0.4 at PT and 1.35 at DP and on right 0.66 at PT and 0.9 at DP with TBI of 0.19. No TBI obtained on left. She was previously treated with Levaquin per Dr. Skaggs, infectious disease specialist. Patient had cultures obtained 02/05/2021 demonstrating Pseudomonas. Discussed possibility of colonization with Pseudomonas with patient and family members. Patient has had Pseudomonas consistently on her wound cultures for the last several months with multiple rounds of treatment. Culture of 5th metatarsal bone 03/05/21 was positive for PsAg. She was reassured no local signs infection noted today. To continue with diligent antibacterial soap and water wash with wound dressing changes. Every other day Aquacel silver dressing changes to ulceration sites covered with dry sterile dressing. To wash with soap and water prior. Patient is noted to have home health care. Reviewed proper wound care with patient. Discussed with the patient the importance of offloading the sites with wide enough shoe gear if she is to be wearing shoes, proper diet, good blood sugar control. Patient has used Darci in the past nutritional supplementation. She continues to use this twice a day. Patient was offered nutritional counseling with a fish smoker. She is noted to have had counseling while in the hospital. Patient has offloaded surgical shoe. Discussed with the patient all concerning signs and symptoms to watch out for and to contact office if he either presents. Application for TheraSkin skin graft is approved but there is a portion that patient has cover [id number]. Patient will discuss with family if this is doable if she wants to proceed with this she will let us know. Resubmitted to see if her [id number] cost is changed since previous submission. Patient is noted to still be responsible for $325 per application. This is not doable per patient. Patient and family may reconsider pending vascular results with Dr. Nicholson. Patient has a diabetic foot ulceration that has failed to show measurable signs of healing after completing 30 consecutive days of standard wound care. There is confirmed osteomyelitis to left 5th metatarsal even though patient has had multiple rounds of antibiotics and consultations with infectious disease. Patient would likely be a good candidate for hyperbaric oxygen therapy. This would include further work up with labs, imaging, and clearance consultation. If patient is approved for hyperbaric oxygen therapy our goals would be to get progression and healing of patient's wounds while continuing regular debridements, monitoring, offloading, medical optimizing and monitoring. Patient is noted to have been denied hyperbarics in the past but with new osteomyelitis we are hopeful that she will be approved for therapy in order to obtain wound healing. Patient encouraged to follow-up with PCP with concerning depression-like symptoms over lack of progress and continued pain. Patient family also has expressed concerns over patient's mental health. Patient to follow up with Dr Skaggs for osteomyelitis. She is concurrently in the process of getting cleared and scheduled for hyperbaric oxygen therapies. Patient is to follow-up in 1 week. This note was generated with [employer] dictation software. It may contain incorrect words, spelling, and punctuation that were not noted in checking the note before signing. 21 minutes was spent on this encounter. This included face to face and non face to face care including preparing for the visit, reviewing the history, performing the exam, counseling and providing education to the patient, family, or caregiver, ordering medications/test/ procedures if indicated as documented, communicating with other healthcare providers, documenting information in the medical record, interpreting / sharing this information when indicated as documented, and care coordination.
[2021-04-10 10:22] VITALS: BP 153/57; RESP 18; TEMP 36.2; BMI 23.5
--- NOTE | 2021-04-10 11:08 | PCM.WC.PN ---
History of Present Illness Date of Service: 04/10/21 Chief Complaint: Left foot first digit ulceration Left fourth and fifth digit amputation site ulceration PAD History of Wound: Patient had intervention done by Dr. Nicholson on 06/12/2020. Patient saw Dr. Tenorio June 26, 2020 and was started on 100mg gabapentin TID. She has noticed some improvement in her pain. Patient had further intervention with Dr. Nicholson on October 11, 2020. Patient relates having to be transferred to [facility] for this. 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 Amputation of 4th digit with debridement of 1st and 5th digit ulcerations was performed 07/08/20. 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 Patient underwent left fifth digit amputation with attempted delayed closure of fourth digit amputation site ulceration and with application of amnio fix grafting to all sites by Dr. López on 01/03/2021. The attempt for delayed primary closure of the previous fourth digit amputation site ulceration was not successful and ulceration here remains. Cultures at this time are also positive for Pseudomonas. 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 Cultures from 02/05/2021 were also positive for Pseudomonas. Patient has had multiple rounds of antibiotics and consultation with infectious disease over this infection. Patient is noted to have return of vascular symptom complaints especially to left lower extremity. She has appointment with Dr. Nicholson for reassessment with the understanding she might need possible further intervention. Patient continues care at the wound care center for remaining left foot wounds. Patient is noted to have been approved for [employer] but was not fully covered and would not be able to cover the remaining financial expense. Patient has had other modalities of treatment to include HBO therapy. She is in the process of getting scheduled for more hyperbaric oxygen therapy sessions. She did have a revascularization procedure scheduled with Dr. Nicholson recently canceled it because she is getting overwhelmed with all of her recommendations. Her procedure is now rescheduled for this upcoming Thursday. Progress of Wound: Stable lateral foot healed hallux ulcer Objective Data Objective Data Vital Signs: Vital Signs Temp Pulse Resp BP 97.2 F L 69 18 153/57 H 04/10/21 10:22 04/03/21 10:19 04/10/21 10:22 04/10/21 10:22 Oxygen Delivery Method Room Air Weight: 149 kg Body Mass Index (BMI) 23.5 Physical Exam Extremity Extremity Narrative: no cyanosis, no calf tenderness, diminished pulses muscle wasting noted. no tenderness. Amputation lateral left forefoot No fluctuance or bogginess on palpation Skin Skin Narrative: no purulence, no erythema, no streaking, no odor, no infection. Adjacent skin is atrophic. hallux is healed with full epithelialization. The distal most lateral foot ulcer has a granular base. The distal most lateral ulcer has a granular base and also exposed bone that is removed during the debridement Neuro Neuro Narrative: lack of normal epicritic sensation via light touch consistent with neuropathy Debridement Note Debridement Note Wound debrided: lateral foot x 2 (distal most and lateral) Wound Grade/Stage: 1,3 Type of Debridement: Excisional debridement Anesthesia Used: 4% Lidocaine Solution Depth: in the subcutaneous layer Percentage of wound debrided: 100 Instrument Used: #15 blade Tissue Removed: fibrous, devitalized subcutaneous, biofilm, slough Severity: Fat Layer Exposed Amount of bleeding with debridement: Mild Bleeding Controlled with: Pressure Patient tolerated procedure: Patient tolerated procedure well Post-Debridement Measurements and Additional Note: Post-Debridement Measurements/Treatment - Nurse 1 - General Ulcer Assessment Start: 03/27/21 09:04 Freq: Status: Active Protocol: ESVIN Activity Type Activity Date Activity User E-Sign Co-Sign Detail Recorded Client Recorded Date Recorded By Document 03/27/21 09:04 [facility] [id number] 03/27/21 09:12 [facility] Document 04/03/21 10:19 [facility] [id number] 04/03/21 10:33 [facility] Document 04/10/21 10:22 MT [id number] 04/10/21 10:30 MT Edit Result 04/10/21 10:22 MT (1) [id number] 04/10/21 10:33 MT (1) Blood Pressure (90/60-120/80) => 153/57 H Blood Pressure Mean (mm Hg) => 89 03/27/21 04/03/21 04/10/21 09:04 10:19 10:22 - Today's Visit Information Type of service Follow-up Visit Follow-up Visit Follow-up Visit (Physician/SUPERVISOR REACTOR FUELING (Physician/SUPERVISOR REACTOR FUELING (Physician/SUPERVISOR REACTOR [employer]ELING ) ) ) Arrival Mode Ambulatory,Cane Ambulatory,Cane Ambulatory Transfer Assistance None None Accompanied by daughter daughter Patient Identification Verified (Name & Yes Yes Yes ) Patient Requires Transmission-Based No No Precautions Height and Weight Body Mass Index (BMI) 23.5 23.5 23.5 BMI Classification Normal Normal Normal Vital Signs Temperature (97.8 F-99.1 F) 96 F L 97.5 F L 97.2 F L Temperature Source Temporal Temporal Temporal Pulse Rate (60-100) 63 69 Pulse Location Monitor Monitor Monitor Respiratory Rate (12-18) 16 16 18 Respiratory rate source Observation Observation Observation Oxygen Delivery Method Room Air Room Air Room Air Blood Pressure (90/60-120/80) 107/44 L 145/38 H 153/57 H Blood Pressure Mean (mm Hg) 65 73 89 Source Monitor Monitor Monitor Position Sitting Sitting Sitting Blood Pressure Location Right Arm Left Arm Left Arm History Since Last Visit- (Skip if this is Patient's initial visit) Have you changed medications since your No No No last visit? Any new allergies or adverse reactions No No No Had a fall/change in ADL's that may No No No increase risk of falls Signs or symptoms of abuse and/or No No No neglect since last visit Have you been in the hospital since your No No No last visit? Has dressing in place as prescribed Yes Yes Yes Has compression in place as prescribed Yes Yes Yes Has offloadiing in place as prescribed Yes N/A Yes Experienced any changes in pain level or No No Yes management Left Footwear Surgical Shoe Surgical Shoe Diabetic Shoe with pressure with pressure relief insole relief insole Right Footwear Regular Shoe Regular Shoe Regular Shoe Pain Scale: 0-10 Numeric Is Patient Pain Free? Yes Yes WC - Nurse 1 - General Ulcer Measurement Start: 03/27/21 09:04 Freq: Status: Active Protocol: Activity Type Activity Date Activity User E-Sign Co-Sign Detail Recorded Client Recorded Date Recorded By Document 03/27/21 09:04 [facility] [id number] 03/27/21 09:12 [facility] Document 04/03/21 10:19 [facility] [id number] 04/03/21 10:33 BM Document 04/10/21 10:22 MT [id number] 04/10/21 10:30 MT Edit Result 04/10/21 10:22 MT (1) [id number] 04/10/21 10:31 MT (1) #3 4th lateral toe/amp site - Granulation Quality => Pale,Wildrose #2 L 5th toe AMP site - Exudate Amt => Small - Exudate Type => Serosanguineous - Wound Margin => Thickened & Rolled => Under - Granulation Quality => Pale,Wildrose - Ulcer Cleansing Soap and Water => Rinsed/Irrigated => with Saline Lower Limb Edema Present => Yes Left Calf (cm) => 31.6 Left Ankle (cm) => 21.5 03/27/21 04/03/21 04/10/21 09:04 10:19 10:22 Wound Center Nurse 1 #3 4th lateral toe/amp site -Combined with other wound No No -Current Size (cm) - Length 2 1.3 1.3 -Current Size (cm) - Width 1 0.4 0.5 -Current Size (cm) - Depth 0.4 0.4 0.4 -Total Square Cm 2 0.52 0.65 -Photo Taken No No -Epithelialization Small 1-33% None Present -Tunneling No No -Undermining/Tunneling No No -Circular Undermining No No -Exudate Amt Medium Medium Medium -Exudate Type Serosanguineous Serosanguineous -Wound Margin Distinct, Distinct, Distinct, Outline Outline Outline Attached Attached Attached -Granulation Amt Small (1-33%) Small (1-33%) Medium (34-66%) -Granulation Quality Wildrose Pale,Wildrose -Slough/Fibrin Yes Yes Yes -Necrosis Amt Large (67-100%) Large (67-100%) Medium (34-66%) -Necrotic Tissue Type Adherent Slough Adherent Slough Adherent Slough -Texture (Dot-wound Skin Appearance) Assessed, Assessed, Assessed Scarring Scarring -Moisture (Dot-wound Skin Appearance) Assessed, Assessed, Assessed Maceration,Dry/ Maceration Scaly -Color (Dot-wound Skin Appearance) Assessed, Assessed,Palor Assessed Erythema,Palor -Temperature (Dot-wound Skin No Abnormality No Abnormality No Abnormality Appearance) (Pt Warm) (Pt Warm) (Pt Warm) -Tenderness on Palpation (Dot-wound No No Yes Skin Appearance) -Ulcer Cleansing Rinsed/ Rinsed/ Soap and Water Irrigated with Irrigated with Saline Saline -Foul Odor after Cleansing No No No -Anesthetic Used 5% Lidocaine 5% Lidocaine 4% Lidocaine Gel Gel Solution #2 L 5th toe AMP site -Combined with other wound No No -Current Size (cm) - Length 1 0.7 0.8 -Current Size (cm) - Width 0.6 0.6 0.3 -Current Size (cm) - Depth 0.3 0.2 0.2 -Total Square Cm 0.6 0.42 0.24 -Photo Taken No No -Epithelialization None Present Small 1-33% -Tunneling No No -Undermining/Tunneling No No -Circular Undermining No No Yes -Exudate Amt Medium Medium Small -Exudate Type Serosanguineous Serosanguineous Serosanguineous -Wound Margin Distinct, Distinct, Thickened & Outline Outline Rolled Under Attached Attached -Granulation Amt Small (1-33%) Large (67-100%) Medium (34-66%) -Granulation Quality Red Red Pale,Wildrose -Slough/Fibrin Yes Yes -Necrosis Amt Large (67-100%) Small (1-33%) Medium (34-66%) -Necrotic Tissue Type Adherent Slough Adherent Slough Adherent Slough -Texture (Dot-wound Skin Appearance) Assessed, Assessed, Assessed Scarring Scarring -Moisture (Dot-wound Skin Appearance) Assessed, Assessed Assessed Maceration,Dry/ Scaly -Color (Dot-wound Skin Appearance) Assessed, Assessed, Assessed Erythema,Palor Erythema -Temperature (Dot-wound Skin No Abnormality No Abnormality No Abnormality Appearance) (Pt Warm) (Pt Warm) (Pt Warm) -Tenderness on Palpation (Dot-wound Yes Yes Yes Skin Appearance) -Ulcer Cleansing Rinsed/ Rinsed/ Rinsed/ Irrigated with Irrigated with Irrigated with Saline Saline Saline -Foul Odor after Cleansing No No No -Anesthetic Used 5% Lidocaine 5% Lidocaine 4% Lidocaine Gel Gel Solution #1 L Grt Toe -Combined with other wound No -Current Size (cm) - Length 0.7 0.1 -Current Size (cm) - Width 0.5 0.1 -Current Size (cm) - Depth 0.1 0.1 -Total Square Cm 0.35 0.01 -Photo Taken No -Epithelialization None Present -Tunneling No -Undermining/Tunneling No -Circular Undermining No -Exudate Amt Small -Exudate Type Serosanguineous -Wound Margin Distinct, Outline Attached -Granulation Amt None Present (0 %) -Slough/Fibrin Yes -Necrosis Amt Large (67-100%) -Necrotic Tissue Type Adherent Slough -Texture (Dot-wound Skin Appearance) Assessed, Scarring -Moisture (Dot-wound Skin Appearance) Assessed,Dry/ Scaly -Color (Dot-wound Skin Appearance) Assessed, Erythema -Temperature (Dot-wound Skin No Abnormality Appearance) (Pt Warm) -Tenderness on Palpation (Dot-wound Yes Skin Appearance) -Ulcer Cleansing Rinsed/ Irrigated with Saline -Foul Odor after Cleansing No -Anesthetic Used 5% Lidocaine Gel Lower Limb Edema Present Yes Yes Yes Left Calf (cm) 33.1 31.6 31.6 Left Ankle (cm) 23.5 21.5 21.5 WC - Nurse 2 - General Ulcer CM Notes Start: 03/27/21 09:04 Freq: Status: Active Protocol: Activity Type Activity Date Activity User E-Sign Co-Sign Detail Recorded Client Recorded Date Recorded By Document 03/27/21 09:16 [id number] 03/27/21 09:23 MW Document 04/03/21 11:04 [id number] 04/03/21 11:16 Document 04/10/21 10:41 [id number] 04/10/21 10:46 03/27/21 04/03/21 04/10/21 09:16 11:04 10:41 Wound Center Nurse 2 #3 4th lateral toe/amp site -Time 09:18 11:07 10:42 -Correct Patient Yes Yes Yes -Correct Side, Site, Position Yes Yes Yes -Correct Procedure Yes Yes Yes -Procedure Performed Yes Yes Yes -Type of Procedure Debridement Debridement Debridement -Clinical Debridement Subcutaneous Subcutaneous Subcutaneous -Tissue Removed Subcutaneous Subcutaneous Subcutaneous -Post Debridement (cm) - Length 1.7 1.4 1.4 -Post Debridement (cm) - Width 1.0 0.4 0.5 -Post Debridement (cm) - Depth 0.4 0.4 0.4 -Total Square (Post) (cm) 1.70 0.56 0.70 -Area of Debridement (cm) - Length 1.7 1.4 1.4 -Area of Debridement (cm) - Width 1.0 0.4 0.5 -Total Square (Area) (cm) 1.70 0.56 0.70 -Tunneling No No No -Undermining/Tunneling No No No -Circular Undermining No No No -Wound/Ulcer Outcome Not Healed Not Healed Not Healed -Ulcer Cleansing Rinsed/ Rinsed/ Rinsed/ Irrigated with Irrigated with Irrigated with Saline Saline Saline -Foul Odor after Cleansing No No No -Bioengineered Tissue No No No -Bleeding Controlled with Pressure Pressure Pressure -Offloading No Yes -Type of Offloading Surgical Shoe Surgical Shoe -Treatment Response Procedure Procedure Procedure Tolerated Well Tolerated Well Tolerated Well -Debridement - Subq, 1st 20sq cm Yes Yes No #2 L 5th toe AMP site -Time 09:19 11:12 10:42 -Correct Patient Yes Yes Yes -Correct Side, Site, Position Yes Yes Yes -Correct Procedure Yes Yes Yes -Procedure Performed Yes Yes Yes -Type of Procedure Debridement Debridement Debridement -Clinical Debridement Subcutaneous Bone Subcutaneous -Tissue Removed Subcutaneous Subcutaneous -Post Debridement (cm) - Length 1.0 0.8 0.8 -Post Debridement (cm) - Width 0.6 0.6 0.4 -Post Debridement (cm) - Depth 0.2 0.4 0.2 -Total Square (Post) (cm) 0.60 0.48 0.32 -Area of Debridement (cm) - Length 1.0 0.8 0.8 -Area of Debridement (cm) - Width 0.6 0.6 0.4 -Total Square (Area) (cm) 0.60 0.48 0.32 -Tunneling No No No -Undermining/Tunneling No No No -Circular Undermining No No No -Wound/Ulcer Outcome Not Healed Not Healed Not Healed -Ulcer Cleansing Rinsed/ Rinsed/ Rinsed/ Irrigated with Irrigated with Irrigated with Saline Saline Saline -Foul Odor after Cleansing No No No -Bioengineered Tissue No No No -Bleeding Controlled with Pressure Pressure Pressure -Offloading No Yes Yes -Type of Offloading Surgical Shoe Surgical Shoe -Treatment Response Procedure Procedure Procedure Tolerated Well Tolerated Well Tolerated Well -Debridement - Subq, 1st 20sq cm No Yes -Debridement - Bone, 1st 20sq cm Yes #1 L Grt Toe -Time 09:19 11:16 10:43 -Correct Patient Yes Yes No -Correct Side, Site, Position Yes Yes No -Correct Procedure Yes Yes No -Procedure Performed No Yes No -Type of Procedure Debridement -Clinical Debridement Subcutaneous -Tissue Removed Subcutaneous -Post Debridement (cm) - Length 0 0.4 0 -Post Debridement (cm) - Width 0 0.2 0 -Post Debridement (cm) - Depth 0 0.2 0 -Total Square (Post) (cm) 0 0.08 0 -Area of Debridement (cm) - Length 0.4 0 -Area of Debridement (cm) - Width 0.2 0 -Total Square (Area) (cm) 0.08 0 -Tunneling No No -Undermining/Tunneling No No -Circular Undermining No No -Wound/Ulcer Outcome Healed- Not Healed Healed- Epithelialized Epithelialized -Ulcer Cleansing Rinsed/ Rinsed/ Irrigated with Irrigated with Saline Saline -Foul Odor after Cleansing No No -Bioengineered Tissue No No -Bleeding Controlled with Pressure Pressure -Offloading Yes Yes -Type of Offloading Surgical Shoe Surgical Shoe -Treatment Response Procedure Procedure Tolerated Well Tolerated Well -Debridement - Subq, 1st 20sq cm No Pain Scale: 0-10 Numeric Is Patient Pain Free? Yes Yes Yes WC - Nurse 3 - General Ulcer D/C NN Start: 03/27/21 09:04 Freq: Status: Active Protocol: Activity Type Activity Date Activity User E-Sign Co-Sign Detail Recorded Client Recorded Date Recorded By Document 03/27/21 09:37 [facility] [id number] 03/27/21 09:38 [facility] Document 04/03/21 11:22 [facility] [id number] 04/03/21 11:24 BM 03/27/21 04/03/21 09:37 11:22 Wound Care Nurse 3 #3 4th lateral toe/amp site -Ulcer Cleansing Rinsed/ Rinsed/ Irrigated with Irrigated with Saline Saline -Foul Odor after Cleansing No No -Primary Dressing Applied Fibracol Plus Fibracol Plus 4x4 4x4 -Primary Dressing Covered/Secured with Dry Gauze & Dry Gauze & Roll Gauze, Roll Gauze, Secured with Secured with Tape Tape -Other Covering drsg per rb rn -Fibracol Plus 4x4 1 1 #2 L 5th toe AMP site -Ulcer Cleansing Rinsed/ Rinsed/ Irrigated with Irrigated with Saline Saline -Foul Odor after Cleansing No No -Primary Dressing Applied Fibracol Plus Fibracol Plus 4x4 4x4 -Primary Dressing Covered/Secured with Dry Gauze & Dry Gauze & Roll Gauze, Roll Gauze, Secured with Secured with Tape Tape -Other Covering drsg per rb rn -Fibracol Plus 4x4 0 0 #1 L Grt Toe -Ulcer Cleansing Rinsed/ Irrigated with Saline -Foul Odor after Cleansing No -Primary Dressing Applied Fibracol Plus 4x4 -Primary Dressing Covered/Secured with Dry Gauze & Roll Gauze, Secured with Tape -Other Covering drsg per rb rn -Fibracol Plus 4x4 0 Left -Compression Wrap Pedro Wrap -Other own pedro wraps applied Treatment Response Procedure Procedure Tolerated Well Tolerated Well Pain Scale: 0-10 Numeric Is Patient Pain Free? Yes Yes WC - Visit Discharge Discharge Condition Stable Stable Ambulatory Status Ambulatory,Cane Ambulatory Transportation Private Auto Private Auto Accompanied by [facility] Facility Type Home Health Home Health Assessment/Plan Assessment/Plan (1) Non-pressure chronic ulcer of other part of left foot with necrosis of bone: CODE(S): L97.524 - Non-pressure chronic ulcer of other part of left foot with necrosis of bone (2) Non-pressure chronic ulcer of other part of left foot with fat layer exposed: CODE(S): L97.522 - Non-pressure chronic ulcer of other part of left foot with fat layer exposed (3) Osteomyelitis: CODE(S): M86.9 - Osteomyelitis, unspecified QUALIFIERS: Laterality: left Osteomyelitis location: foot Osteomyelitis type: subacute Qualified Code(s): M86.272 - Subacute osteomyelitis, left ankle and foot (4) PAD (peripheral artery disease): CODE(S): I73.9 - Peripheral vascular disease, unspecified (5) History of tobacco abuse: CODE(S): Z87.891 - Personal history of nicotine dependence (6) Ischaemic rest pain of lower extremity: CODE(S): M79.606 - Pain in leg, unspecified; I99.8 - Other disorder of circulatory system (7) Delayed wound healing: CODE(S): T14.8XXD - Other injury of unspecified body region, subsequent encounter (8) Amputated toe: CODE(S): S98.139A - Complete traumatic amputation of one unspecified lesser toe, initial encounter QUALIFIERS: Laterality: left Qualified Code(s): S98.132A - Complete traumatic amputation of one left lesser toe, initial encounter (9) Type 2 diabetes mellitus with diabetic polyneuropathy: CODE(S): E11.42 - Type 2 diabetes mellitus with diabetic polyneuropathy PLAN: Patient seen and examined with family member present. She is noted to have continued swelling with more changes consistent with poor vascular status. She is noted to have already had PVRs obtained. Discussed with patient that the results were not good and that she may be looking at another procedure possibly. Rescheduled for surgery this Thursday. Vascular studies 03/11/21 show bilateral DP and PT monphasic pulses. JENY left 0.4 at PT and 1.35 at DP and on right 0.66 at PT and 0.9 at DP with TBI of 0.19. No TBI obtained on left. She was previously treated with Levaquin per Dr. Skaggs, infectious disease specialist. Patient had cultures obtained 02/05/2021 demonstrating Pseudomonas. Discussed possibility of colonization with Pseudomonas with patient and family members. Patient has had Pseudomonas consistently on her wound cultures for the last several months with multiple rounds of treatment. Culture of 5th metatarsal bone 03/05/21 was positive for PsAg. She was reassured no local signs infection noted today. To continue with diligent antibacterial soap and water wash with wound dressing changes. Every other day Aquacel silver dressing changes to ulceration sites covered with dry sterile dressing. To wash with soap and water prior. Patient is noted to have home health care. Reviewed proper wound care with patient. Discussed with the patient the importance of offloading the sites with wide enough shoe gear if she is to be wearing shoes, proper diet, good blood sugar control. Patient has used Darci in the past nutritional supplementation. She continues to use this twice a day. Patient was offered nutritional counseling with a link trainer teacher. She is noted to have had counseling while in the hospital. Patient has offloaded surgical shoe. Discussed with the patient all concerning signs and symptoms to watch out for and to contact office if he either presents. Application for TheraSkin skin graft is approved but there is a portion that patient has cover [id number]. Patient will discuss with family if this is doable if she wants to proceed with this she will let us know. Resubmitted to see if her [id number] cost is changed since previous submission. Patient is noted to still be responsible for $325 per application. This is not doable per patient. Patient and family may reconsider pending vascular results with Dr. Nicholson. Patient has a diabetic foot ulceration that has failed to show measurable signs of healing after completing 30 consecutive days of standard wound care. There is confirmed osteomyelitis to left 5th metatarsal even though patient has had multiple rounds of antibiotics and consultations with infectious disease. Patient would likely be a good candidate for hyperbaric oxygen therapy. This would include further work up with labs, imaging, and clearance consultation. If patient is approved for hyperbaric oxygen therapy our goals would be to get progression and healing of patient's wounds while continuing regular debridements, monitoring, offloading, medical optimizing and monitoring. Patient is noted to have been denied hyperbarics in the past but with new osteomyelitis we are hopeful that she will be approved for therapy in order to obtain wound healing. Patient encouraged to follow-up with PCP with concerning depression-like symptoms over lack of progress and continued pain. Patient family also has expressed concerns over patient's mental health. Patient to follow up with Dr Skaggs for osteomyelitis. She is concurrently in the process of getting cleared and scheduled for hyperbaric oxygen therapies. Patient is to follow-up in 1 week. This note was generated with [employer] [place] dictation software. It may contain incorrect words, spelling, and punctuation that were not noted in checking the note before signing.
[2021-04-17 09:39] VITALS: BMI 23.5
--- NOTE | 2021-04-17 12:40 | PCM.WC.PN ---
History of Present Illness Date of Service: 04/17/21 Chief Complaint: Left fourth and fifth digit amputation site ulceration PAD History of Wound: Patient had intervention done by Dr. Nicholson on 06/12/2020. Patient saw Dr. Tenorio June 26, 2020 and was started on 100mg gabapentin TID. She has noticed some improvement in her pain. Patient had further intervention with Dr. Nicholson on October 11, 2020. Patient relates having to be transferred to [facility] for this. 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 Amputation of 4th digit with debridement of 1st and 5th digit ulcerations was performed 07/08/20. 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 Patient underwent left fifth digit amputation with attempted delayed closure of fourth digit amputation site ulceration and with application of amnio fix grafting to all sites by Dr. López on 01/03/2021. The attempt for delayed primary closure of the previous fourth digit amputation site ulceration was not successful and ulceration here remains. Cultures at this time are also positive for Pseudomonas. 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 Cultures from 02/05/2021 were also positive for Pseudomonas. Patient has had multiple rounds of antibiotics and consultation with infectious disease over this infection. Patient is noted to have return of vascular symptom complaints especially to left lower extremity. She has appointment with Dr. Nicholson for reassessment with the understanding she might need possible further intervention. Patient continues care at the wound care center for remaining left foot wounds. Patient is noted to have been approved for [employer] but was not fully covered and would not be able to cover the remaining financial expense. Patient has had other modalities of treatment to include HBO therapy. She is in the process of getting scheduled for more hyperbaric oxygen therapy sessions and is available to restart next week. She did have a revascularization procedure scheduled with Dr. Nicholson on 18. Progress of Wound: Stable lateral foot Objective Data Objective Data Vital Signs: Vital Signs Temp Pulse Resp BP 97.2 F L 69 18 153/57 H 04/10/21 10:22 04/03/21 10:19 04/10/21 10:22 04/10/21 10:22 Oxygen Delivery Method Room Air Weight: 149 kg Body Mass Index (BMI) 23.5 Physical Exam Extremity Extremity Narrative: no cyanosis, no calf tenderness, diminished pulses muscle wasting noted. no tenderness. Amputation lateral left forefoot No fluctuance or bogginess on palpation Skin Skin Narrative: no purulence, no erythema, no streaking, no odor, no infection. Adjacent skin is atrophic. hallux is healed with full epithelialization. The distal most lateral foot ulcer has a granular base. The distal most lateral ulcer has a granular base and no longer visualized bone Neuro Neuro Narrative: lack of normal epicritic sensation via light touch consistent with neuropathy Debridement Note Debridement Note Wound debrided: lateral foot x 2 (distal most and lateral) Wound Grade/Stage: 1,3 Type of Debridement: Excisional debridement Anesthesia Used: 4% Lidocaine Solution Depth: in the subcutaneous layer Percentage of wound debrided: 100 Instrument Used: #15 blade Tissue Removed: fibrous, devitalized subcutaneous, biofilm, slough Severity: Fat Layer Exposed Amount of bleeding with debridement: Mild Bleeding Controlled with: Pressure Patient tolerated procedure: Patient tolerated procedure well Post-Debridement Measurements and Additional Note: Post-Debridement Measurements/Treatment - Nurse 1 - General Ulcer Assessment Start: 03/27/21 09:04 Freq: Status: Active Protocol: ESVIN Activity Type Activity Date Activity User E-Sign Co-Sign Detail Recorded Client Recorded Date Recorded By Document 03/27/21 09:04 [facility] [id number] 03/27/21 09:12 [facility] Document 04/03/21 10:19 [facility] [id number] 04/03/21 10:33 [facility] Document 04/10/21 10:22 MT [id number] 04/10/21 10:30 MT Edit Result 04/10/21 10:22 MT (1) [id number] 04/10/21 10:33 MT Document 04/17/21 09:39 MT [id number] 04/17/21 09:51 MT (1) Blood Pressure (90/60-120/80) => 153/57 H Blood Pressure Mean (mm Hg) => 89 03/27/21 04/03/21 04/10/21 09:04 10:19 10:22 - Today's Visit Information Type of service Follow-up Visit Follow-up Visit Follow-up Visit (Physician/SURGICAL SERVICES ASSISTANT (Physician/SURGICAL SERVICES ASSISTANT (Physician/SURGICAL SERVICES ASSISTANT ) ) ) Arrival Mode Ambulatory,Cane Ambulatory,Cane Ambulatory Transfer Assistance None None Accompanied by daughter daughter Patient Identification Verified (Name & Yes Yes Yes ) Patient Requires Transmission-Based No No Precautions Height and Weight Body Mass Index (BMI) 23.5 23.5 23.5 BMI Classification Normal Normal Normal Vital Signs Temperature (97.8 F-99.1 F) 96 F L 97.5 F L 97.2 F L Temperature Source Temporal Temporal Temporal Pulse Rate (60-100) 63 69 Pulse Location Monitor Monitor Monitor Respiratory Rate (12-18) 16 16 18 Respiratory rate source Observation Observation Observation Oxygen Delivery Method Room Air Room Air Room Air Blood Pressure (90/60-120/80) 107/44 L 145/38 H 153/57 H Blood Pressure Mean (mm Hg) 65 73 89 Source Monitor Monitor Monitor Position Sitting Sitting Sitting Blood Pressure Location Right Arm Left Arm Left Arm History Since Last Visit- (Skip if this is Patient's initial visit) Have you changed medications since your No No No last visit? Any new allergies or adverse reactions No No No Had a fall/change in ADL's that may No No No increase risk of falls Signs or symptoms of abuse and/or No No No neglect since last visit Have you been in the hospital since your No No No last visit? Has dressing in place as prescribed Yes Yes Yes Has compression in place as prescribed Yes Yes Yes Has offloadiing in place as prescribed Yes N/A Yes Experienced any changes in pain level or No No Yes management Left Footwear Surgical Shoe Surgical Shoe Diabetic Shoe with pressure with pressure relief insole relief insole Right Footwear Regular Shoe Regular Shoe Regular Shoe Pain Scale: 0-10 Numeric Is Patient Pain Free? Yes Yes 04/17/21 09:39 WC - Today's Visit Information Type of service Arrival Mode Transfer Assistance Accompanied by Patient Identification Verified (Name & ) Patient Requires Transmission-Based Precautions Height and Weight Body Mass Index (BMI) 23.5 BMI Classification Normal Vital Signs Temperature (97.8 F-99.1 F) Temperature Source Pulse Rate (60-100) Pulse Location Respiratory Rate (12-18) Respiratory rate source Oxygen Delivery Method Blood Pressure (90/60-120/80) Blood Pressure Mean (mm Hg) Source Position Blood Pressure Location History Since Last Visit- (Skip if this is Patient's initial visit) Have you changed medications since your last visit? Any new allergies or adverse reactions Had a fall/change in ADL's that may increase risk of falls Signs or symptoms of abuse and/or neglect since last visit Have you been in the hospital since your last visit? Has dressing in place as prescribed Has compression in place as prescribed Has offloadiing in place as prescribed Experienced any changes in pain level or management Left Footwear Right Footwear Pain Scale: 0-10 Numeric Is Patient Pain Free? WC - Nurse 1 - General Ulcer Measurement Start: 03/27/21 09:04 Freq: Status: Active Protocol: Activity Type Activity Date Activity User E-Sign Co-Sign Detail Recorded Client Recorded Date Recorded By Document 03/27/21 09:04 [facility] [id number] 03/27/21 09:12 [facility] Document 04/03/21 10:19 [facility] [id number] 04/03/21 10:33 [facility] Document 04/10/21 10:22 MT [id number] 04/10/21 10:30 MT Edit Result 04/10/21 10:22 MT (1) [id number] 04/10/21 10:31 MT Document 04/17/21 09:39 MT [id number] 04/17/21 09:51 MT (1) #3 4th lateral toe/amp site - Granulation Quality => [place] #2 L 5th toe AMP site - Exudate Amt => Small - Exudate Type => Serosanguineous - Wound Margin => Thickened & Rolled => Under - Granulation Quality => [place] - Ulcer Cleansing Soap and Water => Rinsed/Irrigated => with Saline Lower Limb Edema Present => Yes Left Calf (cm) => 31.6 Left Ankle (cm) => 21.5 03/27/21 04/03/21 04/10/21 09:04 10:19 10:22 Wound Center Nurse 1 #3 4th lateral toe/amp site -Combined with other wound No No -Current Size (cm) - Length 2 1.3 1.3 -Current Size (cm) - Width 1 0.4 0.5 -Current Size (cm) - Depth 0.4 0.4 0.4 -Total Square Cm 2 0.52 0.65 -Photo Taken No No -Epithelialization Small 1-33% None Present -Tunneling No No -Undermining/Tunneling No No -Circular Undermining No No -Exudate Amt Medium Medium Medium -Exudate Type Serosanguineous Serosanguineous -Wound Margin Distinct, Distinct, Distinct, Outline Outline Outline Attached Attached Attached -Granulation Amt Small (1-33%) Small (1-33%) Medium (34-66%) -Granulation Quality [place] -Slough/Fibrin Yes Yes Yes -Necrosis Amt Large (67-100%) Large (67-100%) Medium (34-66%) -Necrotic Tissue Type Adherent Slough Adherent Slough Adherent Slough -Texture (Dot-wound Skin Appearance) Assessed, Assessed, Assessed Scarring Scarring -Moisture (Dot-wound Skin Appearance) Assessed, Assessed, Assessed Maceration,Dry/ Maceration Scaly -Color (Dot-wound Skin Appearance) Assessed, Assessed,Palor Assessed Erythema,Palor -Temperature (Dot-wound Skin No Abnormality No Abnormality No Abnormality Appearance) (Pt Warm) (Pt Warm) (Pt Warm) -Tenderness on Palpation (Dot-wound No No Yes Skin Appearance) -Ulcer Cleansing Rinsed/ Rinsed/ Soap and Water Irrigated with Irrigated with Saline Saline -Foul Odor after Cleansing No No No -Anesthetic Used 5% Lidocaine 5% Lidocaine 4% Lidocaine Gel Gel Solution #2 L 5th toe AMP site -Combined with other wound No No -Current Size (cm) - Length 1 0.7 0.8 -Current Size (cm) - Width 0.6 0.6 0.3 -Current Size (cm) - Depth 0.3 0.2 0.2 -Total Square Cm 0.6 0.42 0.24 -Photo Taken No No -Epithelialization None Present Small 1-33% -Tunneling No No -Undermining/Tunneling No No -Circular Undermining No No Yes -Exudate Amt Medium Medium Small -Exudate Type Serosanguineous Serosanguineous Serosanguineous -Wound Margin Distinct, Distinct, Thickened & Outline Outline Rolled Under Attached Attached -Granulation Amt Small (1-33%) Large (67-100%) Medium (34-66%) -Granulation Quality [place] -Slough/Fibrin Yes Yes -Necrosis Amt Large (67-100%) Small (1-33%) Medium (34-66%) -Necrotic Tissue Type Adherent Slough Adherent Slough Adherent Slough -Texture (Dot-wound Skin Appearance) Assessed, Assessed, Assessed Scarring Scarring -Moisture (Dot-wound Skin Appearance) Assessed, Assessed Assessed Maceration,Dry/ Scaly -Color (Dot-wound Skin Appearance) Assessed, Assessed, Assessed Erythema,[place] Erythema -Temperature (Dot-wound Skin No Abnormality No Abnormality No Abnormality Appearance) (Pt Warm) (Pt Warm) (Pt Warm) -Tenderness on Palpation (Dot-wound Yes Yes Yes Skin Appearance) -Ulcer Cleansing Rinsed/ Rinsed/ Rinsed/ Irrigated with Irrigated with Irrigated with Saline Saline Saline -Foul Odor after Cleansing No No No -Anesthetic Used 5% Lidocaine 5% Lidocaine 4% Lidocaine Gel Gel Solution #1 L Grt Toe -Combined with other wound No -Current Size (cm) - Length 0.7 0.1 -Current Size (cm) - Width 0.5 0.1 -Current Size (cm) - Depth 0.1 0.1 -Total Square Cm 0.35 0.01 -Photo Taken No -Epithelialization None Present -Tunneling No -Undermining/Tunneling No -Circular Undermining No -Exudate Amt Small -Exudate Type Serosanguineous -Wound Margin Distinct, Outline Attached -Granulation Amt None Present (0 %) -Slough/Fibrin Yes -Necrosis Amt Large (67-100%) -Necrotic Tissue Type Adherent Slough -Texture (Dot-wound Skin Appearance) Assessed, Scarring -Moisture (Dot-wound Skin Appearance) Assessed,Dry/ Scaly -Color (Dot-wound Skin Appearance) Assessed, Erythema -Temperature (Dot-wound Skin No Abnormality Appearance) (Pt Warm) -Tenderness on Palpation (Dot-wound Yes Skin Appearance) -Ulcer Cleansing Rinsed/ Irrigated with Saline -Foul Odor after Cleansing No -Anesthetic Used 5% Lidocaine Gel Lower Limb Edema Present Yes Yes Yes Left Calf (cm) 33.1 31.6 31.6 Left Ankle (cm) 23.5 21.5 21.5 04/17/21 09:39 Wound Center Nurse 1 #3 4th lateral toe/amp site -Combined with other wound -Current Size (cm) - Length 1.5 -Current Size (cm) - Width 0.5 -Current Size (cm) - Depth 0.3 -Total Square Cm 0.75 -Photo Taken -Epithelialization -Tunneling -Undermining/Tunneling -Circular Undermining -Exudate Amt -Exudate Type -Wound Margin Thickened & Rolled Under -Granulation Amt Large (67-100%) -Granulation Quality [place] -Slough/Fibrin -Necrosis Amt Small (1-33%) -Necrotic Tissue Type Adherent Slough -Texture (Dot-wound Skin Appearance) Assessed -Moisture (Dot-wound Skin Appearance) Assessed -Color (Dot-wound Skin Appearance) Assessed, Ecchymosis -Temperature (Dot-wound Skin No Abnormality Appearance) (Pt Warm) -Tenderness on Palpation (Dot-wound Yes Skin Appearance) -Ulcer Cleansing Soap and Water -Foul Odor after Cleansing -Anesthetic Used 4% Lidocaine Solution #2 L 5th toe AMP site -Combined with other wound -Current Size (cm) - Length 0.1 -Current Size (cm) - Width 0.1 -Current Size (cm) - Depth 0.1 -Total Square Cm 0.01 -Photo Taken -Epithelialization -Tunneling -Undermining/Tunneling -Circular Undermining -Exudate Amt -Exudate Type -Wound Margin -Granulation Amt -Granulation Quality -Slough/Fibrin -Necrosis Amt -Necrotic Tissue Type -Texture (Dot-wound Skin Appearance) -Moisture (Dot-wound Skin Appearance) -Color (Dot-wound Skin Appearance) -Temperature (Dot-wound Skin Appearance) -Tenderness on Palpation (Dot-wound Skin Appearance) -Ulcer Cleansing -Foul Odor after Cleansing -Anesthetic Used #1 L Grt Toe -Combined with other wound -Current Size (cm) - Length -Current Size (cm) - Width -Current Size (cm) - Depth -Total Square Cm -Photo Taken -Epithelialization -Tunneling -Undermining/Tunneling -Circular Undermining -Exudate Amt -Exudate Type -Wound Margin -Granulation Amt -Slough/Fibrin -Necrosis Amt -Necrotic Tissue Type -Texture (Dot-wound Skin Appearance) -Moisture (Dot-wound Skin Appearance) -Color (Dot-wound Skin Appearance) -Temperature (Dot-wound Skin Appearance) -Tenderness on Palpation (Dot-wound Skin Appearance) -Ulcer Cleansing -Foul Odor after Cleansing -Anesthetic Used Lower Limb Edema Present NA Left Calf (cm) Left Ankle (cm) WC - Nurse 2 - General Ulcer CM Notes Start: 03/27/21 09:04 Freq: Status: Active Protocol: Activity Type Activity Date Activity User E-Sign Co-Sign Detail Recorded Client Recorded Date Recorded By Document 03/27/21 09:16 [id number] 03/27/21 09:23 Document 04/03/21 11:04 [id number] 04/03/21 11:16 Document 04/10/21 10:41 [id number] 04/10/21 10:46 Document 04/17/21 10:08 [id number] 04/17/21 10:11 03/27/21 04/03/21 04/10/21 09:16 11:04 10:41 Wound Center Nurse 2 #3 4th lateral toe/amp site -Time 09:18 11:07 10:42 -Correct Patient Yes Yes Yes -Correct Side, Site, Position Yes Yes Yes -Correct Procedure Yes Yes Yes -Procedure Performed Yes Yes Yes -Type of Procedure Debridement Debridement Debridement -Clinical Debridement Subcutaneous Subcutaneous Subcutaneous -Tissue Removed Subcutaneous Subcutaneous Subcutaneous -Post Debridement (cm) - Length 1.7 1.4 1.4 -Post Debridement (cm) - Width 1.0 0.4 0.5 -Post Debridement (cm) - Depth 0.4 0.4 0.4 -Total Square (Post) (cm) 1.70 0.56 0.70 -Area of Debridement (cm) - Length 1.7 1.4 1.4 -Area of Debridement (cm) - Width 1.0 0.4 0.5 -Total Square (Area) (cm) 1.70 0.56 0.70 -Tunneling No No No -Undermining/Tunneling No No No -Circular Undermining No No No -Wound/Ulcer Outcome Not Healed Not Healed Not Healed -Ulcer Cleansing Rinsed/ Rinsed/ Rinsed/ Irrigated with Irrigated with Irrigated with Saline Saline Saline -Foul Odor after Cleansing No No No -Bioengineered Tissue No No No -Bleeding Controlled with Pressure Pressure Pressure -Offloading No Yes -Type of Offloading Surgical Shoe Surgical Shoe -Treatment Response Procedure Procedure Procedure Tolerated Well Tolerated Well Tolerated Well -Debridement - Subq, 1st 20sq cm Yes Yes No #2 L 5th toe AMP site -Time 09:19 11:12 10:42 -Correct Patient Yes Yes Yes -Correct Side, Site, Position Yes Yes Yes -Correct Procedure Yes Yes Yes -Procedure Performed Yes Yes Yes -Type of Procedure Debridement Debridement Debridement -Clinical Debridement Subcutaneous Bone Subcutaneous -Tissue Removed Subcutaneous Subcutaneous -Post Debridement (cm) - Length 1.0 0.8 0.8 -Post Debridement (cm) - Width 0.6 0.6 0.4 -Post Debridement (cm) - Depth 0.2 0.4 0.2 -Total Square (Post) (cm) 0.60 0.48 0.32 -Area of Debridement (cm) - Length 1.0 0.8 0.8 -Area of Debridement (cm) - Width 0.6 0.6 0.4 -Total Square (Area) (cm) 0.60 0.48 0.32 -Tunneling No No No -Undermining/Tunneling No No No -Circular Undermining No No No -Wound/Ulcer Outcome Not Healed Not Healed Not Healed -Ulcer Cleansing Rinsed/ Rinsed/ Rinsed/ Irrigated with Irrigated with Irrigated with Saline Saline Saline -Foul Odor after Cleansing No No No -Bioengineered Tissue No No No -Bleeding Controlled with Pressure Pressure Pressure -Offloading No Yes Yes -Type of Offloading Surgical Shoe Surgical Shoe -Treatment Response Procedure Procedure Procedure Tolerated Well Tolerated Well Tolerated Well -Debridement - Subq, 1st 20sq cm No Yes -Debridement - Bone, 1st 20sq cm Yes #1 L Grt Toe -Time 09:19 11:16 10:43 -Correct Patient Yes Yes No -Correct Side, Site, Position Yes Yes No -Correct Procedure Yes Yes No -Procedure Performed No Yes No -Type of Procedure Debridement -Clinical Debridement Subcutaneous -Tissue Removed Subcutaneous -Post Debridement (cm) - Length 0 0.4 0 -Post Debridement (cm) - Width 0 0.2 0 -Post Debridement (cm) - Depth 0 0.2 0 -Total Square (Post) (cm) 0 0.08 0 -Area of Debridement (cm) - Length 0.4 0 -Area of Debridement (cm) - Width 0.2 0 -Total Square (Area) (cm) 0.08 0 -Tunneling No No -Undermining/Tunneling No No -Circular Undermining No No -Wound/Ulcer Outcome Healed- Not Healed Healed- Epithelialized Epithelialized -Ulcer Cleansing Rinsed/ Rinsed/ Irrigated with Irrigated with Saline Saline -Foul Odor after Cleansing No No -Bioengineered Tissue No No -Bleeding Controlled with Pressure Pressure -Offloading Yes Yes -Type of Offloading Surgical Shoe Surgical Shoe -Treatment Response Procedure Procedure Tolerated Well Tolerated Well -Debridement - Subq, 1st 20sq cm No Pain Scale: 0-10 Numeric Is Patient Pain Free? Yes Yes Yes 04/17/21 10:08 Wound Center Nurse 2 #3 4th lateral toe/amp site -Time 10:08 -Correct Patient Yes -Correct Side, Site, Position Yes -Correct Procedure Yes -Procedure Performed Yes -Type of Procedure Debridement -Clinical Debridement Subcutaneous -Tissue Removed Subcutaneous -Post Debridement (cm) - Length 1.6 -Post Debridement (cm) - Width 0.5 -Post Debridement (cm) - Depth 0.3 -Total Square (Post) (cm) 0.80 -Area of Debridement (cm) - Length 1.6 -Area of Debridement (cm) - Width 0.5 -Total Square (Area) (cm) 0.80 -Tunneling No -Undermining/Tunneling No -Circular Undermining No -Wound/Ulcer Outcome Not Healed -Ulcer Cleansing Rinsed/ Irrigated with Saline -Foul Odor after Cleansing No -Bioengineered Tissue No -Bleeding Controlled with Pressure -Offloading Yes -Type of Offloading Surgical Shoe -Treatment Response Procedure Tolerated Well -Debridement - Subq, 1st 20sq cm No #2 L 5th toe AMP site -Time 10:08 -Correct Patient Yes -Correct Side, Site, Position Yes -Correct Procedure Yes -Procedure Performed Yes -Type of Procedure Debridement -Clinical Debridement Subcutaneous -Tissue Removed Subcutaneous -Post Debridement (cm) - Length 0.7 -Post Debridement (cm) - Width 0.6 -Post Debridement (cm) - Depth 0.2 -Total Square (Post) (cm) 0.42 -Area of Debridement (cm) - Length 0.7 -Area of Debridement (cm) - Width 0.6 -Total Square (Area) (cm) 0.42 -Tunneling No -Undermining/Tunneling No -Circular Undermining No -Wound/Ulcer Outcome Not Healed -Ulcer Cleansing Rinsed/ Irrigated with Saline -Foul Odor after Cleansing No -Bioengineered Tissue No -Bleeding Controlled with Pressure -Offloading Yes -Type of Offloading Surgical Shoe -Treatment Response Procedure Tolerated Well -Debridement - Subq, 1st 20sq cm Yes -Debridement - Bone, 1st 20sq cm #1 L Grt Toe -Time -Correct Patient -Correct Side, Site, Position -Correct Procedure -Procedure Performed -Type of Procedure -Clinical Debridement -Tissue Removed -Post Debridement (cm) - Length -Post Debridement (cm) - Width -Post Debridement (cm) - Depth -Total Square (Post) (cm) -Area of Debridement (cm) - Length -Area of Debridement (cm) - Width -Total Square (Area) (cm) -Tunneling -Undermining/Tunneling -Circular Undermining -Wound/Ulcer Outcome -Ulcer Cleansing -Foul Odor after Cleansing -Bioengineered Tissue -Bleeding Controlled with -Offloading -Type of Offloading -Treatment Response -Debridement - Subq, 1st 20sq cm Pain Scale: 0-10 Numeric Is Patient Pain Free? Yes WC - Nurse 3 - General Ulcer D/C NN Start: 03/27/21 09:04 Freq: Status: Active Protocol: Activity Type Activity Date Activity User E-Sign Co-Sign Detail Recorded Client Recorded Date Recorded By Document 03/27/21 09:37 [facility] [id number] 03/27/21 09:38 [facility] Document 04/03/21 11:22 [facility] [id number] 04/03/21 11:24 [facility] Document 04/10/21 11:10 KR [id number] 04/10/21 11:11 KR Document 04/17/21 10:24 NE [id number] 04/17/21 10:25 MT 03/27/21 04/03/21 04/10/21 09:37 11:22 11:10 Wound Care Nurse 3 #3 4th lateral toe/amp site -Ulcer Cleansing Rinsed/ Rinsed/ Irrigated with Irrigated with Saline Saline -Foul Odor after Cleansing No No -Primary Dressing Applied Fibracol Plus Fibracol Plus Fibracol Plus 4x4 4x4 4x4 -Primary Dressing Covered/Secured with Dry Gauze & Dry Gauze & Dry Gauze & Roll Gauze, Roll Gauze, Roll Gauze Secured with Secured with Tape Tape -Other Covering drsg per rb rn -Fibracol Plus 4x4 1 1 1 #2 L 5th toe AMP site -Ulcer Cleansing Rinsed/ Rinsed/ Irrigated with Irrigated with Saline Saline -Foul Odor after Cleansing No No -Primary Dressing Applied Fibracol Plus Fibracol Plus 4x4 4x4 -Primary Dressing Covered/Secured with Dry Gauze & Dry Gauze & Roll Gauze, Roll Gauze, Secured with Secured with Tape Tape -Other Covering drsg per rb rn -Fibracol Plus 4x4 0 0 #1 L Grt Toe -Ulcer Cleansing Rinsed/ Irrigated with Saline -Foul Odor after Cleansing No -Primary Dressing Applied Fibracol Plus 4x4 -Primary Dressing Covered/Secured with Dry Gauze & Roll Gauze, Secured with Tape -Other Covering drsg per rb rn -Fibracol Plus 4x4 0 Left -Compression Wrap Pedro Wrap Pedro Wrap -Other own pedro wraps applied Treatment Response Procedure Procedure Tolerated Well Tolerated Well Pain Scale: 0-10 Numeric Is Patient Pain Free? Yes Yes Yes WC - Visit Discharge Discharge Condition Stable Stable Stable Ambulatory Status Ambulatory,Cane Ambulatory Ambulatory Transportation Private Auto Private Auto Private Auto Accompanied by benjamin jamil Medication Reconcilliation completed & No provided to patient/care provider Clinical Summary of Care Provided No Notes: Facility Type [facility] 04/17/21 10:24 Wound Care Nurse 3 #3 4th lateral toe/amp site -Ulcer Cleansing -Foul Odor after Cleansing -Primary Dressing Applied Fibracol Plus 4x4 -Primary Dressing Covered/Secured with Dry Gauze & Roll Gauze, Secured with Tape -Other Covering -Fibracol Plus 4x4 1 #2 L 5th toe AMP site -Ulcer Cleansing -Foul Odor after Cleansing -Primary Dressing Applied -Primary Dressing Covered/Secured with -Other Covering -Fibracol Plus 4x4 #1 L Grt Toe -Ulcer Cleansing -Foul Odor after Cleansing -Primary Dressing Applied -Primary Dressing Covered/Secured with -Other Covering -Fibracol Plus 4x4 Left -Compression Wrap Pedro Wrap -Other Treatment Response Pain Scale: 0-10 Numeric Is Patient Pain Free? WC - Visit Discharge Discharge Condition Stable Ambulatory Status Ambulatory Transportation Private Auto Accompanied by Medication Reconcilliation completed & No provided to patient/care provider Clinical Summary of Care Provided Yes Notes: GRANDDAUGHTER TAUGHT HOW TO DRESS WOUND Facility Type Assessment/Plan Assessment/Plan (1) Non-pressure chronic ulcer of other part of left foot with necrosis of bone: CODE(S): L97.524 - Non-pressure chronic ulcer of other part of left foot with necrosis of bone (2) Non-pressure chronic ulcer of other part of left foot with fat layer exposed: CODE(S): L97.522 - Non-pressure chronic ulcer of other part of left foot with fat layer exposed (3) Osteomyelitis: CODE(S): M86.9 - Osteomyelitis, unspecified QUALIFIERS: Osteomyelitis type: subacute Osteomyelitis location: foot Laterality: left Qualified Code(s): M86.272 - Subacute osteomyelitis, left ankle and foot (4) PAD (peripheral artery disease): CODE(S): I73.9 - Peripheral vascular disease, unspecified (5) History of tobacco abuse: CODE(S): Z87.891 - Personal history of nicotine dependence (6) Ischaemic rest pain of lower extremity: CODE(S): M79.606 - Pain in leg, unspecified; I99.8 - Other disorder of circulatory system (7) Delayed wound healing: CODE(S): T14.8XXD - Other injury of unspecified body region, subsequent encounter (8) Amputated toe: CODE(S): S98.139A - Complete traumatic amputation of one unspecified lesser toe, initial encounter QUALIFIERS: Laterality: left Qualified Code(s): S98.132A - Complete traumatic amputation of one left lesser toe, initial encounter (9) Type 2 diabetes mellitus with diabetic polyneuropathy: CODE(S): E11.42 - Type 2 diabetes mellitus with diabetic polyneuropathy PLAN: Patient seen and examined with family member present. She had recent vascular surgery intervention on with Dr. Nicholson again. Her prior vascular studies 03/11/21 show bilateral DP and PT monphasic pulses. JENY left 0.4 at PT and 1.35 at DP and on right 0.66 at PT and 0.9 at DP with TBI of 0.19. No TBI obtained on left. She was previously treated with Levaquin per Dr. Skaggs, infectious disease specialist. Patient had cultures obtained 02/05/2021 demonstrating Pseudomonas. Discussed possibility of colonization with Pseudomonas with patient and family members. Patient has had Pseudomonas consistently on her wound cultures for the last several months with multiple rounds of treatment. Culture of 5th metatarsal bone 03/05/21 was positive for PsAg. She was reassured no local signs infection noted today. To continue with diligent antibacterial soap and water wash with wound dressing changes. Every other day Aquacel silver dressing changes to ulceration sites covered with dry sterile dressing. To wash with soap and water prior. Patient is noted to have home health care. She has been able to change dressing on her own and will continue discontinuing home health care when she returns for hyperbaric oxygen therapy in which she can have her dressing changed here in the facility. Reviewed proper wound care with patient. Discussed with the patient the importance of offloading the sites with wide enough shoe gear if she is to be wearing shoes, proper diet, good blood sugar control. Patient has used Darci in the past nutritional supplementation. She continues to use this twice a day. Patient was offered nutritional counseling with a executive relations specialist. She is noted to have had counseling while in the hospital. Patient has offloaded surgical shoe. Discussed with the patient all concerning signs and symptoms to watch out for and to contact office if he either presents. Application for TheraSkin skin graft is approved but there is a portion that patient has cover [id number]. Patient will discuss with family if this is doable if she wants to proceed with this she will let us know. Resubmitted to see if her [id number] cost is changed since previous submission. Patient is noted to still be responsible for $325 per application. This is not doable per patient. Patient and family may reconsider pending vascular results with Dr. Nicholson. Patient has a diabetic foot ulceration that has failed to show measurable signs of healing after completing 30 consecutive days of standard wound care. There is confirmed osteomyelitis to left 5th metatarsal even though patient has had multiple rounds of antibiotics and consultations with infectious disease. Patient would likely be a good candidate for hyperbaric oxygen therapy. This would include further work up with labs, imaging, and clearance consultation. If patient is approved for hyperbaric oxygen therapy our goals would be to get progression and healing of patient's wounds while continuing regular debridements, monitoring, offloading, medical optimizing and monitoring. Patient is noted to have been denied hyperbarics in the past but with new osteomyelitis we are hopeful that she will be approved for therapy in order to obtain wound healing. She is concurrently in the process of getting cleared and scheduled for hyperbaric oxygen therapies and will also get rescheduled. Patient is to follow-up in 1 week. This note was generated with [employer] software. It may contain incorrect words, spelling, and punctuation that were not noted in checking the note before signing.
== END 2021-04-23 23:59 ==
LOC: WC 09:30
PROVIDERS: Nurse Practitioner; PCP Family Medicine; Referring Provider Podiatrist; Visit Provider Podiatrist
DX: E11.621 Type 2 diabetes mellitus with foot ulcer (principal); L97.524 Non-pressure chronic ulcer of other part of left foot with necrosis of bone; E11.42 Type 2 diabetes mellitus with diabetic polyneuropathy; L97.522 Non-pressure chronic ulcer of other part of left foot with fat layer exposed; M86.272 Subacute osteomyelitis, left ankle and foot; T14.8XXD Other injury of unspecified body region, subsequent encounter; I73.9 Peripheral vascular disease, unspecified; S98.139A Complete traumatic amputation of one unspecified lesser toe, initial encounter; E11.52 Type 2 diabetes mellitus with diabetic peripheral angiopathy with gangrene; I77.9 Disorder of arteries and arterioles, unspecified; Z79.4 Long term (current) use of insulin; Z87.891 Personal history of nicotine dependence
CPT/HCPCS: 11042; 11044; 82962

== ENCOUNTER 2021-05-23 08:00 | Outpatient (RCR) | payer MEDICARE, SELFPAY ==
[2021-04-24 00:25] VITALS: BP 153/57; PULSE 69; RESP 18; TEMP 36.2; BMI 23.5
[2021-04-24 08:14] VITALS: BP 154/62; PULSE 68; TEMP 36.3; BMI 23.5
--- NOTE | 2021-04-24 10:31 | PN.PCM_ITS ---
History of Present Illness Date of Service: 04/24/21 Chief Complaint: Left fourth and fifth digit amputation site ulceration PAD History of Wound: Patient had intervention done by Dr. Nicholson on 06/12/2020. Patient saw Dr. Tenorio June 26, 2020 and was started on 100mg gabapentin TID. She has noticed some improvement in her pain. Patient had further intervention with Dr. Nicholson on October 11, 2020. Patient relates having to be transferred to [facility] for this. 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 Amputation of 4th digit with debridement of 1st and 5th digit ulcerations was performed 07/08/20. 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 Patient underwent left fifth digit amputation with attempted delayed closure of fourth digit amputation site ulceration and with application of amnio fix grafting to all sites by Dr. López on 01/03/2021. The attempt for delayed primary closure of the previous fourth digit amputation site ulceration was not successful and ulceration here remains. Cultures at this time are also positive for Pseudomonas. 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 Cultures from 02/05/2021 were also positive for Pseudomonas. Patient has had multiple rounds of antibiotics and consultation with infectious disease over this infection. Patient is noted to have return of vascular symptom complaints especially to left lower extremity. She has appointment with Dr. Nicholson for reassessment with the understanding she might need possible further intervention. Patient continues care at the wound care center for remaining left foot wounds. Patient is noted to have been approved for [employer] but was not fully covered and would not be able to cover the remaining financial expense. Patient has had other modalities of treatment to include HBO therapy. She did have a revascularization procedure scheduled with Dr. Nicholson on 18. She is also scheduled to undergo hyperbaric oxygen therapy treatment today. Progress of Wound: Improving Objective Data Objective Data Vital Signs: Vital Signs Temp Pulse Resp BP 97.3 F L 68 18 154/62 H 04/24/21 08:14 04/24/21 08:14 04/24/21 00:25 04/24/21 08:14 Weight: 149 kg Body Mass Index (BMI) 23.5 Physical Exam Extremity Extremity Narrative: no cyanosis, no calf tenderness, diminished pulses muscle wasting noted. no tenderness Amputation lateral left forefoot No fluctuance or bogginess on palpation Skin Skin Narrative: no purulence, no erythema, no streaking, no odor, no infection. Adjacent skin is atrophic. hallux is healed with full epithelialization. The distal most lateral foot ulcer has a granular base. The distal most lateral ulcer has a granular base and no longer visualized bone Neuro Neuro Narrative: lack of normal epicritic sensation via light touch consistent with neuropathy Debridement Note Debridement Note Wound debrided: lateral left foot (distal most, lateral most) Wound Grade/Stage: 1,3 Type of Debridement: Excisional debridement Anesthesia Used: 4% Lidocaine Solution Depth: in the subcutaneous layer Percentage of wound debrided: 100 Instrument Used: #15 blade Tissue Removed: fibrous, devitalized subcutaneous, biofilm, slough Severity: Fat Layer Exposed Amount of bleeding with debridement: Mild Bleeding Controlled with: Pressure Patient tolerated procedure: Patient tolerated procedure well Post-Debridement Measurements and Additional Note: Post-Debridement Measurements/Treatment - Nurse 1 - General Ulcer Assessment Start: 04/24/21 08:14 Freq: Status: Active Protocol: ESVIN Activity Type Activity Date Activity User E-Sign Co-Sign Detail Recorded Client Recorded Date Recorded By Document 04/24/21 08:14 [id number] 04/24/21 08:24 CARIE 04/24/21 08:14 - Today's Visit Information Type of service Follow-up Visit (Physician/REFINERY OPERATOR HELPER CRUDE UNIT ) Arrival Mode Ambulatory Transfer Assistance None Patient Identification Verified (Name & Yes ) Patient Requires Transmission-Based No Precautions Height and Weight Body Mass Index (BMI) 23.5 BMI Classification Normal Vital Signs Temperature (97.8 F-99.1 F) 97.3 F L Temperature Source Temporal Pulse Rate (60-100) 68 Pulse Location Monitor Respiratory rate source Observation Blood Pressure (90/60-120/80) 154/62 H Blood Pressure Mean (mm Hg) 92 Source Monitor Position Sitting Blood Pressure Location Left Arm History Since Last Visit- (Skip if this is Patient's initial visit) Have you changed medications since your No last visit? Any new allergies or adverse reactions No Had a fall/change in ADL's that may No increase risk of falls Signs or symptoms of abuse and/or No neglect since last visit Have you been in the hospital since your No last visit? Has dressing in place as prescribed Yes Has compression in place as prescribed Yes Has offloadiing in place as prescribed No Experienced any changes in pain level or No management Pain Scale: 0-10 Numeric Is Patient Pain Free? Yes WC - Nurse 1 - General Ulcer Measurement Start: 04/24/21 08:14 Freq: Status: Active Protocol: Activity Type Activity Date Activity User E-Sign Co-Sign Detail Recorded Client Recorded Date Recorded By Document 04/24/21 08:14 RB [id number] 04/24/21 08:24 RB 04/24/21 08:14 Wound Center Nurse 1 #3 4th lateral toe/amp site -Combined with other wound No -Current Size (cm) - Length 1.1 -Current Size (cm) - Width 0.4 -Current Size (cm) - Depth 0.4 -Total Square Cm 0.44 -Photo Taken No -Tunneling No -Undermining/Tunneling No -Exudate Amt Large -Exudate Type Serosanguineous -Wound Margin Thickened & Rolled Under -Granulation Amt Medium (34-66%) -Granulation Quality [place] -Slough/Fibrin Yes -Necrosis Amt None Present (0 %) -Necrotic Tissue Type Adherent Slough -Structure Exposed N/A -Texture (Dot-wound Skin Appearance) Assessed, Scarring -Moisture (Dot-wound Skin Appearance) Assessed -Color (Dot-wound Skin Appearance) Assessed -Temperature (Dot-wound Skin No Abnormality Appearance) (Pt Warm) -Tenderness on Palpation (Dot-wound No Skin Appearance) -Ulcer Cleansing Wound Cleanser -Foul Odor after Cleansing No -Anesthetic Used 5% Lidocaine Gel #2 L 5th toe AMP site -Combined with other wound No -Current Size (cm) - Length 0.4 -Current Size (cm) - Width 0.4 -Current Size (cm) - Depth 0.3 -Total Square Cm 0.16 -Tunneling No -Undermining/Tunneling No -Circular Undermining No -Exudate Amt Medium -Exudate Type Serosanguineous -Wound Margin Thickened & Rolled Under -Granulation Amt Medium (34-66%) -Granulation Quality [place] -Slough/Fibrin Yes -Necrosis Amt Small (1-33%) -Necrotic Tissue Type Adherent Slough -Structure Exposed N/A -Texture (Dot-wound Skin Appearance) Assessed, Scarring -Moisture (Dot-wound Skin Appearance) Assessed -Color (Dot-wound Skin Appearance) Assessed -Temperature (Dot-wound Skin No Abnormality Appearance) (Pt Warm) -Tenderness on Palpation (Dot-wound No Skin Appearance) -Ulcer Cleansing Wound Cleanser -Foul Odor after Cleansing No -Anesthetic Used 5% Lidocaine Gel WC - Nurse 2 - General Ulcer CM Notes Start: 04/24/21 08:14 Freq: Status: Active Protocol: Activity Type Activity Date Activity User E-Sign Co-Sign Detail Recorded Client Recorded Date Recorded By Document 04/24/21 08:35 RICHI [id number] 04/24/21 08:40 RICHI 04/24/21 08:35 Wound Center Nurse 2 #3 4th lateral toe/amp site -Time 08:36 -Correct Patient Yes -Correct Side, Site, Position Yes -Correct Procedure Yes -Procedure Performed Yes -Type of Procedure Debridement -Clinical Debridement Subcutaneous -Tissue Removed Subcutaneous -Post Debridement (cm) - Length 1.5 -Post Debridement (cm) - Width 0.5 -Post Debridement (cm) - Depth 0.3 -Total Square (Post) (cm) 0 -Area of Debridement (cm) - Length 1.5 -Area of Debridement (cm) - Width 0.5 -Total Square (Area) (cm) 0.75 -Tunneling No -Undermining/Tunneling No -Circular Undermining No -Wound/Ulcer Outcome Not Healed -Ulcer Cleansing Rinsed/ Irrigated with Saline -Foul Odor after Cleansing No -Bioengineered Tissue No -Bleeding Controlled with Pressure -Offloading Yes -Type of Offloading Surgical Shoe -Treatment Response Procedure Tolerated Well -Debridement - Subq, 1st 20sq cm No #2 L 5th toe AMP site -Time 08:36 -Correct Patient Yes -Correct Side, Site, Position Yes -Correct Procedure Yes -Procedure Performed Yes -Type of Procedure Debridement -Clinical Debridement Subcutaneous -Tissue Removed Subcutaneous -Post Debridement (cm) - Length 0.8 -Post Debridement (cm) - Width 0.6 -Post Debridement (cm) - Depth 0.2 -Total Square (Post) (cm) 0.48 -Area of Debridement (cm) - Length 0.8 -Area of Debridement (cm) - Width 0.6 -Total Square (Area) (cm) 0.48 -Tunneling No -Undermining/Tunneling No -Circular Undermining No -Wound/Ulcer Outcome Not Healed -Ulcer Cleansing Rinsed/ Irrigated with Saline -Foul Odor after Cleansing No -Bioengineered Tissue No -Bleeding Controlled with Pressure -Offloading Yes -Type of Offloading Surgical Shoe -Treatment Response Procedure Tolerated Well -Debridement - Subq, 1st 20sq cm Yes Pain Scale: 0-10 Numeric Is Patient Pain Free? Yes - Nurse 3 - General Ulcer D/C NN Start: 04/24/21 08:14 Freq: Status: Active Protocol: Activity Type Activity Date Activity User E-Sign Co-Sign Detail Recorded Client Recorded Date Recorded By Document 04/24/21 08:50 DL [id number] 04/24/21 08:51 DL 04/24/21 08:50 Wound Care Nurse 3 #3 4th lateral toe/amp site -Ulcer Cleansing Soap and Water -Foul Odor after Cleansing No -Primary Dressing Applied Fibracol Plus 4x4 -Primary Dressing Covered/Secured with Dry Gauze & Roll Gauze, Secured with Tape -Fibracol Plus 4x4 1 #2 L 5th toe AMP site -Ulcer Cleansing Soap and Water -Foul Odor after Cleansing No -Other Dressing fibracol -Primary Dressing Covered/Secured with Dry Gauze & Roll Gauze, Secured with Tape Treatment Response Procedure Tolerated Well Pain Scale: 0-10 Numeric Is Patient Pain Free? Yes WC - Visit Discharge Discharge Condition Stable Ambulatory Status Ambulatory Transportation Private [facility] Facility Type Home Health Orders Sent Yes Assessment/Plan Assessment/Plan (1) Non-pressure chronic ulcer of other part of left foot with necrosis of bone: CODE(S): L97.524 - Non-pressure chronic ulcer of other part of left foot with necrosis of bone (2) Non-pressure chronic ulcer of other part of left foot with fat layer exposed: CODE(S): L97.522 - Non-pressure chronic ulcer of other part of left foot with fat layer exposed (3) Osteomyelitis: CODE(S): M86.9 - Osteomyelitis, unspecified QUALIFIERS: Osteomyelitis type: subacute Osteomyelitis location: foot Laterality: left Qualified Code(s): M86.272 - Subacute osteomyelitis, left ankle and foot (4) PAD (peripheral artery disease): CODE(S): I73.9 - Peripheral vascular disease, unspecified (5) History of tobacco abuse: CODE(S): Z87.891 - Personal history of nicotine dependence (6) Ischaemic rest pain of lower extremity: CODE(S): M79.606 - Pain in leg, unspecified; I99.8 - Other disorder of circulatory system (7) Delayed wound healing: CODE(S): T14.8XXD - Other injury of unspecified body region, subsequent encounter (8) Amputated toe: CODE(S): S98.139A - Complete traumatic amputation of one unspecified lesser toe, initial encounter QUALIFIERS: Laterality: left Qualified Code(s): S98.132A - Complete traumatic amputation of one left lesser toe, initial encounter (9) Type 2 diabetes mellitus with diabetic polyneuropathy: CODE(S): E11.42 - Type 2 diabetes mellitus with diabetic polyneuropathy PLAN: Patient seen and examined with family member present. She had recent vascular surgery intervention on with Dr. Nicholson again. Her prior vascular studies 03/11/21 show bilateral DP and PT monphasic pulses. JENY left 0.4 at PT and 1.35 at DP and on right 0.66 at PT and 0.9 at DP with TBI of 0.19. No TBI obtained on left. She was previously treated with Levaquin per Dr. Skaggs, infectious disease specialist. Patient had cultures obtained 02/05/2021 demonstrating Pseudomonas. Discussed possibility of colonization with Pseudomonas with patient and family members. Patient has had Pseudomonas consistently on her wound cultures for the last several months with multiple rounds of treatment. Culture of 5th metatarsal bone 03/05/21 was positive for PsAg. She was reassured no local signs infection noted today. To continue with diligent antibacterial soap and water wash with wound dressing changes. Every other day Aquacel silver dressing changes to ulceration sites covered with dry sterile dressing. To wash with soap and water prior. She has done well with this so far. Reviewed proper wound care with patient. Discussed with the patient the importance of offloading the sites with wide enough shoe gear if she is to be wearing shoes, proper diet, good blood sugar control. Patient has used Darci in the past nutritional supplementation. She continues to use this twice a day. Patient was offered nutritional counseling with a cutlet maker pork. She is noted to have had counseling while in the hospital. Patient has offloaded surgical shoe. Discussed with the patient all concerning signs and symptoms to watch out for and to contact office if he either presents. Application for TheraSkin skin graft is approved but there is a portion that patient has cover [id number]. Patient will discuss with family if this is doable if she wants to proceed with this she will let us know. Resubmitted to see if her [id number] cost is changed since previous submission. Patient is noted to still be responsible for $325 per application. This is not doable per patient. Patient and family may reconsider pending vascular results with Dr. Nicholson. Patient has a diabetic foot ulceration that has failed to show measurable signs of healing after completing 30 consecutive days of standard wound care. There is confirmed osteomyelitis to left 5th metatarsal even though patient has had multiple rounds of antibiotics and consultations with infectious disease. Abida hussein would likely be a good candidate for hyperbaric oxygen therapy. This would include further work up with labs, imaging, and clearance consultation. If patient is approved for hyperbaric oxygen therapy our goals would be to get progression and healing of patient's wounds while continuing regular debridements, monitoring, offloading, medical optimizing and monitoring. Patient is noted to have been denied hyperbarics in the past but with new osteomyelitis we are hopeful that she will be approved for therapy in order to obtain wound healing. She will proceed with hyperbaric oxygen therapy this morning. Patient is to follow-up in 1 week. This note was generated with [employer] dictation software. It may contain incorrect words, spelling, and punctuation that were not noted in checking the note before signing.
[2021-04-24 11:37] VITALS: BP 131/72; BP 185/62; PULSE 60; PULSE 66; RESP 18; TEMP 36; TEMP 36.5
[2021-04-25 08:10] LABS: Bedside Glucose 87 mg/dL (70-110)
[2021-04-25 08:20] LABS: Bedside Glucose 93 mg/dL (70-110)
[2021-04-26 08:01] LABS: Bedside Glucose 151 mg/dL (70-110)
[2021-04-29 07:55] LABS: Bedside Glucose 194 mg/dL (70-110)
--- NOTE | 2021-04-29 08:42 | HBO.PN.PCM_ITS ---
History of Present Illness Date of Service: 04/29/21 Chief Complaint: Left fourth and fifth digit amputation site ulceration PAD History of Wound: Patient had intervention done by Dr. Nicholson on 06/12/2020. Patient saw Dr. Tenorio June 26, 2020 and was started on 100mg gabapentin TID. She has noticed some improvement in her pain. Patient had further intervention with Dr. Nicholson on October 11, 2020. Patient relates having to be transferred to [facility] for this. 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 Amputation of 4th digit with debridement of 1st and 5th digit ulcerations was performed 07/08/20. 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 Patient underwent left fifth digit amputation with attempted delayed closure of fourth digit amputation site ulceration and with application of amnio fix grafting to all sites by Dr. López on 01/03/2021. The attempt for delayed primary closure of the previous fourth digit amputation site ulceration was not successful and ulceration here remains. Cultures at this time are also positive for Pseudomonas. 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 Cultures from 02/05/2021 were also positive for Pseudomonas. Patient has had multiple rounds of antibiotics and consultation with infectious disease over this infection. Patient is noted to have return of vascular symptom complaints especially to left lower extremity. She has appointment with Dr. Nicholson for reassessment with the understanding she might need possible further intervention. Patient continues care at the wound care center for remaining left foot wounds. Patient is noted to have been approved for [employer] but was not fully covered and would not be able to cover the remaining financial expense. Patient has had other modalities of treatment to include HBO therapy. She did have a revascularization procedure scheduled with Dr. Nicholson on 18. She is also scheduled to undergo hyperbaric oxygen therapy treatment today. Subjective Subjective Hyperbaric oxygen therapy was administered as per the facility's for protocol. Today's session represents the 2nd session of a planned 20 such sessions. Hyperbaric oxygen therapy was administered at 2 kaylan for 90 minutes with no air breaks. Bilateral eustachian tubes intact. The patient tolerated the full treatment. Vital signs remained stable. She was discharged in good condition. See blood sugars documented elsewhere. Objective Data Objective Data Vital Signs: Vital Signs Temp Pulse Resp BP 97.7 F L 66 18 131/72 H 04/24/21 11:37 04/24/21 11:37 04/24/21 11:37 04/24/21 11:37 Weight: 328 lb 7.82 oz Body Mass Index (BMI) 23.5 Lab / Micro Data Labs: Laboratory Results - last 24 hr 04/29/21 07:53: POC Glucose 194 H Exam Physical Exam Const alert, oriented x3 and no apparent distress HEENT normocephalic HEENT Narrative: Small amount of old drainage around the eustachian tube in the left tympanic membrane, eustachian tube in the right tympanic membrane intact Chest inspection of chest normal Resp normal respiratory effort Effort and Inspection: able to speak in complete sentences Auscultation: clear to auscultation bilaterally Cardio regular rate and regular rhythm Psych mental status grossly normal Assessment/Plan Assessment/Plan (1) Ulcer of left foot with bone involvement without evidence of necrosis: CODE(S): L97.526 - 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 without evidence of necrosis (2) Osteomyelitis: CODE(S): M86.9 - Osteomyelitis, unspecified QUALIFIERS: Laterality: left Osteomyelitis location: foot Osteo myelitis type: subacute Qualified Code(s): M86.272 - Subacute osteomyelitis, left ankle and foot PLAN: The patient tolerated and is benefiting from hyperbaric oxygen therapy. Hyperbaric oxygen therapy will be continued as per the patient's medical plan. (3) Type 2 diabetes mellitus with diabetic polyneuropathy: CODE(S): E11.42 - Type 2 diabetes mellitus with diabetic polyneuropathy
[2021-04-29 08:49] VITALS: BP 129/75; BP 142/87; PULSE 64; PULSE 69; RESP 16; RESP 17; TEMP 36.1
[2021-04-29 10:38] LABS: Bedside Glucose 76 mg/dL (70-110)
[2021-04-30 07:56] LABS: Bedside Glucose 163 mg/dL (70-110)
[2021-04-30 08:26] VITALS: BP 149/63; BP 159/71; PULSE 58; RESP 16; TEMP 36.1
[2021-04-30 10:15] LABS: Bedside Glucose 94 mg/dL (70-110)
--- NOTE | 2021-04-30 16:39 | HBO.PN.PCM_ITS ---
History of Present Illness Date of Service: 04/30/21 Chief Complaint: Diabetic foot ulceration?left foot Left fourth and fifth digit amputation site ulceration Peripheral arterial occlusive disease History of Wound: Patient had intervention done by Dr. Nicholson on 06/12/2020. Patient saw Dr. Tenorio June 26, 2020 and was started on 100mg gabapentin TID. She has noticed some improvement in her pain. Patient had further intervention with Dr. Nicholson on October 11, 2020. Patient relates having to be transferred to [facility] for this. 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 Amputation of 4th digit with debridement of 1st and 5th digit ulcerations was performed 07/08/20. 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 Patient underwent left fifth digit amputation with attempted delayed closure of fourth digit amputation site ulceration and with application of amnio fix grafting to all sites by Dr. López on 01/03/2021. The attempt for delayed primary closure of the previous fourth digit amputation site ulceration was not successful and ulceration here remains. Cultures at this time are also positive for Pseudomonas. 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 Cultures from 02/05/2021 were also positive for Pseudomonas. Patient has had multiple rounds of antibiotics and consultation with infectious disease over this infection. Patient is noted to have return of vascular symptom complaints especially to left lower extremity. She has appointment with Dr. Nicholson for reassessment with the understanding she might need possible further intervention. Patient continues care at the wound care center for remaining left foot wounds. Patient is noted to have been approved for [employer] but was not fully covered and would not be able to cover the remaining financial expense. Patient has had other modalities of treatment to include HBO therapy. She did have a revascularization procedure scheduled with Dr. Nicholson on ?18. She is also scheduled to undergo hyperbaric oxygen therapy treatment today. Progress of Wound: Improving Subjective Subjective Today's hyperbaric oxygen therapy session was the third, of a planned 20 such sessions. Hyperbaric oxygen therapy was administered as per the facility's protocol. Hyperbaric oxygen therapy was administered at 2 kaylan for 90 minutes with no air breaks. Patient tolerated hyperbaric oxygen therapy well, without complaints or complications. Upon emergence from the hyperbaric chamber, the patient's vital signs remained stable. She was discharged in good condition. P re and post treatment blood glucose measurements are documented elsewhere. Objective Data Objective Data Vital Signs: Vital Signs Temp Pulse Resp BP 96.9 F L 58 L 16 159/71 H 04/30/21 08:26 04/30/21 08:26 04/30/21 08:26 04/30/21 08:26 Weight: 328 lb 7.82 oz Body Mass Index (BMI) 23.5 Lab / Micro Data Labs: Laboratory Results - last 24 hr 04/30/21 07:52: POC Glucose 163 H 04/30/21 10:07: POC Glucose 94 Exam Physical Exam Const alert, oriented x3, no apparent distress and well nourished General Appearance: cooperative and well developed HEENT normocephalic and EAC's normal Head and Scalp: atraumatic Eyes PERRL and EOMs intact bilaterally Resp normal respiratory effort and no use of accessory muscles Effort and Inspection: able to speak in complete sentences Psych affect normal Appearance: grossly normal and well kempt Assessment/Plan Assessment/Plan (1) Non-pressure chronic ulcer of other part of left foot with fat layer exposed: CODE(S): L97.522 - Non-pressure chronic ulcer of other part of left foot with fat layer exposed (2) Non-pressure chronic ulcer of other part of left foot with necrosis of bone: CODE(S): L97.524 - Non-pressure chronic ulcer of other part of left foot with necrosis of bone (3) Open wound of left foot: CODE(S): S91.302A - Unspecified open wound, left foot, initial encounter QUALIFIERS: Encounter type: subsequent encounter Qualified Code(s): S91.302D - Unspecified open wound, left foot, subsequent encounter (4) Osteomyelitis: CODE(S): M86.9 - Osteomyelitis, unspecified QUALIFIERS: Osteomyelitis type: subacute Osteomyelitis location: foot Laterality: left Qualified Code(s): M86.272 - Subacute osteomyelitis, left ankle and foot (5) Type 2 diabetes mellitus with diabetic polyneuropathy: CODE(S): E11.42 - Type 2 diabetes mellitus with diabetic polyneuropathy (6) Peripheral arterial occlusive disease: CODE(S): I77.9 - Disorder of arteries and arterioles, unspecified (7) PAD (peripheral artery disease): CODE(S): I73.9 - Peripheral vascular disease, unspecified PLAN: The patient appears to be tolerating hyperbaric oxygen therapy well, which will be continued as per the patient's medical plan.
[2021-05-01 08:00] LABS: Bedside Glucose 163 mg/dL (70-110)
[2021-05-01 08:48] VITALS: BP 144/78; BP 155/67; PULSE 60; PULSE 64; RESP 16; TEMP 36.2
[2021-05-01 10:21] LABS: Bedside Glucose 167 mg/dL (70-110)
[2021-05-01 10:29] VITALS: BP 155/67; PULSE 60; RESP 16; TEMP 36.3; BMI 23.5
--- NOTE | 2021-05-01 10:37 | PCM.HBO.PN ---
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 Nicholson on 06/12/2020. Patient saw Dr. Tenorio June 26, 2020 and was started on 100mg gabapentin TID. She has noticed some improvement in her pain. Patient had further intervention with Dr. Nicholson on October 11, 2020. Patient relates having to be transferred to [facility] for this. 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 Amputation of 4th digit with debridement of 1st and 5th digit ulcerations was performed 07/08/20. 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 Patient underwent left fifth digit amputation with attempted delayed closure of fourth digit amputation site ulceration and with application of amnio fix grafting to all sites by Dr. López on 01/03/2021. The attempt for delayed primary closure of the previous fourth digit amputation site ulceration was not successful and ulceration here remains. Cultures at this time are also positive for Pseudomonas. 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 Cultures from 02/05/2021 were also positive for Pseudomonas. Patient has had multiple rounds of antibiotics and consultation with infectious disease over this infection. Patient is noted to have return of vascular symptom complaints especially to left lower extremity. She has appointment with Dr. Nicholson for reassessment with the understanding she might need possible further intervention. Patient continues care at the wound care center for remaining left foot wounds. Patient is noted to have been approved for [employer] but was not fully covered and would not be able to cover the remaining financial expense. Patient has had other modalities of treatment to include HBO therapy. She did have a revascularization procedure scheduled with Dr. Nicholson on ?18. She is also scheduled to undergo hyperbaric oxygen therapy treatment today. Progress of Wound: Patient completed HBO treatment today tolerated well vital signs were stable throughout treatment patient will return tomorrow. Subjective Subjective Patient has no complaints at this time Objective Data Objective Data Vital signs are stable entrance and exit patient will continue with treatments Vital Signs: Vital Signs Temp Pulse Resp BP 97.3 F L 60 16 155/67 H 05/01/21 10:29 05/01/21 10:29 05/01/21 10:29 05/01/21 10:29 Weight: 328 lb 7.82 oz Body Mass Index (BMI) 23.5 Lab / Micro Data Labs: Laboratory Results - last 24 hr 05/01/21 07:59: POC Glucose 163 H 05/01/21 10:16: POC Glucose 167 H Exam Physical Exam Const alert, oriented x3, no apparent distress and well nourished General Appearance: cooperative and well developed HEENT normocephalic and EAC's normal Head and Scalp: atraumatic Eyes PERRL and EOMs intact bilaterally Resp normal respiratory effort and no use of accessory muscles Effort and Inspection: able to speak in complete sentences Psych affect normal Appearance: grossly normal and well kempt Nursing Assessment and Debridement Post-Debridement Measurements and Additional Note: Post-Debridement Measurements/Treatment WC - Nurse 1 - General Ulcer Assessment Start: 04/24/21 08:14 Freq: Status: Active Protocol: ESVIN Activity Type Activity Date Activity User E-Sign Co-Sign Detail Recorded Client Recorded Date Recorded By Document 05/01/21 10:29 DL [id number] 05/01/21 10:36 DL 05/01/21 10:29 - Today's Visit Information Type of service Follow-up Visit (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 Lowe this morning History Since Last Visit- (Skip if this is Patient's initial visit) Have you changed medications since your No last visit? Any new allergies or adverse reactions No Had a fall/change in ADL's that may No increase risk of falls Signs or symptoms of abuse and/or No neglect since last visit Have you been in the hospital since your No last visit? Has dressing in place as prescribed Yes Has compression in place as prescribed Yes Experienced any changes in pain level or No management Pain Scale: 0-10 Numeric Is Patient Pain Free? Yes WC - Nurse 1 - General Ulcer Measurement Start: 04/24/21 08:14 Freq: Status: Active Protocol: Activity Type Activity Date Activity User E-Sign Co-Sign Detail Recorded Client Recorded Date Recorded By Document 05/01/21 10:29 DL [id number] 05/01/21 10:36 DL 05/01/21 10:29 Wound Center Nurse 1 #3 4th lateral toe/amp site -Current Size (cm) - Length 1 -Current Size (cm) - Width 0.4 -Current Size (cm) - Depth 0.5 -Total Square Cm 0.4 -Photo Taken No -Exudate Amt Small -Exudate Type Serosanguineous -Wound Margin Thickened & Rolled Under -Granulation Amt Small (1-33%) -Granulation Quality [place] -Necrosis Amt Large (67-100%) -Necrotic Tissue Type Adherent Slough -Texture (Dot-wound Skin Appearance) Scarring -Moisture (Dot-wound Skin Appearance) Dry/Scaly -Color (Dot-wound Skin Appearance) Assessed -Temperature (Dot-wound Skin No Abnormality Appearance) (Pt Warm) -Tenderness on Palpation (Dot-wound No Skin Appearance) -Ulcer Cleansing Rinsed/ Irrigated with Saline -Foul Odor after Cleansing No -Anesthetic Used 5% Lidocaine Gel #2 L 5th toe AMP site -Current Size (cm) - Length 0.6 -Current Size (cm) - Width 0.5 -Current Size (cm) - Depth 0.4 -Total Square Cm 0.30 -Photo Taken No -Exudate Amt Small -Exudate Type Purulent -Granulation Amt None Present (0 %) -Necrosis Amt Large (67-100%) -Necrotic Tissue Type Adherent Slough -Structure Exposed N/A -Texture (Dot-wound Skin Appearance) Scarring -Moisture (Dot-wound Skin Appearance) No Abnormality -Color (Dot-wound Skin Appearance) Erythema,Rubor -Temperature (Dot-wound Skin No Abnormality Appearance) (Pt Warm) -Tenderness on Palpation (Dot-wound No Skin Appearance) -Ulcer Cleansing Rinsed/ Irrigated with Saline -Foul Odor after Cleansing No -Anesthetic Used 5% Lidocaine Gel Left Calf (cm) 34 Left Ankle (cm) 22 Assessment/Plan Assessment/Plan (1) Non-pressure chronic ulcer of other part of left foot with fat layer exposed: CODE(S): L97.522 - Non-pressure chronic ulcer of other part of left foot with fat layer exposed (2) Non-pressure chronic ulcer of other part of left foot with necrosis of bone: CODE(S): L97.524 - Non-pressure chronic ulcer of other part of left foot with necrosis of bone (3) Open wound of left foot: CODE(S): S91.302A - Unspecified open wound, left foot, initial encounter QUALIFIERS: Encounter type: subsequent encounter Qualified Code(s): S91.302D - Unspecified open wound, left foot, subsequent encounter (4) Osteomyelitis: CODE(S): M86.9 - Osteomyelitis, unspecified QUALIFIERS: Osteomyelitis type: subacute Osteomyelitis location: foot Laterality: left Qualified Code(s): M86.272 - Subacute osteomyelitis, left ankle and foot PLAN: Continue HBO treatments follow-up in 1 day (5) Type 2 diabetes mellitus with diabetic polyneuropathy: CODE(S): E11.42 - Type 2 diabetes mellitus with diabetic polyneuropathy QUALIFIERS: Diabetes mellitus [employer] agent insulin use: without care home use Qualified Code(s): E11.42 - Type 2 diabetes mellitus with diabetic polyneuropathy (6) Peripheral arterial occlusive disease: CODE(S): I77.9 - Disorder of arteries and arterioles, unspecified (7) PAD (peripheral artery disease): CODE(S): I73.9 - Peripheral vascular disease, unspecified
--- NOTE | 2021-05-01 10:55 | PCM.WC.PN ---
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 Nicholson on 06/12/2020. Patient saw Dr. Tenorio June 26, 2020 and was started on 100mg gabapentin TID. She has noticed some improvement in her pain. Patient had further intervention with Dr. Nicholson on October 11, 2020. Patient relates having to be transferred to [facility] for this. 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 Amputation of 4th digit with debridement of 1st and 5th digit ulcerations was performed 07/08/20. 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 Patient underwent left fifth digit amputation with attempted delayed closure of fourth digit amputation site ulceration and with application of amnio fix grafting to all sites by Dr. López on 01/03/2021. The attempt for delayed primary closure of the previous fourth digit amputation site ulceration was not successful and ulceration here remains. Cultures at this time are also positive for Pseudomonas. 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 Cultures from 02/05/2021 were also positive for Pseudomonas. Patient has had multiple rounds of antibiotics and consultation with infectious disease over this infection. Patient is noted to have return of vascular symptom complaints especially to left lower extremity. She has appointment with Dr. Nicholson for reassessment with the understanding she might need possible further intervention. Patient continues care at the wound care center for remaining left foot wounds. Patient is noted to have been approved for [employer] but was not fully covered and would not be able to cover the remaining financial expense. Patient has had other modalities of treatment to include HBO therapy. She did have a revascularization procedure scheduled with Dr. Nicholson on ?18. She is also scheduled to undergo hyperbaric oxygen therapy treatment today. She has some scab buildup and discomfort to the outside of her foot. She like to make sure this is not infected. Progress of Wound: Patient completed HBO treatment today tolerated well vital signs were stable throughout treatment patient will return tomorrow. Objective Data Objective Data Vital Signs: Vital Signs Temp Pulse Resp BP 97.3 F L 60 16 155/67 H 05/01/21 10:29 05/01/21 10:29 05/01/21 10:29 05/01/21 10:29 Weight: 149 kg Body Mass Index (BMI) 23.5 Lab / Micro Data Labs: Laboratory Results - last 24 hr 05/01/21 07:59: POC Glucose 163 H 05/01/21 10:16: POC Glucose 167 H Physical Exam Extremity Extremity Narrative: no cyanosis, no calf tenderness, diminished pulses muscle wasting noted. no tenderness Amputation lateral left forefoot No fluctuance or bogginess on palpation Skin Skin Narrative: no purulence, no erythema, no streaking, no odor, no infection. Adjacent skin is atrophic. hallux is healed with full epithelialization. The distal most lateral foot ulcer has a granular base. The distal most lateral ulcer has a granular base and no longer visualized bone. There is some fibrous tissue buildup underneath the eschar which appears healthy after debridement. There is no periulcer inflammation Neuro Neuro Narrative: lack of normal epicritic sensation via light touch consistent with neuropathy Debridement Note Debridement Note Wound debrided: lateral foot distal , proximal Wound Grade/Stage: 1,3 Type of Debridement: Excisional debridement Anesthesia Used: 4% Lidocaine Solution Depth: in the subcutaneous layer Percentage of wound debrided: 100 Instrument Used: #15 blade Tissue Removed: fibrous, devitalized subcutaneous, biofilm, slough Severity: Fat Layer Exposed Amount of bleeding with debridement: Mild Bleeding Controlled with: Pressure Patient tolerated procedure: Patient tolerated procedure well Post-Debridement Measurements and Additional Note: Post-Debridement Measurements/Treatment - Nurse 1 - General Ulcer Assessment Start: 04/24/21 08:14 Freq: Status: Active Protocol: SOPHIA.NORMA Activity Type Activity Date Activity User E-Sign Co-Sign Detail Recorded Client Recorded Date Recorded By Document 04/24/21 08:14 RB [id number] 04/24/21 08:24 RB Document 05/01/21 10:29 DL [id number] 05/01/21 10:36 DL 04/24/21 05/01/21 08:14 10:29 - Today's Visit Information Type of service Follow-up Visit Follow-up Visit (Physician/WORKERS' COMPENSATION CLAIMS SUPERVISOR (Physician/WORKERS' COMPENSATION CLAIMS SUPERVISOR ) ) Arrival Mode Ambulatory Ambulatory, Other Transfer Assistance None Manual Transfer Assist (Other) x1 Patient Identification Verified (Name & Yes Yes ) Patient Requires Transmission-Based No Precautions Finger Stick Blood Sugar(mg/dl) (if 167 indicated): Blood Sugar Stated by Patient Height and Weight Body Mass Index (BMI) 23.5 23.5 BMI Classification Normal Normal Vital Signs Temperature (97.8 F-99.1 F) 97.3 F L 97.3 F L Temperature Source Temporal Temporal Pulse Rate (60-100) 68 60 Pulse Location Monitor Monitor Respiratory Rate (12-18) 16 Respiratory rate source Observation Observation Blood Pressure (90/60-120/80) 154/62 H 155/67 H Blood Pressure Mean (mm Hg) 92 96 Source Monitor Monitor Position Sitting Blood Pressure Location Left Arm Comment Pt completed HBO tx prior to Dr. Lowe this morning History Since Last Visit- (Skip if this is Patient's initial visit) Have you changed medications since your No No last visit? Any new allergies or adverse reactions No No Had a fall/change in ADL's that may No No increase risk of falls Signs or symptoms of abuse and/or No No neglect since last visit Have you been in the hospital since your No No last visit? Has dressing in place as prescribed Yes Yes Has compression in place as prescribed Yes Yes Has offloadiing in place as prescribed No Experienced any changes in pain level or No No management Pain Scale: 0-10 Numeric Is Patient Pain Free? Yes Yes WC - Nurse 1 - General Ulcer Measurement Start: 04/24/21 08:14 Freq: Status: Active Protocol: Activity Type Activity Date Activity User E-Sign Co-Sign Detail Recorded Client Recorded Date Recorded By Document 04/24/21 08:14 RB [id number] 04/24/21 08:24 RB Document 05/01/21 10:29 DL [id number] 05/01/21 10:36 DL 04/24/21 05/01/21 08:14 10:29 Wound Center Nurse 1 #3 4th lateral toe/amp site -Combined with other wound No -Current Size (cm) - Length 1.1 1 -Current Size (cm) - Width 0.4 0.4 -Current Size (cm) - Depth 0.4 0.5 -Total Square Cm 0.44 0.4 -Photo Taken No No -Tunneling No -Undermining/Tunneling No -Exudate Amt Large Small -Exudate Type Serosanguineous Serosanguineous -Wound Margin Thickened & Thickened & Rolled Under Rolled Under -Granulation Amt Medium (34-66%) Small (1-33%) -Granulation Quality [place] -Slough/Fibrin Yes -Necrosis Amt None Present (0 Large (67-100%) %) -Necrotic Tissue Type Adherent Slough Adherent Slough -Structure Exposed N/A -Texture (Dot-wound Skin Appearance) Assessed, Scarring Scarring -Moisture (Dot-wound Skin Appearance) Assessed Dry/Scaly -Color (Dot-wound Skin Appearance) Assessed Assessed -Temperature (Dot-wound Skin No Abnormality No Abnormality Appearance) (Pt Warm) (Pt Warm) -Tenderness on Palpation (Dot-wound No No Skin Appearance) -Ulcer Cleansing Wound Cleanser Rinsed/ Irrigated with Saline -Foul Odor after Cleansing No No -Anesthetic Used 5% Lidocaine 5% Lidocaine Gel Gel #2 L 5th toe AMP site -Combined with other wound No -Current Size (cm) - Length 0.4 0.6 -Current Size (cm) - Width 0.4 0.5 -Current Size (cm) - Depth 0.3 0.4 -Total Square Cm 0.16 0.30 -Photo Taken No -Tunneling No -Undermining/Tunneling No -Circular Undermining No -Exudate Amt Medium Small -Exudate Type Serosanguineous Purulent -Wound Margin Thickened & Rolled Under -Granulation Amt Medium (34-66%) None Present (0 %) -Granulation Quality [place] -Slough/Fibrin Yes -Necrosis Amt Small (1-33%) Large (67-100%) -Necrotic Tissue Type Adherent Slough Adherent Slough -Structure Exposed N/A N/A -Texture (Dot-wound Skin Appearance) Assessed, Scarring Scarring -Moisture (Dot-wound Skin Appearance) Assessed No Abnormality -Color (Dot-wound Skin Appearance) Assessed Erythema,Rubor -Temperature (Dot-wound Skin No Abnormality No Abnormality Appearance) (Pt Warm) (Pt Warm) -Tenderness on Palpation (Dot-wound No No Skin Appearance) -Ulcer Cleansing Wound Cleanser Rinsed/ Irrigated with Saline -Foul Odor after Cleansing No No -Anesthetic Used 5% Lidocaine 5% Lidocaine Gel Gel Left Calf (cm) 34 Left Ankle (cm) 22 WC - Nurse 2 - General Ulcer CM Notes Start: 04/24/21 08:14 Freq: Status: Active Protocol: Activity Type Activity Date Activity User E-Sign Co-Sign Detail Recorded Client Recorded Date Recorded By Document 04/24/21 08:35 [id number] 04/24/21 08:40 Document 05/01/21 10:46 [id number] 05/01/21 10:53 04/24/21 05/01/21 08:35 10:46 Wound Center Nurse 2 #3 4th lateral toe/amp site -Time 08:36 10:46 -Correct Patient Yes Yes -Correct Side, Site, Position Yes Yes -Correct Procedure Yes Yes -Procedure Performed Yes Yes -Type of Procedure Debridement Debridement -Clinical Debridement Subcutaneous Subcutaneous -Tissue Removed Subcutaneous Subcutaneous -Post Debridement (cm) - Length 1.5 1.1 -Post Debridement (cm) - Width 0.5 0.3 -Post Debridement (cm) - Depth 0.3 0.2 -Total Square (Post) (cm) 0 0.33 -Area of Debridement (cm) - Length 1.5 1.1 -Area of Debridement (cm) - Width 0.5 0.3 -Total Square (Area) (cm) 0.75 0.33 -Tunneling No No -Undermining/Tunneling No No -Circular Undermining No No -Wound/Ulcer Outcome Not Healed Not Healed -Ulcer Cleansing Rinsed/ Rinsed/ Irrigated with Irrigated with Saline Saline -Foul Odor after Cleansing No No -Bioengineered Tissue No No -Bleeding Controlled with Pressure Pressure -Offloading Yes Yes -Type of Offloading Surgical Shoe Surgical Shoe -Treatment Response Procedure Procedure Tolerated Well Tolerated Well -Debridement - Subq, 1st 20sq cm No No #2 L 5th toe AMP site -Time 08:36 10:47 -Correct Patient Yes Yes -Correct Side, Site, Position Yes Yes -Correct Procedure Yes Yes -Procedure Performed Yes Yes -Type of Procedure Debridement Debridement -Clinical Debridement Subcutaneous Subcutaneous -Tissue Removed Subcutaneous Subcutaneous -Post Debridement (cm) - Length 0.8 0.9 -Post Debridement (cm) - Width 0.6 0.7 -Post Debridement (cm) - Depth 0.2 0.4 -Total Square (Post) (cm) 0.48 0.63 -Area of Debridement (cm) - Length 0.8 0.9 -Area of Debridement (cm) - Width 0.6 0.7 -Total Square (Area) (cm) 0.48 0.63 -Tunneling No No -Undermining/Tunneling No No -Circular Undermining No No -Wound/Ulcer Outcome Not Healed Not Healed -Ulcer Cleansing Rinsed/ Rinsed/ Irrigated with Irrigated with Saline Saline -Foul Odor after Cleansing No No -Bioengineered Tissue No No -Bleeding Controlled with Pressure Pressure -Offloading Yes Yes -Type of Offloading Surgical Shoe Surgical Shoe -Treatment Response Procedure Procedure Tolerated Well Tolerated Well -Debridement - Subq, 1st 20sq cm Yes Yes Pain Scale: 0-10 Numeric Is Patient Pain Free? Yes Yes - Nurse 3 - General Ulcer D/C NN Start: 04/24/21 08:14 Freq: Status: Active Protocol: Activity Type Activity Date Activity User E-Sign Co-Sign Detail Recorded Client Recorded Date Recorded By Document 04/24/21 08:50 DL [id number] 04/24/21 08:51 DL 04/24/21 08:50 Wound Care Nurse 3 #3 4th lateral toe/amp site -Ulcer Cleansing Soap and Water -Foul Odor after Cleansing No -Primary Dressing Applied Fibracol Plus 4x4 -Primary Dressing Covered/Secured with Dry Gauze & Roll Gauze, Secured with Tape -Fibracol Plus 4x4 1 #2 L 5th toe AMP site -Ulcer Cleansing Soap and Water -Foul Odor after Cleansing No -Other Dressing fibracol -Primary Dressing Covered/Secured with Dry Gauze & Roll Gauze, Secured with Tape Treatment Response Procedure Tolerated Well Pain Scale: 0-10 Numeric Is Patient Pain Free? Yes - Visit Discharge Discharge Condition Stable Ambulatory Status Ambulatory Transportation Private [facility] Facility Type Home Health Orders Sent Yes Assessment/Plan Assessment/Plan (1) Non-pressure chronic ulcer of other part of left foot with necrosis of bone: CODE(S): L97.524 - Non-pressure chronic ulcer of other part of left foot with necrosis of bone (2) Non-pressure chronic ulcer of other part of left foot with fat layer exposed: CODE(S): L97.522 - Non-pressure chronic ulcer of other part of left foot with fat layer exposed (3) Osteomyelitis: CODE(S): M86.9 - Osteomyelitis, unspecified QUALIFIERS: Osteomyelitis type: subacute Osteomyelitis location: foot Laterality: left Qualified Code(s): M86.272 - Subacute osteomyelitis, left ankle and foot (4) PAD (peripheral artery disease): CODE(S): I73.9 - Peripheral vascular disease, unspecified (5) History of tobacco abuse: CODE(S): Z87.891 - Personal history of nicotine dependence (6) Ischaemic rest pain of lower extremity: CODE(S): M79.606 - Pain in leg, unspecified; I99.8 - Other disorder of circulatory system (7) Delayed wound healing: CODE(S): T14.8XXD - Other injury of unspecified body region, subsequent encounter (8) Amputated toe: CODE(S): S98.139A - Complete traumatic amputation of one unspecified lesser toe, initial encounter QUALIFIERS: Laterality: left Qualified Code(s): S98.132A - Complete traumatic amputation of one left lesser toe, initial encounter (9) Type 2 diabetes mellitus with diabetic polyneuropathy: CODE(S): E11.42 - Type 2 diabetes mellitus with diabetic polyneuropathy QUALIFIERS: Diabetes mellitus termination clerk insulin use: without termination clerk use Qualified Code(s): E11.42 - Type 2 diabetes mellitus with diabetic polyneuropathy (10) Eschar of foot: CODE(S): R23.4 - Changes in skin texture PLAN: Patient seen and examined with family member present. She had recent vascular surgery intervention on with Dr. Nicholson again. Her prior vascular studies 03/11/21 show bilateral DP and PT monphasic pulses. JENY left 0.4 at PT and 1.35 at DP and on right 0.66 at PT and 0.9 at DP with TBI of 0.19. No TBI obtained on left. She was previously treated with Levaquin per Dr. Skaggs, infectious disease specialist. Patient had cultures obtained 02/05/2021 demonstrating Pseudomonas. Discussed possibility of colonization with Pseudomonas with patient and family members. Patient has had Pseudomonas consistently on her wound cultures for the last several months with multiple rounds of treatment. Culture of 5th metatarsal bone 03/05/21 was positive for PsAg. She was reassured no local signs infection noted today. To continue with diligent antibacterial soap and water wash with wound dressing changes. She was concerned about purulence and infection however after debridement under the eschar it appears there is collection of fibrous tissue. She was advised to monitor for redness streaking odor or deterioration in the next week. Every other day Aquacel silver dressing changes to ulceration sites covered with dry sterile dressing. To wash with soap and water prior. She has done well with this so far. Reviewed proper wound care with patient. Discussed with the patient the importance of offloading the sites with wide enough shoe gear if she is to be wearing shoes, proper diet, good blood sugar control. Patient has used Darci in the past nutritional supplementation. She continues to use this twice a day. Patient was offered nutritional counseling with a wink cutter operator. She is noted to have had counseling while in the hospital. Patient has offloaded surgical shoe. Discussed with the patient all concerning signs and symptoms to watch out for and to contact office if he either presents. Application for TheraSkin skin graft is approved but there is a portion that patient has cover [id number]. Patient will discuss with family if this is doable if she wants to proceed with this she will let us know. Resubmitted to see if her [id number] cost is changed since previous submission. Patient is noted to still be responsible for $325 per application. This is not doable per patient. Patient and family may reconsider pending vascular results with Dr. Nicholson. Patient has a diabetic foot ulceration that has failed to show measurable signs of healing after completing 30 consecutive days of standard wound care. There is confirmed osteomyelitis to left 5th metatarsal even though patient has had multiple rounds of antibiotics and consultations with infectious disease. Patient would likely be a good candidate for hyperbaric oxygen therapy. This would include further work up with labs, imaging, and clearance consultation. If patient is approved for hyperbaric oxygen therapy our goals would be to get progression and healing of patient's wounds while continuing regular debridements, monitoring, offloading, medical optimizing and monitoring. Patient is noted to have been denied hyperbarics in the past but with new osteomyelitis we are hopeful that she will be approved for therapy in order to obtain wound healing. She will proceed with hyperbaric oxygen therapy this morning. She is doing well so far. Patient is to follow-up in 1 week. This note was generated with [employer] dictation software. It may contain incorrect words, spelling, and punctuation that were not noted in checking the note before signing. The medical decision making level is low. There is noted low risk of morbidity after considering this treatment plan and diagnostic data. The problems addressed require a low medical decision making level which includes two or more minor problems, a stable chronic illness, or an acute uncomplicated illness or injury.
[2021-05-02 13:05] LABS: Bedside Glucose 137 mg/dL (70-110)
[2021-05-02 13:34] VITALS: BP 140/72; BP 151/56; PULSE 63; PULSE 66; RESP 16; RESP 17; TEMP 36.4
[2021-05-02 15:20] LABS: Bedside Glucose 93 mg/dL (70-110)
--- NOTE | 2021-05-02 16:16 | HBO.PN.PCM_ITS ---
History of Present Illness Date of Service: 05/02/21 Chief Complaint: Diabetic foot ulceration?left foot Left fourth and fifth digit amputation site ulceration Peripheral arterial occlusive disease History of Wound: Patient had intervention done by Dr. Nicholson on 06/12/2020. Patient saw Dr. Tenorio June 26, 2020 and was started on 100mg gabapentin TID. She has noticed some improvement in her pain. Patient had further intervention with Dr. Nicholson on October 11, 2020. Patient relates having to be transferred to [facility] for this. 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 Amputation of 4th digit with debridement of 1st and 5th digit ulcerations was performed 07/08/20. 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 Patient underwent left fifth digit amputation with attempted delayed closure of fourth digit amputation site ulceration and with application of amnio fix grafting to all sites by Dr. López on 01/03/2021. The attempt for delayed primary closure of the previous fourth digit amputation site ulceration was not successful and ulceration here remains. Cultures at this time are also positive for Pseudomonas. 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 Cultures from 02/05/2021 were also positive for Pseudomonas. Patient has had multiple rounds of antibiotics and consultation with infectious disease over this infection. Patient is noted to have return of vascular symptom complaints especially to left lower extremity. She has appointment with Dr. Nicholson for reassessment with the understanding she might need possible further intervention. Patient continues care at the wound care center for remaining left foot wounds. Patient is noted to have been approved for [employer] but was not fully covered and would not be able to cover the remaining financial expense. Patient has had other modalities of treatment to include HBO therapy. She did have a revascularization procedure scheduled with Dr. Nicholson on ?18. She is also scheduled to undergo hyperbaric oxygen therapy treatment today. She has some scab buildup and discomfort to the outside of her foot. She like to make sure this is not infected. Progress of Wound: Patient completed 5th HBO treatment today tolerated well v ital signs were stable throughout treatment. Objective Data Objective Data Vital Signs: Vital Signs Temp Pulse Resp BP 97.5 F L 63 16 140/72 H 05/02/21 13:34 05/02/21 13:34 05/02/21 13:34 05/02/21 13:34 Weight: 328 lb 7.82 oz Body Mass Index (BMI) 23.5 Lab / Micro Data Labs: Laboratory Results - last 24 hr 05/02/21 13:01: POC Glucose 137 H 05/02/21 15:14: POC Glucose 93 Exam Physical Exam Const alert and oriented x3 General Appearance: cooperative HEENT normocephalic HEENT Narrative: Bilateral tympanostomy tubes Head and Scalp: atraumatic Resp clear to auscultation bilaterally Cardio regular rate and regular rhythm Psych Appearance: grossly normal Nursing Assessment and Debridement Post-Debridement Measurements and Additional Note: Post-Debridement Measurements/Treatment WC - Nurse 1 - General Ulcer Assessment Start: 04/24/21 08:14 Freq: Status: Active Protocol: ESVIN Activity Type Activity Date Activity User E-Sign Co-Sign Detail Recorded Client Recorded Date Recorded By Document 05/01/21 10:29 DL [id number] 05/01/21 10:36 DL 05/01/21 10:29 WC - Today's Visit Information Type of service Follow-up Visit (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 Lowe this morning History Since Last Visit- (Skip if this is Patient's initial visit) Have you changed medications since your No last visit? Any new allergies or adverse reactions No Had a fall/change in ADL's that may No increase risk of falls Signs or symptoms of abuse and/or No neglect since last visit Have you been in the hospital since your No last visit? Has dressing in place as prescribed Yes Has compression in place as prescribed Yes Experienced any changes in pain level or No management Pain Scale: 0-10 Numeric Is Patient Pain Free? Yes - Nurse 1 - General Ulcer Measurement Start: 04/24/21 08:14 Freq: Status: Active Protocol: Activity Type Activity Date Activity User E-Sign Co-Sign Detail Recorded Client Recorded Date Recorded By Document 05/01/21 10:29 DL [id number] 05/01/21 10:36 DL 05/01/21 10:29 Wound Center Nurse 1 #3 4th lateral toe/amp site -Current Size (cm) - Length 1 -Current Size (cm) - Width 0.4 -Current Size (cm) - Depth 0.5 -Total Square Cm 0.4 -Photo Taken No -Exudate Amt Small -Exudate Type Serosanguineous -Wound Margin Thickened & Rolled Under -Granulation Amt Small (1-33%) -Granulation Quality [place] -Necrosis Amt Large (67-100%) -Necrotic Tissue Type Adherent Slough -Texture (Dot-wound Skin Appearance) Scarring -Moisture (Dot-wound Skin Appearance) Dry/Scaly -Color (Dot-wound Skin Appearance) Assessed -Temperature (Dot-wound Skin No Abnormality Appearance) (Pt Warm) -Tenderness on Palpation (Dot-wound No Skin Appearance) -Ulcer Cleansing Rinsed/ Irrigated with Saline -Foul Odor after Cleansing No -Anesthetic Used 5% Lidocaine Gel #2 L 5th toe AMP site -Current Size (cm) - Length 0.6 -Current Size (cm) - Width 0.5 -Current Size (cm) - Depth 0.4 -Total Square Cm 0.30 -Photo Taken No -Exudate Amt Small -Exudate Type Purulent -Granulation Amt None Present (0 %) -Necrosis Amt Large (67-100%) -Necrotic Tissue Type Adherent Slough -Structure Exposed N/A -Texture (Dot-wound Skin Appearance) Scarring -Moisture (Dot-wound Skin Appearance) No Abnormality -Color (Dot-wound Skin Appearance) Erythema,Rubor -Temperature (Dot-wound Skin No Abnormality Appearance) (Pt Warm) -Tenderness on Palpation (Dot-wound No Skin Appearance) -Ulcer Cleansing Rinsed/ Irrigated with Saline -Foul Odor after Cleansing No -Anesthetic Used 5% Lidocaine Gel Left Calf (cm) 34 Left Ankle (cm) 22 WC - Nurse 2 - General Ulcer CM Notes Start: 04/24/21 08:14 Freq: Status: Active Protocol: Activity Type Activity Date Activity User E-Sign Co-Sign Detail Recorded Client Recorded Date Recorded By Document 05/01/21 10:46 JF [id number] 05/01/21 10:53 JF 05/01/21 10:46 Wound Center Nurse 2 #3 4th lateral toe/amp site -Time 10:46 -Correct Patient Yes -Correct Side, Site, Position Yes -Correct Procedure Yes -Procedure Performed Yes -Type of Procedure Debridement -Clinical Debridement Subcutaneous -Tissue Removed Subcutaneous -Post Debridement (cm) - Length 1.1 -Post Debridement (cm) - Width 0.3 -Post Debridement (cm) - Depth 0.2 -Total Square (Post) (cm) 0.33 -Area of Debridement (cm) - Length 1.1 -Area of Debridement (cm) - Width 0.3 -Total Square (Area) (cm) 0.33 -Tunneling No -Undermining/Tunneling No -Circular Undermining No -Wound/Ulcer Outcome Not Healed -Ulcer Cleansing Rinsed/ Irrigated with Saline -Foul Odor after Cleansing No -Bioengineered Tissue No -Bleeding Controlled with Pressure -Offloading Yes -Type of Offloading Surgical Shoe -Treatment Response Procedure Tolerated Well -Debridement - Subq, 1st 20sq cm No #2 L 5th toe AMP site -Time 10:47 -Correct Patient Yes -Correct Side, Site, Position Yes -Correct Procedure Yes -Procedure Performed Yes -Type of Procedure Debridement -Clinical Debridement Subcutaneous -Tissue Removed Subcutaneous -Post Debridement (cm) - Length 0.9 -Post Debridement (cm) - Width 0.7 -Post Debridement (cm) - Depth 0.4 -Total Square (Post) (cm) 0.63 -Area of Debridement (cm) - Length 0.9 -Area of Debridement (cm) - Width 0.7 -Total Square (Area) (cm) 0.63 -Tunneling No -Undermining/Tunneling No -Circular Undermining No -Wound/Ulcer Outcome Not Healed -Ulcer Cleansing Rinsed/ Irrigated with Saline -Foul Odor after Cleansing No -Bioengineered Tissue No -Bleeding Controlled with Pressure -Offloading Yes -Type of Offloading Surgical Shoe -Treatment Response Procedure Tolerated Well -Debridement - Subq, 1st 20sq cm Yes Pain Scale: 0-10 Numeric Is Patient Pain Free? Yes WC - Nurse 3 - General Ulcer D/C NN Start: 04/24/21 08:14 Freq: Status: Active Protocol: Activity Type Activity Date Activity User E-Sign Co-Sign Detail Recorded Client Recorded Date Recorded By Document 05/01/21 10:59 [id number] 05/01/21 11:01 RB 05/01/21 10:59 Wound Care Nurse 3 #3 4th lateral toe/amp site -Other Dressing fibracol + -Primary Dressing Covered/Secured with Dry Gauze,Dry Gauze & Roll Gauze,Secured with Tape #2 L 5th toe AMP site -Other Dressing fibracol+ -Primary Dressing Covered/Secured with Dry Gauze,Dry Gauze & Roll Gauze,Secured with Tape Left -Other jose Treatment Response Procedure Tolerated Well Pain Scale: 0-10 Numeric Is Patient Pain Free? Yes WC - Visit Discharge Discharge Condition Stable Ambulatory Status Ambulatory Transportation Private Auto Medication Reconcilliation completed & No provided to patient/care provider Clinical Summary of Care Provided Yes Charges/Coding Wound Center CF Procedures HBO Supervision: [id number] Hyperbaric Oxygen; supervision Assessment/Plan Assessment/Plan (1) Non-pressure chronic ulcer of other part of left foot with necrosis of bone: CODE(S): L97.524 - Non-pressure chronic ulcer of other part of left foot with necrosis of bone (2) Non-pressure chronic ulcer of other part of left foot with fat layer exposed: CODE(S): L97.522 - Non-pressure chronic ulcer of other part of left foot with fat layer exposed (3) Osteomyelitis: CODE(S): M86.9 - Osteomyelitis, unspecified QUALIFIERS: Osteomyelitis type: subacute Osteomyelitis location: foot Laterality: left Qualified Code(s): M86.272 - Subacute osteomyelitis, left ankle and foot (4) PAD (peripheral artery disease): CODE(S): I73.9 - Peripheral vascular disease, unspecified (5) History of tobacco abuse: CODE(S): Z87.891 - Personal history of nicotine dependence (6) Ischaemic rest pain of lower extremity: CODE(S): M79.606 - Pain in leg, unspecified; I99.8 - Other disorder of circulatory system (7) Delayed wound healing: CODE(S): T14.8XXD - Other injury of unspecified body region, subsequent encounter (8) Amputated toe: CODE(S): S98.139A - Complete traumatic amputation of one unspecified lesser toe, initial encounter QUALIFIERS: Laterality: left Qualified Code(s): S98.132A - Complete traumatic amputation of one left lesser toe, initial encounter (9) Type 2 diabetes mellitus with diabetic polyneuropathy: CODE(S): E11.42 - Type 2 diabetes mellitus with diabetic polyneuropathy QUALIFIERS: Diabetes mellitus superintendent terminal insulin use: without superintendent terminal use Qualified Code(s): E11.42 - Type 2 diabetes mellitus with diabetic polyneuropathy (10) Eschar of foot: CODE(S): R23.4 - Changes in skin texture PLAN: The patient appears to be tolerating hyperbaric oxygen therapy well, which will be continued as per the patient's medical plan. Billing code [id number]
[2021-05-03 08:00] LABS: Bedside Glucose 166 mg/dL (70-110)
[2021-05-03 08:30] VITALS: BP 157/68; BP 163/69; PULSE 62; PULSE 64; RESP 16; RESP 17; TEMP 36.8
[2021-05-03 10:16] LABS: Bedside Glucose 114 mg/dL (70-110)
--- NOTE | 2021-05-03 14:31 | HBO.PN.PCM_ITS ---
History of Present Illness Date of Service: 05/03/21 Chief Complaint: Diabetic foot ulceration?left foot Left fourth and fifth digit amputation site ulceration Peripheral arterial occlusive disease History of Wound: Patient had intervention done by Dr. Nicholson on 06/12/2020. Patient saw Dr. Tenorio June 26, 2020 and was started on 100mg gabapentin TID. She has noticed some improvement in her pain. Patient had further intervention with Dr. Nicholson on October 11, 2020. Patient relates having to be transferred to [facility] for this. 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 Amputation of 4th digit with debridement of 1st and 5th digit ulcerations was performed 07/08/20. 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 Patient underwent left fifth digit amputation with attempted delayed closure of fourth digit amputation site ulceration and with application of amnio fix grafting to all sites by Dr. López on 01/03/2021. The attempt for delayed primary closure of the previous fourth digit amputation site ulceration was not successful and ulceration here remains. Cultures at this time are also positive for Pseudomonas. 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 Cultures from 02/05/2021 were also positive for Pseudomonas. Patient has had multiple rounds of antibiotics and consultation with infectious disease over this infection. Patient is noted to have return of vascular symptom complaints especially to left lower extremity. She has appointment with Dr. Nicholson for reassessment with the understanding she might need possible further intervention. Patient continues care at the wound care center for remaining left foot wounds. Patient is noted to have been approved for [employer] but was not fully covered and would not be able to cover the remaining financial expense. Patient has had other modalities of treatment to include HBO therapy. She did have a revascularization procedure scheduled with Dr. Nicholson on ?18. She is also scheduled to undergo hyperbaric oxygen therapy treatment today. She has some scab buildup and discomfort to the outside of her foot. She like to make sure this is not infected. Progress of Wound: Patient completed 6th HBO treatment today tolerated well v ital signs were stable throughout treatment. Progress: Today is the 6th treatment of hyperbaric oxygen therapy. The patient is scheduled for 20 treatments total. Tolerance of hyperbaric oxygen therapy: Hyperbaric oxygen treatment was provided as per the facility's protocol at 2.0 [place] in 100% oxygen for 90 minutes without air breaks. The patient tolerated hyperbaric oxygen well, without complications or complaints. Upon emergence of the hyperbaric chamber, the patient's vital signs remained stable. Objective Data Objective Data Vital Signs: Vital Signs Temp Pulse Resp BP 98.2 F 64 16 157/68 H 05/03/21 08:30 05/03/21 08:30 05/03/21 08:30 05/03/21 08:30 Weight: 149 kg Body Mass Index (BMI) 23.5 Lab / Micro Data Labs: Laboratory Results - last 24 hr 05/02/21 15:14: POC Glucose 93 05/03/21 07:54: POC Glucose 166 H 05/03/21 10:11: POC Glucose 114 H Exam Physical Exam Const alert, oriented x3 and no apparent distress Psych thought process normal, cooperative and affect normal Nursing Assessment and Debridement Post-Debridement Measurements and Additional Note: Post-Debridement Measurements/Treatment WC - Nurse 1 - General Ulcer Assessment Start: 04/24/21 08:14 Freq: Status: Active Protocol: ESVIN Activity Type Activity Date Activity User E-Sign Co-Sign Detail Recorded Client Recorded Date Recorded By Document 05/01/21 10:29 DL [id number] 05/01/21 10:36 DL 05/01/21 10:29 WC - Today's Visit Information Type of service Follow-up Visit (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 Lowe this morning History Since Last Visit- (Skip if this is Patient's initial visit) Have you changed medications since your No last visit? Any new allergies or adverse reactions No Had a fall/change in ADL's that may No increase risk of falls Signs or symptoms of abuse and/or No neglect since last visit Have you been in the hospital since your No last visit? Has dressing in place as prescribed Yes Has compression in place as prescribed Yes Experienced any changes in pain level or No management Pain Scale: 0-10 Numeric Is Patient Pain Free? Yes WC - Nurse 1 - General Ulcer Measurement Start: 04/24/21 08:14 Freq: Status: Active Protocol: Activity Type Activity Date Activity User E-Sign Co-Sign Detail Recorded Client Recorded Date Recorded By Document 05/01/21 10:29 DL [id number] 05/01/21 10:36 DL 05/01/21 10:29 Wound Center Nurse 1 #3 4th lateral toe/amp site -Current Size (cm) - Length 1 -Current Size (cm) - Width 0.4 -Current Size (cm) - Depth 0.5 -Total Square Cm 0.4 -Photo Taken No -Exudate Amt Small -Exudate Type Serosanguineous -Wound Margin Thickened & Rolled Under -Granulation Amt Small (1-33%) -Granulation Quality [place] -Necrosis Amt Large (67-100%) -Necrotic Tissue Type Adherent Slough -Texture (Dot-wound Skin Appearance) Scarring -Moisture (Dot-wound Skin Appearance) Dry/Scaly -Color (Dot-wound Skin Appearance) Assessed -Temperature (Dot-wound Skin No Abnormality Appearance) (Pt Warm) -Tenderness on Palpation (Dot-wound No Skin Appearance) -Ulcer Cleansing Rinsed/ Irrigated with Saline -Foul Odor after Cleansing No -Anesthetic Used 5% Lidocaine Gel #2 L 5th toe AMP site -Current Size (cm) - Length 0.6 -Current Size (cm) - Width 0.5 -Current Size (cm) - Depth 0.4 -Total Square Cm 0.30 -Photo Taken No -Exudate Amt Small -Exudate Type Purulent -Granulation Amt None Present (0 %) -Necrosis Amt Large (67-100%) -Necrotic Tissue Type Adherent Slough -Structure Exposed N/A -Texture (Dot-wound Skin Appearance) Scarring -Moisture (Dot-wound Skin Appearance) No Abnormality -Color (Dot-wound Skin Appearance) Erythema,Rubor -Temperature (Dot-wound Skin No Abnormality Appearance) (Pt Warm) -Tenderness on Palpation (Dot-wound No Skin Appearance) -Ulcer Cleansing Rinsed/ Irrigated with Saline -Foul Odor after Cleansing No -Anesthetic Used 5% Lidocaine Gel Left Calf (cm) 34 Left Ankle (cm) 22 WC - Nurse 2 - General Ulcer CM Notes Start: 04/24/21 08:14 Freq: Status: Active Protocol: Activity Type Activity Date Activity User E-Sign Co-Sign Detail Recorded Client Recorded Date Recorded By Document 05/01/21 10:46 [id number] 05/01/21 10:53 RICHI 05/01/21 10:46 Wound Center Nurse 2 #3 4th lateral toe/amp site -Time 10:46 -Correct Patient Yes -Correct Side, Site, Position Yes -Correct Procedure Yes -Procedure Performed Yes -Type of Procedure Debridement -Clinical Debridement Subcutaneous -Tissue Removed Subcutaneous -Post Debridement (cm) - Length 1.1 -Post Debridement (cm) - Width 0.3 -Post Debridement (cm) - Depth 0.2 -Total Square (Post) (cm) 0.33 -Area of Debridement (cm) - Length 1.1 -Area of Debridement (cm) - Width 0.3 -Total Square (Area) (cm) 0.33 -Tunneling No -Undermining/Tunneling No -Circular Undermining No -Wound/Ulcer Outcome Not Healed -Ulcer Cleansing Rinsed/ Irrigated with Saline -Foul Odor after Cleansing No -Bioengineered Tissue No -Bleeding Controlled with Pressure -Offloading Yes -Type of Offloading Surgical Shoe -Treatment Response Procedure Tolerated Well -Debridement - Subq, 1st 20sq cm No #2 L 5th toe AMP site -Time 10:47 -Correct Patient Yes -Correct Side, Site, Position Yes -Correct Procedure Yes -Procedure Performed Yes -Type of Procedure Debridement -Clinical Debridement Subcutaneous -Tissue Removed Subcutaneous -Post Debridement (cm) - Length 0.9 -Post Debridement (cm) - Width 0.7 -Post Debridement (cm) - Depth 0.4 -Total Square (Post) (cm) 0.63 -Area of Debridement (cm) - Length 0.9 -Area of Debridement (cm) - Width 0.7 -Total Square (Area) (cm) 0.63 -Tunneling No -Undermining/Tunneling No -Circular Undermining No -Wound/Ulcer Outcome Not Healed -Ulcer Cleansing Rinsed/ Irrigated with Saline -Foul Odor after Cleansing No -Bioengineered Tissue No -Bleeding Controlled with Pressure -Offloading Yes -Type of Offloading Surgical Shoe -Treatment Response Procedure Tolerated Well -Debridement - Subq, 1st 20sq cm Yes Pain Scale: 0-10 Numeric Is Patient Pain Free? Yes - Nurse 3 - General Ulcer D/C NN Start: 04/24/21 08:14 Freq: Status: Active Protocol: Activity Type Activity Date Activity User E-Sign Co-Sign Detail Recorded Client Recorded Date Recorded By Document 05/01/21 10:59 [id number] 05/01/21 11:01 05/01/21 10:59 Wound Care Nurse 3 #3 4th lateral toe/amp site -Other Dressing fibracol + -Primary Dressing Covered/Secured with Dry Gauze,Dry Gauze & Roll Gauze,Secured with Tape #2 L 5th toe AMP site -Other Dressing fibracol+ -Primary Dressing Covered/Secured with Dry Gauze,Dry Gauze & Roll Gauze,Secured with Tape Left -Other jose Treatment Response Procedure Tolerated Well Pain Scale: 0-10 Numeric Is Patient Pain Free? Yes - Visit Discharge Discharge Condition Stable Ambulatory Status Ambulatory Transportation Private Auto Medication Reconcilliation completed & No provided to patient/care provider Clinical Summary of Care Provided Yes Assessment/Plan Assessment/Plan (1) Type 2 diabetes mellitus with diabetic polyneuropathy: CODE(S): E11.42 - Type 2 diabetes mellitus with diabetic polyneuropathy QUALIFIERS: Diabetes mellitus usp insulin use: without termite control servicer use Qualified Code(s): E11.42 - Type 2 diabetes mellitus with diabetic polyneuropathy (2) Ulcer of left foot with bone involvement without evidence of necrosis: CODE(S): L97.526 - 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 without evidence of necrosis (3) Osteomyelitis: CODE(S): M86.9 - Osteomyelitis, unspecified QUALIFIERS: Osteomyelitis type: subacute Osteomyelitis location: foot Laterality: left Qualified Code(s): M86.272 - Subacute osteomyelitis, left ankle and foot (4) Non-pressure chronic ulcer of other part of left foot with necrosis of bone: CODE(S): L97.524 - Non-pressure chronic ulcer of other part of left foot with necrosis of bone (5) Type 2 diabetes mellitus: CODE(S): E11.9 - Type 2 diabetes mellitus without complications QUALIFIERS: Diabetes mellitus termite control servicer insulin use: unspecified usp insulin use status Diabetes mellitus complication status: with circulatory complication Diabetes mellitus complication detail: with peripheral angiopathy with gangrene Qualified Code(s): E11.52 - Type 2 diabetes mellitus with diabetic peripheral angiopathy with gangrene (6) PAD (peripheral artery disease): CODE(S): I73.9 - Peripheral vascular disease, unspecified (7) Non-pressure chronic ulcer of other part of left foot with fat layer exposed: CODE(S): L97.522 - Non-pressure chronic ulcer of other part of left foot with fat layer exposed (8) 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 PLAN: The patient appears to be tolerating hyperbaric oxygen therapy well, which will be continued as per his medical treatment plan.
[2021-05-06 08:05] LABS: Bedside Glucose 172 mg/dL (70-110)
[2021-05-06 08:53] VITALS: BP 152/67; BP 191/67; PULSE 61; RESP 16; TEMP 36.6
[2021-05-06 10:31] LABS: Bedside Glucose 91 mg/dL (70-110)
--- NOTE | 2021-05-06 14:37 | HBO.PN.PCM_ITS ---
History of Present Illness Date of Service: 05/06/21 Chief Complaint: Diabetic foot ulceration?left foot Left fourth and fifth digit amputation site ulceration Peripheral arterial occlusive disease Progress of Wound: Patient completed 6th HBO treatment today tolerated well vital signs were stable throughout treatment. Progress: Today is the 7th treatment of hyperbaric oxygen therapy. The patient is scheduled for 20 treatments total. Tolerance of hyperbaric oxygen therapy: Hyperbaric oxygen treatment was provided as per the facility's protocol at 2.0 [place] in 100% oxygen for 90 minutes without air breaks. The patient tolerated hyperbaric oxygen well, without complications or complaints. Upon emergence of the hyperbaric chamber, the patient's vital signs remained stable. Subjective Subjective Patient has no complaints at this time Objective Data Objective Data Vital Signs: Vital Signs Temp Pulse Resp BP 97.9 F 61 16 152/67 H 05/06/21 08:53 05/06/21 08:53 05/06/21 08:53 05/06/21 08:53 Weight: 328 lb 7.82 oz Body Mass Index (BMI) 23.5 Lab / Micro Data Labs: Laboratory Results - last 24 hr 05/06/21 08:00: POC Glucose 172 H 05/06/21 10:15: POC Glucose 91 Exam Physical Exam Const alert and oriented x3 General Appearance: cooperative HEENT normocephalic HEENT Narrative: Bilateral tympanostomy tubes Head and Scalp: atraumatic Resp clear to auscultation bilaterally Cardio regular rate and regular rhythm Psych Appearance: grossly normal Assessment/Plan Assessment/Plan (1) Type 2 diabetes mellitus with diabetic polyneuropathy: CODE(S): E11.42 - Type 2 diabetes mellitus with diabetic polyneuropathy QUALIFIERS: Diabetes mellitus assisted insulin use: without engine buildup mechanic use Qualified Code(s): E11.42 - Type 2 diabetes mellitus with diabetic polyneuropathy (2) Ulcer of left foot with bone involvement without evidence of necrosis: CODE(S): L97.526 - 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 without evidence of necrosis (3) Osteomyelitis: CODE(S): M86.9 - Osteomyelitis, unspecified QUALIFIERS: Osteomyelitis type: subacute Osteomyelitis location: foot Laterality: left Qualified Code(s): M86.272 - Subacute osteomyelitis, left ankle and foot (4) Non-pressure chronic ulcer of other part of left foot with necrosis of bone: CODE(S): L97.524 - Non-pressure chronic ulcer of other part of left foot with necrosis of bone (5) Type 2 diabetes mellitus: CODE(S): E11.9 - Type 2 diabetes mellitus without complications QUALIFIERS: Diabetes mellitus engine buildup mechanic insulin use: unspecified engine buildup mechanic insulin use status Diabetes mellitus complication status: with circulatory complication Diabetes mellitus complication detail: with peripheral angiopathy with gangrene Qualified Code(s): E11.52 - Type 2 diabetes mellitus with diabetic peripheral angiopathy with gangrene (6) PAD (peripheral artery disease): CODE(S): I73.9 - Peripheral vascular disease, unspecified (7) Non-pressure chronic ulcer of other part of left foot with fat layer exposed: CODE(S): L97.522 - Non-pressure chronic ulcer of other part of left foot with fat layer exposed (8) 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 PLAN: The patient appears to be tolerating hyperbaric oxygen therapy well, which will be continued as per his medical treatment plan.
[2021-05-07 08:00] LABS: Bedside Glucose 117 mg/dL (70-110)
[2021-05-07 08:16] LABS: Bedside Glucose 107 mg/dL (70-110)
[2021-05-07 08:37] LABS: Bedside Glucose 102 mg/dL (70-110)
[2021-05-07 09:04] VITALS: BP 165/60; PULSE 61; RESP 16; TEMP 36
[2021-05-08 13:11] VITALS: BP 154/64; PULSE 65; RESP 18; TEMP 36.4; BMI 23.5
--- NOTE | 2021-05-08 15:26 | PN.PCM_ITS ---
History of Present Illness Date of Service: 05/08/21 Chief Complaint: Diabetic foot ulceration?left foot Left fourth and fifth digit amputation site ulceration Peripheral arterial occlusive disease History of Wound: Patient had intervention done by Dr. Nicholson on 06/12/2020. Patient saw Dr. Tenorio June 26, 2020 and was started on 100mg gabapentin TID. She has noticed some improvement in her pain. Patient had further intervention with Dr. Nicholson on October 11, 2020. Patient relates having to be transferred to [facility] for this. 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 Amputation of 4th digit with debridement of 1st and 5th digit ulcerations was performed 07/08/20. 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 Patient underwent left fifth digit amputation with attempted delayed closure of fourth digit amputation site ulceration and with application of amnio fix grafting to all sites by Dr. López on 01/03/2021. The attempt for delayed primary closure of the previous fourth digit amputation site ulceration was not successful and ulceration here remains. Cultures at this time are also positive for Pseudomonas. 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 Cultures from 02/05/2021 were also positive for Pseudomonas. Patient has had multiple rounds of antibiotics and consultation with infectious disease over this infection. Patient is noted to have return of vascular symptom complaints especially to left lower extremity. She has appointment with Dr. Nicholson for reassessment with the understanding she might need possible further intervention. Patient continues care at the wound care center for remaining left foot wounds. Patient is noted to have been approved for [employer] but was not fully covered and would not be able to cover the remaining financial expense. Patient has had other modalities of treatment to include HBO therapy. She did had a revascularization procedure with Dr. Nicholson on . She is doing well and follow-up in 6 months. She is also scheduled to undergo hyperbaric oxygen therapy treatment today. She denies fever, chill, nausea, vomiting. She reports minimal foot pain. She denies odor. Progress of Wound: Improving Objective Data Objective Data Vital Signs: Vital Signs Temp Pulse Resp BP 97.6 F L 65 18 154/64 H 05/08/21 13:11 05/08/21 13:11 05/08/21 13:11 05/08/21 13:11 Weight: 149 kg Body Mass Index (BMI) 23.5 Physical Exam Extremity Extremity Narrative: no cyanosis, no calf tenderness, diminished pulses muscle wasting noted. no tenderness Amputation lateral left forefoot No fluctuance or bogginess on palpation Skin Skin Narrative: no purulence, no erythema, no streaking, no odor, no infection. Adjacent skin is atrophic. hallux is healed with full epithelialization. The distal most lateral foot ulcer has a granular base. The distal most lateral ulcer has a granular base and no longer visualized bone. There is some fibrous tissue buildup underneath the eschar which appears healthy after debridement. There is no periulcer inflammation Neuro Neuro Narrative: lack of normal epicritic sensation via light touch consistent with neuropathy Debridement Note Debridement Note Wound debrided: lateral left foot x 2 (distal most and proximal lateral) Wound Grade/Stage: 1,3 Type of Debridement: Excisional debridement Anesthesia Used: 4% Lidocaine Solution Depth: in the subcutaneous layer Percentage of wound debrided: 100 Instrument Used: #15 blade Tissue Removed: fibrous, devitalized subcutaneous, biofilm, slough Severity: Fat Layer Exposed Amount of bleeding with debridement: Mild Bleeding Controlled with: Pressure Patient tolerated procedure: Patient tolerated procedure well Post-Debridement Measurements and Additional Note: Post-Debridement Measurements/Treatment - Nurse 1 - General Ulcer Assessment Start: 04/24/21 08:14 Freq: Status: Active Protocol: ESVIN Activity Type Activity Date Activity User E-Sign Co-Sign Detail Recorded Client Recorded Date Recorded By Document 04/24/21 08:14 RB [id number] 04/24/21 08:24 RB Document 05/01/21 10:29 DL [id number] 05/01/21 10:36 DL Document 05/08/21 13:11 RB [id number] 05/08/21 13:20 RB 04/24/21 05/01/21 05/08/21 08:14 10:29 13:11 - Today's Visit Information Type of service Follow-up Visit Follow-up Visit Follow-up Visit (Physician/OPTICS TEST TECHNICIAN (Physician/OPTICS TEST TECHNICIAN (Physician/OPTICS TEST TECHNICIAN ) ) ) Arrival Mode Ambulatory Ambulatory, Ambulatory Other Transfer Assistance None Manual None Transfer Assist (Other) x1 Patient Identification Verified (Name & Yes Yes Yes ) Patient Requires Transmission-Based No Precautions Finger Stick Blood Sugar(mg/dl) (if 167 153 indicated): Blood Sugar Stated by Stated by Patient Patient Height and Weight Body Mass Index (BMI) 23.5 23.5 23.5 BMI Classification Normal Normal Normal Vital Signs Temperature (97.8 F-99.1 F) 97.3 F L 97.3 F L 97.6 F L Temperature Source Temporal Temporal Temporal Pulse Rate (60-100) 68 60 65 Pulse Location Monitor Monitor Monitor Respiratory Rate (12-18) 16 18 Respiratory rate source Observation Observation Observation Blood Pressure (90/60-120/80) 154/62 H 155/67 H 154/64 H Blood Pressure Mean (mm Hg) 92 96 94 Source Monitor Monitor Monitor Position Sitting Sitting Blood Pressure Location Left Arm Left Arm Comment Pt completed HBO tx prior to Dr. Lowe this morning History Since Last Visit- (Skip if this is Patient's initial visit) Have you changed medications since your No No No last visit? Any new allergies or adverse reactions No No No Had a fall/change in ADL's that may No No No increase risk of falls Signs or symptoms of abuse and/or No No No neglect since last visit Have you been in the hospital since your No No No last visit? Has dressing in place as prescribed Yes Yes Yes Has compression in place as prescribed Yes Yes Yes Has offloadiing in place as prescribed No No Experienced any changes in pain level or No No No management Pain Scale: 0-10 Numeric Is Patient Pain Free? Yes Yes Yes WC - Nurse 1 - General Ulcer Measurement Start: 04/24/21 08:14 Freq: Status: Active Protocol: Activity Type Activity Date Activity User E-Sign Co-Sign Detail Recorded Client Recorded Date Recorded By Document 04/24/21 08:14 RB [id number] 04/24/21 08:24 RB Document 05/01/21 10:29 DL [id number] 05/01/21 10:36 DL Document 05/08/21 13:11 RB [id number] 05/08/21 13:20 RB 04/24/21 05/01/21 05/08/21 08:14 10:29 13:11 Wound Center Nurse 1 #3 4th lateral toe/amp site -Combined with other wound No No -Current Size (cm) - Length 1.1 1 0.8 -Current Size (cm) - Width 0.4 0.4 0.3 -Current Size (cm) - Depth 0.4 0.5 0.3 -Total Square Cm 0.44 0.4 0.24 -Photo Taken No No -Tunneling No No -Undermining/Tunneling No No -Circular Undermining No -Exudate Amt Large Small Medium -Exudate Type Serosanguineous Serosanguineous -Wound Margin Thickened & Thickened & Thickened & Rolled Under Rolled Under Rolled Under -Granulation Amt Medium (34-66%) Small (1-33%) Medium (34-66%) -Granulation Quality Euclid Euclid Euclid -Slough/Fibrin Yes Yes -Necrosis Amt None Present (0 Large (67-100%) Small (1-33%) %) -Necrotic Tissue Type Adherent Slough Adherent Slough Adherent Slough -Structure Exposed N/A N/A -Texture (Dot-wound Skin Appearance) Assessed, Scarring Assessed, Scarring Scarring -Moisture (Dot-wound Skin Appearance) Assessed Dry/Scaly Assessed -Color (Dot-wound Skin Appearance) Assessed Assessed -Temperature (Dot-wound Skin No Abnormality No Abnormality No Abnormality Appearance) (Pt Warm) (Pt Warm) (Pt Warm) -Tenderness on Palpation (Dot-wound No No No Skin Appearance) -Ulcer Cleansing Wound Cleanser Rinsed/ Wound Cleanser Irrigated with Saline -Foul Odor after Cleansing No No No -Anesthetic Used 5% Lidocaine 5% Lidocaine 4% Lidocaine Gel Gel Solution,5% Lidocaine Gel #2 L 5th toe AMP site -Combined with other wound No No -Current Size (cm) - Length 0.4 0.6 0.8 -Current Size (cm) - Width 0.4 0.5 0.6 -Current Size (cm) - Depth 0.3 0.4 0.4 -Total Square Cm 0.16 0.30 0.48 -Photo Taken No -Tunneling No No -Undermining/Tunneling No No -Circular Undermining No No -Exudate Amt Medium Small Medium -Exudate Type Serosanguineous Purulent Serosanguineous -Wound Margin Thickened & Thickened & Rolled Under Rolled Under -Granulation Amt Medium (34-66%) None Present (0 Medium (34-66%) %) -Granulation Quality [place]ucl[place]uclid -Slough/Fibrin Yes Yes -Necrosis Amt Small (1-33%) Large (67-100%) Small (1-33%) -Necrotic Tissue Type Adherent Slough Adherent Slough Adherent Slough -Structure Exposed N/A N/A N/A -Texture (Dot-wound Skin Appearance) Assessed, Scarring Assessed Scarring -Moisture (Dot-wound Skin Appearance) Assessed No Abnormality Assessed -Color (Dot-wound Skin Appearance) Assessed Erythema,Rubor Assessed -Temperature (Dot-wound Skin No Abnormality No Abnormality No Abnormality Appearance) (Pt Warm) (Pt Warm) (Pt Warm) -Tenderness on Palpation (Dot-wound No No No Skin Appearance) -Ulcer Cleansing Wound Cleanser Rinsed/ Wound Cleanser Irrigated with Saline -Foul Odor after Cleansing No No No -Anesthetic Used 5% Lidocaine 5% Lidocaine 4% Lidocaine Gel Gel Solution,5% Lidocaine Gel Left Calf (cm) 34 Left Ankle (cm) 22 WC - Nurse 2 - General Ulcer CM Notes Start: 04/24/21 08:14 Freq: Status: Active Protocol: Activity Type Activity Date Activity User E-Sign Co-Sign Detail Recorded Client Recorded Date Recorded By Document 04/24/21 08:35 [id number] 04/24/21 08:40 Document 05/01/21 10:46 [id number] 05/01/21 10:53 Document 05/08/21 13:28 [id number] 05/08/21 13:34 04/24/21 05/01/21 05/08/21 08:35 10:46 13:28 Wound Center Nurse 2 #3 4th lateral toe/amp site -Time 08:36 10:46 13:29 -Correct Patient Yes Yes Yes -Correct Side, Site, Position Yes Yes Yes -Correct Procedure Yes Yes Yes -Procedure Performed Yes Yes Yes -Type of Procedure Debridement Debridement Debridement -Clinical Debridement Subcutaneous Subcutaneous Subcutaneous -Tissue Removed Subcutaneous Subcutaneous Subcutaneous -Post Debridement (cm) - Length 1.5 1.1 0.8 -Post Debridement (cm) - Width 0.5 0.3 0.3 -Post Debridement (cm) - Depth 0.3 0.2 0.2 -Total Square (Post) (cm) 0 0.33 0.24 -Area of Debridement (cm) - Length 1.5 1.1 0.8 -Area of Debridement (cm) - Width 0.5 0.3 0.3 -Total Square (Area) (cm) 0.75 0.33 0.24 -Tunneling No No No -Undermining/Tunneling No No No -Circular Undermining No No No -Wound/Ulcer Outcome Not Healed Not Healed Not Healed -Ulcer Cleansing Rinsed/ Rinsed/ Rinsed/ Irrigated with Irrigated with Irrigated with Saline Saline Saline -Foul Odor after Cleansing No No No -Bioengineered Tissue No No No -Bleeding Controlled with Pressure Pressure Pressure -Offloading Yes Yes Yes -Type of Offloading Surgical Shoe Surgical Shoe Surgical Shoe -Treatment Response Procedure Procedure Procedure Tolerated Well Tolerated Well Tolerated Well -Debridement - Subq, 1st 20sq cm No No Yes #2 L 5th toe AMP site -Time 08:36 10:47 13:31 -Correct Patient Yes Yes Yes -Correct Side, Site, Position Yes Yes Yes -Correct Procedure Yes Yes Yes -Procedure Performed Yes Yes Yes -Type of Procedure Debridement Debridement Debridement -Clinical Debridement Subcutaneous Subcutaneous Subcutaneous -Tissue Removed Subcutaneous Subcutaneous Subcutaneous -Post Debridement (cm) - Length 0.8 0.9 0.5 -Post Debridement (cm) - Width 0.6 0.7 0.8 -Post Debridement (cm) - Depth 0.2 0.4 0.2 -Total Square (Post) (cm) 0.48 0.63 0.40 -Area of Debridement (cm) - Length 0.8 0.9 0.5 -Area of Debridement (cm) - Width 0.6 0.7 0.8 -Total Square (Area) (cm) 0.48 0.63 0.40 -Tunneling No No No -Undermining/Tunneling No No No -Circular Undermining No No No -Wound/Ulcer Outcome Not Healed Not Healed Not Healed -Ulcer Cleansing Rinsed/ Rinsed/ Rinsed/ Irrigated with Irrigated with Irrigated with Saline Saline Saline -Foul Odor after Cleansing No No No -Bioengineered Tissue No No No -Bleeding Controlled with Pressure Pressure Pressure -Offloading Yes Yes Yes -Type of Offloading Surgical Shoe Surgical Shoe Surgical Shoe -Treatment Response Procedure Procedure Procedure Tolerated Well Tolerated Well Tolerated Well -Debridement - Subq, 1st 20sq cm Yes Yes Yes Pain Scale: 0-10 Numeric Is Patient Pain Free? Yes Yes Yes WC - Nurse 3 - General Ulcer D/C NN Start: 04/24/21 08:14 Freq: Status: Active Protocol: Activity Type Activity Date Activity User E-Sign Co-Sign Detail Recorded Client Recorded Date Recorded By Document 04/24/21 08:50 DL [id number] 04/24/21 08:51 DL Document 05/01/21 10:59 RB [id number] 05/01/21 11:01 RB Document 05/08/21 13:45 DL [id number] 05/08/21 13:47 DL 04/24/21 05/01/21 05/08/21 08:50 10:59 13:45 Wound Care Nurse 3 #3 4th lateral toe/amp site -Ulcer Cleansing Soap and Water Rinsed/ Irrigated with Saline -Foul Odor after Cleansing No -Primary Dressing Applied Fibracol Plus Fibracol Plus 4x4 4x4 -Other Dressing fibracol + -Primary Dressing Covered/Secured with Dry Gauze & Dry Gauze,Dry Dry Gauze & Roll Gauze, Gauze & Roll Roll Gauze, Secured with Gauze,Secured Secured with Tape with Tape Tape -Fibracol Plus 4x4 1 1 #2 L 5th toe AMP site -Ulcer Cleansing Soap and Water Rinsed/ Irrigated with Saline -Foul Odor after Cleansing No No -Other Dressing fibracol fibracol+ Fibracol -Primary Dressing Covered/Secured with Dry Gauze & Dry Gauze,Dry Dry Gauze & Roll Gauze, Gauze & Roll Roll Gauze, Secured with Gauze,Secured Secured with Tape with Tape Tape Left -Other jose Treatment Response Procedure Procedure Procedure Tolerated Well Tolerated Well Tolerated Well Pain Scale: 0-10 Numeric Is Patient Pain Free? Yes Yes Yes WC - Visit Discharge Discharge Condition Stable Stable Stable Ambulatory Status Ambulatory Ambulatory Ambulatory Transportation Private Auto Private Auto Private Auto Medication Reconcilliation completed & No provided to patient/care provider Clinical Summary of Care Provided Yes Notes: Dressing applied per Lucina Nguyen today Facility Type Home Health Orders Sent Yes Assessment/Plan Assessment/Plan (1) Non-pressure chronic ulcer of other part of left foot with necrosis of bone: CODE(S): L97.524 - Non-pressure chronic ulcer of other part of left foot with necrosis of bone (2) Non-pressure chronic ulcer of other part of left foot with fat layer exposed: CODE(S): L97.522 - Non-pressure chronic ulcer of other part of left foot with fat layer exposed (3) Osteomyelitis: CODE(S): M86.9 - Osteomyelitis, unspecified QUALIFIERS: Osteomyelitis type: subacute Osteomyelitis location: foot Laterality: left Qualified Code(s): M86.272 - Subacute osteomyelitis, left ankle and foot (4) PAD (peripheral artery disease): CODE(S): I73.9 - Peripheral vascular disease, unspecified (5) History of tobacco abuse: CODE(S): Z87.891 - Personal history of nicotine dependence (6) Ischaemic rest pain of lower extremity: CODE(S): M79.606 - Pain in leg, unspecified; I99.8 - Other disorder of circulatory system (7) Delayed wound healing: CODE(S): T14.8XXD - Other injury of unspecified body region, subsequent encounter (8) Amputated toe: CODE(S): S98.139A - Complete traumatic amputation of one unspecified lesser toe, initial encounter QUALIFIERS: Laterality: left Qualified Code(s): S98.132A - Complete traumatic amputation of one left lesser toe, initial encounter (9) Type 2 diabetes mellitus with diabetic polyneuropathy: CODE(S): E11.42 - Type 2 diabetes mellitus with diabetic polyneuropathy QUALIFIERS: Diabetes mellitus termite control technician insulin use: without termite control technician use Qualified Code(s): E11.42 - Type 2 diabetes mellitus with diabetic polyneuropathy (10) Eschar of foot: CODE(S): R23.4 - Changes in skin texture PLAN: Patient seen and examined with family member present. She had recent vascular surgery intervention on with Dr. Nicholson again.To follow up as scheduled. Her prior vascular studies 03/11/21 show bilateral DP and PT monphasic pulses. JENY left 0.4 at PT and 1.35 at DP and on right 0.66 at PT and 0.9 at DP with TBI of 0.19. No TBI obtained on left. She was previously treated with Levaquin per Dr. Skaggs, infectious disease specialist. Patient had cultures obtained 02/05/2021 demonstrating Pseudomonas. Discussed possibility of colonization with Pseudomonas with patient and family members. Patient has had Pseudomonas consistently on her wound cultures for the last several months with multiple rounds of treatment. Culture of 5th metatarsal bone 03/05/21 was positive for PsAg. She was reassured no local signs infection noted today. To continue with diligent antibacterial soap and water wash with wound dressing changes. She was concerned about purulence and infection however after debridement under the eschar it appears there is collection of fibrous tissue. She was advised to monitor for redness streaking odor or deterioration in the next week. Every other day Aquacel silver dressing changes to ulceration sites covered with dry sterile dressing. To wash with soap and water prior. She has done well with this so far. Reviewed proper wound care with patient. Discussed with the patient the importance of offloading the sites with wide enough shoe gear if she is to be wearing shoes, proper diet, good blood sugar control. Patient has used Darci in the past nutritional supplementation. She continues to use this twice a day. Patient was offered nutritional counseling with a railroad wheels and axle inspector. She is noted to have had counseling while in the hospital. Patient has offloaded surgical shoe. Discussed with the patient all concerning signs and symptoms to watch out for and to contact office if he either presents. Application for TheraSkin skin graft is approved but there is a portion that patient has cover [id number]. Patient will discuss with family if this is doable if she wants to proceed with this she will let us know. Resubmitted to see if her [id number] cost is changed since previous submission. Patient is noted to still be responsible for $325 per application. This is not doable per patient. Patient and family may reconsider pending vascular results with Dr. Nicholson. Patient has a diabetic foot ulceration that has failed to show measurable signs of healing after completing 30 consecutive days of standard wound care. There is confirmed osteomyelitis to left 5th metatarsal even though patient has had multiple rounds of antibiotics and consultations with infectious disease. Patient would likely be a good candidate for hyperbaric oxygen therapy. This would include further work up with labs, imaging, and clearance consultation. If patient is approved for hyperbaric oxygen therapy our goals would be to get progression and healing of patient's wounds while continuing regular debridements, monitoring, offloading, medical optimizing and monitoring. Patient is noted to have been denied hyperbarics in the past but with new osteomyelitis we are hopeful that she will be approved for therapy in order to obtain wound healing. She will proceed with hyperbaric oxygen therapy this morning. She is doing well so far. Patient is to follow-up in 2 weeks. This note was generated with [employer]ivid[employer] software. It may contain incorrect words, spelling, and punctuation that were not noted in checking the note before signing.
[2021-05-09 08:01] LABS: Bedside Glucose 157 mg/dL (70-110)
[2021-05-09 08:23] VITALS: BP 161/58; BP 170/69; PULSE 65; RESP 16; TEMP 36.2
[2021-05-09 10:16] LABS: Bedside Glucose 114 mg/dL (70-110)
--- NOTE | 2021-05-09 10:32 | PCM.HBO.PN ---
History of Present Illness Date of Service: 05/09/21 Chief Complaint: Diabetic foot ulceration?left foot Left fourth and fifth digit amputation site ulceration Peripheral arterial occlusive disease History of Wound: Patient had intervention done by Dr. Nicholson on 06/12/2020. Patient saw Dr. Tenorio June 26, 2020 and was started on 100mg gabapentin TID. She has noticed some improvement in her pain. Patient had further intervention with Dr. Nicholson on October 11, 2020. Patient relates having to be transferred to [facility] for this. 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 Amputation of 4th digit with debridement of 1st and 5th digit ulcerations was performed 07/08/20. 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 Patient underwent left fifth digit amputation with attempted delayed closure of fourth digit amputation site ulceration and with application of amnio fix grafting to all sites by Dr. López on 01/03/2021. The attempt for delayed primary closure of the previous fourth digit amputation site ulceration was not successful and ulceration here remains. Cultures at this time are also positive for Pseudomonas. 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 Cultures from 02/05/2021 were also positive for Pseudomonas. Patient has had multiple rounds of antibiotics and consultation with infectious disease over this infection. Patient is noted to have return of vascular symptom complaints especially to left lower extremity. She has appointment with Dr. Nicholson for reassessment with the understanding she might need possible further intervention. Patient continues care at the wound care center for remaining left foot wounds. Patient is noted to have been approved for [employer] but was not fully covered and would not be able to cover the remaining financial expense. Patient has had other modalities of treatment to include HBO therapy. She did had a revascularization procedure with Dr. Nicholson on ?18. She is doing well and follow-up in 6 months. She is also scheduled to undergo hyperbaric oxygen therapy treatment today. She denies fever, chill, nausea, vomiting. She reports minimal foot pain. She denies odor. Progress of Wound: Progress of Wound: Patient completed 8th HBO treatment today tolerated well vital signs were stable throughout treatment. Progress: Today is the 6th treatment of hyperbaric oxygen therapy. The patient is scheduled for 20 treatments total. Tolerance of hyperbaric oxygen therapy: Hyperbaric oxygen treatment was provided as per the facility's protocol at 2.0 [place] in 100% oxygen for 90 minutes without air breaks. The patient tolerated hyperbaric oxygen well, without complications or complaints. Upon emergence of the hyperbaric chamber, the patient's vital signs remained stable. Subjective Subjective No new concerns at this time. Objective Data Objective Data Vital Signs: Vital Signs Temp Pulse Resp BP 97.2 F L 65 16 161/58 H 05/09/21 08:23 05/09/21 08:23 05/09/21 08:23 05/09/21 08:23 Weight: 328 lb 7.82 oz Body Mass Index (BMI) 23.5 Lab / Micro Data Labs: Laboratory Results - last 24 hr 05/09/21 07:54: POC Glucose 157 H 05/09/21 10:11: POC Glucose 114 H Exam Nursing Assessment and Debridement Post-Debridement Measurements and Additional Note: Post-Debridement Measurements/Treatment WC - Nurse 1 - General Ulcer Assessment Start: 04/24/21 08:14 Freq: Status: Active Protocol: WC.LOWEXT Activity Type Activity Date Activity User E-Sign Co-Sign Detail Recorded Client Recorded Date Recorded By Document 05/08/21 13:11 [id number] 05/08/21 13:20 RB 05/08/21 13:11 WC - Today's Visit Information Type of service Follow-up Visit (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/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 ) Arrival Mode Ambulatory Transfer Assistance None Patient Identification Verified (Name & Yes ) Finger Stick Blood Sugar(mg/dl) (if 153 indicated): Blood Sugar Stated by Patient Height and Weight Body Mass Index (BMI) 23.5 BMI Classification Normal Vital Signs Temperature (97.8 F-99.1 F) 97.6 F L Temperature Source Temporal Pulse Rate (60-100) 65 Pulse Location Monitor Respiratory Rate (12-18) 18 Respiratory rate source Observation Blood Pressure (90/60-120/80) 154/64 H Blood Pressure Mean (mm Hg) 94 Source Monitor Position Sitting Blood Pressure Location Left Arm History Since Last Visit- (Skip if this is Patient's initial visit) Have you changed medications since your No last visit? Any new allergies or adverse reactions No Had a fall/change in ADL's that may No increase risk of falls Signs or symptoms of abuse and/or No neglect since last visit Have you been in the hospital since your No last visit? Has dressing in place as prescribed Yes Has compression in place as prescribed Yes Has offloadiing in place as prescribed No Experienced any changes in pain level or No management Pain Scale: 0-10 Numeric Is Patient Pain Free? Yes WC - Nurse 1 - General Ulcer Measurement Start: 04/24/21 08:14 Freq: Status: Active Protocol: Activity Type Activity Date Activity User E-Sign Co-Sign Detail Recorded Client Recorded Date Recorded By Document 05/08/21 13:11 RB [id number] 05/08/21 13:20 RB 05/08/21 13:11 Wound Center Nurse 1 #3 4th lateral toe/amp site -Combined with other wound No -Current Size (cm) - Length 0.8 -Current Size (cm) - Width 0.3 -Current Size (cm) - Depth 0.3 -Total Square Cm 0.24 -Tunneling No -Undermining/Tunneling No -Circular Undermining No -Exudate Amt Medium -Wound Margin Thickened & Rolled Under -Granulation Amt Medium (34-66%) -Granulation Quality [place] -Slough/Fibrin Yes -Necrosis Amt Small (1-33%) -Necrotic Tissue Type Adherent Slough -Structure Exposed N/A -Texture (Dot-wound Skin Appearance) Assessed, Scarring -Moisture (Dot-wound Skin Appearance) Assessed -Temperature (Dot-wound Skin No Abnormality Appearance) (Pt Warm) -Tenderness on Palpation (Dot-wound No Skin Appearance) -Ulcer Cleansing Wound Cleanser -Foul Odor after Cleansing No -Anesthetic Used 4% Lidocaine Solution,5% Lidocaine Gel #2 L 5th toe AMP site -Combined with other wound No -Current Size (cm) - Length 0.8 -Current Size (cm) - Width 0.6 -Current Size (cm) - Depth 0.4 -Total Square Cm 0.48 -Tunneling No -Undermining/Tunneling No -Circular Undermining No -Exudate Amt Medium -Exudate Type Serosanguineous -Wound Margin Thickened & Rolled Under -Granulation Amt Medium (34-66%) -Granulation Quality [place] -Slough/Fibrin Yes -Necrosis Amt Small (1-33%) -Necrotic Tissue Type Adherent Slough -Structure Exposed N/A -Texture (Dot-wound Skin Appearance) Assessed -Moisture (Dot-wound Skin Appearance) Assessed -Color (Dot-wound Skin Appearance) Assessed -Temperature (Dot-wound Skin No Abnormality Appearance) (Pt Warm) -Tenderness on Palpation (Dot-wound No Skin Appearance) -Ulcer Cleansing Wound Cleanser -Foul Odor after Cleansing No -Anesthetic Used 4% Lidocaine Solution,5% Lidocaine Gel WC - Nurse 2 - General Ulcer CM Notes Start: 04/24/21 08:14 Freq: Status: Active Protocol: Activity Type Activity Date Activity User E-Sign Co-Sign Detail Recorded Client Recorded Date Recorded By Document 05/08/21 13:28 [id number] 05/08/21 13:34 05/08/21 13:28 Wound Center Nurse 2 #3 4th lateral toe/amp site -Time 13:29 -Correct Patient Yes -Correct Side, Site, Position Yes -Correct Procedure Yes -Procedure Performed Yes -Type of Procedure Debridement -Clinical Debridement Subcutaneous -Tissue Removed Subcutaneous -Post Debridement (cm) - Length 0.8 -Post Debridement (cm) - Width 0.3 -Post Debridement (cm) - Depth 0.2 -Total Square (Post) (cm) 0.24 -Area of Debridement (cm) - Length 0.8 -Area of Debridement (cm) - Width 0.3 -Total Square (Area) (cm) 0.24 -Tunneling No -Undermining/Tunneling No -Circular Undermining No -Wound/Ulcer Outcome Not Healed -Ulcer Cleansing Rinsed/ Irrigated with Saline -Foul Odor after Cleansing No -Bioengineered Tissue No -Bleeding Controlled with Pressure -Offloading Yes -Type of Offloading Surgical Shoe -Treatment Response Procedure Tolerated Well -Debridement - Subq, 1st 20sq cm Yes #2 L 5th toe AMP site -Time 13:31 -Correct Patient Yes -Correct Side, Site, Position Yes -Correct Procedure Yes -Procedure Performed Yes -Type of Procedure Debridement -Clinical Debridement Subcutaneous -Tissue Removed Subcutaneous -Post Debridement (cm) - Length 0.5 -Post Debridement (cm) - Width 0.8 -Post Debridement (cm) - Depth 0.2 -Total Square (Post) (cm) 0.40 -Area of Debridement (cm) - Length 0.5 -Area of Debridement (cm) - Width 0.8 -Total Square (Area) (cm) 0.40 -Tunneling No -Undermining/Tunneling No -Circular Undermining No -Wound/Ulcer Outcome Not Healed -Ulcer Cleansing Rinsed/ Irrigated with Saline -Foul Odor after Cleansing No -Bioengineered Tissue No -Bleeding Controlled with Pressure -Offloading Yes -Type of Offloading Surgical Shoe -Treatment Response Procedure Tolerated Well -Debridement - Subq, 1st 20sq cm No Pain Scale: 0-10 Numeric Is Patient Pain Free? Yes WC - Nurse 3 - General Ulcer D/C NN Start: 04/24/21 08:14 Freq: Status: Active Protocol: Activity Type Activity Date Activity User E-Sign Co-Sign Detail Recorded Client Recorded Date Recorded By Document 05/08/21 13:45 DL [id number] 05/08/21 13:47 DL 05/08/21 13:45 Wound Care Nurse 3 #3 4th lateral toe/amp site -Ulcer Cleansing Rinsed/ Irrigated with Saline -Primary Dressing Applied Fibracol Plus 4x4 -Primary Dressing Covered/Secured with Dry Gauze & Roll Gauze, Secured with Tape -Fibracol Plus 4x4 1 #2 L 5th toe AMP site -Ulcer Cleansing Rinsed/ Irrigated with Saline -Foul Odor after Cleansing No -Other Dressing Fibracol -Primary Dressing Covered/Secured with Dry Gauze & Roll Gauze, Secured with Tape Treatment Response Procedure Tolerated Well Pain Scale: 0-10 Numeric Is Patient Pain Free? Yes WC - Visit Discharge Discharge Condition Stable Ambulatory Status Ambulatory Transportation Private Auto Notes: Dressing applied per Lucina Nguyen today Charges/Coding Wound Center CF Procedures HBO Supervision: [id number] Hyperbaric Oxygen; supervision Assessment/Plan Assessment/Plan (1) Type 2 diabetes mellitus with diabetic polyneuropathy: CODE(S): E11.42 - Type 2 diabetes mellitus with diabetic polyneuropathy QUALIFIERS: Diabetes mellitus medical terminologist insulin use: without skilled nursing use Qualified Code(s): E11.42 - Type 2 diabetes mellitus with diabetic polyneuropathy (2) Ulcer of left foot with bone involvement without evidence of necrosis: CODE(S): L97.526 - 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 without evidence of necrosis (3) Osteomyelitis: CODE(S): M86.9 - Osteomyelitis, unspecified QUALIFIERS: Osteomyelitis type: subacute Osteomyelitis location: foot Laterality: left Qualified Code(s): M86.272 - Subacute osteomyelitis, left ankle and foot (4) Non-pressure chronic ulcer of other part of left foot with necrosis of bone: CODE(S): L97.524 - Non-pressure chronic ulcer of other part of left foot with necrosis of bone (5) Type 2 diabetes mellitus: CODE(S): E11.9 - Type 2 diabetes mellitus without complications QUALIFIERS: Diabetes mellitus skilled nursing insulin use: unspecified medical terminologist insulin use status Diabetes mellitus complication status: with circulatory complication Diabetes mellitus complication detail: with peripheral angiopathy with gangrene Qualified Code(s): E11.52 - Type 2 diabetes mellitus with diabetic peripheral angiopathy with gangrene (6) PAD (peripheral artery disease): CODE(S): I73.9 - Peripheral vascular disease, unspecified (7) Non-pressure chronic ulcer of other part of left foot with fat layer exposed: CODE(S): L97.522 - Non-pressure chronic ulcer of other part of left foot with fat layer exposed (8) 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 PLAN: The patient appears to be tolerating hyperbaric oxygen therapy well which will be continued per the patient's medical plan.
[2021-05-10 08:01] LABS: Bedside Glucose 168 mg/dL (70-110)
[2021-05-10 09:05] VITALS: BP 152/54; BP 163/43; PULSE 58; PULSE 60; RESP 16; TEMP 36.1
[2021-05-10 10:10] LABS: Bedside Glucose 137 mg/dL (70-110)
--- NOTE | 2021-05-10 14:56 | PCM.HBO.PN ---
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 Nicholson on 06/12/2020. Patient saw Dr. Tenorio June 26, 2020 and was started on 100mg gabapentin TID. She has noticed some improvement in her pain. Patient had further intervention with Dr. Nicholson on October 11, 2020. Patient relates having to be transferred to [facility] for this. 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 Amputation of 4th digit with debridement of 1st and 5th digit ulcerations was performed 07/08/20. 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 Patient underwent left fifth digit amputation with attempted delayed closure of fourth digit amputation site ulceration and with application of amnio fix grafting to all sites by Dr. López on 01/03/2021. The attempt for delayed primary closure of the previous fourth digit amputation site ulceration was not successful and ulceration here remains. Cultures at this time are also positive for Pseudomonas. 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 Cultures from 02/05/2021 were also positive for Pseudomonas. Patient has had multiple rounds of antibiotics and consultation with infectious disease over this infection. Patient is noted to have return of vascular symptom complaints especially to left lower extremity. She has appointment with Dr. Nicholson for reassessment with the understanding she might need possible further intervention. Patient continues care at the wound care center for remaining left foot wounds. Patient is noted to have been approved for [facility] [facility] but was not fully covered and would not be able to cover the remaining financial expense. Patient has had other modalities of treatment to include HBO therapy. She did had a revascularization procedure with Dr. Nicholson on ?18. She is doing well and follow-up in 6 months. She is also scheduled to undergo hyperbaric oxygen therapy treatment today. She denies fever, chill, nausea, vomiting. She reports minimal foot pain. She denies odor. Progress of Wound: Progress: Today is the 9th treatment of hyperbaric oxygen therapy. The patient is scheduled for 20 treatments total. Tolerance of hyperbaric oxygen therapy: Hyperbaric oxygen treatment was provided as per the facility's protocol at 2.0 [place] in 100% oxygen for 90 minutes without air breaks. The patient tolerated hyperbaric oxygen well, without complications or complaints. Upon emergence of the hyperbaric chamber, the patient's vital signs remained stable. Subjective Subjective Patient has no complaints at this time Objective Data Objective Data Vital Signs: Vital Signs Temp Pulse Resp BP 96.9 F L 58 L 16 152/54 H 05/10/21 09:05 05/10/21 09:05 05/10/21 09:05 05/10/21 09:05 Weight: 149 kg Body Mass Index (BMI) 23.5 Lab / Micro Data Labs: Laboratory Results - last 24 hr 05/10/21 07:54: POC Glucose 168 H 05/10/21 10:09: POC Glucose 137 H Exam Physical Exam Const alert, oriented x3 and no apparent distress Psych thought process normal, cooperative and affect normal Nursing Assessment and Debridement Post-Debridement Measurements and Additional Note: Post-Debridement Measurements/Treatment WC - Nurse 1 - General Ulcer Assessment Start: 04/24/21 08:14 Freq: Status: Active Protocol: WC.LOWEXT Activity Type Activity Date Activity User E-Sign Co-Sign Detail Recorded Client Recorded Date Recorded By Document 05/08/21 13:11 [id number] 05/08/21 13:20 RB 05/08/21 13:11 WC - Today's Visit Information Type of service Follow-up 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 (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 ) Arrival Mode Ambulatory Transfer Assistance None Patient Identification Verified (Name & Yes ) Finger Stick Blood Sugar(mg/dl) (if 153 indicated): Blood Sugar Stated by Patient Height and Weight Body Mass Index (BMI) 23.5 BMI Classification Normal Vital Signs Temperature (97.8 F-99.1 F) 97.6 F L Temperature Source Temporal Pulse Rate (60-100) 65 Pulse Location Monitor Respiratory Rate (12-18) 18 Respiratory rate source Observation Blood Pressure (90/60-120/80) 154/64 H Blood Pressure Mean (mm Hg) 94 Source Monitor Position Sitting Blood Pressure Location Left Arm History Since Last Visit- (Skip if this is Patient's initial visit) Have you changed medications since your No last visit? Any new allergies or adverse reactions No Had a fall/change in ADL's that may No increase risk of falls Signs or symptoms of abuse and/or No neglect since last visit Have you been in the hospital since your No last visit? Has dressing in place as prescribed Yes Has compression in place as prescribed Yes Has offloadiing in place as prescribed No Experienced any changes in pain level or No management Pain Scale: 0-10 Numeric Is Patient Pain Free? Yes WC - Nurse 1 - General Ulcer Measurement Start: 04/24/21 08:14 Freq: Status: Active Protocol: Activity Type Activity Date Activity User E-Sign Co-Sign Detail Recorded Client Recorded Date Recorded By Document 05/08/21 13:11 RB [id number] 05/08/21 13:20 RB 05/08/21 13:11 Wound Center Nurse 1 #3 4th lateral toe/amp site -Combined with other wound No -Current Size (cm) - Length 0.8 -Current Size (cm) - Width 0.3 -Current Size (cm) - Depth 0.3 -Total Square Cm 0.24 -Tunneling No -Undermining/Tunneling No -Circular Undermining No -Exudate Amt Medium -Wound Margin Thickened & Rolled Under -Granulation Amt Medium (34-66%) -Granulation Quality [place] -Slough/Fibrin Yes -Necrosis Amt Small (1-33%) -Necrotic Tissue Type Adherent Slough -Structure Exposed N/A -Texture (Dot-wound Skin Appearance) Assessed, Scarring -Moisture (Dot-wound Skin Appearance) Assessed -Temperature (Dot-wound Skin No Abnormality Appearance) (Pt Warm) -Tenderness on Palpation (Dot-wound No Skin Appearance) -Ulcer Cleansing Wound Cleanser -Foul Odor after Cleansing No -Anesthetic Used 4% Lidocaine Solution,5% Lidocaine Gel #2 L 5th toe AMP site -Combined with other wound No -Current Size (cm) - Length 0.8 -Current Size (cm) - Width 0.6 -Current Size (cm) - Depth 0.4 -Total Square Cm 0.48 -Tunneling No -Undermining/Tunneling No -Circular Undermining No -Exudate Amt Medium -Exudate Type Serosanguineous -Wound Margin Thickened & Rolled Under -Granulation Amt Medium (34-66%) -Granulation Quality [place] -Slough/Fibrin Yes -Necrosis Amt Small (1-33%) -Necrotic Tissue Type Adherent Slough -Structure Exposed N/A -Texture (Dot-wound Skin Appearance) Assessed -Moisture (Dot-wound Skin Appearance) Assessed -Color (Dot-wound Skin Appearance) Assessed -Temperature (Dot-wound Skin No Abnormality Appearance) (Pt Warm) -Tenderness on Palpation (Dot-wound No Skin Appearance) -Ulcer Cleansing Wound Cleanser -Foul Odor after Cleansing No -Anesthetic Used 4% Lidocaine Solution,5% Lidocaine Gel WC - Nurse 2 - General Ulcer CM Notes Start: 04/24/21 08:14 Freq: Status: Active Protocol: Activity Type Activity Date Activity User E-Sign Co-Sign Detail Recorded Client Recorded Date Recorded By Document 05/08/21 13:28 [id number] 05/08/21 13:34 05/08/21 13:28 Wound Center Nurse 2 #3 4th lateral toe/amp site -Time 13:29 -Correct Patient Yes -Correct Side, Site, Position Yes -Correct Procedure Yes -Procedure Performed Yes -Type of Procedure Debridement -Clinical Debridement Subcutaneous -Tissue Removed Subcutaneous -Post Debridement (cm) - Length 0.8 -Post Debridement (cm) - Width 0.3 -Post Debridement (cm) - Depth 0.2 -Total Square (Post) (cm) 0.24 -Area of Debridement (cm) - Length 0.8 -Area of Debridement (cm) - Width 0.3 -Total Square (Area) (cm) 0.24 -Tunneling No -Undermining/Tunneling No -Circular Undermining No -Wound/Ulcer Outcome Not Healed -Ulcer Cleansing Rinsed/ Irrigated with Saline -Foul Odor after Cleansing No -Bioengineered Tissue No -Bleeding Controlled with Pressure -Offloading Yes -Type of Offloading Surgical Shoe -Treatment Response Procedure Tolerated Well -Debridement - Subq, 1st 20sq cm Yes #2 L 5th toe AMP site -Time 13:31 -Correct Patient Yes -Correct Side, Site, Position Yes -Correct Procedure Yes -Procedure Performed Yes -Type of Procedure Debridement -Clinical Debridement Subcutaneous -Tissue Removed Subcutaneous -Post Debridement (cm) - Length 0.5 -Post Debridement (cm) - Width 0.8 -Post Debridement (cm) - Depth 0.2 -Total Square (Post) (cm) 0.40 -Area of Debridement (cm) - Length 0.5 -Area of Debridement (cm) - Width 0.8 -Total Square (Area) (cm) 0.40 -Tunneling No -Undermining/Tunneling No -Circular Undermining No -Wound/Ulcer Outcome Not Healed -Ulcer Cleansing Rinsed/ Irrigated with Saline -Foul Odor after Cleansing No -Bioengineered Tissue No -Bleeding Controlled with Pressure -Offloading Yes -Type of Offloading Surgical Shoe -Treatment Response Procedure Tolerated Well -Debridement - Subq, 1st 20sq cm No Pain Scale: 0-10 Numeric Is Patient Pain Free? Yes - Nurse 3 - General Ulcer D/C NN Start: 04/24/21 08:14 Freq: Status: Active Protocol: Activity Type Activity Date Activity User E-Sign Co-Sign Detail Recorded Client Recorded Date Recorded By Document 05/08/21 13:45 DL [id number] 05/08/21 13:47 DL 05/08/21 13:45 Wound Care Nurse 3 #3 4th lateral toe/amp site -Ulcer Cleansing Rinsed/ Irrigated with Saline -Primary Dressing Applied Fibracol Plus 4x4 -Primary Dressing Covered/Secured with Dry Gauze & Roll Gauze, Secured with Tape -Fibracol Plus 4x4 1 #2 L 5th toe AMP site -Ulcer Cleansing Rinsed/ Irrigated with Saline -Foul Odor after Cleansing No -Other Dressing Fibracol -Primary Dressing Covered/Secured with Dry Gauze & Roll Gauze, Secured with Tape Treatment Response Procedure Tolerated Well Pain Scale: 0-10 Numeric Is Patient Pain Free? Yes WC - Visit Discharge Discharge Condition Stable Ambulatory Status Ambulatory Transportation Private Auto Notes: Dressing applied per Lucina Nguyen today Assessment/Plan Assessment/Plan (1) Type 2 diabetes mellitus with diabetic polyneuropathy: CODE(S): E11.42 - Type 2 diabetes mellitus with diabetic polyneuropathy QUALIFIERS: Diabetes mellitus terminal operations supervisor insulin use: without senior care use Qualified Code(s): E11.42 - Type 2 diabetes mellitus with diabetic polyneuropathy (2) Ulcer of left foot with bone involvement without evidence of necrosis: CODE(S): L97.526 - 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 without evidence of necrosis (3) Osteomyelitis: CODE(S): M86.9 - Osteomyelitis, unspecified QUALIFIERS: Osteomyelitis type: subacute Osteomyelitis location: foot Laterality: left Qualified Code(s): M86.272 - Subacute osteomyelitis, left ankle and foot (4) Non-pressure chronic ulcer of other part of left foot with necrosis of bone: CODE(S): L97.524 - Non-pressure chronic ulcer of other part of left foot with necrosis of bone (5) Type 2 diabetes mellitus: CODE(S): E11.9 - Type 2 diabetes mellitus without complications QUALIFIERS: Diabetes mellitus terminal operations supervisor insulin use: unspecified senior care insulin use status Diabetes mellitus complication status: with circulatory complication Diabetes mellitus complication detail: with peripheral angiopathy with gangrene Qualified Code(s): E11.52 - Type 2 diabetes mellitus with diabetic peripheral angiopathy with gangrene (6) PAD (peripheral artery disease): CODE(S): I73.9 - Peripheral vascular disease, unspecified (7) Non-pressure chronic ulcer of other part of left foot with fat layer exposed: CODE(S): L97.522 - Non-pressure chronic ulcer of other part of left foot with fat layer exposed (8) 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 PLAN: The patient appears to be tolerating hyperbaric oxygen therapy well, which will be continued as per her medical treatment plan.
[2021-05-13 08:06] LABS: Bedside Glucose 130 mg/dL (70-110)
[2021-05-14 07:55] LABS: Bedside Glucose 194 mg/dL (70-110)
[2021-05-14 08:53] VITALS: BP 147/52; BP 166/61; PULSE 57; PULSE 58; RESP 16; RESP 18; TEMP 35.9
[2021-05-14 10:21] LABS: Bedside Glucose 100 mg/dL (70-110)
--- NOTE | 2021-05-14 14:05 | HBO.PN.PCM_ITS ---
History of Present Illness Date of Service: 05/14/21 Chief Complaint: Diabetic foot ulceration?left foot Left fourth and fifth digit amputation site ulceration Peripheral arterial occlusive disease History of Wound: Patient had intervention done by Dr. Nicholson on 06/12/2020. Patient saw Dr. Tenorio June 26, 2020 and was started on 100mg gabapentin TID. She has noticed some improvement in her pain. Patient had further intervention with Dr. Nicholson on October 11, 2020. Patient relates having to be transferred to [facility] for this. 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 Amputation of 4th digit with debridement of 1st and 5th digit ulcerations was performed 07/08/20. 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 Patient underwent left fifth digit amputation with attempted delayed closure of fourth digit amputation site ulceration and with application of amnio fix grafting to all sites by Dr. López on 01/03/2021. The attempt for delayed primary closure of the previous fourth digit amputation site ulceration was not successful and ulceration here remains. Cultures at this time are also positive for Pseudomonas. 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 Cultures from 02/05/2021 were also positive for Pseudomonas. Patient has had multiple rounds of antibiotics and consultation with infectious disease over this infection. Patient is noted to have return of vascular symptom complaints especially to left lower extremity. She has appointment with Dr. iNcholson for reassessment with the understanding she might need possible further intervention. Patient continues care at the wound care center for remaining left foot wounds. Patient is noted to have been approved for [employer] but was not fully covered and would not be able to cover the remaining financial expense. Patient has had other modalities of treatment to include HBO therapy. She did had a revascularization procedure with Dr. Nicholson on ?18. She is doing well and follow-up in 6 months. She is also scheduled to undergo hyperbaric oxygen therapy treatment today. She denies fever, chill, nausea, vomiting. She reports minimal foot pain. She denies odor. Progress of Wound: Progress: Today is the 10th treatment of hyperbaric oxygen therapy. The patient is scheduled for 20 treatments total. Tolerance of hyperbaric oxygen therapy: Hyperbaric oxygen treatment was provided as per the facility's protocol at 2.0 CARLTON in 100% oxygen for 90 minutes without air breaks. The patient tolerated hyperbaric oxygen well, without complications or complaints. Upon emergence of the hyperbaric chamber, the patient's vital signs remained stable. She was discharged in good condition. Pre and post treatment blood glucose measurements are documented elsewhere. Objective Data Objective Data Vital Signs: Vital Signs Temp Pulse Resp BP 96.7 F L 57 L 16 147/52 H 05/14/21 08:53 05/14/21 08:53 05/14/21 08:53 05/14/21 08:53 Weight: 328 lb 7.82 oz Body Mass Index (BMI) 23.5 Lab / Micro Data Labs: Laboratory Results - last 24 hr 05/14/21 07:53: POC Glucose 194 H 05/14/21 10:16: POC Glucose 100 Exam Physical Exam Const alert, oriented x3, no apparent distress and well nourished General Appearance: cooperative and well developed HEENT normocephalic, EAC's normal and TM's normal bilaterally Head and Scalp: atraumatic Eyes PERRL and EOMs intact bilaterally Neck supple and no JVD Resp normal respiratory effort and no use of accessory muscles Effort and Inspection: able to speak in complete sentences Psych affect normal Appearance: grossly normal and well kempt Assessment/Plan Assessment/Plan (1) Osteomyelitis of left foot: CODE(S): M86.9 - Osteomyelitis, unspecified QUALIFIERS: Osteomyelitis type: unspecified type Qualified Code(s): M86.9 - Osteomyelitis, unspecified (2) Gangrene of left foot: CODE(S): I96 - Gangrene, not elsewhere classified (3) Type 2 diabetes mellitus with diabetic polyneuropathy: CODE(S): E11.42 - Type 2 diabetes mellitus with diabetic polyneuropathy QUALIFIERS: Diabetes mellitus detention insulin use: without long wall shear operator use Qualified Code(s): E11.42 - Type 2 diabetes mellitus with diabetic polyneuropathy (4) Ulcer of left foot with bone involvement without evidence of necrosis: CODE(S): L97.526 - 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 without evidence of necrosis (5) Osteomyelitis: CODE(S): M86.9 - Osteomyelitis, unspecified QUALIFIERS: Osteomyelitis type: subacute Osteomyelitis location: foot Laterality: left Qualified Code(s): M86.272 - Subacute osteomyelitis, left ankle and foot (6) Non-pressure chronic ulcer of other part of left foot with necrosis of bone: CODE(S): L97.524 - Non-pressure chronic ulcer of other part of left foot with necrosis of bone (7) Peripheral arterial occlusive disease: CODE(S): I77.9 - Disorder of arteries and arterioles, unspecified (8) PAD (peripheral artery disease): CODE(S): I73.9 - Peripheral vascular disease, unspecified (9) Essential hypertension: CODE(S): I10 - Essential (primary) hypertension (10) Presence of stent in coronary artery: CODE(S): Z95.5 - Presence of coronary angioplasty implant and graft (11) Type 2 diabetes mellitus: CODE(S): E11.9 - Type 2 diabetes mellitus without complications QUALIFIERS: Diabetes mellitus long wall shear operator insulin use: unspecified detention insulin use status Diabetes mellitus complication status: with circulatory complication Diabetes mellitus complication detail: with peripheral angiopathy with gangrene Qualified Code(s): E11.52 - Type 2 diabetes mellitus with diabetic peripheral angiopathy with gangrene (12) Delayed wound healing: CODE(S): T14.8XXD - Other injury of unspecified body region, subsequent encounter (13) Open wound of left foot: CODE(S): S91.302A - Unspecified open wound, left foot, initial encounter QUALIFIERS: Encounter type: subsequent encounter Qualified Code(s): S91.302D - Unspecified open wound, left foot, subsequent encounter (14) Foot pain, left: CODE(S): M79.672 - Pain in left foot
[2021-05-15 08:00] LABS: Bedside Glucose 264 mg/dL (70-110)
[2021-05-15 08:20] LABS: Bedside Glucose 210 mg/dL (70-110)
[2021-05-15 08:58] VITALS: BP 153/64; BP 176/63; PULSE 60; PULSE 72; RESP 16; TEMP 36.3
[2021-05-15 10:26] LABS: Bedside Glucose 113 mg/dL (70-110)
--- NOTE | 2021-05-15 12:03 | HBO.PN.PCM_ITS ---
History of Present Illness Date of Service: 05/15/21 Chief Complaint: Diabetic foot ulceration?left foot Left fourth and fifth digit amputation site ulceration Peripheral arterial occlusive disease History of Wound: Patient had intervention done by Dr. Nicholson on 06/12/2020. Patient saw Dr. Tenorio June 26, 2020 and was started on 100mg gabapentin TID. She has noticed some improvement in her pain. Patient had further intervention with Dr. Nicholson on October 11, 2020. Patient relates having to be transferred to [facility] for this. 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 Amputation of 4th digit with debridement of 1st and 5th digit ulcerations was performed 07/08/20. 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 Patient underwent left fifth digit amputation with attempted delayed closure of fourth digit amputation site ulceration and with application of amnio fix grafting to all sites by Dr. López on 01/03/2021. The attempt for delayed primary closure of the previous fourth digit amputation site ulceration was not successful and ulceration here remains. Cultures at this time are also positive for Pseudomonas. 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 Cultures from 02/05/2021 were also positive for Pseudomonas. Patient has had multiple rounds of antibiotics and consultation with infectious disease over this infection. Patient is noted to have return of vascular symptom complaints especially to left lower extremity. She has appointment with Dr. Nicholson for reassessment with the understanding she might need possible further intervention. Patient continues care at the wound care center for remaining left foot wounds. Patient is noted to have been approved for [employer] but was not fully covered and would not be able to cover the remaining financial expense. Patient has had other modalities of treatment to include HBO therapy. She did had a revascularization procedure with Dr. Nicholson on ?18. She is doing well and follow-up in 6 months. She is also scheduled to undergo hyperbaric oxygen therapy treatment today. She denies fever, chill, nausea, vomiting. She reports minimal foot pain. She denies odor. Progress of Wound: Progress: Today is the 11 treatment of hyperbaric oxygen therapy. The patient is scheduled for 20 treatments total. Tolerance of hyperbaric oxygen therapy: Hyperbaric oxygen treatment was provided as per the facility's protocol at 2.0 [place] in 100% oxygen for 90 minutes without air breaks. The patient tolerated hyperbaric oxygen well, without complications or complaints. Upon emergence of the hyperbaric chamber, the patient's vital signs remained stable. She was discharged in good condition. Pre and post treatment blood glucose measurements are documented elsewhere. Subjective Subjective No concerns Objective Data Objective Data Tolerated HBO treatment well we will follow-up in 1 day Vital Signs: Vital Signs Temp Pulse Resp BP 97.3 F L 72 16 176/63 H 05/15/21 08:58 05/15/21 08:58 05/15/21 08:58 05/15/21 08:58 Weight: 328 lb 7.82 oz Body Mass Index (BMI) 23.5 Lab / Micro Data Labs: Laboratory Results - last 24 hr 05/15/21 07:54: POC Glucose 264 H 05/15/21 08:14: POC Glucose 210 H 05/15/21 10:21: POC Glucose 113 H Exam Physical Exam Const alert, oriented x3, no apparent distress and well nourished General Appearance: cooperative and well developed HEENT normocephalic, EAC's normal and TM's normal bilaterally Head and Scalp: atraumatic Eyes PERRL and EOMs intact bilaterally Neck supple and no JVD Resp normal respiratory effort and no use of accessory muscles Effort and Inspection: able to speak in complete sentences Psych affect normal Appearance: grossly normal and well kempt Assessment/Plan Assessment/Plan (1) Type 2 diabetes mellitus with diabetic polyneuropathy: CODE(S): E11.42 - Type 2 diabetes mellitus with diabetic polyneuropathy QUALIFIERS: Diabetes mellitus senior care insulin use: without long term acute care registered nurse use Qualified Code(s): E11.42 - Type 2 diabetes mellitus with diabetic polyneuropathy (2) Ulcer of left foot with bone involvement without evidence of necrosis: CODE(S): L97.526 - 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 without evidence of necrosis (3) Osteomyelitis: CODE(S): M86.9 - Osteomyelitis, unspecified QUALIFIERS: Osteomyelitis type: subacute Osteomyelitis location: foot Laterality: left Qualified Code(s): M86.272 - Subacute osteomyelitis, left ankle and foot (4) Non-pressure chronic ulcer of other part of left foot with necrosis of bone: CODE(S): L97.524 - Non-pressure chronic ulcer of other part of left foot with necrosis of bone (5) Type 2 diabetes mellitus: CODE(S): E11.9 - Type 2 diabetes mellitus without complications QUALIFIERS: Diabetes mellitus long term acute care registered nurse insulin use: unspecified long term acute care registered nurse insulin use status Diabetes mellitus complication status: with circulatory complication Diabetes mellitus complication detail: with peripheral angiopathy with gangrene Qualified Code(s): E11.52 - Type 2 diabetes mellitus with diabetic peripheral angiopathy with gangrene (6) PAD (peripheral artery disease): CODE(S): I73.9 - Peripheral vascular disease, unspecified (7) Non-pressure chronic ulcer of other part of left foot with fat layer exposed: CODE(S): L97.522 - Non-pressure chronic ulcer of other part of left foot with fat layer exposed (8) 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
[2021-05-16 07:56] LABS: Bedside Glucose 232 mg/dL (70-110)
[2021-05-16 08:47] VITALS: BP 152/53; BP 181/81; PULSE 58; PULSE 64; RESP 17; TEMP 35.7
[2021-05-16 10:31] LABS: Bedside Glucose 117 mg/dL (70-110)
--- NOTE | 2021-05-16 14:07 | PCM.HBO.PN ---
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 Nicholson on 06/12/2020. Patient saw Dr. Tenorio June 26, 2020 and was started on 100mg gabapentin TID. She has noticed some improvement in her pain. Patient had further intervention with Dr. Nicholson on October 11, 2020. Patient relates having to be transferred to [facility] for this. 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 Amputation of 4th digit with debridement of 1st and 5th digit ulcerations was performed 07/08/20. 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 Patient underwent left fifth digit amputation with attempted delayed closure of fourth digit amputation site ulceration and with application of amnio fix grafting to all sites by Dr. López on 01/03/2021. The attempt for delayed primary closure of the previous fourth digit amputation site ulceration was not successful and ulceration here remains. Cultures at this time are also positive for Pseudomonas. 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 Cultures from 02/05/2021 were also positive for Pseudomonas. Patient has had multiple rounds of antibiotics and consultation with infectious disease over this infection. Patient is noted to have return of vascular symptom complaints especially to left lower extremity. She has appointment with Dr. Nicholson for reassessment with the understanding she might need possible further intervention. Patient continues care at the wound care center for remaining left foot wounds. Patient is noted to have been approved for [employer] but was not fully covered and would not be able to cover the remaining financial expense. Patient has had other modalities of treatment to include HBO therapy. She did had a revascularization procedure with Dr. Nicholson on ?18. She is doing well and follow-up in 6 months. She is also scheduled to undergo hyperbaric oxygen therapy treatment today. She denies fever, chill, nausea, vomiting. She reports minimal foot pain. She denies odor. Progress of Wound: Progress: Today is the 12th treatment of hyperbaric oxygen therapy. The patient is scheduled for 20 treatments total. Tolerance of hyperbaric oxygen therapy: Hyperbaric oxygen treatment was provided as per the facility's protocol at 2.0 [place] in 100% oxygen for 90 minutes without air breaks. The patient tolerated hyperbaric oxygen well, without complications or complaints. Upon emergence of the hyperbaric chamber, the patient's vital signs remained stable. She was discharged in good condition. Pre and post treatment blood glucose measurements are documented elsewhere. Objective Data Objective Data Vital Signs: Vital Signs Temp Pulse Resp BP 96.2 F L 64 17 152/53 H 05/16/21 08:47 05/16/21 08:47 05/16/21 08:47 05/16/21 08:47 Weight: 328 lb 7.82 oz Body Mass Index (BMI) 23.5 Lab / Micro Data Labs: Laboratory Results - last 24 hr 05/16/21 07:53: POC Glucose 232 H 05/16/21 10:25: POC Glucose 117 H Exam Physical Exam Const alert, oriented x3, no apparent distress and well nourished General Appearance: cooperative and well developed HEENT normocephalic, EAC's normal and TM's normal bilaterally Head and Scalp: atraumatic Eyes PERRL and EOMs intact bilaterally Neck supple and no JVD Resp normal respiratory effort and no use of accessory muscles Effort and Inspection: able to speak in complete sentences Psych affect normal Appearance: grossly normal and well kempt Assessment/Plan Assessment/Plan (1) Type 2 diabetes mellitus with diabetic polyneuropathy: CODE(S): E11.42 - Type 2 diabetes mellitus with diabetic polyneuropathy QUALIFIERS: Diabetes mellitus ocean transportation intermediary insulin use: without shelter use Qualified Code(s): E11.42 - Type 2 diabetes mellitus with diabetic polyneuropathy (2) Ulcer of left foot with bone involvement without evidence of necrosis: CODE(S): L97.526 - 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 without evidence of necrosis (3) Osteomyelitis: CODE(S): M86.9 - Osteomyelitis, unspecified QUALIFIERS: Osteomyelitis type: subacute Osteomyelitis location: foot Laterality: left Qualified Code(s): M86.272 - Subacute osteomyelitis, left ankle and foot PLAN: The patient appears to be tolerating hyperbaric oxygen therapy well, which will be continued as per her medical treatment plan. (4) Non-pressure chronic ulcer of other part of left foot with necrosis of bone: CODE(S): L97.524 - Non-pressure chronic ulcer of other part of left foot with necrosis of bone (5) Type 2 diabetes mellitus: CODE(S): E11.9 - Type 2 diabetes mellitus without complications QUALIFIERS: Diabetes mellitus ocean transportation intermediary insulin use: unspecified ocean transportation intermediary insulin use status Diabetes mellitus complication status: with circulatory complication Diabetes mellitus complication detail: with peripheral angiopathy with gangrene Qualified Code(s): E11.52 - Type 2 diabetes mellitus with diabetic peripheral angiopathy with gangrene (6) PAD (peripheral artery disease): CODE(S): I73.9 - Peripheral vascular disease, unspecified (7) Non-pressure chronic ulcer of other part of left foot with fat layer exposed: CODE(S): L97.522 - Non-pressure chronic ulcer of other part of left foot with fat layer exposed (8) 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
[2021-05-20 08:35] LABS: Bedside Glucose 255 mg/dL (70-110)
[2021-05-20 08:35] LABS: Bedside Glucose 298 mg/dL (70-110)
[2021-05-20 09:04] VITALS: RESP 20; TEMP 36.4; BMI 23.5
--- NOTE | 2021-05-20 09:07 | WC ---
Pt arrived for HBO, BS tested immediately upon arrival, pt is 298. Kenyatta Munroe NP covering HBO this morning was notifed. Pt rechecked in 15 min with results of 255. Pt unable to dive, sent home per instructions from Camelia Munroe NP. Pt.voices no complaints or concerns, will return tomorrow morning.
[2021-05-21 07:55] LABS: Bedside Glucose 176 mg/dL (70-110)
[2021-05-21 09:20] VITALS: BP 165/61; BP 178/65; PULSE 60; PULSE 61; RESP 17; RESP 18; TEMP 36.1
[2021-05-21 10:10] LABS: Bedside Glucose 112 mg/dL (70-110)
--- NOTE | 2021-05-21 13:59 | PCM.HBO.PN ---
History of Present Illness Date of Service: 05/21/21 Chief Complaint: Diabetic foot ulceration?left foot Left fourth and fifth digit amputation site ulceration Peripheral arterial occlusive disease History of Wound: Patient had intervention done by Dr. Nicholson on 06/12/2020. Patient saw Dr. Tenorio June 26, 2020 and was started on 100mg gabapentin TID. She has noticed some improvement in her pain. Patient had further intervention with Dr. Nicholson on October 11, 2020. Patient relates having to be transferred to [facility] for this. 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 Amputation of 4th digit with debridement of 1st and 5th digit ulcerations was performed 07/08/20. 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 Patient underwent left fifth digit amputation with attempted delayed closure of fourth digit amputation site ulceration and with application of amnio fix grafting to all sites by Dr. López on 01/03/2021. The attempt for delayed primary closure of the previous fourth digit amputation site ulceration was not successful and ulceration here remains. Cultures at this time are also positive for Pseudomonas. 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 Cultures from 02/05/2021 were also positive for Pseudomonas. Patient has had multiple rounds of antibiotics and consultation with infectious disease over this infection. Patient is noted to have return of vascular symptom complaints especially to left lower extremity. She has appointment with Dr. Nicholson for reassessment with the understanding she might need possible further intervention. Patient continues care at the wound care center for remaining left foot wounds. Patient is noted to have been approved for [employer] but was not fully covered and would not be able to cover the remaining financial expense. Patient has had other modalities of treatment to include HBO therapy. She did had a revascularization procedure with Dr. Nicholson on ?18. She is doing well and follow-up in 6 months. She is also scheduled to undergo hyperbaric oxygen therapy treatment today. She denies fever, chill, nausea, vomiting. She reports minimal foot pain. She denies odor. Progress of Wound: Progress: Today is the 13th treatment of hyperbaric oxygen therapy. The patient is scheduled for 20 treatments total. Tolerance of hyperbaric oxygen therapy: Hyperbaric oxygen treatment was provided as per the facility's protocol at 2.0 CARLTON in 100% oxygen for 90 minutes without air breaks. The patient tolerated hyperbaric oxygen well, without complications or complaints. Upon emergence of the hyperbaric chamber, the patient's vital signs remained stable. She was discharged in good condition. Pre and post treatment blood glucose measurements are documented elsewhere. Objective Data Objective Data Vital Signs: Vital Signs Temp Pulse Resp BP 97.0 F L 60 17 178/65 H 05/21/21 09:20 05/21/21 09:20 05/21/21 09:20 05/21/21 09:20 Weight: 328 lb 7.82 oz Body Mass Index (BMI) 23.5 Lab / Micro Data Labs: Laboratory Results - last 24 hr 05/21/21 07:50: POC Glucose 176 H 05/21/21 10:06: POC Glucose 112 H Exam Physical Exam Const alert, oriented x3, no apparent distress and well nourished General Appearance: cooperative and well developed HEENT normocephalic and EAC's normal Head and Scalp: atraumatic Eyes PERRL and EOMs intact bilaterally Resp normal respiratory effort and no use of accessory muscles Effort and Inspection: able to speak in complete sentences Cardio no murmurs and no rub Psych affect normal Appearance: grossly normal and well kempt Nursing Assessment and Debridement Post-Debridement Measurements and Additional Note: Post-Debridement Measurements/Treatment - Nurse 1 - General Ulcer Assessment Start: 04/24/21 08:14 Freq: Status: Active Protocol: ESVIN Activity Type Activity Date Activity User E-Sign Co-Sign Detail Recorded Client Recorded Date Recorded By Document 05/20/21 09:04 DL [id number] 05/20/21 09:07 DL 05/20/21 09:04 - Today's Visit Information Type of service Other Type of service (Other) HBO Arrival Mode Ambulatory Transfer Assistance None Patient Identification Verified (Name & Yes ) Patient Requires Transmission-Based No Precautions Finger Stick Blood Sugar(mg/dl) (if 298 indicated): Blood Sugar Done During this Visit Height and Weight Body Mass Index (BMI) 23.5 BMI Classification Normal Vital Signs Temperature (97.8 F-99.1 F) 97.6 F L Temperature Source Temporal Respiratory Rate (12-18) 20 H Respiratory rate source Observation Comment SEE NOTE History Since Last Visit- (Skip if this is Patient's initial visit) Have you changed medications since your No last visit? Any new allergies or adverse reactions No Had a fall/change in ADL's that may No increase risk of falls Signs or symptoms of abuse and/or No neglect since last visit Have you been in the hospital since your No last visit? Has dressing in place as prescribed No Has compression in place as prescribed N/A Has offloadiing in place as prescribed N/A Experienced any changes in pain level or No management Pain Scale: 0-10 Numeric Is Patient Pain Free? Yes Assessment/Plan Assessment/Plan (1) Osteomyelitis of left foot: CODE(S): M86.9 - Osteomyelitis, unspecified QUALIFIERS: Osteomyelitis type: unspecified type Qualified Code(s): M86.9 - Osteomyelitis, unspecified (2) Bone infection of left foot: CODE(S): M86.9 - Osteomyelitis, unspecified (3) Osteomyelitis: CODE(S): M86.9 - Osteomyelitis, unspecified QUALIFIERS: Osteomyelitis type: subacute Osteomyelitis location: foot Laterality: left Qualified Code(s): M86.272 - Subacute osteomyelitis, left ankle and foot (4) Gangrene of left foot: CODE(S): I96 - Gangrene, not elsewhere classified (5) Type 2 diabetes mellitus with diabetic polyneuropathy: CODE(S): E11.42 - Type 2 diabetes mellitus with diabetic polyneuropathy QUALIFIERS: Diabetes mellitus fpc insulin use: without terminal press operator use Qualified Code(s): E11.42 - Type 2 diabetes mellitus with diabetic polyneuropathy (6) Ulcer of left foot with bone involvement without evidence of necrosis: CODE(S): L97.526 - 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 without evidence of necrosis (7) Non-pressure chronic ulcer of other part of left foot with necrosis of bone: CODE(S): L97.524 - Non-pressure chronic ulcer of other part of left foot with necrosis of bone (8) 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 (9) Delayed wound healing: CODE(S): T14.8XXD - Other injury of unspecified body region, subsequent encounter (10) Type 2 diabetes mellitus: CODE(S): E11.9 - Type 2 diabetes mellitus without complications QUALIFIERS: Diabetes mellitus terminal press operator insulin use: unspecified terminal press operator insulin use status Diabetes mellitus complication status: with circulatory complication Diabetes mellitus complication detail: with peripheral angiopathy with gangrene Qualified Code(s): E11.52 - Type 2 diabetes mellitus with diabetic peripheral angiopathy with gangrene (11) PAD (peripheral artery disease): CODE(S): I73.9 - Peripheral vascular disease, unspecified PLAN: The patient appears to be tolerating hyperbaric oxygen therapy well, which will be continued as per the patient's medical plan.
[2021-05-22 07:50] LABS: Bedside Glucose 156 mg/dL (70-110)
[2021-05-22 08:59] VITALS: BP 176/74; BP 180/60; PULSE 59; PULSE 63; RESP 16; TEMP 36.4
[2021-05-22 10:11] LABS: Bedside Glucose 85 mg/dL (70-110)
--- NOTE | 2021-05-22 12:17 | PCM.HBO.PN ---
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 Nicholson on 06/12/2020. Patient saw Dr. Tenorio June 26, 2020 and was started on 100mg gabapentin TID. She has noticed some improvement in her pain. Patient had further intervention with Dr. Nicholson on October 11, 2020. Patient relates having to be transferred to [facility] for this. 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 Amputation of 4th digit with debridement of 1st and 5th digit ulcerations was performed 07/08/20. 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 Patient underwent left fifth digit amputation with attempted delayed closure of fourth digit amputation site ulceration and with application of amnio fix grafting to all sites by Dr. López on 01/03/2021. The attempt for delayed primary closure of the previous fourth digit amputation site ulceration was not successful and ulceration here remains. Cultures at this time are also positive for Pseudomonas. 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 Cultures from 02/05/2021 were also positive for Pseudomonas. Patient has had multiple rounds of antibiotics and consultation with infectious disease over this infection. Patient is noted to have return of vascular symptom complaints especially to left lower extremity. She has appointment with Dr. Nicholson for reassessment with the understanding she might need possible further intervention. Patient continues care at the wound care center for remaining left foot wounds. Patient is noted to have been approved for [employer] but was not fully covered and would not be able to cover the remaining financial expense. Patient has had other modalities of treatment to include HBO therapy. She did had a revascularization procedure with Dr. Nicholson on ?18. She is doing well and follow-up in 6 months. She is also scheduled to undergo hyperbaric oxygen therapy treatment today. She denies fever, chill, nausea, vomiting. She reports minimal foot pain. She denies odor. Progress of Wound: Patient received the #14 treatment through HBO of her 20 treatment plan. She tolerated well doing well Subjective Subjective No concerns Objective Data Objective Data Patient is to return for further treatments Vital Signs: Vital Signs Temp Pulse Resp BP 97.5 F L 63 16 176/74 H 05/22/21 08:59 05/22/21 08:59 05/22/21 08:59 05/22/21 08:59 Weight: 328 lb 7.82 oz Body Mass Index (BMI) 23.5 Lab / Micro Data Labs: Laboratory Results - last 24 hr 05/22/21 07:48: POC Glucose 156 H 05/22/21 10:04: POC Glucose 85 Exam Physical Exam Const oriented x3 General Appearance: cooperative Exam Limitations: no limitations HEENT normocephalic Head and Scalp: normal to inspection Face and Sinus: normal facial exam Nose: external nose normal General Ear: hearing grossly impaired External Ear: external ears normal Mouth: oral and palatal mucosa normal Eyes PERRL General Eye: normal appearance of both eyes Neck full ROM General: normal visual inspection Resp normal respiratory effort Effort and Inspection: able to speak in complete sentences Auscultation: clear to auscultation bilaterally Cardio regular rate and regular rhythm Palpation: normal PMI Rate: regular rate Rhythm: regular rhythm GI Auscultation: normoactive bowel sounds Palpation: soft and no hepatosplenomegaly external exam normal Back/Spine Cervical Spine: cervical ROM normal Thoracic Spine / Upper Back: normal to inspection Lumbar Spine / Lower Back: normal to inspection Extremity normal to inspection General Extremity: normal exam except as noted Skin no rashes or lesions noted Neuro oriented x3 Psych Appearance: grossly normal Speech: normal speech Thought Content: normal thought content Judgement: judgement good Nursing Assessment and Debridement Post-Debridement Measurements and Additional Note: Post-Debridement Measurements/Treatment - Nurse 1 - General Ulcer Assessment Start: 04/24/21 08:14 Freq: Status: Active Protocol: SOPHIA.NORMA Activity Type Activity Date Activity User E-Sign Co-Sign Detail Recorded Client Recorded Date Recorded By Document 05/20/21 09:04 SHEILA [id number] 05/20/21 09:07 SHEILA 05/20/21 09:04 - Today's Visit Information Type of service Other Type of service (Other) HBO Arrival Mode Ambulatory Transfer Assistance None Patient Identification Verified (Name & Yes ) Patient Requires Transmission-Based No Precautions Finger Stick Blood Sugar(mg/dl) (if 298 indicated): Blood Sugar Done During this Visit Height and Weight Body Mass Index (BMI) 23.5 BMI Classification Normal Vital Signs Temperature (97.8 F-99.1 F) 97.6 F L Temperature Source Temporal Respiratory Rate (12-18 breaths/min) 20 H Respiratory rate source Observation Comment SEE NOTE History Since Last Visit- (Skip if this is Patient's initial visit) Have you changed medications since your No last visit? Any new allergies or adverse reactions No Had a fall/change in ADL's that may No increase risk of falls Signs or symptoms of abuse and/or No neglect since last visit Have you been in the hospital since your No last visit? Has dressing in place as prescribed No Has compression in place as prescribed N/A Has offloadiing in place as prescribed N/A Experienced any changes in pain level or No management Pain Scale: 0-10 Numeric Is Patient Pain Free? Yes Assessment/Plan Assessment/Plan (1) Osteomyelitis of left foot: CODE(S): M86.9 - Osteomyelitis, unspecified QUALIFIERS: Osteomyelitis type: unspecified type Qualified Code(s): M86.9 - Osteomyelitis, unspecified PLAN: Patient is to return for further treatments and continue HBO treatment (2) Bone infection of left foot: CODE(S): M86.9 - Osteomyelitis, unspecified (3) Osteomyelitis: CODE(S): M86.9 - Osteomyelitis, unspecified QUALIFIERS: Osteomyelitis type: subacute Osteomyelitis location: foot Laterality: left Qualified Code(s): M86.272 - Subacute osteomyelitis, left ankle and foot (4) Gangrene of left foot: CODE(S): I96 - Gangrene, not elsewhere classified (5) Type 2 diabetes mellitus with diabetic polyneuropathy: CODE(S): E11.42 - Type 2 diabetes mellitus with diabetic polyneuropathy QUALIFIERS: Diabetes mellitus nurse liaison insulin use: without nurse liaison use Qualified Code(s): E11.42 - Type 2 diabetes mellitus with diabetic polyneuropathy (6) Ulcer of left foot with bone involvement without evidence of necrosis: CODE(S): L97.526 - 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 without evidence of necrosis (7) Non-pressure chronic ulcer of other part of left foot with necrosis of bone: CODE(S): L97.524 - Non-pressure chronic ulcer of other part of left foot with necrosis of bone (8) 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 (9) Delayed wound healing: CODE(S): T14.8XXD - Other injury of unspecified body region, subsequent encounter (10) Type 2 diabetes mellitus: CODE(S): E11.9 - Type 2 diabetes mellitus without complications QUALIFIERS: Diabetes mellitus penitentiary insulin use: unspecified penitentiary insulin use status Diabetes mellitus complication status: with circulatory complication Diabetes mellitus complication detail: with peripheral angiopathy with gangrene Qualified Code(s): E11.52 - Type 2 diabetes mellitus with diabetic peripheral angiopathy with gangrene (11) PAD (peripheral artery disease): CODE(S): I73.9 - Peripheral vascular disease, unspecified
[2021-05-23 07:56] LABS: Bedside Glucose 155 mg/dL (70-110)
[2021-05-23 08:49] VITALS: BP 148/64; BP 169/44; PULSE 59; PULSE 62; RESP 16; RESP 17; TEMP 35.9
--- NOTE | 2021-05-23 08:59 | PCM.HBO.PN ---
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 Nicholson on 06/12/2020. Patient saw Dr. Tenoroi June 26, 2020 and was started on 100mg gabapentin TID. She has noticed some improvement in her pain. Patient had further intervention with Dr. Nicholson on October 11, 2020. Patient relates having to be transferred to [facility] for this. 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 Amputation of 4th digit with debridement of 1st and 5th digit ulcerations was performed 07/08/20. 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 Patient underwent left fifth digit amputation with attempted delayed closure of fourth digit amputation site ulceration and with application of amnio fix grafting to all sites by Dr. López on 01/03/2021. The attempt for delayed primary closure of the previous fourth digit amputation site ulceration was not successful and ulceration here remains. Cultures at this time are also positive for Pseudomonas. 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 Cultures from 02/05/2021 were also positive for Pseudomonas. Patient has had multiple rounds of antibiotics and consultation with infectious disease over this infection. Patient is noted to have return of vascular symptom complaints especially to left lower extremity. She has appointment with Dr. Nicholson for reassessment with the understanding she might need possible further intervention. Patient continues care at the wound care center for remaining left foot wounds. Patient is noted to have been approved for [employer] but was not fully covered and would not be able to cover the remaining financial expense. Patient has had other modalities of treatment to include HBO therapy. She did had a revascularization procedure with Dr. Nicholson on ?18. She is doing well and follow-up in 6 months. She is also scheduled to undergo hyperbaric oxygen therapy treatment today. She denies fever, chill, nausea, vomiting. She reports minimal foot pain. She denies odor. Progress of Wound: Patient completed 15th HBO treatment today which was tolerated well. The patient is scheduled for 20 treatments total. Tolerance of hyperbaric oxygen therapy: Hyperbaric oxygen treatment was provided as per the facility's protocol at 2.0 [place] in 100% oxygen for 90 minutes without air breaks. The patient tolerated hyperbaric oxygen well, without complications or complaints. Upon emergence of the hyperbaric chamber, the patient's vital signs remained stable. Subjective Subjective No concerns at this time. Objective Data Objective Data Vital Signs: Vital Signs Temp Pulse Resp BP 96.7 F L 62 17 148/64 H 05/23/21 08:49 05/23/21 08:49 05/23/21 08:49 05/23/21 08:49 Weight: 328 lb 7.82 oz Body Mass Index (BMI) 23.5 Lab / Micro Data Labs: Laboratory Results - last 24 hr 05/22/21 10:04: POC Glucose 85 05/23/21 07:49: POC Glucose 155 H Exam Physical Exam Const alert, oriented x3 and no apparent distress General Appearance: cooperative, comfortable and well kempt HEENT Head and Scalp: normal to inspection, normocephalic and atraumatic Face and Sinus: normal facial exam Nose: external nose normal Tympanic Membrane: TM's normal bilaterally Psych thought process normal, cooperative and affect normal Nursing Assessment and Debridement Post-Debridement Measurements and Additional Note: Post-Debridement Measurements/Treatment - Nurse 1 - General Ulcer Assessment Start: 04/24/21 08:14 Freq: Status: Active Protocol: ESVIN Activity Type Activity Date Activity User E-Sign Co-Sign Detail Recorded Client Recorded Date Recorded By Document 05/20/21 09:04 SHEILA [id number] 05/20/21 09:07 SHEILA 05/20/21 09:04 - Today's Visit Information Type of service Other Type of service (Other) HBO Arrival Mode Ambulatory Transfer Assistance None Patient Identification Verified (Name & Yes ) Patient Requires Transmission-Based No Precautions Finger Stick Blood Sugar(mg/dl) (if 298 indicated): Blood Sugar Done During this Visit Height and Weight Body Mass Index (BMI) 23.5 BMI Classification Normal Vital Signs Temperature (97.8 F-99.1 F) 97.6 F L Temperature Source Temporal Respiratory Rate (12-18) 20 H Respiratory rate source Observation Comment SEE NOTE History Since Last Visit- (Skip if this is Patient's initial visit) Have you changed medications since your No last visit? Any new allergies or adverse reactions No Had a fall/change in ADL's that may No increase risk of falls Signs or symptoms of abuse and/or No neglect since last visit Have you been in the hospital since your No last visit? Has dressing in place as prescribed No Has compression in place as prescribed N/A Has offloadiing in place as prescribed N/A Experienced any changes in pain level or No management Pain Scale: 0-10 Numeric Is Patient Pain Free? Yes Charges/Coding Wound Center CF Procedures HBO Supervision: [id number] Hyperbaric Oxygen; supervision Assessment/Plan Assessment/Plan (1) Osteomyelitis of left foot: CODE(S): M86.9 - Osteomyelitis, unspecified QUALIFIERS: Osteomyelitis type: unspecified type Qualified Code(s): M86.9 - Osteomyelitis, unspecified (2) Bone infection of left foot: CODE(S): M86.9 - Osteomyelitis, unspecified (3) Osteomyelitis: CODE(S): M86.9 - Osteomyelitis, unspecified QUALIFIERS: Laterality: left Osteomyelitis location: foot Osteomyelitis type: subacute Qualified Code(s): M86.272 - Subacute osteomyelitis, left ankle and foot (4) Gangrene of left foot: CODE(S): I96 - Gangrene, not elsewhere classified (5) Type 2 diabetes mellitus with diabetic polyneuropathy: CODE(S): E11.42 - Type 2 diabetes mellitus with diabetic polyneuropathy QUALIFIERS: Diabetes mellitus salvage determiner insulin use: without salvage determiner use Qualified Code(s): E11.42 - Type 2 diabetes mellitus with diabetic polyneuropathy (6) Ulcer of left foot with bone involvement without evidence of necrosis: CODE(S): L97.526 - 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 without evidence of necrosis (7) Non-pressure chronic ulcer of other part of left foot with necrosis of bone: CODE(S): L97.524 - Non-pressure chronic ulcer of other part of left foot with necrosis of bone (8) 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 (9) Delayed wound healing: CODE(S): T14.8XXD - Other injury of unspecified body region, subsequent encounter (10) Type 2 diabetes mellitus: CODE(S): E11.9 - Type 2 diabetes mellitus without complications QUALIFIERS: Diabetes mellitus complication detail: with peripheral angiopathy with gangrene Diabetes mellitus complication status: with circulatory complication Diabetes mellitus salvage determiner insulin use: unspecified shelter insulin use status Qualified Code(s): E11.52 - Type 2 diabetes mellitus with diabetic peripheral angiopathy with gangrene (11) PAD (peripheral artery disease): CODE(S): I73.9 - Peripheral vascular disease, unspecified PLAN: The patient is tolerating hyperbaric oxygen therapy well which will be continued as per the patient's medical plan
[2021-05-23 10:20] LABS: Bedside Glucose 121 mg/dL (70-110)
== END 2021-05-24 23:59 ==
LOC: WC 08:00
PROVIDERS: PCP Family Medicine; Referring Provider Podiatrist; Visit Provider Podiatrist
DX: E11.621 Type 2 diabetes mellitus with foot ulcer (principal); E11.51 Type 2 diabetes mellitus with diabetic peripheral angiopathy without gangrene; L97.524 Non-pressure chronic ulcer of other part of left foot with necrosis of bone; L97.526 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 without evidence of necrosis; L97.522 Non-pressure chronic ulcer of other part of left foot with fat layer exposed; M86.272 Subacute osteomyelitis, left ankle and foot; I73.9 Peripheral vascular disease, unspecified; T14.8XXD Other injury of unspecified body region, subsequent encounter; M79.606 Pain in leg, unspecified; E11.42 Type 2 diabetes mellitus with diabetic polyneuropathy; R23.4 Changes in skin texture; Z87.891 Personal history of nicotine dependence; S98.139A Complete traumatic amputation of one unspecified lesser toe, initial encounter; Z71.3 Dietary counseling and surveillance; Z79.4 Long term (current) use of insulin; Z95.5 Presence of coronary angioplasty implant and graft; M62.50 Muscle wasting and atrophy, not elsewhere classified, unspecified site; B96.5 Pseudomonas (aeruginosa) (mallei) (pseudomallei) as the cause of diseases classified elsewhere
CPT/HCPCS: 11042; 69210; 82962; 99183; 99212; G0277; G0463

== ENCOUNTER 2021-06-05 08:00 | Outpatient (RCR) | payer MEDICARE, SELFPAY ==
[2021-05-25 00:24] VITALS: BP 169/44; PULSE 59; RESP 16; TEMP 35.9; BMI 23.5
[2021-05-27 08:00] LABS: Bedside Glucose 193 mg/dL (70-110)
--- NOTE | 2021-05-27 08:27 | PCM.HBO.PN ---
History of Present Illness Date of Service: 05/27/21 Chief Complaint: Diabetic foot ulceration?left foot Left fourth and fifth digit amputation site ulceration Peripheral arterial occlusive disease History of Wound: Patient had intervention done by Dr. Nicholson on 06/12/2020. Patient saw Dr. Tenorio June 26, 2020 and was started on 100mg gabapentin TID. She has noticed some improvement in her pain. Patient had further intervention with Dr. Nicholson on October 11, 2020. Patient relates having to be transferred to [facility] for this. 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 Amputation of 4th digit with debridement of 1st and 5th digit ulcerations was performed 07/08/20. 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 Patient underwent left fifth digit amputation with attempted delayed closure of fourth digit amputation site ulceration and with application of amnio fix grafting to all sites by Dr. López on 01/03/2021. The attempt for delayed primary closure of the previous fourth digit amputation site ulceration was not successful and ulceration here remains. Cultures at this time are also positive for Pseudomonas. 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 Cultures from 02/05/2021 were also positive for Pseudomonas. Patient has had multiple rounds of antibiotics and consultation with infectious disease over this infection. Patient is noted to have return of vascular symptom complaints especially to left lower extremity. She has appointment with Dr. Nicholson for reassessment with the understanding she might need possible further intervention. Patient continues care at the wound care center for remaining left foot wounds. Patient is noted to have been approved for [employer] but was not fully covered and would not be able to cover the remaining financial expense. Patient has had other modalities of treatment to include HBO therapy. She did had a revascularization procedure with Dr. Nicholson on ?18. She is doing well and follow-up in 6 months. She is also scheduled to undergo hyperbaric oxygen therapy treatment today. Subjective Subjective Today's hyperbaric oxygen therapy session was the 16th, of a planned 20 such sessions. Hyperbaric oxygen therapy was administered as per the facility's protocol. Hyperbaric oxygen therapy was administered at 2 kaylan for 90 minutes with no air breaks. Patient tolerated hyperbaric oxygen therapy well, without complaints or complications. Upon emergence from the hyperbaric chamber, the patient's vital signs remained stable. She was discharged in good condition. Pre and post treatment blood glucose measurements are documented elsewhere. Objective Data Objective Data Vital Signs: Vital Signs Temp Pulse Resp BP 96.7 F L 59 L 16 169/44 H 05/25/21 00:24 05/25/21 00:24 05/25/21 00:24 05/25/21 00:24 Weight: 328 lb 7.82 oz Body Mass Index (BMI) 23.5 Lab / Micro Data Labs: Laboratory Results - last 24 hr 05/27/21 07:56: POC Glucose 193 H Exam Physical Exam Const alert, oriented x3, no apparent distress and well nourished General Appearance: cooperative and well developed HEENT normocephalic, EAC's normal and TM's normal bilaterally Head and Scalp: atraumatic Eyes PERRL and EOMs intact bilaterally Neck supple and no JVD Resp normal respiratory effort and no use of accessory muscles Effort and Inspection: able to speak in complete sentences Psych affect normal Appearance: grossly normal and well kempt Assessment/Plan Assessment/Plan (1) Osteomyelitis of left foot: CODE(S): M86.9 - Osteomyelitis, unspecified QUALIFIERS: Osteomyelitis type: unspecified type Qualified Code(s): M86.9 - Osteomyelitis, unspecified PLAN: The patient is tolerating hyperbaric oxygen therapy well which will be continued as per the patient's medical plan. (2) Bone infection of left foot: CODE(S): M86.9 - Osteomyelitis, unspecified (3) Osteomyelitis: CODE(S): M86.9 - Osteomyelitis, unspecified QUALIFIERS: Laterality: left Osteomyelitis location: foot Osteomyelitis type: subacute Qualified Code(s): M86.272 - Subacute osteomyelitis, left ankle and foot (4) Gangrene of left foot: CODE(S): I96 - Gangrene, not elsewhere classified (5) Type 2 diabetes mellitus with diabetic polyneuropathy: CODE(S): E11.42 - Type 2 diabetes mellitus with diabetic polyneuropathy QUALIFIERS: Diabetes mellitus prison insulin use: without termite treater use Qualified Code(s): E11.42 - Type 2 diabetes mellitus with diabetic polyneuropathy (6) Ulcer of left foot with bone involvement without evidence of necrosis: CODE(S): L97.526 - 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 without evidence of necrosis (7) Non-pressure chronic ulcer of other part of left foot with necrosis of bone: CODE(S): L97.524 - Non-pressure chronic ulcer of other part of left foot with necrosis of bone (8) 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 (9) Delayed wound healing: CODE(S): T14.8XXD - Other injury of unspecified body region, subsequent encounter (10) Type 2 diabetes mellitus: CODE(S): E11.9 - Type 2 diabetes mellitus without complications QUALIFIERS: Diabetes mellitus complication detail: with peripheral angiopathy with gangrene Diabetes mellitus complication status: with circulatory complication Diabetes mellitus prison insulin use: unspecified prison insulin use status Qualified Code(s): E11.52 - Type 2 diabetes mellitus with diabetic peripheral angiopathy with gangrene (11) PAD (peripheral artery disease): CODE(S): I73.9 - Peripheral vascular disease, unspecified
[2021-05-27 08:28] VITALS: BP 164/34; BP 183/62; PULSE 59; PULSE 60; RESP 16; TEMP 36.6
[2021-05-27 10:26] LABS: Bedside Glucose 89 mg/dL (70-110)
[2021-05-28 07:55] LABS: Bedside Glucose 147 mg/dL (70-110)
[2021-05-28 08:36] VITALS: BP 173/70; BP 189/58; PULSE 59; PULSE 63; RESP 16; RESP 18; TEMP 36.2
[2021-05-28 10:21] LABS: Bedside Glucose 101 mg/dL (70-110)
--- NOTE | 2021-05-28 14:43 | HBO.PN.PCM_ITS ---
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 Nicholson on 06/12/2020. Patient saw Dr. Tenorio June 26, 2020 and was started on 100mg gabapentin TID. She has noticed some improvement in her pain. Patient had further intervention with Dr. Nicholson on October 11, 2020. Patient relates having to be transferred to [facility] for this. 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 Amputation of 4th digit with debridement of 1st and 5th digit ulcerations was performed 07/08/20. 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 Patient underwent left fifth digit amputation with attempted delayed closure of fourth digit amputation site ulceration and with application of amnio fix grafting to all sites by Dr. López on 01/03/2021. The attempt for delayed primary closure of the previous fourth digit amputation site ulceration was not successful and ulceration here remains. Cultures at this time are also positive for Pseudomonas. 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 Cultures from 02/05/2021 were also positive for Pseudomonas. Patient has had multiple rounds of antibiotics and consultation with infectious disease over this infection. Patient is noted to have return of vascular symptom complaints especially to left lower extremity. She has appointment with Dr. Nicholson for reassessment with the understanding she might need possible further intervention. Patient continues care at the wound care center for remaining left foot wounds. Patient is noted to have been approved for [employer] but was not fully covered and would not be able to cover the remaining financial expense. Patient has had other modalities of treatment to include HBO therapy. She did had a revascularization procedure with Dr. Nicholson on ?18. She is doing well and follow-up in 6 months. She is also scheduled to undergo hyperbaric oxygen therapy treatment today. Subjective Subjective Today's hyperbaric oxygen therapy session was the 17th, of a planned 20 such sessions. Hyperbaric oxygen therapy was administered as per the facility's protocol. Hyperbaric oxygen therapy was administered at 2 kaylan for 90 minutes with no air breaks. The patient tolerated hyperbaric oxygen therapy well, without complaints or complications. Upon emergence from the hyperbaric chamber, the patient's vital signs remained stable. She was discharged in good condition. Pre and post treatment blood glucose measurements are documented elsewhere. Objective Data Objective Data Vital Signs: Vital Signs Temp Pulse Resp BP 97.1 F L 63 18 173/70 H 05/28/21 08:36 05/28/21 08:36 05/28/21 08:36 05/28/21 08:36 Weight: 328 lb 7.82 oz Body Mass Index (BMI) 23.5 Lab / Micro Data Labs: Laboratory Results - last 24 hr 05/28/21 07:53: POC Glucose 147 H 05/28/21 10:11: POC Glucose 101 Exam Physical Exam Const alert, oriented x3, no apparent distress and well nourished General Appearance: cooperative and well developed HEENT normocephalic and EAC's normal Head and Scalp: atraumatic Eyes PERRL and EOMs intact bilaterally Resp normal respiratory effort and no use of accessory muscles Effort and Inspection: able to speak in complete sentences Psych affect normal Appearance: grossly normal and well kempt Assessment/Plan Assessment/Plan (1) Osteomyelitis of left foot: CODE(S): M86.9 - Osteomyelitis, unspecified QUALIFIERS: Osteomyelitis type: unspecified type Qualified Code(s): M86.9 - Osteomyelitis, unspecified (2) Gangrene of left foot: CODE(S): I96 - Gangrene, not elsewhere classified (3) Bone infection of left foot: CODE(S): M86.9 - Osteomyelitis, unspecified (4) Osteomyelitis: CODE(S): M86.9 - Osteomyelitis, unspecified QUALIFIERS: Osteomyelitis type: subacute Osteomyelitis location: foot Laterality: left Qualified Code(s): M86.272 - Subacute osteomyelitis, left ankle and foot (5) Non-pressure chronic ulcer of other part of left foot with necrosis of bone: CODE(S): L97.524 - Non-pressure chronic ulcer of other part of left foot with necrosis of bone (6) 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 PLAN: The patient appears to be tolerating hyperbaric oxygen therapy well, which will be continued as per the patient's medical plan.
[2021-05-29 08:01] LABS: Bedside Glucose 111 mg/dL (70-110)
[2021-05-29 08:20] LABS: Bedside Glucose 108 mg/dL (70-110)
[2021-05-29 08:36] LABS: Bedside Glucose 114 mg/dL (70-110)
[2021-05-29 08:48] VITALS: BP 157/69; PULSE 62; TEMP 35.7; BMI 23.5
--- NOTE | 2021-05-29 08:51 | WC ---
Pt blood sugar was to low to dive at 111. Rechecked x 3. Informed Wilma Munroe.
--- NOTE | 2021-05-29 22:37 | PN.PCM_ITS ---
History of Present Illness Date of Service: 05/29/21 Chief Complaint: Diabetic foot ulceration?left foot Left fourth and fifth digit amputation site ulceration Peripheral arterial occlusive disease History of Wound: Patient had intervention done by Dr. Nicholson on 06/12/2020. Patient saw Dr. Tenorio June 26, 2020 and was started on 100mg gabapentin TID. She has noticed some improvement in her pain. Patient had further intervention with Dr. Nicholson on October 11, 2020. Patient relates having to be transferred to [facility] for this. 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 Amputation of 4th digit with debridement of 1st and 5th digit ulcerations was performed 07/08/20. 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 Patient underwent left fifth digit amputation with attempted delayed closure of fourth digit amputation site ulceration and with application of amnio fix grafting to all sites by Dr. López on 01/03/2021. The attempt for delayed primary closure of the previous fourth digit amputation site ulceration was not successful and ulceration here remains. Cultures at this time are also positive for Pseudomonas. 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 Cultures from 02/05/2021 were also positive for Pseudomonas. Patient has had multiple rounds of antibiotics and consultation with infectious disease over this infection. Patient is noted to have return of vascular symptom complaints especially to left lower extremity. She has appointment with Dr. Nicholson for reassessment with the understanding she might need possible further intervention. Patient continues care at the wound care center for remaining left foot wounds. Patient is noted to have been approved for [employer] but was not fully covered and would not be able to cover the remaining financial expense. Patient has had other modalities of treatment to include HBO therapy. She did had a revascularization procedure with Dr. Nicholson on . She is doing well and follow-up in 6 months. She is also scheduled to undergo hyperbaric oxygen therapy treatment today however this has been canceled due to her lower blood glucose level. She reports decreased drainage. Progress of Wound: Improving distal Healed proximal ulcer site Objective Data Objective Data Vital Signs: Vital Signs Temp Pulse Resp BP 96.3 F L 62 18 157/69 H 05/29/21 08:48 05/29/21 08:48 05/28/21 08:36 05/29/21 08:48 Weight: 149 kg Body Mass Index (BMI) 23.5 Lab / Micro Data Labs: Laboratory Results - last 24 hr 05/29/21 07:56: POC Glucose 111 H 05/29/21 08:15: POC Glucose 108 05/29/21 08:29: POC Glucose 114 H Physical Exam Extremity Extremity Narrative: no cyanosis, no calf tenderness, diminished pulses muscle wasting noted. no tenderness Amputation lateral left forefoot No fluctuance or bogginess on palpation Skin Skin Narrative: no purulence, no erythema, no streaking, no odor, no infection. Adjacent skin is atrophic. hallux is healed with full epithelialization. The distal most lateral foot ulcer has a granular base. The distal most lateral ul cer has a granular base and no longer visualized bone. proximal lateral ulcer left foot is healed with full epithelialization. There is no periulcer inflammation Neuro Neuro Narrative: lack of normal epicritic sensation via light touch consistent with neuropathy Debridement Note Debridement Note Wound debrided: lateral foot left Wound Grade/Stage: 1 Type of Debridement: Excisional debridement Anesthesia Used: 4% Lidocaine Solution Depth: in the subcutaneous layer Percentage of wound debrided: 100 Instrument Used: #15 blade Tissue Removed: fibrous, devitalized subcutaneous, biofilm, slough Severity: Fat Layer Exposed Amount of bleeding with debridement: Mild Bleeding Controlled with: Pressure Patient tolerated procedure: Patient tolerated procedure well Post-Debridement Measurements and Additional Note: Post-Debridement Measurements/Treatment - Nurse 1 - General Ulcer Assessment Start: 05/27/21 08:28 Freq: Status: Active Protocol: SOPHIA.[place] Activity Type Activity Date Activity User E-Sign Co-Sign Detail Recorded Client Recorded Date Recorded By Document 05/29/21 08:48 TN [id number] 05/29/21 08:51 LINSEY 05/29/21 08:48 - Today's Visit Information Type of service Follow-up Visit (Physician/IMMIGRATION LAW SPECIALIST ) Arrival Mode Ambulatory Patient Identification Verified (Name & Yes ) Patient Requires Transmission-Based No Precautions Finger Stick Blood Sugar(mg/dl) (if 114 indicated): Blood Sugar Done During this Visit Height and Weight Body Mass Index (BMI) 23.5 BMI Classification Normal Vital Signs Temperature (97.8 F-99.1 F) 96.3 F L Temperature Source Temporal Pulse Rate (60-100) 62 Pulse Location Monitor Blood Pressure (90/60-120/80) 157/69 H Blood Pressure Mean (mm Hg) 98 Source Monitor History Since Last Visit- (Skip if this is Patient's initial visit) Have you changed medications since your No last visit? Any new allergies or adverse reactions No Had a fall/change in ADL's that may No increase risk of falls Signs or symptoms of abuse and/or No neglect since last visit Have you been in the hospital since your No last visit? Has dressing in place as prescribed Yes Has compression in place as prescribed Yes Has offloadiing in place as prescribed N/A Experienced any changes in pain level or No management Left Footwear Surgical Shoe with pressure relief insole Right Footwear Regular Shoe WC - Nurse 1 - General Ulcer Measurement Start: 05/27/21 08:28 Freq: Status: Active Protocol: Activity Type Activity Date Activity User E-Sign Co-Sign Detail Recorded Client Recorded Date Recorded By Document 05/29/21 08:48 LINSEY [id number] 05/29/21 08:51 LINSEY 05/29/21 08:48 Wound Center Nurse 1 #3 4th lateral toe/amp site -Combined with other wound No -Current Size (cm) - Length 0.1 -Current Size (cm) - Width 0.1 -Current Size (cm) - Depth 0.1 -Total Square Cm 0.01 -Photo Taken No -Epithelialization None Present -Tunneling No -Undermining/Tunneling No -Circular Undermining No -Change in Wound Grade/Stage No -Exudate Amt None Present -Granulation Amt None Present (0 %) -Granulation Quality N/A -Slough/Fibrin No -Necrosis Amt None Present (0 %) -Structure Exposed N/A -Texture (Dot-wound Skin Appearance) No Abnormality, Assessed -Moisture (Dot-wound Skin Appearance) Assessed,Dry/ Scaly -Color (Dot-wound Skin Appearance) No Abnormality, Assessed -Temperature (Dot-wound Skin No Abnormality Appearance) (Pt Warm) -Tenderness on Palpation (Dot-wound No Skin Appearance) -Ulcer Cleansing Rinsed/ Irrigated with Saline -Foul Odor after Cleansing No -Anesthetic Used 4% Lidocaine Solution #2 L 5th toe AMP site -Combined with other wound No -Current Size (cm) - Length 0.1 -Current Size (cm) - Width 0.1 -Current Size (cm) - Depth 0.1 -Total Square Cm 0.01 -Photo Taken No -Epithelialization None Present -Tunneling No -Undermining/Tunneling No -Circular Undermining No -Change in Wound Grade/Stage No -Exudate Amt None Present -Granulation Amt None Present (0 %) -Granulation Quality N/A -Slough/Fibrin No -Necrosis Amt None Present (0 %) -Structure Exposed N/A -Texture (Dot-wound Skin Appearance) No Abnormality, Assessed -Moisture (Dot-wound Skin Appearance) No Abnormality, Assessed -Color (Dot-wound Skin Appearance) No Abnormality, Assessed -Temperature (Dot-wound Skin No Abnormality Appearance) (Pt Warm) -Tenderness on Palpation (Dot-wound No Skin Appearance) -Ulcer Cleansing Rinsed/ Irrigated with Saline -Foul Odor after Cleansing No -Anesthetic Used 4% Lidocaine Solution Lower Limb Edema Present No Left Calf (cm) 34 Left Ankle (cm) 22 WC - Nurse 2 - General Ulcer CM Notes Start: 05/27/21 08:28 Freq: Status: Active Protocol: Activity Type Activity Date Activity User E-Sign Co-Sign Detail Recorded Client Recorded Date Recorded By Document 05/29/21 09:00 [id number] 05/29/21 09:03 RICHI 05/29/21 09:00 Wound Center Nurse 2 #3 4th lateral toe/amp site -Time 09:00 -Correct Patient Yes -Correct Side, Site, Position Yes -Correct Procedure Yes -Procedure Performed Yes -Type of Procedure Debridement -Clinical Debridement Subcutaneous -Tissue Removed Subcutaneous -Post Debridement (cm) - Length 0.2 -Post Debridement (cm) - Width 0.2 -Post Debridement (cm) - Depth 0.1 -Total Square (Post) (cm) 0.04 -Area of Debridement (cm) - Length 0.2 -Area of Debridement (cm) - Width 0.2 -Total Square (Area) (cm) 0.04 -Tunneling No -Undermining/Tunneling No -Circular Undermining No -Wound/Ulcer Outcome Not Healed -Ulcer Cleansing Rinsed/ Irrigated with Saline -Foul Odor after Cleansing No -Bioengineered Tissue No -Bleeding Controlled with Pressure -Offloading Yes -Type of Offloading Surgical Shoe -Treatment Response Procedure Tolerated Well -Debridement - Subq, 1st 20sq cm Yes #2 L 5th toe AMP site -Correct Patient No -Correct Side, Site, Position No -Correct Procedure No -Procedure Performed No -Post Debridement (cm) - Length 0 -Post Debridement (cm) - Width 0 -Post Debridement (cm) - Depth 0 -Total Square (Post) (cm) 0 -Area of Debridement (cm) - Length 0 -Area of Debridement (cm) - Width 0 -Total Square (Area) (cm) 0 Pain Scale: 0-10 Numeric Is Patient Pain Free? Yes WC - Nurse 3 - General Ulcer D/C NN Start: 05/27/21 08:28 Freq: Status: Active Protocol: Activity Type Activity Date Activity User E-Sign Co-Sign Detail Recorded Client Recorded Date Recorded By Document 05/29/21 09:11 DL [id number] 05/29/21 09:13 DL 05/29/21 09:11 Wound Care Nurse 3 #3 4th lateral toe/amp site -Ulcer Cleansing Rinsed/ Irrigated with Saline -Foul Odor after Cleansing No -Primary Dressing Applied C Hydrogel ($) -Primary Dressing Covered/Secured with Dry Gauze & Roll Gauze, Secured with Tape Treatment Response Procedure Tolerated Well Pain Scale: 0-10 Numeric Is Patient Pain Free? Yes WC - Visit Discharge Discharge Condition Stable Ambulatory Status Ambulatory Transportation Private Auto Assessment/Plan Assessment/Plan (1) Non-pressure chronic ulcer of other part of left foot with necrosis of bone: CODE(S): L97.524 - Non-pressure chronic ulcer of other part of left foot with necrosis of bone (2) Non-pressure chronic ulcer of other part of left foot with fat layer exposed: CODE(S): L97.522 - Non-pressure chronic ulcer of other part of left foot with fat layer exposed (3) Osteomyelitis: CODE(S): M86.9 - Osteomyelitis, unspecified QUALIFIERS: Osteomyelitis type: subacute Osteomyelitis location: foot Laterality: left Qualified Code(s): M86.272 - Subacute osteomyelitis, left ankle and foot (4) PAD (peripheral artery disease): CODE(S): I73.9 - Peripheral vascular disease, unspecified (5) History of tobacco abuse: CODE(S): Z87.891 - Personal history of nicotine dependence (6) Ischaemic rest pain of lower extremity: CODE(S): M79.606 - Pain in leg, unspecified; I99.8 - Other disorder of circulatory system (7) Delayed wound healing: CODE(S): T14.8XXD - Other injury of unspecified body region, subsequent encounter (8) Amputated toe: CODE(S): S98.139A - Complete traumatic amputation of one unspecified lesser toe, initial encounter QUALIFIERS: Laterality: left Qualified Code(s): S98.132A - Complete traumatic amputation of one left lesser toe, initial encounter (9) Type 2 diabetes mellitus with diabetic polyneuropathy: CODE(S): E11.42 - Type 2 diabetes mellitus with diabetic polyneuropathy QUALIFIERS: Diabetes mellitus long lines operator insulin use: without skilled nursing use Qualified Code(s): E11.42 - Type 2 diabetes mellitus with diabetic polyneuropathy (10) Eschar of foot: CODE(S): R23.4 - Changes in skin texture PLAN: Patient seen and examined today. case was discussed. Proximal lateral left foot is healed toda. She had recent vascular surgery intervention on with Dr. Nicholson again.To follow up as scheduled. Her prior vascular studies 03/11/21 show bilateral DP and PT monphasic pulses. JENY left 0.4 at PT and 1.35 at DP and on right 0.66 at PT and 0.9 at DP with TBI of 0.19. No TBI obtained on left. She was previously treated with Levaquin per Dr. Skaggs, infectious disease specialist. Patient had cultures obtained 02/05/2021 demonstrating Pseudomonas. Discussed possibility of colonization with Pseudomonas with patient and family members. Patient has had Pseudomonas consistently on her wound cultures for the last several months with multiple rounds of treatment. Culture of 5th metatarsal bone 03/05/21 was positive for PsAg. She was reassured no local signs infection noted today. To continue with diligent antibacterial soap and water wash with wound dressing changes. She was concerned about purulence and infection however after debridement under the eschar it appears there is collection of fibrous tissue. She was advised to monitor for redness streaking odor or deterioration in the next week. Every other day Aquacel silver dressing changes to ulceration sites covered with dry sterile dressing. To wash with soap and water prior. She has done well with this so far. Reviewed proper wound care with patient. Discussed with the patient the importance of offloading the sites with wide enough shoe gear if she is to be wearing shoes, proper diet, good blood sugar control. Patient has used Darci in the past nutritional supplementation. She continues to use this twice a day. Patient was offered nutritional counseling with a it senior analyst. She is noted to have had counseling while in the hospital. Patient has offloaded surgical shoe. Discussed with the patient all concerning signs and symptoms to watch out for and to contact office if he either presents. Application for TheraSkin skin graft is approved but there is a portion that patient has cover [id number]. Patient will discuss with family if this is doable if she wants to proceed with this she will let us know. Resubmitted to see if her [id number] cost is changed since previous submission. Patient is noted to still be responsible for $325 per application. This is not doable per patient. Patient and family may reconsider pending vascular results with Dr. Nicholson. Patient has a diabetic foot ulceration that has failed to show measurable signs of healing after completing 30 consecutive days of standard wound care. There is confirmed osteomyelitis to left 5th metatarsal even though patient has had multiple rounds of antibiotics and consultations with infectious disease. Patient would likely be a good candidate for hyperbaric oxygen therapy. This would include further work up with labs, imaging, and clearance consultation. If patient is approved for hyperbaric oxygen therapy our goals would be to get progression and healing of patient's wounds while continuing regular debridements, monitoring, offloading, medical optimizing and monitoring. Patient is noted to have been denied hyperbarics in the past but with new osteomyelitis we are hopeful that she will be approved for therapy in order to obtain wound healing. She will proceed with hyperbaric oxygen therapy tomorrow. She is doing well so far. Patient is to follow-up in 2 weeks. This note was generated with [employer] dictation software. It may contain incorrect words, spelling, and punctuation that were not noted in checking the note before signing.
[2021-05-30 07:56] LABS: Bedside Glucose 186 mg/dL (70-110)
[2021-05-30 08:27] VITALS: BP 154/61; BP 162/67; PULSE 56; PULSE 57; RESP 16; RESP 17; TEMP 35.8
--- NOTE | 2021-05-30 08:47 | HBO.PN.PCM_ITS ---
History of Present Illness Date of Service: 05/30/21 Chief Complaint: Diabetic foot ulceration?left foot Left fourth and fifth digit amputation site ulceration Peripheral arterial occlusive disease History of Wound: Patient had intervention done by Dr. Nicholson on 06/12/2020. Patient saw Dr. Tenorio June 26, 2020 and was started on 100mg gabapentin TID. She has noticed some improvement in her pain. Patient had further intervention with Dr. Nicholson on October 11, 2020. Patient relates having to be transferred to [facility] for this. 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 Amputation of 4th digit with debridement of 1st and 5th digit ulcerations was performed 07/08/20. 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 Patient underwent left fifth digit amputation with attempted delayed closure of fourth digit amputation site ulceration and with application of amnio fix grafting to all sites by Dr. López on 01/03/2021. The attempt for delayed primary closure of the previous fourth digit amputation site ulceration was not successful and ulceration here remains. Cultures at this time are also positive for Pseudomonas. 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 Cultures from 02/05/2021 were also positive for Pseudomonas. Patient has had multiple rounds of antibiotics and consultation with infectious disease over this infection. Patient is noted to have return of vascular symptom complaints especially to left lower extremity. She has appointment with Dr. Nicholson for reassessment with the understanding she might need possible further intervention. Patient continues care at the wound care center for remaining left foot wounds. Patient is noted to have been approved for [employer] but was not fully covered and would not be able to cover the remaining financial expense. Patient has had other modalities of treatment to include HBO therapy. She did had a revascularization procedure with Dr. Nicholson on ?18. She is doing well and follow-up in 6 months. She is also scheduled to undergo hyperbaric oxygen therapy treatment today. Subjective Subjective Today's hyperbaric oxygen therapy session was the 18th, of a planned 20 such sessions. Hyperbaric oxygen therapy was administered as per the facility's protocol. Hyperbaric oxygen therapy was administered at 2 kaylan for 90 minutes with no air breaks. Patient tolerated hyperbaric oxygen therapy well, without complaints or complications. Upon emergence from the hyperbaric chamber, the patient's vital signs remained stable. She was discharged in good condition. Pre and post treatment blood glucose measurements are documented elsewhere. Objective Data Objective Data Vital Signs: Vital Signs Temp Pulse Resp BP 96.4 F L 57 L 16 154/61 H 05/30/21 08:27 05/30/21 08:27 05/30/21 08:27 05/30/21 08:27 Weight: 328 lb 7.82 oz Body Mass Index (BMI) 23.5 Lab / Micro Data Labs: Laboratory Results - last 24 hr 05/30/21 07:49: POC Glucose 186 H Exam Physical Exam Const alert, oriented x3, no apparent distress and well nourished General Appearance: cooperative and well developed HEENT normocephalic, EAC's normal and TM's normal bilaterally Head and Scalp: atraumatic Eyes PERRL and EOMs intact bilaterally Neck supple and no JVD Resp normal respiratory effort and no use of accessory muscles Effort and Inspection: able to speak in complete sentences Psych affect normal Appearance: grossly normal and well kempt Nursing Assessment and Debridement Post-Debridement Measurements and Additional Note: Post-Debridement Measurements/Treatment - Nurse 1 - General Ulcer Assessment Start: 05/27/21 08:28 Freq: Status: Active Protocol: WC.LOWCASPERT Activity Type Activity Date Activity User E-Sign Co-Sign Detail Recorded Client Recorded Date Recorded By Document 05/29/21 08:48 KS [id number] 05/29/21 08:51 LINSEY 05/29/21 08:48 - Today's Visit Information Type of service Follow-up Visit (Physician/[employer]PERVISOR ) Arrival Mode Ambulatory Patient Identification Verified (Name & Yes ) Patient Requires Transmission-Based No Precautions Finger Stick Blood Sugar(mg/dl) (if 114 indicated): Blood Sugar Done During this Visit Height and Weight Body Mass Index (BMI) 23.5 BMI Classification Normal Vital Signs Temperature (97.8 F-99.1 F) 96.3 F L Temperature Source Temporal Pulse Rate (60-100) 62 Pulse Location Monitor Blood Pressure (90/60-120/80) 157/69 H Blood Pressure Mean (mm Hg) 98 Source Monitor History Since Last Visit- (Skip if this is Patient's initial visit) Have you changed medications since your No last visit? Any new allergies or adverse reactions No Had a fall/change in ADL's that may No increase risk of falls Signs or symptoms of abuse and/or No neglect since last visit Have you been in the hospital since your No last visit? Has dressing in place as prescribed Yes Has compression in place as prescribed Yes Has offloadiing in place as prescribed N/A Experienced any changes in pain level or No management Left Footwear Surgical Shoe with pressure relief insole Right Footwear Regular Shoe WC - Nurse 1 - General Ulcer Measurement Start: 05/27/21 08:28 Freq: Status: Active Protocol: Activity Type Activity Date Activity User E-Sign Co-Sign Detail Recorded Client Recorded Date Recorded By Document 05/29/21 08:48 KS [id number] 05/29/21 08:51 AK 05/29/21 08:48 Wound Center Nurse 1 #3 4th lateral toe/amp site -Combined with other wound No -Current Size (cm) - Length 0.1 -Current Size (cm) - Width 0.1 -Current Size (cm) - Depth 0.1 -Total Square Cm 0.01 -Photo Taken No -Epithelialization None Present -Tunneling No -Undermining/Tunneling No -Circular Undermining No -Change in Wound Grade/Stage No -Exudate Amt None Present -Granulation Amt None Present (0 %) -Granulation Quality N/A -Slough/Fibrin No -Necrosis Amt None Present (0 %) -Structure Exposed N/A -Texture (Dot-wound Skin Appearance) No Abnormality, Assessed -Moisture (Dot-wound Skin Appearance) Assessed,Dry/ Scaly -Color (Dot-wound Skin Appearance) No Abnormality, Assessed -Temperature (Dot-wound Skin No Abnormality Appearance) (Pt Warm) -Tenderness on Palpation (Dot-wound No Skin Appearance) -Ulcer Cleansing Rinsed/ Irrigated with Saline -Foul Odor after Cleansing No -Anesthetic Used 4% Lidocaine Solution #2 L 5th toe AMP site -Combined with other wound No -Current Size (cm) - Length 0.1 -Current Size (cm) - Width 0.1 -Current Size (cm) - Depth 0.1 -Total Square Cm 0.01 -Photo Taken No -Epithelialization None Present -Tunneling No -Undermining/Tunneling No -Circular Undermining No -Change in Wound Grade/Stage No -Exudate Amt None Present -Granulation Amt None Present (0 %) -Granulation Quality N/A -Slough/Fibrin No -Necrosis Amt None Present (0 %) -Structure Exposed N/A -Texture (Dot-wound Skin Appearance) No Abnormality, Assessed -Moisture (Dot-wound Skin Appearance) No Abnormality, Assessed -Color (Dot-wound Skin Appearance) No Abnormality, Assessed -Temperature (Dot-wound Skin No Abnormality Appearance) (Pt Warm) -Tenderness on Palpation (Dot-wound No Skin Appearance) -Ulcer Cleansing Rinsed/ Irrigated with Saline -Foul Odor after Cleansing No -Anesthetic Used 4% Lidocaine Solution Lower Limb Edema Present No Left Calf (cm) 34 Left Ankle (cm) 22 WC - Nurse 2 - General Ulcer CM Notes Start: 05/27/21 08:28 Freq: Status: Active Protocol: Activity Type Activity Date Activity User E-Sign Co-Sign Detail Recorded Client Recorded Date Recorded By Document 05/29/21 09:00 RICHI [id number] 05/29/21 09:03 RICHI 05/29/21 09:00 Wound Center Nurse 2 #3 4th lateral toe/amp site -Time 09:00 -Correct Patient Yes -Correct Side, Site, Position Yes -Correct Procedure Yes -Procedure Performed Yes -Type of Procedure Debridement -Clinical Debridement Subcutaneous -Tissue Removed Subcutaneous -Post Debridement (cm) - Length 0.2 -Post Debridement (cm) - Width 0.2 -Post Debridement (cm) - Depth 0.1 -Total Square (Post) (cm) 0.04 -Area of Debridement (cm) - Length 0.2 -Area of Debridement (cm) - Width 0.2 -Total Square (Area) (cm) 0.04 -Tunneling No -Undermining/Tunneling No -Circular Undermining No -Wound/Ulcer Outcome Not Healed -Ulcer Cleansing Rinsed/ Irrigated with Saline -Foul Odor after Cleansing No -Bioengineered Tissue No -Bleeding Controlled with Pressure -Offloading Yes -Type of Offloading Surgical Shoe -Treatment Response Procedure Tolerated Well -Debridement - Subq, 1st 20sq cm Yes #2 L 5th toe AMP site -Correct Patient No -Correct Side, Site, Position No -Correct Procedure No -Procedure Performed No -Post Debridement (cm) - Length 0 -Post Debridement (cm) - Width 0 -Post Debridement (cm) - Depth 0 -Total Square (Post) (cm) 0 -Area of Debridement (cm) - Length 0 -Area of Debridement (cm) - Width 0 -Total Square (Area) (cm) 0 Pain Scale: 0-10 Numeric Is Patient Pain Free? Yes WC - Nurse 3 - General Ulcer D/C NN Start: 05/27/21 08:28 Freq: Status: Active Protocol: Activity Type Activity Date Activity User E-Sign Co-Sign Detail Recorded Client Recorded Date Recorded By Document 05/29/21 09:11 DL [id number] 05/29/21 09:13 DL 05/29/21 09:11 Wound Care Nurse 3 #3 4th lateral toe/amp site -Ulcer Cleansing Rinsed/ Irrigated with Saline -Foul Odor after Cleansing No -Primary Dressing Applied C Hydrogel ($) -Primary Dressing Covered/Secured with Dry Gauze & Roll Gauze, Secured with Tape Treatment Response Procedure Tolerated Well Pain Scale: 0-10 Numeric Is Patient Pain Free? Yes WC - Visit Discharge Discharge Condition Stable Ambulatory Status Ambulatory Transportation Private Auto Assessment/Plan Assessment/Plan (1) Osteomyelitis of left foot: CODE(S): M86.9 - Osteomyelitis, unspecified QUALIFIERS: Osteomyelitis type: unspecified type Qualified Code(s): M86.9 - Osteomyelitis, unspecified PLAN: She appears to be tolerating hyperbaric oxygen therapy which will be continued as per the patient's medical plan. (2) Gangrene of left foot: CODE(S): I96 - Gangrene, not elsewhere classified (3) Bone infection of left foot: CODE(S): M86.9 - Osteomyelitis, unspecified (4) Osteomyelitis: CODE(S): M86.9 - Osteomyelitis, unspecified QUALIFIERS: Laterality: left Osteomyelitis location: foot Osteomyelitis type: subacute Qualified Code(s): M86.272 - Subacute osteomyelitis, left ankle and foot (5) Non-pressure chronic ulcer of other part of left foot with necrosis of bone: CODE(S): L97.524 - Non-pressure chronic ulcer of other part of left foot with necrosis of bone (6) 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
[2021-05-30 10:20] LABS: Bedside Glucose 114 mg/dL (70-110)
[2021-05-31 07:56] LABS: Bedside Glucose 185 mg/dL (70-110)
[2021-05-31 10:20] LABS: Bedside Glucose 76 mg/dL (70-110)
[2021-05-31 12:48] VITALS: BP 152/55; BP 160/67; PULSE 61; PULSE 66; RESP 16; RESP 18; TEMP 35.7
--- NOTE | 2021-05-31 14:47 | PCM.HBO.PN ---
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 Nicholson on 06/12/2020. Patient saw Dr. Tenorio June 26, 2020 and was started on 100mg gabapentin TID. She has noticed some improvement in her pain. Patient had further intervention with Dr. Nicholson on October 11, 2020. Patient relates having to be transferred to [facility] for this. 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 Amputation of 4th digit with debridement of 1st and 5th digit ulcerations was performed 07/08/20. 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 Patient underwent left fifth digit amputation with attempted delayed closure of fourth digit amputation site ulceration and with application of amnio fix grafting to all sites by Dr. López on 01/03/2021. The attempt for delayed primary closure of the previous fourth digit amputation site ulceration was not successful and ulceration here remains. Cultures at this time are also positive for Pseudomonas. 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 Cultures from 02/05/2021 were also positive for Pseudomonas. Patient has had multiple rounds of antibiotics and consultation with infectious disease over this infection. Patient is noted to have return of vascular symptom complaints especially to left lower extremity. She has appointment with Dr. Nicholson for reassessment with the understanding she might need possible further intervention. Patient continues care at the wound care center for remaining left foot wounds. Patient is noted to have been approved for [employer] but was not fully covered and would not be able to cover the remaining financial expense. Patient has had other modalities of treatment to include HBO therapy. She did had a revascularization procedure with Dr. Nicholson on ?18. She is doing well and follow-up in 6 months. She is also scheduled to undergo hyperbaric oxygen therapy treatment today. Subjective Subjective Today's hyperbaric oxygen therapy session was the 19th, of a planned 20 such sessions. Hyperbaric oxygen therapy was administered as per the facility's protocol. Hyperbaric oxygen therapy was administered at 2 kaylan for 90 minutes with no air breaks. Patient tolerated hyperbaric oxygen therapy well, without complaints or complications. Upon emergence from the hyperbaric chamber, the patient's vital signs remained stable. She was discharged in good condition. Pre and post treatment blood glucose measurements are documented elsewhere. Objective Data Objective Data Vital Signs: Vital Signs Temp Pulse Resp BP 96.2 F L 66 18 152/55 H 05/31/21 12:48 05/31/21 12:48 05/31/21 12:48 05/31/21 12:48 Weight: 149 kg Body Mass Index (BMI) 23.5 Lab / Micro Data Labs: Laboratory Results - last 24 hr 05/31/21 07:53: POC Glucose 185 H 05/31/21 10:16: POC Glucose 76 Exam Physical Exam Const alert, oriented x3 and no apparent distress General Appearance: cooperative and comfortable HEENT Tympanic Membrane: TM abnormal bilateral myringotomy tube present and other Psych mental status grossly normal and thought process normal Nursing Assessment and Debridement Post-Debridement Measurements and Additional Note: Post-Debridement Measurements/Treatment WC - Nurse 1 - General Ulcer Assessment Start: 05/27/21 08:28 Freq: Status: Active Protocol: WC.LOWEXParker Activity Type Activity Date Activity User E-Sign Co-Sign Detail Recorded Client Recorded Date Recorded By Document 05/29/21 08:48 LINSEY [id number] 05/29/21 08:51 LINSEY 05/29/21 08:48 WC - Today's Visit Information Type of service Follow-up Visit (Physician/SECOND HELPER ) Arrival Mode Ambulatory Patient Identification Verified (Name & Yes ) Patient Requires Transmission-Based No Precautions Finger Stick Blood Sugar(mg/dl) (if 114 indicated): Blood Sugar Done During this Visit Height and Weight Body Mass Index (BMI) 23.5 BMI Classification Normal Vital Signs Temperature (97.8 F-99.1 F) 96.3 F L Temperature Source Temporal Pulse Rate (60-100) 62 Pulse Location Monitor Blood Pressure (90/60-120/80) 157/69 H Blood Pressure Mean (mm Hg) 98 Source Monitor History Since Last Visit- (Skip if this is Patient's initial visit) Have you changed medications since your No last visit? Any new allergies or adverse reactions No Had a fall/change in ADL's that may No increase risk of falls Signs or symptoms of abuse and/or No neglect since last visit Have you been in the hospital since your No last visit? Has dressing in place as prescribed Yes Has compression in place as prescribed Yes Has offloadiing in place as prescribed N/A Experienced any changes in pain level or No management Left Footwear Surgical Shoe with pressure relief insole Right Footwear Regular Shoe WC - Nurse 1 - General Ulcer Measurement Start: 05/27/21 08:28 Freq: Status: Active Protocol: Activity Type Activity Date Activity User E-Sign Co-Sign Detail Recorded Client Recorded Date Recorded By Document 05/29/21 08:48 LINSEY [id number] 05/29/21 08:51 LINSEY 05/29/21 08:48 Wound Center Nurse 1 #3 4th lateral toe/amp site -Combined with other wound No -Current Size (cm) - Length 0.1 -Current Size (cm) - Width 0.1 -Current Size (cm) - Depth 0.1 -Total Square Cm 0.01 -Photo Taken No -Epithelialization None Present -Tunneling No -Undermining/Tunneling No -Circular Undermining No -Change in Wound Grade/Stage No -Exudate Amt None Present -Granulation Amt None Present (0 %) -Granulation Quality N/A -Slough/Fibrin No -Necrosis Amt None Present (0 %) -Structure Exposed N/A -Texture (Dot-wound Skin Appearance) No Abnormality, Assessed -Moisture (Dot-wound Skin Appearance) Assessed,Dry/ Scaly -Color (Dot-wound Skin Appearance) No Abnormality, Assessed -Temperature (Dot-wound Skin No Abnormality Appearance) (Pt Warm) -Tenderness on Palpation (Dot-wound No Skin Appearance) -Ulcer Cleansing Rinsed/ Irrigated with Saline -Foul Odor after Cleansing No -Anesthetic Used 4% Lidocaine Solution #2 L 5th toe AMP site -Combined with other wound No -Current Size (cm) - Length 0.1 -Current Size (cm) - Width 0.1 -Current Size (cm) - Depth 0.1 -Total Square Cm 0.01 -Photo Taken No -Epithelialization None Present -Tunneling No -Undermining/Tunneling No -Circular Undermining No -Change in Wound Grade/Stage No -Exudate Amt None Present -Granulation Amt None Present (0 %) -Granulation Quality N/A -Slough/Fibrin No -Necrosis Amt None Present (0 %) -Structure Exposed N/A -Texture (Dot-wound Skin Appearance) No Abnormality, Assessed -Moisture (Dot-wound Skin Appearance) No Abnormality, Assessed -Color (Dot-wound Skin Appearance) No Abnormality, Assessed -Temperature (Dot-wound Skin No Abnormality Appearance) (Pt Warm) -Tenderness on Palpation (Dot-wound No Skin Appearance) -Ulcer Cleansing Rinsed/ Irrigated with Saline -Foul Odor after Cleansing No -Anesthetic Used 4% Lidocaine Solution Lower Limb Edema Present No Left Calf (cm) 34 Left Ankle (cm) 22 SOPHIA - Nurse 2 - General Ulcer CM Notes Start: 05/27/21 08:28 Freq: Status: Active Protocol: Activity Type Activity Date Activity User E-Sign Co-Sign Detail Recorded Client Recorded Date Recorded By Document 05/29/21 09:00 RICHI [id number] 05/29/21 09:03 RICHI 05/29/21 09:00 Wound Center Nurse 2 #3 4th lateral toe/amp site -Time 09:00 -Correct Patient Yes -Correct Side, Site, Position Yes -Correct Procedure Yes -Procedure Performed Yes -Type of Procedure Debridement -Clinical Debridement Subcutaneous -Tissue Removed Subcutaneous -Post Debridement (cm) - Length 0.2 -Post Debridement (cm) - Width 0.2 -Post Debridement (cm) - Depth 0.1 -Total Square (Post) (cm) 0.04 -Area of Debridement (cm) - Length 0.2 -Area of Debridement (cm) - Width 0.2 -Total Square (Area) (cm) 0.04 -Tunneling No -Undermining/Tunneling No -Circular Undermining No -Wound/Ulcer Outcome Not Healed -Ulcer Cleansing Rinsed/ Irrigated with Saline -Foul Odor after Cleansing No -Bioengineered Tissue No -Bleeding Controlled with Pressure -Offloading Yes -Type of Offloading Surgical Shoe -Treatment Response Procedure Tolerated Well -Debridement - Subq, 1st 20sq cm Yes #2 L 5th toe AMP site -Correct Patient No -Correct Side, Site, Position No -Correct Procedure No -Procedure Performed No -Post Debridement (cm) - Length 0 -Post Debridement (cm) - Width 0 -Post Debridement (cm) - Depth 0 -Total Square (Post) (cm) 0 -Area of Debridement (cm) - Length 0 -Area of Debridement (cm) - Width 0 -Total Square (Area) (cm) 0 Pain Scale: 0-10 Numeric Is Patient Pain Free? Yes SOPHIA - Nurse 3 - General Ulcer D/C NN Start: 05/27/21 08:28 Freq: Status: Active Protocol: Activity Type Activity Date Activity User E-Sign Co-Sign Detail Recorded Client Recorded Date Recorded By Document 05/29/21 09:11 DL [id number] 05/29/21 09:13 DL 05/29/21 09:11 Wound Care Nurse 3 #3 4th lateral toe/amp site -Ulcer Cleansing Rinsed/ Irrigated with Saline -Foul Odor after Cleansing No -Primary Dressing Applied C Hydrogel ($) -Primary Dressing Covered/Secured with Dry Gauze & Roll Gauze, Secured with Tape Treatment Response Procedure Tolerated Well Pain Scale: 0-10 Numeric Is Patient Pain Free? Yes WC - Visit Discharge Discharge Condition Stable Ambulatory Status Ambulatory Transportation Private Auto Assessment/Plan Assessment/Plan (1) Osteomyelitis of left foot: CODE(S): M86.9 - Osteomyelitis, unspecified QUALIFIERS: Osteomyelitis type: unspecified type Qualified Code(s): M86.9 - Osteomyelitis, unspecified (2) Gangrene of left foot: CODE(S): I96 - Gangrene, not elsewhere classified (3) Bone infection of left foot: CODE(S): M86.9 - Osteomyelitis, unspecified (4) Type 2 diabetes mellitus with diabetic polyneuropathy: CODE(S): E11.42 - Type 2 diabetes mellitus with diabetic polyneuropathy QUALIFIERS: Diabetes mellitus long-term insulin use: without long-term use Qualified Code(s): E11.42 - Type 2 diabetes mellitus with diabetic polyneuropathy (5) Osteomyelitis: CODE(S): M86.9 - Osteomyelitis, unspecified QUALIFIERS: Osteomyelitis type: subacute Osteomyelitis location: foot Laterality: left Qualified Code(s): M86.272 - Subacute osteomyelitis, left ankle and foot (6) Non-pressure chronic ulcer of other part of left foot with necrosis of bone: CODE(S): L97.524 - Non-pressure chronic ulcer of other part of left foot with necrosis of bone PLAN: She appears to be tolerating hyperbaric oxygen therapy which will be continued as per the patient's medical plan.
[2021-06-03 07:56] LABS: Bedside Glucose 211 mg/dL (70-110)
[2021-06-03 08:43] VITALS: BP 155/63; BP 160/67; PULSE 57; PULSE 59; RESP 16; TEMP 35.8
--- NOTE | 2021-06-03 10:10 | PCM.HBO.PN ---
History of Present Illness Date of Service: 06/03/21 Chief Complaint: Diabetic foot ulceration?left foot Left fourth and fifth digit amputation site ulceration Peripheral arterial occlusive disease History of Wound: Patient had intervention done by Dr. Nicholson on 06/12/2020. Patient saw Dr. Tenorio June 26, 2020 and was started on 100mg gabapentin TID. She has noticed some improvement in her pain. Patient had further intervention with Dr. Nicholson on October 11, 2020. Patient relates having to be transferred to [facility] for this. 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 Amputation of 4th digit with debridement of 1st and 5th digit ulcerations was performed 07/08/20. 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 Patient underwent left fifth digit amputation with attempted delayed closure of fourth digit amputation site ulceration and with application of amnio fix grafting to all sites by Dr. López on 01/03/2021. The attempt for delayed primary closure of the previous fourth digit amputation site ulceration was not successful and ulceration here remains. Cultures at this time are also positive for Pseudomonas. 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 Cultures from 02/05/2021 were also positive for Pseudomonas. Patient has had multiple rounds of antibiotics and consultation with infectious disease over this infection. Patient is noted to have return of vascular symptom complaints especially to left lower extremity. She has appointment with Dr. Nicholson for reassessment with the understanding she might need possible further intervention. Patient continues care at the wound care center for remaining left foot wounds. Patient is noted to have been approved for [employer] but was not fully covered and would not be able to cover the remaining financial expense. Patient has had other modalities of treatment to include HBO therapy. She did had a revascularization procedure with Dr. Nicholson on ?18. She is doing well and follow-up in 6 months. She is also scheduled to undergo hyperbaric oxygen therapy treatment today however this has been canceled due to her lower blood glucose level. She reports decreased drainage. Subjective Subjective Today's hyperbaric oxygen therapy session was the 20th, of a planned 20 such sessions. Hyperbaric oxygen therapy was administered as per the facility's protocol. Hyperbaric oxygen therapy was administered at 2 kaylan for 90 minutes with no air breaks. Patient tolerated hyperbaric oxygen therapy well, without complaints or complications. Upon emergence from the hyperbaric chamber, the patient's vital signs remained stable. She was discharged in good condition. Pre and post treatment blood glucose measurements are documented elsewhere. Objective Data Objective Data Vital Signs: Vital Signs Temp Pulse Resp BP 96.5 F L 57 L 16 155/63 H 06/03/21 08:43 06/03/21 08:43 06/03/21 08:43 06/03/21 08:43 Weight: 328 lb 7.82 oz Body Mass Index (BMI) 23.5 Lab / Micro Data Labs: Laboratory Results - last 24 hr 06/03/21 07:51: POC Glucose 211 H Exam Physical Exam Const alert, oriented x3, no apparent distress and well nourished General Appearance: cooperative and well developed HEENT normocephalic, EAC's normal and TM's normal bilaterally Head and Scalp: atraumatic Eyes PERRL and EOMs intact bilaterally Neck supple and no JVD Resp normal respiratory effort and no use of accessory muscles Effort and Inspection: able to speak in complete sentences Psych affect normal Appearance: grossly normal and well kempt Assessment/Plan Assessment/Plan (1) Osteomyelitis of left foot: CODE(S): M86.9 - Osteomyelitis, unspecified QUALIFIERS: Osteomyelitis type: unspecified type Qualified Code(s): M86.9 - Osteomyelitis, unspecified PLAN: She appears to be tolerating hyperbaric oxygen therapy which will be continued as per the patient's medical plan. (2) Gangrene of left foot: CODE(S): I96 - Gangrene, not elsewhere classified (3) Bone infection of left foot: CODE(S): M86.9 - Osteomyelitis, unspecified (4) Osteomyelitis: CODE(S): M86.9 - Osteomyelitis, unspecified QUALIFIERS: Laterality: left Osteomyelitis location: foot Osteomyelitis type: subacute Qualified Code(s): M86.272 - Subacute osteomyelitis, left ankle and foot (5) Non-pressure chronic ulcer of other part of left foot with necrosis of bone: CODE(S): L97.524 - Non-pressure chronic ulcer of other part of left foot with necrosis of bone (6) 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
[2021-06-03 10:25] LABS: Bedside Glucose 111 mg/dL (70-110)
[2021-06-04 07:56] LABS: Bedside Glucose 158 mg/dL (70-110)
[2021-06-04 08:53] VITALS: BP 156/67; BP 165/67; PULSE 59; PULSE 60; RESP 17; TEMP 35.2
[2021-06-04 10:15] LABS: Bedside Glucose 119 mg/dL (70-110)
--- NOTE | 2021-06-04 14:48 | HBO.PN.PCM_ITS ---
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 Nicholson on 06/12/2020. Patient saw Dr. Tenorio June 26, 2020 and was started on 100mg gabapentin TID. She has noticed some improvement in her pain. Patient had further intervention with Dr. Nicholson on October 11, 2020. Patient relates having to be transferred to [facility] for this. 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 Amputation of 4th digit with debridement of 1st and 5th digit ulcerations was performed 07/08/20. 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 Patient underwent left fifth digit amputation with attempted delayed closure of fourth digit amputation site ulceration and with application of amnio fix grafting to all sites by Dr. López on 01/03/2021. The attempt for delayed primary closure of the previous fourth digit amputation site ulceration was not successful and ulceration here remains. Cultures at this time are also positive for Pseudomonas. 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 Cultures from 02/05/2021 were also positive for Pseudomonas. Patient has had multiple rounds of antibiotics and consultation with infectious disease over this infection. Patient is noted to have return of vascular symptom complaints especially to left lower extremity. She has appointment with Dr. Nicholson for reassessment with the understanding she might need possible further intervention. Patient continues care at the wound care center for remaining left foot wounds. Patient is noted to have been approved for [employer] but was not fully covered and would not be able to cover the remaining financial expense. Patient has had other modalities of treatment to include HBO therapy. She did had a revascularization procedure with Dr. Nicholson on ?18. She is doing well and follow-up in 6 months. She is also scheduled to undergo hyperbaric oxygen therapy treatment today however this has been canceled due to her lower blood glucose level. She reports decreased drainage. Progress of Wound: Improving distal Healed proximal ulcer site Subjective Subjective Today's hyperbaric oxygen therapy session represents the 21st session of a planned 40 such sessions. Hyperbaric oxygen therapy was administered as per the facility's protocol. Hyperbaric oxygen therapy was administered at 2 kaylan for 90 minutes, with no air breaks. The patient tolerated hyperbaric oxygen therapy well, without complaints or complications. Upon emergence from the hyperbaric chamber, the patient's vital signs remained stable. She was discharged in good condition. Pre and post treatment blood glucose measurements are documented elsewhere. Objective Data Objective Data Vital Signs: Vital Signs Temp Pulse Resp BP 95.3 F L 59 L 17 156/67 H 06/04/21 08:53 06/04/21 08:53 06/04/21 08:53 06/04/21 08:53 Weight: 328 lb 7.82 oz Body Mass Index (BMI) 23.5 Lab / Micro Data Labs: Laboratory Results - last 24 hr 06/04/21 07:52: POC Glucose 158 H 06/04/21 10:13: POC Glucose 119 H Exam Physical Exam Const alert, oriented x3, no apparent distress and well nourished General Appearance: cooperative and well developed HEENT normocephalic and EAC's normal Head and Scalp: atraumatic Eyes PERRL and EOMs intact bilaterally Resp normal respiratory effort and no use of accessory muscles Effort and Inspection: able to speak in complete sentences Psych affect normal Appearance: grossly normal and well kempt Assessment/Plan Assessment/Plan (1) Osteomyelitis of left foot: CODE(S): M86.9 - Osteomyelitis, unspecified QUALIFIERS: Osteomyelitis type: unspecified type Qualified Code(s): M86.9 - Osteomyelitis, unspecified (2) Bone infection of left foot: CODE(S): M86.9 - Osteomyelitis, unspecified (3) Gangrene of left foot: CODE(S): I96 - Gangrene, not elsewhere classified (4) Type 2 diabetes mellitus with diabetic polyneuropathy: CODE(S): E11.42 - Type 2 diabetes mellitus with diabetic polyneuropathy QUALIFIERS: Diabetes mellitus extermination inspector insulin use: without extermination inspector use Qualified Code(s): E11.42 - Type 2 diabetes mellitus with diabetic polyneuropathy (5) Osteomyelitis: CODE(S): M86.9 - Osteomyelitis, unspecified QUALIFIERS: Osteomyelitis type: subacute Osteomyelitis location: foot Laterality: left Qualified Code(s): M86.272 - Subacute osteomyelitis, left ankle and foot (6) History of tobacco abuse: CODE(S): Z87.891 - Personal history of nicotine dependence (7) Non-pressure chronic ulcer of other part of left foot with fat layer exposed: CODE(S): L97.522 - Non-pressure chronic ulcer of other part of left foot with fat layer exposed (8) Open wound of left foot: CODE(S): S91.302A - Unspecified open wound, left foot, initial encounter QUALIFIERS: Encounter type: subsequent encounter Qualified Code( s): S91.302D - Unspecified open wound, left foot, subsequent encounter (9) Delayed wound healing: CODE(S): T14.8XXD - Other injury of unspecified body region, subsequent encounter (10) Type 2 diabetes mellitus: CODE(S): E11.9 - Type 2 diabetes mellitus without complications QUALIFIERS: Diabetes mellitus residential insulin use: unspecified extermination inspector insulin use status Diabetes mellitus complication status: with circulatory complication Diabetes mellitus complication detail: with peripheral angiopathy with gangrene Qualified Code(s): E11.52 - Type 2 diabetes mellitus with diabetic peripheral angiopathy with gangrene (11) Peripheral arterial occlusive disease: CODE(S): I77.9 - Disorder of arteries and arterioles, unspecified PLAN: The patient appears to be tolerating hyperbaric oxygen therapy well, which will be continued as per the patient's medical plan.
[2021-06-05 07:56] LABS: Bedside Glucose 161 mg/dL (70-110)
[2021-06-05 08:44] VITALS: BP 133/62; BP 156/78; PULSE 59; RESP 16; TEMP 36.4
--- NOTE | 2021-06-05 09:57 | PCM.HBO.PN ---
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 Nicholson on 06/12/2020. Patient saw Dr. Tenorio June 26, 2020 and was started on 100mg gabapentin TID. She has noticed some improvement in her pain. Patient had further intervention with Dr. Nicholson on October 11, 2020. Patient relates having to be transferred to [facility] for this. 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 Amputation of 4th digit with debridement of 1st and 5th digit ulcerations was performed 07/08/20. 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 Patient underwent left fifth digit amputation with attempted delayed closure of fourth digit amputation site ulceration and with application of amnio fix grafting to all sites by Dr. López on 01/03/2021. The attempt for delayed primary closure of the previous fourth digit amputation site ulceration was not successful and ulceration here remains. Cultures at this time are also positive for Pseudomonas. 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 Cultures from 02/05/2021 were also positive for Pseudomonas. Patient has had multiple rounds of antibiotics and consultation with infectious disease over this infection. Patient is noted to have return of vascular symptom complaints especially to left lower extremity. She has appointment with Dr. Nicholson for reassessment with the understanding she might need possible further intervention. Patient continues care at the wound care center for remaining left foot wounds. Patient is noted to have been approved for [employer] but was not fully covered and would not be able to cover the remaining financial expense. Patient has had other modalities of treatment to include HBO therapy. She did had a revascularization procedure with Dr. Nicholson on ?18. She is doing well and follow-up in 6 months. She is also scheduled to undergo hyperbaric oxygen therapy treatment today however this has been canceled due to her lower blood glucose level. She reports decreased drainage. Progress of Wound: Improving distal Healed proximal ulcer site Subjective Subjective No concerns but is seeing ENT for tubes Objective Data Objective Data Tolerated HBO treatment #22 of 40 treatments well. Vital signs stable blood sugars are stable Vital Signs: Vital Signs Temp Pulse Resp BP 97.5 F L 59 L 16 133/62 H 06/05/21 08:44 06/05/21 08:44 06/05/21 08:44 06/05/21 08:44 Weight: 328 lb 7.82 oz Body Mass Index (BMI) 23.5 Lab / Micro Data Attestation: I reviewed the patient's lab results. Labs: Laboratory Results - last 24 hr 06/04/21 10:13: POC Glucose 119 H 06/05/21 07:53: POC Glucose 161 H Exam Physical Exam Const alert, oriented x3, no apparent distress and well nourished General Appearance: cooperative and well developed HEENT normocephalic and EAC's normal Head and Scalp: atraumatic Eyes PERRL and EOMs intact bilaterally Resp normal respiratory effort and no use of accessory muscles Effort and Inspection: able to speak in complete sentences Psych affect normal Appearance: grossly normal and well kempt Assessment/Plan Assessment/Plan (1) Osteomyelitis of left foot: CODE(S): M86.9 - Osteomyelitis, unspecified QUALIFIERS: Osteomyelitis type: unspecified type Qualified Code(s): M86.9 - Osteomyelitis, unspecified (2) Bone infection of left foot: CODE(S): M86.9 - Osteomyelitis, unspecified (3) Gangrene of left foot: CODE(S): I96 - Gangrene, not elsewhere classified (4) Type 2 diabetes mellitus with diabetic polyneuropathy: CODE(S): E11.42 - Type 2 diabetes mellitus with diabetic polyneuropathy QUALIFIERS: Diabetes mellitus predatory animal exterminator insulin use: without care home use Qualified Code(s): E11.42 - Type 2 diabetes mellitus with diabetic polyneuropathy (5) Osteomyelitis: CODE(S): M86.9 - Osteomyelitis, unspecified QUALIFIERS: Osteomyelitis type: subacute Osteomyelitis location: foot Laterality: left Qualified Code(s): M86.272 - Subacute osteomyelitis, left ankle and foot (6) History of tobacco abuse: CODE(S): Z87.891 - Personal history of nicotine dependence (7) Non-pressure chronic ulcer of other part of left foot with fat layer exposed: CODE(S): L97.522 - Non-pressure chronic ulcer of other part of left foot with fat layer exposed (8) Open wound of left foot: CODE(S): S91.302A - Unspecified open wound, left foot, initial encounter QUALIFIERS: Encounter type: subsequent encounter Qualified Code(s): S91.302D - Unspecified open wound, left foot, subsequent encounter (9) Delayed wound healing: CODE(S): T14.8XXD - Other injury of unspecified body region, subsequent encounter (10) Type 2 diabetes mellitus: CODE(S): E11.9 - Type 2 diabetes mellitus without complications QUALIFIERS: Diabetes mellitus care home insulin use: unspecified predatory animal exterminator insulin use status Diabetes mellitus complication status: with circulatory complication Diabetes mellitus complication detail: with peripheral angiopathy with gangrene Qualified Code(s): E11.52 - Type 2 diabetes mellitus with diabetic peripheral angiopathy with gangrene (11) Peripheral arterial occlusive disease: CODE(S): I77.9 - Disorder of arteries and arterioles, unspecified
[2021-06-05 10:16] LABS: Bedside Glucose 117 mg/dL (70-110)
[2021-06-05 10:18] VITALS: BP 156/78; PULSE 59; RESP 16; TEMP 36.4; BMI 23.5
--- NOTE | 2021-06-05 12:44 | PCM.WC.PN ---
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 Nicholson on 06/12/2020. Patient saw Dr. Tenorio June 26, 2020 and was started on 100mg gabapentin TID. She has noticed some improvement in her pain. Patient had further intervention with Dr. Nicholson on October 11, 2020. Patient relates having to be transferred to [facility] for this. 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 Amputation of 4th digit with debridement of 1st and 5th digit ulcerations was performed 07/08/20. 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 Patient underwent left fifth digit amputation with attempted delayed closure of fourth digit amputation site ulceration and with application of amnio fix grafting to all sites by Dr. López on 01/03/2021. The attempt for delayed primary closure of the previous fourth digit amputation site ulceration was not successful and ulceration here remains. Cultures at this time are also positive for Pseudomonas. 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 Cultures from 02/05/2021 were also positive for Pseudomonas. Patient has had multiple rounds of antibiotics and consultation with infectious disease over this infection. Patient is noted to have return of vascular symptom complaints especially to left lower extremity. She has appointment with Dr. Nicholson for reassessment with the understanding she might need possible further intervention. Patient continues care at the wound care center for remaining left foot wounds. Patient is noted to have been approved for [facility] [facility] but was not fully covered and would not be able to cover the remaining financial expense. Patient has had other modalities of treatment to include HBO therapy. She did had a revascularization procedure with Dr. Nicholson on ?18. She is doing well and follow-up in 6 months. She completed hyperbaric oxygen therapy treatment today. She denies drainage the past week. She thinks her ulcer is healed. Progress of Wound: Healed Objective Data Objective Data Vital Signs: Vital Signs Temp Pulse Resp BP 97.5 F L 59 L 16 156/78 H 06/05/21 10:18 06/05/21 10:18 06/05/21 10:18 06/05/21 10:18 Weight: 149 kg Body Mass Index (BMI) 23.5 Lab / Micro Data Labs: Laboratory Results - last 24 hr 06/05/21 07:53: POC Glucose 161 H 06/05/21 10:09: POC Glucose 117 H Physical Exam Extremity Extremity Narrative: no cyanosis, no calf tenderness, diminished pulses muscle wasting noted. no tenderness Amputation lateral left forefoot No fluctuance or bogginess on palpation Skin Skin Narrative: no purulence, no erythema, no streaking, no odor, no infection. Adjacent skin is atrophic. hallux is healed with full epithelialization. Distal and proximal lateral ulcer left foot are healed with full epithelialization. There is no periulcer inflammation or drainage Neuro Neuro Narrative: lack of normal epicritic sensation via light touch consistent with neuropathy Debridement Note Debridement Note Post-Debridement Measurements and Additional Note: Post-Debridement Measurements/Treatment WC - Nurse 1 - General Ulcer Assessment Start: 05/27/21 08:28 Freq: Status: Active Protocol: ESVIN Activity Type Activity Date Activity User E-Sign Co-Sign Detail Recorded Client Recorded Date Recorded By Document 05/29/21 08:48 AK [id number] 05/29/21 08:51 AK Document 06/05/21 10:18 ML [id number] 06/05/21 10:19 ML 05/29/21 06/05/21 08:48 10:18 - Today's Visit Information Type of service Follow-up Visit Follow-up Visit (Physician/RETAIL CUSTOMER SERVICE REPRESENTATIVE (Physician/RETAIL CUSTOMER SERVICE REPRESENTATIVE ) ) Arrival Mode Ambulatory Ambulatory,Cane Transfer Assistance None Patient Identification Verified (Name & Yes Yes ) Patient Requires Transmission-Based No No Precautions Safety Precautions NA Finger Stick Blood Sugar(mg/dl) (if 114 117 indicated): Blood Sugar Done During Done During this Visit this Visit Height and Weight Body Mass Index (BMI) 23.5 23.5 BMI Classification Normal Normal Vital Signs Temperature (97.8 F-99.1 F) 96.3 F L 97.5 F L Temperature Source Temporal Temporal Pulse Rate (60-100) 62 59 L Pulse Location Monitor Monitor Respiratory Rate (12-18) 16 Respiratory rate source Observation Blood Pressure (90/60-120/80) 157/69 H 156/78 H Blood Pressure Mean (mm Hg) 98 104 Source Monitor Monitor Position Sitting Blood Pressure Location Left Arm History Since Last Visit- (Skip if this is Patient's initial visit) Have you changed medications since your No No last visit? Any new allergies or adverse reactions No No Had a fall/change in ADL's that may No No increase risk of falls Signs or symptoms of abuse and/or No No neglect since last visit Have you been in the hospital since your No No last visit? Has dressing in place as prescribed Yes Yes Has compression in place as prescribed Yes Yes Has offloadiing in place as prescribed N/A Yes Experienced any changes in pain level or No No management Left Footwear Surgical Shoe Surgical Shoe with pressure with pressure relief insole relief insole Right Footwear Regular Shoe Regular Shoe Pain Scale: 0-10 Numeric Is Patient Pain Free? Yes WC - Nurse 1 - General Ulcer Measurement Start: 05/27/21 08:28 Freq: Status: Active Protocol: Activity Type Activity Date Activity User E-Sign Co-Sign Detail Recorded Client Recorded Date Recorded By Document 05/29/21 08:48 AK [id number] 05/29/21 08:51 AK Document 06/05/21 10:29 ML [id number] 06/05/21 10:31 ML 05/29/21 06/05/21 08:48 10:29 Wound Center Nurse 1 #3 4th lateral toe/amp site -Combined with other wound No -Current Size (cm) - Length 0.1 0.1 -Current Size (cm) - Width 0.1 0.1 -Current Size (cm) - Depth 0.1 0.1 -Total Square Cm 0.01 0.01 -Photo Taken No -Epithelialization None Present -Tunneling No -Undermining/Tunneling No -Circular Undermining No -Change in Wound Grade/Stage No -Exudate Amt None Present Small -Exudate Type Serosanguineous -Wound Margin Distinct, Outline Attached -Granulation Amt None Present (0 %) -Granulation Quality N/A -Slough/Fibrin No -Necrosis Amt None Present (0 Small (1-33%) %) -Necrotic Tissue Type Adherent Slough -Structure Exposed N/A -Texture (Dot-wound Skin Appearance) No Abnormality, Assessed Assessed -Moisture (Dot-wound Skin Appearance) Assessed,Dry/ Assessed Scaly -Color (Dot-wound Skin Appearance) No Abnormality, Assessed Assessed -Temperature (Dot-wound Skin No Abnormality No Abnormality Appearance) (Pt Warm) (Pt Warm) -Tenderness on Palpation (Dot-wound No No Skin Appearance) -Ulcer Cleansing Rinsed/ Soap and Water Irrigated with Saline -Foul Odor after Cleansing No No -Anesthetic Used 4% Lidocaine 4% Lidocaine Solution Solution,5% Lidocaine Gel #2 L 5th toe AMP site -Combined with other wound No -Current Size (cm) - Length 0.1 -Current Size (cm) - Width 0.1 -Current Size (cm) - Depth 0.1 -Total Square Cm 0.01 -Photo Taken No -Epithelialization None Present -Tunneling No -Undermining/Tunneling No -Circular Undermining No -Change in Wound Grade/Stage No -Exudate Amt None Present -Granulation Amt None Present (0 %) -Granulation Quality N/A -Slough/Fibrin No -Necrosis Amt None Present (0 %) -Structure Exposed N/A -Texture (Dot-wound Skin Appearance) No Abnormality, Assessed -Moisture (Dot-wound Skin Appearance) No Abnormality, Assessed -Color (Dot-wound Skin Appearance) No Abnormality, Assessed -Temperature (Dot-wound Skin No Abnormality Appearance) (Pt Warm) -Tenderness on Palpation (Dot-wound No Skin Appearance) -Ulcer Cleansing Rinsed/ Irrigated with Saline -Foul Odor after Cleansing No -Anesthetic Used 4% Lidocaine Solution Lower Limb Edema Present No Left Calf (cm) 34 Left Ankle (cm) 22 WC - Nurse 2 - General Ulcer CM Notes Start: 05/27/21 08:28 Freq: Status: Active Protocol: Activity Type Activity Date Activity User E-Sign Co-Sign Detail Recorded Client Recorded Date Recorded By Document 05/29/21 09:00 [id number] 05/29/21 09:03 Document 06/05/21 10:39 [id number] 06/05/21 10:46 05/29/21 06/05/21 09:00 10:39 Wound Center Nurse 2 #3 4th lateral toe/amp site -Time 09:00 -Correct Patient Yes No -Correct Side, Site, Position Yes No -Correct Procedure Yes No -Procedure Performed Yes No -Type of Procedure Debridement -Clinical Debridement Subcutaneous -Tissue Removed Subcutaneous -Post Debridement (cm) - Length 0.2 0 -Post Debridement (cm) - Width 0.2 0 -Post Debridement (cm) - Depth 0.1 0 -Total Square (Post) (cm) 0.04 0 -Area of Debridement (cm) - Length 0.2 0 -Area of Debridement (cm) - Width 0.2 0 -Total Square (Area) (cm) 0.04 0 -Tunneling No -Undermining/Tunneling No -Circular Undermining No -Wound/Ulcer Outcome Not Healed Healed- Epithelialized -Ulcer Cleansing Rinsed/ Irrigated with Saline -Foul Odor after Cleansing No -Bioengineered Tissue No -Bleeding Controlled with Pressure -Offloading Yes -Type of Offloading Surgical Shoe -Treatment Response Procedure Tolerated Well -Debridement - Subq, 1st 20sq cm Yes #2 L 5th toe AMP site -Correct Patient No -Correct Side, Site, Position No -Correct Procedure No -Procedure Performed No -Post Debridement (cm) - Length 0 -Post Debridement (cm) - Width 0 -Post Debridement (cm) - Depth 0 -Total Square (Post) (cm) 0 -Area of Debridement (cm) - Length 0 -Area of Debridement (cm) - Width 0 -Total Square (Area) (cm) 0 Pain Scale: 0-10 Numeric Is Patient Pain Free? Yes Yes - Nurse 3 - General Ulcer D/C NN Start: 05/27/21 08:28 Freq: Status: Active Protocol: Activity Type Activity Date Activity User E-Sign Co-Sign Detail Recorded Client Recorded Date Recorded By Document 05/29/21 09:11 SHEILA [id number] 05/29/21 09:13 DL Document 06/05/21 10:46 RICHI [id number] 06/05/21 10:47 RICHI 05/29/21 06/05/21 09:11 10:46 Wound Care Nurse 3 #3 4th lateral toe/amp site -Ulcer Cleansing Rinsed/ Irrigated with Saline -Foul Odor after Cleansing No -Primary Dressing Applied C Hydrogel ($) -Primary Dressing Covered/Secured with Dry Gauze & Roll Gauze, Secured with Tape Treatment Response Procedure Tolerated Well Pain Scale: 0-10 Numeric Is Patient Pain Free? Yes Yes - Visit Discharge Discharge Condition Stable Stable Ambulatory Status Ambulatory Ambulatory Transportation Private Auto Private Auto Medication Reconcilliation completed & Yes provided to patient/care provider Clinical Summary of Care Provided Yes Notes: dry gauze applied only today. Assessment/Plan Assessment/Plan (1) Non-pressure chronic ulcer of other part of left foot with necrosis of bone: CODE(S): L97.524 - Non-pressure chronic ulcer of other part of left foot with necrosis of bone (2) Non-pressure chronic ulcer of other part of left foot with fat layer exposed: CODE(S): L97.522 - Non-pressure chronic ulcer of other part of left foot with fat layer exposed (3) Osteomyelitis: CODE(S): M86.9 - Osteomyelitis, unspecified QUALIFIERS: Osteomyelitis type: subacute Osteomyelitis location: foot Laterality: left Qualified Code(s): M86.272 - Subacute osteomyelitis, left ankle and foot (4) PAD (peripheral artery disease): CODE(S): I73.9 - Peripheral vascular disease, unspecified (5) History of tobacco abuse: CODE(S): Z87.891 - Personal history of nicotine dependence (6) Ischaemic rest pain of lower extremity: CODE(S): M79.606 - Pain in leg, unspecified; I99.8 - Other disorder of circulatory system (7) Delayed wound healing: CODE(S): T14.8XXD - Other injury of unspecified body region, subsequent encounter (8) Amputated toe: CODE(S): S98.139A - Complete traumatic amputation of one unspecified lesser toe, initial encounter QUALIFIERS: Laterality: left Qualified Code(s): S98.132A - Complete traumatic amputation of one left lesser toe, initial encounter (9) Type 2 diabetes mellitus with diabetic polyneuropathy: CODE(S): E11.42 - Type 2 diabetes mellitus with diabetic polyneuropathy QUALIFIERS: Diabetes mellitus laboratory development technician insulin use: without laboratory development technician use Qualified Code(s): E11.42 - Type 2 diabetes mellitus with diabetic polyneuropathy (10) Eschar of foot: CODE(S): R23.4 - Changes in skin texture PLAN: Patient seen and examined today. case was discussed. Ulcers are healed with full epithelialization. I recommend she continues to cover her left foot site with gauze (dry) to protect the skin remodels the next week. If there is continued lack of drainage for 1 week it is okay to discontinue all dressings at that time. Home health will come out this Thursday one last time. She had recent vascular surgery intervention on with Dr. Nicholson again.To follow up as scheduled. Her prior vascular studies 03/11/21 show bilateral DP and PT monphasic pulses. JENY left 0.4 at PT and 1.35 at DP and on right 0.66 at PT and 0.9 at DP with TBI of 0.19. No TBI obtained on left. She was previously treated with Levaquin per Dr. Skaggs, infectious disease specialist. Patient had cultures obtained 02/05/2021 demonstrating Pseudomonas. Discussed possibility of colonization with Pseudomonas with patient and family members. Patient has had Pseudomonas consistently on her wound cultures for the last several months with multiple rounds of treatment. Culture of 5th metatarsal bone 03/05/21 was positive for PsAg. She was reassured no local signs infection noted today. To continue with diligent antibacterial soap and water wash with wound dressing changes. She was concerned about purulence and infection however after debridement under the eschar it appears there is collection of fibrous tissue. She was advised to monitor for redness streaking odor or deterioration in the next week. Reviewed proper wound care with patient. Discussed with the patient the importance of offloading with her surgical shoe until follow-up in 2 to 3 weeks. She has completed a course of hyperbaric oxygen therapy which helped her heal. Patient is to follow-up in 2 weeks. This note was generated with [employer] dictation software. It may contain incorrect words, spelling, and punctuation that were not noted in checking the note before signing. The medical decision making level is moderate. There is noted moderate risk of morbidity after considering this treatment plan and diagnostic data. Considerations were given to prescription management, decisions regarding surgical options, or social determinants of health. The problems addressed require a moderate decision making level which includes one or more chronic illnesses (w/ exacerbation, progression, or side effects), two or more stable chronic illnesses, one undiagnosed new problem w/ uncertain prognosis, one acute illness with systemic symptoms, or one acute complicated injury.
== END 2021-06-24 23:59 ==
LOC: WC 08:00
PROVIDERS: PCP Family Medicine; Referring Provider Podiatrist; Visit Provider Podiatrist
DX: E11.621 Type 2 diabetes mellitus with foot ulcer (principal); E11.52 Type 2 diabetes mellitus with diabetic peripheral angiopathy with gangrene; Z89.429 Acquired absence of other toe(s), unspecified side; L97.524 Non-pressure chronic ulcer of other part of left foot with necrosis of bone; L97.522 Non-pressure chronic ulcer of other part of left foot with fat layer exposed; M86.272 Subacute osteomyelitis, left ankle and foot; E11.42 Type 2 diabetes mellitus with diabetic polyneuropathy; E11.59 Type 2 diabetes mellitus with other circulatory complications; I73.9 Peripheral vascular disease, unspecified; S98.132A Complete traumatic amputation of one left lesser toe, initial encounter; Z87.891 Personal history of nicotine dependence; B96.5 Pseudomonas (aeruginosa) (mallei) (pseudomallei) as the cause of diseases classified elsewhere; M79.606 Pain in leg, unspecified; I99.8 Other disorder of circulatory system; R23.4 Changes in skin texture
CPT/HCPCS: 11042; 69210; 82962; 99183; 99213; G0277; G0463

== ENCOUNTER 2021-06-26 09:00 | Outpatient (RCR) | payer MEDICARE, SELFPAY ==
[2021-06-25 00:28] VITALS: BP 156/78; PULSE 59; RESP 16; TEMP 36.4; BMI 23.5
[2021-06-26 08:15] VITALS: BP 92/58; PULSE 56; RESP 18; TEMP 36.2; BMI 23.5
--- NOTE | 2021-06-26 08:17 | WC ---
pt wounds appear healed no open area noted
--- NOTE | 2021-06-26 11:21 | PN.PCM_ITS ---
History of Present Illness Date of Service: 06/26/21 Chief Complaint: Diabetic foot ulceration?left foot Left fourth and fifth digit amputation site ulceration Peripheral arterial occlusive disease History of Wound: Patient had intervention done by Dr. Nicholson on 06/12/2020. Patient saw Dr. Tenorio June 26, 2020 and was started on 100mg gabapentin TID. She has noticed some improvement in her pain. Patient had further intervention with Dr. Nicholson on October 11, 2020. Patient relates having to be transferred to [facility] for this. 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 Amputation of 4th digit with debridement of 1st and 5th digit ulcerations was performed 07/08/20. 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 Patient underwent left fifth digit amputation with attempted delayed closure of fourth digit amputation site ulceration and with application of amnio fix grafting to all sites by Dr. López on 01/03/2021. The attempt for delayed primary closure of the previous fourth digit amputation site ulceration was not successful and ulceration here remains. Cultures at this time are also positive for Pseudomonas. 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 Cultures from 02/05/2021 were also positive for Pseudomonas. Patient has had multiple rounds of antibiotics and consultation with infectious disease over this infection. Patient is noted to have return of vascular symptom complaints especially to left lower extremity. She has appointment with Dr. Nicholson for reassessment with the understanding she might need possible further intervention. Patient continues care at the wound care center for remaining left foot wounds. Patient is noted to have been approved for [facility] but was not fully covered and would not be able to cover the remaining financial expense. Patient has had other modalities of treatment to include HBO therapy. She did had a revascularization procedure with Dr. Nicholson on ?18. She is doing well and follow-up in 6 months. She completed hyperbaric oxygen therapy treatment today. She reports her ulcer site remains healed. She is continued offloading applied to dry gauze. Objective Data Objective Data Vital Signs: Vital Signs Temp Pulse Resp BP 97.2 F L 56 L 18 92/58 L 06/26/21 08:15 06/26/21 08:15 06/26/21 08:15 06/26/21 08:15 Weight: 149 kg Body Mass Index (BMI) 23.5 Physical Exam Extremity Extremity Narrative: no cyanosis, no calf tenderness, diminished pulses muscle wasting noted. no tenderness Amputation lateral left forefoot No fluctuance or bogginess on palpation Skin Skin Narrative: no purulence, no erythema, no streaking, no odor, no infection. Adjacent skin is atrophic. hallux is healed with full epithelialization. Distal and proximal lateral ulcer left foot are healed with full epithelialization. There is no periulcer inflammation or drainage Neuro Neuro Narrative: lack of normal epicritic sensation via light touch consistent with neuropathy Assessment/Plan Assessment/Plan (1) Non-pressure chronic ulcer of other part of left foot with necrosis of bone: CODE(S): L97.524 - Non-pressure chronic ulcer of other part of left foot with necrosis of bone (2) Non-pressure chronic ulcer of other part of left foot with fat layer exposed: CODE(S): L97.522 - Non-pressure chronic ulcer of other part of left foot with fat layer exposed (3) Osteomyelitis: CODE(S): M86.9 - Osteomyelitis, unspecified QUALIFIERS: Osteomyelitis type: subacute Osteomyelitis location: foot Laterality: left Qualified Code(s): M86.272 - Subacute osteomyelitis, left ankle and foot (4) PAD (peripheral artery disease): CODE(S): I73.9 - Peripheral vascular disease, unspecified (5) History of tobacco abuse: CODE(S): Z87.891 - Personal history of nicotine dependence (6) Ischaemic rest pain of lower extremity: CODE(S): M79.606 - Pain in leg, unspecified; I99.8 - Other disorder of circulatory system (7) Amputated toe: CODE(S): S98.139A - Complete traumatic amputation of one unspecified lesser toe, initial encounter QUALIFIERS: Laterality: left Qualified Code(s): S98.132A - Complete traumatic amputation of one left lesser toe, initial encounter (8) Type 2 diabetes mellitus with diabetic polyneuropathy: CODE(S): E11.42 - Type 2 diabetes mellitus with diabetic polyneuropathy QUALIFIERS: Diabetes mellitus intermediate frame tender insulin use: without intermediate frame tender use Qualified Code(s): E11.42 - Type 2 diabetes mellitus with diabetic polyneuropathy PLAN: Patient seen and examined today. case was discussed. Ulcers are healed with full epithelialization. To discontinue all dressing care and to progress back into a properly fitted shoe in depth, length, and width. She had recent vascular surgery intervention on with Dr. Nicholson again.To follow up as scheduled. Her prior vascular studies 03/11/21 show bilateral DP and PT monphasic pulses. JENY left 0.4 at PT and 1.35 at DP and on right 0.66 at PT and 0.9 at DP with TBI of 0.19. No TBI obtained on left. She was previously treated with Levaquin per Dr. Skaggs, infectious disease specialist. Patient had cultures obtained 02/05/2021 demonstrating Pseudomonas. Discussed possibility of colonization with Pseudomonas with patient and family members. Patient has had Pseudomonas consistently on her wound cultures for the last several months with multiple rounds of treatment. Culture of 5th metatarsal bone 03/05/21 was positive for PsAg. She was reassured no local signs infection noted today. Reviewed proper wound care with patient. Discussed with the patient the importance of offloading with her surgical shoe until follow-up in 2 to 3 weeks. She has completed a course of hyperbaric oxygen therapy which helped her heal. She is discharged from the wound healing center at this time and will follow up as needed. This note was generated with [employer] dictation software. It may contain incorrect words, spelling, and punctuation that were not noted in checking the note before signing. The medical decision making level is low. There is noted low risk of morbidity after considering this treatment plan and diagnostic data. The problems addressed require a low medical decision making level which includes two or more minor problems, a stable chronic illness, or an acute uncomplicated illness or injury.
== END 2021-06-26 11:04 | disposition home or self-care (01) ==
LOC: WC 09:00
PROVIDERS: PCP Family Medicine; Referring Provider Podiatrist; Visit Provider Podiatrist
DX: E11.621 Type 2 diabetes mellitus with foot ulcer (principal); E11.51 Type 2 diabetes mellitus with diabetic peripheral angiopathy without gangrene; Z89.429 Acquired absence of other toe(s), unspecified side; L97.524 Non-pressure chronic ulcer of other part of left foot with necrosis of bone; M86.272 Subacute osteomyelitis, left ankle and foot; E11.42 Type 2 diabetes mellitus with diabetic polyneuropathy; S98.132A Complete traumatic amputation of one left lesser toe, initial encounter; M79.606 Pain in leg, unspecified; Z87.891 Personal history of nicotine dependence; I99.8 Other disorder of circulatory system
CPT/HCPCS: 99213; G0463

== ENCOUNTER → 2021-09-16 | Outpatient (CLI) | payer MEDICARE, SELFPAY ==
[2021-09-16 12:11] LABS: Absolute Lymphocyte Count 2.08 X10^3/uL (0.83-4.51); Absolute Neutrophil Count 4.9 X10^3/uL (2.0-7.7); Basophil# 0.07 X10^3/uL; Basophil% 0.9 % (0-1); Eosinophil# 0.39 X10^3/uL; Eosinophils% 4.8 % (0-5); Hematocrit 41.5 % (37-47); Hemoglobin 13.6 g/dL (12.0-15.0); Lymphocyte # 2.08 X10^3/ul (0.83-4.51); Lymphocyte % 25.8 % (19-41); Mean Corp Hgb Conc 32.8 g/dL (32-36); Mean Corpuscular Hgb 30.3 pg (27.0-32.0); Mean Corpuscular Volume 92.4 fL (81-99); Mean Platelet Vol. 9.5 fl (6.2-12.0); Monocyte# 0.56 X10^3/uL; Monocyte% 6.9 % (0-10); NRBC Flagged by Analyzer 0 % (0-5); Neutrophil # 4.94 X10^3/uL (2.7-7.7); Neutrophil % 61.4 % (47-70); Platelet Count 344 K/mm3 (150-450); RBC Distribution Width CV 13.1 % (11.6-14.6); RBC Distribution Width SD 44.4 fl (35.1-43.9); Red Blood Count 4.49 M/mm3 (4.2-5.4); White Blood Count 8.1 K/mm3 (4.4-11.0)
[2021-09-16 12:37] LABS: Vitamin B12 1213 pg/mL (211-911); Vitamin D,25 Hydroxy 37.8 ng/mL
[2021-09-16 13:17] LABS: Hemoglobin A1c 6.4 % (3.8-5.6)
[2021-09-16 13:21] LABS: AST(SGOT) 19 U/L (15-37); Alanine Aminotransfer ALT/SGPT 23 U/L (13-56); Albumin, Serum 3.8 g/dL (3.2-5.0); Alkaline Phosphatase 84 U/L (45-117); Anion Gap 8 (5-15); BUN 26 mg/dL (7-18); BUN/Creat Ratio 30.8 RATIO (10-20); Calcium,Total 9.8 mg/dL (8.5-10.1); Chloride 103 mmol/L (98-107); Creatinine, Serum 0.84 mg/dL (0.55-1.02); EST Glomerular Filtration Rate 68 mL/min (>60); Est Glom Filt Rate - Afr Amer 82 mL/min (>60); Glucose 113 mg/dL (74-106); Iron 172 ug/dL (50-170); Potassium 4.4 mmol/L (3.5-5.1); Protein, Total 7.8 g/dL (6.4-8.2); Sodium Level 137 mmol/L (136-145); Thyroid Stim Hormone (TSH) 2.74 uIU/mL (0.358-3.74)
== END | disposition home or self-care (01) ==
LOC: MTLAB 09:26
PROVIDERS: PCP Family Medicine; Referring Provider Family Medicine; Visit Provider Family Medicine
DX: R53.83 Other fatigue (principal); E11.40 Type 2 diabetes mellitus with diabetic neuropathy, unspecified; D64.9 Anemia, unspecified
CPT/HCPCS: 36415; 80053; 82306; 82607; 83036; 83540; 84443; 85025

== ENCOUNTER → 2021-10-16 | Outpatient (CLI) | payer MEDICARE, SELFPAY | END | disposition home or self-care (01) | LOC: OPBI 12:45 | PROVIDERS: PCP Family Medicine; Visit Provider Family Medicine | DX: R35.0 Frequency of micturition (principal) | CPT/HCPCS: 81001; 87086; 87088 ==

== ENCOUNTER → 2022-01-01 | Outpatient (CLI) | payer MEDICARE, SELFPAY ==
--- NOTE | 2022-01-01 09:55 | CDU_ITS ---
Reason For Study: Carotid stenosis Rt. Velocities/BP Lt. Velocities/BP Subclavian artery 47.6/5.8 cm/sec. Prox CCA 106.5/17 cm/sec. Prox CCA 18.7/13.3 cm/sec. Mid CCA 108.3/20.6 cm/sec. Mid CCA 16.2/11.4 cm/sec. Dist CCA 113.8/17 cm/sec. Dist CCA 9.9/6.7 cm/sec. Prox ICA 134.5/13.8 cm/sec. Prox ICA 14.4 cm/sec. Mid ICA 110.4/18.2 cm/sec. Mid ICA 29.6 cm/sec. Dist ICA 149.9/33.6 cm/sec. Dist ICA 33.2/1.5 cm/sec. Lt. ICA/CCA = 1.38. Rt. ICA/CCA = 2.05. Prox ECA 171.8/7.2 cm/sec. Prox ECA 23.1/5.1 cm/sec. Lt. Vert. 71.6 cm/sec. Rt. Vert. 57.9/7.8 cm/sec. Right Extracranial There is homogeneous, smooth atherosclerotic plaque noted in the right common carotid artery. There is heterogeneous, irregular atherosclerotic plaque noted in the right internal carotid artery. The atherosclerotic plaque causes acoustic shadowing. There is heterogeneous, irregular atherosclerotic plaque noted in the right external carotid artery. Antegrade flow is noted in the right vertebral artery. Abnormal waveform morphology noted in the right CCA and ICA. Left Extracranial There is heterogeneous, irregular atherosclerotic plaque noted in the left common carotid artery. There is heterogeneous, irregular atherosclerotic plaque noted in the left internal carotid artery. There is heterogeneous, irregular atherosclerotic plaque noted in the left external carotid artery. Antegrade flow is noted in the left vertebral artery. Procedure Carotid Duplex 99928. This is a Carotid Duplex examination using B-mode, color flow and specral Doppler. Exam performed in department. VL/Carotid Duplex Ultrasound Interpretation Summary Extensive calcific plaque involving the right carotid bulb proximal internal an d external carotid arteries. Abnormal depressed flow rates and waveforms throughout the right common carotid internal and external carotid arteries. Findings might suggest a more proximal stenosis. Cli nical correlation would be appropriate. Heterogenous irregular plaque at the proximal left internal carotid artery with 50 to 69% stenosis of the left internal carotid Less than 50% stenosis of the left external carotid Patent antegrade vertebrals bilaterally Her right carotid changes are new from her previous examination of January 02 021 Ordering Physician: Noble Ball Referring Physician: Mc Marks MD Performed By: Daina Arvizu RVT
== END | disposition home or self-care (01) ==
LOC: CVS 09:54
PROVIDERS: PCP Family Medicine; Referring Provider Surgery; Visit Provider Surgery
DX: I65.23 Occlusion and stenosis of bilateral carotid arteries (principal)
CPT/HCPCS: 93880

== ENCOUNTER → 2022-01-02 | Outpatient (CLI) | payer MEDICARE, SELFPAY ==
[2022-01-02 09:40] LABS: Anion Gap 3 (5-15); BUN 15 mg/dL (7-18); Calcium,Total 10.3 mg/dL (8.5-10.1); Chloride 101 mmol/L (98-107); Creatinine, Serum 0.75 mg/dL (0.55-1.02); EST Glomerular Filtration Rate 78 mL/min (>60); Est Glom Filt Rate - Afr Amer 94 mL/min (>60); Glucose 108 mg/dL (74-106); Potassium 4.3 mmol/L (3.5-5.1); Sodium Level 136 mmol/L (136-145)
== END | disposition home or self-care (01) ==
LOC: PAVLAB 09:04
PROVIDERS: PCP Family Medicine; Visit Provider Surgery
DX: I65.29 Occlusion and stenosis of unspecified carotid artery (principal)
CPT/HCPCS: 36415; 80048

== ENCOUNTER → 2022-01-14 | Outpatient (CLI) | payer MEDICARE, SELFPAY ==
--- NOTE | 2022-01-14 12:03 | CT_ITS ---
STUDY: CTA NECK WITH CONTRAST REASON FOR EXAM: Female, 86 years old. Carotid stenosis RADIATION DOSAGE (If Supplied By Facility): CTDIvol = ( 22.53 ) mGy, DLP = ( 1696.37 ) mGycm TECHNIQUE: CT angiography with multi-detector data acquisition was performed from the aortic arch to the skull base following intravenous administration of IV 100mL Isovue-300. MIP images were reconstructed from the axial data set. Post-processing of the angiographic images was performed, with multiplanar reformation and 3D reconstruction. Individualized dose optimization techniques were used for this CT. COMPARISON: Comparison is made with prior study dated 09/24/2012. FINDINGS: Heterogeneous enlargement of the thyroid gland. AORTIC ARCH: There is atherosclerotic calcific plaque formation of the aortic arch and great vessels arising from the aortic arch, without a hemodynamically significant stenosis. There is a normal origin of the brachiocephalic, left common carotid, and left subclavian arteries. Atherosclerotic plaque formation with stenosis at the origin of the right brachiocephalic artery as well as the origin of the left common carotid artery and left subclavian artery. RIGHT CAROTID ARTERIES: Normal right common carotid artery (CCA). Normal right common carotid bulb. There is severe atherosclerotic plaque formation of the origin of the right internal carotid artery with a near complete occlusion. Normal visualized cervical portion of the right internal carotid artery. Normal origin of the right external carotid artery (ECA). LEFT CAROTID ARTERIES: Normal left common carotid artery (CCA). Normal left common carotid bulb. There is mild atherosclerotic plaque formation of the origin of the left internal carotid artery with less than 50% cross sectional diameter stenosis. The patient is status post left carotid endarterectomy. Normal visualized cervical portion of the left internal carotid artery. Normal origin of the left external carotid artery (ECA). VERTEBRAL ARTERIES: There is enhancement within the bilateral vertebral arteries with a small right vertebral artery, and a dominant left vertebral artery. CT/CTA Neck W/WO Contrast IMPRESSION: High-grade stenosis at the origin of the right internal carotid artery. Less than 50% narrowing of the left internal carotid artery at its origin. Atherosclerotic plaque formation of the brachiocephalic artery with this moderate degree of stenosis. Electronically Signed: Rigo Avalos MD at 15:23 EDT ,
--- NOTE | 2022-01-14 12:03 | CT_ITS ---
STUDY: CTA CHEST REASON FOR EXAM: Female, 86 years old. Arterial stenosis -- looking for central arterial stenosis/occlusion RADIATION DOSAGE (If Supplied By Facility): CTDIvol = ( 22.53 ) mGy, DLP = ( 1969.37 ) mGycm TECHNIQUE: The examination was performed with the intravenous administration of IV 100mL Isovue-300. Post-processing of the angiographic images was performed, with multiplanar reformation and 3D reconstruction. Individualized dose optimization techniques were used for this CT. COMPARISON: None. FINDINGS: Normal enhancement of the main pulmonary artery and right and left pulmonary arteries. Normal enhancement of the bilateral peripheral pulmonary arteries. There is no demonstrated pulmonary embolism. There is atherosclerotic calcification of the aortic arch with tortuosity. Calcific plaque formation at the origin of the left subclavian artery and right brachiocephalic artery. Calcific plaque at the origin of the left common carotid artery. There is no demonstrated aortic dissection. There are calcifications of the coronary arteries. Normal mediastinum. Normal hilar regions. Normal visualized trachea and bronchi. Hyperinflation. Mild degree of emphysematous changes. Normal pleura. Normal chest wall structures. There are degenerative changes of thoracic spine. Increased kyphosis. Circumferential wall thickening of the distal esophagus. Narrowing of the esophageal lumen. Correlation with endoscopy is recommended if clinically indicated. CT/CTA Chest W/WO Contrast IMPRESSION: No evidence of a pulmonary embolism. Atherosclerotic ossific plaques of the aortic arch and the great vessels of the neck. Emphysematous changes. Circumferential wall thickening of the distal esophagus. Clinical correlation recommended. Electronically Signed: Rigo Avalos MD at 15:17 EDT ,
== END | disposition home or self-care (01) ==
LOC: CT 12:01
PROVIDERS: PCP Family Medicine; Visit Provider Surgery
DX: I65.29 Occlusion and stenosis of unspecified carotid artery (principal); I77.1 Stricture of artery
CPT/HCPCS: 70498; 71275; Q9967; A4216

== ENCOUNTER → 2022-02-07 | Outpatient (CLI) | payer MEDICARE, SELFPAY ==
--- NOTE | 2022-02-07 06:06 | ECHOCS_ITS ---
Reason For Study: CAD/ASHD Procedure This was a 2D Doppler, Color Flow transthoracic echocardiogram. The study was technically difficult. Contrast injection was performed. Exam performed in department. Left Ventricle Normal LV size. Left ventricular systolic function is normal. The estimated ejection fraction is 65 %. No evidence for diastolic dysfunction. No regional wall motion abnormalities noted. Right Ventricle Normal RV size. Normal systolic function. Atria The left atrium is mildly enlarged. Normal right atrium. No doppler evidence for ASD. Mitral Valve There is mild mitral annular calcification. Extension of the mitral annular calcification on the base of the posterior mitral valve leaflet. Mild (1+) eccentric mitral valve insufficiency. Tricuspid Valve Normal tricuspid valve. Mild tricuspid valve insufficiency. Right ventricular systolic pressure estimated to be 27 mmHg. Aortic Valve Trisinus/trileaflet aortic valve. Moderate focal aortic valve calcification. Mild aortic stenosis. Pulmonic Valve The pulmonic valve is not well visualized. Mild (1+) pulmonic valve insufficiency. Great Vessels Normal sized aortic root. Calcified aortic root. Pericardium/Pleural Trivial pericardial effusion. There are no echocardiographic indications of cardiac tamponade. Medication Diluted definity 2ml given slow IV push to enhance endocardial definition. MMode/2D Measurements & Calculations LVIDd: 4.3 cm IVSd: 0.95 cm LVOT diam: 2.0 cm LVIDs: 2.8 cm LVPWd: 0.92 cm RVDd: 3.5 cm FS: 34.1 % LVOT area: 3.0 cm2 Ao root diam: 2.8 cm LAV(MOD-bp): 36.2 ml LVAd ap4: 26.9 cm2 LAV(MOD-bp) Indexed: 21.5 ml/m2 LVLd ap4: 7.1 cm LAV(MOD-sp2): 33.1 ml EDV(MOD-sp4): 84.5 ml LAV(MOD-sp4): 36.6 ml EDV(sp4-el): 86.6 ml LVAs ap4: 13.8 cm2 LVLs ap4: 6.0 cm ESV(MOD-sp4): 27.4 ml ESV(sp4-el): 27.2 ml EF(MOD-sp4): 67.5 % EF(sp4-el): 68.6 % SV(MOD-sp4): 57.1 ml SV(sp4-el): 59.4 ml Aortic Valve Planimetry: 1.6 cm2 LA A4 area: 15.1 cm2 LA dimension(2D): 3.4 cm RA A4 area: 13.4 cm2 Time Measurements MV dec time: 0.27 sec Doppler Measurements & Calculations MV E max arnoldo: 93.7 cm/sec Lat Peak E' Arnoldo: 8.6 cm/sec Med Peak E' Arnoldo: 6.9 cm/sec MV A max arnoldo: 99.8 cm/sec E/E' lat: 10.9 E/E' med: 13.5 MV E/A: 0.94 Ao V2 max: 129.4 cm/sec LV V1 max: 73.3 cm/sec SV(LVOT): 66.5 ml Ao max P.7 mmHg LV V1 max P.1 mmHg Ao V2 mean: 94.2 cm/sec LV V1 mean P.3 mmHg Ao mean P.0 mmHg LV V1 mean: 55.5 cm/sec Ao V2 VTI: 36.6 cm LV V1 VTI: 22.2 cm SARA(I,D): 1.8 cm2 SARA(V,D): 1.7 cm2 PA V2 max: 98.8 cm/sec PI end-d arnoldo: 92.0 cm/sec TR max arnoldo: 242.8 cm/sec TR max P.7 mmHg ECHO/Echo Complete W/ Contrast Interpretation Summary The study was technically difficult. Contrast injection was performed. Left ventricular systolic function is normal. The estimated ejection fraction is 65 %. The left atrium is mildly enlarged. There is mild mitral annular calcification. Extension of the mitral annular calcification on the base of the posterior mitr al valve leaflet. Mild (1+) eccentric mitral valve insufficiency. Mild tricuspid valve insufficiency. Moderate focal aortic valve calcification. Mild aortic stenosis. Mild (1+) pulmonic valve insufficiency. Calcified aortic root. Trivial pericardial effusion. There are no echocardiographic indications of cardiac tamponade. Right ventricular systolic pressure estimated to be 27 mmHg. No evidence for diastolic dysfunction. Ordering Physician: Eric Wolfe Referring Physician: VENKAT WELLS Performed By: Jacki Ruby RDCS
--- NOTE | 2022-02-07 08:46 | STRESSREP ---
Stress Test Report Date: 02-07-2022 Procedure: Pharmacologic stress nuclear imaging study Indications: CAD; PCI; PAD; preoperative evaluation Consent: Per the patient Procedure: The patient underwent pharmacologic (Regadenoson 0.4mg ) evaluation with a peak heart rate of 76 beats per minute (56%predicted maximal heart rate) and a peak blood pressure of 140/62 mmHg. The baseline ECG demonstrated normal sinus rhythm; right bundle branch block. The peak pharmacologic ECG demonstrated continued right bundle branch block with no obvious ECG changes. There was an isolated PVC in recovery. There was no complaint of chest discomfort during pharmacologic infusion or recovery. The examination was discontinued secondary to completion of protocol. Impression: 1. Pharmacologic (Regadenoson) evaluation 2. Peak pharmacologic ECG with continued right bundle branch block with no obvious ECG changes. 3. There was an isolated PVC in recovery. 4. Nuclear images pending Myocardial perfusion imaging study: Technique: The patient was injected with 11.2 millicuries of technetium 99m Cardiolite and subsequently rest SPECT Cardiolite nuclear imaging was obtained in the horizontal long, vertical long, and short axis views. The patient underwent pharmacologic (Regadenoson) evaluation with a peak heart rate of 76 beats per minute (56% percent predicted maximal heart rate) and a peak blood pressure of 140/62 mmHg. The patient was injected with 33.1 millicuries of technetium 99m Cardiolite and subsequently stress SPECT Cardiolite nuclear imaging was obtained in the horizontal long, vertical long, and short axis views. A gated Cardiolite study at peak stress was obtained. Interpretation: Rest and stress SPECT Cardiolite nuclear imaging status post realignment, normalization, and attenuation correction demonstrate relative uniform tracer uptake and myocardial perfusion appearing within normal limits. There is end systolic thickening and brightening. The gated Cardiolite study demonstrates myocardial thickening and inward wall motion. The reported LVEF is 81%. Impression: 1. Rest and stress SPECT Cardiolite nuclear imaging demonstrate relative uniform tracer uptake and myocardial perfusion appearing within normal limits. 2. The gated Cardiolite study reports an LVEF of 81%. This note was generated with [employer] software. It may contain incorrect words, spelling, and punctuation that were not noted in checking the note before signing.
== END | disposition home or self-care (01) ==
LOC: CVS 06:05
PROVIDERS: PCP Family Medicine; Referring Provider Internal Medicine Cardiovascular Disease; Visit Provider Internal Medicine Cardiovascular Disease
DX: I25.10 Atherosclerotic heart disease of native coronary artery without angina pectoris (principal); Z95.5 Presence of coronary angioplasty implant and graft; Z01.810 Encounter for preprocedural cardiovascular examination; I45.10 Unspecified right bundle-branch block; I65.23 Occlusion and stenosis of bilateral carotid arteries
CPT/HCPCS: 78452; 93017; 93306; A9500; Q9957; A4216; C8929; J2785

== ENCOUNTER 2022-02-24 05:18 | Inpatient (IN) | payer MEDICARE, SELFPAY ==
[2022-02-17 12:23] LABS: Hematocrit 39.6 % (37-47); Hemoglobin 13.1 g/dL (12.0-15.0); Mean Corp Hgb Conc 33.1 g/dL (32-36); Mean Corpuscular Hgb 31.1 pg (27.0-32.0); Mean Corpuscular Volume 94.1 fL (81-99); Mean Platelet Vol. 9.3 fl (6.2-12.0); Platelet Count 350 K/mm3 (150-450); RBC Distribution Width CV 12.7 % (11.6-14.6); RBC Distribution Width SD 43.5 fl (35.1-43.9); Red Blood Count 4.21 M/mm3 (4.2-5.4); White Blood Count 7.3 K/mm3 (4.4-11.0)
[2022-02-17 12:43] LABS: Hemoglobin A1c 6.4 % (3.8-5.6)
[2022-02-17 12:48] LABS: Partial Thromboplast Time 31.4 Seconds (24.1-36.2); Prothrombin Time (Protime)PT. 12.9 SECONDS (11.7-14.9)
[2022-02-17 13:35] LABS: Anion Gap 9 (5-15); BUN 20 mg/dL (7-18); BUN/Creat Ratio 25.1 RATIO (10-20); Calcium,Total 9.7 mg/dL (8.5-10.1); Chloride 101 mmol/L (98-107); EST Glomerular Filtration Rate 73 mL/min (>60); Est Glom Filt Rate - Afr Amer 88 mL/min (>60); Glucose 99 mg/dL (74-106); Potassium 4.4 mmol/L (3.5-5.1); Sodium Level 139 mmol/L (136-145)
[2022-02-17 13:40] LABS: AST(SGOT) 16 U/L (15-37); Alanine Aminotransfer ALT/SGPT 19 U/L (13-56); Albumin, Serum 3.9 g/dL (3.2-5.0); Alkaline Phosphatase 70 U/L (45-117); Bilirubin, Direct 0.12 mg/dL (0.00-0.30); Globulin 3.6 g/dL (2.2-4.2); Protein, Total 7.5 g/dL (6.4-8.2)
--- NOTE | 2022-02-20 14:39 | CASEMGMT ---
[facility] Assessment: TC to pt for initial transition planning/care coordination assessment. RN LINDA introduced self and role at [facility], pt voices understanding and consents to assessment. Care providers, pharmacy, and demographics verified/updated. Admitting Dx: Carotid endarterectomy with bovine patch angioplasty and arterial line monitoring, right PCP:Selina Specialists:Quinn, surgeon; Aiden, cardio [facility] Pres[facility] Benefit: yes LW/HPOA: Pt states she has a LW/DPOA and the hospital should have it on file. Made her aware that it is not seen in her chart. She is aware she can bring it in to be scanned in but pt states she does not know where her copies are. She states her DPOA is her dtrs and she does not know which is primary. Dtrs are Alejandra Reyes and Jessie Maza. LNOK: Alejandra Reyes, dtr; Jessie Maza, dtr Living Arrangements: Pt lives with dtr Jessie kristian but will be recovering at dtr Alejandra's home that is a single story with 2 steps to enter. Pt reports she is I in ADL's and denies concerns at home. Transportation: Pt drives self and denies concerns with transportation. Pt states her family will transport her after surgery until she is able again. She inquires about [facility] transportation. Discussed with patient and made her aware [facility] will provide her with written information once she is hospitalized. DME/HHC/SNF: Pt states she has a cane that she uses. She also has a FWW available as well as a w/c. Pt has had [facility] in the past and denies SNF stays. Pt states no concerns with going to her dtr's home at time of dc. Pt states no further concerns/needs. CM to follow. Advised pt to ask CM if any further question/concerns/needs arise, voices understanding. Pt Goal: Home (dtr's home) Plan: Home, [facility] to provide [facility] transportation information when pt is inpatient.
[2022-02-24] VITALS (42 sets, daily range): BP systolic 100–217; BP diastolic 30–93; PULSE 55–88; RESP 15–18; TEMP 36.3–37.6; O2SAT 2–100; BMI 24.7; BMI 26.9
--- NOTE | 2022-02-24 05:58 | PCM.HP.BLA ---
History and Physical Date of Admission: 02/24/22 Allergies pravastatin Adverse Reaction (Severe, Verified 01/21/22 12:31) [id number] Reductase Inhibitor Adverse Reaction (Severe, Verified 01/21/22 12:31) myalgiasSulfa (Sulfonamide Antibiotics) Adverse Reaction (Mild, Verified 01/21/22 12:31) stomach upsetatorvastatin Adverse Reaction (Verified 01/21/22 12:31) myalgias Medications aspirin 81 mg chewable tablet 81 mg PO QHS health maintenance 06/07/16 [History Confirmed 01/21/22] clopidogrel 75 mg tablet 75 mg PO DAILY platelet inhibitor 06/07/16 [History Confirmed 01/21/22] multivitamin 1 tab PO DAILY 04/28/19 [History Confirmed 01/21/22] omega-3 fatty acids 1,000 mg capsule (Fish Oil Concentrate) 1,000 mg PO DAILY supplement 04/28/19 [History Confirmed 01/21/22] lisinopril 20 mg tablet 20 mg PO BID 01/01/21 [History Confirmed 01/21/22] metoprolol tartrate 25 mg tablet 25 mg PO TID 01/01/21 [History Confirmed 01/21/22] coenzyme Q10 100 mg capsule (Co Q-10) 100 mg PO DAILY 07/01/21 [History Confirmed 01/21/22] metformin 500 mg tablet,extended release 24 hr 500 mg PO DAILY 07/01/21 [History Confirmed 01/21/22] cholecalciferol (vitamin D3) 25 mcg (1,000 unit) tablet (Vitamin D3) 25 mcg PO DAILY 09/26/21 [History Confirmed 01/21/22] nitroglycerin 0.4 mg sublingual tablet 0.4 mg sublingual Q5-15M PRN chest pain 09/26/21 [History Confirmed 01/21/22] amlodipine 2.5 mg tablet 2.5 mg PO DAILY #0 tabs 10/02/21 [Rx Confirmed 01/21/22] PFSH Medical History? Ambulates with cane Amputated toe Arthritis Atherosclerotic heart disease of [place] coronary artery without angina pectoris BBB (bundle branch block) Bone infection of left foot Cardiology follow-up encounter Carotid stenosis Carotid stenosis, bilateral Cellulitis of left foot Cellulitis of left thigh Cystocele Diabetes Easy bruising Essential hypertension Former smoker Gangrene of left foot HTN (hypertension) Hyperlipidemia Injury of head and neck Ischaemic rest pain of lower extremity Open wound of left foot Osteoarthritis Osteomyelitis of left foot PAD (peripheral artery disease) Peripheral arterial occlusive disease Post-op pain Presence of stent in coronary artery (~07/04/11) Prolapsed bladder RBBB (right bundle branch block) Rectocele Shortness of breath on exertion TIA (transient ischemic attack) Type 2 diabetes mellitus Wears dentures Surgical History? Cataract extraction status of right eye History of colonoscopy History of heart artery stent History of hemorrhoidectomy History of hysterectomy History of left-sided carotid endarterectomy History of tonsillectomy Presence of coronary angioplasty implant and graft (~07/04/11) S/P bladder repair Status post peripheral artery angioplasty Family History? Father Diabetes Heart diseaseBrother Diabetes Colon cancerBrother Diabetes Social History? Smoking Status:? Former smoker how long ago did patient quit smoking:? 20 + years ago alcohol intake:? current alcohol intake frequency: a few times a month Alcohol type: wine substance use type:? does not use caffeine:? Yes Type: coffee Number of servings: 2 what type of physical activity do you participate in:? walking seatbelt use:? always do you feel safe at home:? Yes HPI HPI HPI: GENTRY BUTTERFIELD, is a 86 F who presents to the office today for follow-up of carotid imaging.? The CT scan of the chest demonstrates thickening of the esophageal wall.? I discussed with her this issue.? She suggest that occasionally she will have trouble swallowing some food and simply has to wait it for to go down.? She is not really brought this to the attention of anyone and she has not had an upper endoscopy.? She minimizes her symptom complex in this fashion. She describes a previous syncopal episode where she fainted and was found on the floor but then able to get back up as emergency squad arrived.? She was told that she had had an ischemic stroke.? She denies however focal motor or sensory loss of either upper or lower extremity. STUDY:? CTA CHEST REASON FOR EXAM:? Female, 86 years old.? Arterial stenosis -- looking for central arterial stenosis/occlusion RADIATION DOSAGE (If Supplied By Facility):? CTDIvol = ( 22.53 ) mGy, DLP = ( 1969.37 ) mGycm TECHNIQUE:? The examination was performed with the intravenous administration of IV 100mL Isovue-300.? Post-processing of the angiographic images was performed, with multiplanar reformation and 3D reconstruction. Individualized dose optimization techniques were used for this CT. COMPARISON:? None. FINDINGS: Normal enhancement of the main pulmonary artery and right and left pulmonary arteries.? Normal enhancement of the bilateral peripheral pulmonary arteries.? There is no demonstrated pulmonary embolism. There is atherosclerotic calcification of the aortic arch with tortuosity. Calcific plaque formation at the origin of the left subclavian artery and right brachiocephalic artery.? Calcific plaque at the origin of the left common carotid artery. There is no demonstrated aortic dissection. There are calcifications of the coronary arteries. Normal mediastinum.? Normal hilar regions. Normal visualized trachea and bronchi.? Hyperinflation. Mild degree of emphysematous changes. Normal pleura. Normal chest wall structures. There are degenerative changes of thoracic spine.? Increased kyphosis. Circumferential wall thickening of the distal esophagus.? Narrowing of the esophageal lumen.? Correlation with endoscopy is recommended if clinically indicated. CT/CTA Chest W/WO Contrast IMPRESSION: No evidence of a pulmonary embolism. Atherosclerotic ossific plaques of the aortic arch and the great vessels of the neck. ? Emphysematous changes. ? Circumferential wall thickening of the distal esophagus.? Clinical correlation recommended. ? Electronically Signed: Rigo Avalos MD at 15:17 EDT , January 14, 2022 STUDY:? CTA NECK WITH CONTRAST REASON FOR EXAM: ? Female, 86 years old.? Carotid stenosis RADIATION DOSAGE (If Supplied By Facility):? CTDIvol = ( 22.53 ) mGy, DLP = ( 1696.37 ) mGycm TECHNIQUE: ? CT angiography with multi-detector data acquisition was performed from the aortic arch to the skull base following intravenous administration of IV 100mL Isovue-300.? MIP images were reconstructed from the axial data set.? Post-processing of the angiographic images was performed, with multiplanar reformation and 3D reconstruction. Individualized dose optimization techniques were used for this CT. COMPARISON: ? Comparison is made with prior study dated 09/24/2012. FINDINGS: Heterogeneous enlargement of the thyroid gland. AORTIC ARCH: There is atherosclerotic calcific plaque formation of the aortic arch and great vessels arising from the aortic arch, without a hemodynamically significant stenosis. There is a normal origin of the brachiocephalic, left common carotid, and left subclavian arteries.? Atherosclerotic plaque formation with stenosis at the origin of the right brachiocephalic artery as well as the origin of the left common carotid artery and left subclavian artery. RIGHT CAROTID ARTERIES: Normal right common carotid artery (CCA).? Normal right common carotid bulb. There is severe atherosclerotic plaque formation of the origin of the right internal carotid artery with a near complete occlusion.? Normal visualized cervical portion of the right internal carotid artery. Normal origin of the right external carotid artery (ECA). LEFT CAROTID ARTERIES: Normal left common carotid artery (CCA).? Normal left common carotid bulb. There is mild atherosclerotic plaque formation of the origin of the left internal carotid artery with less than 50% cross sectional diameter stenosis.? The patient is status post left carotid endarterectomy.? Normal visualized cervical portion of the left internal carotid artery. Normal origin of the left external carotid artery (ECA). VERTEBRAL ARTERIES: There is enhancement within the bilateral vertebral arteries with a small right vertebral artery, and a dominant left vertebral artery. CT/CTA Neck W/WO Contrast IMPRESSION: High-grade stenosis at the origin of the right internal carotid artery. Less than 50% narrowing of the left internal carotid artery at its origin. Atherosclerotic plaque formation of the brachiocephalic artery with this moderate degree of stenosis. ? Electronically Signed: Rigo Avalos MD at 15:23 EDT , Chief Complaint: carotid stenosis [employer] Required: No Is patient in pain?: No Allergies pravastatin Adverse Reaction (Severe, Verified 01/02/22 08:23) [id number] Reductase Inhibitor Adverse Reaction (Severe, Verified 01/02/22 08:23) myalgiasSulfa (Sulfonamide Antibiotics) Adverse Reaction (Mild, Verified 01/02/22 08:23) stomach upsetatorvastatin Adverse Reaction (Verified 01/02/22 08:23) myalgias Medications aspirin 81 mg chewable tablet 81 mg PO QHS health maintenance 06/07/16 [History Confirmed 01/02/22] clopidogrel 75 mg tablet 75 mg PO DAILY platelet inhibitor 06/07/16 [History Confirmed 01/02/22] multivitamin 1 tab PO DAILY 04/28/19 [History Confirmed 01/02/22] omega-3 fatty acids 1,000 mg capsule (Fish Oil Concentrate) 1,000 mg PO DAILY supplement 04/28/19 [History Confirmed 01/02/22] lisinopril 20 mg tablet 20 mg PO BID 01/01/21 [History Confirmed 01/02/22] metoprolol tartrate 25 mg tablet 25 mg PO TID 01/01/21 [History Confirmed 01/02/22] coenzyme Q10 100 mg capsule (Co Q-10) 100 mg PO DAILY 07/01/21 [History Confirmed 01/02/22] metformin 500 mg tablet,extended release 24 hr 500 mg PO DAILY 07/01/21 [History Confirmed 01/02/22] cholecalciferol (vitamin D3) 25 mcg (1,000 unit) tablet (Vitamin D3) 25 mcg PO DAILY 09/26/21 [History Confirmed 01/02/22] nitroglycerin 0.4 mg sublingual tablet 0.4 mg sublingual Q5-15M PRN chest pain 09/26/21 [History Confirmed 01/02/22] amlodipine 2.5 mg tablet 2.5 mg PO DAILY #0 tabs 10/02/21 [Rx Confirmed 01/02/22] PFSH Medical History? Ambulates with cane Amputated toe Arthritis Atherosclerotic heart disease of [place] coronary artery without angina pectoris BBB (bundle branch block) Bone infection of left foot Cardiology follow-up encounter Carotid stenosis, bilateral Diabetes Easy bruising Essential hypertension Former smoker Gangrene of left foot HTN (hypertension) Hyperlipidemia Injury of head and neck Osteoarthritis Osteomyelitis of left foot PAD (peripheral artery disease) Peripheral arterial occlusive disease Presence of stent in coronary artery (~07/04/11) Prolapsed bladder RBBB (right bundle branch block) Shortness of breath on exertion TIA (transient ischemic attack) Type 2 diabetes mellitus Wears dentures Surgical History? Cataract extraction status of right eye History of colonoscopy History of heart artery stent History of hemorrhoidectomy History of hysterectomy History of left-sided carotid endarterectomy History of tonsillectomy Presence of coronary angioplasty implant and graft (~07/04/11) Status post peripheral artery angioplasty Family History? Father Diabetes Heart diseaseBrother Diabetes Colon cancerBrother Diabetes Social History? Smoking Status:? Former smoker how long ago did patient quit smoking:? 20 + years ago alcohol intake:? current alcohol intake frequency: a few times a month Alcohol type: wine substance use type:? does not use caffeine:? Yes Type: coffee Number of servings: 2 what type of physical activity do you participate in:? walking seatbelt use:? always do you feel safe at home:? Yes HPI HPI HPI: GENTRY BUTTERFIELD, is a 86 F who presents to the office today for surgical consultation regarding abnormal carotid imaging.? By report she has a history of coronary artery disease with PCI and peripheral arterial occlusive disease and history of left carotid endarterectomy hyperlipidemia hypertension in addition to diabetes mellitus.? Monitor other medications she is on 81 mg aspirin and clopidogrel and omega-3 fatty acids as well as metformin.? She has required a recent toe amputation.? She was a former tobacco user.? Dr. Pablo Nicholson has assisted her with lower extremity work.? I remotely assisted her with the same.? Dating all the way back to 2008 I helped her with a left carotid endarterectomy.? She states 1 year ago she had a syncopal episode.? She states nothing since that time.? Her previous visit with me 2019 she was on a statin medication Lipitor.? She is not on any statin medications at this time and she could not remember why.? It became evident looking through the records that she apparently is intolerant to multiple statins secondary to myalgias. She is denying any focal central neurologic symptoms currently.? She has no dizziness.? No focal motor or sensory loss.? No speech deficit. January 01, 2022 Reason For Study: Carotid stenosis Rt. Velocities/BP ? Lt. Velocities/BP Subclavian artery 47.6/5.8 cm/sec.? Prox CCA 106.5/17 cm/sec. Prox CCA 18.7/13.3 cm/sec.? Mid CCA 108.3/20.6 cm/sec. Mid CCA 16.2/11.4 cm/sec. ? Dist CCA 113.8/17 cm/sec. Dist CCA 9.9/6.7 cm/sec.? Prox ICA 134.5/13.8 cm/sec. Prox ICA 14.4 cm/sec. ? Mid ICA 110.4/18.2 cm/sec. Mid ICA 29.6 cm/sec.? Dist ICA 149.9/33.6 cm/sec. Dist ICA 33.2/1.5 cm/sec. ? Lt. ICA/CCA = 1.38. Rt. ICA/CCA = 2.05. ? Prox ECA 171.8/7.2 cm/sec. Prox ECA 23.1/5.1 cm/sec. ? Lt. Vert. 71.6 cm/sec. Rt. Vert. 57.9/7.8 cm/sec. Right Extracranial There is homogeneous, smooth atherosclerotic plaque noted in the right common carotid artery. There is heterogeneous, irregular atherosclerotic plaque noted in the right internal carotid artery. The atherosclerotic plaque causes acoustic shadowing. There is heterogeneous, irregular atherosclerotic plaque noted in the right external carotid artery. Antegrade flow is noted in the right vertebral artery. Abnormal waveform morphology noted in the right CCA and ICA. Left Extracranial There is heterogeneous, irregular atherosclerotic plaque noted in the left common carotid artery. There is heterogeneous, irregular atherosclerotic plaque noted in the left internal carotid artery. There is heterogeneous, irregular atherosclerotic plaque noted in the left external carotid artery. Antegrade flow is noted in the left vertebral artery. Procedure Carotid Duplex [id number]. This is a Carotid Duplex examination using B-mode, color flow and specral Doppler. Exam performed in department. VL/Carotid Duplex Ultrasound Interpretation Summary Extensive calcific plaque involving the right carotid bulb proximal internal and external carotid arteries. Abnormal depressed flow rates and waveforms throughout the right common carotid internal and external carotid arteries. Findings might suggest a more proximal stenosis. Clinical correlation would be appropriate. Heterogenous irregular plaque at the proximal left internal carotid artery with 50 to 69% stenosis of the left internal carotid Less than 50% stenosis of the left external carotid Patent antegrade vertebrals bilaterally Her right carotid changes are new from her previous examination of January 02, 2021 ? Ordering Physician: Noble Ball Referring Physician: Mc Marks MD Performed By: Daina Arvizu RVT General General: Yes fatigue; No weight change, appetite, colon cancer, breast cancer or weakness HEENT HEENT: Yes eye injury and eye surgery; No difficulty swallowing, swollen glands or hoarseness Endo Endocrine: Yes diabetes mellitus; No thyroid disease, thyroid cancer, Hair loss, heat intolerance or cold intolerance Skin Skin: No rash or changing moles Breast Breast: No left breast lump, right breast lump, nipple discharge, breast pain, abnormal mammogram, abnormal US or breast enlargement Musc Musculoskeletal: Yes arthritis; No back problems, rheumatoid arthritis, gout or joint pain Cardio Cardiovascular: Yes high blood pressure and heart stent; No murmur, pacemaker, heart disease, atrial fibrillation, heart attack, palpitations, shortness of breat with exertion or chest pain Psych Psychiatric: No depression, anxiety or hearing voices Resp Respiratory: No shortness of breath, No sleep apnea, No cough, No COPD, No asthma, No emphysema and No wheezing Gastro Gastrointestinal: No abdominal pain, No nausea or vomiting, No diarrhea, Yes constipation, No blood in stool, No acid reflux, No hemorrhoids, No ulcers, No gallbladder problem and No black,tarry stools Khoa Hematologic: Yes blood thinners, No blood disorders, No bleeding, No anemia and No blood clots Neuro Neurologic: No system reviewed and no additional complaints, except as documented, No as per HPI, No abnormal gait, No abnormal hearing, No abnormal movements, No abnormal speech, No behavioral changes, No burning sensations, No confusion, No convulsions, No disequilibrium, No dizziness, No localized weakness, No frequent falls, No headache(s), No lack of coordination, No loss of vision, No memory loss, No numbness, No other visual disturbances, No radicular pain, No restless legs, No sensory deficit, No syncope, No tingling, No tremor(s), No weakness and No other Exam Const General: cooperative, healthy appearing, comfortable and no acute distress [facility] Head: normal to inspection Eyes General: appearance normal, both eyes and all related structures Neck Other: Well-healed surgical incision left neck, bilateral carotids approximately 2+, I do not detect any carotid bruits bilaterally Resp Effort & Inspection: normal respiratory effort Auscultation: clear to auscultation bilaterally Cardio Rate: regular rate Rhythm: regular rhythm Assessment and Plan Assessment and Plan (1) Carotid stenosis: ?Status:?Acute ?Plan: I have explained to the patient that her duplex ultrasound of the right carotid is markedly changed and abnormal.? There is diminished velocity flow throughout the right common carotid internal and external carotid arteries.? This is suggesting potential for a more proximal stenosis. She has had a previous problem with sodium imbalance.? We will check a BMP.? I recommend that we pursue a chest and neck CTA.? Very careful inspection for inflow stenosis to the right common carotid will need to be pursued. She has had an opportunity to ask and have questions answered.? We will have her return to the office subsequent to the imaging. Additional chart review reveals that June 12, 2020 Dr. Pablo Nicholson performed a retrograde access right common femoral artery with a left lower extremity arteriogram and balloon angioplasty of the left common femoral artery and angioplasty of the left popliteal.? I believe that subsequent to this patient pursued a toe amputation. Copy: Dr. Mc Ball M.D., F.A.C.S [facility] General General: Yes fatigue; No weight change, appetite, colon cancer, breast cancer or weakness HEENT HEENT: Yes eye injury and eye surgery; No difficulty swallowing, swollen glands or hoarseness Endo Endocrine: Yes diabetes mellitus; No thyroid disease, thyroid cancer, Hair loss, heat intolerance or cold intolerance Skin Skin: No rash or changing moles Breast Breast: No left breast lump, right breast lump, nipple discharge, breast pain, abnormal mammogram, abnormal US or breast enlargement Musc Musculoskeletal: Yes arthritis; No back problems, rheumatoid arthritis, gout or joint pain Cardio Cardiovascular: Yes high blood pressure and heart stent; No murmur, pacemaker, heart disease, atrial fibrillation, heart attack, palpitations, shortness of breat with exertion or chest pain Psych Psychiatric: No depression, anxiety or hearing voices Resp Respiratory: No shortness of breath, No sleep apnea, No cough, No COPD, No asthma, No emphysema and No wheezing Gastro Gastrointestinal: No abdominal pain, No nausea or vomiting, No diarrhea, Yes constipation, No blood in stool, No acid reflux, No hemorrhoids, No ulcers, No gallbladder problem and No black,tarry stools Khoa Hematologic: Yes blood thinners, No blood disorders, No bleeding, No anemia and No blood clots Neuro Neurologic: No system reviewed and no additional complaints, except as documented, No as per HPI, No abnormal gait, No abnormal hearing, No abnormal movements, No abnormal speech, No behavioral changes, No burning sensations, No confusion, No convulsions, No disequilibrium, No dizziness, No localized weakness, No frequent falls, No headache(s), No lack of coordination, No loss of vision, No memory loss, No numbness, No other visual disturbances, No radicular pain, No restless legs, No sensory deficit, No syncope, No tingling, No tremor(s), No weakness and No other Assessment and Plan Assessment and Plan (1) Carotid stenosis, bilateral: ?Status:?Chronic ?Plan: I have spent 25 minutes [id number] consultative appointment with the patient and her daughter.? She has a high-grade critical stenosis of the right internal carotid.? Although she does have central arterial occlusive disease as well I believe that her carotid bifurcation is the site of the most critical disease.? In great detail I described a right carotid endarterectomy with bovine patch angioplasty and arterial line monitoring.? I discussed intraoperative shunting.? We discussed the technique, benefit, risk, alternatives.? No guarantees of success have been offered.? She is aware of operative risks. Based upon the speed of progression of her disease based upon her duplex exam I have cautioned her that I believe that she is at significant risk.? I believe that she is also at risk even with ongoing medical treatment. No guarantees of success have been offered.? She will discuss this treatment option with her daughter.? She will remain on her other medications including the clopidogrel and aspirin.? If she elects to proceed we will have her hold her clopidogrel just 1 day preoperatively while being maintained on her aspirin therapy.? She is aware that this will lead to postoperative bruising and likely some swelling however due to the severity of her disease I am not comfortable holding her clopidogrel for longer period of time. She is additionally aware that after a very hopeful successful carotid enterectomy that I recommend a future esophagogastroduodenoscopy to evaluate the CT imaging finding of thickening of the esophageal wall.? With the severity of her carotid disease I do not feel comfortable proceeding with the upper endoscopy first. She has had an opportunity to ask and have questions answered.? We will tentatively schedule her for intervention.? She will confirm with us within a week as to whether she is desiring to proceed. Copy: Dr. Mc Ball M.D., F.A.C.S.
[2022-02-24] MEDS: Lactated Ringers 1,000 ML 15 ML IV ×2 (06:02→09:30)
--- NOTE | 2022-02-24 06:29 | OP.PCM_ITS ---
Problems Associated Problem List Diagnoses (1) Carotid stenosis, bilateral: Report of Operation Date of Procedure: 02/24/22 Pre-Operative Diagnosis: Critical stenosis right extracranial internal carotid artery Post-Operative Diagnosis: Same Surgery/Procedure Performed:: Left radial arterial line placement Right carotid endarterectomy with bovine patch angioplasty Vascu-Guard 0.8 x 8 cm, reference the [id number], lot [id number], PN: [id number], expiry date 10/16/2026 Description of Surgical Findings:: Timeout and informed consent was obtained. 86-year-old female had Sergio test pe rformed at the bedside demonstrating adequate left ulnar flow. The left wrist was gently extended prepped with chlorhexidine. Under ultrasound guidance 1% lidocaine was instilled as a local anesthetic. 1 cc was used. Under ultrasound guidance a 20-gauge Angiocath was inserted into the left radial artery and then using Seldinger wire technique the catheter was advanced. It was secured to skin with 2-0 silk. Gauze OpSite dressing and Ke wrap applied. She tolerated procedure well no apparent complication good waveform was obtained. Hand was viable at the completion. The patient was subsequently taken to the operating room and placed supine on the table. She underwent general endotracheal intubation and anesthesia. Ancef 2 g were given intravenously preoperatively. The right neck was sterilely prepped and draped. An oblique incision was made along the anterior border the sternocleidomastoid sharp dissection carried down through the subtendinous tissues. Platysma was incised. Dissection was then performed directly down upon by common carotid carotid bulb and internal carotid artery reflecting the sternocleidomastoid laterally. Sharp and blunt dissection was used to get circumferential control of the common carotid with a Bauman tie of Dacron tape of the internal carotid with a Dacron tape and Briana tourniquet and of the external carotid with a vessel loop. The superior thyroid were secured with a Bauman tie of 3-0 Vicryl. Weight-based the patient received 7000 units of heparin. After adequate circulation time peripheral vascular clamps were placed on the internal carotid Han clamp on the common carotid and prophylactic clamp on the external carotid at 11 blade was used to make an arteriotomy which was extended with Bauman scissors. Very dense highly stenotic calcific plaque was encountered. A #8 US CI style shunt was placed cephalad then proximally. Cerebral oximetry remained consistent. And indirect. Knee was performed with a layer of external elastic lamina. Plaque was sharply transected proximally then was carefully dissected free with the intima being carefully dissected at the internal carotid and inversion endarterectomy was performed of the external carotid further debris was carefully removed. A 7-0 Prolene was used as a tacking suture at the intima of the internal carotid. Irrigation was used all debris had been removed a bovine patch was shaped to form 0.8 x 8 cm patch angioplasty created with a running 6-0 Prolene. Prior to completion the shunt was removed the vessel was irrigated there was good antegrade retrograde flow patch angioplasty completed initial clamps removed from the external carotid common carotid and finally the internal carotid. A single repair suture of 7-0 Prolene was required. It is of new that due to the amount of time taken to do the endarterectomy the patient did receive an additional 1000 units of heparin based upon ACT measurements. At the completion of the procedure in small ali quots total 30 mg of protamine was given. Surgicel was used to further assist with hemostasis. Hemostasis was intact patch angioplasty intact good pulsatile flow. The platysma was approximated with a running 3-0 Vicryl. Skin edges proximal and subicular 5-0 Vicryl. Periincisional areas anesthetized with 10 cc of 0.25% Marcaine. Steri-Strips Telfa tape dressings applied. Sponge and instrument and needle counts were reported to the surgeon to be correct. Specimen plaque. Drains none. Blood loss 200 cc. The patient was taken to the recovery room in satisfactory addition without apparent complication Noble Ball M.D., F.A.C.S. Surgeon: Noble Ball Anesthesiologist: Karlo Jhaveri
[2022-02-24 06:46] LABS: Bedside Glucose 131 mg/dL (74-106)
--- NOTE | 2022-02-24 06:53 | EX.PCM.DISCH ---
Discharge Instructions Diet Discharge Diet: Light diet - advance as tolerated Activity Discharge Activity: May Not Drive (No driving for 1 week.) and May Not Shower (May resume showering on Thursday, February 28, 2022) Lifting Restrictions: 10 pound weight lifting restriction please Dressing / Incision Call your doctor if your incision/area has: Continuous Slow Oozing and Increased Pain/ Swelling Call your doctor if you observe: Fever of 101 or Higher Additional Dressing/Incision Instructions:: Leave Steri-Strips in place for 1 week. Follow Up Care Please Follow Up With: Noble Ball MD When: Please contact the office at [phone] for office appointment in approximately 10 days Test Results: You we will resume all of your routine medicines today except for your clopidogrel which you may resume on February 26, 2022 Acetaminophen or Tylenol recommended for pain. I do not anticipate a prescription pain medication at this time Noble Ball M.D., F.A.C.S. Discharge Plan Admission Admit Date/Time: 02/24/22 05:18 Attending Provider: Noble Ball Primary Care Provider: Tre Marks Discharge Orders/Prescriptions Prescriptions: No Action omega-3 fatty acids [Fish Oil Concentrate] 1,000 mg capsule 1,000 mg PO DAILY multivitamin Tablet 1 tab PO DAILY nitroglycerin 0.4 mg tablet, sublingual 0.4 mg SUBLINGUAL Q5-15M PRN (Reason: chest pain) metoprolol tartrate 25 mg tablet 25 mg PO TID lisinopril 20 mg tablet 20 mg PO BID metformin 500 mg tablet extended release 24 hr 500 mg PO DAILY coenzyme Q10 [Co Q-10] 100 mg capsule 100 mg PO DAILY cholecalciferol (vitamin D3) [Vitamin D3] 25 mcg (1,000 unit) tablet 25 mcg PO DAILY clopidogrel 75 MG tablet 75 mg PO DAILY aspirin 81 MG tablet,chewable 81 mg PO QHS amlodipine 2.5 mg tablet 2.5 mg PO DAILY Referrals / Follow Up: Tre Marks MD [Primary Care Provider] -
[2022-02-24] MEDS: Heparin Injection (Vial) 5,000 UNIT/ML VIAL 5000 UNIT (07:30)
--- NOTE | 2022-02-24 07:30 | PLAQ_PTH ---
PATIENT: GENTRY COBB LOC: PCU U#:[id number] AGE/SX: 86/F ROOM: [facility] RE02/24/[address]: Dr. Noble Ball MD : [id number] BED: 1 DIS: 02/25/2022 SPEC #: [id number] RECD: 02/24/22 11:10 STATUS: MARY KIMNubia #: [id number] ROHINI: 02/24/22 07:[address]: Noble Ball DEPT: SURGICAL PATHOLOGY RECD BY: Love Luciano ENTERED: 02/24/22 13:24 SP TYPE: PLAQUE OTHR DR: Dr. Mc Marks MD Tissues: PLAQUE Procedures: Decalcification bone/plaque Surgery Specimen Level III HEADER OPERATION: Carotid endarterectomy with Bovine patch angioplasty PRE-OP DIAGNOSIS: Carotid stenosis TISSUE SUBMITTED: Carotid plaque MICROSCOPIC DIAGNOSIS Carotid plaque, endarterectomy: Calcified atheromatous plaque consistent with severe stenosis. AM:jenn 02/27/2022 GROSS DESCRIPTION Received in fixative is one container labeled with the patient's name and designated carotid plaque. The specimen consists of two tubular pieces of george, indurated tissue measuring 3.5 cm in length and 0.6 cm in diameter and 1.5 cm in length and 0.4 cm in diameter. The specimen cuts with gritty sensation. Instructional Technology Specialist sections are submitted in one cassette after decalcification. / SANDY:jenn 02/24/2022 TC:5 CPT: 13574, 74490
[2022-02-24] MEDS: Cefazolin 2 GM in 0.9% Normal Saline 100 ML IV (07:33)
[2022-02-24] MEDS: Nitro/D5w 25MG/250ML Bottle 25 MG (11:05)
--- NOTE | 2022-02-24 11:40 | SUR.PHASEI ---
DR JUARES CALLED TO BEDSIDE. PATIENT ARRIVED TO PACU WITH ELEVATED ARTERIAL SBP IN 180-200'S; PER BETTINA LUIS, BP INCREASING AT END OF CASE AND WAS GIVEN SEVERAL NITRO IVP BOLUS PRIOR TO PACU TXR. SBP LABILE, A-LINE READING VERY HIGH COMPARED TO NIBP. RN CHECKED JONI POSITION SEVERAL TIMES, ZEROED LINE, ADJUSTED NIBP CUFF WHICH WAS CHANGED TO LEFT LOWER LEG. NITRO GTT CURRENTLY AT 15 MCG/MIN, NIBP HOLDING BETWEEN 120-140'S PER LEFT LEG. ONLY REPORTING PAIN AT LEFT NECK WHERE MANUAL PRESSURE CONTINUES TO BE HELD. PATIENT DENIES URGE TO URINATE. NO NEW ORDERS RECEIVED FROM MD AT THIS TIME.
--- NOTE | 2022-02-24 11:40 | SUR.PHASEI ---
ARTERIAL SBP ELEVATED BETWEEN 180-200'S ON PACU ARRIVAL, SEVERAL NTG IVP BOLUS GIVEN PER BETTINA LUIS, REPORT. STARTED NTG GTT AT 1105 LABILE, A-LINE READING VERY HIGH COMPARED TO NIBP ON LEFT ARM BUT IT IS ALSO ELEVATED. RN CHECKED ALL A-LINE CONNECTIONS AND POSITIOINING OF NIBP CUFF WHICH WAS CHANGED TO LEFT LOWER LEG. NITRO GTT CURRENTLY AT 15 MCG/MIN, NIBP HOLDING BETWEEN 120-140'S PER LEFT LEG. DR JUARES AT BEDSIDE AND UPDATED, NO NEW ORDERS AT THIS TIME.
[2022-02-24 12:45] LABS: Bedside Glucose 176 mg/dL (74-106)
--- NOTE | 2022-02-24 12:45 | SUR.PHASEI ---
DR CHADWICK AT BEDSIDE, NOTIFIED SBP HAS BEEN VERY ELEVATED ON BOTH LEFT JONI & NIBP. NITRO GTT AT 40 MCG. ORDER RECEIVED TO GIVE IV HYDRALAZINE PER ORDER. PATIENT DENIES C/O OTHER THAN SORE THROAT AND TENDERNESS AT LEFT NECK. NO FURTHER BLEEDING NOTED AFTER HOLDING MANUAL PRESSURE FOR ONE HOUR.
[2022-02-24] MEDS: hydrALAZINE 20 MG/ML Vial 5 MG IV ×2 (12:47→12:53)
[2022-02-24] MEDS: Metoprolol Tartrate 25 MG Tablet PO ×2 (14:03→20:27)
--- NOTE | 2022-02-24 15:19 | SUR.PHASEI ---
DR CHADWICK UPDATED OF BP STABLE SINCE 3RD DOSE HYDRALAZINE GIVEN PER DR JUARES'S ORDER, NTG GTT TURNED OFF AT 1439. MONITORED BP FREQUENTLY AND HAS BEEN STABLE FOR PAST 40 MINUTES, SBP BETWEEN 120-160. DR CHADWICK ORDERED TO D/C JONI & TXR TO PCU.
[2022-02-24 17:16] LABS: Bedside Glucose 150 mg/dL (74-106)
[2022-02-24] MEDS: Cefazolin 1 GM/50 ML BAG IV ×2 (17:25→22:15)
[2022-02-24] MEDS: Lisinopril 20 MG Tablet PO (20:28)
[2022-02-24] MEDS: Aspirin 81 MG TAB.CHEW PO (22:15)
[2022-02-24 23:00] LABS: Bedside Glucose 147 mg/dL (74-106)
[2022-02-25] VITALS (7 sets, daily range): BP systolic 137–172; BP diastolic 33–56; PULSE 61–69; RESP 16–18; TEMP 36.4–36.8; O2SAT 94–100
--- NOTE | 2022-02-25 06:04 | PCM.PN.SRG ---
Subjective Subjective Patient has no complaints other than she feels tired. No focal neurologic complaints. Objective Data Objective Data Vital Signs: Vital Signs Temp Pulse Resp BP Pulse Ox O2 Del Method O2 Flow Rate 98.3 F 63 18 152/51 H 94 Room Air 2 02/25/22 02:07 02/25/22 03:00 02/25/22 02:07 02/25/22 02:07 02/25/22 02:07 02/25/22 04:40 02/24/22 14:00 Oxygen Flow Rate (L/min) 2 Oxygen Delivery Method Room Air Weight: 142 lb 8 oz Body Mass Index (BMI) 26.9 Intake & Output: Intake and Output for Last 24 Hours 02/23/22 02/24/22 02/25/22 23:59 23:59 23:59 Intake Total 2280 / 2280 Balance 2280 / 2280 Lab / Micro Data Result Diagrams: 02/17/22 10:42 02/17/22 10:42 Labs: Laboratory Results - last 24 hr 02/24/22 06:01: POC Glucose 131 H 02/24/22 12:26: POC Glucose 176 H 02/24/22 16:49: POC Glucose 150 H 02/24/22 22:17: POC Glucose 147 H Physical Exam Narrative Alert, very comfortable, no acute distress Const oriented x3 Resp normal respiratory effort Cardio Cardio Narrative: Right neck dressing changed. Supple clean dry Steri-Strips intact Extremity Extremity Narrative: Neurologic exam intact Assessment & Plan Assessment/Plan (1) Carotid stenosis, bilateral: PLAN: Excellent progress status post right carotid enterectomy with bovine patch angioplasty. I have instructed her that she can resume her clopidogrel tomorrow. Her other medications can be resumed today. I anticipate office follow-up in 10 days. Noble Ball M.D., F.A.C.S.
[2022-02-25] MEDS: Metoprolol Tartrate 25 MG Tablet PO (06:14)
[2022-02-25 06:51] LABS: Bedside Glucose 111 mg/dL (74-106)
--- NOTE | 2022-02-25 08:56 | CASEMGMT ---
Pt had requested info on [employer] transportation and this was provided to pt at this time. Pt states does have a ride home today. Nahomy RAMIRES CM
[2022-02-25] MEDS: Lisinopril 20 MG Tablet PO (09:04)
[2022-02-25] MEDS: amLODIPine 2.5 MG Tablet PO (09:04)
--- NOTE | 2022-02-25 09:47 | PHA.DC.MR ---
Pharmacy Service has performed discharge medication reconciliation for this patient. The patient's discharge medication list was reviewed for discrepancies and discrepancies were resolved. Home Medications aspirin 81 mg chewable tablet 81 mg PO QHS health maintenance 06/07/16 clopidogrel 75 mg tablet 75 mg PO DAILY platelet inhibitor 06/07/16 multivitamin 1 tab PO DAILY SUPPLEMENT 04/28/19 omega-3 fatty acids 1,000 mg capsule (Fish Oil Concentrate) 1,000 mg PO DAILY supplement 04/28/19 lisinopril 20 mg tablet 20 mg PO BID BP 01/01/21 metoprolol tartrate 25 mg tablet 25 mg PO TID BP 01/01/21 coenzyme Q10 100 mg capsule (Co Q-10) 100 mg PO DAILY SUPPLEMENT 07/01/21 metformin 500 mg tablet,extended release 24 hr 500 mg PO DAILY DM 07/01/21 cholecalciferol (vitamin D3) 25 mcg (1,000 unit) tablet (Vitamin D3) 25 mcg PO DAILY SUPPLEMENT 09/26/21 nitroglycerin 0.4 mg sublingual tablet 0.4 mg sublingual Q5-15M PRN chest pain 09/26/21 amlodipine 2.5 mg tablet 2.5 mg PO DAILY BP 02/17/22
[2022-02-25] MEDS: metFORMIN (XR) 500 MG Tablet PO (10:12)
[2022-02-25] MEDS: FLU VACC QS2022-23(6MOS UP)/PF 60 MCG/0.5 ML SYRINGE IM (10:32)
[2022-02-26 09:27] LABS: ACT Activated Clotting Time 132 sec (74-137)
[2022-02-26 09:29] LABS: ACT Activated Clotting Time 231 sec (74-137)
[2022-02-26 09:30] LABS: ACT Activated Clotting Time 214 sec (74-137)
== END 2022-02-25 10:42 | disposition home or self-care (01) | DRG 39 ==
LOC: ACINP 05:22 → MS3 12:18 → PCU 02-25 06:08
PROVIDERS: Anesthesiology; Admitting Provider Surgery; PCP Family Medicine; Visit Provider Surgery
PROC: 03CK0ZZ Extirpation of Matter from Right Internal Carotid Artery, Open Approach (ICD-10-PCS; CPT 35301; principal; 2022-02-24 07:10)
DX: I65.23 Occlusion and stenosis of bilateral carotid arteries (principal); E11.51 Type 2 diabetes mellitus with diabetic peripheral angiopathy without gangrene; M79.10 Myalgia, unspecified site; I25.10 Atherosclerotic heart disease of native coronary artery without angina pectoris; Z79.84 Long term (current) use of oral hypoglycemic drugs; Z87.891 Personal history of nicotine dependence; Z23 Encounter for immunization
CPT/HCPCS: 36415; 80048; 80076; 82962; 83036; 85027; 85347; 85610; 85730; 88304; 88311; G0008; J7040; J7120; 90686; J2405

== ENCOUNTER → 2022-03-10 | Outpatient (CLI) | payer MEDICARE, SELFPAY ==
[2022-03-10 13:49] LABS: Mucous, Urine 0 SEEN /hpf (<or=2+); Red Blood Cells-Urine 0 SEEN /hpf (0-5)
[2022-03-10 14:07] LABS: Color, Urine Yellow (Yellow); Glucose, Dipstick Normal (Normal); Ketone-Dipstick Negative (Negative); Leukocyte Esterase-Dipstick 25 /ul (Negative); Nitrite-Dipstick Negative (Negative); Occult Blood-Urine Negative /ul (Negative); Protein-Dipstick 15 mg/dl (Negative); Urine Bilirubin Dipstick Negative (Negative); Urine Clarity Sl. Cloudy (Clear); Urine Urobilinogen Normal (Normal)
[2022-03-10 14:15] LABS: Bacteria 1+ /hpf (None Seen); Squamous Epithelial Cells - UA 5-10 SEEN /hpf (5-10); White Blood Cells 0-5 SEEN /hpf (0-5)
[2022-03-10 14:20] LABS: ALB/GLOB Ratio 0.9 RATIO (0.9-2.4); AST(SGOT) 20 U/L (15-37); Alanine Aminotransfer ALT/SGPT 19 U/L (13-56); Albumin, Serum 3.7 g/dL (3.2-5.0); Alkaline Phosphatase 91 U/L (45-117); Anion Gap 8 (5-15); BUN 17 mg/dL (7-18); BUN/Creat Ratio 21.8 RATIO (10-20); Calcium,Total 9.5 mg/dL (8.5-10.1); Chloride 101 mmol/L (98-107); Creatinine, Serum 0.78 mg/dL (0.55-1.02); EST Glomerular Filtration Rate 75 mL/min (>60); Est Glom Filt Rate - Afr Amer 90 mL/min (>60); Globulin 4.2 g/dL (2.2-4.2); Glucose 100 mg/dL (74-106); Potassium 4.2 mmol/L (3.5-5.1); Protein, Total 7.9 g/dL (6.4-8.2); Sodium Level 137 mmol/L (136-145)
[2022-03-10 14:23] LABS: Vitamin B12 1002 pg/mL (211-911)
[2022-03-10 14:25] LABS: PTHIN 29.7 pg/mL (18.4-80.1)
== END | disposition home or self-care (01) ==
LOC: PAVLAB 13:16
PROVIDERS: PCP Family Medicine; Referring Provider Physician Assistant; Visit Provider Physician Assistant
DX: R30.0 Dysuria (principal); E11.40 Type 2 diabetes mellitus with diabetic neuropathy, unspecified; E53.8 Deficiency of other specified B group vitamins; E83.52 Hypercalcemia
CPT/HCPCS: 36415; 80053; 81001; 82607; 83970; 87086; 87088

== ENCOUNTER → 2022-03-11 | Outpatient (CLI) | payer MEDICARE, SELFPAY ==
[2022-03-11 08:33] LABS: Cholesterol 241 mg/dL (200); High Density Lipoprotein 68 mg/dL; Triglycerides 112 mg/dL; Very Low Density Lipoprotein 22 mg/dL (5-40)
== END | disposition home or self-care (01) ==
LOC: LAB 07:15
PROVIDERS: PCP Family Medicine; Referring Provider Family Medicine; Visit Provider Family Medicine
DX: E11.40 Type 2 diabetes mellitus with diabetic neuropathy, unspecified (principal)
CPT/HCPCS: 36415; 80061

== ENCOUNTER → 2022-03-26 | Outpatient (CLI) | payer MEDICARE, SELFPAY ==
--- NOTE | 2022-03-26 08:01 | CDUL_ITS ---
Reason For Study: STENOSIS Rt. Velocities/BP Prox CCA 27.8/9.7 cm/sec. Mid CCA 45.2/8.2 cm/sec. Dist CCA 13.9/8.6 cm/sec. Prox ICA 8.2/6.1 cm/sec. Mid ICA 10.2/8.6 cm/sec. Dist ICA 39.4/0 cm/sec. Rt. ICA/CCA = 39.4/45.2=0.87. Prox ECA 33.1/6.9 cm/sec. Rt. Vert. 27.4/0.0 retrograde cm/sec. Right Extracranial There is homogeneous, smooth atherosclerotic plaque noted in the right common carotid artery. There is homogeneous, smooth atherosclerotic plaque noted in the right internal carotid artery. There is heterogeneous, irregular atherosclerotic plaque noted in the right external carotid artery. Abnormal waveform morphology noted in the right CCA and ICA. Rt Vertebral flow is retrograde. Procedure Carotid Duplex [id number]. The study was technically difficult. Exam performed in department. VL/Carotid Unilateral Interpretation Summary Postoperative changes of the right carotid bulb and proximal internal carotid a rtery with smooth plaque and no clinically visualized stenosis Less than 50% stenosis right internal carotid artery Less than 50% stenosis right external carotid artery Patent and antegrade right vertebral Abnormal waveform pathology in the right common carotid and throughout the righ t internal carotid artery suspicious for more proximal central stenosis not imaged on this examina tion. Clinical correlation would be appropriate. Ordering Physician: Aga Arevalo Referring Physician: Bonnie Moise Performed By: Sivan Lofton, VY, RVT
== END | disposition home or self-care (01) ==
LOC: CVS 07:58
PROVIDERS: PCP Family Medicine; Referring Provider Physician Assistant; Visit Provider Physician Assistant
DX: I65.21 Occlusion and stenosis of right carotid artery (principal); R55 Syncope and collapse
CPT/HCPCS: 93882

== ENCOUNTER → 2022-05-14 | Outpatient (CLI) | payer MEDICARE, SELFPAY | END | disposition home or self-care (01) | PROVIDERS: PCP Family Medicine; Visit Provider Family Medicine | DX: N39.0 Urinary tract infection, site not specified (principal) | CPT/HCPCS: 87086; 87088 ==

== ENCOUNTER 2022-06-28 10:54 | Emergency (ER) | payer MEDICARE, SELFPAY ==
[2022-06-28 10:56] VITALS: BP 170/52; PULSE 66; RESP 14; TEMP 36.1; O2SAT 99; BMI 24.6
--- NOTE | 2022-06-28 11:11 | ED.VIS.LOWEX ---
HPI History of Present Illness Chief Complaint: Laceration Informant: patient and family Occured/Mechanism Comment: bleeding after minor accidental injury w/ toenail clipper Onset/Context/Timing Onset: Today Context: Sudden Onset Timing: Continuous Location: left 3rd toe Current Severity: 0/10 Maximum Severity: 0/10 Associated Symptoms Associated Symptoms: Negative for Parasthesia, Weakness or Loss of Funtion Narrative Narrative: Patient was clipping her toenails and she accidentally got the tip of her toe proper, left third toe, she is not in pain but she cannot get it to stop bleeding. She is on aspirin and clopidogrel, she has a history of both PAD and a coronary stent. She denies any other injuries or systemic symptoms. [facility] Medical History Alcohol abuse Ambulates with cane Amputated toe Anxiety Arthritis Atherosclerotic heart disease of [place] coronary artery without angina pectoris BBB (bundle branch block) Bone infection of left foot Cardiology follow-up encounter Carotid stenosis Carotid stenosis, bilateral Cellulitis of left foot Cellulitis of left thigh COPD (chronic obstructive pulmonary disease) Cystocele Depression Diabetes Dietary restriction Difficulty swallowing Easy bruising Essential hypertension Former smoker [place] of left foot History of restless legs syndrome HTN (hypertension) Hx of cardiovascular stress test Hx of echocardiogram Hx of edema Hx of heartburn Hx of shortness of breath Hx of syncope Hyperlipidemia Ischaemic rest pain of lower extremity Open wound of left foot Osteoarthritis Osteomyelitis of left foot PAD (peripheral artery disease) Peripheral arterial occlusive disease Post-op pain Presence of stent in coronary artery (~07/04/11) Prolapsed bladder RBBB (right bundle branch block) Rectocele Type 2 diabetes mellitus Wears dentures Wears eyeglasses Home Medications aspirin 81 mg chewable tablet 81 mg PO QHS health maintenance 06/07/16 [History Last Taken 02/22/22] clopidogrel 75 mg tablet 75 mg PO DAILY platelet inhibitor 06/07/16 [History Last Taken 02/22/22] multivitamin 1 tab PO DAILY SUPPLEMENT 04/28/19 [History Last Taken 06/12/20] omega-3 fatty acids 1,000 mg capsule (Fish Oil Concentrate) 1,000 mg PO DAILY supplement 04/28/19 [History Last Taken 06/12/20] lisinopril 20 mg tablet 20 mg PO BID BP 01/01/21 [History Last Taken 02/24/22 04:00] metoprolol tartrate 25 mg tablet 25 mg PO TID BP 01/01/21 [History Last Taken 02/24/22 04:00] coenzyme Q10 100 mg capsule (Co Q-10) 100 mg PO DAILY SUPPLEMENT 07/01/21 [History Last Taken Unknown] metformin 500 mg tablet,extended release 24 hr 500 mg PO DAILY DM 07/01/21 [History Last Taken Unknown] cholecalciferol (vitamin D3) 25 mcg (1,000 unit) tablet (Vitamin D3) 25 mcg PO DAILY SUPPLEMENT 09/26/21 [History Last Taken Unknown] nitroglycerin 0.4 mg sublingual tablet 0.4 mg sublingual Q5-15M PRN chest pain 09/26/21 [History Last Taken Unknown] amlodipine 2.5 mg tablet 2.5 mg PO DAILY BP 02/17/22 [History Last Taken 02/24/22 04:00] Allergy/AdvReac Type Severity Reaction Status Date / Time pravastatin AdvReac Severe myalgias Verified 06/28/22 10:56 [id number] Reductase AdvReac Severe myalgias Verified 06/28/22 10:56 Inhibitor Sulfa (Sulfonamide AdvReac Mild stomach Verified 06/28/22 10:56 Antibiotics) upset atorvastatin AdvReac myalgias Verified 06/28/22 10:56 Family History Father Diabetes Heart disease Brother Diabetes Colon cancer Brother Diabetes Surgical History Cataract extraction status of right eye History of colonoscopy History of heart artery stent History of hemorrhoidectomy History of hysterectomy History of left-sided carotid endarterectomy History of tonsillectomy Hx of toe surgery Presence of coronary angioplasty implant and graft (~07/04/11) S/P bladder repair Status post peripheral artery angioplasty Social History Smoking Status: Former smoker how long ago did patient quit smokin + years ago alcohol intake: current alcohol intake frequency: a few times a month Alcohol type: wine substance use type: does not use caffeine: Yes Type: coffee Number of servings: 2 what type of physical activity do you participate in: walking seatbelt use: always do you feel safe at home: Yes ROS ROS ED Constitutional Constitutional ED: Denies chills or fever(s) Musculoskeletal Musculoskeletal: Reports extremity pain; Denies neck pain Integumentary Reports wounds; Denies Abrasions or rash Neurologic Neurologic: Denies paresthesias or weakness EXAM Physical Exam Const Vital Signs: 06/28/22 10:56 Temperature 97 F L Temperature Source Temporal Pulse Rate 66 Respiratory Rate 14 Blood Pressure 170/52 H Blood Pressure Mean 91 Pulse Ox 99 Oxygen Delivery Method Room Air Positive well nourished and well developed General Appearance ED: well developed and NAD Neck full ROM and supple Back/Spine normal ROM and normal to inspection Extremity Extremity Narrative: Has had prior amputations of left toes 4 and 5. Minor superficial skin injury to the tip of toe #3, no bony tenderness or nail injury or subungual hematoma. Neuro oriented x3, no focal motor deficits and no sensory deficits noted Sensorium / Orientation: alert Psych mental status grossly normal and thought process normal Skin Skin Narrative: Very small superficial epidermal skin avulsion at the tip of the left third toe. Holding pressure on it keeps him from bleeding, however seems pressure is let up there is brisk capillary bleeding from the exposed dermis. This area is approximately 6 mm?. Rashes: no rashes MDM MDM MDM Narrative Medical decision making narrative: This patient is having difficulty controlling bleeding from this small skin avulsion basically because she is on several antiplatelet medications. This is a very small area, she is not having any dangerous hemorrhaging, so I do not think she needs to stop those medications. I placed a piece of Surgifoam on the wound along with some bacitracin, along with a tight wrap of Kerlix, which controlled the bleeding, given appropriate wound care instructions. I did wrap the Kerlix tightly around the toe, and then around the forefoot to anchor the dressing, afterwards the patient did have brisk cap refill of the other exposed toes. Discharge Plan Triage Chief Complaint: Laceration ED Provider: Jace Perrin Dx/Rx/DC Orders Clinical Impression: Avulsion of skin of toe Instructions: ED Skin Avulsion Prescriptions: No Action omega-3 fatty acids [Fish Oil Concentrate] 1,000 mg capsule 1,000 mg PO DAILY multivitamin Tablet 1 tab PO DAILY nitroglycerin 0.4 mg tablet, sublingual 0.4 mg SUBLINGUAL Q5-15M PRN (Reason: chest pain) metoprolol tartrate 25 mg tablet 25 mg PO TID lisinopril 20 mg tablet 20 mg PO BID metformin 500 mg tablet extended release 24 hr 500 mg PO DAILY coenzyme Q10 [Co Q-10] 100 mg capsule 100 mg PO DAILY cholecalciferol (vitamin D3) [Vitamin D3] 25 mcg (1,000 unit) tablet 25 mcg PO DAILY clopidogrel 75 MG tablet 75 mg PO DAILY aspirin 81 MG tablet,chewable 81 mg PO QHS amlodipine 2.5 mg tablet 2.5 mg PO DAILY Primary Care Provider: Tre Marks Referrals: Tre Marks MD [Primary Care Provider] - As Needed Activity Restrictions/Additional Instructions: Once you have the bleeding controlled, simply place a Band-Aid with some Neosporin over the affected area until it heals. Disposition Disposition: Home, Self Care
== END 2022-06-28 11:38 | disposition home or self-care (01) ==
LOC: ED 11:23
PROVIDERS: Emergency Provider Emergency Medicine; PCP Family Medicine; Visit Provider Emergency Medicine
DX: S91.106A Unspecified open wound of unspecified lesser toe(s) without damage to nail, initial encounter (principal); E11.51 Type 2 diabetes mellitus with diabetic peripheral angiopathy without gangrene; J44.9 Chronic obstructive pulmonary disease, unspecified; I25.10 Atherosclerotic heart disease of native coronary artery without angina pectoris; E78.5 Hyperlipidemia, unspecified; Z87.891 Personal history of nicotine dependence; Z95.5 Presence of coronary angioplasty implant and graft; I10 Essential (primary) hypertension; W27.8XXA Contact with other nonpowered hand tool, initial encounter
CPT/HCPCS: 99282

== ENCOUNTER 2023-01-24 10:18 | Emergency (ER) | payer MEDICARE, SELFPAY ==
[2023-01-24 10:19] VITALS: BP 184/61; PULSE 72; RESP 16; TEMP 36.4; O2SAT 100; BMI 25.0
--- NOTE | 2023-01-24 10:44 | EDS_ITS ---
HPI History of Present Illness Chief Complaint: Wound Narrative Narrative: 87-year-old female past medical history of diabetes, had previous toes amputated on her left foot, presents with pain in the ball of her right foot that she has had for the last few days. There was an area on the ball of her foot that was smaller and yellow in nature that has been there for months. She denies any fevers or chills. She states that the other day she started having pain with weightbearing and walking. She denies any purulent drainage from the area, no redness, no fevers or chills. She has not had nausea or vomiting, no other symptoms. Although she is diabetic and has seen Dr. Escudero and Dr. Art in the past, she did not return because she did not want other toes amputated. [facility] Medical History Alcohol abuse Ambulates with cane Amputated toe Anxiety Arthritis Atherosclerotic heart disease of [place] coronary artery without angina pectoris BBB (bundle branch block) Bone infection of left foot Cardiology follow-up encounter Carotid stenosis Carotid stenosis, bilateral Cellulitis of left foot Cellulitis of left thigh COPD (chronic obstructive pulmonary disease) Cystocele Depression Diabetes Dietary restriction Difficulty swallowing Easy bruising Essential hypertension Former smoker [place] of left foot History of restless legs syndrome HTN (hypertension) Hx of cardiovascular stress test Hx of echocardiogram Hx of edema Hx of heartburn Hx of shortness of breath Hx of syncope Hyperlipidemia Ischaemic rest pain of lower extremity Open wound of left foot Osteoarthritis Osteomyelitis of left foot PAD (peripheral artery disease) Peripheral arterial occlusive disease Post-op pain Presence of stent in coronary artery (~07/04/11) Prolapsed bladder RBBB (right bundle branch block) Rectocele Type 2 diabetes mellitus Wears dentures Wears eyeglasses Home Medications aspirin 81 mg chewable tablet 81 mg PO QHS health maintenance 06/07/16 [History Last Taken 02/22/22] clopidogrel 75 mg tablet 75 mg PO DAILY platelet inhibitor 06/07/16 [History Last Taken 02/22/22] multivitamin 1 tab PO DAILY SUPPLEMENT 04/28/19 [History Last Taken 06/12/20] omega-3 fatty acids 1,000 mg capsule (Fish Oil Concentrate) 1,000 mg PO DAILY supplement 04/28/19 [History Last Taken 06/12/20] lisinopril 20 mg tablet 20 mg PO BID BP 01/01/21 [History Last Taken 02/24/22 04:00] metoprolol tartrate 25 mg tablet 25 mg PO TID BP 01/01/21 [History Last Taken 02/24/22 04:00] coenzyme Q10 100 mg capsule (Co Q-10) 100 mg PO DAILY SUPPLEMENT 07/01/21 [History Last Taken Unknown] metformin 500 mg tablet,extended release 24 hr 500 mg PO DAILY DM 07/01/21 [History Last Taken Unknown] cholecalciferol (vitamin D3) 25 mcg (1,000 unit) tablet (Vitamin D3) 25 mcg PO DAILY SUPPLEMENT 09/26/21 [History Last Taken Unknown] amlodipine 2.5 mg tablet 2.5 mg PO DAILY BP 02/17/22 [History Last Taken 02/24/22 04:00] nitroglycerin 0.4 mg sublingual tablet 0.4 mg sublingual Q5-15M PRN chest pain #25 tabs 07/31/22 [Rx Last Taken Unknown] amoxicillin 875 mg-potassium clavulanate 125 mg tablet 1 tab PO BID #14 tabs 01/24/23 [Rx Last Taken Unknown] Allergy/AdvReac Type Severity Reaction Status Date / Time pravastatin AdvReac Severe myalgias Verified 07/31/22 09:50 [id number]-AWZ-EsU Reductase AdvReac Severe myalgias Verified 07/31/22 09:50 Inhibitor Sulfa (Sulfonamide AdvReac Mild stomach Verified 07/31/22 09:50 Antibiotics) upset atorvastatin AdvReac myalgias Verified 07/31/22 09:50 Family History Father Diabetes Heart disease Brother Diabetes Colon cancer Brother Diabetes Surgical History Cataract extraction status of right eye History of colonoscopy History of heart artery stent History of hemorrhoidectomy History of hysterectomy History of left-sided carotid endarterectomy History of tonsillectomy Hx of toe surgery Presence of coronary angioplasty implant and graft (~07/04/11) S/P bladder repair Status post peripheral artery angioplasty Social History Smoking Status: Former smoker how long ago did patient quit smokin + years ago alcohol intake: current alcohol intake frequency: a few times a month Alcohol type: wine substance use type: does not use caffeine: Yes Type: coffee Number of servings: 2 what type of physical activity do you participate in: walking seatbelt use: always do you feel safe at home: Yes ROS ROS ED ROS Narrative Constitutional: No fever, no chills. HEENT: No sore throat. No neck pain. No loss of vision. No rhinorrhea. Cardiovascular: No chest pain. No palpitations. No pedal edema. Respiratory: No cough, no shortness of breath. Abdominal: No abdominal pain. No nausea. No vomiting. Genitourinary: No dysuria. No hematuria. Musculoskeletal: No myalgias. Right foot pain and ball of right foot with stand ing and walking. Neurologic: No headaches. No dizziness. No lightheadedness. Skin: No rash. No change in color. Psychiatric: No depression. No anxiety. EXAM Physical Exam Narrative Exam Narrative: Afebrile. Vital signs noted. Nontoxic-appearing. HEENT: Normocephalic. Atraumatic. PERRL, EOMI. Neck soft and supple. No point tenderness or step off. Cardiovascular: Regular rate and rhythm. No murmurs, rubs, or gallops appreciated. Respiratory: No tachypnea. Lungs clear to auscultation bilaterally. Gastrointestinal: Abdomen soft, nontender, with normoactive bowel sounds. No rebound or guarding. Neurological: Awake. Alert. Nonfocal, nonlateralizing. Skin: No rash. Normal color. No pallor. Musculoskeletal: No pedal edema. Full range of motion extremities. Inspection of the right foot and the ball shows a corn with hardened skin surrounding with mild tenderness to palpation, no erythema, no purulent drainage. There is a small hole in the center of the corn. Const Vital Signs: 01/24/23 10:19 Temperature 97.5 F L Temperature Source Temporal Pulse Rate 72 Respiratory Rate 16 Blood Pressure 184/61 H Blood Pressure Mean 102 Pulse Ox 100 Oxygen Delivery Method Room Air MDM MDM MDM Narrative Medical decision making narrative: I reviewed the patient's prior records. I do feel that this is a corn that will require podiatric treatment. I do not feel that this is necessarily an ulcer that would require further work-up. She will be placed on prophylactic antibiotics. I do not feel laboratory work or imaging is indicated. I have low concern for osteomyelitis. She was written a prescription for Augmentin. She will take [id number] medications as needed. I did discuss patient with Dr. Reynoso with podiatry who agrees with outpatient follow-up on Thursday after the holiday. Return instructions to the emergency department were reviewed. Disposition is discharged home in stable condition. History & Record Review Discussion w/independent historian: Patient and Family Additional record(s) reviewed:: Prior ED visit Discharge Plan Triage Chief Complaint: Wound ED Provider: Norm Zhang Dx/Rx/DC Orders Clinical Impression: Foot pain, [place] of foot Instructions: Treating Corns and Calluses, Pressure Injury Dc Prescriptions: New amoxicillin-pot clavulanate 875-125 mg tablet 1 tab PO BID Qty: 14 0RF No Action omega-3 fatty acids [Fish Oil Concentrate] 1,000 mg capsule 1,000 mg PO DAILY multivitamin Tablet 1 tab PO DAILY nitroglycerin 0.4 mg tablet, sublingual 0.4 mg SUBLINGUAL Q5-15M PRN (Reason: chest pain) Qty: 25 3RF metoprolol tartrate 25 mg tablet 25 mg PO TID lisinopril 20 mg tablet 20 mg PO BID metformin 500 mg tablet extended release 24 hr 500 mg PO DAILY coenzyme Q10 [Co Q-10] 100 mg capsule 100 mg PO DAILY cholecalciferol (vitamin D3) [Vitamin D3] 25 mcg (1,000 unit) tablet 25 mcg PO DAILY clopidogrel 75 MG tablet 75 mg PO DAILY aspirin 81 MG tablet,chewable 81 mg PO QHS amlodipine 2.5 mg tablet 2.5 mg PO DAILY Primary Care Provider: Tre Marks Referrals: Tre Marks MD [Primary Care Provider] - As Needed Samson Reynoso DPM [Med Staff - Active Staff] - 01/27/23 Mati Escudero DPM [Med Staff - Active Staff] - 01/27/23 Activity Restrictions/Additional Instructions: Follow-up with podiatry on Thursday. Take antibiotics as directed. Return with fever, drainage of pus from the wound, new or worsening symptoms. Disposition Disposition: Home, Self Care
== END 2023-01-24 11:22 | disposition home or self-care (01) ==
PROVIDERS: Emergency Provider Emergency Medicine; PCP Family Medicine; Visit Provider Emergency Medicine
DX: M79.671 Pain in right foot (principal); L84 Corns and callosities; I25.10 Atherosclerotic heart disease of native coronary artery without angina pectoris; Z87.891 Personal history of nicotine dependence; Z95.5 Presence of coronary angioplasty implant and graft
CPT/HCPCS: 99282

== ENCOUNTER → 2023-02-12 | Outpatient (CLI) | payer MEDICARE, SELFPAY ==
--- NOTE | 2023-02-12 12:29 | ART_ITS ---
Reason For Study: PVD Procedure A bilateral lower extremity continuous wave Doppler with analog waveform analysis,segmental pressures,and ankle brachial indexes without exercise. Left Segmental Pressures Left brachial= 164mmHg. Left thigh = >254mmHg. Left calf = 86mmHg. Left posterior tibial artery = 70mmHg. Left dorsalis pedis artery = 43mmHg. Left digit = 29 mmHg. The left posterior tibial artery waveforms are monophasic. The left dorsalis pedis waveforms are monophasic. Right Segmental Pressures Right brachial= 54mmHg. Right thigh = >254mmHg. Right calf = 103mmHg. Right dorsalis pedis artery = 67mmHg. The right dorsalis pedis waveforms are monophasic. Unable to acquire [employer] and Digit pressures.. . Monophasic waveforms and abnormal WBI noted at Rt Brachial A. Indices The right ankle brachial index by the dorsalis pedis is 0.41. The left ankle brachial index by the posterior tibial artery is 0.43. The left ankle brachial index by the dorsalis pedis is 0.26. The left digital-brachial index is 0.18. . Preliminary results delivered to Dr. Tiwari's office. VL/Lower Ext Art Exam w/o Exercis Interpretation Summary Right JENY 0.41, severe arterial insufficiency. Doppler/PVR waveforms and segmen shaheen pressures reveal aorto-iliac, SFA/popliteal, tibial disease Left JENY 0.43, severe arterial insufficiency. Doppler/PVR waveforms and segment al pressures reveal aorto-iliac, SFA/popliteal disease Ordering Physician: Rohit Tiwari Referring Physician: Mc Marks MD Performed By: Beka Jeffrey RVT
== END | disposition home or self-care (01) ==
LOC: CVS 12:18
PROVIDERS: PCP Family Medicine; Referring Provider Podiatrist; Visit Provider Podiatrist
DX: I73.9 Peripheral vascular disease, unspecified (principal)
CPT/HCPCS: 93923

== ENCOUNTER → 2023-02-26 | Outpatient (CLI) | payer MEDICARE, SELFPAY ==
[2023-02-26 11:34] LABS: Creatinine, Serum 0.68 mg/dL (0.55-1.02); EST Glomerular Filtration Rate 87 mL/min (>60); Est Glom Filt Rate - Afr Amer 105 mL/min (>60)
== END | disposition home or self-care (01) ==
LOC: LAB 10:05
PROVIDERS: PCP Family Medicine; Referring Provider Physician Assistant; Visit Provider Physician Assistant
DX: I10 Essential (primary) hypertension (principal); E11.9 Type 2 diabetes mellitus without complications
CPT/HCPCS: 36415; 82565

== ENCOUNTER → 2023-02-27 | Outpatient (CLI) | payer MEDICARE, SELFPAY ==
--- NOTE | 2023-02-27 10:33 | CDU_ITS ---
Reason For Study: Carotid stenosis Rt. Velocities/BP Lt. Velocities/BP Prox CCA 0 cm/sec. Prox CCA 96.6/21.7 cm/sec. Mid CCA 0 cm/sec. Mid CCA 78.4/16.3 cm/sec. Dist CCA 0 cm/sec. Dist CCA 96.6/18.1 cm/sec. Prox ICA 52.8/3.7 cm/sec. Prox ICA 96.6/19.9 cm/sec. Mid ICA 24.3 cm/sec. Mid ICA 131.3/29 cm/sec. Dist ICA 31.3 cm/sec. Dist ICA 127.1/26.7 cm/sec. Lt. ICA/CCA = 1.36. Prox ECA 127.7/7.1 cm/sec. Lt. Vert. 70.5/8.4 cm/sec. Right Extracranial The right common carotid artery is occluded. There is heterogeneous, irregular atherosclerotic plaque noted in the right internal carotid artery. There is heterogeneous, irregular atherosclerotic plaque noted in the right external carotid artery. The right external carotid artery is not well visualized. Retrograde flow noted in the right ECA. Retrograde flow noted in the right vertebral artery. Left Extracranial There is heterogeneous, irregular atherosclerotic plaque noted in the left common carotid artery. There is heterogeneous, irregular atherosclerotic plaque noted in the left internal carotid artery. There is heterogeneous, irregular atherosclerotic plaque noted in the left external carotid artery. Antegrade flow is noted in the left vertebral artery. Procedure Carotid Duplex 52298. This is a Carotid Duplex examination using B-mode, color flow and specral Doppler. Preliminary report given to Kasandra RAMIRES. Exam performed in department. VL/Carotid Duplex Ultrasound Interpretation Summary Occlusion right common carotid artery. Retrograde flow noted within the right e xternal carotid artery with low flow velocity antegrade within the right internal carotid arter y Irregular plaque within the left internal carotid artery with 50 to 69% stenosi s of the left internal carotid Less than 50% stenosis left external carotid artery Retrograde flow right vertebral artery Antegrade flow left vertebral artery Acute change of occlusion in the right common carotid Ordering Physician: Noble Ball Referring Physician: Mc Marks MD Performed By: Daina Arvizu RVT
== END | disposition home or self-care (01) ==
LOC: CVS 10:31
PROVIDERS: PCP Family Medicine; Referring Provider Surgery; Visit Provider Surgery
DX: R55 Syncope and collapse (principal); I65.29 Occlusion and stenosis of unspecified carotid artery
CPT/HCPCS: 93880

== ENCOUNTER → 2023-03-06 | Outpatient (CLI) | payer MEDICARE, SELFPAY ==
--- NOTE | 2023-03-06 07:23 | CT_ITS ---
HISTORY: PAD, hx angioplasty, R foot wound-(middle toe). TECHNIQUE: Axial CT angiography multi-detector data acquisition was obtained from the abdomen and pelvis to the bilateral lower extremities following intravenous administration of 100 mL Isovue-370. Axial images and MIP images were reconstructed from the axial data set. Post-processing of the angiographic images was performed, with multiplanar reformation and 3D reconstruction. Individualized dose optimization techniques were used for this CT. 1017 images. COMPARISON: None. Descriptors of Narrowing: None (0%) Mild (< 50%) Moderate (50-70%) Severe (70-90%) Subtotal/Total Occlusion (90-100%) Non-Evaluable (technically non-diagnostic) FINDINGS: LOWER CHEST: Lung bases clear. BOWEL: Mild distal esophageal wall thickening, possible sequela of esophagitis. Bowel nondilated. Appendix not visualized. Colonic diverticulosis without pericolonic inflammation. Moderate stool in the colon. PERITONEUM: No significant free fluid. LIVER: No enhancing mass. GALLBLADDER: Gallbladder contracted. SPLEEN/PANCREAS: Homogeneous and nonenlarged. KIDNEYS/ADRENAL GLANDS: Unremarkable. PELVIC ORGANS: Absent uterus. OSSEOUS STRUCTURES: Mild degenerative change and osteopenia. ABDOMINAL AORTA: Calcified plaque without significant stenosis, aneurysm, or dissection flap. CELIAC AXIS: Calcified plaque at the origin with greater than 50% stenosis. SUPERIOR MESENTERIC ARTERY: Calcified plaque at the origin with approximately 50% stenosis. RENAL ARTERIES: Calcified plaque at the origins of the single bilateral renal arteries with approximately 50% stenosis. INFERIOR MESENTERIC ARTERY: Patent with calcified plaque at the origin. ILIAC ARTERIES: Calcified plaque in the bilateral common iliac arteries with less than 50% stenosis. Calcified plaque of the origins of the bilateral internal iliac arteries with greater than 50% stenosis. Mild calcified plaque at the bilateral external iliac arteries with up to 30% stenosis. RIGHT LOWER EXTREMITY: Mild soft tissue swelling of the ankle and foot. Subacute-chronic nondisplaced fracture at the base of the fifth proximal phalanx. COMMON FEMORAL ARTERY: Calcified plaque with approximately 50% stenosis. DEEP FEMORAL ARTERY: Calcified plaque with less than 50% stenosis. SUPERFICIAL FEMORAL ARTERY: Calcified plaque at the origin with less than 50% stenosis. Approximately 40% stenosis proximal to mid. Approximately 60% stenosis mid to distally. POPLITEAL ARTERY: Greater than 75% stenosis. 3 VESSEL RUNOFF: Severe calcified plaque at the tibioperoneal trunk extending into the origins of the 3 vessel runoff, limiting evaluation. Patent anterior and posterior tibial arteries of the mid to distal leg extending to the ankle with flow followed into the foot. Occluded segments of the peroneal artery. LEFT LOWER EXTREMITY: Moderate soft tissue swelling of the ankle and foot. Amputation of the fourth and fifth toes. Erosion of the fifth metatarsal head. COMMON FEMORAL ARTERY: Adjacent surgical clips without significant stenosis. Patent stent. DEEP FEMORAL ARTERY: At least moderate stenosis. SUPERFICIAL FEMORAL ARTERY: Atherosclerosis with approximately 60% stenosis proximal to mid and 75% stenosis distally. POPLITEAL ARTERY: 60% stenosis proximally with occlusion or near occlusion distally. 3 VESSEL RUNOFF: Severe calcified plaque at the tibioperoneal trunk extending at the origins of the 3 vessel runoff, limiting evaluation. Patent peroneal artery in the leg. Diminished flow in the anterior tibial artery but flow identified in the foot. Patent posterior tibial artery with flow followed past the ankle into the foot. CT/CTA Abd w/Runoff W/WO Contrast IMPRESSION: Moderate stenosis of the right superficial femoral artery. Severe stenosis of the right popliteal artery. Patent left femoral stent. Moderate-severe stenosis of the left superficial femoral artery. Moderate stenosis of the left popliteal artery with occlusion or near occlusion distally. Patent flow into the bilateral feet as above. Moderate atherosclerosis and peripheral vascular disease as above. Electronically Signed: Lisbet Sosa MD at 9:37 EDT ,
== END | disposition home or self-care (01) ==
LOC: CVS 07:20 → CT 07:21
PROVIDERS: PCP Family Medicine; Referring Provider Physician Assistant; Visit Provider Physician Assistant
DX: I77.9 Disorder of arteries and arterioles, unspecified (principal); S91.301A Unspecified open wound, right foot, initial encounter
CPT/HCPCS: 75635; Q9967

== ENCOUNTER 2023-03-18 12:16 | Emergency (ER) | payer MEDICARE, SELFPAY ==
[2023-03-18 12:17] VITALS: BP 207/70; PULSE 68; RESP 16; TEMP 36.4; O2SAT 93; BMI 29.6
--- NOTE | 2023-03-18 15:04 | RAD_ITS ---
STUDY: X-RAY - RIGHT FOOT CLINICAL: Female, 87 years old. Pain involving the third toe. TECHNIQUE: 3 view(s) of the foot. COMPARISON: None. FINDINGS: Normal talus, calcaneus, and tarsal bones. Normal visualized subtalar, talonavicular, calcaneocuboid, tarsal and tarsometatarsal articulations. Normal metatarsi. Normal metatarsophalangeal joint of the great toe. Normal tibial and fibular sesamoid bones. Normal interphalangeal joint of the great toe. Normal phalanges of the great toe. Normal second through fifth metatarsophalangeal joints. Normal interphalangeal joints and phalanges of the lesser toes. The soft tissue structures are unremarkable. RAD/Foot min 3 Views IMPRESSION: Normal x-ray examination of the foot. Electronically Signed: Rigo Avalos MD at 15:21 EDT ,
--- NOTE | 2023-03-18 15:14 | ED.VIS.LOWEX ---
HPI History of Present Illness Chief Complaint: Lower Extremity Injury Detail of Chief Complaint: Has because of pain to right foot, black spot tip of right third toe and ra Informant: patient and family (States she has been wiping her feet with Clorox wipes and applying peroxide.) Occured/Mechanism Comment: Has necrotic tip right third toe. She is presently on doxycycline. Onset/Context/Timing Onset: Days Context: Sudden Onset Timing: Continuous Quality of Pain: Burning Location: Right foot Current Severity: Mild Maximum Severity: Severe Worsened by: Light touch Relieved by: Nothing Associated Symptoms Associated Symptoms: Positive for Parasthesia; Negative for Weakness or Loss of Funtion Narrative Narrative: Is an 87-year-old woman with history of type 2 diabetes with diabetic neuropathy. She is not on gabapentin, Tegretol or Lyrica for her neuropathic pain. She also has history of peripheral arterial disease, atherosclerotic heart disease, essential hypertension, osteomyelitis of toes left foot, and carotid stenosis. Family informed me outside the room that she has been wiping her feet with Clorox wipes and applying peroxide. She denies all of this. She states she is applying Vaseline and using baby wipes. She does not know if the baby wipes or scented. Tetanus Immunization: 5-10 years Prior similar symptoms: Yes Recent Illness/Hospitalization: Yes [facility] Medical History Alcohol abuse Ambulates with cane Amputated toe Anxiety Arthritis Atherosclerotic heart disease of [place] coronary artery without angina pectoris BBB (bundle branch block) Bone infection of left foot Cardiology follow-up encounter Carotid stenosis Carotid stenosis, bilateral Cellulitis of left foot Cellulitis of left thigh COPD (chronic obstructive pulmonary disease) Cystocele Depression Diabetes Dietary restriction Difficulty swallowing Easy bruising Essential hypertension Former smoker Gangrene of left foot History of restless legs syndrome HTN (hypertension) Hx of cardiovascular stress test Hx of echocardiogram Hx of edema Hx of heartburn Hx of shortness of breath Hx of syncope Hyperlipidemia Ischaemic rest pain of lower extremity Open wound of left foot Osteoarthritis Osteomyelitis of left foot PAD (peripheral artery disease) Peripheral arterial occlusive disease Post-op pain Presence of stent in coronary artery (~07/04/11) Prolapsed bladder RBBB (right bundle branch block) Rectocele Type 2 diabetes mellitus Wears dentures Wears eyeglasses Home Medications aspirin 81 mg chewable tablet 81 mg PO QHS health maintenance 06/07/16 [History Last Taken 02/22/22] clopidogrel 75 mg tablet 75 mg PO DAILY platelet inhibitor 06/07/16 [History Last Taken 02/22/22] multivitamin 1 tab PO DAILY SUPPLEMENT 04/28/19 [History Last Taken 06/12/20] omega-3 fatty acids 1,000 mg capsule (Fish Oil Concentrate) 1,000 mg PO DAILY supplement 04/28/19 [History Last Taken 06/12/20] lisinopril 20 mg tablet 20 mg PO BID BP 01/01/21 [History Last Taken 02/24/22 04:00] metoprolol tartrate 25 mg tablet 25 mg PO TID BP 01/01/21 [History Last Taken 02/24/22 04:00] coenzyme Q10 100 mg capsule (Co Q-10) 100 mg PO DAILY SUPPLEMENT 07/01/21 [History Last Taken Unknown] metformin 500 mg tablet,extended release 24 hr 500 mg PO DAILY DM 07/01/21 [History Last Taken Unknown] cholecalciferol (vitamin D3) 25 mcg (1,000 unit) tablet (Vitamin D3) 25 mcg PO DAILY SUPPLEMENT 09/26/21 [History Last Taken Unknown] nitroglycerin 0.4 mg sublingual tablet 0.4 mg sublingual Q5-15M PRN chest pain #25 tabs 02/12/23 [Rx Last Taken Unknown] doxycycline hyclate 100 mg capsule 100 mg PO BID 03/09/23 [History Last Taken Unknown] Allergy/AdvReac Type Severity Reaction Status Date / Time pravastatin AdvReac Severe myalgias Verified 03/18/23 12:19 Ahyprto-LQL-AqS Reductase AdvReac Severe myalgias Verified 03/18/23 12:19 Inhibitor Sulfa (Sulfonamide AdvReac Mild stomach Verified 03/18/23 12:19 Antibiotics) upset atorvastatin AdvReac myalgias Verified 03/18/23 12:19 Family History Father Diabetes Heart disease Brother Diabetes Colon cancer Brother Diabetes Surgical History Cataract extraction status of right eye History of colonoscopy History of heart artery stent History of hemorrhoidectomy History of hysterectomy History of left-sided carotid endarterectomy History of tonsillectomy Hx of toe surgery Presence of coronary angioplasty implant and graft (~07/04/11) S/P bladder repair Status post peripheral artery angioplasty Social History Smoking Status: Former smoker how long ago did patient quit smokin + years ago alcohol intake: current alcohol intake frequency: a few times a month Alcohol type: wine substance use type: does not use caffeine: Yes Type: coffee Number of servings: 2 what type of physical activity do you participate in: walking seatbelt use: always do you feel safe at home: Yes ROS ROS ED Constitutional Constitutional ED: Denies chills, fever(s), subjective, sweats or weight loss Cardiovascular Cardiovascular: Denies chest pain, palpitations or racing heartbeat Respiratory/Chest Respiratory/Chest: Denies cough or dyspnea Integumentary Reports rash; Denies abscess or Abrasions Neurologic Neurologic: Reports paresthesias; Denies headache(s) or weakness Psychiatric Psychiatric: Denies anxiety Endocrine Endocrinology: Denies polydipsia or polyuria Hematologic/Lymphatic Hematologic/Lymphatic: Denies easy bleeding or easy bruising EXAM Physical Exam Const Vital Signs: 03/18/23 12:17 Temperature 97.5 F L Temperature Source Temporal Pulse Rate 68 Respiratory Rate 16 Blood Pressure 207/70 H Blood Pressure Mean 115 Pulse Ox 93 Oxygen Delivery Method Room Air Positive well nourished and well developed Constitutional Narrative: She was noted to be elevated. Patient is asymptomatic. Repeat heart rate is 68. General Appearance ED: well developed and NAD HEENT Reports moist mucous membranes normocephalic and atraumatic Eyes PERRL Eyes Narrative: Documents intact. Sclera is anicteric. Neck full ROM and supple Chest Wall inspection of chest normal and palpation of chest normal Resp normal respiratory effort, no retractions and clear to auscultation bilaterally Cardio regular rate, regular rhythm, S1 normal heart sound, S2 normal heart sound and no murmurs Extremity Negative for normal to inspection Extremity Narrative: Has stigmata of peripheral arterial disease. Patient has sensitivity to light touch. There is evidence of a chemical burn to the dorsum of her foot. There is no warmth, induration, lymphangitis or popliteal lymphadenopathy. There is no fluctuance. The rash is not warm. The tip of the right third toe is necrotic. There is breakdown of skin with no drainage. There is no odor noted. PT and DP pulse are not palpable. There is Doppler flow. Refill is normal. Neuro oriented x3, CN's II-XII intact bilaterally, moves all extremities and no sensory deficits noted Sensorium / Orientation: alert Psych mental status grossly normal Skin Skin Narrative: Described under the extremity portion of the medical record. Lesions: no lesions Rashes: no rashes MDM MDM MDM Narrative Medical decision making narrative: Is on appropriate antibiotic for diabetic foot infection. There is a small necrotic area. There is evidence of a chemical burn. Patient been instructed to apply nothing to her foot. She was instructed to continue taking her doxycycline. She was instructed to follow-up with the physician who was prescribed antibiotics and to follow-up with Dr. Tenorio for blood pressure recheck. Radiography Chest X-Ray - ED: Read by ED Physician (Review x-ray of the right foot reveals no bony abnormality. There is no fracture, lytic lesions, subluxation or dislocation. Present telemetry reviewed interpreted by id at [id number].) Diagnostic Testing: Clinical Impression(s) from Imaging Studies Foot X-Ray 03/18/23 15:04 IMPRESSION: Normal x-ray examination of the foot. Electronically Signed: Rigo Avalos MD at 15:21 EDT , Discharge Plan Triage Chief Complaint: Lower Extremity Injury ED Provider: Eloy Loco Dx/Rx/DC Orders Clinical Impression: Idiopathic aseptic necrosis of right toe(s), PAD (peripheral artery disease), Delayed wound healing, Chemical dermatitis, Diabetic neuropathy, type II diabetes mellitus, Asymptomatic hypertension Instructions: Understanding Osteonecrosis, ED Contact Dermatitis, ED Hypertension, Established Prescriptions: No Action omega-3 fatty acids [Fish Oil Concentrate] 1,000 mg capsule 1,000 mg PO DAILY multivitamin Tablet 1 tab PO DAILY metoprolol tartrate 25 mg tablet 25 mg PO TID lisinopril 20 mg tablet 20 mg PO BID metformin 500 mg tablet extended release 24 hr 500 mg PO DAILY coenzyme Q10 [Co Q-10] 100 mg capsule 100 mg PO DAILY cholecalciferol (vitamin D3) [Vitamin D3] 25 mcg (1,000 unit) tablet 25 mcg PO DAILY nitroglycerin 0.4 mg tablet, sublingual 0.4 mg SUBLINGUAL Q5-15M PRN (Reason: chest pain) Qty: 25 3RF doxycycline hyclate 100 mg capsule 100 mg PO BID clopidogrel 75 MG tablet 75 mg PO DAILY aspirin 81 MG tablet,chewable 81 mg PO QHS Primary Care Provider: Tre Marks Referrals: Tre Marks MD [Primary Care Provider] - 5-7 Days Rohit Tiwari DPM [Med Staff - Active Staff] - 3-5 Days Activity Restrictions/Additional Instructions: 1. Did not apply anything to your foot other than Eucerin cream 2-3 times a day 2. Take antibiotic until gone 3. You need to follow-up with Dr. Tenorio for repeat blood check 4. You need follow-up appointment with Dr. Tiwari regarding your toe Disposition Disposition: Home, Self Care
[2023-03-18 15:47] VITALS: BP 150/75; PULSE 70; RESP 16; O2SAT 96
== END 2023-03-18 15:48 | disposition home or self-care (01) ==
LOC: ED 15:25
PROVIDERS: Emergency Provider Emergency Medicine; PCP Family Medicine; Visit Provider Emergency Medicine
DX: E11.51 Type 2 diabetes mellitus with diabetic peripheral angiopathy without gangrene (principal); I96 Gangrene, not elsewhere classified; E11.40 Type 2 diabetes mellitus with diabetic neuropathy, unspecified; L25.3 Unspecified contact dermatitis due to other chemical products; I25.10 Atherosclerotic heart disease of native coronary artery without angina pectoris; I10 Essential (primary) hypertension; Z87.891 Personal history of nicotine dependence
CPT/HCPCS: 73630; 99282

== ENCOUNTER → 2023-03-31 | Outpatient (CLI) | payer MEDICARE, SELFPAY | END | disposition home or self-care (01) | PROVIDERS: Visit Provider Family Medicine | DX: R35.0 Frequency of micturition (principal) | CPT/HCPCS: 87086; 87088 ==

== ENCOUNTER → 2023-04-10 | Outpatient (CLI) | payer MEDICARE, SELFPAY | END | disposition home or self-care (01) | LOC: MFPLAB 09:57 | PROVIDERS: PCP Family Medicine; Visit Provider Family Medicine | DX: Z00.00 Encounter for general adult medical examination without abnormal findings (principal) ==

== ENCOUNTER 2023-04-15 08:04 | Day surgery (SDC) | payer MEDICARE, SELFPAY ==
[2023-04-14 07:00] VITALS: BMI 25.7
[2023-04-15 08:20] LABS: Absolute Lymphocyte Count 1.57 X10^3/uL (0.83-4.51); Absolute Neutrophil Count 5.9 X10^3/uL (2.0-7.7); Basophil# 0.05 X10^3/uL; Basophil% 0.6 % (0-1); Eosinophil# 0.13 X10^3/uL; Eosinophils% 1.6 % (0-5); Hematocrit 39.5 % (37-47); Hemoglobin 12.4 g/dL (12.0-15.0); Lymphocyte # 1.57 X10^3/ul (0.83-4.51); Lymphocyte % 18.7 % (19-41); Mean Corp Hgb Conc 31.4 g/dL (32-36); Mean Corpuscular Hgb 28.2 pg (27.0-32.0); Mean Corpuscular Volume 89.8 fL (81-99); Mean Platelet Vol. 8.7 fl (6.2-12.0); Monocyte# 0.76 X10^3/uL; Monocyte% 9.1 % (0-10); NRBC Flagged by Analyzer 0 % (0-5); Neutrophil # 5.85 X10^3/uL (2.7-7.7); Neutrophil % 69.8 % (47-70); Platelet Count 449 K/mm3 (150-450); RBC Distribution Width SD 42.7 fl (35.1-43.9); White Blood Count 8.4 K/mm3 (4.4-11.0)
--- OUTSIDE RECORDS SUMMARY | 2023-04-15 08:30 | XMS RPT_ITS | CCD ---
Author Name Unknown Address 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 Role Phone Ashlyn Wells Unavailable Unavailable JOYCELYN BRICENO Unavailable Unavailable JANAKZI MARTINONETH E Unavailable Unavailable JANAK, JOYCELYN Unavailable Unavailable JANAK, JOYCELYN Unavailable Unavailable MAURO WELLS Unavailable Unavailabl e JANAK JOYCELYN Unavailable Unavailable JANAK JOYCELYN Unavailable Unavailable MAURO WELLS Unavailable Unavailabl e Allergies Allergy Classification Reported Allergen(s) Allergy Type Date of Onset Reaction(s) Facility (2 sources) Sulfonamides (Antibiotic); Translations: [SULFA (SULFONAMIDE ANTIBIOTICS)] Propensity to adverse reactions to drug (disorder) 5 [facility] Other [facility] Medications Completed/Discontinued Medications Medication Drug Class(es) Dates Sig (Normalized) Sig (Original) Drug Treatment Unknown - unknown (1 source) No information available. Problems Problem Classification Problem Date Documented Date Episodic/Chronic Coronary atherosclerosis and other heart disease (2 sources) Atherosclerotic heart disease of [place] coronary artery without angina pectoris; Translations: [Atherosclerotic heart disease of [place] coronary artery without angina pectoris] Onset: 07-28-2017 Chronic Essential hypertension (1 source) Essential (primary) hypertension; Translations: [Essential (primary) hypertension] Onset: 07-28-2017 Chronic Occlusion or stenosis of precerebral arteries (1 source) Carotid artery stenosis; Translations: [Occlusion and stenosis of bilateral carotid arteries] Onset: 03-24-2017 03-24-2017 Chronic Other circulatory disease (1 source) Peripheral arterial occlusive disease; Translations: [Peripheral vascular disease, unspecified] Onset: 03-24-2017 03-24-2017 Chronic Unclassified (1 source) Unknown / UNK(Unknown) Onset: 07-28-2017 Results Test Name Value Interpretation Reference Range Facil ity Encounters Encounter Date Encounter Type Care Provider Facility Start: 03-30-2018 Ambulatory JOYCELYN BRICENO Facility :[facility] Start: 07-28-2017 End: 07-28-2017 Ambulatory JOYCELYN BRICENO [facility] Procedures Date Procedure Procedure Detail Performing Clinician Start: 10-11-2020 Ecg routine ecg w/le ast 12 lds i&r only Plan of Treatment Date Care Activity Detail Author Start: 03-24-2017 End: 03-24-2017 Carotid duplex Carotid duplex [facility] Work Phone: Start: 03-24-2017 End: 03-24-2017 N-invas physiologic std lxtr art compl bi PVR with exercise [facility] Work Phone: Start: 03-24-2017 End: 03-24-2017 Other Referral Other Referral [facility] Work Phone: Payers Date Payer Category Payer Policy ID Private Health Insurance [id number] Discharge summary note 10-12-2020 Note Date & Type Note Facility 10-12-2020 Note [facility] Summary Purpose Family History No Family History Records FoundNo Family History Records FoundNo Family History Records FoundNo Family History Records Found Advance Directives No Advanced Directives Records FoundNo Advanced Directives Records FoundNo Advanced Directives Records FoundNo Advanced Directives Records Found Additional Source Comments INFORMATION SOURCE (unrecogn ized section and content) DATE CREATED AUTHOR AUTHOR'S ORGANIZ ATION 11/13/2017 [facility] DATE CREATED AUTHOR AUTHOR'S ORGANIZ ATION 10/16/2020 [facility] ([place]) DATE CREATED AUTHOR AUTHOR'S ORGANIZ ATION 04/16/2021 [facility] FOR RECORDS PERTAINING TO PATIENTS WHO ARE OR HAVE BEEN ENROLLED IN A CHEMICAL DEPENDENCY/SUBSTANCEABUSE PROGRAM, SOME INFORMATION MAY BE OMITTED. This clinical summary was aggregated from multiple sources. Caution should be exercised in using it in the provision of clinical care. This summary normalizes information from multiple sources, and as a consequence, information in this document may materially change the coding, format and clinical context of patient data. In addition, data may be omitted in some cases. CLINICAL DECISIONS SHOULD BE BASED ON THE PRIMARY CLINICAL RECORDS. [employer] provides no warranty or guarantee of the accuracy or completeness of information in this document.
[2023-04-15 08:33] LABS: Anion Gap 4 (5-15); BUN 16 mg/dL (7-18); BUN/Creat Ratio 21.1 RATIO (10-20); Calcium,Total 9.4 mg/dL (8.5-10.1); Chloride 98 mmol/L (98-107); Creatinine, Serum 0.76 mg/dL (0.55-1.02); EST Glomerular Filtration Rate 77 mL/min (>60); Est Glom Filt Rate - Afr Amer 93 mL/min (>60); Estimated Creatinine Clearance 31.35 ml/min; Glucose 135 mg/dL (74-106); Potassium 4.4 mmol/L (3.5-5.1); Sodium Level 131 mmol/L (136-145)
[2023-04-15 15:41] LABS: ACT Activated Clotting Time 257 sec (74-137)
--- NOTE | 2023-04-15 17:03 | OP.PCM_ITS ---
Report of Operation Date of Procedure: 04/15/23 Pre-Operative Diagnosis: atherosclerosis with ulceration RLE Post-Operative Diagnosis: same Surgery/Procedure Performed:: aortogram, RLE runoff IVUS right AT, SFA/popliteal atherectomy/DCB right sfa/popliteal angioplasty right AT Surgeon: Keanu Mccray Type of Anesthesia: Local and Sedation,Conscious Estimated Blood Loss (mL): 5 Description of Procedure: HPI: Patient is an 87-year-old female with ulceration right lower extremity and noninvasive vascular studies which suggest arterial insufficiency though vessels are noncompressible. She had CT angiography which revealed popliteal occlusion and poor visualization of the tibial vessels with uncertain patency in the infrapopliteal vessels. She presents now for angiography with possible intervention. Description of procedure: Upon obtaining form consent and verification correct patient procedure site patient taken to the [facility] where she was positioned prepped and draped in usual fashion. Time was performed consultation administered Versed and fentanyl. Skin overlying the left common femoral artery was anesthetized 1% lidocaine the vessel accessed with micropuncture needle wire under ultrasound guidance. This then changed for micropuncture sheath routine injection iliofemoral angiograms performed feeling satisfactory placement no extravasation dissection. Through the micropuncture sheath Bentson wire advanced into the abdominal aorta the micropuncture sheath exchanged for short 6 Canadian sheath. Through the 6 Canadian sheath Omni Flush catheter advanced into the abdominal aorta and digital traction aortogram pelvic angiogram was performed. We then navigated into the contralateral leg system with a Omni Flush catheter and Bentson wire advancing her catheter in the distal external iliac artery. From this position sequential subtraction angiography the right lower extreme was performed which revealed popliteal and proximal tibial disease that appeared amenable for endovascular treatment. Bentson wire was then advanced in the Omni Flush catheter withdrawn and 6 Canadian sheath exchanged out for a long 6 Canadian destination sheath which was advanced into the contralateral SFA. Patient was in heparinized allowed circuit for 3 minutes and through the 6 Canadian sheath a command 14 wire and angled quick cross catheter were used to navigate the popliteal disease able to maintain position within true lumen and and cross the areas of high-grade stenosis with no total occlusions identified. Next we were able to selectively navigate into the anterior tibial artery advance her wire into the proximal third of the vessel. We are able to advance the catheter however the wire and catheter and not able to traverse a high-grade stenosis in the proximal segment of the vessel initially but ultimately were able to traverse with the wire without the catheter. The catheter was withdrawn and a 1.2 mm angioplasty was advanced and able to partially traverse the stenosis and this was then inflated nominal and then deflated withdrawn. We continue to have difficulty traversing this area with the catheter thought that there was potentially some friction drag from the more proximal disease which was diminishing her push ability so we decided to first address the SFA popliteal disease. Intravascular ultrasound was then advanced over the wire and recorded pullback of the proximal AT, popliteal artery proximal SFA was performed. This revealed areas of most severe stenosis and delineated reference vessel sizes. Next the quick cross catheter was then advanced over the wire to the AT lesion and the wire exchanged for a Poulan wire and the catheter withdrawn. A [place]an rotational atherectomy device was then advanced over the wire and engaged for multiple passes across the SFA popliteal lesions. The device was withdrawn and repeat angiography revealed satisfactory response of the vessel with no extravasation or dissection. The distal popliteal artery was then postdilated with a 4 mm casandra balloon followed by a 5 mm casandra balloon more proximally to cover the full extent of the lesion. Repeat angiography again confirmed satisfactory vessel response with no extravasation or dissection. A 2 mm casandra balloon then advanced over the wire and attempted to traverse the anterior tibial lesion again meeting resistance at the proximal one third at a focal area of high-grade calcified stenosis. We are to partially cross the lesion and inflate the balloon to nominal and upon deflation the hope was we be able to advance further but we were not. Repeat angiography confirmed that there was improvement in the vessel lumen and brisk contrast transit across the anterior tibial and the concern was that further aggressive measures would be potentially harmful to the vessel so no further anterior tibial interventions were attempted. Next a [place] Heather George drug-coated angioplasty balloon 4 x 200 was advanced over the wire and inflated for 2 minutes to nominal in the distal aspect of the target vessel and then deflated withdrawn. A second Heather George 5 x 150 was then advanced with satisfactory overlap into the original ba lloon position and covering the remainder of the proximal lesion. This was then inflated at nominal for 2 minutes and deflated withdrawn. Completion angiography confirmed satisfactory vessel response with brisk contrast transit, and preservation of the tibial outflow vessels with the anterior tibial being the dominant inline flow to the foot and no extravasation or dissection. The long 6 Canadian sheath then exchanged for a short 6 Canadian sheath and a minx closure device deployed followed by 2 minutes of any pressure. Patient then taken to recovery room with anticipated bedrest before discharged home. Radiograph interpretation: Abdominal aorta normal caliber with diffuse calcification but no stenosis. Left common and external iliac arteries patent with no significant stenosis but diffuse calcification. Left common femoral artery patent prior endarterectomy patch with no stenosis. Right common iliac artery and external artery patent with diffuse calcification but no stenosis. Right common femoral artery with calcified eccentric plaque causing approximately 75% stenosis in the mid vessel with patent ostia of the profunda and SFA. Superficial femoral artery patent with diffuse calcification but no stenosis in the proximal and mid segments but severe calcified stenosis in the distal segment. Popliteal artery with multiple tandem lesions of high- grade calcified stenosis throughout with worst being 95% in the vessel and the P3 segment. Anterior tibial origin greater than 50% stenosis with distal vessel with 2 further tandem lesions of approximately 50% stenosis followed by patent vessel to the foot filling the dorsalis pedis. Tibioperoneal trunk highly diseased with segments of greater than 90% stenosis with outflow into the peroneal artery highly diseased vessel with segments of total occlusion with reconstitution of the distal leg. Posterior tibial artery with proximal highly diseased vessel with occlusion with minimal reconstitution.
== END 2023-04-15 15:40 | disposition home or self-care (01) ==
PROVIDERS: PCP Family Medicine; Referring Provider Surgery Trauma Surgery; Visit Provider Surgery Trauma Surgery
DX: I70.261 Atherosclerosis of native arteries of extremities with gangrene, right leg (principal); E11.622 Type 2 diabetes mellitus with other skin ulcer; E11.51 Type 2 diabetes mellitus with diabetic peripheral angiopathy without gangrene; L97.919 Non-pressure chronic ulcer of unspecified part of right lower leg with unspecified severity; I10 Essential (primary) hypertension; Z95.5 Presence of coronary angioplasty implant and graft; Z87.891 Personal history of nicotine dependence; Z79.899 Other long term (current) drug therapy; Z79.84 Long term (current) use of oral hypoglycemic drugs; Z79.82 Long term (current) use of aspirin
CPT/HCPCS: 36200; 36245; 36415; 37225; 37228; 37252; 37253; 75625; 75710; 76937; 80048; 85025; 85347; 99152; 99153; C1724; C1725; C1753; C1760; C1769; C1887; C1894; C2623; J7040; Q9967

== ENCOUNTER 2023-04-28 15:25 | Inpatient (IN) | payer MEDICARE, SELFPAY ==
[2023-04-28 15:27] VITALS: BP 180/72; PULSE 79; RESP 14; TEMP 36.1; O2SAT 100; BMI 23.3
--- NOTE | 2023-04-28 15:46 | EX.ED.DYSGE1 ---
HPI History of Present Illness Chief Complaint: General Illness Narrative Narrative: 87-year-old female presenting with foot wounds on the right second and third toes. The third toe has turned black. The second toe has an ulcer on the lateral aspect of the distal toe. Patient has been followed by Dr. Tiwari. Patient was seen by Dr. Tiwari today and was heard to the ER. Patient states has had this problem for weeks. Has not been on antibiotics. Patient no systemic signs or symptoms. Patient states she supposed to come in for surgery on her foot. She states she supposed to have an amputation. Patient has history of amputations of the left foot. Patient states her A1c is down to 6. She has hypertension, diabetes. [facility] Medical History Alcohol abuse Ambulates with cane Amputated toe Anxiety Arthritis Atherosclerotic heart disease of [place] coronary artery without angina pectoris BBB (bundle branch block) Bone infection of left foot Cardiology follow-up encounter Carotid stenosis Carotid stenosis, bilateral Cellulitis of left foot Cellulitis of left thigh COPD (chronic obstructive pulmonary disease) Cystocele Depression Diabetes Dietary restriction Difficulty swallowing Easy bruising Essential hypertension Former smoker [place] of left foot History of restless legs syndrome HTN (hypertension) Hx of cardiovascular stress test Hx of echocardiogram Hx of edema Hx of heartburn Hx of shortness of breath Hx of syncope Hyperlipidemia Ischaemic rest pain of lower extremity Open wound of left foot Osteoarthritis Osteomyelitis of left foot PAD (peripheral artery disease) Peripheral arterial occlusive disease Post-op pain Presence of stent in coronary artery (~07/04/11) Prolapsed bladder RBBB (right bundle branch block) Rectocele Type 2 diabetes mellitus Wears dentures Wears eyeglasses Home Medications aspirin 81 mg chewable tablet 81 mg PO QHS health maintenance 06/07/16 [History Last Taken 04/28/23] clopidogrel 75 mg tablet 75 mg PO DAILY platelet inhibitor 06/07/16 [History Last Taken 04/28/23] multivitamin 1 tab PO DAILY SUPPLEMENT 04/28/19 [History Last Taken 04/28/23] omega-3 fatty acids 1,000 mg capsule (Fish Oil Concentrate) 1,000 mg PO DAILY supplement 04/28/19 [History Last Taken 04/28/23] lisinopril 20 mg tablet 20 mg PO BID BP 01/01/21 [History Last Taken 04/28/23] metoprolol tartrate 25 mg tablet 25 mg PO TID BP 01/01/21 [History Last Taken 04/28/23] metformin 500 mg tablet,extended release 24 hr 500 mg PO BID DM 07/01/21 [History Last Taken 04/28/23] cholecalciferol (vitamin D3) 25 mcg (1,000 unit) tablet (Vitamin D3) 25 mcg PO DAILY SUPPLEMENT 09/26/21 [History Last Taken 04/28/23] nitroglycerin 0.4 mg sublingual tablet 0.4 mg sublingual Q5-15M PRN chest pain #25 tabs 02/12/23 [Rx Last Taken Unknown] Allergy/AdvReac Type Severity Reaction Status Date / Time pravastatin AdvReac Severe myalgias Verified 04/28/23 15:27 [id number] Reductase AdvReac Severe myalgias Verified 04/28/23 15:27 Inhibitor Sulfa (Sulfonamide AdvReac Mild stomach Verified 04/28/23 15:27 Antibiotics) upset atorvastatin AdvReac myalgias Verified 04/28/23 15:27 Family History Father Diabetes Heart disease Brother Diabetes Colon cancer Brother Diabetes Surgical History Cataract extraction status of right eye History of colonoscopy History of heart artery stent History of hemorrhoidectomy History of hysterectomy History of left-sided carotid endarterectomy History of tonsillectomy Hx of toe surgery Presence of coronary angioplasty implant and graft (~07/04/11) S/P bladder repair Status post peripheral artery angioplasty Social History Smoking Status: Former smoker how long ago did patient quit smokin + years ago alcohol intake: current alcohol intake frequency: a few times a month Alcohol type: wine substance use type: does not use caffeine: Yes Type: coffee Number of servings: 2 what type of physical activity do you participate in: walking seatbelt use: always do you feel safe at home: Yes ROS ROS ED Constitutional Constitutional ED: Denies chills, fever(s) or sweats Eyes Eyes: Denies blurry vision or change in vision ENT ENT ED: Denies ear pain or sore throat Cardiovascular Cardiovascular: Denies chest pain, palpitations or racing heartbeat Respiratory/Chest Respiratory/Chest: Denies cough, dyspnea or sputum Gastrointestinal Gastrointestinal: Denies abdominal pain, constipation, diarrhea, nausea or vomiting Genitourinary Genitourinary ED: Denies dysuria, hematuria or urinary frequency Musculoskeletal Musculoskeletal: Denies arthralgias, myalgias or neck pain Integumentary Reports other Details: Wound to third toe on right foot blackening of the skin. There is a ulcer to the distal aspect of the second toe in the same foot on the medial aspect. ; Denies abscess, Abrasions or rash Neurologic Neurologic: Denies headache(s), paresthesias or weakness Psychiatric Psychiatric: Denies anxiety, depression, suicidal ideation or suicidal thoughts Endocrine Endocrinology: Denies polydipsia or polyuria EXAM Physical Exam Const Vital Signs: 04/28/23 15:27 04/28/23 16:16 Temperature 97 F L Temperature Source Temporal Pulse Rate 79 Respiratory Rate 14 Respiratory Pattern Normal Blood Pressure 180/72 H Blood Pressure Mean 108 Pulse Ox 100 Oxygen Delivery Method Room Air Positive well nourished General Appearance ED: NAD HEENT Reports moist mucous membranes Negative for trauma Eyes PERRL Neck no lymphadenopathy Resp normal respiratory effort Effort and Inspection: Negative for retractions Cardio regular rate and regular rhythm GI normal to inspection, nondistended, normoactive bowel sounds Neuro oriented x3 and CN's II-XII intact bilaterally Sensorium / Orientation: alert Psych mental status grossly normal Skin Skin Narrative: Poorly healing wound to the distal aspect of the right third toe with right foot. The second toe also has an ulcer on the medial aspect. No lymphangitic streaking. No tenderness to palpation. MDM MDM MDM Narrative Medical decision making narrative: Patient presenting from Dr. Jernigan's office for evaluation of her toes. She has a necrotic looking toe on the third digit and an ulcer on the second digit of the right foot. Differential includes cellulitis, osteomyelitis. CBC was obtained to assess white blood cell count, hemoglobin, platelets. BMP to assess renal function, electrolytes. CRP and ESR were obtained to assess inflammatory markers. Patient has no complaint of pain. CBC and BMP unremarkable. CRP slightly elevated at 8.93. ESR 40. Discussed with Dr. Art who stated that he had spoken to Dr. Tiwari and the patient was to be admitted to Dr. Tiwari service. They requested a medicine consult. They requested I give the patient vancomycin and Zosyn as broad-spectrum coverage. A culture was taken for the wound prior to antibiotics starting. All questions were answered and patient was admitted to the medical floor. Impression: 1. Cellulitis right foot Lab Data Labs: Laboratory Results - last 24 hr 04/28/23 15:50 WBC 8.4 RBC 4.19 L Hgb 11.8 L Hct 37.1 MCV 88.5 MCH 28.2 MCHC 31.8 L RDW Std Deviation 43.4 RDW Coeff of Kathy 13.3 Plt Count 503 H MPV 9.1 Immature Gran % (Auto) 0.200 Neut % (Auto) 65.6 Lymph % (Auto) 22.9 [place] % (Auto) 8.9 Eos % (Auto) 1.7 Baso % (Auto) 0.7 Absolute Neuts (auto) 5.5 Absolute Lymphs (auto) 1.93 Nucleated RBC % 0 ESR 40 H Sodium 135 L Potassium 3.8 Chloride 99 Carbon Dioxide 30.0 Anion Gap 6 BUN 18 Creatinine 0.78 Estim Creat Clear Calc 32.79 Est GFR (MDRD) Af Amer 90 Est GFR (MDRD) Non-Af 75 BUN/Creatinine Ratio 23.2 H Glucose 148 H Calcium 9.2 C-React Prot Ext Range 8.93 H Radiography Diagnostic Testing: Clinical Impression(s) from Imaging Studies Foot X-Ray 04/28/23 16:10 IMPRESSION: Stable healing fracture of the proximal phalanx of the fifth toe.. Electronically Signed: Dre Richardson DO at 16:48 EST , Discharge Plan Triage Chief Complaint: General Illness ED Provider: Devon Lam Dx/Rx/DC Orders Primary Care Provider: Tre Marks
--- NOTE | 2023-04-28 16:10 | RAD_ITS ---
INDICATION: great toe pain EXAMINATION/TECHNIQUE: X-RAY - RIGHT XR Foot 3 VIEWS COMPARISON: March 18, 2023 FINDINGS: SOFT TISSUES: Mild soft tissue swelling of the first toe. No radiopaque foreign body. Vascular calcifications. BONES/JOINTS: Stable healing fracture of the proximal phalanx of the fifth toe.. No sclerotic or destructive changes observed. RAD/Foot min 3 Views IMPRESSION: Stable healing fracture of the proximal phalanx of the fifth toe.. Electronically Signed: Dre Richardson DO at 16:48 EST ,
[2023-04-28 16:27] LABS: Absolute Lymphocyte Count 1.93 X10^3/uL (0.83-4.51); Absolute Neutrophil Count 5.5 X10^3/uL (2.0-7.7); Basophil# 0.06 X10^3/uL; Basophil% 0.7 % (0-1); Eosinophil# 0.14 X10^3/uL; Eosinophils% 1.7 % (0-5); Hematocrit 37.1 % (37-47); Hemoglobin 11.8 g/dL (12.0-15.0); Lymphocyte # 1.93 X10^3/ul (0.83-4.51); Lymphocyte % 22.9 % (19-41); Mean Corp Hgb Conc 31.8 g/dL (32-36); Mean Corpuscular Hgb 28.2 pg (27.0-32.0); Mean Corpuscular Volume 88.5 fL (81-99); Mean Platelet Vol. 9.1 fl (6.2-12.0); Monocyte# 0.75 X10^3/uL; Monocyte% 8.9 % (0-10); NRBC Flagged by Analyzer 0 % (0-5); Neutrophil # 5.54 X10^3/uL (2.7-7.7); Neutrophil % 65.6 % (47-70); Platelet Count 503 K/mm3 (150-450); RBC Distribution Width CV 13.3 % (11.6-14.6); RBC Distribution Width SD 43.4 fl (35.1-43.9); Red Blood Count 4.19 M/mm3 (4.2-5.4); White Blood Count 8.4 K/mm3 (4.4-11.0)
[2023-04-28 16:33] LABS: Anion Gap 6 (5-15); BUN 18 mg/dL (7-18); BUN/Creat Ratio 23.2 RATIO (10-20); CRP 8.93 mg/L (0.0-3.0); Calcium,Total 9.2 mg/dL (8.5-10.1); Chloride 99 mmol/L (98-107); Creatinine, Serum 0.78 mg/dL (0.55-1.02); EST Glomerular Filtration Rate 75 mL/min (>60); Est Glom Filt Rate - Afr Amer 90 mL/min (>60); Estimated Creatinine Clearance 32.79 ml/min; Glucose 148 mg/dL (74-106); Potassium 3.8 mmol/L (3.5-5.1); Sodium Level 135 mmol/L (136-145)
[2023-04-28 16:55] LABS: Erythrocyte Sedimentation Rate 40 mm/hr (0-30)
--- NOTE | 2023-04-28 18:35 | PCM.HP.STD ---
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 Patient denies constitutional symptoms. Patient underwent recent vascular intervention with Dr. Mccray 04/15/23. Patient noted progressive worsening of her right 2nd/3rd digit since that time. Patient denies rest pain or current intermittent claudication. Patient has a complicated medical history including tobacco use, peripheral arterial disease, carotid stenosis, GI bleed, previous digital amputation on the left foot, coronary artery disease. Admitted today for amputation of right 2nd/3rd toes. [facility] [place] Medical History Alcohol abuse Ambulates with cane Amputated toe Anxiety Arthritis Atherosclerotic heart disease of [place] coronary artery without angina pectoris BBB (bundle branch block) Bone infection of left foot Cardiology follow-up encounter Carotid stenosis Carotid stenosis, bilateral Cellulitis of left foot Cellulitis of left thigh COPD (chronic obstructive pulmonary disease) Cystocele Depression Diabetes Dietary restriction Difficulty swallowing Easy bruising Essential hypertension Former smoker [place] of left foot History of restless legs syndrome HTN (hypertension) Hx of cardiovascular stress test Hx of echocardiogram Hx of edema Hx of heartburn Hx of shortness of breath Hx of syncope Hyperlipidemia Ischaemic rest pain of lower extremity Open wound of left foot Osteoarthritis Osteomyelitis of left foot PAD (peripheral artery disease) Peripheral arterial occlusive disease Post-op pain Presence of stent in coronary artery (~07/04/11) Prolapsed bladder RBBB (right bundle branch block) Rectocele Type 2 diabetes mellitus Wears dentures Wears eyeglasses Home Medications aspirin 81 mg chewable tablet 81 mg PO QHS health maintenance 06/07/16 [History Last Taken 04/28/23] clopidogrel 75 mg tablet 75 mg PO DAILY platelet inhibitor 06/07/16 [History Last Taken 04/28/23] multivitamin 1 tab PO DAILY SUPPLEMENT 04/28/19 [History Last Taken 04/28/23] omega-3 fatty acids 1,000 mg capsule (Fish Oil Concentrate) 1,000 mg PO DAILY supplement 04/28/19 [History Last Taken 04/28/23] lisinopril 20 mg tablet 20 mg PO BID BP 01/01/21 [History Last Taken 04/28/23] metoprolol tartrate 25 mg tablet 25 mg PO TID BP 01/01/21 [History Last Taken 04/28/23] metformin 500 mg tablet,extended release 24 hr 500 mg PO BID DM 07/01/21 [History Last Taken 04/28/23] cholecalciferol (vitamin D3) 25 mcg (1,000 unit) tablet (Vitamin D3) 25 mcg PO DAILY SUPPLEMENT 09/26/21 [History Last Taken 04/28/23] nitroglycerin 0.4 mg sublingual tablet 0.4 mg sublingual Q5-15M PRN chest pain #25 tabs 02/12/23 [Rx Last Taken Unknown] Allergy/AdvReac Type Severity Reaction Status Date / Time pravastatin AdvReac Severe myalgias Verified 04/28/23 15:27 [id number] Reductase AdvReac Severe myalgias Verified 04/28/23 15:27 Inhibitor Sulfa (Sulfonamide AdvReac Mild stomach Verified 04/28/23 15:27 Antibiotics) upset atorvastatin AdvReac myalgias Verified 04/28/23 15:27 Family History Father Diabetes Heart disease Brother Diabetes Colon cancer Brother Diabetes Surgical History Cataract extraction status of right eye History of colonoscopy History of heart artery stent History of hemorrhoidectomy History of hysterectomy History of left-sided carotid endarterectomy History of tonsillectomy Hx of toe surgery Presence of coronary angioplasty implant and graft (~07/04/11) S/P bladder repair Status post peripheral artery angioplasty Social History Smoking Status: Former smoker how long ago did patient quit smokin + years ago alcohol intake: current alcohol intake frequency: a few times a month Alcohol type: wine substance use type: does not use caffeine: Yes Type: coffee Number of servings: 2 what type of physical activity do you participate in: walking seatbelt use: always do you feel safe at home: Yes ROS Constitutional Constitutional: Denies night sweats, poor appetite or snoring Eyes Eyes: Denies discongugate gaze, double vision or other visual disturbances ENT HEENT: Denies halitosis, headache(s) or rhinorrhea Cardiovascular Cardiovascular: Denies clubbing, cold extremities or lightheadedness Respiratory/Chest Respiratory/Chest: Denies excessive phlegm production, hemoptysis or shortness of breath at rest Gastrointestinal Gastrointestinal: Denies dyspepsia, dysphagia or early satiety Genitourinary Genitourinary: Denies polyuria, post void dribbling or scrotal pain Musculoskeletal Musculoskeletal: Reports muscle cramps; Denies muscle spasms or muscle weakness Vital Signs Vital Signs Vital Signs: 04/28/23 15:27 04/28/23 16:16 Temperature 97 F L Temperature Source Temporal Pulse Rate 79 Respiratory Rate 14 Respiratory Pattern Normal Blood Pressure 180/72 H Blood Pressure Mean 108 Pulse Ox 100 Oxygen Delivery Method Room Air Weight Weight: 59.874 kg Body Mass Index (BMI) 23.3 Physical Exam Narrative Vascular: dorsalis pedis/posterior tibial pulses faintly palpable bilaterally. Dorsalis Pedis and Posterior Tibial Pulses biphasic bilaterally. atrphic skin changes noted. Gangrenous changes to distal geo of right 2nd/3rd toes. Neurologic: light touch and protective sensation absent to bilateral feet. Dermatologic: dry to wet gangrene to right distal 2nd/3rd toe. perinecrotic maceration, erythema, malodor and edema noted. Musculoskeletal: No signs of DVT. Left 4th/5th digit amputation noted. No gross deformity contributing to wound formation. Const alert and oriented x3 Results Lab / Micro Data 04/28/23 15:50 04/28/23 15:50 Labs: Laboratory Results - last 24 hr 04/28/23 15:50: WBC 8.4, RBC 4.19 L, Hgb 11.8 L, Hct 37.1, MCV 88.5, MCH 28.2, MCHC 31.8 L, RDW Std Deviation 43.4, RDW Coeff of Kathy 13.3, Plt Count 503 H, MPV 9.1, Immature Gran % (Auto) 0.200, Neut % (Auto) 65.6, Lymph % (Auto) 22.9, [place] % (Auto) 8.9, Eos % (Auto) 1.7, Baso % (Auto) 0.7, Absolute Neuts (auto) 5.5, Absolute Lymphs (auto) 1.93, Nucleated RBC % 0, ESR 40 H, Sodium 135 L, Potassium 3.8, Chloride 99, Carbon Dioxide 30.0, Anion Gap 6, BUN 18, Creatinine 0.78, Estim Creat Clear Calc 32.79, Est GFR (MDRD) Af Amer 90, Est GFR (MDRD) Non-Af 75, BUN/Creatinine Ratio 23.2 H, Glucose 148 H, Calcium 9.2, C-React Prot Ext Range 8.93 H Imagaing Radiology Impression Foot X-Ray 04/28/23 16:10 IMPRESSION: Stable healing fracture of the proximal phalanx of the fifth toe.. Electronically Signed: Dre Richardson DO at 16:48 EST Reading Location ID and State: [facility] / [place] Tel [phone], Service support , Assessment & Plan Assessment/Plan (1) Other acute osteomyelitis, right ankle and foot: PLAN: Exam performed radiographs demonstrate cortical erosion to distal phalanx 3rd toe, right foot Will keep patient NPO overnight Will plan for digital amputation of right 2nd/3rd toe hospitalist on consult - please document medical clearance for surgery (2) Type 2 diabetes mellitus with diabetic polyneuropathy: QUALIFIERS: Diabetes mellitus penitentiary insulin use: without penitentiary use Qualified Code(s): E11.42 - Type 2 diabetes mellitus with diabetic polyneuropathy (3) Non-pressure chronic ulcer of other part of right foot with necrosis of bone: (4) Diabetic foot infection:
[2023-04-28] MEDS: Piperacil/Tazobactam 3.375 GM in 0.9% Normal Saline (50mL MB+) 50 ML IV (18:43)
[2023-04-28 19:04] VITALS: PULSE 78; RESP 14; O2SAT 94
[2023-04-28 19:31] VITALS: BMI 22.8
[2023-04-28 19:53] VITALS: BP 188/62; PULSE 73; RESP 18; TEMP 36.4; O2SAT 100
[2023-04-28] MEDS: Vancomycin HCl 1,500 MG in 0.9% Normal Saline (500mL Bag) 500 ML 250 MG IV (20:20)
--- NOTE | 2023-04-28 20:29 | PCM.CONS.GEN ---
Assessment & Plan Assessment/Plan (1) Uncontrolled hypertension: (2) Diabetic foot infection: (3) Non-pressure chronic ulcer of other part of right foot with necrosis of bone: PLAN: Plan 1. Medical management consult for uncontrolled hypertension and patient with recurrent diabetic foot infection with evidence of necrotic tissue on the toes of the right foot with likely impending amputation - Continue home medications as previous with metoprolol and lisinopril. Also give IV hydralazine as needed for systolic blood pressure greater than 160 mmHg. This patient has no absolute contraindications to medically necessary podiatric surgery. 2. Diabetes mellitus type 2; well-controlled with recent hemoglobin A1c of 6% - Give ADA diet when okay with podiatry. Fingerstick blood sugars before every meal and at bedtime plus sliding scale insulin. 3. Hyperlipidemia - Continue current treatment. 4. History of coronary artery disease; status post stent (~2011) on chronic aspirin and Plavix - Resume current regimen. 5. History of peripheral artery disease requiring angioplasty with previous osteomyelitis and gangrene of the toes - Noted. 6. History of TIA/CVA with left carotid stenosis; status post left carotid endarterectomy - Stable. 7. Remote history of alcohol abuse - Patient denies current or recent alcohol abuse. 8. History of tobacco abuse; subsequent COPD - Stable with no evidence of flare. Give as needed nebulizers. 9. DVT prophylaxis - As per podiatric team. Total time: Approximately 40 minutes. HPI Consult Data Date of Consult: 04/29/23 HPI Narrative Reason for Consultation: Medical management of hypertension HPI Narrative: GENTRY COBB, is a 87 F with a past medical history of essential hypertension, hyperlipidemia; with intolerance to statins which cause myalgias, diabetes mellitus type 2; of unknown control, artery disease status post stent (~2011); on chronic aspirin and Plavix, history of TIA/CVA with left carotid stenosis; status post left carotid endarterectomy, history of diabetic foot ulcer with peripheral arterial disease requiring peripheral artery angioplasty; with previous osteomyelitis and gangrene of the toes of the left foot followed by Dr. Tiwari of the podiatry service, history of bilateral lower extremity cellulitis, remote history of alcohol abuse; with patient now only drinking wine a few times per month, history of tobacco abuse (quit more than 20 years ago); with subsequent COPD, depression, restless leg syndrome, history of bladder prolapse; status post repair, chronic right bundle branch block and osteoarthritis who presented to [facility] complaining of worsening wounds on her right second and third toes. She states that there toe is turned black and the second toe has an ulcer on the lateral aspect of the distal toe. She then was seen by Dr. Tiwari and was sent to the ER for further evaluation and treatment. He denies having been treated with antibiotics and is supposed to come in for surgery on her foot for likely impending amputation. She states her diabetic control has been good with a recent hemoglobin A1c of 6% patient currently only being treated with metformin extended release 500 mg twice daily. The hospitalist service was then consulted for medical management of her blood pressure which spiked to 188/62 mmHg. She denies associated headache, paresthesias or focal neurologic deficits and she is afebrile with a normal white blood cell count of 8.4 at this time. She was restarted on her home medications plus an order was placed for IV hydralazine as needed for systolic blood pressure greater than 160 mmHg. She denies associated fevers, chills, nausea or vomiting. Thank you very much for allowing us to participate in the care of your patient. [facility] Medical History Alcohol abuse Ambulates with cane Amputated toe Anxiety Arthritis Atherosclerotic heart disease of [place] coronary artery without angina pectoris BBB (bundle branch block) Bone infection of left foot Cardiology follow-up encounter Carotid stenosis Carotid stenosis, bilateral Cellulitis of left foot Cellulitis of left thigh COPD (chronic obstructive pulmonary disease) Cystocele Depression Diabetes Dietary restriction Difficulty swallowing Easy bruising Essential hypertension Former smoker Gangrene of left foot History of restless legs syndrome HTN (hypertension) Hx of cardiovascular stress test Hx of echocardiogram Hx of edema Hx of heartburn Hx of shortness of breath Hx of syncope Hyperlipidemia Ischaemic rest pain of lower extremity Open wound of left foot Osteoarthritis Osteomyelitis of left foot PAD (peripheral artery disease) Peripheral arterial occlusive disease Post-op pain Presence of stent in coronary artery (~07/04/11) Prolapsed bladder RBBB (right bundle branch block) Rectocele Stroke/cerebrovascular accident TIA (transient ischemic attack) Type 2 diabetes mellitus Wears dentures Wears eyeglasses Home Medications aspirin 81 mg chewable tablet 81 mg PO QHS health maintenance 01/14/17 [History Last Taken 04/28/23] clopidogrel 75 mg tablet 75 mg PO DAILY platelet inhibitor 06/07/16 [History Last Taken 04/28/23] multivitamin 1 tab PO DAILY SUPPLEMENT 04/28/19 [History Last Taken 04/28/23] omega-3 fatty acids 1,000 mg capsule (Fish Oil Concentrate) 1,000 mg PO DAILY supplement 04/28/19 [History Last Taken 04/28/23] lisinopril 20 mg tablet 20 mg PO BID BP 01/01/21 [History Last Taken 04/28/23] metoprolol tartrate 25 mg tablet 25 mg PO TID BP 01/01/21 [History Last Taken 04/28/23] metformin 500 mg tablet,extended release 24 hr 500 mg PO BID DM 07/01/21 [History Last Taken 04/28/23] cholecalciferol (vitamin D3) 25 mcg (1,000 unit) tablet (Vitamin D3) 25 mcg PO DAILY SUPPLEMENT 09/26/21 [History Last Taken 04/28/23] nitroglycerin 0.4 mg sublingual tablet 0.4 mg sublingual Q5-15M PRN chest pain #25 tabs 02/12/23 [Rx Last Taken Unknown] Allergy/AdvReac Type Severity Reaction Status Date / Time pravastatin AdvReac Severe myalgias Verified 04/28/23 15:27 [id number]-[id number]-LeG Reductase AdvReac Severe myalgias Verified 04/28/23 15:27 Inhibitor Sulfa (Sulfonamide AdvReac Mild stomach Verified 04/28/23 15:27 Antibiotics) upset atorvastatin AdvReac myalgias Verified 04/28/23 15:27 Family History Father Diabetes Heart disease Brother Diabetes Colon cancer Brother Diabetes Surgical History Cataract extraction status of right eye History of colonoscopy History of heart artery stent History of hemorrhoidectomy History of hysterectomy History of left-sided carotid endarterectomy History of tonsillectomy Hx of toe surgery Presence of coronary angioplasty implant and graft (~07/04/11) S/P bladder repair Status post peripheral artery angioplasty Social History Smoking Status: Former smoker how long ago did patient quit smokin + years ago alcohol intake: current alcohol intake frequency: a few times a month Alcohol type: wine substance use type: does not use caffeine: Yes Type: coffee Number of servings: 2 what type of physical activity do you participate in: walking seatbelt use: always do you feel safe at home: Yes ROS ROS Narrative Review of systems: Constitutional: Patient denies fever or chills. Eyes: Patient denies visual changes. ENT: Patient denies ear pain, sore throat or runny nose. Cardiovascular: Patient denies chest pain, palpitations or heart racing. Respiratory: Patient denies shortness of breath or cough. Gastrointestinal: Patient denies abdominal pain, constipation, diarrhea, nausea or vomiting. Genitourinary: Patient denies dysuria, hematuria or urinary frequency. Musculoskeletal: Patient denies arthralgias, myalgias or neck pain. Integumentary: Patient admits to wound on the right third toe with blackening of the skin. There is an ulcer to the distal aspect of the second toe of the same foot. She denies abscess, abrasions or rash. Neurologic: Patient denies headache, paresthesias or focal neurologic weakness. Psychiatric: Patient denies anxiety, depression or suicidal ideation. Endocrine: Patient denies polydipsia, polyuria or polyphagia. 14 point review of systems otherwise negative except for positives noted above in HPI. Physical Exam Const alert, oriented x3, no apparent distress and average body habitus General Appearance: cooperative HEENT normocephalic, head/scalp atraumatic, hearing grossly normal bilaterally and moist oral mucous membranes Eyes PERRL and EOMs intact bilaterally Neck no lymphadenopathy and supple Resp normal respiratory effort, no retractions, no use of accessory muscles and clear to auscultation bilaterally Cardio regular rate and regular rhythm GI normal to inspection, nondistended, normoactive bowel sounds, soft to palpation, non-tender and non-distended Extremity Extremity Narrative: There is a wound on the right third toe with blackening of the skin. There is also an ulcer on the distal aspect of the second toe of the same foot. She denies abscess, abrasions or rash. Skin Skin Narrative: She has no evidence of rash at this time. Neuro oriented x3, CN's II-XII intact bilaterally, moves all extremities, no focal motor deficits and no sensory deficits noted Sensorium / Orientation: awake, alert, oriented to person, oriented to place and oriented to time Speech: speech normal Motor Exam: strength 5/5 throughout Medical Records Data Attestation: I reviewed the patient's medical records Lab / Micro Data Attestation: I reviewed the patient's lab results. 04/28/23 15:50 04/28/23 15:50 Labs: Laboratory Results - last 24 hr 04/28/23 15:50: WBC 8.4, RBC 4.19 L, Hgb 11.8 L, Hct 37.1, MCV 88.5, MCH 28.2, MCHC 31.8 L, RDW Std Deviation 43.4, RDW Coeff of Kathy 13.3, Plt Count 503 H, MPV 9.1, Immature Gran % (Auto) 0.200, Neut % (Auto) 65.6, Lymph % (Auto) 22.9, [place] % (Auto) 8.9, Eos % (Auto) 1.7, Baso % (Auto) 0.7, Absolute Neuts (auto) 5.5, Absolute Lymphs (auto) 1.93, Nucleated RBC % 0, ESR 40 H, Sodium 135 L, Potassium 3.8, Chloride 99, Carbon Dioxide 30.0, Anion Gap 6, BUN 18, Creatinine 0.78, Estim Creat Clear Calc 32.79, Est GFR (MDRD) Af Amer 90, Est GFR (MDRD) Non-Af 75, BUN/Creatinine Ratio 23.2 H, Glucose 148 H, Calcium 9.2, C-React Prot Ext Range 8.93 H Imagaing Radiology Impression Foot X-Ray 04/28/23 16:10 IMPRESSION: Stable healing fracture of the proximal phalanx of the fifth toe.. Electronically Signed: Dre Richardson DO at 16:48 EST Reading Location ID and State: [facility] / [place] Tel [phone], Service support , Charges/Coding Visit Charges Inpatient E&M: 17815 Init Hosp L1
[2023-04-28 20:31] VITALS: PULSE 73
[2023-04-28] MEDS: Lisinopril 20 MG Tablet PO (20:31)
[2023-04-28] MEDS: Metoprolol Tartrate 25 MG Tablet PO (20:31)
--- NOTE | 2023-04-28 20:38 | PCM.RX.CS ---
Consult Antibiotic Management Pharmacy has been consulted to manage selected antiobiotic: Vancomycin Type of Intervention Type of Consult: New start Suspected Infection Suspected Infection: Osteomyelitis Prior Doses of Antibiotics Prior Doses of Antibiotics Received/Current Regimen: received vanc 1500mg IV x1 in E.R. starting at 20:20 today Labs Labs: Sodium 135 mmol/L (136-145) L 04/28/23 15:50 Potassium 3.8 mmol/L (3.5-5.1) 04/28/23 15:50 Chloride 99 mmol/L (98-107) 04/28/23 15:50 Carbon Dioxide 30.0 mmol/L (21.0-32.0) 04/28/23 15:50 Anion Gap 6 (5-15) 04/28/23 15:50 BUN 18 mg/dL (7-18) 04/28/23 15:50 Creatinine 0.78 mg/dL (0.55-1.02) 04/28/23 15:50 Est GFR (MDRD) Af Amer 90 mL/min (>60) 04/28/23 15:50 Est GFR (MDRD) Non-Af 75 mL/min (>60) 04/28/23 15:50 BUN/Creatinine Ratio 23.2 RATIO (10-20) H 04/28/23 15:50 Glucose 148 mg/dL (74-106) H 04/28/23 15:50 Dosing Weight Weight used for dosin.9 kg Estimated Creatinine Clearance Estimated Creatinine Clearance: 41 ml/min Goal Trough Goal Trough: 10-15 mcg/mL Pharmacy Plan for Drug Dosing Pharmacy Plan for Drug Dosing: Starting 24 hours after the initial E.R. dose, will order 750mg IV q24h. Will check a trough before the 3rd total dose. The patient's CrCl of 41 ml/min was calculated using a SCr of 0.8 (actual value of 0.78 rounded up to 0.8 since pt is >65 yrs old). Pharmacy Service will continue to monitor and adjust dosing as required. Follow-Up Labs Follow-Up Labs: Trough: Vancomycin Date/Time Labs Ordered Labs to be done on [date and time ordered]: 04/30 19:30
[2023-04-28 21:27] LABS: Bedside Glucose 141 mg/dL (74-106)
[2023-04-29] VITALS (14 sets, daily range): BP systolic 73–199; BP diastolic 43–79; PULSE 64–75; RESP 16–18; TEMP 35.9–36.7; O2SAT 98–100; BMI 22.8
[2023-04-29] MEDS: Lisinopril 20 MG Tablet PO ×2 (06:45→22:12)
[2023-04-29] MEDS: Piperacil/Tazobactam 3.375 GM in 0.9% Normal Saline (50mL MB+) 50 ML IV ×3 (06:45→22:12)
[2023-04-29] MEDS: Metoprolol Tartrate 25 MG Tablet PO ×3 (06:45→22:12)
[2023-04-29 07:11] LABS: Bedside Glucose 112 mg/dL (74-106)
[2023-04-29 07:16] LABS: Absolute Lymphocyte Count 1.99 X10^3/uL (0.83-4.51); Absolute Neutrophil Count 4.5 X10^3/uL (2.0-7.7); Basophil# 0.05 X10^3/uL; Basophil% 0.7 % (0-1); Eosinophil# 0.25 X10^3/uL; Eosinophils% 3.3 % (0-5); Hematocrit 36.5 % (37-47); Hemoglobin 11.6 g/dL (12.0-15.0); Lymphocyte # 1.99 X10^3/ul (0.83-4.51); Lymphocyte % 26.3 % (19-41); Mean Corp Hgb Conc 31.8 g/dL (32-36); Mean Corpuscular Hgb 28.5 pg (27.0-32.0); Mean Corpuscular Volume 89.7 fL (81-99); Monocyte# 0.79 X10^3/uL; Monocyte% 10.4 % (0-10); NRBC Flagged by Analyzer 0 % (0-5); Neutrophil # 4.46 X10^3/uL (2.7-7.7); Neutrophil % 58.9 % (47-70); Platelet Count 450 K/mm3 (150-450); RBC Distribution Width CV 13.2 % (11.6-14.6); RBC Distribution Width SD 43.3 fl (35.1-43.9); Red Blood Count 4.07 M/mm3 (4.2-5.4); White Blood Count 7.6 K/mm3 (4.4-11.0)
--- NOTE | 2023-04-29 07:25 | PN_ITS ---
Subjective Subjective No changes overnight, patient comfortable, plan for OR today Objective Data Objective Data Vital Signs: Vital Signs Temp Pulse Resp BP Pulse Ox O2 Del Method 98.1 F 75 16 88/50 L 98 Room Air 04/29/23 06:43 04/29/23 06:45 04/29/23 06:43 04/29/23 06:45 04/29/23 06:43 04/29/23 06:43 Oxygen Delivery Method Room Air Weight: 58.6 kg Body Mass Index (BMI) 22.8 Intake & Output: Intake and Output for Last 24 Hours 04/27/23 04/28/23 04/29/23 23:59 23:59 23:59 Intake Total 50 / 50 530 / 530 Balance 50 / 50 530 / 530 Lab / Micro Data 04/29/23 06:35 04/28/23 15:50 Labs: Laboratory Results - last 24 hr 04/28/23 15:50: WBC 8.4, RBC 4.19 L, Hgb 11.8 L, Hct 37.1, MCV 88.5, MCH 28.2, MCHC 31.8 L, RDW Std Deviation 43.4, RDW Coeff of Kathy 13.3, Plt Count 503 H, MPV 9.1, Immature Gran % (Auto) 0.200, Neut % (Auto) 65.6, Lymph % (Auto) 22.9, [place] % (Auto) 8.9, Eos % (Auto) 1.7, Baso % (Auto) 0.7, Absolute Neuts (auto) 5.5, Absolute Lymphs (auto) 1.93, Nucleated RBC % 0, ESR 40 H, Sodium 135 L, Potassium 3.8, Chloride 99, Carbon Dioxide 30.0, Anion Gap 6, BUN 18, Creatinine 0.78, Estim Creat Clear Calc 32.79, Est GFR (MDRD) Af Amer 90, Est GFR (MDRD) Non-Af 75, BUN/Creatinine Ratio 23.2 H, Glucose 148 H, Calcium 9.2, C-React Prot Ext Range 8.93 H 04/28/23 20:33: POC Glucose 141 H 04/29/23 06:35: WBC 7.6, RBC 4.07 L, Hgb 11.6 L, Hct 36.5 L, MCV 89.7, MCH 28.5, MCHC 31.8 L, RDW Std Deviation 43.3, RDW Coeff of Kathy 13.2, Plt Count 450, MPV 9.0, Immature Gran % (Auto) 0.400, Neut % (Auto) 58.9, Lymph % (Auto) 26.3, [place] % (Auto) 10.4 H, Eos % (Auto) 3.3, Baso % (Auto) 0.7, Absolute Neuts (auto) 4.5, Absolute Lymphs (auto) 1.99, Nucleated RBC % 0 04/29/23 06:42: POC Glucose 112 H Radiography Diagnostic Testing: Radiology Impression Foot X-Ray 04/28/23 16:10 IMPRESSION: Stable healing fracture of the proximal phalanx of the fifth toe.. Electronically Signed: Dre Richardson DO at 16:48 EST Reading Location ID and State: [facility] / [place] Tel [phone], Service support , Physical Exam Narrative Vascular: dorsalis pedis/posterior tibial pulses faintly palpable bilaterally. Dorsalis Pedis and Posterior Tibial Pulses biphasic bilaterally. atrphic skin changes noted. Gangrenous changes to distal geo of right 2nd/3rd toes. Neurologic: light touch and protective sensation absent to bilateral feet. Dermatologic: dry to wet gangrene to right distal 2nd/3rd toe. perinecrotic maceration, erythema, malodor and edema noted. Musculoskeletal: No signs of DVT. Left 4th/5th digit amputation noted. No gross deformity contributing to wound formation. Const alert and oriented x3 Assessment & Plan Assessment/Plan (1) Other acute osteomyelitis, right ankle and foot: PLAN: Exam performed plan for right 2nd/3rd toe amputation today patient medically stable dressing changed, betadine, DSD, light jose - continue antiplatelet medication due to recent revascularization (2) Type 2 diabetes mellitus with diabetic polyneuropathy: QUALIFIERS: Diabetes mellitus shelter insulin use: without medical assistant dermatology use Qualified Code(s): E11.42 - Type 2 diabetes mellitus with diabetic polyneuropathy (3) Non-pressure chronic ulcer of other part of right foot with necrosis of bone: (4) Diabetic foot infection:
[2023-04-29 07:48] LABS: Anion Gap 5 (5-15); BUN 14 mg/dL (7-18); BUN/Creat Ratio 18.1 RATIO (10-20); Calcium,Total 9.1 mg/dL (8.5-10.1); Chloride 103 mmol/L (98-107); Creatinine, Serum 0.78 mg/dL (0.55-1.02); EST Glomerular Filtration Rate 75 mL/min (>60); Est Glom Filt Rate - Afr Amer 90 mL/min (>60); Estimated Creatinine Clearance 32.79 ml/min; Glucose 123 mg/dL (74-106); Potassium 4.1 mmol/L (3.5-5.1); Sodium Level 135 mmol/L (136-145)
[2023-04-29 08:11] LABS: Hemoglobin A1c 5.8 % (3.8-5.6)
[2023-04-29] MEDS: oxyCODONE 5 MG Tablet PO (09:55)
--- NOTE | 2023-04-29 10:20 | CASEMGMT ---
RN LINDA Face to Face with patient for initial transition planning/care coordination assessment. RN CM introduced self and role at [facility]. Patient lying in bed, alert and oriented, family at bedside. Patient willing to participate in assessment and is able to answer all questions appropriately. Care providers, pharmacy, and demographics verified. Patient wishes to discharge home with possible HHC, will monitor progress after surgery. Patient states she has no further needs or concerns at this time. CM to follow for discharge planning needs that may arise. PCP: Selina Specialists: Te chain hooker; SAMUEL, director of tax services Preferred Pharmacy: [facility] Insurance: [employer] Prescription Benefit: yes Living Will/HPOA: yes, daughters LNOK: daughters, son Living Arrangements: Patient is staying with daughter in a single story home with 3 steps and railing to enter the home. Patient states she was independent at home. Transportation: self, daughters DME/HHC: Patient has shower chair, raised toilet, cane, walker, grab bars, wheelchair, and glucometer at home. Patient has had [facility] HHC in the past. Disposition Plan: TBD, anticipate HHC vs SNF pending progress with therapy and course of treatment. Daina MORTON, RN, CM
[2023-04-29] MEDS: Lactated Ringers 1,000 ML 15 ML IV (11:14)
--- NOTE | 2023-04-29 12:00 | BON_PTH ---
PATIENT: GENTRY COBB LOC: [facility] U#:[id number] AGE/SX: 87/F ROOM: [facility] RE04/29/[address]: Dr. Rohit Tiwari DPM : 1935 BED: 1 DIS: 05/01/2023 SPEC #: [id number] RECD: 04/29/23 16:53 STATUS: MARY ELIZA #: [id number] ROHINI: 04/29/23 12:[address]: Rohit Tiwari DEPT: SURGICAL PATHOLOGY RECD BY: Love Luciano ENTERED: 04/30/23 09:12 SP TYPE: Bone OTHR DR: MD Dr. Ranjit Alves, DO Dr. Devon Lam, DO Dr. Sarbjit Moreno, DO Tissues: A - Toe, NOS B - Toe, NOS Procedures: Decalcification bone/plaque Surgery Specimen Level IV HEADER OPERATION: Amputation of 2nd and 3rd toes PRE-OP DIAGNOSIS: Osteomyelitis right foot TISSUE SUBMITTED: A - 2nd toe right foot, B - 3rd toe right foot MICROSCOPIC DIAGNOSIS A. Second toe right foot, amputation: Focal ulceration, acute and chronic inflammation. Bone with reactive changes and chronic inflammation, negative for acute osteomyelitis. B. Third toe right foot, amputation. Focal ulceration, acute inflammation and abscess formation. Bone with reactive changes, chronic inflammation, negative for acute osteomyelitis. SJ:jenn 05/06/2023 MICROSCOPIC DESCRIPTION Slides are reviewed. GROSS DESCRIPTION A - Received in fixative is one container labeled with the patient's name and designated second toe right foot. The specimen consists of a portion of toe measuring 1.2 x 2.0 x 1.0 cm. A focal area of ulceration is noted at one edge of the toe. The nail appears atrophic. Also present in the container is a detached piece of bone measuring 1.0 x 1.0 x 0.5 cm. Also present in the container are two more minute fragments of bone measuring in aggregate 0.5 x 0.3 x 0.3 cm. Criminal Justice Professor sections are submitted in three cassettes as follows: 1 - ulcerated area, 2 - detached pieces of bone, 3 - longitudinal sections of the bone from the toe. Cassettes 2 & 3 are submitted after decalcification. B - Received in fixative is one container labeled with the patient's name and designated third toe right foot. The specimen consists of a portion of toe measuring 2.0 x 1.5 x 1.0 cm. A focal area of brownish-black discoloration is noted at one edge of the specimen. Also present in the container are multiple detached pieces of bone measuring in aggregate 2.0 x 2.0 x 0.5 cm. The entire specimen is submitted in two cassettes as follows: 1 - ulcerated area and other area of skin, 2 - bone after decalcification. / SJ:jenn 04/30/2023 TC:2 CPT: 96183 x2, 61324 x2
[2023-04-29] MEDS: Bupivacaine Mpf 0.5% 30 ML VIAL (13:30)
--- NOTE | 2023-04-29 14:20 | OP.PCM_ITS ---
Problems Associated Problem List Diagnoses (1) Non-pressure chronic ulcer of other part of right foot with necrosis of bone: (2) Diabetic foot infection: (3) Other acute osteomyelitis, right ankle and foot: Report of Operation Date of Procedure: 04/29/23 Pre-Operative Diagnosis: 1) Right 2nd/3rd Toe Osteomyelitis in setting of Dry Gangrene 2) Diabetic Neuropathy 3) Peripheral Arterial Disease Post-Operative Diagnosis: same Surgery/Procedure Performed:: 1) partial amputation right 2nd toe 2) Partial amputation of right 3rd toe Description of Surgical Findings:: healthy, bleeding amputation sites noted with no residual signs of infection upon excision of distal 2nd/3rd toe tension-free closure of the right 2nd/3rd toe amputation sites Surgeon: Rohit Tiwari factory lay out engineer: None Type of Anesthesia: MAC Special Medications: 22cc 0.5% marcaine plain Specimen's removed: Right distal 2nd/3rd toe - pathology Right 3rd toe bone/tissue - microbiology Drains: none Estimated Blood Loss (mL): minimal Description of Procedure: Patient brought back into OR and place comfortably in supine position on operating room table. Patient induced under mac anesthesia. all osseous prominences offloaded to prevent compression neuropraxia. Right lower extremity was scrubbed, prepped and draped using a septic fashion. Right 2nd/3rd toe digital blocks performed using aseptic technique with 22cc of 0.5% marcaine plain right 3rd toe amputation: a fish mouth incision was drawn at the level of the DIPJ and made using a full thickness incision with a #15 blade. Healthy bleeding noted. Toe disarticulated at DIPJ. All necrotic/infected tissue removed. additional middle phalanx removed with bone cutting forceps. toe was split and have was sent to microbiology and half was sent to pathology. site flushed with copious normal sterile saline. Closed with 4-0 nylon, simple, interupted. right 2nd toe amputation: a fish mouth incision was drawn at the level of the DIPJ and made using a full thickness incision with a #15 blade. Healthy bleeding noted. Toe disarticulated at DIPJ. All necrotic/infected tissue removed. additional middle phalanx removed with bone cutting forceps. toe was sent to pathology. site flushed with copious normal sterile saline. Closed with 4-0 nylon, simple, interupted. dressed incisional sites with betadine, adaptic, DSD, light jose bandage no tourniwuet used patient transported to pacu with VSS and vascular status intact to all digits for further monitoring prior to transfer to floor. Patient toelrated procedure and anesthesia well in apparent satisfactory condition. no complications Admit VTE Documentation VTE Present on Admission: Yes VTE Pharm Prophylaxis ordered?: Yes
[2023-04-29 16:57] LABS: Bedside Glucose 147 mg/dL (74-106)
--- NOTE | 2023-04-29 18:23 | PCM.PN.HOSP ---
Reason for Visit Reason for Visit: Diagnoses Type 2 diabetes mellitus with diabetic polyneuropathy (04/29/23) Type 2 diabetes mellitus with other skin complications (04/29/23) Essential (primary) hypertension (04/29/23) Local infection of the skin and subcutaneous tissue, unspecified (04/29/23) Non-pressure chronic ulcer of other part of right foot with necrosis of bone (04/29/23) Other acute osteomyelitis, right ankle and foot (04/29/23) Subjective Subjective Seen and examined today, she underwent partial amputation of the right second toe and partial amputation of the right third toe today. Patient does not complain of any pain at the time of my visit this afternoon. Objective Data Objective Data Vital Signs: Vital Signs Temp Pulse Resp BP Pulse Ox O2 Del Method 97.5 F L 65 16 89/45 L 100 Room Air 04/29/23 16:32 04/29/23 16:32 04/29/23 16:32 04/29/23 16:32 04/29/23 16:32 04/29/23 16:32 Oxygen Delivery Method Room Air Weight: 58.6 kg Body Mass Index (BMI) 22.8 Intake & Output: Intake and Output for Last 24 Hours 04/27/23 04/28/23 04/29/23 23:59 23:59 23:59 Intake Total 50 / 50 636.5 / 636.5 Output Total 900 / 900 Balance 50 / 50 -263.5 / -263.5 Lab / Micro Data 04/29/23 06:35 04/29/23 06:35 Labs: Laboratory Results - last 24 hr 04/28/23 20:33: POC Glucose 141 H 04/29/23 06:35: WBC 7.6, RBC 4.07 L, Hgb 11.6 L, Hct 36.5 L, MCV 89.7, MCH 28.5, MCHC 31.8 L, RDW Std Deviation 43.3, RDW Coeff of Kathy 13.2, Plt Count 450, MPV 9.0, Immature Gran % (Auto) 0.400, Neut % (Auto) 58.9, Lymph % (Auto) 26.3, Shannon % (Auto) 10.4 H, Eos % (Auto) 3.3, Baso % (Auto) 0.7, Absolute Neuts (auto) 4.5, Absolute Lymphs (auto) 1.99, Nucleated RBC % 0, Sodium 135 L, Potassium 4.1, Chloride 103, Carbon Dioxide 27.0, Anion Gap 5, BUN 14, Creatinine 0.78, Estim Creat Clear Calc 32.79, Est GFR (MDRD) Af Amer 90, Est GFR (MDRD) Non-Af 75, BUN/Creatinine Ratio 18.1, Glucose 123 H, Hemoglobin A1c 5.8 H, Calcium 9.1 04/29/23 06:42: POC Glucose 112 H 04/29/23 16:30: POC Glucose 147 H Micro: Microbiology 04/28/23 15:50 Wound - Toe Gram Stain - Final Physical Exam Const alert, oriented x3, no apparent distress and average body habitus General Appearance: cooperative, well kempt and well developed Orientation / Consciousness: awake, oriented to person, oriented to place and oriented to time HEENT normocephalic and moist oral mucous membranes Eyes PERRL, EOMs intact bilaterally and conjunctivae normal Neck supple, no JVD, thyroid normal and no carotid bruits General: trachea midline Resp normal respiratory effort, no retractions, no use of accessory muscles and clear to auscultation bilaterally Auscultation: Negative for rales, rhonchi or wheezes Cardio regular rate, regular rhythm, S1 normal heart sound, S2 normal heart sound, no murmurs, no rub and no gallops GI normal to inspection, nondistended, normoactive bowel sounds, soft to palpation, non-tender and non-distended Neuro oriented x3, CN's II-XII intact bilaterally, no focal motor deficits and no sensory deficits noted Sensorium / Orientation: awake and alert Speech: speech normal Psych affect normal Assessment & Plan Assessment/Plan (1) Diabetic foot infection: PLAN: Plan 1. 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 related to type 2 diabetes-patient is status post partial amputation of the right second and right third toes, PT and OT will see the patient postop #2 Essential hypertension-patient's blood pressure varies from her left and right arm, I asked nursing to chart both readings, it appears from the past that her left radial readings are the most consistent #3 Type 2 diabetes-patient is on metformin currently, I do not believe the patient needs fingerstick blood sugars performed during her hospital stay, looking back at previous blood sugars, these have not been above 200 #4 coronary artery disease-patient is on Plavix and aspirin, it appears patient has allergies to statins Total clinical time spent by myself addressing the patient's medical issues, reviewing all of her data, and collaborating with patient's care team: 25 minutes Charges/Coding Visit Charges Inpatient E&M: 82994 Subs Hosp L1
[2023-04-29] MEDS: Vancomycin HCl 750 MG in 0.9% Normal Saline (250mL Bag) 250 ML 250 MG IV (20:49)
[2023-04-29] MEDS: metFORMIN (XR) 500 MG Tablet PO (22:12)
[2023-04-29] MEDS: Aspirin 81 MG TAB.CHEW PO (22:12)
[2023-04-30] VITALS (7 sets, daily range): BP systolic 122–147; BP diastolic 46–86; PULSE 62–67; RESP 16–18; TEMP 36.5–36.7; O2SAT 96–100
[2023-04-30] MEDS: Piperacil/Tazobactam 3.375 GM in 0.9% Normal Saline (50mL MB+) 50 ML IV ×3 (05:00→23:41)
[2023-04-30] MEDS: Metoprolol Tartrate 25 MG Tablet PO ×3 (05:00→20:59)
[2023-04-30] MEDS: oxyCODONE 5 MG Tablet PO ×2 (08:26→14:30)
--- NOTE | 2023-04-30 08:30 | PCM.PROGNOTE ---
Subjective Subjective Patient stable overnight. No constitutional symptoms. Patient pain controlled. No signs symptoms DVT. Objective Data Objective Data Vital Signs: Vital Signs Temp Pulse Resp BP Pulse Ox O2 Del Method 97.7 F L 67 18 122/86 H 100 Room Air 04/30/23 04:54 04/30/23 05:00 04/30/23 04:54 04/30/23 04:54 04/30/23 04:54 04/30/23 04:54 Oxygen Delivery Method Room Air Weight: 58.6 kg Body Mass Index (BMI) 22.8 Intake & Output: Intake and Output for Last 24 Hours 04/28/23 04/29/23 04/30/23 23:59 23:59 23:59 Intake Total 50 / 50 951.5 / 951.5 50 50 Output Total 1500 / 1520 Balance 50 / 50 -548.5 / -568.5 Lab / Micro Data 04/29/23 06:35 04/29/23 06:35 Labs: Laboratory Results - last 24 hr 04/29/23 16:30: POC Glucose 147 H Micro: Microbiology 04/28/23 15:50 Wound - Toe Gram Stain - Final Physical Exam Narrative Neurovascular status unchanged. Incisional sites appear well-approximated with intact sutures. Mild sanguinous drainage noted which is good for healing potential. No residual signs of infection to right second and third digital amputations. No signs symptoms DVT bilateral lower extremity. Const alert and oriented x3 Assessment & Plan Assessment/Plan (1) Other acute osteomyelitis, right ankle and foot: PLAN: Exam performed. Digital amputations right foot for definitive infection clearance. Will discharge on no antibiotics and observe for infection in the postoperative period. If any signs or symptoms of infection develop will monitor culture and sensitivity and add antibiotics as needed. Patient will require home health care dressing changes 3 times a week consisting of cleansing incisional sites to right second and third digital amputations with saline, applying Betadine paint, applying Adaptic, 4 x 4's, Kerlix, paper tape. No compression due to peripheral arterial disease. Patient is heel weightbearing in surgical shoe assisted by walker. Patient will follow-up in 1 week. Dressing was changed today sanguinous drainage noted cleanse site and dressed Betadine paint Adaptic 4 x 4's Kerlix and a light Pedro.
[2023-04-30] MEDS: Lisinopril 20 MG Tablet PO ×2 (08:32→20:59)
[2023-04-30] MEDS: Clopidogrel Bisulfate 75 MG Tablet PO (08:32)
[2023-04-30] MEDS: metFORMIN (XR) 500 MG Tablet PO ×2 (08:32→18:16)
--- NOTE | 2023-04-30 10:48 | PCM.DC.SUM ---
Providers Date of Admission: 04/29/23 Primary Care Physician: Dr. 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 Digital amputations right foot for definitive infection clearance. Will discharge on no antibiotics and observe for infection in the postoperative period. If any signs or symptoms of infection develop will monitor culture and sensitivity and add antibiotics as needed. Patient will require home health care dressing changes 3 times a week consisting of cleansing incisional sites to right second and third digital amputations with saline, applying Betadine paint, applying Adaptic, 4 x 4's, Kerlix, paper tape. No compression due to peripheral arterial disease. Patient is heel weightbearing in surgical shoe assisted by walker. Patient will follow-up in 1 week. Dressing was changed today sanguinous drainage noted cleanse site and dressed Betadine paint Adaptic 4 x 4's Kerlix and a light Pedro. Medications at Discharge Home Medications aspirin 81 mg chewable tablet 81 mg PO QHS health maintenance 06/07/16 clopidogrel 75 mg tablet 75 mg PO DAILY platelet inhibitor 06/07/16 multivitamin 1 tab PO DAILY SUPPLEMENT 04/28/19 omega-3 fatty acids 1,000 mg capsule (Fish Oil Concentrate) 1,000 mg PO DAILY supplement 04/28/19 lisinopril 20 mg tablet 20 mg PO BID BP 01/01/21 metoprolol tartrate 25 mg tablet 25 mg PO TID BP 01/01/21 metformin 500 mg tablet,extended release 24 hr 500 mg PO BID DM 07/01/21 cholecalciferol (vitamin D3) 25 mcg (1,000 unit) tablet (Vitamin D3) 25 mcg PO DAILY SUPPLEMENT 09/26/21 nitroglycerin 0.4 mg sublingual tablet 0.4 mg sublingual Q5-15M PRN chest pain #25 tabs 02/12/23 acetaminophen 500 mg tablet (Tylenol Extra Strength) 500 mg PO Q6H PRN pain #20 tabs 04/30/23 oxycodone 5 mg capsule 2.5 mg (1/2 x 5 mg) PO Q8H PRN pain 7 days #12 caps 04/30/23 Hospital Course Summary of Care Provided Hospital Course: patient admitted for amputation of right 2nd/3rd toe 2/2 dry gangrene and osteomyelitis. This was performed 04/29/23, definitive infection clearance noted with amputation, patient to be discharged on no antibiotics. Physical Exam Narrative Neurovascular status unchanged. Incisional sites appear well-approximated with intact sutures. Mild sanguinous drainage noted which is good for healing potential. No residual signs of infection to right second and third digital amputations. No signs symptoms DVT bilateral lower extremity. Const alert and oriented x3 Weight / BMI Weight Weight: 58.6 kg Body Mass Index (BMI) 22.8 ABG / Lab / Microbiology Data 04/29/23 06:35 04/29/23 06:35 Laboratory: Laboratory Results - last 24 hr 04/29/23 16:30: POC Glucose 147 H Microbiology: Microbiology 04/29/23 14:23 Tissue - 3rd Toe Gram Stain - Final 04/28/23 15:50 Wound - Toe Gram Stain - Final 04/28/23 15:50 Wound - Toe Wound Culture - Preliminary Coag Negative Staph Meaningful Use Info Meaningful Use Diagnoses (Choose all that apply): None applicable Discharge Plan Admission Admit Date/Time: 04/29/23 09:20 Attending Provider: Rohit Tiwari Primary Care Provider: Tre Marks Consulting Providers: Sarbjit Moreno; Ranjit Serrato Instructions Additional Instructions / Restrictions: Patient will require home health care dressing changes 3 times a week consisting of cleansing incisional sites to right second and third digital amputations with saline, applying Betadine paint, applying Adaptic, 4 x 4's, Kerlix, paper tape. No compression due to peripheral arterial disease. Patient is heel weightbearing in surgical shoe assisted by walker. Patient will follow-up in 1 week. No antibiotics due to definitive infection clearance with digital amputation. There are any infections postoperatively will monitor cultures and base antibiotics on the C+S from intraoperative cultures. Discharge Orders/Prescriptions Prescriptions: New oxycodone 5 mg capsule 2.5 mg PO Q8H PRN (Reason: pain) 7 Days Qty: 12 0RF acetaminophen [Tylenol Extra Strength] 500 mg tablet 500 mg PO Q6H PRN (Reason: pain) Qty: 20 0RF Continued omega-3 fatty acids [Fish Oil Concentrate] 1,000 mg capsule 1,000 mg PO DAILY multivitamin Tablet 1 tab PO DAILY metoprolol tartrate 25 mg tablet 25 mg PO TID lisinopril 20 mg tablet 20 mg PO BID metformin 500 mg tablet extended release 24 hr 500 mg PO BID cholecalciferol (vitamin D3) [Vitamin D3] 25 mcg (1,000 unit) tablet 25 mcg PO DAILY nitroglycerin 0.4 mg tablet, sublingual 0.4 mg SUBLINGUAL Q5-15M PRN (Reason: chest pain) Qty: 25 3RF clopidogrel 75 MG tablet 75 mg PO DAILY aspirin 81 MG tablet,chewable 81 mg PO QHS Referrals / Follow Up: Tre Marks MD [Primary Care Provider] - Rohit Tiwari DPM [Med Staff - Active Staff] - Disposition Disposition (needs filled in before D/C Order can be placed): Home Health Service
--- NOTE | 2023-04-30 10:48 | WOUNDNOTE ---
Dressing changed by podiatry today.
--- NOTE | 2023-04-30 11:36 | CASEMGMT ---
Discharge Planning A list of HH providers including quality and resource use data and consistent with the patient's preferred geographic region, medical needs, and insurance network was created in [facility] Guide.? This list was provided to the RN LINDA. Nikkie Sanches, Discharge Planning Asst.
--- NOTE | 2023-04-30 11:55 | CASEMGMT ---
RN CM in to discuss needs at discharge with patient. Patient states she would like HHC at discharge. HHC list provided to patient. Patient states she prefers [facility] as she has had them in the past. Discharge demand planning manager to send referral to [facility] [place]. CM will continue to follow this patient and plan for a safe discharge.
[2023-04-30] MEDS: Acetaminophen 500 MG Tablet PO (12:34)
--- NOTE | 2023-04-30 13:08 | PHA.DC_ITS ---
Pharmacy [facility] has performed discharge medication reconciliation and counseling for this patient. The patient's discharge medication list was reviewed for discrepancies and discrepancies were resolved. The patient was counseled on the following discharge medications and changes in medications for homegoing were reviewed. 1. OXYCODONE 2. TYLENOL The Reason for Use, instructions for use, and potential side effects were reviewed for all new medications. The patient's questions regarding all of their medications were answered. The patient was able to verbally demonstrate an understanding of their discharge medications. Medications at Discharge Home Medications aspirin 81 mg chewable tablet 81 mg PO QHS health maintenance 06/07/16 clopidogrel 75 mg tablet 75 mg PO DAILY platelet inhibitor 06/07/16 multivitamin 1 tab PO DAILY SUPPLEMENT 04/28/19 omega-3 fatty acids 1,000 mg capsule (Fish Oil Concentrate) 1,000 mg PO DAILY supplement 04/28/19 lisinopril 20 mg tablet 20 mg PO BID BP 01/01/21 metoprolol tartrate 25 mg tablet 25 mg PO TID BP 01/01/21 metformin 500 mg tablet,extended release 24 hr 500 mg PO BID DM 07/01/21 cholecalciferol (vitamin D3) 25 mcg (1,000 unit) tablet (Vitamin D3) 25 mcg PO DAILY SUPPLEMENT 09/26/21 nitroglycerin 0.4 mg sublingual tablet 0.4 mg sublingual Q5-15M PRN chest pain #25 tabs 02/12/23 acetaminophen 500 mg tablet (Tylenol Extra Strength) 500 mg PO Q6H PRN pain #20 tabs 04/30/23 oxycodone 5 mg capsule 2.5 mg (1/2 x 5 mg) PO Q8H PRN pain 7 days #12 caps 04/30/23
--- NOTE | 2023-04-30 15:30 | CASEMGMT ---
Patient was accepted by [facility] for [facility]. IKE MCKEON discuss dressing changes with HHC and they are able to go 2 times per week to change dressings, dressing scheduled for changes 3 times per week. IKE MCKEON updated Dr. Tiwari and is agreeable to 2 times per week at home dressing changes and will see patient on Thursday for dressing change. IKE MCKEON updated patient. IKE MCKEON called daughter Nancy to discuss plans for HHC. Daughter Nancy agreeable to plan. Nancy voiced concern regarding patient's pain not being controlled, IKE MCKEON updated nursing. Daughter had no further questions or concerns at this time.
--- NOTE | 2023-04-30 18:46 | PCM.PN.HOSP ---
Reason for Visit Reason for Visit: Diagnoses Type 2 diabetes mellitus with diabetic polyneuropathy (04/29/23) Type 2 diabetes mellitus with other skin complications (04/29/23) Other acute postprocedural pain (04/29/23) Essential (primary) hypertension (04/29/23) Local infection of the skin and subcutaneous tissue, unspecified (04/29/23) Non-pressure chronic ulcer of other part of right foot with necrosis of bone (04/29/23) Other acute osteomyelitis, right ankle and foot (04/29/23) Subjective Subjective Patient was seen and examined today, she complains of incisional pain in her right foot otherwise she has no other complaints. Objective Data Objective Data Vital Signs: Vital Signs Temp Pulse Resp BP Pulse Ox O2 Del Method O2 Flow Rate 98.1 F 62 16 145/57 H 97 Room Air 95 04/30/23 14:23 04/30/23 14:30 04/30/23 14:23 04/30/23 14:23 04/30/23 14:23 04/30/23 14:23 04/30/23 14:23 Oxygen Flow Rate (L/min) 95 Oxygen Delivery Method Room Air Weight: 58.6 kg Body Mass Index (BMI) 22.8 Intake & Output: Intake and Output for Last 24 Hours 04/28/23 04/29/23 04/30/23 23:59 23:59 23:59 Intake Total 50 / 50 951.5 / 951.5 100 / 100 Output Total 1500 / 1520 20 / 20 Balance 50 / 50 -548.5 / -568.5 80 / 80 Lab / Micro Data 04/29/23 06:35 04/29/23 06:35 Micro: Microbiology 04/29/23 14:23 Tissue - 3rd Toe Gram Stain - Final 04/29/23 14:23 Tissue - 3rd Toe Wound Culture - Preliminary GNR Poss Pseudomonas sp 04/28/23 15:50 Wound - Toe Gram Stain - Final 04/28/23 15:50 Wound - Toe Wound Culture - Preliminary Coag Negative Staph Physical Exam Narrative alert, oriented x3, no apparent distress and average body habitus General Appearance: cooperative, well kempt and well developed Orientation / Consciousness: awake, oriented to person, oriented to place and oriented to time HEENT normocephalic and moist oral mucous membranes Eyes PERRL, EOMs intact bilaterally and conjunctivae normal Neck supple, no JVD, thyroid normal and no carotid bruits General: trachea midline Resp normal respiratory effort, no retractions, no use of accessory muscles and clear to auscultation bilaterally Auscultation: Negative for rales, rhonchi or wheezes Cardio regular rate, regular rhythm, S1 normal heart sound, S2 normal heart sound, no murmurs, no rub and no gallops GI normal to inspection, nondistended, normoactive bowel sounds, soft to palpation, non-tender and non-distended Neuro oriented x3, CN's II-XII intact bilaterally, no focal motor deficits and no sensory deficits noted Sensorium / Orientation: awake and alert Speech: speech normal Psych affect normal Assessment & Plan Assessment/Plan (1) Diabetic foot infection: PLAN: Plan 1. 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 related to type 2 diabetes-patient is status post partial amputation of the right second and right third toes, PT and OT will see the patient postop, there has been discussion today that the patient may need to go to an extended care facility for short-term rehab services., I have increased the patient's oxycodone due to her foot pain #2 Essential hypertension-patient's blood pressure varies from her left and right arm, I asked nursing to chart both readings, it appears from the past that her left radial readings are the most consistent #3 Type 2 diabetes-patient is on metformin currently, I do not believe the patient needs fingerstick blood sugars performed during her hospital stay, looking back at previous blood sugars, these have not been above 200 #4 coronary artery disease-patient is on Plavix and aspirin, it appears patient has allergies to statins Total clinical time spent by myself addressing the patient's medical issues, reviewing all of her data, and collaborating with patient's care team: 25 minutes Charges/Coding Visit Charges Inpatient E&M: 98874 Subs Hosp L1
[2023-04-30 20:30] LABS: Vancomycin, Trough Level 7.2 ug/mL (5.0-15.0)
--- NOTE | 2023-04-30 20:41 | PCM.RX.CS ---
Consult Antibiotic Management Pharmacy has been consulted to manage selected antiobiotic: Vancomycin Type of Intervention Type of Consult: Follow-up Suspected Infection Suspected Infection: Osteomyelitis Prior Doses of Antibiotics Prior Doses of Antibiotics Received/Current Regimen: Vancomycin 750 mg Q24H given 04/29 @ 2048 Labs Labs: Sodium 135 mmol/L (136-145) L 04/29/23 06:35 Potassium 4.1 mmol/L (3.5-5.1) 04/29/23 06:35 Chloride 103 mmol/L (98-107) 04/29/23 06:35 Carbon Dioxide 27.0 mmol/L (21.0-32.0) 04/29/23 06:35 Anion Gap 5 (5-15) 04/29/23 06:35 BUN 14 mg/dL (7-18) 04/29/23 06:35 Creatinine 0.78 mg/dL (0.55-1.02) 04/29/23 06:35 Est GFR (MDRD) Af Amer 90 mL/min (>60) 04/29/23 06:35 Est GFR (MDRD) Non-Af 75 mL/min (>60) 04/29/23 06:35 BUN/Creatinine Ratio 18.1 RATIO (10-20) 04/29/23 06:35 Glucose 123 mg/dL (74-106) H 04/29/23 06:35 Vancomycin Trough 7.2 ug/mL (5.0-15.0) 04/30/23 19:26 Microbiology Microbiology: Microbiology 04/29/23 14:23 Tissue - 3rd Toe Gram Stain - Final 04/29/23 14:23 Tissue - 3rd Toe Wound Culture - Preliminary GNR Poss Pseudomonas sp 04/28/23 15:50 Wound - Toe Gram Stain - Final 04/28/23 15:50 Wound - Toe Wound Culture - Preliminary Coag Negative Staph Dosing Weight Weight used for dosin.6 kg Estimated Creatinine Clearance Estimated Creatinine Clearance: ~33 Goal Trough Goal Trough: 10-15 mcg/mL Pharmacy Plan for Drug Dosing Pharmacy Plan for Drug Dosing: Vancomycin trough = 7.2, will increase to 1250 mg Q24H with a trough prior to the 3rd dose. Pharmacy Service will continue to monitor and adjust dosing as required. Follow-Up Labs Follow-Up Labs: Trough: Vancomycin Date/Time Labs Ordered Labs to be done on [date and time ordered]: 05/02/23 @ 2029
[2023-04-30] MEDS: oxyCODONE 5 MG Tablet 10 MG PO (20:55)
[2023-04-30] MEDS: Aspirin 81 MG TAB.CHEW PO (21:14)
[2023-04-30] MEDS: Vancomycin HCl 1,250 MG in 0.9% Normal Saline (250mL Bag) 250 ML 167 MG IV (21:15)
[2023-05-01] VITALS (10 sets, daily range): BP systolic 135–162; BP diastolic 44–76; PULSE 56–69; RESP 16; TEMP 36.1–36.6; O2SAT 97–100
[2023-05-01] MEDS: Vancomycin Trough/Random Due 1 LAB MC (00:14)
[2023-05-01] MEDS: Acetaminophen 500 MG Tablet PO ×2 (00:56→08:41)
[2023-05-01] MEDS: oxyCODONE 5 MG Tablet 10 MG PO ×2 (05:00→11:14)
[2023-05-01] MEDS: Piperacil/Tazobactam 3.375 GM in 0.9% Normal Saline (50mL MB+) 50 ML IV ×2 (05:01→13:48)
[2023-05-01] MEDS: Metoprolol Tartrate 25 MG Tablet PO ×2 (05:08→13:57)
[2023-05-01] MEDS: Lisinopril 20 MG Tablet PO (09:07)
[2023-05-01] MEDS: metFORMIN (XR) 500 MG Tablet PO (09:08)
[2023-05-01] MEDS: Clopidogrel Bisulfate 75 MG Tablet PO (09:09)
--- NOTE | 2023-05-01 13:10 | WOUNDNOTE ---
Dressing was changed by podiatry yesterday. orders for twice weekly dressing changes.
--- NOTE | 2023-05-01 13:30 | CASEMGMT ---
IKE MCKEON in to plans for discharge. Patient states pain is manageable and agreeable to discharge home with [facility] with [facility]. IKE MCKEON called daughter Alejandra to discuss plan for discharge today with [facility]. Alejandra agreeable to plan. Alejandra had no further questions or concerns at this time. IKE MCKEON updated Dr. Tiwari regarding discharge plans. CM will update [facility] of discharge.
== END 2023-05-01 18:00 | disposition home health service (06) | DRG 617 ==
LOC: ED 18:20 → PCU 04-29 00:58
PROVIDERS: Anesthesiology; Admitting Provider Podiatrist; Emergency Provider Student in an Organized Health Care Education/Training Program; PCP Family Medicine; Referring Provider Student in an Organized Health Care Education/Training Program; Visit Provider Podiatrist
PROC: 0Y6R0Z3 Detachment at Right 2nd Toe, Low, Open Approach (ICD-10-PCS; principal; 2023-04-29 11:45)
DX: E11.69 Type 2 diabetes mellitus with other specified complication (principal); M86.171 Other acute osteomyelitis, right ankle and foot; I70.261 Atherosclerosis of native arteries of extremities with gangrene, right leg; E11.52 Type 2 diabetes mellitus with diabetic peripheral angiopathy with gangrene; L03.115 Cellulitis of right lower limb; J44.9 Chronic obstructive pulmonary disease, unspecified; L97.514 Non-pressure chronic ulcer of other part of right foot with necrosis of bone; E11.42 Type 2 diabetes mellitus with diabetic polyneuropathy; E11.621 Type 2 diabetes mellitus with foot ulcer; E11.628 Type 2 diabetes mellitus with other skin complications; Z89.422 Acquired absence of other left toe(s); I10 Essential (primary) hypertension; I25.10 Atherosclerotic heart disease of native coronary artery without angina pectoris; E78.5 Hyperlipidemia, unspecified; B96.5 Pseudomonas (aeruginosa) (mallei) (pseudomallei) as the cause of diseases classified elsewhere; Z95.5 Presence of coronary angioplasty implant and graft; Z79.02 Long term (current) use of antithrombotics/antiplatelets; Z79.82 Long term (current) use of aspirin; Z79.84 Long term (current) use of oral hypoglycemic drugs; Z79.899 Other long term (current) drug therapy; Z86.73 Personal history of transient ischemic attack (TIA), and cerebral infarction without residual deficits; Z87.891 Personal history of nicotine dependence
CPT/HCPCS: 36415; 73630; 80048; 80202; 82962; 83036; 85025; 85652; 86140; 87015; 87070; 87075; 87077; 87102; 87116; 87176; 87184; 87186; 87205; 87206; 88305; 88311; 93005; 94668; 97110; 97116; 97162; 97530; 99284; J7040; J7050; J7120; A4216; J2405

== ENCOUNTER → 2023-06-10 | Outpatient (CLI) | payer MEDICARE, SELFPAY ==
--- NOTE | 2023-06-10 08:47 | ADUL_ITS ---
Reason For Study: S/P atherectomy/DCB Rt SFA/POP and angioplasty Rt CARLTON Right Velocities Ext. Iliac Artery, dist = 96.1 cm./sec. Common Femoral Artery, prox = 319.9 cm./sec. Common Femoral Artery, mid = 422.6 cm./sec. Common Femoral Artery, dist = 273.4 cm./sec. SFA, origin, 246.8 cm/sec. Supf Femoral Artery, prox = 91.1 cm./sec. Supf Femoral Artery, mid = 105.8 cm./sec. Supf Femoral Artery, dist. = 66.2 cm./sec. Profunda Femoral Artery = 145.1 cm./sec. Popliteal Artery, prox. = 137.1 cm./sec. Popliteal Artery, mid = 134.5 cm./sec. Popliteal Artery, dist = 87.6 cm./sec. Post. Tibial Artery, prox = 15.6 cm./sec. FACULTY I ON CALL MEDICAL ASSISTANT mid-distal, No Flow. Peroneal Artery, prox = 28.7 cm./sec. Peroneal Artery, mid = 94.8 cm./sec. Peroneal Artery,dist = 80.2 cm./sec. Ant. Tibial Artery, prox = 82 cm./sec. Ant. Tibial Artery, mid = 60.1 cm./sec. Ant. Tibial Artery, dist = 103.9 cm./sec. Procedure Exam performed in department. /US Art Duplex Unilat Lower Ext Interpretation Summary Patent right lower extremity arteries with common femoral stenosis. Transition to monophasic flow in tibial vessels with posterior tibial artery oc clusion Ordering Physician: Desi Mcpherson Referring Physician: Mc Marks MD Performed By: Daina Arvizu RVT
--- NOTE | 2023-06-10 08:47 | ART_ITS ---
Reason For Study: S/P atherectomy/DCB Rt SFA/POP and angioplasty Rt CARLTON Procedure A bilateral lower extremity continuous wave Doppler with analog waveform analysis and ankle brachial indexes. Left Segmental Pressures Left brachial= 180mmHg. Left posterior tibial artery = 97mmHg. Left dorsalis pedis artery = 104mmHg. Left digit = 60 mmHg. The left dorsalis pedis waveforms are monophasic. The left posterior tibial artery waveforms are monophasic. Right Segmental Pressures Right brachial= 79mmHg. Right posterior tibial artery = 85mmHg. Right dorsalis pedis artery = 144mmHg. Right digit = 66 mmHg. The right dorsalis pedis waveforms are monophasic. The right posterior tibial artery waveforms are monophasic. Indices The right ankle brachial index by the dorsalis pedis is 0.80. The right ankle brachial index by the posterior tibial artery is 0.47. The right digital-brachial index is 0.37. The left ankle brachial index by the dorsalis pedis is 0.58. The left ankle brachial index by the posterior tibial artery is 0.54. The left digital-brachial index is 0.33. VL/Ankle Brachial Index Interpretation Summary Right JENY 0.8, moderate arterial insufficiency. Doppler/PVR waveforms of the ri ght ankle moderately at rest. Left JENY 0.58, severe arterial insufficiency. Doppler/PVR waveforms of the left ankle severely diminished at rest. Ordering Physician: Desi Mcpherson Referring Physician: Mc Marsk MD Performed By: Daina Arvizu RVT
== END | disposition home or self-care (01) ==
PROVIDERS: PCP Family Medicine; Referring Provider Physician Assistant; Visit Provider Physician Assistant
DX: Z48.812 Encounter for surgical aftercare following surgery on the circulatory system (principal); I70.261 Atherosclerosis of native arteries of extremities with gangrene, right leg
CPT/HCPCS: 93922; 93926

== ENCOUNTER → 2023-09-17 | Outpatient (CLI) | payer MEDICARE, SELFPAY ==
[2023-09-17 07:27] LABS: Absolute Lymphocyte Count 2.29 X10^3/uL (0.83-4.51); Absolute Neutrophil Count 3.3 X10^3/uL (2.0-7.7); Basophil# 0.07 X10^3/uL; Eosinophils% 5.9 % (0-5); Hematocrit 38.8 % (37-47); Hemoglobin 12.2 g/dL (12.0-15.0); Lymphocyte # 2.29 X10^3/ul (0.83-4.51); Lymphocyte % 33.5 % (19-41); Mean Corp Hgb Conc 31.4 g/dL (32-36); Mean Corpuscular Hgb 27.5 pg (27.0-32.0); Mean Corpuscular Volume 87.6 fL (81-99); Mean Platelet Vol. 9.4 fl (6.2-12.0); Monocyte# 0.75 X10^3/uL; NRBC Flagged by Analyzer 0 % (0-5); Neutrophil # 3.31 X10^3/uL (2.7-7.7); Neutrophil % 48.5 % (47-70); Platelet Count 351 K/mm3 (150-450); RBC Distribution Width SD 45.1 fl (35.1-43.9); Red Blood Count 4.43 M/mm3 (4.2-5.4); White Blood Count 6.8 K/mm3 (4.4-11.0)
[2023-09-17 07:48] LABS: Vitamin D,25 Hydroxy 47.2 ng/mL
[2023-09-17 07:55] LABS: AST(SGOT) 17 U/L (15-37); Alanine Aminotransfer ALT/SGPT 21 U/L (13-56); Albumin, Serum 3.7 g/dL (3.2-5.0); Alkaline Phosphatase 72 U/L (45-117); Anion Gap 5 (5-15); BUN 27 mg/dL (7-18); Chloride 99 mmol/L (98-107); Cholesterol 267 mg/dL (200); Creatinine, Serum 0.93 mg/dL (0.55-1.02); EST Glomerular Filtration Rate 60 mL/min (>60); Est Glom Filt Rate - Afr Amer 73 mL/min (>60); Globulin 3.8 g/dL (2.2-4.2); Glucose 141 mg/dL (74-106); High Density Lipoprotein 75 mg/dL; Potassium 4.6 mmol/L (3.5-5.1); Protein, Total 7.5 g/dL (6.4-8.2); Sodium Level 134 mmol/L (136-145); Thyroid Stim Hormone (TSH) 3.14 uIU/mL (0.358-3.74); Triglycerides 152 mg/dL; Very Low Density Lipoprotein 30 mg/dL (5-40)
== END | disposition home or self-care (01) ==
LOC: LAB 06:23
PROVIDERS: PCP Family Medicine; Referring Provider Family Medicine; Visit Provider Family Medicine
DX: R53.83 Other fatigue (principal); E11.59 Type 2 diabetes mellitus with other circulatory complications; Z87.898 Personal history of other specified conditions
CPT/HCPCS: 36415; 80053; 80061; 82306; 84443; 85025

== ENCOUNTER → 2023-09-23 | Outpatient (CLI) | payer MEDICARE, SELFPAY ==
--- NOTE | 2023-09-23 09:50 | ADUL_ITS ---
Reason For Study: S/P SFA-POP-AT Angio/Atherectomy Right Velocities Ext. Iliac Artery, mid = 107.4 cm./sec. Common Femoral Artery, mid = 416.2 cm./sec. Supf Femoral Artery, prox = 258.9 cm./sec. Supf Femoral Artery, mid = 91.1 cm./sec. Supf Femoral Artery, dist. = 58.3 cm./sec. Profunda Femoral Artery = 250.2 cm./sec. Popliteal Artery, prox. = 93.0 cm./sec. Popliteal Artery, dist = 74.7 cm./sec. Post. Tibial Artery, prox = 24.1 cm./sec. Post. Tibial Artery, mid = 27.0 cm./sec. Post. Tibial Artery, dist = 12.7 cm./sec. Unable to visualize Proximal Peroneal A. Peroneal Artery, mid = 25.5 cm./sec. Peroneal Artery,dist = 54.7 cm./sec. Ant. Tibial Artery, prox = 88.3 cm./sec. Ant. Tibial Artery, mid = 53.9 cm./sec. Ant. Tibial Artery, dist = 52.7 cm./sec. VL/US Art Duplex Unilat Lower Ext Interpretation Summary Right common femoral and proximal SFA with >75% stenosis. Prior SFA/popliteal and AT intervention sites patent with no stenosis identifie d. Ordering Physician: Desi Mcpherson Referring Physician: Mc Marks MD Performed By: Beka Jeffrey RVT and Student
--- NOTE | 2023-09-23 09:50 | ART_ITS ---
Reason For Study: S/P SFA-POP-AT Angio/Atherectomy Procedure A bilateral lower extremity continuous wave Doppler with analog waveform analysis and ankle brachial indexes. Left Segmental Pressures Left brachial= 176mmHg. Left posterior tibial artery = 85mmHg. Left dorsalis pedis artery = 83mmHg. Left digit = 38 mmHg. The left posterior tibial artery waveforms are monophasic. The left dorsalis pedis waveforms are monophasic. Right Segmental Pressures Right brachial= 77mmHg. Right posterior tibial artery = 62mmHg. Right dorsalis pedis artery = 108mmHg. Right digit = 52 mmHg. The right posterior tibial artery waveforms are monophasic. The right dorsalis pedis waveforms are monophasic. Indices The right ankle brachial index by the posterior tibial artery is 0.35. The right ankle brachial index by the dorsalis pedis is 0.61. The right digital-brachial index is 0.30. The left ankle brachial index by the posterior tibial artery is 0.48. The left ankle brachial index by the dorsalis pedis is 0.47. The left digital-brachial index is 0.22. VL/Ankle Brachial Index Interpretation Summary Right JENY 0.61, moderate arterial insufficiency. Doppler/PVR waveforms of the r ight ankle moderately diminished at rest. Left JENY 0.48, severe arterial insufficiency. Doppler/PVR waveforms of the left ankle severely diminished at rest. Ordering Physician: Desi Mcpherson Referring Physician: Mc Marks MD Performed By: Beka Jeffrey RVT and Student
== END | disposition home or self-care (01) ==
PROVIDERS: PCP Family Medicine; Referring Provider Physician Assistant; Visit Provider Physician Assistant
DX: I73.9 Peripheral vascular disease, unspecified (principal)
CPT/HCPCS: 93922; 93926

== ENCOUNTER 2023-11-12 20:57 | Emergency (ER) | payer MEDICARE, SELFPAY ==
[2023-11-12 20:58] VITALS: BP 188/64; PULSE 59; RESP 20; TEMP 35.7; O2SAT 100; BMI 24.8
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
--- NOTE | 2023-11-12 21:12 | EKG12_ITS ---
Test Reason : CP Blood Pressure : / mmHG Vent. Rate : 067 BPM Atrial Rate : 067 BPM P-R Int : 186 ms QRS Dur : 136 ms QT Int : 438 ms P-R-T Axes : 073 024 089 degrees QTc Int : 462 ms Normal sinus rhythm Right bundle branch block T wave abnormality, consider lateral ischemia Abnormal ECG Confirmed by Danielito Heard ([id number]), film editor JOSR CAREY ([id number]) on 11/16/2023 9:00:40 AM Referred By: RENEE Confirmed By:Danielito Heard
[2023-11-12] MEDS: Morphine 2 MG/ML Syringe IV (21:22)
[2023-11-12] MEDS: 0.9% Normal Saline (1000mL) 1,000 ML 999 ML IV (21:22)
[2023-11-12] MEDS: Ondansetron 4 MG/2 ML Vial IV (21:22)
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
[2023-11-12 21:32] LABS: Absolute Lymphocyte Count 2.67 X10^3/uL (0.83-4.51); Basophil# 0.07 X10^3/uL; Basophil% 0.9 % (0-1); Eosinophil# 0.28 X10^3/uL; Eosinophils% 3.5 % (0-5); Hematocrit 39.9 % (37-47); Hemoglobin 12.8 g/dL (12.0-15.0); Lymphocyte # 2.67 X10^3/ul (0.83-4.51); Mean Corp Hgb Conc 32.1 g/dL (32-36); Mean Corpuscular Hgb 28.7 pg (27.0-32.0); Mean Corpuscular Volume 89.5 fL (81-99); Mean Platelet Vol. 9.3 fl (6.2-12.0); Monocyte# 1.06 X10^3/uL; Monocyte% 13.1 % (0-10); NRBC Flagged by Analyzer 0 % (0-5); Neutrophil # 3.98 X10^3/uL (2.7-7.7); Neutrophil % 49.3 % (47-70); Platelet Count 359 K/mm3 (150-450); RBC Distribution Width CV 14.4 % (11.6-14.6); RBC Distribution Width SD 46.8 fl (35.1-43.9); Red Blood Count 4.46 M/mm3 (4.2-5.4); White Blood Count 8.1 K/mm3 (4.4-11.0)
[2023-11-12 21:46] LABS: Anion Gap 3 (5-15); BUN 30 mg/dL (7-18); BUN/Creat Ratio 27.5 RATIO (10-20); Calcium,Total 9.6 mg/dL (8.5-10.1); Chloride 102 mmol/L (98-107); Creatinine, Serum 1.09 mg/dL (0.55-1.02); EST Glomerular Filtration Rate 50 mL/min (>60); Est Glom Filt Rate - Afr Amer 61 mL/min (>60); Estimated Creatinine Clearance 32.67 ml/min; Glucose 136 mg/dL (74-106); Potassium 4.4 mmol/L (3.5-5.1); Sodium Level 133 mmol/L (136-145); Troponin-I HS 36 pg/mL (3.0-54.0)
[2023-11-12 22:00] VITALS: BP 184/54; PULSE 61; RESP 18; O2SAT 97
[2023-11-12 22:51] VITALS: BP 192/64; PULSE 65; RESP 18; O2SAT 97
[2023-11-12 23:04] LABS: Bedside Glucose 110 mg/dL (74-106)
[2023-11-12 23:17] VITALS: BP 159/60; PULSE 67; RESP 18; TEMP 36.6; O2SAT 97
== END 2023-11-12 23:18 | disposition home or self-care (01) ==
PROVIDERS: Nurse Practitioner; Emergency Provider Emergency Medicine; PCP Family Medicine; Visit Provider Emergency Medicine
DX: S22.20XA Unspecified fracture of sternum, initial encounter for closed fracture (principal); J44.9 Chronic obstructive pulmonary disease, unspecified; E11.51 Type 2 diabetes mellitus with diabetic peripheral angiopathy without gangrene; V43.52XA Car driver injured in collision with other type car in traffic accident, initial encounter; I25.10 Atherosclerotic heart disease of native coronary artery without angina pectoris; I10 Essential (primary) hypertension; E78.5 Hyperlipidemia, unspecified; Z79.82 Long term (current) use of aspirin; Z79.02 Long term (current) use of antithrombotics/antiplatelets; Z79.899 Other long term (current) drug therapy; Z87.891 Personal history of nicotine dependence
CPT/HCPCS: 71260; 80048; 82962; 84484; 85025; 93005; 96361; 96374; 96375; 99283; J7030; Q9967; A4216; J2405

== ENCOUNTER → 2024-04-18 | Outpatient (CLI) | payer MEDICARE, SELFPAY ==
[2024-04-18 12:15] LABS: Absolute Lymphocyte Count 2.09 X10^3/uL (0.83-4.51); Absolute Neutrophil Count 6.2 X10^3/uL (2.0-7.7); Basophil# 0.07 X10^3/uL; Basophil% 0.7 % (0-1); Eosinophil# 0.28 X10^3/uL; Hematocrit 36.9 % (37-47); Hemoglobin 11.7 g/dL (12.0-15.0); Lymphocyte # 2.09 X10^3/ul (0.83-4.51); Mean Corp Hgb Conc 31.7 g/dL (32-36); Mean Corpuscular Hgb 29.5 pg (27.0-32.0); Mean Corpuscular Volume 92.9 fL (81-99); Mean Platelet Vol. 9.6 fl (6.2-12.0); Monocyte# 0.78 X10^3/uL; Monocyte% 8.2 % (0-10); NRBC Flagged by Analyzer 0 % (0-5); Neutrophil # 6.24 X10^3/uL (2.7-7.7); Neutrophil % 65.8 % (47-70); Platelet Count 394 K/mm3 (150-450); RBC Distribution Width CV 12.7 % (11.6-14.6); RBC Distribution Width SD 43.6 fl (35.1-43.9); Red Blood Count 3.97 M/mm3 (4.2-5.4); White Blood Count 9.5 K/mm3 (4.4-11.0)
[2024-04-18 13:15] LABS: ALB/GLOB Ratio 0.9 RATIO (0.9-2.4); AST(SGOT) 13 U/L (15-37); Alanine Aminotransfer ALT/SGPT 22 U/L (13-56); Albumin, Serum 3.5 g/dL (3.2-5.0); Alkaline Phosphatase 81 U/L (45-117); Anion Gap 7 (5-15); BUN 16 mg/dL (7-18); BUN/Creat Ratio 20.1 RATIO (10-20); Calcium,Total 9.3 mg/dL (8.5-10.1); Chloride 101 mmol/L (98-107); Cholesterol 239 mg/dL (200); EST Glomerular Filtration Rate 72 mL/min (>60); Est Glom Filt Rate - Afr Amer 87 mL/min (>60); Glucose 153 mg/dL (74-106); High Density Lipoprotein 66 mg/dL; Potassium 4.1 mmol/L (3.5-5.1); Protein, Total 7.5 g/dL (6.4-8.2); Sodium Level 135 mmol/L (136-145); Triglycerides 223 mg/dL; Very Low Density Lipoprotein 45 mg/dL (5-40)
== END | disposition home or self-care (01) ==
LOC: BFHLAB 08:44
PROVIDERS: PCP Nurse Practitioner Family; Referring Provider Nurse Practitioner Family; Visit Provider Nurse Practitioner Family
DX: I10 Essential (primary) hypertension (principal); E78.5 Hyperlipidemia, unspecified
CPT/HCPCS: 36415; 80053; 80061; 85025

== ENCOUNTER 2024-05-09 21:25 | Inpatient (IN) | payer MEDICARE, SELFPAY ==
[2024-05-09 21:26] VITALS: BP 145/63; PULSE 87; RESP 16; TEMP 37.6; O2SAT 95; BMI 27.3
[2024-05-09 21:33] VITALS: BP 145/63; PULSE 87; RESP 16; TEMP 37.6; O2SAT 95
[2024-05-09 21:50] VITALS: O2SAT 95
[2024-05-09 22:33] VITALS: BP 145/59; PULSE 76; RESP 22; TEMP 37.7; O2SAT 90
--- NOTE | 2024-05-09 22:46 | CT_ITS ---
EXAM: CT HEAD WITHOUT INTRAVENOUS CONTRAST CLINICAL INDICATION: fall TECHNIQUE: Multiple axial images were obtained of the head without intravenous contrast. This CT exam was performed using one or more of the following dose reduction techniques: automated exposure control, adjustment of the mA and/or kV according to patient size, and/or use of iterative reconstruction technique. RADIATION DOSE: CTDIvol = 44.99 mGy, DLP = 812.98 mGy-cm COMPARISON: October 25, 2020. FINDINGS: BRAIN AND EXTRA-AXIAL SPACES: Mild diffuse cerebral volume loss and minimal low attenuation deep periventricular chronic white matter changes. No intra- or extra-axial hemorrhage. No evidence of acute infarct. No intracranial mass or mass effect. There is preservation of the borden/white matter interface. Posterior fossa structures are unremarkable. No hydrocephalus. Basal cisterns are patent. BONES/JOINTS: Unremarkable. No discrete lytic or blastic abnormalities. VASCULATURE: Marked calcification of distal intracranial vertebral arteries and intracranial carotid arteries. SINUSES: Persistent opacification of a single right posterior ethmoid air cell. Otherwise well-aerated paranasal sinuses. MASTOID AIR CELLS: Unremarkable. Clear. ORBITS: Visualized globes, extraocular muscles, optic nerves and retrobulbar fat appear unremarkable. CT/Brain/Head without Contrast IMPRESSION: No acute intracranial abnormality. Chronic changes. Electronically Signed: Patricia Gregory MD at 1:05 EST ,
--- NOTE | 2024-05-09 22:46 | EKG12_ITS ---
Test Reason : DYSRHYTHMIA Blood Pressure : */* mmHG Vent. Rate : 79 BPM Atrial Rate : 79 BPM P-R Int : 176 ms QRS Dur : 116 ms QT Int : 400 ms P-R-T Axes : 78 17 49 degrees QTcB Int : 458 ms Normal sinus rhythm Right bundle branch block Septal infarct , age undetermined Abnormal ECG Confirmed by JENN HANNON, ELTON ([id number]), website/blog editor DAIANA HUSSEIN ([id number]) on 05/11/2024 6:37:58 AM Referred By: Confirmed By: ELTON BARAJAS MD
--- NOTE | 2024-05-09 22:46 | RAD_ITS ---
EXAM: XR RIGHT FOOT COMPLETE, 3 OR MORE VIEWS CLINICAL INDICATION: ulcers TECHNIQUE: Frontal, lateral and oblique views of the right foot. COMPARISON: April 28, 2023. FINDINGS: BONES/JOINTS: There is improved arthropathy with resolution of previously seen sclerosis on both sides of the second through fourth IP joints. The terminal tuft of the second and third distal phalanx is no longer present and possibly amputated, the fourth terminal tuft is small and sclerotic. No visible jessica bone or joint destruction. There is at least subacute-appearing intra-articular fracture of the proximal fifth phalanx extending into the MTP joint, with an intact fine cortical line, arguing against septic arthropathy. SOFT TISSUES: Mild soft tissue swelling. No radiopaque foreign body. RAD/Foot min 3 Views IMPRESSION: 1. Amputation or osteolysis of the terminal geo of the second and third digits is new compared to last year. 2. Interval resolution of periarticular sclerosis at the second through fourth digits compared to April 28, 2023. 3. Chronic at least partially healed intra-articular fracture of the proximal fifth proximal phalanx. There was acute displaced fracture at this location on prior exam April 28, 2023. 4. Soft tissue swelling at the level of the distal MTP joints and in the toes. No soft tissue gas. 5. No jessica bone destruction. 6. MRI or bone scan is suggested if there is strong suspicion of early osteomyelitis. Electronically Signed: Patricia Gregory MD at 1:00 EST ,
--- NOTE | 2024-05-09 22:47 | EX.ED.DYSGE1 ---
HPI History of Present Illness Chief Complaint: Syncope Informant: patient and family Narrative Narrative: Presents here with son-in-law for evaluation. Reports fall in the bathroom earlier today. She remembers using the restroom and washing her hands. She is then on the ground and her son-in-law heard the thump.. She denies any pain anywhere except for her right foot. She diabetic with neuropathy. She has had wounds to her right foot for the past month. She is supposed to see Dr. Oging this coming Thursday. No fever chills or sweats. History of coronary stent 20 years ago[address] Currently follows Dr[address] Heard. Chronic cough. Remote tobacco history. No recent vomiting diarrhea. No urinary symptoms. No headache. She is on aspirin and Plavix. Prior similar symptoms: No PFSH PFSH Medical History TIA (transient ischemic attack) Stroke/cerebrovascular accident Wears eyeglasses Depression Anxiety Alcohol abuse History of restless legs syndrome Hx of syncope Dietary restriction Difficulty swallowing Hx of heartburn COPD (chronic obstructive pulmonary disease) Hx of shortness of breath Hx of edema Hx of echocardiogram Hx of cardiovascular stress test Carotid stenosis Bone infection of left foot Osteomyelitis of left foot Gangrene of left foot Wears dentures Ambulates with cane Arthritis Easy bruising Prolapsed bladder Former smoker Cardiology follow-up encounter Cellulitis of left thigh Post-op pain Ischaemic rest pain of lower extremity Open wound of left foot Cellulitis of left foot Amputated toe Rectocele Cystocele Type 2 diabetes mellitus Presence of stent in coronary artery (~07/04/11) Essential hypertension RBBB (right bundle branch block) 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 HTN (hypertension) Osteoarthritis Diabetes Hyperlipidemia Carotid stenosis, bilateral BBB (bundle branch block) PAD (peripheral artery disease) Home Medications ?Medication ?Instructions ?Recorded ?Last Taken ?Type aspirin 81 mg chewable tablet 81 mg PO QHS health maintenance 06/07/16 04/28/23 History clopidogrel 75 mg tablet 75 mg PO DAILY platelet inhibitor 06/07/16 04/28/23 History multivitamin 1 tab PO DAILY SUPPLEMENT 04/28/19 04/28/23 History lisinopril 20 mg tablet 20 mg PO BID BP 01/01/21 04/28/23 History metoprolol tartrate 25 mg tablet 25 mg PO TID BP 01/01/21 04/28/23 History metformin 500 mg tablet,extended 500 mg PO BID DM 07/01/21 04/28/23 History release 24 hr cholecalciferol (vitamin D3) 25 25 mcg PO DAILY SUPPLEMENT 09/26/21 04/28/23 History mcg (1,000 unit) tablet (Vitamin D3) nitroglycerin 0.4 mg sublingual 0.4 mg sublingual Q5-15M PRN chest 02/12/23 Unknown Rx tablet pain #25 tabs acetaminophen 500 mg tablet 500 mg PO Q6H PRN pain #20 tabs 04/30/23 Unknown Rx (Tylenol Extra Strength) amlodipine 10 mg tablet 10 mg PO DAILY bp 11/12/23 Unknown History coenzyme Q10 75 mg capsule (Ultra 75 mg PO QDAY 02/03/24 Unknown History CoQ10) Allergy/AdvReac Type Severity Reaction Status Date / Time pravastatin AdvReac Severe myalgias Verified 02/03/24 10:00 [id number] Reductase AdvReac Severe myalgias Verified 02/03/24 10:00 Inhibitor Sulfa (Sulfonamide AdvReac Mild stomach Verified 02/03/24 10:00 Antibiotics) upset atorvastatin AdvReac myalgias Verified 02/03/24 10:00 Family History Father Diabetes Heart disease Brother Diabetes Colon cancer Brother Diabetes Surgical History Hx of toe surgery S/P bladder repair History of colonoscopy History of tonsillectomy Cataract extraction status of right eye Presence of coronary angioplasty implant and graft (~07/04/11) History of hemorrhoidectomy History of hysterectomy History of left-sided carotid endarterectomy Status post peripheral artery angioplasty History of heart artery stent Social History Smoking Status: Current some day smoker tobacco type: cigarettes and cigars how long ago did patient quit smokin + years ago alcohol intake: current alcohol intake frequency: a few times a month Alcohol type: wine substance use type: does not use caffeine: Yes Type: coffee Number of servings: 2 what type of physical activity do you participate in: walking seatbelt use: always do you feel safe at home: Yes ROS ROS ED Constitutional Constitutional ED: Denies chills, fever(s) or sweats Eyes Eyes: Denies change in vision ENT ENT ED: Denies dysphagia or sore throat Cardiovascular Cardiovascular: Denies chest pain, leg edema, palpitations or racing heartbeat Respiratory/Chest Respiratory/Chest: Reports cough; Denies dyspnea or dyspnea on exertion Gastrointestinal Gastrointestinal: Denies abdominal pain, diarrhea, nausea or vomiting Genitourinary Genitourinary ED: Denies dysuria, hematuria or urinary frequency Musculoskeletal Musculoskeletal: Denies back pain, extremity pain or neck pain Integumentary Reports wounds; Denies rash Neurologic Neurologic: Denies headache(s), paresthesias or weakness EXAM Physical Exam Const Vital Signs: 05/09/24 21:26 05/09/24 21:33 05/09/24 21:50 Temperature 99.7 F H 99.7 F H Temperature Source Temporal Oral Pulse Rate 87 87 Respiratory Rate 16 16 Respiratory Effort Normal Respiratory Depth Respiratory Pattern Normal Blood Pressure 145/63 H 145/63 H Blood Pressure Mean 90 90 Pulse Ox 95 95 Oxygen Delivery Method Room Air Room Air 05/09/24 21:50 05/09/24 22:33 05/09/24 23:26 Temperature 99.8 F H Temperature Source Oral Pulse Rate 76 78 Respiratory Rate 22 H 19 H Respiratory Effort Normal Respiratory Depth Normal Respiratory Pattern Normal Blood Pressure 145/59 H 136/92 H Blood Pressure Mean 87 106 Pulse Ox 95 90 96 Oxygen Delivery Method Room Air Room Air Room Air 05/10/24 00:14 05/10/24 01:14 Temperature 98.6 F 98.7 F Temperature Source Oral Oral Pulse Rate 90 96 Respiratory Rate 30 H 18 Respiratory Effort Respiratory Depth Respiratory Pattern Blood Pressure 147/50 H 170/59 H Blood Pressure Mean 82 96 Pulse Ox 95 92 Oxygen Delivery Method Room Air Room Air Positive well nourished and well developed Constitutional Narrative: GCS 15 General Appearance ED: well developed and NAD HEENT Reports moist mucous membranes normocephalic and atraumatic Eyes EOMs intact bilaterally and conjunctivae normal General Eye ED: Yes normal appearance of both eyes Neck no lymphadenopathy and supple General: Negative for tenderness Chest Wall Chest: Negative for tenderness Resp normal respiratory effort and normal air movement Effort and Inspection: symmetric chest movement; Negative for respiratory distress Cardio regular rate, regular rhythm and no murmurs Peripheral Pulses: pulses 2+ throughout GI normal to inspection, nondistended, normoactive bowel sounds and non-tender Palpation: Negative for guarding or rebound tenderness present Back/Spine no CVA tenderness and no thoracic nor lumbar tenderness Extremity Extremity Narrative: Negative logroll of the lower extremities. right lower extremity: Foot examination: Radial aspect great toe eschar noted nickel size, also ulceration 0.5 x 1 cm on the distal fifth MTP on the ulnar aspect. There are some erythema of the distal foot. Upper extremities: Full range of motion without tenderness. General Extremety ED: Negative for edema or tenderness General Extremity: Negative for edema Neuro oriented x3, CN's II-XII intact bilaterally and no sensory deficits noted Sensorium / Orientation: awake and alert Skin Skin Narrative: See above Sepsis Attestation Sepsis Alert: Yes Sepsis Attestation: Agree w/Sepsis Date exam was performed: 05/10/24 Time exam was performed: 01:00 Possible Source of Sepsis: Skin/soft tissue and Wound Sepsis Organ Dysfunction Criteria Present: Lactic Acid > 2 mmol/L Fluid Resuscitation Fluid Resuscitation ordered: Fluids not indicated MDM MDM MDM Narrative Medical decision making narrative: Interventions / MDM: Differential diagnosis: Syncope, diabetic right foot ulcers, NSTEMI, sepsis Diagnosis considered but do not suspect: N/A My EKG interpretation: Sinus rate of 79, no ST changes. T wave version anterior leads. Right bundle branch block. New T wave inversion anterior leads chronic right bundle branch compared to October 2023. Imaging independently reviewed and interpreted by myself: 2 view chest x-ray: No acute process. 3 view right foot: No bony destruction noted. CT brain: No acute process. External documents reviewed: N/A Test considered but not ordered:N/A ED course: Patient syncopal episode no clear prodromal symptoms. EKG new T wave inversion anterior leads. Initial labs were ordered with added troponin. CT brain chest x-ray and urine ordered. 0100: White count 16.2 lactic acid 2.4 elevated CRP of 92. Meeting sepsis likely from her diabetic foot wounds. Blood cultures pending. Zosyn and vancomycin started. In addition troponin elevated at 1687. Aspirin and heparin drip started. I discussed with hospitalist Dr. Jefferson for admission to ICU. Urine did return positive for infection culture pending. She was covered with Zosyn and vancomycin with her diabetic foot wounds. Re-evaluation: stable Disposition discussed with patient/family/significant other: Patient Case discussed with consulting clinician: Hospitalist This note was generated with [employer] dictation software. It may contain incorrect words, spelling, and punctuation that were not noted in checking the note before signing. Lab Data Attestation: I reviewed the patient's lab results. Labs: Laboratory Results - last 24 hr 05/09/24 05/10/24 22:00 01:36 WBC 16.2 H RBC 3.56 L Hgb 10.5 L Hct 32.2 L MCV 90.4 MCH 29.5 MCHC 32.6 RDW Std Deviation 43.7 RDW Coeff of Kathy 13.2 Plt Count 299 MPV 10.1 Immature Gran % (Auto) 0.700 Neut % (Auto) 88.8 H Lymph % (Auto) 5.9 L [place] % (Auto) 4.2 Eos % (Auto) 0.1 Baso % (Auto) 0.3 Absolute Neuts (auto) 14.4 H Absolute Lymphs (auto) 0.96 Nucleated RBC % 0 ESR 24 PT 15.5 H INR 1.2 APTT 32.6 Sodium 130 L Potassium 3.7 Chloride 99 Carbon Dioxide 22.0 Anion Gap 9 BUN 24 H Creatinine 1.03 H Estim Creat Clear Calc 35.40 Est GFR (MDRD) Af Amer 65 Est GFR (MDRD) Non-Af 54 L BUN/Creatinine Ratio 23.3 H Glucose 184 H Lactic Acid 2.4 H* Calcium 9.0 Troponin I High Sens 1687 H* C-React Prot Ext Range 92.30 H Procalcitonin 1.23 H Urine Color Yellow Urine Clarity Clear Urine pH 5.0 Ur Specific [place] 1.020 Urine Protein 100 H Urine Glucose (UA) Normal Urine Ketones 5 H Urine Occult Blood 50 H Urine Nitrite Positive H Urine Bilirubin 1 H Urine Urobilinogen 1 H Ur Leukocyte Esterase 100 H Urine RBC 0 SEEN Urine WBC >100 SEEN Ur Squamous Epith Cells 0-5 SEEN Amorphous Sediment 2+ Urine Bacteria 2+ Urine Mucus 0 SEEN Radiography Diagnostic Testing: Clinical Impression(s) from Imaging Studies Brain CT 05/09/24 22:46 IMPRESSION: No acute intracranial abnormality. Chronic changes. Electronically Signed: Patricia Gregory MD at 1:05 EST , Foot X-Ray 05/09/24 22:46 IMPRESSION: 1. Amputation or osteolysis of the terminal geo of the second and third digits is new compared to last year. 2. Interval resolution of periarticular sclerosis at the second through fourth digits compared to April 28, 2023. 3. Chronic at least partially healed intra-articular fracture of the proximal fifth proximal phalanx. There was acute displaced fracture at this location on prior exam April 28, 2023. 4. Soft tissue swelling at the level of the distal MTP joints and in the toes. No soft tissue gas. 5. No jessica bone destruction. 6. MRI or bone scan is suggested if there is strong suspicion of early osteomyelitis. Electronically Signed: Patricia Gregory MD at 1:00 EST , Chest X-Ray 05/09/24 23:05 IMPRESSION: 1. Mild increased elevation of the right hemidiaphragm with mild increased linear markings and bronchopulmonary cuffing in the medial right lung base. Considerations include mild bronchitis and/or minimal infiltrate. 2. Otherwise stable exam. Electronically Signed: Patricia Gregory MD at 0:52 EST , Critical Care Time Critical Care Time: Yes Critical care time (excluding procedures): 30-74 minutes, Discussing w/Patient &/or Family/Multimedia Technician, Discussing w/Consultants, Arranging Admission or Transfer and - (40 minutes) Discharge Plan Dx/Rx/DC Orders Clinical Impression: Sepsis, Syncope, Diabetic foot infection, Non-ST elevation [place] (NSTEMI), Acute UTI Disposition Disposition: Acute Care [facility] Discharge Date/Time: 05/10/24 02:59
--- NOTE | 2024-05-09 23:05 | RAD_ITS ---
EXAM: XR CHEST, 2 VIEWS CLINICAL INDICATION: cough TECHNIQUE: Frontal and lateral views of the chest. COMPARISON: March 12, 2021. CT January 14, 2022. FINDINGS: LUNGS AND PLEURAL SPACES: Mildly crowded vessels and mild bronchopulmonary cuffing suspected in the medial right lung base, there is mild increased elevation of the right hemidiaphragm. No pneumothorax. No effusion. HEART: Stent in the expected region of left anterior descending coronary artery is again noted. Normal heart size. MEDIASTINUM: Central airways and mediastinal contour are unremarkable. BONES/JOINTS: Unremarkable. No acute fracture. SOFT TISSUES: Unremarkable. VASCULATURE: Mild peripheral calcification of the aorta is again noted. RAD/Chest PA and Lateral IMPRESSION: 1. Mild increased elevation of the right hemidiaphragm with mild increased linear markings and bronchopulmonary cuffing in the medial right lung base. Considerations include mild bronchitis and/or minimal infiltrate. 2. Otherwise stable exam. Electronically Signed: Patricia Gregory MD at 0:52 EST ,
[2024-05-09 23:06] LABS: Absolute Lymphocyte Count 0.96 X10^3/uL (0.83-4.51); Absolute Neutrophil Count 14.4 X10^3/uL (2.0-7.7); Basophil# 0.05 X10^3/uL; Basophil% 0.3 % (0-1); Eosinophil# 0.01 X10^3/uL; Eosinophils% 0.1 % (0-5); Hematocrit 32.2 % (37-47); Hemoglobin 10.5 g/dL (12.0-15.0); Lymphocyte # 0.96 X10^3/ul (0.83-4.51); Lymphocyte % 5.9 % (19-41); Mean Corp Hgb Conc 32.6 g/dL (32-36); Mean Corpuscular Hgb 29.5 pg (27.0-32.0); Mean Corpuscular Volume 90.4 fL (81-99); Mean Platelet Vol. 10.1 fl (6.2-12.0); Monocyte# 0.69 X10^3/uL; Monocyte% 4.2 % (0-10); NRBC Flagged by Analyzer 0 % (0-5); Neutrophil # 14.41 X10^3/uL (2.7-7.7); Neutrophil % 88.8 % (47-70); Platelet Count 299 K/mm3 (150-450); RBC Distribution Width CV 13.2 % (11.6-14.6); RBC Distribution Width SD 43.7 fl (35.1-43.9); Red Blood Count 3.56 M/mm3 (4.2-5.4); White Blood Count 16.2 K/mm3 (4.4-11.0)
[2024-05-09 23:08] LABS: POSITIVE COUNT NO; POSITIVE DIFFERENTIAL NO; POSITIVE MORPHOLOGY NO
[2024-05-09 23:12] LABS: International Normalized Ratio 1.2; Prothrombin Time (Protime)PT. 15.5 SECONDS (11.7-14.9)
[2024-05-09 23:13] LABS: Partial Thromboplast Time 32.6 Seconds (24.1-36.2)
[2024-05-09 23:16] LABS: Anion Gap 9 (5-15); BUN 24 mg/dL (7-18); BUN/Creat Ratio 23.3 RATIO (10-20); Chloride 99 mmol/L (98-107); Creatinine, Serum 1.03 mg/dL (0.55-1.02); EST Glomerular Filtration Rate 54 mL/min (>60); Est Glom Filt Rate - Afr Amer 65 mL/min (>60); Glucose 184 mg/dL (74-106); Potassium 3.7 mmol/L (3.5-5.1); Sodium Level 130 mmol/L (136-145)
[2024-05-09 23:19] LABS: Erythrocyte Sedimentation Rate 24 mm/hr (0-30)
[2024-05-09 23:26] VITALS: BP 136/92; PULSE 78; RESP 19; O2SAT 96
[2024-05-10] VITALS (20 sets, daily range): BP systolic 102–170; BP diastolic 50–93; PULSE 67–103; RESP 16–30; TEMP 36.1–37.1; O2SAT 92–99; BMI 24.4; BMI 24.3
[2024-05-10 00:46] LABS: Lactic Acid 2.4 mmol/L (0.4-1.9); Troponin-I HS 1687 pg/mL (3.0-54.0)
[2024-05-10 01:43] LABS: Mucous, Urine 0 SEEN /hpf (<or=2+); Red Blood Cells-Urine 0 SEEN /hpf (0-5)
[2024-05-10 01:51] LABS: Color, Urine Yellow (Yellow); Glucose, Dipstick Normal (Normal); Ketone-Dipstick 5 mg/dl (Negative); Leukocyte Esterase-Dipstick 100 /ul (Negative); Nitrite-Dipstick Positive (Negative); Occult Blood-Urine 50 /ul (Negative); Protein-Dipstick 100 mg/dl (Negative); Urine Clarity Clear (Clear); Urine Urobilinogen 1 mg/dl (Normal)
[2024-05-10] MEDS: Piperacil/Tazobactam 4.5 GM in 0.9% Normal Saline (100mL MB+) 100 ML IV (02:02)
[2024-05-10] MEDS: HEPARIN/D5w 25,000 UNITS 25,000 UNITS/250 ML IV.SOLN. 8 UNITS CONT INF (02:02)
[2024-05-10] MEDS: Heparin Injection (Vial) 5,000 UNIT/ML VIAL 4000 UNIT IV (02:02)
[2024-05-10 02:12] LABS: Bacteria 2+ /hpf (None Seen); Squamous Epithelial Cells - UA 0-5 SEEN /hpf (5-10); Urine Bilirubin Dipstick 1 mg/dL (Negative); White Blood Cells >100 SEEN /hpf (0-5)
[2024-05-10 02:13] LABS: Amorphous Sediment 2+
[2024-05-10 02:17] LABS: Procalcitonin 1.23 ng/mL (0.00-0.09)
--- NOTE | 2024-05-10 02:19 | ED.RN ---
report given to glendy hu
--- NOTE | 2024-05-10 02:22 | HP.PCM.HOS_ITS ---
HPI - General General Date of Admission: 05/10/24 HPI Narrative GENTRY COBB, is a 88 F who presents to the hospital after a fall in the bathroom. She does not remember falling to the ground but denies any head pain from the fall. She is complaining of foot pain on her right great toe which has an eschar and signs of cellulitis. In the ER she was found to have a leukocytosis with an elevated CRP and a normal ESR. She was also noted to have T wave inversions on her EKG which ultimately led the ER to order a troponin which was elevated to 1600, unclear whether the NSTEMI is a type II event and was started on heparin drip. She is denying any chest pain, lightheadedness, dizziness, shortness of breath. She is endorsing fevers and chills. Of note she has had previous coronary artery stents in 2011. [facility] Medical History TIA (transient ischemic attack) Stroke/cerebrovascular accident Wears eyeglasses Depression Anxiety Alcohol abuse History of restless legs syndrome Hx of syncope Dietary restriction Difficulty swallowing Hx of heartburn COPD (chronic obstructive pulmonary disease) Hx of shortness of breath Hx of edema Hx of echocardiogram Hx of cardiovascular stress test Carotid stenosis Bone infection of left foot Osteomyelitis of left foot Gangrene of left foot Wears dentures Ambulates with cane Arthritis Easy bruising Prolapsed bladder Former smoker Cardiology follow-up encounter Cellulitis of left thigh Post-op pain Ischaemic rest pain of lower extremity Open wound of left foot Cellulitis of left foot Amputated toe Rectocele Cystocele Type 2 diabetes mellitus Presence of stent in coronary artery (~07/04/11) Essential hypertension RBBB (right bundle branch block) 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 HTN (hypertension) Osteoarthritis Diabetes Hyperlipidemia Carotid stenosis, bilateral BBB (bundle branch block) PAD (peripheral artery disease) Home Medications ?Medication ?Instructions ?Recorded ?Last Taken ?Type aspirin 81 mg chewable tablet 81 mg PO QHS health maintenance 06/07/16 04/28/23 History clopidogrel 75 mg tablet 75 mg PO DAILY platelet inhibitor 06/07/16 04/28/23 History multivitamin 1 tab PO DAILY SUPPLEMENT 04/28/19 04/28/23 History lisinopril 20 mg tablet 20 mg PO BID BP 01/01/21 04/28/23 History metoprolol tartrate 25 mg tablet 25 mg PO TID BP 01/01/21 04/28/23 History metformin 500 mg tablet,extended 500 mg PO BID DM 07/01/21 04/28/23 History release 24 hr cholecalciferol (vitamin D3) 25 25 mcg PO DAILY SUPPLEMENT 09/26/21 04/28/23 History mcg (1,000 unit) tablet (Vitamin D3) nitroglycerin 0.4 mg sublingual 0.4 mg sublingual Q5-15M PRN chest 02/12/23 Unknown Rx tablet pain #25 tabs acetaminophen 500 mg tablet 500 mg PO Q6H PRN pain #20 tabs 04/30/23 Unknown Rx (Tylenol Extra Strength) amlodipine 10 mg tablet 10 mg PO DAILY bp 11/12/23 Unknown History coenzyme Q10 75 mg capsule (Ultra 75 mg PO QDAY 02/03/24 Unknown History CoQ10) Allergy/AdvReac Type Severity Reaction Status Date / Time pravastatin AdvReac Severe myalgias Verified 02/03/24 10:00 [id number] Reductase AdvReac Severe myalgias Verified 02/03/24 10:00 Inhibitor Sulfa (Sulfonamide AdvReac Mild stomach Verified 02/03/24 10:00 Antibiotics) upset atorvastatin AdvReac myalgias Verified 02/03/24 10:00 Family History Father Diabetes Heart disease Brother Diabetes Colon cancer Brother Diabetes Surgical History Hx of toe surgery S/P bladder repair History of colonoscopy History of tonsillectomy Cataract extraction status of right eye Presence of coronary angioplasty implant and graft (~07/04/11) History of hemorrhoidectomy History of hysterectomy History of left-sided carotid endarterectomy Status post peripheral artery angioplasty History of heart artery stent Social History Smoking Status: Current some day smoker tobacco type: cigarettes and cigars how long ago did patient quit smokin + years ago alcohol intake: current alcohol intake frequency: a few times a month Alcohol type: wine substance use type: does not use caffeine: Yes Type: coffee Number of servings: 2 what type of physical activity do you participate in: walking seatbelt use: always do you feel safe at home: Yes ROS Constitutional Constitutional: Reports chills, fatigue and fever(s); Denies malaise Eyes Eyes: Denies blurry vision ENT HEENT: Denies headache(s) or nasal discharge Cardiovascular Cardiovascular: Denies chest pain, dyspnea on exertion or syncope Respiratory/Chest Respiratory/Chest: Denies cough, shortness of breath at rest or shortness of breath with exertion Gastrointestinal Gastrointestinal: Denies constipation, diarrhea, nausea or vomiting Genitourinary Genitourinary: Denies dysuria Integumentary Integumentary: Reports wounds Neurologic Neurologic: Denies focal weakness, numbness or tremor(s) Psychiatric Psychiatric: Denies anxiety or depression Vital Signs Vital Signs Vital Signs: 05/09/24 21:26 05/09/24 21:33 05/09/24 21:50 Temperature 99.7 F H 99.7 F H Temperature Source Temporal Oral Pulse Rate 87 87 Respiratory Rate 16 16 Respiratory Effort Normal Respiratory Depth Respiratory Pattern Normal Blood Pressure 145/63 H 145/63 H Blood Pressure Mean 90 90 Pulse Ox 95 95 Oxygen Delivery Method Room Air Room Air 05/09/24 21:50 05/09/24 22:33 05/09/24 23:26 Temperature 99.8 F H Temperature Source Oral Pulse Rate 76 78 Respiratory Rate 22 H 19 H Respiratory Effort Normal Respiratory Depth Normal Respiratory Pattern Normal Blood Pressure 145/59 H 136/92 H Blood Pressure Mean 87 106 Pulse Ox 95 90 96 Oxygen Delivery Method Room Air Room Air Room Air 05/10/24 00:14 05/10/24 01:14 05/10/24 02:13 Temperature 98.6 F 98.7 F 97 F L Temperature Source Oral Oral Pulse Rate 90 96 93 Respiratory Rate 30 H 18 21 H Respiratory Effort Respiratory Depth Respiratory Pattern Blood Pressure 147/50 H 170/59 H 168/51 H Blood Pressure Mean 82 96 90 Pulse Ox 95 92 97 Oxygen Delivery Method Room Air Room Air Weight Weight: 154 lb 1.65 oz Body Mass Index (BMI) 27.3 Physical Exam Narrative General: Alert, Oriented x3, Cooperative, No apparent distress HEENT: Atraumatic, PERRLA, EOMI, Normocephalic Oral: Moist Mucosa Neck: Supple, No JVD Lungs: Diminished, Normal air movement, No rhonchi, No wheeze, No rales Cardiovascular: Tachycardic, Regular Rhythm, Normal S1, Normal S2, No murmurs Abdomen: Soft, Non Tender, Non-Distended, No Hepato-splenomegaly Extremities: No edema, Capillary Refill Less than 3 Seconds Skin: Right great toe is swollen and erythematous with a medial eschar, several other toes are also swollen on the right foot Musculoskeletal: No Tenderness to Palpation of Joints or Extremities Neurological: No focal neurological deficits, Motor Exam 5/5 strength throughout, Sensory exam intact to light touch and pain Psych/Mental Status: Normal Affect, Appropriate Results Lab / Micro Data 05/09/24 22:00 05/09/24 22:00 Labs: Laboratory Results - last 24 hr 05/09/24 22:00: WBC 16.2 H, RBC 3.56 L, Hgb 10.5 L, Hct 32.2 L, MCV 90.4, MCH 29.5, MCHC 32.6, RDW Std Deviation 43.7, RDW Coeff of Kathy 13.2, Plt Count 299, MPV 10.1, Immature Gran % (Auto) 0.700, Neut % (Auto) 88.8 H, Lymph % (Auto) 5.9 L, Stephens % (Auto) 4.2, Eos % (Auto) 0.1, Baso % (Auto) 0.3, Absolute Neuts (auto) 14.4 H, Absolute Lymphs (auto) 0.96, Nucleated RBC % 0, ESR 24, PT 15.5 H, INR 1.2, APTT 32.6, Sodium 130 L, Potassium 3.7, Chloride 99, Carbon Dioxide 22.0, Anion Gap 9, BUN 24 H, Creatinine 1.03 H, Estim Creat Clear Calc 35.40, Est GFR (MDRD) Af Amer 65, Est GFR (MDRD) Non-Af 54 L, BUN/Creatinine Ratio 23.3 H, G lucose 184 H, Lactic Acid 2.4 H*, Calcium 9.0, Troponin I High Sens 1687 H*, C- React Prot Ext Range 92.30 H 05/10/24 01:36: Procalcitonin 1.23 H, Urine Color Yellow, Urine Clarity Clear, Urine pH 5.0, Ur Specific Marshall 1.020, Urine Protein 100 H, Urine Glucose (UA) Normal, Urine Ketones 5 H, Urine Occult Blood 50 H, Urine Nitrite Positive H, U rine Bilirubin 1 H, Urine Urobilinogen 1 H, Ur Leukocyte Esterase 100 H, Urine RBC 0 SEEN, Urine WBC >100 SEEN, Ur Squamous Epith Cells 0-5 SEEN, Amorphous Sediment 2+, Urine Bacteria 2+, Urine Mucus 0 SEEN Imaging Radiology Impression Brain CT 05/09/24 22:46 IMPRESSION: No acute intracranial abnormality. Chronic changes. Electronically Signed: Patricia Gregory MD at 1:05 EST Reading Location ID and State: [facility] / [place] Tel , Service support , Foot X-Ray 05/09/24 22:46 IMPRESSION: 1. Amputation or osteolysis of the terminal geo of the second and third digits is new compared to last year. 2. Interval resolution of periarticular sclerosis at the second through fourth digits compared to April 28, 2023. 3. Chronic at least partially healed intra-articular fracture of the proximal fifth proximal phalanx. There was acute displaced fracture at this location on prior exam April 28, 2023. 4. Soft tissue swelling at the level of the distal MTP joints and in the toes. No soft tissue gas. 5. No jessica bone destruction. 6. MRI or bone scan is suggested if there is strong suspicion of early osteomyelitis. Electronically Signed: Patricia Gregory MD at 1:00 EST Reading Location ID and State: [facility] / [place] Tel , Service support , Chest X-Ray 05/09/24 23:05 IMPRESSION: 1. Mild increased elevation of the right hemidiaphragm with mild increased linear markings and bronchopulmonary cuffing in the medial right lung base. Considerations include mild bronchitis and/or minimal infiltrate. 2. Otherwise stable exam. Electronically Signed: Patricia Gregory MD at 0:52 EST Reading Location ID and State: [facility] / [place] Tel , Service support , Assessment & Plan Assessment/Plan (1) Diabetic foot infection: PLAN: Plan 1. Diabetic foot wound with a non-STEMI possible type II ? Will place on a heparin drip ? Will consult cardiology as well as podiatry ? Will obtain an echocardiogram ? Continue with vancomycin and Zosyn ? Will obtain an MRI in the morning for evaluation of possible osteomyelitis ? Awaiting verification of her home medications ? Will make n.p.o. pending evaluation by either cardiology or podiatry and possible intervention today 2. Essential HTN/HLD/CAD status post stent ? Can restart her home medications when verified ? Will continue to monitor and make adjustments as necessary ? Echo pending ? Appreciate cardiology's assistance 3. DM2 ? Sign scale insulin ? Accu-Cheks ACHS ? Will monitor make adjustments as necessary ? Will hold her home metformin DVT: Heparin drip 75 minutes was spent on direct patient care, including documentation as well as chart review and collaboration with colleagues Charges/Coding Visit Charges Inpatient E&M: 06965 Init Hosp L3
[2024-05-10] MEDS: Aspirin 81 MG TAB.CHEW 324 MG PO (02:23)
[2024-05-10] MEDS: Vancomycin HCl 1,750 MG in 0.9% Normal Saline (500mL Bag) 500 ML 250 MG IV (02:24)
--- NOTE | 2024-05-10 02:38 | ECHOCS_ITS ---
Reason For Study: Abn EKG, Elevated Troponins Procedure This was a 2D Doppler, Color Flow transthoracic echocardiogram. Contrast injection was performed. Exam performed portable in ICU/CCU. Left Ventricle Normal LV size. The left ventricular ejection fraction is 30 %. Moderately severe global left ventricular systolic dysfunction. [place] : Severely Hypokinetic. Mid-anteroseptal : Hypokinetic. Mid- Anterior : Hypokinetic. The rest of the wall segments are normal. Right Ventricle Normal RV size. Normal systolic function. Atria Normal left atrium. Normal right atrium. Mitral Valve There is moderate mitral annular calcification. Mild-Moderate (1-2+) eccentric mitral valve insufficiency. Tricuspid Valve Normal tricuspid valve. Aortic Valve Trisinus/trileaflet aortic valve. Great Vessels Normal aortic root. The pulmonary artery is normal size. Inferior vena cava collapse with sniff. Pericardium/Pleural No pericardial effusion. Medication Diluted definity 3ml given slow IV push to enhance endocardial definition. MMode/2D Measurements & Calculations LVIDd: 5.3 cm IVSd: 0.83 cm asc Aorta Diam: 2.5 cm LVIDs: 4.3 cm LVPWd: 1.0 cm RVDd: 3.5 cm FS: 18.6 % LAV(MOD-bp): 54.6 ml LVAd ap4: 33.4 cm2 SV(MOD-sp4): 43.8 ml LAV(MOD-bp) Indexed: 32.6 ml/m2 LVLd ap4: 7.3 cm SI(MOD-sp4): 26.2 ml/m2 LAV(MOD-sp2): 60.5 ml EDV(MOD-sp4): 126.5 ml LAV(MOD-sp4): 44.3 ml EDV(sp4-el): 130.3 ml LVAs ap4: 26.8 cm2 LVLs ap4: 7.0 cm ESV(MOD-sp4): 82.8 ml ESV(sp4-el): 86.5 ml EF(MOD-sp4): 34.6 % EF(sp4-el): 33.6 % SV(sp4-el): 43.8 ml LA A4 area: 16.6 cm2 LA dimension(2D): 3.7 cm RA A4 area: 10.6 cm2 TAPSE: 1.8 cm Time Measurements MV dec time: 0.16 sec Doppler Measurements & Calculations MV E max arnoldo: 127.6 cm/sec Med Peak E' Arnoldo: 6.5 cm/sec MV V2 max: 138.3 cm/sec MV A max arnoldo: 93.5 cm/sec E/E' med: 19.6 MV max P.6 mmHg MV E/A: 1.4 MV V2 mean: 94.8 cm/sec MV mean P.9 mmHg MV V2 VTI: 30.7 cm Ao V2 max: 161.3 cm/sec LV V1 max: 94.0 cm/sec MV dec slope: 796.8 cm/sec2 Ao max P.4 mmHg LV V1 max P.5 mmHg Ao V2 mean: 119.1 cm/sec Ao mean P.1 mmHg Ao V2 VTI: 34.5 cm PA V2 max: 100.6 cm/sec TR max arnoldo: 299.8 cm/sec TR max P.9 mmHg ECHO/Echo Complete W/ Contrast Interpretation Summary The left ventricular ejection fraction is 30 %. Normal LV size. Moderately severe global left ventricular systolic dysfunction. Above consistent with takutsobo CMP Contrast injection was performed. Ordering Physician: Joe Jefferson Referring Physician: Valencia Mitchell Performed By: Valencia Perez, VY, RVT
--- NOTE | 2024-05-10 03:06 | PCM.RX.CS ---
Consult Antibiotic Management Pharmacy has been consulted to manage selected antibiotic: Vancomycin Type of Intervention Type of Consult: New start Labs Labs: Sodium 130 mmol/L (136-145) L 05/09/24 22:00 Potassium 3.7 mmol/L (3.5-5.1) 05/09/24 22:00 Chloride 99 mmol/L (98-107) 05/09/24 22:00 Carbon Dioxide 22.0 mmol/L (21.0-32.0) 05/09/24 22:00 Anion Gap 9 (5-15) 05/09/24 22:00 BUN 24 mg/dL (7-18) H 05/09/24 22:00 Creatinine 1.03 mg/dL (0.55-1.02) H 05/09/24 22:00 Est GFR (MDRD) Af Amer 65 mL/min (>60) 05/09/24 22:00 Est GFR (MDRD) Non-Af 54 mL/min (>60) L 05/09/24 22:00 BUN/Creatinine Ratio 23.3 RATIO (10-20) H 05/09/24 22:00 Glucose 184 mg/dL (74-106) H 05/09/24 22:00 Dosing Weight Weight used for dosin.6 kg Estimated Creatinine Clearance Estimated Creatinine Clearance: 35.4 Pharmacy Plan for Drug Dosing Pharmacy Plan for Drug Dosing: Pharmacy Service will continue to monitor and adjust dosing as required. 1750 GIVEN IN ER, 750MG Q24H TROUGH PRIOR TO 3RD DOSE Follow-Up Labs Follow-Up Labs: Trough: Vancomycin Date/Time Labs Ordered Labs to be done on [date and time ordered]: 05/12 @ 0200
[2024-05-10] MEDS: 0.9% Normal Saline (1000mL) 1,000 ML 75 ML IV ×2 (03:09→17:36)
[2024-05-10 03:43] LABS: Troponin-I HS 1450 pg/mL (3.0-54.0)
[2024-05-10 04:06] LABS: Reflex Lactate? Y
[2024-05-10 05:05] LABS: Absolute Lymphocyte Count 1.05 X10^3/uL (0.83-4.51); Absolute Neutrophil Count 15.5 X10^3/uL (2.0-7.7); Basophil# 0.04 X10^3/uL; Basophil% 0.2 % (0-1); Eosinophil# 0.64 X10^3/uL; Eosinophils% 3.5 % (0-5); Hemoglobin 10.1 g/dL (12.0-15.0); Lymphocyte # 1.05 X10^3/ul (0.83-4.51); Lymphocyte % 5.7 % (19-41); Mean Corp Hgb Conc 33.7 g/dL (32-36); Mean Corpuscular Hgb 29.9 pg (27.0-32.0); Mean Corpuscular Volume 88.8 fL (81-99); Monocyte# 0.82 X10^3/uL; Monocyte% 4.5 % (0-10); NRBC Flagged by Analyzer 0 % (0-5); Neutrophil # 15.51 X10^3/uL (2.7-7.7); Neutrophil % 84.6 % (47-70); POSITIVE MORPHOLOGY YES; Platelet Count 276 K/mm3 (150-450); RBC Distribution Width CV 13.2 % (11.6-14.6); Red Blood Count 3.38 M/mm3 (4.2-5.4); White Blood Count 18.3 K/mm3 (4.4-11.0)
[2024-05-10 05:10] LABS: Differential Indicated SCAN CRITERIA MET
[2024-05-10 05:29] LABS: Anion Gap 8 (5-15); BUN 20 mg/dL (7-18); BUN/Creat Ratio 21.7 RATIO (10-20); Calcium,Total 8.5 mg/dL (8.5-10.1); Chloride 101 mmol/L (98-107); Creatinine, Serum 0.92 mg/dL (0.55-1.02); EST Glomerular Filtration Rate 61 mL/min (>60); Est Glom Filt Rate - Afr Amer 74 mL/min (>60); Glucose 220 mg/dL (74-106); Potassium 3.7 mmol/L (3.5-5.1); Sodium Level 132 mmol/L (136-145)
[2024-05-10 05:32] LABS: Lactic Acid 1.5 mmol/L (0.4-1.9)
--- NOTE | 2024-05-10 05:55 | MRI_ITS ---
STUDY: MRI RIGHT FOOT, WITHOUT AND WITH IV CONTRAST REASON FOR EXAM: Female, 88 years old. Right toe osteo TECHNIQUE: Standardized fat and water weighted pulse sequences were obtained in all 3 orthogonal planes. Following the intravenous administration of 14 cc Clariscan contrast, additional postcontrast imaging was obtained. COMPARISON: Right foot radiographs dated 05/09/2024. FINDINGS: There is amputation of the second and third toes through the second and third middle phalanges. There is preservation of the normal T1 marrow signal within the remainder of the visualized phalanges, metatarsals, and distal tarsal row. There is no evidence of acute osteomyelitis. Normal sesamoids without sesamoiditis, fracture or avascular necrosis. Normal joint spaces, without effusions. There are no extraarticular fluid collections. Normal visualized [place] and Lisfranc joints and normal Lisfranc ligament. Normal intermetatarsal spaces without intermetatarsal (Live) neuroma or bursitis. Normal visualized distal posterior tibialis tendon. Normal visualized distal anterior tibialis tendon. Normal visualized distal peroneus longus and brevis tendons. Normal visualized extensor digitorum longus, extensor hallucis longus, flexor digitorum brevis and flexor hallucis longus tendons. Normal visualized plantar fascia without fasciitis, fibromatosis or tear. Normal intrinsic muscles of the foot, without soft tissue masses or evidence of denervation atrophy. Normal dorsal and plantar subcutis adipose space. MRI/Lower Ext No Joint W/WO Cont IMPRESSION: Amputation of the second and third toes through the second and third middle phalanges. No evidence of acute osteomyelitis. Electronically Signed: Raoul Das MD at 10:43 EST ,
[2024-05-10 06:00] LABS: Differential Comment SCANNED
[2024-05-10] MEDS: Piperacil/Tazobactam 3.375 GM in 0.9% Normal Saline (50mL MB+) 50 ML IV ×3 (06:25→21:45)
[2024-05-10 06:44] LABS: Troponin-I HS 2007 pg/mL (3.0-54.0)
--- NOTE | 2024-05-10 08:05 | PCM.CONS.C ---
Assessment & Plan Assessment/Plan (1) Non-ST elevation NM (NSTEMI): PLAN: She presents with a non-ST elevation myocardial infarction. It is not clear whether this is demand ischemia related. We will obtain an echocardiogram to assess her ventricular function and then further recommendations to be made depending on the results of the above. (2) Presence of stent in coronary artery: PLAN: She does have a previous stents placed as noted above. Will continue following her and depending on the results of the echocardiogram as well as her clinical course further recommendations will be made. (3) Essential hypertension: PLAN: She will continue with her current blood pressure medications. HPI Consult Data Date of Consult: 05/10/24 HPI Narrative HPI Narrative: GENTRY COBB, is a 88 F who presents to the emergency room after a near fall in her bathroom. She does have a history of hypertension, coronary artery disease status post remote stenting in 2017 2011 as well as peripheral vascular disease being followed up by the vascular surgeons for which she is on clopidogrel. She was recently seen in the office in January and was doing well and she presented to the emergency room with the above. Cardiac enzymes were obtained were noted to be abnormal and cardiology was called for consultation through the nurse texting system. She denies any neck arm or jaw discomfort no dizziness or diaphoresis no near-syncope or syncope. Her EKG did demonstrate sinus tachycardia with a right bundle branch block [facility] Medical History TIA (transient ischemic attack) Stroke/cerebrovascular accident Wears eyeglasses Depression Anxiety Alcohol abuse History of restless legs syndrome Hx of syncope Dietary restriction Difficulty swallowing Hx of heartburn COPD (chronic obstructive pulmonary disease) Hx of shortness of breath Hx of edema Hx of echocardiogram Hx of cardiovascular stress test Carotid stenosis Bone infection of left foot Osteomyelitis of left foot Gangrene of left foot Wears dentures Ambulates with cane Arthritis Easy bruising Prolapsed bladder Former smoker Cardiology follow-up encounter Cellulitis of left thigh Post-op pain Ischaemic rest pain of lower extremity Open wound of left foot Cellulitis of left foot Amputated toe Rectocele Cystocele Type 2 diabetes mellitus Presence of stent in coronary artery (~07/04/11) Essential hypertension RBBB (right bundle branch block) Atherosclerotic heart disease of [place] coronary artery without angina pectoris Peripheral arterial occlusive disease HTN (hypertension) Osteoarthritis Diabetes Hyperlipidemia Carotid stenosis, bilateral BBB (bundle branch block) PAD (peripheral artery disease) Home Medications ?Medication ?Instructions ?Recorded ?Last Taken ?Type aspirin 81 mg chewable tablet 81 mg PO QHS health maintenance 06/07/16 04/28/23 History clopidogrel 75 mg tablet 75 mg PO DAILY platelet inhibitor 06/07/16 04/28/23 History multivitamin 1 tab PO DAILY SUPPLEMENT 04/28/19 04/28/23 History lisinopril 20 mg tablet 20 mg PO BID BP 01/01/21 04/28/23 History metoprolol tartrate 25 mg tablet 25 mg PO TID BP 01/01/21 04/28/23 History metformin 500 mg tablet,extended 500 mg PO BID DM 07/01/21 04/28/23 History release 24 hr cholecalciferol (vitamin D3) 25 25 mcg PO DAILY SUPPLEMENT 09/26/21 04/28/23 History mcg (1,000 unit) tablet (Vitamin D3) nitroglycerin 0.4 mg sublingual 0.4 mg sublingual Q5-15M PRN chest 02/12/23 Unknown Rx tablet pain #25 tabs acetaminophen 500 mg tablet 500 mg PO Q6H PRN pain #20 tabs 04/30/23 Unknown Rx (Tylenol Extra Strength) amlodipine 10 mg tablet 10 mg PO DAILY bp 11/12/23 Unknown History coenzyme Q10 75 mg capsule (Ultra 75 mg PO QDAY 02/03/24 Unknown History CoQ10) Allergy/AdvReac Type Severity Reaction Status Date / Time pravastatin AdvReac Severe myalgias Verified 02/03/24 10:00 [id number] Reductase AdvReac Severe myalgias Verified 02/03/24 10:00 Inhibitor Sulfa (Sulfonamide AdvReac Mild stomach Verified 02/03/24 10:00 Antibiotics) upset atorvastatin AdvReac myalgias Verified 02/03/24 10:00 Family History Father Diabetes Heart disease Brother Diabetes Colon cancer Brother Diabetes Surgical History Hx of toe surgery S/P bladder repair History of colonoscopy History of tonsillectomy Cataract extraction status of right eye Presence of coronary angioplasty implant and graft (~07/04/11) History of hemorrhoidectomy History of hysterectomy History of left-sided carotid endarterectomy Status post peripheral artery angioplasty History of heart artery stent Social History Smoking Status: Current some day smoker tobacco type: cigarettes and cigars how long ago did patient quit smokin + years ago alcohol intake: current alcohol intake frequency: a few times a month Alcohol type: wine substance use type: does not use caffeine: Yes Type: coffee Number of servings: 2 what type of physical activity do you participate in: walking seatbelt use: always do you feel safe at home: Yes ROS Constitutional Constitutional: Denies fever(s) or weight loss Eyes Eyes: Reports systems reviewed and no addt'l complaints, except as documented ENT HEENT: Reports systems reviewed and no addt'l complaints, except as documented Cardiovascular Cardiovascular: Denies chest pain at rest, chest pain with activity, dyspnea at rest, dyspnea on exertion, edema, palpitations or paroxysmal nocturnal dyspnea Respiratory/Chest Respiratory/Chest: Denies dyspnea on exertion, productive cough, shortness of breath at rest or shortness of breath with exertion Gastrointestinal Gastrointestinal: Denies change in bowel habits, nausea, vomiting or weight changes Genitourinary Genitourinary: Denies difficulty urinating Musculoskeletal Musculoskeletal: Denies joint stiffness or muscle weakness Integumentary Integumentary: Denies lesions Neurologic Neurologic: Denies dizziness or syncope Psychiatric Psychiatric: Denies anxiety Endocrine Endocrinology: Denies excessive sweating or fatigue Hematologic/Lymphatic Hematologic/Lymphatic: Denies anemia Allergic/Immunologic Allergic/Immunologic: Denies seasonal rhinorrhea Physical Exam Const alert, oriented x3 and no apparent distress General Appearance: cooperative HEENT hearing grossly normal bilaterally Head and Scalp: atraumatic Eyes EOMs intact bilaterally Neck General: normal visual inspection Chest inspection of chest normal and palpation of chest normal Resp normal respiratory effort Auscultation: clear to auscultation bilaterally Cardio regular rate, regular rhythm, S1 normal heart sound and S2 normal heart sound Jugular Venous Distention: JVD GI normal to inspection, nondistended, normoactive bowel sounds Extremity normal capillary refill and no pedal edema Peripheral Pulses: Yes pulses 2+ throughout and femoral pulses present Skin no rashes or lesions noted Neuro oriented x3 and CN's II-XII intact bilaterally Psych Appearance: grossly normal and appropriate Risk Stratification Risk Stratification Applicable: Yes Age >/= 65: Yes >/= 3 CAD Risk Factors (HTN, HLD, DM, family hx of CAD, or current smoker): Yes Aspirin Use in the Past 7 Days: No Severe Angina (>/= episodes in 24 hours): No EKG ST Changes >/= 0.5mm: No Positive Cardiac Marker: Yes JUAN LUIS Risk Stratification Score: 3 JUAN LUIS % Risk: 13% Risk Objective Data Vital Signs: Vital Signs Temp Pulse Resp BP Pulse Ox O2 Del Method O2 Flow Rate 97.8 F 89 21 H 146/57 H 94 Nasal Cannula 2 05/10/24 06:00 05/10/24 07:00 05/10/24 07:00 05/10/24 07:00 05/10/24 07:00 05/10/24 07:00 05/10/24 07:00 Oxygen Flow Rate (L/min) 2 Oxygen Delivery Method Nasal Cannula Weight: 142 lb 6.698 oz Body Mass Index (BMI) 24.3 Intake & Output: Intake and Output for Last 24 Hours 05/08/24 05/09/24 05/10/24 23:59 23:59 23:59 Intake Total 635 / 635 Balance 635 / 635 Lab / Micro Data 05/10/24 04:35 05/10/24 04:35 Labs: Laboratory Results - last 24 hr 05/09/24 22:00: WBC 16.2 H, RBC 3.56 L, Hgb 10.5 L, Hct 32.2 L, MCV 90.4, MCH 29.5, MCHC 32.6, RDW Std Deviation 43.7, RDW Coeff of Kathy 13.2, Plt Count 299, MPV 10.1, Immature Gran % (Auto) 0.700, Neut % (Auto) 88.8 H, Lymph % (Auto) 5.9 L, [place] % (Auto) 4.2, Eos % (Auto) 0.1, Baso % (Auto) 0.3, Absolute Neuts (auto) 14.4 H, Absolute Lymphs (auto) 0.96, Nucleated RBC % 0, ESR 24, PT 15.5 H, INR 1.2, APTT 32.6, Sodium 130 L, Potassium 3.7, Chloride 99, Carbon Dioxide 22.0, Anion Gap 9, BUN 24 H, Creatinine 1.03 H, Estim Creat Clear Calc 35.40, Est GFR (MDRD) Af Amer 65, Est GFR (MDRD) Non-Af 54 L, BUN/Creatinine Ratio 23.3 H, Glucose 184 H, Lactic Acid 2.4 H*, Calcium 9.0, Troponin I High Sens 1687 H*, C-React Prot Ext Range 92.30 H 05/10/24 01:36: Procalcitonin 1.23 H, Urine Color Yellow, Urine Clarity Clear, Urine pH 5.0, Ur Specific [place] 1.020, Urine Protein 100 H, Urine Glucose (UA) Normal, Urine Ketones 5 H, Urine Occult Blood 50 H, Urine Nitrite Positive H, Urine Bilirubin 1 H, Urine Urobilinogen 1 H, Ur Leukocyte Esterase 100 H, Urine RBC 0 SEEN, Urine WBC >100 SEEN, Ur Squamous Epith Cells 0-5 SEEN, Amorphous Sediment 2+, Urine Bacteria 2+, Urine Mucus 0 SEEN 05/10/24 03:10: Troponin I High Sens 1450 H* 05/10/24 04:35: WBC 18.3 H, RBC 3.38 L, Hgb 10.1 L, Hct 30.0 L, MCV 88.8, MCH 29.9, MCHC 33.7, RDW Std Deviation 43.0, RDW Coeff of Kathy 13.2, Plt Count 276, MPV 10.0, Immature Gran % (Auto) 1.500 H, Neut % (Auto) 84.6 H, Lymph % (Auto) 5.7 L, [place] % (Auto) 4.5, Eos % (Auto) 3.5, Baso % (Auto) 0.2, Absolute Neuts (auto) 15.5 H, Absolute Lymphs (auto) 1.05, Nucleated RBC % 0, Differential Comment SCANNED, Sodium 132 L, Potassium 3.7, Chloride 101, Carbon Dioxide 23.0, Anion Gap 8, BUN 20 H, Creatinine 0.92, Estim Creat Clear Calc 36.50, Est GFR (MDRD) Af Amer 74, Est GFR (MDRD) Non-Af 61, BUN/Creatinine Ratio 21.7 H, Glucose 220 H, Lactic Acid 1.5, Calcium 8.5 05/10/24 06:15: Troponin I High Sens 2006 H* Cardiology Labs/Tests 05/09/24 22:00: WBC 16.2 H, RBC 3.56 L, Hgb 10.5 L, Hct 32.2 L, MCV 90.4, MCH 29.5, MCHC 32.6, Plt Count 299, MPV 10.1, Immature Gran % (Auto) 0.700, Neut % (Auto) 88.8 H, Lymph % (Auto) 5.9 L, [place] % (Auto) 4.2, Eos % (Auto) 0.1, Baso % (Auto) 0.3, Absolute Neuts (auto) 14.4 H, Nucleated RBC % 0, PT 15.5 H, INR 1.2, APTT 32.6, Sodium 130 L, Potassium 3.7, Chloride 99, Carbon Dioxide 22.0, Anion Gap 9, BUN 24 H, Creatinine 1.03 H, Est GFR (MDRD) Af Amer 65, Est GFR (MDRD) Non-Af 54 L, BUN/Creatinine Ratio 23.3 H, Glucose 184 H, Lactic Acid 2.4 H*, Calcium 9.0 05/10/24 01:36: Urine Color Yellow, Urine Clarity Clear, Urine pH 5.0, Ur Specific [place] 1.020, Urine Protein 100 H, Urine Glucose (UA) Normal, Urine Ketones 5 H, Urine Occult Blood 50 H, Urine Nitrite Positive H, Urine Bilirubin 1 H, Urine Urobilinogen 1 H, Ur Leukocyte Esterase 100 H, Urine RBC 0 SEEN, Urine WBC >100 SEEN 05/10/24 04:35: WBC 18.3 H, RBC 3.38 L, Hgb 10.1 L, Hct 30.0 L, MCV 88.8, MCH 29.9, MCHC 33.7, Plt Count 276, MPV 10.0, Immature Gran % (Auto) 1.500 H, Neut % (Auto) 84.6 H, Lymph % (Auto) 5.7 L, [place] % (Auto) 4.5, Eos % (Auto) 3.5, Baso % (Auto) 0.2, Absolute Neuts (auto) 15.5 H, Nucleated RBC % 0, Sodium 132 L, Potassium 3.7, Chloride 101, Carbon Dioxide 23.0, Anion Gap 8, BUN 20 H, Creatinine 0.92, Est GFR (MDRD) Af Amer 74, Est GFR (MDRD) Non-Af 61, BUN/Creatinine Ratio 21.7 H, Glucose 220 H, Lactic Acid 1.5, Calcium 8.5 Rhythm: EKG: ECHO: Stress Test: Cardiac Cath: PCI: CT Surgery: Holter monitor: EPS: PPM: CXR: Chest CT Scan: Radiography Diagnostic Testing: Radiology Impression Brain CT 05/09/24 22:46 IMPRESSION: No acute intracranial abnormality. Chronic changes. Electronically Signed: Patricia Gregory MD at 1:05 EST Reading Location ID and State: [facility] / [place] Tel , Service support , Foot X-Ray 05/09/24 22:46 IMPRESSION: 1. Amputation or osteolysis of the terminal geo of the second and third digits is new compared to last year. 2. Interval resolution of periarticular sclerosis at the second through fourth digits compared to April 28, 2023. 3. Chronic at least partially healed intra-articular fracture of the proximal fifth proximal phalanx. There was acute displaced fracture at this location on prior exam April 28, 2023. 4. Soft tissue swelling at the level of the distal MTP joints and in the toes. No soft tissue gas. 5. No jessica bone destruction. 6. MRI or bone scan is suggested if there is strong suspicion of early osteomyelitis. Electronically Signed: Patricia Gregory MD at 1:00 EST Reading Location ID and State: [facility] / [place] Tel , Service support , Chest X-Ray 05/09/24 23:05 IMPRESSION: 1. Mild increased elevation of the right hemidiaphragm with mild increased linear markings and bronchopulmonary cuffing in the medial right lung base. Considerations include mild bronchitis and/or minimal infiltrate. 2. Otherwise stable exam. Electronically Signed: Patricia Gregory MD at 0:52 EST Reading Location ID and State: [facility] / [place] Tel , Service support ,
--- NOTE | 2024-05-10 09:05 | NURSING ---
Patient left unit to MRI
[2024-05-10 09:07] LABS: Partial Thromboplast Time 61.5 Seconds (24.1-36.2)
--- NOTE | 2024-05-10 11:51 | CASEMGMT ---
IKE MCKEON Assessment Face to Face with patient for initial transition planning/care coordination assessment. IKE MCKEON introduced self and role at [facility], pt voices understanding. Pt is A&Ox4 and is resting comfortably in bed and is calm. Pt daughter (Jessie) and GD at bedside. Care providers, pharmacy, and demographics verified. Admitting dx: Sepsis LACE Strata: 2 PCP: Valencia Mitchell Specialists: Te (Podiatry), SAMUEL (Cardio) Preferred Pharmacy: [facility] Insurance: [employer] [facility] Prescription Benefit: Yes LNOK: Alejandra Reyes (Daughter), Jessie Maza (Daughter) Living Arrangements: Patient lives with her daughter (Alejandra) and her MAY in a single story home with 3 steps to enter. Pt reports that laundry is in the basement and that there are 14 steps to manage to get to the basement. ADLs/IADLs: Pt states that she tries to be as independent as possible but requires assistance at times. Normally, the pt daughter is able to provide this help. However, the pt states that her daughter is recovering from a recent stroke and is unable to provide the needed assistance currently. Transportation: Self, Family. Pt states that her MAY has been providing transportation recently DME: Functioning BGM with sufficient supplies. Shower chair. Raised TS. Cane. FWW. Grab bars. W/C. HHC/SNF: Hx with [facility]. Denies SNF history WHC: Pt states that she has been to the [facility] in the past and that she had a bad experience there. Pt states that she cares for her wound per herself at home. Pt?s goal:Return to PLOF Plan: TBD. Anticipate SNF vs HH. Per MRI results, no osteo noted. 6-Click is 7. Pt states that she does not feel comfortable returning home at this time due to her and her daughter's current status. Pt states that she is agreeable to attending a SNF as long as insurance helps pay for the stay. At this time, there is no order for therapy evaluations. This IKE MCKEON paged the hospitalist to see if this can be ordered. SW aware. Care management to continue to follow. Erick Bojorquez RN, CM
--- NOTE | 2024-05-10 12:45 | CASEMGMT ---
Social Work SW met w/pt in room, pt's daughter Jessie, granddaughter and two great granddaughters present. SW spoke w/them about pt possibly going somewhere for rehab should it be needed. SW provided to pt and family the long term list from [facility]. SW asked them to review the list and make a couple of choices, should this be needed. Pt's PT/OT are still pending. SW explained that pt has not had PT/OT yet so we will need to see how well pt moves to see if rehab in a retirement facility would be warranted. Pt and family state understanding. Plan: TBD, CM/SW to follow up once pt has had PT/OT to explore appropriate discharge options. PAOLA Rodney
--- NOTE | 2024-05-10 14:52 | PN_ITS ---
Subjective Subjective Patient seen and examined. She has no active complaints today. She says she came in with a complaint of shortness of breath. She apparently also did fall at home. She denies any cough or chest pain, nausea vomiting, palpitations, dizziness or vomiting or any other symptoms. Review of systems otherwise negative. Objective Data Objective Data Vital Signs: Vital Signs Temp Pulse Resp BP Pulse Ox O2 Del Method O2 Flow Rate 98.6 F 96 16 145/93 H 93 Room Air 2 05/10/24 14:40 05/10/24 14:40 05/10/24 14:40 05/10/24 14:40 05/10/24 14:40 05/10/24 14:40 05/10/24 08:00 Oxygen Flow Rate (L/min) 2 Oxygen Delivery Method Room Air Weight: 142 lb 6.698 oz Body Mass Index (BMI) 24.3 Intake & Output: Intake and Output for Last 24 Hours 05/08/24 05/09/24 05/10/24 23:59 23:59 23:59 Intake Total 1578.73 / 1578.73 Balance 1578.73 / 1578.73 Lab / Micro Data 05/10/24 04:35 05/10/24 04:35 Labs: Laboratory Results - last 24 hr 05/09/24 22:00: WBC 16.2 H, RBC 3.56 L, Hgb 10.5 L, Hct 32.2 L, MCV 90.4, MCH 29.5, MCHC 32.6, RDW Std Deviation 43.7, RDW Coeff of Kathy 13.2, Plt Count 299, MPV 10.1, Immature Gran % (Auto) 0.700, Neut % (Auto) 88.8 H, Lymph % (Auto) 5.9 L, [place] % (Auto) 4.2, Eos % (Auto) 0.1, Baso % (Auto) 0.3, Absolute Neuts (auto) 14.4 H, Absolute Lymphs (auto) 0.96, Nucleated RBC % 0, ESR 24, PT 15.5 H, INR 1.2, APTT 32.6, Sodium 130 L, Potassium 3.7, Chloride 99, Carbon Dioxide 22.0, Anion Gap 9, BUN 24 H, Creatinine 1.03 H, Estim Creat Clear Calc 35.40, Est GFR (MDRD) Af Amer 65, Est GFR (MDRD) Non-Af 54 L, BUN/Creatinine Ratio 23.3 H, G lucose 184 H, Lactic Acid 2.4 H*, Calcium 9.0, Troponin I High Sens 1687 H*, C- React Prot Ext Range 92.30 H 05/10/24 01:36: Procalcitonin 1.23 H, Urine Color Yellow, Urine Clarity Clear, Urine pH 5.0, Ur Specific [place] 1.020, Urine Protein 100 H, Urine Glucose (UA) Normal, Urine Ketones 5 H, Urine Occult Blood 50 H, Urine Nitrite Positive H, U rine Bilirubin 1 H, Urine Urobilinogen 1 H, Ur Leukocyte Esterase 100 H, Urine RBC 0 SEEN, Urine WBC >100 SEEN, Ur Squamous Epith Cells 0-5 SEEN, Amorphous Sediment 2+, Urine Bacteria 2+, Urine Mucus 0 SEEN 05/10/24 03:10: Troponin I High Sens 1450 H* 05/10/24 04:35: WBC 18.3 H, RBC 3.38 L, Hgb 10.1 L, Hct 30.0 L, MCV 88.8, MCH 29.9, MCHC 33.7, RDW Std Deviation 43.0, RDW Coeff of Kathy 13.2, Plt Count 276, MPV 10.0, Immature Gran % (Auto) 1.500 H, Neut % (Auto) 84.6 H, Lymph % (Auto) 5.7 L, [place] % (Auto) 4.5, Eos % (Auto) 3.5, Baso % (Auto) 0.2, Absolute Neuts (auto) 15.5 H, Absolute Lymphs (auto) 1.05, Nucleated RBC % 0, Differential Comment SCANNED, Sodium 132 L, Potassium 3.7, Chloride 101, Carbon Dioxide 23.0, Anion Gap 8, BUN 20 H, Creatinine 0.92, Estim Creat Clear Calc 36.50, Est GFR (MDRD) Af Amer 74, Est GFR (MDRD) Non-Af 61, BUN/Creatinine Ratio 21.7 H, G lucose 220 H, Lactic Acid 1.5, Calcium 8.5 05/10/24 06:15: Troponin I High Sens 2006 H* 05/10/24 08:45: APTT 61.5 H Radiography Diagnostic Testing: Radiology Impression Brain CT 05/09/24 22:46 IMPRESSION: No acute intracranial abnormality. Chronic changes. Electronically Signed: Patricia Gregory MD at 1:05 EST Reading Location ID and State: [place] / [place] Tel , Service support , Foot X-Ray 05/09/24 22:46 IMPRESSION: 1. Amputation or osteolysis of the terminal geo of the second and third digits is new compared to last year. 2. Interval resolution of periarticular sclerosis at the second through fourth digits compared to April 28, 2023. 3. Chronic at least partially healed intra-articular fracture of the proximal fifth proximal phalanx. There was acute displaced fracture at this location on prior exam April 28, 2023. 4. Soft tissue swelling at the level of the distal MTP joints and in the toes. No soft tissue gas. 5. No jessica bone destruction. 6. MRI or bone scan is suggested if there is strong suspicion of early osteomyelitis. Electronically Signed: Patricia Gregory MD at 1:00 EST Reading Location ID and State: [place] / [place] Tel , Service support , Chest X-Ray 05/09/24 23:05 IMPRESSION: 1. Mild increased elevation of the right hemidiaphragm with mild increased linear markings and bronchopulmonary cuffing in the medial right lung base. Considerations include mild bronchitis and/or minimal infiltrate. 2. Otherwise stable exam. Electronically Signed: Patricia Gregory MD at 0:52 EST Reading Location ID and State: [place] / [place] Tel , Service support , Echocardiogram 05/10/24 02:38 Interpretation Summary The left ventricular ejection fraction is 30 %. Normal LV size. Moderately severe global left ventricular systolic dysfunction. Above consistent with takutsobo CMP Contrast injection was performed. 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 No evidence of acute osteomyelitis. Electronically Signed: Raoul Das MD at 10:43 EST , Physical Exam Const alert, oriented x3, no apparent distress and well nourished General Appearance: cooperative HEENT normocephalic, head/scalp atraumatic and moist oral mucous membranes Eyes PERRL and EOMs intact bilaterally Neck no lymphadenopathy and supple Lymph Lymphatic: no lymphadenopathy noted and no lymphedema noted Resp normal respiratory effort, normal air movement and clear to auscultation bilaterally Cardio regular rhythm, S1 normal heart sound and S2 normal heart sound GI normal to inspection, nondistended, normoactive bowel sounds, soft to palpation, non-tender and non-distended Extremity normal capillary refill, no clubbing, cyanosis or edema and no calf tenderness Extremity Narrative: has an eschar over the outer aspect of the right great toe, with right great toe also swollen and erythematous. General Extremity: no tenderness to palpation of joints or extremities Skin Skin Narrative: as under extremities. Neuro CN's II-XII intact bilaterally, no focal motor deficits and no sensory deficits noted Motor Exam: strength 5/5 throughout and general weakness Psych thought process normal, cooperative and affect normal Appearance: appropriate Assessment & Plan Assessment/Plan (1) Acute UTI: (2) Diabetic foot infection: (3) Non-ST elevation OK (NSTEMI): PLAN: Plan #nonstemi * Initial troponin was 1600 and trended up to over 2000. * 2D echo ordered showed EF of 30% with moderately severe left ventricular systolic dysfunction and hypokinesia of the apex and mid anteroseptal region, consistent with Takotsubo cardiomyopathy. * cardiology on board * EKG did show t wave inversions. Per cardiology, this is likely due to her right bundle branch block * on aspirin, high intensity statin and heparin drip * #UTI: Urinalysis shows 2+ bacteria. Urine cultures pending. Currently on IV vancomycin and Zosyn. Zosyn should cover the UTI. #Diabetic foot ulcer * podiatry consulted. MRI of the foot pending * on IV vancomycin and zosyn * wound cultures ordered #Hyperlipidemia: on high intensity statin #CAD s/p stent * on aspirin and plavix as well as high intensity satin #Type 2 diabetes mellitus * on ISS. Accuchecks ACHS. * metformin on hold. * A1C pending DVT prophylaxis: heparin drip Disposition: transfer to PCU Charges/Coding Visit Charges Inpatient E&M: 25985 Subs Hosp L3
[2024-05-10 16:09] LABS: Partial Thromboplast Time 63.9 Seconds (24.1-36.2)
[2024-05-10] MEDS: Acetaminophen 325 MG Tablet 650 MG PO (17:36)
[2024-05-10] MEDS: Lisinopril 20 MG Tablet PO (21:47)
[2024-05-10] MEDS: Metoprolol Tartrate 25 MG Tablet PO (21:47)
[2024-05-10 22:56] LABS: Partial Thromboplast Time 82.4 Seconds (24.1-36.2)
[2024-05-11] VITALS (20 sets, daily range): BP systolic 123–143; BP diastolic 49–94; PULSE 70–89; RESP 16–24; TEMP 36.6–38.2; O2SAT 91–99; BMI 25.8
[2024-05-11] MEDS: Vancomycin HCl 750 MG in 0.9% Normal Saline (250mL Bag) 250 ML 250 MG IV (02:01)
[2024-05-11] MEDS: Acetaminophen 325 MG Tablet 650 MG PO (06:08)
[2024-05-11] MEDS: Lisinopril 20 MG Tablet PO ×2 (06:09→21:48)
[2024-05-11] MEDS: amLODIPine 10 MG Tablet PO (06:09)
[2024-05-11] MEDS: Metoprolol Tartrate 25 MG Tablet PO ×3 (06:10→21:48)
[2024-05-11] MEDS: Clopidogrel Bisulfate 75 MG Tablet PO (06:10)
[2024-05-11] MEDS: Piperacil/Tazobactam 3.375 GM in 0.9% Normal Saline (50mL MB+) 50 ML IV ×3 (06:11→21:48)
[2024-05-11 06:18] LABS: Absolute Neutrophil Count 9.6 X10^3/uL (2.0-7.7); Basophil# 0.06 X10^3/uL; Basophil% 0.5 % (0-1); Eosinophil# 0.04 X10^3/uL; Eosinophils% 0.3 % (0-5); Hemoglobin 10.2 g/dL (12.0-15.0); Lymphocyte % 12.6 % (19-41); Mean Corp Hgb Conc 32.9 g/dL (32-36); Mean Corpuscular Hgb 29.7 pg (27.0-32.0); Mean Corpuscular Volume 90.1 fL (81-99); Mean Platelet Vol. 10.4 fl (6.2-12.0); Monocyte# 0.65 X10^3/uL; Monocyte% 5.4 % (0-10); NRBC Flagged by Analyzer 0 % (0-5); Neutrophil # 9.61 X10^3/uL (2.7-7.7); Neutrophil % 80.4 % (47-70); Platelet Count 276 K/mm3 (150-450); RBC Distribution Width CV 13.3 % (11.6-14.6); Red Blood Count 3.44 M/mm3 (4.2-5.4)
[2024-05-11 06:48] LABS: Bedside Glucose 155 mg/dL (74-106)
[2024-05-11 06:50] LABS: Anion Gap 6 (5-15); BUN 20 mg/dL (7-18); BUN/Creat Ratio 25.9 RATIO (10-20); Calcium,Total 7.9 mg/dL (8.5-10.1); Chloride 104 mmol/L (98-107); Creatinine, Serum 0.77 mg/dL (0.55-1.02); EST Glomerular Filtration Rate 75 mL/min (>60); Est Glom Filt Rate - Afr Amer 91 mL/min (>60); Estimated Creatinine Clearance 41.97 ml/min; Glucose 162 mg/dL (74-106); Potassium 3.6 mmol/L (3.5-5.1); Sodium Level 132 mmol/L (136-145)
--- NOTE | 2024-05-11 07:46 | CON.PCM_ITS ---
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: (2) Type 2 diabetes mellitus with diabetic polyneuropathy: QUALIFIERS: Diabetes mellitus terminal system operator insulin use: without terminal system operator use Qualified Code(s): E11.42 - Type 2 diabetes mellitus with diabetic polyneuropathy (3) Type 2 diabetes mellitus with foot ulcer: (4) Diabetic foot infection: (5) Peripheral vascular disease, unspecified: (6) Non-pressure chronic ulcer of other part of right foot with fat layer exposed: PLAN: Plan Patient seen and evaluated Right foot: There is an superficial ulceration to the lateral forefoot near the fifth metatarsal head measuring 0.5 cm x 0.3 cm with fibrogranular layer. No signs of infection. There is a full-thickness ulceration to the right hallux overlying the interphalangeal joint with granular margin and central eschar. There is improvement in localized erythema and peeling skin about the hallux. No purulent drainage, no malodor. No pain to palpation about the hallux. WBC currently 12.0, decreased from 18.3; ESR 24; CRP 92.30; Hgb 10.5; Hct 32.2; Lactic Acid 1.5 Currently on IV Vanco/Zosyn Culture: Swab of Right Hallux, awaiting results Betadine applied to ulcerative site dressed with dry sterile dressing. Radiographs: Xray Right foot negative for Osteomyelitis. MRI of Right foot performed 05/10/24 negative for Osteomeyelitis. LEAS ordered, awaiting results Medicine following for medical management, they are greatly appreciated. Cardiology following with planned intervention 05/11/2024 Wound nurse following for assistance with dressing change. I discussed with the patient at bedside this a.m. plan for surgical intervention to take place tomorrow 05/12/2024 at 12 noon, once stable following cardiology intervention this afternoon. Discussed with her the need to perform excisional debridement of her ulceration in the OR with application of grafting product, in addition to debridement of bone of the right hallux to decrease pressure at the ulcerative site to prevent recidivism, further infection, and more proximal amputation. Patient is in agreement with the plan and is willing to proceed forward with intervention tomorrow. She will remain n.p.o. after midnight for planned surgical intervention 05/12/2024 at 12 noon. Surgical consent to be obtained by nursing team for d ebridement of ulceration right hallux and lateral forefoot with application of advanced wound care product and debridement of bone right hallux. Podiatry will continue to follow while in house Danielito Art Jr. D.P.M. 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 Patient states she does not remember falling and does not complain of any pain following her fall. She does report ongoing right hallux ulceration which she had been following in office with Dr. Escudero and Dr. Tiwari and had been on oral antibiotic. She did have upcoming appointment 05/11/[address] Tiwari. When in the ED she was found to have elevated WBC, elevated CRP, and normal ESR. It is also noted elevated troponin and abnormal EKG with T wave inversion with suspected NSTEMI. She was started on heparin drip. MRI was ordered by medicine team for further evaluation. Cardiology consulted. Podiatry consulted for evaluation and management of right hallux ulceration. Patient currently denies chest pain, nausea, vomiting, fever, chills, shortness of breath. Denies pain to the right hallux however does have pain about the superficial ulceration on the lateral aspect of the forefoot. Denies further complaints. [facility] Medical History TIA (transient ischemic attack) Stroke/cerebrovascular accident Wears eyeglasses Depression Anxiety Alcohol abuse History of restless legs syndrome Hx of syncope Dietary restriction Difficulty swallowing Hx of heartburn COPD (chronic obstructive pulmonary disease) Hx of shortness of breath Hx of edema Hx of echocardiogram Hx of cardiovascular stress test Carotid stenosis Bone infection of left foot Osteomyelitis of left foot Gangrene of left foot Wears dentures Ambulates with cane Arthritis Easy bruising Prolapsed bladder Former smoker Cardiology follow-up encounter Cellulitis of left thigh Post-op pain Ischaemic rest pain of lower extremity Open wound of left foot Cellulitis of left foot Amputated toe Rectocele Cystocele Type 2 diabetes mellitus Presence of stent in coronary artery (~07/04/11) Essential hypertension RBBB (right bundle branch block) Atherosclerotic heart disease of [place] coronary artery without angina pectoris Peripheral arterial occlusive disease HTN (hypertension) Osteoarthritis Diabetes Hyperlipidemia Carotid stenosis, bilateral BBB (bundle branch block) PAD (peripheral artery disease) Home Medications ?Medication ?Instructions ?Recorded ?Last Taken ?Type aspirin 81 mg chewable tablet 81 mg PO QHS health maintenance 06/07/16 04/28/23 History clopidogrel 75 mg tablet 75 mg PO DAILY platelet inhibitor 06/07/16 04/28/23 History multivitamin 1 tab PO DAILY SUPPLEMENT 04/28/19 04/28/23 History lisinopril 20 mg tablet 20 mg PO BID BP 01/01/21 04/28/23 History metoprolol tartrate 25 mg tablet 25 mg PO TID BP 01/01/21 04/28/23 History metformin 500 mg tablet,extended 500 mg PO BID DM 07/01/21 04/28/23 History release 24 hr cholecalciferol (vitamin D3) 25 25 mcg PO DAILY SUPPLEMENT 09/26/21 04/28/23 History mcg (1,000 unit) tablet (Vitamin D3) nitroglycerin 0.4 mg sublingual 0.4 mg sublingual Q5-15M PRN chest 02/12/23 Unknown Rx tablet pain #25 tabs acetaminophen 500 mg tablet 500 mg PO Q6H PRN pain #20 tabs 04/30/23 Unknown Rx (Tylenol Extra Strength) amlodipine 10 mg tablet 10 mg PO DAILY bp 11/12/23 Unknown History coenzyme Q10 75 mg capsule (Ultra 75 mg PO QDAY suppliment 02/03/24 Unknown History CoQ10) Allergy/AdvReac Type Severity Reaction Status Date / Time pravastatin AdvReac Severe myalgias Verified 02/03/24 10:00 [id number] Reductase AdvReac Severe myalgias Verified 02/03/24 10:00 Inhibitor Sulfa (Sulfonamide AdvReac Mild stomach Verified 02/03/24 10:00 Antibiotics) upset atorvastatin AdvReac myalgias Verified 02/03/24 10:00 Family History Father Diabetes Heart disease Brother Diabetes Colon cancer Brother Diabetes Surgical History Hx of toe surgery S/P bladder repair History of colonoscopy History of tonsillectomy Cataract extraction status of right eye Presence of coronary angioplasty implant and graft (~07/04/11) History of hemorrhoidectomy History of hysterectomy History of left-sided carotid endarterectomy Status post peripheral artery angioplasty History of heart artery stent Social History Smoking Status: Current some day smoker tobacco type: cigarettes and cigars how long ago did patient quit smokin + years ago alcohol intake: current alcohol intake frequency: a few times a month Alcohol type: wine substance use type: does not use caffeine: Yes Type: coffee Number of servings: 2 what type of physical activity do you participate in: walking seatbelt use: always do you feel safe at home: Yes ROS Constitutional Constitutional: Denies chills, fatigue, fever(s) or malaise Eyes Eyes: Denies diplopia, erythema or loss of vision ENT HEENT: Denies dizziness, dysphagia, rhinorrhea or sore throat Cardiovascular Cardiovascular: Denies chest pain, claudication or palpitations Respiratory/Chest Respiratory/Chest: Denies dyspnea, shortness of breath at rest or wheezing Gastrointestinal Gastrointestinal: Denies abdominal pain, constipation, diarrhea, nausea or vomiting Genitourinary Genitourinary: Denies dysuria or hematuria Musculoskeletal Musculoskeletal: Denies joint pain, joint stiffness or joint swelling Integumentary Integumentary: Denies jaundice, lesions, pruritus or rash Neurologic Neurologic: Denies dizziness, numbness or seizures Psychiatric Psychiatric: Denies anxiety or depression Endocrine Endocrinology: Denies polydipsia, polyphagia or polyuria Hematologic/Lymphatic Hematologic/Lymphatic: Denies easy bleeding or easy bruising Physical Exam Const alert, oriented x3 and no apparent distress General Appearance: cooperative HEENT normocephalic Eyes General Eye: normal appearance of both eyes Neck General: normal visual inspection Lymph Lymphatic: no lymphadenopathy noted and no lymphedema noted Resp normal respiratory effort Extremity Extremity Narrative: Right lower extremity: Vascular: DP and PT pulses weakly palpable. CFT less than 5 seconds to the digits. Normal temperature gradient. Hair growth absent to digits/foot. Neurologic: Gross sensation intact. Protective sensation diminished to foot consistent with diabetic peripheral polyneuropathy. 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 Decreased range of motion of the first metatarsophalangeal joint without pain or crepitus. Decreased range of motion of the ankle joint dorsiflexion with the knee extended without pain or crepitus. No pain to palpation about the ulcerative site of the hallux. There is some tenderness to the superficial ulceration site on the lateral forefoot. No pain to palpation of calf. Derm: Varicosities noted to lower extremity and foot. Skin is thin/atrophic. Normal turgor. There is an superficial ulceration to the lateral forefoot near the fifth metatarsal head measuring 0.5 cm x 0.3 cm with fibrogranular layer. No signs of infection. There is a full-thickness ulceration to the right hallux overlying the interphalangeal joint with granular margin and central eschar. There is improvement in localized erythema and peeling skin about the hallux. No purulent drainage, no malodor. No pain to palpation about the hallux. Left Lower Extremity: Vascular: DP and PT pulses weakly palpable. CFT less than 5 seconds to the digits. Normal temperature gradient. Hair growth is absent to digits/foot. Neurologic: Gross sensation intact. Protective sensation is diminished to foot consistent with diabetic peripheral polyneuropathy. Musculoskeletal: Amputation of the fourth and fifth digit noted with well-healed cicatrix. Decreased range of motion of the first metatarsophalangeal joint without pain or crepitus. Decreased range of motion of the ankle joint in dorsiflexion with knee extended without pain or crepitus. Derm: Varicosities noted to the lower extremity and foot. Skin is thin/atrophic. Normal turgor. No open wounds. Skin no rashes or lesions noted, skin turgor normal and no jaundice Neuro moves all extremities Lab / Micro Data 05/11/24 05:30 05/11/24 05:30 Labs: Laboratory Results - last 24 hr 05/10/24 08:45: APTT 61.5 H 05/10/24 15:50: APTT 63.9 H 05/10/24 22:23: APTT 82.4 H 05/11/24 05:30: WBC 12.0 H, RBC 3.44 L, Hgb 10.2 L, Hct 31.0 L, MCV 90.1, MCH 29.7, MCHC 32.9, RDW Std Deviation 44.0 H, RDW Coeff of Kathy 13.3, Plt Count 276, MPV 10.4, Immature Gran % (Auto) 0.800, Neut % (Auto) 80.4 H, Lymph % (Auto) 12.6 L, [place] % (Auto) 5.4, Eos % (Auto) 0.3, Baso % (Auto) 0.5, Absolute Neuts (auto) 9.6 H, Absolute Lymphs (auto) 1.50, Nucleated RBC % 0, APTT 49.0 H, S odium 132 L, Potassium 3.6, Chloride 104, Carbon Dioxide 22.0, Anion Gap 6, BUN 20 H, Creatinine 0.77, Estim Creat Clear Calc 41.97, Est GFR (MDRD) Af Amer 91, Est GFR (MDRD) Non-Af 75, BUN/Creatinine Ratio 25.9 H, Glucose 162 H, Calcium 7.9 L 05/11/24 06:14: POC Glucose 155 H Imaging Radiology Impression Echocardiogram 05/10/24 02:38 Interpretation Summary The left ventricular ejection fraction is 30 %. Normal LV size. Moderately severe global left ventricular systolic dysfunction. Above consistent with takutsobo CMP Contrast injection was performed. 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 No evidence of acute osteomyelitis. Electronically Signed: Raoul Das MD at 10:43 EST ,
--- NOTE | 2024-05-11 08:57 | CASEMGMT ---
Insurance review for hospitals In-network with?[employer] [facility] insurance if transfer is recommended is as follows: [facility], [facility], [place], [facility], [facility], [facility], [facility], [place], [facility] ([facility]), and . Nikkie Sanches, Discharge Planning Asst.
--- NOTE | 2024-05-11 09:54 | WOUNDNOTE ---
wound photo: right great toe
--- NOTE | 2024-05-11 09:55 | WOUNDNOTE ---
wound photo: right lateral foot
--- NOTE | 2024-05-11 09:55 | WOUNDNOTE ---
wound photo: right lateral heel
--- NOTE | 2024-05-11 12:15 | PN_ITS ---
Subjective Subjective Patient seen and examined.S he had no active complaints. Review of systems is otherwise negative. She is for cardiac cath today and surgery by podiatry tomorrow. Objective Data Objective Data Vital Signs: Vital Signs Temp Pulse Resp BP Pulse Ox O2 Del Method O2 Flow Rate 97.8 F 74 21 H 128/77 H 99 Nasal Cannula 2 05/11/24 12:06 05/11/24 12:06 05/11/24 12:06 05/11/24 12:06 05/11/24 12:06 05/11/24 12:08 05/11/24 12:08 Oxygen Flow Rate (L/min) 2 Oxygen Delivery Method Nasal Cannula Weight: 150 lb 5.684 oz Body Mass Index (BMI) 25.8 Intake & Output: Intake and Output for Last 24 Hours 05/09/24 05/10/24 05/11/24 23:59 23:59 23:59 Intake Total 2440.50 / 2440.50 1405.90 / 1405.90 Output Total 0 / 0 0 / 0 Balance 2440.50 / 2440.50 1405.90 / 1405.90 Lab / Micro Data 05/11/24 05:30 05/11/24 05:30 Labs: Laboratory Results - last 24 hr 05/10/24 15:50: APTT 63.9 H 05/10/24 22:23: APTT 82.4 H 05/11/24 05:30: WBC 12.0 H, RBC 3.44 L, Hgb 10.2 L, Hct 31.0 L, MCV 90.1, MCH 29.7, MCHC 32.9, RDW Std Deviation 44.0 H, RDW Coeff of Kathy 13.3, Plt Count 276, MPV 10.4, Immature Gran % (Auto) 0.800, Neut % (Auto) 80.4 H, Lymph % (Auto) 12.6 L, [place] % (Auto) 5.4, Eos % (Auto) 0.3, Baso % (Auto) 0.5, Absolute Neuts (auto) 9.6 H, Absolute Lymphs (auto) 1.50, Nucleated RBC % 0, APTT 49.0 H, S odium 132 L, Potassium 3.6, Chloride 104, Carbon Dioxide 22.0, Anion Gap 6, BUN 20 H, Creatinine 0.77, Estim Creat Clear Calc 41.97, Est GFR (MDRD) Af Amer 91, Est GFR (MDRD) Non-Af 75, BUN/Creatinine Ratio 25.9 H, Glucose 162 H, Calcium 7.9 L 05/11/24 06:14: POC Glucose 155 H Radiography Diagnostic Testing: Radiology Impression Echocardiogram 05/10/24 02:38 Interpretation Summary The left ventricular ejection fraction is 30 %. Normal LV size. Moderately severe global left ventricular systolic dysfunction. Above consistent with takutsobo CMP Contrast injection was performed. Ordering Physician: Joe Jefferson Referring Physician: Valencia Mitchell Performed By: Valencia Perez, VY, RVT Physical Exam Const alert, oriented x3, no apparent distress and well nourished General Appearance: cooperative and well developed HEENT normocephalic, head/scalp atraumatic and moist oral mucous membranes Eyes PERRL and EOMs intact bilaterally Neck no lymphadenopathy and supple Lymph Lymphatic: no lymphadenopathy noted and no lymphedema noted Resp normal respiratory effort, normal air movement and clear to auscultation bilaterally Cardio regular rate, regular rhythm, S1 normal heart sound and S2 normal heart sound GI normal to inspection, nondistended, normoactive bowel sounds, soft to palpation, non-tender and non-distended Extremity Extremity Narrative: has an eschar over the outer aspect of the right great toe, with right great toe also swollen and erythematous. General Extremity: no tenderness to palpation of joints or extremities Skin Skin Narrative: as under extremities. Neuro CN's II-XII intact bilaterally, no focal motor deficits and no sensory deficits noted Motor Exam: strength 5/5 throughout and general weakness Psych thought process normal, cooperative and affect normal Appearance: appropriate Assessment & Plan Assessment/Plan (1) Acute UTI: (2) Diabetic foot infection: (3) Non-ST elevation [place] (NSTEMI): PLAN: Plan #nonstemi * Initial troponin was 1600 and trended up to over 1999. * 2D echo ordered showed EF of 30% with moderately severe left ventricular systolic dysfunction and hypokinesia of the apex and mid anteroseptal region, consistent with Takotsubo cardiomyopathy. * cardiology on board * EKG did show t wave inversions. Per cardiology, this is likely due to her right bundle branch block * on aspirin, high intensity statin and heparin drip * for cardiac cath today * #UTI: * Urinalysis shows 2+ bacteria. * Urine cultures pending. * Currently on IV vancomycin and Zosyn. * Zosyn should cover the UTI. #Diabetic foot ulcer * podiatry consulted. MRI of the foot showed no evidence of acute osteomyelitis * on IV vancomycin and zosyn * wound cultures ordered * for surgery tomorrow #Hyperlipidemia: on high intensity statin #CAD s/p stent * on aspirin and plavix as well as high intensity satin #Type 2 diabetes mellitus * on ISS. Accuchecks ACHS. * metformin on hold. * A1C is pending DVT prophylaxis: heparin drip Disposition: transfer to PCU Charges/Coding Visit Charges Inpatient E&M: 29009 Subs Hosp L2
[2024-05-11 12:33] LABS: Bedside Glucose 122 mg/dL (74-106)
--- NOTE | 2024-05-11 12:35 | PN.CARD_ITS ---
Subjective Subjective Patient seen and evaluated. Underwent cardiac catheterization this morning Objective Data Vital Signs: Vital Signs Temp Pulse Resp BP Pulse Ox O2 Del Method O2 Flow Rate 97.8 F 74 21 H 128/77 H 99 Nasal Cannula 2 05/11/24 12:06 05/11/24 12:06 05/11/24 12:06 05/11/24 12:06 05/11/24 12:06 05/11/24 12:08 05/11/24 12:08 Oxygen Flow Rate (L/min) 2 Oxygen Delivery Method Nasal Cannula Weight: 150 lb 5.684 oz Body Mass Index (BMI) 25.8 Intake & Output: Intake and Output for Last 24 Hours 05/09/24 05/10/24 05/11/24 23:59 23:59 23:59 Intake Total 2440.50 / 2440.50 1405.90 / 1405.90 Output Total 0 / 0 0 / 0 Balance 2440.50 / 2440.50 1405.90 / 1405.90 Lab / Micro Data 05/11/24 05:30 05/11/24 05:30 Labs: Laboratory Results - last 24 hr 05/10/24 15:50: APTT 63.9 H 05/10/24 22:23: APTT 82.4 H 05/11/24 05:30: WBC 12.0 H, RBC 3.44 L, Hgb 10.2 L, Hct 31.0 L, MCV 90.1, MCH 29.7, MCHC 32.9, RDW Std Deviation 44.0 H, RDW Coeff of Kathy 13.3, Plt Count 276, MPV 10.4, Immature Gran % (Auto) 0.800, Neut % (Auto) 80.4 H, Lymph % (Auto) 12.6 L, [place] % (Auto) 5.4, Eos % (Auto) 0.3, Baso % (Auto) 0.5, Absolute Neuts (auto) 9.6 H, Absolute Lymphs (auto) 1.50, Nucleated RBC % 0, APTT 49.0 H, S odium 132 L, Potassium 3.6, Chloride 104, Carbon Dioxide 22.0, Anion Gap 6, BUN 20 H, Creatinine 0.77, Estim Creat Clear Calc 41.97, Est GFR (MDRD) Af Amer 91, Est GFR (MDRD) Non-Af 75, BUN/Creatinine Ratio 25.9 H, Glucose 162 H, Calcium 7.9 L 05/11/24 06:14: POC Glucose 155 H 05/11/24 12:11: POC Glucose 122 H Micro: Microbiology 05/10/24 01:36 Urine Catheter - Catheter Urine Culture - Preliminary Culture exhibits no growth. Cardiology Labs/Tests 05/10/24 15:50: APTT 63.9 H 05/10/24 22:23: APTT 82.4 H 05/11/24 05:30: WBC 12.0 H, RBC 3.44 L, Hgb 10.2 L, Hct 31.0 L, MCV 90.1, MCH 29.7, MCHC 32.9, Plt Count 276, MPV 10.4, Immature Gran % (Auto) 0.800, Neut % (Auto) 80.4 H, Lymph % (Auto) 12.6 L, [place] % (Auto) 5.4, Eos % (Auto) 0.3, Baso % (Auto) 0.5, Absolute Neuts (auto) 9.6 H, Nucleated RBC % 0, APTT 49.0 H, S odium 132 L, Potassium 3.6, Chloride 104, Carbon Dioxide 22.0, Anion Gap 6, BUN 20 H, Creatinine 0.77, Est GFR (MDRD) Af Amer 91, Est GFR (MDRD) Non-Af 75, B UN/Creatinine Ratio 25.9 H, Glucose 162 H, Calcium 7.9 L Rhythm: EKG: ECHO: Stress Test: Cardiac Cath: PCI: CT Surgery: Holter monitor: EPS: PPM: CXR: Chest CT Scan: Radiography Diagnostic Testing: Radiology Impression Echocardiogram 05/10/24 02:38 Interpretation Summary The left ventricular ejection fraction is 30 %. Normal LV size. Moderately severe global left ventricular systolic dysfunction. Above consistent with takutsobo CMP Contrast injection was performed. Ordering Physician: Joe Jefferson Referring Physician: Valencia Mitchell Performed By: Valencia Perez, RDCS, RVT Physical Exam Const alert, oriented x3 and no apparent distress General Appearance: cooperative HEENT hearing grossly normal bilaterally Head and Scalp: atraumatic Eyes EOMs intact bilaterally Neck General: normal visual inspection Chest inspection of chest normal and palpation of chest normal Resp normal respiratory effort Auscultation: clear to auscultation bilaterally Cardio regular rate, regular rhythm, S1 normal heart sound and S2 normal heart sound Jugular Venous Distention: JVD GI normal to inspection, nondistended, normoactive bowel sounds Extremity normal capillary refill and no pedal edema Peripheral Pulses: Yes pulses 2+ throughout and femoral pulses present Skin no rashes or lesions noted Neuro oriented x3 and CN's II-XII intact bilaterally Psych Appearance: grossly normal and appropriate Assessment & Plan Assessment/Plan (1) Non-ST elevation [place] (NSTEMI): PLAN: She presents with a non-ST elevation myocardial infarction. Cardiac catheterization performed this morning demonstrated the following: Normal left main coronary tree. Left anterior descending artery previously stented with in-stent stenosis of approximately 60 to 70% stenosis and moderately severe distal disease. First diagonal vessel with a long 90% proximal stenosis and a mid 70% stenosis. Left circumflex artery which is dominant with mild luminal irregularities. Left to left and [id number] collaterals noted. Nondominant right coronary artery which is totally occluded. Left ventricular systolic dysfunction with anterior wall severe hypokinesis and apical hypokinesis estimated ejection fraction of 30%. Based on the above angiographic findings the patient will be considered for PCI of the diagonal vessel and of the LAD. She does not appear to be the best surgical candidate at this time and thus that would be deferred. However if she presents with chest discomfort then we may need to consider bypass surgery to the LAD as well as the diagonal vessel. (2) Presence of stent in coronary artery: PLAN: She does have a previous stents placed as noted above. (3) Essential hypertension: PLAN: She will continue with her current blood pressure medications. (4) LV dysfunction: PLAN: She does have left ventricular systolic dysfunction due to coronary artery disease. My recommendation at this time will be to optimize her medical therapy with guideline directed medical therapy. Beta-blockers will be instituted RAY inhibitors as appropriate and eventually switching to Entresto.
[2024-05-11] MEDS: 0.9% Saline Lock 10 ML Syringe IV (13:08)
[2024-05-11] MEDS: Multivitamins,Therapeutic Tablet 1 TABLET PO (13:09)
--- NOTE | 2024-05-11 13:15 | CL.I_ITS ---
Patient Name: GENTRY COBB Study Date: 05/11/2024 Performing: Avila Joel MD Ht: 64 inches 162.56 cm : 1935 Wt: 150.6 lbs 68.2 kg Age: 88 Gender: female BSA: 1.73 PROCEDURE(S) PERFORMED IC01-([id number])PTCA, SINGLE CORONARY ARTERY CLINICAL PROFILE AND CO-MORBIDITIES Indications: ACS <= 24 hrs Heart Failure: None CONCLUSIONS Successful PTCA alone of proximal and ostial diagonal 1 RECOMMENDATIONS DESCRIPTION OF PROCEDURE The patient arrived to the procedure lab. The risks and benefits of the procedure as well as a full description of our services here and current unavailability of surgical backup were fully explained to the patient and/or their significant other prior to the catheterization. The Timeout was completed, verifying the correct patient and procedure. The patient's procedural site was prepped and draped in the usual fashion. Local anesthetic was given subcutaneously to right radial region with Lidocaine 2%. Local anesthetic was given subcutaneously to left groin region with Lidocaine 2% Using a modified Seldinger technique,arterial access was obtained via the left femoral artery, a 5Fr sheath was inserted. Left Coronary Artery selective angiography was performed in multiple views using a 5 Fr. JL4 catheter. Right Coronary Artery selective angiography was then performed in multiple views using a 5 Fr. 3DRC (Randolph) catheter. Left Ventriculography was performed in FOUNTAIN projection using a 5 Fr. Pigtail catheter. LV to AO pullback pressures were then recorded.The images were reviewed and options discussed. A decision was then made to proceed with an Intervention, IVUS or other adjunct procedure. Arterial sheath was exchanged for a 6 Fr Sheath. EBU 3.5 Guide catheter was inserted and engaged into the LCA. BMW Guide wire was advanced to the 1st Diagonal. Emerge 1.50x15 Balloon catheter was inserted. PTCA balloon inflated at 10 atms for 14 secs. PTCA balloon inflated at 10 atms for 7 secs. PTCA balloon inflated at 10 atms for 7 secs. PTCA balloon inflated at 10 atms for 9 secs. PTCA balloon inflated at 12 atms for 15 secs. PTCA balloon inflated at 12 atms for 11 secs. Angiogram performed post balloon dilatation. The arterial sheath was pulled and manual compression applied until hemostasis is achieved. INTERVENTION INFORMATION LESION SITE: 1st Diagonal (Ostial) Lesion Complexity: High/C, chronic total occlusion: No, lesion at bifurcation: Yes, thrombus present: No, lesion length: 20 mm, culprit lesion: Yes, Previously treated lesion: No, Previously treated lesion: No Pre Stenosis: 90 % Pre intervention JUAN LUIS flow: 3 PROCEDURE: Balloon Angioplasty Post Stenosis: 60 % Post intervention JUAN LUIS flow: 3 Lesion Devices: PeerMetronic 6 Fr EBU3.5 100cm Guide Catheter Barrett .014 190cm BMW Reubens Straight Phil Sci EMERGE MR 1.50x15 BALLOON COMPLICATIONS No Complications PROCEDURE MEDICATIONS Versed 0.5 mg IV Fentanyl 25 mcg IV Versed 0.5 mg IV Fentanyl 25 mcg IV Versed 1 mg IV Oxygen: 2 L/min via nasal cannula Oxygen: 3 L/min via nasal cannula Baby Aspirin (81mg) 1 Tabs PO @ 05/11/2024 10:04:05 Heparin 2000 unit(s) IV 05/11/2024 11:16:12 SUMMARY OF HEMODYNAMIC DATA Time AIR REST ECG 10:01:22 AO 107/42 (68) SA 10:39:48 LV 128/6, 21 10:48:39 LV 127/8, 17 10:48:47 LV 122/12, 24 10:49:48 LV 122/12, 22 10:49:48 LVp 120/13, 29 10:49:54 AOp 122/40 (72) 10:50:01 Signed By Avila Joel MD On 05/11/2024 13:13:59 Avila Joel MD
[2024-05-11 13:21] LABS: Hemoglobin A1c 7.2 % (3.8-5.6)
[2024-05-11 14:04] LABS: ACT Activated Clotting Time 153 sec (74-137)
--- NOTE | 2024-05-11 16:15 | NURSING ---
Pt up and ambulated post bedrest, site soft with no hematoma/bleeding noted.
[2024-05-11 16:54] LABS: Bedside Glucose 187 mg/dL (74-106)
[2024-05-11] MEDS: Insulin Lispro 100 UNIT/ML INSULN.PEN SC (17:24)
[2024-05-11 22:14] LABS: Bedside Glucose 174 mg/dL (74-106)
[2024-05-12] VITALS (21 sets, daily range): BP systolic 111–142; BP diastolic 48–63; PULSE 55–72; RESP 16–18; TEMP 36.1–36.8; O2SAT 92–100; BMI 25.8; BMI 27.8
--- NOTE | 2024-05-12 | BON_PTH ---
PATIENT: GENTRY COBB LOC: [facility] U#:[id number] AGE/SX: 88/F ROOM: [facility] RE05/10/[address]: Dr. Sarbjit Moreno DO : 1935 BED: 1 DIS: 05/16/2024 SPEC #: [id number] RECD: 05/12/24 16:34 STATUS: MARY RENubia #: [id number] ROHINI: 05/12/24 00:[address]: Danielito Art DEPT: SURGICAL PATHOLOGY RECD BY: James Quezada ENTERED: 05/13/24 11:03 SP TYPE: Bone OTHR DR: MD Dr. Keanu Archuleta MD Dr. Michael Marshall, DPM MD Dr. 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 Negative for acute osteomyelitis. Adjacent soft tissue with acute inflammation and abscess formation. SANDY 05/19/2024 MICROSCOPIC DESCRIPTION Slides are reviewed. GROSS DESCRIPTION Received in fixative is one container labeled with the patient's name and designated Proximal phalanx, right hallux. The specimen consists of multiple pieces of bone measuring in aggregate 2.0 x 2.5 x 0.7cm. The entire specimen is submitted in two cassettes after decalcification. 05/13/2024 TC:2 CPT:77336,56557
[2024-05-12 00:19] LABS: Bedside Glucose 156 mg/dL (74-106)
[2024-05-12 02:13] LABS: Absolute Lymphocyte Count 1.86 X10^3/uL (0.83-4.51); Absolute Neutrophil Count 5.8 X10^3/uL (2.0-7.7); Basophil# 0.03 X10^3/uL; Basophil% 0.3 % (0-1); Eosinophils% 1.2 % (0-5); Hematocrit 27.9 % (37-47); Hemoglobin 9.3 g/dL (12.0-15.0); Lymphocyte # 1.86 X10^3/ul (0.83-4.51); Lymphocyte % 21.6 % (19-41); Mean Corp Hgb Conc 33.3 g/dL (32-36); Mean Corpuscular Hgb 29.8 pg (27.0-32.0); Mean Corpuscular Volume 89.4 fL (81-99); Mean Platelet Vol. 9.8 fl (6.2-12.0); Monocyte# 0.75 X10^3/uL; Monocyte% 8.7 % (0-10); NRBC Flagged by Analyzer 0 % (0-5); Neutrophil # 5.83 X10^3/uL (2.7-7.7); Neutrophil % 67.6 % (47-70); Platelet Count 249 K/mm3 (150-450); RBC Distribution Width CV 13.5 % (11.6-14.6); Red Blood Count 3.12 M/mm3 (4.2-5.4); White Blood Count 8.6 K/mm3 (4.4-11.0)
[2024-05-12 02:48] LABS: Vancomycin, Trough Level 8.7 ug/mL (5.0-15.0)
[2024-05-12 02:50] LABS: ALB/GLOB Ratio 0.6 RATIO (0.9-2.4); AST(SGOT) 52 U/L (15-37); Alanine Aminotransfer ALT/SGPT 25 U/L (13-56); Albumin, Serum 2.1 g/dL (3.2-5.0); Alkaline Phosphatase 35 U/L (45-117); Anion Gap 6 (5-15); BUN 27 mg/dL (7-18); BUN/Creat Ratio 30.2 RATIO (10-20); Calcium,Total 8.1 mg/dL (8.5-10.1); Chloride 102 mmol/L (98-107); EST Glomerular Filtration Rate 63 mL/min (>60); Est Glom Filt Rate - Afr Amer 76 mL/min (>60); Estimated Creatinine Clearance 40.99 ml/min; Globulin 3.5 g/dL (2.2-4.2); Glucose 155 mg/dL (74-106); Potassium 3.4 mmol/L (3.5-5.1); Protein, Total 5.6 g/dL (6.4-8.2); Sodium Level 131 mmol/L (136-145)
[2024-05-12] MEDS: Vancomycin IV 1,000 MG/200 ML BAG 200 MG IV (03:05)
--- NOTE | 2024-05-12 03:09 | PCM.RX.CS ---
Consult Antibiotic Management Pharmacy has been consulted to manage selected antibiotic: Vancomycin Type of Intervention Type of Consult: Follow-up Labs Labs: Sodium 131 mmol/L (136-145) L 05/12/24 02:03 Potassium 3.4 mmol/L (3.5-5.1) L 05/12/24 02:03 Chloride 102 mmol/L (98-107) 05/12/24 02:03 Carbon Dioxide 23.0 mmol/L (21.0-32.0) 05/12/24 02:03 Anion Gap 6 (5-15) 05/12/24 02:03 BUN 27 mg/dL (7-18) H 05/12/24 02:03 Creatinine 0.90 mg/dL (0.55-1.02) 05/12/24 02:03 Est GFR (MDRD) Af Amer 76 mL/min (>60) 05/12/24 02:03 Est GFR (MDRD) Non-Af 63 mL/min (>60) 05/12/24 02:03 BUN/Creatinine Ratio 30.2 RATIO (10-20) H 05/12/24 02:03 Glucose 155 mg/dL (74-106) H 05/12/24 02:03 Vancomycin Trough 8.7 ug/mL (5.0-15.0) 05/12/24 02:03 Microbiology Microbiology: Microbiology 05/11/24 02:05 Wound Abcess - Toe Gram Stain - Final 05/10/24 01:36 Urine Catheter - Catheter Urine Culture - Preliminary Culture exhibits no growth. Goal Trough Goal Trough: 15-20 mcg/mL Pharmacy Plan for Drug Dosing Pharmacy Plan for Drug Dosing: Pharmacy Service will continue to monitor and adjust dosing as required. TROUGH 8.7 @ 24 HOURS. INCREASE TO 1GM Q24H AND FOLLOW UP TROUGH PRIOR TO 3RD DOSE Follow-Up Labs Follow-Up Labs: Trough: Vancomycin Date/Time Labs Ordered Labs to be done on [date and time ordered]: 05/14 @ 0330
[2024-05-12] MEDS: Piperacil/Tazobactam 3.375 GM in 0.9% Normal Saline (50mL MB+) 50 ML IV ×3 (06:23→20:55)
[2024-05-12] MEDS: Metoprolol Tartrate 25 MG Tablet PO ×3 (06:33→20:54)
[2024-05-12] MEDS: amLODIPine 10 MG Tablet PO (06:33)
[2024-05-12] MEDS: Lisinopril 20 MG Tablet PO ×2 (06:33→20:54)
--- NOTE | 2024-05-12 06:51 | CRPHASE1_ITS ---
Patient Communication Patient Information Former Patient:: Phase I PHII Cardiac Rehab Discussed with Patient:: Yes Guide to Cardiac Rehab Given to Patient:: Yes Cardiac Rehab Facility Choice List Given to Patient:: Yes Communication to Cardiac Rehab Tar Roofer:: [facility] Cardiac Rehabilitation Info Program Information Cardiac Rehabilitation Program Information: Cardiac Rehab The cardiac rehab team at [facility] consists of highly skilled exercise physiologists, nurses, respiratory therapists and physicians working together with you. Our purpose is to help you have a full recovery and achieve the goals you set for yourself. Over the years many of our patients have returned to activities they assumed they would never do again! We can help restore your confidence and motivation to make lifestyle changes that can have a significant impact on your health and quality of life! We can help answer questions and concerns you may have about exercise, lifestyle, medications, diet, stress and anxiety which are common following a hospitalization. WE monitor ECG and vital signs during exercise and discuss your progress with you and report to your physician(s). Cardiac Rehab is proven to help reduce readmissions, improve functional capacity and lower recurrence of problems with your heart. Our Cardiac Rehab program is Certified by the [place] [employer] Pulmonary [employer] (AACVPR) and Accredited by the [place] [employer] through our [facility]. You can contact us at . We invite you to call us with your questions or to get started in our program. If you have other questions or concerns be sure to ask your physician/provider during your follow-up visit. WE look forward to seeing you!
--- NOTE | 2024-05-12 06:51 | CRPH1.INSTRU ---
General Education Discussed with Patient CAD and cardiac anatomy and function:: Patient communicates acknowledgment Explanation of diagnoses and procedures:: Patient communicates acknowledgment Sign/Symptoms of [place]:: Patient communicates acknowledgment Antiplatelet therapy: Patient communicates acknowledgment Proper use of NTG-SL: Patient communicates acknowledgment Emergency procedures and activation of EMS: Patient communicates acknowledgment Compliance of all prescribed medications: Patient communicates acknowledgment Smoking Risk Factors Patient Nicotine/Smoking Risk Factors Are:: Cigarettes Recommendations Recommendations Include:: Previous smoker; encourage continued cessation Response Code Nicotine/Smoking Response Code:: Patient communicates acknowledgment Dyslipidemia Recommendations Recommendations Include:: Lipid profile not available Response Code Dyslipidemia Response Code:: Patient communicates acknowledgment Overweight/Obesity Risk Factors Patient Overweight/Obesity Risk Factors Are:: BMI Normal [24-29 & > 65 years old] Response Code Overweight/Obesity:: Patient communicates acknowledgment Hypertension Recommendations Recommendations Include:: BP <130/80 if diabetic Response Code Hypertension:: Patient communicates acknowledgment Heart Disease Risk Factors Patient Heart Disease Risk Factors Are:: Previous cardiac event Recommendations Recommendations Include:: Educated family members of their risk Response Code Heart Disease Response Code:: Patient communicates acknowledgment Diabetes Recommendations Recommendations Include:: Maintain fasting blood sugars 70-110 md/dL, Maintain HgbA1c of 6% or less and Diabetic dietary guidelines Response Code Diabetes:: Patient communicates acknowledgment Metabolic Syndrome Recommendations Recommendations Include:: Does not meet criteria Sedentary Recommendations Recommendations Include:: Monitored Outpatient Cardiac Rehab Response Code Sedentary Response Code:: Patient communicates acknowledgment Stress Recommendations Recommendations Include:: Identification of stressors, and assessment of coping skills and Stress management techniques Response Code Stress Response Code:: Patient communicates acknowledgment
[2024-05-12 06:57] LABS: Bedside Glucose 152 mg/dL (74-106)
[2024-05-12] MEDS: Multivitamins,Therapeutic Tablet 1 TABLET PO (08:06)
[2024-05-12] MEDS: Potassium Chloride Oral Tablet 20 MEQ 40 MEQ PO (08:06)
--- NOTE | 2024-05-12 08:16 | PN.CARD_ITS ---
Subjective Subjective Patient seen and evaluated. Appears to be doing well. Objective Data Vital Signs: Vital Signs Temp Pulse Resp BP Pulse Ox O2 Del Method O2 Flow Rate 98.3 F 62 16 131/60 H 92 Nasal Cannula 3 05/12/24 07:30 05/12/24 07:30 05/12/24 07:30 05/12/24 07:30 05/12/24 07:32 05/12/24 07:32 05/12/24 07:32 Oxygen Flow Rate (L/min) 3 Oxygen Delivery Method Nasal Cannula Weight: 161 lb 13.109 oz Body Mass Index (BMI) 27.8 Intake & Output: Intake and Output for Last 24 Hours 05/10/24 05/11/24 05/12/24 23:59 23:59 23:59 Intake Total 2440.50 / 2440.50 1695.90 / 1695.90 250 / 250 Output Total 0 / 0 375 / 375 200 / 200 Balance 2440.50 / 2440.50 1320.90 / 1320.90 50 / 50 Lab / Micro Data 05/12/24 02:03 05/12/24 02:03 Labs: Laboratory Results - last 24 hr 05/11/24 05:30: Hemoglobin A1c 7.2 H 05/11/24 11:36: Activated Clotting Time 153 H 05/11/24 12:11: POC Glucose 122 H 05/11/24 16:33: POC Glucose 187 H 05/11/24 21:46: POC Glucose 174 H 05/11/24 23:52: POC Glucose 156 H 05/12/24 02:03: WBC 8.6, RBC 3.12 L, Hgb 9.3 L, Hct 27.9 L, MCV 89.4, MCH 29.8, MCHC 33.3, RDW Std Deviation 44.0 H, RDW Coeff of Kathy 13.5, Plt Count 249, MPV 9.8, Immature Gran % (Auto) 0.600, Neut % (Auto) 67.6, Lymph % (Auto) 21.6, [place] % (Auto) 8.7, Eos % (Auto) 1.2, Baso % (Auto) 0.3, Absolute Neuts (auto) 5.8, Absolute Lymphs (auto) 1.86, Nucleated RBC % 0, Sodium 131 L, Potassium 3.4 L, Chloride 102, Carbon Dioxide 23.0, Anion Gap 6, BUN 27 H, Creatinine 0.90, Estim Creat Clear Calc 40.99, Est GFR (MDRD) Af Amer 76, Est GFR (MDRD) Non-Af 63, B UN/Creatinine Ratio 30.2 H, Glucose 155 H, Calcium 8.1 L, Total Bilirubin 0.40, AST 52 H, ALT 25, Alkaline Phosphatase 35 L, Total Protein 5.6 L, Albumin 2.1 L, Globulin 3.5, Albumin/Globulin Ratio 0.6 L, Vancomycin Trough 8.7 05/12/24 06:34: POC Glucose 152 H Micro: Microbiology 05/10/24 00:10 Blood Culture (Wb) - Anticubital Left Blood Culture - Preliminary No growth in 48 hours. 05/10/24 00:10 Blood Culture (Wb) - Right Forearm Blood Culture - Preliminary No growth in 48 hours. 05/11/24 02:05 Wound Abcess - Toe Gram Stain - Final 05/10/24 01:36 Urine Catheter - Catheter Urine Culture - Preliminary Culture exhibits no growth. Cardiology Labs/Tests 05/11/24 05:30: Hemoglobin A1c 7.2 H 05/12/24 02:03: WBC 8.6, RBC 3.12 L, Hgb 9.3 L, Hct 27.9 L, MCV 89.4, MCH 29.8, MCHC 33.3, Plt Count 249, MPV 9.8, Immature Gran % (Auto) 0.600, Neut % (Auto) 67.6, Lymph % (Auto) 21.6, [place] % (Auto) 8.7, Eos % (Auto) 1.2, Baso % (Auto) 0.3, Absolute Neuts (auto) 5.8, Nucleated RBC % 0, Sodium 131 L, Potassium 3.4 L , Chloride 102, Carbon Dioxide 23.0, Anion Gap 6, BUN 27 H, Creatinine 0.90, Est GFR (MDRD) Af Amer 76, Est GFR (MDRD) Non-Af 63, BUN/Creatinine Ratio 30.2 H, G lucose 155 H, Calcium 8.1 L, Total Bilirubin 0.40 Rhythm: EKG: ECHO: Stress Test: Cardiac Cath: PCI: CT Surgery: Holter monitor: EPS: PPM: CXR: Chest CT Scan: Physical Exam Const alert, oriented x3 and no apparent distress General Appearance: cooperative HEENT hearing grossly normal bilaterally Head and Scalp: atraumatic Eyes EOMs intact bilaterally Neck General: normal visual inspection Chest inspection of chest normal and palpation of chest normal Resp normal respiratory effort Auscultation: clear to auscultation bilaterally Cardio regular rate, regular rhythm, S1 normal heart sound and S2 normal heart sound Jugular Venous Distention: JVD GI normal to inspection, nondistended, normoactive bowel sounds Extremity normal capillary refill and no pedal edema Peripheral Pulses: Yes pulses 2+ throughout and femoral pulses present Skin no rashes or lesions noted Neuro oriented x3 and CN's II-XII intact bilaterally Psych Appearance: grossly normal and appropriate Assessment & Plan Assessment/Plan (1) Non-ST elevation DE (NSTEMI): PLAN: She presents with a non-ST elevation myocardial infarction. Cardiac catheterization performed this morning demonstrated the following: Normal left main coronary tree. Left anterior descending artery previously stented with in-stent stenosis of approximately 60 to 70% stenosis and moderately severe distal disease. First diagonal vessel with a long 90% proximal stenosis and a mid 70% stenosis. Left circumflex artery which is dominant with mild luminal irregularities. Left to left and [id number] collaterals noted. Nondominant right coronary artery which is totally occluded. Left ventricular systolic dysfunction with anterior wall severe hypokinesis and apical hypokinesis estimated ejection fraction of 30%. Based on the above angiographic findings the patient underwent PCI of the diagonal vessel successfully. There appeared to be the culprit lesion. She will be treated with maximal medical therapy and then seen as an outpatient for follow-up echocardiogram and see how she does clinically. Further recommendations will be made then. (2) Presence of stent in coronary artery: PLAN: She does have a previous stents placed as noted above. (3) Essential hypertension: PLAN: She will continue with her current blood pressure medications. (4) LV dysfunction: PLAN: She does have left ventricular systolic dysfunction due to coronary artery disease. My recommendation at this time will be to optimize her medical therapy with guideline directed medical therapy. Beta-blockers will be instituted RAY inhibitors as appropriate and eventually switching to Entresto.
--- NOTE | 2024-05-12 09:20 | WOUNDNOTE ---
Pt going to surgery later today with Dr Art. will leave dressing in place.
--- NOTE | 2024-05-12 10:00 | EKG12_ITS ---
Test Reason : AM EKG Blood Pressure : */* mmHG Vent. Rate : 88 BPM Atrial Rate : 88 BPM P-R Int : 170 ms QRS Dur : 128 ms QT Int : 394 ms P-R-T Axes : 74 39 85 degrees QTcB Int : 476 ms Sinus rhythm with occasional Premature ventricular complexes Right bundle branch block Septal infarct , age undetermined Abnormal ECG Confirmed by JENN HANNON, ELTON ([id number]), editor magazine DAIANA HUSSEIN ([id number]) on 05/12/2024 5:57:18 AM Referred By: PAPITO Confirmed By: ELTON BARAJAS MD
[2024-05-12] MEDS: Cholecalciferol (VIT D3) 25 MCG TABLET (1,000 UNITS) PO (10:20)
[2024-05-12 10:56] LABS: Bedside Glucose 131 mg/dL (74-106)
--- NOTE | 2024-05-12 10:56 | RAD_ITS ---
INDICATION: ULCER DEBRIDEMENT GREAT TOE EXAMINATION/TECHNIQUE: X-RAY - RIGHT XR Foot for intraoperative views COMPARISON: FINDINGS: Intraoperative images demonstrate partial resection of the proximal phalanx and at the base of the distal phalanx of the first toe . RAD/Foot 2 Views IMPRESSION: Intraoperative images of the first toe. Electronically Signed: Dre Richardson DO at 0:23 EST ,
--- NOTE | 2024-05-12 11:21 | ART_ITS ---
Reason For Study: S/P RLE Angio Procedure A bilateral lower extremity continuous wave Doppler with analog waveform analysis and ankle brachial indexes. Left Segmental Pressures Left brachial= 133mmHg. Left posterior tibial artery = 61mmHg. Left dorsalis pedis artery = 65mmHg. Left digit = 14 mmHg. The left posterior tibial artery waveforms are monophasic. The left dorsalis pedis waveforms are monophasic. Right Segmental Pressures Right brachial= 54mmHg. Right posterior tibial artery = 37mmHg. Right dorsalis pedis artery = 124mmHg. The right posterior tibial artery waveforms are monophasic. The right dorsalis pedis waveforms are monophasic. Indices The right ankle brachial index by the posterior tibial artery is 0.28. The right ankle brachial index by the dorsalis pedis is 0.93. The left ankle brachial index by the posterior tibial artery is 0.46. The left ankle brachial index by the dorsalis pedis is 0.49. The left digital-brachial index is 0.11. VL/Ankle Brachial Index Interpretation Summary Right JENY 0.93, artificially elevated. Doppler/PVR waveforms of the right ankle severely diminished at rest. Left JENY 0.49, severe arterial insufficiency. Doppler/PVR waveforms of the left ankle severely diminished at rest. Ordering Physician: Desi Mcpherson Referring Physician: Valencia Mitchell Performed By: Valencia Perez RDSATHYA/RVT
--- NOTE | 2024-05-12 11:21 | ADUL_ITS ---
Reason For Study: Rt Foot Wound Right Velocities Ext. Iliac Artery, dist = 121.9 cm./sec. Common Femoral Artery, prox = 99.7 cm./sec. Common Femoral Artery, mid = 433.4 cm./sec. Common Femoral Artery, dist = 144.1 cm./sec. Supf Femoral Artery, prox = 185.2 cm./sec. Supf Femoral Artery, mid = 75.7 cm./sec. Supf Femoral Artery, dist. = 55.9 cm./sec. Profunda Femoral Artery = 87.5 cm./sec. Popliteal Artery, mid = 57.0 cm./sec. Post. Tibial Artery, prox = 85.3 cm./sec. Post. Tibial Artery, dist = 44.6 cm./sec. Ant. Tibial Artery, prox = 192.7 cm./sec. Ant. Tibial Artery, mid = 128.0 cm./sec. Ant. Tibial Artery, dist = 46.8 cm./sec. Peroneal Artery, mid = 46.8 cm./sec. Unable to visualize flow at Mid [employer] due to calcific shadowing Unable to visualize flow at Prox and Dist Carlos A due to calcific shadowing. Procedure The exam was diagnostic. Exam performed portable in patient room. /US Art Duplex Unilat Lower Ext Interpretation Summary Right lower extremity arteries with monophasic waveforms throughout. Right common femoral artery patent with >75% stenosis. Right anterior tibial artery patent with 50-75% stenosis proximal. Limited visualization of posterior tibial and peroneal arteries. Ordering Physician: Desi Mcpherson Referring Physician: Valencia Mitchell Performed By: Beka Jeffrey RVT
--- NOTE | 2024-05-12 11:22 | SUR.PREOP ---
terrance ring to pacu
--- NOTE | 2024-05-12 11:30 | PCM.PRE.AN2 ---
ASA Classification* ASA Classification ASA Classification: 3 Assessment & Plan Anesthesia* Anesthesia Assessment Anesthesia Assessment: Discussed sedation and/or anesthesia options, risks, benefits, and alternatives with patient/parents/legal guardian/POA. Questions invited. The patient/parents/legal guardian/POA seems to understand and agrees to proceed with anesthesia plan. Reviewed the physical assessment, medical history, allergy history and patient home medications list prior to surgery/procedure/anesthetic and documented any changes. Performed airway and anesthesia risk assessments. Anesthesia Type Anesthesia Type: MAC (Patient will have sedation with general as a backup.) History Source History Obtained from:: Patient and Chart Anesthesia Focused Assessment* Temperature: 98.3 F Pulse Rate: 62 Blood Pressure: 131/60 Respiratory Rate: 16 Pulse Ox: 92 Oxygen Delivery Method: Room Air Oxygen Flow Rate (L/min): 3 Airway Assessment Mouth opens: >3 cm Mallampati Score: I Teeth Condition: Dentures (Upper denture and lower partials are out. Remainder of teeth are intact.) Neck Range of motion (ROM): Limited ROM Focused Labs Anesthesia Preop lab: CBC WBC 8.6 K/mm3 (4.4-11.0) 05/12/24 02:03 RBC 3.12 M/mm3 (4.2-5.4) L 05/12/24 02:03 Hgb 9.3 g/dL (12.0-15.0) L 05/12/24 02:03 Hct 27.9 % (37-47) L 05/12/24 02:03 Plt Count 249 K/mm3 (150-450) 05/12/24 02:03 CHEMISTRY Potassium 3.4 mmol/L (3.5-5.1) L 05/12/24 02:03 Sodium 131 mmol/L (136-145) L 05/12/24 02:03 Magnesium 1.9 mg/dL (1.6-2.6) 07/08/20 04:35 Phosphorus 3.1 mg/dL (2.5-4.9) 07/08/20 04:35 BUN 27 mg/dL (7-18) H 05/12/24 02:03 Creatinine 0.90 mg/dL (0.55-1.02) 05/12/24 02:03 Glucose 155 mg/dL (74-106) H 05/12/24 02:03 POC Glucose 131 mg/dL (74-106) H 05/12/24 10:19 TSH 3.14 uIU/mL (0.358-3.74) 09/17/23 06:25 COAG PT 15.5 SECONDS (11.7-14.9) H 05/09/24 22:00 Pre-Assessment Diagnosis/Proposed Procedure Planned Operative Procedure(s): Ulcer debridement of great toe right foot Anesthesia History 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 When Was Last Pacemaker Check QUESTION #4 FULL TEXT: You/Your Family Experience fever (hyperthermia) with Anesthesia Last Oral Intake Last Oral intake: Last Oral Intake NPO since 00:00 05/12/24 00:35 Meds taken in AM with sips of water? Meds patient instructed to take am of surgery Any additional information?: Yes Meds taken in AM with sips of water?: Yes PONV PONV - extruder operator helper: PONV - extruder operator helper Female HX of Motion Sickness HX of N/V After Surgery Non-Smoker Duration of Surgery greater than 60 minutes Number of Risk Factors PONV Score Height & Weight Height & Weight: Anesthesia: Height & Weight Height 5 ft 4 in 05/12/24 00:35 Weight: 73.4 kg 05/12/24 04:32 Body Mass Index (BMI) 27.8 05/12/24 04:32 Respiratory Assessment Respiratory Assessment - extruder operator helper: Respiratory Tract Infection Hx - extruder operator helper Hx Respiratory Tract Infection No 05/12/24 00:35 STOP Sleep Apnea STOP Sleep Apnea - extruder operator helper: STOP Sleep Apnea - extruder operator helper Hx Hypertension Yes 05/11/24 16:44 Hx Sleep Apnea No 05/10/24 02:36 CPAP BIPAP Do you snore loudly (louder No 05/10/24 02:36 than talking or can be heard Do you often feel tired/ No 05/10/24 02:36 fatigued/ sleepy during daytime? Has anyone observed you stop No 05/10/24 02:36 breathing during sleep? STOP Results Negative 05/10/24 02:36 QUESTION #5 FULL TEXT : Do you snore loudly (louder than talking or can be heard through closed doors)? 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 Specify any problems Hx of Preganancy in last 3 No 05/10/24 02:36 Months Nurse Filling Out Transfusion [id number] 05/10/24 02:36 & Questions: Date: 05/10/24 05/10/24 02:36 Time: 03:00 05/10/24 02:36 Patient unable to answer at this time (ie. confused, unrespo /Reproduction History /Reproductive History - extruder operator helper: /Reproductive Hx- extruder operator helper Hx Now No 05/12/24 00:35 Gestational Age (in weeks): EDC: Hx Hx Para Hx Section SAB No 05/12/24 00:35 Active Medications Active Medications: Current Medications Generic Name Dose Route Start Last Admin Trade Name Freq PRN Reason Stop Dose Admin Acetaminophen 650 mg 05/10/24 16:20 05/11/24 06:08 Acetaminophen 325 Mg Tablet PO 650 mg Q6H PRN PRN Administration Pain 1-10 or Fever Amlodipine Besylate 10 mg 05/11/24 10:00 05/12/24 06:33 Amlodipine 10 Mg Tablet PO 10 mg DAILY ALEXANDER Administration Protocol Aspirin 81 mg 05/12/24 08:00 05/12/24 07:36 Aspirin E.C. 81 Mg Tablet PO Not Given DAILY@0800 [facility] Atropine Sulfate 0.5 mg 05/11/24 11:49 Atropine Sulfate 1 Mg/10 Ml Syringe IV UD PRN HR <50 bpm Cholecalciferol 25 mcg 05/11/24 10:00 05/12/24 10:20 Cholecalciferol (Vit D3) 25 Mcg Tablet (1,000 Units) PO 25 mcg DAILY ALEXANDER Administration Clopidogrel Bisulfate 75 mg 05/11/24 10:00 05/11/24 06:10 Clopidogrel Bisulfate 75 Mg Tablet PO 75 mg DAILY ALEXANDER Administration Glucagon 1 mg 05/11/24 00:17 Glucagon 1 Mg/Ml Syringe IM X1 PRN Hypoglycemia Protocol Heparin Sodium (Porcine) 0 unit 05/10/24 01:15 Heparin Injection (Vial) 5,000 Unit/Ml Vial IV UD PRN dose adjustment Protocol Vancomycin IV-PHARMACY TO DOSE 500 mls @ 250 mls/hr 05/10/24 02:38 1 each/ Sodium Chloride IV X1 PRN Rx to Dose Protocol Piperacillin Sod/Tazobactam 50 mls @ 12.5 mls/hr 05/10/24 06:00 05/12/24 10:30 Sod 3.375 gm/ Sodium Chloride IV Infused Q8 ALEXANDER Infusion Sodium Chloride 100 mls @ 15 mls/hr 05/10/24 03:36 IV .Q6H40M PRN Saline Flush Sodium Chloride 100 mls @ 15 mls/hr 05/10/24 03:36 IV .Q6H40M PRN Additional IVPB Infusion Dextrose 250 mls @ 0 mls/hr 05/11/24 00:17 Dextrose 10%-Water IV .Q0M PRN HYPOGLYCEMIA Protocol As Directed Vancomycin HCl 1,000 mg in 200 mls @ 200 mls/hr 05/12/24 03:00 05/12/24 04:05 Vancomycin IV Infused Q24H ALEXANDER Infusion Insulin Human Lispro 0 unit 05/11/24 06:00 05/12/24 06:35 Insulin Lispro 100 Unit/Ml Insuln.Pen SC Not Given Q6 ALEXANDER Protocol Lisinopril 20 mg 05/10/24 22:00 05/12/24 06:33 Lisinopril 20 Mg Tablet PO 20 mg BID ALEXANDER Administration Protocol Metoprolol Tartrate 25 mg 05/10/24 22:00 05/12/24 06:33 Metoprolol Tartrate 25 Mg Tablet PO 25 mg TID ALEXANDER Administration Protocol Multivitamins 1 tablet 05/11/24 12:00 05/12/24 08:06 Multivitamins,Therapeutic Tablet PO 1 tablet LUNCH ALEXANDER Administration Nitroglycerin 0.4 mg 05/10/24 15:46 Nitroglycerin (Inpatient Use) 0.4 Mg Tab.Subl SL Q5M PRN CARDIAC/CHEST PAIN Sodium Chloride 10 - 40 ml 05/10/24 03:36 05/11/24 13:08 0.9% Saline Lock 10 Ml Syringe IV 20 ml UD PRN Administration SALINE FLUSH Sodium Chloride 500 ml 05/11/24 11:49 0.9% Normal Saline 500 Ml Iv.Soln. IV BOLUS PRN VASO-VAGAL PROTOCOL Vancomycin Protocol 1 lab 05/14/24 00:30 Vancomycin Trough/Random Due [facility] 05/14/24 04:30 DAILY [facility] Medical History TIA (transient ischemic attack) Stroke/cerebrovascular accident Wears eyeglasses Depression Anxiety Alcohol abuse History of restless legs syndrome Hx of syncope Dietary restriction Difficulty swallowing Hx of heartburn COPD (chronic obstructive pulmonary disease) Hx of shortness of breath Hx of edema Hx of echocardiogram Hx of cardiovascular stress test Carotid stenosis Bone infection of left foot Osteomyelitis of left foot Gangrene of left foot Wears dentures Ambulates with cane Arthritis Easy bruising Prolapsed bladder Former smoker Cardiology follow-up encounter Cellulitis of left thigh Post-op pain Ischaemic rest pain of lower extremity Open wound of left foot Cellulitis of left foot Amputated toe Rectocele Cystocele Type 2 diabetes mellitus Presence of stent in coronary artery (~07/04/11) Essential hypertension RBBB (right bundle branch block) 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 HTN (hypertension) Osteoarthritis Diabetes Hyperlipidemia Carotid stenosis, bilateral BBB (bundle branch block) PAD (peripheral artery disease) Home Medications ?Medication ?Instructions ?Recorded ?Last Taken ?Type aspirin 81 mg chewable tablet 81 mg PO QHS health maintenance 06/07/16 04/28/23 History clopidogrel 75 mg tablet 75 mg PO DAILY platelet inhibitor 06/07/16 04/28/23 History multivitamin 1 tab PO DAILY SUPPLEMENT 04/28/19 04/28/23 History lisinopril 20 mg tablet 20 mg PO BID BP 01/01/21 04/28/23 History metoprolol tartrate 25 mg tablet 25 mg PO TID BP 01/01/21 04/28/23 History metformin 500 mg tablet,extended 500 mg PO BID DM 07/01/21 04/28/23 History release 24 hr cholecalciferol (vitamin D3) 25 25 mcg PO DAILY SUPPLEMENT 09/26/21 04/28/23 History mcg (1,000 unit) tablet (Vitamin D3) nitroglycerin 0.4 mg sublingual 0.4 mg sublingual Q5-15M PRN chest 02/12/23 Unknown Rx tablet pain #25 tabs acetaminophen 500 mg tablet 500 mg PO Q6H PRN pain #20 tabs 04/30/23 Unknown Rx (Tylenol Extra Strength) amlodipine 10 mg tablet 10 mg PO DAILY bp 11/12/23 Unknown History coenzyme Q10 75 mg capsule (Ultra 75 mg PO QDAY suppliment 02/03/24 Unknown History CoQ10) Allergy/AdvReac Type Severity Reaction Status Date / Time pravastatin AdvReac Severe myalgias Verified 02/03/24 10:00 [id number]-QDP-XsT Reductase AdvReac Severe myalgias Verified 02/03/24 10:00 Inhibitor Sulfa (Sulfonamide AdvReac Mild stomach Verified 02/03/24 10:00 Antibiotics) upset atorvastatin AdvReac myalgias Verified 02/03/24 10:00 Family History Father Diabetes Heart disease Brother Diabetes Colon cancer Brother Diabetes Surgical History Hx of toe surgery S/P bladder repair History of colonoscopy History of tonsillectomy Cataract extraction status of right eye Presence of coronary angioplasty implant and graft (~05/11/24) History of hemorrhoidectomy History of left-sided carotid endarterectomy Status post peripheral artery angioplasty History of heart artery stent History of hysterectomy Social History Smoking Status: Current some day smoker tobacco type: cigarettes and cigars how long ago did patient quit smokin + years ago alcohol intake: current alcohol intake frequency: a few times a month Alcohol type: wine substance use type: does not use caffeine: Yes Type: coffee Number of servings: 2 what type of physical activity do you participate in: walking seatbelt use: always do you feel safe at home: Yes Review of Systems (Anesthesia) ROS Narrative System reviewed and no additional complaints, except as documented.
--- NOTE | 2024-05-12 12:00 | EKG12_ITS ---
Test Reason : AM Blood Pressure : */* mmHG Vent. Rate : 69 BPM Atrial Rate : 69 BPM P-R Int : 170 ms QRS Dur : 138 ms QT Int : 448 ms P-R-T Axes : 66 14 58 degrees QTcB Int : 480 ms Normal sinus rhythm Right bundle branch block Septal infarct , age undetermined Abnormal ECG When compared with ECG of 11-May-2024 04:47, MANUAL COMPARISON REQUIRED DATA IS UNCONFIRMED Confirmed by JENN HANNON, ELTON ([id number]), offline editor DAIANA HUSSEIN ([id number]) on 05/12/2024 11:02:19 AM Referred By: Confirmed By: ELTON BARAJAS MD
--- NOTE | 2024-05-12 12:15 | PN_ITS ---
Subjective Subjective Patient was seen prior to surgical intervention this a.m. Reports no changes. Plan still for OR today 12 noon. Objective Data Objective Data Vital Signs: Vital Signs Temp Pulse Resp BP Pulse Ox O2 Del Method O2 Flow Rate 98.3 F 62 16 131/60 H 92 Room Air 3 05/12/24 11:38 05/12/24 11:38 05/12/24 11:38 05/12/24 11:38 05/12/24 11:38 05/12/24 11:44 05/12/24 11:38 Oxygen Flow Rate (L/min) 3 Oxygen Delivery Method Room Air Weight: 73.4 kg Body Mass Index (BMI) 27.8 Intake & Output: Intake and Output for Last 24 Hours 05/10/24 05/11/24 05/12/24 23:59 23:59 23:59 Intake Total 2440.50 / 2440.50 1695.90 / 1695.90 300 / 300 Output Total 0 / 0 375 / 375 200 / 200 Balance 2440.50 / 2440.50 1320.90 / 1320.90 100 / 100 Lab / Micro Data 05/12/24 02:03 05/12/24 02:03 Labs: Laboratory Results - last 24 hr 05/11/24 05:30: Hemoglobin A1c 7.2 H 05/11/24 11:36: Activated Clotting Time 153 H 05/11/24 12:11: POC Glucose 122 H 05/11/24 16:33: POC Glucose 187 H 05/11/24 21:46: POC Glucose 174 H 05/11/24 23:52: POC Glucose 156 H 05/12/24 02:03: WBC 8.6, RBC 3.12 L, Hgb 9.3 L, Hct 27.9 L, MCV 89.4, MCH 29.8, MCHC 33.3, RDW Std Deviation 44.0 H, RDW Coeff of Kathy 13.5, Plt Count 249, MPV 9.8, Immature Gran % (Auto) 0.600, Neut % (Auto) 67.6, Lymph % (Auto) 21.6, [place] % (Auto) 8.7, Eos % (Auto) 1.2, Baso % (Auto) 0.3, Absolute Neuts (auto) 5.8, Absolute Lymphs (auto) 1.86, Nucleated RBC % 0, Sodium 131 L, Potassium 3.4 L, Chloride 102, Carbon Dioxide 23.0, Anion Gap 6, BUN 27 H, Creatinine 0.90, Estim Creat Clear Calc 40.99, Est GFR (MDRD) Af Amer 76, Est GFR (MDRD) Non-Af 63, B UN/Creatinine Ratio 30.2 H, Glucose 155 H, Calcium 8.1 L, Total Bilirubin 0.40, AST 52 H, ALT 25, Alkaline Phosphatase 35 L, Total Protein 5.6 L, Albumin 2.1 L, Globulin 3.5, Albumin/Globulin Ratio 0.6 L, Vancomycin Trough 8.7 05/12/24 06:34: POC Glucose 152 H 05/12/24 10:19: POC Glucose 131 H Micro: Microbiology 05/10/24 01:36 Urine Catheter - Catheter Urine Culture - Final Culture exhibits no growth. 05/10/24 00:10 Blood Culture (Wb) - Anticubital Left Blood Culture - Preliminary No growth in 48 hours. 05/10/24 00:10 Blood Culture (Wb) - Right Forearm Blood Culture - Preliminary No growth in 48 hours. 05/11/24 02:05 Wound Abcess - Toe Gram Stain - Final Physical Exam Const alert, oriented x3 and no apparent distress General Appearance: cooperative HEENT normocephalic Eyes General Eye: normal appearance of both eyes Neck General: normal visual inspection Lymph Lymphatic: no lymphadenopathy noted and no lymphedema noted Resp normal respiratory effort Extremity Extremity Narrative: Right lower extremity: Vascular: DP and PT pulses weakly palpable. CFT less than 5 seconds to the digits. Normal temperature gradient. Hair growth absent to digits/foot. Neurologic: Gross sensation intact. Protective sensation diminished to foot consistent with diabetic peripheral polyneuropathy. 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 Decreased range of motion of the first metatarsophalangeal joint without pain or crepitus. Decreased range of motion of the ankle joint dorsiflexion with the knee extended without pain or crepitus. No pain to palpation about the ulcerative site of the hallux. There is some tenderness to the superficial ulceration site on the lateral forefoot. No pain to palpation of calf. Derm: Varicosities noted to lower extremity and foot. Skin is thin/atrophic. Normal turgor. There is an superficial ulceration to the lateral forefoot near the fifth metatarsal head measuring 0.5 cm x 0.3 cm with fibrogranular layer. No signs of infection. There is a full-thickness ulceration to the right hallux overlying the interphalangeal joint with granular margin and central eschar. There is improvement in localized erythema and peeling skin about the hallux. No purulent drainage, no malodor. No pain to palpation about the hallux. Left Lower Extremity: Vascular: DP and PT pulses weakly palpable. CFT less than 5 seconds to the digits. Normal temperature gradient. Hair growth is absent to digits/foot. Neurologic: Gross sensation intact. Protective sensation is diminished to foot consistent with diabetic peripheral polyneuropathy. Musculoskeletal: Amputation of the fourth and fifth digit noted with well-healed cicatrix. Decreased range of motion of the first metatarsophalangeal joint without pain or crepitus. Decreased range of motion of the ankle joint in dorsiflexion with knee extended without pain or crepitus. Derm: Varicosities noted to the lower extremity and foot. Skin is thin/atrophic. Normal turgor. No open wounds. 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: (2) Type 2 diabetes mellitus with diabetic polyneuropathy: QUALIFIERS: Diabetes mellitus supervisor intermediates insulin use: without senior living use Qualified Code(s): E11.42 - Type 2 diabetes mellitus with diabetic polyneuropathy (3) Type 2 diabetes mellitus with foot ulcer: (4) Diabetic foot infection: (5) Peripheral vascular disease, unspecified: (6) Non-pressure chronic ulcer of other part of right foot with fat layer exposed: PLAN: Plan Patient seen and evaluated No changes are noted Right foot: There is an superficial ulceration to the lateral forefoot near the fifth metatarsal head measuring 0.5 cm x 0.3 cm with fibrogranular layer. No signs of infection. There is a full-thickness ulceration to the right hallux overlying the interphalangeal joint with granular margin and central eschar. There is improvement in localized erythema and peeling skin about the hallux. No purulent drainage, no malodor. No pain to palpation about the hallux. WBC currently 8.3; ESR 24; CRP 92.30; Hgb 10.5; Hct 32.2; Lactic Acid 1.5 Currently on IV Vanco/Zosyn Culture: Swab of Right Hallux, awaiting results Betadine applied to ulcerative site dressed with dry sterile dressing. Radiographs: Xray Right foot negative for Osteomyelitis. MRI of Right foot performed 05/10/24 negative for Osteomeyelitis. LEAS was performed in September 2023: Right lower extremity JENY 0.61 PT and 0.35 DP, TBI 0.30; left JENY 0.47 PT 0.48 DP and TBI 0.22. Medicine following for medical management, they are greatly appreciated. Cardiology following and intervention took place on 05/11/2024. She has been cleared for podiatry intervention 05/12/2024 Vascular surgery consulted for possible intervention following podiatric intervention. Wound nurse following for assistance with dressing change. I discussed with the patient at bedside this a.m. plan for surgical intervention to take place tomorrow 05/12/2024 at 12 noon, once stable following cardiology intervention this afternoon. Discussed with her the need to perform excisional debridement of her ulceration in the OR with application of grafting product, in addition to debridement of bone of the right hallux to decrease pressure at the ulcerative site to prevent recidivism, further infection, and more proximal amputation. Patient is in agreement with the plan and is willing to proceed forward with intervention tomorrow. She will remain n.p.o. after midnight for planned surgical intervention 05/12/2024 at 12 noon. Surgical consent was obtained by nursing team for d ebridement of ulceration right hallux and lateral forefoot with application of advanced wound care product and debridement of bone right hallux. Operative limb was signed. No noted changes from her H&P. Podiatry will continue to follow while in house Danielito Art Jr. D.P.M. [facility] [place] [phone]
[2024-05-12] MEDS: Lidocaine 1% /Epi 1:100 (20ml) 20 ML Vial (13:04)
[2024-05-12] MEDS: Bupivacaine Mpf 0.5% 30 ML VIAL (13:04)
--- NOTE | 2024-05-12 13:37 | PCM.OPRPT ---
Operative Report (Standard) Operative Information Date of Procedure: 05/12/24 Pre-Operative Diagnosis: 1. Non-healing Neuropathic pressure ulceration right hallux 2. Ulceration lateral forefoot of the right foot 3. DM type II with peripheral polyneuropathy 4. PVD Post-Operative Diagnosis: 1. Non-healing Neuropathic pressure ulceration right hallux 2. Ulceration lateral forefoot of the right foot 3. DM type II with peripheral polyneuropathy 4. PVD Surgery/Procedure Performed: 1. Debridement of right hallux ulceration to the level of bone 2. Application advanced wound care product right hallux plantar ulceration 3. Debridement of right lateral forefoot ulceration with application advanced wound care product merchandise team manager: No Type of Anesthesia: Local MAC (13 cc one-to-one mixture 1% lidocaine plain and 0.5% Marcaine plain) RN Documented Start/Stop Times: Operation Date: 05/12/24 12:00 Case Time Into Pre-Op 05/12/24 10:58 Out of Pre-Op 05/12/24 12:14 Anesthesia Start 05/12/24 12:19 Into Room 05/12/24 12:19 Procedure Start 05/12/24 12:39 Procedure End 05/12/24 13:26 Anesthesia End 05/12/24 13:35 Out of Room 05/12/24 13:35 Into Recovery 05/12/24 13:37 Out of Recovery 05/12/24 14:15 Procedure Start Time: 12:39 Procedure Stop Time: 13:26 Select all DRAINS/GRAFTS/IMPLANTS that apply: Graft (250 mg Axiofill) Graft details: Advanced wound care product, Axiofill Estimated Blood Loss: < 1mL Specimen collected: Yes Description of specimen(s) removed: Bone distal phalanx right hallux Description of surgery: HPI/indication: Patient is a 88-year-old female who presented to [facility] on 05/10/2024 after falling in bathroom. Patient did not remember falling and was brought by squad to hospital. In ED she underwent workup demonstrating elevated WBC, elevated CRP, but normal ESR, in addition to elevated troponins with EKG demonstrating T wave inversion with suspected NSTEMI. She was empirically started on IV Vanco/Zosyn which did improve localized cellulitis of the right foot and did decrease white count. Patient did undergo workup with cardiology and did have heart cath on 05/11/2024. She was cleared to undergo surgical intervention by podiatry team on 05/12/2024. She also did undergo MRI on 05/10/2024 demonstrating no evidence of osteomyelitis. I discussed with the patient the need to perform debridement of the ulceration with application of advanced wound care product in addition to debridement of bone to prevent recidivism of the ulcerative site. Patient was in agreement with this. Discussed the risks and complications of the procedure. Discussed benefits of the procedure in detail. She understands risks and complications include but are not limited to the following: Pain, continued pain, complex regional pain syndrome, infection, dehiscence, neuritis/numbness, bleeding, blood clot, scarring, poor cosmetic result, deviated toe, floating toe, need for further surgery/intervention, necrosis of digit secondary to PVD, risk of amputation, stroke, heart attack, addiction to pain medication, loss of function, loss of limb, loss of life. Patient voiced understanding and wishes to proceed forward with the debridement of her ulceration and removal of the portion of bone to offload the site. She was seen again prior to procedure, no changes noted to H&P, and operative limb was signed prior to entering the OR. She was scheduled to undergo debridement of ulceration to the level of bone right hallux, debridement of ulceration lateral right foot, and application of advanced wound care product at [facility] on 05/12/2024. Surgical procedure: Under mild sedation patient was brought into the operating placed on the table in supine position. Following induction of IV anesthetic a local anesthetic block was then performed about the distal first metatarsal head of the right foot and about the ulcerative site of the lateral forefoot consisting of 13 cc one-to-one mixture of 1% lidocaine plain and 0.5% Marcaine plain. Next, the foot was then scrubbed, prepped, and draped in the usual aseptic manner. At this time fluoroscopy was utilized to identify the exposed portions of bone at the distal phalanx base and head of the proximal phalanx of the right hand was and confirmed incision placement for resection of bone. Ulceration site was measured predebridement to the plantar medial right hallux measuring 1.4 cm x 1.4 cm x 1.0 cm. Ulceration measured right lateral forefoot measuring 0.9 cm x 0.6 cm x 0.1 cm. No tourniquet utilized due to severe arterial disease. Next, sharp excisional debridement of the right hallux ulcerative site was performed utilizing a #15 blade. 100% of the ulceration was debrided down to the level of bone including portions of bone exposed postdebridement. Debridement consisted of removal of eschar, fibrous, devitalized subcutaneous, biofilm, slough, and bone of the distal phalanx and head of the proximal phalanx. Postdebridement measurement 1.5 cm x 1.5 cm x 1.0 cm. No bleeding occurred during debridement secondary to severe arterial disease. Next, in addition to resect more portions of the head of the proximal phalanx and distal phalanx of the right hallux a separate incision was made on the dorsal aspect of the right hallux and deepened to bone utilizing a #15 blade. The extensor tendon was visualized and retracted laterally and protected throughout the duration of the case. The periosteum was visualized and transected utilizing a #15 blade exposing the base of the distal phalanx and head of the proximal phalanx at the operative field. Portions of bone were then resected utilizing sagittal saw under guidance of fluoroscopy completing the debridement of bone and offloading of the ulcerative site to optimize healing. All portions of debrided bone were removed and sent to pathology for analysis. Site was then flushed with copious amounts of normal sterile saline. Rough portions of bone remaining were smoothed utilizing rongeur and bone rasp to ensure no rough edges/prominent pressure points. Site was again flushed with copious amounts of normal sterile saline. Dorsal incision site was then closed in deep layer utilizing 4-0 Vicryl, subcutaneous tissue closed utilizing 4-0 Monocryl, and skin reapproximated utilizing 3-0 Prolene in simple interrupted fashion. Plantar medial ulceration site then underwent application of advanced wound care product, Axiofill 100mg. Final fluoroscopic imaging was obtained of the right hallux and reviewed prior to leaving OR. At this time lateral forefoot ulceration underwent sharp excisional debridement utilizing a #15 blade and dermal curette. 100% of the ulceration was debrided down to the level of the subcutaneous tissue. No bleeding occurred during debridement secondary to severe arterial disease. Debridement consisted of removal of fibrous, devitalized subcutaneous, biofilm, slough. Following debridement ulceration site underwent application of advanced wound care product, Axiofill 50mg. Dorsal right hallux painted with Betadine and dressed with Adaptic. Ulceration sites dressed with Adaptic and anchored with Steri-Strips. Dry sterile dressing applied to operative sites in addition to Kerlix and 4 inch Pedro wrap rolled onto the right foot without compression. Patient tolerated the procedure and anesthesia well and was transported to PACU with vital signs stable and vascular status intact to the right foot. Postop imaging was obtained in PACU and reviewed prior to leaving. Patient will return to floor and continue IV antibiotics. Dressings to stay intact to the right foot. She is permitted to be protective weightbearing to the right foot in surgical shoe. I will continue to follow while in house. Surgical Findings: Very minimal bleeding secondary to severe arterial disease, no tourniquet utilized. See operative note for other findings. Complications Complications: No Admit VTE Documentation VTE Present on Admission: Yes VTE Mechan Device Prophylaxis: SCD's VTE Pharm Prophylaxis ordered?: Yes
--- NOTE | 2024-05-12 13:39 | PCM.POST.ANE ---
Anesthesia: Postop Eval I Current Vital Signs Temperature: 97.9 F Pulse Rate: 56 Blood Pressure: 112/48 Respiratory Rate: 18 Pulse Ox: 100 Assessment Airway patent: Yes Spontaneous unlabored respirations: Yes nausea: No Vomiting: No Anesthesia Complication: No Fluid Hydration Crystalloid volume administer (ml): 20 Total IV fluid infused: 20 Progress Note Anesthesia document: Postop Eval 1 completed: Yes
--- NOTE | 2024-05-12 13:41 | RAD_ITS ---
STUDY: X-RAY - RIGHT FOOT CLINICAL: Female, 88 years old. post op debridement bone Right Hallux (PACU) TECHNIQUE: 3 view(s) of the foot. COMPARISON: 05/09/2024 FINDINGS: Normal talus, calcaneus, and tarsal bones. Normal visualized subtalar, talonavicular, calcaneocuboid, tarsal and tarsometatarsal articulations. Normal metatarsi. Normal metatarsophalangeal joint of the great toe. Normal tibial and fibular sesamoid bones. Normal interphalangeal joint of the great toe. Interval resection of the head of the first proximal phalanx. Normal second through fifth metatarsophalangeal joints. Status post partial limitation of the second third digits of the middle phalanges. Healed fracture of the base of the fifth proximal phalanx. The soft tissue structures are unremarkable. RAD/Foot min 3 Views IMPRESSION: Interval resection of the head of the first proximal phalanx. Electronically Signed: Hari Dove MD at 9:00 EST ,
--- NOTE | 2024-05-12 14:19 | PN_ITS ---
Subjective Subjective Patient seen and examined. She had no active complaints. She had an uneventful night. She did have cardiac cath yesterday with insertion of cardiac stent. Review of systems otherwise negative. Objective Data Objective Data Vital Signs: Vital Signs Temp Pulse Resp BP Pulse Ox O2 Del Method O2 Flow Rate 97.0 F L 58 L 18 118/52 L 100 Nasal Cannula 3 05/12/24 14:00 05/12/24 14:00 05/12/24 14:00 05/12/24 14:00 05/12/24 14:00 05/12/24 14:00 05/12/24 14:00 Oxygen Flow Rate (L/min) 3 Oxygen Delivery Method Nasal Cannula Weight: 161 lb 13.109 oz Body Mass Index (BMI) 27.8 Intake & Output: Intake and Output for Last 24 Hours 05/10/24 05/11/24 05/12/24 23:59 23:59 23:59 Intake Total 2440.50 / 2440.50 1695.90 / 1695.90 300 / 300 Output Total 0 / 0 375 / 375 200 / 200 Balance 2440.50 / 2440.50 1320.90 / 1320.90 100 / 100 Lab / Micro Data 05/12/24 02:03 05/12/24 02:03 Labs: Laboratory Results - last 24 hr 05/11/24 16:33: POC Glucose 187 H 05/11/24 21:46: POC Glucose 174 H 05/11/24 23:52: POC Glucose 156 H 05/12/24 02:03: WBC 8.6, RBC 3.12 L, Hgb 9.3 L, Hct 27.9 L, MCV 89.4, MCH 29.8, MCHC 33.3, RDW Std Deviation 44.0 H, RDW Coeff of Kathy 13.5, Plt Count 249, MPV 9.8, Immature Gran % (Auto) 0.600, Neut % (Auto) 67.6, Lymph % (Auto) 21.6, [place] % (Auto) 8.7, Eos % (Auto) 1.2, Baso % (Auto) 0.3, Absolute Neuts (auto) 5.8, Absolute Lymphs (auto) 1.86, Nucleated RBC % 0, Sodium 131 L, Potassium 3.4 L, Chloride 102, Carbon Dioxide 23.0, Anion Gap 6, BUN 27 H, Creatinine 0.90, Estim Creat Clear Calc 40.99, Est GFR (MDRD) Af Amer 76, Est GFR (MDRD) Non-Af 63, B UN/Creatinine Ratio 30.2 H, Glucose 155 H, Calcium 8.1 L, Total Bilirubin 0.40, AST 52 H, ALT 25, Alkaline Phosphatase 35 L, Total Protein 5.6 L, Albumin 2.1 L, Globulin 3.5, Albumin/Globulin Ratio 0.6 L, Vancomycin Trough 8.7 05/12/24 06:34: POC Glucose 152 H 05/12/24 10:19: POC Glucose 131 H Micro: Microbiology 05/11/24 02:05 Wound Abcess - Toe Gram Stain - Final 05/11/24 02:05 Wound Abcess - Toe Wound Culture - Preliminary No growth-Final to follow 05/10/24 01:36 Urine Catheter - Catheter Urine Culture - Final Culture exhibits no growth. 05/10/24 00:10 Blood Culture (Wb) - Anticubital Left Blood Culture - Preliminary No growth in 48 hours. 05/10/24 00:10 Blood Culture (Wb) - Right Forearm Blood Culture - Preliminary No growth in 48 hours. Physical Exam Const alert, oriented x3, no apparent distress and well nourished General Appearance: cooperative and well developed HEENT normocephalic, head/scalp atraumatic and moist oral mucous membranes Eyes PERRL and EOMs intact bilaterally Neck no lymphadenopathy and supple Lymph Lymphatic: no lymphadenopathy noted and no lymphedema noted Resp normal respiratory effort, normal air movement and clear to auscultation bilaterally Cardio regular rate, regular rhythm, S1 normal heart sound and S2 normal heart sound GI normal to inspection, nondistended, normoactive bowel sounds, soft to palpation, non-tender and non-distended Extremity Extremity Narrative: has an eschar over the outer aspect of the right great toe, with right great toe also swollen and erythematous. General Extremity: no tenderness to palpation of joints or extremities Skin Skin Narrative: as under extremities. General Skin Exam: no breakdown Neuro CN's II-XII intact bilaterally, no focal motor deficits and no sensory deficits noted Motor Exam: strength 5/5 throughout and general weakness Psych thought process normal, cooperative and affect normal Appearance: appropriate Assessment & Plan Assessment/Plan (1) Acute UTI: (2) Diabetic foot infection: (3) Non-ST elevation NM (NSTEMI): PLAN: Plan #nonstemi * Initial troponin was 1600 and trended up to over 1999. * 2D echo ordered showed EF of 30% with moderately severe left ventricular systolic dysfunction and hypokinesia of the apex and mid anteroseptal region, consistent with Takotsubo cardiomyopathy. * cardiology on board * EKG did show t wave inversions. Per cardiology, this is likely due to her right bundle branch block * on aspirin, high intensity statin and heparin drip * had cardiac cath which showed left anterior descending artery previously stented with in-stent restenosis of approximately 60 to 70% and moderately severe distal disease as well as 90% proximal stenosis of the first diagonal vessel in the mid 70% stenosis in the left circumflex artery which was dominant with mild irregular rate. She had PCI of the diagonal vessel successfully. * Continue on aspirin and Plavix as well as high intensity statin. Beta- blockers and RAY inhibitors and per cardiology to be eventually switched to Entresto. * #UTI: * Urinalysis shows 2+ bacteria. * Urine culture showed no growth the wound cultures also showed no growth so far. Blood cultures also showed no growth. * Currently on IV vancomycin and Zosyn. * Zosyn should cover the UTI. #Diabetic foot ulcer * podiatry consulted. MRI of the foot showed no evidence of acute osteomyelitis * on IV vancomycin and zosyn * wound cultures show no growth so far * For surgery today #Hyperlipidemia: on high intensity statin #CAD s/p stent * on aspirin and plavix as well as high intensity satin #Type 2 diabetes mellitus * on ISS. Accuchecks ACHS. * metformin on hold. * A1C is 7.2. * DVT prophylaxis: heparin drip Charges/Coding Visit Charges Inpatient E&M: 14654 Subs Hosp L2
[2024-05-12 16:54] LABS: Bedside Glucose 135 mg/dL (74-106)
[2024-05-12] MEDS: Acetaminophen 325 MG Tablet 650 MG PO (17:43)
--- NOTE | 2024-05-12 18:08 | EX.PCM.CON.S ---
Assessment & Plan Assessment/Plan (1) Non-pressure chronic ulcer of other part of right foot with fat layer exposed: (2) Peripheral vascular disease, unspecified: PLAN: Plan Arterial duplex and ABIs are pending to be completed tomorrow, pending these results will determine if further arterial intervention is needed to improve healing potential; at that time can further discuss what interventional options may include however she would be high risk for general anesthesia at this time so would recommend against this for an angiogram. HPI Consult Data Date of Consult: 05/12/24 HPI Narrative HPI Narrative: GENTRY COBB, is a 88 F who presented to the [facility] ER following syncopal episode at home. On evaluation, she had elevated WBC, lactic, and CRP felt to be secondary to infection of R diabetic foot wounds and abnormal EKG with T wave inversions and elevated troponin to 1600 consistent with NSTEMI. For NSTEMI, she underwent cardiac catheterization yesterday with PCI of the first diagnoal vessel and which also revealed left ventricular systolic dysfunction with EF 30%. With respect to her R diabetic foot wounds, she had operative debridement by Dr. Art earlier today. She reports these wounds have been present just a few weeks, but her daughter and granddaughter state it has been months. Her granddaughter states she does not properly care for her feet or wounds, does not abide well by wound care instructions. She has had multiple prior diabetic ulcerations. She is known to our office, she had RLE angiogram with SFA/pop atherectomy/DCB and AT angioplasty on 04/15/23 for at that time R toe wounds which ultimately required R 2nd and 3rd toe partial amputations. Her last arterial studies were in September, at that time her prior SFA/pop and AT interventions were patent; she had some more proximal femoral disease but at that time reportedly had no wounds and wished to proceed conservatively; R JENY was 0.61. She expresses that her last angiogram was not a good experience, she felt a lot of pain during the procedure itself. She says she would not want to have this done again unless she were all the way to sleep. [facility] Medical History TIA (transient ischemic attack) Stroke/cerebrovascular accident Wears eyeglasses Depression Anxiety Alcohol abuse History of restless legs syndrome Hx of syncope Dietary restriction Difficulty swallowing Hx of heartburn COPD (chronic obstructive pulmonary disease) Hx of shortness of breath Hx of edema Hx of echocardiogram Hx of cardiovascular stress test Carotid stenosis Bone infection of left foot Osteomyelitis of left foot Gangrene of left foot Wears dentures Ambulates with cane Arthritis Easy bruising Prolapsed bladder Former smoker Cardiology follow-up encounter Cellulitis of left thigh Post-op pain Ischaemic rest pain of lower extremity Open wound of left foot Cellulitis of left foot Amputated toe Rectocele Cystocele Type 2 diabetes mellitus Presence of stent in coronary artery (~07/04/11) Essential hypertension RBBB (right bundle branch block) Atherosclerotic heart disease of [place] coronary artery without angina pectoris Peripheral arterial occlusive disease HTN (hypertension) Osteoarthritis Diabetes Hyperlipidemia Carotid stenosis, bilateral BBB (bundle branch block) PAD (peripheral artery disease) Home Medications ?Medication ?Instructions ?Recorded ?Last Taken ?Type aspirin 81 mg chewable tablet 81 mg PO QHS health maintenance 06/07/16 04/28/23 History clopidogrel 75 mg tablet 75 mg PO DAILY platelet inhibitor 06/07/16 04/28/23 History multivitamin 1 tab PO DAILY SUPPLEMENT 04/28/19 04/28/23 History lisinopril 20 mg tablet 20 mg PO BID BP 01/01/21 04/28/23 History metoprolol tartrate 25 mg tablet 25 mg PO TID BP 01/01/21 04/28/23 History metformin 500 mg tablet,extended 500 mg PO BID DM 07/01/21 04/28/23 History release 24 hr cholecalciferol (vitamin D3) 25 25 mcg PO DAILY SUPPLEMENT 09/26/21 04/28/23 History mcg (1,000 unit) tablet (Vitamin D3) nitroglycerin 0.4 mg sublingual 0.4 mg sublingual Q5-15M PRN chest 02/12/23 Unknown Rx tablet pain #25 tabs acetaminophen 500 mg tablet 500 mg PO Q6H PRN pain #20 tabs 04/30/23 Unknown Rx (Tylenol Extra Strength) amlodipine 10 mg tablet 10 mg PO DAILY bp 11/12/23 Unknown History coenzyme Q10 75 mg capsule (Ultra 75 mg PO QDAY suppliment 02/03/24 Unknown History CoQ10) Allergy/AdvReac Type Severity Reaction Status Date / Time pravastatin AdvReac Severe myalgias Verified 02/03/24 10:00 [id number] Reductase AdvReac Severe myalgias Verified 02/03/24 10:00 Inhibitor Sulfa (Sulfonamide AdvReac Mild stomach Verified 02/03/24 10:00 Antibiotics) upset atorvastatin AdvReac myalgias Verified 02/03/24 10:00 Family History Father Diabetes Heart disease Brother Diabetes Colon cancer Brother Diabetes Surgical History Hx of toe surgery S/P bladder repair History of colonoscopy History of tonsillectomy Cataract extraction status of right eye Presence of coronary angioplasty implant and graft (~05/11/24) History of hemorrhoidectomy History of left-sided carotid endarterectomy Status post peripheral artery angioplasty History of heart artery stent History of hysterectomy Social History Smoking Status: Current some day smoker tobacco type: cigarettes and cigars how long ago did patient quit smokin + years ago alcohol intake: current alcohol intake frequency: a few times a month Alcohol type: wine substance use type: does not use caffeine: Yes Type: coffee Number of servings: 2 what type of physical activity do you participate in: walking seatbelt use: always do you feel safe at home: Yes Physical Exam Const alert, oriented x3 and no apparent distress HEENT normocephalic, hearing grossly normal bilaterally, external ears normal and external nose normal Eyes EOMs intact bilaterally General Eye: normal appearance of both eyes Neck General: normal visual inspection and trachea midline Resp normal respiratory effort Effort and Inspection: able to speak in complete sentences; Negative for labored, grunting, stridor or retractions Cardio regular rate and regular rhythm Extremity Extremity Narrative: R foot with postoperative dressing in place Neuro oriented x3, moves all extremities and no focal motor deficits Speech: speech normal Psych Appearance: grossly normal Attitude: calm Activity / Motor Behavior: appropriate eye contact Speech: normal speech Mood & Affect: euthymic mood Lab / Micro Data 05/12/24 02:03 05/12/24 02:03 Labs: Laboratory Results - last 24 hr 05/11/24 21:46: POC Glucose 174 H 05/11/24 23:52: POC Glucose 156 H 05/12/24 02:03: WBC 8.6, RBC 3.12 L, Hgb 9.3 L, Hct 27.9 L, MCV 89.4, MCH 29.8, MCHC 33.3, RDW Std Deviation 44.0 H, RDW Coeff of Kathy 13.5, Plt Count 249, MPV 9.8, Immature Gran % (Auto) 0.600, Neut % (Auto) 67.6, Lymph % (Auto) 21.6, [place] % (Auto) 8.7, Eos % (Auto) 1.2, Baso % (Auto) 0.3, Absolute Neuts (auto) 5.8, Absolute Lymphs (auto) 1.86, Nucleated RBC % 0, Sodium 131 L, Potassium 3.4 L, Chloride 102, Carbon Dioxide 23.0, Anion Gap 6, BUN 27 H, Creatinine 0.90, Estim Creat Clear Calc 40.99, Est GFR (MDRD) Af Amer 76, Est GFR (MDRD) Non-Af 63, BUN/Creatinine Ratio 30.2 H, Glucose 155 H, Calcium 8.1 L, Total Bilirubin 0.40, AST 52 H, ALT 25, Alkaline Phosphatase 35 L, Total Protein 5.6 L, Albumin 2.1 L, Globulin 3.5, Albumin/Globulin Ratio 0.6 L, Vancomycin Trough 8.7 05/12/24 06:34: POC Glucose 152 H 05/12/24 10:19: POC Glucose 131 H 05/12/24 16:33: POC Glucose 135 H Micro: Microbiology 05/11/24 02:05 Wound Abcess - Toe Gram Stain - Final 05/11/24 02:05 Wound Abcess - Toe Wound Culture - Preliminary No growth-Final to follow 05/10/24 01:36 Urine Catheter - Catheter Urine Culture - Final Culture exhibits no growth. 05/10/24 00:10 Blood Culture (Wb) - Anticubital Left Blood Culture - Preliminary No growth in 48 hours. 05/10/24 00:10 Blood Culture (Wb) - Right Forearm Blood Culture - Preliminary No growth in 48 hours. Charges/Coding Visit Charges Inpatient E&M: 98434 Init Hosp L1
[2024-05-12] MEDS: Morphine 2 MG/ML Syringe IV (20:54)
[2024-05-13] VITALS (8 sets, daily range): BP systolic 126–141; BP diastolic 48–59; PULSE 57–69; RESP 16–18; TEMP 35.9–36.7; O2SAT 93–97; BMI 26.6
[2024-05-13 00:26] LABS: Bedside Glucose 141 mg/dL (74-106)
[2024-05-13] MEDS: Acetaminophen 325 MG Tablet 650 MG PO ×3 (01:36→18:56)
[2024-05-13] MEDS: Vancomycin IV 1,000 MG/200 ML BAG 200 MG IV (02:55)
[2024-05-13] MEDS: Piperacil/Tazobactam 3.375 GM in 0.9% Normal Saline (50mL MB+) 50 ML IV ×3 (05:19→21:07)
[2024-05-13] MEDS: Insulin Lispro 100 UNIT/ML INSULN.PEN SC ×3 (05:23→17:04)
[2024-05-13] MEDS: 0.9% Saline Lock 10 ML Syringe IV ×3 (05:27→15:02)
[2024-05-13] MEDS: Metoprolol Tartrate 25 MG Tablet PO ×3 (05:27→21:08)
[2024-05-13 07:04] LABS: Bedside Glucose 156 mg/dL (74-106)
[2024-05-13 07:14] LABS: Absolute Neutrophil Count 3.3 X10^3/uL (2.0-7.7); Basophil# 0.04 X10^3/uL; Basophil% 0.7 % (0-1); Eosinophil# 0.43 X10^3/uL; Eosinophils% 7.2 % (0-5); Hemoglobin 8.9 g/dL (12.0-15.0); Lymphocyte % 26.8 % (19-41); Mean Corpuscular Hgb 29.4 pg (27.0-32.0); Mean Corpuscular Volume 89.1 fL (81-99); Monocyte# 0.53 X10^3/uL; Monocyte% 8.9 % (0-10); NRBC Flagged by Analyzer 0 % (0-5); Neutrophil # 3.33 X10^3/uL (2.7-7.7); Neutrophil % 55.7 % (47-70); Platelet Count 259 K/mm3 (150-450); RBC Distribution Width CV 13.7 % (11.6-14.6); RBC Distribution Width SD 44.3 fl (35.1-43.9); Red Blood Count 3.03 M/mm3 (4.2-5.4)
--- NOTE | 2024-05-13 07:37 | POSTOPAN2_ITS ---
Anesthesia Postop Eval I Sum Postop Eval Completion status Anesthesia document: Postop Eval 1 completed: Yes Anesthesia Postop Eval I Summary Anesthesia Postop Eval I Summary: Anesthesia Postop Eval I: Assessment Summary Airway patent Yes 05/12/24 13:39 QUALITY ASSURANCE [email or web address].CSIR Spontaneous unlabored Yes 05/12/24 13:39 QUALITY ASSURANCE TECH.CSIR respirations Mental status nausea No 05/12/24 13:39 QUALITY ASSURANCE TECH.CSIR Vomiting No 05/12/24 13:39 QUALITY ASSURANCE TECH.CSIR Anesthesia Postop Eval I: Fluid Summary Crystalloid volume administer 20 05/12/24 13:39 QUALITY ASSURANCE TECH.CSIR (ml) Colloids volume administered ( ml) Blood Product volume administered (ml) Total IV fluid infused 20 05/12/24 13:39 QUALITY ASSURANCE TECH.CSIR Anesthesia Postop Eval I: Summary Notes Anesthesia Complication No 05/12/24 13:39 QUALITY ASSURANCE TECH.CSIR Anesthesia Complication Comment: Post-operative progress note Anesthesia: Postop Eval II Evaluation Mental status: Awake Pain Level: 0 nausea: No Vomiting: No
--- NOTE | 2024-05-13 07:37 | PCM.POSTANE2 ---
Anesthesia Postop Eval I Sum Postop Eval Completion status Anesthesia document: Postop Eval 1 completed: Yes Anesthesia Postop Eval I Summary Anesthesia Postop Eval I Summary: Anesthesia Postop Eval I: Assessment Summary Airway patent Yes 05/12/24 13:39 [email or web address] Spontaneous unlabored Yes 05/12/24 13:39 [employer] respirations Mental status nausea No 05/12/24 13:39 [employer] Vomiting No 05/12/24 13:39 [employer] Anesthesia Postop Eval I: Fluid Summary Crystalloid volume administer 20 05/12/24 13:39 [employer]CSIR (ml) Colloids volume administered ( ml) Blood Product volume administered (ml) Total IV fluid infused 20 05/12/24 13:39 [employer]CSIR Anesthesia Postop Eval I: Summary Notes Anesthesia Complication No 05/12/24 13:39 [employer]CSIR Anesthesia Complication Comment: Post-operative progress note Anesthesia: Postop Eval II Evaluation Mental status: Awake Pain Level: 0 nausea: No Vomiting: No
--- NOTE | 2024-05-13 07:50 | PN_ITS ---
Subjective Subjective Patient seen early this a.m. resting in bed. States the right foot has some diabetic nerve pain. States she is still tired despite sleeping. Denies further complaints. Objective Data Objective Data Vital Signs: Vital Signs Temp Pulse Resp BP Pulse Ox O2 Del Method O2 Flow Rate 96.6 F L 57 L 18 129/56 H 93 Room Air 3 05/13/24 05:30 05/13/24 05:30 05/13/24 05:30 05/13/24 05:30 05/13/24 05:30 05/13/24 05:30 05/12/24 21:00 Oxygen Flow Rate (L/min) 3 Oxygen Delivery Method Room Air Weight: 73.4 kg Body Mass Index (BMI) 27.8 Intake & Output: Intake and Output for Last 24 Hours 05/11/24 05/12/24 05/13/24 23:59 23:59 23:59 Intake Total 1695.90 / 1695.90 350 / 350 450 / 450 Output Total 375 / 375 200 / 600 950 / 950 Balance 1320.90 / 1320.90 150 / -250 -500 / -500 Lab / Micro Data 05/13/24 06:19 05/12/24 02:03 Labs: Laboratory Results - last 24 hr 05/12/24 10:19: POC Glucose 131 H 05/12/24 16:33: POC Glucose 135 H 05/13/24 00:07: POC Glucose 141 H 05/13/24 05:22: POC Glucose 156 H 05/13/24 06:19: WBC 6.0, RBC 3.03 L, Hgb 8.9 L, Hct 27.0 L, MCV 89.1, MCH 29.4, MCHC 33.0, RDW Std Deviation 44.3 H, RDW Coeff of Kathy 13.7, Plt Count 259, MPV 10.0, Immature Gran % (Auto) 0.700, Neut % (Auto) 55.7, Lymph % (Auto) 26.8, [place] % (Auto) 8.9, Eos % (Auto) 7.2 H, Baso % (Auto) 0.7, Absolute Neuts (auto) 3.3, Absolute Lymphs (auto) 1.60, Nucleated RBC % 0 Micro: Microbiology 05/11/24 02:05 Wound Abcess - Toe Gram Stain - Final 05/11/24 02:05 Wound Abcess - Toe Wound Culture - Preliminary No growth-Final to follow 05/10/24 01:36 Urine Catheter - Catheter Urine Culture - Final Culture exhibits no growth. 05/10/24 00:10 Blood Culture (Wb) - Anticubital Left Blood Culture - Preliminary No growth in 48 hours. 05/10/24 00:10 Blood Culture (Wb) - Right Forearm Blood Culture - Preliminary No growth in 48 hours. Radiography Diagnostic Testing: Radiology Impression Foot X-Ray 05/12/24 10:56 IMPRESSION: Intraoperative images of the first toe. Electronically Signed: Dre Richardson DO at 0:23 EST Reading Location ID and State: [facility] / [place] Tel [phone], Service support , Physical Exam Const alert, oriented x3 and no apparent distress General Appearance: cooperative HEENT normocephalic Eyes General Eye: normal appearance of both eyes Neck General: normal visual inspection Lymph Lymphatic: no lymphadenopathy noted and no lymphedema noted Resp normal respiratory effort Extremity Extremity Narrative: Right lower extremity: Vascular: DP and PT pulses weakly palpable. CFT less than 5 seconds to the digits. Normal temperature gradient. Hair growth absent to digits/foot. Neurologic: Gross sensation intact. Protective sensation diminished to foot consistent with diabetic peripheral polyneuropathy. 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 Decreased range of motion of the first metatarsophalangeal joint without pain or crepitus. Decreased range of motion of the ankle joint dorsiflexion with the knee extended without pain or crepitus. No pain to palpation about the ulcerative site of the hallux. There is some tenderness to the superficial ulceration site on the lateral forefoot. No pain to palpation of calf. Derm: Varicosities noted to lower extremity and foot. Skin is thin/atrophic. Normal turgor. There is an superficial ulceration to the lateral forefoot near the fifth metatarsal head measuring 1.0 cm x 0.7 cm postdebridement. Grafting product in place. No signs of infection. Sutures intact to dorsal hallux. Full-thickness granular ulceration plantar medial hallux measuring 1.5 x 1.5 x 1.0 postdebridement with grafting product in place. Hallux does appear somewhat blanched in color secondary to her PVD. Left Lower Extremity: Vascular: DP and PT pulses weakly palpable. CFT less than 5 seconds to the digits. Normal temperature gradient. Hair growth is absent to digits/foot. Neurologic: Gross sensation intact. Protective sensation is diminished to foot consistent with diabetic peripheral polyneuropathy. Musculoskeletal: Amputation of the fourth and fifth digit noted with well-healed cicatrix. Decreased range of motion of the first metatarsophalangeal joint without pain or crepitus. Decreased range of motion of the ankle joint in dorsiflexion with knee extended without pain or crepitus. Derm: Varicosities noted to the lower extremity and foot. Skin is thin/atrophic. Normal turgor. No open wounds. 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 Right foot: There is an superficial ulceration to the lateral forefoot near the fifth metatarsal head measuring 1.0 cm x 0.7 cm postdebridement. Grafting product in place. No signs of infection. Sutures intact to dorsal hallux. Full-thickness granular ulceration plantar medial hallux measuring 1.5 x 1.5 x 1.0 postdebridement with grafting product in place. Hallux does appear somewhat blanched in color secondary to her PVD. WBC currently 6.0 Currently on IV Vanco/Zosyn Culture: Swab of Right Hallux, awaiting results; Bone distal/proximal phalanx Right Hallux, awaiting results. Grafting product in place to lateral forefoot/fifth digit ulcerative site. Sutures intact dorsal hallux and grafting product in place plantar medial hallux. Dry sterile dressing was changed today. Recommend with change in digit color continuing to monitor for additional changes and if digit becomes necrotic amputation may be required. Radiographs: Xray Right foot negative for Osteomyelitis. MRI of Right foot performed 05/10/24 negative for Osteomeyelitis. LEAS was performed in September 2023: Right lower extremity JENY 0.61 PT and 0.35 DP, TBI 0.30; left JENY 0.47 PT 0.48 DP and TBI 0.22. Medicine following for medical management, they are greatly appreciated. Cardiology following and intervention took place on 05/11/2024. She has been cleared for podiatry intervention 05/12/2024 Vascular surgery following for possible intervention following podiatric intervention. Wound nurse following for assistance with dressing change. Podiatry to reevaluate next week. If discharged will follow in office for continued local wound care. Jr. Shi Thornton.P.M. [facility] [phone]
[2024-05-13 07:54] LABS: Anion Gap 5 (5-15); BUN 28 mg/dL (7-18); BUN/Creat Ratio 31.2 RATIO (10-20); Calcium,Total 8.2 mg/dL (8.5-10.1); Chloride 105 mmol/L (98-107); EST Glomerular Filtration Rate 63 mL/min (>60); Est Glom Filt Rate - Afr Amer 76 mL/min (>60); Estimated Creatinine Clearance 42.41 ml/min; Glucose 148 mg/dL (74-106); Potassium 4.2 mmol/L (3.5-5.1); Sodium Level 134 mmol/L (136-145)
--- NOTE | 2024-05-13 10:00 | EKG12_ITS ---
Test Reason : AM EKG Blood Pressure : */* mmHG Vent. Rate : 56 BPM Atrial Rate : 56 BPM P-R Int : 182 ms QRS Dur : 132 ms QT Int : 482 ms P-R-T Axes : 54 6 60 degrees QTcB Int : 465 ms Sinus bradycardia Right bundle branch block Abnormal ECG When compared with ECG of 12-May-2024 05:36, Criteria for Septal infarct are no longer Present Confirmed by ELTON BARAJAS MD ([id number]), editor greeting card JOSR CAREY ([id number]) on 05/13/2024 9:56:10 AM Referred By: Confirmed By: ELTON BARAJAS MD
[2024-05-13] MEDS: Clopidogrel Bisulfate 75 MG Tablet PO (10:22)
[2024-05-13] MEDS: Lisinopril 20 MG Tablet PO ×2 (10:22→21:08)
[2024-05-13] MEDS: Cholecalciferol (VIT D3) 25 MCG TABLET (1,000 UNITS) PO (10:22)
[2024-05-13] MEDS: amLODIPine 10 MG Tablet PO (10:22)
[2024-05-13] MEDS: Aspirin E.C. 81 MG Tablet PO (10:22)
--- NOTE | 2024-05-13 11:21 | CASEMGMT ---
Addendum entered by Candelaria Christopher 05/13/24 12:50: Social Work TCU is able to accept pt. Precert cannot be started until determination of antibiotic needs. Pt here through the weekend and precert to be started on Thursday. Physician notified. MERI King Original Note: Social Work SW met with pt and her dgt Jessie and granddaughter to discuss discharge plan. Pt and family are agreeable that pt will need SNF prior to return home. After reviewing the SNF list, family preference is 1. [facility]CU 2. [facility]. Referral made to TCU. SW will await determination of acceptance. Plan: TCU, pending acceptance and precert MERI King
--- NOTE | 2024-05-13 12:04 | PN_ITS ---
Subjective Subjective Patient seen and examined. She had no active complaints. Review of systems is otherwise negative. She had right foot debridement yesterday. Today is POD 1. Objective Data Objective Data Vital Signs: Vital Signs Temp Pulse Resp BP Pulse Ox O2 Del Method O2 Flow Rate 97.5 F L 59 L 16 139/48 H 97 Room Air 3 05/13/24 10:18 05/13/24 10:18 05/13/24 10:18 05/13/24 10:18 05/13/24 10:18 05/13/24 10:18 05/12/24 21:00 Oxygen Flow Rate (L/min) 3 Oxygen Delivery Method Room Air Weight: 155 lb 6.814 oz Body Mass Index (BMI) 26.6 Intake & Output: Intake and Output for Last 24 Hours 05/11/24 05/12/24 05/13/24 23:59 23:59 23:59 Intake Total 1695.90 / 1695.90 350 / 350 500 / 500 Output Total 375 / 375 200 / 600 950 / 950 Balance 1320.90 / 1320.90 150 / -250 -450 / -450 Lab / Micro Data 05/13/24 06:19 05/13/24 06:19 Labs: Laboratory Results - last 24 hr 05/12/24 16:33: POC Glucose 135 H 05/13/24 00:07: POC Glucose 141 H 05/13/24 05:22: POC Glucose 156 H 05/13/24 06:19: WBC 6.0, RBC 3.03 L, Hgb 8.9 L, Hct 27.0 L, MCV 89.1, MCH 29.4, MCHC 33.0, RDW Std Deviation 44.3 H, RDW Coeff of Kathy 13.7, Plt Count 259, MPV 10.0, Immature Gran % (Auto) 0.700, Neut % (Auto) 55.7, Lymph % (Auto) 26.8, [place] % (Auto) 8.9, Eos % (Auto) 7.2 H, Baso % (Auto) 0.7, Absolute Neuts (auto) 3.3, Absolute Lymphs (auto) 1.60, Nucleated RBC % 0, Sodium 134 L, Potassium 4.2, Chloride 105, Carbon Dioxide 24.0, Anion Gap 5, BUN 28 H, Creatinine 0.90, Estim Creat Clear Calc 42.41, Est GFR (MDRD) Af Amer 76, Est GFR (MDRD) Non-Af 63, BUN/Creatinine Ratio 31.2 H, Glucose 148 H, Calcium 8.2 L Micro: Microbiology 05/11/24 02:05 Wound Abcess - Toe Gram Stain - Final 05/11/24 02:05 Wound Abcess - Toe Wound Culture - Final No growth aerobically. 05/10/24 01:36 Urine Catheter - Catheter Urine Culture - Final Culture exhibits no growth. 05/10/24 00:10 Blood Culture (Wb) - Anticubital Left Blood Culture - Preliminary No growth in 48 hours. 05/10/24 00:10 Blood Culture (Wb) - Right Forearm Blood Culture - Preliminary No growth in 48 hours. Radiography Diagnostic Testing: Radiology Impression Foot X-Ray 05/12/24 10:56 IMPRESSION: Intraoperative images of the first toe. Electronically Signed: Dre Richardson DO at 0:23 EST , Foot X-Ray 05/12/24 13:41 IMPRESSION: Interval resection of the head of the first proximal phalanx. Electronically Signed: Hari Dove MD at 9:00 EST , Physical Exam Const alert, oriented x3, no apparent distress and well nourished General Appearance: cooperative and well developed HEENT normocephalic, head/scalp atraumatic and moist oral mucous membranes Eyes PERRL and EOMs intact bilaterally Neck no lymphadenopathy and supple Lymph Lymphatic: no lymphadenopathy noted and no lymphedema noted Resp normal respiratory effort, normal air movement and clear to auscultation bilaterally Cardio regular rate, regular rhythm, S1 normal heart sound and S2 normal heart sound GI normal to inspection, nondistended, normoactive bowel sounds, soft to palpation, non-tender and non-distended Extremity Extremity Narrative: RLE wrapped in bandage General Extremity: no tenderness to palpation of joints or extremities Skin Skin Narrative: as under extremities. Neuro CN's II-XII intact bilaterally, no focal motor deficits and no sensory deficits noted Motor Exam: strength 5/5 throughout and general weakness Psych thought process normal, cooperative and affect normal Appearance: appropriate Assessment & Plan Assessment/Plan (1) Acute UTI: (2) Diabetic foot infection: (3) Non-ST elevation VT (NSTEMI): PLAN: Plan #nonstemi * Initial troponin was 1600 and trended up to over 2000. * 2D echo ordered showed EF of 30% with moderately severe left ventricular systolic dysfunction and hypokinesia of the apex and mid anteroseptal region, consistent with Takotsubo cardiomyopathy. * cardiology on board * EKG did show t wave inversions. Per cardiology, this is likely due to her right bundle branch block * on aspirin, high intensity statin and heparin drip * had cardiac cath which showed left anterior descending artery previously stented with in-stent restenosis of approximately 60 to 70% and moderately severe distal disease as well as 90% proximal stenosis of the first diagonal vessel in the mid 70% stenosis in the left circumflex artery which was dominant with mild irregular rate. She had PCI of the diagonal vessel successfully. * Continue on aspirin and Plavix as well as high intensity statin. Beta- blockers and RAY inhibitors and per cardiology to be eventually switched to Entresto. * #UTI: * Urinalysis shows 2+ bacteria. * Urine culture showed no growth the wound cultures also showed no growth so far. Blood cultures also showed no growth. * Currently on IV vancomycin and Zosyn. * Zosyn should cover the UTI. #Diabetic foot ulcer * podiatry consulted. MRI of the foot showed no evidence of acute osteomyelitis * on IV vancomycin and zosyn * wound cultures show no growth so far * s/p debridement by podiatry on 05/12/2024. Today is POD 1. * #Hyperlipidemia: on high intensity statin #CAD s/p stent * on aspirin and plavix as well as high intensity satin #Type 2 diabetes mellitus * on ISS. Accuchecks ACHS. * metformin on hold. * A1C is 7.2. * DVT prophylaxis: heparin drip Charges/Coding Visit Charges Inpatient E&M: 95614 Subs Hosp L2
[2024-05-13] MEDS: Multivitamins,Therapeutic Tablet 1 TABLET PO (12:30)
[2024-05-13 13:00] LABS: Bedside Glucose 229 mg/dL (74-106)
[2024-05-13 17:23] LABS: Bedside Glucose 165 mg/dL (74-106)
--- NOTE | 2024-05-13 20:27 | PCM.PN.SRG ---
Subjective Subjective At the time of my exam, she was resting comfortably in bed. Her daughter Jessie was at bedside. Patient reports some stinging into her foot but otherwise no complaints. She had her arterial studies earlier today. Objective Data Objective Data Vital Signs: Vital Signs Temp Pulse Resp BP Pulse Ox O2 Del Method O2 Flow Rate 97.4 F L 69 16 132/51 H 95 Room Air 3 05/13/24 14:58 05/13/24 15:08 05/13/24 14:58 05/13/24 14:58 05/13/24 14:58 05/13/24 14:58 05/12/24 21:00 Oxygen Flow Rate (L/min) 3 Oxygen Delivery Method Room Air Weight: 155 lb 6.814 oz Body Mass Index (BMI) 26.6 Intake & Output: Intake and Output for Last 24 Hours 05/11/24 05/12/24 05/13/24 23:59 23:59 23:59 Intake Total 1695.90 / 1695.90 350 / 350 500 / 500 Output Total 375 / 375 200 / 600 950 / 950 Balance 1320.90 / 1320.90 150 / -250 -450 / -450 Lab / Micro Data 05/13/24 06:19 05/13/24 06:19 Labs: Laboratory Results - last 24 hr 05/13/24 00:07: POC Glucose 141 H 05/13/24 05:22: POC Glucose 156 H 05/13/24 06:19: WBC 6.0, RBC 3.03 L, Hgb 8.9 L, Hct 27.0 L, MCV 89.1, MCH 29.4, MCHC 33.0, RDW Std Deviation 44.3 H, RDW Coeff of Kathy 13.7, Plt Count 259, MPV 10.0, Immature Gran % (Auto) 0.700, Neut % (Auto) 55.7, Lymph % (Auto) 26.8, [place] % (Auto) 8.9, Eos % (Auto) 7.2 H, Baso % (Auto) 0.7, Absolute Neuts (auto) 3.3, Absolute Lymphs (auto) 1.60, Nucleated RBC % 0, Sodium 134 L, Potassium 4.2, Chloride 105, Carbon Dioxide 24.0, Anion Gap 5, BUN 28 H, Creatinine 0.90, Estim Creat Clear Calc 42.41, Est GFR (MDRD) Af Amer 76, Est GFR (MDRD) Non-Af 63, BUN/Creatinine Ratio 31.2 H, Glucose 148 H, Calcium 8.2 L 05/13/24 12:30: POC Glucose 229 H 05/13/24 17:01: POC Glucose 165 H Micro: Microbiology 05/11/24 02:05 Wound Abcess - Toe Gram Stain - Final 05/11/24 02:05 Wound Abcess - Toe Wound Culture - Final No growth aerobically. 05/10/24 01:36 Urine Catheter - Catheter Urine Culture - Final Culture exhibits no growth. 05/10/24 00:10 Blood Culture (Wb) - Anticubital Left Blood Culture - Preliminary No growth in 48 hours. 05/10/24 00:10 Blood Culture (Wb) - Right Forearm Blood Culture - Preliminary No growth in 48 hours. Radiography Diagnostic Testing: Radiology Impression Foot X-Ray 05/12/24 10:56 IMPRESSION: Intraoperative images of the first toe. Electronically Signed: Dre Richardson DO at 0:23 EST , Foot X-Ray 05/12/24 13:41 IMPRESSION: Interval resection of the head of the first proximal phalanx. Electronically Signed: Hari Dove MD at 9:00 EST , Physical Exam Const alert, oriented x3 and no apparent distress HEENT normocephalic, hearing grossly normal bilaterally, external ears normal and external nose normal Eyes EOMs intact bilaterally General Eye: normal appearance of both eyes Neck General: normal visual inspection and trachea midline Resp normal respiratory effort Effort and Inspection: able to speak in complete sentences; Negative for labored, grunting, stridor or retractions Cardio regular rate and regular rhythm Extremity Extremity Narrative: R foot with postoperative dressing in place Neuro oriented x3, moves all extremities and no focal motor deficits Speech: speech normal Psych Appearance: grossly normal Attitude: calm Activity / Motor Behavior: appropriate eye contact Speech: normal speech Mood & Affect: euthymic mood Assessment & Plan Assessment/Plan (1) Non-pressure chronic ulcer of other part of right foot with fat layer exposed: (2) Peripheral vascular disease, unspecified: PLAN: Plan Arterial studies confirmed severe PAD with insufficient inflow to expect to heal in a diabetic patient. I recommend proceeding with RLE angiogram to try to improve inflow to increase healing potential. Patient requests general anesthesia for angiogram, I explained that we perform this procedure with conscious sedation and that utilizing general anesthesia in this case would add unnecessary risk particularly given her recent cardiac PCI and low EF. We discussed these findings and recommendations at length. We discussed angiogram procedure details including risks, benefits, and expected recovery. I advised that should she wish to seek a second opinion we could assist with a referral but she declined at this time. After discussion, she and her daughter both agreed to proceed with angiogram here. Tentatively planning for RLE angiogram next week, due to holiday likely 05/19. If she is still admitted at that time will perform as inpatient, but from vascular surgical perspective, it is not necessary for her to remain inpatient just for this procedure; if she is otherwise able to be discharged to TCU prior to then can perform as an outpatient. Continue ASA and Plavix. She has been intolerant to statins. Charges/Coding Visit Charges Inpatient E&M: 21994 Subs Hosp L2
[2024-05-14] VITALS (7 sets, daily range): BP systolic 132–146; BP diastolic 52–62; PULSE 59–68; RESP 18; TEMP 35.9–37.5; O2SAT 95–99; BMI 27.5
[2024-05-14] MEDS: Acetaminophen 325 MG Tablet 650 MG PO ×4 (01:01→23:47)
[2024-05-14 01:20] LABS: Bedside Glucose 133 mg/dL (74-106)
[2024-05-14 03:05] LABS: Vancomycin, Trough Level 10.9 ug/mL (5.0-15.0)
--- NOTE | 2024-05-14 03:17 | PCM.RX.CS ---
Consult Antibiotic Management Pharmacy has been consulted to manage selected antibiotic: Vancomycin Type of Intervention Type of Consult: Follow-up Suspected Infection Suspected Infection: Sepsis Labs Labs: Sodium 134 mmol/L (136-145) L 05/13/24 06:19 Potassium 4.2 mmol/L (3.5-5.1) 05/13/24 06:19 Chloride 105 mmol/L (98-107) 05/13/24 06:19 Carbon Dioxide 24.0 mmol/L (21.0-32.0) 05/13/24 06:19 Anion Gap 5 (5-15) 05/13/24 06:19 BUN 28 mg/dL (7-18) H 05/13/24 06:19 Creatinine 0.90 mg/dL (0.55-1.02) 05/13/24 06:19 Est GFR (MDRD) Af Amer 76 mL/min (>60) 05/13/24 06:19 Est GFR (MDRD) Non-Af 63 mL/min (>60) 05/13/24 06:19 BUN/Creatinine Ratio 31.2 RATIO (10-20) H 05/13/24 06:19 Glucose 148 mg/dL (74-106) H 05/13/24 06:19 Vancomycin Trough 10.9 ug/mL (5.0-15.0) 05/14/24 02:16 Microbiology Microbiology: Microbiology 05/11/24 02:05 Wound Abcess - Toe Gram Stain - Final 05/11/24 02:05 Wound Abcess - Toe Wound Culture - Final No growth aerobically. 05/10/24 01:36 Urine Catheter - Catheter Urine Culture - Final Culture exhibits no growth. 05/10/24 00:10 Blood Culture (Wb) - Anticubital Left Blood Culture - Preliminary No growth in 48 hours. 05/10/24 00:10 Blood Culture (Wb) - Right Forearm Blood Culture - Preliminary No growth in 48 hours. Dosing Weight Weight used for dosin.5 kg Estimated Creatinine Clearance Estimated Creatinine Clearance: 42 Goal Trough Goal Trough: 15-20 mcg/mL Pharmacy Plan for Drug Dosing Pharmacy Plan for Drug Dosing: Vancomycin trough level of 10.9, drawn 23.5hrs post-dose, was below the target range of 15-20. Will increase dose to 1500mg q24h, and will draw another trough level in two days. Pharmacy Service will continue to monitor and adjust dosing as required. Follow-Up Labs Follow-Up Labs: Trough: Vancomycin Date/Time Labs Ordered Labs to be done on [date and time ordered]: 05/16/24 @0300
[2024-05-14] MEDS: Vancomycin HCl 1,500 MG in 0.9% Normal Saline (500mL Bag) 500 ML 250 MG IV (03:28)
[2024-05-14 05:50] LABS: Absolute Neutrophil Count 3.5 X10^3/uL (2.0-7.7); Basophil# 0.05 X10^3/uL; Basophil% 0.7 % (0-1); Eosinophil# 0.57 X10^3/uL; Eosinophils% 8.3 % (0-5); Hematocrit 28.8 % (37-47); Hemoglobin 9.5 g/dL (12.0-15.0); Mean Corpuscular Hgb 29.2 pg (27.0-32.0); Mean Corpuscular Volume 88.6 fL (81-99); Mean Platelet Vol. 10.1 fl (6.2-12.0); Monocyte# 0.49 X10^3/uL; Monocyte% 7.1 % (0-10); NRBC Flagged by Analyzer 0 % (0-5); Neutrophil # 3.51 X10^3/uL (2.7-7.7); Platelet Count 311 K/mm3 (150-450); RBC Distribution Width CV 13.6 % (11.6-14.6); RBC Distribution Width SD 44.6 fl (35.1-43.9); Red Blood Count 3.25 M/mm3 (4.2-5.4); White Blood Count 6.9 K/mm3 (4.4-11.0)
[2024-05-14] MEDS: Piperacil/Tazobactam 3.375 GM in 0.9% Normal Saline (50mL MB+) 50 ML IV ×3 (06:24→22:07)
[2024-05-14] MEDS: Metoprolol Tartrate 25 MG Tablet PO ×3 (06:29→20:28)
[2024-05-14] MEDS: 0.9% Saline Lock 10 ML Syringe IV (06:30)
[2024-05-14 06:54] LABS: Bedside Glucose 144 mg/dL (74-106)
[2024-05-14 07:05] LABS: Anion Gap 5 (5-15); BUN 28 mg/dL (7-18); BUN/Creat Ratio 33.9 RATIO (10-20); Calcium,Total 8.3 mg/dL (8.5-10.1); Chloride 106 mmol/L (98-107); Creatinine, Serum 0.83 mg/dL (0.55-1.02); EST Glomerular Filtration Rate 69 mL/min (>60); Est Glom Filt Rate - Afr Amer 84 mL/min (>60); Estimated Creatinine Clearance 45.81 ml/min; Glucose 134 mg/dL (74-106); Potassium 4.3 mmol/L (3.5-5.1); Sodium Level 136 mmol/L (136-145)
--- NOTE | 2024-05-14 10:00 | EKG12_ITS ---
Test Reason : PCI Blood Pressure : */* mmHG Vent. Rate : 64 BPM Atrial Rate : 64 BPM P-R Int : 200 ms QRS Dur : 120 ms QT Int : 450 ms P-R-T Axes : 76 44 55 degrees QTcB Int : 464 ms Normal sinus rhythm Low voltage QRS Right bundle branch block Septal infarct , age undetermined Abnormal ECG When compared with ECG of 13-May-2024 05:06, Septal infarct is now Present Confirmed by JENN HANNON, ELTON ([id number]), technical editor JOSR CAREY ([id number]) on 05/16/2024 8:35:20 AM Referred By: Confirmed By: ELTON BARAJAS MD
[2024-05-14] MEDS: amLODIPine 10 MG Tablet PO (10:07)
[2024-05-14] MEDS: Lisinopril 20 MG Tablet PO ×2 (10:08→20:28)
[2024-05-14] MEDS: Cholecalciferol (VIT D3) 25 MCG TABLET (1,000 UNITS) PO (10:08)
[2024-05-14] MEDS: Clopidogrel Bisulfate 75 MG Tablet PO (10:08)
[2024-05-14] MEDS: Aspirin E.C. 81 MG Tablet PO (10:08)
[2024-05-14] MEDS: Multivitamins,Therapeutic Tablet 1 TABLET PO (12:04)
[2024-05-14] MEDS: Insulin Lispro 100 UNIT/ML INSULN.PEN SC ×2 (12:04→17:18)
--- NOTE | 2024-05-14 12:48 | PN_ITS ---
Subjective Subjective Patient seen and examined. She had no active complaints. Review of systems is otherwise negative. She has remained hemodynamically stable. Objective Data Objective Data Vital Signs: Vital Signs Temp Pulse Resp BP Pulse Ox O2 Del Method O2 Flow Rate 97.6 F L 59 L 18 132/52 H 99 Room Air 3 05/14/24 10:03 05/14/24 10:03 05/14/24 10:03 05/14/24 10:03 05/14/24 10:03 05/14/24 10:03 05/12/24 21:00 Oxygen Flow Rate (L/min) 3 Oxygen Delivery Method Room Air Weight: 160 lb 7.944 oz Body Mass Index (BMI) 27.5 Intake & Output: Intake and Output for Last 24 Hours 05/12/24 05/13/24 05/14/24 23:59 23:59 23:59 Intake Total 350 / 350 550 / 800 1080 / 1080 Output Total 200 / 600 950 / 1600 1000 / 1000 Balance 150 / -250 -400 / -800 80 / 80 Lab / Micro Data 05/14/24 04:20 05/14/24 04:20 Labs: Laboratory Results - last 24 hr 05/13/24 12:30: POC Glucose 229 H 05/13/24 17:01: POC Glucose 165 H 05/14/24 00:59: POC Glucose 133 H 05/14/24 02:16: Vancomycin Trough 10.9 05/14/24 04:20: WBC 6.9, RBC 3.25 L, Hgb 9.5 L, Hct 28.8 L, MCV 88.6, MCH 29.2, MCHC 33.0, RDW Std Deviation 44.6 H, RDW Coeff of Kathy 13.6, Plt Count 311, MPV 10.1, Immature Gran % (Auto) 0.900, Neut % (Auto) 51.0, Lymph % (Auto) 32.0, [place] % (Auto) 7.1, Eos % (Auto) 8.3 H, Baso % (Auto) 0.7, Absolute Neuts (auto) 3.5, Absolute Lymphs (auto) 2.20, Nucleated RBC % 0, Sodium 136, Potassium 4.3, Chloride 106, Carbon Dioxide 24.0, Anion Gap 5, BUN 28 H, Creatinine 0.83, Estim Creat Clear Calc 45.81, Est GFR (MDRD) Af Amer 84, Est GFR (MDRD) Non-Af 69, B UN/Creatinine Ratio 33.9 H, Glucose 134 H, Calcium 8.3 L 05/14/24 06:22: POC Glucose 144 H Micro: Microbiology 05/11/24 02:05 Wound Abcess - Toe Gram Stain - Final 05/11/24 02:05 Wound Abcess - Toe Wound Culture - Final No growth aerobically. 05/10/24 01:36 Urine Catheter - Catheter Urine Culture - Final Culture exhibits no growth. 05/10/24 00:10 Blood Culture (Wb) - Anticubital Left Blood Culture - Preliminary No growth in 48 hours. 05/10/24 00:10 Blood Culture (Wb) - Right Forearm Blood Culture - Preliminary No growth in 48 hours. Physical Exam Const alert, oriented x3, no apparent distress and well nourished General Appearance: cooperative and well developed HEENT normocephalic, head/scalp atraumatic and moist oral mucous membranes Eyes PERRL and EOMs intact bilaterally Neck no lymphadenopathy and supple Lymph Lymphatic: no lymphadenopathy noted and no lymphedema noted Resp normal respiratory effort, normal air movement and clear to auscultation bilaterally Cardio regular rate, regular rhythm, S1 normal heart sound and S2 normal heart sound GI normal to inspection, nondistended, normoactive bowel sounds, soft to palpation, non-tender and non-distended Extremity normal capillary refill, no clubbing, cyanosis or edema and no calf tenderness Extremity Narrative: RLE wrapped in bandage General Extremity: no tenderness to palpation of joints or extremities Skin Skin Narrative: as under extremities. General Skin Exam: no breakdown Neuro CN's II-XII intact bilaterally, no focal motor deficits and no sensory deficits noted Motor Exam: strength 5/5 throughout and general weakness Psych thought process normal, cooperative and affect normal Appearance: appropriate Assessment & Plan Assessment/Plan (1) Acute UTI: (2) Diabetic foot infection: (3) Non-ST elevation [place] (NSTEMI): PLAN: Plan #nonstemi * Initial troponin was 1600 and trended up to over 1999. * 2D echo ordered showed EF of 30% with moderately severe left ventricular systolic dysfunction and hypokinesia of the apex and mid anteroseptal region, consistent with Takotsubo cardiomyopathy. * cardiology on board * EKG did show t wave inversions. Per cardiology, this is likely due to her right bundle branch block * on aspirin, high intensity statin * had cardiac cath which showed left anterior descending artery previously stented with in-stent restenosis of approximately 60 to 70% and moderately severe distal disease as well as 90% proximal stenosis of the first diagonal vessel in the mid 70% stenosis in the left circumflex artery which was dominant with mild irregular rate. She had PCI of the diagonal vessel successfully. * Continue on aspirin and Plavix as well as high intensity statin. Beta- blockers and RAY inhibitors and per cardiology to be eventually switched to Entresto. * #UTI: * Urinalysis shows 2+ bacteria. * Urine culture showed no growth the wound cultures also showed no growth so far. Blood cultures also showed no growth. * Currently on IV vancomycin and Zosyn. #Diabetic foot ulcer * podiatry on board. MRI of the foot showed no evidence of acute osteomyelitis * on IV vancomycin and zosyn * wound cultures show no growth so far * s/p debridement by podiatry on 05/12/2024. #Peripheral artery disease * Vascular surgery on board. Patient had arterial studies which show severe PAD with insufficient fluid to expect to heal in a diabetic patient. Vascular surgery recommends right lower extremity angiogram to improve inflow. * Plan is to have the peripheral angiogram next week likely 05/19/2024. * #Hyperlipidemia: on high intensity statin #CAD s/p stent * on aspirin and plavix as well as high intensity satin #Type 2 diabetes mellitus * on ISS. Accuchecks ACHS. * metformin on hold. * A1C is 7.2. * DVT prophylaxis: heparin Charges/Coding Visit Charges Inpatient E&M: 93964 Subs Hosp L2
[2024-05-14] MEDS: Enoxaparin 40 MG/0.4 ML Syringe SC (14:59)
[2024-05-14] MEDS: oxyCODONE 5 MG Tablet PO ×2 (17:17→23:47)
[2024-05-14 17:30] LABS: Bedside Glucose 272 mg/dL (74-106)
[2024-05-14 17:55] LABS: Bedside Glucose 155 mg/dL (74-106)
[2024-05-14 22:28] LABS: Bedside Glucose 149 mg/dL (74-106)
[2024-05-15] VITALS (7 sets, daily range): BP systolic 142–164; BP diastolic 58–68; PULSE 69–77; RESP 16–18; TEMP 36.5–37.1; O2SAT 94–98; BMI 27.5
[2024-05-15] MEDS: Vancomycin HCl 1,500 MG in 0.9% Normal Saline (500mL Bag) 500 ML 250 MG IV (03:07)
[2024-05-15 04:47] LABS: Absolute Lymphocyte Count 2.81 X10^3/uL (0.83-4.51); Absolute Neutrophil Count 4.8 X10^3/uL (2.0-7.7); Basophil# 0.07 X10^3/uL; Basophil% 0.8 % (0-1); Eosinophil# 0.68 X10^3/uL; Eosinophils% 7.3 % (0-5); Hematocrit 31.1 % (37-47); Lymphocyte # 2.81 X10^3/ul (0.83-4.51); Lymphocyte % 30.2 % (19-41); Mean Corp Hgb Conc 32.2 g/dL (32-36); Mean Corpuscular Hgb 28.5 pg (27.0-32.0); Mean Corpuscular Volume 88.6 fL (81-99); Mean Platelet Vol. 9.6 fl (6.2-12.0); Monocyte# 0.79 X10^3/uL; Monocyte% 8.5 % (0-10); NRBC Flagged by Analyzer 0 % (0-5); Neutrophil # 4.83 X10^3/uL (2.7-7.7); Neutrophil % 51.7 % (47-70); Platelet Count 342 K/mm3 (150-450); RBC Distribution Width CV 13.4 % (11.6-14.6); RBC Distribution Width SD 43.5 fl (35.1-43.9); Red Blood Count 3.51 M/mm3 (4.2-5.4); White Blood Count 9.3 K/mm3 (4.4-11.0)
[2024-05-15 05:22] LABS: Anion Gap 5 (5-15); BUN 24 mg/dL (7-18); Calcium,Total 8.5 mg/dL (8.5-10.1); Chloride 106 mmol/L (98-107); Creatinine, Serum 0.73 mg/dL (0.55-1.02); EST Glomerular Filtration Rate 80 mL/min (>60); Est Glom Filt Rate - Afr Amer 97 mL/min (>60); Glucose 126 mg/dL (74-106); Potassium 4.1 mmol/L (3.5-5.1); Sodium Level 137 mmol/L (136-145)
[2024-05-15] MEDS: Piperacil/Tazobactam 3.375 GM in 0.9% Normal Saline (50mL MB+) 50 ML IV (06:56)
[2024-05-15] MEDS: oxyCODONE 5 MG Tablet PO ×2 (07:58→19:49)
[2024-05-15] MEDS: Lisinopril 20 MG Tablet PO ×2 (09:08→21:55)
[2024-05-15] MEDS: amLODIPine 10 MG Tablet PO (09:08)
[2024-05-15] MEDS: Aspirin E.C. 81 MG Tablet PO (09:08)
[2024-05-15] MEDS: Clopidogrel Bisulfate 75 MG Tablet PO (09:09)
[2024-05-15] MEDS: Cholecalciferol (VIT D3) 25 MCG TABLET (1,000 UNITS) PO (09:09)
[2024-05-15] MEDS: Enoxaparin 40 MG/0.4 ML Syringe SC (09:10)
--- NOTE | 2024-05-15 11:19 | PN_ITS ---
Subjective Subjective Patient seen and examined. She had no active complaints and had a uneventful night. Review of systems otherwise negative. Objective Data Objective Data Vital Signs: Vital Signs Temp Pulse Resp BP Pulse Ox O2 Del Method O2 Flow Rate 97.8 F 74 17 164/58 H 98 Room Air 3 05/15/24 09:05 05/15/24 09:05 05/15/24 09:05 05/15/24 09:05 05/15/24 09:05 05/15/24 09:05 05/12/24 21:00 Oxygen Flow Rate (L/min) 3 Oxygen Delivery Method Room Air Weight: 160 lb 4.417 oz Body Mass Index (BMI) 27.5 Intake & Output: Intake and Output for Last 24 Hours 05/13/24 05/14/24 05/15/24 23:59 23:59 23:59 Intake Total 550 / 800 1180 / 1380 773.33 / 773.33 Output Total 950 / 1600 1600 / 2000 1300 / 1300 Balance -400 / -800 -420 / -620 -526.67 / -526.67 Lab / Micro Data 05/15/24 03:38 05/15/24 03:38 Labs: Laboratory Results - last 24 hr 05/14/24 12:02: POC Glucose 272 H 05/14/24 17:16: POC Glucose 155 H 05/14/24 20:07: POC Glucose 149 H 05/15/24 03:38: WBC 9.3, RBC 3.51 L, Hgb 10.0 L, Hct 31.1 L, MCV 88.6, MCH 28.5, MCHC 32.2, RDW Std Deviation 43.5, RDW Coeff of Kathy 13.4, Plt Count 342, MPV 9.6, Immature Gran % (Auto) 1.500 H, Neut % (Auto) 51.7, Lymph % (Auto) 30.2, [place] % (Auto) 8.5, Eos % (Auto) 7.3 H, Baso % (Auto) 0.8, Absolute Neuts (auto) 4.8, Absolute Lymphs (auto) 2.81, Nucleated RBC % 0, Sodium 137, Potassium 4.1, Chloride 106, Carbon Dioxide 25.0, Anion Gap 5, BUN 24 H, Creatinine 0.73, Estim Creat Clear Calc 47.50, Est GFR (MDRD) Af Amer 97, Est GFR (MDRD) Non-Af 80, B UN/Creatinine Ratio 33.0 H, Glucose 126 H, Calcium 8.5 Micro: Microbiology 05/10/24 00:10 Blood Culture (Wb) - Anticubital Left Blood Culture - Final No growth in 5 days. 05/10/24 00:10 Blood Culture (Wb) - Right Forearm Blood Culture - Final No growth in 5 days. 05/11/24 02:05 Wound Abcess - Toe Gram Stain - Final 05/11/24 02:05 Wound Abcess - Toe Wound Culture - Final No growth aerobically. 05/10/24 01:36 Urine Catheter - Catheter Urine Culture - Final Culture exhibits no growth. Physical Exam Const alert, oriented x3, no apparent distress and well nourished General Appearance: cooperative and well developed HEENT normocephalic, head/scalp atraumatic and moist oral mucous membranes Eyes PERRL and EOMs intact bilaterally Neck no lymphadenopathy and supple Lymph Lymphatic: no lymphadenopathy noted and no lymphedema noted Resp normal respiratory effort, normal air movement and clear to auscultation bilaterally Cardio regular rate, regular rhythm, S1 normal heart sound and S2 normal heart sound GI normal to inspection, nondistended, normoactive bowel sounds, soft to palpation, non-tender and non-distended Extremity Extremity Narrative: RLE wrapped in bandage General Extremity: no tenderness to palpation of joints or extremities Skin Skin Narrative: as under extremities. General Skin Exam: no breakdown Neuro CN's II-XII intact bilaterally, no focal motor deficits and no sensory deficits noted Motor Exam: strength 5/5 throughout and general weakness Psych thought process normal, cooperative and affect normal Appearance: appropriate Assessment & Plan Assessment/Plan (1) Acute UTI: (2) Diabetic foot infection: (3) Non-ST elevation VT (NSTEMI): PLAN: Plan #nonstemi * Initial troponin was 1600 and trended up to over 2000. * 2D echo ordered showed EF of 30% with moderately severe left ventricular systolic dysfunction and hypokinesia of the apex and mid anteroseptal region, consistent with Takotsubo cardiomyopathy. * cardiology on board * EKG did show t wave inversions. Per cardiology, this is likely due to her right bundle branch block * on aspirin, high intensity statin * had cardiac cath which showed left anterior descending artery previously stented with in-stent restenosis of approximately 60 to 70% and moderately severe distal disease as well as 90% proximal stenosis of the first diagonal vessel in the mid 70% stenosis in the left circumflex artery which was dominant with mild irregular rate. She had PCI of the diagonal vessel successfully. * Continue on aspirin and Plavix as well as high intensity statin. * on lisinopril and metoprolol. * #UTI: * Urinalysis shows 2+ bacteria. * Urine culture showed no growth the wound cultures also showed no growth so far. Blood cultures also showed no growth. * Currently on IV vancomycin and Zosyn. * completed 5 days of antibiotics; antibiotics dc'd today #Diabetic foot ulcer * podiatry on board. MRI of the foot showed no evidence of acute osteomyelitis * on IV vancomycin and zosyn * wound cultures show no growth so far * s/p debridement by podiatry on 05/12/2024. * Will DC antibiotics today; has completed 5 days of antibiotics * #Peripheral artery disease * Vascular surgery on board. Patient had arterial studies which show severe PAD with insufficient fluid to expect to heal in a diabetic patient. Vascular surgery recommends right lower extremity angiogram to improve inflow. * Plan is to have the peripheral angiogram next week likely 05/19/2024. * #Hyperlipidemia: on high intensity statin #CAD s/p stent * on aspirin and plavix as well as high intensity satin #Type 2 diabetes mellitus * on ISS. Accuchecks ACHS. * metformin on hold. * A1C is 7.2. * DVT prophylaxis: heparin Disposition: Awaiting placement. Charges/Coding Visit Charges Inpatient E&M: 37268 Subs Hosp L2
[2024-05-15] MEDS: Multivitamins,Therapeutic Tablet 1 TABLET PO (11:38)
[2024-05-15] MEDS: Insulin Lispro 100 UNIT/ML INSULN.PEN SC ×2 (11:39→16:50)
[2024-05-15 12:04] LABS: Bedside Glucose 195 mg/dL (74-106)
[2024-05-15] MEDS: Metoprolol Tartrate 25 MG Tablet PO ×2 (14:44→21:55)
[2024-05-15 17:11] LABS: Bedside Glucose 157 mg/dL (74-106)
[2024-05-15] MEDS: Acetaminophen 325 MG Tablet 650 MG PO (19:48)
[2024-05-15 23:33] LABS: Bedside Glucose 150 mg/dL (74-106)
[2024-05-16] VITALS (7 sets, daily range): BP systolic 149–166; BP diastolic 48–89; PULSE 62–66; RESP 16–18; TEMP 36.5–36.6; O2SAT 94–98; BMI 26.6
[2024-05-16] MEDS: oxyCODONE 5 MG Tablet PO ×2 (04:38→11:34)
[2024-05-16] MEDS: Acetaminophen 325 MG Tablet 650 MG PO ×2 (04:38→11:34)
[2024-05-16] MEDS: Metoprolol Tartrate 25 MG Tablet PO ×2 (04:41→13:53)
[2024-05-16 06:16] LABS: Absolute Lymphocyte Count 2.13 X10^3/uL (0.83-4.51); Absolute Neutrophil Count 5.5 X10^3/uL (2.0-7.7); Basophil# 0.07 X10^3/uL; Basophil% 0.8 % (0-1); Eosinophil# 0.65 X10^3/uL; Hematocrit 32.5 % (37-47); Hemoglobin 10.4 g/dL (12.0-15.0); Lymphocyte # 2.13 X10^3/ul (0.83-4.51); Lymphocyte % 22.8 % (19-41); Mean Corpuscular Hgb 28.5 pg (27.0-32.0); Mean Platelet Vol. 9.2 fl (6.2-12.0); Monocyte# 0.75 X10^3/uL; NRBC Flagged by Analyzer 0 % (0-5); Neutrophil # 5.54 X10^3/uL (2.7-7.7); Neutrophil % 59.4 % (47-70); Platelet Count 409 K/mm3 (150-450); RBC Distribution Width CV 13.7 % (11.6-14.6); Red Blood Count 3.65 M/mm3 (4.2-5.4); White Blood Count 9.3 K/mm3 (4.4-11.0)
[2024-05-16 06:42] LABS: Anion Gap 4 (5-15); BUN 21 mg/dL (7-18); BUN/Creat Ratio 27.7 RATIO (10-20); Calcium,Total 8.9 mg/dL (8.5-10.1); Chloride 103 mmol/L (98-107); Creatinine, Serum 0.76 mg/dL (0.55-1.02); EST Glomerular Filtration Rate 76 mL/min (>60); Est Glom Filt Rate - Afr Amer 92 mL/min (>60); Estimated Creatinine Clearance 46.82 ml/min; Glucose 162 mg/dL (74-106); Potassium 4.2 mmol/L (3.5-5.1); Sodium Level 135 mmol/L (136-145)
[2024-05-16 07:23] LABS: Bedside Glucose 148 mg/dL (74-106)
[2024-05-16] MEDS: Lisinopril 20 MG Tablet PO (09:26)
[2024-05-16] MEDS: Cholecalciferol (VIT D3) 25 MCG TABLET (1,000 UNITS) PO (09:26)
[2024-05-16] MEDS: amLODIPine 10 MG Tablet PO (09:26)
[2024-05-16] MEDS: Aspirin E.C. 81 MG Tablet PO (09:26)
[2024-05-16] MEDS: Enoxaparin 40 MG/0.4 ML Syringe SC (09:26)
[2024-05-16] MEDS: 0.9% Saline Lock 10 ML Syringe IV (09:26)
[2024-05-16] MEDS: Clopidogrel Bisulfate 75 MG Tablet PO (09:26)
--- NOTE | 2024-05-16 09:52 | CASEMGMT ---
Patient was approved by insurance to go to [facility] [place] [facility]. SW will notify physician. Lainey DURAN
--- NOTE | 2024-05-16 10:21 | PCM.PN.SRG ---
Subjective Subjective Mrs Maza is a 88-year-old diabetic female seen at bedside today for dressing change to the right foot. Patient is status post. Debridement of right hallux ulceration to the level of bone, application of advanced wound care product to the right hallux plantar ulcer, debridement of right lateral forefoot ulceration with application advance wound care product, by Dr. Danielito Art. DOS: 05/12/2024. Patient denies any pain to the right foot. She does notice some this colorization of her great toe through the dressing. She denies any trauma or falls. Denies constitutional symptoms. No other pedal complaints at this time. Objective Data Objective Data Vital Signs: Vital Signs Temp Pulse Resp BP Pulse Ox O2 Del Method O2 Flow Rate 97.9 F 62 18 161/89 H 98 Room Air 98 05/16/24 09:25 05/16/24 09:25 05/16/24 09:25 05/16/24 09:25 05/16/24 09:25 05/16/24 09:32 05/16/24 09:32 Oxygen Flow Rate (L/min) 98 Oxygen Delivery Method Room Air Weight: 70.5 kg Body Mass Index (BMI) 26.6 Intake & Output: Intake and Output for Last 24 Hours 05/14/24 05/15/24 05/16/24 23:59 23:59 23:59 Intake Total 1180 / 1380 1623.33 / 2123.33 800 / 800 Output Total 1600 / 2000 1300 / 1300 Balance -420 / -620 323.33 / 823.33 800 / 800 Lab / Micro Data 05/16/24 06:02 05/16/24 06:02 Labs: Laboratory Results - last 24 hr 05/15/24 11:36: POC Glucose 195 H 05/15/24 16:48: POC Glucose 157 H 05/15/24 22:02: POC Glucose 150 H 05/16/24 06:02: WBC 9.3, RBC 3.65 L, Hgb 10.4 L, Hct 32.5 L, MCV 89.0, MCH 28.5, MCHC 32.0, RDW Std Deviation 44.0 H, RDW Coeff of Kathy 13.7, Plt Count 409, MPV 9.2, Immature Gran % (Auto) 2.000 H, Neut % (Auto) 59.4, Lymph % (Auto) 22.8, [place] % (Auto) 8.0, Eos % (Auto) 7.0 H, Baso % (Auto) 0.8, Absolute Neuts (auto) 5.5, Absolute Lymphs (auto) 2.13, Nucleated RBC % 0, Sodium 135 L, Potassium 4.2, Chloride 103, Carbon Dioxide 28.0, Anion Gap 4 L, BUN 21 H, Creatinine 0.76, Estim Creat Clear Calc 46.82, Est GFR (MDRD) Af Amer 92, Est GFR (MDRD) Non-Af 76, BUN/Creatinine Ratio 27.7 H, Glucose 162 H, Calcium 8.9 05/16/24 07:05: POC Glucose 148 H Micro: Microbiology 05/10/24 00:10 Blood Culture (Wb) - Anticubital Left Blood Culture - Final No growth in 5 days. 05/10/24 00:10 Blood Culture (Wb) - Right Forearm Blood Culture - Final No growth in 5 days. 05/11/24 02:05 Wound Abcess - Toe Gram Stain - Final 05/11/24 02:05 Wound Abcess - Toe Wound Culture - Final No growth aerobically. 05/10/24 01:36 Urine Catheter - Catheter Urine Culture - Final Culture exhibits no growth. Physical Exam Narrative Vascular: DP and PT pulses are monophasic on Doppler to right lower extremity. CFT is delayed. Nonpitting edema appreciated to the right lower extremity. Neurological: Light touch is intact. Patient does not respond to painful stimuli. Dermatological: Evidence of coapted incision with suture to the dorsal right hallux that also shows evidence of dry gangrene and duskiness to the right hallux. 2 full-thickness wounds appreciated to the left hallux and subfifth metatarsal with notable granular tissue. No malodor is appreciated to the right foot. Musculoskeletal: No pain on palpation to the right foot. No pain with calf pressure. 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 Assessment & Plan Assessment/Plan (1) Dry gangrene: PLAN: Patient was examined and evaluated. All findings were discussed with the patient. All questions were answered to the patient satisfaction. Patient is status post, Debridement of right hallux ulceration to the level of bone, application of advanced wound care product to the right hallux plantar ulcer, debridement of right lateral forefoot ulceration with application advance wound care product, by Dr. Danielito Art. DOS: 05/12/2024. On Doppler examination at bedside patient shows evidence of monophasic pulses. There is plan for intervention by vascular surgery, Tentatively, right lower extremity angiogram next week , 05/19/2024. After intervention is completed I did educate the patient that there will be plan for possible surgical intervention to the right lower extremity consisting of first ray resection with flap closure, right foot. I did educate the patient that due to her decreased vascular flow to the right lower extremity she is at risk for transmetatarsal amputation versus below-knee amputation. Per the patient she does not want to lose her leg. Medicine: On board, medical management Vascular: On board, plan for right lower extremity angio , 05/19/2024 The right lower extremity was dressed with Betadine paint to the right hallux, Adaptic to the graft sites which was held in place with Steri-Strips, dry sterile dressing and Kerlix with no compression. Orders and for daily dressing changes per nursing staff. From a podiatry perspective, we will plan for surgery after vascular intervention and recommendations from vascular surgery. Dr. Reynoso will continue to follow while the patient is house. Please reach out with any questions or concerns. (2) Non-pressure chronic ulcer of other part of right foot with fat layer exposed: (3) Other specified peripheral vascular diseases:
[2024-05-16] MEDS: Insulin Lispro 100 UNIT/ML INSULN.PEN SC ×2 (11:34→16:32)
[2024-05-16] MEDS: Multivitamins,Therapeutic Tablet 1 TABLET PO (11:34)
[2024-05-16 12:05] LABS: Bedside Glucose 282 mg/dL (74-106)
--- NOTE | 2024-05-16 15:34 | TREXTCAR_ITS ---
Diet Diet Order/Speech Therapy: 05/12/24 15:46 Diet: Cardiac - Heart Healthy Dietary Modifications:: Consistent Carbohydrate Type of Dietary Supplement:: Darci Diet Comments: Darci with breakfast and dinner Routine Orders/Code Status Routine Lab Work: - (Fingerstick blood sugars AC nightly, coverage using Humalog subcu per scale: 200-250: 5 units, 251-300: 8 units, 301-350: 12 units, 351-400: 15 units) Code Status: Full Code DC O2, CPAP, BIPAP needs Home O2 Discharge instructions: No Wound(s) RIGHT BIG TOE: Wound Type: Surgical Incision Dressing Change: betadine with dry dressing right lateral foot: Wound Type: Neuropathic/Diabetic Foot Ulcer Dressing Change: betadine with dry dressing right lateral heel: Wound Type: fissure Dressing Change: dry, well padded dressing Left Femoral: Wound Type: Puncture right foot: Wound Type: Surgical Incision Therapies Physical Therapy: Eval and Treat Occupational Therapy: Eval and Treat Problem/Diagnosis (1) Dry gangrene: Status: Acute Code(s): I96 - Gangrene, not elsewhere classified (2) Non-pressure chronic ulcer of other part of right foot with fat layer exposed: Status: Chronic Code(s): L97.512 - Non-pressure chronic ulcer of other part of right foot with fat layer exposed Comment: Lateral forefoot (3) Other specified peripheral vascular diseases: Status: Chronic Code(s): I73.89 - Other specified peripheral vascular diseases (4) Type 2 diabetes mellitus with foot ulcer: Status: Chronic Code(s): E11.621 - Type 2 diabetes mellitus with foot ulcer; L97.509 - Non-pressure chronic ulcer of other part of unspecified foot with unspecified severity (5) Peripheral vascular disease, unspecified: Status: Chronic Code(s): I73.9 - Peripheral vascular disease, unspecified (6) Acute UTI: Status: Acute Code(s): N39.0 - Urinary tract infection, site not specified (7) Non-ST elevation [place] (NSTEMI): Status: Acute Code(s): I21.4 - Non-ST elevation (NSTEMI) myocardial infarction (8) Presence of coronary angioplasty implant and graft: Status: Acute Code(s): Z95.5 - Presence of coronary angioplasty implant and graft Comment: PCI/stent to LAD 2007; PCI/GUDELIA to instent restenosis of the LAD 07/04/11; Successful PTCA alone of proximal and ostial diagonal 1 05/11/2024 (9) Diabetic foot infection: Status: Acute Code(s): E11.628 - Type 2 diabetes mellitus with other skin complications; L08.9 - Local infection of the skin and subcutaneous tissue, unspecified Allergies/Procedures Done in Hospital Allergies pravastatin Adverse Reaction (Severe, Verified 02/03/24 10:00) myalgias Qvaiumc-EOP-PnG Reductase Inhibitor Adverse Reaction (Severe, Verified 02/03/24 10:00) myalgias Sulfa (Sulfonamide Antibiotics) Adverse Reaction (Mild, Verified 02/03/24 10:00) stomach upset atorvastatin Adverse Reaction (Verified 02/03/24 10:00) myalgias Procedures: - (PTCA of proximal and ostial diagonal 1, debridement of right hallux ulceration to level of bone, debridement of right lateral forefoot ulceration) Type of Care/Length of Stay Estimated LOS: Convalescent Care Less Than 30 days Type of Care Needed: Skilled Rehab Potential: Good Prognosis: Good Additional Orders/Day of Discharge H&P will serve as current which was dated: 05/10/24 Day of Discharge: 05/16/24 Dietary and Speech Recommendations Dietitian Recommendations/Changes: Will adjust diet to 1600 calorie/consistent carbohydrate; cardiac. Will add Darci BID w/ breakfast and dinner tray. Discharge Plan Admission Admit Date/Time: 05/10/24 01:55 Primary Reason for Your Visit: Neuropathic ulceration right great toe with associated peripheral vascular, Attending Provider: Sarbjit Moreno Primary Care Provider: Valencia Mitchell Consulting Providers: Joe Jefferson; Haris Petty; Danielito Art; Keanu Mccray; Radha Jones; Sarbjit Moreno Discharge Orders/Prescriptions Prescriptions: New acetaminophen 325 mg Tablet 650 mg PO Q6H PRN PRN (Reason: Pain 1-10 Or Fever) Qty: 0 0RF aspirin 81 mg Tablet,Delayed Release (Dr/Ec) 81 mg PO DAILY@0800 Qty: 0 0RF oxycodone 5 mg Tablet 5 mg PO Q6H PRN PRN (Reason: Pain Score 4-10) 4 Days Qty: 7 0RF enoxaparin 40 mg/0.4 mL Syringe 40 mg subcut DAILY Qty: 0 0RF Continued multivitamin Tablet 1 tab PO DAILY metoprolol tartrate 25 mg tablet 25 mg PO TID lisinopril 20 mg tablet 20 mg PO BID metformin 500 mg tablet extended release 24 hr 500 mg PO BID cholecalciferol (vitamin D3) [Vitamin D3] 25 mcg (1,000 unit) tablet 25 mcg PO DAILY nitroglycerin 0.4 mg tablet, sublingual 0.4 mg SUBLINGUAL Q5-15M PRN (Reason: chest pain) Qty: 25 3RF clopidogrel 75 MG tablet 75 mg PO DAILY amlodipine 10 mg tablet 10 mg PO DAILY Discontinued Ultra CoQ10 75 mg capsule 75 mg PO QDAY aspirin 81 MG tablet,chewable 81 mg PO QHS acetaminophen [Tylenol Extra Strength] 500 mg tablet 500 mg PO Q6H PRN (Reason: pain) Qty: 20 0RF Referrals / Follow Up: Haris Petty MD [Med Staff - Active Staff] - See Referral Note (call for follow up appointment) Valencia Mitchell NP-C [Primary Care Provider] - Disposition Disposition (needs filled in before D/C Order can be placed): Long Term Facility
--- NOTE | 2024-05-16 16:11 | CASEMGMT ---
SW went to patient's room. Introduced self and role at [facility]. Patient is aware she is going to TCU today. SW asked if she would like SW to call anyone in her family. Patient said family already knows and she will call her granddaughter when she goes over. Plan: d/c to [facility] TCU under skilled level of care. Lainey DURAN
[2024-05-16 17:02] LABS: Bedside Glucose 199 mg/dL (74-106)
--- NOTE | 2024-05-16 17:16 | PCM.DC.SUM ---
Providers Date of Admission: 05/10/24 Date of Discharge: 05/16/24 Primary Care Physician: SHANIQUE Carrizales Consultations 05/10/24 02:38 Consult: Cardiology Routine Consulting Provider: Haris Petty Reason for Consult: NSTEMI in the setting of sepsis EMERGENT Consult: No MD Notified: Yes Date Notified: 05/10/24 Time Notified: 01:57 Method of Notification: Text Comments:: Call in AM Consult: Podiatry Routine Consulting Provider: Danielito Art Reason for Consult: Right big toe infection EMERGENT Consult: No MD Notified: Yes Date Notified: 05/10/24 Time Notified: 01:58 Method of Notification: Answering Service Comments:: Call in am 05/11/24 08:39 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 Comment: Reason for Consult:: Stasis Ulcers 05/11/24 15:22 Consult: Vascular Surgery Routine Consulting Provider: Keanu Mccray Reason for Consult: Evaluate vascular status d/t poor study from September EMERGENT Consult: No MD Notified: Yes Date Notified: 05/11/24 Time Notified: 15:30 Method of Notification: per office Reason For Visit: SEPSIS Diagnosis Discharge Diagnosis (1) Dry gangrene: Status: Acute Code(s): I96 - Gangrene, not elsewhere classified (2) Non-pressure chronic ulcer of other part of right foot with fat layer exposed: Status: Chronic Code(s): L97.512 - Non-pressure chronic ulcer of other part of right foot with fat layer exposed (3) Other specified peripheral vascular diseases: Status: Deleted Code(s): I73.89 - Other specified peripheral vascular diseases (4) Type 2 diabetes mellitus with foot ulcer: Status: Deleted Code(s): E11.621 - Type 2 diabetes mellitus with foot ulcer; L97.509 - Non-pressure chronic ulcer of other part of unspecified foot with unspecified severity (5) Peripheral vascular disease, unspecified: Status: Deleted Code(s): I73.9 - Peripheral vascular disease, unspecified (6) Acute UTI: Status: Deleted Code(s): N39.0 - Urinary tract infection, site not specified (7) Non-ST elevation [place] (NSTEMI): Status: Acute Code(s): I21.4 - Non-ST elevation (NSTEMI) myocardial infarction (8) Presence of coronary angioplasty implant and graft: Status: Acute Code(s): Z95.5 - Presence of coronary angioplasty implant and graft (9) Diabetic foot infection: Status: Deleted Code(s): E11.628 - Type 2 diabetes mellitus with other skin complications; L08.9 - Local infection of the skin and subcutaneous tissue, unspecified Plan 1. 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 #5 peripheral vascular disease #6 type 2 diabetes #7 coronary artery disease #8 hyperlipidemia #9 ischemic cardiomyopathy Medications at Discharge Home Medications clopidogrel 75 mg tablet 75 mg PO DAILY platelet inhibitor 06/07/16 multivitamin 1 tab PO DAILY SUPPLEMENT 04/28/19 lisinopril 20 mg tablet 20 mg PO BID BP 01/01/21 metoprolol tartrate 25 mg tablet 25 mg PO TID BP 01/01/21 metformin 500 mg tablet,extended release 24 hr 500 mg PO BID DM 07/01/21 cholecalciferol (vitamin D3) 25 mcg (1,000 unit) tablet (Vitamin D3) 25 mcg PO DAILY SUPPLEMENT 09/26/21 nitroglycerin 0.4 mg sublingual tablet 0.4 mg sublingual Q5-15M PRN chest pain #25 tabs 02/12/23 amlodipine 10 mg tablet 10 mg PO DAILY bp 11/12/23 acetaminophen 325 mg tablet 650 mg (2 x 325 mg) PO Q6H PRN PRN Pain 1-10 Or Fever #0 tabs 05/16/24 aspirin 81 mg tablet,delayed release 81 mg PO DAILY@0800 [facility] #0 tabs 05/16/24 enoxaparin 40 mg/0.4 mL subcutaneous syringe 40 mg (0.4 mL) subcut DAILY DVT prophylaxis #0 mL 05/16/24 oxycodone 5 mg tablet 5 mg PO Q6H PRN PRN Pain Score 4-10 4 days #7 tabs 05/16/24 Hospital Course Operations - (Debridement of right hallux ulceration to the level of the bone, debridement of right lateral forefoot ulceration) Procedures 2-D Echocardiogram and Cardiac catheterization Summary of Care Provided Minutes Spent on Discharge: 31 Hospital Course: This 88-year-old white female was seen in the emergency room at [facility] after sustaining a syncopal episode at home. Workup in the emergency room included an EKG which showed a sinus rhythm 79 with new T wave inversions in the anterior leads. There was also noted to be a chronic right bundle branch block. Labs showed an elevated white blood cell count of 16.2, lactic acid was 2.4, C-reactive protein was elevated at 92. Troponin was noted to be elevated at 1687, aspirin was given to the patient and heparin drip was started, patient was placed on Zosyn and vancomycin IV and the patient was admitted to PCU. Patient was seen in consultation by cardiology and podiatry. Patient underwent a cardiac catheterization which showed occlusive disease in the proximal and ostial diagonal 1 area, a successful PTCA was performed. Echocardiogram showed a 30% ejection fraction. Podiatry performed surgery on the patient on 05/12/2024 for a right hallux ulceration and right lateral foot ulceration. Patient had no complications from her surgery. Patient was seen by PT and OT, it was recommended the patient go to an extended care facility for short-term rehab services. TCU accepted the patient. On 05/16/2024, patient was seen and examined: On examination she appeared in good health and spirits, she does not appear to be in any distress. Vital signs as documented. Skin warm and dry and without overt rashes. Neck without JVD, thyroid appears normal, trachea is midline, neck is supple. Lungs clear, normal air movement was noted. Heart exam notable for regular rhythm, normal sounds and absence of murmurs, rubs or gallops. Abdomen unremarkable and without evidence of organomegaly, masses, or abdominal aortic enlargement, bowel sounds are present in all 4 quadrants, no abdominal tenderness was noted. Extremities nonedematous, no cyanosis was noted, no clubbing was noted. Neuro: Cranial nerves II through XII are grossly intact, no focal motor deficits were noted, sensation to light touch and pinprick is intact, motor exam 5/5 throughout. Psych: Patient is alert and oriented x3, she does not appear anxious or depressed, she does not appear agitated. Patient appears stable for discharge to TCU on 05/16/2024. Weight / BMI Weight Weight: 70.5 kg Body Mass Index (BMI) 26.6 ABG / Lab / Microbiology Data 05/16/24 06:02 05/16/24 06:02 Laboratory: Laboratory Results - last 24 hr 05/15/24 22:02: POC Glucose 150 H 05/16/24 06:02: WBC 9.3, RBC 3.65 L, Hgb 10.4 L, Hct 32.5 L, MCV 89.0, MCH 28.5, MCHC 32.0, RDW Std Deviation 44.0 H, RDW Coeff of Kathy 13.7, Plt Count 409, MPV 9.2, Immature Gran % (Auto) 2.000 H, Neut % (Auto) 59.4, Lymph % (Auto) 22.8, [place] % (Auto) 8.0, Eos % (Auto) 7.0 H, Baso % (Auto) 0.8, Absolute Neuts (auto) 5.5, Absolute Lymphs (auto) 2.13, Nucleated RBC % 0, Sodium 135 L, Potassium 4.2, Chloride 103, Carbon Dioxide 28.0, Anion Gap 4 L, BUN 21 H, Creatinine 0.76, Estim Creat Clear Calc 46.82, Est GFR (MDRD) Af Amer 92, Est GFR (MDRD) Non-Af 76, BUN/Creatinine Ratio 27.7 H, Glucose 162 H, Calcium 8.9 05/16/24 07:05: POC Glucose 148 H 05/16/24 11:30: POC Glucose 282 H 05/16/24 16:31: POC Glucose 199 H Microbiology: Microbiology 05/10/24 00:10 Blood Culture (Wb) - Anticubital Left Blood Culture - Final No growth in 5 days. 05/10/24 00:10 Blood Culture (Wb) - Right Forearm Blood Culture - Final No growth in 5 days. 05/11/24 02:05 Wound Abcess - Toe Gram Stain - Final 05/11/24 02:05 Wound Abcess - Toe Wound Culture - Final No growth aerobically. 05/10/24 01:36 Urine Catheter - Catheter Urine Culture - Final Culture exhibits no growth. Radiography Diagnostic Testing: Radiology Impression Ankle Brachial Index 05/12/24 11:21 Interpretation Summary Right JENY 0.93, artificially elevated. Doppler/PVR waveforms of the right ankle severely diminished at rest. Left JENY 0.49, severe arterial insufficiency. Doppler/PVR waveforms of the left ankle severely diminished at rest. Ordering Physician: Desi Mcpherson Referring Physician: Valencia Mitchell Performed By: Valencia Perez RDSATHYA/RVT Duplex Scan Lower Extremity Artery 05/12/24 11:21 Interpretation Summary Right lower extremity arteries with monophasic waveforms throughout. Right common femoral artery patent with >75% stenosis. Right anterior tibial artery patent with 50-75% stenosis proximal. Limited visualization of posterior tibial and peroneal arteries. Ordering Physician: Desi Mcpherson Referring Physician: Valencia Mitchell Performed By: Beka Jeffrey RVT D/C Instructions DC O2, CPAP, BIPAP Needs Home O2 Discharge instructions: No Meaningful Use Info Meaningful Use Meaningful Use Diagnoses (Choose all that apply): AMI AMI/Post PCI/Angioplasty Aspirin given w/in 24hrs of arrival?: Yes ASA at discharge?: Yes Antiplatelet Therapy at Discharge:: Yes Statins at discharge?: Yes Pedro/ARB at discharge?: Yes Beta Perfecto at discharge?: Yes Done w/ Acute [place] measure.: Yes Documented LVEF (%): 30 Ischemic Stroke Statin Dosing Therapy Reference: STATIN DOSE THERAPY REFERENCE: * Patients > 75 years receive moderate or high dose statin therapy. * Patients 75 years or YOUNGER should receive HIGH intensity statin dose unless contraindicated. You will be required to document reason for non-treatment if statin daily dose does not meet guidelines. HIGH DOSE STATIN THERAPY DAILY Atorvastatin > than or = to 40 mg Rosuvastatin > than or = to 20 mg Amlodipine + Atorvastatin > than or = to 2.5/40 mg Ezetimibe + Simvastatin 10/80 mg Simvastatin 80mg Discharge Plan Admission Admit Date/Time: 05/10/24 01:55 Primary Reason for Your Visit: Neuropathic ulceration right great toe with associated peripheral vascular, Attending Provider: Sarbjit Moreno Primary Care Provider: Valencia Mitchell Consulting Providers: Joe Jefferson; Haris Petty; Danielito Art; Keanu Mccray; Radha Jones; Sarbjit Moreno Discharge Orders/Prescriptions Prescriptions: New acetaminophen 325 mg Tablet 650 mg PO Q6H PRN PRN (Reason: Pain 1-10 Or Fever) Qty: 0 0RF aspirin 81 mg Tablet,Delayed Release (Dr/Ec) 81 mg PO DAILY@0800 Qty: 0 0RF oxycodone 5 mg Tablet 5 mg PO Q6H PRN PRN (Reason: Pain Score 4-10) 4 Days Qty: 7 0RF enoxaparin 40 mg/0.4 mL Syringe 40 mg subcut DAILY Qty: 0 0RF Continued multivitamin Tablet 1 tab PO DAILY metoprolol tartrate 25 mg tablet 25 mg PO TID lisinopril 20 mg tablet 20 mg PO BID metformin 500 mg tablet extended release 24 hr 500 mg PO BID cholecalciferol (vitamin D3) [Vitamin D3] 25 mcg (1,000 unit) tablet 25 mcg PO DAILY nitroglycerin 0.4 mg tablet, sublingual 0.4 mg SUBLINGUAL Q5-15M PRN (Reason: chest pain) Qty: 25 3RF clopidogrel 75 MG tablet 75 mg PO DAILY amlodipine 10 mg tablet 10 mg PO DAILY Discontinued Ultra CoQ10 75 mg capsule 75 mg PO QDAY aspirin 81 MG tablet,chewable 81 mg PO QHS acetaminophen [Tylenol Extra Strength] 500 mg tablet 500 mg PO Q6H PRN (Reason: pain) Qty: 20 0RF Referrals / Follow Up: Haris Petty MD [Med Staff - Active Staff] - See Referral Note (call for follow up appointment) Valencia Mitchell NP-C [Primary Care Provider] - Disposition Disposition (needs filled in before D/C Order can be placed): [facility] Facility Charges/Coding Visit Charges Inpatient E&M: 11865 Disch Hosp >30min
== END 2024-05-16 18:21 | disposition skilled nursing facility (03) | DRG 622 ==
LOC: ED 22:49 → ICU 05-10 02:02 → PCU 05-10 18:25
PROVIDERS: Student in an Organized Health Care Education/Training Program; Admitting Provider Family Medicine; Emergency Provider Emergency Medicine; PCP Nurse Practitioner Family; Visit Provider Internal Medicine
PROC: 0JBQ0ZZ Excision of Right Foot Subcutaneous Tissue and Fascia, Open Approach (ICD-10-PCS; principal; 2024-05-12 11:45)
DX: E11.621 Type 2 diabetes mellitus with foot ulcer (principal); I21.4 Non-ST elevation (NSTEMI) myocardial infarction; I50.21 Acute systolic (congestive) heart failure; T82.855A Stenosis of coronary artery stent, initial encounter; E11.52 Type 2 diabetes mellitus with diabetic peripheral angiopathy with gangrene; L03.115 Cellulitis of right lower limb; N30.00 Acute cystitis without hematuria; J44.9 Chronic obstructive pulmonary disease, unspecified; I11.0 Hypertensive heart disease with heart failure; L97.513 Non-pressure chronic ulcer of other part of right foot with necrosis of muscle; E78.5 Hyperlipidemia, unspecified; I25.10 Atherosclerotic heart disease of native coronary artery without angina pectoris; E11.628 Type 2 diabetes mellitus with other skin complications; E11.42 Type 2 diabetes mellitus with diabetic polyneuropathy; I25.5 Ischemic cardiomyopathy; L97.512 Non-pressure chronic ulcer of other part of right foot with fat layer exposed; Z89.421 Acquired absence of other right toe(s); X58.XXXA Exposure to other specified factors, initial encounter; Z95.5 Presence of coronary angioplasty implant and graft; Z79.02 Long term (current) use of antithrombotics/antiplatelets; Z79.82 Long term (current) use of aspirin; Z79.84 Long term (current) use of oral hypoglycemic drugs; Z79.899 Other long term (current) drug therapy; Z86.73 Personal history of transient ischemic attack (TIA), and cerebral infarction without residual deficits; Z87.891 Personal history of nicotine dependence
CPT/HCPCS: 36415; 70450; 71046; 73620; 73630; 73720; 76000; 80048; 80053; 80202; 81001; 82962; 83036; 83605; 84145; 84484; 85025; 85347; 85610; 85652; 85730; 86140; 87040; 87070; 87086; 87205; 88304; 88311; 92920; 93005; 93306; 93458; 93922; 93926; 94762; 97110; 97162; 97166; 97530; 97535; 97802; 99152; 99153; 99285; A9575; C1894; Q9957; Q9967; A4216; C1725; C1769; C1887; C8929; J2405

== ENCOUNTER 2024-05-16 18:42 | Inpatient (IN) | payer MEDICARE, SELFPAY ==
[2024-05-16 19:00] VITALS: BMI 25.6
[2024-05-16 19:02] VITALS: BP 161/55; PULSE 65; RESP 17; TEMP 36.7; O2SAT 90
[2024-05-16 20:00] VITALS: PULSE 65; RESP 16; O2SAT 97
[2024-05-16 20:45] VITALS: BP 156/58; PULSE 68
[2024-05-16] MEDS: Metoprolol Tartrate 25 MG Tablet PO (20:45)
[2024-05-16] MEDS: oxyCODONE 5 MG Tablet PO (20:45)
[2024-05-16] MEDS: Lisinopril 20 MG Tablet PO (20:47)
[2024-05-17] MEDS: oxyCODONE 5 MG Tablet PO ×2 (02:54→21:04)
[2024-05-17 06:21] VITALS: BP 167/59; PULSE 71
[2024-05-17] MEDS: Metoprolol Tartrate 25 MG Tablet PO ×3 (06:21→21:03)
[2024-05-17 06:47] LABS: Bedside Glucose 137 mg/dL (74-106)
[2024-05-17 07:43] LABS: Absolute Neutrophil Count 4.7 X10^3/uL (2.0-7.7); Basophil# 0.11 X10^3/uL; Basophil% 1.2 % (0-1); Eosinophil# 0.64 X10^3/uL; Eosinophils% 7.1 % (0-5); Hematocrit 34.6 % (37-47); Hemoglobin 11.2 g/dL (12.0-15.0); Lymphocyte % 28.9 % (19-41); Mean Corp Hgb Conc 32.4 g/dL (32-36); Mean Corpuscular Hgb 29.4 pg (27.0-32.0); Mean Corpuscular Volume 90.8 fL (81-99); Mean Platelet Vol. 9.3 fl (6.2-12.0); Monocyte# 0.83 X10^3/uL; Monocyte% 9.2 % (0-10); NRBC Flagged by Analyzer 0 % (0-5); Neutrophil # 4.67 X10^3/uL (2.7-7.7); Platelet Count 486 K/mm3 (150-450); RBC Distribution Width SD 44.7 fl (35.1-43.9); Red Blood Count 3.81 M/mm3 (4.2-5.4)
[2024-05-17 08:13] LABS: Anion Gap 5 (5-15); BUN 17 mg/dL (7-18); Calcium,Total 9.1 mg/dL (8.5-10.1); Chloride 105 mmol/L (98-107); Creatinine, Serum 0.63 mg/dL (0.55-1.02); EST Glomerular Filtration Rate 95 mL/min (>60); Est Glom Filt Rate - Afr Amer 115 mL/min (>60); Glucose 133 mg/dL (74-106); Sodium Level 138 mmol/L (136-145)
[2024-05-17] MEDS: metFORMIN (XR) 500 MG Tablet PO ×2 (08:27→16:51)
[2024-05-17] MEDS: Multivitamins,Therapeutic Tablet 1 TABLET PO (08:27)
[2024-05-17] MEDS: Aspirin E.C. 81 MG Tablet PO (08:27)
[2024-05-17] MEDS: Enoxaparin 40 MG/0.4 ML Syringe SC (08:27)
[2024-05-17] MEDS: Cholecalciferol (VIT D3) 25 MCG TABLET (1,000 UNITS) PO (08:28)
[2024-05-17] MEDS: Clopidogrel Bisulfate 75 MG Tablet PO (08:28)
[2024-05-17] MEDS: Lisinopril 20 MG Tablet PO ×2 (08:28→21:03)
[2024-05-17] MEDS: amLODIPine 10 MG Tablet PO (08:28)
[2024-05-17] MEDS: Tuberculin,Purif.prot.deriv. 50 TU/ML Vial 0.1 ML ID (10:36)
[2024-05-17] MEDS: 0.9% Saline Lock 10 ML Syringe IV (10:36)
--- NOTE | 2024-05-17 11:40 | HP.PCM_ITS ---
HPI - General General Date of Admission: 05/16/24 Date of Service: 05/17/24 Chief Complaint: Debility HPI Narrative GENTRY COBB, is a 88-year-old F with a past medical history of TIA, CVA, alcohol abuse, anxiety, restless leg syndrome, COPD, bilateral carotid stenosis, osteomyelitis of the left foot, gangrene of the left foot, tobacco dependence in remission, claudication, peripheral vascular disease, diabetes mellitus type 2, coronary artery disease, hypertension, hyperlipidemia who presented to the ED at [facility] on 05/10/24 after a ground level fall in her BR. She was c/o pain in the R foot. Lab revealed leukocytosis with an elevated CRP but a normal ESR. She was noted to have T wave inversions on her EKG and a troponin was ordered and was markedly elevated at 1600. She was started on a heparin drip and the hospitalist service was called for admission. Physical exam was significant for a swollen right foot/great toe with erythema and eschar. Cardiology was consulted and she underwent a cardiac catheterization on 05/11/2024. She was found to have a 90% occlusion of the first diagonal and underwent balloon angioplasty with stenosis 60% postintervention. Podiatry was consulted for the right foot infection. Plain x-rays and MRI were both negative for signs of osteomyelitis. She was taken to surgery on 05/12/2024 for debridement of the right hallux ulceration to the level of bone and debridement of the right lateral forefoot ulceration. Consultation was obtained with Dr. Mccray from vascular surgery because of peripheral vascular disease. Lower extremity arterial studies were done and revealed severe peripheral arterial disease with insufficient inflow to expect healing. Vascular surgery recommended a right lower extremity angiogram to try to improve inflow to increase healing potential. Angiogram is planned for 05/23/24 per nursing. She was discharge to the transitional unit on 05/16/2024 for strengthening and to await angiogram. She received 5 days of vancomycin and Zosyn in the hospital and antibiotics were not continued at discharge to TCU. [facility] Medical History (Updated 05/17/24 @ 16:[address] Henrietta Howell DO) Stenosis of right subclavian artery Normochromic normocytic anemia Incomplete prolapse of vaginal vault Non-pressure chronic ulcer of other part of left foot with fat layer exposed GI bleed 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 without evidence of necrosis Cellulitis of left toe Syncope Hematoma of frontal scalp Non-pressure chronic ulcer of other part of left foot with necrosis of bone Ulcer of left foot with bone involvement without evidence of necrosis Preoperative cardiovascular examination Carotid stenosis Aftercare following surgery of the circulatory system Syncope TIA (transient ischemic attack) Stroke/cerebrovascular accident Wears eyeglasses Depression Anxiety Alcohol abuse History of restless legs syndrome Hx of syncope Dietary restriction Difficulty swallowing Hx of heartburn COPD (chronic obstructive pulmonary disease) Hx of shortness of breath Hx of edema Hx of echocardiogram Hx of cardiovascular stress test Carotid stenosis Wears dentures Ambulates with cane Arthritis Easy bruising Prolapsed bladder Former smoker Cardiology follow-up encounter Cellulitis of left thigh Post-op pain Ischaemic rest pain of lower extremity Open wound of left foot Cellulitis of left foot Amputated toe Rectocele Cystocele Presence of stent in coronary artery (~07/04/11) Essential hypertension RBBB (right bundle branch block) Atherosclerotic heart disease of [place] coronary artery without angina pectoris HTN (hypertension) Osteoarthritis Diabetes Hyperlipidemia Carotid stenosis, bilateral BBB (bundle branch block) PAD (peripheral artery disease) Home Medications ?Medication ?Instructions ?Recorded ?Last Taken ?Type clopidogrel 75 mg tablet 75 mg PO DAILY platelet inhibitor 06/07/16 04/28/23 History multivitamin 1 tab PO DAILY SUPPLEMENT 04/28/19 04/28/23 History lisinopril 20 mg tablet 20 mg PO BID BP 01/01/21 04/28/23 History metoprolol tartrate 25 mg tablet 25 mg PO TID BP 01/01/21 04/28/23 History metformin 500 mg tablet,extended 500 mg PO BID DM 07/01/21 04/28/23 History release 24 hr cholecalciferol (vitamin D3) 25 25 mcg PO DAILY SUPPLEMENT 09/26/21 04/28/23 History mcg (1,000 unit) tablet (Vitamin D3) nitroglycerin 0.4 mg sublingual 0.4 mg sublingual Q5-15M PRN chest 02/12/23 Unknown Rx tablet pain #25 tabs amlodipine 10 mg tablet 10 mg PO DAILY bp 11/12/23 Unknown History acetaminophen 325 mg tablet 650 mg (2 x 325 mg) PO Q6H PRN PRN 05/16/24 Unknown Rx Pain 1-10 Or Fever #0 tabs aspirin 81 mg tablet,delayed 81 mg PO DAILY@0800 [facility] 05/16/24 Unknown Rx release #0 tabs enoxaparin 40 mg/0.4 mL 40 mg (0.4 mL) subcut DAILY DVT 05/16/24 Unknown Rx subcutaneous syringe prophylaxis #0 mL oxycodone 5 mg tablet 5 mg PO Q6H PRN PRN Pain Score 05/16/24 Unknown Rx 4-10 4 days #7 tabs Allergy/AdvReac Type Severity Reaction Status Date / Time pravastatin AdvReac Severe myalgias Verified 02/03/24 10:00 [id number] Reductase AdvReac Severe myalgias Verified 02/03/24 10:00 Inhibitor Sulfa (Sulfonamide AdvReac Mild stomach Verified 02/03/24 10:00 Antibiotics) upset atorvastatin AdvReac myalgias Verified 02/03/24 10:00 Family History Father Diabetes Heart disease Brother Diabetes Colon cancer Brother Diabetes Surgical History (Updated 05/17/24 @ 16:[address] Henrietta Howell DO) Hx of toe surgery S/P bladder repair History of colonoscopy History of tonsillectomy Cataract extraction status of right eye Presence of coronary angioplasty implant and graft (~05/11/24) History of hemorrhoidectomy History of left-sided carotid endarterectomy Status post peripheral artery angioplasty History of heart artery stent History of hysterectomy Social History Smoking Status: Current some day smoker tobacco type: cigarettes and cigars how long ago did patient quit smokin + years ago alcohol intake: current alcohol intake frequency: a few times a month Alcohol type: wine substance use type: does not use caffeine: Yes Type: coffee Number of servings: 2 what type of physical activity do you participate in: walking seatbelt use: always do you feel safe at home: Yes ROS Constitutional Constitutional: Reports weakness; Denies anorexia, change in weight, chills, fatigue, fever(s) or night sweats Eyes Eyes: Denies blurry vision, change in vision, eye pain or loss of vision ENT HEENT: Denies abnormal hearing, dysphagia, headache(s), hearing loss, nasal congestion or sore throat Cardiovascular Cardiovascular: Denies chest pain, dyspnea on exertion, edema, lightheadedness, orthopnea, palpitations, paroxysmal nocturnal dyspnea or syncope Respiratory/Chest Respiratory/Chest: Denies cough, dyspnea, shortness of breath at rest, shortness of breath with exertion or wheezing Gastrointestinal Gastrointestinal: Denies abdominal pain, constipation, diarrhea, dyspepsia, hematemesis, hematochezia, nausea or vomiting Genitourinary Genitourinary: Denies dysuria, hematuria, nocturia, urinary frequency, urinary hesitancy, urinary incontinence or urinary urgency Musculoskeletal Musculoskeletal: Reports difficulty walking, extremity pain, numbness and other Details: She has increased pain/burning in the bilateral lower extremities when she is in bed and this gets better when she swings her legs over to the side of the bed. ; Denies back pain, joint pain, joint swelling or neck pain Integumentary Integumentary: Denies jaundice, pruritus or rash Neurologic Neurologic: Reports confusion; Denies disequilibrium, dizziness, focal weakness, headache(s), paresthesias, seizures or tremor(s) Psychiatric Psychiatric: Denies anxiety, depression, homicidal ideation or suicidal ideation Endocrine Endocrinology: Denies change in body appearance, polydipsia or polyuria Hematologic/Lymphatic Hematologic/Lymphatic: Denies easy bleeding, easy bruising or lymphadenopathy Allergic/Immunologic Allergic/Immunologic: Denies rhinitis, eczemia or asthma Vital Signs Vital Signs Vital Signs: 05/16/24 19:02 05/16/24 20:00 05/16/24 20:45 Temperature 98.1 F Temperature Source Temporal Pulse Rate 65 65 68 Pulse Rhythm Regular Pulse Strength Normal (2+) Respiratory Rate 17 16 Respiratory Effort Normal Non-Labored Respiratory Depth Normal Respiratory Pattern Normal Blood Pressure 161/55 H 156/58 H Blood Pressure Mean 90 Blood Pressure Source Monitor Pulse Ox 90 97 Oxygen Delivery Method Room Air Room Air 05/17/24 06:21 Temperature Temperature Source Pulse Rate 71 Pulse Rhythm Pulse Strength Respiratory Rate Respiratory Effort Respiratory Depth Respiratory Pattern Blood Pressure 167/59 H Blood Pressure Mean Blood Pressure Source Pulse Ox Oxygen Delivery Method Weight Weight: 149 lb 8 oz Body Mass Index (BMI) 25.6 Physical Exam Const alert and no apparent distress Constitutional Narrative: Sitting in the recliner at the bedside with her legs dependent. General Appearance: cooperative and well kempt HEENT head/scalp atraumatic and hearing grossly normal bilaterally HEENT Narrative: Mucous membranes are dry tongue is coated with a whitish-brown coating. Eyes PERRL, EOMs intact bilaterally, conjunctivae normal and no scleral icterus Eyes Narrative: No discharge from the eyes. General Eye: normal appearance of both eyes Neck supple Neck Narrative: Positive carotid bruit on the left. Carotid pulses are diminished bilaterally, especially on the left. I do not hear a right carotid bruit General: trachea midline Chest Chest: symmetrical chest wall rise Resp normal respiratory effort, normal air movement, no use of accessory muscles and clear to auscultation bilaterally Resp Narrative: Excellent air exchange. Effort and Inspection: able to speak in complete sentences Cardio regular rate, regular rhythm, S1 normal heart sound, S2 normal heart sound, no murmurs, no rub and no gallops Cardio Narrative: No ectopy GI normal to inspection, nondistended, normoactive bowel sounds, soft to palpation and non-tender GI Narrative: No guarding with palpation. No abdominal bruits heard. Extremity no calf tenderness Extremity Narrative: Right foot has a dressing in place. The right great toe is very dusky/black/dry. Dorsalis pedis and posterior tibial pulses are very weak bilaterally. 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 Skin Skin Narrative: No rashes. Neuro oriented x3, CN's II-XII intact bilaterally and moves all extremities Psych Appearance: grossly normal, appropriate and well kempt Attitude: calm Activity / Motor Behavior: appropriate eye contact Results Lab / Micro Data 05/17/24 06:47 05/17/24 06:47 Labs: Laboratory Results - last 24 hr 05/17/24 06:09: POC Glucose 137 H 05/17/24 06:47: WBC 9.0, RBC 3.81 L, Hgb 11.2 L, Hct 34.6 L, MCV 90.8, MCH 29.4, MCHC 32.4, RDW Std Deviation 44.7 H, RDW Coeff of Kathy 14.0, Plt Count 486 H, MPV 9.3, Immature Gran % (Auto) 1.600 H, Neut % (Auto) 52.0, Lymph % (Auto) 28.9, [place] % (Auto) 9.2, Eos % (Auto) 7.1 H, Baso % (Auto) 1.2 H, Absolute Neuts (auto) 4.7, Absolute Lymphs (auto) 2.60, Nucleated RBC % 0, Sodium 138, Potassium 4.0, Chloride 105, Carbon Dioxide 28.0, Anion Gap 5, BUN 17, Creatinine 0.63, Estim Creat Clear Calc 46.00, Est GFR (MDRD) Af Amer 115, Est GFR (MDRD) Non-Af 95, BUN/Creatinine Ratio 27.0 H, Glucose 133 H, Calcium 9.1 Assessment & Plan Assessment/Plan (1) Physical debility: (2) 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 Art 05/12/2024. (5) Sepsis: QUALIFIERS: Sepsis type: sepsis due to unspecified organism S epsis acute organ dysfunction status: without acute organ dysfunction Qualified Code(s): A41.9 - Sepsis, unspecified organism (6) Atherosclerosis of [place] arteries of extremities with gangrene, right leg: (7) Osteomyelitis: QUALIFIERS: Osteomyelitis type: subacute Osteomyelitis location: foot Laterality: left Qualified Code(s): M86.272 - Subacute osteomyelitis, left ankle and foot PLAN: Ruled out on MRI (8) Non-ST elevation NM (NSTEMI): (9) Thrombocytosis: (10) Normochromic normocytic anemia: (11) Dry gangrene: (12) Presence of coronary angioplasty implant and graft: (13) Type 2 diabetes mellitus with diabetic polyneuropathy: QUALIFIERS: Diabetes mellitus long term care administrator insulin use: without care home use Qualified Code(s): E11.42 - Type 2 diabetes mellitus with diabetic polyneuropathy (14) Essential hypertension: (15) PAD (peripheral artery disease): (16) Stenosis of right subclavian artery: PLAN: Plan PLAN PT for gait stability OT for ADL's Analgesics as needed Bowel protocol Fall precautions Assess for Anxiety/Depression GI prophylaxis -not necessary at this time. She denies epigastric pain, nausea, heartburn. DVT prophylaxis with enoxaparin 40 mg subcu daily Follow up with podiatry, vascular surgery, PCP, cardiology following DC from TCU AM lab including CMP, CBC, Mag and Phos-all personally reviewed Placed in reverse Trendelenburg (feet tilted down from the head) when she is in bed. Continue to monitor blood sugars before meals and at bedtime and adjust insulin as needed. [place] sliding insulin scale Plan is for angiogram on 05/23/2024 Continue aspirin and Plavix in light of recent NSTEMI and balloon angioplasty. She lists statins as allergy and list the allergy is myalgia. The LDL in December was 162. Will defer treatment of hyperlipidemia to cardiology. Charges/Coding Visit Charges Inpatient E&M: 14627 [facility] Subs L2
--- NOTE | 2024-05-17 12:42 | NURSING ---
Dry Cleaner Hand Note; Activity Asset: Complete Sofia is independent in her choice of daily activities. She enjoys talking w/other however prefers in room activities at this time. Her children and grand children will visits weekly. Sofia also likes to be called Rukhsana. Rukhsana watches tv, reads, enjoys adventist and word puzzles. She welcomes visits w/the spa associate and therapy dog when available. Staff will encourage group, remind her of weekly activities and respect his right to say no.
[2024-05-17 14:11] VITALS: PULSE 66; RESP 16; TEMP 36.7; O2SAT 100
[2024-05-17 14:17] VITALS: BMI 24.8
[2024-05-17 14:39] VITALS: BP 122/54; PULSE 66
--- NOTE | 2024-05-17 15:07 | WOUNDNOTE ---
wound photo: right foot
--- NOTE | 2024-05-17 15:08 | WOUNDNOTE ---
wound photo: right foot
[2024-05-17 18:16] LABS: Bedside Glucose 146 mg/dL (74-106)
[2024-05-17 21:03] VITALS: BP 149/50; PULSE 64
[2024-05-17] MEDS: Insulin Lispro 100 UNIT/ML INSULN.PEN SC (21:05)
[2024-05-17 21:14] LABS: Bedside Glucose 157 mg/dL (74-106)
[2024-05-18] MEDS: 0.9% Saline Lock 10 ML Syringe IV ×2 (06:08→20:49)
[2024-05-18 06:15] VITALS: BP 166/70; PULSE 76
[2024-05-18] MEDS: oxyCODONE 5 MG Tablet PO ×2 (06:15→20:24)
[2024-05-18] MEDS: Metoprolol Tartrate 25 MG Tablet PO ×3 (06:15→20:23)
[2024-05-18 06:19] LABS: Bedside Glucose 112 mg/dL (74-106)
[2024-05-18] MEDS: Aspirin E.C. 81 MG Tablet PO (08:37)
[2024-05-18] MEDS: amLODIPine 10 MG Tablet PO (08:38)
[2024-05-18] MEDS: metFORMIN (XR) 500 MG Tablet PO ×2 (08:38→17:12)
[2024-05-18] MEDS: Multivitamins,Therapeutic Tablet 1 TABLET PO (08:38)
[2024-05-18] MEDS: Clopidogrel Bisulfate 75 MG Tablet PO (08:39)
[2024-05-18] MEDS: Cholecalciferol (VIT D3) 25 MCG TABLET (1,000 UNITS) PO (08:39)
[2024-05-18] MEDS: Lisinopril 20 MG Tablet PO ×2 (08:40→20:24)
[2024-05-18] MEDS: Enoxaparin 40 MG/0.4 ML Syringe SC (08:40)
[2024-05-18 08:45] VITALS: BP 145/45; PULSE 60; O2SAT 99
[2024-05-18] MEDS: Insulin Lispro 100 UNIT/ML INSULN.PEN SC ×2 (11:54→20:48)
[2024-05-18 13:07] VITALS: BP 137/49; PULSE 66
[2024-05-18 13:09] VITALS: BP 137/49; PULSE 66; O2SAT 99
[2024-05-18 16:00] VITALS: RESP 20; TEMP 36.6
[2024-05-18 17:25] LABS: Bedside Glucose 95 mg/dL (74-106)
--- NOTE | 2024-05-18 19:36 | NURSING ---
Daughter and listed contact, Jessie, at bedside. She has questions regarding initiation of insulin. Educated on the desired effects of insulin. Informed angiogram is scheduled for 05/24 and explained prep. Resident and daughter verbalize understanding.
[2024-05-18 20:23] VITALS: BP 141/50; PULSE 68
[2024-05-18 21:20] LABS: Bedside Glucose 153 mg/dL (74-106)
[2024-05-18 21:50] LABS: Bedside Glucose 165 mg/dL (74-106)
--- NOTE | 2024-05-18 22:15 | NURSING ---
Daughter, Jessie, calls in to ask again about the rationale for use of insulin. Repeated the same information as per previous note when daughter was present in room earlier this evening. All questions answered and she verbalizes understanding.
[2024-05-18] MEDS: Acetaminophen 325 MG Tablet 650 MG PO (23:56)
[2024-05-19] VITALS (7 sets, daily range): BP systolic 136–168; BP diastolic 46–53; PULSE 63–67; RESP 16; TEMP 36.6; O2SAT 96–99
[2024-05-19] MEDS: Metoprolol Tartrate 25 MG Tablet PO ×3 (05:37→22:09)
[2024-05-19 06:43] LABS: Bedside Glucose 110 mg/dL (74-106)
[2024-05-19 07:00] LABS: Bedside Glucose 102 mg/dL (74-106)
[2024-05-19] MEDS: oxyCODONE 5 MG Tablet PO ×3 (08:07→22:09)
[2024-05-19] MEDS: Aspirin E.C. 81 MG Tablet PO (08:09)
[2024-05-19] MEDS: amLODIPine 10 MG Tablet PO (08:09)
[2024-05-19] MEDS: metFORMIN (XR) 500 MG Tablet PO ×2 (08:09→17:32)
[2024-05-19] MEDS: Clopidogrel Bisulfate 75 MG Tablet PO (08:09)
[2024-05-19] MEDS: Multivitamins,Therapeutic Tablet 1 TABLET PO (08:09)
[2024-05-19] MEDS: Cholecalciferol (VIT D3) 25 MCG TABLET (1,000 UNITS) PO (08:10)
[2024-05-19] MEDS: Enoxaparin 40 MG/0.4 ML Syringe SC (08:10)
[2024-05-19] MEDS: Lisinopril 20 MG Tablet PO ×2 (08:10→22:09)
[2024-05-19] MEDS: Hydrocortisone 2.5% Ointment 20 gm tube 1 APPLIC TOPICAL (10:06)
[2024-05-19] MEDS: 0.9% Saline Lock 10 ML Syringe IV (10:15)
[2024-05-19 12:01] LABS: Bedside Glucose 132 mg/dL (74-106)
--- NOTE | 2024-05-19 13:20 | WOUNDNOTE ---
Pt currently out of the room.
--- NOTE | 2024-05-19 16:29 | CASEMGMT ---
Social Work SW met with pt and granddgt Ayla and completed assessment. Pt confirms that code status is full code. SW updated pt that advance directives are not on file and requested they be brought in for scanning into the medical record. SW educated pt to [facility] benefit and that NRD is 05/19 and continued stay is not guaranteed. Pt lives at home with her daughter and son in law Alejandra and Corky Reyes. Pt stating that her dgt Alejandra recently had a stroke and is recovering and unable to assist pt with care needs. Corky provides assist with cooking and cleaning. Pt's granddgt Ayla does help with grocery shopping, transportation and laundry. Pt plans to return to Alejandra's home at dc but will need to be as independent as possible. SW to continue to follow for dc planning. MERI King
--- NOTE | 2024-05-19 17:07 | NURSING ---
ISATU Willett called, new order to hold lovenox x2 days 05/23 & 05/24 for vascular procedure in recyclable materials sorter on 05/24 @ 0930. NPO after MN 05/24.
--- NOTE | 2024-05-19 17:42 | PCM.PN.DRR ---
TCU RX Drug Regimen Review Subjective/Objective Subjective/Objective Subjective: TCU admission note. 8 YOF to TCU with below PMH, s/p fall and NSTEMI s/p balloon and also with debridement of right lateral forefoot ulceration with planned further angiogram of right lower extremity. Admitted to TCU for strengthening and rehabilitation prior to discharge. Objective: Allergies pravastatin Adverse Reaction (Severe, Verified 02/03/24 10:00) myalgias [id number] Reductase Inhibitor Adverse Reaction (Severe, Verified 02/03/24 10:00) myalgias Sulfa (Sulfonamide Antibiotics) Adverse Reaction (Mild, Verified 02/03/24 10:00) stomach upset atorvastatin Adverse Reaction (Verified 02/03/24 10:00) myalgias Current Medications Generic Name Dose Route Start Last Admin Trade Name Freq PRN Reason Stop Dose Admin Acetaminophen 650 mg 05/16/24 18:39 05/18/24 23:56 Acetaminophen 325 Mg Tablet PO 650 mg Q6H PRN PRN Administration Pain 1-10 Or Fever Amlodipine Besylate 10 mg 05/17/24 10:00 05/19/24 08:09 Amlodipine 10 Mg Tablet PO 10 mg DAILY ALEXANDER Administration Protocol Aspirin 81 mg 05/17/24 08:00 05/19/24 08:09 Aspirin E.C. 81 Mg Tablet PO 81 mg DAILY@0800 ALEXANDER Administration Cholecalciferol 25 mcg 05/17/24 10:00 05/19/24 08:10 Cholecalciferol (Vit D3) 25 Mcg Tablet (1,000 Units) PO 25 mcg DAILY ALEXANDER Administration Clopidogrel Bisulfate 75 mg 05/17/24 10:00 05/19/24 08:09 Clopidogrel Bisulfate 75 Mg Tablet PO 75 mg DAILY ALEXANDER Administration Enoxaparin Sodium 40 mg 05/17/24 10:00 05/19/24 08:10 Enoxaparin 40 Mg/0.4 Ml Syringe SC 40 mg DAILY ALEXANDER Administration Hydrocortisone 1 applic 05/19/24 09:03 05/19/24 10:06 Hydrocortisone 2.5% Ointment 20 Gm Tube TOPICAL 1 applic BID PRN PRN Administration Rash/Topical Irritation/prurit Protocol Hydrocortisone Acetate 25 mg 05/19/24 09:03 Hydrocortisone 25 Mg Suppository RC BID PRN PRN HEMORRHOIDS Insulin Human Lispro 0 unit 05/17/24 22:00 05/19/24 17:30 Insulin Lispro 100 Unit/Ml Insuln.Pen SC Not Given ACHS [facility] Protocol Lisinopril 20 mg 05/16/24 22:00 05/19/24 08:10 Lisinopril 20 Mg Tablet PO 20 mg BID [facility] Administration Protocol Metformin HCl 500 mg 05/17/24 08:00 05/19/24 17:32 Metformin (Xr) 500 Mg Tablet PO 500 mg BIDCM ALEXANDER Administration Metoprolol Tartrate 25 mg 05/16/24 22:00 05/19/24 14:18 Metoprolol Tartrate 25 Mg Tablet PO 25 mg TID [facility] Administration Protocol Multivitamins 1 tablet 05/17/24 10:00 05/19/24 08:09 Multivitamins,Therapeutic Tablet PO 1 tablet DAILY ALEXANDER Administration Nitroglycerin 0.4 mg 05/16/24 19:00 Nitroglycerin (Inpatient Use) 0.4 Mg Tab.Subl SL Q5M PRN CARDIAC/CHEST PAIN Oxycodone HCl 5 mg 05/16/24 18:39 05/19/24 15:52 Oxycodone 5 Mg Tablet PO 5 mg Q6H PRN PRN Administration Pain Score 4-10 Sodium Chloride 10 - 40 ml 05/16/24 18:58 05/19/24 10:15 0.9% Saline Lock 10 Ml Syringe IV 10 ml UD PRN Administration SALINE FLUSH Tuberculin PPD 0.1 ml 05/24/24 10:00 Tuberculin,Purif.Prot.Deriv. 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 (Acute) Essential hypertension (Chronic) PAD (peripheral artery disease) (Chronic) Vital Signs Temp Pulse Resp BP Pulse Ox O2 Del Method 97.9 F 65 20 H 136/46 H 98 Room Air 05/18/24 16:00 05/19/24 14:19 05/18/24 16:00 05/19/24 14:19 05/19/24 14:19 05/19/24 14:19 Oxygen Delivery Method Room Air Weight: 65.952 kg Body Mass Index (BMI) 24.8 Sodium 138 mmol/L (136-145) 05/17/24 06:47 Potassium 4.0 mmol/L (3.5-5.1) 05/17/24 06:47 Chloride 105 mmol/L (98-107) 05/17/24 06:47 Carbon Dioxide 28.0 mmol/L (21.0-32.0) 05/17/24 06:47 Anion Gap 5 (5-15) 05/17/24 06:47 BUN 17 mg/dL (7-18) 05/17/24 06:47 Creatinine 0.63 mg/dL (0.55-1.02) 05/17/24 06:47 Est GFR (MDRD) Af Amer 115 mL/min (>60) 05/17/24 06:47 Est GFR (MDRD) Non-Af 95 mL/min (>60) 05/17/24 06:47 BUN/Creatinine Ratio 27.0 RATIO (10-20) H 05/17/24 06:47 Glucose 133 mg/dL (74-106) H 05/17/24 06:47 Assessment/Plan: 1. Pain: acetaminophen 650 mg PO Q6H PRN pain, oxycodone 5 mg PO Q6H PRN pain. The patient has used 1 dose of acetaminophen and 7 doses of oxycodone so far this admission. Please continue to monitor for PRN medication usage, pain levels, LFTs (AST/ALT = 52/25 U/L on 05/12/24), for respiratory depression, drowsiness/dizziness and for syncope/ataxia/falls. The patient has required multiple doses of oxycodone so far this admission. Please consider schedule acetaminophen 1000 mg PO Q8H to try to stay ahead of the patient's pain and avoid as many PRN doses of oxycodone as possible. 2. DVT prophylaxis: enoxaparin 40 mg SC daily. Please continue to monitor for s/s of a DVT such as pain/erythema/edema in an extremity, for s/s of bleeding/excessive bruising, renal function (serum creatinine = 0.63 mg/dL with creatine clearance ~ 46 mL/min on 05/17/24), hemoglobin levels (Hgb = 11.2 g/dL on 05/17/24), and platelet count (Plt = 486 K/mm3 on 05/17/24). 3. NSTEMI s/s balloon angioplasty/Hypertension: aspirin 81 mg PO daily, clopidogrel 75 mg PO daily, metoprolol tartrate 25 mg PO TID, amlodipine 10 mg PO daily, lisinopril 20 mg PO BID, nitroglycerin 0.4 mg PO Q5M PRN chest pain. The patient has not required any PRN doses of nitroglycerin so far this admission. Please continue to monitor for chest pain, shortness of breath, blood pressures (recent range = 122-168/45-70 mmHg), heart rates (recent range = 63-71 beats/min), for s/s of bleeding/excessive bruising, platelet counts (Plt = 486 K/mm3 on 05/17/24), for lower extremity edema, renal function (serum creatinine = 0.63 mg/dL with creatine clearance ~ 46 mL/min on 05/17/24), potassium levels (K = 4.0 mmol/L on 05/17/24), sodium levels (Na = 138 mmol/L on 05/17/24), for dry cough, for s/s of angioedema, for for lower extremity edema, and for PRN medication usage. The patient has continued to have elevated blood pressure readings over the past several days. Please consider adding another blood pressure medication such as hydralazine 25 mg PO BID to the patient's blood pressure regimen. 4. Diabetes Mellitus II: insulin lispro sliding scale with meals and at bedtime, metformin 500 mg XR PO BID with meals. The patient has used a total of 4 units of sliding scale insulin so far this admission but mostly has not needed a correction. Please continue to monitor blood glucose levels (recent range = 95-165 mg/dL), hemoglobin A1C levels (A1C = 7.2% on 05/11/24), renal function (serum creatinine = 0.63 mg/dL with creatine clearance ~ 46 mL/min and GFR = 95 mL/min on 05/17/24), for GI distress with metformin administration and vitamin B12 levels (B12 = 1002 pg/mL on 03/10/22). 5. Hemorrhoids: hydrocortisone 25 mg PA BID PRN hemorrhoids. The patient has not required any PRN doses of hydrocortisone so far this admission. Please continue to monitor for PRN medication usage and for hemorrhoid pain. 6. Vitamin D deficiency: cholecalciferol 25 mcg PO daily. Please continue to monitor for s/s of vitamin D deficiency and vitamin D levels (Vitamin D = 47.2 ng/mL on 09/17/23). 7. Nutrition: multivitamin 1 tablet PO daily. Please continue to monitor overall nutritional status. 8. Rash/itching: hydrocortisone 2.5% cream 1 application topically BID PRN rash/itching. The patient has used 1 application of hydrocortisone so far this admission. Please continue to monitor for topical rash/itching and for PRN medication usage. Assessment/Plan for indications treated with psychotropic medications: NA Medical chart and medication regimen reviewed. The following medication irregularities or issues were identified: 1. NSTEMI s/s balloon angioplasty/Hypertension: aspirin 81 mg PO daily, clopidogrel 75 mg PO daily, metoprolol tartrate 25 mg PO TID, amlodipine 10 mg PO daily, lisinopril 20 mg PO BID, nitroglycerin 0.4 mg PO Q5M PRN chest pain. The patient has continued to have elevated blood pressure readings over the past several days. Please consider adding another blood pressure medication such as hydralazine 25 mg PO BID to the patient's blood pressure regimen. Date Date of Note: 05/19/24
[2024-05-19 17:48] LABS: Bedside Glucose 117 mg/dL (74-106)
[2024-05-19 21:42] LABS: Bedside Glucose 133 mg/dL (74-106)
[2024-05-20] MEDS: oxyCODONE 5 MG Tablet PO ×2 (05:45→19:32)
[2024-05-20 05:46] VITALS: BP 167/56; PULSE 80
[2024-05-20] MEDS: Metoprolol Tartrate 25 MG Tablet PO ×3 (05:46→22:44)
[2024-05-20 06:56] LABS: Bedside Glucose 127 mg/dL (74-106)
[2024-05-20] MEDS: Enoxaparin 40 MG/0.4 ML Syringe SC (08:27)
[2024-05-20] MEDS: metFORMIN (XR) 500 MG Tablet PO ×2 (08:28→16:53)
[2024-05-20] MEDS: Aspirin E.C. 81 MG Tablet PO (08:28)
[2024-05-20] MEDS: Multivitamins,Therapeutic Tablet 1 TABLET PO (08:28)
[2024-05-20] MEDS: Cholecalciferol (VIT D3) 25 MCG TABLET (1,000 UNITS) PO (08:29)
[2024-05-20] MEDS: Lisinopril 20 MG Tablet PO ×2 (08:29→22:46)
[2024-05-20] MEDS: Clopidogrel Bisulfate 75 MG Tablet PO (08:29)
[2024-05-20] MEDS: amLODIPine 10 MG Tablet PO (08:29)
[2024-05-20 11:54] LABS: Bedside Glucose 148 mg/dL (74-106)
[2024-05-20 13:52] VITALS: PULSE 72
[2024-05-20] MEDS: Acetaminophen 325 MG Tablet 650 MG PO (14:44)
[2024-05-20 16:00] VITALS: BP 137/44; PULSE 68; RESP 16; TEMP 36.3; O2SAT 97
--- NOTE | 2024-05-20 16:41 | CASEMGMT ---
Social Work Insurance issued NRD of 05/26 with PLASTIC SHEETING CUTTER of 05/29. Phone call to pt dgt Jessie and notified of this. Jessie confirms dc plan will be for pt to return home with pt dgdaren Roberts and Corky Reyes. SW to continue to follow for dc planning. MERI King
[2024-05-20 21:40] LABS: Bedside Glucose 148 mg/dL (74-106)
[2024-05-20 22:36] VITALS: BP 149/50; PULSE 69
[2024-05-20] MEDS: 0.9% Saline Lock 10 ML Syringe IV (22:39)
[2024-05-20 22:44] VITALS: BP 149/50; PULSE 69
[2024-05-20 22:45] VITALS: BP 149/50; PULSE 69
[2024-05-20] MEDS: hydrALAZINE 25 MG Tablet PO (22:45)
[2024-05-21] VITALS (8 sets, daily range): BP systolic 154–168; BP diastolic 49–62; PULSE 71–96; RESP 16; TEMP 37.2; O2SAT 95–97
[2024-05-21] MEDS: Metoprolol Tartrate 25 MG Tablet PO ×3 (05:02→21:27)
[2024-05-21 06:22] LABS: Bedside Glucose 111 mg/dL (74-106)
[2024-05-21] MEDS: metFORMIN (XR) 500 MG Tablet PO ×2 (08:04→17:04)
[2024-05-21] MEDS: hydrALAZINE 25 MG Tablet PO ×2 (08:04→21:23)
[2024-05-21] MEDS: Aspirin E.C. 81 MG Tablet PO (08:04)
[2024-05-21] MEDS: Enoxaparin 40 MG/0.4 ML Syringe SC (08:05)
[2024-05-21] MEDS: amLODIPine 10 MG Tablet PO (08:05)
[2024-05-21] MEDS: Multivitamins,Therapeutic Tablet 1 TABLET PO (08:05)
[2024-05-21] MEDS: Lisinopril 20 MG Tablet PO ×2 (08:06→21:29)
[2024-05-21] MEDS: Clopidogrel Bisulfate 75 MG Tablet PO (08:06)
[2024-05-21] MEDS: Cholecalciferol (VIT D3) 25 MCG TABLET (1,000 UNITS) PO (08:06)
[2024-05-21 11:32] LABS: Bedside Glucose 138 mg/dL (74-106)
[2024-05-21] MEDS: oxyCODONE 5 MG Tablet PO ×2 (14:03→21:33)
[2024-05-21] MEDS: 0.9% Saline Lock 10 ML Syringe IV ×2 (14:03→21:22)
[2024-05-21 16:36] LABS: Bedside Glucose 117 mg/dL (74-106)
[2024-05-21] MEDS: Menthol/Lanolin/Calamine/Znox 113 GM Tube 1 APPLIC TOPICAL (21:32)
[2024-05-21 21:37] LABS: Bedside Glucose 127 mg/dL (74-106)
[2024-05-22] VITALS (8 sets, daily range): BP systolic 137–157; BP diastolic 43–61; PULSE 72–86; RESP 18; TEMP 37.2; O2SAT 95
[2024-05-22] MEDS: Metoprolol Tartrate 25 MG Tablet PO ×3 (05:18→20:03)
[2024-05-22 06:36] LABS: Bedside Glucose 120 mg/dL (74-106)
[2024-05-22 06:36] LABS: Bedside Glucose 94 mg/dL (74-106)
[2024-05-22] MEDS: metFORMIN (XR) 500 MG Tablet PO ×2 (07:51→17:50)
[2024-05-22] MEDS: Aspirin E.C. 81 MG Tablet PO (07:51)
[2024-05-22] MEDS: Enoxaparin 40 MG/0.4 ML Syringe SC (07:52)
[2024-05-22] MEDS: hydrALAZINE 25 MG Tablet PO ×2 (07:52→20:05)
[2024-05-22] MEDS: Multivitamins,Therapeutic Tablet 1 TABLET PO (07:53)
[2024-05-22] MEDS: Clopidogrel Bisulfate 75 MG Tablet PO (07:53)
[2024-05-22] MEDS: amLODIPine 10 MG Tablet PO (07:53)
[2024-05-22] MEDS: Cholecalciferol (VIT D3) 25 MCG TABLET (1,000 UNITS) PO (07:53)
[2024-05-22] MEDS: Lisinopril 20 MG Tablet PO ×2 (07:54→20:04)
[2024-05-22] MEDS: Menthol/Lanolin/Calamine/Znox 113 GM Tube 1 APPLIC TOPICAL ×2 (07:57→20:04)
[2024-05-22 11:35] LABS: Bedside Glucose 201 mg/dL (74-106)
[2024-05-22] MEDS: Insulin Lispro 100 UNIT/ML INSULN.PEN SC (12:26)
[2024-05-22] MEDS: 0.9% Saline Lock 10 ML Syringe IV (14:13)
[2024-05-22 16:31] LABS: Bedside Glucose 107 mg/dL (74-106)
--- NOTE | 2024-05-22 18:22 | NURSING ---
Patient reports she was more tired today and not feeling well. On further discussion, patient reports she feels like she just doesn't care about anything and that this feeling started the night of 05/21 and that she has never felt this way before. This nurse asks if patient feels sick at all of if she feels down, and patient reports she just feels mentally down about her health and all the medications she's on. This nurse provides support and understanding and patient denies further needs and does not want doctor to evaluate her for antidepressants at this time. She reports she feels hopeful for tomorrow and getting back to therapy and something to occupy her time. Daughter comes to nurse's station and asks about patient's labs and was concerned she has an infections since BS was slightly elevated at lunch. This nurse reassures that most recent WBC count was WNL and elevated BS was isolated incident because patient had crackers before lunch and last several BS levels have not needed insulin coverage. Daughter also reports they heard patient had gangrene on 05/21 and we discussed how they were both very concerned by this and that hearing this started patient feeling concerned about future. This nurse reassured that patient received surgery to remove tissue and that she will see the doctor on 05/24 and they will get more answers on healing at this time. Daughter reassured and same information provided patient and they deny further questions or concerns at this time.
[2024-05-22] MEDS: oxyCODONE 5 MG Tablet PO (20:02)
[2024-05-22 21:54] LABS: Bedside Glucose 144 mg/dL (74-106)
[2024-05-23 04:58] VITALS: BP 154/63; PULSE 89
[2024-05-23 05:00] VITALS: BP 154/63; PULSE 89
[2024-05-23] MEDS: Metoprolol Tartrate 25 MG Tablet PO ×3 (05:00→21:45)
--- NOTE | 2024-05-23 06:14 | NURSING ---
Patient c/o bothersome intermittent dry cough, updated via communication board for order.
[2024-05-23 06:46] LABS: Bedside Glucose 133 mg/dL (74-106)
[2024-05-23] MEDS: Aspirin E.C. 81 MG Tablet PO (08:05)
[2024-05-23] MEDS: metFORMIN (XR) 500 MG Tablet PO ×2 (08:05→17:37)
[2024-05-23 08:06] VITALS: BP 137/50; PULSE 79
[2024-05-23] MEDS: hydrALAZINE 25 MG Tablet PO ×2 (08:06→21:45)
[2024-05-23] MEDS: amLODIPine 10 MG Tablet PO (08:06)
[2024-05-23] MEDS: Multivitamins,Therapeutic Tablet 1 TABLET PO (08:06)
[2024-05-23] MEDS: Cholecalciferol (VIT D3) 25 MCG TABLET (1,000 UNITS) PO (08:07)
[2024-05-23] MEDS: Lisinopril 20 MG Tablet PO ×2 (08:07→21:45)
[2024-05-23] MEDS: Clopidogrel Bisulfate 75 MG Tablet PO (08:07)
[2024-05-23] MEDS: Menthol/Lanolin/Calamine/Znox 113 GM Tube 1 APPLIC TOPICAL ×2 (08:09→21:46)
--- NOTE | 2024-05-23 08:54 | NURSING ---
Advisory Software Engineer Note; MDS for 05/23/2024 Complete
[2024-05-23] MEDS: oxyCODONE 5 MG Tablet PO ×2 (10:13→21:45)
--- NOTE | 2024-05-23 10:46 | NURSING ---
Offered covid vaccine, VIS provided. Resident declines at this time.
[2024-05-23 11:11] VITALS: BP 131/46; PULSE 74; RESP 16; TEMP 36.9; O2SAT 96
[2024-05-23 11:27] LABS: Bedside Glucose 117 mg/dL (74-106)
--- NOTE | 2024-05-23 13:25 | WOUNDNOTE ---
IKE Andersen had changed the dressing to the right foot. will leave intact. pt is scheduled for an angiogram tomorrow with Dr Mccray.
--- NOTE | 2024-05-23 15:01 | CASEMGMT ---
Social Work SW completed BIMS () and (12/18) for MDS assessment. SW explored positive responses. Pt has these feelings since incident leading to hospitalization. Though, pt reports she does enjoy reading the Bible and playing solitaire when she feels like it. Pt is remaining optimistic with participating in therapy and hopeful with returning home. SW offered ongoing supportive visits. OLU FergusonW
[2024-05-23 15:10] VITALS: BP 145/50; PULSE 78
[2024-05-23 16:49] LABS: Bedside Glucose 97 mg/dL (74-106)
[2024-05-23] MEDS: Sodium Chloride 0.65% 1 SPRAY SPRAY.BTL 2 SPRAY NASAL (17:38)
[2024-05-23 21:45] VITALS: BP 157/61; PULSE 81
[2024-05-23 22:19] LABS: Bedside Glucose 117 mg/dL (74-106)
[2024-05-24 05:30] VITALS: BP 148/53; PULSE 81
[2024-05-24] MEDS: Metoprolol Tartrate 25 MG Tablet PO ×3 (05:30→20:49)
[2024-05-24 05:51] LABS: Absolute Lymphocyte Count 1.52 X10^3/uL (0.83-4.51); Absolute Neutrophil Count 2.2 X10^3/uL (2.0-7.7); Basophil# 0.05 X10^3/uL; Eosinophil# 0.02 X10^3/uL; Eosinophils% 0.4 % (0-5); Hematocrit 31.1 % (37-47); Hemoglobin 10.2 g/dL (12.0-15.0); Lymphocyte # 1.52 X10^3/ul (0.83-4.51); Mean Corp Hgb Conc 32.8 g/dL (32-36); Mean Corpuscular Hgb 29.6 pg (27.0-32.0); Mean Corpuscular Volume 90.1 fL (81-99); Mean Platelet Vol. 9.5 fl (6.2-12.0); Monocyte# 1.12 X10^3/uL; Monocyte% 22.8 % (0-10); NRBC Flagged by Analyzer 0 % (0-5); Neutrophil # 2.19 X10^3/uL (2.7-7.7); Neutrophil % 44.6 % (47-70); Platelet Count 360 K/mm3 (150-450); RBC Distribution Width CV 14.4 % (11.6-14.6); RBC Distribution Width SD 46.7 fl (35.1-43.9); Red Blood Count 3.45 M/mm3 (4.2-5.4); White Blood Count 4.9 K/mm3 (4.4-11.0)
[2024-05-24 06:18] LABS: Anion Gap 6 (5-15); BUN 24 mg/dL (7-18); Calcium,Total 8.8 mg/dL (8.5-10.1); Chloride 102 mmol/L (98-107); Creatinine, Serum 0.67 mg/dL (0.55-1.02); EST Glomerular Filtration Rate 89 mL/min (>60); Est Glom Filt Rate - Afr Amer 108 mL/min (>60); Estimated Creatinine Clearance 45.43 ml/min; Glucose 107 mg/dL (74-106); Sodium Level 132 mmol/L (136-145)
[2024-05-24 06:25] LABS: Bedside Glucose 104 mg/dL (74-106)
--- NOTE | 2024-05-24 15:15 | NURSING ---
1500-Resident returned from angiogram. A&O, vitals stable. Per report they didn't find anything they needed to fix during procedure. Dressing to left groin to stay in place x2 days.
[2024-05-24] MEDS: Tuberculin,Purif.prot.deriv. 50 TU/ML Vial 0.1 ML ID (15:31)
[2024-05-24 15:32] VITALS: BP 159/54; PULSE 74
[2024-05-24 15:34] VITALS: BP 159/54; PULSE 74; RESP 14; O2SAT 93
[2024-05-24 16:58] LABS: Bedside Glucose 108 mg/dL (74-106)
--- NOTE | 2024-05-24 17:11 | PCM.TCUNOT ---
Objective Data Objective Data Vital Signs: Vital Signs Temp Pulse Resp BP Pulse Ox O2 Del Method 98.4 F 74 14 159/54 H 93 Room Air 05/23/24 11:11 05/24/24 15:34 05/24/24 15:34 05/24/24 15:34 05/24/24 15:34 05/24/24 16:00 Oxygen Delivery Method Room Air Weight: 65.952 kg Body Mass Index (BMI) 24.8 Intake & Output: Intake and Output for Last 24 Hours 05/22/24 05/23/24 05/24/24 23:59 23:59 23:59 Intake Total 960 / 960 720 / 720 Balance 960 / 960 720 / 720 Lab / Micro Data 05/24/24 05:22 05/24/24 05:22 Labs: Laboratory Results - last 24 hr 05/23/24 21:36: POC Glucose 117 H 05/24/24 05:22: WBC 4.9, RBC 3.45 L, Hgb 10.2 L, Hct 31.1 L, MCV 90.1, MCH 29.6, MCHC 32.8, RDW Std Deviation 46.7 H, RDW Coeff of Kathy 14.4, Plt Count 360, MPV 9.5, Immature Gran % (Auto) 0.200, Neut % (Auto) 44.6 L, Lymph % (Auto) 31.0, Frederick % (Auto) 22.8 H, Eos % (Auto) 0.4, Baso % (Auto) 1.0, Absolute Neuts (auto) 2.2, Absolute Lymphs (auto) 1.52, Nucleated RBC % 0, Sodium 132 L, Potassium 4.0, Chloride 102, Carbon Dioxide 24.0, Anion Gap 6, BUN 24 H, Creatinine 0.67, Estim Creat Clear Calc 45.43, Est GFR (MDRD) Af Amer 108, Est GFR (MDRD) Non-Af 89, BUN/Creatinine Ratio 36.0 H, Glucose 107 H, Calcium 8.8 05/24/24 06:03: POC Glucose 104 05/24/24 16:35: POC Glucose 108 H Micro: Microbiology 05/18/24 19:10 Stool Stool Occult Blood ([place]) - Final Assessment & Plan Assessment/Plan (1) Cough: PLAN: Robitussin DM 10mL po q6 prn.
[2024-05-24] MEDS: oxyCODONE 5 MG Tablet PO (18:52)
[2024-05-24] MEDS: guaiFENesin Dm 10 ML UDC PO (18:52)
[2024-05-24] MEDS: metFORMIN (XR) 500 MG Tablet PO (18:52)
[2024-05-24 20:39] VITALS: BP 138/56; PULSE 70
[2024-05-24] MEDS: 0.9% Saline Lock 10 ML Syringe IV (20:42)
[2024-05-24 20:47] VITALS: BP 138/56; PULSE 70
[2024-05-24] MEDS: hydrALAZINE 25 MG Tablet PO (20:47)
[2024-05-24] MEDS: Menthol/Lanolin/Calamine/Znox 113 GM Tube 1 APPLIC TOPICAL (20:48)
[2024-05-24 20:49] VITALS: BP 138/56; PULSE 70
[2024-05-24] MEDS: Lisinopril 20 MG Tablet PO (20:50)
[2024-05-24 21:21] LABS: Bedside Glucose 148 mg/dL (74-106)
[2024-05-25] VITALS (9 sets, daily range): BP systolic 124–154; BP diastolic 48–61; PULSE 60–69; RESP 14–15; TEMP 36.9; O2SAT 97–98; BMI 24.1
[2024-05-25] MEDS: Metoprolol Tartrate 25 MG Tablet PO ×3 (05:19→22:31)
[2024-05-25 06:23] LABS: Bedside Glucose 91 mg/dL (74-106)
[2024-05-25] MEDS: Multivitamins,Therapeutic Tablet 1 TABLET PO (07:50)
[2024-05-25] MEDS: metFORMIN (XR) 500 MG Tablet PO ×2 (07:51→16:43)
[2024-05-25] MEDS: Menthol/Lanolin/Calamine/Znox 113 GM Tube 1 APPLIC TOPICAL ×2 (07:51→19:49)
[2024-05-25] MEDS: Clopidogrel Bisulfate 75 MG Tablet PO (07:51)
[2024-05-25] MEDS: Aspirin E.C. 81 MG Tablet PO (07:51)
[2024-05-25] MEDS: Cholecalciferol (VIT D3) 25 MCG TABLET (1,000 UNITS) PO (07:51)
[2024-05-25] MEDS: Lisinopril 20 MG Tablet PO ×2 (07:51→19:47)
[2024-05-25] MEDS: hydrALAZINE 25 MG Tablet PO ×2 (07:51→19:48)
[2024-05-25] MEDS: amLODIPine 10 MG Tablet PO (07:51)
[2024-05-25] MEDS: 0.9% Saline Lock 10 ML Syringe IV (09:54)
[2024-05-25 11:46] LABS: Bedside Glucose 101 mg/dL (74-106)
[2024-05-25] MEDS: oxyCODONE 5 MG Tablet PO ×2 (13:36→19:56)
[2024-05-25 17:35] LABS: Bedside Glucose 88 mg/dL (74-106)
[2024-05-25] MEDS: Acetaminophen 325 MG Tablet 650 MG PO (17:42)
[2024-05-25] MEDS: guaiFENesin Dm 10 ML UDC PO (19:57)
[2024-05-25 21:30] LABS: Bedside Glucose 106 mg/dL (74-106)
[2024-05-26] VITALS (7 sets, daily range): BP systolic 144–163; BP diastolic 41–59; PULSE 63–66; RESP 14–15; TEMP 36.8; O2SAT 97–98
[2024-05-26] MEDS: Metoprolol Tartrate 25 MG Tablet PO ×3 (06:34→20:25)
[2024-05-26 06:43] LABS: Bedside Glucose 105 mg/dL (74-106)
[2024-05-26] MEDS: metFORMIN (XR) 500 MG Tablet PO ×2 (09:05→17:30)
[2024-05-26] MEDS: Multivitamins,Therapeutic Tablet 1 TABLET PO (09:06)
[2024-05-26] MEDS: Clopidogrel Bisulfate 75 MG Tablet PO (09:06)
[2024-05-26] MEDS: Cholecalciferol (VIT D3) 25 MCG TABLET (1,000 UNITS) PO (09:06)
[2024-05-26] MEDS: Aspirin E.C. 81 MG Tablet PO (09:06)
[2024-05-26] MEDS: Menthol/Lanolin/Calamine/Znox 113 GM Tube 1 APPLIC TOPICAL ×2 (09:08→21:36)
--- NOTE | 2024-05-26 09:09 | CASEMGMT ---
Addendum entered by Lita Macias 05/26/24 12:36: SW spoke with pt at bedside to discuss DC plans. Pt agreed she needs a SNF and cannot pay OOP. Pt is agreeable to Medicaid application and provided this worker with finances. SW inquired about SNF preferences. Pt stated she spoke with her dtr and prefers [facility] and [facility]. SW to place referrals. SW referred to [facility] via email. Referred to [facility] and [facility] via [facility]. OLU Ferguson Original Note: Social Work SW phoned dtr, Alejandra, to inquire about DC plans, as insurance update is this date. Dtr stated she cannot care for pt and her is currently sick and cannot care for pt either. SW inquired about SNF placement and dtr agreed. SW explained Medicare part B benefit and OOP for room and board. Dtr unsure about pt's finances but does now have access to her bank accounts. Dtr to call the bank and ask questions given by this worker to report back on Medicaid eligibility. SW offered to send list of SNF providers for dtr to review. Dtr agreed and prefers text link. SW sent providers with quality and resource data via [employer] link. Dtr to update this worker with responses. SW will continue to follow. OLU Ferguson
[2024-05-26] MEDS: 0.9% Saline Lock 10 ML Syringe IV ×2 (09:10→20:32)
[2024-05-26] MEDS: hydrALAZINE 25 MG Tablet PO ×2 (10:12→20:23)
[2024-05-26] MEDS: amLODIPine 10 MG Tablet PO (10:12)
[2024-05-26] MEDS: Lisinopril 20 MG Tablet PO ×2 (10:12→20:25)
[2024-05-26 11:29] LABS: Bedside Glucose 210 mg/dL (74-106)
--- NOTE | 2024-05-26 11:45 | NURSING ---
Pt BS 210 and per Sliding scale is suppose to receive 1 unit of Humalog. Pt refused Insulin educated pt on importance of controlling blood sugars. Pt continued to refuse.
--- NOTE | 2024-05-26 15:17 | WOUNDNOTE ---
wound photo: right foot
--- NOTE | 2024-05-26 15:17 | WOUNDNOTE ---
wound photo: right foot
--- NOTE | 2024-05-26 15:18 | WOUNDNOTE ---
wound photo: right foot
[2024-05-26 16:49] LABS: Bedside Glucose 80 mg/dL (74-106)
[2024-05-26] MEDS: oxyCODONE 5 MG Tablet PO (17:28)
[2024-05-26] MEDS: Acetaminophen 325 MG Tablet 650 MG PO (20:29)
[2024-05-26 21:39] LABS: Bedside Glucose 118 mg/dL (74-106)
[2024-05-26] MEDS: guaiFENesin Dm 10 ML UDC PO (21:58)
[2024-05-27] VITALS (7 sets, daily range): BP systolic 124–151; BP diastolic 41–56; PULSE 62–88; RESP 19; TEMP 36.1; O2SAT 96
[2024-05-27] MEDS: oxyCODONE 5 MG Tablet PO ×2 (00:16→21:18)
[2024-05-27] MEDS: Metoprolol Tartrate 25 MG Tablet PO ×3 (05:03→21:15)
[2024-05-27 06:27] LABS: Bedside Glucose 116 mg/dL (74-106)
--- NOTE | 2024-05-27 07:50 | MDS.RN ---
Information for the MDS was obtained from review of the clinical record, interview of resident, staff, and direct observation of resident?s care.
--- NOTE | 2024-05-27 08:23 | CASEMGMT ---
Addendum entered by Lita Macias 05/27/24 11:52: Received call from Alejandra, with request for referrals to [facility], and for pt to be placed on a waitlist for [facility]. Referrals sent via [facility] and sent request [facility]. Addendum entered by Lita Macias 05/27/24 11:05: SW spoke with pt to update. Pt is agreeable to DC date and SNF referrals. -- [facility] cannot accept. SW phoned dtr Alejandra, to update on DC date and SNF outcomes. Requested additional SNF choices. Dtr to review list and notify this worker. Original Note: Social Work [facility] not have any beds. Insurance issued LCD 05/29, DC 05/30 SW phoned [facility] and they are reviewing; will notify this worker this date of outcome. SW will continue to follow. OLU FergusonW
[2024-05-27] MEDS: hydrALAZINE 25 MG Tablet PO ×2 (09:07→21:14)
[2024-05-27] MEDS: Lisinopril 20 MG Tablet PO ×2 (09:08→21:15)
[2024-05-27] MEDS: Multivitamins,Therapeutic Tablet 1 TABLET PO (09:08)
[2024-05-27] MEDS: Cholecalciferol (VIT D3) 25 MCG TABLET (1,000 UNITS) PO (09:08)
[2024-05-27] MEDS: amLODIPine 10 MG Tablet PO (09:08)
[2024-05-27] MEDS: Aspirin E.C. 81 MG Tablet PO (09:08)
[2024-05-27] MEDS: metFORMIN (XR) 500 MG Tablet PO ×2 (09:08→17:23)
[2024-05-27] MEDS: Clopidogrel Bisulfate 75 MG Tablet PO (09:08)
[2024-05-27] MEDS: Menthol/Lanolin/Calamine/Znox 113 GM Tube 1 APPLIC TOPICAL ×2 (09:09→21:15)
[2024-05-27 11:35] LABS: Bedside Glucose 105 mg/dL (74-106)
--- NOTE | 2024-05-27 12:47 | CASEMGMT ---
Social Work [facility] provided pt's Medicaid pending number [id number].? ? Lita Macias FOOD PREPARATION WORKER GREENSKEEPER SUPERVISOR
--- NOTE | 2024-05-27 14:07 | CASEMGMT ---
Addendum entered by Lita Macias 05/27/24 14:48: [facility]. SW spoke with pt and family in room and in agreement for [facility]. SW notified other SNFs and secured [facility]. DC paperwork sent. PASRR completed. Dtr transporting 1430. Plan: DC 05/30 to [facility], intermediate, Medicaid pending, part B therapies OLU Ferguson Original Note: Social Work IDT met with patient, two dtrs and granddaughter for care plan meeting. Discussed patient's progress in PT/OT/ST/SN. Insurance issued DC 05/30 and pt will DC to a SNF, intermediate, Medicaid pending. SW awaiting outcomes from SNFs for placement. SW inquired about transport, family vs w/c van. Dtr Jessie can transport after work. SW inquired about additional SNFs. Pt agreed to [facility] and [facility]. SW to place referrals. Will continue to follow to finalize DC plans. [facility] OLU Ferguson
--- NOTE | 2024-05-27 14:49 | DS.PCM_ITS ---
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 Medications at Discharge Home Medications clopidogrel 75 mg tablet 75 mg PO DAILY platelet inhibitor 06/07/16 multivitamin 1 tab PO DAILY SUPPLEMENT 04/28/19 lisinopril 20 mg tablet 20 mg PO BID BP 01/01/21 metoprolol tartrate 25 mg tablet 25 mg PO TID BP 01/01/21 metformin 500 mg tablet,extended release 24 hr 500 mg PO BID DM 07/01/21 cholecalciferol (vitamin D3) 25 mcg (1,000 unit) tablet (Vitamin D3) 25 mcg PO DAILY SUPPLEMENT 09/26/21 nitroglycerin 0.4 mg sublingual tablet 0.4 mg sublingual Q5-15M PRN chest pain #25 tabs 02/12/23 amlodipine 10 mg tablet 10 mg PO DAILY bp 11/12/23 aspirin 81 mg tablet,delayed release 81 mg PO DAILY@0800 Heart Health #0 tabs 05/16/24 enoxaparin 40 mg/0.4 mL subcutaneous syringe 40 mg (0.4 mL) subcut DAILY DVT prophylaxis #0 mL 05/16/24 acetaminophen 325 mg tablet 650 mg (2 x 325 mg) PO Q6H PRN PRN Pain 1-10 Or Fever #0 tabs 05/27/24 dextromethorphan-guaifenesin 10 mg-100 mg/5 mL oral syrup 10 ml PO Q6H PRN PRN COUGH/CONGESTION #0 mL 05/27/24 hydralazine 25 mg tablet 25 mg PO BID #0 tabs 05/27/24 menthol 0.44 %-zinc oxide 20.6 % topical ointment (Calmoseptine) 1 applic topical BID #0 grams 05/27/24 oxycodone 5 mg tablet 5 mg PO Q6H PRN PRN Pain Score 4-10 3 days #12 tabs 05/27/24 sodium chloride 0.65 % nasal spray aerosol (Deep Sea Nasal) 2 spray NASAL TID PRN PRN NASAL DRYNESS #0 mL 05/27/24 Hospital Course Operations - (Right hallux debridement.) Procedures Angiogram and Cardiac catheterization (Stent placement.) Summary of Care Provided Minutes Spent on Discharge: 35 Hospital Course: 88 year old female with below past medical history hospitalized for right diabetic foot ulcer infection, underwent right hallux debridement, complicated by cardiac catheterization s/p stent, admitted to TCU with debility, here for rehabilitation, strengthening, prior to discharge home. 05/24/2024 Dr. Mccray performed Aortogram, right lower extremity runoff. Discharge to [facility] 05/30/2024, intermediate, medicaid pending. Physical Exam Const alert General Appearance: cooperative HEENT normocephalic Eyes PERRL and EOMs intact bilaterally Neck supple, no JVD and no carotid bruits Resp normal respiratory effort, normal air movement and clear to auscultation bilaterally Cardio regular rate and regular rhythm GI normal to inspection, nondistended, normoactive bowel sounds, non-tender and non-distended Extremity normal capillary refill Extremity Narrative: Right foot boot. General Extremity: Negative for edema Skin no rashes or lesions noted General Skin Exam: no breakdown Psych affect normal Appearance: appropriate Weight / BMI Weight Weight: 64.138 kg Body Mass Index (BMI) 24.1 ABG / Lab / Microbiology Data 05/24/24 05:22 05/24/24 05:22 Laboratory: Laboratory Results - last 24 hr 05/26/24 16:16: POC Glucose 80 05/26/24 21:15: POC Glucose 118 H 05/27/24 05:57: POC Glucose 116 H 05/27/24 11:06: POC Glucose 105 Microbiology: Microbiology 05/18/24 19:10 Stool Stool Occult Blood ([place]) - Final D/C Instructions Discharge Diet: No restrictions Discharge Activity: Return to Normal Activity, May Shower and Use Walker Weight Bearing Status: Weight bearing as tolerated Call your doctor if you observe: Fever of 101 or Higher, Inability to urinate, Inability to have a bowel movement, Shortness of breath, Dizziness, Fainting spells, Swelling in the ankles, Chest pain and Uncontrolled pain DC O2, CPAP, BIPAP Needs Home O2 Discharge instructions: No Additional Instructions: Discharge to [facility] 05/30/2024, intermediate, medicaid pending. Please Follow Up With: Desi Mcpherson PA When: 2 weeks. Meaningful Use Info Meaningful Use Meaningful Use Diagnoses (Choose all that apply): None applicable Ischemic Stroke Statin Dosing Therapy Reference: STATIN DOSE THERAPY REFERENCE: * Patients > 75 years receive moderate or high dose statin therapy. * Patients 75 years or YOUNGER should receive HIGH intensity statin dose unless contraindicated. You will be required to document reason for non-treatment if statin daily dose does not meet guidelines. HIGH DOSE STATIN THERAPY DAILY Atorvastatin > than or = to 40 mg Rosuvastatin > than or = to 20 mg Amlodipine + Atorvastatin > than or = to 2.5/40 mg Ezetimibe + Simvastatin 10/80 mg Simvastatin 80mg Discharge Plan Admission Admit Date/Time: 05/16/24 18:42 Primary Reason for Your Visit: Debility. Attending Provider: Memo Chavis Chi Primary Care Provider: Valencia Mitchell Instructions Additional Instructions / Restrictions: Discharge to [facility] 05/30/2024, intermediate, medicaid pending. Discharge Orders/Prescriptions Prescriptions: New acetaminophen 325 mg Tablet 650 mg PO Q6H PRN PRN (Reason: Pain 1-10 Or Fever) Qty: 0 0RF hydralazine 25 mg Tablet 25 mg PO BID Qty: 0 0RF dextromethorphan-guaifenesin 10-100 mg/5 mL Syrup 10 ml PO Q6H PRN PRN (Reason: COUGH/CONGESTION) Qty: 0 0RF oxycodone 5 mg Tablet 5 mg PO Q6H PRN PRN (Reason: Pain Score 4-10) 3 Days Qty: 12 0RF Deep Sea Nasal 0.65 % Aerosol,[place] 2 spray NASAL TID PRN PRN (Reason: NASAL DRYNESS) Qty: 0 0RF menthol-zinc oxide [Calmoseptine] 0.44-20.6 % Ointment 1 applic topical BID Qty: 0 0RF Protocol: *Topical Application Instructions APPLICATION INSTRUCTIONS: bilateral buttocks Continued multivitamin Tablet 1 tab PO DAILY metoprolol tartrate 25 mg tablet 25 mg PO TID lisinopril 20 mg tablet 20 mg PO BID metformin 500 mg tablet extended release 24 hr 500 mg PO BID cholecalciferol (vitamin D3) [Vitamin D3] 25 mcg (1,000 unit) tablet 25 mcg PO DAILY nitroglycerin 0.4 mg tablet, sublingual 0.4 mg SUBLINGUAL Q5-15M PRN (Reason: chest pain) Qty: 25 3RF clopidogrel 75 MG tablet 75 mg PO DAILY amlodipine 10 mg tablet 10 mg PO DAILY aspirin 81 mg Tablet,Delayed Release (Dr/Ec) 81 mg PO DAILY@0800 Qty: 0 0RF enoxaparin 40 mg/0.4 mL Syringe 40 mg subcut DAILY Qty: 0 0RF Discontinued acetaminophen 325 mg Tablet 650 mg PO Q6H PRN PRN (Reason: Pain 1-10 Or Fever) Qty: 0 0RF oxycodone 5 mg Tablet 5 mg PO Q6H PRN PRN (Reason: Pain Score 4-10) 4 Days Qty: 7 0RF Referrals / Follow Up: Valencia Mitchell NP-C [Primary Care Provider] - Desi Mcpherson PA [Med Staff - Adv Practice Prof] - 06/17/24 11:00 am (Vascular follow-up) Disposition Disposition (needs filled in before D/C Order can be placed): NonSkilled NH/Intermed Care
--- NOTE | 2024-05-27 15:00 | PCM.TXEXTCAR ---
Diet Diet Order/Speech Therapy: 05/24/24 14:59 Diet: Cardiac: Calorie-Controlled Dietary Modifications:: Consistent Carbohydrate Type of Dietary Supplement:: Darci Diet Comments: Darci with Breakfast and dinner How many daily calories?: 1600 calorie Routine Orders/Code Status Code Status: Full Code DC O2, CPAP, BIPAP needs Home O2 Discharge instructions: No Wound(s) Right great toe surgical debridement, neuropathic ulcer: Wound Type: Neuropathic/Diabetic Foot Ulcer Dressing Change: Adaptic, DSD Scattered small scabs to right arm: Wound Type: scab right great toe: Wound Type: Neuropathic/Diabetic Foot Ulcer Dressing Change: betadine right lateral foot: Wound Type: Neuropathic/Diabetic Foot Ulcer Dressing Change: betadine with dry dressing Left groin: Wound Type: Surgical Incision Therapies Weight Bearing: Weight bearing as tolerated Extremity Affected:: Bilateral Lower Physical Therapy: Eval and Treat Occupational Therapy: Eval and Treat Speech Therapy: Eval and Treat Problem/Diagnosis (1) Cough: Status: Acute Code(s): R05.9 - Cough, unspecified Plan: Robitussin DM 10mL po q6 prn. Allergies/Procedures Done in Hospital Allergies pravastatin Adverse Reaction (Severe, Verified 02/03/24 10:00) myalgias Layrkix-UOG-WaM Reductase Inhibitor Adverse Reaction (Severe, Verified 02/03/24 10:00) myalgias Sulfa (Sulfonamide Antibiotics) Adverse Reaction (Mild, Verified 02/03/24 10:00) stomach upset atorvastatin Adverse Reaction (Verified 02/03/24 10:00) myalgias Type of Care/Length of Stay Estimated LOS: Convalescent Care Less Than 30 days Type of Care Needed: Intermediate Rehab Potential: Good Prognosis: Good Additional Orders/Day of Discharge Additional Orders: part B therapies Day of Discharge: 05/30/24 Dietary and Speech Recommendations Dietitian Recommendations/Changes: Continue 1600 calorie/consistent carbohydrate; cardiac diet. Continue Darci BID with breakfast and dinner trays. Follow Up Care Please Follow Up With: Desi Mcpherson PA Discharge Plan Admission Admit Date/Time: 05/16/24 18:42 Primary Reason for Your Visit: Debility. Attending Provider: Memo Chavis Chi Primary Care Provider: Valencia Mitchell Instructions Additional Instructions / Restrictions: Discharge to [facility] 05/30/2024, intermediate, medicaid pending. Discharge Orders/Prescriptions Prescriptions: New acetaminophen 325 mg Tablet 650 mg PO Q6H PRN PRN (Reason: Pain 1-10 Or Fever) Qty: 0 0RF hydralazine 25 mg Tablet 25 mg PO BID Qty: 0 0RF dextromethorphan-guaifenesin 10-100 mg/5 mL Syrup 10 ml PO Q6H PRN PRN (Reason: COUGH/CONGESTION) Qty: 0 0RF oxycodone 5 mg Tablet 5 mg PO Q6H PRN PRN (Reason: Pain Score 4-10) 3 Days Qty: 12 0RF Deep Sea Nasal 0.65 % Aerosol,[place] 2 spray NASAL TID PRN PRN (Reason: NASAL DRYNESS) Qty: 0 0RF menthol-zinc oxide [Calmoseptine] 0.44-20.6 % Ointment 1 applic topical BID Qty: 0 0RF Protocol: *Topical Application Instructions APPLICATION INSTRUCTIONS: bilateral buttocks Continued multivitamin Tablet 1 tab PO DAILY metoprolol tartrate 25 mg tablet 25 mg PO TID lisinopril 20 mg tablet 20 mg PO BID metformin 500 mg tablet extended release 24 hr 500 mg PO BID cholecalciferol (vitamin D3) [Vitamin D3] 25 mcg (1,000 unit) tablet 25 mcg PO DAILY nitroglycerin 0.4 mg tablet, sublingual 0.4 mg SUBLINGUAL Q5-15M PRN (Reason: chest pain) Qty: 25 3RF clopidogrel 75 MG tablet 75 mg PO DAILY amlodipine 10 mg tablet 10 mg PO DAILY aspirin 81 mg Tablet,Delayed Release (Dr/Ec) 81 mg PO DAILY@0800 Qty: 0 0RF enoxaparin 40 mg/0.4 mL Syringe 40 mg subcut DAILY Qty: 0 0RF Discontinued acetaminophen 325 mg Tablet 650 mg PO Q6H PRN PRN (Reason: Pain 1-10 Or Fever) Qty: 0 0RF oxycodone 5 mg Tablet 5 mg PO Q6H PRN PRN (Reason: Pain Score 4-10) 4 Days Qty: 7 0RF Referrals / Follow Up: Valencia Mitchell NP-C [Primary Care Provider] - Desi Mcpherson PA [Med Staff - [facility] Practice Prof] - 06/17/24 11:00 am (Vascular follow-up) Disposition Disposition (needs filled in before D/C Order can be placed): NonSkilled NH/Intermed Care
[2024-05-27 17:27] LABS: Bedside Glucose 111 mg/dL (74-106)
[2024-05-27] MEDS: 0.9% Saline Lock 10 ML Syringe IV (21:13)
[2024-05-27] MEDS: guaiFENesin Dm 10 ML UDC PO (21:19)
[2024-05-27 21:37] LABS: Bedside Glucose 91 mg/dL (74-106)
[2024-05-28 05:51] VITALS: BP 165/65; PULSE 66
[2024-05-28 05:54] VITALS: PULSE 66
[2024-05-28] MEDS: Metoprolol Tartrate 25 MG Tablet PO ×3 (05:54→22:04)
[2024-05-28 06:35] LABS: Bedside Glucose 89 mg/dL (74-106)
[2024-05-28 08:18] VITALS: BP 152/45; PULSE 58; RESP 17; TEMP 36.5; O2SAT 96
[2024-05-28 08:22] VITALS: PULSE 58
[2024-05-28] MEDS: Aspirin E.C. 81 MG Tablet PO (08:22)
[2024-05-28] MEDS: metFORMIN (XR) 500 MG Tablet PO ×2 (08:22→17:11)
[2024-05-28] MEDS: hydrALAZINE 25 MG Tablet PO ×2 (08:22→22:04)
[2024-05-28] MEDS: Multivitamins,Therapeutic Tablet 1 TABLET PO (08:23)
[2024-05-28] MEDS: Menthol/Lanolin/Calamine/Znox 113 GM Tube 1 APPLIC TOPICAL ×2 (08:23→22:08)
[2024-05-28] MEDS: amLODIPine 10 MG Tablet PO (08:23)
[2024-05-28] MEDS: Lisinopril 20 MG Tablet PO ×2 (08:24→22:05)
[2024-05-28] MEDS: Cholecalciferol (VIT D3) 25 MCG TABLET (1,000 UNITS) PO (08:24)
[2024-05-28] MEDS: Clopidogrel Bisulfate 75 MG Tablet PO (08:24)
[2024-05-28 11:59] LABS: Bedside Glucose 150 mg/dL (74-106)
[2024-05-28 14:39] VITALS: PULSE 61
--- NOTE | 2024-05-28 15:55 | NURSING ---
Pt daughter called and inquired about why pt had not been swabbed for pneumonia since she called about it at 6am this morning. This nurse expressed understanding at frustration- updated pt daughter on pt assessment. Pt daughter was adamant that pt be tested for pneumonia- states entire family has it. This nurse informed pt daughter she would contact dr to see about test and would update daughter after hearing back from . This nurse sent dr feldman a message- dr feldman gave ordered for covid swab- respiratory panel, and chest xray. this nurse called daughter Jessie back informed her of the tests that were ordered. daughter inquired about pneumonia swab- this nurse explained chest xray is normally used in pneumonia diagnosis also informed daughter it could be a couple of hours for results to come back.Pt daughter very upset about timing. States she will be talking to Lita on Thursday.
--- NOTE | 2024-05-28 16:00 | RAD_ITS ---
INDICATION: cough EXAMINATION/TECHNIQUE: X-RAY - XR Chest 2 Views COMPARISON: FINDINGS: LINES/DEVICES: None. LUNGS: No consolidation, edema or effusion. No pneumothorax. MEDIASTINUM AND CARDIOVASCULAR STRUCTURES: Cardiac silhouette not enlarged. Central airways and mediastinal contour are unremarkable. BONES AND SOFT TISSUES: Mild levoscoliosis. RAD/Chest PA and Lateral IMPRESSION: No radiographic evidence of acute cardiopulmonary disease. Electronically Signed: Dre Richardson DO at 16:23 EST Reading Location ID and State: [facility] / [place] Tel [phone], Service support ,
[2024-05-28 16:43] LABS: Bedside Glucose 96 mg/dL (74-106)
--- NOTE | 2024-05-28 20:30 | NURSING ---
Patient tested positive for Influenza A, new orders received from Dr. Chavis. Daughter [place] updated. Will continue to monitor.
[2024-05-28 22:00] LABS: Bedside Glucose 110 mg/dL (74-106)
[2024-05-28 22:04] VITALS: BP 152/54; PULSE 93
[2024-05-28] MEDS: oxyCODONE 5 MG Tablet PO (22:05)
[2024-05-28] MEDS: Oseltamivir Phosphate 30 MG Capsule PO (22:05)
[2024-05-29 06:08] LABS: Bedside Glucose 99 mg/dL (74-106)
[2024-05-29] MEDS: 0.9% Saline Lock 10 ML Syringe IV ×2 (06:37→14:53)
[2024-05-29 06:38] VITALS: BP 118/55; PULSE 58
[2024-05-29] MEDS: Metoprolol Tartrate 25 MG Tablet PO ×3 (06:38→20:07)
[2024-05-29 08:29] VITALS: BP 153/49; PULSE 57; RESP 17; TEMP 36.8
[2024-05-29] MEDS: Aspirin E.C. 81 MG Tablet PO (08:34)
[2024-05-29] MEDS: metFORMIN (XR) 500 MG Tablet PO ×2 (08:34→16:49)
[2024-05-29 08:35] VITALS: PULSE 57
[2024-05-29] MEDS: Menthol/Lanolin/Calamine/Znox 113 GM Tube 1 APPLIC TOPICAL ×2 (08:35→20:16)
[2024-05-29] MEDS: amLODIPine 10 MG Tablet PO (08:35)
[2024-05-29] MEDS: hydrALAZINE 25 MG Tablet PO ×2 (08:35→20:08)
[2024-05-29] MEDS: Multivitamins,Therapeutic Tablet 1 TABLET PO (08:35)
[2024-05-29] MEDS: Clopidogrel Bisulfate 75 MG Tablet PO (08:36)
[2024-05-29] MEDS: Cholecalciferol (VIT D3) 25 MCG TABLET (1,000 UNITS) PO (08:36)
[2024-05-29] MEDS: Lisinopril 20 MG Tablet PO ×2 (08:36→20:08)
[2024-05-29] MEDS: Oseltamivir Phosphate 30 MG Capsule PO ×2 (08:36→20:08)
[2024-05-29] MEDS: guaiFENesin Dm 10 ML UDC PO ×2 (08:45→20:12)
[2024-05-29] MEDS: oxyCODONE 5 MG Tablet PO ×2 (08:45→20:06)
[2024-05-29 12:03] LABS: Bedside Glucose 120 mg/dL (74-106)
[2024-05-29 14:53] VITALS: PULSE 58
[2024-05-29 16:56] LABS: Bedside Glucose 94 mg/dL (74-106)
[2024-05-29 20:07] VITALS: BP 144/52; PULSE 67
[2024-05-29 20:08] VITALS: BP 144/52; PULSE 67
[2024-05-29 21:40] LABS: Bedside Glucose 120 mg/dL (74-106)
--- NOTE | 2024-05-30 01:07 | NURSING ---
Patient put call light on, when staff entered room, patient had already transferred self to bathroom without waiting. Re-educated on waiting for assistance.
[2024-05-30 06:09] LABS: Bedside Glucose 107 mg/dL (74-106)
[2024-05-30 06:24] VITALS: BP 164/61; PULSE 65
[2024-05-30] MEDS: Metoprolol Tartrate 25 MG Tablet PO ×2 (06:24→14:10)
[2024-05-30 06:49] VITALS: RESP 16
--- NOTE | 2024-05-30 10:33 | CASEMGMT ---
Social Work Notified by nursing that pt tested positive for flu. D/T lack of insurance coverage and transferring to an appropriate LOC, pt will still be discharged as planned. PARAG updated Gordy Mccain and confirmed. Gordy Mccain requesting LOC. PARAG faxed LOC to [facility]. Received call from alphonso Roberts, and confirmed DC as planned. Lita Macias, MUSIC REHABILITATION THERAPIST DIRECTOR OF RESTAURANT OPERATIONS
[2024-05-30 10:48] VITALS: BP 126/60; PULSE 64; TEMP 36.4; O2SAT 100
[2024-05-30 10:54] VITALS: PULSE 64
[2024-05-30] MEDS: Menthol/Lanolin/Calamine/Znox 113 GM Tube 1 APPLIC TOPICAL (10:54)
[2024-05-30] MEDS: metFORMIN (XR) 500 MG Tablet PO (10:54)
[2024-05-30] MEDS: hydrALAZINE 25 MG Tablet PO (10:54)
[2024-05-30] MEDS: Aspirin E.C. 81 MG Tablet PO (10:54)
[2024-05-30] MEDS: guaiFENesin Dm 10 ML UDC PO (10:55)
[2024-05-30] MEDS: Cholecalciferol (VIT D3) 25 MCG TABLET (1,000 UNITS) PO (10:55)
[2024-05-30] MEDS: Clopidogrel Bisulfate 75 MG Tablet PO (10:55)
[2024-05-30] MEDS: amLODIPine 10 MG Tablet PO (10:55)
[2024-05-30] MEDS: Lisinopril 20 MG Tablet PO (10:55)
[2024-05-30] MEDS: Multivitamins,Therapeutic Tablet 1 TABLET PO (10:55)
[2024-05-30 12:01] LABS: Bedside Glucose 156 mg/dL (74-106)
[2024-05-30 14:10] VITALS: BP 121/53; PULSE 64
[2024-05-30] MEDS: oxyCODONE 5 MG Tablet PO (14:10)
[2024-05-30] MEDS: Oseltamivir Phosphate 30 MG Capsule PO (14:21)
== END 2024-05-30 16:00 | disposition intermediate care facility (04) | DRG 281 ==
PROVIDERS: Admitting Provider Family Medicine Geriatric Medicine; PCP Nurse Practitioner Family; Visit Provider Family Medicine Geriatric Medicine
DX: E11.52 Type 2 diabetes mellitus with diabetic peripheral angiopathy with gangrene (principal); I21.4 Non-ST elevation (NSTEMI) myocardial infarction; I70.261 Atherosclerosis of native arteries of extremities with gangrene, right leg; J44.0 Chronic obstructive pulmonary disease with (acute) lower respiratory infection; M86.272 Subacute osteomyelitis, left ankle and foot; L97.516 Non-pressure chronic ulcer of other part of right foot with bone involvement without evidence of necrosis; E11.42 Type 2 diabetes mellitus with diabetic polyneuropathy; D75.839 Thrombocytosis, unspecified; I10 Essential (primary) hypertension; E11.621 Type 2 diabetes mellitus with foot ulcer; E78.5 Hyperlipidemia, unspecified; E11.69 Type 2 diabetes mellitus with other specified complication; F17.210 Nicotine dependence, cigarettes, uncomplicated; E11.51 Type 2 diabetes mellitus with diabetic peripheral angiopathy without gangrene; I25.10 Atherosclerotic heart disease of native coronary artery without angina pectoris; F17.290 Nicotine dependence, other tobacco product, uncomplicated; I25.2 Old myocardial infarction; Z79.4 Long term (current) use of insulin; J10.1 Influenza due to other identified influenza virus with other respiratory manifestations; Z79.82 Long term (current) use of aspirin; Z95.5 Presence of coronary angioplasty implant and graft; Z79.01 Long term (current) use of anticoagulants; Z79.84 Long term (current) use of oral hypoglycemic drugs; Z79.02 Long term (current) use of antithrombotics/antiplatelets; Z79.899 Other long term (current) drug therapy
CPT/HCPCS: 36415; 71046; 80048; 82274; 82962; 85025; 87633; 87811; 92523; 97110; 97116; 97129; 97130; 97162; 97166; 97530; 97535; 97802; A4216

== ENCOUNTER 2024-05-24 07:57 | Day surgery (SDC) | payer MEDICARE, SELFPAY ==
[2024-05-24 08:16] VITALS: BMI 24.5
--- NOTE | 2024-05-24 14:15 | NURSING ---
REPORT CALLED TO TCU NURSING STATION
--- NOTE | 2024-05-24 16:22 | OP.PCM_ITS ---
Operative Report (Standard) Operative Information Date of Procedure: 05/24/24 Pre-Operative Diagnosis: Atherosclerosis with gangrene of the right extremity Post-Operative Diagnosis: Same Surgery/Procedure Performed: Aortogram, right lower extremity runoff Intravascular ultrasound evaluation of the right anterior tibial artery, SFA/popliteal artery, common femoral artery, external iliac artery, common iliac artery, left common iliac artery rate engineer: No Type of Anesthesia: Local and Sedation,Conscious Procedure Start Time: 09:30 Procedure Stop Time: 10:30 Select all DRAINS/GRAFTS/IMPLANTS that apply: None Estimated Blood Loss: 4 Specimen collected: No Description of surgery: HPI: Patient is an 88-year-old female with known severe multilevel atherosclerosis and recurrent right lower extremity dry gangrene. She had a prior popliteal and anterior tibial bypass approximately 1 year ago and she now presents with recurrence of her gangrene. Description of procedure: Upon obtaining form consent and verification correct patient procedure site the patient was taken to the Addiction Treatment Counselor where she was positioned prepped and draped in usual sterile fashion. Timeouts performed and conscious sedation ministered Versed and fentanyl. Skin overlying the left common femoral artery was anesthetized 1% lidocaine the vessel accessed under ultrasound guidance with a micropuncture needle and wire. This was exchanged for micropuncture sheath through which hand-injection iliofemoral angiograms performed revealing satisfactory positioning with no extravasation or dissection. Through the micropuncture sheath a Bentson wire is advanced into t he abdominal aorta and the micropuncture sheath exchanged for a short 5 Slovenian sheath. Through this an Omni Flush catheter was advanced into the abdominal aorta and a digital subtraction aortogram pelvic angiogram was performed. We then navigated into the contralateral iliac system advancing our catheter into the distal external iliac artery. From this position sequential subtraction angiography of the right lower extremity was performed. This revealed severe multi level multisegment disease most notable in the mid common iliac, mid common femoral, distal popliteal, and involvement of all tibial vessels. It was felt that we had at least potential opportunity to improve perfusion with endovascular means. This was attractive in particular due to her recent NSTEMI which required coronary intervention approximately 2 weeks prior. Dum[place] advantage wire was then advanced and using along with an angled catheter we able to navigate past to the common femoral lesion advancing our wire and catheter into the superficial femoral artery. Catheter then withdrawn and the short 5 Slovenian sheath exchanged for a 6 Slovenian 70 Rabie sheath advanced into position in the mid SFA. The patient was in heparinized allowed to circulate for 3 minutes. From this sheath position utilizing a quick cross catheter and command 14 wire we were able to navigate the tandem lesions of the distal SFA and popliteal and ultimately navigate into the anterior tibial artery. From this position we engaged the proximal segment of the anterior tibial artery high-grade stenosis. Multiple efforts were made to change the position of our wire and catheter in regards to the proximal cap of the lesion however we are unable to make any meaningful gains. The anterior tibial provide the inflow into the vessels that perfuse the forefoot in the area of the gangrenous tissue. Being unable to make any meaningful progress crossing any of these lesions we felt that further efforts would likely be counterproductive and potentially hazardous and that the patient would best be served with open revascularization. Intravascular ultrasound probe was advanced and recorded pullback performed from the anterior tibial back to the proximal superficial femoral artery. The sheath was then pulled back into the proximal common iliac artery and a second reported segment performed to further evaluate in particular the common femoral lesion and its proximity to the bifurcation. Finally sheath withdrawn into the ipsilateral external iliac artery and recorded pullback performed of the remainder of the contralateral iliac and the ipsilateral common iliac artery. This confirms significant high-grade stenosis of both common iliac arteries that was remote to the bifurcation. It was felt that the right common iliac lesion would need to be stented along with the endarterectomy and bypass. The patient was then awake from her sedation taken recovery room anticipated return to the TCU. Surgical Findings: Severe multilevel disease with significant calcification. Focal high-grade stenosis of the mid right common iliac artery, mid right common femoral artery, origin of right SFA, distal right popliteal artery, anterior tibial artery origin and multiple tandem lesions, tibioperoneal trunk origin. Complications Complications: No
== END 2024-05-24 14:45 | disposition skilled nursing facility (03) ==
PROVIDERS: PCP Nurse Practitioner Family; Referring Provider Surgery Trauma Surgery; Visit Provider Surgery Trauma Surgery
DX: I21.4 Non-ST elevation (NSTEMI) myocardial infarction (principal); I70.263 Atherosclerosis of native arteries of extremities with gangrene, bilateral legs; E11.621 Type 2 diabetes mellitus with foot ulcer; L97.512 Non-pressure chronic ulcer of other part of right foot with fat layer exposed; J44.9 Chronic obstructive pulmonary disease, unspecified; Z95.820 Peripheral vascular angioplasty status with implants and grafts; I10 Essential (primary) hypertension; I25.10 Atherosclerotic heart disease of native coronary artery without angina pectoris; E78.5 Hyperlipidemia, unspecified; Z79.82 Long term (current) use of aspirin; Z79.02 Long term (current) use of antithrombotics/antiplatelets; Z79.899 Other long term (current) drug therapy; Z79.84 Long term (current) use of oral hypoglycemic drugs; F17.210 Nicotine dependence, cigarettes, uncomplicated; F17.290 Nicotine dependence, other tobacco product, uncomplicated
CPT/HCPCS: 36200; 36245; 37252; 37253; 75625; 75710; 76937; 99152; 99153; C1753; C1760; C1769; C1887; C1894; Q9967

== ENCOUNTER 2024-07-21 08:00 | Outpatient (RCR) | payer MEDICARE, SELFPAY ==
[2024-06-30 08:05] VITALS: BP 151/55; PULSE 65; RESP 18; TEMP 36.1; BMI 24.1
--- NOTE | 2024-06-30 09:36 | PCM.WC.HP ---
History of Present Illness Date of Service: 06/30/24 Chief Complaint: Right hallux ulceration History of Wound: This is an 88-year-old female who presents to the wound care center for continued follow-up of a chronic right hallux ulceration. She underwent a debridement of the site to the level of bone removing portions of bone causing pressure for her neuropathic ulceration of the right hallux on 05/12/2024. She did undergo vascular procedure following this with Dr. Mccray. She is currently residing in [facility]. Family does inform me that facility has not been changing dressings as instructed. She continues ambulation in surgical shoe to the right foot. She did return to office on 06/15/24 and underwent local debridement and was placed on doxycycline 100 mg twice a day however family states that she does not believe she has been taking antibiotics as instructed. She was referred to the wound care center for continued care of her right hallux ulceration with planning for advanced wound care product placement. She denies constitutional symptoms. Denies further complaints. 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 Non-ST elevation SC (NSTEMI) Diabetic foot infection Sepsis Stenosis of right subclavian artery Normochromic normocytic anemia Incomplete prolapse of vaginal vault Non-pressure chronic ulcer of other part of left foot with fat layer exposed GI bleed 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 without evidence of necrosis Cellulitis of left toe Syncope Hematoma of frontal scalp Non-pressure chronic ulcer of other part of left foot with necrosis of bone Ulcer of left foot with bone involvement without evidence of necrosis Preoperative cardiovascular examination Carotid stenosis Aftercare following surgery of the circulatory system Syncope TIA (transient ischemic attack) Stroke/cerebrovascular accident Wears eyeglasses Depression Anxiety Alcohol abuse History of restless legs syndrome Hx of syncope Dietary restriction Difficulty swallowing Hx of heartburn COPD (chronic obstructive pulmonary disease) Hx of shortness of breath Hx of edema Hx of echocardiogram Hx of cardiovascular stress test Carotid stenosis Wears dentures Ambulates with cane Arthritis Easy bruising Prolapsed bladder Former smoker Cardiology follow-up encounter Cellulitis of left thigh Post-op pain Ischaemic rest pain of lower extremity Open wound of left foot Cellulitis of left foot Amputated toe Rectocele Cystocele Presence of stent in coronary artery (~07/04/11) Essential hypertension RBBB (right bundle branch block) Atherosclerotic heart disease of [place] coronary artery without angina pectoris HTN (hypertension) Osteoarthritis Diabetes Hyperlipidemia Carotid stenosis, bilateral BBB (bundle branch block) PAD (peripheral artery disease) Home Medications ?Medication ?Instructions ?Recorded ?Last Taken ?Type clopidogrel 75 mg tablet 75 mg PO DAILY platelet inhibitor 06/07/16 04/28/23 History multivitamin 1 tab PO DAILY SUPPLEMENT 04/28/19 04/28/23 History lisinopril 20 mg tablet 20 mg PO BID BP 01/01/21 04/28/23 History metoprolol tartrate 25 mg tablet 25 mg PO TID BP 01/01/21 04/28/23 History metformin 500 mg tablet,extended 500 mg PO BID DM 07/01/21 04/28/23 History release 24 hr cholecalciferol (vitamin D3) 25 25 mcg PO DAILY SUPPLEMENT 09/26/21 04/28/23 History mcg (1,000 unit) tablet (Vitamin D3) nitroglycerin 0.4 mg sublingual 0.4 mg sublingual Q5-15M PRN chest 02/12/23 Unknown Rx tablet pain #25 tabs amlodipine 10 mg tablet 10 mg PO DAILY bp 11/12/23 Unknown History aspirin 81 mg tablet,delayed 81 mg PO DAILY@0800 [facility] 05/16/24 Unknown Rx release #0 tabs dextromethorphan-guaifenesin 10 10 ml PO Q6H PRN PRN 05/27/24 Unknown Rx mg-100 mg/5 mL oral syrup COUGH/CONGESTION #0 mL hydralazine 25 mg tablet 25 mg PO BID #0 tabs 05/27/24 Unknown Rx menthol 0.44 %-zinc oxide 20.6 % 1 applic topical BID #0 grams 05/27/24 Unknown Rx topical ointment (Calmoseptine) oxycodone 5 mg tablet 5 mg PO Q6H PRN PRN Pain Score 05/27/24 Unknown Rx 4-10 3 days #12 tabs sodium chloride 0.65 % nasal spray 2 spray NASAL TID PRN PRN NASAL 05/27/24 Unknown Rx aerosol (Deep Sea Nasal) DRYNESS #0 mL oseltamivir 30 mg capsule 30 mg PO BID 3 days #0 caps 05/29/24 Unknown Rx Allergy/AdvReac Type Severity Reaction Status Date / Time pravastatin AdvReac Severe myalgias Verified 06/30/24 08:28 Rehaxyr-GBD-VgH Reductase AdvReac Severe myalgias Verified 06/30/24 08:28 Inhibitor Sulfa (Sulfonamide AdvReac Mild stomach Verified 06/30/24 08:28 Antibiotics) upset atorvastatin AdvReac myalgias Verified 06/30/24 08:28 Family History Father Diabetes Heart disease Brother Diabetes Colon cancer Brother Diabetes Surgical History Hx of toe surgery S/P bladder repair History of colonoscopy History of tonsillectomy Cataract extraction status of right eye Presence of coronary angioplasty implant and graft (~05/11/24) History of hemorrhoidectomy History of left-sided carotid endarterectomy Status post peripheral artery angioplasty History of heart artery stent History of hysterectomy Social History Smoking Status: Former smoker how long ago did patient quit smokin + years ago alcohol intake: current alcohol intake frequency: a few times a month Alcohol type: wine substance use type: does not use caffeine: Yes Type: coffee Number of servings: 2 what type of physical activity do you participate in: walking seatbelt use: always do you feel safe at home: Yes ROS Constitutional Constitutional: Denies anorexia, change in weight, chills, fatigue or fever(s) Eyes Eyes: Denies blurry vision, change in vision or double vision ENT HEENT: Denies dysphagia, sinus pressure or sore throat Cardiovascular Cardiovascular: Denies chest pain or palpitations Respiratory/Chest Respiratory/Chest: Denies cough, shortness of breath at rest or wheezing Gastrointestinal Gastrointestinal: Denies abdominal pain, constipation, diarrhea, nausea or vomiting Genitourinary Genitourinary: Denies dysuria, hematuria or urinary urgency Musculoskeletal Musculoskeletal: Denies joint pain, joint stiffness or joint swelling Integumentary Integumentary: Denies lesions, pruritus or rash Neurologic Neurologic: Denies dizziness, numbness or seizures Psychiatric Psychiatric: Denies anxiety or depression Endocrine Endocrinology: Denies cold intolerance, heat intolerance, polydipsia or polyuria Hematologic/Lymphatic Hematologic/Lymphatic: Denies easy bleeding or easy bruising Vital Signs Vital Signs Vital Signs: 06/30/24 08:05 Temperature 97 F L Temperature Source Temporal Pulse Rate 65 Respiratory Rate 18 Blood Pressure 151/55 H Blood Pressure Mean 87 Weight Weight: 63.796 kg Body Mass Index (BMI) 24.1 Physical Exam Const alert, oriented x3 and no apparent distress General Appearance: cooperative HEENT normocephalic Eyes General Eye: normal appearance of both eyes Neck General: normal visual inspection Lymph Lymphatic: no lymphadenopathy noted and no lymphedema noted Resp normal respiratory effort Cardio regular rate and regular rhythm Extremity no calf tenderness Extremity Narrative: Right lower extremity: Vascular: DP and PT pulses nonpalpable. CFT is delayed to digits. Does have dependent rubor with pallor on elevation. There is atrophic skin changes noted. Normal temperature gradient. Hair growth is absent to digits. Neurologic: Gross sensation intact. Light touch intact. Protective sensation is diminished consistent with diabetic peripheral polyneuropathy. Musculoskeletal: Muscle strength 5 of 5 and age-appropriate. Decreased range of motion of the ankle joint dorsiflexion with the knee extended without pain or crepitus. Decreased range of motion of the first metatarsophalangeal joint without pain or crepitus. No pain to palpation about the right hallux. No pain to palpation of calf. 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 Dermatologic: Full-thickness ulceration plantar hallux IPJ/dorsal hallux with eschar present in addition to yellow fibrotic tissue. Ulceration does probe close to bone. No erythema, no purulent drainage, no palpable fluctuance/bogginess noted, no visible abscess formation, no crepitus. There is a superficial dermal abrasion to the plantar lateral forefoot near the base of the fifth digit with no signs of infection. Skin no rashes or lesions noted and skin turgor normal Neuro moves all extremities Debridement Note Debridement Note Wound debrided: Right hallux Laterality: Right Wound Grade/Stage: Luciano stage III Type of Debridement: Excisional debridement Anesthesia Used: 5% Lidocaine Gel Depth: Down to and including healthy tissue and in the subcutaneous layer Percentage of wound debrided: 100 Instrument Used: 5mm curette and #15 blade Tissue Removed: Fibrous, devitalized subcutaneous, biofilm, slough Severity: Fat Layer Exposed Amount of bleeding with debridement: Mild Bleeding Controlled with: Compression and gauze Patient tolerated procedure: Patient tolerated procedure well Post-Debridement Measurements and Additional Note: Post-Debridement Measurements/Treatment WC - Nurse 1 - General Ulcer Assessment Start: 06/30/24 08:05 Freq: Status: Active Protocol: ESVIN Activity Type Activity Date Activity User E-sign Co-sign Detail Recorded Client Recorded Date Recorded By Document 06/30/24 08:05 DL [id number] 06/30/24 08:26 DL 06/30/24 08:05 WC - Today's Visit Information Type of service Follow-up Visit (Physician/PLASTICS PATTERNMAKER ) Arrival Mode Ambulatory, Walker Transfer Assistance None Patient Identification Verified (Name & Yes ) Finger Stick Blood Sugar(mg/dl) (if 125 indicated): Blood Sugar Stated by Patient Height and Weight Height 5 ft 4 in Weight 63.796 kg Weight in Pounds 140.6 lbs Weight Measurement Method Estimated by Patient Body Mass Index (BMI) 24.1 BMI Classification Normal Vital Signs Temperature (97.8 F-99.1 F) 97 F L Temperature Source Temporal Pulse Rate (60-100) 65 Pulse Location Monitor Respiratory Rate (12-18) 18 Respiratory rate source Observation Blood Pressure (90/60-120/80) 151/55 H Blood Pressure Mean 87 Pain Scale: 0-10 Numeric Is Patient Pain Free? Yes Neuropathy Assessment Feet - Top Side and Bottom <Entered> (a) Communication Assessment Preferred language Albanian Wind Site Manager Required No Able to Read Yes Able to Write Yes Communication Tools None Right Hearing Abillity Normal Left Hearing Abillity Normal Visual Assistive Devices Glasses Teaching Assessment Preferences Verbal,Written, Demonstration Barriers to Learning None Readiness To Learn Good Willingness to Engage in Self Management Med Activies Readiness to Engage in Self Management Med Activities Anxiety Level Calm Cooperation Cooperative Perception Coherent Interest in Health Problem Asks Questions Education Importance Acknowledges Need Does Patient Smoke tobacco or other Yes substances Smoking Status Former smoker Is Patient Diabetic Yes Functional Assessment Recent Decline in Ability to Perform Ambulation Culture/Jew/Medical Payment Poster Cultural/Jew Needs that may affect No Treatment Plan Would you allow our hospital electronic organ mechanic to No meet you for the purpose of spiritual/ emotional support? Medical Payment Poster to contact place of yazdanism No Teaching: Wound Center Discharge Instructions -Person Taught Patient Dressing Your Wound -Person Taught Patient (a) 1 - + SOPHIA - Nurse 1 - General Ulcer Measurement Start: 06/30/24 08:05 Freq: Status: Active Protocol: Activity Type Activity Date Activity User E-sign Co-sign Detail Recorded Client Recorded Date Recorded By Document 06/30/24 08:05 [id number] 06/30/24 08:26 DL 06/30/24 08:05 Wound Center Nurse 1 #6 R Grt Toe -Current Size (cm) - Length 2.2 -Current Size (cm) - Width 2.6 -Current Size (cm) - Depth 0.5 -Total Square Cm 5.72 -Photo Taken Yes -Classification - Thickness Full Thickness without Exposed Support Structure -Exudate Amt Medium -Exudate Type Serosanguineous -Wound Margin Distinct, Outline Attached -Granulation Amt None Present (0 %) -Necrosis Amt Large (67-100%) -Necrotic Tissue Type Adherent Slough -Structure Exposed N/A -Texture (Dot-wound Skin Appearance) Localized Edema ,Scarring -Moisture (Dot-wound Skin Appearance) No Abnormality -Color (Dot-wound Skin Appearance) Erythema -Temperature (Dot-wound Skin No Abnormality Appearance) (Pt Warm) -Tenderness on Palpation (Dot-wound No Skin Appearance) -Ulcer Cleansing Soap and Water -Foul Odor after Cleansing No -Anesthetic Used 5% Lidocaine Gel Right Calf (cm) 33.9 Right Ankle (cm) 23 Right Foot (cm) 35 Left Calf (cm) 23.5 WC - Nurse 2 - General Ulcer CM Notes Start: 06/30/24 08:05 Freq: Status: Active Protocol: Activity Type Activity Date Activity User E-sign Co-sign Detail Recorded Client Recorded Date Recorded By Document 06/30/24 08:43 [facility] [id number] 06/30/24 08:56 [facility] 06/30/24 08:43 Wound Center Nurse 2 #6 R Grt Toe -Time 08:44 -Correct Patient Yes -Correct Side, Site, Position Yes -Correct Procedure Yes -Procedure Performed Yes -Type of Procedure Debridement -Clinical Debridement Muscle / Fascia -Tissue Removed Muscle,Fascia -Post Debridement (cm) - Length 3 -Post Debridement (cm) - Width 2.5 -Post Debridement (cm) - Depth 0.7 -Total Square (Post) (cm) 7.5 -Area of Debridement (cm) - Length 3 -Area of Debridement (cm) - Width 2.5 -Total Square (Area) (cm) 7.5 -Tunneling No -Undermining/Tunneling No -Circular Undermining No -Wound/Ulcer Outcome Not Healed -Ulcer Cleansing Rinsed/ Irrigated with Saline -Foul Odor after Cleansing No -Bioengineered Tissue No -Bleeding Controlled with Pressure -Treatment Response Procedure Tolerated Well -Debridement - Muscle / Fascia, 1st Yes 20sq cm Pain Scale: 0-10 Numeric Is Patient Pain Free? Yes - Nurse 3 - General Ulcer D/C NN Start: 06/30/24 08:05 Freq: Status: Active Protocol: Activity Type Activity Date Activity User E-sign Co-sign Detail Recorded Client Recorded Date Recorded By Document 06/30/24 09:06 DL [id number] 06/30/24 09:17 DL 06/30/24 09:06 Wound Care Center Nurse 3 #6 R Grt Toe -Ulcer Cleansing Rinsed/ Irrigated with Saline -Foul Odor after Cleansing No -Other Dressing dakins -Primary Dressing Covered/Secured with Dry Gauze & Roll Gauze, Secured with Tape Treatment Response Procedure Tolerated Well Pain Scale: 0-10 Numeric Is Patient Pain Free? 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: CODE(S): L97.514 - Non-pressure chronic ulcer of other part of right foot with necrosis of bone (2) Type 2 diabetes mellitus with diabetic polyneuropathy: CODE(S): E11.42 - Type 2 diabetes mellitus with diabetic polyneuropathy QUALIFIERS: Diabetes mellitus residential insulin use: without residential use Qualified Code(s): E11.42 - Type 2 diabetes mellitus with diabetic polyneuropathy (3) Type 2 diabetes mellitus with foot ulcer: CODE(S): E11.621 - Type 2 diabetes mellitus with foot ulcer; L97.509 - Non-pressure chronic ulcer of other part of unspecified foot with unspecified severity (4) PAD (peripheral artery disease): CODE(S): I73.9 - Peripheral vascular disease, unspecified (5) Physical debility: CODE(S): R53.81 - Other malaise PLAN: Plan Patient seen and evaluated Predebridement measurement: 2.9 cm x 2.4 cm x 0.7 cm Ulceration underwent debridement as noted in the clinical panel above. Debridement does go down to the level of muscle and is in close proximity of bone. Postdebridement measurement 3.0 cm x 2.5 cm x 0.7 cm. No signs of infection. Ulceration site dressed with Dakin's and dry sterile dressing. Dressing is to be changed daily at her nursing facility. Patient had not been taking oral antibiotic as instructed thus another and antibiotic was prescribed as her healing status is complicated by peripheral vascular disease and diabetes. Rx doxycycline 100 mg twice daily x 14 days. Discussed continued protein intake to aid in wound healing. Discussed strict glycemic control to aid in wound healing. Will continue to follow with Dr. Mccray with possible additional vascular intervention to take place per family statement. Will apply for application of advanced wound care product as this will aid in wound healing. The following work up and care recommendations were made: Dressing: Dakin's wet to dry dressing. Dressing to be changed daily at [facility]. Wash: Dakin's Tissue growth optimization: None Offload: Continue offloading via surgical shoe to the right foot Vascular: Does have PVD continues to follow with Dr. Mccray for management. Edema: No edema noted Infection: No signs of infection noted. Currently utilizing Dakin's and will take oral antibiotic as stated above. Pain: No pain secondary to diabetic peripheral polyneuropathy. Host factors: DM type II with peripheral polyneuropathy, PVD, history of noncompliance complicates wound healing I answered all the patient's questions. To return to the wound healing center in 1 week or call sooner if the patient has any questions or concerns.
--- NOTE | 2024-07-01 12:22 | WC ---
PHOTO 06/30/24 RIGHT GREAT TOE
[2024-07-07 09:39] VITALS: BP 85/67; PULSE 58; RESP 16; TEMP 35.8; BMI 24.1
--- NOTE | 2024-07-07 09:39 | PN.PCM_ITS ---
History of Present Illness Date of Service: 07/07/24 Chief Complaint: Right hallux ulceration History of Wound: This is an 88-year-old female who presents to the wound care center for continued follow-up of a chronic right hallux ulceration. She underwent a debridement of the site to the level of bone removing portions of bone causing pressure for her neuropathic ulceration of the right hallux on 05/12/2024. She did undergo vascular procedure following this with Dr. Mccray. She is currently residing in [facility]. Family does inform me that facility has not been changing dressings as instructed. She continues ambulation in surgical shoe to the right foot. She did return to office on 06/15/24 and underwent local debridement and was placed on doxycycline 100 mg twice a day however family states that she does not believe she has been taking antibiotics as instructed. She was referred to the wound care center for continued care of her right hallux ulceration with planning for advanced wound care product placement. She denies constitutional symptoms. Denies further c omplaints. Subjective Subjective This is an 88-year-old female who presents to the wound care center today for continued follow-up of a right hallux ulceration. Daughter states she is frustrated with the current situation and [facility] in which they have not been applying dressings to the ulceration site and have been leaving exposed/open to air. States that at 1 point dressings were not applied for 3 consistent days and site was left open. She does continue to take oral antibiotic as instructed. Continues offloading with surgical shoe to right foot. States she does have cough and multiple people have been sick at her facility. Denies N/V/F/chills. Denies further complaints. Objective Data Objective Data Vital Signs: Vital Signs Temp Pulse Resp BP 97 F L 65 18 151/55 H 06/30/24 08:05 06/30/24 08:05 06/30/24 08:05 06/30/24 08:05 Weight: 63.796 kg Body Mass Index (BMI) 24.1 Physical Exam Const alert, oriented x3 and no apparent distress General Appearance: cooperative HEENT normocephalic Eyes General Eye: normal appearance of both eyes Neck General: normal visual inspection Lymph Lymphatic: no lymphadenopathy noted and no lymphedema noted Resp normal respiratory effort Cardio regular rate and regular rhythm Extremity no calf tenderness Extremity Narrative: Right lower extremity: Vascular: DP and PT pulses nonpalpable. CFT is delayed to digits. Does have dependent rubor with pallor on elevation. There is atrophic skin changes noted. Normal temperature gradient. Hair growth is absent to digits. Neurologic: Gross sensation intact. Light touch intact. Protective sensation is diminished consistent with diabetic peripheral polyneuropathy. Musculoskeletal: Muscle strength 5 of 5 and age-appropriate. Decreased range of motion of the ankle joint dorsiflexion with the knee extended without pain or crepitus. Decreased range of motion of the first metatarsophalangeal joint without pain or crepitus. No pain to palpation about the right hallux. No pain to palpation of calf. 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 Dermatologic: Full-thickness ulceration plantar hallux IPJ/dorsal hallux with eschar present in addition to yellow fibrotic tissue. Ulceration does probe close to bone. No erythema, no purulent drainage, no palpable fluctuance/bogginess noted, no visible abscess formation, no crepitus. There is a superficial dermal abrasion to the plantar lateral forefoot near the base of the fifth digit with no signs of infection. Skin no rashes or lesions noted and skin turgor normal Neuro moves all extremities Debridement Note Debridement Note Wound debrided: Right hallux Laterality: Right Wound Grade/Stage: Luciano stage III Type of Debridement: Excisional debridement Anesthesia Used: 5% Lidocaine Gel Depth: Down to and including healthy tissue, in the subcutaneous layer, to muscle and to bone Percentage of wound debrided: 100 Instrument Used: 5mm curette, #15 blade and Forceps Tissue Removed: Fibrous, devitalized subcutaneous, biofilm, slough, eschar Severity: Fat Layer Exposed Amount of bleeding with debridement: Mild Bleeding Controlled with: Compression and gauze Patient tolerated procedure: Patient tolerated procedure well Post-Debridement Measurements and Additional Note: Post-Debridement Measurements/Treatment - Nurse 1 - General Ulcer Assessment Start: 06/30/24 08:05 Freq: Status: Active Protocol: ESVIN Activity Type Activity Date Activity User E-sign Co-sign Detail Recorded Client Recorded Date Recorded By Document 06/30/24 08:05 DL [id number] 06/30/24 08:26 DL 06/30/24 08:05 SOPHIA - Today's Visit Information Type of service Follow-up Visit (Physician/TELECOMMUNICATIONS REPAIRER ) Arrival Mode Ambulatory, Walker Transfer Assistance None Patient Identification Verified (Name & Yes ) Finger Stick Blood Sugar(mg/dl) (if 125 indicated): Blood Sugar Stated by Patient Height and Weight Height 5 ft 4 in Weight 63.796 kg Weight in Pounds 140.6 lbs Weight Measurement Method Estimated by Patient Body Mass Index (BMI) 24.1 BMI Classification Normal Vital Signs Temperature (97.8 F-99.1 F) 97 F L Temperature Source Temporal Pulse Rate (60-100) 65 Pulse Location Monitor Respiratory Rate (12-18) 18 Respiratory rate source Observation Blood Pressure (90/60-120/80) 151/55 H Blood Pressure Mean (mm Hg) 87 Pain Scale: 0-10 Numeric Is Patient Pain Free? Yes Neuropathy Assessment Feet - Top Side and Bottom <Entered> (a) Communication Assessment Preferred language Bengali City Planner Required No Able to Read Yes Able to Write Yes Communication Tools None Right Hearing Abillity Normal Left Hearing Abillity Normal Visual Assistive Devices Glasses Teaching Assessment Preferences Verbal,Written, Demonstration Barriers to Learning None Readiness To Learn Good Willingness to Engage in Self Management Med Activies Readiness to Engage in Self Management Med Activities Anxiety Level Calm Cooperation Cooperative Perception Coherent Interest in Health Problem Asks Questions Education Importance Acknowledges Need Does Patient Smoke tobacco or other Yes substances Smoking Status Former smoker Is Patient Diabetic Yes Functional Assessment Recent Decline in Ability to Perform Ambulation Culture/Zoroastrian/Sales Team Manager Cultural/Zoroastrian Needs that may affect No Treatment Plan Would you allow our hospital catalyst unit operator to No meet you for the purpose of spiritual/ emotional support? Sales Team Manager to contact place of judaism No Teaching: Wound Center Discharge Instructions -Person Taught Patient Dressing Your Wound -Person Taught Patient (a) 1 - + WC - Nurse 1 - General Ulcer Measurement Start: 06/30/24 08:05 Freq: Status: Active Protocol: Activity Type Activity Date Activity User E-sign Co-sign Detail Recorded Client Recorded Date Recorded By Document 06/30/24 08:05 DL [id number] 06/30/24 08:26 DL 06/30/24 08:05 Wound Center Nurse 1 #6 R Grt Toe -Current Size (cm) - Length 2.2 -Current Size (cm) - Width 2.6 -Current Size (cm) - Depth 0.5 -Total Square Cm 5.72 -Photo Taken Yes -Classification - Thickness Full Thickness without Exposed Support Structure -Exudate Amt Medium -Exudate Type Serosanguineous -Wound Margin Distinct, Outline Attached -Granulation Amt None Present (0 %) -Necrosis Amt Large (67-100%) -Necrotic Tissue Type Adherent Slough -Structure Exposed N/A -Texture (Dot-wound Skin Appearance) Localized Edema ,Scarring -Moisture (Dot-wound Skin Appearance) No Abnormality -Color (Dot-wound Skin Appearance) Erythema -Temperature (Dot-wound Skin No Abnormality Appearance) (Pt Warm) -Tenderness on Palpation (Dot-wound No Skin Appearance) -Ulcer Cleansing Soap and Water -Foul Odor after Cleansing No -Anesthetic Used 5% Lidocaine Gel Right Calf (cm) 33.9 Right Ankle (cm) 23 Right Foot (cm) 35 Left Calf (cm) 23.5 WC - Nurse 2 - General Ulcer CM Notes Start: 06/30/24 08:05 Freq: Status: Active Protocol: Activity Type Activity Date Activity User E-sign Co-sign Detail Recorded Client Recorded Date Recorded By Document 06/30/24 08:43 [facility] [id number] 06/30/24 08:56 [facility] 06/30/24 08:43 Wound Center Nurse 2 #6 R Grt Toe -Time 08:44 -Correct Patient Yes -Correct Side, Site, Position Yes -Correct Procedure Yes -Procedure Performed Yes -Type of Procedure Debridement -Clinical Debridement Muscle / Fascia -Tissue Removed Muscle,Fascia -Post Debridement (cm) - Length 3 -Post Debridement (cm) - Width 2.5 -Post Debridement (cm) - Depth 0.7 -Total Square (Post) (cm) 7.5 -Area of Debridement (cm) - Length 3 -Area of Debridement (cm) - Width 2.5 -Total Square (Area) (cm) 7.5 -Tunneling No -Undermining/Tunneling No -Circular Undermining No -Wound/Ulcer Outcome Not Healed -Ulcer Cleansing Rinsed/ Irrigated with Saline -Foul Odor after Cleansing No -Bioengineered Tissue No -Bleeding Controlled with Pressure -Treatment Response Procedure Tolerated Well -Debridement - Muscle / Fascia, 1st Yes 20sq cm Pain Scale: 0-10 Numeric Is Patient Pain Free? Yes WC - Nurse 3 - General Ulcer D/C NN Start: 06/30/24 08:05 Freq: Status: Active Protocol: Activity Type Activity Date Activity User E-sign Co-sign Detail Recorded Client Recorded Date Recorded By Document 06/30/24 09:06 DL [id number] 06/30/24 09:17 DL 06/30/24 09:06 Wound Care Center Nurse 3 #6 R Grt Toe -Ulcer Cleansing Rinsed/ Irrigated with Saline -Foul Odor after Cleansing No -Other Dressing dakins -Primary Dressing Covered/Secured with Dry Gauze & Roll Gauze, Secured with Tape Treatment Response Procedure Tolerated Well Pain Scale: 0-10 Numeric Is Patient Pain Free? 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: CODE(S): L97.514 - Non-pressure chronic ulcer of other part of right foot with necrosis of bone (2) Type 2 diabetes mellitus with diabetic polyneuropathy: CODE(S): E11.42 - Type 2 diabetes mellitus with diabetic polyneuropathy QUALIFIERS: Diabetes mellitus nursing home insulin use: without nursing home use Qualified Code(s): E11.42 - Type 2 diabetes mellitus with diabetic polyneuropathy (3) Type 2 diabetes mellitus with foot ulcer: CODE(S): E11.621 - Type 2 diabetes mellitus with foot ulcer; L97.509 - Non-pressure chronic ulcer of other part of unspecified foot with unspecified severity (4) PAD (peripheral artery disease): CODE(S): I73.9 - Peripheral vascular disease, unspecified (5) Physical debility: CODE(S): R53.81 - Other malaise PLAN: Plan Patient seen and evaluated Predebridement measurement: 2.7 cm x 2.3 cm x 0.7 cm Ulceration underwent debridement as noted in the clinical panel above. Debridement does go down to the level of muscle and is in close proximity of bone. Postdebridement measurement 2.8 cm x 2.4 cm x 0.7 cm. No signs of infection. Ulceration site cleansed with Dakin's. Axiofill applied to ulcerat gordon site and dressed with Adaptic touch and anchored with Steri-Strips and dressed with dry sterile dressing. Dressing is to be left in place at her nursing facility. They are instructed not to get the site wet and use cast bag when showering to maintain compliance. There is some improvement in the ulceration versus previous visit. I have discussed with the patient she still does remain at high risk for amputation of the digit given her diabetic status and peripheral vascular disease which delays and complicates healing. She has started and continues taking her oral antibiotic as her healing status is complicated by peripheral vascular disease and diabetes. Rx doxycycline 100 mg twice daily x 14 days, 7 days remain. Discussed continued protein intake to aid in wound healing. Discussed strict glycemic control to aid in wound healing. Will continue to follow with Dr. Mccray with possible additional vascular intervention to take place per family statement. Will apply for application of advanced wound care product as this will aid in wound healing. The following work up and care recommendations were made: Dressing: Axiofill, Adaptic touch, Steri-Strips, dry sterile dressing. Dressing is to be left in place at [facility]. Do not change dressing. Do not get site wet. Wash: Do not get wet Tissue growth optimization: Axiofill Offload: Continue offloading via surgical shoe to the right foot Vascular: Does have PVD continues to follow with Dr. Mccray for management. Edema: No edema noted Infection: No signs of infection noted. Currently utilizing Dakin's and will take oral antibiotic as stated above. Pain: No pain secondary to diabetic peripheral polyneuropathy. Host factors: DM type II with peripheral polyneuropathy, PVD, history of noncompliance complicates wound healing I answered all the patient's questions. To return to the wound healing center in 1 week or call sooner if the patient has any questions or concerns.
[2024-07-14 08:39] VITALS: BP 137/42; PULSE 61; RESP 16; TEMP 36.3; BMI 24.1
--- NOTE | 2024-07-14 10:19 | PN.PCM_ITS ---
History of Present Illness Date of Service: 07/14/24 Chief Complaint: Right hallux ulceration History of Wound: This is an 88-year-old female who presents to the wound care center for continued follow-up of a chronic right hallux ulceration. She underwent a debridement of the site to the level of bone removing portions of bone causing pressure for her neuropathic ulceration of the right hallux on 05/12/2024. She did undergo vascular procedure following this with Dr. Mccray. She is currently residing in [facility]. Family does inform me that facility has not been changing dressings as instructed. She continues ambulation in surgical shoe to the right foot. She did return to office on 06/15/24 and underwent local debridement and was placed on doxycycline 100 mg twice a day however family states that she does not believe she has been taking antibiotics as instructed. She was referred to the wound care center for continued care of her right hallux ulceration with planning for advanced wound care product placement. She denies constitutional symptoms. Denies further c omplaints. Subjective Subjective This is an 88-year-old female who presents to the wound care center today for continued follow-up of a right hallux ulceration. Daughter states they have left dressings intact as instructed. She does continue to take oral antibiotic as instructed. Continues offloading with surgical shoe to right foot. Denies N/V/F/chills. Denies further complaints. Objective Data Objective Data Vital Signs: Vital Signs Temp Pulse Resp BP O2 Del Method 97.3 F L 61 16 137/42 H Room Air 07/14/24 08:39 07/14/24 08:39 07/14/24 08:39 07/14/24 08:39 07/14/24 08:39 Oxygen Delivery Method Room Air Weight: 63.796 kg Body Mass Index (BMI) 24.1 Physical Exam Const alert, oriented x3 and no apparent distress General Appearance: cooperative HEENT normocephalic Eyes General Eye: normal appearance of both eyes Neck General: normal visual inspection Lymph Lymphatic: no lymphadenopathy noted and no lymphedema noted Resp normal respiratory effort Cardio regular rate and regular rhythm Extremity no calf tenderness Extremity Narrative: Right lower extremity: Vascular: DP and PT pulses nonpalpable. CFT is delayed to digits. Does have dependent rubor with pallor on elevation. There is atrophic skin changes noted. Normal temperature gradient. Hair growth is absent to digits. Neurologic: Gross sensation intact. Light touch intact. Protective sensation is diminished consistent with diabetic peripheral polyneuropathy. Musculoskeletal: Muscle strength 5 of 5 and age-appropriate. Decreased range of motion of the ankle joint dorsiflexion with the knee extended without pain or crepitus. Decreased range of motion of the first metatarsophalangeal joint without pain or crepitus. No pain to palpation about the right hallux. No pain to palpation of calf. 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 Dermatologic: Full-thickness ulceration plantar hallux IPJ/dorsal hallux with eschar present in addition to yellow fibrotic tissue. Ulceration does probe close to bone. No erythema, no purulent drainage, no palpable fluctuance/bogginess noted, no visible abscess formation, no crepitus. There is a superficial dermal abrasion to the plantar lateral forefoot near the base of the fifth digit with no signs of infection. Skin no rashes or lesions noted and skin turgor normal Neuro moves all extremities Debridement Note Debridement Note Wound debrided: Right hallux Laterality: Right Wound Grade/Stage: Luciano stage III Type of Debridement: Excisional debridement Anesthesia Used: 5% Lidocaine Gel Depth: Down to and including healthy tissue, in the subcutaneous layer, to muscle and to bone Percentage of wound debrided: 100 Instrument Used: 5mm curette Tissue Removed: Fibrous, devitalized subcutaneous, biofilm, slough Severity: Fat Layer Exposed Amount of bleeding with debridement: Mild Bleeding Controlled with: Compression and gauze Patient tolerated procedure: Patient tolerated procedure well Post-Debridement Measurements and Additional Note: Post-Debridement Measurements/Treatment - Nurse 1 - General Ulcer Assessment Start: 06/30/24 08:05 Freq: Status: Active Protocol: ESVIN Activity Type Activity Date Activity User E-sign Co-sign Detail Recorded Client Recorded Date Recorded By Document 06/30/24 08:05 DL [id number] 06/30/24 08:26 DL Document 07/07/24 09:39 DL [id number] 07/07/24 09:47 DL Document 07/14/24 08:39 KW [id number] 07/14/24 08:50 KW 06/30/24 07/07/24 07/14/24 08:05 09:39 08:39 - Today's Visit Information Type of service Follow-up Visit Follow-up Visit Follow-up Visit (Physician/BANKER MASON (Physician/BANKER MASON (Physician/BANKER MASON ) ) ) Arrival Mode Ambulatory, Ambulatory, Ambulatory, Walker Walker Walker Transfer Assistance None None Accompanied by daughter Patient Identification Verified (Name & Yes Yes Yes ) Finger Stick Blood Sugar(mg/dl) (if 125 indicated): Blood Sugar Stated by Patient Height and Weight Height 5 ft 4 in Weight 63.796 kg Weight in Pounds 140.6 lbs Weight Measurement Method Estimated by Patient Body Mass Index (BMI) 24.1 24.1 24.1 BMI Classification Normal Normal Normal Vital Signs Temperature (97.8 F-99.1 F) 97 F L 96.5 F L 97.3 F L Temperature Source Temporal Temporal Temporal Pulse Rate (60-100) 65 58 L 61 Pulse Location Monitor Monitor Monitor Respiratory Rate (12-18) 18 16 16 Respiratory rate source Observation Observation Observation Oxygen Delivery Method Room Air Blood Pressure (90/60-120/80) 151/55 H 85/67 L 137/42 H Blood Pressure Mean (mm Hg) 87 73 73 Source Monitor Monitor Position Semi-Fowlers Blood Pressure Location Left Arm History Since Last Visit- (Skip if this is Patient's initial visit) Have you changed medications since your No No last visit? Any new allergies or adverse reactions No No Had a fall/change in ADL's that may No No increase risk of falls Signs or symptoms of abuse and/or No No neglect since last visit Have you been in the hospital since your No No last visit? Has dressing in place as prescribed Yes Yes Has compression in place as prescribed Yes N/A Has offloadiing in place as prescribed Yes Yes Experienced any changes in pain level or No No management Left Footwear Regular Shoe Right Footwear Surgical Shoe with pressure relief insole Pain Scale: 0-10 Numeric Is Patient Pain Free? Yes Yes Yes Neuropathy Assessment Feet - Top Side and Bottom <Entered> (a) Communication Assessment Preferred language [place]ian Cell Tuber Hand Required No Able to Read Yes Able to Write Yes Communication Tools None Right Hearing Abillity Normal Left Hearing Abillity Normal Visual Assistive Devices Glasses Teaching Assessment Preferences Verbal,Written, Demonstration Barriers to Learning None Readiness To Learn Good Willingness to Engage in Self Management Med Activies Readiness to Engage in Self Management Med Activities Anxiety Level Calm Cooperation Cooperative Perception Coherent Interest in Health Problem Asks Questions Education Importance Acknowledges Need Does Patient Smoke tobacco or other Yes substances Smoking Status Former smoker Is Patient Diabetic Yes Functional Assessment Recent Decline in Ability to Perform Ambulation Culture/Mu-Ism/Management Lead Cultural/Mu-Ism Needs that may affect No Treatment Plan Would you allow our hospital asset accountant to No meet you for the purpose of spiritual/ emotional support? Management Lead to contact place of temple No Teaching: Wound Center Discharge Instructions -Person Taught Patient Dressing Your Wound -Person Taught Patient (a) 1 - + WC - Nurse 1 - General Ulcer Measurement Start: 06/30/24 08:05 Freq: Status: Active Protocol: Activity Type Activity Date Activity User E-sign Co-sign Detail Recorded Client Recorded Date Recorded By Document 06/30/24 08:05 DL [id number] 06/30/24 08:26 DL Document 07/07/24 09:39 DL [id number] 07/07/24 09:47 DL Document 07/14/24 08:39 KW [id number] 07/14/24 08:50 KW 06/30/24 07/07/24 07/14/24 08:05 09:39 08:39 Wound Center Nurse 1 #6 R Grt Toe -Current Size (cm) - Length 2.2 2.6 2.5 -Current Size (cm) - Width 2.6 2.7 2 -Current Size (cm) - Depth 0.5 0.5 0.5 -Total Square Cm 5.72 7.02 5.0 -Date of Last Picture (Recall this 07/14/24 field) -Photo Taken Yes -Classification - Thickness Full Thickness without Exposed Support Structure -Exudate Amt Medium Medium Small -Exudate Type Serosanguineous Serosanguineous Serosanguineous -Wound Margin Distinct, Distinct, Distinct, Outline Outline Outline Attached Attached Attached -Granulation Amt None Present (0 None Present (0 Small (1-33%) %) %) -Granulation Quality [place] -Necrosis Amt Large (67-100%) Large (67-100%) Large (67-100%) -Necrotic Tissue Type Adherent Slough Adherent Slough Adherent Slough -Structure Exposed N/A Bone -Texture (Dot-wound Skin Appearance) Localized Edema Localized Edema Assessed ,Scarring ,Scarring -Moisture (Dot-wound Skin Appearance) No Abnormality No Abnormality Assessed, Maceration -Color (Dot-wound Skin Appearance) Erythema Erythema Assessed -Temperature (Dot-wound Skin No Abnormality No Abnormality No Abnormality Appearance) (Pt Warm) (Pt Warm) (Pt Warm) -Tenderness on Palpation (Dot-wound No No No Skin Appearance) -Ulcer Cleansing Soap and Water Soap and Water Soap and Water -Foul Odor after Cleansing No No No -Anesthetic Used 5% Lidocaine 5% Lidocaine 5% Lidocaine Gel Gel Gel Right Calf (cm) 33.9 Right Ankle (cm) 23 Right Foot (cm) 35 Left Calf (cm) 23.5 WC - Nurse 2 - General Ulcer CM Notes Start: 06/30/24 08:05 Freq: Status: Active Protocol: Activity Type Activity Date Activity User E-sign Co-sign Detail Recorded Client Recorded Date Recorded By Document 06/30/24 08:43 [facility] [id number] 06/30/24 08:56 [facility] Document 07/07/24 09:55 [facility] [id number] 07/07/24 10:21 [facility] Document 07/14/24 09:18 [facility] [id number] 07/14/24 09:36 [facility] 06/30/24 07/07/24 07/14/24 08:43 09:55 09:18 Wound Center Nurse 2 #6 R Grt Toe -Time 08:44 09:55 09:19 -Correct Patient Yes Yes Yes -Correct Side, Site, Position Yes Yes Yes -Correct Procedure Yes Yes Yes -Procedure Performed Yes Yes Yes -Type of Procedure Debridement Debridement Debridement -Clinical Debridement Muscle / Fascia Bone Bone -Tissue Removed Muscle,Fascia Slough,Non- viable tissue -Post Debridement (cm) - Length 3 2.8 2.6 -Post Debridement (cm) - Width 2.5 2.4 2.5 -Post Debridement (cm) - Depth 0.7 0.7 0.7 -Total Square (Post) (cm) 7.5 6.72 6.50 -Area of Debridement (cm) - Length 3 2.8 2.6 -Area of Debridement (cm) - Width 2.5 2.4 2.5 -Total Square (Area) (cm) 7.5 6.72 6.50 -Tunneling No No No -Undermining/Tunneling No No No -Circular Undermining No No No -Wound/Ulcer Outcome Not Healed Not Healed Not Healed -Ulcer Cleansing Rinsed/ Rinsed/ Rinsed/ Irrigated with Irrigated with Irrigated with Saline Saline Saline -Foul Odor after Cleansing No No No -Bioengineered Tissue No No No -Bleeding Controlled with Pressure Pressure Pressure -Treatment Response Procedure Procedure Procedure Tolerated Well Tolerated Well Tolerated Well -Offloading Yes -Type of Offloading Surgical Shoe -Total Non-Weight Bearing to Right Lower Extremity -Debridement - Muscle / Fascia, 1st Yes 20sq cm -Debridement - Bone, 1st 20sq cm Yes Yes Pain Scale: 0-10 Numeric Is Patient Pain Free? Yes Yes Yes - Nurse 3 - General Ulcer D/C NN Start: 06/30/24 08:05 Freq: Status: Active Protocol: Activity Type Activity Date Activity User E-sign Co-sign Detail Recorded Client Recorded Date Recorded By Document 06/30/24 09:06 DL [id number] 06/30/24 09:17 DL Document 07/07/24 10:40 [facility] [id number] 07/07/24 10:41 BM Document 07/14/24 09:54 GM [id number] 07/14/24 09:55 GM 06/30/24 07/07/24 07/14/24 09:06 10:40 09:54 Wound Care Center Nurse 3 #6 R Grt Toe -Ulcer Cleansing Rinsed/ Irrigated with Saline -Foul Odor after Cleansing No -Other Dressing dakins axiofill -Primary Dressing Covered/Secured with Dry Gauze & Dry Gauze, Roll Gauze, Secured with Secured with Tape Tape Treatment Response Procedure Procedure Tolerated Well Tolerated Well Pain Scale: 0-10 Numeric Is Patient Pain Free? 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: CODE(S): L97.514 - Non-pressure chronic ulcer of other part of right foot with necrosis of bone (2) Type 2 diabetes mellitus with diabetic polyneuropathy: CODE(S): E11.42 - Type 2 diabetes mellitus with diabetic polyneuropathy QUALIFIERS: Diabetes mellitus meterman insulin use: without alf use Qualified Code(s): E11.42 - Type 2 diabetes mellitus with diabetic polyneuropathy (3) Type 2 diabetes mellitus with foot ulcer: CODE(S): E11.621 - Type 2 diabetes mellitus with foot ulcer; L97.509 - Non-pressure chronic ulcer of other part of unspecified foot with unspecified severity (4) PAD (peripheral artery disease): CODE(S): I73.9 - Peripheral vascular disease, unspecified (5) Physical debility: CODE(S): R53.81 - Other malaise PLAN: Plan Patient seen and evaluated Predebridement measurement: 2.5 cm x 2.4 cm x 0.7 cm Ulceration underwent debridement as noted in the clinical panel above. Debridement does go down to the level of muscle and is in close proximity of bone. Postdebridement measurement 2.6 cm x 2.5 cm x 0.7 cm. No signs of infection. Ulceration site cleansed with Dakin's. Axiofill applied to ulcerative site and dressed with Adaptic touch and anchored with Steri-Strips and dressed with dry sterile dressing. Dressing is to be left in place at her nursing facility. They are instructed not to get the site wet and use cast bag when showering to maintain compliance. There is some slight improvement in the ulceration versus previous visit. I have discussed with the patient she still does remain at high risk for amputation of the digit given her diabetic status and peripheral vascular disease which delays and complicates healing. I have also discussed with patient and daughter if progression continues to remain slow with healing right hallux amputation may be required for definitive healing as open wound remains infection risk. They are understanding of this and will consider moving forward with amputation if not progressing at next visit. She continues taking her oral antibiotic as her healing status is complicated by peripheral vascular disease and diabetes. Rx doxycycline 100 mg twice daily. This was extended for an additional 28 days today with new stop date 08/11/2024. Discussed continued protein intake to aid in wound healing. Discussed strict glycemic control to aid in wound healing. Will continue to follow with Dr. Mccray with possible additional vascular intervention to take place per family statement. Will apply for application of advanced wound care product as this will aid in wound healing. The following work up and care recommendations were made: Dressing: Axiofill, Adaptic touch, Steri-Strips, dry sterile dressing. Dressing is to be left in place at [facility]. Do not change dressing. Do not get site wet. Wash: Do not get wet Tissue growth optimization: Axiofill Offload: Continue offloading via surgical shoe to the right foot Vascular: Does have PVD continues to follow with Dr. Mccray for management. Edema: No edema noted Infection: No signs of infection noted. Currently utilizing Dakin's and will take oral antibiotic as stated above. Pain: No pain secondary to diabetic peripheral polyneuropathy. Host factors: DM type II with peripheral polyneuropathy, PVD, history of noncompliance complicates wound healing I answered all the patient's questions. To return to the wound healing center in 1 week or call sooner if the patient has any questions or concerns.
--- NOTE | 2024-07-15 12:20 | WC ---
PHOTO 07/14/24 Right Great Toe
[2024-07-21 08:24] VITALS: BP 145/48; PULSE 61; RESP 18; TEMP 35.8; BMI 24.1
--- NOTE | 2024-07-21 09:38 | PN.PCM_ITS ---
History of Present Illness Date of Service: 07/21/24 Chief Complaint: Right hallux ulceration History of Wound: This is an 88-year-old female who presents to the wound care center for continued follow-up of a chronic right hallux ulceration. She underwent a debridement of the site to the level of bone removing portions of bone causing pressure for her neuropathic ulceration of the right hallux on 05/12/2024. She did undergo vascular procedure following this with Dr. Mccray. She is currently residing in [facility]. Family does inform me that facility has not been changing dressings as instructed. She continues ambulation in surgical shoe to the right foot. She did return to office on 06/15/24 and underwent local debridement and was placed on doxycycline 100 mg twice a day however family states that she does not believe she has been taking antibiotics as instructed. She was referred to the wound care center for continued care of her right hallux ulceration with planning for advanced wound care product placement. She denies constitutional symptoms. Denies further c omplaints. Subjective Subjective This is an 88-year-old female who presents to the wound care center today for continued follow-up of a right hallux ulceration. Daughter states they have left dressings intact as instructed. She does continue to take oral antibiotic as instructed. Continues offloading with surgical shoe to right foot. Patient and daughter continue to complain about fpc stating that they just want her to go home and be on her own. Patient understands our discussion from last week pertaining to amputation of the toe but does not seem to want to proceed as she feels she will heal. Denies N/V/F/chills. Denies further complaints. Objective Data Objective Data Vital Signs: Vital Signs Temp Pulse Resp BP O2 Del Method 96.4 F L 61 18 145/48 H Room Air 07/21/24 08:24 07/21/24 08:24 07/21/24 08:24 07/21/24 08:24 07/21/24 08:24 Oxygen Delivery Method Room Air Weight: 63.796 kg Body Mass Index (BMI) 24.1 Physical Exam Const alert, oriented x3 and no apparent distress General Appearance: cooperative HEENT normocephalic Eyes General Eye: normal appearance of both eyes Neck General: normal visual inspection Lymph Lymphatic: no lymphadenopathy noted and no lymphedema noted Resp normal respiratory effort Cardio regular rate and regular rhythm Extremity no calf tenderness Extremity Narrative: Right lower extremity: Vascular: DP and PT pulses nonpalpable. CFT is delayed to digits. Does have dependent rubor with pallor on elevation. There is atrophic skin changes noted. Normal temperature gradient. Hair growth is absent to digits. Neurologic: Gross sensation intact. Light touch intact. Protective sensation is diminished consistent with diabetic peripheral polyneuropathy. Musculoskeletal: Muscle strength 5 of 5 and age-appropriate. Decreased range of motion of the ankle joint dorsiflexion with the knee extended without pain or crepitus. Decreased range of motion of the first metatarsophalangeal joint without pain or crepitus. No pain to palpation about the right hallux. No pain to palpation of calf. 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 Dermatologic: Full-thickness ulceration plantar hallux IPJ/dorsal hallux with eschar present in addition to yellow to white fibrotic tissue. Ulceration does probe close to bone. Dorsal distal phalanx covered by thin layer of firbotic tissue but this is essentially to bone with exposure. No erythema, no purulent drainage, no palpable fluctuance/bogginess noted, no visible abscess formation, no crepitus. There is a superficial dermal abrasion to the plantar lateral forefoot near the base of the fifth digit with no signs of infection. Skin no rashes or lesions noted and skin turgor normal Neuro moves all extremities Debridement Note Debridement Note Wound debrided: Right hallux Laterality: Right Wound Grade/Stage: Luciano stage I Type of Debridement: Excisional debridement Anesthesia Used: 5% Lidocaine Gel and Cetacaine Depth: Down to and including healthy tissue, in the subcutaneous layer, to muscle and to bone Percentage of wound debrided: 100 Instrument Used: 5mm curette Tissue Removed: Fibrous, devitalized subcutaneous, biofilm, slough Severity: Fat Layer Exposed Amount of bleeding with debridement: Mild Bleeding Controlled with: Compression and gauze Patient tolerated procedure: Patient tolerated procedure well Post-Debridement Measurements and Additional Note: Post-Debridement Measurements/Treatment SOPHIA - Nurse 1 - General Ulcer Assessment Start: 06/30/24 08:05 Freq: Status: Active Protocol: SOPHIA.LOWEXT Activity Type Activity Date Activity User E-sign Co-sign Detail Recorded Client Recorded Date Recorded By Document 06/30/24 08:05 DL [id number] 02/06/25 08:26 DL Document 07/07/24 09:39 DL [id number] 07/07/24 09:47 DL Document 07/14/24 08:39 KW [id number] 07/14/24 08:50 KW Document 07/21/24 08:24 KW [id number] 07/21/24 08:31 KW 06/30/24 07/07/24 07/14/24 08:05 09:39 08:39 WC - Today's Visit Information Type of service Follow-up Visit Follow-up Visit Follow-up Visit (Physician/PRESS MACHINE OPERATOR (Physician/PRESS MACHINE OPERATOR (Physician/PRESS MACHINE OPERATOR ) ) ) Arrival Mode Ambulatory, Ambulatory, Ambulatory, Walker Walker Walker Transfer Assistance None None Accompanied by daughter Patient Identification Verified (Name & Yes Yes Yes ) Finger Stick Blood Sugar(mg/dl) (if 125 indicated): Blood Sugar Stated by Patient Height and Weight Height 5 ft 4 in Weight 63.796 kg Weight in Pounds 140.6 lbs Weight Measurement Method Estimated by Patient Body Mass Index (BMI) 24.1 24.1 24.1 BMI Classification Normal Normal Normal Vital Signs Temperature (97.8 F-99.1 F) 97 F L 96.5 F L 97.3 F L Temperature Source Temporal Temporal Temporal Pulse Rate (60-100) 65 58 L 61 Pulse Location Monitor Monitor Monitor Respiratory Rate (12-18) 18 16 16 Respiratory rate source Observation Observation Observation Oxygen Delivery Method Room Air Blood Pressure (90/60-120/80) 151/55 H 85/67 L 137/42 H Blood Pressure Mean (mm Hg) 87 73 73 Source Monitor Monitor Position Semi-Fowlers Blood Pressure Location Left Arm History Since Last Visit- (Skip if this is Patient's initial visit) Have you changed medications since your No No last visit? Any new allergies or adverse reactions No No Had a fall/change in ADL's that may No No increase risk of falls Signs or symptoms of abuse and/or No No neglect since last visit Have you been in the hospital since your No No last visit? Has dressing in place as prescribed Yes Yes Has compression in place as prescribed Yes N/A Has offloadiing in place as prescribed Yes Yes Experienced any changes in pain level or No No management Left Footwear Regular Shoe Right Footwear Surgical Shoe with pressure relief insole Pain Scale: 0-10 Numeric Is Patient Pain Free? Yes Yes Yes Neuropathy Assessment Feet - Top Side and Bottom <Entered> (a) Communication Assessment Preferred language [place] Citizen Avionics Electronics Technician Required No Able to Read Yes Able to Write Yes Communication Tools None Right Hearing Abillity Normal Left Hearing Abillity Normal Visual Assistive Devices Glasses Teaching Assessment Preferences Verbal,Written, Demonstration Barriers to Learning None Readiness To Learn Good Willingness to Engage in Self Management Med Activies Readiness to Engage in Self Management Med Activities Anxiety Level Calm Cooperation Cooperative Perception Coherent Interest in Health Problem Asks Questions Education Importance Acknowledges Need Does Patient Smoke tobacco or other Yes substances Smoking Status Former smoker Is Patient Diabetic Yes Functional Assessment Recent Decline in Ability to Perform Ambulation Culture/Sabianist/Molding Machine Tender Cultural/Sabianist Needs that may affect No Treatment Plan Would you allow our hospital senior laboratory technician to No meet you for the purpose of spiritual/ emotional support? Molding Machine Tender to contact place of baptism No Teaching: Wound Center Discharge Instructions -Person Taught Patient Dressing Your Wound -Person Taught Patient 07/21/24 08:24 WC - Today's Visit Information Type of service Follow-up Visit (Physician/PRESS MACHINE OPERATOR ) Arrival Mode Ambulatory, Walker Transfer Assistance Accompanied by daughter Patient Identification Verified (Name & Yes ) Finger Stick Blood Sugar(mg/dl) (if indicated): Blood Sugar Height and Weight Height Weight Weight in Pounds Weight Measurement Method Body Mass Index (BMI) 24.1 BMI Classification Normal Vital Signs Temperature (97.8 F-99.1 F) 96.4 F L Temperature Source Temporal Pulse Rate (60-100) 61 Pulse Location Monitor Respiratory Rate (12-18) 18 Respiratory rate source Observation Oxygen Delivery Method Room Air Blood Pressure (90/60-120/80) 145/48 H Blood Pressure Mean (mm Hg) 80 Source Monitor Position Semi-Fowlers Blood Pressure Location Left Arm History Since Last Visit- (Skip if this is Patient's initial visit) Have you changed medications since your No last visit? Any new allergies or adverse reactions No Had a fall/change in ADL's that may No increase risk of falls Signs or symptoms of abuse and/or No neglect since last visit Have you been in the hospital since your No last visit? Has dressing in place as prescribed Yes Has compression in place as prescribed N/A Has offloadiing in place as prescribed Yes Experienced any changes in pain level or No management Left Footwear Regular Shoe Right Footwear Surgical Shoe with pressure relief insole Pain Scale: 0-10 Numeric Is Patient Pain Free? Yes Neuropathy Assessment Feet - Top Side and Bottom Communication Assessment Preferred language and literature division chair Required Able to Read Able to Write Communication Tools Right Hearing Abillity Left Hearing Abillity Visual Assistive Devices Teaching Assessment Preferences Barriers to Learning Readiness To Learn Willingness to Engage in Self Management Activies Readiness to Engage in Self Management Activities Anxiety Level Cooperation Perception Interest in Health Problem Education Importance Does Patient Smoke tobacco or other substances Smoking Status Is Patient Diabetic Functional Assessment Recent Decline in Ability to Perform Culture/Sabianist/Molding Machine Tender Cultural/Sabianist Needs that may affect Treatment Plan Would you allow our hospital senior laboratory technician to meet you for the purpose of spiritual/ emotional support? Molding Machine Tender to contact place of baptism Teaching: Wound Center Discharge Instructions -Person Taught Dressing Your Wound -Person Taught (a) 1 - + WC - Nurse 1 - General Ulcer Measurement Start: 06/30/24 08:05 Freq: Status: Active Protocol: Activity Type Activity Date Activity User E-sign Co-sign Detail Recorded Client Recorded Date Recorded By Document 06/30/24 08:05 DL [id number] 06/30/24 08:26 DL Document 07/07/24 09:39 DL [id number] 07/07/24 09:47 DL Document 07/14/24 08:39 KW [id number] 07/14/24 08:50 KW Document 07/21/24 08:24 KW [id number] 07/21/24 08:31 KW 06/30/24 07/07/24 07/14/24 08:05 09:39 08:39 Wound Center Nurse 1 #6 R Grt Toe -Current Size (cm) - Length 2.2 2.6 2.5 -Current Size (cm) - Width 2.6 2.7 2 -Current Size (cm) - Depth 0.5 0.5 0.5 -Total Square Cm 5.72 7.02 5.0 -Date of Last Picture (Recall this 07/14/24 field) -Photo Taken Yes -Classification - Thickness Full Thickness without Exposed Support Structure -Exudate Amt Medium Medium Small -Exudate Type Serosanguineous Serosanguineous Serosanguineous -Wound Margin Distinct, Distinct, Distinct, Outline Outline Outline Attached Attached Attached -Granulation Amt None Present (0 None Present (0 Small (1-33%) %) %) -Granulation Quality [place] -Necrosis Amt Large (67-100%) Large (67-100%) Large (67-100%) -Necrotic Tissue Type Adherent Slough Adherent Slough Adherent Slough -Structure Exposed N/A Bone -Texture (Dot-wound Skin Appearance) Localized Edema Localized Edema Assessed ,Scarring ,Scarring -Moisture (Dot-wound Skin Appearance) No Abnormality No Abnormality Assessed, Maceration -Color (Dot-wound Skin Appearance) Erythema Erythema Assessed -Temperature (Dot-wound Skin No Abnormality No Abnormality No Abnormality Appearance) (Pt Warm) (Pt Warm) (Pt Warm) -Tenderness on Palpation (Dot-wound No No No Skin Appearance) -Ulcer Cleansing Soap and Water Soap and Water Soap and Water -Foul Odor after Cleansing No No No -Anesthetic Used 5% Lidocaine 5% Lidocaine 5% Lidocaine Gel Gel Gel Right Calf (cm) 33.9 Right Ankle (cm) 23 Right Foot (cm) 35 Left Calf (cm) 23.5 07/21/24 08:24 Wound Center Nurse 1 #6 R Grt Toe -Current Size (cm) - Length 2.1 -Current Size (cm) - Width 2.1 -Current Size (cm) - Depth 0.6 -Total Square Cm 4.41 -Date of Last Picture (Recall this 07/21/24 field) -Photo Taken -Classification - Thickness -Exudate Amt Medium -Exudate Type Serosanguineous -Wound Margin Distinct, Outline Attached -Granulation Amt Small (1-33%) -Granulation Quality [place] -Necrosis Amt Large (67-100%) -Necrotic Tissue Type Adherent Slough -Structure Exposed -Texture (Dot-wound Skin Appearance) Assessed -Moisture (Dot-wound Skin Appearance) Assessed, Maceration -Color (Dot-wound Skin Appearance) Assessed -Temperature (Dot-wound Skin No Abnormality Appearance) (Pt Warm) -Tenderness on Palpation (Dot-wound No Skin Appearance) -Ulcer Cleansing Soap and Water -Foul Odor after Cleansing No -Anesthetic Used 5% Lidocaine Gel Right Calf (cm) Right Ankle (cm) Right Foot (cm) Left Calf (cm) WC - Nurse 2 - General Ulcer CM Notes Start: 06/30/24 08:05 Freq: Status: Active Protocol: Activity Type Activity Date Activity User E-sign Co-sign Detail Recorded Client Recorded Date Recorded By Document 06/30/24 08:43 [facility] [id number] 06/30/24 08:56 [facility] Document 07/07/24 09:55 [facility] [id number] 07/07/24 10:21 [facility] Document 07/14/24 09:18 [facility] [id number] 07/14/24 09:36 [facility] Document 07/21/24 09:06 [facility] [id number] 07/21/24 09:16 [facility] 06/30/24 07/07/24 07/14/24 08:43 09:55 09:18 Wound Center Nurse 2 #6 R Grt Toe -Time 08:44 09:55 09:19 -Correct Patient Yes Yes Yes -Correct Side, Site, Position Yes Yes Yes -Correct Procedure Yes Yes Yes -Procedure Performed Yes Yes Yes -Type of Procedure Debridement Debridement Debridement -Clinical Debridement Muscle / Fascia Bone Bone -Tissue Removed Muscle,Fascia Slough,Non- viable tissue -Post Debridement (cm) - Length 3 2.8 2.6 -Post Debridement (cm) - Width 2.5 2.4 2.5 -Post Debridement (cm) - Depth 0.7 0.7 0.7 -Total Square (Post) (cm) 7.5 6.72 6.50 -Area of Debridement (cm) - Length 3 2.8 2.6 -Area of Debridement (cm) - Width 2.5 2.4 2.5 -Total Square (Area) (cm) 7.5 6.72 6.50 -Tunneling No No No -Undermining/Tunneling No No No -Circular Undermining No No No -Wound/Ulcer Outcome Not Healed Not Healed Not Healed -Ulcer Cleansing Rinsed/ Rinsed/ Rinsed/ Irrigated with Irrigated with Irrigated with Saline Saline Saline -Foul Odor after Cleansing No No No -Bioengineered Tissue No No No -Bleeding Controlled with Pressure Pressure Pressure -Treatment Response Procedure Procedure Procedure Tolerated Well Tolerated Well Tolerated Well -Offloading Yes -Type of Offloading Surgical Shoe -Total Non-Weight Bearing to Right Lower Extremity -Debridement - Muscle / Fascia, 1st Yes 20sq cm -Debridement - Bone, 1st 20sq cm Yes Yes Pain Scale: 0-10 Numeric Is Patient Pain Free? Yes Yes Yes 07/21/24 09:06 Wound Center Nurse 2 #6 R Grt Toe -Time 09:06 -Correct Patient Yes -Correct Side, Site, Position Yes -Correct Procedure Yes -Procedure Performed Yes -Type of Procedure Debridement -Clinical Debridement Bone -Tissue Removed -Post Debridement (cm) - Length 2.5 -Post Debridement (cm) - Width 2.4 -Post Debridement (cm) - Depth 0.7 -Total Square (Post) (cm) 6.00 -Area of Debridement (cm) - Length 2.5 -Area of Debridement (cm) - Width 2.4 -Total Square (Area) (cm) 6.00 -Tunneling No -Undermining/Tunneling No -Circular Undermining No -Wound/Ulcer Outcome Not Healed -Ulcer Cleansing Rinsed/ Irrigated with Saline -Foul Odor after Cleansing No -Bioengineered Tissue No -Bleeding Controlled with Pressure -Treatment Response Procedure Tolerated Well -Offloading -Type of Offloading -Total Non-Weight Bearing to -Debridement - Muscle / Fascia, 1st 20sq cm -Debridement - Bone, 1st 20sq cm Yes Pain Scale: 0-10 Numeric Is Patient Pain Free? Yes - Nurse 3 - General Ulcer D/C NN Start: 06/30/24 08:05 Freq: Status: Active Protocol: Activity Type Activity Date Activity User E-sign Co-sign Detail Recorded Client Recorded Date Recorded By Document 06/30/24 09:06 DL [id number] 06/30/24 09:17 DL Document 07/07/24 10:40 [facility] [id number] 07/07/24 10:41 [facility] Document 07/14/24 09:54 GM [id number] 07/14/24 09:55 GM Document 07/21/24 09:30 DL [id number] 07/21/24 09:30 DL 06/30/24 07/07/24 07/14/24 09:06 10:40 09:54 Wound Care Center Nurse 3 #6 R Grt Toe -Ulcer Cleansing Rinsed/ Irrigated with Saline -Foul Odor after Cleansing No -Other Dressing dakins axiofill -Primary Dressing Covered/Secured with Dry Gauze & Dry Gauze, Roll Gauze, Secured with Secured with Tape Tape Treatment Response Procedure Procedure Tolerated Well Tolerated Well Pain Scale: 0-10 Numeric Is Patient Pain Free? Yes Yes Yes - Visit Discharge Discharge Condition Stable Stable Stable Ambulatory Status Ambulatory, Ambulatory, Ambulatory, Walker Walker Walker Transportation Private Auto Private Auto Private Auto Accompanied by omero norman Facility Type Shelter Care Shelter Care Facility Facility Orders Sent Yes #6 R Grt Toe -Ulcer Cleansing Not Cleansed -Foul Odor after Cleansing No -Negative Pressure Wound Therapy N/A -Other Dressing -Primary Dressing Covered/Secured with Dry Gauze & Roll Gauze, Secured with Tape Treatment Response 07/21/24 09:30 Wound Care Center Nurse 3 #6 R Grt Toe -Ulcer Cleansing -Foul Odor after Cleansing -Other Dressing -Primary Dressing Covered/Secured with Treatment Response Pain Scale: 0-10 Numeric Is Patient Pain Free? 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: CODE(S): L97.514 - Non-pressure chronic ulcer of other part of right foot with necrosis of bone (2) Type 2 diabetes mellitus with diabetic polyneuropathy: CODE(S): E11.42 - Type 2 diabetes mellitus with diabetic polyneuropathy QUALIFIERS: Diabetes mellitus longterm insulin use: without longterm use Qualified Code(s): E11.42 - Type 2 diabetes mellitus with diabetic polyneuropathy (3) Type 2 diabetes mellitus with foot ulcer: CODE(S): E11.621 - Type 2 diabetes mellitus with foot ulcer; L97.509 - Non-pressure chronic ulcer of other part of unspecified foot with unspecified severity (4) PAD (peripheral artery disease): CODE(S): I73.9 - Peripheral vascular disease, unspecified (5) Physical debility: CODE(S): R53.81 - Other malaise PLAN: Plan Patient seen and evaluated Predebridement measurement: 2.4 cm x 2.3 cm x 0.7 cm Ulceration underwent debridement as noted in the clinical panel above. Debridement does go down to the level of bone. Postdebridement measurement 2.5 cm x 2.4 cm x 0.7 cm. No signs of infection. Ulceration site cleansed with Dakin's. Betadine soaked gauze to the ulcer site and dressed with dry sterile dressing. Facility to change dressing daily. There is some slight improvement in the ulceration versus previous visit. I have discussed with the patient she still does remain at high risk for amputation of the digit given her diabetic status and peripheral vascular disease which delays and complicates healing. I have also discussed with patient and daughter that progression continues to remain slow with healing and right hallux amputation may be required for definitive healing as open wound with close proximity/exposure of the distal phalanx bone remains infection risk for chronic osteomyelitis. They are understanding of this and will consider moving forward with amputation but would like a second opinion from Dr. Tiwari next Thursday. She continues taking her oral antibiotic as her healing status is complicated by peripheral vascular disease and diabetes. Rx doxycycline 100 mg twice daily. This was extended for an additional 28 days today with new stop date 08/11/2024. Discussed continued protein intake to aid in wound healing. Discussed strict glycemic control to aid in wound healing. Will continue to follow with Dr. Mccray with possible additional vascular intervention to take place per family statement. Will see Dr. Mccray today. Will apply for application of advanced wound care product as this will aid in wound healing. The following work up and care recommendations were made: Dressing: Betadine soaked gauze and dry sterile dressing. Change dressing daily Wash: Do not get wet Tissue growth optimization: None Offload: Continue offloading via surgical shoe to the right foot Vascular: Does have PVD continues to follow with Dr. Mccray for management. Edema: No edema noted Infection: No signs of infection noted. Currently utilizing Dakin's and will take oral antibiotic as stated above. Pain: No pain secondary to diabetic peripheral polyneuropathy. Host factors: DM type II with peripheral polyneuropathy, PVD, history of noncompliance complicates wound healing Will see Dr. Tiwari thursday discussed next steps with likely amputation of the right hallux to follow. I answered all the patient's questions. To return to the wound healing center in 1 week or call sooner if the patient has any questions or concerns.
--- NOTE | 2024-07-22 09:13 | WC ---
PHOTO 07/21/24 RIGHT GREAT TOE
== END 2024-07-22 23:59 | disposition home or self-care (01) ==
LOC: WC 08:00
PROVIDERS: PCP Nurse Practitioner Family; Referring Provider Nurse Practitioner Family; Visit Provider Student in an Organized Health Care Education/Training Program
DX: E11.621 Type 2 diabetes mellitus with foot ulcer (principal); L97.512 Non-pressure chronic ulcer of other part of right foot with fat layer exposed; J44.9 Chronic obstructive pulmonary disease, unspecified; E11.42 Type 2 diabetes mellitus with diabetic polyneuropathy; E11.51 Type 2 diabetes mellitus with diabetic peripheral angiopathy without gangrene; I10 Essential (primary) hypertension; E78.5 Hyperlipidemia, unspecified; I25.10 Atherosclerotic heart disease of native coronary artery without angina pectoris; I25.2 Old myocardial infarction; Z79.82 Long term (current) use of aspirin; Z79.02 Long term (current) use of antithrombotics/antiplatelets; Z79.84 Long term (current) use of oral hypoglycemic drugs; Z79.899 Other long term (current) drug therapy; Z87.891 Personal history of nicotine dependence; Z86.73 Personal history of transient ischemic attack (TIA), and cerebral infarction without residual deficits
CPT/HCPCS: 11043; 11044; 99213; G0463

== ENCOUNTER → 2024-07-21 | Outpatient (CLI) | payer MEDICARE, SELFPAY ==
--- NOTE | 2024-07-21 09:48 | VDLE_ITS ---
Reason For Study Reason For Study: Pre-Op Testing RIGHT LEFT GSV Prox thigh- 0.41cm x 0.36cm GSV Prox thigh- 0.23cm x 0.25cm GSV Mid thigh- 0.31cm x 0.28cm GSV Mid thigh- 0.18cm x 0.20cm GSV Dist thigh- 0.31cm x 0.34cm GSV Dist thigh- 0.28cm x 0.25cm GSV KNEE- 0.29cm x 0.33cm GSV KNEE- 0.23cm x 0.22cm GSV Prox calf- 0.34cm x 0.38cm GSV Prox calf- 0.26cm x 0.28cm GSV Mid calf- 0.25cm x 0.26cm GSV Mid calf- 0.17cm x 0.17cm GSV Dist calf- 0.19cm x 0.22cm GSV Dist calf- 0.16cm x 0.15cm SSV Prox calf- 0.12cm x 0.15cm SSV Prox calf- 0.14cm x 0.16cm SSV Mid calf- 0.16cm x 0.19cm SSV Mid calf- 0.11cm x 0.13cm SSV Dist calf- 0.16cm x 0.18cm SSV Dist calf- 0.14cm x 0.13cm GSV and SSV appear patent and compressible. GSV and SSV appear patent and compressible. VL/Saphenous Vein Mapping, Bilat Interpretation Summary Right great saphenous vein patent with measurements above. Left great saphenous vein patent with measurements above. Right small saphenous vein patent with measurements above. Left small saphenous vein patent with measurements above. Ordering Physician: Desi Mcpherson Referring Physician: Valencia Mitchell Performed By: Beka Jeffrey, RVT
== END | disposition home or self-care (01) ==
LOC: CVS 09:46
PROVIDERS: PCP Nurse Practitioner Family; Referring Provider Physician Assistant; Visit Provider Physician Assistant
DX: Z01.818 Encounter for other preprocedural examination (principal); I70.261 Atherosclerosis of native arteries of extremities with gangrene, right leg
CPT/HCPCS: 93970

== ENCOUNTER → 2024-08-12 | Outpatient (CLI) | payer MEDICARE, SELFPAY ==
--- NOTE | 2024-08-12 07:46 | ECHOL_ITS ---
Reason For Study Reason For Study: DCMP Procedure This was a limited 2D transthoracic echocardiogram. Exam performed in department. Left Ventricle Normal LV size. Sigmoid septum. Left ventricular systolic function is normal. The left ventricular ejection fraction is 60 %. No regional wall motion abnormalities noted. Right Ventricle Normal RV size. Normal systolic function. Atria Normal left atrium. Normal right atrium. Mitral Valve There is mild to moderate mitral annular calcification. Bileaflet diffuse mitral valve thickening. Tricuspid Valve Normal tricuspid valve. Aortic Valve Trisinus/trileaflet aortic valve. Mild focal aortic valve calcification. Pulmonic Valve Normal pulmonic valve. Great Vessels Mildly calcified aortic root. The pulmonary artery is normal size. Normal inferior vena cava. Pericardium/Pleural No pericardial effusion. MMode/2D Measurements & Calculations LVIDd: 4.4 cm IVSd: 0.96 cm LAV(MOD- bp): 42.2 ml LVIDs: 3.0 cm LVPWd: 1.4 cm LAV(MOD- bp) Indexed: 24.9 ml/m2 FS: 31.5 % LAV(MOD- sp2): 46.3 ml LAV(MOD- sp4): 38.2 ml SV(MOD- sp4): 35.4 ml LVAd ap4: 23.2 cm2 LVAd ap2: 22.4 cm2 LVLd ap4: 7.5 cm LVLd ap2: 7.4 cm SI(MOD- sp4): 20.9 ml/m2 EDV(MOD-sp4): 63.5 ml EDV(MOD-sp2): 59.3 ml EDV(sp4-el): 60.9 ml EDV(sp2-el): 57.4 ml LVAs ap4: 14.1 cm2 LVAs ap2: 13.6 cm2 LVLs ap4: 6.5 cm LVLs ap2: 6.5 cm ESV(MOD-sp4): 28.1 ml ESV(MOD-sp2): 25.3 ml ESV(sp4-el): 25.8 ml ESV(sp2-el): 24.0 ml EF(MOD-sp4): 55.7 % EF(MOD-sp2): 57.3 % EF(sp4-el): 57.7 % SV(MOD-sp2): 34.0 ml SV(sp4-el): 35.1 ml LA A4 area: 14.7 cm2 SI(MOD-sp2): 20.1 ml/m2 LA dimension(2D): 3.9 cm RA A4 area: 14.6 cm2 ECHO/Echo, Limited Study Interpretation Summary Normal LV size. Left ventricular systolic function is normal. The left ventricular ejection fraction is 60 %. Sigmoid septum. Compared to previous study, the left ventricular systolic function has improved .. Ordering Physician: Melody John Referring Physician: Melody Jonh Performed By: Jenise Heard RCS
== END | disposition home or self-care (01) ==
PROVIDERS: PCP Family Medicine; Referring Provider Physician Assistant Medical; Visit Provider Physician Assistant Medical
DX: I51.9 Heart disease, unspecified (principal)
CPT/HCPCS: 93308

== ENCOUNTER 2024-08-16 08:45 | Outpatient (RCR) | payer MEDICARE, SELFPAY ==
[2024-07-23 00:18] VITALS: BP 145/48; PULSE 61; RESP 18; TEMP 35.8; BMI 24.1
[2024-07-26 10:34] VITALS: BP 157/47; PULSE 62; RESP 18; TEMP 35.9; BMI 24.1
--- NOTE | 2024-07-26 11:28 | PCM.WC.PN ---
History of Present Illness Date of Service: 07/26/24 Chief Complaint: Right hallux ulceration History of Wound: This is an 88-year-old female who presents to the wound care center for continued follow-up of a chronic right hallux ulceration. She underwent a debridement of the site to the level of bone removing portions of bone causing pressure for her neuropathic ulceration of the right hallux on 05/12/2024. She did undergo vascular procedure following this with Dr. Mccray. She is currently residing in [facility]. Family does inform me that facility has not been changing dressings as instructed. She continues ambulation in surgical shoe to the right foot. She did return to office on 06/15/24 and underwent local debridement and was placed on doxycycline 100 mg twice a day however family states that she does not believe she has been taking antibiotics as instructed. She was referred to the wound care center for continued care of her right hallux ulceration with planning for advanced wound care product placement. She denies constitutional symptoms. Denies further complaints. Progress of Wound: Patient presents follow-up right hallux ulceration. Patient this failed surgical debridement. Patient is awaiting vascular surgery evaluation for right femoropopliteal bypass. Patient denies constitutional symptoms today. Patient denies any rest pain but does note some burning pain into the hallux against alleviated with dependency. No other complaints. Objective Data Objective Data Vital Signs: Vital Signs Temp Pulse Resp BP 96.6 F L 62 18 157/47 H 07/26/24 10:34 07/26/24 10:34 07/26/24 10:34 07/26/24 10:34 Weight: 63.796 kg Body Mass Index (BMI) 24.1 Physical Exam Narrative Dorsalis pedis posterior tibial pulses nonpalpable right lower extremity. Delayed capillary fill time to toes 1 through 5 to right lower extremity. Neurologic: Light touch protective sensation absent to bilateral feet. Full-thickness wound noted to right hallux with exposed distal phalanx some necrosis to base and some mild granular tissue to the periwound area. Mild periwound erythema noted today. No other acute signs of infection. Musculoskeletal: No gross deformity contributing to wound formation. Debridement Note Debridement Note Post-Debridement Measurements and Additional Note: Post-Debridement Measurements/Treatment SOPHIA - Nurse 1 - General Ulcer Assessment Start: 07/26/24 10:34 Freq: Status: Active Protocol: WC.LOWEXT Activity Type Activity Date Activity User E-sign Co-sign Detail Recorded Client Recorded Date Recorded By Document 07/26/24 10:34 CARIE [id number] 07/26/24 10:37 RB 07/26/24 10:34 - Today's Visit Information Type of service Follow-up Visit (Physician/SURGEON'S ASSISTANT ) Arrival Mode Ambulatory Transfer Assistance None Patient Identification Verified (Name & Yes ) Patient Requires Transmission-Based No Precautions Height and Weight Body Mass Index (BMI) 24.1 BMI Classification Normal Vital Signs Temperature (97.8 F-99.1 F) 96.6 F L Temperature Source Temporal Pulse Rate (60-100) 62 Pulse Location Monitor Respiratory Rate (12-18) 18 Respiratory rate source Observation Blood Pressure (90/60-120/80) 157/47 H Blood Pressure Mean (mm Hg) 83 Source Monitor Position Semi-Fowlers Blood Pressure Location Left Arm History Since Last Visit- (Skip if this is Patient's initial visit) Have you changed medications since your No last visit? Any new allergies or adverse reactions No Had a fall/change in ADL's that may No increase risk of falls Signs or symptoms of abuse and/or No neglect since last visit Have you been in the hospital since your No last visit? Has dressing in place as prescribed Yes Has compression in place as prescribed N/A Has offloadiing in place as prescribed N/A Experienced any changes in pain level or No management Left Footwear Regular Shoe Right Footwear Surgical Shoe with pressure relief insole Pain Scale: 0-10 Numeric Is Patient Pain Free? Yes - Nurse 1 - General Ulcer Measurement Start: 07/26/24 10:34 Freq: Status: Active Protocol: Activity Type Activity Date Activity User E-sign Co-sign Detail Recorded Client Recorded Date Recorded By Document 07/26/24 10:34 CARIE [id number] 07/26/24 10:37 RB 07/26/24 10:34 Wound Center Nurse 1 #6 R Grt Toe -Combined with other wound No -Current Size (cm) - Length 2 -Current Size (cm) - Width 2 -Current Size (cm) - Depth 1.2 -Total Square Cm 4 -Photo Taken Yes -Tunneling No -Undermining/Tunneling No -Circular Undermining No -Exudate Amt Medium -Exudate Type Serosanguineous -Wound Margin Distinct, Outline Attached -Granulation Amt Medium (34-66%) -Granulation Quality [place] -Slough/Fibrin Yes -Necrosis Amt Medium (34-66%) -Necrotic Tissue Type Adherent Slough -Structure Exposed N/A -Texture (Dot-wound Skin Appearance) Assessed -Moisture (Dot-wound Skin Appearance) Assessed, Maceration -Color (Dot-wound Skin Appearance) Assessed -Temperature (Dot-wound Skin No Abnormality Appearance) (Pt Warm) -Tenderness on Palpation (Dot-wound No Skin Appearance) -Ulcer Cleansing Wound Cleanser -Foul Odor after Cleansing No -Anesthetic Used 5% Lidocaine Gel WC - Nurse 2 - General Ulcer CM Notes Start: 07/26/24 10:34 Freq: Status: Active Protocol: Activity Type Activity Date Activity User E-sign Co-sign Detail Recorded Client Recorded Date Recorded By Document 07/26/24 11:12 DS [id number] 07/26/24 11:21 DS 07/26/24 11:12 Wound Center Nurse 2 -Time 11:12 -Correct Patient Yes -Correct Side, Site, Position Yes -Correct Procedure Yes -Procedure Performed Yes -Type of Procedure Debridement -Clinical Debridement Bone -Tissue Removed Fascia -Post Debridement (cm) - Length 2.5 -Post Debridement (cm) - Width 2.5 -Post Debridement (cm) - Depth 0.7 -Total Square (Post) (cm) 6.25 -Area of Debridement (cm) - Length 2.5 -Area of Debridement (cm) - Width 2.5 -Total Square (Area) (cm) 6.25 -Tunneling No -Undermining/Tunneling No -Circular Undermining No -Wound/Ulcer Outcome Not Healed -Ulcer Cleansing Rinsed/ Irrigated with Saline -Foul Odor after Cleansing No -Bioengineered Tissue No -Bleeding Controlled with Pressure -Treatment Response Procedure Tolerated Well -Offloading Yes -Type of Offloading Surgical Shoe -Debridement - Bone, 1st 20sq cm Yes Pain Scale: 0-10 Numeric Is Patient Pain Free? 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 Reviewed previous radiographs, arterial studies, wound care notes, vascular surgery notes Discussed options with patient Reviewed best option is to proceed with right hallux amputation pending revascularization per vascular surgery. Right hallux wound was debrided excisionally down to including level of bone of all nonviable tissue using a 5 mm dermal curette. Patient tolerated procedure well. Topical anesthesia used. Hemostasis obtained with light compression. Pre and postoperative measurements document nursing notes. Continue daily Betadine dressings. Offload with surgical shoe on right. Follow-up weekly to ensure no acute life or limb threatening infection develops. (2) Type 2 diabetes mellitus with foot ulcer: CODE(S): E11.621 - Type 2 diabetes mellitus with foot ulcer; L97.509 - Non-pressure chronic ulcer of other part of unspecified foot with unspecified severity QUALIFIERS: Diabetes mellitus terminal block assembler insulin use: with terminal block assembler use Qualified Code(s): E11.621 - Type 2 diabetes mellitus with foot ulcer; L97.509 - Non-pressure chronic ulcer of other part of unspecified foot with unspecified severity; Z79.4 - correction (current) use of insulin (3) Non-pressure chronic ulcer of other part of right foot with necrosis of bone: CODE(S): L97.514 - Non-pressure chronic ulcer of other part of right foot with necrosis of bone (4) Other specified peripheral vascular diseases: CODE(S): I73.89 - Other specified peripheral vascular diseases
--- NOTE | 2024-07-27 14:07 | WC ---
PHOTO 07/26/24 RIGHT GREAT TOE
[2024-08-02 09:09] VITALS: BP 142/52; PULSE 70; RESP 18; TEMP 35.8; BMI 24.1
--- NOTE | 2024-08-02 09:30 | PN.PCM_ITS ---
History of Present Illness Date of Service: 08/02/24 Chief Complaint: Right hallux ulceration History of Wound: This is an 88-year-old female who presents to the wound care center for continued follow-up of a chronic right hallux ulceration. She underwent a debridement of the site to the level of bone removing portions of bone causing pressure for her neuropathic ulceration of the right hallux on 05/12/2024. She did undergo vascular procedure following this with Dr. Mccray. She is currently residing in [facility]. Family does inform me that facility has not been changing dressings as instructed. She continues ambulation in surgical shoe to the right foot. She did return to office on 06/15/24 and underwent local debridement and was placed on doxycycline 100 mg twice a day however family states that she does not believe she has been taking antibiotics as instructed. She was referred to the wound care center for continued care of her right hallux ulceration with planning for advanced wound care product placement. She denies constitutional symptoms. Denies further c omplaints. Progress of Wound: Patient presents follow-up right hallux ulceration. Patient this failed surgical debridement. Patient is awaiting vascular surgery evaluation for right femoropopliteal bypass. Patient denies constitutional symptoms today. Patient denies any rest pain but does note some burning pain into the hallux against alleviated with dependency. No other complaints. Objective Data Objective Data Vital Signs: Vital Signs Temp Pulse Resp BP 96.4 F L 70 18 142/52 H 08/02/24 09:09 08/02/24 09:09 08/02/24 09:09 08/02/24 09:09 Weight: 63.796 kg Body Mass Index (BMI) 24.1 Physical Exam Narrative Dorsalis pedis posterior tibial pulses nonpalpable right lower extremity. Delayed capillary fill time to toes 1 through 5 to right lower extremity. Neurologic: Light touch protective sensation absent to bilateral feet. Full-thickness wound noted to right hallux with exposed distal phalanx some necrosis to base and some mild granular tissue to the periwound area. Mild periwound erythema noted today. No other acute signs of infection. Musculoskeletal: No gross deformity contributing to wound formation. Debridement Note Debridement Note Post-Debridement Measurements and Additional Note: Post-Debridement Measurements/Treatment - Nurse 1 - General Ulcer Assessment Start: 07/26/24 10:34 Freq: Status: Active Protocol: SOPHIA.NORMA Activity Type Activity Date Activity User E-sign Co-sign Detail Recorded Client Recorded Date Recorded By Document 07/26/24 10:34 RB [id number] 07/26/24 10:37 RB Document 08/02/24 09:09 RB [id number] 08/02/24 09:12 RB 07/26/24 08/02/24 10:34 09:09 - Today's Visit Information Type of service Follow-up Visit Follow-up Visit (Physician/TELETYPE TELEGRAPHER (Physician/TELETYPE TELEGRAPHER ) ) Arrival Mode Ambulatory Ambulatory Transfer Assistance None None Patient Identification Verified (Name & Yes Yes ) Patient Requires Transmission-Based No No Precautions Height and Weight Body Mass Index (BMI) 24.1 24.1 BMI Classification Normal Normal Vital Signs Temperature (97.8 F-99.1 F) 96.6 F L 96.4 F L Temperature Source Temporal Temporal Pulse Rate (60-100) 62 70 Pulse Location Monitor Monitor Respiratory Rate (12-18) 18 18 Respiratory rate source Observation Observation Blood Pressure (90/60-120/80) 157/47 H 142/52 H Blood Pressure Mean (mm Hg) 83 82 Source Monitor Monitor Position Semi-Fowlers Semi-Fowlers Blood Pressure Location Left Arm Left Arm History Since Last Visit- (Skip if this is Patient's initial visit) Have you changed medications since your No No last visit? Any new allergies or adverse reactions No No Had a fall/change in ADL's that may No No increase risk of falls Signs or symptoms of abuse and/or No No neglect since last visit Have you been in the hospital since your No No last visit? Has dressing in place as prescribed Yes Yes Has compression in place as prescribed N/A N/A Has offloadiing in place as prescribed N/A N/A Experienced any changes in pain level or No No management Left Footwear Regular Shoe Right Footwear Surgical Shoe with pressure relief insole Pain Scale: 0-10 Numeric Is Patient Pain Free? Yes Yes - Nurse 1 - General Ulcer Measurement Start: 07/26/24 10:34 Freq: Status: Active Protocol: Activity Type Activity Date Activity User E-sign Co-sign Detail Recorded Client Recorded Date Recorded By Document 07/26/24 10:34 RB [id number] 07/26/24 10:37 RB Document 08/02/24 09:09 RB [id number] 08/02/24 09:12 RB 07/26/24 08/02/24 10:34 09:09 Wound Center Nurse 1 #6 R Grt Toe -Combined with other wound No No -Current Size (cm) - Length 2 1 -Current Size (cm) - Width 2 1.5 -Current Size (cm) - Depth 1.2 0.5 -Total Square Cm 4 1.5 -Photo Taken Yes Yes -Tunneling No No -Undermining/Tunneling No No -Circular Undermining No No -Exudate Amt Medium Medium -Exudate Type Serosanguineous Serosanguineous -Wound Margin Distinct, Thickened & Outline Rolled Under Attached -Granulation Amt Medium (34-66%) Medium (34-66%) -Granulation Quality [place] -Slough/Fibrin Yes Yes -Necrosis Amt Medium (34-66%) Medium (34-66%) -Necrotic Tissue Type Adherent Slough Adherent Slough -Structure Exposed N/A Bone -Texture (Dot-wound Skin Appearance) Assessed Assessed -Moisture (Dot-wound Skin Appearance) Assessed, Maceration Maceration -Color (Dot-wound Skin Appearance) Assessed Assessed -Temperature (Dot-wound Skin No Abnormality No Abnormality Appearance) (Pt Warm) (Pt Warm) -Tenderness on Palpation (Dot-wound No No Skin Appearance) -Ulcer Cleansing Wound Cleanser Wound Cleanser -Foul Odor after Cleansing No No -Anesthetic Used 5% Lidocaine 5% Lidocaine Gel Gel WC - Nurse 2 - General Ulcer CM Notes Start: 07/26/24 10:34 Freq: Status: Active Protocol: Activity Type Activity Date Activity User E-sign Co-sign Detail Recorded Client Recorded Date Recorded By Document 07/26/24 11:12 DS [id number] 07/26/24 11:21 DS Document 08/02/24 09:23 JF [id number] 08/02/24 09:25 JF 07/26/24 08/02/24 11:12 09:23 Wound Center Nurse 2 #6 R Grt Toe -Time 11:12 09:23 -Correct Patient Yes Yes -Correct Side, Site, Position Yes Yes -Correct Procedure Yes Yes -Procedure Performed Yes Yes -Type of Procedure Debridement Debridement -Clinical Debridement Bone Bone -Tissue Removed Fascia Non-viable tissue -Post Debridement (cm) - Length 2.5 2.4 -Post Debridement (cm) - Width 2.5 1.5 -Post Debridement (cm) - Depth 0.7 0.7 -Total Square (Post) (cm) 6.25 3.60 -Area of Debridement (cm) - Length 2.5 2.4 -Area of Debridement (cm) - Width 2.5 1.5 -Total Square (Area) (cm) 6.25 3.60 -Tunneling No No -Undermining/Tunneling No No -Circular Undermining No No -Wound/Ulcer Outcome Not Healed Not Healed -Ulcer Cleansing Rinsed/ Rinsed/ Irrigated with Irrigated with Saline Saline -Foul Odor after Cleansing No No -Bioengineered Tissue No No -Bleeding Controlled with Pressure Pressure -Treatment Response Procedure Procedure Tolerated Well Tolerated Well -Offloading Yes Yes -Type of Offloading Surgical Shoe Surgical Shoe -Debridement - Bone, 1st 20sq cm Yes Yes Pain Scale: 0-10 Numeric Is Patient Pain Free? Yes Yes - Nurse 3 - General Ulcer D/C NN Start: 07/26/24 10:34 Freq: Status: Active Protocol: Activity Type Activity Date Activity User E-sign Co-sign Detail Recorded Client Recorded Date Recorded By Document 07/26/24 11:30 ML [id number] 07/26/24 11:37 ML Document 08/02/24 09:26 [id number] 08/02/24 09:27 07/26/24 08/02/24 11:30 09:26 Wound Care Center Nurse 3 #6 R Grt Toe -Ulcer Cleansing Rinsed/ Rinsed/ Irrigated with Irrigated with Saline Saline -Foul Odor after Cleansing No -Other Dressing betadine wet to betadine dry -Primary Dressing Covered/Secured with Dry Gauze, Dry Gauze, Secured with Secured with Tape Tape Pain Scale: 0-10 Numeric Is Patient Pain Free? 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 Reviewed previous radiographs, arterial studies, wound care notes, vascular surgery notes Discussed options with patient Reviewed best option is to proceed with right hallux amputation pending revascu larization per vascular surgery. Right hallux wound was debrided excisionally down to including level of bone of all nonviable tissue using a 5 mm dermal curette. Patient tolerated procedure well. Topical anesthesia used. Hemostasis obtained with light compression. Pre and postoperative measurements document nursing notes. Continue daily Betadine dressings. Offload with surgical shoe on right. patient has follow up with Dr. mccray on 08/19/23 Follow-up weekly to ensure no acute life or limb threatening infection develops. (2) Type 2 diabetes mellitus with foot ulcer: CODE(S): E11.621 - Type 2 diabetes mellitus with foot ulcer; L97.509 - Non-pressure chronic ulcer of other part of unspecified foot with unspecified severity QUALIFIERS: Diabetes mellitus intermediate card tender insulin use: with intermediate card tender use Qualified Code(s): E11.621 - Type 2 diabetes mellitus with foot ulcer; L97.509 - Non-pressure chronic ulcer of other part of unspecified foot with unspecified severity; Z79.4 - ad terminal makeup operator (current) use of insulin (3) Non-pressure chronic ulcer of other part of right foot with necrosis of bone: CODE(S): L97.514 - Non-pressure chronic ulcer of other part of right foot with necrosis of bone (4) Other specified peripheral vascular diseases: CODE(S): I73.89 - Other specified peripheral vascular diseases
--- NOTE | 2024-08-04 10:08 | WC ---
PHOTO 08/02/24 RIGHT GREAT TOE
[2024-08-11 08:10] VITALS: BP 154/55; PULSE 87; RESP 18; TEMP 36.2; BMI 24.1
--- NOTE | 2024-08-11 09:24 | PN.PCM_ITS ---
History of Present Illness Date of Service: 08/11/24 Chief Complaint: Right hallux ulceration History of Wound: This is an 88-year-old female who presents to the wound care center for continued follow-up of a chronic right hallux ulceration. She underwent a debridement of the site to the level of bone removing portions of bone causing pressure for her neuropathic ulceration of the right hallux on 05/12/2024. She did undergo vascular procedure following this with Dr. Mccray. She is currently residing in [facility]. Family does inform me that facility has not been changing dressings as instructed. She continues ambulation in surgical shoe to the right foot. She did return to office on 06/15/24 and underwent local debridement and was placed on doxycycline 100 mg twice a day however family states that she does not believe she has been taking antibiotics as instructed. She was referred to the wound care center for continued care of her right hallux ulceration with planning for advanced wound care product placement. She denies constitutional symptoms. Denies further c omplaints. Progress of Wound: Patient presents follow-up right hallux ulceration. Patient this failed surgical debridement. Patient is awaiting vascular surgery evaluation for right femoropopliteal bypass. Patient denies constitutional symptoms today. Patient denies any rest pain but does note some burning pain into the hallux that is alleviated with dependency. No other complaints. Objective Data Objective Data Vital Signs: Vital Signs Temp Pulse Resp BP 97.2 F L 87 18 154/55 H 08/11/24 08:10 08/11/24 08:10 08/11/24 08:10 08/11/24 08:10 Weight: 63.796 kg Body Mass Index (BMI) 24.1 Physical Exam Narrative Dorsalis pedis posterior tibial pulses nonpalpable right lower extremity. Delayed capillary fill time to toes 1 through 5 to right lower extremity. Neurologic: Light touch protective sensation absent to bilateral feet. Full-thickness wound noted to right hallux with exposed distal phalanx some necrosis to base and some mild granular tissue to the periwound area. Mild periwound erythema noted today. No other acute signs of infection. Musculoskeletal: No gross deformity contributing to wound formation. Debridement Note Debridement Note No debridement was completed: No debridement was completed today Post-Debridement Measurements and Additional Note: Post-Debridement Measurements/Treatment WC - Nurse 1 - General Ulcer Assessment Start: 07/26/24 10:34 Freq: Status: Active Protocol: WC.LOWEXT Activity Type Activity Date Activity User E-sign Co-sign Detail Recorded Client Recorded Date Recorded By Document 07/26/24 10:34 RB [id number] 07/26/24 10:37 RB Document 08/02/24 09:09 RB [id number] 08/02/24 09:12 RB Document 08/11/24 08:10 DL [id number] 08/11/24 08:15 DL 07/26/24 08/02/24 08/11/24 10:34 09:09 08:10 WC - Today's Visit Information Type of service Follow-up Visit Follow-up Visit Follow-up Visit (Physician/[facility] (Physician/[facility] (Physician/[facility] ) ) ) Arrival Mode Ambulatory Ambulatory Ambulatory Transfer Assistance None None None Patient Identification Verified (Name & Yes Yes Yes ) Patient Requires Transmission-Based No No No Precautions Height and Weight Body Mass Index (BMI) 24.1 24.1 24.1 BMI Classification Normal Normal Normal Vital Signs Temperature (97.8 F-99.1 F) 96.6 F L 96.4 F L 97.2 F L Temperature Source Temporal Temporal Temporal Pulse Rate (60-100) 62 70 87 Pulse Location Monitor Monitor Monitor Respiratory Rate (12-18) 18 18 18 Respiratory rate source Observation Observation Observation Blood Pressure (90/60-120/80) 157/47 H 142/52 H 154/55 H Blood Pressure Mean (mm Hg) 83 82 88 Source Monitor Monitor Monitor Position Semi-Fowlers Semi-Fowlers Blood Pressure Location Left Arm Left Arm History Since Last Visit- (Skip if this is Patient's initial visit) Have you changed medications since your No No No last visit? Any new allergies or adverse reactions No No No Had a fall/change in ADL's that may No No No increase risk of falls Signs or symptoms of abuse and/or No No No neglect since last visit Have you been in the hospital since your No No No last visit? Has dressing in place as prescribed Yes Yes Yes Has compression in place as prescribed N/A N/A Yes Has offloadiing in place as prescribed N/A N/A Yes Experienced any changes in pain level or No No No management Left Footwear Regular Shoe Right Footwear Surgical Shoe Surgical Shoe with pressure with pressure relief insole relief insole Pain Scale: 0-10 Numeric Is Patient Pain Free? Yes Yes Yes WC - Nurse 1 - General Ulcer Measurement Start: 07/26/24 10:34 Freq: Status: Active Protocol: Activity Type Activity Date Activity User E-sign Co-sign Detail Recorded Client Recorded Date Recorded By Document 07/26/24 10:34 RB [id number] 07/26/24 10:37 RB Document 08/02/24 09:09 RB [id number] 08/02/24 09:12 RB Document 08/11/24 08:10 DL [id number] 08/11/24 08:15 DL 07/26/24 08/02/24 08/11/24 10:34 09:09 08:10 Wound Center Nurse 1 #6 R Grt Toe -Combined with other wound No No -Current Size (cm) - Length 2 1 2 -Current Size (cm) - Width 2 1.5 2 -Current Size (cm) - Depth 1.2 0.5 0.9 -Total Square Cm 4 1.5 4 -Photo Taken Yes Yes Yes -Tunneling No No -Undermining/Tunneling No No -Circular Undermining No No -Classification - Thickness Full Thickness without Exposed Support Structure -Exudate Amt Medium Medium Medium -Exudate Type Serosanguineous Serosanguineous Serosanguineous -Wound Margin Distinct, Thickened & Thickened Outline Rolled Under Attached -Granulation Amt Medium (34-66%) Medium (34-66%) None Present (0 %) -Granulation Quality [place] Cow[place] -Slough/Fibrin Yes Yes -Necrosis Amt Medium (34-66%) Medium (34-66%) Large (67-100%) -Necrotic Tissue Type Adherent Slough Adherent Slough Adherent Slough -Structure Exposed N/A Bone N/A -Texture (Dot-wound Skin Appearance) Assessed Assessed Localized Edema ,Scarring -Moisture (Dot-wound Skin Appearance) Assessed, Maceration Maceration Maceration -Color (Dot-wound Skin Appearance) Assessed Assessed No Abnormality -Temperature (Dot-wound Skin No Abnormality No Abnormality No Abnormality Appearance) (Pt Warm) (Pt Warm) (Pt Warm) -Tenderness on Palpation (Dot-wound No No No Skin Appearance) -Ulcer Cleansing Wound Cleanser Wound Cleanser Soap and Water -Foul Odor after Cleansing No No No -Anesthetic Used 5% Lidocaine 5% Lidocaine 5% Lidocaine Gel Gel Gel WC - Nurse 2 - General Ulcer CM Notes Start: 07/26/24 10:34 Freq: Status: Active Protocol: Activity Type Activity Date Activity User E-sign Co-sign Detail Recorded Client Recorded Date Recorded By Document 07/26/24 11:12 DS [id number] 07/26/24 11:21 DS Document 08/02/24 09:23 JF [id number] 08/02/24 09:25 JF Document 08/11/24 08:37 BM [id number] 08/11/24 08:41 BMF 07/26/24 08/02/24 08/11/24 11:12 09:23 08:37 Wound Center Nurse 2 #6 R Grt Toe -Time 11:12 09:23 08:38 -Correct Patient Yes Yes -Correct Side, Site, Position Yes Yes -Correct Procedure Yes Yes -Procedure Performed Yes Yes No -Type of Procedure Debridement Debridement -Clinical Debridement Bone Bone -Tissue Removed Fascia Non-viable tissue -Post Debridement (cm) - Length 2.5 2.4 2 -Post Debridement (cm) - Width 2.5 1.5 2 -Post Debridement (cm) - Depth 0.7 0.7 0.9 -Total Square (Post) (cm) 6.25 3.60 4 -Area of Debridement (cm) - Length 2.5 2.4 2 -Area of Debridement (cm) - Width 2.5 1.5 2 -Total Square (Area) (cm) 6.25 3.60 4 -Tunneling No No No -Undermining/Tunneling No No No -Circular Undermining No No No -Wound/Ulcer Outcome Not Healed Not Healed Not Healed -Ulcer Cleansing Rinsed/ Rinsed/ Irrigated with Irrigated with Saline Saline -Foul Odor after Cleansing No No -Bioengineered Tissue No No -Bleeding Controlled with Pressure Pressure NA -Treatment Response Procedure Procedure Tolerated Well Tolerated Well -Offloading Yes Yes -Type of Offloading Surgical Shoe Surgical Shoe -Debridement - Bone, 1st 20sq cm Yes Yes Pain Scale: 0-10 Numeric Is Patient Pain Free? Yes Yes Yes WC - Nurse 3 - General Ulcer D/C NN Start: 07/26/24 10:34 Freq: Status: Active Protocol: Activity Type Activity Date Activity User E-sign Co-sign Detail Recorded Client Recorded Date Recorded By Document 07/26/24 11:30 ML [id number] 07/26/24 11:37 ML Document 08/02/24 09:26 JF [id number] 08/02/24 09:27 JF Document 08/11/24 08:49 KW [id number] 08/11/24 08:49 KW 07/26/24 08/02/24 08/11/24 11:30 09:26 08:49 Wound Care Center Nurse 3 #6 R Grt Toe -Ulcer Cleansing Rinsed/ Rinsed/ Irrigated with Irrigated with Saline Saline -Foul Odor after Cleansing No -Other Dressing betadine wet to betadine paint with dry gauze -Primary Dressing Covered/Secured with Dry Gauze, Dry Gauze, Dry Gauze,Dry Secured with Secured with Gauze & Roll Tape Tape Gauze,Secured with Tape Pain Scale: 0-10 Numeric Is Patient Pain Free? 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 Tiwari and myself. Reviewed best option is to proceed with right hallux amputation pending revascularization per vascular surgery. She is willing to proceed forward with Amputation of her Right Hallux following femoropopliteal bypass. Right hallux wound was not debrided today. Ulceration measures 2.0 cm x 2.0 cm x 0.9 cm with exposure/necrosis of the distal phalanx dorsally. Continue daily Betadine dressings. Continue to Offload with surgical shoe on right. Patient has follow up with Dr. Mccray on 08/18/24 Follow-up weekly to ensure no acute life or limb threatening infection develops. Will follow next 08/16/[address] Tiwari in the wound care center. (2) Type 2 diabetes mellitus with foot ulcer: CODE(S): E11.621 - Type 2 diabetes mellitus with foot ulcer; L97.509 - Non-pressure chronic ulcer of other part of unspecified foot with unspecified s everity QUALIFIERS: Diabetes mellitus bed bug exterminator insulin use: with bed bug exterminator use Qualified Code(s): E11.621 - Type 2 diabetes mellitus with foot ulcer; L97.509 - Non-pressure chronic ulcer of other part of unspecified foot with unspecified severity; Z79.4 - [facility] (current) use of insulin (3) Non-pressure chronic ulcer of other part of right foot with necrosis of bone: CODE(S): L97.514 - Non-pressure chronic ulcer of other part of right foot with necrosis of bone (4) Other specified peripheral vascular diseases: CODE(S): I73.89 - Other specified peripheral vascular diseases
--- NOTE | 2024-08-12 08:25 | WC ---
PHOTO 08/11/24 RIGHT GREAT TOE
[2024-08-16 08:49] VITALS: BP 161/43; PULSE 61; RESP 18; TEMP 36; BMI 24.1
--- NOTE | 2024-08-16 09:46 | PCM.WC.PN ---
History of Present Illness Date of Service: 08/11/24 Chief Complaint: Right hallux ulceration History of Wound: This is an 88-year-old female who presents to the wound care center for continued follow-up of a chronic right hallux ulceration. She underwent a debridement of the site to the level of bone removing portions of bone causing pressure for her neuropathic ulceration of the right hallux on 05/12/2024. She did undergo vascular procedure following this with Dr. Mccray. She is currently residing in [facility]. Family does inform me that facility has not been changing dressings as instructed. She continues ambulation in surgical shoe to the right foot. She did return to office on 06/15/24 and underwent local debridement and was placed on doxycycline 100 mg twice a day however family states that she does not believe she has been taking antibiotics as instructed. She was referred to the wound care center for continued care of her right hallux ulceration with planning for advanced wound care product placement. She denies constitutional symptoms. Denies further complaints. Progress of Wound: Patient presents follow-up right hallux ulceration. Patient this failed surgical debridement. Patient is awaiting vascular surgery evaluation for right femoropopliteal bypass. Patient denies constitutional symptoms today. Patient denies any rest pain but does note some burning pain into the hallux that is alleviated with dependency. No other complaints. Objective Data Objective Data Vital Signs: Vital Signs Temp Pulse Resp BP O2 Del Method 96.8 F L 61 18 161/43 H Room Air 08/16/24 08:49 08/16/24 08:49 08/16/24 08:49 08/16/24 08:49 08/16/24 08:49 Oxygen Delivery Method Room Air Weight: 63.796 kg Body Mass Index (BMI) 24.1 Physical Exam Narrative Dorsalis pedis posterior tibial pulses nonpalpable right lower extremity. Delayed capillary fill time to toes 1 through 5 to right lower extremity. Neurologic: Light touch protective sensation absent to bilateral feet. Full-thickness wound noted to right hallux with exposed distal phalanx some necrosis to base and some mild granular tissue to the periwound area. Mild periwound erythema noted today. No other acute signs of infection. Musculoskeletal: No gross deformity contributing to wound formation. Debridement Note Debridement Note No debridement was completed: No debridement was completed today Post-Debridement Measurements and Additional Note: Post-Debridement Measurements/Treatment WC - Nurse 1 - General Ulcer Assessment Start: 07/26/24 10:34 Freq: Status: Active Protocol: ESVIN Activity Type Activity Date Activity User E-sign Co-sign Detail Recorded Client Recorded Date Recorded By Document 07/26/24 10:34 RB [id number] 07/26/24 10:37 RB Document 08/02/24 09:09 RB [id number] 08/02/24 09:12 RB Document 08/11/24 08:10 DL [id number] 08/11/24 08:15 DL Document 08/16/24 08:49 DS [id number] 08/16/24 08:54 DS 07/26/24 08/02/24 08/11/24 10:34 09:09 08:10 WC - Today's Visit Information Type of service Follow-up Visit Follow-up Visit Follow-up Visit (Physician/TEA AND SPICE SUPERVISOR (Physician/TEA AND SPICE SUPERVISOR (Physician/TEA AND SPICE SUPERVISOR ) ) ) Arrival Mode Ambulatory Ambulatory Ambulatory Transfer Assistance None None None Patient Identification Verified (Name & Yes Yes Yes ) Patient Requires Transmission-Based No No No Precautions Safety Precautions Height and Weight Body Mass Index (BMI) 24.1 24.1 24.1 BMI Classification Normal Normal Normal Vital Signs Temperature (97.8 F-99.1 F) 96.6 F L 96.4 F L 97.2 F L Temperature Source Temporal Temporal Temporal Pulse Rate (60-100) 62 70 87 Pulse Location Monitor Monitor Monitor Respiratory Rate (12-18) 18 18 18 Respiratory rate source Observation Observation Observation Oxygen Delivery Method Blood Pressure (90/60-120/80) 157/47 H 142/52 H 154/55 H Blood Pressure Mean (mm Hg) 83 82 88 Source Monitor Monitor Monitor Position Semi-Fowlers Semi-Fowlers Blood Pressure Location Left Arm Left Arm History Since Last Visit- (Skip if this is Patient's initial visit) Have you changed medications since your No No No last visit? Any new allergies or adverse reactions No No No Had a fall/change in ADL's that may No No No increase risk of falls Signs or symptoms of abuse and/or No No No neglect since last visit Have you been in the hospital since your No No No last visit? Has dressing in place as prescribed Yes Yes Yes Has compression in place as prescribed N/A N/A Yes Has offloadiing in place as prescribed N/A N/A Yes Experienced any changes in pain level or No No No management Left Footwear Regular Shoe Right Footwear Surgical Shoe Surgical Shoe with pressure with pressure relief insole relief insole Pain Scale: 0-10 Numeric Is Patient Pain Free? Yes Yes Yes 08/16/24 08:49 WC - Today's Visit Information Type of service Follow-up Visit (Physician/TEA AND SPICE SUPERVISOR ) Arrival Mode Ambulatory,Cane Transfer Assistance Patient Identification Verified (Name & ) Patient Requires Transmission-Based No Precautions Safety Precautions Fall Prevention Height and Weight Body Mass Index (BMI) 24.1 BMI Classification Normal Vital Signs Temperature (97.8 F-99.1 F) 96.8 F L Temperature Source Temporal Pulse Rate (60-100) 61 Pulse Location Monitor Respiratory Rate (12-18) 18 Respiratory rate source Observation Oxygen Delivery Method Room Air Blood Pressure (90/60-120/80) 161/43 H Blood Pressure Mean (mm Hg) 82 Source Monitor Position Sitting Blood Pressure Location Left Arm History Since Last Visit- (Skip if this is Patient's initial visit) Have you changed medications since your No last visit? Any new allergies or adverse reactions No Had a fall/change in ADL's that may No increase risk of falls Signs or symptoms of abuse and/or No neglect since last visit Have you been in the hospital since your No last visit? Has dressing in place as prescribed Yes Has compression in place as prescribed N/A Has offloadiing in place as prescribed Yes Experienced any changes in pain level or No management Left Footwear Regular Shoe Right Footwear Surgical Shoe with pressure relief insole Pain Scale: 0-10 Numeric Is Patient Pain Free? Yes - Nurse 1 - General Ulcer Measurement Start: 07/26/24 10:34 Freq: Status: Active Protocol: Activity Type Activity Date Activity User E-sign Co-sign Detail Recorded Client Recorded Date Recorded By Document 07/26/24 10:34 RB [id number] 07/26/24 10:37 RB Document 08/02/24 09:09 RB [id number] 08/02/24 09:12 RB Document 08/11/24 08:10 DL [id number] 08/11/24 08:15 DL Document 08/16/24 08:54 DS [id number] 08/16/24 09:02 DS 07/26/24 08/02/24 08/11/24 10:34 09:09 08:10 Wound Center Nurse 1 #6 R Grt Toe -Combined with other wound No No -Current Size (cm) - Length 2 1 2 -Current Size (cm) - Width 2 1.5 2 -Current Size (cm) - Depth 1.2 0.5 0.9 -Total Square Cm 4 1.5 4 -Photo Taken Yes Yes Yes -Tunneling No No -Undermining/Tunneling No No -Circular Undermining No No -Classification - Thickness Full Thickness without Exposed Support Structure -Exudate Amt Medium Medium Medium -Exudate Type Serosanguineous Serosanguineous Serosanguineous -Wound Margin Distinct, Thickened & Thickened Outline Rolled Under Attached -Granulation Amt Medium (34-66%) Medium (34-66%) None Present (0 %) -Granulation Quality [place] -Slough/Fibrin Yes Yes -Necrosis Amt Medium (34-66%) Medium (34-66%) Large (67-100%) -Necrotic Tissue Type Adherent Slough Adherent Slough Adherent Slough -Structure Exposed N/A Bone N/A -Texture (Dot-wound Skin Appearance) Assessed Assessed Localized Edema ,Scarring -Moisture (Dot-wound Skin Appearance) Assessed, Maceration Maceration Maceration -Color (Dot-wound Skin Appearance) Assessed Assessed No Abnormality -Temperature (Dot-wound Skin No Abnormality No Abnormality No Abnormality Appearance) (Pt Warm) (Pt Warm) (Pt Warm) -Tenderness on Palpation (Dot-wound No No No Skin Appearance) -Ulcer Cleansing Wound Cleanser Wound Cleanser Soap and Water -Foul Odor after Cleansing No No No -Anesthetic Used 5% Lidocaine 5% Lidocaine 5% Lidocaine Gel Gel Gel Right Calf (cm) Right Ankle (cm) 08/16/24 08:54 Wound Center Nurse 1 #6 R Grt Toe -Combined with other wound No -Current Size (cm) - Length 2.3 -Current Size (cm) - Width 2.0 -Current Size (cm) - Depth 0.3 -Total Square Cm 4.60 -Photo Taken No -Tunneling No -Undermining/Tunneling No -Circular Undermining No -Classification - Thickness -Exudate Amt -Exudate Type -Wound Margin Distinct, Outline Attached -Granulation Amt -Granulation Quality -Slough/Fibrin -Necrosis Amt Large (67-100%) -Necrotic Tissue Type Adherent Slough -Structure Exposed -Texture (Dot-wound Skin Appearance) Assessed -Moisture (Dot-wound Skin Appearance) Assessed, Maceration -Color (Dot-wound Skin Appearance) Assessed -Temperature (Dot-wound Skin No Abnormality Appearance) (Pt Warm) -Tenderness on Palpation (Dot-wound Yes Skin Appearance) -Ulcer Cleansing Soap and Water -Foul Odor after Cleansing No -Anesthetic Used 5% Lidocaine Gel Right Calf (cm) 34 Right Ankle (cm) 21.6 WC - Nurse 2 - General Ulcer CM Notes Start: 07/26/24 10:34 Freq: Status: Active Protocol: Activity Type Activity Date Activity User E-sign Co-sign Detail Recorded Client Recorded Date Recorded By Document 07/26/24 11:12 DS [id number] 07/26/24 11:21 DS Document 08/02/24 09:23 JF [id number] 08/02/24 09:25 JF Document 08/11/24 08:37 [facility] [id number] 08/11/24 08:41 [facility] Document 08/16/24 09:31 [id number] 08/16/24 09:43 07/26/24 08/02/24 08/11/24 11:12 09:23 08:37 Wound Center Nurse 2 #6 R Grt Toe -Time 11:12 09:23 08:38 -Correct Patient Yes Yes -Correct Side, Site, Position Yes Yes -Correct Procedure Yes Yes -Procedure Performed Yes Yes No -Type of Procedure Debridement Debridement -Clinical Debridement Bone Bone -Tissue Removed Fascia Non-viable tissue -Post Debridement (cm) - Length 2.5 2.4 2 -Post Debridement (cm) - Width 2.5 1.5 2 -Post Debridement (cm) - Depth 0.7 0.7 0.9 -Total Square (Post) (cm) 6.25 3.60 4 -Area of Debridement (cm) - Length 2.5 2.4 2 -Area of Debridement (cm) - Width 2.5 1.5 2 -Total Square (Area) (cm) 6.25 3.60 4 -Tunneling No No No -Undermining/Tunneling No No No -Circular Undermining No No No -Wound/Ulcer Outcome Not Healed Not Healed Not Healed -Ulcer Cleansing Rinsed/ Rinsed/ Irrigated with Irrigated with Saline Saline -Foul Odor after Cleansing No No -Bioengineered Tissue No No -Bleeding Controlled with Pressure Pressure NA -Treatment Response Procedure Procedure Tolerated Well Tolerated Well -Offloading Yes Yes -Type of Offloading Surgical Shoe Surgical Shoe -Debridement - Bone, 1st 20sq cm Yes Yes Pain Scale: 0-10 Numeric Is Patient Pain Free? Yes Yes Yes 08/16/24 09:31 Wound Center Nurse 2 #6 R Grt Toe -Time 09:31 -Correct Patient Yes -Correct Side, Site, Position Yes -Correct Procedure Yes -Procedure Performed Yes -Type of Procedure Debridement -Clinical Debridement Bone -Tissue Removed Non-viable tissue -Post Debridement (cm) - Length 2.0 -Post Debridement (cm) - Width 2.0 -Post Debridement (cm) - Depth 1.5 -Total Square (Post) (cm) 4.00 -Area of Debridement (cm) - Length 2.0 -Area of Debridement (cm) - Width 2.0 -Total Square (Area) (cm) 4.00 -Tunneling No -Undermining/Tunneling No -Circular Undermining No -Wound/Ulcer Outcome Not Healed -Ulcer Cleansing Rinsed/ Irrigated with Saline -Foul Odor after Cleansing No -Bioengineered Tissue No -Bleeding Controlled with Pressure -Treatment Response Procedure Tolerated Well -Offloading Yes -Type of Offloading Surgical Shoe -Debridement - Bone, 1st 20sq cm Yes Pain Scale: 0-10 Numeric Is Patient Pain Free? Yes - Nurse 3 - General Ulcer D/C NN Start: 07/26/24 10:34 Freq: Status: Active Protocol: Activity Type Activity Date Activity User E-sign Co-sign Detail Recorded Client Recorded Date Recorded By Document 07/26/24 11:30 ML [id number] 07/26/24 11:37 ML Document 08/02/24 09:26 JF [id number] 08/02/24 09:27 JF Document 08/11/24 08:49 KW [id number] 08/11/24 08:49 KW 07/26/24 08/02/24 08/11/24 11:30 09:26 08:49 Wound Care Center Nurse 3 #6 R Grt Toe -Ulcer Cleansing Rinsed/ Rinsed/ Irrigated with Irrigated with Saline Saline -Foul Odor after Cleansing No -Other Dressing betadine wet to betadine paint with dry gauze -Primary Dressing Covered/Secured with Dry Gauze, Dry Gauze, Dry Gauze,Dry Secured with Secured with Gauze & Roll Tape Tape Gauze,Secured with Tape Pain Scale: 0-10 Numeric Is Patient Pain Free? 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 Topical anesthesia used. All nonviable tissue was removed. Pre and postdebridement measurements document nursing notes. Hemostasis obtained with light compression. Patient tolerated procedure well. Patient requires right hallux amputation and this is pending vascular evaluation for femoropopliteal bypass. Patient follows up with vascular surgery on 08/18/2024. Reviewed best option is to proceed with right hallux amputation pending revascularization per vascular surgery. She is willing to proceed forward with Amputation of her Right Hallux following femoropopliteal bypass. Continue current dressings. Continue current offloading. Follow-up weekly to ensure no acute life or limb threatening infection develops. Will follow next 08/16/[address] Tiwari in the wound care center. (2) Type 2 diabetes mellitus with foot ulcer: CODE(S): E11.621 - Type 2 diabetes mellitus with foot ulcer; L97.509 - Non-pressure chronic ulcer of other part of unspecified foot with unspecified severity QUALIFIERS: Diabetes mellitus mcc insulin use: with press tender long goods use Qualified Code(s): E11.621 - Type 2 diabetes mellitus with foot ulcer; L97.509 - Non-pressure chronic ulcer of other part of unspecified foot with unspecified severity; Z79.4 - terminal press operator (current) use of insulin (3) Non-pressure chronic ulcer of other part of right foot with necrosis of bone: CODE(S): L97.514 - Non-pressure chronic ulcer of other part of right foot with necrosis of bone (4) Other specified peripheral vascular diseases: CODE(S): I73.89 - Other specified peripheral vascular diseases
== END 2024-08-22 23:59 | disposition home or self-care (01) ==
LOC: WC 08:45
PROVIDERS: PCP Nurse Practitioner Family; Referring Provider Nurse Practitioner Family; Visit Provider Podiatrist
DX: E11.621 Type 2 diabetes mellitus with foot ulcer (principal); L97.514 Non-pressure chronic ulcer of other part of right foot with necrosis of bone; E11.51 Type 2 diabetes mellitus with diabetic peripheral angiopathy without gangrene; E11.40 Type 2 diabetes mellitus with diabetic neuropathy, unspecified; Z79.82 Long term (current) use of aspirin; Z79.02 Long term (current) use of antithrombotics/antiplatelets; Z79.84 Long term (current) use of oral hypoglycemic drugs; Z79.899 Other long term (current) drug therapy
CPT/HCPCS: 11044; 87070; 87075; 87205; 99213; G0463

== ENCOUNTER 2024-08-23 08:44 | Outpatient (RCR) | payer MEDICARE, SELFPAY ==
[2024-08-23 00:11] VITALS: BP 161/43; PULSE 61; RESP 18; TEMP 36; BMI 24.1
[2024-08-23 08:59] VITALS: BP 156/41; PULSE 58; RESP 18; TEMP 35.8; BMI 24.1
--- NOTE | 2024-08-23 10:11 | PCM.WC.PN ---
History of Present Illness Date of Service: 08/23/24 Chief Complaint: Right hallux ulceration History of Wound: This is an 88-year-old female who presents to the wound care center for continued follow-up of a chronic right hallux ulceration. She underwent a debridement of the site to the level of bone removing portions of bone causing pressure for her neuropathic ulceration of the right hallux on 05/12/2024. She did undergo vascular procedure following this with Dr. Mccray. She is currently residing in [facility]. Family does inform me that facility has not been changing dressings as instructed. She continues ambulation in surgical shoe to the right foot. She did return to office on 06/15/24 and underwent local debridement and was placed on doxycycline 100 mg twice a day however family states that she does not believe she has been taking antibiotics as instructed. She was referred to the wound care center for continued care of her right hallux ulceration with planning for advanced wound care product placement. She denies constitutional symptoms. Denies further complaints. Objective Data Objective Data Vital Signs: Vital Signs Temp Pulse Resp BP 96.4 F L 58 L 18 156/41 H 08/23/24 08:59 08/23/24 08:59 08/23/24 08:59 08/23/24 08:59 Weight: 63.796 kg Body Mass Index (BMI) 24.1 Physical Exam Narrative Dorsalis pedis posterior tibial pulses nonpalpable right lower extremity. Delayed capillary fill time to toes 1 through 5 to right lower extremity. Neurologic: Light touch protective sensation absent to bilateral feet. Full-thickness wound noted to right hallux with exposed distal phalanx some necrosis to base and some mild granular tissue to the periwound area. Mild periwound erythema noted today. No other acute signs of infection. Musculoskeletal: No gross deformity contributing to wound formation. Debridement Note Debridement Note Post-Debridement Measurements and Additional Note: Post-Debridement Measurements/Treatment SOPHIA - Nurse 1 - General Ulcer Assessment Start: 08/23/24 08:59 Freq: Status: Active Protocol: RACHELEXParker Activity Type Activity Date Activity User E-sign Co-sign Detail Recorded Client Recorded Date Recorded By Document 08/23/24 08:59 RB [id number] 08/23/24 09:00 RB 08/23/24 08:59 - Today's Visit Information Type of service Follow-up Visit (Physician/SAP SENIOR DEVELOPER ) Arrival Mode Ambulatory,Cane Transfer Assistance Manual Patient Identification Verified (Name & Yes ) Safety Precautions NA Blood Sugar Stated by Patient Height and Weight Body Mass Index (BMI) 24.1 BMI Classification Normal Vital Signs Temperature (97.8 F-99.1 F) 96.4 F L Temperature Source Temporal Pulse Rate (60-100) 58 L Pulse Location Monitor Respiratory Rate (12-18) 18 Respiratory rate source Observation Blood Pressure (90/60-120/80) 156/41 H Blood Pressure Mean (mm Hg) 79 Source Monitor Position Semi-Fowlers Blood Pressure Location Left Arm History Since Last Visit- (Skip if this is Patient's initial visit) Have you changed medications since your No last visit? Any new allergies or adverse reactions No Had a fall/change in ADL's that may No increase risk of falls Signs or symptoms of abuse and/or No neglect since last visit Have you been in the hospital since your No last visit? Has dressing in place as prescribed Yes Has compression in place as prescribed N/A Has offloadiing in place as prescribed Yes Experienced any changes in pain level or No management Left Footwear Regular Shoe Right Footwear Surgical Shoe with pressure relief insole Pain Scale: 0-10 Numeric Is Patient Pain Free? Yes WC - Nurse 1 - General Ulcer Measurement Start: 08/23/24 08:59 Freq: Status: Active Protocol: Activity Type Activity Date Activity User E-sign Co-sign Detail Recorded Client Recorded Date Recorded By Document 08/23/24 08:59 RB [id number] 08/23/24 09:00 RB 08/23/24 08:59 Wound Center Nurse 1 #6 R Grt Toe -Combined with other wound No -Current Size (cm) - Length 1.5 -Current Size (cm) - Width 1.6 -Current Size (cm) - Depth 0.4 -Total Square Cm 2.40 -Photo Taken Yes -Tunneling No -Undermining/Tunneling No -Circular Undermining No -Exudate Amt Medium -Exudate Type Serosanguineous -Wound Margin Thickened & Rolled Under -Granulation Amt Medium (34-66%) -Granulation Quality [place] -Slough/Fibrin Yes -Necrosis Amt Medium (34-66%) -Necrotic Tissue Type Adherent Slough -Structure Exposed N/A -Texture (Dot-wound Skin Appearance) Scarring -Moisture (Dot-wound Skin Appearance) Assessed -Color (Dot-wound Skin Appearance) Assessed -Temperature (Dot-wound Skin No Abnormality Appearance) (Pt Warm) -Tenderness on Palpation (Dot-wound No Skin Appearance) -Ulcer Cleansing Wound Cleanser -Foul Odor after Cleansing No -Anesthetic Used 5% Lidocaine Gel WC - Nurse 2 - General Ulcer CM Notes Start: 08/23/24 08:59 Freq: Status: Active Protocol: Activity Type Activity Date Activity User E-sign Co-sign Detail Recorded Client Recorded Date Recorded By Document 08/23/24 09:53 DS [id number] 08/23/24 09:53 DS 08/23/24 09:53 Wound Center Nurse 2 -Time 09:53 -Correct Patient Yes -Procedure Performed No -Wound/Ulcer Outcome Not Healed Pain Scale: 0-10 Numeric Is Patient Pain Free? Yes WC - Nurse 3 - General Ulcer D/C NN Start: 08/23/24 08:59 Freq: Status: Active Protocol: Activity Type Activity Date Activity User E-sign Co-sign Detail Recorded Client Recorded Date Recorded By Document 08/23/24 10:10 ML [id number] 08/23/24 10:11 ML 08/23/24 10:10 Wound Care Center Nurse 3 #6 R Grt Toe -Ulcer Cleansing Rinsed/ Irrigated with Saline -Other Dressing betadine wash -Primary Dressing Covered/Secured with Dry Gauze & Roll Gauze, Secured with Tape Pain Scale: 0-10 Numeric Is Patient Pain Free? 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 Patient follows up with vascular surgery on 08/18/2024. Reviewed best option is to proceed with right hallux amputation pending revascularization per vascular surgery. She is willing to proceed forward with Amputation of her Right Hallux following femoropopliteal bypass. Continue current dressings. Continue current offloading. Follow-up weekly to ensure no acute life or limb threatening infection develops. Discussed today hallux amputation, procedure in detail, post operative management, alternative treatments, inherent risks/benefits of procedure discussed - Consent and paperwork signed. (2) Type 2 diabetes mellitus with foot ulcer: CODE(S): E11.621 - Type 2 diabetes mellitus with foot ulcer; L97.509 - Non-pressure chronic ulcer of other part of unspecified foot with unspecified severity QUALIFIERS: Diabetes mellitus custodial insulin use: with termite exterminator use Qualified Code(s): E11.621 - Type 2 diabetes mellitus with foot ulcer; L97.509 - Non-pressure chronic ulcer of other part of unspecified foot with unspecified severity; Z79.4 - termite exterminator helper (current) use of insulin (3) Non-pressure chronic ulcer of other part of right foot with necrosis of bone: CODE(S): L97.514 - Non-pressure chronic ulcer of other part of right foot with necrosis of bone (4) Other specified peripheral vascular diseases: CODE(S): I73.89 - Other specified peripheral vascular diseases
--- NOTE | 2024-08-24 12:01 | WC ---
PHOTO 08/23/24 RIGHT GREAT TOE
== END 2024-09-21 23:59 | disposition home or self-care (01) ==
LOC: WC 08:44
PROVIDERS: PCP Family Medicine; Referring Provider Nurse Practitioner Family; Visit Provider Podiatrist
DX: E11.621 Type 2 diabetes mellitus with foot ulcer (principal); L97.514 Non-pressure chronic ulcer of other part of right foot with necrosis of bone; E11.51 Type 2 diabetes mellitus with diabetic peripheral angiopathy without gangrene; Z79.4 Long term (current) use of insulin
CPT/HCPCS: 99213; G0463

== ENCOUNTER 2024-08-27 08:53 | Inpatient (IN) | payer MEDICARE, MEDICAID, SELFPAY ==
[2024-08-27] VITALS (10 sets, daily range): BP systolic 122–152; BP diastolic 41–52; PULSE 48–70; RESP 11–16; TEMP 36.4–37.2; O2SAT 89–100; BMI 23.6; BMI 22.9
--- NOTE | 2024-08-27 09:22 | ED.VIS.LOWEX ---
HPI History of Present Illness Chief Complaint: Wound Detail of Chief Complaint: Wound to right great toe Informant: patient Narrative Narrative: Patient presents to the emergency department complaint of a wound to the right great toe. Patient has had the wound since March 2024. 3 days ago started having increasing pain and swelling. She has history of peripheral vascular disease and tells me that she is scheduled to have surgery with Dr. Mccray on the of this month. She supposed to have some sort of a bypass to improve flow to her foot. Patient also sees Dr. Tiwari with a telegraph office telephone clerk. She may need to have a resection of her great toe. She just does not feel well but denies fever. She also has history of coronary artery disease and is currently on aspirin and Plavix. [facility] Medical History (Updated 08/27/24 @ 10:[address] 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 Non-ST elevation [place] (NSTEMI) Diabetic foot infection Syncope Sepsis Aftercare following surgery of the circulatory system TIA (transient ischemic attack) Stroke/cerebrovascular accident Carotid stenosis Wears eyeglasses Depression Anxiety Hx of syncope Dietary restriction Hx of heartburn Hx of shortness of breath Hx of edema Hx of echocardiogram Hx of cardiovascular stress test Preoperative cardiovascular examination Carotid stenosis Ulcer of left foot with bone involvement without evidence of necrosis Non-pressure chronic ulcer of other part of left foot with necrosis of bone Wears dentures Ambulates with cane Arthritis Easy bruising Prolapsed bladder Former smoker Cardiology follow-up encounter Cellulitis of left thigh Syncope Hematoma of frontal scalp Post-op pain Ischaemic rest pain of lower extremity Open wound of left foot Cellulitis of left foot 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 without evidence of necrosis Cellulitis of left toe Amputated toe GI bleed Non-pressure chronic ulcer of other part of left foot with fat layer exposed Rectocele Cystocele Presence of stent in coronary artery (~07/04/11) Essential hypertension RBBB (right bundle branch block) Atherosclerotic heart disease of [place] coronary artery without angina pectoris Incomplete prolapse of vaginal vault HTN (hypertension) Osteoarthritis Diabetes Hyperlipidemia Carotid stenosis, bilateral BBB (bundle branch block) PAD (peripheral artery disease) Home Medications ?Medication ?Instructions ?Recorded ?Last Taken ?Type clopidogrel 75 mg tablet 75 mg PO DAILY platelet inhibitor 06/07/16 08/27/24 History multivitamin 1 tab PO DAILY SUPPLEMENT 04/28/19 08/27/24 History lisinopril 20 mg tablet 20 mg PO BID BP 01/01/21 08/27/24 History metoprolol tartrate 25 mg tablet 25 mg PO TID BP 01/01/21 08/27/24 History metformin 500 mg tablet,extended 500 mg PO BID DM 07/01/21 08/27/24 History release 24 hr amlodipine 10 mg tablet 10 mg PO DAILY bp 11/12/23 08/27/24 History aspirin 81 mg tablet,delayed 81 mg PO DAILY@0800 [facility] 05/16/24 08/27/24 Rx release #0 tabs nitroglycerin 0.4 mg sublingual 0.4 mg sublingual Q5-15M PRN chest 07/27/24 Unknown Rx tablet pain #25 tabs acetaminophen 325 mg tablet 650 mg PO Q6H PRN PRN fever 08/27/24 Unknown History doxycycline hyclate 100 mg tablet 100 mg PO BID 08/27/24 08/27/24 History Allergy/AdvReac Type Severity Reaction Status Date / Time pravastatin AdvReac Severe myalgias Verified 08/27/24 08:55 [id number] Reductase AdvReac Severe myalgias Verified 08/27/24 08:55 Inhibitor Sulfa (Sulfonamide AdvReac Mild stomach Verified 08/27/24 08:55 Antibiotics) upset atorvastatin AdvReac myalgias Verified 08/27/24 08:55 Family History Father Diabetes Heart disease Brother Diabetes Colon cancer Brother Diabetes Surgical History (Updated 08/25/24 @ 09:22 by Melania Land) History of cardiac catheterization Hx of toe surgery Hx of toe surgery S/P bladder repair History of colonoscopy History of tonsillectomy Cataract extraction status of right eye Presence of coronary angioplasty implant and graft (~05/11/24) History of hemorrhoidectomy History of hysterectomy History of left-sided carotid endarterectomy Status post peripheral artery angioplasty History of heart artery stent Social History Smoking Status: Former smoker how long ago did patient quit smokin + years ago alcohol intake: current alcohol intake frequency: a few times a month Alcohol type: wine substance use type: does not use caffeine: Yes Type: coffee Number of servings: 2 what type of physical activity do you participate in: walking seatbelt use: always do you feel safe at home: Yes ROS ROS ED Review of Systems ROS Unobtainable: other Constitutional Constitutional ED: Reports lethargy; Denies chills, fever(s), sweats or weight loss Eyes Eyes: Denies blurry vision, change in vision or diplopia ENT ENT ED: Denies rhinorrhea or sore throat Cardiovascular Cardiovascular: Denies chest pain, orthopnea or racing heartbeat Respiratory/Chest Respiratory/Chest: Denies cough, dyspnea, orthopnea or sputum Gastrointestinal Gastrointestinal: Denies abdominal pain, diarrhea, nausea or vomiting Genitourinary Genitourinary ED: Denies dysuria, hematuria or urinary frequency Musculoskeletal Musculoskeletal: Reports other Details: Right foot pain and swelling, right great toe wound ; Denies arthralgias, back pain, myalgias or neck pain Integumentary Denies abscess, Abrasions or rash Neurologic Neurologic: Denies headache(s) or weakness Psychiatric Psychiatric: Denies anxiety, depression or suicidal thoughts Endocrine Endocrinology: Denies polydipsia, polyphagia or polyuria Hematologic/Lymphatic Hematologic/Lymphatic: Denies easy bleeding, easy bruising or lymphadenopathy Allergic/Immunologic Allergic/Immunologic ED: Denies mouth swelling, tongue swelling or urticaria EXAM Physical Exam Const Vital Signs: 08/27/24 08:53 08/27/24 08:53 08/27/24 08:57 Temperature 98.9 F 98.9 F Temperature Source Oral Oral Pulse Rate 48 L 48 L Respiratory Rate 14 14 Blood Pressure 122/41 H 122/41 H Blood Pressure Mean 68 68 Pulse Ox 90 89 90 Oxygen Delivery Method Room Air Room Air Room Air Positive well nourished and well developed General Appearance ED: well developed and NAD HEENT Reports TM's clear and moist mucous membranes normocephalic and atraumatic; Negative for trauma or tenderness Tympanic Membrane ED: Yes TM's clear Eyes PERRL and EOMs intact bilaterally General Eye ED: Negative for pale conjunctiva or scleral icterus Neck no lymphadenopathy, supple and no JVD General: Negative for tenderness Chest Wall inspection of chest normal and palpation of chest normal Chest: Negative for tenderness Resp normal respiratory effort and clear to auscultation bilaterally Effort and Inspection: Negative for respiratory distress or pain with movement Auscultation: Negative for rhonchi, wheezes or diminished lung sounds Cardio regular rate, regular rhythm, S1 normal heart sound, S2 normal heart sound and no murmurs Peripheral Pulses: pulses 2+ throughout GI normal to inspection, nondistended, normoactive bowel sounds, soft to palpation, non-tender, non-distended and no masses Back/Spine no CVA tenderness and no thoracic nor lumbar tenderness Extremity Extremity Narrative: Right foot-patient has a wound to the dorsum of the great toe involving the nail and distal phalanx. Toe is swollen and erythematous. There is edema into the foot with some diffuse erythema. All her toes slightly edematous. I am able to palpate a dorsal pedal pulse. Decreased posterior tibial pulse. General Extremety ED: Negative for edema General Extremity: Negative for edema Neuro oriented x3, CN's II-XII intact bilaterally, no sensory deficits noted and gait normal Sensorium / Orientation: awake, alert, oriented to person, oriented to place and oriented to time Motor Exam: strength 5/5 throughout and strength abnormal Psych mental status grossly normal Skin no rashes or lesions noted and no wounds MDM MDM MDM Narrative Medical decision making narrative: Patient with chronic wound to the right great toe. She also has history of peripheral vascular disease. Patient scheduled for bypass on right leg on September 05. Patient with increased pain and swelling as well as erythema. Concerned about infection. Patient had an IV line stat which. CBC with differential obtained showed white count of 9.9 with hemoglobin 11.7 platelet count of 358. Chemistries unremarkable. Lactate was elevated 3.4. Patient started on Zosyn as well as vancomycin IV. X-rays of the right foot obtained showed osteomyelitis of the distal phalanx of the great toe. Case discussed with hospitalist to evaluate patient for admission. I discussed case with vascular surgeon Dr. Mccray. Also will discuss case with patient's telegraph office telephone clerk Dr. Tiwari. Lab Data Attestation: I reviewed the patient's lab results. Labs: Laboratory Results - last 24 hr 08/27/24 09:31 WBC 9.9 RBC 3.98 L Hgb 11.7 L Hct 35.2 L MCV 88.4 MCH 29.4 MCHC 33.2 RDW Std Deviation 42.6 RDW Coeff of Kathy 13.1 Plt Count 358 MPV 9.3 Immature Gran % (Auto) 0.400 Neut % (Auto) 74.5 H Lymph % (Auto) 15.4 L [place] % (Auto) 8.1 Eos % (Auto) 1.1 Baso % (Auto) 0.5 Absolute Neuts (auto) 7.3 Absolute Lymphs (auto) 1.52 Nucleated RBC % 0 Sodium 136 Potassium 4.4 Chloride 98 Carbon Dioxide 23.5 Anion Gap 14 BUN 24 H Creatinine 0.92 Estim Creat Clear Calc 36.50 L Est GFR (MDRD) Non-Af 60 BUN/Creatinine Ratio 25.8 H Glucose 194 H Lactic Acid 3.4 H* Calcium 9.6 Radiography Diagnostic Testing: Clinical Impression(s) from Imaging Studies Foot X-Ray 08/27/24 09:31 IMPRESSION: Findings are highly suspect for osteomyelitis of the great toe. [facility] Three-view x-rays of the right foot obtained interpreted by myself as abnormal destructive lesion of the distal phalanx of the great toes suspicious for osteomyelitis. Radiology in agreement Discharge Plan Triage Chief Complaint: Wound ED Provider: Abhinav Contreras Dx/Rx/DC Orders Clinical Impression: Osteomyelitis of great toe of right foot, Peripheral vascular disease, Cellulitis of foot, right Prescriptions: No Action multivitamin Tablet 1 tab PO DAILY metoprolol tartrate 25 mg tablet 25 mg PO TID lisinopril 20 mg tablet 20 mg PO BID metformin 500 mg tablet extended release 24 hr 500 mg PO BID nitroglycerin 0.4 mg tablet, sublingual 0.4 mg SUBLINGUAL Q5-15M PRN (Reason: chest pain) Qty: 25 3RF clopidogrel 75 MG tablet 75 mg PO DAILY amlodipine 10 mg tablet 10 mg PO DAILY aspirin 81 mg Tablet,Delayed Release (Dr/Ec) 81 mg PO DAILY@0800 Qty: 0 0RF acetaminophen 325 mg tablet 650 mg PO Q6H PRN PRN (Reason: fever) doxycycline hyclate 100 mg tablet 100 mg PO BID Patient Comments: start date- 08/29/24 end date- 09/08/24 Primary Care Provider: Mc Marks Referrals: Mc Marks MD [Primary Care Provider] - Print Language: Bulgarian Disposition Disposition: Acute Care Hospital [facility]
--- NOTE | 2024-08-27 09:31 | RAD_ITS ---
EXAM: Right foot three-view CLINICAL HISTORY: Diabetes with right great toe wound COMPARISON: None TECHNIQUE: AP frontal, oblique and lateral radiographs of the right foot are obtained. FINDINGS: There is osteolytic process involving the mid aspect of the proximal phalanx of the 1st digit the middle and distal fragments are displaced anteriorly. Mild bunionette (tailor's bunion) of the 5th digit at the 5th MTP joint RAD/Foot min 3 Views IMPRESSION: Findings are highly suspect for osteomyelitis of the great toe. Reading [facility]
[2024-08-27 09:48] LABS: Absolute Lymphocyte Count 1.52 X10^3/uL (0.83-4.51); Absolute Neutrophil Count 7.3 X10^3/uL (2.0-7.7); Basophil# 0.05 X10^3/uL; Basophil% 0.5 % (0-1); Eosinophil# 0.11 X10^3/uL; Eosinophils% 1.1 % (0-5); Hematocrit 35.2 % (37-47); Hemoglobin 11.7 g/dL (12.0-15.0); Lymphocyte # 1.52 X10^3/ul (0.83-4.51); Lymphocyte % 15.4 % (19-41); Mean Corp Hgb Conc 33.2 g/dL (32-36); Mean Corpuscular Hgb 29.4 pg (27.0-32.0); Mean Corpuscular Volume 88.4 fL (81-99); Mean Platelet Vol. 9.3 fl (6.2-12.0); Monocyte% 8.1 % (0-10); NRBC Flagged by Analyzer 0 % (0-5); Neutrophil # 7.33 X10^3/uL (2.7-7.7); Neutrophil % 74.5 % (47-70); Platelet Count 358 K/mm3 (150-450); RBC Distribution Width CV 13.1 % (11.6-14.6); RBC Distribution Width SD 42.6 fl (35.1-43.9); Red Blood Count 3.98 M/mm3 (4.2-5.4); White Blood Count 9.9 K/mm3 (4.4-11.0)
[2024-08-27] MEDS: Piperacil/Tazobactam 4.5 GM in 0.9% Normal Saline (100mL MB+) 100 ML IV (10:26)
[2024-08-27] MEDS: Ondansetron 4 MG/2 ML Vial IV (10:27)
[2024-08-27] MEDS: Morphine 4 MG/ML Syringe IV (10:27)
[2024-08-27] MEDS: 0.9% Normal Saline (1000mL) 1,000 ML 999 ML IV (10:30)
[2024-08-27 10:34] LABS: Anion Gap 14 (5-15); BUN 24 mg/dL (4-19); BUN/Creat Ratio 25.8 RATIO (10-20); Calcium,Total 9.6 mg/dL (7.6-11.0); Carbon Dioxide 23.5 mmol/L (21.0-32.0); Chloride 98 mmol/L (98-108); Creatinine, Serum 0.92 mg/dL (0.70-1.20); EST Glomerular Filtration Rate 60 (>60); Glucose 194 mg/dL (70-99); Potassium 4.4 mmol/L (3.3-5.1); Sodium Level 136 mmol/L (133-145)
--- NOTE | 2024-08-27 10:44 | PCM.HP.STD ---
HPI - General General Date of Admission: 08/27/24 Date of Service: 08/27/24 Chief Complaint: Right great toe wound HPI Narrative GENTRY COBB, is a 88 F with multiple comorbidities including diabetic foot ulceration involving the right big toe, peripheral arterial disease, coronary artery disease who presented to the emergency department with worsening pain involving the right great toe. Patient has had infection involving the right big toe since March 2024 and has been seen at the wound care center. Patient is scheduled to undergo revascularization on 09/05/[address] Mccray prior to amputation of the right big toe. Presented to the emergency department as stated above as a result of worsening pain. X-ray of the right foot obtained demonstrated findings suspicious for osteomyelitis involving the right great toe. Patient was found to have elevated lactic acid level however presentation was not consistent with sepsis. 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 Non-ST elevation [place] (NSTEMI) Diabetic foot infection Syncope Sepsis Aftercare following surgery of the circulatory system TIA (transient ischemic attack) Stroke/cerebrovascular accident Carotid stenosis Wears eyeglasses Depression Anxiety Hx of syncope Dietary restriction Hx of heartburn Hx of shortness of breath Hx of edema Hx of echocardiogram Hx of cardiovascular stress test Preoperative cardiovascular examination Carotid stenosis Ulcer of left foot with bone involvement without evidence of necrosis Non-pressure chronic ulcer of other part of left foot with necrosis of bone Wears dentures Ambulates with cane Arthritis Easy bruising Prolapsed bladder Former smoker Cardiology follow-up encounter Cellulitis of left thigh Syncope Hematoma of frontal scalp Post-op pain Ischaemic rest pain of lower extremity Open wound of left foot Cellulitis of left foot 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 without evidence of necrosis Cellulitis of left toe Amputated toe GI bleed Non-pressure chronic ulcer of other part of left foot with fat layer exposed Rectocele Cystocele Presence of stent in coronary artery (~07/04/11) Essential hypertension RBBB (right bundle branch block) Atherosclerotic heart disease of [place] coronary artery without angina pectoris Incomplete prolapse of vaginal vault HTN (hypertension) Osteoarthritis Diabetes Hyperlipidemia Carotid stenosis, bilateral BBB (bundle branch block) PAD (peripheral artery disease) Home Medications ?Medication ?Instructions ?Recorded ?Last Taken ?Type clopidogrel 75 mg tablet 75 mg PO DAILY platelet inhibitor 06/07/16 08/27/24 History multivitamin 1 tab PO DAILY SUPPLEMENT 04/28/19 08/27/24 History lisinopril 20 mg tablet 20 mg PO BID BP 01/01/21 08/27/24 History metoprolol tartrate 25 mg tablet 25 mg PO TID BP 01/01/21 08/27/24 History metformin 500 mg tablet,extended 500 mg PO BID DM 07/01/21 08/27/24 History release 24 hr amlodipine 10 mg tablet 10 mg PO DAILY bp 11/12/23 08/27/24 History aspirin 81 mg tablet,delayed 81 mg PO DAILY@0800 [facility] 05/16/24 08/27/24 Rx release #0 tabs nitroglycerin 0.4 mg sublingual 0.4 mg sublingual Q5-15M PRN chest 07/27/24 Unknown Rx tablet pain #25 tabs acetaminophen 325 mg tablet 650 mg PO Q6H PRN PRN fever 08/27/24 Unknown History doxycycline hyclate 100 mg tablet 100 mg PO BID 08/27/24 08/27/24 History Allergy/AdvReac Type Severity Reaction Status Date / Time pravastatin AdvReac Severe myalgias Verified 08/27/24 08:55 [id number] Reductase AdvReac Severe myalgias Verified 08/27/24 08:55 Inhibitor Sulfa (Sulfonamide AdvReac Mild stomach Verified 08/27/24 08:55 Antibiotics) upset atorvastatin AdvReac myalgias Verified 08/27/24 08:55 Family History Father Diabetes Heart disease Brother Diabetes Colon cancer Brother Diabetes Surgical History History of cardiac catheterization Hx of toe surgery Hx of toe surgery S/P bladder repair History of colonoscopy History of tonsillectomy Cataract extraction status of right eye Presence of coronary angioplasty implant and graft (~05/11/24) History of hemorrhoidectomy History of hysterectomy History of left-sided carotid endarterectomy Status post peripheral artery angioplasty History of heart artery stent Social History Smoking Status: Former smoker how long ago did patient quit smokin + years ago alcohol intake: current alcohol intake frequency: a few times a month Alcohol type: wine substance use type: does not use caffeine: Yes Type: coffee Number of servings: 2 what type of physical activity do you participate in: walking seatbelt use: always do you feel safe at home: Yes ROS ROS Narrative GENERAL: denies fever, chills, night sweats, weight loss, anorexia HEENT: denies headache, sinus congestion, or drainage, dysphagia RESPIRATORY: denies cough, sputum production, shortness of breath, dyspnea on exertion CARDIAC: denies chest pain, palpitations, orthopnea, PND GASTROINTESTINAL: denies abdominal pain, nausea, vomiting, melena, GENITOURINARY: denies dysuria, urgency, frequency, heamaturia EXTREMITY: denies swelling MUSCULOSKELETAL: Right big toe pain NEUROLOGIC: denies focal numbness, weakness, tingling HEMATOLOGIC: denies easy bruising and/or hemorrhage INTEGUMENT: denies rashes PSYCHIATRIC: denies suicidal or homicidal ideation Vital Signs Vital Signs Vital Signs: 08/27/24 08:53 08/27/24 08:53 08/27/24 08:57 Temperature 98.9 F 98.9 F Temperature Source Oral Oral Pulse Rate 48 L 48 L Respiratory Rate 14 14 Blood Pressure 122/41 H 122/41 H Blood Pressure Mean 68 68 Pulse Ox 90 89 90 Oxygen Delivery Method Room Air Room Air Room Air Weight Weight: 62.6 kg Body Mass Index (BMI) 23.6 Physical Exam Narrative GENERAL: cooperative HEENT: Atraumatic; normocephalic EYES; Anicteric, Normal Conjunctiva NECK; supple, normal thyroid, RESPIRATORY: Diminished to auscultation CARDIOVASCULAR: Regular S1 S2, GI: soft, normoactive bowel sounds, : No Renal angle tenderness; EXTREMITIES: Ulceration involving the right big toe with some pus MUSCULOSKELETAL: no muscle wasting NEURO: Awake; no lateralizing signs. SKIN: No Rash PSYCH; Flat affect Results Lab / Micro Data 08/27/24 09:31 08/27/24 09:31 Labs: Laboratory Results - last 24 hr 08/27/24 09:31: WBC 9.9, RBC 3.98 L, Hgb 11.7 L, Hct 35.2 L, MCV 88.4, MCH 29.4, MCHC 33.2, RDW Std Deviation 42.6, RDW Coeff of Kathy 13.1, Plt Count 358, MPV 9.3, Immature Gran % (Auto) 0.400, Neut % (Auto) 74.5 H, Lymph % (Auto) 15.4 L, [place] % (Auto) 8.1, Eos % (Auto) 1.1, Baso % (Auto) 0.5, Absolute Neuts (auto) 7.3, Absolute Lymphs (auto) 1.52, Nucleated RBC % 0, Sodium 136, Potassium 4.4, Chloride 98, Carbon Dioxide 23.5, Anion Gap 14, BUN 24 H, Creatinine 0.92, Estim Creat Clear Calc 36.50 L, Est GFR (MDRD) Non-Af 60, BUN/Creatinine Ratio 25.8 H, Glucose 194 H, Lactic Acid 3.4 H*, Calcium 9.6 Imaging Radiology Impression Foot X-Ray 08/27/24 09:31 IMPRESSION: Findings are highly suspect for osteomyelitis of the great toe. Reading [facility] Assessment & Plan Assessment/Plan (1) Cellulitis of foot, right: (2) Peripheral vascular disease: (3) Osteomyelitis of great toe of right foot: PLAN: Plan Patient is an 88-year-old female presented with diabetic foot ulceration involving the right big toe 1. Diabetic foot ulceration involving the right big toe patient has underlying significant medical comorbidities contributing to above including peripheral arterial disease as well as diabetes mellitus type 2. Patient started on broad-spectrum antibiotic therapy. Imaging studies obtained on admission showed findings consistent with osteomyelitis involving the right big toe. Patient was started on Unasyn as well as vancomycin consultation was placed to Dr. Gutierrez with podiatry as well as ID and vascular surgery 2. Peripheral arterial disease ? Patient is known to have significant carotid artery disease, subclavian stenosis as well as common femoral disease and plan was for patient to have undergone open revascularization on 09/05/2024 involving the right lower extremity. Consult subsequently placed to Dr. Keanu Mccray with vascular surgery prior to amputation of the right big toe 3. Coronary artery disease ? With previous PCI in 2018 as well as 2011 patient is on guideline directed medical therapy 4. Diabetes mellitus type II -patient's oral hypoglycemics held. Placed on long acting insulin, Accu-Cheks a.c. and at bedtime and covered with sliding scale insulin 5. Hypertension ? Blood pressure controlled, home medications continued with dose adjustment as needed 6. Anemia ? Secondary to chronic disorder monitoring H&H and transfuse if patient becomes symptomatic or hemoglobin falls below 7 7. History of Takotsubo cardiomyopathy ? Currently stable 8. History of depression with anxiety ? Currently not on any treatment we will continue with monitoring 9. Generalized osteoarthritis ? Pain meds as needed 10. DVT prophylaxis ? On enoxaparin Time spent in the patient's overall evaluation,decision-making process, review of diagnostic data, adjustment of management, discussion with other providers, nursing nursing and ancillary staff involved in patient's care documentation, 78 Minutes Advance planning; did discuss with the patient and family (her daughter) regarding advanced directives as well as CODE STATUS. Did explain the various scenarios involved ( FULL CODE, DNR CCA, DNR CCA with no intubation, and DNR CC and what each meant) patient elected to be DNR CCA no intubation. Order was placed. Time spent on discussion 16 minutes. Charges/Coding Multi Select Codes Visit Charges Visit Charges: 25588 Init Hosp Hospitalists' Procedures Procedures: 57085 Advncd Care Plan 30 Min
--- NOTE | 2024-08-27 11:00 | ED.RN ---
Repeat lactic labels sent to the lab due at 1231
[2024-08-27] MEDS: 0.9% Normal Saline (100mL Bag) 100 ML 15 ML IV (11:38)
[2024-08-27 11:47] LABS: Bedside Glucose 95 mg/dL (74-106)
[2024-08-27] MEDS: Vancomycin IV 1,000 MG/200 ML BAG 200 MG IV (12:24)
[2024-08-27] MEDS: Glucerna Shake 120 ML LIQUID PO ×2 (12:33→16:43)
--- NOTE | 2024-08-27 12:36 | PCM.RX.CS ---
Consult Antibiotic Management Pharmacy has been consulted to manage selected antibiotic: Vancomycin Type of Intervention Type of Consult: New start Suspected Infection Suspected Infection: Skin/Soft tissue and Osteomyelitis Prior Doses of Antibiotics Prior Doses of Antibiotics Received/Current Regimen: received vanc 1000mg IV x1 ordered in ER starting at 12:24 today Labs Labs: Sodium 136 mmol/L (133-145) 08/27/24 09:31 Potassium 4.4 mmol/L (3.3-5.1) 08/27/24 09:31 Chloride 98 mmol/L (98-108) 08/27/24 09:31 Carbon Dioxide 23.5 mmol/L (21.0-32.0) 08/27/24 09:31 Anion Gap 14 (5-15) 08/27/24 09:31 BUN 24 mg/dL (4-19) H 08/27/24 09:31 Creatinine 0.92 mg/dL (0.70-1.20) 08/27/24 09:31 Est GFR (MDRD) Non-Af 60 (>60) 08/27/24 09:31 BUN/Creatinine Ratio 25.8 RATIO (10-20) H 08/27/24 09:31 Glucose 194 mg/dL (70-99) H 08/27/24 09:31 Dosing Weight Weight used for dosin.6 kg Estimated Creatinine Clearance Estimated Creatinine Clearance: 36.5ml/min Goal Trough Goal Trough: 15-20 mcg/mL Pharmacy Plan for Drug Dosing Pharmacy Plan for Drug Dosing: Starting 24 hours after the initial dose, continue with 750mg q24h. Check a trough before the 3rd overall dose. Pharmacy Service will continue to monitor and adjust dosing as required. Follow-Up Labs Follow-Up Labs: Trough: Vancomycin Date/Time Labs Ordered Labs to be done on [date and time ordered]: 08/29/24 11:30
[2024-08-27] MEDS: Metoprolol Tartrate 25 MG Tablet PO ×2 (13:18→20:09)
[2024-08-27] MEDS: Acetaminophen 500 MG Tablet 1000 MG PO ×2 (13:19→20:09)
[2024-08-27 13:32] LABS: Bacteria 0 SEEN /hpf (None Seen); Mucous, Urine 0 SEEN /hpf (<or=2+); Red Blood Cells-Urine 0 SEEN /hpf (0-5); White Blood Cells 0 SEEN /hpf (0-5)
[2024-08-27 13:33] LABS: Color, Urine Yellow (Yellow); Glucose, Dipstick Normal (Normal); Ketone-Dipstick Negative (Negative); Leukocyte Esterase-Dipstick Negative /ul (Negative); Nitrite-Dipstick Negative (Negative); Occult Blood-Urine Negative /ul (Negative); Protein-Dipstick 30 mg/dl (Negative); Urine Bilirubin Dipstick Negative (Negative); Urine Clarity Clear (Clear); Urine Urobilinogen Normal (Normal)
[2024-08-27] MEDS: Ampicillin/Sulbactam 3 GM in 0.9% Normal Saline (100mL MB+) 100 ML IV ×3 (13:56→23:54)
[2024-08-27 14:03] LABS: Reflex Lactate? Y
[2024-08-27 14:11] LABS: Squamous Epithelial Cells - UA 0-5 SEEN /hpf (5-10)
[2024-08-27 14:11] LABS: Lactic Acid 2.3 mmol/L (0.0-2.0)
[2024-08-27 16:55] LABS: Bedside Glucose 96 mg/dL (74-106)
[2024-08-27 17:38] LABS: Reflex Lactate? Y
[2024-08-27 20:55] LABS: Bedside Glucose 183 mg/dL (74-106)
[2024-08-28] VITALS (7 sets, daily range): BP systolic 161–168; BP diastolic 53–63; PULSE 66–71; RESP 14–16; TEMP 36.4–36.7; O2SAT 96–100; BMI 20.3
[2024-08-28] MEDS: oxyCODONE 5 MG Tablet PO (01:08)
[2024-08-28] MEDS: Ampicillin/Sulbactam 3 GM in 0.9% Normal Saline (100mL MB+) 100 ML IV ×3 (05:01→17:59)
[2024-08-28] MEDS: Acetaminophen 500 MG Tablet 1000 MG PO ×3 (05:02→21:04)
[2024-08-28] MEDS: Metoprolol Tartrate 25 MG Tablet PO ×3 (05:02→21:04)
[2024-08-28 07:13] LABS: Bedside Glucose 149 mg/dL (74-106)
--- NOTE | 2024-08-28 07:56 | PCM.PN.HOSP ---
Reason for Visit Reason for Visit: Diagnoses Peripheral vascular disease, unspecified (08/27/24) Cellulitis of right lower limb (08/27/24) Osteomyelitis, unspecified (08/27/24) Subjective Subjective Patient is an 88-year-old female presented with diabetic foot ulceration involving the right big toe. Imaging studies obtained on admission came back consistent with osteomyelitis. Patient started on broad-spectrum antibiotic therapy admitted to regular nursing floor Objective Data Objective Data Vital Signs: Vital Signs Temp Pulse Resp BP Pulse Ox O2 Del Method 97.5 F L 71 16 162/53 H 100 Room Air 08/28/24 04:41 08/28/24 05:02 08/28/24 04:41 08/28/24 04:41 08/28/24 04:41 08/28/24 07:27 Oxygen Delivery Method Room Air Weight: 55.4 kg Body Mass Index (BMI) 20.3 Intake & Output: Intake and Output for Last 24 Hours 08/26/24 08/27/24 08/28/24 23:59 23:59 23:59 Intake Total 1764 624 / 624 Balance 1764 624 / 624 Lab / Micro Data 08/28/24 05:55 08/28/24 05:55 Labs: Laboratory Results - last 24 hr 08/27/24 09:31: WBC 9.9, RBC 3.98 L, Hgb 11.7 L, Hct 35.2 L, MCV 88.4, MCH 29.4, MCHC 33.2, RDW Std Deviation 42.6, RDW Coeff of [place] 13.1, Plt Count 358, MPV 9.3, Immature Gran % (Auto) 0.400, Neut % (Auto) 74.5 H, Lymph % (Auto) 15.4 L, [place] % (Auto) 8.1, Eos % (Auto) 1.1, Baso % (Auto) 0.5, Absolute Neuts (auto) 7.3, Absolute Lymphs (auto) 1.52, Nucleated RBC % 0, Sodium 136, Potassium 4.4, Chloride 98, Carbon Dioxide 23.5, Anion Gap 14, BUN 24 H, Creatinine 0.92, Estim Creat Clear Calc 36.50 L, Est GFR (MDRD) Non-Af 60, BUN/Creatinine Ratio 25.8 H, Glucose 194 H, Lactic Acid 3.4 H*, Calcium 9.6 08/27/24 11:29: POC Glucose 95 08/27/24 13:22: Urine Color Yellow, Urine Clarity Clear, Urine pH 7.0, Ur Specific [place] 1.010, Urine Protein 30 H, Urine Glucose (UA) Normal, Urine Ketones Negative, Urine Occult Blood Negative, Urine Nitrite Negative, Urine Bilirubin Negative, Urine Urobilinogen Normal, Ur Leukocyte Esterase Negative, Urine RBC 0 SEEN, Urine WBC 0 SEEN, Ur Squamous Epith Cells 0-5 SEEN, Urine Bacteria 0 SEEN, Urine Mucus 0 SEEN 08/27/24 13:30: Lactic Acid 2.3 H* 08/27/24 16:35: POC Glucose 96 08/27/24 20:12: POC Glucose 183 H 08/28/24 06:48: POC Glucose 149 H Micro: Microbiology 08/27/24 11:35 Wound - Other Skin and Soft Tissue MRSA/MSSA (PCR - Final Radiography Diagnostic Testing: Radiology Impression Foot X-Ray 08/27/24 09:31 IMPRESSION: Findings are highly suspect for osteomyelitis of the great toe. Reading [facility] Physical Exam Narrative GENERAL: cooperative HEENT: Atraumatic; normocephalic EYES; Anicteric, Normal Conjunctiva NECK; supple, normal thyroid, RESPIRATORY: Diminished to auscultation CARDIOVASCULAR: Regular S1 S2, GI: soft, normoactive bowel sounds, : No Renal angle tenderness; EXTREMITIES: Ulceration involving the right big toe with some pus MUSCULOSKELETAL: no muscle wasting NEURO: Awake; no lateralizing signs. SKIN: No Rash PSYCH; Flat affect Assessment & Plan Assessment/Plan (1) Cellulitis of foot, right: (2) Peripheral vascular disease: (3) Osteomyelitis of great toe of right foot: PLAN: Plan Patient is an 88-year-old female presented with diabetic foot ulceration involving the right big toe 1. Diabetic foot ulceration involving the right big toe patient has underlying significant medical comorbidities contributing to above including peripheral arterial disease as well as diabetes mellitus type 2. Patient started on broad-spectrum antibiotic therapy. Imaging studies obtained on admission showed findings consistent with osteomyelitis involving the right big toe. Patient was started on Unasyn as well as vancomycin consultation was placed to Dr. Gutierrez with podiatry as well as ID and vascular surgery ? 08/28/2024 wound cultures obtained on admission coming back positive for Staph aureus MRSA negative 2. Peripheral arterial disease ? Patient is known to have significant carotid artery disease, subclavian stenosis as well as common femoral disease and plan was for patient to have undergone open revascularization on 09/05/2024 involving the right lower extremity. Consult subsequently placed to Dr. Keanu Mccray with vascular surgery prior to amputation of the right big toe 3. Coronary artery disease ? With previous PCI in 2018 as well as 2011 patient is on guideline directed medical therapy 4. Diabetes mellitus type II -patient's oral hypoglycemics held. Placed on long acting insulin, Accu-Cheks a.c. and at bedtime and covered with sliding scale insulin 5. Hypertension ? Blood pressure controlled, home medications continued with dose adjustment as needed 6. Anemia ? Secondary to chronic disorder monitoring H&H and transfuse if patient becomes symptomatic or hemoglobin falls below 7 7. History of Takotsubo cardiomyopathy ? Currently stable 8. History of depression with anxiety ? Currently not on any treatment we will continue with monitoring 9. Generalized osteoarthritis ? Pain meds as needed 10. DVT prophylaxis ? On enoxaparin 11. Lactic acidosis ? Patient presentation not consistent with sepsis patient lactic acidosis is secondary to patient being on metformin monitoring Time spent in the patient's overall evaluation,decision-making process, review of diagnostic data, adjustment of management, discussion with other providers, nursing nursing and ancillary staff involved in patient's care documentation, 38 Minutes Charges/Coding Visit Charges Inpatient E&M: 97758 Subs Hosp L2
[2024-08-28 08:07] LABS: Absolute Lymphocyte Count 1.65 X10^3/uL (0.83-4.51); Absolute Neutrophil Count 5.1 X10^3/uL (2.0-7.7); Anion Gap 11 (5-15); BUN 25 mg/dL (4-19); BUN/Creat Ratio 33.1 RATIO (10-20); Basophil# 0.07 X10^3/uL; Basophil% 0.9 % (0-1); Calcium,Total 8.6 mg/dL (7.6-11.0); Carbon Dioxide 21.7 mmol/L (21.0-32.0); Chloride 101 mmol/L (98-108); Creatinine, Serum 0.74 mg/dL (0.70-1.20); EST Glomerular Filtration Rate 77 (>60); Eosinophils% 3.8 % (0-5); Estimated Creatinine Clearance 42.51 ml/min (50-250); Glucose 119 mg/dL (70-99); Hematocrit 30.3 % (37-47); Lymphocyte # 1.65 X10^3/ul (0.83-4.51); Lymphocyte % 20.9 % (19-41); Mean Corpuscular Hgb 29.8 pg (27.0-32.0); Mean Corpuscular Volume 90.2 fL (81-99); Mean Platelet Vol. 9.8 fl (6.2-12.0); Monocyte# 0.77 X10^3/uL; Monocyte% 9.8 % (0-10); NRBC Flagged by Analyzer 0 % (0-5); Neutrophil # 5.09 X10^3/uL (2.7-7.7); Neutrophil % 64.5 % (47-70); Phosphorus 3.2 mg/dL (2.7-4.5); Platelet Count 315 K/mm3 (150-450); Potassium 4.4 mmol/L (3.3-5.1); RBC Distribution Width CV 13.2 % (11.6-14.6); RBC Distribution Width SD 43.3 fl (35.1-43.9); Red Blood Count 3.36 M/mm3 (4.2-5.4); Sodium Level 133 mmol/L (133-145); White Blood Count 7.9 K/mm3 (4.4-11.0)
[2024-08-28] MEDS: Aspirin E.C. 81 MG Tablet PO (08:40)
[2024-08-28] MEDS: Glucerna Shake 120 ML LIQUID PO ×3 (08:40→16:33)
[2024-08-28] MEDS: Clopidogrel Bisulfate 75 MG Tablet PO (08:40)
[2024-08-28] MEDS: amLODIPine 10 MG Tablet PO (08:40)
[2024-08-28] MEDS: Enoxaparin 40 MG/0.4 ML Syringe SC (08:40)
--- NOTE | 2024-08-28 09:30 | PCM.CONS.GEN ---
HPI Consult Data Date of Consult: 08/28/24 HPI Narrative HPI Narrative: GENTRY COBB, is a 88 F who presents chronic ulceration to right hallux with known osteomyelitis being followed up in the wound care setting. Patient presented to ER with worsening pain to the right great toe extending into the ankle. Patient also notes new ischemic site to the lateral aspect of fifth metatarsal head. Patient denies any fever chills nausea vomiting chest pain calf pain shortness of breath. Patient has been compliant with dressing changes has no other complaints and presented early despite pending outpatient schedule procedure addressing issue on 09/05/2024 due to increased pain. No other complaints. 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 Non-ST elevation [place] (NSTEMI) Diabetic foot infection Syncope Sepsis Aftercare following surgery of the circulatory system TIA (transient ischemic attack) Stroke/cerebrovascular accident Carotid stenosis Wears eyeglasses Depression Anxiety Hx of syncope Dietary restriction Hx of heartburn Hx of shortness of breath Hx of edema Hx of echocardiogram Hx of cardiovascular stress test Preoperative cardiovascular examination Carotid stenosis Ulcer of left foot with bone involvement without evidence of necrosis Non-pressure chronic ulcer of other part of left foot with necrosis of bone Wears dentures Ambulates with cane Arthritis Easy bruising Prolapsed bladder Former smoker Cardiology follow-up encounter Cellulitis of left thigh Syncope Hematoma of frontal scalp Post-op pain Ischaemic rest pain of lower extremity Open wound of left foot Cellulitis of left foot 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 without evidence of necrosis Cellulitis of left toe Amputated toe GI bleed Non-pressure chronic ulcer of other part of left foot with fat layer exposed Rectocele Cystocele Presence of stent in coronary artery (~07/04/11) Essential hypertension RBBB (right bundle branch block) Atherosclerotic heart disease of [place] coronary artery without angina pectoris Incomplete prolapse of vaginal vault HTN (hypertension) Osteoarthritis Diabetes Hyperlipidemia Carotid stenosis, bilateral BBB (bundle branch block) PAD (peripheral artery disease) Home Medications ?Medication ?Instructions ?Recorded ?Last Taken ?Type clopidogrel 75 mg tablet 75 mg PO DAILY platelet inhibitor 06/07/16 08/27/24 History multivitamin 1 tab PO DAILY SUPPLEMENT 04/28/19 08/27/24 History lisinopril 20 mg tablet 20 mg PO BID BP 01/01/21 08/27/24 History metoprolol tartrate 25 mg tablet 25 mg PO TID BP 01/01/21 08/27/24 History metformin 500 mg tablet,extended 500 mg PO BID DM 07/01/21 08/27/24 History release 24 hr amlodipine 10 mg tablet 10 mg PO DAILY bp 11/12/23 08/27/24 History aspirin 81 mg tablet,delayed 81 mg PO DAILY@0800 [facility] 05/16/24 08/27/24 Rx release #0 tabs nitroglycerin 0.4 mg sublingual 0.4 mg sublingual Q5-15M PRN chest 07/27/24 Unknown Rx tablet pain #25 tabs acetaminophen 325 mg tablet 650 mg PO Q6H PRN PRN fever 08/27/24 Unknown History doxycycline hyclate 100 mg tablet 100 mg PO BID 08/27/24 08/27/24 History Allergy/AdvReac Type Severity Reaction Status Date / Time pravastatin AdvReac Severe myalgias Verified 08/27/24 08:55 [id number] Reductase AdvReac Severe myalgias Verified 08/27/24 08:55 Inhibitor Sulfa (Sulfonamide AdvReac Mild stomach Verified 08/27/24 08:55 Antibiotics) upset atorvastatin AdvReac myalgias Verified 08/27/24 08:55 Family History Father Diabetes Heart disease Brother Diabetes Colon cancer Brother Diabetes Surgical History History of cardiac catheterization Hx of toe surgery Hx of toe surgery S/P bladder repair History of colonoscopy History of tonsillectomy Cataract extraction status of right eye Presence of coronary angioplasty implant and graft (~05/11/24) History of hemorrhoidectomy History of hysterectomy History of left-sided carotid endarterectomy Status post peripheral artery angioplasty History of heart artery stent Social History Smoking Status: Former smoker how long ago did patient quit smokin + years ago alcohol intake: current alcohol intake frequency: a few times a month Alcohol type: wine substance use type: does not use caffeine: Yes Type: coffee Number of servings: 2 what type of physical activity do you participate in: walking seatbelt use: always do you feel safe at home: Yes ROS Constitutional Constitutional: Denies systems reviewed and no addt'l complaints, except as documented, daytime sleepiness or difficulty sleeping Eyes Eyes: Denies blind spots, bloody eye or decreased night vision ENT HEENT: Denies foreign body in nose, halitosis or mucositis Cardiovascular Cardiovascular: Denies abdominal pain, arrhythmia on telemetry or chest pain with activity Respiratory/Chest Respiratory/Chest: Denies change in phlegm color, chest congestion or dyspnea on exertion Gastrointestinal Gastrointestinal: Denies change in bowel habits, dry heaves or dyspepsia Genitourinary Genitourinary: Denies burning urination, change in libido or dysuria Lab / Micro Data 08/28/24 05:55 08/28/24 05:55 Labs: Laboratory Results - last 24 hr 08/27/24 09:31: WBC 9.9, RBC 3.98 L, Hgb 11.7 L, Hct 35.2 L, MCV 88.4, MCH 29.4, MCHC 33.2, RDW Std Deviation 42.6, RDW Coeff of Kathy 13.1, Plt Count 358, MPV 9.3, Immature Gran % (Auto) 0.400, Neut % (Auto) 74.5 H, Lymph % (Auto) 15.4 L, [place] % (Auto) 8.1, Eos % (Auto) 1.1, Baso % (Auto) 0.5, Absolute Neuts (auto) 7.3, Absolute Lymphs (auto) 1.52, Nucleated RBC % 0, Sodium 136, Potassium 4.4, Chloride 98, Carbon Dioxide 23.5, Anion Gap 14, BUN 24 H, Creatinine 0.92, Estim Creat Clear Calc 36.50 L, Est GFR (MDRD) Non-Af 60, BUN/Creatinine Ratio 25.8 H, Glucose 194 H, Lactic Acid 3.4 H*, Calcium 9.6 08/27/24 11:29: POC Glucose 95 08/27/24 13:22: Urine Color Yellow, Urine Clarity Clear, Urine pH 7.0, Ur Specific [place] 1.010, Urine Protein 30 H, Urine Glucose (UA) Normal, Urine Ketones Negative, Urine Occult Blood Negative, Urine Nitrite Negative, Urine Bilirubin Negative, Urine Urobilinogen Normal, Ur Leukocyte Esterase Negative, Urine RBC 0 SEEN, Urine WBC 0 SEEN, Ur Squamous Epith Cells 0-5 SEEN, Urine Bacteria 0 SEEN, Urine Mucus 0 SEEN 08/27/24 13:30: Lactic Acid 2.3 H* 08/27/24 16:35: POC Glucose 96 08/27/24 20:12: POC Glucose 183 H 08/28/24 05:55: WBC 7.9, RBC 3.36 L, Hgb 10.0 L, Hct 30.3 L, MCV 90.2, MCH 29.8, MCHC 33.0, RDW Std Deviation 43.3, RDW Coeff of Kathy 13.2, Plt Count 315, MPV 9.8, Immature Gran % (Auto) 0.100, Neut % (Auto) 64.5, Lymph % (Auto) 20.9, [place] % (Auto) 9.8, Eos % (Auto) 3.8, Baso % (Auto) 0.9, Absolute Neuts (auto) 5.1, Absolute Lymphs (auto) 1.65, Nucleated RBC % 0, Sodium 133, Potassium 4.4, Chloride 101, Carbon Dioxide 21.7, Anion Gap 11, BUN 25 H, Creatinine 0.74, Estim Creat Clear Calc 42.51 L, Est GFR (MDRD) Non-Af 77, BUN/Creatinine Ratio 33.1 H, Glucose 119 H, Calcium 8.6, Phosphorus 3.2, Magnesium 2.0 08/28/24 06:48: POC Glucose 149 H Micro: Microbiology 08/27/24 11:35 Wound - Other Skin and Soft Tissue MRSA/MSSA (PCR - Final Imaging Radiology Impression Foot X-Ray 08/27/24 09:31 IMPRESSION: Findings are highly suspect for osteomyelitis of the great toe. Reading [facility]
[2024-08-28 09:41] LABS: Hemoglobin A1c 6.8 % (<=5.6)
[2024-08-28] MEDS: Insulin Lispro 100 UNIT/ML INSULN.PEN SC ×2 (11:15→21:05)
[2024-08-28] MEDS: 0.9% Saline Lock 10 ML Syringe IV ×2 (11:17→17:59)
[2024-08-28 11:29] LABS: Bedside Glucose 216 mg/dL (74-106)
[2024-08-28] MEDS: Vancomycin HCl 750 MG in 0.9% Normal Saline (250mL Bag) 250 ML 250 MG IV (12:31)
--- NOTE | 2024-08-28 12:39 | EX.PCM.CON.S ---
Assessment & Plan Assessment/Plan (1) Atherosclerosis of [place] arteries of extremities with gangrene, right leg: PLAN: -chronic foot wound with new cellulitis -is scheduled for tibial bypass 09/05 along with toe amputation -if more immediate surgery with podiatry needed for source control would be reasonable to proceed -will look into OR availability for possibility of moving bypass up to later this week HPI Consult Data Date of Consult: 08/28/24 HPI Narrative HPI Narrative: GENTRY COBB, is a 88 F who presents with worsened pain in right foot wound. Also with new pain and worsened lateral foot wound. No F/C/N/V. Foot feels a little better since she has been admitted. Dressing changed this morning by Dr. Tiwari. 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 Non-ST elevation [place] (NSTEMI) Diabetic foot infection Syncope Sepsis Aftercare following surgery of the circulatory system TIA (transient ischemic attack) Stroke/cerebrovascular accident Carotid stenosis Wears eyeglasses Depression Anxiety Hx of syncope Dietary restriction Hx of heartburn Hx of shortness of breath Hx of edema Hx of echocardiogram Hx of cardiovascular stress test Preoperative cardiovascular examination Carotid stenosis Ulcer of left foot with bone involvement without evidence of necrosis Non-pressure chronic ulcer of other part of left foot with necrosis of bone Wears dentures Ambulates with cane Arthritis Easy bruising Prolapsed bladder Former smoker Cardiology follow-up encounter Cellulitis of left thigh Syncope Hematoma of frontal scalp Post-op pain Ischaemic rest pain of lower extremity Open wound of left foot Cellulitis of left foot 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 without evidence of necrosis Cellulitis of left toe Amputated toe GI bleed Non-pressure chronic ulcer of other part of left foot with fat layer exposed Rectocele Cystocele Presence of stent in coronary artery (~07/04/11) Essential hypertension RBBB (right bundle branch block) Atherosclerotic heart disease of [place] coronary artery without angina pectoris Incomplete prolapse of vaginal vault HTN (hypertension) Osteoarthritis Diabetes Hyperlipidemia Carotid stenosis, bilateral BBB (bundle branch block) PAD (peripheral artery disease) Home Medications ?Medication ?Instructions ?Recorded ?Last Taken ?Type clopidogrel 75 mg tablet 75 mg PO DAILY platelet inhibitor 06/07/16 08/27/24 History multivitamin 1 tab PO DAILY SUPPLEMENT 04/28/19 08/27/24 History lisinopril 20 mg tablet 20 mg PO BID BP 01/01/21 08/27/24 History metoprolol tartrate 25 mg tablet 25 mg PO TID BP 01/01/21 08/27/24 History metformin 500 mg tablet,extended 500 mg PO BID DM 07/01/21 08/27/24 History release 24 hr amlodipine 10 mg tablet 10 mg PO DAILY bp 11/12/23 08/27/24 History aspirin 81 mg tablet,delayed 81 mg PO DAILY@0800 [facility] 05/16/24 08/27/24 Rx release #0 tabs nitroglycerin 0.4 mg sublingual 0.4 mg sublingual Q5-15M PRN chest 07/27/24 Unknown Rx tablet pain #25 tabs acetaminophen 325 mg tablet 650 mg PO Q6H PRN PRN fever 08/27/24 Unknown History doxycycline hyclate 100 mg tablet 100 mg PO BID 08/27/24 08/27/24 History Allergy/AdvReac Type Severity Reaction Status Date / Time pravastatin AdvReac Severe myalgias Verified 08/27/24 08:55 [id number] Reductase AdvReac Severe myalgias Verified 08/27/24 08:55 Inhibitor Sulfa (Sulfonamide AdvReac Mild stomach Verified 08/27/24 08:55 Antibiotics) upset atorvastatin AdvReac myalgias Verified 08/27/24 08:55 Family History Father Diabetes Heart disease Brother Diabetes Colon cancer Brother Diabetes Surgical History History of cardiac catheterization Hx of toe surgery Hx of toe surgery S/P bladder repair History of colonoscopy History of tonsillectomy Cataract extraction status of right eye Presence of coronary angioplasty implant and graft (~05/11/24) History of hemorrhoidectomy History of hysterectomy History of left-sided carotid endarterectomy Status post peripheral artery angioplasty History of heart artery stent Social History Smoking Status: Former smoker how long ago did patient quit smokin + years ago alcohol intake: current alcohol intake frequency: a few times a month Alcohol type: wine substance use type: does not use caffeine: Yes Type: coffee Number of servings: 2 what type of physical activity do you participate in: walking seatbelt use: always do you feel safe at home: Yes ROS Constitutional Constitutional: Denies chills, fever(s), frequent falls, lethargy or weakness Eyes Eyes: Denies blind spots, change in vision or loss of vision ENT HEENT: Denies bleeding gums, hoarseness or sore throat Cardiovascular Cardiovascular: Denies abdominal pain, bluish discoloration of hand/feet, chest pain with activity, claudication, cold extremities, cyanosis, dyspnea on exertion, erythema on extremities, irregular heart rhythm, leg edema, numbness in extremities or weakness in extremities Respiratory/Chest Respiratory/Chest: Denies cough, excessive phlegm production, shortness of breath at rest, shortness of breath with exertion or wheezing Gastrointestinal Gastrointestinal: Denies anorexia, change in stool character, constipation, diarrhea, melena or rectal bleeding Genitourinary Genitourinary: Denies dysuria or hematuria Musculoskeletal Musculoskeletal: Denies abnormal gait Integumentary Integumentary: Reports erythema, non-healing lesions and wounds Neurologic Neurologic: Denies abnormal speech, focal weakness, headache(s), loss of vision, numbness, paresthesias or sensory deficit Hematologic/Lymphatic Hematologic/Lymphatic: Denies easy bleeding, easy bruising or lymphadenopathy Physical Exam Const alert, oriented x3, no apparent distress and healthy appearing General Appearance: cooperative; Negative for combative or lethargic Orientation / Consciousness: awake Exam Limitations: no limitations HEENT Head and Scalp: normocephalic and atraumatic Eyes EOMs intact bilaterally General Eye: normal appearance of both eyes Neck full ROM General: trachea midline Resp normal respiratory effort and no use of accessory muscles Effort and Inspection: Negative for labored, stridor or audible wheezes Cardio regular rate and regular rhythm Peripheral Pulses: femoral pulses present; Negative for posterior tibial pulses present or dorsalis pedis pulses present Back/Spine Cervical Spine: cervical ROM normal Extremity full ROM, normal capillary refill and no clubbing, cyanosis or edema Skin no rashes or lesions noted and no wounds Neuro oriented x3, CN's II-XII intact bilaterally, no focal motor deficits and no sensory deficits noted Psych thought process normal, cooperative, affect normal, speech normal and activity/motor behavior normal Lab / Micro Data 08/28/24 05:55 08/28/24 05:55 Labs: Laboratory Results - last 24 hr 08/27/24 13:22: Urine Color Yellow, Urine Clarity Clear, Urine pH 7.0, Ur Specific [place] 1.010, Urine Protein 30 H, Urine Glucose (UA) Normal, Urine Ketones Negative, Urine Occult Blood Negative, Urine Nitrite Negative, Urine Bilirubin Negative, Urine Urobilinogen Normal, Ur Leukocyte Esterase Negative, Urine RBC 0 SEEN, Urine WBC 0 SEEN, Ur Squamous Epith Cells 0-5 SEEN, Urine Bacteria 0 SEEN, Urine Mucus 0 SEEN 08/27/24 13:30: Lactic Acid 2.3 H* 08/27/24 16:35: POC Glucose 96 08/27/24 20:12: POC Glucose 183 H 08/28/24 05:55: WBC 7.9, RBC 3.36 L, Hgb 10.0 L, Hct 30.3 L, MCV 90.2, MCH 29.8, MCHC 33.0, RDW Std Deviation 43.3, RDW Coeff of [place] 13.2, Plt Count 315, MPV 9.8, Immature Gran % (Auto) 0.100, Neut % (Auto) 64.5, Lymph % (Auto) 20.9, [place] % (Auto) 9.8, Eos % (Auto) 3.8, Baso % (Auto) 0.9, Absolute Neuts (auto) 5.1, Absolute Lymphs (auto) 1.65, Nucleated RBC % 0, Sodium 133, Potassium 4.4, Chloride 101, Carbon Dioxide 21.7, Anion Gap 11, BUN 25 H, Creatinine 0.74, Estim Creat Clear Calc 42.51 L, Est GFR (MDRD) Non-Af 77, BUN/Creatinine Ratio 33.1 H, Glucose 119 H, Hemoglobin A1c 6.8, Calcium 8.6, Phosphorus 3.2, Magnesium 2.0 08/28/24 06:48: POC Glucose 149 H 08/28/24 11:08: POC Glucose 216 H Micro: Microbiology 08/27/24 11:35 Wound - Other Skin and Soft Tissue MRSA/MSSA (PCR - Final
[2024-08-28 16:52] LABS: Bedside Glucose 138 mg/dL (74-106)
[2024-08-28 22:31] LABS: Bedside Glucose 169 mg/dL (74-106)
[2024-08-29] VITALS (10 sets, daily range): BP systolic 153–187; BP diastolic 49–66; PULSE 60–72; RESP 14–18; TEMP 36.4–36.8; O2SAT 95–100
[2024-08-29] MEDS: Ampicillin/Sulbactam 3 GM in 0.9% Normal Saline (100mL MB+) 100 ML IV ×5 (00:40→23:13)
[2024-08-29 04:54] LABS: Absolute Lymphocyte Count 2.16 X10^3/uL (0.83-4.51); Absolute Neutrophil Count 4.1 X10^3/uL (2.0-7.7); Basophil# 0.07 X10^3/uL; Basophil% 0.9 % (0-1); Eosinophil# 0.33 X10^3/uL; Eosinophils% 4.5 % (0-5); Hematocrit 36.7 % (37-47); Hemoglobin 11.9 g/dL (12.0-15.0); Lymphocyte # 2.16 X10^3/ul (0.83-4.51); Lymphocyte % 29.2 % (19-41); Mean Corp Hgb Conc 32.4 g/dL (32-36); Mean Corpuscular Volume 89.5 fL (81-99); Mean Platelet Vol. 9.4 fl (6.2-12.0); Monocyte# 0.75 X10^3/uL; Monocyte% 10.1 % (0-10); NRBC Flagged by Analyzer 0 % (0-5); Neutrophil # 4.06 X10^3/uL (2.7-7.7); Platelet Count 336 K/mm3 (150-450); RBC Distribution Width CV 13.2 % (11.6-14.6); RBC Distribution Width SD 43.2 fl (35.1-43.9); White Blood Count 7.4 K/mm3 (4.4-11.0)
[2024-08-29 05:43] LABS: Anion Gap 11 (5-15); BUN 20 mg/dL (4-19); BUN/Creat Ratio 26.9 RATIO (10-20); Calcium,Total 9.3 mg/dL (7.6-11.0); Carbon Dioxide 25.1 mmol/L (21.0-32.0); Chloride 102 mmol/L (98-108); Creatinine, Serum 0.75 mg/dL (0.70-1.20); EST Glomerular Filtration Rate 77 (>60); Glucose 119 mg/dL (70-99); Potassium 4.2 mmol/L (3.3-5.1); Sodium Level 138 mmol/L (133-145)
[2024-08-29] MEDS: Metoprolol Tartrate 25 MG Tablet PO ×3 (06:01→21:32)
[2024-08-29] MEDS: Acetaminophen 500 MG Tablet 1000 MG PO ×3 (06:03→21:32)
[2024-08-29 06:44] LABS: Bedside Glucose 123 mg/dL (74-106)
--- NOTE | 2024-08-29 08:18 | PN.HOSP_ITS ---
Reason for Visit Reason for Visit: Diagnoses Atherosclerosis of [place] arteries of extremities with gangrene, right leg (08/27/24) Peripheral vascular disease, unspecified (08/27/24) Cellulitis of right lower limb (08/27/24) Osteomyelitis, unspecified (08/27/24) Subjective Subjective Patient denies any chest pain or shortness of breath, has no new or acute complaints Objective Data Objective Data Vital Signs: Vital Signs Temp Pulse Resp BP Pulse Ox O2 Del Method 97.8 F 72 14 187/65 H 100 Room Air 08/29/24 05:49 08/29/24 06:01 08/29/24 05:49 08/29/24 06:01 08/29/24 05:49 08/29/24 05:49 Oxygen Delivery Method Room Air Weight: 54.6 kg Body Mass Index (BMI) 20.0 Intake & Output: Intake and Output for Last 24 Hours 08/27/24 08/28/24 08/29/24 23:59 23:59 23:59 Intake Total 1764 1113 / 1513 762 / 762 Balance 1764 1113 / 1513 762 / 762 Lab / Micro Data 08/29/24 04:25 08/29/24 04:25 Labs: Laboratory Results - last 24 hr 08/28/24 05:55: Hemoglobin A1c 6.8 08/28/24 11:08: POC Glucose 216 H 08/28/24 16:32: POC Glucose 138 H 08/28/24 21:02: POC Glucose 169 H 08/29/24 04:25: WBC 7.4, RBC 4.10 L, Hgb 11.9 L, Hct 36.7 L, MCV 89.5, MCH 29.0, MCHC 32.4, RDW Std Deviation 43.2, RDW Coeff of Kathy 13.2, Plt Count 336, MPV 9.4, Immature Gran % (Auto) 0.300, Neut % (Auto) 55.0, Lymph % (Auto) 29.2, [place] % (Auto) 10.1 H, Eos % (Auto) 4.5, Baso % (Auto) 0.9, Absolute Neuts (auto) 4.1, Absolute Lymphs (auto) 2.16, Nucleated RBC % 0, Sodium 138, Potassium 4.2, Chloride 102, Carbon Dioxide 25.1, Anion Gap 11, BUN 20 H, Creatinine 0.75, E stim Creat Clear Calc 41.90 L, Est GFR (MDRD) Non-Af 77, BUN/Creatinine Ratio 26.9 H, Glucose 119 H, Calcium 9.3 08/29/24 05:52: POC Glucose 123 H Micro: Microbiology 08/27/24 11:35 Wound - Other Skin and Soft Tissue MRSA/MSSA (PCR - Final Physical Exam Narrative General: Alert, oriented, no apparent distress HEENT: Atraumatic, normocephalic Eyes: Anicteric, normal conjunctiva, extraocular movements grossly intact Neck: Supple Respiratory: No significant wheezes or rhonchi, normal respiratory effort Cardiovascular: Regular rate and rhythm GI: Soft, nontender, nondistended Extremities: No edema Musculoskeletal: Moving all extremities Neuro: No overt focal neurological deficits Skin: No rashes appreciated, right foot/toe presently covered Psych: Cooperative Assessment & Plan Assessment/Plan (1) Cellulitis of foot, right: (2) Peripheral vascular disease: (3) Osteomyelitis of great toe of right foot: PLAN: Plan # Diabetic foot infection with right first toe osteomyelitis - Imaging obtained on admission consistent with osteomyelitis of right first toe - Patient on Unasyn - Podiatry, ID, vascular surgery consulted - Wound cultures obtained on admission positive for Staph aureus - Podiatry evaluating for possible right hallux amputation, likely tomorrow versus Thursday depending on or availability, podiatry note reviewed - Patient weightbearing to right heel, walker and surgical shoe # Peripheral arterial disease - Evaluated by vascular surgery - Patient is scheduled for tibial bypass 09/05 along with toe amputation - Pending OR availability bypass may be moved up - Appreciate vascular surgery recommendations - Patient on aspirin and Plavix # Coronary artery disease - With previous PCI in 2017 and 2011 - Patient on aspirin and Plavix as well as beta-zahida - Patient not on statin due to myalgias with multiple agents #Type 2 diabetes mellitus -Glucose checks and sliding scale insulin #Hypertension - Patient on metoprolol and amlodipine - Patient has remained elevated with an a.m. systolic blood pressure of 187 on 08/29 - Will add lisinopril #DVT ppx: Lovenox subcu Arely Marks MD Charges/Coding Visit Charges Inpatient E&M: 21830 Subs Hosp L2
[2024-08-29] MEDS: Enoxaparin 40 MG/0.4 ML Syringe SC (09:01)
[2024-08-29] MEDS: Clopidogrel Bisulfate 75 MG Tablet PO (09:01)
[2024-08-29] MEDS: Aspirin E.C. 81 MG Tablet PO (09:01)
[2024-08-29] MEDS: amLODIPine 10 MG Tablet PO (09:01)
[2024-08-29] MEDS: Lisinopril 5 MG Tablet PO (09:01)
--- NOTE | 2024-08-29 10:23 | PN_ITS ---
Subjective Subjective No changes overnight Objective Data Objective Data Vital Signs: Vital Signs Temp Pulse Resp BP Pulse Ox O2 Del Method 98.2 F 60 18 160/55 H 100 Room Air 08/29/24 08:55 08/29/24 08:55 08/29/24 08:55 08/29/24 08:55 08/29/24 08:55 08/29/24 09:10 Oxygen Delivery Method Room Air Weight: 54.6 kg Body Mass Index (BMI) 20.0 Intake & Output: Intake and Output for Last 24 Hours 08/27/24 08/28/24 08/29/24 23:59 23:59 23:59 Intake Total 1764 1113 / 1513 874 / 874 Balance 1764 1113 / 1513 874 / 874 Lab / Micro Data 08/29/24 04:25 08/29/24 04:25 Labs: Laboratory Results - last 24 hr 08/28/24 11:08: POC Glucose 216 H 08/28/24 16:32: POC Glucose 138 H 08/28/24 21:02: POC Glucose 169 H 08/29/24 04:25: WBC 7.4, RBC 4.10 L, Hgb 11.9 L, Hct 36.7 L, MCV 89.5, MCH 29.0, MCHC 32.4, RDW Std Deviation 43.2, RDW Coeff of Kathy 13.2, Plt Count 336, MPV 9.4, Immature Gran % (Auto) 0.300, Neut % (Auto) 55.0, Lymph % (Auto) 29.2, [place] % (Auto) 10.1 H, Eos % (Auto) 4.5, Baso % (Auto) 0.9, Absolute Neuts (auto) 4.1, Absolute Lymphs (auto) 2.16, Nucleated RBC % 0, Sodium 138, Potassium 4.2, Chloride 102, Carbon Dioxide 25.1, Anion Gap 11, BUN 20 H, Creatinine 0.75, E stim Creat Clear Calc 41.90 L, Est GFR (MDRD) Non-Af 77, BUN/Creatinine Ratio 26.9 H, Glucose 119 H, Calcium 9.3 08/29/24 05:52: POC Glucose 123 H Micro: Microbiology 08/27/24 11:35 Wound - Other Skin and Soft Tissue MRSA/MSSA (PCR - Final Physical Exam Narrative Patient AOx3. Vascular: Diminished pulses right lower extremity. Atrophic skin changes with skin thinning absence of digital hair growth. Ischemic ulceration noted to the right hallux. New area of ischemia to the right lateral fifth metatarsal head. Neurologic: Light touch protective diminished intact bilateral feet. Musculoskeletal: Absent fifth ray left lateral foot. No sign DVT bilaterally. Dermatologic: Full-thickness ulceration noted to the right hallux wound bed with exposed distal phalanx and periwound necrosis as well as fibrotic tissue building up in the interim phalangeal joint space. No acute purulent drainage malodor erythema edema warmth noted at this time. Focal area of ischemic changes noted to the right lateral fifth metatarsal head. Assessment & Plan Assessment/Plan (1) Osteomyelitis of great toe of right foot: PLAN: Exam performed will plan for right hallux amputation this week discussed possibility for non-healing and need for more proximal amputation due to poor arterial status. will plan for infection clearing amputation tomorrow vs thursday pending OR availability vascular planning bypass later this week vs thursday Wound care on board will follow up closely (2) Type 2 diabetes mellitus with foot ulcer: QUALIFIERS: Diabetes mellitus shelter insulin use: with termite control representative use Qualified Code(s): E11.621 - Type 2 diabetes mellitus with foot ulcer; L97.509 - Non-pressure chronic ulcer of other part of unspecified foot with unspecified severity; Z79.4 - termite exterminator (current) use of insulin
--- NOTE | 2024-08-29 11:03 | WOUNDNOTE ---
wound photo: right foot
--- NOTE | 2024-08-29 11:04 | WOUNDNOTE ---
wound photo: right lateral foot
[2024-08-29] MEDS: Polyethylene Glycol 3350 17 GM PACKET PO (11:23)
[2024-08-29] MEDS: Glucerna Shake 120 ML LIQUID PO ×2 (11:28→17:13)
[2024-08-29 11:46] LABS: Bedside Glucose 152 mg/dL (74-106)
[2024-08-29 12:53] LABS: Vancomycin, Trough Level 6.5 ug/mL (5.0-15.0)
--- NOTE | 2024-08-29 13:07 | PCM.RX.CS ---
Consult Antibiotic Management Pharmacy has been consulted to manage selected antibiotic: Vancomycin Type of Intervention Type of Consult: Follow-up Suspected Infection Suspected Infection: Skin/Soft tissue and Osteomyelitis Prior Doses of Antibiotics Prior Doses of Antibiotics Received/Current Regimen: Vancomycin 750 mg Q24H last dose given 08/28/24 @ 1231 Labs Labs: Sodium 138 mmol/L (133-145) 08/29/24 04:25 Potassium 4.2 mmol/L (3.3-5.1) 08/29/24 04:25 Chloride 102 mmol/L (98-108) 08/29/24 04:25 Carbon Dioxide 25.1 mmol/L (21.0-32.0) 08/29/24 04:25 Anion Gap 11 (5-15) 08/29/24 04:25 BUN 20 mg/dL (4-19) H 08/29/24 04:25 Creatinine 0.75 mg/dL (0.70-1.20) 08/29/24 04:25 Est GFR (MDRD) Non-Af 77 (>60) 08/29/24 04:25 BUN/Creatinine Ratio 26.9 RATIO (10-20) H 08/29/24 04:25 Glucose 119 mg/dL (70-99) H 08/29/24 04:25 Vancomycin Trough 6.5 ug/mL (5.0-15.0) 08/29/24 11:41 Microbiology Microbiology: Microbiology 08/27/24 11:35 Wound - Other Skin and Soft Tissue MRSA/MSSA (PCR - Final Dosing Weight Weight used for dosin kg Estimated Creatinine Clearance Estimated Creatinine Clearance: ~ 42 Goal Trough Goal Trough: 15-20 mcg/mL Pharmacy Plan for Drug Dosing Pharmacy Plan for Drug Dosing: Vancomycin trough = 6.5, increase to 750 mg Q12H Pharmacy Service will continue to monitor and adjust dosing as required. Follow-Up Labs Follow-Up Labs: Trough: Vancomycin Date/Time Labs Ordered Labs to be done on [date and time ordered]: 08/31/24 @ 0030
--- NOTE | 2024-08-29 13:51 | CASEMGMT ---
IKE MCKEON Assessment Face to Face with patient for initial transition planning/care coordination assessment. IKE MCKEON introduced self and role at [facility], pt voices understanding. Pt is A&Ox4 and is resting comfortably in bed and is calm. Care providers, pharmacy, and demographics verified. Admitting dx: Right Femoral Endarterectomy, Femoral Tibial Bypass LACE Strata: 3 PCP: Mc Marks Specialists: SAMUEL(Cardio). ID, Podiatry, and Vascular are currently consulted Preferred Pharmacy: [facility] Insurance: [employer] [facility] Prescription Benefit: Yes LNOK: Alejandra Reyes (Daughter), Jessie Maza (Daughter) Living Arrangements: Pt lives with her daughter, Jessie, in a single story home with 3 steps to enter ADLs/IADLs: Reports independent @ baseline. Reports that her daughter is able to help as needed Transportation: Pt states that she has not been driving lately. Pt family including her daughters, MAY, son, and GS are able to drive her. DME: Functioning B[employer] with sufficient supplies. Shower chair. Raised toilet seat. Cane. FWW. grab bars. W/C. HHC/SNF: Pt reports that she is active with [facility]. States history at [facility] and [facility]. Pt?s goal: TBD Plan: TBD. Per chart review, amputation tomorrow vs Thursday. At this time, the pt states that it is too early to tell what she will need or want at the time of DC. CM to follow. Pt denies further questions or concerns at this time. Report given to SYDNEE RAMIRES CM. Erick Bojorquez RN, CM
[2024-08-29] MEDS: Vancomycin HCl 750 MG in 0.9% Normal Saline (250mL Bag) 250 ML 250 MG IV (14:12)
[2024-08-29] MEDS: 0.9% Saline Lock 10 ML Syringe IV (14:12)
--- NOTE | 2024-08-29 14:46 | CASEMGMT ---
Discharge Planning Per Cristy, pt is active with SN. Nikkie Sanches DC Planning Asst.
--- NOTE | 2024-08-29 14:47 | PCM.CONS.GEN ---
Assessment & Plan Assessment/Plan (1) Osteomyelitis of great toe of right foot: PLAN: Cont vanc/unasyn, podiatry and vascular following. OR planned. Will follow, thank you (2) Other specified peripheral vascular diseases: HPI Consult Data Date of Consult: 08/29/24 HPI Narrative Reason for Consultation: osteo HPI Narrative: GENTRY COBB, is a 88 F with h/o PAD, DM, presented with several days worsening R 1st toe pain. Pain was much worse over night of 08/26, lasted the whole time. Has chronic wound. No fever, no drainage. Came to ED, admitted 08/27 on vanc/unasyn. Seen by podiatry and vascular. Feeling better. Full ROS performed and neg except as noted above. 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 Non-ST elevation CO (NSTEMI) Diabetic foot infection Syncope Sepsis Aftercare following surgery of the circulatory system TIA (transient ischemic attack) Stroke/cerebrovascular accident Carotid stenosis Wears eyeglasses Depression Anxiety Hx of syncope Dietary restriction Hx of heartburn Hx of shortness of breath Hx of edema Hx of echocardiogram Hx of cardiovascular stress test Preoperative cardiovascular examination Carotid stenosis Ulcer of left foot with bone involvement without evidence of necrosis Non-pressure chronic ulcer of other part of left foot with necrosis of bone Wears dentures Ambulates with cane Arthritis Easy bruising Prolapsed bladder Former smoker Cardiology follow-up encounter Cellulitis of left thigh Syncope Hematoma of frontal scalp Post-op pain Ischaemic rest pain of lower extremity Open wound of left foot Cellulitis of left foot 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 without evidence of necrosis Cellulitis of left toe Amputated toe GI bleed Non-pressure chronic ulcer of other part of left foot with fat layer exposed Rectocele Cystocele Presence of stent in coronary artery (~07/04/11) Essential hypertension RBBB (right bundle branch block) Atherosclerotic heart disease of [place] coronary artery without angina pectoris Incomplete prolapse of vaginal vault HTN (hypertension) Osteoarthritis Diabetes Hyperlipidemia Carotid stenosis, bilateral BBB (bundle branch block) PAD (peripheral artery disease) Home Medications ?Medication ?Instructions ?Recorded ?Last Taken ?Type clopidogrel 75 mg tablet 75 mg PO DAILY platelet inhibitor 06/07/16 08/27/24 History multivitamin 1 tab PO DAILY SUPPLEMENT 04/28/19 08/27/24 History lisinopril 20 mg tablet 20 mg PO BID BP 01/01/21 08/27/24 History metoprolol tartrate 25 mg tablet 25 mg PO TID BP 01/01/21 08/27/24 History metformin 500 mg tablet,extended 500 mg PO BID DM 07/01/21 08/27/24 History release 24 hr amlodipine 10 mg tablet 10 mg PO DAILY bp 11/12/23 08/27/24 History aspirin 81 mg tablet,delayed 81 mg PO DAILY@0800 Heart Health 05/16/24 08/27/24 Rx release #0 tabs nitroglycerin 0.4 mg sublingual 0.4 mg sublingual Q5-15M PRN chest 07/27/24 Unknown Rx tablet pain #25 tabs acetaminophen 325 mg tablet 650 mg PO Q6H PRN PRN fever 08/27/24 Unknown History doxycycline hyclate 100 mg tablet 100 mg PO BID 08/27/24 08/27/24 History Allergy/AdvReac Type Severity Reaction Status Date / Time pravastatin AdvReac Severe myalgias Verified 08/27/24 08:55 [id number] Reductase AdvReac Severe myalgias Verified 08/27/24 08:55 Inhibitor Sulfa (Sulfonamide AdvReac Mild stomach Verified 08/27/24 08:55 Antibiotics) upset atorvastatin AdvReac myalgias Verified 08/27/24 08:55 Family History Father Diabetes Heart disease Brother Diabetes Colon cancer Brother Diabetes Surgical History History of cardiac catheterization Hx of toe surgery Hx of toe surgery S/P bladder repair History of colonoscopy History of tonsillectomy Cataract extraction status of right eye Presence of coronary angioplasty implant and graft (~05/11/24) History of hemorrhoidectomy History of hysterectomy History of left-sided carotid endarterectomy Status post peripheral artery angioplasty History of heart artery stent Social History Smoking Status: Former smoker how long ago did patient quit smokin + years ago alcohol intake: current alcohol intake frequency: a few times a month Alcohol type: wine substance use type: does not use caffeine: Yes Type: coffee Number of servings: 2 what type of physical activity do you participate in: walking seatbelt use: always do you feel safe at home: Yes Physical Exam Const alert and no apparent distress General Appearance: cooperative HEENT normocephalic and head/scalp atraumatic Eyes PERRL and EOMs intact bilaterally Neck supple and No nodes Resp normal air movement and clear to auscultation bilaterally Cardio regular rate and regular rhythm GI soft to palpation, non-tender and non-distended Extremity General Extremity: edema Skin Skin Narrative: reviewed wound photos Neuro CN's II-XII intact bilaterally Lab / Micro Data Attestation: I reviewed the patient's lab results. 08/29/24 04:25 08/29/24 04:25 Labs: Laboratory Results - last 24 hr 08/28/24 16:32: POC Glucose 138 H 08/28/24 21:02: POC Glucose 169 H 08/29/24 04:25: WBC 7.4, RBC 4.10 L, Hgb 11.9 L, Hct 36.7 L, MCV 89.5, MCH 29.0, MCHC 32.4, RDW Std Deviation 43.2, RDW Coeff of Kathy 13.2, Plt Count 336, MPV 9.4, Immature Gran % (Auto) 0.300, Neut % (Auto) 55.0, Lymph % (Auto) 29.2, [place] % (Auto) 10.1 H, Eos % (Auto) 4.5, Baso % (Auto) 0.9, Absolute Neuts (auto) 4.1, Absolute Lymphs (auto) 2.16, Nucleated RBC % 0, Sodium 138, Potassium 4.2, Chloride 102, Carbon Dioxide 25.1, Anion Gap 11, BUN 20 H, Creatinine 0.75, Estim Creat Clear Calc 41.90 L, Est GFR (MDRD) Non-Af 77, BUN/Creatinine Ratio 26.9 H, Glucose 119 H, Calcium 9.3 08/29/24 05:52: POC Glucose 123 H 08/29/24 11:22: POC Glucose 152 H 08/29/24 11:41: Vancomycin Trough 6.5
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
[2024-08-29 16:43] LABS: Bedside Glucose 151 mg/dL (74-106)
[2024-08-29 21:54] LABS: Bedside Glucose 125 mg/dL (74-106)
[2024-08-29 22:29] LABS: Lactic Acid 3.4 mmol/L (0.0-2.0)
[2024-08-29] MEDS: hydrALAZINE 20 MG/ML Vial 10 MG IV (23:40)
[2024-08-30] VITALS (12 sets, daily range): BP systolic 130–170; BP diastolic 41–56; PULSE 60–69; RESP 16; TEMP 36.4–37.1; O2SAT 96–98
[2024-08-30] MEDS: Vancomycin HCl 750 MG in 0.9% Normal Saline (250mL Bag) 250 ML 250 MG IV ×2 (00:37→15:01)
[2024-08-30 05:00] LABS: Absolute Lymphocyte Count 2.03 X10^3/uL (0.83-4.51); Absolute Neutrophil Count 3.4 X10^3/uL (2.0-7.7); Basophil# 0.05 X10^3/uL; Basophil% 0.8 % (0-1); Eosinophil# 0.31 X10^3/uL; Eosinophils% 4.8 % (0-5); Hematocrit 31.4 % (37-47); Hemoglobin 10.3 g/dL (12.0-15.0); Lymphocyte # 2.03 X10^3/ul (0.83-4.51); Lymphocyte % 31.2 % (19-41); Mean Corp Hgb Conc 32.8 g/dL (32-36); Mean Corpuscular Hgb 28.8 pg (27.0-32.0); Mean Corpuscular Volume 87.7 fL (81-99); Mean Platelet Vol. 9.7 fl (6.2-12.0); Monocyte# 0.71 X10^3/uL; Monocyte% 10.9 % (0-10); NRBC Flagged by Analyzer 0 % (0-5); Neutrophil # 3.39 X10^3/uL (2.7-7.7); Platelet Count 323 K/mm3 (150-450); RBC Distribution Width CV 13.2 % (11.6-14.6); RBC Distribution Width SD 42.6 fl (35.1-43.9); Red Blood Count 3.58 M/mm3 (4.2-5.4); White Blood Count 6.5 K/mm3 (4.4-11.0)
[2024-08-30] MEDS: Acetaminophen 500 MG Tablet 1000 MG PO ×3 (05:01→22:31)
[2024-08-30] MEDS: Metoprolol Tartrate 25 MG Tablet PO ×3 (05:01→22:32)
[2024-08-30] MEDS: Ampicillin/Sulbactam 3 GM in 0.9% Normal Saline (100mL MB+) 100 ML IV ×4 (05:02→23:58)
[2024-08-30] MEDS: Polyethylene Glycol 3350 17 GM PACKET PO (05:02)
[2024-08-30 05:28] LABS: Anion Gap 11 (5-15); BUN 27 mg/dL (4-19); BUN/Creat Ratio 40.4 RATIO (10-20); Calcium,Total 8.7 mg/dL (7.6-11.0); Carbon Dioxide 22.5 mmol/L (21.0-32.0); Chloride 103 mmol/L (98-108); Creatinine, Serum 0.68 mg/dL (0.70-1.20); EST Glomerular Filtration Rate 84 (>60); Glucose 136 mg/dL (70-99); Potassium 4.2 mmol/L (3.3-5.1); Sodium Level 136 mmol/L (133-145)
[2024-08-30] MEDS: Insulin Lispro 100 UNIT/ML INSULN.PEN SC (06:32)
[2024-08-30 06:57] LABS: Bedside Glucose 173 mg/dL (74-106)
--- NOTE | 2024-08-30 07:29 | PCM.PN.HOSP ---
Reason for Visit Reason for Visit: Diagnoses Type 2 diabetes mellitus with foot ulcer (08/27/24) Atherosclerosis of [place] arteries of extremities with gangrene, right leg (08/27/24) Other specified peripheral vascular diseases (08/27/24) Peripheral vascular disease, unspecified (08/27/24) Cellulitis of right lower limb (08/27/24) Non-pressure chronic ulcer of other part of unspecified foot with unspecified severity (08/27/24) Osteomyelitis, unspecified (08/27/24) half-way (current) use of insulin (08/27/24) Subjective Subjective Patient overall feeling fair today, does not like glucose checks but understands the utility of this, no other new or acute complaints Objective Data Objective Data Vital Signs: Vital Signs Temp Pulse Resp BP Pulse Ox O2 Del Method 97.7 F L 66 16 170/50 H 97 Room Air 08/30/24 04:44 08/30/24 05:01 08/30/24 04:44 08/30/24 04:44 08/30/24 04:44 08/30/24 04:44 Oxygen Delivery Method Room Air Weight: 54.6 kg Body Mass Index (BMI) 20.0 Intake & Output: Intake and Output for Last 24 Hours 08/28/24 08/29/24 08/30/24 23:59 23:59 23:59 Intake Total 1113 / 1513 1761.25 / 1761.25 527 / 527 Balance 1113 / 1513 1761.25 / 1761.25 527 / 527 Lab / Micro Data 08/30/24 04:44 08/30/24 04:44 Labs: Laboratory Results - last 24 hr 08/27/24 09:31: Lactic Acid 3.4 H* 08/29/24 11:22: POC Glucose 152 H 08/29/24 11:41: Vancomycin Trough 6.5 08/29/24 16:08: POC Glucose 151 H 08/29/24 21:35: POC Glucose 125 H 08/30/24 04:44: WBC 6.5, RBC 3.58 L, Hgb 10.3 L, Hct 31.4 L, MCV 87.7, MCH 28.8, MCHC 32.8, RDW Std Deviation 42.6, RDW Coeff of Kathy 13.2, Plt Count 323, MPV 9.7, Immature Gran % (Auto) 0.300, Neut % (Auto) 52.0, Lymph % (Auto) 31.2, [place] % (Auto) 10.9 H, Eos % (Auto) 4.8, Baso % (Auto) 0.8, Absolute Neuts (auto) 3.4, Absolute Lymphs (auto) 2.03, Nucleated RBC % 0, Sodium 136, Potassium 4.2, Chloride 103, Carbon Dioxide 22.5, Anion Gap 11, BUN 27 H, Creatinine 0.68 L, Estim Creat Clear Calc 41.90 L, Est GFR (MDRD) Non-Af 84, BUN/Creatinine Ratio 40.4 H, Glucose 136 H, Calcium 8.7 08/30/24 06:31: POC Glucose 173 H Micro: Microbiology 08/27/24 11:35 Wound - Other Skin and Soft Tissue MRSA/MSSA (PCR - Final Physical Exam Narrative General: Alert, oriented, no apparent distress HEENT: Atraumatic, normocephalic Eyes: extraocular movements grossly intact Neck: Supple Respiratory: normal respiratory effort Cardiovascular: no edema appreciated GI: nondistended Extremities: Moving all extremities, right lower extremity is in boot/wrapped Neuro: No overt focal neurological deficits Psych: Cooperative Assessment & Plan Assessment/Plan (1) Cellulitis of foot, right: (2) Peripheral vascular disease: (3) Osteomyelitis of great toe of right foot: PLAN: Plan # Diabetic foot infection with right first toe osteomyelitis - Imaging obtained on admission consistent with osteomyelitis of right first toe - Patient on Unasyn - Podiatry, ID, vascular surgery consulted - Wound cultures obtained on admission positive for Staph aureus - Podiatry evaluating for possible right hallux amputation, likely tomorrow versus Thursday depending on or availability, podiatry note reviewed - Patient weightbearing to right heel, walker and surgical shoe -08/30: Plan for right hallux amputation this week # Peripheral arterial disease - Evaluated by vascular surgery - Patient is scheduled for tibial bypass 09/05 along with toe amputation - Pending OR availability bypass may be moved up - Appreciate vascular surgery recommendations - Patient on aspirin and Plavix -08/30: Discussed with vascular surgery, bypass will be planned for Thursday #Hypertension - Patient on metoprolol and amlodipine - Patient has remained elevated with an a.m. systolic blood pressure of 187 on 4/7 - Will add lisinopril -08/30: Remains hypertensive, lisinopril increased Chronic medical problems and/or problems not being actively addressed during today's encounter: # Coronary artery disease - With previous PCI in 2018 and 2011 - Patient on aspirin and Plavix as well as beta-zahida - Patient not on statin due to myalgias with multiple agents #Type 2 diabetes mellitus -Glucose checks and sliding scale insulin #DVT ppx: Lovenox subcu Arely Marks MD Time spent in the patient's overall evaluation,decision-making process, review of diagnostic data, adjustment of management, discussion with other providers, nursing nursing and ancillary staff involved in patient's care documentation, 37 Minutes Charges/Coding Visit Charges Inpatient E&M: 79008 Subs Hosp L2
--- NOTE | 2024-08-30 10:01 | PCM.PN.SRG ---
Subjective Subjective I saw Sofia sitting up to the bedside chair this morning. She was concerned that she has been receiving insulin while admitted but otherwise did not voice any other complaints. We discussed the procedure planned for Thursday; she had some questions about the geiger catheter that would be placed during surgery which were addressed, otherwise had no concerns about this. She just had her wound dressings changed earlier this morning. Objective Data Objective Data Vital Signs: Vital Signs Temp Pulse Resp BP Pulse Ox O2 Del Method 98 F 60 16 130/45 H 98 Room Air 08/30/24 09:30 08/30/24 09:30 08/30/24 09:30 08/30/24 09:30 08/30/24 09:30 08/30/24 09:30 Oxygen Delivery Method Room Air Weight: 120 lb 5.958 oz Body Mass Index (BMI) 20.0 Intake & Output: Intake and Output for Last 24 Hours 08/28/24 08/29/24 08/30/24 23:59 23:59 23:59 Intake Total 1113 / 1513 1761.25 / 1761.25 527 / 527 Balance 1113 / 1513 1761.25 / 1761.25 527 / 527 Lab / Micro Data 08/30/24 04:44 08/30/24 04:44 Labs: Laboratory Results - last 24 hr 08/27/24 09:31: Lactic Acid 3.4 H* 08/29/24 11:22: POC Glucose 152 H 08/29/24 11:41: Vancomycin Trough 6.5 08/29/24 16:08: POC Glucose 151 H 08/29/24 21:35: POC Glucose 125 H 08/30/24 04:44: WBC 6.5, RBC 3.58 L, Hgb 10.3 L, Hct 31.4 L, MCV 87.7, MCH 28.8, MCHC 32.8, RDW Std Deviation 42.6, RDW Coeff of Kathy 13.2, Plt Count 323, MPV 9.7, Immature Gran % (Auto) 0.300, Neut % (Auto) 52.0, Lymph % (Auto) 31.2, [place] % (Auto) 10.9 H, Eos % (Auto) 4.8, Baso % (Auto) 0.8, Absolute Neuts (auto) 3.4, Absolute Lymphs (auto) 2.03, Nucleated RBC % 0, Sodium 136, Potassium 4.2, Chloride 103, Carbon Dioxide 22.5, Anion Gap 11, BUN 27 H, Creatinine 0.68 L, Estim Creat Clear Calc 41.90 L, Est GFR (MDRD) Non-Af 84, BUN/Creatinine Ratio 40.4 H, Glucose 136 H, Calcium 8.7 08/30/24 06:31: POC Glucose 173 H Micro: Microbiology 08/27/24 11:35 Wound - Other Skin and Soft Tissue MRSA/MSSA (PCR - Final Physical Exam Const oriented x3 and no apparent distress Resp normal respiratory effort Cardio regular rate and regular rhythm Extremity Extremity Narrative: R foot with dressings/RAY wrap in place, C/D/I Assessment & Plan Assessment/Plan (1) Atherosclerosis of [place] arteries of extremities with gangrene, right leg: PLAN: Plan remains for femoral-tibial bypass with possible iliac stenting as scheduled 09/05. Podiatry intervention is scheduled for 09/01 to address infection. Charges/Coding Visit Charges Inpatient E&M: 96243 Subs Hosp L1
[2024-08-30] MEDS: Clopidogrel Bisulfate 75 MG Tablet PO (10:29)
[2024-08-30] MEDS: Glucerna Shake 120 ML LIQUID PO (10:32)
[2024-08-30] MEDS: Aspirin E.C. 81 MG Tablet PO (10:33)
[2024-08-30] MEDS: amLODIPine 10 MG Tablet PO (10:33)
[2024-08-30] MEDS: Lisinopril 10 MG Tablet PO (10:36)
[2024-08-30] MEDS: Enoxaparin 40 MG/0.4 ML Syringe SC (10:37)
[2024-08-30 11:00] LABS: Bedside Glucose 137 mg/dL (74-106)
--- NOTE | 2024-08-30 11:23 | PCM.PROGNOTE ---
Subjective Subjective No changes overnight denies constitutionals pain controlled Objective Data Objective Data Vital Signs: Vital Signs Temp Pulse Resp BP Pulse Ox O2 Del Method 98 F 60 16 130/45 H 98 Room Air 08/30/24 09:30 08/30/24 09:30 08/30/24 09:30 08/30/24 09:30 08/30/24 09:30 08/30/24 09:30 Oxygen Delivery Method Room Air Weight: 54.6 kg Body Mass Index (BMI) 20.0 Intake & Output: Intake and Output for Last 24 Hours 08/28/24 08/29/24 08/30/24 23:59 23:59 23:59 Intake Total 1113 / 1513 1761.25 / 1761.25 527 / 527 Balance 1113 / 1513 1761.25 / 1761.25 527 / 527 Lab / Micro Data 08/30/24 04:44 08/30/24 04:44 Labs: Laboratory Results - last 24 hr 08/27/24 09:31: Lactic Acid 3.4 H* 08/29/24 11:22: POC Glucose 152 H 08/29/24 11:41: Vancomycin Trough 6.5 08/29/24 16:08: POC Glucose 151 H 08/29/24 21:35: POC Glucose 125 H 08/30/24 04:44: WBC 6.5, RBC 3.58 L, Hgb 10.3 L, Hct 31.4 L, MCV 87.7, MCH 28.8, MCHC 32.8, RDW Std Deviation 42.6, RDW Coeff of Kathy 13.2, Plt Count 323, MPV 9.7, Immature Gran % (Auto) 0.300, Neut % (Auto) 52.0, Lymph % (Auto) 31.2, [place] % (Auto) 10.9 H, Eos % (Auto) 4.8, Baso % (Auto) 0.8, Absolute Neuts (auto) 3.4, Absolute Lymphs (auto) 2.03, Nucleated RBC % 0, Sodium 136, Potassium 4.2, Chloride 103, Carbon Dioxide 22.5, Anion Gap 11, BUN 27 H, Creatinine 0.68 L, Estim Creat Clear Calc 41.90 L, Est GFR (MDRD) Non-Af 84, BUN/Creatinine Ratio 40.4 H, Glucose 136 H, Calcium 8.7 08/30/24 06:31: POC Glucose 173 H 08/30/24 10:41: POC Glucose 137 H Micro: Microbiology 08/27/24 11:35 Wound - Other Skin and Soft Tissue MRSA/MSSA (PCR - Final Physical Exam Narrative Patient AOx3. Vascular: Diminished pulses right lower extremity. Atrophic skin changes with skin thinning absence of digital hair growth. Ischemic ulceration noted to the right hallux. New area of ischemia to the right lateral fifth metatarsal head. Neurologic: Light touch protective diminished intact bilateral feet. Musculoskeletal: Absent fifth ray left lateral foot. No sign DVT bilaterally. Dermatologic: Full-thickness ulceration noted to the right hallux wound bed with exposed distal phalanx and periwound necrosis as well as fibrotic tissue building up in the interim phalangeal joint space. No acute purulent drainage malodor erythema edema warmth noted at this time. Focal area of ischemic changes noted to the right lateral fifth metatarsal head. Assessment & Plan Assessment/Plan (1) Osteomyelitis of great toe of right foot: PLAN: Exam performed will plan for right hallux amputation 09/01/24 - 12:00pm discussed possibility for non-healing and need for more proximal amputation due to poor arterial status. will plan for infection clearing amputation vascular planning bypass Thursday09/05/24 Wound care on board will follow up closely (2) Type 2 diabetes mellitus with foot ulcer: QUALIFIERS: Diabetes mellitus intermediate insulin use: with predatory animal exterminator use Qualified Code(s): E11.621 - Type 2 diabetes mellitus with foot ulcer; L97.509 - Non-pressure chronic ulcer of other part of unspecified foot with unspecified severity; Z79.4 - predatory animal exterminator (current) use of insulin
[2024-08-30] MEDS: 0.9% Normal Saline (100mL Bag) 100 ML 15 ML IV (12:38)
[2024-08-30 16:22] LABS: Bedside Glucose 133 mg/dL (74-106)
[2024-08-31] VITALS (8 sets, daily range): BP systolic 152–179; BP diastolic 42–68; PULSE 52–78; RESP 14–16; TEMP 36.3–36.7; O2SAT 98–100; BMI 19.8
[2024-08-31 00:09] LABS: Bedside Glucose 108 mg/dL (74-106)
[2024-08-31 01:09] LABS: Vancomycin, Trough Level 16.3 ug/mL (5.0-15.0)
[2024-08-31] MEDS: Vancomycin Trough/Random Due 1 LAB MC (01:29)
[2024-08-31] MEDS: Vancomycin HCl 750 MG in 0.9% Normal Saline (250mL Bag) 250 ML 250 MG IV ×2 (01:29→14:43)
--- NOTE | 2024-08-31 03:06 | PCM.RX.CS ---
Consult Antibiotic Management Pharmacy has been consulted to manage selected antibiotic: Vancomycin Type of Intervention Type of Consult: Follow-up Labs Labs: Sodium 136 mmol/L (133-145) 08/30/24 04:44 Potassium 4.2 mmol/L (3.3-5.1) 08/30/24 04:44 Chloride 103 mmol/L (98-108) 08/30/24 04:44 Carbon Dioxide 22.5 mmol/L (21.0-32.0) 08/30/24 04:44 Anion Gap 11 (5-15) 08/30/24 04:44 BUN 27 mg/dL (4-19) H 08/30/24 04:44 Creatinine 0.68 mg/dL (0.70-1.20) L 08/30/24 04:44 Est GFR (MDRD) Non-Af 84 (>60) 08/30/24 04:44 BUN/Creatinine Ratio 40.4 RATIO (10-20) H 08/30/24 04:44 Glucose 136 mg/dL (70-99) H 08/30/24 04:44 Vancomycin Trough 16.3 ug/mL (5.0-15.0) H 08/31/24 00:34 Microbiology Microbiology: Microbiology 08/27/24 11:35 Wound - Other Skin and Soft Tissue MRSA/MSSA (PCR - Final Goal Trough Goal Trough: 15-20 mcg/mL Pharmacy Plan for Drug Dosing Pharmacy Plan for Drug Dosing: Pharmacy Service will continue to monitor and adjust dosing as required. FILIBERTO 16.3 @ 9.5 HOURS. NO CHANGES, FOLLOW UP TROUGH IN 2 DAYS Follow-Up Labs Follow-Up Labs: Trough: Vancomycin Date/Time Labs Ordered Labs to be done on [date and time ordered]: 09/01 @ 1230
[2024-08-31] MEDS: Ampicillin/Sulbactam 3 GM in 0.9% Normal Saline (100mL MB+) 100 ML IV ×4 (06:04→23:04)
[2024-08-31] MEDS: Metoprolol Tartrate 25 MG Tablet PO ×3 (06:06→22:02)
[2024-08-31] MEDS: Acetaminophen 500 MG Tablet 1000 MG PO ×3 (06:07→22:02)
[2024-08-31 07:00] LABS: Bedside Glucose 123 mg/dL (74-106)
[2024-08-31 07:43] LABS: Absolute Lymphocyte Count 2.16 X10^3/uL (0.83-4.51); Absolute Neutrophil Count 2.5 X10^3/uL (2.0-7.7); Basophil# 0.08 X10^3/uL; Basophil% 1.4 % (0-1); Eosinophil# 0.29 X10^3/uL; Hematocrit 33.4 % (37-47); Hemoglobin 10.8 g/dL (12.0-15.0); Lymphocyte # 2.16 X10^3/ul (0.83-4.51); Mean Corp Hgb Conc 32.3 g/dL (32-36); Mean Corpuscular Hgb 28.7 pg (27.0-32.0); Mean Corpuscular Volume 88.8 fL (81-99); Mean Platelet Vol. 9.8 fl (6.2-12.0); Monocyte# 0.75 X10^3/uL; Monocyte% 12.9 % (0-10); NRBC Flagged by Analyzer 0 % (0-5); Neutrophil # 2.54 X10^3/uL (2.7-7.7); Neutrophil % 43.5 % (47-70); Platelet Count 333 K/mm3 (150-450); RBC Distribution Width CV 13.2 % (11.6-14.6); RBC Distribution Width SD 43.1 fl (35.1-43.9); Red Blood Count 3.76 M/mm3 (4.2-5.4); White Blood Count 5.8 K/mm3 (4.4-11.0)
[2024-08-31] MEDS: Clopidogrel Bisulfate 75 MG Tablet PO (07:46)
[2024-08-31] MEDS: Enoxaparin 40 MG/0.4 ML Syringe SC (07:46)
[2024-08-31] MEDS: amLODIPine 10 MG Tablet PO (07:46)
[2024-08-31] MEDS: Aspirin E.C. 81 MG Tablet PO (07:46)
[2024-08-31] MEDS: Lisinopril 10 MG Tablet PO (07:46)
[2024-08-31] MEDS: Glucerna Shake 120 ML LIQUID PO ×3 (07:47→17:49)
[2024-08-31] MEDS: Polyethylene Glycol 3350 17 GM PACKET PO (07:47)
[2024-08-31 08:20] LABS: BUN 26 mg/dL (4-19); BUN/Creat Ratio 36.4 RATIO (10-20); Calcium,Total 8.7 mg/dL (7.6-11.0); Chloride 103 mmol/L (98-108); Creatinine, Serum 0.71 mg/dL (0.70-1.20); EST Glomerular Filtration Rate 81 (>60); Estimated Creatinine Clearance 41.59 ml/min (50-250); Glucose 107 mg/dL (70-99); Potassium 3.8 mmol/L (3.3-5.1); Sodium Level 135 mmol/L (133-145)
[2024-08-31 08:28] LABS: Anion Gap 12 (5-15); Carbon Dioxide 20.1 mmol/L (21.0-32.0)
[2024-08-31] MEDS: 0.9% Saline Lock 10 ML Syringe IV (11:40)
[2024-08-31] MEDS: Insulin Lispro 100 UNIT/ML INSULN.PEN SC ×3 (11:40→22:03)
[2024-08-31 11:51] LABS: Bedside Glucose 176 mg/dL (74-106)
--- NOTE | 2024-08-31 13:21 | PCM.PN.ID ---
Physical Exam Narrative Feeling ok, no fever, no n/v/d. OR planned for tomorrow. No pain. Const alert and no apparent distress General Appearance: cooperative Resp normal air movement and clear to auscultation bilaterally Cardio regular rate and regular rhythm GI soft to palpation, non-tender and non-distended Skin Skin Narrative: no new rash ID ID: Route of nutrition/ use of supplements: [] Nutritional Intake: [] IV Site: [] White Catheter: [] Assessment & Plan Assessment/Plan (1) Osteomyelitis of great toe of right foot: PLAN: Cont vanc/unasyn, podiatry and vascular following. OR planned for tomorrow. Will follow (2) Other specified peripheral vascular diseases:
--- NOTE | 2024-08-31 14:24 | PCM.PN.SRG ---
Subjective Subjective Sofia was up to her chair this afternoon. She reports her R foot pain is stable, not too bothersome at the time of my evaluation. She feels as ready as she can be for her podiatry surgery tomorrow. She complains about the lovenox injection she had but otherwise no complaints. Objective Data Objective Data Vital Signs: Vital Signs Temp Pulse Resp BP Pulse Ox O2 Del Method 97.5 F L 52 L 14 160/42 H 100 Room Air 08/31/24 08:00 08/31/24 08:00 08/31/24 08:12 08/31/24 08:00 08/31/24 08:12 08/31/24 08:12 Oxygen Delivery Method Room Air Weight: 119 lb 7.849 oz Body Mass Index (BMI) 19.8 Intake & Output: Intake and Output for Last 24 Hours 08/29/24 08/30/24 08/31/24 23:59 23:59 23:59 Intake Total 1761.25 / 1761.25 1068.5 / 1068.5 489 / 489 Balance 1761.25 / 1761.25 1068.5 / 1068.5 489 / 489 Lab / Micro Data 08/31/24 06:40 08/31/24 06:40 Labs: Laboratory Results - last 24 hr 08/30/24 16:01: POC Glucose 133 H 08/30/24 22:42: POC Glucose 108 H 08/31/24 00:34: Vancomycin Trough 16.3 H 08/31/24 06:19: POC Glucose 123 H 08/31/24 06:40: WBC 5.8, RBC 3.76 L, Hgb 10.8 L, Hct 33.4 L, MCV 88.8, MCH 28.7, MCHC 32.3, RDW Std Deviation 43.1, RDW Coeff of Kathy 13.2, Plt Count 333, MPV 9.8, Immature Gran % (Auto) 0.200, Neut % (Auto) 43.5 L, Lymph % (Auto) 37.0, [place] % (Auto) 12.9 H, Eos % (Auto) 5.0, Baso % (Auto) 1.4 H, Absolute Neuts (auto) 2.5, Absolute Lymphs (auto) 2.16, Nucleated RBC % 0, Sodium 135, Potassium 3.8, Chloride 103, Carbon Dioxide 20.1 L, Anion Gap 12, BUN 26 H, Creatinine 0.71, Estim Creat Clear Calc 41.59 L, Est GFR (MDRD) Non-Af 81, BUN/Creatinine Ratio 36.4 H, Glucose 107 H, Calcium 8.7 08/31/24 11:33: POC Glucose 176 H Micro: Microbiology 08/27/24 11:35 Wound - Other Skin and Soft Tissue MRSA/MSSA (PCR - Final Physical Exam Const oriented x3 and no apparent distress Resp normal respiratory effort Cardio regular rate and regular rhythm Extremity Extremity Narrative: R foot with dressings/RAY wrap in place, C/D/I Assessment & Plan Assessment/Plan (1) Atherosclerosis of [place] arteries of extremities with gangrene, right leg: PLAN: Plan remains for femoral-tibial bypass with possible iliac stenting as scheduled 09/05. Podiatry intervention tomorrow. Charges/Coding Visit Charges Inpatient E&M: 04576 Subs Hosp L1
[2024-08-31] MEDS: 0.9% Normal Saline (100mL Bag) 100 ML 15 ML IV ×2 (14:42→22:56)
--- NOTE | 2024-08-31 16:25 | NURSING ---
All documentation by [employer] Arianne Nunez reviewed by [employer] uMnira VELAN, RN.
[2024-08-31 16:51] LABS: Bedside Glucose 172 mg/dL (74-106)
--- NOTE | 2024-08-31 17:25 | PCM.PN.HOSP ---
Reason for Visit Reason for Visit: Diagnoses Type 2 diabetes mellitus with foot ulcer (08/27/24) Atherosclerosis of [place] arteries of extremities with gangrene, right leg (08/27/24) Other specified peripheral vascular diseases (08/27/24) Peripheral vascular disease, unspecified (08/27/24) Cellulitis of right lower limb (08/27/24) Non-pressure chronic ulcer of other part of unspecified foot with unspecified severity (08/27/24) Osteomyelitis, unspecified (08/27/24) alf (current) use of insulin (08/27/24) Subjective Subjective Patient feeling well overall today with no new or acute complaints Objective Data Objective Data Vital Signs: Vital Signs Temp Pulse Resp BP Pulse Ox O2 Del Method 97.3 F L 64 16 152/42 H 98 Room Air 08/31/24 14:28 08/31/24 14:43 08/31/24 14:28 08/31/24 14:28 08/31/24 14:28 08/31/24 14:28 Oxygen Delivery Method Room Air Weight: 54.2 kg Body Mass Index (BMI) 19.8 Intake & Output: Intake and Output for Last 24 Hours 08/29/24 08/30/24 08/31/24 23:59 23:59 23:59 Intake Total 1761.25 / 1761.25 1068.5 / 1068.5 489 / 489 Balance 1761.25 / 176.25 1068.5 / 1068.5 489 / 489 Lab / Micro Data 08/31/24 06:40 08/31/24 06:40 Labs: Laboratory Results - last 24 hr 08/30/24 22:42: POC Glucose 108 H 08/31/24 00:34: Vancomycin Trough 16.3 H 08/31/24 06:19: POC Glucose 123 H 08/31/24 06:40: WBC 5.8, RBC 3.76 L, Hgb 10.8 L, Hct 33.4 L, MCV 88.8, MCH 28.7, MCHC 32.3, RDW Std Deviation 43.1, RDW Coeff of Kathy 13.2, Plt Count 333, MPV 9.8, Immature Gran % (Auto) 0.200, Neut % (Auto) 43.5 L, Lymph % (Auto) 37.0, [place] % (Auto) 12.9 H, Eos % (Auto) 5.0, Baso % (Auto) 1.4 H, Absolute Neuts (auto) 2.5, Absolute Lymphs (auto) 2.16, Nucleated RBC % 0, Sodium 135, Potassium 3.8, Chloride 103, Carbon Dioxide 20.1 L, Anion Gap 12, BUN 26 H, Creatinine 0.71, Estim Creat Clear Calc 41.59 L, Est GFR (MDRD) Non-Af 81, BUN/Creatinine Ratio 36.4 H, Glucose 107 H, Calcium 8.7 08/31/24 11:33: POC Glucose 176 H 08/31/24 16:33: POC Glucose 172 H Micro: Microbiology 08/27/24 11:35 Wound - Other Skin and Soft Tissue MRSA/MSSA (PCR - Final Physical Exam Narrative General: Alert, oriented, no apparent distress HEENT: Atraumatic, normocephalic Eyes: extraocular movements grossly intact Neck: Supple Respiratory: normal respiratory effort Cardiovascular: no edema appreciated GI: nondistended Extremities: Right foot covered Neuro: No overt focal neurological deficits Psych: Cooperative Assessment & Plan Assessment/Plan (1) Cellulitis of foot, right: (2) Peripheral vascular disease: (3) Osteomyelitis of great toe of right foot: PLAN: Plan # Diabetic foot infection with right first toe osteomyelitis - Imaging obtained on admission consistent with osteomyelitis of right first toe - Patient on Unasyn - Podiatry, ID, vascular surgery consulted - Wound cultures obtained on admission positive for Staph aureus - Podiatry evaluating for possible right hallux amputation, likely tomorrow versus Thursday depending on or availability, podiatry note reviewed - Patient weightbearing to right heel, walker and surgical shoe -08/30: Plan for right hallux amputation this week -08/31: Will plan amputation tomorrow, will make n.p.o. at midnight, ID following, remains on vancomycin and Unasyn # Peripheral arterial disease - Evaluated by vascular surgery - Patient is scheduled for tibial bypass 09/05 along with toe amputation - Pending OR availability bypass may be moved up - Appreciate vascular surgery recommendations - Patient on aspirin and Plavix -08/30: Discussed with vascular surgery, bypass will be planned for Thursday -08/31: #Hypertension - Patient on metoprolol and amlodipine - Patient has remained elevated with an a.m. systolic blood pressure of 187 on 08/29 - Will add lisinopril -08/30: Remains hypertensive, lisinopril increased -08/31: Blood pressure 152/42 today, just had lisinopril started and increased the patient have surgery tomorrow, hold off on further changes today but will continue to monitor Chronic medical problems and/or problems not being actively addressed during today's encounter: # Coronary artery disease - With previous PCI in 2017 and 2011 - Patient on aspirin and Plavix as well as beta-zahida - Patient not on statin due to myalgias with multiple agents #Type 2 diabetes mellitus -Glucose checks and sliding scale insulin #DVT ppx: Lovenox subcu Arely Marks MD Time spent in the patient's overall evaluation,decision-making process, review of diagnostic data, adjustment of management, discussion with other providers, nursing nursing and ancillary staff involved in patient's care documentation, 35 Minutes Charges/Coding Visit Charges Inpatient E&M: 77010 Subs Hosp L2
[2024-08-31 22:53] LABS: Bedside Glucose 166 mg/dL (74-106)
[2024-09-01] VITALS (15 sets, daily range): BP systolic 145–186; BP diastolic 42–85; PULSE 55–66; RESP 16–18; TEMP 36.3–37; O2SAT 97–100; BMI 19.9
[2024-09-01] MEDS: Vancomycin HCl 750 MG in 0.9% Normal Saline (250mL Bag) 250 ML 250 MG IV ×2 (00:33→15:26)
[2024-09-01 04:57] LABS: Absolute Lymphocyte Count 1.98 X10^3/uL (0.83-4.51); Absolute Neutrophil Count 3.7 X10^3/uL (2.0-7.7); Basophil# 0.07 X10^3/uL; Eosinophil# 0.33 X10^3/uL; Eosinophils% 4.9 % (0-5); Hematocrit 31.2 % (37-47); Hemoglobin 10.2 g/dL (12.0-15.0); Lymphocyte # 1.98 X10^3/ul (0.83-4.51); Lymphocyte % 29.4 % (19-41); Mean Corp Hgb Conc 32.7 g/dL (32-36); Mean Corpuscular Volume 88.6 fL (81-99); Mean Platelet Vol. 9.7 fl (6.2-12.0); Monocyte# 0.68 X10^3/uL; Monocyte% 10.1 % (0-10); NRBC Flagged by Analyzer 0 % (0-5); Neutrophil # 3.65 X10^3/uL (2.7-7.7); Neutrophil % 54.3 % (47-70); Platelet Count 352 K/mm3 (150-450); RBC Distribution Width CV 13.3 % (11.6-14.6); Red Blood Count 3.52 M/mm3 (4.2-5.4); White Blood Count 6.7 K/mm3 (4.4-11.0)
[2024-09-01] MEDS: Metoprolol Tartrate 25 MG Tablet PO ×3 (05:39→20:48)
[2024-09-01] MEDS: Ampicillin/Sulbactam 3 GM in 0.9% Normal Saline (100mL MB+) 100 ML IV ×3 (05:40→23:53)
[2024-09-01] MEDS: Acetaminophen 500 MG Tablet 1000 MG PO ×3 (05:40→20:48)
[2024-09-01 06:14] LABS: Anion Gap 12 (5-15); BUN 32 mg/dL (4-19); BUN/Creat Ratio 39.5 RATIO (10-20); Calcium,Total 8.7 mg/dL (7.6-11.0); Carbon Dioxide 19.7 mmol/L (21.0-32.0); Chloride 105 mmol/L (98-108); Creatinine, Serum 0.81 mg/dL (0.70-1.20); EST Glomerular Filtration Rate 70 (>60); Estimated Creatinine Clearance 41.15 ml/min (50-250); Glucose 131 mg/dL (70-99); Potassium 3.9 mmol/L (3.3-5.1); Sodium Level 136 mmol/L (133-145)
[2024-09-01 07:06] LABS: Bedside Glucose 139 mg/dL (74-106)
--- NOTE | 2024-09-01 08:08 | WOUNDNOTE ---
Pt going to surgery today. will leave dressing in place.
[2024-09-01 09:17] LABS: International Normalized Ratio 0.9; Prothrombin Time (Protime)PT. 12.6 SECONDS (11.7-14.9)
--- NOTE | 2024-09-01 09:40 | PCM.PN.HOSP ---
Reason for Visit Reason for Visit: Diagnoses Type 2 diabetes mellitus with foot ulcer (08/27/24) Atherosclerosis of [place] arteries of extremities with gangrene, right leg (08/27/24) Other specified peripheral vascular diseases (08/27/24) Peripheral vascular disease, unspecified (08/27/24) Cellulitis of right lower limb (08/27/24) Non-pressure chronic ulcer of other part of unspecified foot with unspecified severity (08/27/24) Osteomyelitis, unspecified (08/27/24) shelter (current) use of insulin (08/27/24) Subjective Subjective Patient evaluated preoperatively, she has no new or acute complaints, reports overall feeling well, patient for surgery today Objective Data Objective Data Vital Signs: Vital Signs Temp Pulse Resp BP Pulse Ox O2 Del Method 97.8 F 55 L 16 170/47 H 97 Room Air 09/01/24 08:36 09/01/24 08:36 09/01/24 08:36 09/01/24 08:36 09/01/24 08:36 09/01/24 08:36 Oxygen Delivery Method Room Air Weight: 54.3 kg Body Mass Index (BMI) 19.9 Intake & Output: Intake and Output for Last 24 Hours 08/30/24 08/31/24 09/01/24 23:59 23:59 23:59 Intake Total 1068.5 / 1068.5 1078 / 1078 589 / 589 Balance 1068.5 / 1068.5 1078 / 1078 589 / 589 Lab / Micro Data 09/01/24 04:07 09/01/24 04:07 Labs: Laboratory Results - last 24 hr 08/31/24 11:33: POC Glucose 176 H 08/31/24 16:33: POC Glucose 172 H 08/31/24 21:59: POC Glucose 166 H 09/01/24 04:07: WBC 6.7, RBC 3.52 L, Hgb 10.2 L, Hct 31.2 L, MCV 88.6, MCH 29.0, MCHC 32.7, RDW Std Deviation 43.0, RDW Coeff of Kathy 13.3, Plt Count 352, MPV 9.7, Immature Gran % (Auto) 0.300, Neut % (Auto) 54.3, Lymph % (Auto) 29.4, [place] % (Auto) 10.1 H, Eos % (Auto) 4.9, Baso % (Auto) 1.0, Absolute Neuts (auto) 3.7, Absolute Lymphs (auto) 1.98, Nucleated RBC % 0, Sodium 136, Potassium 3.9, Chloride 105, Carbon Dioxide 19.7 L, Anion Gap 12, BUN 32 H, Creatinine 0.81, Estim Creat Clear Calc 41.15 L, Est GFR (MDRD) Non-Af 70, BUN/Creatinine Ratio 39.5 H, Glucose 131 H, Calcium 8.7 09/01/24 05:46: POC Glucose 139 H 09/01/24 08:53: PT 12.6, INR 0.9 Micro: Microbiology 08/27/24 11:35 Wound - Other Skin and Soft Tissue MRSA/MSSA (PCR - Final Physical Exam Narrative General: Alert, oriented, no apparent distress HEENT: Atraumatic, normocephalic Eyes: Anicteric, normal conjunctiva, extraocular movements grossly intact Neck: Supple Respiratory: Clear to auscultation bilaterally, normal respiratory effort Cardiovascular: Regular rate and rhythm GI: Soft, nontender, nondistended Extremities: No edema Musculoskeletal: Moving all extremities Neuro: No overt focal neurological deficits Skin: No rashes appreciated Psych: Cooperative Assessment & Plan Assessment/Plan (1) Cellulitis of foot, right: (2) Peripheral vascular disease: (3) Osteomyelitis of great toe of right foot: PLAN: Plan # Diabetic foot infection with right first toe osteomyelitis - Imaging obtained on admission consistent with osteomyelitis of right first toe - Patient on Unasyn - Podiatry, ID, vascular surgery consulted - Wound cultures obtained on admission positive for Staph aureus - Podiatry evaluating for possible right hallux amputation, likely tomorrow versus Thursday depending on or availability, podiatry note reviewed - Patient weightbearing to right heel, walker and surgical shoe -08/30: Plan for right hallux amputation this week -08/31: Will plan amputation tomorrow, will make n.p.o. at midnight, ID following, remains on vancomycin and Unasyn -09/01: Patient for amputation today # Peripheral arterial disease - Evaluated by vascular surgery - Patient is scheduled for tibial bypass 09/05 along with toe amputation - Pending OR availability bypass may be moved up - Appreciate vascular surgery recommendations - Patient on aspirin and Plavix -08/30: Discussed with vascular surgery, bypass will be planned for Thursday -09/01: Still plans for bypass on Thursday #Hypertension - Patient on metoprolol and amlodipine - Patient has remained elevated with an a.m. systolic blood pressure of 187 on 08/29 - Will add lisinopril -08/30: Remains hypertensive, lisinopril increased -08/31: Blood pressure 152/42 today, just had lisinopril started and increased the patient have surgery tomorrow, hold off on further changes today but will continue to monitor -09/01: Patient hypertensive this morning but is going for surgery, will further evaluate and adjust medications tomorrow if applicable Chronic medical problems and/or problems not being actively addressed during today's encounter: # Coronary artery disease - With previous PCI in 2017 and 2011 - Patient on aspirin and Plavix as well as beta-zahida - Patient not on statin due to myalgias with multiple agents #Type 2 diabetes mellitus -Glucose checks and sliding scale insulin #DVT ppx: Lovenox subcu Arely Marks MD Charges/Coding Visit Charges Inpatient E&M: 85361 Subs Hosp L1
--- NOTE | 2024-09-01 10:50 | NURSING ---
Patient off unit to OR at this time. AC RN aware that bp is elevated.
--- NOTE | 2024-09-01 12:00 | AMP_PTH ---
PATIENT: GENTRY COBB LOC: [facility] U#:[id number] AGE/SX: 88/F ROOM: [facility] RE08/27/[address]: Dr. Joe Jefferson MD : [id number] BED: 1 DIS: 09/10/2024 SPEC #: [id number] RECD: 09/01/24 15:07 STATUS: MARY KAY #: [id number] ROHINI: 09/01/24 12:[address]: Rohit Tiwari DEPT: SURGICAL PATHOLOGY RECD BY: Orlando Villagomez ENTERED: 09/01/24 15:08 SP TYPE: Amputation OTHR DR: MD Dr. Ranjit Alves MD Dr. Eric Turney, MD Dr. Paige Pierce, MD Dr. Robert Leininger, MD Tissues: A - Toe, NOS Procedures: Decalcification bone/plaque Surgery Specimen Level IV Comments: @ Ordering doctor for DEC edited from to @ by VALERIE at 09/01/24 1508 @ Ordering doctor for SUIV edited from to @ by VALERIE at 09/01/24 1508 @ Submitting doctor edited from to @ by VALERIE at 09/01/24 1508 HEADER OPERATION: Amputation toe, hallux with advancement flap closure PRE-OP DIAGNOSIS: Osteomyelitis of great toe of right foot TISSUE SUBMITTED: A- Right great toe bone MICROSCOPIC DIAGNOSIS A. Right great toe, osteomyelitis, amputation: * Cutaneous ulcer, osteomyelitis. MICROSCOPIC DESCRIPTION Slides are reviewed. GROSS DESCRIPTION A. Received in formalin in a container labeled with the patient's name, date of , and right great toe bone is a 2.9 x 1.5 x 1.2 cm fragment of george-pink, irregular, and previously disrupted soft tissue. There is white-borden, shaggy skin measuring approximately 4.2 x 0.7 cm. There are green-borden, firm discolorations. Serial sections reveal george-pink and rubbery surfaces with a 1.0 x 1.0 cm fragment of george, firm bone. Field Assistant sections:A1. Soft tissueA2. Bone, following decalcification [facility] 09/01/2024 CPT:38690,85536
--- NOTE | 2024-09-01 12:00 | PRE.ANES_ITS ---
ASA Classification* ASA Classification ASA Classification: 3 Assessment & Plan Anesthesia* Anesthesia Assessment Anesthesia Assessment: Discussed sedation and/or anesthesia options, risks, benefits, and alternatives with patient/parents/legal guardian/POA. Questions invited. The patient/parents/legal guardian/POA seems to understand and agrees to proceed with anesthesia plan. Reviewed the physical assessment, medical history, allergy history and patient home medications list prior to surgery/procedure/anesthetic and documented any changes. Performed airway and anesthesia risk assessments. Anesthesia Type Anesthesia Type: MAC History Source History Obtained from:: Patient and Chart Anesthesia Focused Assessment* Temperature: 97.8 F Pulse Rate: 55 Blood Pressure: 180/85 Respiratory Rate: 16 Pulse Ox: 97 Oxygen Delivery Method: Room Air Airway Assessment Mouth opens: >3 cm Mallampati Score: II Teeth Condition: Missing (Patient is edentulous.) Neck Range of motion (ROM): Limited ROM Focused Labs Anesthesia Preop lab: CBC WBC 6.7 K/mm3 (4.4-11.0) 09/01/24 04:07 09/01/24 RBC 3.52 M/mm3 (4.2-5.4) L 09/01/24 04:07 09/01/24 Hgb 10.2 g/dL (12.0-15.0) L 09/01/24 04:07 5 Hct 31.2 % (37-47) L 09/01/24 04:07 09/01/24 Plt Count 352 K/mm3 (150-450) 09/01/24 04:07 09/01/24 CHEMISTRY Potassium 3.9 mmol/L (3.3-5.1) 09/01/24 04:07 09/01/24 Sodium 136 mmol/L (133-145) 09/01/24 04:07 09/01/24 Magnesium 2.0 mg/dL (1.5-2.2) 08/28/24 05:55 08/28/24 Phosphorus 3.2 mg/dL (2.7-4.5) 08/28/24 05:55 08/28/24 BUN 32 mg/dL (4-19) H 09/01/24 04:07 09/01/24 Creatinine 0.81 mg/dL (0.70-1.20) 09/01/24 04:07 09/01/24 Glucose 131 mg/dL (70-99) H 09/01/24 04:07 09/01/24 POC Glucose 139 mg/dL (74-106) H 09/01/24 05:46 09/01/24 TSH 3.14 uIU/mL (0.358-3.74) 09/17/23 06:25 COAG PT 12.6 SECONDS (11.7-14.9) 09/01/24 08:53 Pre-Assessment Diagnosis/Proposed Procedure Planned Operative Procedure(s): Amputation of toe hallux with advancement flap closure on the right. Anesthesia History Anesthesia History - telehealth nurse educator: Anesthesia History - telehealth nurse educator Hx Hospitalization Yes: 04/2024 INFECTION IN 08/25/24 09:07 TOE AND ND Any Problems With Anesthesia No 09/01/24 00:00 Cholinesterase deficiency No 09/01/24 00:00 You/Your Family Experience No 09/01/24 00:00 fever (hyperthermia) with Relationship Recent Exposure to Contagious No 09/01/24 00:00 Disease Does patient have nerve No 09/01/24 00:00 stimulator Patient instructed to have No 09/01/24 00:00 device shut off --Does patient have Pacemaker or ICD? When Was Last Pacemaker Check QUESTION #4 FULL TEXT: You/Your Family Experience fever (hyperthermia) with Anesthesia Last Oral Intake Last Oral intake: Last Oral Intake NPO since Meds taken in AM with sips of water? Meds patient instructed to take am of surgery Any additional information?: Yes NPO since: 00:00 Meds taken in AM with sips of water?: Yes PONV PONV - telehealth nurse educator: PONV - telehealth nurse educator Female HX of Motion Sickness HX of N/V After Surgery Non-Smoker Duration of Surgery greater than 60 minutes Number of Risk Factors PONV Score Height & Weight Height & Weight: Anesthesia: Height & Weight Height 5 ft 5 in 09/01/24 10:27 Weight: 54.3 kg 09/01/24 10:27 Body Mass Index (BMI) 19.9 09/01/24 06:00 Respiratory Assessment Respiratory Assessment - telehealth nurse educator: Respiratory Tract Infection Hx - telehealth nurse educator Hx Respiratory Tract Infection No 09/01/24 00:00 STOP Sleep Apnea STOP Sleep Apnea - telehealth nurse educator: STOP Sleep Apnea - telehealth nurse educator Hx Hypertension Yes 08/27/24 11:21 Hx Sleep Apnea No 08/27/24 11:21 CPAP No 05/16/24 18:33 BIPAP No 05/16/24 18:33 Do you snore loudly (louder Yes 08/27/24 11:21 than talking or can be heard Do you often feel tired/ Yes 08/27/24 11:21 fatigued/ sleepy during daytime? Has anyone observed you stop Yes 08/27/24 11:21 breathing during sleep? STOP Results Positive 08/27/24 11:21 QUESTION #5 FULL TEXT : Do you snore loudly (louder than talking or can be heard through closed doors)? 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 Specify any problems Hx of Preganancy in last 3 No 08/27/24 11:21 Months Nurse Filling Out Transfusion AWHIMS 08/27/24 11:21 & Questions: Date: 08/27/24 08/27/24 11:21 Time: 11:55 08/27/24 11:21 Patient unable to answer at this time (ie. confused, unrespo /Reproduction History /Reproductive History - telehealth nurse educator: /Reproductive Hx- telehealth nurse educator Hx Now No 09/01/24 00:00 Gestational Age (in weeks): EDC: Hx Hx Para Hx Section SAB No 09/01/24 00:00 Active Medications Active Medications: Current Medications Generic Name Dose Route Start Last Admin Trade Name Freq PRN Reason Stop Dose Admin Acetaminophen 1,000 mg 08/27/24 14:00 09/01/24 05:40 Acetaminophen 500 Mg Tablet PO 1,000 mg Q8 ALEXANDER Administration Albuterol Sulfate 2.5 mg 08/27/24 11:20 Albuterol 2.5 Mg/3 Ml Vial.Neb. INHALATION Q2H PRN PRN SOB &/OR WHEEZING Amlodipine Besylate 10 mg 08/28/24 10:00 09/01/24 08:32 Amlodipine 10 Mg Tablet PO Not Given DAILY [facility] Protocol Aspirin 81 mg 08/28/24 08:00 09/01/24 08:32 Aspirin E.C. 81 Mg Tablet PO Not Given DAILY@0800 [facility] Bisacodyl 10 mg 08/30/24 14:44 Bisacodyl 10 Mg Suppository RC DAILY PRN HEMORRHOIDS Clopidogrel Bisulfate 75 mg 08/28/24 10:00 09/01/24 08:33 Clopidogrel Bisulfate 75 Mg Tablet PO Not Given DAILY [facility] Glucagon 1 mg 08/27/24 11:20 Glucagon 1 Mg/Ml Syringe IM X1 PRN HYPOGLYCEMIA Protocol Hydromorphone HCl 0.5 - 1 mg 08/27/24 11:20 Hydromorphone 1 Mg/Ml Syringe IV Q3H PRN PRN Pain Score 6-10 Hydromorphone HCl 0.5 - 1 mg 08/27/24 12:18 Hydromorphone 0.5 Mg/0.5 Ml Syringe IV Q3H PRN PRN Pain Score 6-10 Dextrose 250 mls @ 0 mls/hr 08/27/24 11:20 Dextrose 10%-Water IV .Q0M PRN HYPOGLYCEMIA Protocol As Directed Ampicillin Sodium/Sulbactam 112 mls @ 150 mls/hr 08/27/24 12:00 09/01/24 06:56 Sodium 3 gm/ Sodium Chloride IV Infused Q6 ALEXANDER Infusion Vancomycin IV-PHARMACY TO DOSE 500 mls @ 250 mls/hr 08/27/24 11:20 1 each/ Sodium Chloride IV X1 PRN Rx to Dose Protocol Sodium Chloride 100 mls @ 15 mls/hr 08/27/24 11:22 09/01/24 06:56 IV Infused .Q6H40M PRN Infusion Saline Flush Sodium Chloride 100 mls @ 15 mls/hr 08/27/24 11:22 IV .Q6H40M PRN Additional IVPB Infusion Vancomycin HCl 750 mg/ Sodium 265 mls @ 250 mls/hr 08/29/24 13:00 09/01/24 05:17 Chloride IV Infused Q12H ALEXANDER Infusion Cefazolin Sodium 2 gm/ N/A 20 mls @ 400 mls/hr 09/01/24 12:00 IV 09/01/24 12:02 PREOP ONE Insulin Human Lispro 0 unit 08/27/24 11:20 09/01/24 05:48 Insulin Lispro 100 Unit/Ml Insuln.Pen SC Not Given ACHS [facility] Protocol Lisinopril 10 mg 08/30/24 10:00 09/01/24 08:33 Lisinopril 10 Mg Tablet PO Not Given DAILY [facility] Protocol Melatonin 3 mg 08/27/24 11:20 Melatonin 3 Mg Tablet PO QHS PRN PRN INSOMNIA Metoprolol Tartrate 25 mg 08/27/24 14:00 09/01/24 05:39 Metoprolol Tartrate 25 Mg Tablet PO 25 mg TID [facility] Administration Protocol Nitroglycerin 0.4 mg 08/27/24 11:20 Nitroglycerin (Inpatient Use) 0.4 Mg Tab.Subl SL Q5M PRN chest pain Nutritional Formula (Lactose Free) 120 ml 08/27/24 12:00 09/01/24 08:32 Glucerna Shake 120 Ml Liquid PO Not Given TIDCM [facility] Ondansetron HCl 4 mg 08/27/24 11:20 Ondansetron 4 Mg/2 Ml Vial IV Q8H PRN PRN NAUSEA/VOMITING Oxycodone HCl 5 mg 08/27/24 11:20 08/28/24 01:08 Oxycodone 5 Mg Tablet PO 5 mg Q4H PRN PRN Administration Pain Score 4-10 Polyethylene Glycol 17 gm 08/29/24 10:00 09/01/24 08:32 Polyethylene Glycol 3350 17 Gm Packet PO Not Given BID ALEXANDER Sodium Chloride 10 - 40 ml 08/27/24 11:22 08/31/24 11:40 0.9% Saline Lock 10 Ml Syringe IV 10 ml UD PRN Administration SALINE FLUSH Vancomycin Protocol 1 lab 09/01/24 11:30 09/01/24 10:56 Vancomycin Trough/Random Due MC 09/01/24 13:30 Not Given DAILY ALEXANDER PFSH Medical History Alcohol use Open wound Takotsubo cardiomyopathy Stenosis of right subclavian artery Normochromic normocytic anemia LV dysfunction 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 Non-ST elevation ND (NSTEMI) Diabetic foot infection Syncope Sepsis Aftercare following surgery of the circulatory system TIA (transient ischemic attack) Stroke/cerebrovascular accident Carotid stenosis Wears eyeglasses Depression Anxiety Hx of syncope Dietary restriction Hx of heartburn Hx of shortness of breath Hx of edema Hx of echocardiogram Hx of cardiovascular stress test Preoperative cardiovascular examination Carotid stenosis Ulcer of left foot with bone involvement without evidence of necrosis Non-pressure chronic ulcer of other part of left foot with necrosis of bone Wears dentures Ambulates with cane Arthritis Easy bruising Prolapsed bladder Former smoker Cardiology follow-up encounter Cellulitis of left thigh Syncope Hematoma of frontal scalp Post-op pain Ischaemic rest pain of lower extremity Open wound of left foot Cellulitis of left foot 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 without evidence of necrosis Cellulitis of left toe Amputated toe GI bleed Non-pressure chronic ulcer of other part of left foot with fat layer exposed Rectocele Cystocele Presence of stent in coronary artery (~07/04/11) Essential hypertension RBBB (right bundle branch block) 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 HTN (hypertension) Osteoarthritis Diabetes Hyperlipidemia Carotid stenosis, bilateral BBB (bundle branch block) PAD (peripheral artery disease) Home Medications ?Medication ?Instructions ?Recorded ?Last Taken ?Type clopidogrel 75 mg tablet 75 mg PO DAILY platelet inhi bitor 06/07/16 08/27/24 History multivitamin 1 tab PO DAILY SUPPLEMENT 08/27/24 History lisinopril 20 mg tablet 20 mg PO BID BP 01/01/2110/16 History metoprolol tartrate 25 mg tablet 25 mg PO TID BP 01/0108/27/24 History metformin 500 mg tablet,extended 500 mg PO BID DM 12/1308/27/24 History release 24 hr amlodipine 10 mg tablet 10 mg PO DAILY bp 11/12/23 0 08/27/24 History aspirin 81 mg tablet,delayed 81 mg PO DAILY@0800 [facility] 05/16/24 08/27/24 Rx release #0 tabs nitroglycerin 0.4 mg sublingual 0.4 mg sublingual Q5-1 5M PRN chest 07/27/24 Unknown Rx tablet pain #25 tabs acetaminophen 325 mg tablet 650 mg PO Q6H PRN PRN feve r 08/27/24 Unknown History doxycycline hyclate 100 mg tablet 100 mg PO BID 08/27/24 History Allergy/AdvReac Type Severity Reaction Status Date / Time pravastatin AdvReac Severe myalgias Verified 08/27/24 08:55 Nyutrmu-YAX-OnF Reductase AdvReac Severe myalgias Verified 08/27/24 08:55 Inhibitor Sulfa (Sulfonamide AdvReac Mild stomach Verified 08/27/24 08:55 Antibiotics) upset atorvastatin AdvReac myalgias Verified 08/27/24 08:55 Family History Father Diabetes Heart disease Brother Diabetes Colon cancer Brother Diabetes Surgical History History of cardiac catheterization Hx of toe surgery Hx of toe surgery S/P bladder repair History of colonoscopy History of tonsillectomy Cataract extraction status of right eye Presence of coronary angioplasty implant and graft (~05/11/24) History of hemorrhoidectomy History of hysterectomy History of left-sided carotid endarterectomy Status post peripheral artery angioplasty History of heart artery stent Social History Smoking Status: Former smoker how long ago did patient quit smokin + years ago alcohol intake: current alcohol intake frequency: a few times a month Alcohol type: wine substance use type: does not use caffeine: Yes Type: coffee Number of servings: 2 what type of physical activity do you participate in: walking seatbelt use: always do you feel safe at home: Yes Review of Systems (Anesthesia) ROS Narrative System reviewed and no additional complaints, except as documented.
[2024-09-01] MEDS: Cefazolin 2 GM in Syringe IV (12:23)
[2024-09-01] MEDS: Bupivacaine Mpf 0.5% 30 ML VIAL (12:24)
--- NOTE | 2024-09-01 12:44 | OP.PCM_ITS ---
Problems Associated Problem List Diagnoses (1) Cellulitis of foot, right: (2) Peripheral vascular disease: (3) Osteomyelitis of great toe of right foot: (4) Neuropathic ulcer of toe of right foot with necrosis of bone: (5) Non-pressure chronic ulcer of other part of right foot with necrosis of bone: Operative Report (Standard) Operative Information Date of Procedure: 09/01/24 Pre-Operative Diagnosis: Chronic osteomyelitis, right hallux Full-thickness wound down to bone, right hallux peripheral arterial disease pending femoropopliteal bypass right lower extremity Post-Operative Diagnosis: Same Surgery/Procedure Performed: Amputation right hallux at interphalangeal joint with advancement flap closure category planner: Yes Manufacturing Advisor: roby schilling Tasks completed by presser first: Opening and Closing Type of Anesthesia: MAC RN Documented Start/Stop Times: Operation Date: 09/01/24 12:00 Case Time Into Pre-Op 09/01/24 10:56 Out of Pre-Op 09/01/24 12:05 Anesthesia Start 09/01/24 12:08 Into Room 09/01/24 12:08 Procedure Start 09/01/24 12:27 Procedure Start Time: 12:00 Procedure Stop Time: 12:46 Select all DRAINS/GRAFTS/IMPLANTS that apply: None Special Medications: 30 cc half percent Marcaine plain Estimated Blood Loss: 10 to 15 c Specimen collected: Yes Description of specimen(s) removed: Right hallux for bone culture and bone pathology Description of surgery: Procedure: Right Partial Hallux Amputation with Advancement Flap Closure Indications: The patient, a [age]-year-old [gender] with a history of chronic osteomyelitis and peripheral artery disease (PAD), presented with an infected right hallux. The patient is pending a femoral-popliteal bypass next week due to ongoing concerns related to PAD. Due to the progression of infection and the patient's inpatient status, the decision was made to perform an early amputation to prevent further spread of infection and tissue compromise. Procedure Details: After the patient was appropriately positioned and prepped in the operating room, mac anesthesia was administered with 30cc of 0.5% Marcaine plain to the local area. No tourniquet was applied for the procedure. An incision was made around the right hallux, with careful dissection to expose the affected tissue. The hallux was evaluated, revealing necrotic and infected tissue consistent with chronic osteomyelitis. A partial amputation of the distal hallux was performed, removing the infected bone and tissue. A tissue void was noted after resection, requiring tissue remodeling and advancement of surrounding soft tissue to adequately cover the wound bed. The surrounding skin and soft tissue were mobilized and advanced to cover the defect without tension. The wound was carefully inspected to ensure adequate closure and no further signs of infection. Right hallux was sent for bone culture and pathology. Site was flushed with copious months normal sterile saline and closed as documented below. Hemostasis was achieved, and the wound was closed in layers using absorbable sutures. No drainage was placed. The procedure was well tolerated by the patient, and no complications were noted. The patient was transferred back to the inpatient unit for further management and observation. Postoperative Plan: * Continue close monitoring for signs of infection. * Pending fem-pop bypass next week to address underlying PAD. * Pain management as needed with appropriate analgesia. * Follow-up with wound care for dressing changes and evaluation of healing progress. Estimated Blood Loss: Minimal Tourniquet Time: None Complications: None Surgical Findings: as dictated aboove Complications Complications: No
--- NOTE | 2024-09-01 13:02 | PCM.POST.ANE ---
Anesthesia: Postop Eval I Current Vital Signs Temperature: 97.4 F Pulse Rate: 61 Blood Pressure: 171/54 Respiratory Rate: 16 Pulse Ox: 100 Oxygen Delivery Method: Room Air Assessment Airway patent: Yes Spontaneous unlabored respirations: Yes Mental status: Awake nausea: No Vomiting: No Anesthesia Complication: No Fluid Hydration Crystalloid volume administer (ml): 150 Total IV fluid infused: 150 Progress Note Anesthesia document: Postop Eval 1 completed: Yes
[2024-09-01] MEDS: Lisinopril 10 MG Tablet PO (13:40)
[2024-09-01] MEDS: amLODIPine 10 MG Tablet PO (13:41)
[2024-09-01 14:25] LABS: Vancomycin, Trough Level 17.4 ug/mL (5.0-15.0)
--- NOTE | 2024-09-01 14:40 | PCM.RX.CS ---
Consult Antibiotic Management Pharmacy has been consulted to manage selected antibiotic: Vancomycin Type of Intervention Type of Consult: Follow-up Suspected Infection Suspected Infection: Skin/Soft tissue and Osteomyelitis Labs Labs: Sodium 136 mmol/L (133-145) 09/01/24 04:07 Potassium 3.9 mmol/L (3.3-5.1) 09/01/24 04:07 Chloride 105 mmol/L (98-108) 09/01/24 04:07 Carbon Dioxide 19.7 mmol/L (21.0-32.0) L 09/01/24 04:07 Anion Gap 12 (5-15) 09/01/24 04:07 BUN 32 mg/dL (4-19) H 09/01/24 04:07 Creatinine 0.81 mg/dL (0.70-1.20) 09/01/24 04:07 Est GFR (MDRD) Non-Af 70 (>60) 09/01/24 04:07 BUN/Creatinine Ratio 39.5 RATIO (10-20) H 09/01/24 04:07 Glucose 131 mg/dL (70-99) H 09/01/24 04:07 Vancomycin Trough 17.4 ug/mL (5.0-15.0) H 09/01/24 13:49 Microbiology Microbiology: Microbiology 08/27/24 11:35 Wound - Other Skin and Soft Tissue MRSA/MSSA (PCR - Final Dosing Weight Weight used for dosin.6 kg Goal Trough Goal Trough: 15-20 mcg/mL Pharmacy Plan for Drug Dosing Pharmacy Plan for Drug Dosing: VANCOMYCIN LEVEL RECEIVED Current Vancomycin Dose: 750 MG Q12H Number of Doses Received: 2 Vancomycin Level: 17.4 UG/mL Hours Since Last Dose: 13.5 Renal Function: SCr 0.81 mg/dL, CrCl 41.15 ml/min Renal Function Trend: Stable Lab/Micro: Vancomycin Plan/Comments: Level was drawn 1.5 late due to patient being in surgery. Level is still therapeutic so we will continue the dose and retime accordingly. Pharmacy Service will continue to monitor and adjust dosing as required. Pending Level: 0230 09/03/2024 Follow-Up Labs Follow-Up Labs: Trough: Vancomycin Date/Time Labs Ordered Labs to be done on [date and time ordered]: 09/03/2024 @0230
--- NOTE | 2024-09-01 16:05 | CASEMGMT ---
Social Work SW received call from pt's dgt Odessa. Odessa states that she believes pt will need SNF stay at time of discharge. Per Odessa, pt lives in her home and pt's dgt Jessie and Jessie's boyfriend lives with pt. Jessie provides needed care for pt however, Jessie does work and pt stays at home with Jessie's boyfriend who has dementia. Odessa also states that pt and Jessie will be adamantly against SNF placement. Pt had been at [facility] recently and pt and Jessie chose for pt to leave. SW did remind Odessa that hospital staff can make recommendations of home vs SNF but pt has the right to make her own decision and pt's wishes will be followed if pt is of sound mind. Odessa states understanding of this. SW will follow up with pt after surgery and therapy to discuss dc plan. MERI King
[2024-09-01] MEDS: Insulin Lispro 100 UNIT/ML INSULN.PEN SC (16:55)
[2024-09-01 17:14] LABS: Bedside Glucose 201 mg/dL (74-106)
--- NOTE | 2024-09-01 17:15 | CASEMGMT ---
IKE MCKEON NOTE: RN CM to room. Pt resting in bed. DtrJessie, @ bedside. Discussed discharge planning. Pt and Jessie both state they would like pt to go back to [facility] @ discharge and decline wanting list of other SNF options. Pt and Jessie both state pt will not go anywhere else but TCU, stating she was @ [facility] in the past and had a bad experience and states does not want to go to a usp at all, only TCU for therapy. Explained the referral process, as [facility] would have to accept and unsure of bed availability at this time. Also made aware prior auth would be needed. Further questions answered. Adam VELAN IKE CM
--- NOTE | 2024-09-01 19:11 | POSTOPAN2_ITS ---
Anesthesia Postop Eval I Sum Postop Eval Completion status Anesthesia document: Postop Eval 1 completed: Yes Anesthesia Postop Eval I Summary Anesthesia Postop Eval I Summary: Anesthesia Postop Eval I: Assessment Summary Airway patent Yes 09/01/24 13:03 CAKE PRESS OPERATOR.[email or web address] Spontaneous unlabored Yes 09/01/24 13:03 CAKE PRESS OPERATOR.JDEF respirations Mental status Awake 09/01/24 13:03 CAKE PRESS OPERATOR.JDEF nausea No 09/01/24 13:03 CAKE PRESS OPERATOR.JDEF Vomiting No 09/01/24 13:03 CAKE PRESS OPERATOR.JDEF Anesthesia Postop Eval I: Fluid Summary Crystalloid volume administer 150 09/01/24 13:03 CAKE PRESS OPERATOR.JDEF (ml) Colloids volume administered ( ml) Blood Product volume administered (ml) Total IV fluid infused 150 09/01/24 13:03 CAKE PRESS OPERATOR.JDEF Anesthesia Postop Eval I: Summary Notes Anesthesia Complication No 09/01/24 13:03 CAKE PRESS OPERATOR.JDEF Anesthesia Complication Comment: Post-operative progress note Anesthesia: Postop Eval II Evaluation Mental status: Awake and Calm Pain Level: 1 nausea: No Vomiting: No
--- NOTE | 2024-09-01 19:11 | PCM.POSTANE2 ---
Anesthesia Postop Eval I Sum Postop Eval Completion status Anesthesia document: Postop Eval 1 completed: Yes Anesthesia Postop Eval I Summary Anesthesia Postop Eval I Summary: Anesthesia Postop Eval I: Assessment Summary Airway patent Yes 09/01/24 13:03 AUTO DAMAGE ESTIMATOR.JDEF Spontaneous unlabored Yes 09/01/24 13:03 AUTO DAMAGE ESTIMATOR.JDEF respirations Mental status Awake 09/01/24 13:03 AUTO DAMAGE ESTIMATOR.JDEF nausea No 09/01/24 13:03 AUTO DAMAGE ESTIMATOR.JDEF Vomiting No 09/01/24 13:03 AUTO DAMAGE ESTIMATOR.JDEF Anesthesia Postop Eval I: Fluid Summary Crystalloid volume administer 150 09/01/24 13:03 AUTO DAMAGE ESTIMATOR.JDEF (ml) Colloids volume administered ( ml) Blood Product volume administered (ml) Total IV fluid infused 150 09/01/24 13:03 AUTO DAMAGE ESTIMATOR.JDEF Anesthesia Postop Eval I: Summary Notes Anesthesia Complication No 09/01/24 13:03 AUTO DAMAGE ESTIMATOR.JDEF Anesthesia Complication Comment: Post-operative progress note Anesthesia: Postop Eval II Evaluation Mental status: Awake and Calm Pain Level: 1 nausea: No Vomiting: No
--- NOTE | 2024-09-01 19:18 | NURSING ---
Patient refused stop positive continuous pulse ox protocol.
[2024-09-01 21:10] LABS: Bedside Glucose 74 mg/dL (74-106)
[2024-09-01] MEDS: oxyCODONE 5 MG Tablet PO (23:53)
[2024-09-02] VITALS (7 sets, daily range): BP systolic 140–183; BP diastolic 46–77; PULSE 55–67; RESP 16–18; TEMP 36.5–36.8; O2SAT 96–98; BMI 19.9
[2024-09-02] MEDS: Vancomycin HCl 750 MG in 0.9% Normal Saline (250mL Bag) 250 ML 250 MG IV ×2 (03:17→14:52)
[2024-09-02] MEDS: Acetaminophen 500 MG Tablet 1000 MG PO ×3 (04:43→21:20)
[2024-09-02] MEDS: Metoprolol Tartrate 25 MG Tablet PO ×3 (04:44→21:21)
[2024-09-02] MEDS: oxyCODONE 5 MG Tablet PO ×4 (04:44→21:20)
[2024-09-02] MEDS: Ampicillin/Sulbactam 3 GM in 0.9% Normal Saline (100mL MB+) 100 ML IV ×3 (04:44→17:49)
[2024-09-02 05:10] LABS: Bedside Glucose 118 mg/dL (74-106)
[2024-09-02 05:21] LABS: Absolute Lymphocyte Count 2.48 X10^3/uL (0.83-4.51); Absolute Neutrophil Count 4.3 X10^3/uL (2.0-7.7); Basophil# 0.09 X10^3/uL; Basophil% 1.1 % (0-1); Eosinophil# 0.34 X10^3/uL; Eosinophils% 4.2 % (0-5); Hematocrit 31.6 % (37-47); Hemoglobin 10.3 g/dL (12.0-15.0); Lymphocyte # 2.48 X10^3/ul (0.83-4.51); Lymphocyte % 30.6 % (19-41); Mean Corp Hgb Conc 32.6 g/dL (32-36); Mean Corpuscular Hgb 29.2 pg (27.0-32.0); Mean Corpuscular Volume 89.5 fL (81-99); Mean Platelet Vol. 9.7 fl (6.2-12.0); Monocyte# 0.85 X10^3/uL; Monocyte% 10.5 % (0-10); NRBC Flagged by Analyzer 0 % (0-5); Neutrophil # 4.32 X10^3/uL (2.7-7.7); Neutrophil % 53.2 % (47-70); Platelet Count 344 K/mm3 (150-450); RBC Distribution Width CV 13.5 % (11.6-14.6); RBC Distribution Width SD 43.9 fl (35.1-43.9); Red Blood Count 3.53 M/mm3 (4.2-5.4); White Blood Count 8.1 K/mm3 (4.4-11.0)
[2024-09-02] MEDS: HYDROmorphone 1 MG/ML Syringe IV (05:36)
[2024-09-02 06:03] LABS: Anion Gap 11 (5-15); BUN 21 mg/dL (4-19); BUN/Creat Ratio 27.1 RATIO (10-20); Calcium,Total 8.7 mg/dL (7.6-11.0); Carbon Dioxide 20.7 mmol/L (21.0-32.0); Chloride 105 mmol/L (98-108); Creatinine, Serum 0.79 mg/dL (0.70-1.20); EST Glomerular Filtration Rate 72 (>60); Estimated Creatinine Clearance 41.67 ml/min (50-250); Glucose 119 mg/dL (70-99); Potassium 4.2 mmol/L (3.3-5.1); Sodium Level 137 mmol/L (133-145)
--- NOTE | 2024-09-02 07:25 | PCM.PN.SRG ---
Subjective Subjective I saw Sofia this afternoon. She reports some stinging pain around the surgical site in her foot but reports this has been well controlled with pain medication. No other complaints. Objective Data Objective Data Vital Signs: Vital Signs Temp Pulse Resp BP Pulse Ox O2 Del Method 97.9 F 61 16 157/77 H 98 Room Air 09/02/24 03:36 09/02/24 04:44 09/02/24 03:36 09/02/24 03:36 09/02/24 03:36 09/02/24 03:36 Oxygen Delivery Method Room Air Weight: 119 lb 11.376 oz Body Mass Index (BMI) 19.9 Intake & Output: Intake and Output for Last 24 Hours 08/31/24 09/01/24 09/02/24 23:59 23:59 23:59 Intake Total 1078 / 1078 1886 / 1886 489 / 489 Output Total 300 / 300 Balance 1078 / 1078 1586 / 1586 489 / 489 Medical Nutrition Assessment Dietitian: Malnutrition Criteria Met Start: 09/01/24 10:45 Freq: Status: Active Protocol: Document 09/01/24 10:45 RMA (Rec: 09/01/24 10:45 RMA [id number]) Nutrition Malnutrition Evidence of Yes Malnutrition Exists Malnutrition (severe Chronic ): Evidenced By Suboptimal Energy Intake (Moderate),Weight Loss (Severe ),Physical Changes (Moderate) Intake Problem Increased Nutrient Needs (specify) Etiology protein and amino acids to support wound healing Signs/Symptoms as evidenced by R foot diabetic ulcer Status Active Problem Clinical Problem Chronic Disease or Condition Related Malnutrition Etiology severe protein-calorie malnutrition in the context of chronic disease and debility related to advanced age and inadequate energy intake Signs/Symptoms as evidenced by ~10-12% unintentional weight loss x past 3-4 months, BMI 19.9 and mild to moderate muscle wasting and fat depletion in the clavicle, orbitals and temporal regions; PO meeting less than 75% estimated nutrition needs Status Active Problem Recommendation Dietitian Resume diet as tolerated s/p procedure to liberalized Recommendations/ carbohydrate-controlled (no caloric restriction). Changes Will continue 4 oz glucerna shake 3 times per day w/ medpass. Will continue fruit punch flavored Darci 2 times per day with breakfast and dinner to support wound healing. Trend weights as available and optimize ONS to support weight stability and wound healing. Lab / Micro Data 09/02/24 04:42 09/02/24 04:42 Labs: Laboratory Results - last 24 hr 09/01/24 08:53: PT 12.6, INR 0.9 09/01/24 13:49: Vancomycin Trough 17.4 H 09/01/24 16:54: POC Glucose 201 H 09/01/24 20:44: POC Glucose 74 09/02/24 04:42: WBC 8.1, RBC 3.53 L, Hgb 10.3 L, Hct 31.6 L, MCV 89.5, MCH 29.2, MCHC 32.6, RDW Std Deviation 43.9, RDW Coeff of Kathy 13.5, Plt Count 344, MPV 9.7, Immature Gran % (Auto) 0.400, Neut % (Auto) 53.2, Lymph % (Auto) 30.6, [place] % (Auto) 10.5 H, Eos % (Auto) 4.2, Baso % (Auto) 1.1 H, Absolute Neuts (auto) 4.3, Absolute Lymphs (auto) 2.48, Nucleated RBC % 0, Sodium 137, Potassium 4.2, Chloride 105, Carbon Dioxide 20.7 L, Anion Gap 11, BUN 21 H, Creatinine 0.79, Estim Creat Clear Calc 41.67 L, Est GFR (MDRD) Non-Af 72, BUN/Creatinine Ratio 27.1 H, Glucose 119 H, Calcium 8.7 09/02/24 04:50: POC Glucose 118 H Micro: Microbiology 08/27/24 11:35 Wound - Other Skin and Soft Tissue MRSA/MSSA (PCR - Final Physical Exam Const oriented x3 and no apparent distress Resp normal respiratory effort Cardio regular rate and regular rhythm Extremity Extremity Narrative: R foot with dressings/RAY wrap in place, C/D/I. Reviewed wound photos of amputation site, skin edges appear viable. Assessment & Plan Assessment/Plan (1) Atherosclerosis of [place] arteries of extremities with gangrene, right leg: PLAN: She is doing well after podiatry intervention yesterday; amputation site so far satisfactory in appearance. Scheduled for femoral-tibial bypass with possible iliac stenting 09/05.
[2024-09-02] MEDS: 0.9% Normal Saline (100mL Bag) 100 ML 15 ML IV (09:15)
[2024-09-02] MEDS: Clopidogrel Bisulfate 75 MG Tablet PO (09:29)
[2024-09-02] MEDS: amLODIPine 10 MG Tablet PO (09:29)
[2024-09-02] MEDS: Glucerna Shake 120 ML LIQUID PO (09:29)
[2024-09-02] MEDS: Lisinopril 10 MG Tablet PO (09:29)
[2024-09-02] MEDS: Aspirin E.C. 81 MG Tablet PO (09:29)
[2024-09-02] MEDS: Polyethylene Glycol 3350 17 GM PACKET PO (09:30)
--- NOTE | 2024-09-02 11:38 | PN_ITS ---
Subjective Subjective Denies pain denies constitutional symptoms no changes overnight Objective Data Objective Data Vital Signs: Vital Signs Temp Pulse Resp BP Pulse Ox O2 Del Method 97.7 F L 55 L 18 183/62 H 98 Room Air 09/02/24 08:42 09/02/24 08:42 09/02/24 08:42 09/02/24 08:42 09/02/24 08:42 09/02/24 08:42 Oxygen Delivery Method Room Air Weight: 54.3 kg Body Mass Index (BMI) 19.9 Intake & Output: Intake and Output for Last 24 Hours 08/31/24 09/01/24 09/02/24 23:59 23:59 23:59 Intake Total 1078 / 1078 1886 / 1886 489 / 489 Output Total 300 / 300 Balance 1078 / 1078 1586 / 1586 489 / 489 Medical Nutrition Assessment Dietitian: Malnutrition Criteria Met Start: 09/01/24 10:45 Freq: Status: Active Protocol: Document 09/01/24 10:45 RMA (Rec: 09/01/24 10:45 RMA [id number]) Nutrition Malnutrition Evidence of Yes Malnutrition Exists Malnutrition (severe Chronic ): Evidenced By Suboptimal Energy Intake (Moderate),Weight Loss (Severe ),Physical Changes (Moderate) Intake Problem Increased Nutrient Needs (specify) Etiology protein and amino acids to support wound healing Signs/Symptoms as evidenced by R foot diabetic ulcer Status Active Problem Clinical Problem Chronic Disease or Condition Related Malnutrition Etiology severe protein-calorie malnutrition in the context of chronic disease and debility related to advanced age and inadequate energy intake Signs/Symptoms as evidenced by ~10-12% unintentional weight loss x past 3-4 months, BMI 19.9 and mild to moderate muscle wasting and fat depletion in the clavicle, orbitals and temporal regions; PO meeting less than 75% estimated nutrition needs Status Active Problem Recommendation Dietitian Resume diet as tolerated s/p procedure to liberalized Recommendations/ carbohydrate-controlled (no caloric restriction). Changes Will continue 4 oz glucerna shake 3 times per day w/ medpass. Will continue fruit punch flavored Darci 2 times per day with breakfast and dinner to support wound healing. Trend weights as available and optimize ONS to support weight stability and wound healing. Lab / Micro Data 09/02/24 04:42 09/02/24 04:42 Labs: Laboratory Results - last 24 hr 09/01/24 13:49: Vancomycin Trough 17.4 H 09/01/24 16:54: POC Glucose 201 H 09/01/24 20:44: POC Glucose 74 09/02/24 04:42: WBC 8.1, RBC 3.53 L, Hgb 10.3 L, Hct 31.6 L, MCV 89.5, MCH 29.2, MCHC 32.6, RDW Std Deviation 43.9, RDW Coeff of Kathy 13.5, Plt Count 344, MPV 9.7, Immature Gran % (Auto) 0.400, Neut % (Auto) 53.2, Lymph % (Auto) 30.6, [place] % (Auto) 10.5 H, Eos % (Auto) 4.2, Baso % (Auto) 1.1 H, Absolute Neuts (auto) 4.3, Absolute Lymphs (auto) 2.48, Nucleated RBC % 0, Sodium 137, Potassium 4.2, Chloride 105, Carbon Dioxide 20.7 L, Anion Gap 11, BUN 21 H, Creatinine 0.79, E stim Creat Clear Calc 41.67 L, Est GFR (MDRD) Non-Af 72, BUN/Creatinine Ratio 27.1 H, Glucose 119 H, Calcium 8.7 09/02/24 04:50: POC Glucose 118 H Micro: Microbiology 08/27/24 11:35 Wound - Other Skin and Soft Tissue MRSA/MSSA (PCR - Final Physical Exam Narrative neurovascular status unchanged right hallux amputation site healing well. 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 (2) Osteomyelitis: QUALIFIERS: Osteomyelitis type: subacute Osteomyelitis location: foot Laterality: left Qualified Code(s): M86.272 - Subacute osteomyelitis, left ankle and foot
[2024-09-02] MEDS: Insulin Lispro 100 UNIT/ML INSULN.PEN SC (11:42)
--- NOTE | 2024-09-02 11:43 | WOUNDNOTE ---
wound photo: right foot
--- NOTE | 2024-09-02 11:43 | WOUNDNOTE ---
wound photo: right foot
[2024-09-02 12:09] LABS: Bedside Glucose 195 mg/dL (74-106)
--- NOTE | 2024-09-02 13:21 | PN.HOSP_ITS ---
Reason for Visit Reason for Visit: Diagnoses Type 2 diabetes mellitus with foot ulcer (08/27/24) Atherosclerosis of [place] arteries of extremities with gangrene, right leg (08/27/24) Other specified peripheral vascular diseases (08/27/24) Peripheral vascular disease, unspecified (08/27/24) Cellulitis of right lower limb (08/27/24) Non-pressure chronic ulcer of other part of unspecified foot with unspecified severity (08/27/24) Non-pressure chronic ulcer of other part of right foot with necrosis of bone (08/27/24) Subacute osteomyelitis, left ankle and foot (08/27/24) Osteomyelitis, unspecified (08/27/24) [employer] (current) use of insulin (08/27/24) Subjective Subjective Patient resting in bed, status post amputation, overall feeling well with no shortness of breath, has not had a bowel movement yet today but denies any abdominal pain, did have some pain in her foot that was relieved with pain medication Objective Data Objective Data Vital Signs: Vital Signs Temp Pulse Resp BP Pulse Ox O2 Del Method 97.7 F L 55 L 18 183/62 H 98 Room Air 09/02/24 08:42 09/02/24 08:42 09/02/24 08:42 09/02/24 08:42 09/02/24 08:42 09/02/24 08:42 Oxygen Delivery Method Room Air Weight: 54.3 kg Body Mass Index (BMI) 19.9 Intake & Output: Intake and Output for Last 24 Hours 08/31/24 09/01/24 09/02/24 23:59 23:59 23:59 Intake Total 1078 / 1078 1886 / 1886 638.5 / 638.5 Output Total 300 / 300 Balance 1078 / 1078 1586 / 1586 638.5 / 638.5 Medical Nutrition Assessment Dietitian: Malnutrition Criteria Met Start: 09/01/24 10:45 Freq: Status: Active Protocol: Document 09/01/24 10:45 RMA (Rec: 09/01/24 10:45 RMA [id number]) Nutrition Malnutrition Evidence of Yes Malnutrition Exists Malnutrition (severe Chronic ): Evidenced By Suboptimal Energy Intake (Moderate),Weight Loss (Severe ),Physical Changes (Moderate) Intake Problem Increased Nutrient Needs (specify) Etiology protein and amino acids to support wound healing Signs/Symptoms as evidenced by R foot diabetic ulcer Status Active Problem Clinical Problem Chronic Disease or Condition Related Malnutrition Etiology severe protein-calorie malnutrition in the context of chronic disease and debility related to advanced age and inadequate energy intake Signs/Symptoms as evidenced by ~10-12% unintentional weight loss x past 3-4 months, BMI 19.9 and mild to moderate muscle wasting and fat depletion in the clavicle, orbitals and temporal regions; PO meeting less than 75% estimated nutrition needs Status Active Problem Recommendation Dietitian Resume diet as tolerated s/p procedure to liberalized Recommendations/ carbohydrate-controlled (no caloric restriction). Changes Will continue 4 oz glucerna shake 3 times per day w/ medpass. Will continue fruit punch flavored Darci 2 times per day with breakfast and dinner to support wound healing. Trend weights as available and optimize ONS to support weight stability and wound healing. Lab / Micro Data 09/02/24 04:42 09/02/24 04:42 Labs: Laboratory Results - last 24 hr 09/01/24 13:49: Vancomycin Trough 17.4 H 09/01/24 16:54: POC Glucose 201 H 09/01/24 20:44: POC Glucose 74 09/02/24 04:42: WBC 8.1, RBC 3.53 L, Hgb 10.3 L, Hct 31.6 L, MCV 89.5, MCH 29.2, MCHC 32.6, RDW Std Deviation 43.9, RDW Coeff of Kathy 13.5, Plt Count 344, MPV 9.7, Immature Gran % (Auto) 0.400, Neut % (Auto) 53.2, Lymph % (Auto) 30.6, [place] % (Auto) 10.5 H, Eos % (Auto) 4.2, Baso % (Auto) 1.1 H, Absolute Neuts (auto) 4.3, Absolute Lymphs (auto) 2.48, Nucleated RBC % 0, Sodium 137, Potassium 4.2, Chloride 105, Carbon Dioxide 20.7 L, Anion Gap 11, BUN 21 H, Creatinine 0.79, E stim Creat Clear Calc 41.67 L, Est GFR (MDRD) Non-Af 72, BUN/Creatinine Ratio 27.1 H, Glucose 119 H, Calcium 8.7 09/02/24 04:50: POC Glucose 118 H 09/02/24 11:40: POC Glucose 195 H Micro: Microbiology 08/27/24 11:35 Wound - Other Skin and Soft Tissue MRSA/MSSA (PCR - Final Physical Exam Narrative General: Alert, oriented, no apparent distress HEENT: Atraumatic, normocephalic Eyes: Anicteric, normal conjunctiva, extraocular movements grossly intact Neck: Supple Respiratory: Clear to auscultation bilaterally, normal respiratory effort Cardiovascular: Regular rate and rhythm GI: Soft, nontender, nondistended Extremities: No edema Musculoskeletal: Moving all extremities Neuro: No overt focal neurological deficits Skin: Right foot wrapped, no soilage on dressing Psych: Cooperative Assessment & Plan Assessment/Plan (1) Cellulitis of foot, right: (2) Peripheral vascular disease: (3) Osteomyelitis of great toe of right foot: PLAN: Plan # Diabetic foot infection with right first toe osteomyelitis - Imaging obtained on admission consistent with osteomyelitis of right first toe - Patient on Unasyn - Podiatry, ID, vascular surgery consulted - Wound cultures obtained on admission positive for Staph aureus - Podiatry evaluating for possible right hallux amputation, likely tomorrow versus Thursday depending on or availability, podiatry note reviewed - Patient weightbearing to right heel, walker and surgical shoe -08/30: Plan for right hallux amputation this week -08/31: Will plan amputation tomorrow, will make n.p.o. at midnight, ID following, remains on vancomycin and Unasyn -09/01: Patient for amputation today -09/02: Patient's status post amputation and doing well, antibiotics continued, ID following # Peripheral arterial disease - Evaluated by vascular surgery - Patient is scheduled for tibial bypass 09/05 along with toe amputation - Pending OR availability bypass may be moved up - Appreciate vascular surgery recommendations - Patient on aspirin and Plavix -08/30: Discussed with vascular surgery, bypass will be planned for Thursday -09/01: Still plans for bypass on Thursday -09/02: Bypass per Thursday, supportive care #Hypertension - Patient on metoprolol and amlodipine - Patient has remained elevated with an a.m. systolic blood pressure of 187 on 08/29 - Will add lisinopril -08/30: Remains hypertensive, lisinopril increased -08/31: Blood pressure 152/42 today, just had lisinopril started and increased the patient have surgery tomorrow, hold off on further changes today but will continue to monitor -09/01: Patient hypertensive this morning but is going for surgery, will further evaluate and adjust medications tomorrow if applicable -09/02:Pt significantly HTN this AM, possibly in part d/t pain but will increase lisinopril as she has remained hypertensive Chronic medical problems and/or problems not being actively addressed during today's encounter: # Coronary artery disease - With previous PCI in 2017 and 2012 - Patient on aspirin and Plavix as well as beta-zahida - Patient not on statin due to myalgias with multiple agents #Type 2 diabetes mellitus -Glucose checks and sliding scale insulin #DVT ppx: Lovenox subcu Arely Marks MD Charges/Coding Visit Charges Inpatient E&M: 08497 Subs Hosp L1
--- NOTE | 2024-09-02 14:22 | PCM.PN.ID ---
Physical Exam Narrative Foot feeling ok, no fever, no n/v/d. Const alert and no apparent distress General Appearance: cooperative Resp normal air movement and clear to auscultation bilaterally Cardio regular rate and regular rhythm GI soft to palpation, non-tender and non-distended Skin Skin Narrative: foot wrapped ID ID: Route of nutrition/ use of supplements: [] Nutritional Intake: [] IV Site: [] White Catheter: [] Assessment & Plan Assessment/Plan (1) Osteomyelitis of great toe of right foot: PLAN: Cont vanc/unasyn, podiatry and vascular following. OR planned for Thursday with vascular. Will follow (2) Other specified peripheral vascular diseases:
[2024-09-02 17:05] LABS: Bedside Glucose 121 mg/dL (74-106)
[2024-09-02 21:55] LABS: Bedside Glucose 154 mg/dL (74-106)
[2024-09-03] VITALS (9 sets, daily range): BP systolic 150–169; BP diastolic 38–97; PULSE 56–66; RESP 15–16; TEMP 36.3–36.7; O2SAT 97–100
[2024-09-03] MEDS: Ampicillin/Sulbactam 3 GM in 0.9% Normal Saline (100mL MB+) 100 ML IV ×4 (00:01→18:42)
[2024-09-03 02:53] LABS: Absolute Lymphocyte Count 2.33 X10^3/uL (0.83-4.51); Absolute Neutrophil Count 5.5 X10^3/uL (2.0-7.7); Basophil# 0.07 X10^3/uL; Basophil% 0.8 % (0-1); Eosinophil# 0.23 X10^3/uL; Eosinophils% 2.6 % (0-5); Hematocrit 31.1 % (37-47); Hemoglobin 10.1 g/dL (12.0-15.0); Lymphocyte # 2.33 X10^3/ul (0.83-4.51); Mean Corp Hgb Conc 32.5 g/dL (32-36); Mean Corpuscular Hgb 29.2 pg (27.0-32.0); Mean Corpuscular Volume 89.9 fL (81-99); Mean Platelet Vol. 9.3 fl (6.2-12.0); Monocyte# 0.82 X10^3/uL; Monocyte% 9.1 % (0-10); NRBC Flagged by Analyzer 0 % (0-5); Neutrophil # 5.49 X10^3/uL (2.7-7.7); Neutrophil % 61.2 % (47-70); Platelet Count 325 K/mm3 (150-450); RBC Distribution Width CV 13.5 % (11.6-14.6); RBC Distribution Width SD 43.8 fl (35.1-43.9); Red Blood Count 3.46 M/mm3 (4.2-5.4)
[2024-09-03 03:15] LABS: Anion Gap 10 (5-15); BUN 33 mg/dL (4-19); Carbon Dioxide 23.7 mmol/L (21.0-32.0); Chloride 100 mmol/L (98-108); Creatinine, Serum 0.81 mg/dL (0.70-1.20); EST Glomerular Filtration Rate 69 (>60); Estimated Creatinine Clearance 41.23 ml/min (50-250); Glucose 134 mg/dL (70-99); Potassium 4.3 mmol/L (3.3-5.1); Sodium Level 134 mmol/L (133-145); Vancomycin, Trough Level 27.3 ug/mL (5.0-15.0)
--- NOTE | 2024-09-03 03:20 | PCM.RX.CS ---
Consult Antibiotic Management Pharmacy has been consulted to manage selected antibiotic: Vancomycin Type of Intervention Type of Consult: Follow-up Suspected Infection Suspected Infection: Osteomyelitis Labs Labs: Sodium 134 mmol/L (133-145) 09/03/24 02:42 Potassium 4.3 mmol/L (3.3-5.1) 09/03/24 02:42 Chloride 100 mmol/L (98-108) 09/03/24 02:42 Carbon Dioxide 23.7 mmol/L (21.0-32.0) 09/03/24 02:42 Anion Gap 10 (5-15) 09/03/24 02:42 BUN 33 mg/dL (4-19) H 09/03/24 02:42 Creatinine 0.81 mg/dL (0.70-1.20) 09/03/24 02:42 Est GFR (MDRD) Non-Af 69 (>60) 09/03/24 02:42 BUN/Creatinine Ratio 40.0 RATIO (10-20) H 09/03/24 02:42 Glucose 134 mg/dL (70-99) H 09/03/24 02:42 Vancomycin Trough 27.3 ug/mL (5.0-15.0) H 09/03/24 02:42 Microbiology Microbiology: Microbiology 09/01/24 Unknown Bone - Great Toe Gram Stain - Final 08/27/24 11:35 Wound - Other Skin and Soft Tissue MRSA/MSSA (PCR - Final Dosing Weight Weight used for dosin kg Estimated Creatinine Clearance Estimated Creatinine Clearance: 41 Goal Trough Goal Trough: 15-20 mcg/mL Pharmacy Plan for Drug Dosing Pharmacy Plan for Drug Dosing: Vancomycin trough level of 27.3, drawn 12hrs post-dose, was above the target range of 15-20. Will suspend current dosing and draw a random vancomycin level in 12 hours to determine further orders. Pharmacy Service will continue to monitor and adjust dosing as required. Follow-Up Labs Follow-Up Labs: Trough: Vancomycin (random) Date/Time Labs Ordered Labs to be done on [date and time ordered]: 09/03/24 @1500 (random)
[2024-09-03] MEDS: Metoprolol Tartrate 25 MG Tablet PO ×3 (03:44→21:46)
[2024-09-03] MEDS: Acetaminophen 500 MG Tablet 1000 MG PO ×3 (03:44→21:45)
[2024-09-03] MEDS: oxyCODONE 5 MG Tablet PO ×3 (03:45→21:45)
[2024-09-03 06:49] LABS: Bedside Glucose 110 mg/dL (74-106)
[2024-09-03] MEDS: Lisinopril 20 MG Tablet PO (07:52)
[2024-09-03] MEDS: Aspirin E.C. 81 MG Tablet PO (07:52)
[2024-09-03] MEDS: Polyethylene Glycol 3350 17 GM PACKET PO (07:53)
[2024-09-03] MEDS: amLODIPine 10 MG Tablet PO (07:53)
[2024-09-03] MEDS: Clopidogrel Bisulfate 75 MG Tablet PO (07:53)
[2024-09-03] MEDS: Glucerna Shake 120 ML LIQUID PO ×3 (07:57→17:14)
--- NOTE | 2024-09-03 08:48 | PCM.PN.HOSP ---
Reason for Visit Reason for Visit: Diagnoses Type 2 diabetes mellitus with foot ulcer (08/27/24) Atherosclerosis of [place] arteries of extremities with gangrene, right leg (08/27/24) Other specified peripheral vascular diseases (08/27/24) Peripheral vascular disease, unspecified (08/27/24) Cellulitis of right lower limb (08/27/24) Non-pressure chronic ulcer of other part of unspecified foot with unspecified severity (08/27/24) Non-pressure chronic ulcer of other part of right foot with necrosis of bone (08/27/24) Subacute osteomyelitis, left ankle and foot (08/27/24) Osteomyelitis, unspecified (08/27/24) [facility] (current) use of insulin (08/27/24) Subjective Subjective Patient sitting up in bed, no new or acute complaints, overall feeling well and reported she felt fairly well this morning in general Objective Data Objective Data Vital Signs: Vital Signs Temp Pulse Resp BP Pulse Ox O2 Del Method 97.9 F 65 16 150/65 H 98 Room Air 09/03/24 02:17 09/03/24 03:44 09/03/24 02:17 09/03/24 02:17 09/03/24 02:17 09/03/24 02:17 Oxygen Delivery Method Room Air Weight: 54.4 kg Body Mass Index (BMI) 20.0 Intake & Output: Intake and Output for Last 24 Hours 09/01/24 09/02/24 09/03/24 23:59 23:59 23:59 Intake Total 1886 / 1886 1070.50 / 1070.50 531.5 / 531.5 Output Total 300 / 300 Balance 1586 / 1586 1070.50 / 1070.50 531.5 / 531.5 Medical Nutrition Assessment Dietitian: Malnutrition Criteria Met Start: 09/01/24 10:45 Freq: Status: Active Protocol: Document 09/01/24 10:45 RMA (Rec: 09/01/24 10:45 RMA [id number]) Nutrition Malnutrition Evidence of Yes Malnutrition Exists Malnutrition (severe Chronic ): Evidenced By Suboptimal Energy Intake (Moderate),Weight Loss (Severe ),Physical Changes (Moderate) Intake Problem Increased Nutrient Needs (specify) Etiology protein and amino acids to support wound healing Signs/Symptoms as evidenced by R foot diabetic ulcer Status Active Problem Clinical Problem Chronic Disease or Condition Related Malnutrition Etiology severe protein-calorie malnutrition in the context of chronic disease and debility related to advanced age and inadequate energy intake Signs/Symptoms as evidenced by ~10-12% unintentional weight loss x past 3-4 months, BMI 19.9 and mild to moderate muscle wasting and fat depletion in the clavicle, orbitals and temporal regions; PO meeting less than 75% estimated nutrition needs Status Active Problem Recommendation Dietitian Resume diet as tolerated s/p procedure to liberalized Recommendations/ carbohydrate-controlled (no caloric restriction). Changes Will continue 4 oz glucerna shake 3 times per day w/ medpass. Will continue fruit punch flavored Darci 2 times per day with breakfast and dinner to support wound healing. Trend weights as available and optimize ONS to support weight stability and wound healing. Lab / Micro Data 09/03/24 02:42 09/03/24 02:42 Labs: Laboratory Results - last 24 hr 09/02/24 11:40: POC Glucose 195 H 09/02/24 16:44: POC Glucose 121 H 09/02/24 21:23: POC Glucose 154 H 09/03/24 02:42: WBC 9.0, RBC 3.46 L, Hgb 10.1 L, Hct 31.1 L, MCV 89.9, MCH 29.2, MCHC 32.5, RDW Std Deviation 43.8, RDW Coeff of Kathy 13.5, Plt Count 325, MPV 9.3, Immature Gran % (Auto) 0.300, Neut % (Auto) 61.2, Lymph % (Auto) 26.0, [place] % (Auto) 9.1, Eos % (Auto) 2.6, Baso % (Auto) 0.8, Absolute Neuts (auto) 5.5, Absolute Lymphs (auto) 2.33, Nucleated RBC % 0, Sodium 134, Potassium 4.3, Chloride 100, Carbon Dioxide 23.7, Anion Gap 10, BUN 33 H, Creatinine 0.81, Estim Creat Clear Calc 41.23 L, Est GFR (MDRD) Non-Af 69, BUN/Creatinine Ratio 40.0 H, Glucose 134 H, Calcium 9.0, Vancomycin Trough 27.3 H 09/03/24 06:29: POC Glucose 110 H Micro: Microbiology 09/01/24 Unknown Bone - Great Toe Gram Stain - Final 09/01/24 Unknown Bone - Great Toe Wound Culture - Preliminary Staphylococcus species 08/27/24 11:35 Wound - Other Skin and Soft Tissue MRSA/MSSA (PCR - Final Physical Exam Narrative General: Alert, oriented, no apparent distress HEENT: Atraumatic, normocephalic Eyes: extraocular movements grossly intact Neck: Supple Respiratory: normal respiratory effort Cardiovascular: no edema appreciated GI: nondistended Extremities: Moving all extremities Neuro: No overt focal neurological deficits Psych: Cooperative Assessment & Plan Assessment/Plan (1) Cellulitis of foot, right: (2) Peripheral vascular disease: (3) Osteomyelitis of great toe of right foot: PLAN: Plan # Diabetic foot infection with right first toe osteomyelitis - Imaging obtained on admission consistent with osteomyelitis of right first toe - Patient on Unasyn - Podiatry, ID, vascular surgery consulted - Wound cultures obtained on admission positive for Staph aureus - Podiatry evaluating for possible right hallux amputation, likely tomorrow versus Thursday depending on or availability, podiatry note reviewed - Patient weightbearing to right heel, walker and surgical shoe -08/30: Plan for right hallux amputation this week -08/31: Will plan amputation tomorrow, will make n.p.o. at midnight, ID following, remains on vancomycin and Unasyn -09/01: Patient for amputation today -09/02: Patient's status post amputation and doing well, antibiotics continued, ID following -09/03: Infectious disease following, patient continued on vancomycin and Unasyn, intraoperative cultures thus far growing staph, podiatry to see again this coming week, patient can transfer with heel weightbearing in surgical shoe assisted by walker # Peripheral arterial disease - Evaluated by vascular surgery - Patient is scheduled for tibial bypass 09/05 along with toe amputation - Pending OR availability bypass may be moved up - Appreciate vascular surgery recommendations - Patient on aspirin and Plavix -08/30: Discussed with vascular surgery, bypass will be planned for Thursday -09/01: Still plans for bypass on Thursday -09/02: Bypass per Thursday, supportive care -09/03: Continue present management with plans still for bypass Thursday vascular surgery #Hypertension - Patient on metoprolol and amlodipine - Patient has remained elevated with an a.m. systolic blood pressure of 187 on 08/29 - Will add lisinopril -08/30: Remains hypertensive, lisinopril increased -08/31: Blood pressure 152/42 today, just had lisinopril started and increased the patient have surgery tomorrow, hold off on further changes today but will continue to monitor -09/01: Patient hypertensive this morning but is going for surgery, will further evaluate and adjust medications tomorrow if applicable -09/02:Pt significantly HTN this AM, possibly in part d/t pain but will increase lisinopril as she has remained hypertensive -09/03: Patient has had multiple medication adjustments, will continue course for today and can always consider further adjustments moving forward Chronic medical problems and/or problems not being actively addressed during today's encounter: # Coronary artery disease - With previous PCI in 2017 and 2011 - Patient on aspirin and Plavix as well as beta-zahida - Patient not on statin due to myalgias with multiple agents #Type 2 diabetes mellitus -Glucose checks and sliding scale insulin #DVT ppx: Lovenox subcu Arely Marks MD Charges/Coding Visit Charges Inpatient E&M: 90144 Subs Hosp L1
[2024-09-03] MEDS: 0.9% Saline Lock 10 ML Syringe IV ×2 (11:20→17:12)
[2024-09-03 11:35] LABS: Bedside Glucose 140 mg/dL (74-106)
[2024-09-03 16:03] LABS: Bedside Glucose 121 mg/dL (74-106)
[2024-09-03 16:29] LABS: Vancomycin, Random Level 13.9 ug/mL (0.0-15.0)
--- NOTE | 2024-09-03 16:54 | PCM.RX.CS ---
Consult Antibiotic Management Pharmacy has been consulted to manage selected antibiotic: Vancomycin Type of Intervention Type of Consult: Follow-up Labs Labs: Sodium 134 mmol/L (133-145) 09/03/24 02:42 Potassium 4.3 mmol/L (3.3-5.1) 09/03/24 02:42 Chloride 100 mmol/L (98-108) 09/03/24 02:42 Carbon Dioxide 23.7 mmol/L (21.0-32.0) 09/03/24 02:42 Anion Gap 10 (5-15) 09/03/24 02:42 BUN 33 mg/dL (4-19) H 09/03/24 02:42 Creatinine 0.81 mg/dL (0.70-1.20) 09/03/24 02:42 Est GFR (MDRD) Non-Af 69 (>60) 09/03/24 02:42 BUN/Creatinine Ratio 40.0 RATIO (10-20) H 09/03/24 02:42 Glucose 134 mg/dL (70-99) H 09/03/24 02:42 Vancomycin Trough 27.3 ug/mL (5.0-15.0) H 09/03/24 02:42 Random Vancomycin 13.9 ug/mL (0.0-15.0) 09/03/24 15:11 Microbiology Microbiology: Microbiology 09/01/24 Unknown Bone - Great Toe Gram Stain - Final 09/01/24 Unknown Bone - Great Toe Wound Culture - Preliminary Staphylococcus species 08/27/24 11:35 Wound - Other Skin and Soft Tissue MRSA/MSSA (PCR - Final Goal Trough Goal Trough: 15-20 mcg/mL Pharmacy Plan for Drug Dosing Pharmacy Plan for Drug Dosing: VANCOMYCIN LEVEL RECEIVED Current Vancomycin Dose: ON HOLD- last dose was 09/02 @1452 Number of Doses Received: several Vancomycin Level: 13.9 Hours Since Last Dose: 24.25hr level Renal Function: 0.81 Renal Function Trend: stable Lab/Micro: Wcx growing staph spp. Vancomycin Plan/Comments: Patient had a random trough drawn after a previously elevated trough of 27.3 earlier. The random trough resulted in a value of 13.9 (goal 15-20). Now that trough is below 20, will resume vancomycin. Will start the patient on 1000g IV x1 to start 09/03/24 @1700 Pending Level: 09/05/24 @1630, prior to 3rd total dose per policy Pharmacy Service will continue to monitor and adjust dosing as required.
[2024-09-03] MEDS: Vancomycin IV 1,000 MG/200 ML BAG 200 MG IV (17:10)
[2024-09-03 22:37] LABS: Bedside Glucose 115 mg/dL (74-106)
[2024-09-04] VITALS (10 sets, daily range): BP systolic 121–193; BP diastolic 33–61; PULSE 52–64; RESP 15–18; TEMP 36.3–36.6; O2SAT 97–100; BMI 19.9
[2024-09-04] MEDS: Ampicillin/Sulbactam 3 GM in 0.9% Normal Saline (100mL MB+) 100 ML IV ×4 (00:36→18:48)
[2024-09-04 06:05] LABS: Absolute Lymphocyte Count 2.24 X10^3/uL (0.83-4.51); Absolute Neutrophil Count 4.5 X10^3/uL (2.0-7.7); Basophil# 0.05 X10^3/uL; Basophil% 0.6 % (0-1); Eosinophil# 0.29 X10^3/uL; Eosinophils% 3.7 % (0-5); Hematocrit 29.4 % (37-47); Hemoglobin 9.6 g/dL (12.0-15.0); Lymphocyte # 2.24 X10^3/ul (0.83-4.51); Lymphocyte % 28.4 % (19-41); Mean Corp Hgb Conc 32.7 g/dL (32-36); Mean Corpuscular Hgb 28.9 pg (27.0-32.0); Mean Corpuscular Volume 88.6 fL (81-99); Mean Platelet Vol. 9.8 fl (6.2-12.0); Monocyte% 10.1 % (0-10); NRBC Flagged by Analyzer 0 % (0-5); Neutrophil # 4.49 X10^3/uL (2.7-7.7); Neutrophil % 56.9 % (47-70); Platelet Count 330 K/mm3 (150-450); RBC Distribution Width CV 13.4 % (11.6-14.6); RBC Distribution Width SD 43.4 fl (35.1-43.9); Red Blood Count 3.32 M/mm3 (4.2-5.4); White Blood Count 7.9 K/mm3 (4.4-11.0)
[2024-09-04] MEDS: Acetaminophen 500 MG Tablet 1000 MG PO ×3 (06:21→21:15)
[2024-09-04] MEDS: Metoprolol Tartrate 25 MG Tablet PO ×3 (06:21→21:14)
[2024-09-04 06:45] LABS: Bedside Glucose 108 mg/dL (74-106)
[2024-09-04 06:56] LABS: Anion Gap 9 (5-15); BUN 26 mg/dL (4-19); BUN/Creat Ratio 37.2 RATIO (10-20); Calcium,Total 8.8 mg/dL (7.6-11.0); Carbon Dioxide 21.6 mmol/L (21.0-32.0); Chloride 105 mmol/L (98-108); EST Glomerular Filtration Rate 83 (>60); Estimated Creatinine Clearance 41.74 ml/min (50-250); Glucose 109 mg/dL (70-99); Potassium 3.9 mmol/L (3.3-5.1); Sodium Level 136 mmol/L (133-145)
[2024-09-04] MEDS: Aspirin E.C. 81 MG Tablet PO (07:28)
[2024-09-04] MEDS: Clopidogrel Bisulfate 75 MG Tablet PO (07:28)
[2024-09-04] MEDS: Polyethylene Glycol 3350 17 GM PACKET PO (07:28)
[2024-09-04] MEDS: Lisinopril 20 MG Tablet PO (07:28)
[2024-09-04] MEDS: amLODIPine 10 MG Tablet PO (07:28)
[2024-09-04] MEDS: Glucerna Shake 120 ML LIQUID PO ×3 (07:31→17:07)
--- NOTE | 2024-09-04 08:27 | PCM.PN.HOSP ---
Reason for Visit Reason for Visit: Diagnoses Type 2 diabetes mellitus with foot ulcer (08/27/24) Atherosclerosis of [place] arteries of extremities with gangrene, right leg (08/27/24) Other specified peripheral vascular diseases (08/27/24) Peripheral vascular disease, unspecified (08/27/24) Cellulitis of right lower limb (08/27/24) Non-pressure chronic ulcer of other part of unspecified foot with unspecified severity (08/27/24) Non-pressure chronic ulcer of other part of right foot with necrosis of bone (08/27/24) Subacute osteomyelitis, left ankle and foot (08/27/24) Osteomyelitis, unspecified (08/27/24) 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 (08/27/24) Subjective Subjective Patient sitting up in chair, reports that she had a bowel movement earlier, no new or acute complaints Objective Data Objective Data Vital Signs: Vital Signs Temp Pulse Resp BP Pulse Ox O2 Del Method O2 Flow Rate 97.5 F L 60 16 171/52 H 99 Room Air 2 09/04/24 07:58 09/04/24 07:58 09/04/24 07:58 09/04/24 07:58 09/04/24 07:58 09/04/24 07:58 09/03/24 21:00 Oxygen Flow Rate (L/min) 2 Oxygen Delivery Method Room Air Weight: 54.4 kg Body Mass Index (BMI) 20.0 Intake & Output: Intake and Output for Last 24 Hours 09/02/24 09/03/24 09/04/24 23:59 23:59 23:59 Intake Total 1070.50 / 1070.50 1605.5 / 1605.5 224 / 224 Balance 1070.50 / 1070.50 1605.5 / 1605.5 224 / 224 Medical Nutrition Assessment Dietitian: Malnutrition Criteria Met Start: 09/01/24 10:45 Freq: Status: Active Protocol: Document 09/01/24 10:45 RMA (Rec: 09/01/24 10:45 RMA [id number]) Nutrition Malnutrition Evidence of Yes Malnutrition Exists Malnutrition (severe Chronic ): Evidenced By Suboptimal Energy Intake (Moderate),Weight Loss (Severe ),Physical Changes (Moderate) Intake Problem Increased Nutrient Needs (specify) Etiology protein and amino acids to support wound healing Signs/Symptoms as evidenced by R foot diabetic ulcer Status Active Problem Clinical Problem Chronic Disease or Condition Related Malnutrition Etiology severe protein-calorie malnutrition in the context of chronic disease and debility related to advanced age and inadequate energy intake Signs/Symptoms as evidenced by ~10-12% unintentional weight loss x past 3-4 months, BMI 19.9 and mild to moderate muscle wasting and fat depletion in the clavicle, orbitals and temporal regions; PO meeting less than 75% estimated nutrition needs Status Active Problem Recommendation Dietitian Resume diet as tolerated s/p procedure to liberalized Recommendations/ carbohydrate-controlled (no caloric restriction). Changes Will continue 4 oz glucerna shake 3 times per day w/ medpass. Will continue fruit punch flavored Darci 2 times per day with breakfast and dinner to support wound healing. Trend weights as available and optimize ONS to support weight stability and wound healing. Lab / Micro Data 09/04/24 05:15 09/04/24 05:15 Labs: Laboratory Results - last 24 hr 09/03/24 11:16: POC Glucose 140 H 09/03/24 15:11: Random Vancomycin 13.9 09/03/24 15:42: POC Glucose 121 H 09/03/24 22:18: POC Glucose 115 H 09/04/24 05:15: WBC 7.9, RBC 3.32 L, Hgb 9.6 L, Hct 29.4 L, MCV 88.6, MCH 28.9, MCHC 32.7, RDW Std Deviation 43.4, RDW Coeff of Kathy 13.4, Plt Count 330, MPV 9.8, Immature Gran % (Auto) 0.300, Neut % (Auto) 56.9, Lymph % (Auto) 28.4, [place] % (Auto) 10.1 H, Eos % (Auto) 3.7, Baso % (Auto) 0.6, Absolute Neuts (auto) 4.5, Absolute Lymphs (auto) 2.24, Nucleated RBC % 0, Sodium 136, Potassium 3.9, Chloride 105, Carbon Dioxide 21.6, Anion Gap 9, BUN 26 H, Creatinine 0.70, Estim Creat Clear Calc 41.74 L, Est GFR (MDRD) Non-Af 83, BUN/Creatinine Ratio 37.2 H, Glucose 109 H, Calcium 8.8 09/04/24 06:16: POC Glucose 108 H Micro: Microbiology 09/01/24 Unknown Bone - Great Toe Gram Stain - Final 09/01/24 Unknown Bone - Great Toe Wound Culture - Final Coag Negative Staph 08/27/24 11:35 Wound - Other Skin and Soft Tissue MRSA/MSSA (PCR - Final Physical Exam Narrative General: Alert, answers questions appropriately, no apparent distress HEENT: Atraumatic, normocephalic Eyes: Anicteric, normal conjunctiva, extraocular movements grossly intact Neck: Supple Respiratory: Clear to auscultation bilaterally, normal respiratory effort Cardiovascular: Regular rate and rhythm GI: Soft, nontender, nondistended Extremities: No edema Musculoskeletal: Moving all extremities Neuro: No overt focal neurological deficits Skin: Right foot wrapped Psych: Cooperative Assessment & Plan Assessment/Plan (1) Cellulitis of foot, right: (2) Peripheral vascular disease: (3) Osteomyelitis of great toe of right foot: PLAN: Plan # Diabetic foot infection with right first toe osteomyelitis - Imaging obtained on admission consistent with osteomyelitis of right first toe - Patient on Unasyn - Podiatry, ID, vascular surgery consulted - Wound cultures obtained on admission positive for Staph aureus - Podiatry evaluating for possible right hallux amputation, likely tomorrow versus Thursday depending on or availability, podiatry note reviewed - Patient weightbearing to right heel, walker and surgical shoe -08/30: Plan for right hallux amputation this week -08/31: Will plan amputation tomorrow, will make n.p.o. at midnight, ID following, remains on vancomycin and Unasyn -09/01: Patient for amputation today -09/02: Patient's status post amputation and doing well, antibiotics continued, ID following -09/03: Infectious disease following, patient continued on vancomycin and Unasyn, intraoperative cultures thus far growing staph, podiatry to see again this coming week, patient can transfer with heel weightbearing in surgical shoe assisted by walker -09/04: ID and podiatry to follow further this week # Peripheral arterial disease - Evaluated by vascular surgery - Patient is scheduled for tibial bypass 09/05 along with toe amputation - Pending OR availability bypass may be moved up - Appreciate vascular surgery recommendations - Patient on aspirin and Plavix -08/30: Discussed with vascular surgery, bypass will be planned for Thursday -09/01: Still plans for bypass on Thursday -09/02: Bypass per Thursday, supportive care -09/03: Continue present management with plans still for bypass Thursday vascular surgery -09/04: Surgery planned 09/05, patient is n.p.o. at midnight #Hypertension - Patient on metoprolol and amlodipine - Patient has remained elevated with an a.m. systolic blood pressure of 187 on 08/29 - Will add lisinopril -08/30: Remains hypertensive, lisinopril increased -08/31: Blood pressure 152/42 today, just had lisinopril started and increased the patient have surgery tomorrow, hold off on further changes today but will continue to monitor -09/01: Patient hypertensive this morning but is going for surgery, will further evaluate and adjust medications tomorrow if applicable -09/02:Pt significantly HTN this AM, possibly in part d/t pain but will increase lisinopril as she has remained hypertensive -09/03: Patient has had multiple medication adjustments, will continue course for today and can always consider further adjustments moving forward -09/04: Elevated again this a.m. but patient going for surgery in the morning, will need better control over the long-term but patient has remained roughly the same despite multiple medication changes, did seem to worsen after surgery however and patient has complained of some pain so this may be in part that Chronic medical problems and/or problems not being actively addressed during today's encounter: # Coronary artery disease - With previous PCI in 2017 and 2011 - Patient on aspirin and Plavix as well as beta-zahida - Patient not on statin due to myalgias with multiple agents #Type 2 diabetes mellitus -Glucose checks and sliding scale insulin #DVT ppx: SCDs Arely Marks MD Charges/Coding Visit Charges Inpatient E&M: 89353 Subs Hosp L1
[2024-09-04] MEDS: Insulin Lispro 100 UNIT/ML INSULN.PEN SC ×2 (11:03→15:55)
[2024-09-04 11:36] LABS: Bedside Glucose 168 mg/dL (74-106)
--- NOTE | 2024-09-04 12:32 | PN.SURG_ITS ---
Subjective Subjective I saw Rukhsana sitting up in the bedside chair eating lunch this afternoon. She had a few questions about surgery tomorrow, mostly about length of surgery and activity limitations postop, which were answered to her satisfaction, she remains agreeable to proceed. She has no complaints. Objective Data Objective Data Vital Signs: Vital Signs Temp Pulse Resp BP Pulse Ox O2 Del Method O2 Flow Rate 97.3 F L 63 16 150/33 H 99 Room Air 2 09/04/24 12:07 09/04/24 12:07 09/04/24 12:07 09/04/24 12:07 09/04/24 12:07 09/04/24 12:07 09/03/24 21:00 Oxygen Flow Rate (L/min) 2 Oxygen Delivery Method Room Air Weight: 119 lb 14.903 oz Body Mass Index (BMI) 20.0 Intake & Output: Intake and Output for Last 24 Hours 09/02/24 09/03/24 09/04/24 23:59 23:59 23:59 Intake Total 1070.50 / 1070.50 1605.5 / 1605.5 586 / 586 Balance 1070.50 / 1070.50 1605.5 / 1605.5 586 / 586 Medical Nutrition Assessment Dietitian: Malnutrition Criteria Met Start: 09/01/24 10:45 Freq: Status: Active Protocol: Document 09/01/24 10:45 RMA (Rec: 09/01/24 10:45 RMA [id number]) Nutrition Malnutrition Evidence of Yes Malnutrition Exists Malnutrition (severe Chronic ): Evidenced By Suboptimal Energy Intake (Moderate),Weight Loss (Severe ),Physical Changes (Moderate) Intake Problem Increased Nutrient Needs (specify) Etiology protein and amino acids to support wound healing Signs/Symptoms as evidenced by R foot diabetic ulcer Status Active Problem Clinical Problem Chronic Disease or Condition Related Malnutrition Etiology severe protein-calorie malnutrition in the context of chronic disease and debility related to advanced age and inadequate energy intake Signs/Symptoms as evidenced by ~10-12% unintentional weight loss x past 3-4 months, BMI 19.9 and mild to moderate muscle wasting and fat depletion in the clavicle, orbitals and temporal regions; PO meeting less than 75% estimated nutrition needs Status Active Problem Recommendation Dietitian Resume diet as tolerated s/p procedure to liberalized Recommendations/ carbohydrate-controlled (no caloric restriction). Changes Will continue 4 oz glucerna shake 3 times per day w/ medpass. Will continue fruit punch flavored Darci 2 times per day with breakfast and dinner to support wound healing. Trend weights as available and optimize ONS to support weight stability and wound healing. Lab / Micro Data 09/04/24 05:15 09/04/24 05:15 Labs: Laboratory Results - last 24 hr 09/03/24 15:11: Random Vancomycin 13.9 09/03/24 15:42: POC Glucose 121 H 09/03/24 22:18: POC Glucose 115 H 09/04/24 05:15: WBC 7.9, RBC 3.32 L, Hgb 9.6 L, Hct 29.4 L, MCV 88.6, MCH 28.9, MCHC 32.7, RDW Std Deviation 43.4, RDW Coeff of Kathy 13.4, Plt Count 330, MPV 9.8, Immature Gran % (Auto) 0.300, Neut % (Auto) 56.9, Lymph % (Auto) 28.4, [place] % (Auto) 10.1 H, Eos % (Auto) 3.7, Baso % (Auto) 0.6, Absolute Neuts (auto) 4.5, Absolute Lymphs (auto) 2.24, Nucleated RBC % 0, Sodium 136, Potassium 3.9, Chloride 105, Carbon Dioxide 21.6, Anion Gap 9, BUN 26 H, Creatinine 0.70, Estim Creat Clear Calc 41.74 L, Est GFR (MDRD) Non-Af 83, BUN/Creatinine Ratio 37.2 H, Glucose 109 H, Calcium 8.8 09/04/24 06:16: POC Glucose 108 H 09/04/24 11:02: POC Glucose 168 H Micro: Microbiology 09/01/24 Unknown Bone - Great Toe Gram Stain - Final 09/01/24 Unknown Bone - Great Toe Wound Culture - Final Coag Negative Staph 09/01/24 Unknown Bone - Great Toe Anaerobic Culture - Preliminary 08/27/24 11:35 Wound - Other Skin and Soft Tissue MRSA/MSSA (PCR - Final Physical Exam Const oriented x3 and no apparent distress Resp normal respiratory effort Cardio regular rate and regular rhythm Extremity Extremity Narrative: R foot with dressings/RAY wrap in place, C/D/I. Reviewed wound photos of amputation site, skin edges appear viable. Assessment & Plan Assessment/Plan (1) Atherosclerosis of [place] arteries of extremities with gangrene, right leg: PLAN: She will be to OR for femoral-tibial bypass with possible iliac stenting tomorrow morning. She remains agreeable to proceed. NPO after midnight. Continue ASA and Plavix. Charges/Coding Visit Charges Inpatient E&M: 10024 Subs Hosp L1
[2024-09-04 16:20] LABS: Bedside Glucose 177 mg/dL (74-106)
[2024-09-04] MEDS: Vancomycin IV 1,000 MG/200 ML BAG 200 MG IV (17:09)
[2024-09-04] MEDS: oxyCODONE 5 MG Tablet PO (21:14)
[2024-09-04 23:11] LABS: Bedside Glucose 131 mg/dL (74-106)
[2024-09-05] VITALS (23 sets, daily range): BP systolic 51–189; BP diastolic 26–85; PULSE 59–104; RESP 12–88; TEMP 36.2–36.6; O2SAT 92–100
[2024-09-05] MEDS: Ampicillin/Sulbactam 3 GM in 0.9% Normal Saline (100mL MB+) 100 ML IV ×3 (00:34→18:48)
[2024-09-05 05:34] LABS: Absolute Lymphocyte Count 2.21 X10^3/uL (0.83-4.51); Absolute Neutrophil Count 3.7 X10^3/uL (2.0-7.7); Basophil# 0.07 X10^3/uL; Eosinophil# 0.33 X10^3/uL; Eosinophils% 4.6 % (0-5); Hemoglobin 9.9 g/dL (12.0-15.0); Lymphocyte # 2.21 X10^3/ul (0.83-4.51); Lymphocyte % 30.5 % (19-41); Mean Corpuscular Hgb 29.3 pg (27.0-32.0); Mean Corpuscular Volume 88.8 fL (81-99); Mean Platelet Vol. 9.9 fl (6.2-12.0); Monocyte# 0.93 X10^3/uL; Monocyte% 12.8 % (0-10); NRBC Flagged by Analyzer 0 % (0-5); Neutrophil # 3.68 X10^3/uL (2.7-7.7); Neutrophil % 50.8 % (47-70); Platelet Count 351 K/mm3 (150-450); RBC Distribution Width CV 13.5 % (11.6-14.6); RBC Distribution Width SD 43.6 fl (35.1-43.9); Red Blood Count 3.38 M/mm3 (4.2-5.4); White Blood Count 7.2 K/mm3 (4.4-11.0)
[2024-09-05 06:02] LABS: Anion Gap 9 (5-15); BUN 32 mg/dL (4-19); BUN/Creat Ratio 41.2 RATIO (10-20); Chloride 104 mmol/L (98-108); Creatinine, Serum 0.77 mg/dL (0.70-1.20); EST Glomerular Filtration Rate 75 (>60); Estimated Creatinine Clearance 41.74 ml/min (50-250); Glucose 122 mg/dL (70-99); Potassium 4.2 mmol/L (3.3-5.1); Sodium Level 137 mmol/L (133-145)
[2024-09-05] MEDS: Metoprolol Tartrate 25 MG Tablet PO (06:57)
[2024-09-05 07:10] LABS: Bedside Glucose 117 mg/dL (74-106)
--- NOTE | 2024-09-05 08:39 | PN.HOSP_ITS ---
Subjective Subjective Doing well, waiting for vascular intervention today. Objective Data Objective Data Vital Signs: Vital Signs Temp Pulse Resp BP Pulse Ox O2 Del Method O2 Flow Rate 97.5 F L 65 18 187/61 H 100 Room Air 2 09/04/24 21:07 09/05/24 06:57 09/04/24 21:07 09/04/24 21:14 09/05/24 08:22 09/05/24 08:22 09/03/24 21:00 Oxygen Flow Rate (L/min) 2 Oxygen Delivery Method Room Air Weight: 119 lb 14.903 oz Body Mass Index (BMI) 19.9 Intake & Output: Intake and Output for Last 24 Hours 09/04/24 09/05/24 09/06/24 03:59 03:59 03:59 Intake Total 1305.5 / 1305.5 1248 / 1248 Balance 1305.5 / 1305.5 1248 / 1248 Medical Nutrition Assessment Dietitian: Malnutrition Criteria Met Start: 09/01/24 10:45 Freq: Status: Active Protocol: Document 09/01/24 10:45 RMA (Rec: 09/01/24 10:45 RMA [id number]) Nutrition Malnutrition Evidence of Yes Malnutrition Exists Malnutrition (severe Chronic ): Evidenced By Suboptimal Energy Intake (Moderate),Weight Loss (Severe ),Physical Changes (Moderate) Intake Problem Increased Nutrient Needs (specify) Etiology protein and amino acids to support wound healing Signs/Symptoms as evidenced by R foot diabetic ulcer Status Active Problem Clinical Problem Chronic Disease or Condition Related Malnutrition Etiology severe protein-calorie malnutrition in the context of chronic disease and debility related to advanced age and inadequate energy intake Signs/Symptoms as evidenced by ~10-12% unintentional weight loss x past 3-4 months, BMI 19.9 and mild to moderate muscle wasting and fat depletion in the clavicle, orbitals and temporal regions; PO meeting less than 75% estimated nutrition needs Status Active Problem Recommendation Dietitian Resume diet as tolerated s/p procedure to liberalized Recommendations/ carbohydrate-controlled (no caloric restriction). Changes Will continue 4 oz glucerna shake 3 times per day w/ medpass. Will continue fruit punch flavored Darci 2 times per day with breakfast and dinner to support wound healing. Trend weights as available and optimize ONS to support weight stability and wound healing. Lab / Micro Data 09/05/24 05:08 09/05/24 05:08 Labs: Laboratory Results - last 24 hr 09/04/24 11:02: POC Glucose 168 H 09/04/24 15:51: POC Glucose 177 H 09/04/24 22:31: POC Glucose 131 H 09/05/24 05:08: WBC 7.2, RBC 3.38 L, Hgb 9.9 L, Hct 30.0 L, MCV 88.8, MCH 29.3, MCHC 33.0, RDW Std Deviation 43.6, RDW Coeff of Kathy 13.5, Plt Count 351, MPV 9.9, Immature Gran % (Auto) 0.300, Neut % (Auto) 50.8, Lymph % (Auto) 30.5, [place] % (Auto) 12.8 H, Eos % (Auto) 4.6, Baso % (Auto) 1.0, Absolute Neuts (auto) 3.7, Absolute Lymphs (auto) 2.21, Nucleated RBC % 0, Sodium 137, Potassium 4.2, Chloride 104, Carbon Dioxide 24.0, Anion Gap 9, BUN 32 H, Creatinine 0.77, Estim Creat Clear Calc 41.74 L, Est GFR (MDRD) Non-Af 75, BUN/Creatinine Ratio 41.2 H, Glucose 122 H, Calcium 9.0 09/05/24 06:51: POC Glucose 117 H Micro: Microbiology 09/01/24 Unknown Bone - Great Toe Gram Stain - Final 09/01/24 Unknown Bone - Great Toe Wound Culture - Final Coag Negative Staph 09/01/24 Unknown Bone - Great Toe Anaerobic Culture - Preliminary 08/27/24 11:35 Wound - Other Skin and Soft Tissue MRSA/MSSA (PCR - Final Physical Exam Narrative General: Alert, Oriented x3, Cooperative, No apparent distress HEENT: Atraumatic, PERRLA, EOMI, Normocephalic Oral: Moist Mucosa Neck: Supple, No JVD Lungs: Diminished, Normal air movement, No rhonchi, No wheeze, No rales Cardiovascular: Regular rate, Regular Rhythm, Normal S1, Normal S2, No murmurs Abdomen: Soft, Non Tender, Non-Distended, No Hepato-splenomegaly Extremities: No edema, Capillary Refill Less than 3 Seconds Skin: Right great toe amputation site is currently dressed, CDI Musculoskeletal: No Tenderness to Palpation of Joints or Extremities Neurological: No focal neurological deficits, Motor Exam 5/5 strength throughout, Sensory exam intact to light touch and pain Psych/Mental Status: Normal Affect, Appropriate Assessment & Plan Assessment/Plan (1) Cellulitis of foot, right: (2) Peripheral vascular disease: (3) Osteomyelitis of great toe of right foot: PLAN: Plan 1. Diabetic foot infection with a right first toe osteomyelitis status post amputation on 09/01/2024/PAD ? Awaiting vascular intervention today ? Continue with antibiotics ? ID has been consulted ? Wound cultures positive for MRSA 2. Essential HTN/HLD/CAD status post stent ? Continue with her home blood pressure medications ? Unfortunately she is allergic to statins due to myalgias ? Continue with aspirin and Plavix 3. DM2 ? Continue with insulin ? Accu-Cheks ACHS ? Will monitor and make adjustments as necessary ? Will hold her home oral medications DVT: SCDs Charges/Coding Visit Charges Inpatient E&M: 45359 Subs Hosp L2
--- NOTE | 2024-09-05 08:47 | RAD_ITS ---
EXAM: Intraoperative fluoroscopic services provided for right common iliac artery stenting. CLINICAL HISTORY: Right lower extremity ischemia. COMPARISON: None TECHNIQUE: Intraoperative fluoroscopic services provided. 2 minutes and 17 seconds of fluoroscopy. 55.88 mGy. 5 images were obtained. FINDINGS: Fluoroscopic services provided for right common iliac stenting. RAD/Femur 1 view IMPRESSION: Fluoroscopic imaging provided for right common iliac artery stenting. Reading Location: [facility]
[2024-09-05] MEDS: 0.9% Normal Saline (1000mL) 1,000 ML 15 ML IV (09:22)
--- NOTE | 2024-09-05 10:00 | PLAQ_PTH ---
PATIENT: GENTRY COBB LOC: [facility] U#:[id number] AGE/SX: 88/F ROOM: [facility] RE08/27/[address]: Dr. Joe Jefferson MD : [id number] BED: 1 DIS: 09/10/2024 SPEC #: [id number] RECD: 09/06/24 09:07 STATUS: MARY RENubia #: [id number] ROHINI: 09/05/24 10:[address]: Keanu Mccray DEPT: SURGICAL PATHOLOGY RECD BY: Orlando Villagomez ENTERED: 09/06/24 09:08 SP TYPE: PLAQUE OTHR DR: MD Dr. Rogelio Maciel MD Archana Hinduja, MD Dr. Allison Jordan, DO Dr. Alicia Zha, MD Dr. Christopher Ranney, MD Dr. Daniel Bullard, DPM Dr. Deepak Gulati, MD Dr. David Kittoe, MD Dr. Eric Turney, MD Dr. Hera Kamdar, MD Dr. Jan Bittar, MD Dr. James Burke, MD Dr. Jorge Morales, MD Margaret Beigel, MD Dr. Matthew Gusler, MD Dr. Maryam Mian, MD Dr. Mohamed Ridha, MD Dr. Mhd Ezzat Zaghlouleh, MD Dr. Nicholas F Kotsonis, MD Dr. Paige Pierce, MD Dr. Peter Robinson, MD Dr. Rami Ibrahim, MD Dr. Robert Leininger, MD Dr. Sushil Lakhani, MD Dr. Vivien Lee, MD Yousef Hannawi, MD Tissues: A - PLAQUE Procedures: Surgery Specimen Level III Comments: @ Ordering doctor for [facility] edited from to @ by VALERIE at 09/06/24 0909 @ Ordering doctor for SUIII edited from to @ by VALERIE at 09/06/24 09 @ Submitting doctor edited from to @ jennie PADILLA at 09/06/2409 HEADER OPERATION: Femoral endarterectomy, femoral-tibial bypass PRE-OP DIAGNOSIS: Atherosclerosis of [place] arteries of extremities with gangrene, right leg TISSUE SUBMITTED: A- Plaque MICROSCOPIC DIAGNOSIS A. Femoral artery, plaque, endarterectomy: - Fragments of atherosclerotic plaque (gross examination only). GROSS DESCRIPTION A. Received in formalin in a container labeled with the patient's name, date of , and plaque-gross only are multiple yellow-brown and firm fragments of calcified tissue measuring 3.3 x 2.9 x 1.3 cm in aggregate. Serial sections reveal gritty and calcified surfaces. No sections are submitted for microscopic evaluation, GROSS ONLY. [facility] 09/07/2024 CPT:62620
[2024-09-05] MEDS: Heparin 10,000 UNITS/10 ML Vial 10000 UNITS (10:43)
--- NOTE | 2024-09-05 14:35 | CHAPLAIN ---
Type of Pastoral Visit ___ Initial Visit ___ Follow-up Visit ___ On-call Visit ___ General Patient Visit ___ Spiritual Assessment ___ Family Conference ___ Bereavement ___ Rapid Response ___ Code Blue ___ Other (describe below) Pastoral Care Referral From ___ Patient ___ Family ___ Nurse ___ Physician ___ Statistical Reporting Analyst ___ Automobile Accessories Installer ___ Other (describe below) Sacrament/Intervention ___ Active listening ___ Anointing ___ Buddhist ___ Bereavement ___ Communion ___ Micheline exploration ___ ___ Life review ___ Prayer ___ Reconciliation ___ Sacrament of Sick ___ Supportive presence ___ Wedding ___ Other (describe below) Pastoral Comments patient and bed were not in the room;
--- NOTE | 2024-09-05 15:01 | CASEMGMT ---
Social Work TCU referral made, SW will follow up tomorrow. RENEE Rodney=S
--- NOTE | 2024-09-05 16:07 | PCM.POST.ANE ---
Anesthesia: Postop Eval I Current Vital Signs Temperature: 97.1 F Pulse Rate: 98 Blood Pressure: 143/69 Respiratory Rate: 14 Pulse Ox: 99 Oxygen Delivery Method: Simple Mask Oxygen Flow Rate (L/min): 6 Assessment Airway patent: Yes Spontaneous unlabored respirations: Yes Mental status: Awake and Calm nausea: No Vomiting: No Anesthesia Complication: No Fluid Hydration Crystalloid volume administer (ml): 1,900 Total IV fluid infused: 1,900 Progress Note Anesthesia document: Postop Eval 1 completed: Yes
[2024-09-05 16:51] LABS: Bedside Glucose 198 mg/dL (74-106)
--- NOTE | 2024-09-05 17:05 | SUR.PHASEI ---
ARRIVE IN PACU AT 16:20. RIGHT FOOT HAS A DRESSING PRESENT FROM ANKLE DOWN. UNABLE TO ASSESS DP OR PT PULSES. RIGHT OUTER CALF HAS X MARKED FOR BI-PASS SIGNAL, WHICH IS FOUND WITH DOPPLER. LEFT FOOT DP ABSENT WITH DOPPLER. LEFT FOOT PT PULSE IS PRESENT WITH DOPPLER.
--- NOTE | 2024-09-05 17:28 | OP.PCM_ITS ---
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 Post-Operative Diagnosis: Same Surgery/Procedure Performed: Right common femoral endarterectomy Right femoral to anterior tibial bypass with cadaver reverse great saphenous vein Right external iliac vein angioplasty and stent Right sartorius flap mutton puncher: Yes Barrel Endshaker Adjuster: Maryjane Rodrigues Tasks completed by assisted living associate: Opening, Closing, Opening & closing, Hemostasis: Tie, Hemostasis: Electrocautery and Retracting Type of Anesthesia: General RN Documented Start/Stop Times: Operation Date: 09/05/24 10:00 Case Time Into Pre-Op 09/05/24 08:54 Out of Pre-Op 09/05/24 09:55 Anesthesia Start 09/05/24 09:59 Into Room 09/05/24 09:59 Procedure Start 09/05/24 10:43 Procedure End 09/05/24 16:15 Anesthesia End 09/05/24 16:18 Out of Room 09/05/24 16:18 Into Recovery 09/05/24 16:20 Procedure Start Time: 10:45 Procedure Stop Time: 16:15 Select all DRAINS/GRAFTS/IMPLANTS that apply: Tissue Tissue details: Cadaver great saphenous vein Bovine pericardial patch and Implanted device Implanted device details: EV 3 prot?g? 10 x 60 self-expanding stent Estimated Blood Loss: 400 Specimen collected: Yes Description of specimen(s) removed: Plaque Description of surgery: HPI: Patient is an 88-year-old female with atherosclerosis and gangrene of the right lower extremity first digit. She has had multiple percutaneous interventions and most recently endovascular efforts have been unsuccessful at improving her perfusion to provide satisfactory wound healing. She presents now for right femoral to distal anterior tibial bypass with cadaver great saphenous vein. She has significant right common femoral artery calcified atherosclerosis causing significant stenosis so an endarterectomy will be performed. Due to the need for endarterectomy a modifier 22 will be applied to the bypass given the additional 1 hour of operative time. The patient also has a 65% stenosis of the proximal right external iliac artery so angioplasty and stenting will be p erformed. Given the need for extensive dissection in the patient's comorbidities a sartorius flap will be placed over the femoral vessels to prevent deep space infection. Description of procedure: Upon obtaining form consent and verification correct patient procedure site patient was taken to the operating where she was placed under general anesthesia. She was then positioned prepped and draped in usual sterile fashion time was performed. Oblique incision made over the palpable right common femoral artery and both electrocautery was dissect down through subcutaneous tissue. Self-retaining retractors and put in position further dissection carried down to the femoral sheath which was then incised vertically exposing the common femoral artery. Sharp dissection was then used to dissect f ree cephalad to the inguinal ligament which was freed along its inferior border allowing retraction. Further dissection was then carried up to the distal external iliac artery until a point of soft vessel that could be clamped was encountered. A writing was used to place a vessel loop around the external iliac artery at this location as well as around the medial lateral collateral branches individually. Dissection was then carried distally onto the femoral bifurcation and the proximal superficial femoral artery dissected free and a right angle used to place a vessel loop. Sharp dissection then carried down onto the profunda which was dissected free and a right angle used to place a vessel loop. Next vertical incision was made over the distal anterior tibial artery at the ankle and both electrocautery was dissect down through subcutaneous tissue. Self-retaining retractors were put in position for dissection carried on the level the fascia which was then incised vertically and self-retaining retractors were deeper in the wound. Muscles and tendon of the extensors were then retracted exposing the anterior tibial artery neurovascular bundle. Sharp dissection was used to dissect free proximal distal with care taken to identify and protect adjacent nerve and vein structures. The vessel was significantly calcified and with diffuse atherosclerosis however we were able to find a site that was satisfactory for both clamping and anastomosis creation. A writing was used to place a vessel loop proximal and distal and we then tunneled along the lateral aspect of the thigh and calf from the femoral incision to the anterior tibial incision. Given the length required a counterincision was made in the mid lateral calf in order to complete the tunnel length. The patient was then heparinized allowed to circulate for 3 minutes with subsequent heparin redosing performed. The distal external iliac artery and the femoral bifurcation vessels were then occluded with Vesseloops and longitudinal arteriotomy created with 11 blade extended with Bauman scissors. We then performed endarterectomy with freer elevator from the distal external neck artery down onto the proximal aspect of the SFA. The plaque did not extend into the profunda beyond the origin. Once the plaque was removed the lumen was flushed with heparinized saline to clear debris. The distal endpoints onto the SFA and the profunda were then tacked with 7-0 Prolene interrupted sutures. A bovine pericardial patch was then secured in position with a 5-0 Prolene running fashion, and prior to completing the suture line the vessels were backbled and the lumen flushed with heparinized saline. After completing the suture line clamps removed and satisfactory stasis was noted. At this point the cadaver vessel was thawed per search engine optimization strategist's instructions and placed in heparinized saline. The distal endarterectomy patch was then punctured with a micropuncture needle and wire and exchanged for micropuncture sheath. Through this hand- injection iliofemoral angiogram was performed revealing satisfactory position with no extravasation or dissection. This also confirmed the location of the previously identified external iliac artery stenosis. A Rise wire was then advanced through the micropuncture sheath and micropuncture with exchanged for 7 [place] sheath. The lesion was then predilated with an 8 mm x 40 angioplasty balloon inflated to nominal and then deflated withdrawn. The 10 x 60 EV 3 prot?g? stent was then advanced in position and deployed centered on the area of stenosis. The angioplasty and readvanced and inflated nominal across the entirety of the stent length. Completion angiogram revealed satisfactory resolution of the stenosis with no extravasation or dissection. The wire and sheath were then withdrawn and the femoral vessels were then occluded with Vesseloops. The puncture site was then extended with Bauman scissors and the cadaver vein oriented in reverse orientation. The vein was then flushed with heparinized saline with sidebranches noted to be hemostatic. The vein was then beveled to match the arteriotomy and anastomosis performed using a 6-0 Prolene in a running fashion. After completing suture line vessels are flush into the graft and the graft then marked to maintain orientation. The graft was then clamped with an atraumatic bulldog clamp at the proximal aspect and then secured to the tunneler and pulled through the first to the counterincision and then to the ankle incision. The distal anterior tibial artery was then occluded with Vesseloops and a longitudinal arteriotomy created with 11 blade extended with Bauman scissors. The vein was then cut the length and beveled to match the arteriotomy and anastomosis performed using 7-0 Prolene in a running fashion. Prior to completing suture line the vessels were backbled and after completing the suture line clamps were removed and satisfactory stasis was noted. There is a palpable pulse across the distal anastomosis and an appropriate Doppler signal both in the bypass graft as well as into the outflow vessel. Heparin was then reversed with protamine incisions inspected hemostasis. Hemoblast and Surgicel topical hemostatic spray then applied ultimately resulting in satisfactory hemostasis. Next we turned our attention to the sartorius muscle. Bovie electrocautery was used to dissect laterally in the femoral surgical field to the fascia overlying the sartorius muscle. The fascia was then incised vertically and extended up to the anterior superior iliac spine. The sartorius muscle was then mobilized along its lateral edge up to the insertion and the ASIS and the insertion divided with the Bovie. The muscle was then transposed medially with satisfactory coverage of the common femoral artery and patch with no significant tension. The wounds were again inspected for hemostasis and the sartorius muscle was secured with 2-0 Vicryl interrupted sutures. The groin incision was then closed with 3-0 Vicryl followed by 4 Monocryl and Dermabond. The Incision was closed with 3-0 Vicryl for Monocryl and Dermabond. The ankle incision was closed with interrupted 3-0 Ethilon suture. A Prevena was then applied to the groin incision and Silverlon dressings applied to the lower leg and ankle incision. The patient was then awake from anesthesia taken recovery room with anticipated admission to the intensive care unit for hemodynamic and vascular monitoring. Surgical Findings: See above Complications Complications: No
[2024-09-05] MEDS: 0.45% Normal Saline 1,000 ML 75 ML IV (17:54)
[2024-09-05] MEDS: Vancomycin Trough/Random Due 1 LAB MC (18:35)
--- NOTE | 2024-09-05 19:30 | CT_ITS ---
PROCEDURE: STROKE BRAIN/HEAD WITHOUT CONT 09/05/2024 REASON FOR EXAM: STROKE ALERT TECHNIQUE: Head CT without intravenous contrast. Coronal and Sagittal reconstruction series were provided. One or more dose reduction techniques were used (e.g., Automated exposure control, adjustment of the mA and/or kV according to patient size, use of iterative reconstruction technique. FINDINGS: Brain: Low density in the periventricular white matter suggests mild chronic small vessel ischemic changes. CSF Spaces: Mild generalized cerebral atrophy Sinuses/Mastoids: Clear at visualized levels Bones: Unremarkable. CT/STROKE Brain/Head without Cont IMPRESSION: NO ACUTE INTRACRANIAL HEMORRHAGE Reading Location: [id number]
--- NOTE | 2024-09-05 19:35 | PCM.RX.CS ---
Consult Antibiotic Management Pharmacy has been consulted to manage selected antibiotic: Vancomycin Type of Intervention Type of Consult: Follow-up Suspected Infection Suspected Infection: Osteomyelitis Labs Labs: Sodium 137 mmol/L (133-145) 09/05/24 05:08 Potassium 4.2 mmol/L (3.3-5.1) 09/05/24 05:08 Chloride 104 mmol/L (98-108) 09/05/24 05:08 Carbon Dioxide 24.0 mmol/L (21.0-32.0) 09/05/24 05:08 Anion Gap 9 (5-15) 09/05/24 05:08 BUN 32 mg/dL (4-19) H 09/05/24 05:08 Creatinine 0.77 mg/dL (0.70-1.20) 09/05/24 05:08 Est GFR (MDRD) Non-Af 75 (>60) 09/05/24 05:08 BUN/Creatinine Ratio 41.2 RATIO (10-20) H 09/05/24 05:08 Glucose 122 mg/dL (70-99) H 09/05/24 05:08 Vancomycin Trough 10.0 ug/mL (5.0-15.0) 09/05/24 18:00 Random Vancomycin 13.9 ug/mL (0.0-15.0) 09/03/24 15:11 Microbiology Microbiology: Microbiology 09/01/24 Unknown Bone - Great Toe Gram Stain - Final 09/01/24 Unknown Bone - Great Toe Wound Culture - Final Coag Negative Staph 09/01/24 Unknown Bone - Great Toe Anaerobic Culture - Preliminary 08/27/24 11:35 Wound - Other Skin and Soft Tissue MRSA/MSSA (PCR - Final Goal Trough Goal Trough: 15-20 mcg/mL Pharmacy Plan for Drug Dosing Pharmacy Plan for Drug Dosing: VANCOMYCIN LEVEL RECEIVED Current Vancomycin Dose: 1000mg q24h (at 1700) Number of Doses Received: x2 of current dose Vancomycin Level: 10 (drawn 1.5 hours late due to patient being in surgery and transferred to ICU) Hours Since Last Dose: 25 hours since last 1000mg dose on 09/04/24 at 1709 Renal Function: SrCr 0.77 Renal Function Trend: SrCr stable Lab/Micro: Vancomycin Plan/Comments: resulted trough of 10 (approx 12 if drawn 1.5 hours earlier) is below the ordered goal trough range of 15-20. recommend changing from 1000mg q24h to 500mg q12h (est trough of 17.4). trough prior to the 4th dose note: dose calculation per clinical pharmacology clinical calculators Pending Level: 09/07/24 at 0730 Pharmacy Service will continue to monitor and adjust dosing as required. Follow-Up Labs Follow-Up Labs: Trough: Vancomycin (09/07/24 AT 0730)
--- NOTE | 2024-09-05 19:41 | CT_ITS ---
PROCEDURE: STROKE CTA HEAD AND NECK W/CON 09/05/2024 REASON FOR EXAM: STROKE TECHNIQUE: CTA imaging of the head and neck from the aortic arch to the skull vertex with out constrast and with intravenous contrast. Coronal and Sagittal reconstruction series were provided. 3D post processing with reformations, Maximum intensity projection (MIPs) Volume rendering and Shaded surface rendering was provided. One or more dose reduction techniques were used (e.g., Automated exposure control, adjustment of the mA and/or kV according to patient size, use of iterative reconstruction technique). FINDINGS: Aortic Arch: Normal size and branching pattern. Mild atherosclerotic plaque. 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 Moderate calcified plaque of the origin left common carotid artery. Mild calcified plaque at the origin left subclavian artery. RIGHT Carotid: Right CCA: Occluded Right ICA: Occluded Maximum stenosis (NASCET): % Right ECA: Occluded LEFT Carotid: Left CCA: Widely patent Left ICA: Suspect prior endarterectomy which is widely patent. Maximum stenosis (NASCET): None % Left ECA: Patent Vertebrals: RIGHT Vertebral: Hypoplastic right vertebral artery terminates as the right posterior-inferior cerebellar artery. LEFT Vertebral: Unremarkable. Anatomy: Babb of Krishnan anatomy is normal. Aneurysm or avm: No intracranial aneurysms or large vascular malformations are identified. Anterior cerebral arteries: Unremarkable: Middle cerebral arteries: Unremarkable. Basilar artery: Unremarkable. Posterior cerebral arteries: Unremarkable. Other major branches of the posterior circulation: Unremarkable. Major venous structures: Unremarkable. Other findings: Neck: Lungs: Bones: CT/STROKE CTA Head AND Neck W/Con IMPRESSION: Occluded brachiocephalic trunk, right common carotid artery, and right internal carotid artery. No large vessel occlusion intracranially. Suspect prior left carotid endarterectomy without stenosis. Markedly hypoplastic right vertebral artery which terminates as the right poste rior inferior cerebellar artery. Patent left vertebral artery which supplies the basilar artery. Reading Location: [id number]
[2024-09-05 19:48] LABS: Bedside Glucose 213 mg/dL (74-106)
--- NOTE | 2024-09-05 20:13 | PCM.HOSP.N ---
Hospitalist Note STROKE ALERT: Patient s/p prolonged surgery with Dr. Mccray today, s/p R common femoral endarterectomy, R femoral to anterior tibial bypass with cadaver reverse great saphenous vein, R external iliac vein angioplasty and stent, R sartorius flap. Upon transition to ICU from OR patient with last known normal upon arrival with then repeat check at 7:28 pm notable LUE drift, inability to track left lateral, concern for L lateral upper and lower quadrants deficits given inability to track, L mild nasolabial fold flattening, dysarthria. Sensation intact. Difficult lifting LE secondary to pain. Discussed with Dr. Mccray upon evaluation. She has not missed any ASA/plavix per discussion with Dr. Mccray. CT head without acute findings, CTA head and neck resulted with occluded brachiocephalic trunk, right common carotid artery, and right internal carotid artery, no large vessel occlusion intracranially, suspected prior left carotid endarterectomy without stenosis, markedly hypoplastic right vertebral artery which terminates as the right posterior inferior cerebellar artery, patent left vertebral artery which supplies the basilar artery. Neurology consulted and agreed CVA. Given recent OR per discussion with Vascular/Neurology not candidate for TNK. Heparin without bolus planned per Neurology recommendation and also discussion with Dr. Mccray. SUMI Maza her daughter contacted but no answer, her daughter SUMI Reyes was contacted and answered and updated on current status and plan of care. Recent ECHO 08/12/24. MRI brain ordered. PT/OT/ST consulted. Stroke order set started. Permissive hypertension initiated with a hold on all blood pressure medication with goal BP greater than 110 and less 180 per discussion with neurology very specifically. Continued on aspirin and Plavix. FLP, TSH, magnesium, hemoglobin A1c requested. Discussed with nursing staff and neurology and once patient continued heparin drip without bolus has PTT at 50-70 they would like a repeat CT head done immediately and results called to them. Discussed with nursing staff and noted that they would need to call the physician on at that moment to obtain the CT order for that timing. Dr. Mccray updated on Neurology plan of care preference.
[2024-09-05] MEDS: HEPARIN/D5w 25,000 UNITS 25,000 UNITS/250 ML IV.SOLN. 5 UNITS CONT INF (21:03)
--- NOTE | 2024-09-05 21:30 | NURSING ---
At handoff pt started exhibiting signs of stroke that the dayshift RN said were out of her norm. Stroke alert called at 1927. Met Dr. Epperson and framing mill supervisor in [place]. Met with [facility] teleneuro in [place]. Started on heparin gtt at a set rate. Per Dr Epperson, once a aPTT goal of 50-70 is met call the hospitalist and obtain another CT scan. Spoke with Dr Mccray on the phone and he explained that it is okay for permissive hypertension.
[2024-09-05] MEDS: Acetaminophen 500 MG Tablet 1000 MG PO (22:02)
[2024-09-05] MEDS: Vancomycin IV 500 MG/100 ML BAG 100 MG IV (22:02)
[2024-09-05] MEDS: Insulin Lispro 100 UNIT/ML INSULN.PEN SC (22:11)
[2024-09-05] MEDS: 0.9% Saline Lock 10 ML Syringe IV (22:12)
[2024-09-06] VITALS (22 sets, daily range): BP systolic 119–153; BP diastolic 42–81; PULSE 82–115; RESP 14–22; TEMP 36.4–36.6; O2SAT 95–100; BMI 22.4
[2024-09-06] MEDS: Ampicillin/Sulbactam 3 GM in 0.9% Normal Saline (100mL MB+) 100 ML IV ×4 (00:21→20:22)
[2024-09-06 00:38] LABS: Bedside Glucose 233 mg/dL (74-106)
[2024-09-06 02:52] LABS: Partial Thromboplast Time 41.7 Seconds (24.1-36.2)
[2024-09-06 03:22] LABS: Anion Gap 14 (5-15); BUN 26 mg/dL (4-19); BUN/Creat Ratio 26.1 RATIO (10-20); Calcium,Total 8.1 mg/dL (7.6-11.0); Carbon Dioxide 18.4 mmol/L (21.0-32.0); Chloride 102 mmol/L (98-108); Creatinine, Serum 1.01 mg/dL (0.70-1.20); EST Glomerular Filtration Rate 54 (>60); Estimated Creatinine Clearance 33.06 ml/min (50-250); Glucose 264 mg/dL (70-99); Sodium Level 134 mmol/L (133-145)
--- NOTE | 2024-09-06 05:55 | CDU_ITS ---
Reason For Study Reason For Study: CVA Rt. Velocities/BP Lt. Velocities/BP Prox CCA 34.9/6.7 cm/sec. Prox CCA 181.3/23.3 cm/sec. Mid CCA 26.9/7.7 cm/sec. Mid CCA 148.4/25.5 cm/sec. Dist CCA 62.2/10.7 cm/sec. Dist CCA 130.8/23.3 cm/sec. Prox ICA 40.4/21.2 cm/sec. Prox ICA 112.5/26.7 cm/sec. Mid ICA 20.9/3.1 cm/sec. Mid ICA 134.4/34 cm/sec. Prox ECA 31.7/3.8 cm/sec. Dist ICA 103.4/26.7 cm/sec. Prox ECA 126.4 cm/sec. Lt. Vert. 125.3/17.5 cm/sec. Right Extracranial There is heterogeneous, irregular atherosclerotic plaque noted in the right common carotid artery. Antegrade abnormal waveform flow noted in the CCA. There is heterogeneous, irregular atherosclerotic plaque noted in the right internal carotid artery. Antegrade abnormal waveform flow in the ICA prox-mid and retrograde abnormal waveform flow in the ICA distal. There is heterogeneous, irregular atherosclerotic plaque noted in the right external carotid artery. Antegrade abnormal waveform flow ntoed in the ECA. Retrograde flow noted in the right vertebral artery. Left Extracranial There is heterogeneous, irregular atherosclerotic plaque noted in the left common carotid artery. There is heterogeneous, irregular atherosclerotic plaque noted in the left internal carotid artery. There is heterogeneous, irregular atherosclerotic plaque noted in the left external carotid artery. Antegrade flow is noted in the left vertebral artery. Procedure Carotid Duplex [id number]. This is a Carotid Duplex examination using B-mode, color flow and specral Doppler. Preliminary report given to Cristiane RAMIRES. Exam performed portable in ICU/CCU. VL/Carotid Duplex Ultrasound Interpretation Summary Right common and internal carotid arteries with abnormal waveforms, small calib er lumen and diminished velocities. Distal ICA with retrograde flow. ECA which previously had retrograde flow is no w antegrade. Mild (<50%) stenosis left extracranial internal carotid. Elevated velocity with no stenosis identified. The Right vertebral flow is retrograde. The Left vertebral is patent and antegrade. Ordering Physician: Laura Epperson Referring Physician: Mc Marks MD Performed By: Daina Arvizu RVT
--- NOTE | 2024-09-06 05:55 | MRI_ITS ---
PROCEDURE: BRAIN WITHOUT CONTRAST (MRIBR), 09/06/2024 REASON FOR EXAM: CVA COMPARISON: CT of same date. TECHNIQUE: Multisequence multiplanar MRI brain was performed without intravenous contrast. Contrast: None. FINDINGS: Mild/moderate motion limitation. Some sequences such as sagittal T1 are moderately motion degraded. Cerebrum: Scattered small foci of restricted diffusion/acute infarct in the RIGHT frontal katz radiata and centrum semiovale, likely watershed distribution. Suspect additional tiny foci of ischemia in the RIGHT temporal and occipital lobes. No appreciable hemorrhagic conversion or mass-effect. Moderate to advanced patchy supratentorial white matter abnormalities, compatible with chronic microvascular ischemic changes. Mild/moderate cerebral volume loss. Cerebellum: Unremarkable. Brainstem: Unremarkable. Ventricles/extra-axial spaces: Age-appropriate appearance. Major flow voids: Abnormal RIGHT ICA flow void, better evaluated on recent CTA. Paranasal sinuses: Mild [id number]-[id number]-LEFT mastoid effusions.. Scalp/calvarium: Unremarkable. Orbits: RIGHT cataract surgery. Other: None. MRI/Brain without Contrast IMPRESSION: 1. Somewhat motion limited noncontrast exam. 2. Scattered small acute RIGHT sided supratentorial infarcts are largely locate d within the frontal lobe but also suspected to involve the temporal and = occipital lobes to a much lesser degree. Distributi on suggest a watershed etiology. No appreciable mass-effect or hemorrhagic conversion. 3. Mild UTYCT-wdlvwus-[id number]-LEFT mastoid effusions. 4. Additional description as above. Attempts to relay the above results to a provider are ongoing. Reading Location: [id number]
[2024-09-06 06:10] LABS: Cholesterol 149 mg/dL (<=200); High Density Lipoprotein 55 mg/dL; Low Density Lipoprotein Calc. 70 mg/dL; Triglycerides 120 mg/dL; Very Low Density Lipoprotein 24 mg/dL (5-40); cholesterol:hdl ratio screen 2.72
[2024-09-06 06:14] LABS: Hemoglobin A1c 6.8 % (<=5.6)
[2024-09-06] MEDS: Acetaminophen 500 MG Tablet 1000 MG PO (06:40)
[2024-09-06 06:45] LABS: Partial Thromboplast Time 43.9 Seconds (24.1-36.2)
--- NOTE | 2024-09-06 07:45 | CT_ITS ---
PROCEDURE: STROKE BRAIN/HEAD WITHOUT CONT 09/06/2024 REASON FOR EXAM: R/O BLEED TECHNIQUE: Head CT without intravenous contrast. Coronal and Sagittal reconstruction series were provided. One or more dose reduction techniques were used (e.g., Automated exposure control, adjustment of the mA and/or kV according to patient size, use of iterative reconstruction technique. RADIATION DOSE SUMMARY: CTDlvol: 44.99 mGy DLP: 762.36 mGycm COMPARISON: Comparison is made with prior study dated September 05, 2024. FINDINGS: Brain: Low density in the periventricular white matter suggests mild chronic small vessel ischemic changes. Stable decreased attenuation in the body of the caudate nucleus bilaterally suggestive of old lacunar infarcts. CSF Spaces: Mild generalized cerebral atrophy Sinuses/Mastoids: Mucosal thickening along the posterior aspect of the right ethmoid sinus. Bones: Unremarkable CT/STROKE Brain/Head without Cont IMPRESSION: NO ACUTE INTRACRANIAL HEMORRHAGE Chronic changes. No acute findings. Reading Location: [facility]
--- NOTE | 2024-09-06 08:49 | WOUNDNOTE ---
Pt currently off the unit for testing. will change foot dressing when patient returns to the unit.
--- NOTE | 2024-09-06 09:14 | PCM.PN.HOSP ---
Subjective Subjective Had surgery yesterday for right lower extremity and developed strokelike symptoms at around 7:30 PM. Patient received a heparin bolus during surgery [facility] did not feel that she merited TNK. At the time her NIH was a 4. Overnight she continued to worsen and this morning is scoring approximately 16. Repeat CT of the brain was negative for hemorrhage, MRI is pending. Objective Data Objective Data Vital Signs: Vital Signs Temp Pulse Resp BP Pulse Ox O2 Del Method O2 Flow Rate 97.5 F L 115 H 20 H 132/74 H 97 Room Air 2 09/06/24 04:00 09/06/24 09:00 09/06/24 09:00 09/06/24 09:00 09/06/24 09:00 09/06/24 09:00 09/05/24 17:15 Oxygen Flow Rate (L/min) 2 Oxygen Delivery Method Room Air Weight: 134 lb 11.239 oz Body Mass Index (BMI) 22.4 Intake & Output: Intake and Output for Last 24 Hours 09/05/24 09/06/24 09/07/24 03:59 03:59 03:59 Intake Total 1248 / 1248 2578.75 / 2578.75 1112 / 1112 Output Total 1885 / 1885 400 / 400 Balance 1248 / 1248 693.75 / 693.75 712 / 712 Medical Nutrition Assessment Dietitian: Malnutrition Criteria Met Start: 09/01/24 10:45 Freq: Status: Active Protocol: Document 09/01/24 10:45 RMA (Rec: 09/01/24 10:45 RMA [id number]) Nutrition Malnutrition Evidence of Yes Malnutrition Exists Malnutrition (severe Chronic ): Evidenced By Suboptimal Energy Intake (Moderate),Weight Loss (Severe ),Physical Changes (Moderate) Intake Problem Increased Nutrient Needs (specify) Etiology protein and amino acids to support wound healing Signs/Symptoms as evidenced by R foot diabetic ulcer Status Active Problem Clinical Problem Chronic Disease or Condition Related Malnutrition Etiology severe protein-calorie malnutrition in the context of chronic disease and debility related to advanced age and inadequate energy intake Signs/Symptoms as evidenced by ~10-12% unintentional weight loss x past 3-4 months, BMI 19.9 and mild to moderate muscle wasting and fat depletion in the clavicle, orbitals and temporal regions; PO meeting less than 75% estimated nutrition needs Status Active Problem Recommendation Dietitian Resume diet as tolerated s/p procedure to liberalized Recommendations/ carbohydrate-controlled (no caloric restriction). Changes Will continue 4 oz glucerna shake 3 times per day w/ medpass. Will continue fruit punch flavored Darci 2 times per day with breakfast and dinner to support wound healing. Trend weights as available and optimize ONS to support weight stability and wound healing. Lab / Micro Data 09/05/24 05:08 09/06/24 02:30 Labs: Laboratory Results - last 24 hr 09/05/24 16:34: POC Glucose 198 H 09/05/24 18:00: Vancomycin Trough 10.0 09/05/24 19:28: POC Glucose 213 H 09/05/24 22:06: POC Glucose 233 H 09/06/24 02:30: APTT 41.7 H, Sodium 134, Potassium 4.0, Chloride 102, Carbon Dioxide 18.4 L, Anion Gap 14, BUN 26 H, Creatinine 1.01, Estim Creat Clear Calc 33.06 L, Est GFR (MDRD) Non-Af 54 L, BUN/Creatinine Ratio 26.1 H, Glucose 264 H, Hemoglobin A1c 6.8 H, Calcium 8.1, Triglycerides 120, Cholesterol 149, LDL Cholesterol, Calc 70, VLDL Cholesterol 24, HDL Cholesterol 55, Cholesterol/HDL Ratio 2.72, TSH 1.330 09/06/24 06:25: APTT 43.9 H Micro: Microbiology 09/01/24 Unknown Bone - Great Toe Gram Stain - Final 09/01/24 Unknown Bone - Great Toe Wound Culture - Final Coag Negative Staph 09/01/24 Unknown Bone - Great Toe Anaerobic Culture - Final No anaerobic bacteria isolated. 08/27/24 11:35 Wound - Other Skin and Soft Tissue MRSA/MSSA (PCR - Final Radiography Diagnostic Testing: Radiology Impression Femur X-Ray 09/05/24 08:47 IMPRESSION: Fluoroscopic imaging provided for right common iliac artery stenting. Reading Location: [facility] 09/05/24 19:30 IMPRESSION: NO ACUTE INTRACRANIAL HEMORRHAGE Reading Location: [id number] Head/Neck CTA 09/05/24 19:41 IMPRESSION: Occluded brachiocephalic trunk, right common carotid artery, and right internal carotid artery. No large vessel occlusion intracranially. Suspect prior left carotid endarterectomy without stenosis. Markedly hypoplastic right vertebral artery which terminates as the right posterior inferior cerebellar artery. Patent left vertebral artery which supplies the basilar artery. Reading Location: [facility] Brain CT 09/06/24 07:45 IMPRESSION: NO ACUTE INTRACRANIAL HEMORRHAGE Chronic changes. No acute findings. [facility] Physical Exam Narrative General: Alert, Oriented x3, Cooperative, No apparent distress HEENT: Atraumatic, PERRLA, EOMI, Normocephalic Oral: Moist Mucosa Neck: Supple, No JVD Lungs: Diminished, Normal air movement, No rhonchi, No wheeze, No rales Cardiovascular: Tachycardic, Regular Rhythm, Normal S1, Normal S2, No murmurs Abdomen: Soft, Non Tender, Non-Distended, No Hepato-splenomegaly Extremities: No edema, Capillary Refill Less than 3 Seconds Skin: Right great toe amputation site is currently dressed, CDI Musculoskeletal: No Tenderness to Palpation of Joints or Extremities Neurological: 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 Diabetic foot infection with a right first toe osteomyelitis status post amputation on 09/01/2024/PAD status post right common femoral endarterectomy with right femoral to anterior tibial bypass with right external iliac vein angioplasty and stent with a right sartorius flap on 09/05/2024 ? Continue with antibiotics ? ID has been consulted ? Wound cultures positive for MRSA ? PT/OT ? Will continue with the heparin drip 2. Acute CVA ? NIH has had continued to worsen she is now at a 16, repeat CT brain this morning was negative for bleeding ? MRI is pending ? She was deemed to not be a TNK candidate last evening ? PT/OT/speech ? Will not repeat an echocardiogram as she had one on 08/12/2024 ? 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 Essential HTN/HLD/CAD status post stent ? Continue with her home blood pressure medications ? Unfortunately she is allergic to statins due to myalgias ? Continue with aspirin and Plavix 4. DM2 ? Continue with insulin ? Accu-Cheks ACHS ? Will monitor and make adjustments as necessary ? Will hold her home oral medications DVT: SCDs Charges/Coding Visit Charges Inpatient E&M: 63069 Subs Hosp L3
[2024-09-06] MEDS: Insulin Lispro 100 UNIT/ML INSULN.PEN SC (09:34)
[2024-09-06] MEDS: Vancomycin IV 500 MG/100 ML BAG 100 MG IV ×2 (09:36→21:45)
[2024-09-06 09:58] LABS: Bedside Glucose 208 mg/dL (74-106)
--- NOTE | 2024-09-06 10:18 | PCM.PN.ID ---
Physical Exam Narrative Moved to icu last night due to new L sided weakness. Family at bedside. No fever Const no apparent distress Orientation / Consciousness: lethargic Resp normal air movement and clear to auscultation bilaterally Cardio regular rate and regular rhythm GI soft to palpation, non-tender and non-distended Skin no rashes or lesions noted ID ID: Route of nutrition/ use of supplements: [] Nutritional Intake: [] IV Site: [] White Catheter: [] Assessment & Plan Assessment/Plan (1) Osteomyelitis of great toe of right foot: PLAN: Cont vanc/unasyn, podiatry and vascular following. Neurology consulted. Will follow (2) Other specified peripheral vascular diseases:
--- NOTE | 2024-09-06 11:16 | PCM.PN.SRG ---
Subjective Subjective A few hours following surgery around 1930 stroke alert was called for patient due to LUE drift, L facial droop, dysarthria, and L visual field/gaze tracking deficits. She was evaluated by neuro and decision was made against TNK due to recent major surgery; head CT was negative; CTA revealed occluded R CCA (demonstrated on duplex for the last 3 years), no intracranial occlusions, L ICA without stenosis. Brain MRI was ordered. Permissive hypertension. Then this morning her NIH exam was noted to have worsened with more profound aphasia, vision deficits, and left-sided neglect so stroke alert was again called. Repeat Brain CT was negative. She was taken for Brain MRI earlier this morning as well. On my exam, patient has multiple family members at bedside including 2 daughters; discussed known results (MRI pending at the time of my exam). She was drowsy, not able to participate in conversation. Objective Data Objective Data Vital Signs: Vital Signs Temp Pulse Resp BP Pulse Ox O2 Del Method O2 Flow Rate 97.8 F 98 21 H 149/55 H 100 Room Air 2 09/06/24 10:00 09/06/24 11:00 09/06/24 11:00 09/06/24 11:00 09/06/24 11:00 09/06/24 11:00 09/05/24 17:15 Oxygen Flow Rate (L/min) 2 Oxygen Delivery Method Room Air Weight: 134 lb 11.239 oz Body Mass Index (BMI) 22.4 Intake & Output: Intake and Output for Last 24 Hours 09/04/24 09/05/24 09/06/24 23:59 23:59 23:59 Intake Total 1248 / 1248 2578.75 / 2578.75 1380 / 1380 Output Total 1585 / 1885 925 / 925 Balance 1248 / 1248 993.75 / 693.75 455 / 455 Medical Nutrition Assessment Dietitian: Malnutrition Criteria Met Start: 09/01/24 10:45 Freq: Status: Active Protocol: Document 09/01/24 10:45 RMA (Rec: 09/01/24 10:45 RMA [id number]) Nutrition Malnutrition Evidence of Yes Malnutrition Exists Malnutrition (severe Chronic ): Evidenced By Suboptimal Energy Intake (Moderate),Weight Loss (Severe ),Physical Changes (Moderate) Intake Problem Increased Nutrient Needs (specify) Etiology protein and amino acids to support wound healing Signs/Symptoms as evidenced by R foot diabetic ulcer Status Active Problem Clinical Problem Chronic Disease or Condition Related Malnutrition Etiology severe protein-calorie malnutrition in the context of chronic disease and debility related to advanced age and inadequate energy intake Signs/Symptoms as evidenced by ~10-12% unintentional weight loss x past 3-4 months, BMI 19.9 and mild to moderate muscle wasting and fat depletion in the clavicle, orbitals and temporal regions; PO meeting less than 75% estimated nutrition needs Status Active Problem Recommendation Dietitian Resume diet as tolerated s/p procedure to liberalized Recommendations/ carbohydrate-controlled (no caloric restriction). Changes Will continue 4 oz glucerna shake 3 times per day w/ medpass. Will continue fruit punch flavored Darci 2 times per day with breakfast and dinner to support wound healing. Trend weights as available and optimize ONS to support weight stability and wound healing. Lab / Micro Data 09/05/24 05:08 09/06/24 02:30 Labs: Laboratory Results - last 24 hr 09/05/24 16:34: POC Glucose 198 H 09/05/24 18:00: Vancomycin Trough 10.0 09/05/24 19:28: POC Glucose 213 H 09/05/24 22:06: POC Glucose 233 H 09/06/24 02:30: APTT 41.7 H, Sodium 134, Potassium 4.0, Chloride 102, Carbon Dioxide 18.4 L, Anion Gap 14, BUN 26 H, Creatinine 1.01, Estim Creat Clear Calc 33.06 L, Est GFR (MDRD) Non-Af 54 L, BUN/Creatinine Ratio 26.1 H, Glucose 264 H, Hemoglobin A1c 6.8 H, Calcium 8.1, Triglycerides 120, Cholesterol 149, LDL Cholesterol, Calc 70, VLDL Cholesterol 24, HDL Cholesterol 55, Cholesterol/HDL Ratio 2.72, TSH 1.330 09/06/24 06:25: APTT 43.9 H 09/06/24 08:18: POC Glucose 208 H Micro: Microbiology 09/01/24 Unknown Bone - Great Toe Gram Stain - Final 09/01/24 Unknown Bone - Great Toe Wound Culture - Final Coag Negative Staph 09/01/24 Unknown Bone - Great Toe Anaerobic Culture - Final No anaerobic bacteria isolated. 08/27/24 11:35 Wound - Other Skin and Soft Tissue MRSA/MSSA (PCR - Final Radiography Diagnostic Testing: Radiology Impression Femur X-Ray 09/05/24 08:47 IMPRESSION: Fluoroscopic imaging provided for right common iliac artery stenting. Reading Location: [facility] Brain [facility] 09/05/24 19:30 IMPRESSION: NO ACUTE INTRACRANIAL HEMORRHAGE Reading Location: [facility] Head/Neck CTA 09/05/24 19:41 IMPRESSION: Occluded brachiocephalic trunk, right common carotid artery, and right internal carotid artery. No large vessel occlusion intracranially. Suspect prior left carotid endarterectomy without stenosis. Markedly hypoplastic right vertebral artery which terminates as the right posterior inferior cerebellar artery. Patent left vertebral artery which supplies the basilar artery. Reading Location: [facility] Brain MRI 09/06/24 05:55 IMPRESSION: 1. Somewhat motion limited noncontrast exam. 2. Scattered small acute RIGHT sided supratentorial infarcts are largely located within the frontal lobe but also suspected to involve the temporal and = occipital lobes to a much lesser degree. Distribution suggest a watershed etiology. No appreciable mass-effect or hemorrhagic conversion. 3. Mild BVULW-gandavw-qvdo-LEFT mastoid effusions. 4. Additional description as above. Attempts to relay the above results to a provider are ongoing. Reading Location: [facility] 09/06/24 07:45 IMPRESSION: NO ACUTE INTRACRANIAL HEMORRHAGE Chronic changes. No acute findings. Reading Location: [facility]1 Physical Exam Const Constitutional Narrative: somnolent HEENT normocephalic, head/scalp atraumatic, hearing grossly normal bilaterally, external ears normal and external nose normal Nose: external nose normal Resp normal respiratory effort, normal air movement, no retractions and no use of accessory muscles Cardio regular rate and regular rhythm Extremity Extremity Narrative: R groin incision site with Prevena vacuum dressing in place, maintaining seal, no drainage in canister R calf and ankle incision sites with silver postop dressings in place; no apparent bleeding/drainage Good doppler signal through the bypass graft; R foot with dry dressings in place Assessment & Plan Assessment/Plan (1) Peripheral vascular disease: PLAN: Incision sites and bypass satisfactory on exam; bypass is tunneled along the lateral aspect of the leg so will need to be cautious to avoid pressure along the leg, avoid external rotation. Apply foam boots for offloading the feet. Continue heparin at therapeutic weight-based dosing. Stroke care as per neurology. Charges/Coding Procedures Integumentary 111xxx-113xx: [id number] Global Visit
[2024-09-06 11:23] LABS: Bedside Glucose 158 mg/dL (74-106)
--- NOTE | 2024-09-06 11:56 | CHAPLAIN ---
Type of Pastoral Visit _x__ Initial Visit ___ Follow-up Visit ___ On-call Visit ___ General Patient Visit ___ Spiritual Assessment ___ Family Conference ___ Bereavement ___ Rapid Response ___ Code Blue ___ Other (describe below) Pastoral Care Referral From _x__ Patient _x__ Family _x__ Nurse ___ Physician ___ Wound Treatment Rn ___ Food Consultant ___ Other (describe below) Sacrament/Intervention ___ Active listening ___ Anointing ___ Spiritism ___ Bereavement ___ Communion ___ Micheline exploration ___ ___ Life review _x__ Prayer ___ Reconciliation ___ Sacrament of Sick _x__ Supportive presence ___ Wedding ___ Other (describe below) Pastoral Comments patient suffered a stroke yesterday and has serious affects from it; family members are in the room and in the waiting room; pt was seen previously in [facility] and identified self as a believer; pt is able to speak but with some difficulty; stood at bedside to give support, calm, compassionate words; pt receives the comments and words with expression of thankfulness; offer of support to the family members as well; pt welcomes prayer
[2024-09-06] MEDS: HEPARIN/D5w 25,000 UNITS 25,000 UNITS/250 ML IV.SOLN. 8 UNITS CONT INF (12:44)
[2024-09-06 13:34] LABS: Partial Thromboplast Time 124.6 Seconds (24.1-36.2)
[2024-09-06] MEDS: Morphine 2 MG/ML Syringe IV (14:14)
[2024-09-06] MEDS: 0.9% Saline Lock 10 ML Syringe IV (14:14)
--- NOTE | 2024-09-06 14:52 | WOUNDNOTE ---
wound photo: right foot
--- NOTE | 2024-09-06 14:52 | WOUNDNOTE ---
wound photo: right foot
[2024-09-06 15:27] LABS: Hematocrit 20.7 % (37-47); Mean Corp Hgb Conc 33.8 g/dL (32-36); Mean Corpuscular Hgb 29.9 pg (27.0-32.0); Mean Corpuscular Volume 88.5 fL (81-99); Mean Platelet Vol. 9.7 fl (6.2-12.0); Platelet Count 300 K/mm3 (150-450); RBC Distribution Width CV 14.5 % (11.6-14.6); RBC Distribution Width SD 44.3 fl (35.1-43.9); Red Blood Count 2.34 M/mm3 (4.2-5.4); White Blood Count 10.7 K/mm3 (4.4-11.0)
--- NOTE | 2024-09-06 20:06 | NURSING ---
PT came to floor from ICU with heparin running at 3ml/hr. In [facility]UL it was charted on that the medication was paused. Next PTT at 2100, will adjust if needed.
[2024-09-06 20:41] LABS: Bedside Glucose 163 mg/dL (74-106)
[2024-09-06 21:58] LABS: Partial Thromboplast Time 32.3 Seconds (24.1-36.2)
[2024-09-06] MEDS: Heparin Injection (Vial) 5,000 UNIT/ML VIAL IV (22:26)
[2024-09-07] VITALS (14 sets, daily range): BP systolic 112–150; BP diastolic 44–68; PULSE 83–93; RESP 16–20; TEMP 36.5–37.4; O2SAT 95–100; BMI 22.4
[2024-09-07] MEDS: Ampicillin/Sulbactam 3 GM in 0.9% Normal Saline (100mL MB+) 100 ML IV ×5 (00:56→23:29)
[2024-09-07 01:15] LABS: Bedside Glucose 191 mg/dL (74-106)
[2024-09-07 05:20] LABS: Partial Thromboplast Time 44.2 Seconds (24.1-36.2)
[2024-09-07 05:56] LABS: Bedside Glucose 199 mg/dL (74-106)
--- NOTE | 2024-09-07 07:36 | PCM.PN.SRG ---
Subjective Subjective I saw Sofia this afternoon. She was in bed with multiple family members at bedside. She was able to respond to questions, more interactive today but still with significant dysarthria. Nursing reports possibly very minor improvement in motor function in LLE and maybe LUE; still with significant left-sided neglect and left facial droop. She worked with PT/OT this morning. Plan for swallow eval later today. R digit amputation site stable in appearance. Objective Data Objective Data Vital Signs: Vital Signs Temp Pulse Resp BP Pulse Ox O2 Del Method O2 Flow Rate 97.8 F 89 16 112/50 L 96 Room Air 2 09/07/24 03:30 09/07/24 03:30 09/07/24 03:30 09/07/24 03:30 09/07/24 03:30 09/07/24 03:30 09/05/24 17:15 Oxygen Flow Rate (L/min) 2 Oxygen Delivery Method Room Air Weight: 134 lb 14.766 oz Body Mass Index (BMI) 22.4 Intake & Output: Intake and Output for Last 24 Hours 09/05/24 09/06/24 09/07/24 23:59 23:59 23:59 Intake Total 2578.75 / 2578.75 1743.53 / 1743.53 259.25 / 259.25 Output Total 1585 / 1885 1150 / 1400 250 / 250 Balance 993.75 / 693.75 593.53 / 343.53 9.25 / 9.25 Medical Nutrition Assessment Dietitian: Malnutrition Criteria Met Start: 09/01/24 10:45 Freq: Status: Active Protocol: Document 09/06/24 14:40 SB (Rec: 09/06/24 14:40 SB [id number]) Nutrition Malnutrition Evidence of Yes Malnutrition Exists Malnutrition (severe Chronic ): Evidenced By Suboptimal Energy Intake (Moderate),Weight Loss (Severe ),Physical Changes (Moderate) Intake Problem Increased Nutrient Needs (specify) Etiology protein and amino acids to support wound healing Signs/Symptoms as evidenced by R foot diabetic ulcer Status Active Problem Clinical Problem Chronic Disease or Condition Related Malnutrition Etiology severe protein-calorie malnutrition in the context of chronic disease and debility related to advanced age and inadequate energy intake Signs/Symptoms as evidenced by ~10-12% unintentional weight loss x past 3-4 months, BMI 19.9 and mild to moderate muscle wasting and fat depletion in the clavicle, orbitals and temporal regions; PO meeting less than 75% estimated nutrition needs Status Active Problem Recommendation Dietitian Recommend advanced diet as tolerated to liberalized Recommendations/ carbohydrate-controlled (no caloric restriction). Changes As diet is advanced, continue 4 oz glucerna shake 3 times per day w/ medpass and fruit punch flavored Darci 2 times per day with breakfast and dinner to support wound healing. Trend weights as available and optimize ONS to support weight stability and wound healing. Lab / Micro Data 09/06/24 15:20 09/07/24 07:29 Labs: Laboratory Results - last 24 hr 09/06/24 08:18: POC Glucose 208 H 09/06/24 11:06: POC Glucose 158 H 09/06/24 12:35: APTT 124.6 H* 09/06/24 15:20: WBC 10.7, RBC 2.34 L, Hgb 7.0 L, Hct 20.7 L, MCV 88.5, MCH 29.9, MCHC 33.8, RDW Std Deviation 44.3 H, RDW Coeff of Kathy 14.5, Plt Count 300, MPV 9.7 09/06/24 20:18: POC Glucose 163 H 09/06/24 21:35: APTT 32.3 09/07/24 00:55: POC Glucose 191 H 09/07/24 04:49: APTT 44.2 H 09/07/24 05:32: POC Glucose 199 H Micro: Microbiology 09/01/24 Unknown Bone - Great Toe Gram Stain - Final 09/01/24 Unknown Bone - Great Toe Wound Culture - Final Coag Negative Staph 09/01/24 Unknown Bone - Great Toe Anaerobic Culture - Final No anaerobic bacteria isolated. 08/27/24 11:35 Wound - Other Skin and Soft Tissue MRSA/MSSA (PCR - Final Radiography Diagnostic Testing: Radiology Impression Brain MRI 09/06/24 05:55 IMPRESSION: 1. Somewhat motion limited noncontrast exam. 2. Scattered small acute RIGHT sided supratentorial infarcts are largely located within the frontal lobe but also suspected to involve the temporal and = occipital lobes to a much lesser degree. Distribution suggest a watershed etiology. No appreciable mass-effect or hemorrhagic conversion. 3. Mild MNHBH-addgrok-vtxh-LEFT mastoid effusions. 4. Additional description as above. Attempts to relay the above results to a provider are ongoing. Reading Location: [facility] Carotid Duplex 09/06/24 05:55 Interpretation Summary Right common and internal carotid arteries with abnormal waveforms, small caliber lumen and diminished velocities. Distal ICA with retrograde flow. ECA which previously had retrograde flow is now antegrade. Mild (<50%) stenosis left extracranial internal carotid. Elevated velocity with no stenosis identified. The Right vertebral flow is retrograde. The Left vertebral is patent and antegrade. Ordering Physician: Laura Epperson Referring Physician: Mc Marks MD Performed By: Daina Arvizu RVT Brain CT 09/06/24 07:45 IMPRESSION: NO ACUTE INTRACRANIAL HEMORRHAGE Chronic changes. No acute findings. Reading Location: [place] [id number] Physical Exam Const alert General Appearance: cooperative HEENT normocephalic Face and Sinus: flattened naso-labial fold Laterality: Left Nose: external nose normal External Ear: external ears normal Resp normal respiratory effort, no retractions and no use of accessory muscles Cardio regular rate and regular rhythm Extremity Extremity Narrative: R groin incision site with Prevena dressing intact; no significant edema, ecchymosis; no drainage in canister; soft to palpation R leg incision sites satisfactory in appearance, dressings C/D/I without bleed-through. No apparent hematoma. Good signal through bypass and multiphasic at R DP, monophasic but strong R PT signal Skin no rashes or lesions noted Psych Attitude: calm Assessment & Plan Assessment/Plan (1) Peripheral vascular disease: PLAN: Incision sites and bypass satisfactory on exam; bypass is tunneled along the lateral aspect of the leg so continue to be cautious to avoid pressure along the leg, avoid external rotation and lying on the R side. Discussed with nursing to apply foam boots for offloading the bilateral feet. From a surgical perspective, OK with discontinuing heparin and proceeding with DAPT at this time. Stroke care as per neurology. Charges/Coding Procedures Integumentary 111xxx-113xx: [id number] Global Visit
[2024-09-07 08:50] LABS: Anion Gap 16 (5-15); BUN 33 mg/dL (4-19); BUN/Creat Ratio 30.8 RATIO (10-20); Calcium,Total 8.2 mg/dL (7.6-11.0); Carbon Dioxide 17.7 mmol/L (21.0-32.0); Chloride 104 mmol/L (98-108); Creatinine, Serum 1.06 mg/dL (0.70-1.20); EST Glomerular Filtration Rate 51 (>60); Estimated Creatinine Clearance 33.01 ml/min (50-250); Glucose 211 mg/dL (70-99); Potassium 3.8 mmol/L (3.3-5.1); Sodium Level 138 mmol/L (133-145)
[2024-09-07 08:52] LABS: Vancomycin, Trough Level 17.4 ug/mL (5.0-15.0)
--- NOTE | 2024-09-07 09:17 | ANES.CONFIRM ---
Anesthesia: Confirm Documents Multiple Procedures on Account (2) Confirmed Documents: Yes
--- NOTE | 2024-09-07 09:29 | PCM.RX.CS ---
Consult Antibiotic Management Pharmacy has been consulted to manage selected antibiotic: Vancomycin Type of Intervention Type of Consult: Follow-up Suspected Infection Suspected Infection: Osteomyelitis Prior Doses of Antibiotics Prior Doses of Antibiotics Received/Current Regimen: current dose is vanc 500mg IV q12h Labs Labs: Sodium 138 mmol/L (133-145) 09/07/24 07:29 Potassium 3.8 mmol/L (3.3-5.1) 09/07/24 07:29 Chloride 104 mmol/L (98-108) 09/07/24 07:29 Carbon Dioxide 17.7 mmol/L (21.0-32.0) L 09/07/24 07:29 Anion Gap 16 (5-15) H 09/07/24 07:29 BUN 33 mg/dL (4-19) H 09/07/24 07:29 Creatinine 1.06 mg/dL (0.70-1.20) 09/07/24 07:29 Est GFR (MDRD) Non-Af 51 (>60) L 09/07/24 07:29 BUN/Creatinine Ratio 30.8 RATIO (10-20) H 09/07/24 07:29 Glucose 211 mg/dL (70-99) H 09/07/24 07:29 Vancomycin Trough 17.4 ug/mL (5.0-15.0) H 09/07/24 07:29 Random Vancomycin 13.9 ug/mL (0.0-15.0) 09/03/24 15:11 Microbiology Microbiology: Microbiology 09/01/24 Unknown Bone - Great Toe Gram Stain - Final 09/01/24 Unknown Bone - Great Toe Wound Culture - Final Coag Negative Staph 09/01/24 Unknown Bone - Great Toe Anaerobic Culture - Final No anaerobic bacteria isolated. 08/27/24 11:35 Wound - Other Skin and Soft Tissue MRSA/MSSA (PCR - Final Dosing Weight Weight used for dosin.2 kg Estimated Creatinine Clearance Estimated Creatinine Clearance: 33 ml/min Goal Trough Goal Trough: 15-20 mcg/mL Pharmacy Plan for Drug Dosing Pharmacy Plan for Drug Dosing: The vanc trough drawn at 7:29 today (approx 10 hours after the last dose) was 17.4 mcg/ml. The last dose was given late so the trough was drawn at only 10 hours. It would have been a little lower if drawn closer to the 11.5 hour johnny but likely still within goal range. Will continue same dose and repeat a trough in 2 days per protocol. Pharmacy Service will continue to monitor and adjust dosing as required. Follow-Up Labs Follow-Up Labs: Trough: Vancomycin Date/Time Labs Ordered Labs to be done on [date and time ordered]: 09/09/24 07:30
[2024-09-07] MEDS: Vancomycin IV 500 MG/100 ML BAG 100 MG IV ×2 (10:16→20:10)
[2024-09-07] MEDS: 0.9% Saline Lock 10 ML Syringe IV ×3 (11:06→18:24)
[2024-09-07 12:16] LABS: Partial Thromboplast Time 56.3 Seconds (24.1-36.2)
--- NOTE | 2024-09-07 12:34 | PCM.PN.HOSP ---
Subjective Subjective No new issues overnight, she is maintaining her NIH at 15-16 Objective Data Objective Data Vital Signs: Vital Signs Temp Pulse Resp BP Pulse Ox O2 Del Method O2 Flow Rate 97.8 F 88 16 131/61 H 100 Room Air 2 09/07/24 12:00 09/07/24 12:00 09/07/24 12:00 09/07/24 12:00 09/07/24 12:00 09/07/24 12:00 09/05/24 17:15 Oxygen Flow Rate (L/min) 2 Oxygen Delivery Method Room Air Weight: 134 lb 14.766 oz Body Mass Index (BMI) 22.4 Intake & Output: Intake and Output for Last 24 Hours 09/06/24 09/07/24 09/08/24 03:59 03:59 03:59 Intake Total 2578.75 / 2578.75 1743.53 / 1743.53 247.25 / 247.25 Output Total 1885 / 1885 1100 / 1100 Balance 693.75 / 693.75 643.53 / 643.53 247.25 / 247.25 Medical Nutrition Assessment Dietitian: Malnutrition Criteria Met Start: 09/01/24 10:45 Freq: Status: Active Protocol: Document 09/06/24 14:40 SB (Rec: 09/06/24 14:40 SB [id number]) Nutrition Malnutrition Evidence of Yes Malnutrition Exists Malnutrition (severe Chronic ): Evidenced By Suboptimal Energy Intake (Moderate),Weight Loss (Severe ),Physical Changes (Moderate) Intake Problem Increased Nutrient Needs (specify) Etiology protein and amino acids to support wound healing Signs/Symptoms as evidenced by R foot diabetic ulcer Status Active Problem Clinical Problem Chronic Disease or Condition Related Malnutrition Etiology severe protein-calorie malnutrition in the context of chronic disease and debility related to advanced age and inadequate energy intake Signs/Symptoms as evidenced by ~10-12% unintentional weight loss x past 3-4 months, BMI 19.9 and mild to moderate muscle wasting and fat depletion in the clavicle, orbitals and temporal regions; PO meeting less than 75% estimated nutrition needs Status Active Problem Recommendation Dietitian Recommend advanced diet as tolerated to liberalized Recommendations/ carbohydrate-controlled (no caloric restriction). Changes As diet is advanced, continue 4 oz glucerna shake 3 times per day w/ medpass and fruit punch flavored Darci 2 times per day with breakfast and dinner to support wound healing. Trend weights as available and optimize ONS to support weight stability and wound healing. Lab / Micro Data 09/06/24 15:20 09/07/24 07:29 Labs: Laboratory Results - last 24 hr 09/06/24 12:35: APTT 124.6 H* 09/06/24 15:20: WBC 10.7, RBC 2.34 L, Hgb 7.0 L, Hct 20.7 L, MCV 88.5, MCH 29.9, MCHC 33.8, RDW Std Deviation 44.3 H, RDW Coeff of Kathy 14.5, Plt Count 300, MPV 9.7 09/06/24 20:18: POC Glucose 163 H 09/06/24 21:35: APTT 32.3 09/07/24 00:55: POC Glucose 191 H 09/07/24 04:49: APTT 44.2 H 09/07/24 05:32: POC Glucose 199 H 09/07/24 07:29: Sodium 138, Potassium 3.8, Chloride 104, Carbon Dioxide 17.7 L, Anion Gap 16 H, BUN 33 H, Creatinine 1.06, Estim Creat Clear Calc 33.01 L, Est GFR (MDRD) Non-Af 51 L, BUN/Creatinine Ratio 30.8 H, Glucose 211 H, Calcium 8.2, Vancomycin Trough 17.4 H 09/07/24 08:46: Blood Type O POSITIVE, Antibody Screen NEGATIVE, Crossmatch See Detail 09/07/24 11:40: APTT 56.3 H Micro: Microbiology 09/01/24 Unknown Bone - Great Toe Gram Stain - Final 09/01/24 Unknown Bone - Great Toe Wound Culture - Final Coag Negative Staph 09/01/24 Unknown Bone - Great Toe Anaerobic Culture - Final No anaerobic bacteria isolated. 08/27/24 11:35 Wound - Other Skin and Soft Tissue MRSA/MSSA (PCR - Final Radiography Diagnostic Testing: Radiology Impression Carotid Duplex 09/06/24 05:55 Interpretation Summary Right common and internal carotid arteries with abnormal waveforms, small caliber lumen and diminished velocities. Distal ICA with retrograde flow. ECA which previously had retrograde flow is now antegrade. Mild (<50%) stenosis left extracranial internal carotid. Elevated velocity with no stenosis identified. The Right vertebral flow is retrograde. The Left vertebral is patent and antegrade. Ordering Physician: Laura Epperson Referring Physician: Mc Marks MD Performed By: Daina Arvizu, RVT Physical Exam Narrative General: Alert, Oriented x3, Cooperative, No apparent distress HEENT: Atraumatic, PERRLA, EOMI, Normocephalic Oral: Moist Mucosa Neck: Supple, No JVD Lungs: Diminished, Normal air movement, No rhonchi, No wheeze, No rales Cardiovascular: Tachycardic, Regular Rhythm, Normal S1, Normal S2, No murmurs Abdomen: Soft, Non Tender, Non-Distended, No Hepato-splenomegaly Extremities: No edema, Capillary Refill Less than 3 Seconds Skin: Right great toe amputation site is currently dressed, CDI Musculoskeletal: No Tenderness to Palpation of Joints or Extremities Neurological: 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 Diabetic foot infection with a right first toe osteomyelitis status post amputation on 09/01/2024/PAD status post right common femoral endarterectomy with right femoral to anterior tibial bypass with right external iliac vein angioplasty and stent with a right sartorius flap on 09/05/2024 ? Continue with antibiotics ? ID has been consulted ? Wound cultures positive for MRSA ? PT/OT ? Will continue with the heparin drip, hemoglobin did drop to 7. Given all of her issues we will transfuse 2 units 2. Acute CVA ? NIH has had continued to worsen she is now at a 16, repeat CT brain was negative for bleeding ? MRI with scattered small acute right sided supratentorial infarcts located in the frontal lobe as well as in the temporal and occipital lobe, the distribution suggested a watershed etiology ? She was deemed to not be a TNK candidate due to her recent major surgery ? PT/OT/speech ? Will not repeat an echocardiogram as she had one on 08/12/2024 ? Right coronary arteries are occluded and she has had a previous left endarterectomy ? I did have an 18-minute discussion with her children at bedside given the fact that she is also n.p.o. awaiting a barium swallow. They asked what the next steps would be in we discussed the possibility of feeding tubes however at that time we also discussed prognosis and the role of hospice versus palliative care 3. Essential HTN/HLD/CAD status post stent ? Continue with her home blood pressure medications ? Unfortunately she is allergic to statins due to myalgias ? Continue with aspirin and Plavix 4. DM2 ? Continue with insulin ? Accu-Cheks ACHS ? Will monitor and make adjustments as necessary ? Will hold her home oral medications DVT: SCDs Charges/Coding Multi Select Codes Visit Charges Visit Charges: 65529 Subs Hosp L2 Hospitalists' Procedures Procedures: 86652 Advncd Care Plan 30 Min
[2024-09-07 12:47] LABS: Bedside Glucose 201 mg/dL (74-106)
[2024-09-07] MEDS: 0.9% Normal Saline (100mL Bag) 100 ML 120 ML IV (13:00)
[2024-09-07] MEDS: 0.9% Normal Saline (100mL Bag) 100 ML 15 ML IV ×2 (14:43→18:19)
[2024-09-07 18:45] LABS: Bedside Glucose 187 mg/dL (74-106)
[2024-09-07 19:10] LABS: Partial Thromboplast Time 42.6 Seconds (24.1-36.2)
[2024-09-07 19:38] LABS: Hematocrit 27.1 % (37-47); Hemoglobin 9.1 g/dL (12.0-15.0)
[2024-09-07 23:58] LABS: Bedside Glucose 181 mg/dL (74-106)
[2024-09-08] VITALS (30 sets, daily range): BP systolic 112–150; BP diastolic 53–77; PULSE 68–146; RESP 18–29; TEMP 36.8–37.2; O2SAT 93–98; BMI 22.8
--- NOTE | 2024-09-08 00:19 | CON.PCM.NE_ITS ---
Assessment and Plan: Stroke Assessment/Plan GENTRY COBB is a 88 F with extensive p-mhx, including severe vascular disease who presents for evaluation of R MCA stroke. She was stroke alerted after a femoral artery procedure R fem to ant tib bypass. No TNK. CTA with Occluded brachiocephalic trunk, right common carotid artery, and right internal carotid artery. No large vessel occlusion intracranially. Suspect prior left carotid endarterectomy without stenosis. Markedly hypoplastic right vertebral artery which terminates as the right posterior inferior cerebellar artery. Patent left vertebral artery which supplies the basilar artery. Neurological examination shows NIh 12. Neuroimaging MRI with R MCA watershed infarcts. - Anti-platelet medication: Aspirin 81 mg daily And Plavix. Hep gtt. If exam worsens repeat CTH. - Occupational/ Physical therapy consults - NPO until swallow evaluation. IVF until able to take po - DVT prophylaxis with SCDs and heparin SQ - Vascular risk factor modification. The following are the recommended guidelines: LDL Goal < 70 - If full code would trial Statin again. Smoking Cessation Diabetes Management FCI blood pressure control should achieve <130/80 mmHg. Goal of ABP 110-160. For complete CCA occlusion. Weight Management: Goal for BMI is 18.5 -24.9 kg/m2 - Promote lifestyle modification: weight control, physical activity, moderation of alcohol intake, moderate sodium intake. Dispo - [employer] swallow eval. 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 Non-ST elevation UT (NSTEMI) Diabetic foot infection Syncope Sepsis Aftercare following surgery of the circulatory system TIA (transient ischemic attack) Stroke/cerebrovascular accident Carotid stenosis Wears eyeglasses Depression Anxiety Hx of syncope Dietary restriction Hx of heartburn Hx of shortness of breath Hx of edema Hx of echocardiogram Hx of cardiovascular stress test Preoperative cardiovascular examination Carotid stenosis Ulcer of left foot with bone involvement without evidence of necrosis Non-pressure chronic ulcer of other part of left foot with necrosis of bone Wears dentures Ambulates with cane Arthritis Easy bruising Prolapsed bladder Former smoker Cardiology follow-up encounter Cellulitis of left thigh Syncope Hematoma of frontal scalp Post-op pain Ischaemic rest pain of lower extremity Open wound of left foot Cellulitis of left foot 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 without evidence of necrosis Cellulitis of left toe Amputated toe GI bleed Non-pressure chronic ulcer of other part of left foot with fat layer exposed Rectocele Cystocele Presence of stent in coronary artery (~07/04/11) Essential hypertension RBBB (right bundle branch block) Atherosclerotic heart disease of [place] coronary artery without angina pectoris Incomplete prolapse of vaginal vault HTN (hypertension) Osteoarthritis Diabetes Hyperlipidemia Carotid stenosis, bilateral BBB (bundle branch block) PAD (peripheral artery disease) Home Medications ?Medication ?Instructions ?Recorded ?Last Taken ?Type clopidogrel 75 mg tablet 75 mg PO DAILY platelet inhi bitor 06/07/16 08/27/24 History multivitamin 1 tab PO DAILY SUPPLEMENT 08/27/24 History lisinopril 20 mg tablet 20 mg PO BID BP 01/01/2110/16 History metoprolol tartrate 25 mg tablet 25 mg PO TID BP 01/0108/27/24 History metformin 500 mg tablet,extended 500 mg PO BID DM 12/1308/27/24 History release 24 hr amlodipine 10 mg tablet 10 mg PO DAILY bp 11/12/23 0 08/27/24 History aspirin 81 mg tablet,delayed 81 mg PO DAILY@0800 [facility] [place] 05/16/24 08/27/24 Rx release #0 tabs nitroglycerin 0.4 mg sublingual 0.4 mg sublingual Q5-1 5M PRN chest 07/27/24 Unknown Rx tablet pain #25 tabs acetaminophen 325 mg tablet 650 mg PO Q6H PRN PRN feve r 08/27/24 Unknown History doxycycline hyclate 100 mg tablet 100 mg PO BID 08/27/24 History Allergy/AdvReac Type Severity Reaction Status Date / Time pravastatin AdvReac Severe myalgias Verified 09/05/24 09:18 [id number] Reductase AdvReac Severe myalgias Verified 09/05/24 09:18 Inhibitor Sulfa (Sulfonamide AdvReac Mild stomach Verified 09/05/24 09:18 Antibiotics) upset atorvastatin AdvReac myalgias Verified 09/05/24 09:18 Family History Father Diabetes Heart disease Brother Diabetes Colon cancer Brother Diabetes Surgical History History of cardiac catheterization Hx of toe surgery Hx of toe surgery S/P bladder repair History of colonoscopy History of tonsillectomy Cataract extraction status of right eye Presence of coronary angioplasty implant and graft (~05/11/24) History of hemorrhoidectomy History of hysterectomy History of left-sided carotid endarterectomy Status post peripheral artery angioplasty History of heart artery stent Social History Smoking Status: Former smoker how long ago did patient quit smokin + years ago alcohol intake: current alcohol intake frequency: a few times a month Alcohol type: wine substance use type: does not use caffeine: Yes Type: coffee Number of servings: 2 what type of physical activity do you participate in: walking seatbelt use: always do you feel safe at home: Yes Vital Signs Vital Signs Vital Signs: 09/07/24 03:30 09/07/24 03:30 09/07/24 07:27 Temperature 97.8 F Temperature Source Temporal Pulse Rate 89 Pulse Strength Respiratory Rate 16 Respiratory Effort Normal Non-Labored Respiratory Depth Normal Respiratory Pattern Normal Blood Pressure 112/50 L Blood Pressure Mean 70 Blood Pressure Source Monitor Blood Pressure Position Supine Blood Pressure Location Left Arm Pulse Ox 96 99 Oxygen Delivery Method Room Air Room Air Room Air 09/07/24 08:00 09/07/24 08:00 09/07/24 10:50 Temperature 98.5 F Temperature Source Temporal Pulse Rate 85 Pulse Strength Weak (1+) Respiratory Rate 20 H Respiratory Effort Normal Non-Labored Respiratory Depth Normal Respiratory Pattern Normal Blood Pressure 125/50 H Blood Pressure Mean 75 Blood Pressure Source Monitor Blood Pressure Position Supine Blood Pressure Location Left Arm Pulse Ox 98 Oxygen Delivery Method Room Air Room Air 09/07/24 11:02 09/07/24 11:17 09/07/24 12:00 Temperature 98.0 F 97.9 F 97.8 F Temperature Source Temporal Temporal Temporal Pulse Rate 91 86 88 Pulse Strength Respiratory Rate 18 18 16 Respiratory Effort Respiratory Depth Respiratory Pattern Blood Pressure 125/47 H 119/44 L 131/61 H Blood Pressure Mean 73 69 84 Blood Pressure Source Monitor Monitor Monitor Blood Pressure Position Semi-Fowlers Semi-Fowlers Semi-Fowlers Blood Pressure Location Left Arm Left Arm Left Arm Pulse Ox 99 100 100 Oxygen Delivery Method Room Air Room Air Room Air 09/07/24 13:00 09/07/24 14:31 09/07/24 14:55 Temperature 98.3 F 98.3 F 98.3 F Temperature Source Temporal Temporal Temporal Pulse Rate 85 83 83 Pulse Strength Respiratory Rate 16 16 16 Respiratory Effort Respiratory Depth Respiratory Pattern Blood Pressure 126/46 H 141/58 H 141/58 H Blood Pressure Mean 72 85 85 Blood Pressure Source Monitor Monitor Monitor Blood Pressure Position Semi-Fowlers Semi-Fowlers Semi-Fowlers Blood Pressure Location Left Arm Left Arm Left Arm Pulse Ox 98 98 98 Oxygen Delivery Method Room Air Room Air Room Air 09/07/24 14:55 09/07/24 15:10 09/07/24 16:00 Temperature 98.5 F 97.7 F L Temperature Source Temporal Temporal Pulse Rate 89 93 Pulse Strength Respiratory Rate 18 16 Respiratory Effort Normal Non-Labored Respiratory Depth Normal Respiratory Pattern Normal Blood Pressure 138/57 H 144/55 H Blood Pressure Mean 84 84 Blood Pressure Source Monitor Monitor Blood Pressure Position Semi-Fowlers Semi-Fowlers Blood Pressure Location Left Arm Left Arm Pulse Ox 97 98 Oxygen Delivery Method Room Air Room Air Room Air 09/07/24 17:45 09/07/24 18:24 Temperature 98.1 F 99.3 F H Temperature Source Oral Oral Pulse Rate 93 88 Pulse Strength Respiratory Rate 16 18 Respiratory Effort Respiratory Depth Respiratory Pattern Blood Pressure 144/68 H 150/56 H Blood Pressure Mean 93 87 Blood Pressure Source Monitor Monitor Blood Pressure Position Semi-Fowlers Semi-Fowlers Blood Pressure Location Left Arm Left Arm Pulse Ox 98 98 Oxygen Delivery Method Room Air Room Air Weight Weight: 61.2 kg Body Mass Index (BMI) 22.4 EEG Results Procedure Details EEG Procedure Details: GENTRY COBB is a 88 year old F with a past medical history of , who presents for evaluation of Electroencephalogram on DATE at TIME Medical Records Data Medical Nutrition Assessment Dietitian: Malnutrition Criteria Met Start: 09/01/24 10:45 Freq: Status: Active Protocol: Document 09/06/24 14:40 SB (Rec: 09/06/24 14:40 SB [id number]) Nutrition Malnutrition Evidence of Yes Malnutrition Exists Malnutrition (severe Chronic ): Evidenced By Suboptimal Energy Intake (Moderate),Weight Loss (Severe ),Physical Changes (Moderate) Intake Problem Increased Nutrient Needs (specify) Etiology protein and amino acids to support wound healing Signs/Symptoms as evidenced by R foot diabetic ulcer Status Active Problem Clinical Problem Chronic Disease or Condition Related Malnutrition Etiology severe protein-calorie malnutrition in the context of chronic disease and debility related to advanced age and inadequate energy intake Signs/Symptoms as evidenced by ~10-12% unintentional weight loss x past 3-4 months, BMI 19.9 and mild to moderate muscle wasting and fat depletion in the clavicle, orbitals and temporal regions; PO meeting less than 75% estimated nutrition needs Status Active Problem Recommendation Dietitian Recommend advanced diet as tolerated to liberalized Recommendations/ carbohydrate-controlled (no caloric restriction). Changes As diet is advanced, continue 4 oz glucerna shake 3 times per day w/ medpass and fruit punch flavored Darci 2 times per day with breakfast and dinner to support wound healing. Trend weights as available and optimize ONS to support weight stability and wound healing. Lab / Micro Data 09/07/24 19:05 09/07/24 07:29 Labs: Laboratory Results - last 24 hr 09/07/24 00:55: POC Glucose 191 H 09/07/24 04:49: APTT 44.2 H 09/07/24 05:32: POC Glucose 199 H 09/07/24 07:29: Sodium 138, Potassium 3.8, Chloride 104, Carbon Dioxide 17.7 L, Anion Gap 16 H, BUN 33 H, Creatinine 1.06, Estim Creat Clear Calc 33.01 L, Est GFR (MDRD) Non-Af 51 L, BUN/Creatinine Ratio 30.8 H, Glucose 211 H, Calcium 8.2, Vancomycin Trough 17.4 H 09/07/24 08:46: Blood Type O POSITIVE, Antibody Screen NEGATIVE, Crossmatch See Detail 09/07/24 11:40: APTT 56.3 H 09/07/24 12:18: POC Glucose 201 H 09/07/24 17:35: APTT 42.6 H 09/07/24 18:15: POC Glucose 187 H 09/07/24 19:05: Hgb 9.1 L, Hct 27.1 L 09/07/24 23:26: POC Glucose 181 H Active Medications Active Medications Active Medications: Current Medications Generic Name Dose Route Start Last Admin Trade Name Freq PRN Reason Stop Dose Admin Acetaminophen 1,000 mg 08/27/24 14:00 09/07/24 23:28 Acetaminophen 500 Mg Tablet PO Not Given Q8 ALEXANDER Albuterol Sulfate 2.5 mg 08/27/24 11:20 Albuterol 2.5 Mg/3 Ml Vial.Neb. INHALATION Q2H PRN PRN SOB &/OR WHEEZING Albuterol Sulfate 2.5 mg 09/05/24 15:40 Albuterol 2.5 Mg/3 Ml Vial.Neb. INHALATION Q2H PRN PRN SOB &/OR WHEEZING Amlodipine Besylate 10 mg 08/28/24 10:00 09/05/24 17:31 Amlodipine 10 Mg Tablet PO Not Given DAILY [facility] Protocol Aspirin 81 mg 08/28/24 08:00 09/07/24 11:06 Aspirin E.C. 81 Mg Tablet PO Not Given DAILY@0800 [facility] Bisacodyl 10 mg 08/30/24 14:44 Bisacodyl 10 Mg Suppository RC DAILY PRN HEMORRHOIDS Clopidogrel Bisulfate 75 mg 08/28/24 10:00 09/07/24 11:07 Clopidogrel Bisulfate 75 Mg Tablet PO Not Given DAILY ALEXANDER Glucagon 1 mg 08/27/24 11:20 Glucagon 1 Mg/Ml Syringe IM X1 PRN HYPOGLYCEMIA Protocol Guaifenesin 10 ml 09/05/24 15:40 Guaifenesin 10 Ml Udc (200mg/10ml) PO Q4H PRN PRN COUGH Heparin Sodium (Porcine) 0 unit 09/06/24 10:50 09/06/24 22:26 Heparin Injection (Vial) 5,000 Unit/Ml Vial IV 1,000 unit UD PRN Administration dose adjustment Protocol Dextrose 250 mls @ 0 mls/hr 08/27/24 11:20 Dextrose 10%-Water IV .Q0M PRN HYPOGLYCEMIA Protocol As Directed Ampicillin Sodium/Sulbactam 112 mls @ 150 mls/hr 08/27/24 12:00 09/07/24 23:29 Sodium 3 gm/ Sodium Chloride IV 150 mls/hr Q6 ALEXANDER Administration Vancomycin IV-PHARMACY TO DOSE 500 mls @ 250 mls/hr 08/27/24 11:20 1 each/ Sodium Chloride IV X1 PRN Rx to Dose Protocol Sodium Chloride 100 mls @ 15 mls/hr 08/27/24 11:22 09/07/24 18:19 IV 15 mls/hr .Q6H40M PRN Administration Saline Flush Sodium Chloride 100 mls @ 15 mls/hr 08/27/24 11:22 IV .Q6H40M PRN Additional IVPB Infusion Vancomycin HCl 500 mg in 100 mls @ 100 mls/hr 09/05/24 20:00 09/07/24 20:10 IV 100 mls/hr Q12H ALEXANDER Administration Heparin Sodium/Dextrose 25,000 units in 250 mls @ 8 mls/hr 09/06/24 10:40 09/07/24 19:30 CONT INF 700 units/hr .[id number] ALEXANDER 7 mls/hr Titration Protocol Insulin Human Lispro 0 unit 09/06/24 18:00 09/07/24 18:19 Insulin Lispro 100 Unit/Ml Insuln.Pen SC Not Given Q6H [facility] Protocol Lisinopril 20 mg 09/03/24 10:00 09/05/24 17:31 Lisinopril 20 Mg Tablet PO Not Given DAILY [facility] Protocol Melatonin 3 mg 08/27/24 11:20 Melatonin 3 Mg Tablet PO QHS PRN PRN INSOMNIA Metoprolol Tartrate 25 mg 08/27/24 14:00 09/05/24 17:30 Metoprolol Tartrate 25 Mg Tablet PO Not Given TID [facility] Protocol Morphine Sulfate 2 mg 09/02/24 13:26 09/06/24 14:14 Morphine 2 Mg/Ml Syringe IV 2 mg Q3H PRN PRN Administration Pain Score 6-10 Nitroglycerin 0.4 mg 08/27/24 11:20 Nitroglycerin (Inpatient Use) 0.4 Mg Tab.Subl SL Q5M PRN chest pain Nutritional Formula (Lactose Free) 120 ml 08/27/24 12:00 09/07/24 17:59 Glucerna Shake 120 Ml Liquid PO Not Given TIDCM [facility] Ondansetron HCl 4 mg 08/27/24 11:20 Ondansetron 4 Mg/2 Ml Vial IV Q8H PRN PRN NAUSEA/VOMITING Oxycodone HCl 5 mg 08/27/24 11:20 09/04/24 21:14 Oxycodone 5 Mg Tablet PO 5 mg Q4H PRN PRN Administration Pain Score 4-10 Polyethylene Glycol 17 gm 08/29/24 10:00 09/07/24 23:28 Polyethylene Glycol 3350 17 Gm Packet PO Not Given BID ALEXANDER Sodium Chloride 10 - 40 ml 08/27/24 11:22 09/07/24 18:24 0.9% Saline Lock 10 Ml Syringe IV 10 ml UD PRN Administration SALINE FLUSH Throat Lozenges 1 lozenge 09/05/24 15:40 Benzocaine/Menthol 1 Lozenge MUCOUS MEM Q2H PRN PRN SORE THROAT Vancomycin Protocol 1 lab 09/09/24 06:30 Vancomycin Trough/Random Due MC 09/09/24 08:30 DAILY ALEXANDER NIHSS NIHSS Nursing Documentation NIHSS Nursing Documentation: NIHSS: Ischemic Stroke/TIA Start: 09/05/24 20:29 Text: For PCU Patients: NIH and Neuro Check every 4 Status: Active hours, PRN and with change in RN caregiver. Freq: Q4H Protocol: Activity Type Activity Date Activity User E-sign Co-sign Detail Recorded Client Recorded Date Recorded By Document 09/07/24 16:00 HS desktop 09/07/24 17:53 HS 09/07/24 16:00 NIH Stroke Scale [NIHSS] A score of 0 is normal or asymptomatic . Total possible score is 42. Inpatient: RN or Physician to activate a stroke alert for onset of new stroke symptoms or with NIHSS increase >/= 3 points. Following change in neurological status, NIHSS will be performed per physician order or more frequently PRN. -1a. Level of Consciousness 0 - Alert; keenly responsive -1b. LOC Questions 0 - Answers BOTH questions correctly -1c. LOC Commands 0 - Performs BOTH tasks correctly -2. Best Gaze 1 - Partial gaze palsy; -3. Visual 1 - Partial hemianopia -4. Facial Palsy 2 - Partial paralysis ( total or near- total paralysis of lower face) -5a. Left Arm 4 - No movement -5b. Right Arm 0 - No drift; arm holds 90 ( or 45) degrees for full 10 seconds -6a. Left Leg 3 - No effort against gravity ; leg falls to bed immediately -'UN' explanation unable to perform d/t surgery -7. Limb Ataxia 1 - Present in 1 limb -8. Sensory 1 - Mild-to- moderate sensory loss; -9. Best Language 1 - Mild-to- moderate aphasia; -10. Dysarthria 1 = Mild-to- moderate dysarthria; -11. Extinction and Inattention 1 - Visual, tactile, auditory, spatial, or personal inattention; -Total 16 Query Text:A score of 0 is normal or asymptomatic. Total possible score is 42 . ED: Notify Physician for NIHSS increase by > / = 3 points. Inpatient: RN or Physician to activate a stroke alert for NIHSS increase of > / = 3 points. Coma Scale [Assess] -Eye Opening Spontaneous -Motor Obeys Commands -Verbal Oriented [Total] -Coma Scale Total 15
[2024-09-08 01:47] LABS: Partial Thromboplast Time 57.4 Seconds (24.1-36.2)
--- NOTE | 2024-09-08 02:18 | EKG12_ITS ---
Test Reason : Blood Pressure : */* mmHG Vent. Rate : 77 BPM Atrial Rate : 77 BPM P-R Int : 182 ms QRS Dur : 128 ms QT Int : 434 ms P-R-T Axes : 52 -8 15 degrees QTcB Int : 491 ms Normal sinus rhythm Right bundle branch block Septal infarct , age undetermined Abnormal ECG When compared with ECG of 08-Sep-2024 02:27, MANUAL COMPARISON REQUIRED DATA IS UNCONFIRMED Confirmed by Danielito Heard ([id number]), continuity editor JOSR CAREY ([id number]) on 09/12/2024 8:46:55 AM Referred By: VINCE Confirmed By: Danielito Heard
[2024-09-08 02:46] LABS: Absolute Lymphocyte Count 1.68 X10^3/uL (0.83-4.51); Absolute Neutrophil Count 8.4 X10^3/uL (2.0-7.7); Basophil# 0.02 X10^3/uL; Basophil% 0.2 % (0-1); Eosinophil# 0.01 X10^3/uL; Eosinophils% 0.1 % (0-5); Hematocrit 28.1 % (37-47); Hemoglobin 9.5 g/dL (12.0-15.0); Lymphocyte # 1.68 X10^3/ul (0.83-4.51); Lymphocyte % 14.7 % (19-41); Mean Corp Hgb Conc 33.8 g/dL (32-36); Mean Corpuscular Hgb 28.1 pg (27.0-32.0); Mean Corpuscular Volume 83.1 fL (81-99); Monocyte# 1.25 X10^3/uL; Monocyte% 10.9 % (0-10); NRBC Flagged by Analyzer 0.4 % (0-5); Neutrophil % 73.5 % (47-70); Platelet Count 262 K/mm3 (150-450); RBC Distribution Width CV 18.3 % (11.6-14.6); RBC Distribution Width SD 54.4 fl (35.1-43.9); Red Blood Count 3.38 M/mm3 (4.2-5.4); White Blood Count 11.4 K/mm3 (4.4-11.0)
--- NOTE | 2024-09-08 02:49 | PCM.HOSP.N ---
Hospitalist Note Notified by nursing staff that patient's heart rate jumped into the 130s to 140s and was sustaining there. EKG obtained and showed what appeared to be A-fib with RVR. No prior diagnosis of A-fib noted in chart. Blood pressure stable in the 130s over 60s and patient asymptomatic. Is already on a heparin drip. Has not been getting p.o. Lopressor given her swallowing issues. Will give IV Lopressor 5 mg x 1 and assess response.
[2024-09-08] MEDS: Metoprolol Tartrate 5 MG/5 ML Vial IV ×3 (03:00→18:45)
[2024-09-08] MEDS: 0.9% Saline Lock 10 ML Syringe IV ×4 (03:01→18:45)
[2024-09-08 03:09] LABS: Anion Gap 14 (5-15); BUN 31 mg/dL (4-19); BUN/Creat Ratio 31.5 RATIO (10-20); Calcium,Total 8.3 mg/dL (7.6-11.0); Carbon Dioxide 19.8 mmol/L (21.0-32.0); Chloride 107 mmol/L (98-108); Creatinine, Serum 0.97 mg/dL (0.70-1.20); EST Glomerular Filtration Rate 56 (>60); Estimated Creatinine Clearance 36.07 ml/min (50-250); Glucose 198 mg/dL (70-99); Magnesium 2.5 mg/dL (1.5-2.2); Potassium 3.3 mmol/L (3.3-5.1); Sodium Level 141 mmol/L (133-145)
[2024-09-08] MEDS: Ampicillin/Sulbactam 3 GM in 0.9% Normal Saline (100mL MB+) 100 ML IV (05:24)
[2024-09-08] MEDS: Insulin Lispro 100 UNIT/ML INSULN.PEN SC ×2 (05:34→12:06)
[2024-09-08 05:50] LABS: Bedside Glucose 212 mg/dL (74-106)
[2024-09-08] MEDS: HEPARIN/D5w 25,000 UNITS 25,000 UNITS/250 ML IV.SOLN. 7 UNITS CONT INF (07:13)
[2024-09-08] MEDS: Vancomycin IV 500 MG/100 ML BAG 100 MG IV (08:37)
[2024-09-08] MEDS: Diltiazem 125 MG in Dextrose 5%-Water (100mL Bag) 100 ML IV (08:54)
[2024-09-08 09:02] LABS: Partial Thromboplast Time 51.2 Seconds (24.1-36.2)
--- NOTE | 2024-09-08 10:23 | PCM.PN.ID ---
Physical Exam Narrative Feeling ok, no fever, family at bedside. Const alert Resp normal air movement and clear to auscultation bilaterally Cardio regular rate and regular rhythm GI soft to palpation, non-tender and non-distended Skin no rashes or lesions noted ID ID: Route of nutrition/ use of supplements: [] Nutritional Intake: [] IV Site: [] White Catheter: [] Assessment & Plan Assessment/Plan (1) Osteomyelitis of great toe of right foot: PLAN: On vanc/unasyn, podiatry and vascular following. OR for toe amp 09/01. Bone cx with CoNS. Neurology consulted. Will stop abx today given presumed clean margins. Will follow prn (2) Other specified peripheral vascular diseases:
--- NOTE | 2024-09-08 10:50 | PN.HOSP_ITS ---
Subjective Subjective Appears to now be in A-fib. Received multiple doses of metoprolol overnight, will place her on a low-dose Cardizem drip. She is already on a heparin drip for anticoagulation. Antibiotics were discontinued. Hopefully can proceed with the modified barium swallow today Objective Data Objective Data Vital Signs: Vital Signs Temp Pulse Resp BP Pulse Ox O2 Del Method O2 Flow Rate 98.3 F 116 H 29 H 123/73 H 96 Room Air 2 09/08/24 07:00 09/08/24 10:10 09/08/24 10:10 09/08/24 10:10 09/08/24 10:10 09/08/24 10:10 09/05/24 17:15 Oxygen Flow Rate (L/min) 2 Oxygen Delivery Method Room Air Weight: 137 lb 5.568 oz Body Mass Index (BMI) 22.8 Intake & Output: Intake and Output for Last 24 Hours 09/07/24 09/08/24 09/09/24 03:59 03:59 03:59 Intake Total 1743.53 / 1743.53 1721.25 / 1721.25 419.85 / 419.85 Output Total 1100 / 1100 450 / 450 250 / 250 Balance 643.53 / 643.53 1271.25 / 1271.25 169.85 / 169.85 Medical Nutrition Assessment Dietitian: Malnutrition Criteria Met Start: 09/01/24 10:45 Freq: Status: Active Protocol: Document 09/06/24 14:40 SB (Rec: 09/06/24 14:40 SB [id number]) Nutrition Malnutrition Evidence of Yes Malnutrition Exists Malnutrition (severe Chronic ): Evidenced By Suboptimal Energy Intake (Moderate),Weight Loss (Severe ),Physical Changes (Moderate) Intake Problem Increased Nutrient Needs (specify) Etiology protein and amino acids to support wound healing Signs/Symptoms as evidenced by R foot diabetic ulcer Status Active Problem Clinical Problem Chronic Disease or Condition Related Malnutrition Etiology severe protein-calorie malnutrition in the context of chronic disease and debility related to advanced age and inadequate energy intake Signs/Symptoms as evidenced by ~10-12% unintentional weight loss x past 3-4 months, BMI 19.9 and mild to moderate muscle wasting and fat depletion in the clavicle, orbitals and temporal regions; PO meeting less than 75% estimated nutrition needs Status Active Problem Recommendation Dietitian Recommend advanced diet as tolerated to liberalized Recommendations/ carbohydrate-controlled (no caloric restriction). Changes As diet is advanced, continue 4 oz glucerna shake 3 times per day w/ medpass and fruit punch flavored Darci 2 times per day with breakfast and dinner to support wound healing. Trend weights as available and optimize ONS to support weight stability and wound healing. Lab / Micro Data 09/08/24 02:36 09/08/24 02:36 Labs: Laboratory Results - last 24 hr 09/07/24 08:46: Blood Type O POSITIVE, Antibody Screen NEGATIVE, Crossmatch See Detail 09/07/24 11:40: APTT 56.3 H 09/07/24 12:18: POC Glucose 201 H 09/07/24 17:35: APTT 42.6 H 09/07/24 18:15: POC Glucose 187 H 09/07/24 19:05: Hgb 9.1 L, Hct 27.1 L 09/07/24 23:26: POC Glucose 181 H 09/08/24 01:30: APTT 57.4 H 09/08/24 02:36: WBC 11.4 H, RBC 3.38 L, Hgb 9.5 L, Hct 28.1 L, MCV 83.1 D, MCH 28.1, MCHC 33.8, RDW Std Deviation 54.4 H, RDW Coeff of Kathy 18.3 H, Plt Count 262, MPV 10.0, Immature Gran % (Auto) 0.600, Neut % (Auto) 73.5 H, Lymph % (Auto) 14.7 L, [place] % (Auto) 10.9 H, Eos % (Auto) 0.1, Baso % (Auto) 0.2, A bsolute Neuts (auto) 8.4 H, Absolute Lymphs (auto) 1.68, Nucleated RBC % 0.4, Sodium 141, Potassium 3.3, Chloride 107, Carbon Dioxide 19.8 L, Anion Gap 14, B UN 31 H, Creatinine 0.97, Estim Creat Clear Calc 36.07 L, Est GFR (MDRD) Non-Af 56 L, BUN/Creatinine Ratio 31.5 H, Glucose 198 H, Calcium 8.3, Magnesium 2.5 H 09/08/24 05:32: POC Glucose 212 H 09/08/24 07:30: APTT 51.2 H Micro: Microbiology 09/01/24 Unknown Bone - Great Toe Gram Stain - Final 09/01/24 Unknown Bone - Great Toe Wound Culture - Final Coag Negative Staph 09/01/24 Unknown Bone - Great Toe Anaerobic Culture - Final No anaerobic bacteria isolated. 08/27/24 11:35 Wound - Other Skin and Soft Tissue MRSA/MSSA (PCR - Final Physical Exam Narrative General: Drowsy but alert to voice, cooperative, No apparent distress HEENT: Atraumatic, PERRLA, EOMI, Normocephalic Oral: Moist Mucosa Neck: Supple, No JVD Lungs: Diminished, Normal air movement, No rhonchi, No wheeze, No rales Cardiovascular: Tachycardic, Regular Rhythm, Normal S1, Normal S2, No murmurs Abdomen: Soft, Non Tender, Non-Distended, No Hepato-splenomegaly Extremities: No edema, Capillary Refill Less than 3 Seconds Skin: Right great toe amputation site is currently dressed, CDI Musculoskeletal: No Tenderness to Palpation of Joints or Extremities Neurological: 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 Diabetic foot infection with a right first toe osteomyelitis status post amputation on 09/01/2024/PAD status post right common femoral endarterectomy with right femoral to anterior tibial bypass with right external iliac vein angioplasty and stent with a right sartorius flap on 09/05/2024 ? She has completed her antibiotic course ? ID has been consulted ? Wound cultures positive for MRSA ? PT/OT ? She received 2 units of blood yesterday 2. Acute CVA ? NIH has had continued to worsen she is now at a 16, repeat CT brain was negative for bleeding ? MRI with scattered small acute right sided supratentorial infarcts located in the frontal lobe as well as in the temporal and occipital lobe, the distribution suggested a watershed etiology ? She was deemed to not be a TNK candidate due to her recent major surgery ? PT/OT/speech ? Will not repeat an echocardiogram as she had one on 08/12/2024 ? Right coronary arteries are occluded and she has had a previous left endarterectomy ?Awaiting modified barium swallow to determine prognosis as she is not a candidate for tube feeds or PEG tube placement 3. Essential HTN/HLD/CAD status post stent/A-fib ? Continue with her home blood pressure medications ? Unfortunately she is allergic to statins due to myalgias ? Continue with aspirin and Plavix ? She did go into A-fib overnight, continue with Cardizem drip and the heparin drip 4. DM2 ? Continue with insulin ? Accu-Cheks ACHS ? Will monitor and make adjustments as necessary ? Will hold her home oral medications DVT: SCDs Charges/Coding Visit Charges Inpatient E&M: 30064 Subs Hosp L2
[2024-09-08 12:27] LABS: Bedside Glucose 238 mg/dL (74-106)
--- NOTE | 2024-09-08 13:08 | ST.MBS ---
Modified Barium Swallow Patient Information Study Date: 09/08/24 Study Time: 13:00 Direct Billable Minutes: 110 Total Minutes procedure & reportin Diagnosis: Debility R53.81 Referring Physician: Joe Jefferson Reason for Referral: Assess swallow function, assess risk for aspiration, and determine recommendations for least restrictive diet textures and dysphagia interventions. Medical History: The patient has a history of diabetic foot infection with right first toe osteomyelitis, status post amputation on 09/01/2024, and peripheral arterial disease, status post right common femoral endarterectomy with [id number] tibial bypass and right external iliac vein angioplasty with stenting, followed by sartorius flap closure on 09/05/2024. She underwent right lower extremity surgery yesterday and developed stroke-like symptoms around 7:30 PM. A heparin bolus was given intraoperatively. [facility] evaluated the patient and determined that TNK was not indicated (NIHSS at that time: 4). Overnight, her neurological status worsened, and 09/06/2024 her NIHSS score was approximately 16. Repeat head CT was negative for hemorrhage. MRI showed scattered small acute right-sided supratentorial infarcts, primarily in the frontal lobe with suspected involvement of the temporal and occipital lobes, consistent with a watershed pattern. No mass effect or hemorrhagic conversion noted. Mild owtyq-wlldmfz-gzkx-left mastoid effusions were also seen. Speech therapy was consulted per CVA protocol. Pt was recommended NPO w/ sips of water for pt comfort when fully alert w/ plan for MBSS prior to diet advancement. 09/07/2024 she was not sufficiently alert for MBSS. Today, EYEGLASS ASSEMBLER saw the patient at bedside and cleared her for participation in MBSS. Current Diet Ordered: NPO, sips of water by tsp after oral care if alert Dentition: Partials and Missing Teeth (Few natural teeth) Mental Status: Impaired (Lethargic, but able to remain awake) Respiratory Status: Oxygenating on 3L/M nasal cannula Penetration-Aspiration Scale Penetration-Aspiration Scale: OBJECTIVE ASSESSMENT OF SWALLOW FUNCTION (QUANTITATIVE ? PER TRIAL): PENETRATION / ASPIRATION SCALE (CASTELLANOS): 1 = does not enter airway 2 = enters airway/above vocal folds/ejected 3 = enters airway/above vocal folds/not ejected 4 = enters airway/contacts vocal folds/ejected 5 = enters airway/contacts vocal folds/not ejected 6 = enters airway/below vocal folds/ejected 7 = enters airway/below vocal folds/not ejected despite effort 8 = enters airway/below vocal folds/no effort VIDEOFLOROSCOPIC SCALE SCORE (CASTELLANOS): Grade I = aspiration of material that has penetrated into the laryngeal vestibule, intact cough reflex Grade II = aspiration < 10 % of the bolus, intact cough reflex Grade III = aspiration of < 10 % of the bolus, reduced cough reflex or aspiration of > 10 % of the bolus, intact cough reflex Grade IV = aspiration of > 10 % of the bolus, reduced cough reflex Penetration-Aspiration Scale Score Thin Liquid via teaspoon: Result: 7= enters airways/below vocal folds/not ejected despite effort [place] Thick Liquid via teaspoon: Result: 1= does not enter airway [place] Thick Liquid via teaspoon Trial 2: Result: 1= does not enter airway [place] Thick Liquid via small single sip: cup: Result: 1= does not enter airway Pudding via teaspoon: Result: 1= does not enter airway Comment: Esophageal screen = Retention in the middle and lower esophagus w/ retrograde flow. [place] Thick Liquid via small single sip: cup Trial 2: Result: 1= does not enter airway Comment: Esophageal screen = Retention in the middle and lower esophagus w/ retrograde flow. [place] Thick Liquid via small single sip: cup Trial 3: Result: 1= does not enter airway Comment: Esophageal screen = Retention in the middle and lower esophagus w/ retrograde flow to the upper esophagus. Oral Phase Labial Seal: Escape beyond mid-chin Tongue Control During Bolus Hold: Posterior escape of less than half of bolus Bolus Transport/Lingual Motion: Repetitive/disorganized tongue motion Oral Residue: Residue collection on oral structures Pharyngeal Phase Initiation of Pharyngeal Swallow: Bolus head in pyriforms (thin by tsp spilled to the trachea prior to swallow onset) Soft Palate Elevation: Trace column of contrast/air between soft palate and pharyngeal wall Laryngeal Elevation: Partial superior movement thyroid cart/partial apprx aryt-epig petiole Anterior Hyoid Excursion: Partial anterior movement Epiglottic Movement: Partial inversion Laryngeal Vestibule Closure at Height of Swallow: Incomplete; narrow column of air/contrast in laryngeal vestibule Pharyngeal Stripping Wave: Present - diminished Pharyngoesophageal Segment Opening: Parital distension and partial duration; parital obstruction of flow Tongue Base Retraction: Narrow column of contrast between tongue base & post. pharyngeal wall Pharyngeal Residue: Collection of residue within or on pharyngeal structures Esophageal Phase Esophageal Clearance: Esophageal retention w/ retrograde flow below pharyngoesophageal seg. Diagnosis/Impression Diagnosis: Moderate oropharyngeal dysphagia R13.12; Esophageal dysphagia R13.14 Impression: The oral phase is primarily marked by... -Poor labial seal w/ anterior loss of liquids past chin. -Poor bolus control w/ posterior escape of thin liquids to the trachea prior to swallow onset resulting in aspiration before the swallow. -Lingual pumping. -Mild-moderate oral residue. -Did not assess mastication of cookie due to poor bolus control and poor esophageal clearance w/ purees and liquids. The pharyngeal phase is primarily marked by... -Delayed swallow onset. -Decreased pharyngeal motility due to decreased TB retraction and pharyngeal stripping wave w/ mild pharyngeal residues. -Decreased airway closure w/ aspiration of thin liquids before the swallow. Reflexive cough weak and not effective in clearing aspirated contrast. The esophageal phase is primarily marked by... -Retention of pudding and liquids in the lower and middle esophagus w/ retrograde flow. -Lower esophagus appears tortuous. Recommendations Diet: NPO Comment: Ok for limited puree textures / mildly thick liquids (small cup sips) for patient comfort and after oral care, 5-10 bites and/or sips at a time, 3-5X daily. TOTAL FEED. Recommend Repeat Modified Barium Swallow: TBD Need for Skilled Speech Therapy Services: Yes Comment: -Continue trials of puree / nectar for pleasure/comfort. Pending care plans, repeat MBSS when deemed clinically appropriate by EYEGLASS ASSEMBLER. -Implement oral motor and oropharyngeal exercises as tolerated (labial strengthening, lingual strengthening, effortful swallows, Monik, and Ewa if able to execute). Recommended Referrals: GI Consult (If/when medically appropriate. Per Dr. Jefferson, the patient is not medically appropriate for GI interventions in current state. Physician is planning to have a care discussion w/ family.) Education Completed: 1. Described result of evaluation. (Physician to discuss results of MBSS w/ family), 2. Pt understands evaluation & agrees with goals and treatment plan. and 7. Pt requires further education on strategies & risks. Status Active ST Patient: Active Contact Information [facility] Speech Therapy:: Ro Meyer M.A. [facility]-EYEGLASS ASSEMBLER? Speech-Language Pathologist?? [facility] [address] [place] [address]? [email or web address]?? [phone]
--- NOTE | 2024-09-08 15:21 | CHAPLAIN ---
Type of Pastoral Visit ___ Initial Visit _x__ Follow-up Visit ___ On-call Visit ___ General Patient Visit ___ Spiritual Assessment ___ Family Conference ___ Bereavement ___ Rapid Response ___ Code Blue ___ Other (describe below) Pastoral Care Referral From ___ Patient _x__ Family ___ Nurse ___ Physician ___ Drop Wire Aligner ___ Chief Relay Tester ___ Other (describe below) Sacrament/Intervention ___ Active listening ___ Anointing ___ Restoration ___ Bereavement ___ Communion ___ Micheline exploration ___ ___ Life review _x__ Prayer ___ Reconciliation ___ Sacrament of Sick _x__ Supportive presence ___ Wedding _x__ Other (describe below) Pastoral Comments this was a follow up visit as requested by family members; family specifically asked for scriptures to be read to the patient; a granddaughter was in the room at time of visit but she excused herself to allow this supervisor framing mill to sit at bedside and read; later in the visit two more granddaughters arrived to see the patient; pt acknowledges each of them and the presence of this supervisor framing mill; pt responds favorably to offer of reading from the Bible to her; as several psalms were being read, the patient is quiet and at times seems to nap; but when spoken to the patient responds by voice;
--- NOTE | 2024-09-08 15:41 | EKG12_ITS ---
Test Reason : SVT Blood Pressure : */* mmHG Vent. Rate : 136 BPM Atrial Rate : * BPM P-R Int : * ms QRS Dur : 138 ms QT Int : 354 ms P-R-T Axes : * -20 14 degrees QTcB Int : 532 ms Atrial fibrillation with rapid ventricular response Right bundle branch block Abnormal ECG Confirmed by Danielito Heard ([id number]), film or videotape editor DAIANA HUSSEIN ([id number]) on 09/09/2024 7:08:10 AM Referred By: Confirmed By: Danielito Heard
[2024-09-08 19:12] LABS: Bedside Glucose 185 mg/dL (74-106)
--- NOTE | 2024-09-08 19:22 | PN.SURG_ITS ---
Subjective Subjective Saw patient in bed today, she was responsive to questions. NIH stable at 15-16. She did not do well with swallow study. She went in to Afib last night. Objective Data Objective Data Vital Signs: Vital Signs Temp Pulse Resp BP Pulse Ox O2 Del Method O2 Flow Rate 98.8 F 75 18 148/58 H 97 Room Air 2 09/08/24 15:00 09/08/24 18:45 09/08/24 18:31 09/08/24 18:31 09/08/24 18:31 09/08/24 18:31 09/05/24 17:15 Oxygen Flow Rate (L/min) 2 Oxygen Delivery Method Room Air Weight: 137 lb 5.568 oz Body Mass Index (BMI) 22.8 Intake & Output: Intake and Output for Last 24 Hours 09/06/24 09/07/24 09/08/24 23:59 23:59 23:59 Intake Total 1743.53 / 1743.53 1721.25 / 1721.25 675.81 / 675.81 Output Total 1150 / 1400 400 / 700 850 / 850 Balance 593.53 / 343.53 1321.25 / 1021.25 -174.19 / -174.19 Medical Nutrition Assessment Dietitian: Malnutrition Criteria Met Start: 09/01/24 10:45 Freq: Status: Active Protocol: Document 09/06/24 14:40 SB (Rec: 09/06/24 14:40 SB [id number]) Nutrition Malnutrition Evidence of Yes Malnutrition Exists Malnutrition (severe Chronic ): Evidenced By Suboptimal Energy Intake (Moderate),Weight Loss (Severe ),Physical Changes (Moderate) Intake Problem Increased Nutrient Needs (specify) Etiology protein and amino acids to support wound healing Signs/Symptoms as evidenced by R foot diabetic ulcer Status Active Problem Clinical Problem Chronic Disease or Condition Related Malnutrition Etiology severe protein-calorie malnutrition in the context of chronic disease and debility related to advanced age and inadequate energy intake Signs/Symptoms as evidenced by ~10-12% unintentional weight loss x past 3-4 months, BMI 19.9 and mild to moderate muscle wasting and fat depletion in the clavicle, orbitals and temporal regions; PO meeting less than 75% estimated nutrition needs Status Active Problem Recommendation Dietitian Recommend advanced diet as tolerated to liberalized Recommendations/ carbohydrate-controlled (no caloric restriction). Changes As diet is advanced, continue 4 oz glucerna shake 3 times per day w/ medpass and fruit punch flavored Darci 2 times per day with breakfast and dinner to support wound healing. Trend weights as available and optimize ONS to support weight stability and wound healing. Lab / Micro Data 09/08/24 02:36 09/08/24 02:36 Labs: Laboratory Results - last 24 hr 09/07/24 19:05: Hgb 9.1 L, Hct 27.1 L 09/07/24 23:26: POC Glucose 181 H 09/08/24 01:30: APTT 57.4 H 09/08/24 02:36: WBC 11.4 H, RBC 3.38 L, Hgb 9.5 L, Hct 28.1 L, MCV 83.1 D, MCH 28.1, MCHC 33.8, RDW Std Deviation 54.4 H, RDW Coeff of Kathy 18.3 H, Plt Count 262, MPV 10.0, Immature Gran % (Auto) 0.600, Neut % (Auto) 73.5 H, Lymph % (Auto) 14.7 L, [place] % (Auto) 10.9 H, Eos % (Auto) 0.1, Baso % (Auto) 0.2, A bsolute Neuts (auto) 8.4 H, Absolute Lymphs (auto) 1.68, Nucleated RBC % 0.4, Sodium 141, Potassium 3.3, Chloride 107, Carbon Dioxide 19.8 L, Anion Gap 14, B UN 31 H, Creatinine 0.97, Estim Creat Clear Calc 36.07 L, Est GFR (MDRD) Non-Af 56 L, BUN/Creatinine Ratio 31.5 H, Glucose 198 H, Calcium 8.3, Magnesium 2.5 H 09/08/24 05:32: POC Glucose 212 H 09/08/24 07:30: APTT 51.2 H 09/08/24 12:03: POC Glucose 238 H 09/08/24 15:09: APTT 71.0 H 09/08/24 18:32: POC Glucose 185 H Micro: Microbiology 09/01/24 Unknown Bone - Great Toe Gram Stain - Final 09/01/24 Unknown Bone - Great Toe Wound Culture - Final Coag Negative Staph 09/01/24 Unknown Bone - Great Toe Anaerobic Culture - Final No anaerobic bacteria isolated. 08/27/24 11:35 Wound - Other Skin and Soft Tissue MRSA/MSSA (PCR - Final Physical Exam Const alert General Appearance: cooperative HEENT normocephalic Face and Sinus: flattened naso-labial fold Laterality: Left Nose: external nose normal External Ear: external ears normal Resp normal respiratory effort, no retractions and no use of accessory muscles Cardio regular rate and regular rhythm Extremity Extremity Narrative: R groin incision site with Prevena dressing intact; no significant edema, ecchymosis; no drainage in canister; soft to palpation R leg incision sites satisfactory in appearance, dressings C/D/I without bleed- through. No apparent hematoma. Good signal through bypass and multiphasic at R DP, monophasic but strong R PT signal Skin no rashes or lesions noted Psych Attitude: calm Assessment & Plan Assessment/Plan (1) Peripheral vascular disease: PLAN: Incision sites and bypass satisfactory on exam; bypass is tunneled along the lateral aspect of the leg so continue to be cautious to avoid pressure along the leg, avoid external rotation and lying on the R side. Recommend foam boots for offloading the bilateral feet. Continue DAPT. Charges/Coding Procedures Integumentary [id number]: [id number] Global Visit
[2024-09-08 22:02] LABS: Partial Thromboplast Time 62.6 Seconds (24.1-36.2)
[2024-09-09] VITALS (9 sets, daily range): BP systolic 144–166; BP diastolic 58–75; PULSE 77–87; RESP 16–19; TEMP 36.3–36.9; O2SAT 93–97; BMI 23.6
[2024-09-09] MEDS: Metoprolol Tartrate 5 MG/5 ML Vial IV ×4 (00:32→18:34)
[2024-09-09 03:56] LABS: Absolute Lymphocyte Count 1.83 X10^3/uL (0.83-4.51); Absolute Neutrophil Count 8.7 X10^3/uL (2.0-7.7); Basophil# 0.03 X10^3/uL; Basophil% 0.3 % (0-1); Eosinophil# 0.04 X10^3/uL; Eosinophils% 0.3 % (0-5); Hematocrit 29.7 % (37-47); Hemoglobin 9.8 g/dL (12.0-15.0); Lymphocyte # 1.83 X10^3/ul (0.83-4.51); Lymphocyte % 15.5 % (19-41); Mean Corpuscular Hgb 28.2 pg (27.0-32.0); Mean Corpuscular Volume 85.3 fL (81-99); Mean Platelet Vol. 10.4 fl (6.2-12.0); Monocyte# 1.19 X10^3/uL; Monocyte% 10.1 % (0-10); NRBC Flagged by Analyzer 0.3 % (0-5); Neutrophil # 8.65 X10^3/uL (2.7-7.7); Neutrophil % 73.4 % (47-70); Platelet Count 272 K/mm3 (150-450); RBC Distribution Width CV 18.8 % (11.6-14.6); Red Blood Count 3.48 M/mm3 (4.2-5.4); White Blood Count 11.8 K/mm3 (4.4-11.0)
[2024-09-09 04:06] LABS: Partial Thromboplast Time 50.3 Seconds (24.1-36.2)
[2024-09-09 04:25] LABS: Anion Gap 13 (5-15); BUN 38 mg/dL (4-19); BUN/Creat Ratio 36.8 RATIO (10-20); Calcium,Total 8.5 mg/dL (7.6-11.0); Carbon Dioxide 21.5 mmol/L (21.0-32.0); Chloride 108 mmol/L (98-108); Creatinine, Serum 1.02 mg/dL (0.70-1.20); EST Glomerular Filtration Rate 53 (>60); Estimated Creatinine Clearance 34.31 ml/min (50-250); Glucose 197 mg/dL (70-99); Potassium 3.5 mmol/L (3.3-5.1); Sodium Level 142 mmol/L (133-145)
[2024-09-09 06:11] LABS: Bedside Glucose 192 mg/dL (74-106)
[2024-09-09 08:03] LABS: Bedside Glucose 199 mg/dL (74-106)
[2024-09-09 10:58] LABS: Partial Thromboplast Time 55.7 Seconds (24.1-36.2)
--- NOTE | 2024-09-09 11:53 | PN.HOSP_ITS ---
Subjective Subjective More alert this morning but still significant neurological deficits Objective Data Objective Data Vital Signs: Vital Signs Temp Pulse Resp BP Pulse Ox O2 Del Method O2 Flow Rate 97.7 F L 78 19 H 158/66 H 97 Room Air 2 09/09/24 10:47 09/09/24 10:47 09/09/24 10:47 09/09/24 10:47 09/09/24 10:47 09/09/24 10:47 09/05/24 17:15 Oxygen Flow Rate (L/min) 2 Oxygen Delivery Method Room Air Weight: 141 lb 15.643 oz Body Mass Index (BMI) 23.6 Intake & Output: Intake and Output for Last 24 Hours 09/08/24 09/09/24 09/10/24 03:59 03:59 03:59 Intake Total 1721.25 / 1721.25 593.81 / 593.81 175.02 / 175.02 Output Total 450 / 450 650 / 650 125 / 125 Balance 1271.25 / 1271.25 -56.19 / -56.19 50.02 / 50.02 Medical Nutrition Assessment Dietitian: Malnutrition Criteria Met Start: 09/01/24 10:45 Freq: Status: Active Protocol: Document 09/06/24 14:40 SB (Rec: 09/06/24 14:40 SB [id number]) Nutrition Malnutrition Evidence of Yes Malnutrition Exists Malnutrition (severe Chronic ): Evidenced By Suboptimal Energy Intake (Moderate),Weight Loss (Severe ),Physical Changes (Moderate) Intake Problem Increased Nutrient Needs (specify) Etiology protein and amino acids to support wound healing Signs/Symptoms as evidenced by R foot diabetic ulcer Status Active Problem Clinical Problem Chronic Disease or Condition Related Malnutrition Etiology severe protein-calorie malnutrition in the context of chronic disease and debility related to advanced age and inadequate energy intake Signs/Symptoms as evidenced by ~10-12% unintentional weight loss x past 3-4 months, BMI 19.9 and mild to moderate muscle wasting and fat depletion in the clavicle, orbitals and temporal regions; PO meeting less than 75% estimated nutrition needs Status Active Problem Recommendation Dietitian Recommend advanced diet as tolerated to liberalized Recommendations/ carbohydrate-controlled (no caloric restriction). Changes As diet is advanced, continue 4 oz glucerna shake 3 times per day w/ medpass and fruit punch flavored Darci 2 times per day with breakfast and dinner to support wound healing. Trend weights as available and optimize ONS to support weight stability and wound healing. Lab / Micro Data 09/09/24 03:47 09/09/24 03:47 Labs: Laboratory Results - last 24 hr 09/08/24 12:03: POC Glucose 238 H 09/08/24 15:09: APTT 71.0 H 09/08/24 18:32: POC Glucose 185 H 09/08/24 21:35: APTT 62.6 H 09/09/24 00:30: POC Glucose 192 H 09/09/24 03:47: WBC 11.8 H, RBC 3.48 L, Hgb 9.8 L, Hct 29.7 L, MCV 85.3, MCH 28.2, MCHC 33.0, RDW Std Deviation 57.0 H, RDW Coeff of Kathy 18.8 H, Plt Count 272, MPV 10.4, Immature Gran % (Auto) 0.400, Neut % (Auto) 73.4 H, Lymph % (Auto) 15.5 L, [place] % (Auto) 10.1 H, Eos % (Auto) 0.3, Baso % (Auto) 0.3, A bsolute Neuts (auto) 8.7 H, Absolute Lymphs (auto) 1.83, Nucleated RBC % 0.3, A PTT 50.3 H, Sodium 142, Potassium 3.5, Chloride 108, Carbon Dioxide 21.5, Anion Gap 13, BUN 38 H, Creatinine 1.02, Estim Creat Clear Calc 34.31 L, Est GFR (MDRD) Non-Af 53 L, BUN/Creatinine Ratio 36.8 H, Glucose 197 H, Calcium 8.5 09/09/24 05:56: POC Glucose 199 H 09/09/24 10:40: APTT 55.7 H Micro: Microbiology 09/01/24 Unknown Bone - Great Toe Gram Stain - Final 09/01/24 Unknown Bone - Great Toe Wound Culture - Final Coag Negative Staph 09/01/24 Unknown Bone - Great Toe Anaerobic Culture - Final No anaerobic bacteria isolated. 08/27/24 11:35 Wound - Other Skin and Soft Tissue MRSA/MSSA (PCR - Final Physical Exam Narrative General: Alert, cooperative, No apparent distress HEENT: Atraumatic, PERRLA, EOMI, Normocephalic Oral: Moist Mucosa Neck: Supple, No JVD Lungs: Diminished, Normal air movement, No rhonchi, No wheeze, No rales Cardiovascular: Regular rate, Regular Rhythm, Normal S1, Normal S2, No murmurs Abdomen: Soft, Non Tender, Non-Distended, No Hepato-splenomegaly Extremities: No edema, Capillary Refill Less than 3 Seconds Skin: Right great toe amputation site is currently dressed, CDI Musculoskeletal: No Tenderness to Palpation of Joints or Extremities Neurological: 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 Diabetic foot infection with a right first toe osteomyelitis status post amputation on 09/01/2024/PAD status post right common femoral endarterectomy with right femoral to anterior tibial bypass with right external iliac vein angioplasty and stent with a right sartorius flap on 09/05/2024 ? She has completed her antibiotic course ? ID has been consulted ? Wound cultures positive for MRSA ? PT/OT ? She received 2 units of blood yesterday 2. Acute CVA ? NIH has had continued to worsen she is now at a 16, repeat CT brain was negative for bleeding ? MRI with scattered small acute right sided supratentorial infarcts located in the frontal lobe as well as in the temporal and occipital lobe, the distribution suggested a watershed etiology ? She was deemed to not be a TNK candidate due to her recent major surgery ? PT/OT/speech ? Will not repeat an echocardiogram as she had one on 08/12/2024 ? Right coronary arteries are occluded and she has had a previous left endarterectomy ?Awaiting modified barium swallow to determine prognosis as she is not a candidate for tube feeds or PEG tube placement 3. Essential HTN/HLD/CAD status post stent/A-fib ? Continue with her home blood pressure medications ? Unfortunately she is allergic to statins due to myalgias ? Continue with aspirin and Plavix ? She did go into A-fib overnight, continue with Cardizem drip and the heparin drip 4. DM2 ? Continue with insulin ? Accu-Cheks ACHS ? Will monitor and make adjustments as necessary ? Will hold her home oral medications DVT: SCDs 25 minutes spent on advance care planning discussion in regards to prognosis and possible hospice Charges/Coding Multi Select Codes Visit Charges Visit Charges: 12972 Subs Hosp L2 Hospitalists' Procedures Procedures: 02588 Advncd Care Plan 30 Min
[2024-09-09] MEDS: Insulin Lispro 100 UNIT/ML INSULN.PEN SC ×2 (13:09→18:45)
[2024-09-09] MEDS: Dext 5%-0.45% NS 1,000 ML 75 ML IV (13:21)
[2024-09-09] MEDS: 0.9% Saline Lock 10 ML Syringe IV ×2 (13:21→18:35)
[2024-09-09 13:34] LABS: Bedside Glucose 164 mg/dL (74-106)
--- NOTE | 2024-09-09 14:07 | PN.SURG_ITS ---
Subjective Subjective I saw patient this afternoon lying in bed sleeping soundly, no family at bedside at that time. Objective Data Objective Data Vital Signs: Vital Signs Temp Pulse Resp BP Pulse Ox O2 Del Method O2 Flow Rate 97.7 F L 77 19 H 158/66 H 97 Room Air 2 09/09/24 10:47 09/09/24 13:20 09/09/24 10:47 09/09/24 10:47 09/09/24 10:47 09/09/24 10:47 09/05/24 17:15 Oxygen Flow Rate (L/min) 2 Oxygen Delivery Method Room Air Weight: 141 lb 15.643 oz Body Mass Index (BMI) 23.6 Intake & Output: Intake and Output for Last 24 Hours 09/07/24 09/08/24 09/09/24 23:59 23:59 23:59 Intake Total 1721.25 / 1721.25 675.81 / 705.81 205.02 / 205.02 Output Total 400 / 700 850 / 950 225 / 225 Balance 1321.25 / 1021.25 -174.19 / -244.19 -19.98 / -19.98 Medical Nutrition Assessment Dietitian: Malnutrition Criteria Met Start: 09/01/24 10:45 Freq: Status: Active Protocol: Document 09/06/24 14:40 SB (Rec: 09/06/24 14:40 SB [id number]) Nutrition Malnutrition Evidence of Yes Malnutrition Exists Malnutrition (severe Chronic ): Evidenced By Suboptimal Energy Intake (Moderate),Weight Loss (Severe ),Physical Changes (Moderate) Intake Problem Increased Nutrient Needs (specify) Etiology protein and amino acids to support wound healing Signs/Symptoms as evidenced by R foot diabetic ulcer Status Active Problem Clinical Problem Chronic Disease or Condition Related Malnutrition Etiology severe protein-calorie malnutrition in the context of chronic disease and debility related to advanced age and inadequate energy intake Signs/Symptoms as evidenced by ~10-12% unintentional weight loss x past 3-4 months, BMI 19.9 and mild to moderate muscle wasting and fat depletion in the clavicle, orbitals and temporal regions; PO meeting less than 75% estimated nutrition needs Status Active Problem Recommendation Dietitian Recommend advanced diet as tolerated to liberalized Recommendations/ carbohydrate-controlled (no caloric restriction). Changes As diet is advanced, continue 4 oz glucerna shake 3 times per day w/ medpass and fruit punch flavored Darci 2 times per day with breakfast and dinner to support wound healing. Trend weights as available and optimize ONS to support weight stability and wound healing. Lab / Micro Data 09/09/24 03:47 09/09/24 03:47 Labs: Laboratory Results - last 24 hr 09/08/24 15:09: APTT 71.0 H 09/08/24 18:32: POC Glucose 185 H 09/08/24 21:35: APTT 62.6 H 09/09/24 00:30: POC Glucose 192 H 09/09/24 03:47: WBC 11.8 H, RBC 3.48 L, Hgb 9.8 L, Hct 29.7 L, MCV 85.3, MCH 28.2, MCHC 33.0, RDW Std Deviation 57.0 H, RDW Coeff of Kathy 18.8 H, Plt Count 272, MPV 10.4, Immature Gran % (Auto) 0.400, Neut % (Auto) 73.4 H, Lymph % (Auto) 15.5 L, [place] % (Auto) 10.1 H, Eos % (Auto) 0.3, Baso % (Auto) 0.3, A bsolute Neuts (auto) 8.7 H, Absolute Lymphs (auto) 1.83, Nucleated RBC % 0.3, A PTT 50.3 H, Sodium 142, Potassium 3.5, Chloride 108, Carbon Dioxide 21.5, Anion Gap 13, BUN 38 H, Creatinine 1.02, Estim Creat Clear Calc 34.31 L, Est GFR (MDRD) Non-Af 53 L, BUN/Creatinine Ratio 36.8 H, Glucose 197 H, Calcium 8.5 09/09/24 05:56: POC Glucose 199 H 09/09/24 10:40: APTT 55.7 H 09/09/24 13:04: POC Glucose 164 H Micro: Microbiology 09/01/24 Unknown Bone - Great Toe Gram Stain - Final 09/01/24 Unknown Bone - Great Toe Wound Culture - Final Coag Negative Staph 09/01/24 Unknown Bone - Great Toe Anaerobic Culture - Final No anaerobic bacteria isolated. 08/27/24 11:35 Wound - Other Skin and Soft Tissue MRSA/MSSA (PCR - Final Physical Exam Const Constitutional Narrative: sleeping soundly HEENT normocephalic Face and Sinus: flattened naso-labial fold Laterality: Left Nose: external nose normal External Ear: external ears normal Resp normal respiratory effort, no retractions and no use of accessory muscles Cardio regular rate and regular rhythm Extremity Extremity Narrative: R groin incision site with Prevena dressing intact; no significant edema, ecchymosis; no drainage in canister; soft to palpation R leg incision sites satisfactory in appearance, dressings C/D/I without bleed- through. No apparent hematoma. Good signal through bypass and multiphasic at R DP, monophasic but strong R PT signal Skin no rashes or lesions noted Psych Attitude: calm Assessment & Plan Assessment/Plan (1) Peripheral vascular disease: PLAN: Incision sites and bypass satisfactory on exam; continue with offloading efforts to protect bypass along the R leg. Wound care notes reviewed, appears to be healing well at this time. Continue DAPT. Charges/Coding Procedures Integumentary [id number]: [id number] Global Visit
[2024-09-09] MEDS: HEPARIN/D5w 25,000 UNITS 25,000 UNITS/250 ML IV.SOLN. 8 UNITS CONT INF (16:47)
[2024-09-09 17:11] LABS: Partial Thromboplast Time 60.6 Seconds (24.1-36.2)
[2024-09-09 19:00] LABS: Bedside Glucose 193 mg/dL (74-106)
[2024-09-10] VITALS (9 sets, daily range): BP systolic 58–150; BP diastolic 0–73; PULSE 66–80; RESP 14–20; TEMP 36.6–36.9; O2SAT 96–100; BMI 23.6; BMI 24.3
[2024-09-10] MEDS: Insulin Lispro 100 UNIT/ML INSULN.PEN SC ×2 (00:31→05:52)
[2024-09-10] MEDS: Metoprolol Tartrate 5 MG/5 ML Vial IV ×2 (00:32→05:52)
[2024-09-10 01:07] LABS: Bedside Glucose 195 mg/dL (74-106)
[2024-09-10] MEDS: Dext 5%-0.45% NS 1,000 ML 75 ML IV (04:19)
[2024-09-10 05:43] LABS: Partial Thromboplast Time 47.8 Seconds (24.1-36.2)
[2024-09-10] MEDS: 0.9% Saline Lock 10 ML Syringe IV (05:57)
[2024-09-10 06:15] LABS: Bedside Glucose 182 mg/dL (74-106)
[2024-09-10 06:42] LABS: Absolute Lymphocyte Count 1.85 X10^3/uL (0.83-4.51); Absolute Neutrophil Count 7.5 X10^3/uL (2.0-7.7); Basophil# 0.02 X10^3/uL; Basophil% 0.2 % (0-1); Eosinophil# 0.12 X10^3/uL; Eosinophils% 1.1 % (0-5); Hematocrit 29.4 % (37-47); Hemoglobin 9.4 g/dL (12.0-15.0); Lymphocyte # 1.85 X10^3/ul (0.83-4.51); Lymphocyte % 17.6 % (19-41); Mean Corpuscular Hgb 28.1 pg (27.0-32.0); Mean Platelet Vol. 11.1 fl (6.2-12.0); Monocyte# 0.96 X10^3/uL; Monocyte% 9.1 % (0-10); NRBC Flagged by Analyzer 0.5 % (0-5); Neutrophil % 71.5 % (47-70); Platelet Count 295 K/mm3 (150-450); RBC Distribution Width CV 18.2 % (11.6-14.6); RBC Distribution Width SD 57.9 fl (35.1-43.9); Red Blood Count 3.34 M/mm3 (4.2-5.4); White Blood Count 10.5 K/mm3 (4.4-11.0)
[2024-09-10 07:12] LABS: Anion Gap 9 (5-15); BUN 31 mg/dL (4-19); BUN/Creat Ratio 36.8 RATIO (10-20); Calcium,Total 8.2 mg/dL (7.6-11.0); Carbon Dioxide 22.5 mmol/L (21.0-32.0); Chloride 110 mmol/L (98-108); Creatinine, Serum 0.84 mg/dL (0.70-1.20); EST Glomerular Filtration Rate 67 (>60); Estimated Creatinine Clearance 41.66 ml/min (50-250); Glucose 203 mg/dL (70-99); Potassium 3.2 mmol/L (3.3-5.1); Sodium Level 142 mmol/L (133-145)
--- NOTE | 2024-09-10 07:34 | PN.SURG_ITS ---
Subjective Subjective I saw Sofia this morning, she was calm, alert, and conversive. Still with significant neuro deficits. She denies pain in her RLE. Objective Data Objective Data Vital Signs: Vital Signs Temp Pulse Resp BP Pulse Ox O2 Del Method O2 Flow Rate 97.8 F 70 16 140/64 H 100 Room Air 2 09/10/24 04:15 09/10/24 05:52 09/10/24 04:15 09/10/24 05:52 09/10/24 04:15 09/10/24 04:15 09/05/24 17:15 Oxygen Flow Rate (L/min) 2 Oxygen Delivery Method Room Air Weight: 146 lb 2.664 oz Body Mass Index (BMI) 24.3 Intake & Output: Intake and Output for Last 24 Hours 09/08/24 09/09/24 09/10/24 23:59 23:59 23:59 Intake Total 675.81 / 705.81 253.43 / 253.43 1000 / 1000 Output Total 850 / 950 225 / 725 500 / 500 Balance -174.19 / -244.19 28.43 / -471.57 500 / 500 Medical Nutrition Assessment Dietitian: Malnutrition Criteria Met Start: 09/01/24 10:45 Freq: Status: Active Protocol: Document 09/06/24 14:40 SB (Rec: 09/06/24 14:40 SB [id number]) Nutrition Malnutrition Evidence of Yes Malnutrition Exists Malnutrition (severe Chronic ): Evidenced By Suboptimal Energy Intake (Moderate),Weight Loss (Severe ),Physical Changes (Moderate) Intake Problem Increased Nutrient Needs (specify) Etiology protein and amino acids to support wound healing Signs/Symptoms as evidenced by R foot diabetic ulcer Status Active Problem Clinical Problem Chronic Disease or Condition Related Malnutrition Etiology severe protein-calorie malnutrition in the context of chronic disease and debility related to advanced age and inadequate energy intake Signs/Symptoms as evidenced by ~10-12% unintentional weight loss x past 3-4 months, BMI 19.9 and mild to moderate muscle wasting and fat depletion in the clavicle, orbitals and temporal regions; PO meeting less than 75% estimated nutrition needs Status Active Problem Recommendation Dietitian Recommend advanced diet as tolerated to liberalized Recommendations/ carbohydrate-controlled (no caloric restriction). Changes As diet is advanced, continue 4 oz glucerna shake 3 times per day w/ medpass and fruit punch flavored Darci 2 times per day with breakfast and dinner to support wound healing. Trend weights as available and optimize ONS to support weight stability and wound healing. Lab / Micro Data 09/10/24 04:45 09/10/24 04:45 Labs: Laboratory Results - last 24 hr 09/09/24 05:56: POC Glucose 199 H 09/09/24 10:40: APTT 55.7 H 09/09/24 13:04: POC Glucose 164 H 09/09/24 16:35: APTT 60.6 H 09/09/24 18:26: POC Glucose 193 H 09/10/24 00:29: POC Glucose 195 H 09/10/24 04:45: WBC 10.5, RBC 3.34 L, Hgb 9.4 L, Hct 29.4 L, MCV 88.0, MCH 28.1, MCHC 32.0, RDW Std Deviation 57.9 H, RDW Coeff of Kathy 18.2 H, Plt Count 295, MPV 11.1, Immature Gran % (Auto) 0.500, Neut % (Auto) 71.5 H, Lymph % (Auto) 17.6 L, [place] % (Auto) 9.1, Eos % (Auto) 1.1, Baso % (Auto) 0.2, Absolute Neuts (auto) 7.5, Absolute Lymphs (auto) 1.85, Nucleated RBC % 0.5, APTT 47.8 H, Sodium 142, Potassium 3.2 L, Chloride 110 H, Carbon Dioxide 22.5, Anion Gap 9, BUN 31 H, Creatinine 0.84, Estim Creat Clear Calc 41.66 L, Est GFR (MDRD) Non-Af 67, B UN/Creatinine Ratio 36.8 H, Glucose 203 H, Calcium 8.2 09/10/24 05:51: POC Glucose 182 H Micro: Microbiology 09/01/24 Unknown Bone - Great Toe Gram Stain - Final 09/01/24 Unknown Bone - Great Toe Wound Culture - Final Coag Negative Staph 09/01/24 Unknown Bone - Great Toe Anaerobic Culture - Final No anaerobic bacteria isolated. 08/27/24 11:35 Wound - Other Skin and Soft Tissue MRSA/MSSA (PCR - Final Physical Exam Const Constitutional Narrative: alert, conversive, calm HEENT normocephalic Face and Sinus: flattened naso-labial fold Laterality: Left Nose: external nose normal External Ear: external ears normal Resp normal respiratory effort, no retractions and no use of accessory muscles Cardio regular rate and regular rhythm Extremity Extremity Narrative: R groin incision site with Prevena dressing intact; no significant edema, ecchymosis; no drainage in canister; soft to palpation R leg incision sites satisfactory in appearance, dressings C/D/I without bleed- through. No apparent hematoma. Good signal through bypass and multiphasic at R DP, monophasic but strong R PT signal Skin no rashes or lesions noted Psych Attitude: calm Assessment & Plan Assessment/Plan (1) Peripheral vascular disease: PLAN: Incision sites and bypass satisfactory on exam; continue with offloading efforts to protect bypass along the R leg. Continue DAPT. Charges/Coding Procedures Integumentary 111xxx-[id number]: [id number] Global Visit
--- NOTE | 2024-09-10 16:34 | PCM.DC.SUM ---
Providers Date of Admission: 08/27/24 Primary Care Physician: Dr. 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 Routine Comment: Consult: Podiatry Routine Consulting Provider: Rohit Tiwari Reason for Consult: Diabetic foot EMERGENT Consult: No MD Notified: Yes Date Notified: 08/27/24 Time Notified: 10:39 Method of Notification: ED Physician Initiated Consult: Vascular Surgery Routine Consulting Provider: Keanu Mccray Reason for Consult: Peripheral arterial disease EMERGENT Consult: No Notified: Yes Date Notified: 08/28/24 Time Notified: 07:00 Method of Notification: Text 09/05/24 20:29 Consult: Tele-Neurology Routine Consulting Provider: [facility] Reason for Consult: Acute Ischemic Stroke/TIA EMERGENT Consult: Yes Notified: Yes Date Notified: 09/05/24 Time Notified: 20:29 Method of Notification: Verbal Nursing Unit Staff Notify [facility] of Tele-Neurology Consult: Yes 09/10/24 08:59 Consult: Hospice / Palliative Care Routine Consulting Provider: [facility] Reason for Consult: end of life care EMERGENT Consult: Yes Notified: Yes Date Notified: 09/10/24 Time Notified: 09:00 Method of Notification: Answering Service Reason For Visit: OSTEOMYELITIS Diagnosis Discharge Diagnosis (1) Peripheral vascular disease: Status: Acute Code(s): I73.9 - Peripheral vascular disease, unspecified Medications at Discharge Home Medications clopidogrel 75 mg tablet 75 mg PO DAILY platelet inhibitor 06/07/16 multivitamin 1 tab PO DAILY SUPPLEMENT 04/28/19 lisinopril 20 mg tablet 20 mg PO BID BP 01/01/21 metoprolol tartrate 25 mg tablet 25 mg PO TID BP 01/01/21 metformin 500 mg tablet,extended release 24 hr 500 mg PO BID DM 07/01/21 amlodipine 10 mg tablet 10 mg PO DAILY bp 11/12/23 aspirin 81 mg tablet,delayed release 81 mg PO DAILY@0800 Heart Health #0 tabs 05/16/24 nitroglycerin 0.4 mg sublingual tablet 0.4 mg sublingual Q5-15M PRN chest pain #25 tabs 07/27/24 acetaminophen 325 mg tablet 650 mg PO Q6H PRN PRN fever 08/27/24 doxycycline hyclate 100 mg tablet 100 mg PO BID 08/27/24 Hospital Course Operations - ( Amputation right hallux at interphalangeal joint with advancement flap closure, Right common femoral endarterectomy Right femoral to anterior tibial bypass with cadaver reverse great saphenous vein Right external iliac vein angioplasty and stent Right sartorius flap) Procedures None Summary of Care Provided Minutes Spent on Discharge: 48 Hospital Course: Per HPI: GENTRY COBB, is a 88 F with multiple comorbidities including diabetic foot ulceration involving the right big toe, peripheral arterial disease, coronary artery disease who presented to the emergency department with worsening pain involving the right great toe. Patient has had infection involving the right big toe since March 2024 and has been seen at the wound care center. Patient is scheduled to undergo revascularization on 09/05/[address] Mccray prior to amputation of the right big toe. Presented to the emergency department as stated above as a result of worsening pain. X-ray of the right foot obtained demonstrated findings suspicious for osteomyelitis involving the right great toe. Patient was found to have elevated lactic acid level however presentation was not consistent with sepsis. Was started on broad-spectrum antibiotic therapy admitted to regular nursing floor for further management Hospital Course: 1. Diabetic foot infection with a right first toe osteomyelitis status post amputation on 09/01/2024/PAD status post right common femoral endarterectomy with right femoral to anterior tibial bypass with right external iliac vein angioplasty and stent with a right sartorius flap on 09/05/2024 ? She has completed her antibiotic course ? ID has been consulted ? Wound cultures positive for MRSA ? PT/OT ? She received 2 units of blood yesterday 2. Acute CVA ? NIH has had continued to worsen she is now at a 16, repeat CT brain was negative for bleeding ? MRI with scattered small acute right sided supratentorial infarcts located in the frontal lobe as well as in the temporal and occipital lobe, the distribution suggested a watershed etiology ? She was deemed to not be a TNK candidate due to her recent major surgery ? PT/OT/speech ? Will not repeat an echocardiogram as she had one on 08/12/2024 ? Right coronary arteries are occluded and she has had a previous left endarterectomy ?Modified barium swallow showed significant dysfunction esophageal phase so she was maintained n.p.o. Over the last couple days more conversations were had with family about potential hospice however they want to wait till Thursday to see if we could repeat her modified barium swallow to make final decision ? This morning she was found to be severely hypotensive and family was called to discuss prognosis and to decide what they would like to be done, they elected to proceed with hospice care instead of transferring to the ICU for IV blood pressure support and pressors. She was made comfortable and hospice was called for evaluation. They have accepted patient to the inpatient unit and will be transferred this evening 3. Essential HTN/HLD/CAD status post stent/A-fib ? Continue with her home blood pressure medications ? Unfortunately she is allergic to statins due to myalgias ? Continue with aspirin and Plavix ? She did go into A-fib overnight, continue with Cardizem drip and the heparin drip 4. DM2 ? Continue with insulin ? Accu-Cheks ACHS ? Will monitor and make adjustments as necessary ? Will hold her home oral medications Physical Exam Narrative General: Alert but sleepy, cooperative, No apparent distress HEENT: Atraumatic, PERRLA, EOMI, Normocephalic Oral: Moist Mucosa Neck: Supple, No JVD Lungs: Diminished, Normal air movement, No rhonchi, No wheeze, No rales Cardiovascular: Regular rate, Regular Rhythm, Normal S1, Normal S2, No murmurs Abdomen: Soft, Non Tender, Non-Distended, No Hepato-splenomegaly Extremities: No edema, Capillary Refill Less than 3 Seconds Skin: Right great toe amputation site is currently dressed, CDI Musculoskeletal: No Tenderness to Palpation of Joints or Extremities Neurological: 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 She has extinction of her left side visually and is dysarthric, speech is worse Psych/Mental Status: Flat Medical Records Data Medical Nutrition Assessment Dietitian: Malnutrition Criteria Met Start: 09/01/24 10:45 Freq: Status: Active Protocol: Document 09/06/24 14:40 SB (Rec: 09/06/24 14:40 SB [id number]) Nutrition Malnutrition Evidence of Yes Malnutrition Exists Malnutrition (severe Chronic ): Evidenced By Suboptimal Energy Intake (Moderate),Weight Loss (Severe ),Physical Changes (Moderate) Intake Problem Increased Nutrient Needs (specify) Etiology protein and amino acids to support wound healing Signs/Symptoms as evidenced by R foot diabetic ulcer Status Active Problem Clinical Problem Chronic Disease or Condition Related Malnutrition Etiology severe protein-calorie malnutrition in the context of chronic disease and debility related to advanced age and inadequate energy intake Signs/Symptoms as evidenced by ~10-12% unintentional weight loss x past 3-4 months, BMI 19.9 and mild to moderate muscle wasting and fat depletion in the clavicle, orbitals and temporal regions; PO meeting less than 75% estimated nutrition needs Status Active Problem Recommendation Dietitian Recommend advanced diet as tolerated to liberalized Recommendations/ carbohydrate-controlled (no caloric restriction). Changes As diet is advanced, continue 4 oz glucerna shake 3 times per day w/ medpass and fruit punch flavored Darci 2 times per day with breakfast and dinner to support wound healing. Trend weights as available and optimize ONS to support weight stability and wound healing. Weight / BMI Weight Weight: 146 lb 2.664 oz Body Mass Index (BMI) 24.3 ABG / Lab / Microbiology Data 09/10/24 04:45 09/10/24 04:45 Laboratory: Laboratory Results - last 24 hr 09/09/24 16:35: APTT 60.6 H 09/09/24 18:26: POC Glucose 193 H 09/10/24 00:29: POC Glucose 195 H 09/10/24 04:45: WBC 10.5, RBC 3.34 L, Hgb 9.4 L, Hct 29.4 L, MCV 88.0, MCH 28.1, MCHC 32.0, RDW Std Deviation 57.9 H, RDW Coeff of Kathy 18.2 H, Plt Count 295, MPV 11.1, Immature Gran % (Auto) 0.500, Neut % (Auto) 71.5 H, Lymph % (Auto) 17.6 L, [place] % (Auto) 9.1, Eos % (Auto) 1.1, Baso % (Auto) 0.2, Absolute Neuts (auto) 7.5, Absolute Lymphs (auto) 1.85, Nucleated RBC % 0.5, APTT 47.8 H, Sodium 142, Potassium 3.2 L, Chloride 110 H, Carbon Dioxide 22.5, Anion Gap 9, BUN 31 H, Creatinine 0.84, Estim Creat Clear Calc 41.66 L, Est GFR (MDRD) Non-Af 67, BUN/Creatinine Ratio 36.8 H, Glucose 203 H, Calcium 8.2 09/10/24 05:51: POC Glucose 182 H Microbiology: Microbiology 09/01/24 Unknown Bone - Great Toe Gram Stain - Final 09/01/24 Unknown Bone - Great Toe Wound Culture - Final Coag Negative Staph 09/01/24 Unknown Bone - Great Toe Anaerobic Culture - Final No anaerobic bacteria isolated. 08/27/24 11:35 Wound - Other Skin and Soft Tissue MRSA/MSSA (PCR - Final D/C Instructions DC O2, CPAP, BIPAP Needs Home O2 Discharge instructions: No Meaningful Use Info Meaningful Use Meaningful Use Diagnoses (Choose all that apply): None applicable Ischemic Stroke Statin Dosing Therapy Reference: STATIN DOSE THERAPY REFERENCE: * Patients > 75 years receive moderate or high dose statin therapy. * Patients 75 years or YOUNGER should receive HIGH intensity statin dose unless contraindicated. You will be required to document reason for non-treatment if statin daily dose does not meet guidelines. HIGH DOSE STATIN THERAPY DAILY Atorvastatin > than or = to 40 mg Rosuvastatin > than or = to 20 mg Amlodipine + Atorvastatin > than or = to 2.5/40 mg Ezetimibe + Simvastatin 10/80 mg Simvastatin 80mg Discharge Plan Admission Admit Date/Time: 08/27/24 10:31 Attending Provider: Joe Jefferson Primary Care Provider: Mc Marks Consulting Providers: Ranjit Mei; Arely Marks; Noble Skaggs; Rohit Tiwrai; Donny Granados; Rogelio Rodrigez; Ree Ash; Desi Briceño; Namita,Kezia; Ellie,Samuel; Gente,Kayla; Rogers Beverly; Mert Solomon; Mickey Villafuerte; May Santos; Myke Issa; Charleen Royal; Cresencoi Tomas; Kenton Cole; Tyrone Wang; Leonardo Felix; Manoj Mcclelland; Kristyn Das; Azar Beckford; Keanu Mccray; Ranjit Gomez; Lindsey Mcintyre; Munira Canela; Ashli Andrea; Kareen Keen SERVICE DIRECTOR; Claudia Taylor Discharge Orders/Prescriptions Prescriptions: No Action multivitamin Tablet 1 tab PO DAILY metoprolol tartrate 25 mg tablet 25 mg PO TID lisinopril 20 mg tablet 20 mg PO BID metformin 500 mg tablet extended release 24 hr 500 mg PO BID nitroglycerin 0.4 mg tablet, sublingual 0.4 mg SUBLINGUAL Q5-15M PRN (Reason: chest pain) Qty: 25 3RF clopidogrel 75 MG tablet 75 mg PO DAILY amlodipine 10 mg tablet 10 mg PO DAILY aspirin 81 mg Tablet,Delayed Release (Dr/Ec) 81 mg PO DAILY@0800 Qty: 0 0RF acetaminophen 325 mg tablet 650 mg PO Q6H PRN PRN (Reason: fever) doxycycline hyclate 100 mg tablet 100 mg PO BID Patient Comments: start date- 08/29/24 end date- 09/08/24 Referrals / Follow Up: Mc Marks MD [Primary Care Provider] - Rohit Tiwari DPM [Med Staff - Active Staff] - Disposition Discharge Orders: Discharge Patient (Routine); Ordered 09/10/24 Ordered By: Dr. Joe Jefferson Charges/Coding Visit Charges Inpatient E&M: 76972 Disch Hosp >30min
== END 2024-09-10 17:02 | disposition hospice, inpatient (51) | DRG 616 ==
LOC: ED 10:49 → MS3 11:00 → ICU 09-05 18:46 → PCU 09-06 20:39
PROVIDERS: Anesthesiology; Family Medicine; Hospitalist; Internal Medicine; Internal Medicine Infectious Disease; Podiatrist; Surgery; Surgery Trauma Surgery; Admitting Provider Internal Medicine; Emergency Provider Emergency Medicine; PCP Family Medicine; Visit Provider Family Medicine
PROC: 0Y6P0Z3 Detachment at Right 1st Toe, Low, Open Approach (ICD-10-PCS; principal; 2024-09-01 11:45)
PROC: 04CK0ZZ Extirpation of Matter from Right Femoral Artery, Open Approach (ICD-10-PCS; principal; 2024-09-05 09:40)
DX: E11.621 Type 2 diabetes mellitus with foot ulcer (principal); E43 Unspecified severe protein-calorie malnutrition; I63.9 Cerebral infarction, unspecified; I70.261 Atherosclerosis of native arteries of extremities with gangrene, right leg; E87.21 Acute metabolic acidosis; E11.52 Type 2 diabetes mellitus with diabetic peripheral angiopathy with gangrene; G81.94 Hemiplegia, unspecified affecting left nondominant side; M86.272 Subacute osteomyelitis, left ankle and foot; M86.671 Other chronic osteomyelitis, right ankle and foot; Z66 Do not resuscitate; I48.91 Unspecified atrial fibrillation; D63.8 Anemia in other chronic diseases classified elsewhere; I10 Essential (primary) hypertension; I65.21 Occlusion and stenosis of right carotid artery; L97.514 Non-pressure chronic ulcer of other part of right foot with necrosis of bone; E11.42 Type 2 diabetes mellitus with diabetic polyneuropathy; E78.5 Hyperlipidemia, unspecified; I25.10 Atherosclerotic heart disease of native coronary artery without angina pectoris; Z79.4 Long term (current) use of insulin; E11.69 Type 2 diabetes mellitus with other specified complication; E11.628 Type 2 diabetes mellitus with other skin complications; I95.9 Hypotension, unspecified; I25.2 Old myocardial infarction; B95.62 Methicillin resistant Staphylococcus aureus infection as the cause of diseases classified elsewhere; L03.031 Cellulitis of right toe; R29.704 NIHSS score 4; R29.716 NIHSS score 16; R29.810 Facial weakness; R47.1 Dysarthria and anarthria; Z95.5 Presence of coronary angioplasty implant and graft; Z68.24 Body mass index [BMI] 24.0-24.9, adult; Z79.01 Long term (current) use of anticoagulants; Z79.02 Long term (current) use of antithrombotics/antiplatelets; Z79.82 Long term (current) use of aspirin; Z79.84 Long term (current) use of oral hypoglycemic drugs; Z79.899 Other long term (current) drug therapy; Z87.891 Personal history of nicotine dependence
CPT/HCPCS: 36415; 70450; 70496; 70498; 70551; 73551; 73630; 74230; 76000; 80048; 80061; 80202; 81001; 82962; 83036; 83605; 83735; 84100; 84443; 85014; 85018; 85025; 85027; 85610; 85730; 86850; 86900; 86901; 87070; 87075; 87186; 87205; 87640; 88304; 88305; 88311; 92526; 92610; 92611; 93005; 93880; 94668; 94762; 97110; 97162; 97167; 97530; 97535; 97802; 97803; 99252; 99284; A4648; C1769; C1894; P9016; Q9967; A4216; C1725; C1876; G0463; J0295; J2405